=== PATIENT | male | born 1970 | race Caucasian/White ===

== ENCOUNTER 2023-03-24 10:05 | Emergency (ER) | payer SELFPAY ==
[2023-03-24 10:15] VITALS: BP 170/81; PULSE 71; RESP 18; TEMP 36.8; O2SAT 99; BMI 37.1
--- NOTE | 2023-03-24 10:29 | ED.ABDPAIN1 ---
HPI - Abdominal Pain General Chief Complaint: Abdominal Pain Stated Complaint: ABDOMINAL PAIN Time Seen by Provider: 03/24/23 10:21 Source: patient Mode of arrival: walk-in History of Present Illness HPI narrative: this patient's here complaining of abdominal pain. He said he he's had it off and on for the last two days. He said the ride over here was uncomfortable but is sitting here in the Emergency Room he says he doesn't have any discomfort at all. He has not taken any analgesics prior to arrival here. He is not running a fever. 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 In the past he said he's been on B12 and thyroid medicines. He no longer has a primary care doctor. He has not seen blood in his stools in his stools are not black. He is not having any urinary problems as a burning frequency urgency or dysuria or hematuria. The discomfort has been be in the suprapubic and a little bit on the left lower quadrant. He's never had CT scan or colonoscopy. He has no history of diverticular disease. Related Data Home Medications Medication Instructions Recorded Confirmed No Known Home Medications 03/24/23 03/24/23 Allergies Allergy/AdvReac Type Severity Reaction Status Date / Time No Known Drug Allergies Allergy Verified 03/24/23 10:14 Exam Constitutional Vital Signs, click to edit/add: Last Vital Signs Temp 98.3 F 03/24/23 10:15 Pulse 71 03/24/23 10:15 Resp 18 03/24/23 10:15 BP 170/81 H 03/24/23 10:15 Pulse Ox 99 03/24/23 10:15 Course Vital Signs Vital signs: Vital Signs Temperature 98.3 F 03/24/23 10:15 Pulse Rate 71 03/24/23 10:15 Respiratory Rate 18 03/24/23 10:15 Blood Pressure 170/81 H 03/24/23 10:15 Pulse Oximetry 99 03/24/23 10:15 Temperature 98.3 F 03/24/23 10:15 Pulse Rate 71 03/24/23 10:15 Respiratory Rate 18 03/24/23 10:15 Blood Pressure 170/81 H 03/24/23 10:15 Pulse Oximetry 99 03/24/23 10:15 MDM - Abdominal Pain MDM Narrative Medical decision making narrative: patient's lab indicate white blood cell count at the upper limits of normal. His thyroid-stimulating hormone is substantially elevated. I emphasized the importance of him following up with a local primary care practitioner. I will start him on low-dose Synthroid. I believe his clinical diagnosis today is early diverticular disease. I do not believe he needs any imaging at this time since his exam was benign and quite frankly when he was here he did not have any pain. He was advised to be on a clear fluid diet for forty-eight hours Discharge Plan Discharge Chief Complaint: Abdominal Pain Clinical Impression: Abdominal pain Patient Disposition: Home, Self-Care Time of Disposition Decision: 11:57 Prescriptions / Home Meds: No Action No Known Home Medications Additional Instructions: Cipro/Flagyl/clear fluids forty-eight hours. Synthroid. Follow-up with primary care practitioner Stand Alone Forms: Portal Instructions Referrals: Physician,Non-Staff, MD [Primary Care Provider] - 1 week
[2023-03-24 11:00] LABS: Basophils Absolute Auto 0.1 10^3/uL (0.0-0.1); Basophils Percent Auto 0.6 % (0.2-2.0); Eosinophils Absolute Auto 0.2 10^3/uL (0.0-0.7); Eosinophils Percent Auto 1.8 % (0.9-7.0); Hematocrit 38.1 % (42.0-54.0); Hemoglobin 12.6 g/dL (14.0-18.0); Immature Granulocytes Abs Auto 0.04 10^3/uL (0.00-0.03); Immature Granulocytes Pct Auto 0.3 % (0.0-0.5); Lymphocytes Absolute Auto 2.1 10^3/uL (1.2-3.8); Lymphocytes Percent Auto 17.1 % (20.5-60.0); Mean Corpuscular HGB Conc 33.1 g/dL (29.9-35.2); Mean Corpuscular Hemoglobin 33.6 pg (25.9-34.0); Mean Corpuscular Volume 101.6 fL (80.0-94.0); Mean Platelet Volume 10.4 fL (9.5-13.5); Monocytes Absolute Auto 0.8 10^3/uL (0.3-0.8); Monocytes Percent Auto 6.9 % (1.7-12.0); Neutrophils Absolute Auto 8.9 10^3/uL (1.4-6.5); Neutrophils Percent Auto 73.3 % (43.0-75.0); Platelet Count 205 10^3/uL (150-450); Red Blood Count 3.75 10^6/uL (4.70-6.10); Red Cell Distribution Width 13.8 % (11.0-15.0); White Blood Count 12.1 10^3/uL (4.0-11.0)
[2023-03-24 12:08] LABS: Bilirubin Urine NEGATIVE (NEGATIVE); Blood Urine NEGATIVE (NEGATIVE); Clarity Urine CLEAR (CLEAR); Color Urine LT. YELLOW (YELLOW); Glucose Urine UA NEGATIVE (NEGATIVE); Ketones Urine NEGATIVE (NEGATIVE); Leukocyte Esterase Urine NEGATIVE (NEGATIVE); Nitrite Urine NEGATIVE (NEGATIVE); Protein Urine TRACE mg/dL (NEG/TRACE); Specific Gravity Urine 1.015 (1.005-1.025); Urobilinogen Urine 0.2 EU/dL (0.2-1.0); pH Urine 7.5 (5.0-9.0)
[2023-03-24 12:17] LABS: Urine Microscopic Indicated NO
== END 2023-03-24 12:04 | disposition home or self-care (01) ==
PROVIDERS: Emergency Provider Emergency Medicine Emergency Medical Services
DX: R10.9 Unspecified abdominal pain (principal)
CPT/HCPCS: 36415; 81003; 84443; 85025; 99283

== ENCOUNTER 2023-04-16 09:51 | Outpatient (OUT) | payer OTHER, SELFPAY ==
--- OUTSIDE RECORDS SUMMARY | 2023-04-16 09:58 | XMS_ITS | CCD ---
Author Name Unknown Address [address] [place] [address] Organization [facility] Care Team Providers Care Order Picker/Assembler Name Role Phone NADERER, LUIS ANTONIO A Unavailable Unavailable NADERER, LUIS ANTONIO A Unavailable Unavailable NADERER, LUIS ANTONIO A Unavailable Unavailable NADERER, LUIS ANTONIO A Unavailable Unavailable NADERER, LUIS ANTONIO A Unavailable Unavailable NADERER, LUIS ANTONIO A Unavailable Unavailable NADERER, LUIS ANTONIO A Unavailable Unavailable NADERER, LUIS ANTONIO A Unavailable Unavailable NADERER, LUIS ANTONIO A Unavailable Unavailable NADERER, LUIS ANTONIO A Unavailable Unavailable NADERER, LUIS ANTONIO A Unavailable Unavailable NADERER, LUIS ANTONIO A Unavailable Unavailable NADERER, LUIS ANTONIO A Unavailable Unavailable NADERER, LUIS ANTONIO A Unavailable Unavailable NADERER, LUIS ANTONIO A Unavailable Unavailable Problems Active Problems Problem Classification Problem Date Documented Da te Episodic/Chronic Malaise and fatigue (4 sources) Other fatigue; Translations: [OTHER FATIGUE] Onset: 01-02-2018 Episodic Residual codes; unclassified (1 source) Idiopathic hypersomnia with long sleep time; Translations: [IDIO HYPERSOMNIA W/LONG SLEEP TIME] Onset: 10-03-2017 Chronic Residual codes; unclassified (4 sources) Obstructive sleep apnea (adult) (pediatric); Translations: [OBSTRUCTIVE SLEEP APNEA] Onset: 10-26-2017 Chronic Thyroid disorders (5 sources) Hypothyroidism, unspecified; Translations: [HYPOTHYROIDISM UNSPECIFIED] Onset: 01-10-2018 Chronic Past or Other Problems Problem Classification Problem Date Documented Da te Episodic/Chronic Other screening for suspected conditions (not mental disorders or infectious disease) (1 source) Encounter for screening for malignant neoplasm of prostate; Translations: [ENC SCREEN MALIG NEOPLASM PROSTATE] Onset: 09-15-2017 Episodic Results Test Name Value Interpretation Reference Range Facil ity FREE T3on 03-15-2018 T3 free mass conc 3.10 pg/mL Normal 2.77-5.27 [facility] Comment on above: Performed By: #### B MP, LIVER, FT3, LIPID, PSASC, TSH, DLDL ####[facility] Jvntgojvto74[address] [place] FREE T4on 03-15-2018 T4 free mass conc 0.88 ng/dL Normal 0.78-2.19 [facility] Comment on above: Performed By: #### B MP, LIVER, FT3, LIPID, PSASC, TSH, DLDL ####[facility] Dwidblpsti9258 [address] [place] TSHon 03-15-2018 Thyrotropin Qn 7.705 uIU/mL Critically high 0.470-4.680 Th e [facility] Comment on above: Performed By: #### B MP, LIVER, FT3, LIPID, PSASC, TSH, DLDL ####[facility] Xwrmshyckd6188 [address] Thyrotropin Qn SEE BELOW Normal [facility] Comment on above: Result Comment: <0.3 4 UIU/ml HYPERTHYROID 0.34-5.60 UIU/ml EUTHYROID >5.60 UIU/ml HYPOTHYROID Performed By: #### B MP, LIVER, FT3, LIPID, PSASC, TSH, DLDL ####[facility] Ghkmtpqmyk1724 [address] [place] TESTOSTERONE, TOTALon 2017 Testosterone [Mass/volume] in Serum or Plasma 314 ng/dL Normal 264-916 [facility] Comment on above: Result Comment: Adul t male reference interval is based on a population ofhealthy nonobese males (BMI <30) between 19 and 39 years old.Mildred et.al. JCEM 2017,102;9576-1057. PMID: [id number]. Performed By: #### B MP, LIVER, FT3, LIPID, PSASC, TSH, DLDL ####[facility] Idjnodjnje2290 [address] [place] FREE T3on 01-02-2018 T3 free mass conc 2.98 pg/mL Normal 2.77-5.27 [facility] Comment on above: Performed By: #### B MP, LIVER, FT3, LIPID, PSASC, TSH, DLDL ####[facility] Iosidlvqqu9863 [address] [place] FREE T4on 01-02-2018 T4 free mass conc 0.89 ng/dL Normal 0.78-2.19 [facility] Comment on above: Performed By: #### B MP, LIVER, FT3, LIPID, PSASC, TSH, DLDL ####[facility] Xjfdvtxopu0350 [address] [place] TSHon 01-02-2018 Thyrotropin Qn 5.999 uIU/mL Critically high 0.470-4.680 Th e [facility] Comment on above: Performed By: #### B MP, LIVER, FT3, LIPID, PSASC, TSH, DLDL ####[facility] [address] [place] [address] [place] Thyrotropin Qn SEE BELOW Normal [facility] Comment on above: Result Comment: <0.3 4 UIU/ml HYPERTHYROID 0.34-5.60 UIU/ml EUTHYROID >5.60 UIU/ml HYPOTHYROID Performed By: #### B MP, LIVER, FT3, LIPID, PSASC, TSH, DLDL ####[facility] [address] [place] [address] [place] CBC AUTO DIFFon 09-14-2017 Basophils Auto #/vol (Bld) 0.1 103/ul Normal 0.0-0.1 [facility] Comment on above: Performed By: #### C BC ####[facility] [address] [place] [address] [place] Basophils/100 WBC Auto (Bld) 0.8 % Normal 0.2-2.0 [facility] Comment on above: Performed By: #### C BC ####[facility] [address] [place] [address] [place] Eosinophils Auto #/vol (Bld) 0.1 103/ul Normal 0.0-0.7 [facility] Comment on above: Performed By: #### C BC ####[facility] Feklerbeze[address] [place] [id number] Eosinophils/100 WBC Auto (Bld) 1.4 % Normal 0.9-7.0 The [facility] Comment on above: Performed By: #### C BC ####[facility] [address] [place], [place] [address] Erythrocyte distribution width Auto Ratio (RBC) 13.2 % Normal 11.0-15.0 The [facility] Comment on above: Performed By: #### C BC ####[facility] Zrigx[address]edb[address] [place], [place] [address] Hematocrit Auto Volume Fraction (Bld) 43.7 % Normal 42.0-54.0 [facility] Comment on above: Performed By: #### C BC ####[facility] Whgkdvdqoc[address] [place], [place] [address] Hemoglobin mass conc (Bld) 15.2 g/dL Normal 14.0-18.0 The [facility] Comment on above: Performed By: #### C BC ####[facility] M[address]fh[address]zl[address] [place], [place] [address] IG # 0.05 10e3/ul Critically high 0.00-0.03 [facility] Comment on above: Performed By: #### C BC ####[facility] Lw[address]fsx[address] [place], [place] [address] IG % 0.7 % Critically high 0.0-0.5 [facility] Comment on above: Performed By: #### C BC ####[facility] Izkolakhyd[address] [place], [place] [address] Lymphocytes Auto #/vol (Bld) 1.7 103/ul Normal 1.2-3.8 The [facility] Comment on above: Performed By: #### C BC ####[facility] Vp[address]az[address]jx[address] [place], [place] [address] Lymphocytes/100 WBC Auto (Bld) 23.7 % Normal 20.5-60.0 The [facility] Comment on above: Performed By: #### C BC ####[facility] Zrlzcodqfi4268 [place] [id number] MANUAL DIFF REQ NO Normal [facility] Comment on above: Performed By: #### C BC ####[facility] Ypqldwpmnz4323 [place] [id number] MCH Auto Entitic mass (RBC) 33.8 pg Normal 25.9-34.0 The [facility] Comment on above: Performed By: #### C BC ####[facility] Lvaan[address] [place], [place] [address] MCHC Auto mass conc (RBC) 34.8 g/dL Normal 29.9-35.2 The [facility] Comment on above: Performed By: #### C BC ####[facility] Q[address]em[address] [place], [place] [address] MCV Auto Entitic volume (RBC) 97.1 fL Critically high 80.0-94.0 The [facility] Comment on above: Performed By: #### C BC ####[facility] Cq[address]cu[address] [place], [place] [address] Monocytes Auto #/vol (Bld) 0.5 103/ul Normal 0.3-0.8 The [facility] Comment on above: Performed By: #### C BC ####[facility] Y[address] [place], [place] [address] Monocytes/100 WBC Auto (Bld) 7.0 % Normal 1.7-12.0 The [facility] Comment on above: Performed By: #### C BC ####[facility] Xxexxfdfks[address] [place], [place] [address] Neutrophils Auto #/vol (Bld) 4.7 103/ul Normal 1.4-6.5 The [facility] Comment on above: Performed By: #### C BC ####[facility] Qtw[address]ix[address] [place], [place] [address] Neutrophils/100 WBC Auto (Bld) 66.4 % Normal 43.0-75.0 The [facility] Comment on above: Performed By: #### C BC ####[facility] Nsdcvqxqbb6996 [place], [place] [address]Eufpuy [place] Platelet mean volume Auto Entitic volume (Bld) 10.7 fL Normal 9.5-13.5 The [facility] Comment on above: Performed By: #### C BC ####[facility] Mvomeinyeg2677 [place], [place] [address]Qyaouf [place] Platelets Auto #/vol (Bld) 223 103/ul Normal 150-450 The [facility] Comment on above: Performed By: #### C BC ####[facility] Armeqfsoxg1387 [place], [place] [address]Njcnun [place] RBC Auto #/vol (Bld) 4.50 106/ul Critically low 4.70-6.10 The [facility] Comment on above: Performed By: #### C BC ####[facility] [address] [place] [address]Rcpzzi [place] WBC Auto #/vol (Bld) 7.1 103/ul Normal 4.0-11.0 [facility] Comment on above: Performed By: #### C BC ####[facility] Vnvprwbjnu4130 [place], [place] [address]Lszbgs [place] DIRECT LDLon 09-14-2017 Cholesterol in LDL mass conc SEE BELOW Normal The [facility] Comment on above: Result Comment: <100 mg/dl OPTIMAL 100 - 129 mg/dl NEAR OR ABOVE OPTIMAL 130 - 159 mg/dl BORDERLINE HIGH 160 - 189 mg/dl HIGH >190 mg/dl VERY HIGH Performed By: #### B MP, LIVER, FT3, LIPID, PSASC, TSH, DLDL ####[facility] Idzwuhhuip6030 [place], [place] [address]Kkphvb [place] Cholesterol in LDL mass conc 45 mg/dL Normal The [facility] Comment on above: Performed By: #### B MP, LIVER, FT3, LIPID, PSASC, TSH, DLDL ####[facility] Mjbcblsuve3332 [place], [place] [address]Refabl [place] FREE T3on 09-14-2017 T3 free mass conc 4.33 pg/mL Normal 2.77-5.27 [facility] Comment on above: Performed By: #### B MP, LIVER, FT3, LIPID, PSASC, TSH, DLDL ####[facility] Qvbjurwlye1062 [address] [place] FREE T4on 09-14-2017 T4 free mass conc 0.67 ng/dL Critically low 0.78-2.19 [facility] Comment on above: Performed By: #### F T4 ####[facility] Ubzvftvhpv4325 [address] [place] GLYCOHEMOGLOBIN A1Con 2017 Glucose mass conc 108 mg/dL Normal [facility] Comment on above: Performed By: #### A 1C ####[facility] Uqpsmbxxqh4[address] Hemoglobin A1c/Hemoglobin.total mass fraction (Bld) 5.4 % Normal <=6.0 [facility] Comment on above: Performed By: #### A 1C ####[facility] [address] [place] [address] [place] LIPID PROFILEon 09-14-2017 CHOL-HDL RATIO NORM SEE BELOW Normal [facility] Comment on above: Result Comment: 3.3 - 4.4 LOW RISK 4.4 - 7.1 AVERAGE RISK 7.1 - 11.0 MODERATE RISK >11.0 HIGH RISK Performed By: #### B MP, LIVER, FT3, LIPID, PSASC, TSH, DLDL ####[facility] Ytmqtmyyuf4834 [address] [place] Cholesterol in HDL mass conc 34 mg/dL Normal [facility] Comment on above: Result Comment: A po sitive bias may be seen with a triglyceride level over 600 mg/dL Performed By: #### B MP, LIVER, FT3, LIPID, PSASC, TSH, DLDL ####[facility] Anxgthhwkt0899 [address] [place] Cholesterol in HDL mass conc > or = 60 mg/dl - LOW CARDIOVASCULAR RISK <40 mg/dl - HIGH CARDIOVASCULAR RISK Normal [facility] Comment on above: Performed By: #### B MP, LIVER, FT3, LIPID, PSASC, TSH, DLDL ####[facility] Qqihounggm2386 [place] [id number] Cholesterol mass conc 199 mg/dL Normal <=200 The [facility] Comment on above: Performed By: #### B MP, LIVER, FT3, LIPID, PSASC, TSH, DLDL ####[facility] Ftdthztxyb9668 [place] [id number] Cholesterol.total/Cho lesterol in HDL mass ratio 6.0 {ratio} Normal [facility] Comment on above: Performed By: #### B MP, LIVER, FT3, LIPID, PSASC, TSH, DLDL ####[facility] Tysigmkvgk6811 [address] [place] Triglyceride mass conc 1177 mg/dL Critically high <=150 The [facility] Comment on above: Performed By: #### B MP, LIVER, FT3, LIPID, PSASC, TSH, DLDL ####[facility] Qzuydhyhra4011 [address] [place] LIVER PROFILEon 09-14-2017 Albumin mass conc 4.6 g/dL Normal 3.5-5.0 [facility] Comment on above: Performed By: #### B MP, LIVER, FT3, LIPID, PSASC, TSH, DLDL ####[facility] Elcppmvnal2888 [address] [place] Albumin/Globulin mass ratio 1.5 {ratio} Normal [facility] Comment on above: Performed By: #### B MP, LIVER, FT3, LIPID, PSASC, TSH, DLDL ####[facility] Bivnzjgavk3171 [address] [place] ALP enzyme act/vol 66 U/L Normal 38-126 The [facility] Comment on above: Performed By: #### B MP, LIVER, FT3, LIPID, PSASC, TSH, DLDL ####[facility] Oojytegcxc2033 [address] [place] ALT enzyme act/vol 66 U/L Normal 21-72 [facility] Comment on above: Performed By: #### B MP, LIVER, FT3, LIPID, PSASC, TSH, DLDL ####[facility] Zzuaygucie7285 [address] [place] AST enzyme act/vol 48 U/L Normal 17-59 The [facility] Comment on above: Performed By: #### B MP, LIVER, FT3, LIPID, PSASC, TSH, DLDL ####[facility] Wrwawqvtmg4670 [address] [place] BILI, CONJUGATED 0.0 mg/dL Normal 0.0-0.3 The [facility] Comment on above: Performed By: #### B MP, LIVER, FT3, LIPID, PSASC, TSH, DLDL ####[facility] Kpoegkwweg6571 [address] [place] Bilirubin Ql (U) 0.3 mg/dL Normal 0.2-1.3 The [facility] Comment on above: Performed By: #### B MP, LIVER, FT3, LIPID, PSASC, TSH, DLDL ####[facility] Owxkhmzweq1948 [address] [place] Globulin Calculated mass conc (S) 3.1 g/dL Normal [facility] Comment on above: Performed By: #### B MP, LIVER, FT3, LIPID, PSASC, TSH, DLDL ####[facility] Jgyqhxouek1293 [address] [place] Protein mass conc 7.7 g/dL Normal 6.1-8.2 [facility] Comment on above: Performed By: #### B MP, LIVER, FT3, LIPID, PSASC, TSH, DLDL ####[facility] Izlroivhqj8893 [address] [place] PROF CHEM 8 (BAS METB)on Anion gap 3 molar conc 10.0 mmol/L Normal [facility] Comment on above: Performed By: #### B MP, LIVER, FT3, LIPID, PSASC, TSH, DLDL ####[facility] Apwtmzurky9392 [address] [place] Calcium mass conc 9.6 mg/dL Normal 8.4-10.2 [facility] Comment on above: Performed By: #### B MP, LIVER, FT3, LIPID, PSASC, TSH, DLDL ####[facility] Pshmdvajfa2300 [address] [place] Chloride molar conc 104 mmol/L Normal 98-107 [facility] Comment on above: Performed By: #### B MP, LIVER, FT3, LIPID, PSASC, TSH, DLDL ####[facility] Obaimbengc8024 [address] [place] CO2 molar conc 25.0 mmol/L Normal 22.0-30.0 [facility] Comment on above: Performed By: #### B MP, LIVER, FT3, LIPID, PSASC, TSH, DLDL ####[facility] Rhrrzgsbrj7660 [address] [place] Creatinine mass conc 0.96 mg/dL Normal 0.66-1.25 The [facility] Comment on above: Performed By: #### B MP, LIVER, FT3, LIPID, PSASC, TSH, DLDL ####[facility] Ykcovhnsty9665 [address] [place] EGFR-AF LITHUANIAN >60 Normal >=60 The [facility] Comment on above: Performed By: #### B MP, LIVER, FT3, LIPID, PSASC, TSH, DLDL ####[facility] Aawgmjxtdn1770 [address] [place] EGFR-NON AF LITHUANIAN >60 Normal >=60 [facility] Comment on above: Performed By: #### B MP, LIVER, FT3, LIPID, PSASC, TSH, DLDL ####[facility] Ahhvpxrjmr9219 [address] [place] Glucose mass conc 97 mg/dL Normal 74-106 [facility] Comment on above: Performed By: #### B MP, LIVER, FT3, LIPID, PSASC, TSH, DLDL ####[facility] Rsasqzgbbs5222 [address] [place] Potassium molar conc 4.2 mmol/L Normal 3.4-5.0 [facility] Comment on above: Performed By: #### B MP, LIVER, FT3, LIPID, PSASC, TSH, DLDL ####[facility] Qvfwkxrkch0541 [place], [place] [address]RgnuykArpit Colindres Sodium molar conc 135 mmol/L Critically low 137-145 [facility] Comment on above: Performed By: #### B MP, LIVER, FT3, LIPID, PSASC, TSH, DLDL ####[facility] Tzveunhltw8748 [place] [id number] Marroquinen Urea nitrogen mass conc 14.0 mg/dL Normal 9.0-20.0 [facility] Comment on above: Performed By: #### B MP, LIVER, FT3, LIPID, PSASC, TSH, DLDL ####[facility] Gsdnfnbvai1285 [place] [address] [place] Urea nitrogen/Creatinine mass ratio 14.8 mg/mg Normal [facility] Comment on above: Performed By: #### B MP, LIVER, FT3, LIPID, PSASC, TSH, DLDL ####[facility] Rsascmgibj8441 [place], [place] [address]IdjxmaArpit Colindres TSHon 09-14-2017 Thyrotropin Qn SEE BELOW Normal [facility] Comment on above: Result Comment: <0.3 4 UIU/ml HYPERTHYROID 0.34-5.60 UIU/ml EUTHYROID >5.60 UIU/ml HYPOTHYROID Performed By: #### B MP, LIVER, FT3, LIPID, PSASC, TSH, DLDL ####[facility] Feaglonwod3307 [place], [place] [address]Xfancm [place] Thyrotropin Qn 6.140 uIU/mL Critically high 0.470-4.680 Th e [facility] Comment on above: Performed By: #### B MP, LIVER, FT3, LIPID, PSASC, TSH, DLDL ####[facility] Vzihvibswh8187 [place], [place] [address]NrulpkArpit Colindres Encounters Encounter Date Encounter Type Care Provider Facility Start: 03-15-2018 End: 03-16-2018 Patient encounter procedure LUIS ANTONIO HERNANDEZ Facility:[facility]1 Start: 01-02-2018 End: 01-03-2018 [facility] Start: 10-26-2017 End: 10-27-2017 Patient encounter procedure LUIS ANTONIO HERNANDEZ Facility:[facility] Start: 09-27-2017 End: 09-28-2017 Patient encounter [facility] Start: 09-15-2017 Encounter for genera l adult medical examination without abnormal findings [facility] Start: 09-14-2017 End: 09-15-2017 Patient [facility] Encounter for genera l adult medical examination without abnormal findings LUIS ANTONIO [facility] Procedures Date Procedure Procedure Detail Performing Clinician Start: 09-14-2017 PSA screening LUIS ANTONIO MEGAN JOJO Comment on above: Performed By: #### B MP, LIVER, FT3, LIPID, PSASC, TSH, DLDL ####[facility] [address]azuybdlp[address] [place], [place] [address] [place] [address] Payers Date Payer Category Payer Unknown [id number] [id number] [id number] 1970 Unknown [id number] .16.84 [id number] 1970 Unknown [id number] .16.84 [id number] 1970 Unknown [id number] .16.84 [id number] 1970 Unknown [id number] .16.84 [id number] 1959 Unknown [id number] Summary Purpose Family History No Family History Records Found Advance Directives No Advanced Directives Records Found Additional Source Comments (unrecognized sect ion and content) No Status Records Found INFORMATION SOURCE (unrecogn ized section and content) DATE CREATED AUTHOR 03/21/2018 The [facility] FOR RECORDS PERTAINING TO PATIENTS WHO ARE OR HAVE BEEN ENROLLED IN A CHEMICAL DEPENDENCY/SUBSTANCEABUSE PROGRAM, SOME INFORMATION MAY BE OMITTED. This clinical summary was aggregated from multiple sources. Caution should be exercised in using it in the provision of clinical care. This summary normalizes information from multiple sources, and as a consequence, information in this document may materially change the coding, format and clinical context of patient data. In addition, data may be omitted in some cases. CLINICAL DECISIONS SHOULD BE BASED ON THE PRIMARY CLINICAL RECORDS. [facility] [employer] [facility]. provides no warranty or guarantee of the accuracy or completeness of information in this document.
[2023-04-16 10:19] LABS: Basophils Absolute Auto 0.1 10^3/uL (0.0-0.1); Basophils Percent Auto 1.2 % (0.2-2.0); Eosinophils Absolute Auto 0.1 10^3/uL (0.0-0.7); Eosinophils Percent Auto 2.8 % (0.9-7.0); Hematocrit 40.4 % (42.0-54.0); Hemoglobin 13.5 g/dL (14.0-18.0); Immature Granulocytes Abs Auto 0.01 10^3/uL (0.00-0.03); Immature Granulocytes Pct Auto 0.2 % (0.0-0.5); Lymphocytes Absolute Auto 1.6 10^3/uL (1.2-3.8); Lymphocytes Percent Auto 30.8 % (20.5-60.0); Mean Corpuscular HGB Conc 33.4 g/dL (29.9-35.2); Mean Corpuscular Volume 98.8 fL (80.0-94.0); Mean Platelet Volume 10.3 fL (9.5-13.5); Monocytes Absolute Auto 0.4 10^3/uL (0.3-0.8); Monocytes Percent Auto 7.1 % (1.7-12.0); Neutrophils Percent Auto 57.9 % (43.0-75.0); Platelet Count 205 10^3/uL (150-450); Red Blood Count 4.09 10^6/uL (4.70-6.10); Red Cell Distribution Width 13.2 % (11.0-15.0); White Blood Count 5.1 10^3/uL (4.0-11.0)
[2023-04-16 11:59] LABS: Alanine Aminotransferase 49 U/L (16-63); Albumin Globulin Ratio 1.1; Albumin Level 4.1 g/dL (3.4-5.0); Alkaline Phosphatase 49 U/L (46-116); Anion Gap 9.7; Aspartate Amino Transferase 33 U/L (15-37); BUN Creatinine Ratio 14.6; Bilirubin Total 0.5 mg/dL (0.2-1.0); Calcium 9.7 mg/dL (8.5-10.1); Carbon Dioxide 27.2 mmol/L (21.0-32.0); Chloride 100 mmol/L (98-107); Chol HDL Ratio 5.2; Cholesterol 177 mg/dL (<=200); Estimated GFR (African America >60 (>=60); Estimated GFR (Non-African Ame >60 (>=60); Globulin 3.9 g/dL; Glucose 124 mg/dL (74-106); HDL Cholesterol 34 mg/dL (40-60); Potassium 3.9 mmol/L (3.5-5.1); Sodium 133 mmol/L (136-145); Thyroid Stimulating Hormone 13.088 uIU/mL (0.358-3.740); Triglycerides 555 mg/dL (<=150); Uric Acid 6.8 mg/dL (3.5-7.2)
[2023-04-16 12:14] LABS: Estimated Average Glucose 123 mg/dL; Glycohemoglobin A1C 5.9 % (4.5-6.2)
[2023-04-16 12:18] LABS: LDL Cholesterol Direct 55 mg/dL
[2023-04-16 12:34] LABS: Prostate Specific Antigen Scrn 0.33 ng/mL (<=4.00)
[2023-04-17 13:07] LABS: Insulin 16.9 uIU/mL (2.6-24.9)
== END 2023-04-16 09:52 | disposition home or self-care (01) ==
LOC: LAB 09:56
PROVIDERS: PCP Nurse Practitioner Family; Visit Provider Nurse Practitioner Family
DX: Z00.00 Encounter for general adult medical examination without abnormal findings (principal)
CPT/HCPCS: 36415; 80053; 80061; 82306; 82607; 83036; 83525; 83721; 84436; 84443; 84481; 84550; 85025; G0103

== ENCOUNTER 2024-04-17 10:18 | Outpatient (OUT) | payer OTHER, SELFPAY ==
[2024-04-17 10:30] LABS: Estimated Average Glucose 128 mg/dL; Glycohemoglobin A1C 6.1 % (4.5-6.2)
--- NOTE | 2024-04-17 10:35 | XR_ITS ---
The [address] [address] Patient Name: TATE ENCARNACION MRN: [id number] date: 1970 Sex: M Assigned Patient Location: LAB Current Patient Location: LAB Accession/Order Number: [id number] Exam Date: 04/17/2024 10:25 Report Date: 04/17/2024 15:32 At the request of: NEW [place] Procedure: XR hand RT min 3V EXAM: XR knee LT 3V, XR hand RT min 3V. HISTORY: Left knee pain. COMPARISON: None. TECHNIQUE: Routine views were obtained for left knee and right hand. FINDINGS/IMPRESSION: Left knee: 1. No acute fracture or subluxation. 2. There is mild fragmentation of the tibial tubercle. 3. Mild soft tissue swelling is seen anterior to the patella. Right hand: 1. There is moderate polyarticular osteoarthritis seen at the radiocarpal, first carpometacarpal, metacarpophalangeal and the interphalangeal joints. 2. No acute fracture or subluxation is seen. 3. There are no obvious erosive changes. Electronically authenticated by: MIKEY QUIÑONES Date: 04/17/2024 15:32
--- NOTE | 2024-04-17 10:35 | XR_ITS ---
The [address] [address] Patient Name: TATE ENCARNACION MRN: [id number] date: 1970 Sex: M Assigned Patient Location: LAB Current Patient Location: LAB Accession/Order Number: [id number] Exam Date: 04/17/2024 10:25 Report Date: 04/17/2024 15:32 At the request of: NEW GARRISON Procedure: XR knee LT 3V EXAM: XR knee LT 3V, XR hand RT min 3V. HISTORY: Left knee pain. COMPARISON: None. TECHNIQUE: Routine views were obtained for left knee and right hand. FINDINGS/IMPRESSION: Left knee: 1. No acute fracture or subluxation. 2. There is mild fragmentation of the tibial tubercle. 3. Mild soft tissue swelling is seen anterior to the patella. Right hand: 1. There is moderate polyarticular osteoarthritis seen at the radiocarpal, first carpometacarpal, metacarpophalangeal and the interphalangeal joints. 2. No acute fracture or subluxation is seen. 3. There are no obvious erosive changes. Electronically authenticated by: MIKEY QUIÑONES Date: 04/17/2024 15:32
[2024-04-17 10:38] LABS: Basophils Absolute Auto 0.1 10^3/uL (0.0-0.1); Basophils Percent Auto 0.9 % (0.2-2.0); Eosinophils Absolute Auto 0.2 10^3/uL (0.0-0.7); Eosinophils Percent Auto 3.5 % (0.9-7.0); Hematocrit 40.6 % (42.0-54.0); Hemoglobin 15.2 g/dL (14.0-18.0); Immature Granulocytes Abs Auto 0.01 10^3/uL (0.00-0.03); Immature Granulocytes Pct Auto 0.2 % (0.0-0.5); Lymphocytes Absolute Auto 1.7 10^3/uL (1.2-3.8); Lymphocytes Percent Auto 29.4 % (20.5-60.0); Mean Corpuscular HGB Conc 37.4 g/dL (29.9-35.2); Mean Corpuscular Hemoglobin 37.3 pg (25.9-34.0); Mean Corpuscular Volume 99.5 fL (80.0-94.0); Mean Platelet Volume 10.3 fL (9.5-13.5); Monocytes Absolute Auto 0.4 10^3/uL (0.3-0.8); Monocytes Percent Auto 6.6 % (1.7-12.0); Neutrophils Absolute Auto 3.5 10^3/uL (1.4-6.5); Neutrophils Percent Auto 59.4 % (43.0-75.0); Platelet Count 232 10^3/uL (150-450); Red Blood Count 4.08 10^6/uL (4.70-6.10); White Blood Count 5.8 10^3/uL (4.0-11.0)
[2024-04-17 11:18] LABS: Prostate Specific Antigen Scrn 0.22 ng/mL (<=4.00)
[2024-04-17 11:50] LABS: Cholesterol 301 mg/dL (<=200); Free T3 2.15 pg/mL (2.18-3.98); HDL Cholesterol 27 mg/dL (40-60); Thyroid Stimulating Hormone 27.573 uIU/mL (0.358-3.740); Triglycerides 3317 mg/dL (<=150); VLDL CHOLESTEROL 663.4 mg/dL
[2024-04-17 11:56] LABS: Chol HDL Ratio 11.1
[2024-04-17 11:57] LABS: LDL Cholesterol Direct 49 mg/dL
[2024-04-18 04:08] LABS: Vitamin B12 606 pg/mL (232-1245)
[2024-04-18 08:09] LABS: Insulin 15.6 uIU/mL (2.6-24.9)
== END 2024-04-17 10:19 | disposition home or self-care (01) ==
LOC: LAB 10:18
PROVIDERS: PCP Nurse Practitioner Family; Visit Provider Nurse Practitioner Family
DX: Z00.00 Encounter for general adult medical examination without abnormal findings (principal); M79.641 Pain in right hand; M25.562 Pain in left knee; M25.462 Effusion, left knee; M19.041 Primary osteoarthritis, right hand; E78.5 Hyperlipidemia, unspecified
CPT/HCPCS: 36415; 73130; 73562; 80053; 80061; 82306; 82607; 83036; 83525; 83540; 83721; 84436; 84443; 84481; 84550; 85025; G0103

== ENCOUNTER 2024-04-18 11:09 | Outpatient (REF) | payer OTHER, SELFPAY ==
[2024-04-18 14:23] LABS: Internal Control Within Normal Limits; Occult Blood Negative
== END 2024-04-18 11:10 | disposition home or self-care (01) ==
LOC: LAB 11:09
PROVIDERS: PCP Nurse Practitioner Family; Visit Provider Nurse Practitioner Family
DX: Z00.00 Encounter for general adult medical examination without abnormal findings (principal)
CPT/HCPCS: G0328

== ENCOUNTER 2024-05-08 08:45 | Outpatient (OUT) | payer OTHER, SELFPAY ==
--- NOTE | 2024-05-08 08:48 | MR_ITS ---
The [address] [address] Patient Name: TATE ENCARNACION MRN: [id number] date: 1970 Sex: M Assigned Patient Location: MRI Current Patient Location: MRI Accession/Order Number: [id number] Exam Date: 05/08/2024 09:00 Report Date: 05/08/2024 12:59 At the request of: NEW GARRISON Procedure: MR head/brain wo con EXAM: MR head/brain wo con HISTORY: Migraine COMPARISON: None. TECHNIQUE: Multiplanar multisequence MR imaging of the brain was performed without intravenous contrast. FINDINGS: Calvarium/skull base: No focal marrow replacing lesion suggestive of neoplasm. Partial bilateral mastoid effusions. Orbits: Grossly unremarkable. Paranasal sinuses: Imaged portions clear Brain: No restricted diffusion. No significant white matter disease. Cavum septum lucidum. Parenchymal volume is appropriate for patient's age. No mass effect, hemorrhage, or hydrocephalus. Grossly normal flow-related signal in the major intracranial arteries and dural sinuses. MR/MR head/brain wo con IMPRESSION: 1. No acute intracranial process. 2. Nonspecific partial bilateral mastoid effusions. Electronically authenticated by: EDUARDO GREEN Date: 05/08/2024 12:59
--- OUTSIDE RECORDS SUMMARY | 2024-05-08 08:55 | XMS_ITS | CCD ---
Author Organization [facility] CliniSyin Care Team Providers Care Order Processor Name Role Phone NADERER, LUIS ANTONIO A [...] Unavailable NADERER, LUIS ANTONIO A Unavailable Unavailable NEW GARRISON Primary Care Physician [phone] Alejandra Hayden Admitting Unavailable Mouchli Mohamad ADo Attending Unavailable Mouchli Mohamad A. Attending Unavailable Mouchli, Mohamad ADo Admitting Unavailable Mouchli, Mohamad ADo Admitting Unavailable Mouchli Mohamad A. Attending Unavailable González Sutton Attending Unavaila ble Teena Haydenamad A. Attending Unavailable Mouchli, Mohamad ADo Referring Unavailable Ji SIMON Attending Unavailable Mouchli Mohamad ADo Attending Unavailable Mouchli, Mohamad ADo Referring Unavailable Mouchli Mohamad ADo Admitting Unavailable Ji SIMON Attending Unavailable Allergies Allergy Classification Reported Allergen(s) Allergy Type Date of Onset Reaction(s) Facility (4 sources) No Known Medication Allergies; Translations: [No Known Medication Allergies] Propensity to adverse reactions (disorder) [facility] Repository Medications Current Medications Medication Drug Class(es) Dates Sig (Normalized) Sig (Original) cholestyramine resin 4000 mg powder for oral suspension (4 sources) Bile Acid Sequestrant Start: 04-24-2024 Questran 4 g/9 g oral powder = 1 packet(s), Oral, BID, # 60 EA, Refills(s) 0, Pharmacy: [facility], 170, cm, 04/24/24 8:57:00 EST, Height/Length Dosing, 108.6, kg, 04/24/24 8:57:00 EST, Weight Dosing Start Date: 04/24/24 Status: Ordered FLUoxetine 20 mg oral tablet (4 sources) Serotonin Reuptake Inhibitor Start: 04-24-2024 take 20 mg by mouth once daily Prozac 20 mg, Oral, Daily, Refills(s) 0 Start Date: 04/24/24 Status: Ordered icosapent ethyl 1000 mg oral capsule (4 sources) Start: 04-24-2024 take 1 capsule by mouth twice daily Vascepa 1 g oral capsule gm cap(s), Oral, BID, Refills(s) 0 Start Date: 04/24/24 Status: Ordered levothyroxine (4 sources) l-Thyroxine Start: 04-24-2024 levothyroxine Daily, Refills(s) 0 Start Date: 04/24/24 Status: Ordered Vitamin D3 50 mcg (2000 intl units) oral tablet, chewable (4 sources) Start: 04-24-2024 take 1 tablet by mouth once daily Vitamin D3 50 mcg (2000 intl units) oral tablet, chewable mcg tab(s), Oral, Daily, Refills(s) 0 Start Date: 04/24/24 Status: Ordered Problems Problem Classification Problem Date Documented Da te Episodic/Chronic Deficiency and other anemia (4 sources) Anemia of chronic disease 04-24-2024 Chronic Disorders of lipid metabolism (5 sources) Pure hyperglyceridemia; Translations: [Pure hyperglyceridemia] Onset: 5 Chronic Esophageal disorders (5 sources) Gastroesophageal reflux disease without esophagitis; Translations: [Gastro-esophageal reflux disease without esophagitis] Onset: 5 Chronic Essential hypertension (4 sources) Benign hypertension 04-24-2024 Chronic Gastrointestinal hemorrhage (1 source) Melena; Translations: [Melena] Onset: 5 Episodic Malaise and fatigue (4 sources) Other fatigue; Translations: [OTHER FATIGUE] Onset: 8 Episodic Miscellaneous mental health disorders (10 sources) Psychosomatic factor in physical condition; Translations: [Psychological and behavioral factors associated with disorders or diseases classified elsewhere] Onset: 5 Chronic Other gastrointestinal disorders (1 source) Irritable bowel syndrome with diarrhea; Translations: [Irritable bowel syndrome with diarrhea] Onset: 5 Chronic Other gastrointestinal disorders (1 source) Swollen abdomen; Translations: [Abdominal distension (gaseous)] Onset: 5 Episodic Other gastrointestinal disorders (4 sources) Abdominal bloating 04-24-2024 Episodic Other gastrointestinal disorders (4 sources) Black feces 04-24-2024 Episodic Other nutritional; endocrine; and metabolic disorders (1 source) Obesity; Translations: [Other obesity due to excess calories] Onset: 5 Chronic Other nutritional; endocrine; and metabolic disorders (4 sources) Obesity caused by energy imbalance 04-24-2024 Chronic Other screening for suspected conditions (not mental disorders or infectious disease) (5 sources) Encounter for screening for malignant neoplasm of prostate; Translations: [Thyroid function tests abnormal] Onset: 8 04-24-2024 Episodic Residual codes; unclassified (1 source) Idiopathic hypersomnia with long sleep time; Translations: [IDIO HYPERSOMNIA W/LONG SLEEP TIME] Onset: 8 Chronic Residual codes; unclassified (4 sources) Obstructive sleep apnea (adult) (pediatric); Translations: [OBSTRUCTIVE SLEEP APNEA] Onset: 8 Chronic Residual codes; unclassified (1 source) Patient encounter status; Translations: [Other specified health status] Onset: 5 Episodic Residual codes; unclassified (4 sources) Current drinker 04-24-2024 Episodic Thyroid disorders (5 sources) Hypothyroidism, unspecified; Translations: [HYPOTHYROIDISM UNSPECIFIED] Onset: 8 Chronic Results Test Name Value Interpretation Reference Range Facility Ambulatory Visit Summaryon 0 05-07-2024 Ambulatory Visit Summary Ambulatory Visit Summary KODY ENCARNACION :1970 Visit Date:05/07/2024 Ambulatory Visit Instructions Your Diagnosis ED (erectile dysfunction) Hypogonadism male Screening PSA (prostate specific antigen) BPH with urinary obstruction Acquired buried penis Your Care Team Attending Physician - AURORA ROMERO, Ji Be Primary Care Physician - NEW GARRISON CNP Referring Physician - Alejandra Hayden MD This Is Your Medications List tadalafil (tadalafil 20 mg Tab) testosterone (AndroGel Pump 20.25 mg/1.25 g (1.62%) transdermal gel) Contact prescribing physician if questions or concerns cholecalciferol (Vitamin D3 50 mcg (2000 intl units) oral tablet, chewable) cholestyramine (Questran 4 g/9 g oral powder) fluoxetine (Prozac) icosapent (Vascepa 1 g oral capsule) levothyroxine pancrelipase (Zenpep 60,000 units-189,600 units-252,600 units oral delayed release capsule) Discharge Vitals Heart Rate (Peripheral) 74 Respiratory Rate 16 Blood Pressure 164/82 Height 65 in Height 165 cm Weight 238.319 lb Weight 108.1 kg BMI 39.71 What to do next Scheduled Follow-Up Appointments Tuesday 8:15 AM EST With: Where: [facility] Tuesday 9:00 AM EST With: Lesley ROMERO, González Cadena Where: [facility] [address] [place] [address] [place] [address]- Tuesday 9:45 AM EDT With: Ji SIMON MD Where: [facility] [address] [address]- You Need to Schedule the Following Appointments Follow Up with Ji SIMON MD, URL When: Comments: 4 mos w/ PSA and T level Where: [facility] [address] [place] [address] [phone] Medications What How Much When Why Instructions New tadalafil (tadalafil 20 mg Tab) 1 Tablets By Mouth As Directed as needed for for erectile dysfunction Pt to take one tab 1 hour prior to sexual activity. Do not exceed 20mg in 24 hours. Pickup at [facility] New testosterone (AndroGel Pump 20.25 mg/ 1.25 g (1.62%) transdermal gel) 2 Pump Topical Once a day (in the morning) Refills: 3 Pickup at [facility] Unchanged cholecalciferol (Vitamin D3 50 mcg (2000 intl units) oral tablet, chewable) By Mouth Every day Contact prescribing physician if questions or concerns Unchanged cholestyramine (Questran 4 g/ 9 g oral powder) 1 Packets By Mouth 2 times a day Irritable bowel syndrome with diarrhea Bloating Black stool Chronic GERD Contact prescribing physician if questions or concerns Unchanged fluoxetine (Prozac) 20 Milligram By Mouth Every day Contact prescribing physician if questions or concerns Unchanged icosapent (Vascepa 1 g oral capsule) By Mouth 2 times a day Contact prescribing physician if questions or concerns Unchanged levothyroxine Every day Contact prescribing physician if questions or concerns Unchanged pancrelipase (Zenpep 60,000 units-189,600 units-252,600 units oral delayed release capsule) See instructions Take 2 caps with each meal and 1 with each snack Contact prescribing physician if questions or concerns Pharmacy Information [facility]: [address] [place], [place] [phone] Allergies No Known Allergies No Known Medication Allergies Problems Ongoing - Any problem that you are currently receiving treatment for. Acquired buried penis Alcohol drinker Anemia of chronic disorder (low iron) Benign hypertension (high blood pressure) Black stool Bloating BPH with urinary obstruction Chronic GERD Decreased sexual desire ED (erectile dysfunction) High triglycerides Hypogonadism male Obesity due to excess calories Screening PSA (prostate specific antigen) Stress-related physiological response affecting medical condition Thyroid function tests abnormal Patient Survey You may receive a survey via text or e-mail asking about your office visit. Please share your experience with us by completing your survey. We appreciate your feedback and thank you for choosing us for your care. Education Materials Hypogonadism, Male Male hypogonadism is a condition of having a level of testosterone that is lower than normal. Testosterone is a chemical, or hormone, that is made mainly in the testicles. In boys, testosterone is responsible for the development of male characteristics during puberty. These include: ??? Making the penis bigger. ??? Growing and building the muscles. ??? Growing facial hair. ??? Deepening the voice. In adult men, testosterone is responsible for maintaining: ??? An interest in sex and the ability to have sex. ??? Muscle mass. ??? Sperm production. ??? Red blood cell production. ??? Bone strength. Testosterone also gives men (more content not included)... Normal [facility] Urology Office/Clinic Noteon 05-07-2024 Urology Office/Clinic Note Urology Office/Clinic Note Chief Complaint New patient HPI Staff 53yr old male referred by Dr. Hayden for decreased sexual desire for the last few months. 04/24/24 Testosterone total: 194 SANDRA: 13, IPSS: 8 Dysuria: denies Incomplete bladder emptying: denies Hematuria: denies Frequency: varies has some frequency, other times it could be once every 3-4 hours Urgency: sometimes Nocturia: once a night Stream: denies hesitancy, has a steady stream Leaking: denies Post void dripping: yes Wearing pads/ Depends: denies Urge incontinence: denies Stress incontinence: denies Incontinence without Sensory Awareness: denies Abdominal pain: denies Flank pain: denies Sexual complaints: History of Present Illness Tests reviewed: reviewed referral records, T level I have reviewed the previous health record information and history for this patient from external providers. I have reviewed and verified the staff HPI to be accurate for this encounter. Review of Systems PHQ Score Initial Depression Screen Score: 4 SCORE Detailed Depression Screen Score: 12 Total Depression Screen Score: 16 ROS - Provider Constitutional: denies weight loss, denies hot flashes. Eyes: denies eye problems. Gastrointestinal: denies nausea, denies vomiting. Cardiovascular: denies chest pain or angina. Integumentary: no dryness Musculoskeletal: denies musculoskeletal symptoms. ENMT: denies otolaryngeal symptoms. Respiratory: no shortness of breath. Heme/Lymph: denies easy bleeding tendency, denies easy bruising tendency. Psychiatric: no confusion, no anxiety. Genitourinary: See HPI. Physical Exam Vitals & Measurements HR: 74(Peripheral) RR: 16 BP: 164/82 HT: 65 in HT: 165 cm WT: 108.1 kg WT: 238.319 lb BMI: 39.71 General Appearance: alert, no distress, well nourished, well developed male. Head: normocephalic . Eyes: normal orbit and globe. ENMT: normal examination of external ears. Chest: Lungs CTA, respirations non labored. Cardiovascular: regular rate and rhythm. Abdomen: soft, non distended, no tenderness, no mass or organomegaly, no hernia. Genitourinary: normal scrotum, normal testes, normal urethra, normal epididymis, normal vas deferens/spermatic cord. Flank Pain: none. Bladder: nonpalpable. Penis: normal shaft, normal glans. Lymph Nodes: unremarkable palpation of the cervical area. Skin: warm, dry, no bruising. Psychiatric: cooperative, affect appropriate for age, normal judgement, euthymic mood. Assessment/Plan Kody is a 53 yo male new pt referred by Dr. Alejandra Hayden for decreased libido. 1. ED (erectile dysfunction) (N52.9: Male erectile dysfunction, unspecified) SANDRA 13. Does not wake with an erection. Able to achieve ~80% erection with significant effort. Has early softness. Tried OTC oral medications but denies trying Cialis or Viagra. Educated pt on possible etiologies of ED. Advised pt low testosterone is likely contributing to this. Discussed options, including oral medications, erection pumps, MUSE intraurethral pellet, intracorporal injection therapy, and surgical options. -Start Cialis 20mg prn. Rx [facility] to [facility]. Recommended GoodRx. 2. Hypogonadism male (E29.1: Testicular hypofunction) Testosterone level (ref range 264- 916): 04/24/24 - 194 Reports decreased libido over the past 2 months. The finding of low serum testosterone is discussed with the patient today. We discussed that testosterone replacement has become a bit controversial due to a study which claimed that patients receiving this therapy may be at increased risk for heart disease, stroke, and blood clots. This is in opposition to many studies previously that showed a protective effect against the same problems. The options for treatment including monthly IM injection therapy as well as topical androgen replacement were discussed. The need for monitoring of the testosterone level, liver function tests, lipid profile, and blood counts was discussed. He understands that replacing testosterone in the system is not a guarantee that erections and sexual function will improve and we will be monitoring his response to therapy in regard to increased energy and sense of well being. All his questions were answered. He wishes to proceed with testosterone replacement therapy. -Start Androgel 2 pumps daily. Rx sent to [facility]. Recommended GoodRx. -F/u in 4 mos w/ T level. Pt aware blood draw needs completed prior to 10am. 3. Screening PSA (prostate specific antigen) (Z12.5: Encounter for screening for malignant neoplasm of prostate) No PSA level on record. Denies fam hx of prostate cancer. Recommended pt to get this done. -Obtain PSA level prior to f/u 4. BPH with urinary obstruction (N40.1: Benign prostatic hyperplasia with lower urinary tract symptoms) IPSS 8. No sample provided for UA today. Reports occasional frequency. Does not feel urinary habits are very bothersome. -Cont sx monitoring 5. Acquired buried peni (more content not included)... Normal [facility] Comment on above: Result Comment: Elec tronically Signed By: Ji SIMON MD\.br\Date and Time Signed: 05/07/24 10:05 EST\.br\Electronically Co-Signed By: Nirmala Lama\.br\Date and Time Co-Signed: 05/07/24 09:58 EST Calprotectin, Fecalon 2024 Calprotectin (Stl) [Mass/Mass] 15 mcg/gm Invalid Interpretation Code 0-120 [facility] Comment on above: Result Comment: Conc entration Interpretation Follow-Up < 5 - 50 ug/g Normal None >50 -120 ug/g Borderline Re-evaluate in 4-6 weeks >120 ug/g Abnormal Repeat as clinically indicated Performed at: [facility] [id number] MD Alfredo Green Performed By: #### 1 [id number] #### [facility] [address] [place] [address] Pancreatic Elastase, Fecalon 04-28-2024 Elastase.pancreatic (Stl) [Mass/Mass] 9 Low >200 [facility] Comment on above: Result Comment: Nicole re Pancreatic Insufficiency: <100 Moderate Pancreatic Insufficiency: 100 - 200 Normal: >200 [facility]: [facility] [address] [place] [id number] MD Alfredo Green Performed By: #### 1 [id number] #### [facility] [address] [place] [address] US Abdomen, Limitedon 2024 US Abdomen, Limited Exam Date/Time: 04/26/2024 09:07 EST Reason for Exam: K58.0;Abdominal pain Report IMPRESSION: HEPATIC STEATOSIS, WITH FOCAL FATTY SPARING. CLINICAL HISTORY: Abdominal pain, K58.0 COMPARISON: NONE. FINDINGS: Liver is normal in size and shape and diffusely increased in echogenicity, with focal sparing adjacent to region of gallbladder. No intrahepatic and no extrahepatic ductal dilatation. Common duct measures 2.4 mm. Color-flow without anomaly. Gallbladder contains no shadowing and no echogenic foci. No pericholecystic fluid and no gallbladder wall thickening. Pancreas obscured by overlying bowel gas. Ordering Provider: Alejandra Hayden FINAL REPORT Dictated: 04/27/2024 11:28 am Yaya Rooney MD Signed (Electronic Signature): 04/27/2024 11:28 am Signed by: Yaya Rooney MD Transcribed by: MARIA C Technologist: Eric YING [facility] Celiac Disease Comprehensive on 04-25-2024 Endomysium IgA Ql (S) Negative Invalid Interpretation Code Negative [facility] Comment on above: Result Comment: Seru m is slightly lipemic. Performed By: #### 1 [id number] #### [facility] [address] [place] [address] Gliadin peptide IgA Qn (S) 4 unit(s) Invalid Interpretation Code 0-19 [facility] Comment on above: Result Comment: Nega tive 0 - 19 Weak Positive 20 - 30 Moderate to Strong Positive >30 Performed By: #### 1 [id number] #### [facility] [address] [place] [address] Gliadin peptide IgG Qn (S) 2 unit(s) Invalid Interpretation Code 0-19 [facility] Comment on above: Result Comment: Nega tive 0 - 19 Weak Positive 20 - 30 Moderate to Strong Positive >30 Performed By: #### 1 [id number] #### [facility] [address] [place] [address] IgA [Mass/Vol] 213 mg/dL Invalid Interpretation Code 90-108 [facility] Comment on above: Result Comment: Perf ormed at: [facility] [address] [id number] PhD Franklin Pollard Performed By: #### 1 [id number] #### [facility] [address] [place] [address] tTG IgA Qn (S) <2 Invalid Interpretation Code 0-3 [facility] Comment on above: Result Comment: Nega tive 0 - 3 Weak Positive 4 - 10 Positive >10 Tissue Transglutaminase (tTG) has been identified as the endomysial antigen. Studies have demonstr- ated that endomysial IgA antibodies have over 99% specificity for gluten sensitive enteropathy. Performed By: #### 1 [id number] #### [facility] [address] [place] [address] tTG IgG Qn (S) <2 Invalid Interpretation Code 0-5 [facility] Comment on above: Result Comment: Nega tive 0 - 5 Weak Positive 6 - 9 Positive >9 Performed By: #### 1 [id number] #### [facility] [address] [place] [address] Testost Totalon 04-25-2024 Testosterone [Mass/Vol] 194 ng/dL Low 264-916 [facility] Comment on above: Result Comment: Adul t male reference interval is based on a population of healthy nonobese males (BMI <30) between 19 and 39 years old. Mildred et.al. JCEM 2017,102;2706-9398. PMID: [id number]. Performed at: [facility] [id number] PhD Franklin Pollard Performed By: #### 2 [id number] #### [facility] [address] [place] [address] Ambulatory Visit Summaryon 0 04-24-2024 Ambulatory Visit Summary Ambulatory Visit Summary KODY ENCARNACION :1970 Visit Date:04/24/2024 Ambulatory Visit Instructions Your Diagnosis Irritable bowel syndrome with diarrhea Bloating Black stool Chronic GERD Decreased sexual desire Alcohol drinker Stress-related physiological response affecting medical condition High triglycerides Obesity due to excess calories Your Care Team Attending Physician - Jackelyn ROMERO, Alejandra Kelly Primary Care Physician - NEW GARRISON CNP This Is Your Medications List cholestyramine (Questran 4 g/9 g oral powder) Contact prescribing physician if questions or concerns cholecalciferol (Vitamin D3 50 mcg (2000 intl units) oral tablet, chewable) fluoxetine (Prozac) icosapent (Vascepa 1 g oral capsule) levothyroxine Discharge Vitals Heart Rate (Peripheral) 71 Blood Pressure 125/80 Height 67 in Height 170 cm Weight 108.6 kg Weight 239.422 lb BMI 37.58 What to do next Scheduled Follow-Up Appointments Tuesday 9:00 AM EST With: Jackelyn ROMERO, Alejandra Kelly Where: [facility] [address] [place] [address]- You Need to Complete the Following C-Reactive Protein, Blood, Routine collect, 04/24/24, Order for future visit, Lab Collect, Irritable bowel syndrome with diarrhea Bloating Black stool Chronic GERD, Print Label By Order Location Calprotectin, Fecal, Stool, Routine collect, 04/24/24, Order for future visit, Nurse collect, Irritable bowel syndrome with diarrhea Bloating Black stool Chronic GERD, Print Label By Order Location Celiac Disease Comprehensive, Blood, Routine collect, 04/24/24, Order for future visit, Lab Collect, Irritable bowel syndrome with diarrhea Bloating Black stool Chronic GERD, Print Label By Order Location IgA, Quant., Blood, Routine collect, 04/24/24, Order for future visit, Lab Collect, Irritable bowel syndrome with diarrhea Bloating Black stool Chronic GERD, Print Label By Order Location Pancreatic Elastase, Fecal, Stool, Routine collect, 04/24/24, Order for future visit, Nurse collect, Irritable bowel syndrome with diarrhea Bloating Black stool Chronic GERD, Print Label By Order Location Pancreatic Elastase, Fecal, Stool, Routine collect, 04/24/24, Order for future visit, Nurse collect, Irritable bowel syndrome with diarrhea Bloating Black stool Chronic GERD Decreased sexual desire, Print Label By Order Location Testosterone Level Total, Blood, Routine collect, 04/24/24, Order for future visit, Lab Collect, Irritable bowel syndrome with diarrhea Bloating Black stool Chronic GERD Decreased sexual desire, Print Label By Order Location US Abdomen, Limited, 01/14/25, Routine, Order for future visit, Transport Mode: Ambulatory, Reason: Abdominal pain, No, Irritable bowel syndrome with diarrhea Bloating Black stool Chronic GERD Decreased sexual desire, pp_set_radiology_subs pecialty, [facility] Medications What How Much When Why Instructions New cholestyramine (Questran 4 g/ 9 g oral powder) 1 Packets By Mouth 2 times a day Irritable bowel syndrome with diarrhea Bloating Black stool Chronic GERD Pickup at [facility] Unchanged cholecalciferol (Vitamin D3 50 mcg (2000 intl units) oral tablet, chewable) By Mouth Every day Contact prescribing physician if questions or concerns Unchanged fluoxetine (Prozac) 20 Milligram By Mouth Every day Contact prescribing physician if questions or concerns Unchanged icosapent (Vascepa 1 g oral capsule) By Mouth 2 times a day Contact prescribing physician if questions or concerns Unchanged levothyroxine Every day Contact prescribing physician if questions or concerns Pharmacy Information [facility]: [address] [place], [place] [phone] Medications and Immunizations Administered Not Given influenza virus vaccine, inactivated, Patient Refuses Allergies No Known Allergies No Known Medication Allergies Problems Ongoing - Any problem that you are currently receiving treatment for. Alcohol drinker Anemia of chronic disorder (low iron) Benign hypertension (high blood pressure) Black stool Bloating Chronic GERD Decreased sexual desire High triglycerides Obesity due to excess calories Stress-related physiological response affecting medical condition Thyroid function tests abnormal Patient Survey You may receive a survey via text or e-mail asking about your office visit. Please share your experience with us by completing your survey. We appreciate your feedback and thank you for choosing us for your care. Normal [facility] CHEMISTRYOrdered By: SYSTEM SYSTEM on 04-24-2024 CRP [Mass/Vol] 0.2 mg/dL Normal <=1.9mg/dL Remisol Ch em CRPon 04-24-2024 CRP [Mass/Vol] 0.2 mg/dL Normal <=1.9 [facility] Comment on above: Performed By: #### 2 [id number] #### [facility] [address] [place] [address] Gastroenterology Office/Clin ic Noteon 04-24-2024 Gastroenterology Office/Clinic Note Gastroenterology Office/Clinic Note Chief Complaint Alternating bowels and bloating x years HPI Staff NEW, 53 year old male who presents today for a referral by Shelby Garrison CNP for complaints of IBS w/ alternating bowels and bloating. Denies Blood Thinners Denies GLP-1 Agonists Denies any family history of colon cancer/polyps or IBD Denies Dysphagia, abdominal pain, constipation, diarrhea or bloody stools. Denies any previous EGD/Colonoscopy Denies any recent imaging Labs 04/17/24 Occult blood Negative White Blood Count 5.1 Red Blood Count 4.09 Low Hemoglobin 13.5 Low Hematocrit 40.4 Low Mean Corpuscular Volume 98.8 High Mean Corpuscular Hemoglobin 33.0 Mean Corpuscular HGB Conc 33.4 Red Cell Distribution Width 13.2 Platelet Count 205 Mean Platelet Volume 10.3 Calcium 9.7 Bilirubin Total 0.5 Aspartate Amino Transferase 33 Alanine Aminotransferase 49 Alkaline Phosphatase 49 Total Protein 8.0 Albumin Level 4.1 Globulin 3.9 Albumin Globulin Ratio 1.1 History of Present Illness I have reviewed HPI staff note, most recent labs and imaging, I agree with the above documentation with the following additions/exceptions : PT with issues with bowel movements no consistency altered and could move multiple bowel movements a day missed work x 20 years 20 years dad had the same problem pt has to coombs to the bathroom right after eating anything pt will get abd pain after eating sausage no hx of raysa pt might have to wipe several times also with heartburn and issues swallowing stool could be black Review of Systems PHQ Score Initial Depression Screen Score: 0 SCORE All systems reviewed, negative except as mentioned above Physical Exam Vitals & Measurements HR: 71(Peripheral) BP: 125/80 HT: 67 in HT: 170 cm WT: 108.6 kg WT: 239.422 lb BMI: 37.58 General: alert, no acute distress HEENT: atraumatic normocephalic Cardiovascular: regular rate and rhythm, normal peripheral perfusion Respiratory: Lungs CTA, respirations non labored Extremities: no deformity, no trauma Abdomen: Benign, soft, tender nondistended genitalia: small testicles, uncircumcised, no inguinal hernia appreciated in both sides Assessment/Plan 1. Irritable bowel syndrome with diarrhea (K58.0: Irritable bowel syndrome with diarrhea) Ordered: cholestyramine, = 1 packet(s), Oral, BID, # 60 EA, Refills(s) 0, Pharmacy: [facility], 170, cm, 04/24/24 8:57:00 EST, Height/Length Dosing, 108.6, kg, 04/24/24 8:57:00 EST, Weight Dosing C-Reactive Protein Calprotectin, Fecal Celiac Disease Comprehensive Colonoscopy (Hospital Procedure) EGD Endoscopy (Hospital Procedure) IgA, Quant. Pancreatic Elastase, Fecal Pancreatic Elastase, Fecal Testosterone Level Total US Abdomen, Limited 2. Bloating (R14.0: Abdominal distension (gaseous)) Ordered: cholestyramine, = 1 packet(s), Oral, BID, # 60 EA, Refills(s) 0, Pharmacy: [facility], 170, cm, 04/24/24 8:57:00 EST, Height/Length Dosing, 108.6, kg, 04/24/24 8:57:00 EST, Weight Dosing C-Reactive Protein Calprotectin, Fecal Celiac Disease Comprehensive Colonoscopy (Hospital Procedure) EGD Endoscopy (Hospital Procedure) IgA, Quant. Pancreatic Elastase, Fecal Pancreatic Elastase, Fecal Testosterone Level Total US Abdomen, Limited 3. Black stool (K92.1: Melena) Ordered: cholestyramine, = 1 packet(s), Oral, BID, # 60 EA, Refills(s) 0, Pharmacy: [facility], 170, cm, 04/24/24 8:57:00 EST, Height/Length Dosing, 108.6, kg, 04/24/24 8:57:00 EST, Weight Dosing C-Reactive Protein Calprotectin, Fecal Celiac Disease Comprehensive Colonoscopy (Hospital Procedure) EGD Endoscopy (Hospital Procedure) IgA, Quant. Pancreatic Elastase, Fecal Pancreatic Elastase, Fecal Testosterone Level Total US Abdomen, Limited 4. Chronic GERD (K21.9: Gastro-esophageal reflux disease without esophagitis) Ordered: cholestyramine, = 1 packet(s), Oral, BID, # 60 EA, Refills(s) 0, Pharmacy: [facility], 170, cm, 04/24/24 8:57:00 EST, Height/Length Dosing, 108.6, kg, 04/24/24 8:57:00 EST, Weight Dosing C-Reactive Protein Calprotectin, Fecal Celiac Disease Comprehensive Colonoscopy (Hospital Procedure) EGD Endoscopy (Hospital Procedure) IgA, Quant. Pancreatic Elastase, Fecal Pancreatic Elastase, Fecal Testosterone Level Total US Abdomen, Limited 5. Decreased sexual desire (F52.0: Hypoactive sexual desire disorder) Ordered: [facility] Internal Ambulatory Referral Pancreatic Elastase, Fecal Testosterone Level Total US Abdomen, Limited 6. Alcohol drinker (Z78.9: Other specified health status) 7. Stress-related physiological response affecting medical condition (F54: Psychological and behavioral factors associated with disorders or diseases classified elsewhere) 8. High triglycerides (E78.1: Pure hyperglyceridemia) 9. Obesity due to excess calories (E66.09: Ot (more content not included)... Normal [facility] Comment on above: Result Comment: Elec tronically Signed By: Jackelyn ROMERO, Alejandra Kelly\.br\Date and Time Signed: 04/24/24 09:30 EST FREE T3on 03-15-2018 T3 free mass conc 3.10 pg/mL Normal 2.77-5.27 [facility] Comment on above: Performed By: #### B MP, LIVER, FT3, LIPID, PSASC, TSH, DLDL ####[facility] Nymijxxpge9564 [address] [place] FREE T4on 03-15-2018 T4 free mass conc 0.88 ng/dL Normal 0.78-2.19 [facility] Comment on above: Performed By: #### B MP, LIVER, FT3, LIPID, PSASC, TSH, DLDL ####[facility] Febxnaaezk3101 [address] [place] TSHon 03-15-2018 Thyrotropin Qn 7.705 uIU/mL Critically high 0.470-4.[address] [facility] Comment on above: Performed By: #### B MP, LIVER, FT3, LIPID, PSASC, TSH, DLDL ####[facility] Ozslqfufbe1959 [address] [place] Thyrotropin Qn SEE BELOW Normal [facility] Comment on above: Result Comment: <0.3 4 UIU/ml HYPERTHYROID 0.34-5.60 UIU/ml EUTHYROID >5.60 UIU/ml HYPOTHYROID Performed By: #### B MP, LIVER, FT3, LIPID, PSASC, TSH, DLDL ####[facility] Mwuhalqiak2993 [address] [place] TESTOSTERONE, TOTALon 2017 Testosterone [Mass/volume] in Serum or Plasma 314 ng/dL Normal 264-[address] [facility] Comment on above: Result Comment: Adul t male reference interval is based on a population ofhealthy nonobese males (BMI <30) between 19 and 39 years old.gus Levy.al. JCEM 2017,102;7218-6041. PMID: [id number]. Performed By: #### B MP, LIVER, FT3, LIPID, PSASC, TSH, DLDL ####[facility] Kjuzkemsau6605 [address] [place] FREE T3on 01-02-2018 T3 free mass conc 2.98 pg/mL Normal 2.77-5.27 [facility] Comment on above: Performed By: #### B MP, LIVER, FT3, LIPID, PSASC, TSH, DLDL ####[facility] Vytdhfxaff3824 [address] [place] FREE T4on 01-02-2018 T4 free mass conc 0.89 ng/dL Normal 0.78-2.19 [facility] Comment on above: Performed By: #### B MP, LIVER, FT3, LIPID, PSASC, TSH, DLDL ####[facility] Uispvzmfba8447 [address] [place] TSHon 01-02-2018 Thyrotropin Qn 5.999 uIU/mL Critically high 0.470-4.[address] [facility] Comment on above: Performed By: #### B MP, LIVER, FT3, LIPID, PSASC, TSH, DLDL ####[facility] Gqiajarjvm7214 [address] [place] Thyrotropin Qn SEE BELOW Normal [facility] Comment on above: Result Comment: <0.3 4 UIU/ml HYPERTHYROID 0.34-5.60 UIU/ml EUTHYROID >5.60 UIU/ml HYPOTHYROID Performed By: #### B MP, LIVER, FT3, LIPID, PSASC, TSH, DLDL ####[facility] Ghyluyckix7817 [address] [place] CBC AUTO DIFFon 09-14-2017 Basophils Auto #/vol (Bld) 0.1 103/ul Normal 0.0-0.[address] [facility] Comment on above: Performed By: #### C BC ####[facility] [address] [place] [address] [place] Basophils/100 WBC Auto (Bld) 0.8 % Normal 0.2-2.[address] [facility] Comment on above: Performed By: #### C BC ####[facility] [address]pb[address] [place] [address] [place] Eosinophils Auto #/vol (Bld) 0.1 103/ul Normal 0.0-0.[address] [facility] Comment on above: Performed By: #### C BC ####[facility] [address] [place] [address] [place] Eosinophils/100 WBC Auto (Bld) 1.4 % Normal 0.9-7.[address] [facility] Comment on above: Performed By: #### C BC ####[facility] [address]lxi[address] [place] [address] [place] Erythrocyte distribution width Auto Ratio (RBC) 13.2 % Normal 11.0-15.[address] [facility] Comment on above: Performed By: #### C BC ####[facility] [address] [place] [address] [place] Hematocrit Auto Volume Fraction (Bld) 43.7 % Normal 42.0-54.0 [facility] Comment on above: Performed By: #### C BC ####[facility] E[address] [place] [address] [place] Hemoglobin mass conc (Bld) 15.2 g/dL Normal 14.0-18.[address] [facility] Comment on above: Performed By: #### C BC ####[facility] [address]her[address]qxu[address] [place] [address] [place] IG # 0.05 10e3/ul Critically high 0.00-0.03 [facility] Comment on above: Performed By: #### C BC ####[facility] [address] [place] [address] [place] IG % 0.7 % Critically high 0.0-0.5 [facility] Comment on above: Performed By: #### C BC ####[facility] Yfqpv[address] [place] [address] [place] Lymphocytes Auto #/vol (Bld) 1.7 103/ul Normal 1.2-3.[address] [facility] Comment on above: Performed By: #### C BC ####[facility] [address]by[address]re[address] [place] [address] [place] Lymphocytes/100 WBC Auto (Bld) 23.7 % Normal 20.5-60.[address] [facility] Comment on above: Performed By: #### C BC ####[facility] [address] [place] [address] [place] MANUAL DIFF REQ NO Normal [facility] Comment on above: Performed By: #### C BC ####[facility] [address] [place] [address] [place] MCH Auto Entitic mass (RBC) 33.8 pg Normal 25.9-34.[address] [facility] Comment on above: Performed By: #### C BC ####[facility] [address]rel[address] [place] [address] [place] MCHC Auto mass conc (RBC) 34.8 g/dL Normal 29.9-35.[address] [facility] Comment on above: Performed By: #### C BC ####[facility] [address]bs[address] [place] [address] [place] MCV Auto Entitic volume (RBC) 97.1 fL Critically high 80.0-94.[address] [facility] Comment on above: Performed By: #### C BC ####[facility] [address] [place] [address]Gyevjf [place] Monocytes Auto #/vol (Bld) 0.5 103/ul Normal 0.3-0.[address] [facility] Comment on above: Performed By: #### C BC ####[facility] [address] [place] [address]Zormbr [place] Monocytes/100 WBC Auto (Bld) 7.0 % Normal 1.7-12.[address] [facility] Comment on above: Performed By: #### C BC ####[facility] [address] [place] [id number] [place] Neutrophils Auto #/vol (Bld) 4.7 103/ul Normal 1.4-6.[address] [facility] Comment on above: Performed By: #### C BC ####[facility] Y[address]wp[address] [place] [address]Aycvip [place] Neutrophils/100 WBC Auto (Bld) 66.4 % Normal 43.0-75.[address] [facility] Comment on above: Performed By: #### C BC ####[facility] [address] [place] [address]Sowycf [place] Platelet mean volume Auto Entitic volume (Bld) 10.7 fL Normal 9.5-13.[address] [facility] Comment on above: Performed By: #### C BC ####[facility] Bj[address]af[address] [place] [id number] [place] Platelets Auto #/vol (Bld) 223 103/ul Normal 150-[address] [facility] Comment on above: Performed By: #### C BC ####[facility] Yukxbohyid[address] [place] [address]Ovfxyg [place] RBC Auto #/vol (Bld) 4.50 106/ul Critically low 4.70-6.[address] [facility] Comment on above: Performed By: #### C BC ####[facility] [address] [place] [address]Jsyrpo [place] WBC Auto #/vol (Bld) 7.1 103/ul Normal 4.0-11.[address] [facility] Comment on above: Performed By: #### C BC ####[facility] [address] [place] [id number] [place] DIRECT LDLon 09-14-2017 Cholesterol in LDL mass conc SEE BELOW Normal [facility] Comment on above: Result Comment: <100 mg/dl OPTIMAL 100 - 129 mg/dl NEAR OR ABOVE OPTIMAL 130 - 159 mg/dl BORDERLINE HIGH 160 - 189 mg/dl HIGH >190 mg/dl VERY HIGH Performed By: #### B MP, LIVER, FT3, LIPID, PSASC, TSH, DLDL ####[facility] Cwyohaezdd5435 [address] [place] Cholesterol in LDL mass conc 45 mg/dL Normal The [facility] Comment on above: Performed By: #### B MP, LIVER, FT3, LIPID, PSASC, TSH, DLDL ####[facility] Rnrfmgggfv6979 [address] [place] FREE T3on 09-14-2017 T3 free mass conc 4.33 pg/mL Normal 2.77-5.27 [facility] Comment on above: Performed By: #### B MP, LIVER, FT3, LIPID, PSASC, TSH, DLDL ####[facility] Cfpkkgywnh4464 [address] [place] FREE T4on 09-14-2017 T4 free mass conc 0.67 ng/dL Critically low 0.78-2.[address] [facility] Comment on above: Performed By: #### F T4 ####[facility] Zjtweosqxd4344 [address] [place] GLYCOHEMOGLOBIN A1Con 2017 Glucose mass conc 108 mg/dL Normal [facility] Comment on above: Performed By: #### A 1C ####[facility] Bifaeilnox2642 [address] [place] Hemoglobin A1c/Hemoglobin.total mass fraction (Bld) 5.4 % Normal <=6.[address] [facility] Comment on above: Performed By: #### A 1C ####[facility] Swuojbfyoq0372 [address] [place] LIPID PROFILEon 09-14-2017 CHOL-HDL RATIO NORM SEE BELOW Normal [facility] Comment on above: Result Comment: 3.3 - 4.4 LOW RISK 4.4 - 7.1 AVERAGE RISK 7.1 - 11.0 MODERATE RISK >11.0 HIGH RISK Performed By: #### B MP, LIVER, FT3, LIPID, PSASC, TSH, DLDL ####[facility] Yvotpjjfto8032 [place], [place] [address]Lsuiwj [place] Cholesterol in HDL mass conc 34 mg/dL Normal [facility] Comment on above: Result Comment: A po sitive bias may be seen with a triglyceride level over 600 mg/dL Performed By: #### B MP, LIVER, FT3, LIPID, PSASC, TSH, DLDL ####[facility] Jdnwjwwmny0486 [address] [place] Cholesterol in HDL mass conc > or = 60 mg/dl - LOW CARDIOVASCULAR RISK <40 mg/dl - HIGH CARDIOVASCULAR RISK Normal [facility] Comment on above: Performed By: #### B MP, LIVER, FT3, LIPID, PSASC, TSH, DLDL ####[facility] Ir[address]xejd9[address] [place], [place] [address]Qiljqt [place] Cholesterol mass conc 199 mg/dL Normal <=[address] [facility] Comment on above: Performed By: #### B MP, LIVER, FT3, LIPID, PSASC, TSH, DLDL ####[facility] Zbznvnpyvy2436 [address] [place] Cholesterol.total/Cho lesterol in HDL mass ratio 6.0 {ratio} Normal The [facility] Comment on above: Performed By: #### B MP, LIVER, FT3, LIPID, PSASC, TSH, DLDL ####[facility] Ktigccsimi[address] [place] [id number] Triglyceride mass conc 1177 mg/dL Critically high <=[address] [facility] Comment on above: Performed By: #### B MP, LIVER, FT3, LIPID, PSASC, TSH, DLDL ####[facility] Fxsrjcaeor[address]49 [place] [id number] [place] LIVER PROFILEon 09-14-2017 Albumin mass conc 4.6 g/dL Normal 3.5-5.0 [facility] Comment on above: Performed By: #### B MP, LIVER, FT3, LIPID, PSASC, TSH, DLDL ####[facility] Tktbxxivpw5565 [address] [place] Albumin/Globulin mass ratio 1.5 {ratio} Normal The [facility] Comment on above: Performed By: #### B MP, LIVER, FT3, LIPID, PSASC, TSH, DLDL ####[facility] Muizqbjfcq4178 [place] [id number] [place] ALP enzyme act/vol 66 U/L Normal 38-126 The [facility] Comment on above: Performed By: #### B MP, LIVER, FT3, LIPID, PSASC, TSH, DLDL ####[facility] Syznibmcer4095 [place] [phone] ALT enzyme act/vol 66 U/L Normal 21-72 [facility] Comment on above: Performed By: #### B MP, LIVER, FT3, LIPID, PSASC, TSH, DLDL ####[facility] Digxniipbi4057 [place] [phone] AST enzyme act/vol 48 U/L Normal 17-59 The [facility] Comment on above: Performed By: #### B MP, LIVER, FT3, LIPID, PSASC, TSH, DLDL ####[facility] Lpungcaurq2967 [place] [phone] BILI, CONJUGATED 0.0 mg/dL Normal 0.0-0.3 [facility] Comment on above: Performed By: #### B MP, LIVER, FT3, LIPID, PSASC, TSH, DLDL ####[facility] Fhbpspjemw3502 [place] [phone] Bilirubin Ql (U) 0.3 mg/dL Normal 0.2-1.3 [facility] Comment on above: Performed By: #### B MP, LIVER, FT3, LIPID, PSASC, TSH, DLDL ####[facility] Klybyqtpdd4459 [place] [phone] Globulin Calculated mass conc (S) 3.1 g/dL Normal The [facility] Comment on above: Performed By: #### B MP, LIVER, FT3, LIPID, PSASC, TSH, DLDL ####[facility] Mpnhvpiuts0273 [address] [place] Protein mass conc 7.7 g/dL Normal 6.1-8.2 [facility] Comment on above: Performed By: #### B MP, LIVER, FT3, LIPID, PSASC, TSH, DLDL ####[facility] Xvvyzrhzxy5611 [address] [place] PROF CHEM 8 (BAS METB)on Anion gap 3 molar conc 10.0 mmol/L Normal The [facility] Comment on above: Performed By: #### B MP, LIVER, FT3, LIPID, PSASC, TSH, DLDL ####[facility] Gkqztnjctr8621 [address] [place] Calcium mass conc 9.6 mg/dL Normal 8.4-10.2 [facility] Comment on above: Performed By: #### B MP, LIVER, FT3, LIPID, PSASC, TSH, DLDL ####[facility] Pfhqsexons0666 [address] [place] Chloride molar conc 104 mmol/L Normal 98-107 [facility] Comment on above: Performed By: #### B MP, LIVER, FT3, LIPID, PSASC, TSH, DLDL ####[facility] Rrigepzrao7558 [address] [place] CO2 molar conc 25.0 mmol/L Normal 22.0-30.0 [facility] Comment on above: Performed By: #### B MP, LIVER, FT3, LIPID, PSASC, TSH, DLDL ####[facility] Saecmvvhdi4097 [address] [place] Creatinine mass conc 0.96 mg/dL Normal 0.66-1.[address] [facility] Comment on above: Performed By: #### B MP, LIVER, FT3, LIPID, PSASC, TSH, DLDL ####[facility] Zxubmidguf3639 [place] [phone] EGFR-AF TURKS AND CAICOS ISLANDER >60 Normal >=60 [facility] Comment on above: Performed By: #### B MP, LIVER, FT3, LIPID, PSASC, TSH, DLDL ####[facility] Gquyvpwnzi5630 [place] [phone] EGFR-NON AF TURKS AND CAICOS ISLANDER >60 Normal >=[address] [facility] Comment on above: Performed By: #### B MP, LIVER, FT3, LIPID, PSASC, TSH, DLDL ####[facility] Gfwpntmxcr6885 [address] [place] Glucose mass conc 97 mg/dL Normal 74-106 [facility] Comment on above: Performed By: #### B MP, LIVER, FT3, LIPID, PSASC, TSH, DLDL ####[facility] Cfvwujwerm6861 [address] [place] Potassium molar conc 4.2 mmol/L Normal 3.4-5.[address] [facility] Comment on above: Performed By: #### B MP, LIVER, FT3, LIPID, PSASC, TSH, DLDL ####[facility] Flvyaenjed0611 [address] [place] Sodium molar conc 135 mmol/L Critically low 137-[address] [facility] Comment on above: Performed By: #### B MP, LIVER, FT3, LIPID, PSASC, TSH, DLDL ####[facility] Knvywsmbxf1557 [address] [place] Urea nitrogen mass conc 14.0 mg/dL Normal 9.0-20.[address] [facility] Comment on above: Performed By: #### B MP, LIVER, FT3, LIPID, PSASC, TSH, DLDL ####[facility] Jsxrcuqxmp3740 [address] [place] Urea nitrogen/Creatinine mass ratio 14.8 mg/mg Normal [facility] Comment on above: Performed By: #### B MP, LIVER, FT3, LIPID, PSASC, TSH, DLDL ####[facility] Qt[address]zbqdkr4[address] [place], [place] [address]Sgnriq [place] TSHon 09-14-2017 Thyrotropin Qn SEE BELOW Normal [facility] Comment on above: Result Comment: <0.3 4 UIU/ml HYPERTHYROID 0.34-5.60 UIU/ml EUTHYROID >5.60 UIU/ml HYPOTHYROID Performed By: #### B MP, LIVER, FT3, LIPID, PSASC, TSH, DLDL ####[facility] Encsprujxa4352 [address] [place] Thyrotropin Qn 6.140 uIU/mL Critically high 0.470-4.[address] [facility] Comment on above: Performed By: #### B MP, LIVER, FT3, LIPID, PSASC, TSH, DLDL ####[facility] Mawmzcogkk9108 [address] [place] Vital Signs Date Time Vital Sign Value Performing Clinician Faci lity 04-24-2024 08:57-0500 Blood Pressure Location Alejandra Hayden [facility] 04-24-2024 08:57-0500 Diastolic blood pressure 80 mm[Hg] Alejandra Hayden [facility] 04-24-2024 08:57-0500 Heart rate 71 /min Alejandra Hayden [facility] 04-24-2024 08:57-0500 Systolic blood pressure 125 mm[Hg] Alejandra Hayden [facility] Encounters Encounter Date Encounter Type Care Provider Facility Start: 09-07-2024 ambulatory Ji Cowart ty:MELISSA Peralta Start: 05-21-2024 ambulatory González Sutton Facility:[facility] Start: 05-07-2024 ambulatory Alejandra Milian lity:MELISSA Peralta Start: 04-27-2024 ambulatory Alejandra Hayden Facilit y:MELISSA Peralta Start: 04-26-2024 End: 04-26-2024 ambulatory Alejandra Hayden Facility:[facility] Start: 04-26-2024 End: 04-26-2024 Patient encounter procedure Alejandra Hayden [facility] Start: 04-25-2024 End: 04-25-2024 ambulatory Alejandra Hayden Facility:[facility] Start: 04-25-2024 End: 04-25-2024 Lab Drop off Alejandra Hayden [facility] Start: 04-24-2024 End: 04-24-2024 ambulatory Alejandra Hayden Facility:[facility] Start: 04-24-2024 End: 04-24-2024 Patient encounter procedure Alejandra Hayden [facility] Start: 04-24-2024 End: 04-24-2024 ambulatory Alejandra Hayden Facility:[facility] Start: 04-24-2024 End: 04-24-2024 Patient encounter procedure Alejandra Hayden [facility] Start: 04-18-2024 ambulatory Alejandra Hayden Facilit y:Alejandro Start: 03-15-2018 End: 03-16-2018 Patient encounter procedure LUIS ANTONIO HERNANDEZ Facility:[facility] Start: 01-02-2018 End: 01-03-2018 Patient encounter procedure LUIS ANTONIO HERNANDEZ Facility: Start: 10-26-2017 End: 10-27-2017 Patient encounter procedure LUIS ANTONIO HERNANDEZ Facility:[facility]1 Start: 09-27-2017 End: 09-28-2017 Patient encounter procedure LUIS ANTONIO HERNANDEZ Facility:[facility] Start: 09-15-2017 Encounter for genera l adult medical examination without abnormal findings LUIS ANTONIO HERNANDEZ [facility] Start: 09-14-2017 End: 09-15-2017 Patient encounter procedure LUIS ANTONIO HERNANDEZ Facility:[facility] Encounter for genera l adult medical examination without abnormal findings LUIS ANTONIO HERNANDEZ [facility] Procedures Date Procedure Procedure Detail Performing Clinician Start: 09-14-2017 PSA screening LUIS ANTONIO URIBE Comment on above: Performed By: #### B MP, LIVER, FT3, LIPID, PSASC, TSH, DLDL ####[facility] [address] [place], [place] [address]Vgitzu Karen Immunizations Immunization Date Immunization Notes Care Provider Ron armenta NEGATED: Highlighted row has not occurred!04-24-2024 influenza virus vaccine, unspecified formulation Ritamariya Celestinekarmen [facility] Payers Date Payer Category Payer Unknown [id number] 1970 Unknown [id number] 2.16.84 [id number] 1970 Unknown [id number] 2.16.84 [id number] 1970 Unknown [id number] 2.16.84 [id number] 1970 Unknown [id number] 2.16.84 [id number] 1970 Unknown [id number] 2.16.84 [id number] 1970 Unknown [id number] 2.16.8 [id number] 1970 Unknown [id number] 2.16.8 [id number] 1970 Unknown [id number] 2.16.8 [id number] 1970 Unknown [id number] 2.16.8 [id number] 1970 Unknown [id number] 2.16.8 [id number] 1970 Unknown [id number] 2.16.8 [id number] 1970 Unknown [id number] 2.16.8 [id number] 1959 Unknown [id number] Social History Date Type Detail Facility Start: 04-24-2024 Tobacco smoking status Never s moked tobacco (finding) [facility] Tobacco smoking status Smokeless tobacco user within last 30 days [facility] Sex Assigned At Male [facility] Functional Status Date Assessment Result Facility 04-24-2024 Functional Status N/A [facility] Clinical Note 05-07-2024 Note Date & Type Note Facility 05-07-2024 Note Patient Education Urology Hypogonadism, Male Male hypogonadism is a condition of having a level of testosterone that is lower than normal. Testosterone is a chemical, or hormone, that is made mainly in the testicles. In boys, testosterone is responsible for the development of male characteristics during puberty. These include: ??? Making the penis bigger. ??? Growing and building the muscles. ??? Growing facial hair. ??? Deepening the voice. In adult men, testosterone is responsible for maintaining: ??? An interest in sex and the ability to have sex. ??? Muscle mass. ??? Sperm production. ??? Red blood cell production. ??? Bone strength. Testosterone also gives men energy and a sense of well-being. Testosterone normally decreases as men age and the testicles make less testosterone. Testosterone levels can vary from man to man. Not all men will have signs and symptoms of low testosterone. Weight, alcohol use, medicines, and certain medical conditions can affect a man's testosterone level. What are the causes? This condition is caused by: ??? A natural decrease in testosterone that occurs as a man grows older. This is the main cause of this condition. ??? Use of medicines, such as antidepressants, steroids, and opioids. ??? Diseases and conditions that affect the testicles or the making of testosterone. These include: ? Injury or damage to the testicles from trauma, cancer, cancer treatment, or infection. ? Diabetes. ? Sleep apnea. ? Genetic conditions that men are born with. ? Disease of the pituitary gland. This gland is in the brain. It produces hormones. ? Obesity. ? Metabolic syndrome. This is a group of diseases that affect blood pressure, blood sugar, cholesterol, and belly fat. ? HIV or AIDS. ? Alcohol abuse. ? Kidney failure. ? Other long-term or chronic diseases. What are the signs or symptoms? Common symptoms of this condition include: ??? Loss of interest in sex (low sex drive). ??? Inability to have or maintain an erection (erectile dysfunction). ??? Feeling tired (fatigue). ??? Mood changes, like irritability or depression. ??? Loss of muscle and body hair. ??? Infertility. ??? Large breasts. ??? Weight gain (obesity). How is this diagnosed? Your health care provider can diagnose hypogonadism based on: ??? Your signs and symptoms. ??? A physical exam to check your testosterone levels. This includes blood tests. Testosterone levels can change throughout the day. Levels are highest in the morning. You may need to have repeat blood tests before getting a diagnosis of hypogonadism. Depending on your medical history and test results, your health care provider may also do other tests to find the cause of low testosterone. How is this treated? This condition is treated with testosterone replacement therapy. Testosterone can be given by: ??? Injection or through pellets inserted under the skin. ??? Gels or patches placed on the skin or in the mouth. Testosterone therapy is not for everyone. It has risks and side effects. Your health care provider will consider your medical history, your risk for prostate cancer, your age, and your symptoms before putting you on testosterone replacement therapy. Follow these instructions at home: ??? Take geuo-wnr-qsmuhlm and prescription medicines only as told by your health care provider. ??? Eat foods that are high in fiber, such as beans, whole grains, and fresh fruits and vegetables. Limit foods that are high in fat and processed sugars, such as fried or sweet foods. ??? If you drink alcohol: ? Limit how much you have to 0?2 drinks a day. ? Know how much alcohol is in your drink. In the [place] one drink equals one 12 oz bottle of beer (355 mL), one 5 oz glass of wine (148 mL), or one 1? oz glass of hard liquor (44 mL). ??? Return to your normal activities as told by your health care provider. Ask your health care provider what activities are safe for you. ??? Keep all follow-up visits. This is important. Contact a health care provider if: ??? You have any of the signs or symptoms of low testosterone. ??? You have any side effects from testosterone therapy. Summary ??? Male hypogonadism is a condition of having a level of testosterone that is lower than normal. ??? The natural drop in testosterone production that occurs with age is the most common cause of this condition. ??? Low testosterone can also be caused by many diseases and conditions that affect the testicles and the making of testosterone. ??? This condition is treated with testosterone replacement therapy. ??? There are risks and side effects of testosterone therapy. Your health care provider will consider your age, medical history, symptoms, and risks for prostate cancer before putting you on testosterone therapy. This information is not intended to replace advice given to you by your health care provider. Make sure you discuss any (more content not included)... [facility] Evaluation + Plan note LaboratoryRadiology Note Date & Type Note Facility Evaluation + Plan note Future Appointments Appointment Date:05/04/2024 09:30:00 AM Scheduled Provider: Location:[facility] Appointment Type:Surgery FT Appointment Date:05/11/2024 09:00:00 AM Scheduled Provider:Alejandra Hayden MD Location:[facility] Appointment Type:[facility] Follow Up Future Scheduled TestsPancreatic Elastase, Fecal 04/24/24Pancreatic Elastase, Fecal 04/24/24Calprotectin, Fecal 04/24/24US Abdomen, Limited 04/24/24 [facility] Evaluation + Plan note LaboratoryRadiology Note Date & Type Note Facility Evaluation + Plan note Future Appointments Appointment Date:05/04/2024 09:30:00 AM Scheduled Provider: Location:[facility] Appointment Type:Surgery FT Appointment Date:05/11/2024 09:00:00 AM Scheduled Provider:Alejandra Hayden MD Location:[facility] Appointment Type:[facility] Follow Up Diagnostic Tests PendingCeliac Disease Comprehensive 04/24/24Testosterone Level Total 04/24/24 Future Scheduled TestsPancreatic Elastase, Fecal 04/24/24Pancreatic Elastase, Fecal 04/24/24Calprotectin, Fecal 04/24/24US Abdomen, Limited 04/24/24 [facility] Evaluation + Plan note Radiology Note Date & Type Note Facility Evaluation + Plan note Future Appointments Appointment Date:04/26/2024 08:30:00 AM Scheduled Provider: [facility] Appoint[facility] Type:US Abdominal/Pelvis (FT) Appointment Date:05/04/2024 09:30:00 AM Scheduled Provider: Location:[facility] Appointment Type:Surgery FT Appointment Date:05/11/2024 09:00:00 AM Scheduled Provider:Alejandra Hayden MD Location:[facility] Appointment Type:[facility] Follow Up Diagnostic Tests PendingCalprotectin, Fecal 04/25/24Pancreatic Elastase, Fecal 04/25/24 Future Scheduled TestsUS Abdomen, Limited 04/26/24 [facility] Evaluation + Plan note Note Date & Type Note Facility Evaluation + Plan note Future Appointments Appointment Date:05/04/2024 09:30:00 AM Scheduled Provider: Location:[facility] Appointment Type:Surgery FT Appointment Date:05/11/2024 09:00:00 AM Scheduled Provider:Alejandra Hayden MD Location:[facility] Appointment Type:BAD Follow Up [facility] Hospital course Narrative Note Date & Type Note Facility Hospital course Narrative No data available for this section [facility] Hospital Discharge instructions Note Date & Type Note Facility Hospital Discharge instructions No data available for this section [facility] Progress note Note Date & Type Note Facility Progress note No data available for this section [facility] Summary Purpose Family History No Family History Records Found No data available for this section No data available for this section No data available for this section No data available for this section No Family History Records FoundNo Family History Records FoundNo Family History Records FoundNo Family History Records FoundNo Family History Records FoundNo Family History Records Found Advance Directives No Advanced Directives Records FoundNo Advanced Directives Records FoundNo Advanced Directives Records FoundNo Advanced Directives Records FoundNo Advanced Directives Records FoundNo Advanced Directives Records FoundNo Advanced Directives Records Found Additional Source Comments (unrecognized sect ion and content) No Status Records FoundNo Status Records FoundNo Status Records FoundNo Status Records FoundNo Status Records FoundNo Status Records FoundNo Status Records Found INFORMATION SOURCE (unrecogn ized section and content) DATE CREATED AUTHOR 03/21/2018 [facility] DATE CREATED AUTHOR AUTHOR'S ORGANIZ ATION 04/27/2024 [place] [facility] [place] [facility] DATE CREATED AUTHOR AUTHOR'S ORGANIZ ATION 04/28/2024 [place] [facility] [place] [facility] DATE CREATED AUTHOR AUTHOR'S ORGANIZ ATION 04/30/2024 [place] [facility] [place] [facility] DATE CREATED AUTHOR AUTHOR'S ORGANIZ ATION [facility]2024 [facility] [place] [facility] DATE CREATED AUTHOR AUTHOR'S ORGANIZ ATION 05/07/2024 [facility] Patient Care team informatio n (unrecognized section and content) Personnel Name: NEW GARRISON CNP Address: Address: [address] [place] [address] Personnel Name: NEW GARRISON CNP Address: Address: [address] [place] [address] Personnel Name: NEW GARRISON CNP Address: Address: [address] [place] [address] Personnel Name: MELI HORNER NEW Heena Address: Address: [address] [place] [address] FOR RECORDS PERTAINING TO PATIENTS WHO ARE [...] BE BASED ON THE PRIMARY CLINICAL RECORDS. [facility], [facility]. provides no warranty or guarantee of the accuracy or completeness of information in this document.
== END 2024-05-08 08:46 | disposition home or self-care (01) ==
LOC: MRI 08:45
PROVIDERS: PCP Nurse Practitioner Family; Visit Provider Nurse Practitioner Family
DX: G43.109 Migraine with aura, not intractable, without status migrainosus (principal)
CPT/HCPCS: 70551

== ENCOUNTER 2024-05-14 09:43 | Outpatient (OUT) | payer OTHER, SELFPAY ==
--- OUTSIDE RECORDS SUMMARY | 2024-05-14 09:49 | XMS_ITS | CCD ---
Author Organization [facility] Care Team Providers Care Benefits Clerk Name Role Phone NADERER, LUIS ANTONIO A [...] Unavailable Unavailable [place] Primary Care Physician [phone] Jackelyn Mohamad A. Admitting Unavailable Mouchli, Mohamad A. Attending Unavailable Mouchli, Mohamad A. Attending Unavailable Mouchli, Mohamad A. Admitting Unavailable Mouchli, Mohamad A. Admitting Unavailable Mouchli, Mohamad A. Attending Unavailable González Sutton Attending Unavaila ble Monestorli, Mohamad A. Attending Unavailable Mouchli, Mohamad A. Referring Unavailable Ji SIMON Attending Unavailable Mouchli, Mohamad A. Referring Unavailable Mouchli, Mohamad A. Attending Unavailable Mouchli, Mohamad A. Admitting Unavailable Ji SIMON Attending Unavailable Mouchli, Mohamad A. Admitting Unavailable Mouchli, Mohamad A. Attending Unavailable Mouchli, Mohamad A. Referring Unavailable Allergies Allergy Classification Reported Allergen(s) Allergy Type Date of Onset Reaction(s) Facility (4 sources) No Known Medication Allergies; Translations: [No Known Medication Allergies] Propensity to adverse reactions (disorder) [facility] Repository Medications Current Medications Medication Drug Class(es) Dates Sig (Normalized) Sig (Original) amylase 261681 UNT / lipase 94274 UNT / protease 288073 UNT Delayed Release Oral Capsule [Zenpep] (2 sources) Start: 04-30-2024 Zenpep 60,000 units-189,600 units-252,600 units oral delayed release capsule See Instructions, 300 cap(s), Refill(s) 3, Take 2 caps with each meal and 1 with each snack, [facility], 170, cm, 04/24/24 8:57:00 EST, Height/Length Dosing, 108.6, kg, 04/24/24 8:57:00 EST, Weight Dosing Start Date: 04/30/24 Status: Ordered cholestyramine resin 4000 mg powder for oral suspension (6 sources) Bile Acid Sequestrant Start: 04-24-2024 Questran 4 g/9 g oral powder = 1 packet(s), Oral, BID, # 60 EA, Refills(s) 0, Pharmacy: [facility], 170, cm, 04/24/24 8:57:00 EST, Height/Length Dosing, 108.6, kg, 04/24/24 8:57:00 EST, Weight Dosing Start Date: 04/24/24 Status: Ordered FLUoxetine 20 mg oral tablet (6 sources) Serotonin Reuptake Inhibitor Start: 04-24-2024 take 20 mg by mouth once daily Prozac 20 mg, Oral, Daily, Refills(s) 0, Depression Start Date: 04/24/24 Status: Ordered icosapent ethyl 1000 mg oral capsule (6 sources) Start: 04-24-2024 take 1 capsule by mouth twice daily Vascepa 1 g oral capsule gm cap(s), Oral, BID, Refills(s) 0, High cholesterol Start Date: 04/24/24 Status: Ordered levothyroxine (6 sources) l-Thyroxine Start: 04-24-2024 levothyroxine Daily, Refills(s) 0, Thyroid Start Date: 04/24/24 Status: Ordered Start: 04-24-2024 levothyroxine Daily, Refills(s) 0 Start Date: 04/24/24 Status: Ordered omeprazole 40 mg delayed release oral capsule (1 source) Proton Pump Inhibitor Start: 05-11-2024 take 1 capsule by mouth twice daily omeprazole 40 mg Cap-DR 40 mg = 1 cap(s), Oral, BID, # 180 cap(s), Refills(s) 3, Pharmacy: [facility], 170, cm, 05/11/24 7:28:00 EST, Height/Length Dosing, 108.6, kg, 05/11/24 7:28:00 EST, Weight Dosing Start Date: 05/11/24 Status: Ordered 60 actuat testosterone 20.25 mg/actuat topical gel (2 sources) Androgen Start: 05-07-2024 AndroGel Pump 20.25 mg/1.25 g (1.62%) transdermal gel = 2 pump, Topical, qAM, # 75 gram, Refills(s) 3, Pharmacy: [facility], 165, cm, 05/07/24 9:19:00 EST, Height/Length Dosing, 108.1, kg, 05/07/24 9:19:00 EST, Weight Dosing Start Date: 05/07/24 Status: Ordered Vitamin D3 50 mcg (2000 intl units) oral tablet, chewable (6 sources) Start: 04-24-2024 take 1 tablet by mouth once daily Vitamin D3 50 mcg (2000 intl units) oral tablet, chewable mcg tab(s), Oral, Daily, Refills(s) 0, Prophylaxis Start Date: 04/24/24 Status: Ordered Start: 04-24-2024 take 1 tablet by katerina th once daily Vitamin D3 50 mcg (2000 intl units) oral tablet, chewable mcg tab(s), Oral, Daily, Refills(s) 0 Start Date: 04/24/24 Status: Ordered Completed/Discontinued Medications Medication Drug Class(es) Dates Sig (Normalized) Sig (Original) tadalafil 20 mg oral tablet (2 sources) Phosphodiesterase 5 Inhibitor Start: 05-07-2024 take 1 tablet by mouth every hour as needed, then take 1 tablet by mouth every twenty-four hours as needed tadalafil 20 mg Tab 20 mg = 1 tab(s), Oral, As Directed, PRN for erectile dysfunction, Pt to take one tab 1 hour prior to sexual activity. Do not exceed 20mg in 24 hours., # 30 tab(s), Refills(s) 0, Pharmacy: [facility], 165, cm, 05/07/24 9:19:00 EST, Height/Length Dosing, 108.1, kg, 05/07/24 9:19:00 EST, Weight Dosing Start Date: 05/07/24 Status: Ordered Problems Problem Classification Problem Date Documented Da te Episodic/Chronic Deficiency and other anemia (6 sources) Anemia of chronic disease 04-24-2024 Chronic Disorders of lipid metabolism (7 sources) Pure hyperglyceridemia; Translations: [Pure hyperglyceridemia] Onset: 5 Chronic Esophageal disorders (7 sources) Gastroesophageal reflux disease without esophagitis; Translations: [Gastro-esophageal reflux disease without esophagitis] Onset: 5 Chronic Essential hypertension (6 sources) Benign hypertension 04-24-2024 Chronic Gastrointestinal hemorrhage (1 source) Melena; Translations: [Melena] Onset: Episodic Hyperplasia of prostate (3 sources) Benign prostatic hypertrophy with outflow obstruction; Translations: [Benign prostatic hyperplasia with lower urinary tract symptoms] Onset: 5 Chronic Malaise and fatigue (4 sources) Other fatigue; Translations: [OTHER FATIGUE] Onset: 8 Episodic Miscellaneous mental health disorders (14 sources) Psychosomatic factor in physical condition; Translations: [Psychological and behavioral factors associated with disorders or diseases classified elsewhere] Onset: 5 Chronic Other endocrine disorders (1 source) Testicular hypofunction; Translations: [Testicular hypofunction] Onset: 5 Chronic Other endocrine disorders (2 sources) Male hypogonadism 05-07-2024 Chronic Other gastrointestinal disorders (1 source) Irritable bowel syndrome with diarrhea; Translations: [Irritable bowel syndrome with diarrhea] Onset: 5 Chronic Other gastrointestinal disorders (1 source) Swollen abdomen; Translations: [Abdominal distension (gaseous)] Onset: 5 Episodic Other gastrointestinal disorders (6 sources) Abdominal bloating 04-24-2024 Episodic Other gastrointestinal disorders (6 sources) Black feces 04-24-2024 Episodic Other male genital disorders (3 sources) Acquired buried penis; 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] Onset: 5 Chronic Other male genital disorders (3 sources) Male erectile dysfunction, unspecified; Translations: [Erectile dysfunction] Onset: 5 Chronic Other nutritional; endocrine; and metabolic disorders (1 source) Obesity; Translations: [Other obesity due to excess calories] Onset: 5 Chronic Other nutritional; endocrine; and metabolic disorders (6 sources) Obesity caused by energy imbalance 04-24-2024 Chronic Other screening for suspected conditions (not mental disorders or infectious disease) (8 sources) Encounter for screening for malignant neoplasm [...] status] Onset: 5 Episodic Residual codes; unclassified (6 sources) Current drinker 04-24-2024 Episodic Thyroid disorders (5 sources) Hypothyroidism, unspecified; Translations: [HYPOTHYROIDISM UNSPECIFIED] Onset: 8 Chronic Unclassified (2 sources) Patient encounter status 05-07-2024 Results Test Name Value Interpretation Reference Range Facility Discharge Instructionson Discharge Instructions Discharge Instructions TATE ENCARNACION :1970 Visit Date:05/11/2024 Inpatient Discharge Instructions Your Care Team Admitting Physician - Alejandra Hayden MD Referring Physician - Alejandra Hayden MD Reason for Your Visit IRRITABLE BOWEL SYNDROME WITH DIARRHEA, BLOATING, BLACK STOOLS, CHRONIC GERD Your Diagnosis Change in bowel habits Tests Performed Pathology Tissue Exam -- Results Pending -- Please visit your patient portal for your results or contact your primary care physician. This Is Your Medications List cholecalciferol (Vitamin D3 50 mcg (2000 intl units) oral tablet, chewable) cholestyramine (Questran 4 g/9 g oral powder) fluoxetine (Prozac) icosapent (Vascepa 1 g oral capsule) levothyroxine omeprazole (omeprazole 40 mg Cap-DR) pancrelipase (Zenpep 60,000 units-189,600 units-252,600 units oral delayed release capsule) tadalafil (tadalafil 20 mg Tab) testosterone (AndroGel Pump 20.25 mg/1.25 g (1.62%) transdermal gel) Discharge Vitals Temperature (Temporal Artery) 36.9 ???C Heart Rate (Monitored) 90 Respiratory Rate 13 Blood Pressure 126/79 Height 170 cm Weight 108.6 kg BMI 37.58 What to do next Instructions From Your Doctor Event Name Event Result Discharge Instructions Discharge Instructions Previously Scheduled Follow-Up Appointments Tuesday 9:00 AM EST With: Lesley ROMERO, González Cadena Where: [facility] [address] [place], [place] [address] [address] [address]- Tuesday 9:45 AM EDT With: AURORA ROMERO, Ji Be Where: [facility] [address] [place] [address] [place] [address]- Medications What How Much When Why Instructions Next Dose New omeprazole (omeprazole 40 mg Cap-DR) 1 Capsules By Mouth 2 times a day Refills: 3 Pickup at [facility] Unchanged cholecalciferol (Vitamin D3 50 mcg (2000 intl units) oral tablet, chewable) By Mouth Every day Unchanged cholestyramine (Questran 4 g/ 9 g oral powder) 1 Packets By Mouth 2 times a day Irritable bowel syndrome with diarrhea Bloating Black stool Chronic GERD Unchanged fluoxetine (Prozac) 20 Milligram By Mouth Every day Unchanged icosapent (Vascepa 1 g oral capsule) By Mouth 2 times a day Unchanged levothyroxine Every day Unchanged pancrelipase (Zenpep 60,000 units-189,600 units-252,600 units oral delayed release capsule) See instructions Take 2 caps with each meal and 1 with each snack Unchanged tadalafil (tadalafil 20 mg Tab) 1 Tablets By Mouth As Directed as needed for for erectile dysfunction Pt to take one tab 1 hour prior to sexual activity. Do not exceed 20mg in 24 hours. Unchanged testosterone (AndroGel Pump 20.25 mg/ 1.25 g (1.62%) transdermal gel) 2 Pump Topical Once a day (in the morning) Pharmacy Information [facility]: [address] [place] [id number] [phone] Test Results No qualifying data available. Allergies No Known Allergies No Known Medication [...] affecting medical condition Thyroid function tests abnormal [employer] Peptic Ulcer A peptic ulcer is a sore in the lining of the stomach (gastric ulcer) or the first part of the small intestine (duodenal ulcer). The ulcer causes a gradual wearing away (erosion) of the deeper tissue. What are the causes? Normally, the lining of the stomach and the small intestine protects them from the acid that digests food. The protective lining can be damaged by: ??? An infection caused by a type of bacteria called Helicobacter pylori or H. pylori. ??? Regular use of NSAIDs, such as ibuprofen or aspirin. ??? Rare tumors in the stomach, small intestine, or pancreas (Sharon???Childs syndrome). What increases the risk? The following factors may make you more likely to develop this condition: ??? Smoking. ??? Having a family history of ulcer disease. ??? Drinking alcohol. ??? Having been hospitalized in an intensive care unit (ICU). What are the signs or symptoms? Symptoms of this condition include: ??? Persistent burning pain in the area between the chest and the belly button. The pain may be worse on an empty stomach and at night. ??? Heartburn. ??? Nausea and vomiting. ??? Bloating. If the ulcer results in bleeding, it can cause: ??? Black, tarry stool (more content not included)... Normal [facility] Comment on above: Result Comment: Elec tronically Signed By: Cy SADLER, Mariama\.jeaneth\Date and Time Signed: 05/11/24 09:44 EST Discharge Instructions Discharge Instructions TATE ENCARNACION :1970 Visit Date:05/11/2024 Inpatient Discharge Instructions Your Care Team Admitting Physician - Alejandra Hayden MD Referring Physician - Alejandra Hayden MD Reason for Your Visit IRRITABLE BOWEL SYNDROME WITH DIARRHEA, BLOATING, BLACK STOOLS, CHRONIC GERD Your Diagnosis Change in bowel habits Tests Performed Pathology Tissue Exam -- Results Pending -- Please visit your patient portal for your results or contact your primary care physician. This Is Your Medications List cholecalciferol (Vitamin D3 50 mcg (2000 intl units) oral tablet, chewable) cholestyramine (Questran 4 g/9 g oral powder) fluoxetine (Prozac) icosapent (Vascepa 1 g oral capsule) levothyroxine omeprazole (omeprazole 40 mg Cap-DR) pancrelipase (Zenpep 60,000 units-189,600 units-252,600 units oral delayed release capsule) tadalafil (tadalafil 20 mg Tab) testosterone (AndroGel Pump 20.25 mg/1.25 g (1.62%) transdermal gel) Discharge Vitals Temperature (Temporal Artery) 36.9 ???C Heart Rate (Monitored) 90 Respiratory Rate 13 Blood Pressure 126/79 Height 170 cm Weight 108.6 kg BMI 37.58 What to do next Instructions From Your Doctor No qualifying data available. Previously Scheduled Follow-Up Appointments Tuesday 9:00 AM EST With: Lesley ROMERO, González Cadena Where: [facility] [address] [place] [id number]- Tuesday 9:45 AM EDT With: Ji SIMON MD Where: [facility] [address] [facility] [address] [place] [address] [place] [address]- Medications What How Much When Why Instructions Next Dose New omeprazole (omeprazole 40 mg Cap-DR) 1 Capsules By Mouth 2 times a day Refills: 3 Pickup at [facility] Unchanged cholecalciferol (Vitamin D3 50 mcg (2000 intl units) oral tablet, chewable) By Mouth Every day Unchanged cholestyramine (Questran 4 g/ 9 g oral powder) 1 Packets By Mouth 2 times a day Irritable bowel syndrome with diarrhea Bloating Black stool Chronic GERD Unchanged fluoxetine (Prozac) 20 Milligram By Mouth Every day Unchanged icosapent (Vascepa 1 g oral capsule) By Mouth 2 times a day Unchanged levothyroxine Every day Unchanged pancrelipase (Zenpep 60,000 units-189,600 units-252,600 units oral delayed release capsule) See instructions Take 2 caps with each meal and 1 with each snack Unchanged tadalafil (tadalafil 20 mg Tab) 1 Tablets By Mouth As Directed as needed for for erectile dysfunction Pt to take one tab 1 hour prior to sexual activity. Do not exceed 20mg in 24 hours. Unchanged testosterone (AndroGel Pump 20.25 mg/ 1.25 g (1.62%) transdermal gel) 2 Pump Topical Once a day (in the morning) Pharmacy Information [facility]: [address] [place], [place] [id number] [phone] Test Results No qualifying data available. Allergies No Known Allergies No Known Medication [...] affecting medical condition Thyroid function tests abnormal [employer] Gluten-Free Diet for Celiac Disease, Adult The gluten-free diet includes all foods that do not contain gluten. Gluten is a protein that is found in wheat, rye, barley, and some other grains. Following the gluten-free diet is the only treatment for people with celiac disease. It helps to prevent damage to the intestines and improves or eliminates the symptoms of celiac disease. Following the gluten-free diet requires some planning. It can be challenging at first, but it gets easier with time and practice. There are more gluten-free options available today than ever before. If you need help finding gluten-free foods or if you have questions, talk with your dietitian or health care provider. What are tips for following this plan? Reading food labels Read all food labels. Gluten is often added to foods. Always check the ingredient list and look for warnings that the food may contain gluten. Foods that list any of these valles words on the label usually contain gluten: ??? Wheat, flour, enriched flour, bromated flour, white flour, durum flour, licha flour, phosphated flour, self-rising flour, semolina, farina, barley (malt), rye, and oats. ??? Starch, dextrin, modified food starch, or cereal. ??? Thickening, fillers, or emulsifiers. ??? Malt flavoring, malt extra (more content not included)... Normal [facility] Comment on above: Result Comment: Elec tronically Signed By: Cy SADLER, Mariama\.br\Date and Time Signed: 05/11/24 09:30 EST Main OR Intraoperative Recor don 05-11-2024 Main OR Intraoperative Record Main OR Intraoperative Record IntraOp Document Type FT Summary Primary Physician: Lesley ROMERO, González Cadena Finalized Date/Time: 05/11/24 10:41:05 Pt. Name: TATE ENCARNACION/Sex: 1970 Male Med Rec #: [id number] Physician: Alejandra Hayden MD Financial #: [id number] Pt. Type: O Room/Bed: / Admit/Disch: 05/11/24 07:10:51 - Institution: Case Times FT Entry 1 Patient Times In Room 05/11/24 08:30:00 Out Room 05/11/24 09:08:00 Procedure Times Start 05/11/24 08:35:00 Stop 05/11/24 09:04:00 Anesthesia Times Start 05/11/24 08:30:00 Stop 05/11/24 09:08:00 Time at [facility] 05/11/24 08:49:00 Last Modified By: Becky Negrete RN 05/11/24 09:08:08 General Comments: 0840-EGD completed/WOJCIECH RN 0844-Colonoscopy started/WOJCIECH SADLER 05/11/2024 Chart opened for charge review per Alice Davis RN. [place] Case Attendance FT Entry 1 Entry 2 Entry 3 Case Attendee Geovani HEATH, Gonzalo Negrete RN, Sheldon Martines Role Performed Anesthesiologist Housekeeper Cleaning Cooking - Primary Scrub - Primary Editor School Photograph Time In 05/11/24 08:30:00 05/11/24 08:30:00 05/11/24 08:30:00 Time Out 05/11/24 09:08:00 05/11/24 09:08:00 05/11/24 09:08:00 Procedure EGD AND COLONOSCOPY(.) EGD AND COLONOSCOPY(.) EGD AND COLONOSCOPY(.) Comments Dr. Tay supervising Last Modified By: Penelope SADLER, Becky Negrete RN, Becky Hurt RN 05/11/24 09:08:58 05/11/24 09:08:58 05/11/24 09:08:58 Entry 4 Entry 5 Case Attendee Ty SMITH, Kimberly Sutton MD, González Cadena Role Performed Staff - Other Surgeon - Primary Time In 05/11/24 08:45:00 05/11/24 08:30:00 Time Out 05/11/24 09:08:00 05/11/24 09:08:00 Procedure EGD AND COLONOSCOPY(.) EGD AND COLONOSCOPY(.) Comments help in room Last Modified By: Penelope SADLER, Becky Negrete RN, Becky 05/11/24 09:08:58 05/11/24 09:08:58 Perioperative Protocols FT Pre-Care Text: Implements protective measures prior to operative or invasive procedure, confirms identity before the operative or invasive procedure, verifies operative procedure, surgical site, and laterality Entry 1 Procedure(s) EGD AND COLONOSCOPY(.) Patient Identity Birthday, ID Band Verified (select at Check, Patient least 2): Participation Consents / H and P Anesthesia Consent, Operative Site N/A Verified H&P, Surgery/Procedure Marking Verified Consent Surgical Site No Laterality Verified n/a Verified Procedure Verified Yes Correct Patient Yes Position Verified Availability Equipment, Medication Prep Dry n/a Verified (If Applicable) PreOp Antibiotic No Time Out Gonzalo Muhammad, Given Participants Penelope SADLER, Donna Pena Micala E, Sarmini MD, González Cadena Time Out Complete 05/11/24 08:32:00 Outcomes Met? Yes Last Modified By: Becky Negrete RN 05/11/24 08:37:08 Post-Care Text: The patient is free from signs and symptoms of injury caused by extraneous objects Allergy Information FT Pre-Care Text: Verifies allergies Entry 1 Allergies Reviewed? Yes Allergies Reviewed Self/Patient With Outcomes Met? Yes Last Modified By: Becky Negrete RN 05/11/24 08:37:14 Post-Care Text: The patient received appropriate medication(s) safely administered during the perioperative period Surgical Procedures FT Entry 1 Procedure Description Procedure EGD AND COLONOSCOPY Modifiers . Surgeon Description EGD with duodenal, gastric and esophageal biopsies. Colonoscopy with random colon biopsy, ascending colon polypectomy, transverse colon polypectomy Primary Procedure Yes Primary Surgeon González Sutton MD Start 05/11/24 08:35:00 Stop 05/11/24 09:04:00 Anesthesia Type General Surgical Service Gastroenterology Wound Class 2 - Clean-Contaminated Last Modified By: Becky Negrete RN 05/11/24 09:05:19 General Case Data FT Pre-Care Text: Classifies surgical wound, implements aseptic technique, initiates traffic control Entry 1 Case Information OR ENDO 1 FT Case Level Level 2 Wound Class 2 - Clean-Contaminated Specialty Gastroenterology ASA Class 2 Preop Diagnosis Change in bowel habits, Postop Same As Preop No chronic GERD Postop Diagnosis EGD-LA Grade B Outcomes Met? Yes esophagitis, yellow flakes in esophagus, erosive gastritis, small antral ulcers. Colonoscopy -severe diverticulosis, ascending colon polyp, transverse colon polyp, internal hemorrhoids Last Modified By: Becky Negrete RN 05/11/24 09:05:38 Post-Care Text: The patient is free from signs and symptoms of infection Skin Assessment (Pre Procedure) FT Pre-Care Text: Implements protective measures to prevent skin/ tissue injury due to thermal or mechanical sources Evaluates for signs and symptoms of physical injury to skin and tissue Entry 1 Skin Integrity Intact, [place], Warm, & Skin Abnormality No Dry Outcomes Met? Yes Last Modified By: Becky Negrete RN 05/11/24 09:06:34 Post-Care Text: The patient is free from signs and sym (more content not included)... Normal [facility] Main OR PACU II [facility] Main OR PACU II Record Main OR PACU II Record PACU Phase II Document Type FT Summary Primary Physician: González Sutton MD Finalized Date/Time: 05/11/24 10:02:45 Pt. Name: TATE ENCARNACION/Sex: 1970 Male Med Rec #: [id number] Physician: Alejandra Hayden MD Financial #: [id number] Pt. Type: O Room/Bed: / Admit/Disch: 05/11/24 07:10:51 - Institution: Case Times PACU II FT Pre-Care Text: Identifies barriers to communication and implements measures to provide psychological support and determines knowledge level Develops individualized plan of care, and ensures continuity of care Maintains patient's dignity and privacy, and maintains patient confidentiality Identifies and reports philosophical, cultural, and spiritual beliefs and values Identifies individual values and wishes concerning care administers prescribed antibiotic therapy and immunizing agents as ordered, Evaluates postoperative tissue perfusion Implements thermoregulation measures, and monitors body temperature Evaluates postoperative respiratory status Evaluates postoperative cardiac status Evaluates postoperative neurological status Assesses pain control, collaborated in initiating patient-controlled analgesia and implements alternative methods of pain control Verifies allergies, administers prescribed medications and solutions, evaluates response to medications Entry 1 In PACU II 05/11/24 09:10:00 Discharge from PACU 05/11/24 09:45:00 II Outcomes Met? Yes Last Modified By: Mariama Benoit RN 05/11/24 10:02:38 Post-Care Text: The patient demonstrates knowledge of the expected response to the operative or invasive procedure The patient's care is consistent with the individualized perioperative plan of care The patient's right to privacy is maintained The patient's value system, lifestyle, ethnicity, and culture are considered, respected, and incorporated into the perioperative plan of care The patient participates in decisions affecting his or her perioperative plan of care. The patient is free from signs and symptoms of infection The patient has wound/tissue perfusion consistent with or improved from baseline levels established preoperatively The patient is at or returning to normothermia at the conclusion of the immediate postoperative period The patient's respiratory function is consistent with or improved from baseline levels established preoperatively The patient's cardiovascular status is consistent with or improved from baseline levels established preoperatively The patient's neurological status is consistent with or improved from baseline levels established preoperatively The patient demonstrates and/or reports adequate pain control throughout the perioperative period The patient received appropriate medication(s), safely administered during the perioperative period Finalized By: Mariama Benoit RN Document Signatures Signed By: Mariama Benoit RN 05/11/24 10:02 [facility] [facility] Main OR Preoperative Recordo n 05-11-2024 Main OR Preoperative Record Main OR Preoperative Record Holding Area Document Type FT Summary Primary Physician: González Sutton MD Finalized Date/Time: 05/11/24 07:18:36 Pt. Name: TATE ENCARNACION./Sex: 1970 Male Med Rec #: [id number] Physician: Alejandra Hayden MD Financial #: [id number] Pt. Type: O Room/Bed: / Admit/Disch: 05/11/24 07:10:51 - Institution: Case Times Holding FT Pre-Care Text: Verifies consent for planned procedure, identifies individual values and wishes concerning care, includes family members in perioperative teaching Secures patient's records' belongings, and valuables, maintains patient's dignity and privacy, and maintains patient confidentiality Entry 1 In Holding 05/11/24 07:10:00 Outcomes Met? Yes Last Modified By: Rachel Cortez RN 05/11/24 07:17:41 Post-Care Text: The patient participates in decisions affecting his or her perioperative plan of care The patient's right to privacy is maintained Surgery Checklist FT Entry 1 Patient Birthday, ID Band Procedure History and Physical, Identification: Check, Patient Verification: Surgical Consent, With Participation Patient NPO after Midnight: Yes Date/Time: 05/11/24 01:00:00 Personal Items CLOTHES, SHOES Limitations: N/A Comment: Complaints of Pain: No Pain Comment: DENIES Operative Site n/a Marked By: N/A Marking: Availability Equipment Verified: Does Patient Smoke Yes If Yes to Smoking. MARIJUANA Cigars or Cigarettes. How much per day? Patient states Yes Comment - Adult BROTHER- YOEL postop adult Supervision supervision available Case Cancelled in No Holding Area see comments below for reason Last Modified By: Rachel Cortez RN 05/11/24 07:18:34 General Comments: Pt finished colon prep at 0100, states stool is clear liquid yellow, has been NPO since. 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 Your Care Team Attending Physician - Ji SIMON MD Primary Care Physician - NEW GARRISON CNP [...] Appointments Tuesday 8:15 AM EST With: Where: [facility] Tuesday 9:00 AM EST With: Lesley ROMERO, González Cadena Where: [facility] [address] [place] [address] [place] [address]- Tuesday 9:45 AM EDT With: Ji SIMON MD Where: [facility] [address] [place] [address]- You Need to Schedule the Following Appointments Follow Up with Ji SIMON MD, URL When: Comments: 4 mos w/ PSA and T level Where: [facility] [address] , [place] [address]- [phone] Medications What How Much When Why Instructions New tadalafil (tadalafil 20 mg Tab) 1 Tablets By Mouth As Directed as needed for for erectile dysfunction Pt to take one tab 1 hour prior to sexual activity. Do not exceed 20mg in 24 hours. Pickup at [facility] New testosterone (AndroGel Pump 20.25 mg/ 1.25 g (1.62%) transdermal gel) 2 Pump Topical Once a day (in the morning) Refills: 3 Pickup at [facility] Unchanged cholecalciferol (Vitamin D3 50 mcg [...] physician if questions or concerns Pharmacy Information [facility]: [address] [place], [place] [id number] [phone] Allergies No Known Allergies No Known Medication [...] gives men (more content not included)... Normal [facility] Urology Office/Clinic Noteon 05-07-2024 Urology Office/Clinic Note [...] for age, normal judgement, euthymic mood. Assessment/Plan Tate is a 53 yo male new pt [...] Androgel 2 pumps daily. Rx sent to [facility]. Recommended GoodRx. -F/u in 4 mos w/ [...] buried peni (more content not included)... Normal [facility] Comment on above: Result Comment: Elec tronically Signed By: Ji SIMON MD\.br\Date and Time Signed: 05/07/24 10:05 EST\.br\Electronically Co-Signed By: Nirmala Lama\.br\Date and Time Co-Signed: 05/07/24 09:58 EST Calprotectin, Fecalon 2024 Calprotectin (Stl) [Mass/Mass] 15 mcg/gm Invalid Interpretation Code 0-120 [facility] Comment on above: Result Comment: Conc entration Interpretation Follow-Up < 5 - 50 ug/g Normal None >50 -120 ug/g Borderline Re-evaluate in 4-6 weeks >120 ug/g Abnormal Repeat as clinically indicated Performed at: [facility] [address] [id number] MD Alfredo Green Performed By: #### 1 [id number] #### [facility] [address] [place] [address] Pancreatic Elastase, Fecalon 04-28-2024 Elastase.pancreatic (Stl) [Mass/Mass] 9 Low >200 [facility] Comment on above: Result Comment: Nicole re Pancreatic Insufficiency: <100 Moderate Pancreatic Insufficiency: 100 - 200 Normal: >200 Performed at: [facility] [id number] MD Alfredo Green Performed By: #### 1 [id number] ####[facility] [address] [place] [address] US Abdomen, Limitedon 2024 US Abdomen, Limited [...] Transcribed by: MARIA C Technologist: Eric YING [facility] Celiac Disease Comprehensive on 04-25-2024 Endomysium IgA Ql (S) Negative Invalid Interpretation Code Negative [facility] Comment on above: Result Comment: Seru m is slightly lipemic. Performed By: #### 1 [id number] #### [facility] [address] [place] [address] Gliadin peptide IgA Qn (S) 4 unit(s) Invalid Interpretation Code 0-19 [facility] Comment on above: Result Comment: Nega tive 0 - 19 Weak Positive 20 - 30 Moderate to Strong Positive >30 Performed By: #### 1 [id number] #### [facility] [address] [place] [address] Gliadin peptide IgG Qn (S) 2 unit(s) Invalid Interpretation Code 0-19 [facility] Comment on above: Result Comment: Nega tive 0 - 19 Weak Positive 20 - 30 Moderate to Strong Positive >30 Performed By: #### 1 [id number] #### [facility] [address] [place] [address] IgA [Mass/Vol] 213 mg/dL Invalid Interpretation Code 90-386 [facility] Comment on above: Result Comment: Perf ormed at: [address] [id number] PhD Franklin Pollard Performed By: #### 1 [id number] #### [facility] [address] [place] [id number] tTG IgA Qn (S) <2 Invalid Interpretation Code 0-3 [facility] Comment on above: Result Comment: Nega tive 0 - 3 Weak Positive 4 - 10 Positive >10 Tissue Transglutaminase (tTG) has been identified as the endomysial antigen. Studies have demonstr- ated that endomysial IgA antibodies have over 99% specificity for gluten sensitive enteropathy. Performed By: #### 1 [id number] #### [facility] [address] [place] [address] tTG IgG Qn (S) <2 Invalid Interpretation Code 0-5 [facility] Comment on above: Result Comment: Nega tive 0 - 5 Weak Positive 6 - 9 Positive >9 Performed By: #### 1 [id number] #### [facility] [address] [place] [address] Testost Totalon 04-25-2024 Testosterone [Mass/Vol] 194 ng/dL Low 264-916 [facility] Comment on above: Result Comment: Adul t male reference interval is based on a population of healthy nonobese males (BMI <30) between 19 and 39 years old. Mildred et.al. JCEM 2017,102;6230-5574. PMID: [id number]. Performed at: [address] [id number] PhD Franklin Pollard Performed By: #### 2 [id number] #### [facility] [address] [place] [address] Ambulatory Visit Summaryon 0 - Ambulatory Visit Summary Ambulatory Visit Summary TATE ENCARNACION :1970 Visit Date:04/24/2024 Ambulatory Visit Instructions Your Diagnosis Irritable bowel syndrome with diarrhea Bloating Black stool Chronic GERD Decreased sexual desire Alcohol drinker Stress-related physiological response affecting medical condition High triglycerides Obesity due to excess calories Your Care Team Attending Physician - Alejandra Hayden MD Primary Care Physician - NEW GARRISON CNP [...] Follow-Up Appointments Tuesday 9:00 AM EST With: Alejandra Hayden MD Where: [facility] [address] [place] [address] Ave [address] [address]- You Need to Complete the Following C-Reactive [...] Label By Order Location US Abdomen, Limited, 04/24/24, Routine, Order for future visit, Transport Mode: Ambulatory, Reason: Abdominal pain, No, Irritable bowel syndrome with diarrhea Bloating Black stool Chronic GERD Decreased sexual desire, pp_set_radiology_subs [facility], [facility] Medications What How Much When Why Instructions New cholestyramine (Questran 4 g/ 9 g oral powder) 1 Packets By Mouth 2 times a day Irritable bowel syndrome with diarrhea Bloating Black stool Chronic GERD Pickup at [facility] Unchanged cholecalciferol (Vitamin D3 50 mcg [...] physician if questions or concerns Pharmacy Information [facility]: [address] [place], [place] [id number] [phone] Medications and Immunizations Administered Not Given influenza [...] for choosing us for your care. Normal [facility] CHEMISTRYOrdered By: SYSTEM SYSTEM on 04-24-2024 CRP [Mass/Vol] 0.2 mg/dL Normal <=1.9mg/dL Remisol Ch em CRPon 04-24-2024 CRP [Mass/Vol] 0.2 mg/dL Normal <=1.9 [facility] Comment on above: Performed By: #### 2 [id number] #### [facility] [address] [place] [address] Gastroenterology Office/Clin ic Noteon 04-24-2024 Gastroenterology Office/Clinic [...] BID, # 60 EA, Refills(s) 0, Pharmacy: [facility], 170, cm, 04/24/24 8:57:00 EST, Height/Length Dosing, 108.6, kg, 04/24/24 8:57:00 EST, Weight Dosing C-Reactive Protein Calprotectin, Fecal Celiac Disease Comprehensive Colonoscopy (Hospital Procedure) EGD Endoscopy (Hospital Procedure) IgA, Quant. Pancreatic Elastase, Fecal Pancreatic Elastase, Fecal Testosterone Level Total US Abdomen, Limited 2. Bloating (R14.0: Abdominal distension (gaseous)) Ordered: cholestyramine, = 1 packet(s), Oral, BID, # 60 EA, Refills(s) 0, Pharmacy: [facility], 170, cm, 04/24/24 8:57:00 EST, Height/Length Dosing, 108.6, kg, 04/24/24 8:57:00 EST, Weight Dosing C-Reactive Protein Calprotectin, Fecal Celiac Disease Comprehensive Colonoscopy (Hospital Procedure) EGD Endoscopy (Hospital Procedure) IgA, Quant. Pancreatic Elastase, Fecal Pancreatic Elastase, Fecal Testosterone Level Total US Abdomen, Limited 3. Black stool (K92.1: Melena) Ordered: cholestyramine, = 1 packet(s), Oral, BID, # 60 EA, Refills(s) 0, Pharmacy: [facility], 170, cm, 04/24/24 8:57:00 EST, Height/Length [...] BID, # 60 EA, Refills(s) 0, Pharmacy: [facility], 170, cm, 04/24/24 8:57:00 EST, Height/Length Dosing, 108.6, kg, 04/24/24 8:57:00 EST, Weight Dosing C-Reactive Protein Calprotectin, Fecal Celiac Disease Comprehensive Colonoscopy (Hospital Procedure) EGD Endoscopy (Hospital Procedure) IgA, Quant. Pancreatic Elastase, Fecal Pancreatic Elastase, Fecal Testosterone Level Total US Abdomen, Limited 5. Decreased sexual desire (F52.0: Hypoactive sexual desire disorder) Ordered: [facility] Ambulatory Referral Pancreatic Elastase, Fecal Testosterone Level Total US Abdomen, Limited 6. Alcohol drinker (Z78.9: Other specified health status) 7. Stress-related physiological response affecting medical condition (F54: Psychological and behavioral factors associated with disorders or diseases classified elsewhere) 8. High triglycerides (E78.1: Pure hyperglyceridemia) 9. Obesity due to excess calories (E66.09: Ot (more content not included)... Normal [facility] Comment on above: Result Comment: Elec tronically Signed By: Jackelyn ROMERO, Alejandra Kelly\.br\Date and Time Signed: 04/24/24 09:30 EST FREE T3on 03-15-2018 T3 free mass conc 3.10 pg/mL Normal 2.77-5.27 [facility] [place] [facility] Comment on above: Performed By: #### B MP, LIVER, FT3, LIPID, PSASC, TSH, DLDL ####[facility] Vnesw[address] [place] FREE T4on 03-15-2018 T4 free mass conc 0.88 ng/dL Normal 0.78-2.19 [facility] [place] [facility] Comment on above: Performed By: #### B MP, LIVER, FT3, LIPID, PSASC, TSH, DLDL ####[facility] Yrkfnppyhi[address] [place] TSHon 03-15-2018 Thyrotropin Qn 7.705 uIU/mL Critically high 0.470-4.680 [facility] Comment on above: Performed By: #### B MP, LIVER, FT3, LIPID, PSASC, TSH, DLDL ####[facility] Ttotfwrhzx4[address] [place] Thyrotropin Qn SEE BELOW Normal [facility] Comment on above: Result Comment: <0.3 4 UIU/ml HYPERTHYROID 0.34-5.60 UIU/ml EUTHYROID >5.60 UIU/ml HYPOTHYROID Performed By: #### B MP, LIVER, FT3, LIPID, PSASC, TSH, DLDL ####[facility] Nkrqwclcrm59[address] [place] TESTOSTERONE, TOTALon 2017 Testosterone [Mass/volume] in Serum or Plasma 314 ng/dL Normal 264-916 [facility] Comment on above: Result Comment: Adul t male reference interval is based on a population ofhealthy nonobese males (BMI <30) between 19 and 39 years old.Mildred et.al. JCEM 2017,102;9011-1685. PMID: [id number]. Performed By: #### B MP, LIVER, FT3, LIPID, PSASC, TSH, DLDL ####[facility] Sats[address]ie[address]51 [address] [place] FREE T3on 01-02-2018 T3 free mass conc 2.98 pg/mL Normal 2.77-5.27 [facility] [place] [facility] Comment on above: Performed By: #### B MP, LIVER, FT3, LIPID, PSASC, TSH, DLDL ####[facility] [address] [place], [place] [address]Rnpsmt [place] FREE T4on 01-02-2018 T4 free mass conc 0.89 ng/dL Normal 0.78-2.19 [facility] [place] [facility] Comment on above: Performed By: #### B MP, LIVER, FT3, LIPID, PSASC, TSH, DLDL ####[facility] [address] [place], [place] [address]Evmcsw [place] TSHon 01-02-2018 Thyrotropin Qn 5.999 uIU/mL Critically high 0.470-4.680 [facility] Comment on above: Performed By: #### B MP, LIVER, FT3, LIPID, PSASC, TSH, DLDL ####[facility] [address] [place] [id number] [place] Thyrotropin Qn SEE BELOW Normal [facility] Comment on above: Result Comment: <0.3 4 UIU/ml HYPERTHYROID 0.34-5.60 UIU/ml EUTHYROID >5.60 UIU/ml HYPOTHYROID Performed By: #### B MP, LIVER, FT3, LIPID, PSASC, TSH, DLDL ####[facility] [address] [place] [id number] CBC AUTO DIFFon 09-14-2017 Basophils Auto #/vol (Bld) 0.1 103/ul Normal 0.0-0.1 [facility] Comment on above: Performed By: #### C BC ####[facility] [address] [place] [address] [place] Basophils/100 WBC Auto (Bld) 0.8 % Normal 0.2-2.0 [facility] Comment on above: Performed By: #### C BC ####[facility] [address] [place], [place] [address]Gerken [place] Eosinophils Auto #/vol (Bld) 0.1 103/ul Normal 0.0-0.7 [facility] Comment on above: Performed By: #### C BC ####[facility] [address] [place], [place] [address]Gerken [place] Eosinophils/100 WBC Auto (Bld) 1.4 % Normal 0.9-7.0 [facility] Comment on above: Performed By: #### C BC ####[facility] [address] [place] [address] [place] Erythrocyte distribution width Auto Ratio (RBC) 13.2 % Normal 11.0-15.0 [facility] Comment on above: Performed By: #### C BC ####[facility] [address] [place], [place] [address]Gerken [place] Hematocrit Auto Volume Fraction (Bld) 43.7 % Normal 42.0-54.0 [facility] Comment on above: Performed By: #### C BC ####[facility] Ngqwgynyao[address] [place] Hemoglobin mass conc (Bld) 15.2 g/dL Normal 14.0-18.0 [facility] Comment on above: Performed By: #### C BC ####[facility] Klagupdixk40[address] [place] IG # 0.05 10e3/ul Critically high 0.00-0.03 [facility] Comment on above: Performed By: #### C BC ####[facility] [address] [place] [address] [place] IG % 0.7 % Critically high 0.0-0.5 [facility] Comment on above: Performed By: #### C BC ####[facility] [address] [place] [address] [place] Lymphocytes Auto #/vol (Bld) 1.7 103/ul Normal 1.2-3.8 [facility] Comment on above: Performed By: #### C BC ####[facility] [address] [place] [address] [place] Lymphocytes/100 WBC Auto (Bld) 23.7 % Normal 20.5-60.0 [facility] Comment on above: Performed By: #### C BC ####[facility] [address] [place] [address] [place] MANUAL DIFF REQ NO Normal [facility] Comment on above: Performed By: #### C BC ####[facility] [address] [place] [address] [place] MCH Auto Entitic mass (RBC) 33.8 pg Normal 25.9-34.0 [facility] Comment on above: Performed By: #### C BC ####[facility] Ufbvfxguge[address] [place] MCHC Auto mass conc (RBC) 34.8 g/dL Normal 29.9-35.2 [facility] Comment on above: Performed By: #### C BC ####[facility] K[address]lfkg[address]0518 [place], [place] [address]Zkradc [place] MCV Auto Entitic volume (RBC) 97.1 fL Critically high 80.0-94.0 [facility] Comment on above: Performed By: #### C BC ####[facility] [address] [place], [place] [address] [place] Monocytes Auto #/vol (Bld) 0.5 103/ul Normal 0.3-0.8 [facility] Comment on above: Performed By: #### C BC ####[facility] [address] [place], [place] [address]ken [place] Monocytes/100 WBC Auto (Bld) 7.0 % Normal 1.7-12.0 [facility] Comment on above: Performed By: #### C BC ####[facility] [address] [place], [place] [address]ken [place] Neutrophils Auto #/vol (Bld) 4.7 103/ul Normal 1.4-6.5 [facility] Comment on above: Performed By: #### C BC ####[facility] Q[address] [place], [place] [address]ken [place] Neutrophils/100 WBC Auto (Bld) 66.4 % Normal 43.0-75.0 [facility] Comment on above: Performed By: #### C BC ####[facility] [address] [place], [place] [address]ken [place] Platelet mean volume Auto Entitic volume (Bld) 10.7 fL Normal 9.5-13.5 [facility] Comment on above: Performed By: #### C BC ####[facility] [address] [place], [place] [address] Platelets Auto #/vol (Bld) 223 103/ul Normal 150-450 [facility] Comment on above: Performed By: #### C BC ####[facility] [address] [place], [place] [address] RBC Auto #/vol (Bld) 4.50 106/ul Critically low 4.70-6.10 [facility] Comment on above: Performed By: #### C BC ####[facility] Ougjgtsrbz[address] [place] WBC Auto #/vol (Bld) 7.1 103/ul Normal 4.0-11.0 [facility] Comment on above: Performed By: #### C BC ####[facility] Olznzczoad[address] [place] DIRECT LDLon 09-14-2017 Cholesterol in LDL mass conc SEE BELOW Normal [facility] Comment on above: Result Comment: <100 mg/dl OPTIMAL 100 - 129 mg/dl NEAR OR ABOVE OPTIMAL 130 - 159 mg/dl BORDERLINE HIGH 160 - 189 mg/dl HIGH >190 mg/dl VERY HIGH Performed By: #### B MP, LIVER, FT3, LIPID, PSASC, TSH, DLDL ####[facility] [address] [place] [address] [place] Cholesterol in LDL mass conc 45 mg/dL Normal [facility] Comment on above: Performed By: #### B MP, LIVER, FT3, LIPID, PSASC, TSH, DLDL ####[facility] Vgcqxjbviq[address] [place] FREE T3on 09-14-2017 T3 free mass conc 4.33 pg/mL Normal 2.77-5.27 [facility] [place] [facility] Comment on above: Performed By: #### B MP, LIVER, FT3, LIPID, PSASC, TSH, DLDL ####[facility] [address] [place] [id number] FREE T4on 09-14-2017 T4 free mass conc 0.67 ng/dL Critically low 0.78-2.19 [facility] Comment on above: Performed By: #### F T4 ####[facility] Lsyyatmlak[address] [place] GLYCOHEMOGLOBIN A1Con 2017 Glucose mass conc 108 mg/dL Normal [facility] [place] [facility] Comment on above: Performed By: #### A 1C ####[facility] [address] [place], [place] [address]Rcqymj [place] Hemoglobin A1c/Hemoglobin.total mass fraction (Bld) 5.4 % Normal <=6.0 [facility] Comment on above: Performed By: #### A 1C ####[facility] [address] [place] [address] LIPID PROFILEon 09-14-2017 CHOL-HDL RATIO NORM SEE BELOW Normal [facility] Comment on above: Result Comment: 3.3 - 4.4 LOW RISK 4.4 - 7.1 AVERAGE RISK 7.1 - 11.0 MODERATE RISK >11.0 HIGH RISK Performed By: #### B MP, LIVER, FT3, LIPID, PSASC, TSH, DLDL ####[facility] Myupvhmqig[address] [place] Cholesterol in HDL mass conc 34 mg/dL Normal [facility] Comment on above: Result Comment: A po sitive bias may be seen with a triglyceride level over 600 mg/dL Performed By: #### B MP, LIVER, FT3, LIPID, PSASC, TSH, DLDL ####[facility] [address] [place] [address] Cholesterol in HDL mass conc > or = 60 mg/dl - LOW CARDIOVASCULAR RISK <40 mg/dl - HIGH CARDIOVASCULAR RISK Normal [facility] Comment on above: Performed By: #### B MP, LIVER, FT3, LIPID, PSASC, TSH, DLDL ####[facility] [address] [place] [address] Cholesterol mass conc 199 mg/dL Normal <=200 [facility] Comment on above: Performed By: #### B MP, LIVER, FT3, LIPID, PSASC, TSH, DLDL ####[facility] [address] [place] [address] Cholesterol.total/Cho lesterol in HDL mass ratio 6.0 {ratio} Normal [facility] Comment on above: Performed By: #### B MP, LIVER, FT3, LIPID, PSASC, TSH, DLDL ####[facility] Algvziomqa[address] [place] Triglyceride mass conc 1177 mg/dL Critically high <=150 [facility] Comment on above: Performed By: #### B MP, LIVER, FT3, LIPID, PSASC, TSH, DLDL ####[facility] Dkxtvjwfyy7[address] [place] LIVER PROFILEon 09-14-2017 Albumin mass conc 4.6 g/dL Normal 3.5-5.0 [facility] Comment on above: Performed By: #### B MP, LIVER, FT3, LIPID, PSASC, TSH, DLDL ####[facility] Udgwhnfjgn[address] [place] Albumin/Globulin mass ratio 1.5 {ratio} Normal [facility] Comment on above: Performed By: #### B MP, LIVER, FT3, LIPID, PSASC, TSH, DLDL ####[facility] Ksvadnuqvn[address] [place] ALP enzyme act/vol 66 U/L Normal 38-126 [facility] Comment on above: Performed By: #### B MP, LIVER, FT3, LIPID, PSASC, TSH, DLDL ####[facility] Cmalobuyrk[address]58 [address] [place] ALT enzyme act/vol 66 U/L Normal 21-72 [facility] Comment on above: Performed By: #### B MP, LIVER, FT3, LIPID, PSASC, TSH, DLDL ####[facility] Rgufwhbmvm2802 [address] [place] AST enzyme act/vol 48 U/L Normal 17-59 [facility] Comment on above: Performed By: #### B MP, LIVER, FT3, LIPID, PSASC, TSH, DLDL ####[facility] Waybmbjmdg[address]23 [address] [place] BILI, CONJUGATED 0.0 mg/dL Normal 0.0-0.3 [facility] [facility] Comment on above: Performed By: #### B MP, LIVER, FT3, LIPID, PSASC, TSH, DLDL ####[facility] [id number] [address] [place] Bilirubin Ql (U) 0.3 mg/dL Normal 0.2-1.3 [facility] Comment on above: Performed By: #### B MP, LIVER, FT3, LIPID, PSASC, TSH, DLDL ####[facility] Cmpsydwiyr7443 [address] [place] Globulin Calculated mass conc (S) 3.1 g/dL Normal [facility] Comment on above: Performed By: #### B MP, LIVER, FT3, LIPID, PSASC, TSH, DLDL ####[facility] Lzlkwlgbcg9620 [address] [place] Protein mass conc 7.7 g/dL Normal 6.1-8.2 [facility] [place] [facility] Comment on above: Performed By: #### B MP, LIVER, FT3, LIPID, PSASC, TSH, DLDL ####[facility] Ipozobnvkd4106 [address] [place] PROF CHEM 8 (BAS METB)on Anion gap 3 molar conc 10.0 mmol/L Normal [facility] Comment on above: Performed By: #### B MP, LIVER, FT3, LIPID, PSASC, TSH, DLDL ####[facility] Aminknpymk8223 [address] [place] Calcium mass conc 9.6 mg/dL Normal 8.4-10.2 [facility] [place] [facility] Comment on above: Performed By: #### B MP, LIVER, FT3, LIPID, PSASC, TSH, DLDL ####[facility] Icqnlmftum2142 [address] [place] Chloride molar conc 104 mmol/L Normal 98-107 [facility] Comment on above: Performed By: #### B MP, LIVER, FT3, LIPID, PSASC, TSH, DLDL ####[facility] Spywcxbwit4847 [address] [place] CO2 molar conc 25.0 mmol/L Normal 22.0-30.0 The [facility] Comment on above: Performed By: #### B MP, LIVER, FT3, LIPID, PSASC, TSH, DLDL ####[facility] Ivkeesusfk8122 [address] [place] Creatinine mass conc 0.96 mg/dL Normal 0.66-1.25 [facility] Comment on above: Performed By: #### B MP, LIVER, FT3, LIPID, PSASC, TSH, DLDL ####[facility] Xuwkmyauin7848 [address] [place] EGFR-AF BERMUDIAN >60 Normal >=60 [facility] Comment on above: Performed By: #### B MP, LIVER, FT3, LIPID, PSASC, TSH, DLDL ####[facility] Disbtmvpln1136 [address] [place] EGFR-NON AF BERMUDIAN >60 Normal >=60 [facility] Comment on above: Performed By: #### B MP, LIVER, FT3, LIPID, PSASC, TSH, DLDL ####[facility] Gtqwnekcxw7221 [address] [place] Glucose mass conc 97 mg/dL Normal 74-106 [facility] [place] [facility] Comment on above: Performed By: #### B MP, LIVER, FT3, LIPID, PSASC, TSH, DLDL ####[facility] Ogsojvhcce5759 [address] [place] Potassium molar conc 4.2 mmol/L Normal 3.4-5.0 [facility] Comment on above: Performed By: #### B MP, LIVER, FT3, LIPID, PSASC, TSH, DLDL ####[facility] Xawrpnczgn2069 [address] [place] Sodium molar conc 135 mmol/L Critically low 137-145 [facility] Comment on above: Performed By: #### B MP, LIVER, FT3, LIPID, PSASC, TSH, DLDL ####[facility] Jzdueujzsi9856 [address] [place] Urea nitrogen mass conc 14.0 mg/dL Normal 9.0-20.0 [facility] Comment on above: Performed By: #### B MP, LIVER, FT3, LIPID, PSASC, TSH, DLDL ####[facility] Efnzebafrh2626 [address] [place] Urea nitrogen/Creatinine mass ratio 14.8 mg/mg Normal [facility] Comment on above: Performed By: #### B MP, LIVER, FT3, LIPID, PSASC, TSH, DLDL ####[facility] Drlumxqmal9549 [address] [place] TSHon 09-14-2017 Thyrotropin Qn SEE BELOW Normal [facility] Comment on above: Result Comment: <0.3 4 UIU/ml HYPERTHYROID 0.34-5.60 UIU/ml EUTHYROID >5.60 UIU/ml HYPOTHYROID Performed By: #### B MP, LIVER, FT3, LIPID, PSASC, TSH, DLDL ####[facility] Vbskiexbed8862 [address] [place] Thyrotropin Qn 6.140 uIU/mL Critically high 0.470-4.680 Th e [facility] Comment on above: Performed By: #### B MP, LIVER, FT3, LIPID, PSASC, TSH, DLDL ####[facility] Qjooujaamk2050 [address] [place] Vital Signs Date Time Vital Sign Value Performing Clinician Facility 05-11-2024 09:40-0500 Diastolic blood pressure 77 mm[Hg] Alejandra Hayden [facility] 05-11-2024 09:40-0500 Heart rate 61 /min Alejandra Hayden [facility] 05-11-2024 09:40-0500 Respiratory rate 13 /min Alejandra Hayden [facility] 05-11-2024 09:40-0500 SaO2% (BldA) [Mass fraction] 94 % Alejandra Hayden [facility] 05-11-2024 09:40-0500 Systolic blood pressure 140 mm[Hg] Mohamad Mouchli [facility] 05-11-2024 09:20-0500 Diastolic blood pressure 83 mm[Hg] Mohamad Mouchli [facility] 05-11-2024 09:20-0500 Heart rate 89 /min Mohamad Mouchli [facility] 05-11-2024 09:20-0500 Respiratory rate 22 /min Mohamad Mouchli [facility] 05-11-2024 09:20-0500 SaO2% (BldA) [Mass fraction] 94 % Mohamad Mouchli [facility] 05-11-2024 09:20-0500 Systolic blood pressure 145 mm[Hg] Mohamad Mouchli [facility] 05-11-2024 09:15-0500 Diastolic blood pressure 79 mm[Hg] Mohamad Mouchli [facility] 05-11-2024 09:15-0500 Heart rate 90 /min Mohamad Mouchli [facility] 05-11-2024 09:15-0500 Respiratory rate 13 /min Mohamad Mouchli [facility] 05-11-2024 09:15-0500 SaO2% (BldA) [Mass fraction] 98 % Mohamad Mouchli [facility] 05-11-2024 09:15-0500 Systolic blood pressure 126 mm[Hg] Mohamad Mouchli [facility] 05-11-2024 09:10-0500 Body temperature 98.42 [degF] Mohamad Mouchli [facility] 05-11-2024 09:05-0500 Respiratory rate 14 /min Ritad Celestineuchli [facility] 05-11-2024 08:55-0500 Respiratory rate 22 /min Ritad Celestineuchli [facility] 05-11-2024 07:28-0500 Blood Pressure Location Ritad Celestineuchli [facility] 05-11-2024 07:28-0500 Body temperature 97.88 [degF] Teenaamad Mouchli [facility] 05-07-2024 09:34-0500 Diastolic blood pressure 82 mm[Hg] Ji SIMON [facility] 05-07-2024 09:34-0500 Mean blood pressure 109 mm[Hg] Ji SIMON [facility] 05-07-2024 09:34-0500 Systolic blood pressure 164 mm[Hg] Ji SIMON [facility] 05-07-2024 09:11-0500 Diastolic blood pressure 86 mm[Hg] Ji SIMON [facility] 05-07-2024 09:11-0500 Heart rate 74 /min Ji SIMON [facility] 05-07-2024 09:11-0500 Respiratory rate 16 /min Ji SIMON [facility] 05-07-2024 09:11-0500 Systolic blood pressure 168 mm[Hg] Ji SIMON [facility] 04-24-2024 08:57-0500 Blood Pressure Location Alejandra Hayden [facility] 04-24-2024 08:57-0500 Diastolic blood pressure 80 mm[Hg] Alejandra Spragueuchli [facility] 04-24-2024 08:57-0500 Heart rate 71 /min Alejandra Hayden [facility] 04-24-2024 08:57-0500 Systolic blood pressure 125 mm[Hg] Alejandra Hayden [facility] Encounters Encounter Date Encounter Type Care Provider Facility Start: 05-21-2024 ambulatory González Sutton Facility:[facility] Start: 05-11-2024 End: 05-11-2024 ambulatory Ritad A. Mouchli Facility[facility] Start: 05-11-2024 End: 05-11-2024 Patient encounter procedure Alejandra Hayden [facility] Start: 05-07-2024 End: 05-07-2024 ambulatory Mo[facility]ad A. [facility]ouchli [facility] Start: 05-07-2024 End: 05-07-2024 Patient encounter procedure Ji SIMON [facility] Start: 04-27-2024 ambulatory Teenaamad Mouchli Facilit y:[facility] [place] Start: 04-26-2024 End: 04-26-2024 ambulatory Mohamad A. Mouchli Facility:[facility] Start: 04-26-2024 End: 04-26-2024 Patient encounter procedure Alejandra Spragueuchli [facility] Start: 04-25-2024 End: 04-25-2024 ambulatory Alejandra Hayden Facility:[facility] Start: 04-25-2024 End: 04-25-2024 Lab Drop off Alejandra Hayden [facility] Start: 04-24-2024 End: 04-24-2024 ambulatory Alejandra Hayden Facility:[facility] Start: 04-24-2024 End: 04-24-2024 Patient encounter procedure Alejandra Hayden [facility] Start: 04-24-2024 End: 04-24-2024 ambulatory Alejandra Hayden Facility:[facility] Start: 04-24-2024 End: 04-24-2024 Patient encounter procedure Alejandra Hayden [facility] Start: 04-18-2024 [facility]ulatory [facility] Start: 03-15-2018 End: 03-16-2018 [facility] Start: 01-02-2018 End: 01-03-2018 Patient encounter procedure LUIS ANTONIO Smion [facility] Facility: Start: 10-26-2017 End: 10-27-2017 Patient encounter procedure LUIS ANTONIO PATTON Facility:[facility] Start: 09-27-2017 End: 09-28-2017 Patient [facility] Start: 09-15-2017 Encounter for genera l adult medical examination without abnormal findings [facility]TON[facility] Start: 09-14-2017 End: 09-15-2017 Patient encounter procedure [facility] ANTONIO Simon [facility] Encounter for genera l adult medical examination without abnormal findings [facility] Procedures Date Procedure Procedure Detail Performing Clinician Start: 05-11-2024 Colonoscopy Alejandra Hayden Comment on above: colon polyps x2, diverticulosis, Ih Start: 05-11-2024 Esophagogastroduodenoscopy Alejandra huynh Comment on above: esophagitis, gastritis, clean based ulce rs, biopsies for celiac disease Start: 09-14-2017 PSA screening LUIS ANTONIO HERNANDEZ Comment on above: Performed By: #### BMP, LIVER, FT3, LIPI D, PSASC, TSH, DLDL ####[facility] [address] [place], [place] [address] Plan of Treatment Date Care Activity Detail Author Start: 09-07-2024 ambulatory Ambulatory Facility:[facility] [place] Immunizations Immunization Date Immunization Notes Care Provider Fa cility NEGATED: Highlighted row has not occurred!04-24-2024 influenza virus vaccine, unspecified formulation Alejandra Hayden [facility] Payers Date Payer Category Payer Unknown [id number] 1970 Unknown [id number] 2.16.84 [id number] 1970 Unknown [id number] 2.16.84 [id number] 1970 Unknown [id number] 2.16.84 [id number] 1970 Unknown [id number] 2.16.84 [id number] 1970 Unknown [id number] 2.16.84 [id number] 1970 Unknown [id number] 2.16.8 [id number] 1970 Unknown [id number] 2.16.8 [id number] 1970 Unknown [id number] 2.16.8 [id number] 1970 Unknown [id number] 2.16.8 [id number] 1970 Unknown [id number] 2.16.8 [id number] 1970 Unknown [id number] 2.16.8 [id number] 1970 Unknown [id number] 2.16.8 [id number] 1970 Unknown [id number] 2.16.8 [id number] 1959 Unknown [id number] Social History Date Type Detail Facility Start: 04-24-2024 End: 05-07-2024 Tobacco smoking status Never smoked tobacco (finding) [facility] Tobacco smoking status Smokeless tobacco user within last 30 days [facility] Sex Assigned At Male [facility] Functional Status Date Assessment Result Facility 05-11-2024 Functional Status N/A [facility] 05-07-2024 Functional Status N/A [facility] 04-24-2024 Functional Status N/A [facility] Clinical Notes 05-07-2024 to 05-11-2024 Note Date & Type Note Facility 05-11-2024 Evaluation + Plan note Extrac deb from: Title:[facility] Post-operative Note---General Author: Cody Tay MD Date:05/11/24 Plan Transfer/Discharge: Transfer/Discharge Discharge when meets criteria ( To home ). Extracted from: Title:1Preop H&P Author:González Sutton MD Date:05/11/24 Impression and Plan Impression: change in bowel habits Plan: -EGD and Colonoscopy Extracted from: Title:[facility] Pre-operative Note 2022 Author:Cody Chávez Date:05/11/24 Plan Citizen Of [place] Society of Anesthesiologists (ASA) physical status classification: Class II. Anesthetic Preoperative Plan: Anesthesia General. Future Appointments Appointment Date:05/21/2024 09:00:00 AM Scheduled Provider:González Sutton MD Location[facility] Appointment Type:[facility] Follow Up Appointment Date:09/07/2024 09:45:00 AM Scheduled Provider:Ji SIMON MD Location:[facility] Appointment Type:URO Office Visit [facility] 01-31-2025 Hospital Discharge instructions Patient Education 05/11/2024 09:44:23 Peptic Ulcer Peptic Ulcer A peptic ulcer is a sore in the lining of the stomach (gastric ulcer) or the first part of the small intestine (duodenal ulcer). The ulcer causes a gradual wearing away (erosion) of the deeper tissue. What are the causes? Normally, the lining of the stomach and the small intestine protects them from the acid that digests food. The protective lining can be damaged by: An infection caused by a type of bacteria called Helicobacter pylori or H. pylori. Regular use of NSAIDs, such as ibuprofen or aspirin. Rare tumors in the stomach, small intestine, or pancreas (Sharon Childs syndrome). What increases the risk? The following factors may make you more likely to develop this condition: Smoking. Having a family history of ulcer disease. Drinking alcohol. Having been hospitalized in an intensive care unit (ICU). What are the signs or symptoms? Symptoms of this condition include: Persistent burning pain in the area between the chest and the belly button. The pain may be worse on an empty stomach and at night. Heartburn. Nausea and vomiting. Bloating. If the ulcer results in bleeding, it can cause: Black, tarry stools. Vomiting of bright red blood. Vomiting of material that looks like coffee grounds. How is this diagnosed? This condition may be diagnosed based on: Your medical history and a physical exam. Various tests or procedures, such as: ?Upper endoscopy. The health care provider examines the esophagus, stomach, and small intestine using a small flexible tube that has a video camera at the end. ?Blood tests, stool tests, or breath tests to check for the H. pylori bacteria. ?An X-ray exam (upper gastrointestinal series) of the esophagus, stomach, and small intestine. ?A biopsy to help find certain causes of ulcers. A tissue sample is removed during upper endoscopy to be examined under a microscope. How is this treated? Treatment for this condition may include: Eliminating the cause of the ulcer, such as smoking or use of NSAIDs, and limiting alcohol and caffeine intake. Medicines to reduce the amount of acid in your digestive tract. Antibiotic medicines, if the ulcer is caused by an H. pylori infection. An upper endoscopy may be used to treat a bleeding ulcer. Surgery. This may be needed if the bleeding is severe or if the ulcer created a hole somewhere in the digestive system. Follow these instructions at home: Do not drink alcohol if your health care provider tells you not to drink. Do not use any products that contain nicotine or tobacco. These products include cigarettes, chewing tobacco, and vaping devices, such as e-cigarettes. If you need help quitting, ask your health careprovider. Take ohqb-ial-vgwxxja and prescription medicines only as told by your health care provider. ?Do not use weox-xmj-jbxzuhn medicines in place of prescription medicines unless your health care provider approves. ?Do not take aspirin, ibuprofen, or other NSAIDs unless your health care provider tells you to. Keep all follow-up visits. This is important. Contact a health care provider if: Your symptoms do not improve within 7 days of starting treatment. You have ongoing indigestion or heartburn. Get help right away if: You have sudden, sharp, or persistent pain in your abdomen. You have bloody or dark black, tarry stools. You vomit blood or material that looks like coffee grounds. You become light-headed or you feel faint. You become weak. You become sweaty or clammy. These symptoms may be an emergency. Get help right away. Call 911. Do not wait to see if the symptoms will go away. Do not drive yourself to the hospital. Summary A peptic ulcer is a sore in the lining of the stomach (gastric ulcer) or the first part of the small intestine (duodenal ulcer). The ulcer causes a gradual wearing away (erosion) of the deeper tissue. Do not use any products that contain nicotine or tobacco. These products include cigarettes, chewing tobacco, and vaping devices, such as e-cigarettes. If you need help quitting, ask your health careprovider. Take tuze-kkm-fykkxku and prescription medicines only as told by your health care provider. Do not use eofj-dog-cfsllbg medicines in place of prescription medicines unless your health care provider approves. Limit your alcohol and caffeine intake. Keep all follow-up visits. This is important. This information is not intended to replace advice given to you by your health care provider. Make sure you discuss any questions you have with your health care provider. Document Revised: 11/06/2021 Document Reviewed: 11/06/2021 [employer] Patient Education 2023 [employer]. 05/11/2024 09:43:40 Colonoscopy, Care After Surgery Salam (CUSTOM) Colonoscopy Care After Surgery Please read the instructions outlined below and refer to this sheet in the next few weeks. These discharge instructions provide you with general information on caring for yourself after you leave thespital. Your doctor may also give you specific instructions. While your treatment has been planned according to the most current medical practices available, unavoidable complications occasionally occur. If you have any problems or questions after discharge, please call your doctor. ACTIVITY You may resume your regular activity, but move at a slower pace for the next 24 hours. Take frequent rest periods for the next 24 hours. Walking will help get rid of the air and reduce the bloated feeling in your abdomen (belly). No driving for 24 hours (because of the anesthesia (medicine) used during the test). You may shower. Do not sign any important legal documents or operate any machinery for 24 hours (because of the anesthesia used during the test). NUTRITION Drink plenty of fluids. You may resume your normal diet as instructed by your doctor. Begin with a light meal and progress to your normal diet. Heavy or fried foods are harder to digestand may make you feel nauseated (sick to your stomach). Avoid alcoholic beverages for 24 hours or as instructed. MEDICATIONS You may resume your normal medications unless your doctor tells you otherwise. WHAT YOU CAN EXPECT TODAY Some feelings of bloating in the abdomen. Passage of more gas than usual. Spotting of blood in your stool or on the toilet paper. FOLLOW-UP Your doctor will discuss the results of your test with you. SEEK IMMEDIATE MEDICAL ATTENTION IF: There is more than a spotting of blood in your stool. There is abdominal distention (your abdomen is swollen). There is vomiting. You have a temperature over 101.5 F. There is abdominal pain or discomfort that is severe or gets worse throughout the day. 05/11/2024 09:43:39 Diverticulosis MAGR (CUSTOM) Diverticulosis Many people have small pouches in their colon called diverticulum. The diverticulum bulge outward through weak spots in the colon. You could have one or more of these pouches in the colon. The condition of having these pouches in the colon is called diverticulosis or diverticular disease. Diverticulosis is usually diagnosed by tests to evaluate something else. For example, you may have had a colonoscopy to screen for colon cancer when the diverticulosis was found. Most people with diverticulosis do not have any discomfort or problems. If symptoms develop, they may include mild cramps, bloating, and constipation. A complication of this condition is called diverticulitis. This is when the diverticulum become inflamed and infected. How to treat diverticulosis: Increasing the amount of fiber in the diet may reduce symptoms of diverticulosis and prevent complications such as diverticulitis (infected diverticuli). Fiber keeps stool soft and lowers pressure inside the colon so that bowel contents can move througheasily. You should eat 20 to 35 grams of fiber each day. The table below shows the amount of fiber in some foods that you can easily add to your diet. Adding fiber slowly may decrease the bloating and fullness sometimes felt with an immediate high fiber diet. The doctor may also recommend taking a fiber product such as Citrucel or Metamucil once a day. In the past people with diverticulosis were to avoid nuts, corn, and seeds. This has not been foundto be true. If you find that certain foods create cramping or bloating, avoid that food. Foods high in fiber include: Fresh fruits, fresh vegetables, legumes (beans), whole wheat bread, bran muffins or cereal, and nuts. See the table below for examples of high fiber foods. Remember, your goal is 20- 35 grams per day. Amount of fiber in different foods Food Serving Grams of fiber Fruits Apple (with skin) 1 medium apple 4.4 Banana 1 medium banana 3.1 Oranges 1 orange 3.1 Prunes 1 cup, pitted 12.4 Juices Apple, unsweetened, w/added ascorbic acid 1 cup 0.5 Grapefruit, white, canned, sweetened 1 cup 0.2 Grape, unsweetened, w/added ascorbic acid 1 cup 0.5 [place] 1 cup 0.7 Vegetables Cooked Green beans 1 cup 4.0 Carrots 1/2 cup sliced 2.3 Peas 1 cup 8.8 Potato (baked, with skin) 1 medium potato 3.8 Raw [place] (with peel) 1 cucumber 1.5 Lettuce 1 cup shredded 0.5 Tomato 1 medium tomato 1.5 Spinach 1 cup 0.7 Legumes Baked beans, canned, no salt added 1 cup 13.9 Kidney beans, canned 1 cup 13.6 Spann beans, canned 1 cup 11.6 Lentils, boiled 1 cup 15.6 Breads, pastas, flours Bran muffins 1 medium muffin 5.2 Oatmeal, cooked 1 cup 4.0 White bread 1 slice 0.6 Whole-wheat bread 1 slice 1.9 Pasta and rice, cooked Macaroni 1 cup 2.5 Rice, brown 1 cup 3.5 Rice, white 1 cup 0.6 Spaghetti (regular) 1 cup 2.5 Nuts Almonds 1/2 cup 8.7 Peanuts 1/2 cup 7.9 Chart from [facility] 2013. SEEK IMMEDIATE MEDICAL CARE IF: You develop abdominal (belly) pain. An oral temperature above _ 101 F__develops. Repeated vomiting occurs. Blood is being passed in stools (bright red or black tarry stools). You develop any bowel problems or changes which you have not had before. Extra Information: To learn how much fiber and other nutrients are in different foods, visit the [place] Department of Agriculture (USDA) National Nutrient Database at: http://www.nal.usda.gov/fnic/foodcomp/search/ Created using data from the USDA National Nutrient Database for Standard Reference. Available at http://www.nal.usda.gov/fnic/foodcomp/search/. Information adapted from: [facility] Patient Information 2009 [employer]. [employer] 2012 http://www.[employer]/contents/tixphvuilfts-kpitiow-gdnxbn-the-basics 05/11/2024 09:43:38 Colon Polyps Colon Polyps Colon polyps are tissue growths inside the colon, which is part of the large intestine. They are one of the types of polyps that can grow in the body. A polyp may be a round bump or a mushroom-shapedgrowth. You could have one polyp or more than one. Most colon polyps are noncancerous (benign). However, some colon polyps can become cancerous over time. Finding and removing the polyps early can help prevent this. What are the causes? The exact cause of colon polyps is not known. What increases the risk? The following factors may make you more likely to develop this condition: Having a family history of colorectal cancer or colon polyps. Being older than 45 years of age. Being younger than 45 years of age and having a significant family history of colorectal cancer or colon polyps or a genetic condition that puts you at higher risk of getting colon polyps. Having inflammatory bowel disease, such as ulcerative colitis or Crohn's disease. Having certain conditions passed from parent to child (hereditary conditions), such as: ?Familial adenomatous polyposis (FAP). ?Rangel syndrome. ?Turcot syndrome. ?Peutz Jeghers syndrome. ?MUTYH-associated polyposis (MAP). Being overweight. Certain lifestyle factors. These include smoking cigarettes, drinking too much alcohol, not gettingenough exercise, and eating a diet that is high in fat and red meat and low in fiber. Having had childhood cancer that was treated with radiation of the abdomen. What are the signs or symptoms? Many times, there are no symptoms. If you have symptoms, they may include: Blood coming from the rectum during a bowel movement. Blood in the stool (feces). The blood may be bright red or very dark in color. Pain in the abdomen. A change in bowel habits, such as constipation or diarrhea. How is this diagnosed? This condition is diagnosed with a colonoscopy. This is a procedure in which a lighted, flexible scope is inserted into the opening between the buttocks (anus) and then passed into the colon to examine the area. Polyps are sometimes found when a colonoscopy is done as part of routine cancer screening tests. How is this treated? This condition is treated by removing any polyps that are found. Most polyps can be removed during a colonoscopy. Those polyps will then be tested for cancer. Additional treatment may be needed depending on the results of testing. Follow these instructions at home: Eating and drinking Eat foods that are high in fiber, such as fruits, vegetables, and whole grains. Eat foods that are high in calcium and vitamin D, such as milk, cheese, yogurt, eggs, liver, fish, and broccoli. Limit foods that are high in fat, such as fried foods and desserts. Limit the amount of red meat, precooked or cured meat, or other processed meat that you eat, such as hot dogs, sausages, rodriguez, or meat loaves. Limit sugary drinks. Lifestyle Maintain a healthy weight, or lose weight if recommended by your health care provider. Exercise every day or as told by your health care provider. Do not use any products that contain nicotine or tobacco, such as cigarettes, e- cigarettes, and chewing tobacco. If you need help quitting, ask your health care provider. Do not drink alcohol if: ?Your health care provider tells you not to drink. ?You are , may be , or are planning to become . If you drink alcohol: ?Limit how much you use to: ?0 1 drink a day for women. ?0 2 drinks a day for men. ?Know how much alcohol is in your drink. In the [place] one drink equals one 12 oz bottle of beer (355 mL), one 5 oz glass of wine (148 mL), or one 1 oz glass of hard liquor (44 mL). General instructions Take hbai-mfa-hlzzetf and prescription medicines only as told by your health care provider. Keep all follow-up visits. This is important. This includes having regularly scheduled colonoscopies. Talk to your health care provider about when you need a colonoscopy. Contact a health care provider if: You have new or worsening bleeding during a bowel movement. You have new or increased blood in your stool. You have a change in bowel habits. You lose weight for no known reason. Summary Colon polyps are tissue growths inside the colon, which is part of the large intestine. They are one type of polyp that can grow in the body. Most colon polyps are noncancerous (benign), but some can become cancerous over time. This condition is diagnosed with a colonoscopy. This condition is treated by removing any polyps that are found. Most polyps can be removed during a colonoscopy. This information is not intended to replace advice given to you by your health care provider. Make sure you discuss any questions you have with your health care provider. Document Revised: 07/16/2020 Document Reviewed: 07/16/2020 [employer] Patient Education 2023 [employer] 05/11/2024 09:27:02 Gluten-Free Diet for Celiac Disease, Adult Gluten-Free Diet for Celiac Disease, Adult The gluten-free diet includes all foods that do not contain gluten. Gluten is a protein that is found in wheat, rye, barley, and some other grains. Following the gluten-free diet is the only treatment for people with celiac disease. It helps to prevent damage to the intestines and improves or eliminates the symptoms of celiac disease. Following the gluten-free diet requires some planning. It can be challenging at first, but it gets easier with time and practice. There are more gluten-free options available today than ever before. If you need help finding gluten-free foods or if you have questions, talk with your dietitian or health care provider. What are tips for following this plan? Reading food labels Read all food labels. Gluten is often added to foods. Always check the ingredient list and look forwarnings that the food may contain gluten. Foods that list any of these valles words on the label usually contain gluten: Wheat, flour, enriched flour, bromated flour, white flour, durum flour, licha flour, phosphated flour, self-rising flour, semolina, farina, barley (malt), rye, and oats. Starch, dextrin, modified food starch, or cereal. Thickening, fillers, or emulsifiers. Malt flavoring, malt extract, or malt syrup. Hydrolyzed vegetable protein. In the [place] packaged foods that are gluten-free are required to be labeled GF. These foods should be easy to identify and are safe to eat. In the [place] [employer] are also required to list common food allergens, including wheat, on their labels. Shopping When grocery shopping, start in the produce, meat, and dairy sections. These areas are more likely to contain gluten-free foods. Then move to the aisles that contain packaged foods if you need to. Meal planning All fruits, vegetables, and meats are safe to eat and do not contain gluten. Talk with your dietitian or health care provider before taking a gluten-free multivitamin or mineral supplement. Be aware of gluten-free foods having contact with foods that contain gluten (cross-contamination). This can happen at home and with any processed foods. ?Talk with your health care provider or dietitian about how to reduce the risk of cross-contamination in your home. ?If you have questions about how a food is processed, ask the human resources benefits assistant. What foods can I eat? Fruits All plain fresh, frozen, canned, and dried fruits, and 100% fruit juices. Vegetables All plain fresh, frozen, and canned vegetables, and 100% vegetable juices. Grains Amaranth, dick flours, 100% buckwheat flour, corn, millet, nut flours or nut meals, GF oats, quinoa, rice, sorghum, teff, rice wafers, pure cornmeal tortillas, popcorn, and hot cereals made from cornmeal or GF grains. [place], rice, and wild rice. Some rice noodles or dick noodles. Arrowroot starch, corn bran, corn flour, corn germ, cornmeal, corn starch, potato flour, potato starch flour, and rice bran. Plain, brown, and sweet rice flours. Rice scottish, soy flour, and tapioca starch. Meats and other protein foods All fresh beef, pork, poultry, fish, seafood, and eggs. Fish canned in water, oil, brine, or vegetable broth. Plain nuts and seeds, peanut butter. Some precooked or cured meat, such as sausages or meat loaves. Some frankfurters. Dried beans, dried peas, and lentils. Dairy Fresh plain, dry, evaporated, or condensed milk. Cream, butter, sour cream, whipping cream, and most yogurts. Unprocessed cheese, most processed cheeses, some cottage cheeses, and some cream cheeses. Beverages Coffee, tea, and most herbal teas. Carbonated beverages and some root beers. Wine, sake, and pure distilled spirits, such as gin, vodka, and whiskey. Most hard ciders. Fats and oils Butter, margarine, vegetable oil, hydrogenated butter, olive oil, shortening, lard, cream, and somemayonnaise. Some commercial salad dressings. Olives. Sweets and desserts Sugar, honey, some syrups, molasses, jelly, and jam. Plain hard candy, marshmallows, and gumdrops. Pure cocoa powder. Plain chocolate. Custard and some pudding mixes. Gelatin desserts, sorbets, frozen ice pops, and sherbet. Cake, cookies, and other desserts prepared with allowed flours. Some commercial ice creams. Cornstarch, tapioca, and rice puddings. Seasoning and other foods Some canned or frozen soups. Monosodium glutamate (MSG). Cider, rice, and wine vinegar. Baking sodaand baking powder. Cream of tartar. Baking and nutritional yeast. Certain soy sauces made without wheat. Ask your dietitian about specific brands that are allowed. Nuts, coconut, and chocolate. Salt, pepper, herbs, spices, flavoring extracts, imitation or artificial flavorings, natural flavorings, and food colorings. Some medicines and supplements. Rice syrups. The items listed above may not be a complete list of foods and beverages you can eat and drink. Contact a dietitian for more information. What foods should I avoid? Fruits Thickened or prepared fruits and some pie fillings. Some fruit snacks and fruit roll-ups. Vegetables Most creamed vegetables and most vegetables canned in sauces. Some commercially prepared vegetablesand salads. Vegetables in a soy sauce marinade or dressing. Grains Barley, bran, bulgur, couscous, cracked wheat, [place], farro, licha, malt, matzo, semolina, wheat germ, and all wheat and rye cereals, including spelt and kamut. Cereals containing malt as a flavoring, such as rice cereal. Noodles, spaghetti, macaroni, most packaged rice mixes, and all mixes containing wheat, rye, barley, or triticale. Meats and other protein foods Any meat or meat alternative containing wheat, rye, barley, or gluten stabilizers. These are often marinated or packaged meats, and precooked or cured meat, such as sausages or meat loaves. Bread-containing products, such as Malian steak, croquettes, meatballs, and meatloaf. Most tuna canned in vegetable broth. [place] with hydrolyzed vegetable protein (HVP) injected as part of the basting. Seitan. Imitation fish. Eggs in sauces made from ingredients to avoid. Dairy Commercial chocolate milk drinks and malted milk. Some non-dairy creamers. Any cheese product containing ingredients to avoid. Beverages Certain cereal beverages. Beer, maria luisa, malted milk, and some root beers. Some hard ciders. Some instant flavored coffees. Some herbal teas made with barley or with barley malt added. Fats and oils Some commercial salad dressings. Sour cream containing modified food starch. Sweets and desserts Some toffees. Chocolate-coated nuts (may be rolled in wheat flour) and some commercial candies and candy bars. Most cakes, cookies, donuts, pastries, and other baked goods. Some commercial ice cream. Ice cream cones. Commercially prepared mixes for cakes, cookies, and other desserts. Bread pudding and other puddings thickened with flour. Products containing brown rice syrup made with barley malt enzyme. Desserts and sweets made with malt flavoring. Seasoning and other foods Some menezes powders, some dry seasoning mixes, some gravy extracts, some meat sauces, some ketchups,some prepared mustards, and horseradish. Certain soy sauces. Malt vinegar. Bouillon and bouillon cubes that contain HVP. Some chip dips. Some chewing gum. Yeast extract. Peter's yeast. Caramel color. Some medicines and supplements. The items listed above may not be a complete list of foods and beverages you should avoid. Contact a dietitian for more information. Summary Gluten is a protein that is found in wheat, rye, barley, and some other grains. The gluten-free diet includes all foods that do not contain gluten. If you need help finding gluten-free foods or if you have questions, talk with your dietitian or your health care provider. Read all food labels. Gluten is often added to foods. Always check the ingredient list and look forwarnings that the food may contain gluten. This information is not intended to replace advice given to you by your health care provider. Make sure you discuss any questions you have with your health care provider. Document Revised: 02/16/2022 Document Reviewed: 02/16/2022 [employer] Patient Education 2023 [employer]. 05/11/2024 09:26:16 Upper Endoscopy, Adult, Care After Upper Endoscopy, Adult, Care After After the procedure, it is common to have a sore throat. It is also common to have: Mild stomach pain or discomfort. Bloating. Nausea. Follow these instructions at home: The instructions below may help you care for yourself at home. Your health care provider may give you more instructions. If you have questions, ask your health care provider. If you were given a sedative during the procedure, it can affect you for several hours. Do not drive or operate machinery until your health care provider says that it is safe. If you will be going home right after the procedure, plan to have a responsible adult: ?Take you home from the hospital or clinic. You will not be allowed to drive. ?Care for you for the time you are told. Follow instructions from your health care provider about what you may eat and drink. Return to your normal activities as told by your health care provider. Ask your health care provider what activities are safe for you. Take qkog-rwe-bdzvpes and prescription medicines only as told by your health care provider. Contact a health care provider if you: Have a sore throat that lasts longer than one day. Have trouble swallowing. Have a fever. Get help right away if you: Vomit blood or your vomit looks like coffee grounds. Have bloody, black, or tarry stools. Have a very bad sore throat or you cannot swallow. Have difficulty breathing or very bad pain in your chest or abdomen. These symptoms may be an emergency. Get help right away. Call 911. Do not wait to see if the symptoms will go away. Do not drive yourself to the hospital. Summary After the procedure, it is common to have a sore throat, mild stomach discomfort, bloating, and nausea. If you were given a sedative during the procedure, it can affect you for several hours. Do not drive until your health care provider says that it is safe. Follow instructions from your health care provider about what you may eat and drink. Return to your normal activities as told by your health care provider. This information is not intended to replace advice given to you by your health care provider. Make sure you discuss any questions you have with your health care provider. Document Revised: 07/07/2022 Document Reviewed: 07/07/2022 [employer] Patient Education 2023 [employer]. 05/11/2024 09:26:10 Esophagitis Esophagitis Esophagitis is inflammation of the esophagus. The esophagus is the tube that carries food from the mouth to the stomach. Esophagitis can cause soreness or pain in the esophagus. This condition can make it difficult and painful to swallow. What are the causes? Most causes of esophagitis are not serious. Common causes of this condition include: Gastroesophageal reflux disease (GERD). This is when stomach contents move back up into the esophagus (reflux). Repeated vomiting. An allergic reaction, especially caused by food allergies (eosinophilic esophagitis). Injury to the esophagus by swallowing large pills with or without water, or swallowing certain types of medicines. Swallowing harmful chemicals, such as household cleaning products. Drinking a lot of alcohol. An infection of the esophagus. This most often occurs in people who have a weakened immune system. Radiation or chemotherapy treatment for cancer. Certain diseases such as sarcoidosis, Crohn's disease, and scleroderma. What are the signs or symptoms? Symptoms of this condition include: Difficult or painful swallowing. Pain with swallowing acidic liquids, such as citrus juices. You may also have pain when you burp. Chest pain and difficulty breathing. Nausea and vomiting. Pain in the abdomen. Weight loss. Ulcers in the mouth and white patches in the mouth (candidiasis). Fever. Coughing up blood or vomiting blood. Stool that is black, tarry, or bright red. How is this diagnosed? This condition may be diagnosed based on your medical history and a physical exam. You may also have other tests, including: A test to examine your esophagus and stomach with a small flexible tube with a camera (endoscopy). A test that measures the acidity level in your esophagus. A test that measures how much pressure is on your esophagus. A barium swallow or modified barium swallow to show the shape, size, and functioning of your esophagus. Allergy tests. How is this treated? Treatment for this condition depends on the cause of your esophagitis. In some cases, steroids or other medicines may be given to help relieve your symptoms or to treat the underlying cause of your condition. You may have to make some lifestyle changes, such as: Avoiding alcohol. Quitting any products that contain nicotine or tobacco. These products include cigarettes, chewing tobacco, and vaping devices, such as e-cigarettes. If you need help quitting, ask your health care provider. Changing your diet. Exercising. Changing your sleep habits and your sleep environment. Follow these instructions at home: Medicines Take dgat-wnh-ivfwbfv and prescription medicines only as told by your health care provider. Do not take aspirin, ibuprofen, or other NSAIDs unless your health care provider told you to do so. If you have trouble taking pills: ?Use a pill splitter to decrease the size of the pill. This will decrease the chance of the pill getting stuck or injuring your esophagus. ?Drink water after you take a pill. Eating and drinking Avoid foods and drinks that seem to make your symptoms worse. Follow a diet as recommended by your health care provider. This may involve avoiding foods and drinks such as: ?Coffee and tea, with or without caffeine. ?Drinks that contain alcohol. ?Energy drinks and sports drinks. ?Carbonated drinks or sodas. ?Chocolate and cocoa. ?Peppermint and mint flavorings. ?Garlic and onions. ?Horseradish. ?Spicy and acidic foods, including peppers, chili powder, menezes powder, vinegar, hot sauces, and barbecue sauce. ?[place] fruit juices and citrus fruits, such as oranges, ronald, and limes. ?Tomato-based foods, such as red sauce, chili, salsa, and pizza with red sauce. ?Fried and fatty foods, such as donuts, guyanese fries, potato chips, and high-fat dressings. ?High-fat meats, such as hot dogs and fatty cuts of red and white meats, such as rib eye steak, sausage, ham, and rodriguez. ?High-fat dairy items, such as whole milk, butter, and cream cheese. Lifestyle Eat small, frequent meals instead of large meals. Avoid drinking large amounts of liquid with your meals. Avoid eating meals during the 2 3 hours before bedtime. Avoid lying down right after you eat. Do not exercise right after you eat. Do not use any products that contain nicotine or tobacco. These products include cigarettes, chewing tobacco, and vaping devices, such as e-cigarettes. If you need help quitting, ask your health careprovider. General instructions Pay attention to any changes in your symptoms. Let your health care provider know about them. Wear loose-fitting clothing. Do not wear anything tight around your waist that causes pressure on your abdomen. Raise (elevate) the head of your bed about 6 inches (15 cm). You may need to use a wedge to do this. Try relaxation strategies such as yoga, deep breathing, or meditation to manage stress. If you needhelp reducing stress, ask your health care provider. If you are overweight, reduce your weight to an amount that is healthy for you. Ask your health care provider for guidance about a safe weight loss goal. Keep all follow-up visits. This is important. Contact a health care provider if: You have new symptoms. You have unexplained weight loss. You have difficulty swallowing, or it hurts to swallow. You have wheezing or a cough that does not go away. Your symptoms do not improve with treatment. You have frequent heartburn for more than two weeks. Get help right away if: You have sudden severe pain in your arms, neck, jaw, teeth, or back. You suddenly feel sweaty, dizzy, or light-headed. You have chest pain or shortness of breath. You vomit and the vomit is green, yellow, or black, or it looks like blood or coffee grounds. Your stool is red, bloody, or black. You have a fever. You cannot swallow, drink, or eat. These symptoms may represent a serious problem that is an emergency. Do not wait to see if the symptoms will go away. Get medical help right away. Call your local emergency services (911 in the [place] Do not drive yourself to the hospital. Summary Esophagitis is inflammation of the esophagus. Most causes of esophagitis are not serious. Follow your health care provider's instructions about eating and drinking. Contact a health care provider if you have new symptoms, have weight loss, or coughing that does not stop. Get help right away if you have severe pain in the arms, neck, jaw, teeth, or back, or if you have chest pain, shortness of breath, or fever. This information is not intended to replace advice given to you by your health care provider. Make sure you discuss any questions you have with your health care provider. Document Revised: 10/06/2020 Document Reviewed: 10/06/2020 [employer] Patient Education 2023 [employer]. 05/11/2024 09:25:57 Celiac Disease Celiac Disease Celiac disease is a condition in which the body's disease-fighting system (immune system) attacks the small intestine and causes damage. This is known as an autoimmune disease. When a person with celiac disease eats a food that has gluten in it, the immune system attacks the cells that line the small intestine. Over time, this reaction damages the small intestine and makes the small intestine unable to absorb nutrients from food. Gluten is found in wheat, rye, and barley, and in foods like pasta, pizza, and cereal. Celiac disease is also known as celiac sprue, nontropical sprue, and gluten-sensitive enteropathy. What are the causes? This condition is caused by a gene that is passed from parent to child (inherited). What increases the risk? You are more likely to develop this condition if you: Have a family member with the disease. Have an autoimmune condition, such as Type 1 diabetes or a thyroid disorder. Are female. What are the signs or symptoms? Symptoms of this condition include: Recurring bloating, pain in the abdomen, and gas. Long-term (chronic) diarrhea and pale, bad-smelling, greasy, or oily stool. Weight loss. Missed menstrual periods. Weak bones (osteoporosis). Fatigue and weakness. Tingling or other signs of nerve damage. Depression. Poor appetite. Rash. Anemia. In some cases, there are no symptoms of this condition. How is this diagnosed? This condition is diagnosed with a physical exam and tests. Tests may include: Blood tests to check for nutritional deficiencies. Blood tests to look for evidence that the body is attacking cells in the small intestine. A test in which a sample of tissue is taken from the small intestine and looked at under a microscope (biopsy). X-rays of the intestine. Stool tests. Tests to check for nutrient absorption from the intestine. How is this treated? There is no cure for this condition. It is managed by following a strict gluten- free diet. Treatment may also involve avoiding dairy foods, such as milk and cheese, because they are difficult to digest. Most people who follow a strict gluten-free diet feel better and stop having symptoms. The intestine usually heals within 3 months to 2 years. In a small percentage of people, this condition does not improve on a gluten- free diet. If your condition does not improve, more tests may be done. You may also need to work with a celiac disease specialist to find the best treatment for you. Follow these instructions at home: Follow instructions from your health care provider about what you may eat and drink. Monitor your body's response to the gluten-free diet. Write down any changes in your symptoms and in how you feel. If you eat while you are away from home, prepare your food ahead of time. Or, make sure that the place where you are going has gluten-free options. Suggest to family members that they get screened for early signs of celiac disease. Keep all follow-up visits. This is important. Contact a health care provider if: You continue to have symptoms, even when you are eating a gluten-free diet. You have trouble following a gluten-free diet. You develop an itchy rash with groups of tiny blisters. You develop severe weakness. You develop balance problems. You develop new symptoms. Summary Celiac disease is a condition in which the body's disease-fighting system (immune system) attacks the small intestine and causes damage. There is no cure for this condition. It is managed by following a strict gluten- free diet. For somepeople, following a low-dairy or dairy-free diet also helps. Follow instructions from your health care provider about what you may eat and drink. Write down anychanges in your symptoms and in how you feel. Contact a health care provider if you continue to have symptoms, even when you are eating a gluten-free diet, or if you have new symptoms. Keep all follow-up visits. This is important. This information is not intended to replace advice given to you by your health care provider. Make sure you discuss any questions you have with your health care provider. Document Revised: 02/16/2022 Document Reviewed: 02/16/2022 [employer] Patient Education 2023 [employer]. 05/11/2024 09:25:22 Gastritis, Adult Gastritis, Adult Gastritis is inflammation of the stomach. There are two kinds of gastritis: Acute gastritis. This kind develops suddenly. Chronic gastritis. This kind is much more common. It develops slowly and lasts for a long time. Gastritis happens when the lining of the stomach becomes weak or gets damaged. Without treatment, gastritis can lead to stomach bleeding and ulcers. What are the causes? This condition may be caused by: An infection. Drinking too much alcohol. Certain medicines. These include steroids, antibiotics, and some xuae-kxk-gjegpjc medicines, such as aspirin or ibuprofen. Having too much acid in the stomach. Having a disease of the stomach. Other causes may include: An allergic reaction. Some cancer treatments (radiation). Smoking cigarettes or the use of products that contain nicotine or tobacco. In some cases, the cause of this condition is not known. What increases the risk? Having a disease of the intestines. Having a disease in which the body's immune system attacks the body (autoimmune disease), such as Crohn's disease. Using aspirin or ibuprofen and other NSAIDs to treat other conditions, such as heart disease or chronic pain. Stress. What are the signs or symptoms? Symptoms of this condition include: Pain or a burning sensation in the upper abdomen. Nausea. Vomiting. An uncomfortable feeling of fullness after eating. Weight loss. Bad breath. Blood in your vomit or stool (feces). In some cases, there are no symptoms. How is this diagnosed? This condition may be diagnosed based on your medical history, a physical exam, and tests. Tests may include: Your medical history and a description of your symptoms. A physical exam. Tests. These can include: ?Blood tests. ?Stool tests. ?A test in which a thin, flexible instrument with a light and a camera is passed down the esophagusand into the stomach (upper endoscopy). ?A test in which a tissue sample is removed to look at it under a microscope (biopsy). How is this treated? This condition may be treated with medicines. The medicines that are used vary depending on the cause of the gastritis. If the condition is caused by a bacterial infection, you may be given antibiotic medicines. If the condition is caused by too much acid in the stomach, you may be given medicines called H2 blockers, proton pump inhibitors, or antacids. Treatment may also involve stopping the use of certain medicines such as aspirin or ibuprofen and other NSAIDs. Follow these instructions at home: Medicines Take rgoa-khu-qaydfav and prescription medicines only as told by your health care provider. If you were prescribed an antibiotic medicine, take it as told by your health care provider. Do notstop taking the antibiotic even if you start to feel better. Alcohol use Do not drink alcohol if: ?Your health care provider tells you not to drink. ?You are , may be , or are planning to become . If you drink alcohol: ?Limit your use to: ?0 1 drink a day for women. ?0 2 drinks a day for men. ?Know how much alcohol is in your drink. In the [place] one drink equals one 12 oz bottle of beer (355 mL), one 5 oz glass of wine (148 mL), or one 1 oz glass of hard liquor (44 mL). General instructions Eat small, frequent meals instead of large meals. Avoid foods and drinks that make your symptoms worse. Talk with your health care provider about ways to manage stress, such as getting regular exercise or practicing deep breathing, meditation, or yoga. Do not use any products that contain nicotine or tobacco. These products include cigarettes, chewing tobacco, and vaping devices, such as e-cigarettes. If you need help quitting, ask your health careprovider. Drink enough fluid to keep your urine pale yellow. Keep all follow-up visits. This is important. Contact a health care provider if: Your symptoms get worse. Your abdominal pain gets worse. Your symptoms return after treatment. You have a fever. Get help right away if: You vomit blood or a substance that looks like coffee grounds. You have black or dark red stools. You are unable to keep fluids down. These symptoms may represent a serious problem that is an emergency. Do not wait to see if the symptoms will go away. Get medical help right away. Call your local emergency services (911 in the [place] Do not drive yourself to the hospital. Summary Gastritis is inflammation of the lining of the stomach that can occur suddenly (acute) or develop slowly over time (chronic). This condition is diagnosed with a medical history, a physical exam, or tests. This condition may be treated with medicines to treat infection or medicines to reduce the amount of acid in your stomach. Follow your health care provider's instructions about taking medicines, making changes to your diet, and knowing when to call for help. This information is not intended to replace advice given to you by your health care provider. Make sure you discuss any questions you have with your health care provider. Document Revised: 08/01/2021 Document Reviewed: 08/01/2021 [employer] Patient Education 2023 [employer]. [facility] 01-31-2025 NotePatient Education - Text Colonoscopy Care After Surgery Please read the instructions outlined below and refer to this sheet in the next few weeks. These discharge instructions provide you with general information on caring for [facility] Your doctor may also give you specific instructions. While your treatment has been planned according to the most current medical practices available, unavoidable complications occasionally occur. If you have any problems or questions after discharge, please call your doctor. ACTIVITY You may resume your regular activity, but move at a slower pace for the next 24 hours. Take frequent rest periods for the next 24 hours. Walking will help get rid of the air and reduce the bloated feeling in your abdomen (belly). No driving for 24 hours (because of the anesthesia (medicine) used during the test). You may shower. Do not sign any important legal documents or operate any machinery for 24 hours (because of the anesthesia used during the test). NUTRITION Drink plenty of fluids. You may resume your normal diet as instructed by your doctor. Begin with a light meal and progress to your normal diet. Heavy or fried foods are harder to digestand may make you feel nauseated (sick to your stomach). Avoid alcoholic beverages for 24 hours or as instructed. MEDICATIONS You may resume your normal medications unless your doctor tells you otherwise. WHAT YOU CAN EXPECT TODAY Some feelings of bloating in the abdomen. Passage of more gas than usual. Spotting of blood in your stool or on the toilet paper. FOLLOW-UP Your doctor will discuss the results of your test with you. SEEK IMMEDIATE MEDICAL ATTENTION IF: There is more than a spotting of blood in your stool. There is abdominal distention (your abdomen is swollen). There is vomiting. You have a temperature over 101.5 F. There is abdominal pain or discomfort that is severe or gets worse throughout the day. Diverticulosis Many people have small pouches in their colon called diverticulum. The diverticulum bulge outward through weak spots in the colon. You could have one or more of these pouches in the colon. The condition of having these pouches in the colon is called diverticulosis or diverticular disease. Diverticulosis is usually diagnosed by tests to evaluate something else. For example, you may have had a colonoscopy to screen for colon cancer when the diverticulosis was found. Most people with diverticulosis do not have any discomfort or problems. If symptoms develop, they may include mild cramps, bloating, and constipation. A complication of this condition is called diverticulitis. This is when the diverticulum become inflamed and infected. How to treat diverticulosis: Increasing the amount of fiber in the diet may reduce symptoms of diverticulosis and prevent complications such as diverticulitis (infected diverticuli). Fiber keeps stool soft and lowers pressure inside the colon so that bowel contents can move througheasily. You should eat 20 to 35 grams of fiber each day. The table below shows the amount of fiber in some foods that you can easily add to your diet. Adding fiber slowly may decrease the bloating and fullness sometimes felt with an immediate high fiber diet. The doctor may also recommend taking a fiber product such as Citrucel or Metamucil once a day. In the past people with diverticulosis were to avoid nuts, corn, and seeds. This has not been foundto be true. If you find that certain foods create cramping or bloating, avoid that food. Foods high in fiber include: Fresh fruits, fresh vegetables, legumes (beans), whole wheat bread, bran muffins or cereal, and nuts. See the table below for examples of high fiber foods. Remember, your goal is 20- 35 grams per day. Amount of fiber in different foods Food Serving Grams of fiber Fruits Apple (with skin) 1 medium apple 4.4 Banana 1 medium banana 3.1 Oranges 1 orange 3.1 Prunes 1 cup, pitted 12.4 Juices Apple, unsweetened, w/added ascorbic acid 1 cup 0.5 Grapefruit, white, canned, sweetened 1 cup 0.2 Grape, unsweetened, w/added ascorbic acid 1 cup 0.5 [place] 1 cup 0.7 Vegetables Cooked Green beans 1 cup 4.0 Carrots 1/2 cup sliced 2.3 Peas 1 cup 8.8 Potato (baked, with skin) 1 medium potato 3.8 Raw [place] (with peel) 1 cucumber 1.5 Lettuce 1 cup shredded 0.5 Tomato 1 medium tomato 1.5 Spinach 1 cup 0.7 Legumes Baked beans, canned, no salt added 1 cup 13.9 Kidney beans, canned 1 cup 13.6 Spann beans, canned 1 cup 11.6 Lentils, boiled 1 cup 15.6 Breads, pastas, flours Bran muffins 1 medium muffin 5.2 Oatmeal, cooked 1 cup 4.0 White bread 1 slice 0.6 Whole-wheat bread 1 slice 1.9 Pasta and rice, cooked Macaroni 1 cup 2.5 Rice, brown 1 cup 3.5 Rice, white 1 cup 0.6 Spaghetti (regular) 1 cup 2.5 Nuts Almonds 1/2 cup 8.7 Peanuts 1/2 cup 7.9 [facility] (more content not included)...[facility] 05-11-2024 NoteProgress Note-Physician Patient: TATE ENCARNACION Age: 53 years Sex: Male : 1970 Associated Diagnoses: None Author: Cody Tay MD Postoperative Information Postoperative disposition: Postoperative disposition: To PACU. Optimetrix number: Optimetrix number [id number]. Anesthetic utilized: General. Health Status Allergies: Allergic Reactions (Selected) No Known Allergies No Known Medication Allergies Physical Examination Vital Signs 05/11/2024 9:15 EST Heart Rate Monitored 90 bpm Respiratory Rate Monitored 13 br/min Systolic Blood Pressure 126 mmHg Diastolic Blood Pressure 79 mmHg SpO2 98 % 05/11/2024 9:10 EST Temperature Temporal Artery 36.9 DegC Heart Rate Monitored 51 bpm LOW Respiratory Rate Monitored 23 br/min Systolic Blood Pressure 127 mmHg Diastolic Blood Pressure 87 mmHg SpO2 97 % Pain Assessment: Controlled. General: Awake, Appropriate. Respiratory: Adequate air exchange. Cardiovascular: Stable. Neurological Assessment Anesthetic outcome No anesthetic complications noted. Adequate pain relief. Review / Management Condition: Stable. Plan Transfer/Discharge: Transfer/Discharge Discharge when meets criteria ( To home ).[facility]:Result Comment: Electronically Signed By: Cody Tay MD\.br\Date and Time Signed: 05/11/24 09:38 EST 05-11-2024 NoteEndoscopic Procedure Report - Other Patient: TATE ENCARNACION Age: 53 years Sex: Male : 1970 Associated Diagnoses: None Author: González Sutton MD Pre-Procedure Procedure Date 05/11/2024 08:41:00 . Procedure Type: Esophagogastroduodenoscopy with biopsy. Procedure provider Performed by González Sutton MD. Current history and physical Documented on chart. Informed Consent After discussing the rationale, risks and benefits, and alternatives to this procedure, the patient provided signed consent for the procedure. Pre-procedure diagnosis: Change in bowel habits. Medications Anticoagulant/antiplatelet None. ASA Classification: Class II. . Monitoring: See anesthesia record. . Procedure The procedure was performed in the hospital. See anesthesia record for sedation given during procedure. The patient was positioned starting in the left lateral decubitus position and with safety measures. Endoscope type used was an adult- size, introduced orally, advanced to the 3rd portion of the duodenum. No difficulty was encountered during the procedure. Views were excellent. The patient tolerated the procedure well. Findings 1. Esophagus was identified grade B esophagitis noted. Yellowish flakes in the esophagus could represent Sheree esophagitis, biopsied 2. Moderate gastritis in the antrum with couple small ulcers, no biopsies were taken to rule out H.pylori 3. Normal examined duodenum. Random biopsies were taken rule out celiac disease Images Procedure images: [id number]_hd_video_2024__[id number].jpg Rec1_hd_video_2024__[id number].jpg Rec1_hd_video__[id number].jpg Rec1_hd_video__[id number].jpg Rec1_hd_video__[id number].jpg Rec1_hd_video__[id number].jpg Rec1_hd_video__[id number].jpg Rec1_hd_video__[id number].jpg Rec1_hd_video__[id number].jpg . Post-Procedure Complications: none. Estimated blood loss: minimal. Specimens: sent to pathology. Devices/ implants: none left in place. Impression and Plan 1. Esophagus was identified grade B esophagitis noted. Yellowish flakes in the esophagus could represent Sheree esophagitis, biopsied 2. Moderate gastritis in the antrum with couple small ulcers, no biopsies were taken to rule out H.pylori 3. Normal examined duodenum. Random biopsies were taken rule out celiac disease Recommendations: -Resume previous diet -Resume home medications -Await pathology results, follow in GI clinic in 1-2 after discharge Start omeprazole 40 mg daily twice a day before meals Repeat EGD in 3 months to ensure esophagitis healing[facility] Comment on above:Result Comment: Electronically Signed By: González Sutton MD\.br\Date and Time Signed: 05/11/24 09:09 ESTOther Comment: Missing Attachment - attachment storage system not supported [id number] Can be viewed in source system Missing Attachment - attachment storage system not supported [id number] Can be viewed in source systemMissing Attachment - attachment storage system not supported [id number] Can be viewed in source systemMissing Attachment - attachment storage system not supported [id number] Can be viewed in source systemMissing Attachment - attachment storage system not supported [id number] Can be viewed in source systemMissing Attachment - attachment storage system not supported [id number] Can be viewed in source systemMissing Attachment - attachment storage system not supported [id number] Can be viewed in source systemMissing Attachment - attachment storage system not supported [id number] Can be viewed in source system Missing Attachment - attachment storage system not supported [id number] Can be viewed in source [phone] NoteEndoscopic Procedure Report - Other Patient: TATE ENCARNACION Age: 53 years Sex: Male : 1970 Associated Diagnoses: None Author: González Sutton MD Pre-Procedure Procedure Date 05/11/2024 09:06:00 . Procedure Type: Colonoscopy with removal of tumor(s), polyp(s), or other lesion(s) by snare technique, biopsy. Procedure provider Performed by González Sutton MD. Current history and physical Reviewed. No active procedure history items have been selected or recorded.. Past Medical History No active or resolved past medical history items have been selected or recorded.. Family History Diabetes mellitus Father Hypertension Father . Procedure History No active procedure history items have been selected or recorded.. Colorectal neoplasm risk assessment Average risk. Informed Consent After discussing the rationale, risks and benefits, and alternatives to this procedure, the patient provided signed consent for the procedure. Pre-procedure diagnosis: Diarrhea, clinically significant. Medications (Selected) Inpatient Medications Ordered Sodium Chloride 0.9% IV Claribel 1000 mL 1,000 mL: 1,000 mL, IV, 20 mL/hr, Routine, Start date 05/11/24 6:38:00 EST, 50 hour(s), Total volume (mL): 1,000, 108.1 kg, 2.23, m2 Prescriptions Prescribed AndroGel Pump 20.25 mg/1.25 g (1.62%) transdermal gel: = 2 pump, Topical, qAM, # 75 gram, Refills(s) 3, Pharmacy: [facility], 165, cm, 05/07/24 9:19:00 EST, Height/Length Dosing, 108.1, kg, 05/07/24 9:19:00 EST, Weight Dosing Questran 4 g/9 g oral powder: = 1 packet(s), Oral, BID, # 60 EA, Refills(s) 0, Pharmacy: [facility], 170, cm, 04/24/24 8:57:00 EST, Height/Length Dosing, 108.6, kg, 04/24/24 8:57:00 EST, Weight Dosing Zenpep 60,000 units-189,600 units-252,600 units oral delayed release capsule: See Instructions, 300cap(s), Refill(s) 3, Take 2 caps with each meal and 1 with each snack, [facility], 170, cm, 04/24/24 8:57:00 EST, Height/Length Dosing, 108.6, kg, 04/24/24 8:57:00 EST, Weight Dosing tadalafil 20 mg Tab: 20 mg = 1 tab(s), Oral, As Directed, PRN for erectile dysfunction, Pt to take one tab 1 hour prior to sexual activity. Do not exceed 20mg in 24 hours., # 30 tab(s), Refills(s) 0,Pharmacy: [facility], 165, cm, 05/07/24 9:19:00 EST, Hei... Documented Medications Documented Prozac: 20 mg, Oral, Daily, Refills(s) 0, Depression Vascepa 1 g oral capsule: gm cap(s), Oral, BID, Refills(s) 0, High cholesterol Vitamin D3 50 mcg (2000 intl units) oral tablet, chewable: mcg tab(s), Oral, Daily, Refills(s) 0, Prophylaxis levothyroxine: Daily, Refills(s) 0, Thyroid reviewed. ASA Classification: Class II. . Monitoring: See anesthesia record. . Procedure The procedure was performed in the hospital. See anesthesia record for sedation given during procedure. The patient was positioned starting in the left lateral decubitus position. Endoscope type usedwas a pediatric-size. The endoscope was lubricated then introduced through the anus. The scope was advanced to the terminal ileum. No difficulties encountered during the procedure. The bowel preparation quality was adequate (see polyps greater than or equal to 6 millimeters). The patient tolerated the procedure well. Time to cecum:5 min Time of withdrawal:15 min Findings 1. Small internal hemorrhoids seen on retroflexion 2. Moderate sigmoid diverticulosis 3. 5 mm sessile polyp in the transverse colon, resected with cold snare completely retrieved 4. 2 mm sessile polyp in the ascending colon, resected with cold biopsy forceps completely and retrieved 5. Otherwise normal colonic mucosa, random biopsies were taken to rule out microscopic colitis 6. Normal examined terminal ileum Images Procedure images: Rec_hd_video___[id number].jpg Rec_hd_video___[id number].jpg Rec_hd_video____15_[id number].jpg Rec1_hd_video____07_[id number].jpg Rec1_hd_video___04_[id number].jpg Rec_hd_video____57_[id number].jpg Rec_hd_video___44_[id number].jpg Rec_hd_video___17_[id number].jpg . Post-Procedure Complications: none. Estimated blood loss: Minimal. Specimens: sent to pathology. Devices/ implants: none left in place. Impression and Plan 1. Small internal hemorrhoids seen on retroflexion 2. Moderate sigmoid diverticulosis 3. 5 mm sessile polyp in the transverse colon, resected with cold snare completely retrieved 4. 2 mm sessile polyp in the ascending colon, resected with cold biopsy forceps completely and retrieved 5. Otherwise normal colo (more content not included)...[facility]:Result Comment: Electronically Signed By: Lesley ROMERO, González Cadena\.br\Date and Time Signed: 05/11/24 09:07 ESTOther Comment: Missing Attachment - attachment storage system not supported [id number] Can be viewed in source systemMissing Attachment - attachment storage system not supported [id number] Can be viewed insource systemMissing Attachment - attachment storage system not supported [id number] Can be viewed in source systemMissing Attachment - attachment storage system not supported [id number] Can be viewed in so urce systemMissing Attachment - attachment storage system not supported [id number] Can be viewed in source systemMissing Attachment - attachment storage system not supported [id number] Can be viewed in source systemMissing Attachment - attachment storage system not supported [id number] Can be viewed in source systemMissing Attachment - attachment storage system not supported [id number] Can be viewed in source [id number] NoteHistory and Physical Patient: TATE ENCARNACION Age: 53 years Sex: Male : 1970 Associated Diagnoses: None Author: González Sutton MD Preoperative Information Indication for procedure and diagnosis: change in bowel habits Chief Complaint as above Review of Systems All systems reviewed, negative except as mentioned above Health Status Current medications: (Selected) Inpatient Medications Ordered Sodium Chloride 0.9% IV Claribel 1000 mL 1,000 mL: 1,000 mL, IV, 20 mL/hr, Routine, Start date 05/11/24 6:38:00 EST, 50 hour(s), Total volume (mL): 1,000, 108.1 kg, 2.23, m2 Prescriptions Prescribed AndroGel Pump 20.25 mg/1.25 g (1.62%) transdermal gel: = 2 pump, Topical, qAM, # 75 gram, Refills(s) 3, Pharmacy: [facility], 165, cm, 05/07/24 9:19:00 EST, Height/Length Dosing, 108.1, kg, 05/07/24 9:19:00 EST, Weight Dosing Questran 4 g/9 g oral powder: = 1 packet(s), Oral, BID, # 60 EA, Refills(s) 0, Pharmacy: [facility], 170, cm, 04/24/24 8:57:00 EST, Height/Length Dosing, 108.6, kg, 04/24/24 8:57:00 EST, Weight Dosing Zenpep 60,000 units-189,600 units-252,600 units oral delayed release capsule: See Instructions, 300cap(s), Refill(s) 3, Take 2 caps with each meal and 1 with each snack, [facility], 170, cm, 04/24/24 8:57:00 EST, Height/Length Dosing, 108.6, kg, 04/24/24 8:57:00 EST, Weight Dosing tadalafil 20 mg Tab: 20 mg = 1 tab(s), Oral, As Directed, PRN for erectile dysfunction, Pt to take one tab 1 hour prior to sexual activity. Do not exceed 20mg in 24 hours., # 30 tab(s), Refills(s) 0,Pharmacy: [facility], 165, cm, 05/07/24 9:19:00 EST, Hei... Documented Medications Documented Prozac: 20 mg, Oral, Daily, Refills(s) 0, Depression Vascepa 1 g oral capsule: gm cap(s), Oral, BID, Refills(s) 0, High cholesterol Vitamin D3 50 mcg (2000 intl units) oral tablet, chewable: mcg tab(s), Oral, Daily, Refills(s) 0, Prophylaxis levothyroxine: Daily, Refills(s) 0, Thyroid, Home Medications (8) Active AndroGel Pump 20.25 mg/1.25 g (1.62%) transdermal gel 2 pump, Topical, qAM levothyroxine , Daily Prozac 20 mg, Oral, Daily Questran 4 g/9 g oral powder 1 packet(s), Oral, BID tadalafil 20 mg Tab 20 mg = 1 tab(s), PRN, Oral, As Directed Vascepa 1 g oral capsule , Oral, BID Vitamin D3 50 mcg (2000 intl units) oral tablet, chewable , Oral, Daily Zenpep 60,000 units-189,600 units-252,600 units oral delayed release capsule See Instructions Problem list: All Problems Benign hypertension (high blood pressure) / SNOMED CT 03584741 / Confirmed Thyroid function tests abnormal / SNOMED CT 830525873 / Confirmed Anemia of chronic disorder (low iron) / SNOMED CT 658710676 / Confirmed Bloating / SNOMED CT 665722188 / Confirmed Black stool / SNOMED CT 998055643 / Confirmed Chronic GERD / SNOMED CT 580890073 / Confirmed Decreased sexual desire / SNOMED CT 688302216 / Confirmed Alcohol drinker / SNOMED CT 551565195 / Confirmed Stress-related physiological response affecting medical condition / SNOMED CT 09388667 / Confirmed High triglycerides / SNOMED CT 681762518 / Confirmed Obesity due to excess calories / SNOMED CT 1816607580 / Confirmed ED (erectile dysfunction) / SNOMED CT 3006466643 / Confirmed Hypogonadism male / SNOMED CT 01380482 / Confirmed Screening PSA (prostate specific antigen) / SNOMED CT 085951580 / Confirmed BPH with urinary obstruction / SNOMED CT 1770914096 / Confirmed Acquired buried penis / SNOMED CT 870958357 / Confirmed Histories Past Medical History: No active or resolved past medical history items have been selected or recorded. Family History: Father Diabetes mellitus Hypertension Procedure history: No active procedure history items have been selected or recorded. Social History Social & Psychosocial Habits Tobacco 05/07/2024 Tobacco Use: Chewing tobacco, Never (less than 100 in l Smokeless tobacco use: Smokeless tobacco user wi Type: Oral . Physical Examination Vital Signs (last 24 hrs) Last Charted Temp Temporal 36.6 DegC (MAY 11:28) Heart Rate Monitored 73 bpm (MAY 11:28) Resp Rate 20 br/min (MAY 11:28) SBP H 141 mmHg (MAY 11:) DBP H 93 mmHg (MATT 31 07:28) Weight 108.6 kg (MAY 11 07:18) BMI 37.58 (MAY 11 07:18) General: in Nad Abdomen: Soft, NTND Impression and Plan Impression: change in bowel habits Plan: -EGD and ColonoscopyParkview HealthComment on above:Result Comment: Electronically Signed By: Lesley ROMERO, González Cadena\.br\Date and Time Signed: 05/11/24 08:34 [id number] NoteProgress Note-Physician Patient: TATE ENCARNACION Age: 53 years Sex: Male : 1970 Associated Diagnoses: None Author: Jasvir ROMERO, Cody Alvarez Preoperative Information Anesthesia Preop Info: Time patient last ate or drank 05/11/2024 00:00:00. Anesthesia history: Patient history. Family history+: None. Informed consent: Signed by patient. Re-evaluation prior to induction: Initial evaluation reviewed: No significant change. Review of Systems Eye Ear/Nose/Mouth/Throat Respiratory: No shortness of breath, No cough. Cardiovascular: Negative. Musculoskeletal Neurologic Health Status Allergies: Allergic Reactions (Selected) No Known Allergies No Known Medication Allergies, Allergies (2) Active Severity Reaction No Known Allergies None Documented No Known Medication Allergies None Documented Current medications: (Selected) Inpatient Medications Ordered Sodium Chloride 0.9% IV Claribel 1000 mL 1,000 mL: 1,000 mL, IV, 20 mL/hr, Routine, Start date 05/11/24 6:38:00 EST, 50 hour(s), Total volume (mL): 1,000, 108.1 kg, 2.23, m2 Prescriptions Prescribed AndroGel Pump 20.25 mg/1.25 g (1.62%) transdermal gel: = 2 pump, Topical, qAM, # 75 gram, Refills(s) 3, Pharmacy: [facility], 165, cm, 05/07/24 9:19:00 EST, Height/Length Dosing, 108.1, kg, 05/07/24 9:19:00 EST, Weight Dosing Questran 4 g/9 g oral powder: = 1 packet(s), Oral, BID, # 60 EA, Refills(s) 0, Pharmacy: [facility], 170, cm, 04/24/24 8:57:00 EST, Height/Length Dosing, 108.6, kg, 04/24/24 8:57:00 EST, Weight Dosing Zenpep 60,000 units-189,600 units-252,600 units oral delayed release capsule: See Instructions, 300cap(s), Refill(s) 3, Take 2 caps with each meal and 1 with each snack, [facility], 170, cm, 04/24/24 8:57:00 EST, Height/Length Dosing, 108.6, kg, 04/24/24 8:57:00 EST, Weight Dosing tadalafil 20 mg Tab: 20 mg = 1 tab(s), Oral, As Directed, PRN for erectile dysfunction, Pt to take one tab 1 hour prior to sexual activity. Do not exceed 20mg in 24 hours., # 30 tab(s), Refills(s) 0,Pharmacy: [facility], 165, cm, 05/07/24 9:19:00 EST, Hei... Documented Medications Documented Prozac: 20 mg, Oral, Daily, Refills(s) 0, Depression Vascepa 1 g oral capsule: gm cap(s), Oral, BID, Refills(s) 0, High cholesterol Vitamin D3 50 mcg (2000 intl units) oral tablet, chewable: mcg tab(s), Oral, Daily, Refills(s) 0, Prophylaxis levothyroxine: Daily, Refills(s) 0, Thyroid, Home Medications (8) Active AndroGel Pump 20.25 mg/1.25 g (1.62%) transdermal gel 2 pump, Topical, qAM levothyroxine , Daily Prozac 20 mg, Oral, Daily Questran 4 g/9 g oral powder 1 packet(s), Oral, BID tadalafil 20 mg Tab 20 mg = 1 tab(s), PRN, Oral, As Directed Vascepa 1 g oral capsule , Oral, BID Vitamin D3 50 mcg (2000 intl units) oral tablet, chewable , Oral, Daily Zenpep 60,000 units-189,600 units-252,600 units oral delayed release capsule See Instructions , Medications (1) Active Scheduled: (0) Continuous: (1) Sodium Chloride 0.9% 1,000 mL 1,000 mL, IV, 20 mL/hr PRN: (0) Problem list: All Problems Acquired buried penis / SNOMED CT 089892321 / Confirmed Alcohol drinker / SNOMED CT 505364680 / Confirmed Anemia of chronic disorder (low iron) / SNOMED CT 200394152 / Confirmed Benign hypertension (high blood pressure) / SNOMED CT 47052618 / Confirmed Black stool / SNOMED CT 593257239 / Confirmed Bloating / SNOMED CT 902785285 / Confirmed BPH with urinary obstruction / SNOMED CT 6880204973 / Confirmed Chronic GERD / SNOMED CT 162999072 / Confirmed Decreased sexual desire / SNOMED CT 415899619 / Confirmed ED (erectile dysfunction) / SNOMED CT 3171011383 / Confirmed High triglycerides / SNOMED CT 292836631 / Confirmed Hypogonadism male / SNOMED CT 27820158 / Confirmed Obesity due to excess calories / SNOMED CT 7379920617 / Confirmed Screening PSA (prostate specific antigen) / SNOMED CT 691468240 / Confirmed Stress-related physiological response affecting medical condition / SNOMED CT 30528472 / Confirmed Thyroid function tests abnormal / SNOMED CT 517378611 / Confirmed Canceled: Low libido / SNOMED CT 601235550, Active Problems (16) Acquired buried penis Alcohol drinker Anemia of chronic disorder (low iron) Benign hypertension (high blood pressure) Black stool Bloating BPH with urinary obstruction Chronic GERD Decreased sexual desire ED (erectile dysfunction) High triglycerides Hypogonadism male Obesity due to excess calories Screening PSA (prostate specific antigen) Stress-related physiological response affecting medical condition Thyroid function tests abnormal Histories Past Medical History: No active or resolved past medical history items have been selected or recorded. Family History: Diabetes mellitus Father Hypertension Father Procedure history: No active procedure history items have been selected or (more content not included)...[facility] HealthComment on above:Result Comment: Electronically Signed By: Jasvir ROMERO, Cody Alvarez\.jeaneth\Date and Time Signed: 05/11/24 08:21 [id number] Hospital Discharge instructions Patient Education 05/07/2024 09:53:04 Hypogonadism, Male Hypogonadism, Male Male hypogonadism is a condition of having a level of testosterone that is lower than normal. Testosterone is a chemical, or hormone, that is made mainly in the testicles. In boys, testosterone is responsible for the development of male characteristics during puberty. These include: Making the penis bigger. Growing and building the muscles. Growing facial hair. Deepening the voice. In adult men, testosterone is responsible for maintaining: An interest in sex and the ability to have sex. Muscle mass. Sperm production. Red blood cell production. Bone strength. Testosterone also gives men energy [...] the causes? This condition is caused by: A natural decrease in testosterone that occurs as a man grows older. This is the main cause of thiscondition. Use of medicines, such as antidepressants, steroids, and opioids. Diseases and conditions that affect the testicles or the making of testosterone. These include: ?Injury or damage to the testicles from trauma, cancer, cancer treatment, or infection. ?Diabetes. ?Sleep apnea. ?Genetic conditions that men are born with. ?Disease of the pituitary gland. This gland is in the brain. It produces hormones. ?Obesity. ?Metabolic syndrome. This is a group of diseases that affect blood pressure, blood sugar, cholesterol, and belly fat. ?HIV or AIDS. ?Alcohol abuse. ?Kidney failure. ?Other long-term or chronic diseases. What are the signs or symptoms? Common symptoms of this condition include: Loss of interest in sex (low sex drive). Inability to have or maintain an erection (erectile dysfunction). Feeling tired (fatigue). Mood changes, like irritability or depression. Loss of muscle and body hair. Infertility. Large breasts. Weight gain (obesity). How is this diagnosed? Your health care provider can diagnose hypogonadism based on: Your signs and symptoms. A physical exam to check your testosterone [...] replacement therapy. Testosterone can be given by: Injection or through pellets inserted under the skin. Gels or patches placed on the skin or in the mouth. Testosterone therapy is not for everyone. It has risks and side effects. Your health care provider will consider your medical history, your risk for prostate cancer, your age, and your symptoms before putting you on testosterone replacement therapy. Follow these instructions at home: Take clbc-vma-awicltq and prescription medicines only as told by your health care provider. Eat foods that are high in fiber, such as beans, whole grains, and fresh fruits and vegetables. Limit foods that are high in fat and processed sugars, such as fried or sweet foods. If you drink alcohol: ?Limit how much you have to 0 2 drinks a day. ?Know how much alcohol is in your drink. In the [place] one drink equals one 12 oz bottle of beer (355 mL), one 5 oz glass of wine (148 mL), or one 1 oz glass of hard liquor (44 mL). Return to your normal activities as told by your health care provider. Ask your health care provider what activities are safe for you. Keep all follow-up visits. This is important. Contact a health care provider if: You have any of the signs or symptoms of low testosterone. You have any side effects from testosterone therapy. Summary Male hypogonadism is a condition of having a level of testosterone that is lower than normal. The natural drop in testosterone production that occurs with age is the most common cause of this condition. Low testosterone can also be caused by many diseases and conditions that affect the testicles and the making of testosterone. This condition is treated with testosterone replacement therapy. There are risks and side effects of testosterone therapy. Your health care provider will consider your age, medical history, symptoms, and risks for prostate cancer before putting you on testosteronetherapy. This information is not intended to replace advice given to you by your health care provider. Make sure you discuss any questions you have with your health care provider. Document Revised: 11/27/2020 Document Reviewed: 11/27/2020 [employer] Patient Education 2023 [employer]. 05/07/2024 09:39:27 Erectile Dysfunction Erectile Dysfunction Erectile dysfunction (ED) is the inability to get or keep an erection in order to have sexual intercourse. ED is considered a symptom of an underlying disorder and is not considered a disease. ED mayinclude: Inability to get an erection. Lack of enough hardness of the erection to allow penetration. Loss of erection before sex is finished. What are the causes? This condition may be caused by: Physical causes, such as: ?Artery problems. This may include heart disease, high blood pressure, atherosclerosis, and diabetes. ?Hormonal problems, such as low testosterone. ?Obesity. ?Nerve problems. This may include back or pelvic injuries, multiple sclerosis, Parkinson's disease,spinal cord injury, and stroke. Certain medicines, such as: ?Pain relievers. ?Antidepressants. ?Blood pressure medicines and water pills (diuretics). ?Cancer medicines. ?Antihistamines. ?Muscle relaxants. Lifestyle factors, such as: ?Use of drugs such as marijuana, cocaine, or opioids. ?Excessive use of alcohol. ?Smoking. ?Lack of physical activity or exercise. Psychological causes, such as: ?Anxiety or stress. ?Sadness or depression. ?Exhaustion. ?Fear about sexual performance. ?Guilt. What are the signs or symptoms? Symptoms of this condition include: Inability to get an erection. Lack of enough hardness of the erection to allow penetration. Loss of the erection before sex is finished. Sometimes having normal erections, but with frequent unsatisfactory episodes. Low sexual satisfaction in either partner due to erection problems. A curved penis occurring with erection. The curve may cause pain, or the penis may be too curved toallow for intercourse. Never having nighttime or morning erections. How is this diagnosed? This condition is often diagnosed by: Performing a physical exam to find other diseases or specific problems with the penis. Asking you detailed questions about the problem. Doing tests, such as: ?Blood tests to check for diabetes mellitus or high cholesterol, or to measure hormone levels. ?Other tests to check for underlying health conditions. ?An ultrasound exam to check for scarring. ?A test to check blood flow to the penis. Doing a sleep study at home to measure nighttime erections. How is this treated? This condition may be treated by: Medicines, such as: ?Medicine taken by mouth to help you achieve an erection (oral medicine). ?Hormone replacement therapy to replace low testosterone levels. ?Medicine that is injected into the penis. Your health care provider may instruct you how to give yourself these injections at home. ?Medicine that is delivered with a short applicator tube. The tube is inserted into the opening at the tip of the penis, which is the opening of the urethra. A tiny pellet of medicine is put in the urethra. The pellet dissolves and enhances erectile function. This is also called MUSE (medicated urethral system for erections) therapy. Vacuum pump. This is a pump with a ring on it. The pump and ring are placed on the penis and used to create pressure that helps the penis become erect. Penile implant surgery. In this procedure, you may receive: ?An inflatable implant. This consists of cylinders, a pump, and a reservoir. The cylinders can be inflated with a fluid that helps to create an erection, and they can be deflated after intercourse. ?A semi-rigid implant. This consists of two silicone rubber rods. The rods provide some rigidity. They are also flexible, so the penis can both curve downward in its normal position and become straight for sexual intercourse. Blood vessel surgery to improve blood flow to the penis. During this procedure, a blood vessel froma different part of the body is placed into the penis to allow blood to flow around (bypass) damaged or blocked blood vessels. Lifestyle changes, such as exercising more, losing weight, and quitting smoking. Follow these instructions at home: Medicines Take scsn-pqp-ixhhlvi and prescription medicines only as told by your health care provider. Do not increase the dosage without first discussing it with your health care provider. If you are using self-injections, do injections as directed by your health care provider. Make sureyou avoid any veins that are on the surface of the penis. After giving an injection, apply pressureto the injection site for 5 minutes. Talk to your health care provider about how to prevent headaches while taking ED medicines. These medicines may cause a sudden headache due to the increase in blood flow in your body. General instructions Exercise regularly, as directed by your health care provider. Work with your health care provider to lose weight, if needed. Do not use any products that contain nicotine or tobacco. These products include cigarettes, chewing tobacco, and vaping devices, such as e-cigarettes. If you need help quitting, ask your health careprovider. Before using a vacuum pump, read the instructions that come with the pump and discuss any questionswith your health care provider. Keep all follow-up visits. This is important. Contact a health care provider if: You feel nauseous. You are vomiting. You get sudden headaches while taking ED medicines. You have any concerns about your sexual health. Get help right away if: You are taking oral or injectable medicines and you have an erection that lasts longer than 4 hours. If your health care provider is unavailable, go to the nearest emergency room for evaluation. An erection that lasts much longer than 4 hours can result in permanent damage to your penis. You have severe pain in your groin or abdomen. You develop redness or severe swelling of your penis. You have redness spreading at your groin or lower abdomen. You are unable to urinate. You experience chest pain or a rapid heartbeat (palpitations) after taking oral medicines. These symptoms may represent a serious problem that is an emergency. Do not wait to see if the symptoms will go away. Get medical help right away. Call your local emergency services (911 in the [place] Do not drive yourself to the hospital. Summary Erectile dysfunction (ED) is the inability to get or keep an erection during sexual intercourse. This condition is diagnosed based on a physical exam, your symptoms, and tests to determine the cause. Treatment varies depending on the cause and may include medicines, hormone therapy, surgery, or a vacuum pump. You may need follow-up visits to make sure that you are using your medicines or devices correctly. Get help right away if you are taking or injecting medicines and you have an erection that lasts longer than 4 hours. This information is not intended to replace advice given to you by your health care provider. Make sure you discuss any questions you have with your health care provider. Document Revised: 06/24/2021 Document Reviewed: 06/24/2021 [employer] Patient Education 2023 [employer]. Follow Up Care 04/27/2024 13:04:43 With:AURORA ROMERO, Ji Be, URL Address: [facility] [address] [place] [address] [phone] When: Unknown Comments:4 mos w/ PSA and T level [facility] 01-27-2025 NotePatient Education Urology Hypogonadism, Male Male hypogonadism is [...] Follow these instructions at home: ??? Take rvut-lkh-dbjmsvr and prescription medicines only as told by your health care provider. ??? Eat foods that are high in fiber, such as beans, whole grains, and fresh fruits and vegetables.Limit foods that are high in fat and [...] sure you discuss any (more content not included)...[facility] HealthEvaluation + Plan note Future Appointments Appointment Date:05/04/2024 09:30:00 AM Scheduled Provider: Location:[facility] Appointment Type:Surgery FT Appointment Date:05/11/2024 09:00:00 AM Scheduled Provider:Alejandra Hayden MD Location:[facility] [place] Appointment Type:BAD Follow Up Future Scheduled Tests Laboratory* Pancreatic Elastase, Fecal 04/24/24 * Pancreatic Elastase, Fecal 04/24/24 * Calprotectin, Fecal 04/24/24 Radiology* US Abdomen, Limited 04/24/24 [facility] evaluation + Plan note Future Appointments Appointment Date:05/04/2024 09:30:00 AM Scheduled Provider: Location:[facility] Appointment Type:Surgery FT Appointment Date:05/11/2024 09:00:00 AM Scheduled Provider:Alejandra Hayden MD Location:[facility] [place] Appointment Type:BAD Follow Up Diagnostic Tests Pending * Celiac Disease Comprehensive 04/24/24 * Testosterone Level Total 04/24/24 Future Scheduled Tests Laboratory* Pancreatic Elastase, Fecal 04/24/24 * Pancreatic Elastase, Fecal 04/24/24 * Calprotectin, Fecal 04/24/24 Radiology* US Abdomen, Limited 04/24/24 [facility] evaluation + Plan note Future Appointments Appointment Date:04/26/2024 08:30:00 AM Scheduled Provider: Location[facility] Appointment Type:US Abdominal/Pelvis (FT) Appointment Date:05/04/2024 09:30:00 AM Scheduled Provider: Location:[facility] Appointment Type:Surgery FT Appointment Date:05/11/2024 09:00:00 AM Scheduled Provider:Alejandra Hayden MD Location:[facility] [place] Appointment Type:BAD Follow Up Diagnostic Tests Pending * Calprotectin, Fecal 04/25/24 * Pancreatic Elastase, Fecal 04/25/24 Future Scheduled Tests Radiology* US Abdomen, Limited 04/26/24 [facility] evaluation + Plan note Future Appointments Appointment Date:05/04/2024 09:30:00 AM Scheduled Provider: Location:[facility] Appointment Type:Surgery FT Appointment Date:05/11/2024 09:00:00 AM Scheduled Provider:Alejandra Hayden MD Location[facility] Appointment Type:BADH Follow Up [facility] Evaluation + Plan note Future Appointments Appointment Date:05/11/2024 08:15:00 AM Scheduled Provider: Location:[facility] Appointment Type:Surgery FT Appointment Date:05/21/2024 09:00:00 AM Scheduled Provider:González Sutton MD Location:[facility] Appointment Type:BADH Follow Up Appointment Date:09/07/2024 09:45:00 AM Scheduled Provider:Ji SIMON MD Location:[facility] Appointment Type:URO Office Visit Diagnostic Tests Pending * Testosterone Level Total 05/07/24 * PSA Screen, Total 05/07/24 [facility] Hospital course Narrative No data available for this section [facility] Hospital Discharge instructions No data available for this section [facility] Progress note No data available for this section [facility] Summary Purpose Family History No Family History Records Found No data available for this section No data available for this section No data available for this section No data available for this section No Family History Records FoundNo Family History Records FoundNo Family History Records FoundNo Family History Records Found No data available for this section No Family History Records Found No data available for this section No Family History Records Found Advance Directives [...] and content) DATE CREATED AUTHOR 03/21/2018 [facility] DATE CREATED AUTHOR AUTHOR'S ORGANIZ ATION 04/27/2024 [facility] DATE CREATED AUTHOR AUTHOR'S ORGANIZ ATION 04/28/2024 [facility] DATE CREATED AUTHOR AUTHOR'S ORGANIZ ATION 04/30/2024 [facility] DATE CREATED AUTHOR AUTHOR'S ORGANIZ ATION 05/05/2024 [facility] DATE CREATED AUTHOR AUTHOR'S ORGANIZ ATION 05/09/2024 [facility] DATE CREATED AUTHOR AUTHOR'S ORGANIZ ATION 05/13/2024 [facility] Patient Care team informatio n (unrecognized section and content) Personnel Name: MELI HORNER NEW Naik Address: Address: [address] [place] [address] Personnel Name: MELIVICTORINA HORNER NEW Heena Address: Address: [address] [place] [address] [address] Personnel Name: MELI HORNER NEW Heena Address: Address: [address] [place] [address] [address] Personnel Name: MELI EVENSNEW Address: Address: [address] [place] [address] Personnel Name: MELIVICTORINA HORNER NEW Naik Address: Address: [address] [place] [address] [address] Personnel Name: MELI EVENSNEW Address: Address: [address] [place] [address] FOR RECORDS PERTAINING TO PATIENTS WHO ARE [...] BE BASED ON THE PRIMARY CLINICAL RECORDS. [facility] [email or web address] [facility]. provides no warranty or guarantee of the accuracy or completeness of information in this document.
[2024-05-14 10:13] LABS: Basophils Percent Auto 0.7 % (0.2-2.0); Eosinophils Absolute Auto 0.1 10^3/uL (0.0-0.7); Eosinophils Percent Auto 1.9 % (0.9-7.0); Hematocrit 39.4 % (42.0-54.0); Hemoglobin 13.8 g/dL (14.0-18.0); Immature Granulocytes Abs Auto 0.01 10^3/uL (0.00-0.03); Immature Granulocytes Pct Auto 0.2 % (0.0-0.5); Lymphocytes Absolute Auto 1.5 10^3/uL (1.2-3.8); Lymphocytes Percent Auto 25.6 % (20.5-60.0); Mean Corpuscular Hemoglobin 34.2 pg (25.9-34.0); Mean Corpuscular Volume 97.8 fL (80.0-94.0); Mean Platelet Volume 9.9 fL (9.5-13.5); Monocytes Absolute Auto 0.4 10^3/uL (0.3-0.8); Monocytes Percent Auto 6.2 % (1.7-12.0); Neutrophils Absolute Auto 3.8 10^3/uL (1.4-6.5); Neutrophils Percent Auto 65.4 % (43.0-75.0); Platelet Count 184 10^3/uL (150-450); Red Blood Count 4.03 10^6/uL (4.70-6.10); Red Cell Distribution Width 13.1 % (11.0-15.0); White Blood Count 5.8 10^3/uL (4.0-11.0)
[2024-05-14 10:15] LABS: Erythrocyte Sedimentation Rate 16 mm/hr (<=20)
[2024-05-14 10:58] LABS: Anion Gap 13.3; BUN Creatinine Ratio 11.5; C Reactive Protein <0.50 mg/dL (<=0.50); Calcium 9.1 mg/dL (8.5-10.1); Chloride 101 mmol/L (98-107); Estimated GFR (African America >60 (>=60 mL/min/1.73m^2); Estimated GFR (Non-African Ame 57 (>=60 mL/min/1.73m^2); Glucose 152 mg/dL (74-106); Potassium 4.3 mmol/L (3.5-5.1); Sodium 138 mmol/L (136-145)
[2024-05-15 06:08] LABS: Rheumatoid Factor (RF) 13.8 IU/mL (<14.0)
[2024-05-15 15:09] LABS: Antinuclear Antibodies, IFA Negative (.)
[2024-05-17 18:07] LABS: HLA B 27 Disease Association Negative (.)
== END 2024-05-14 09:44 | disposition home or self-care (01) ==
LOC: LAB 09:44
PROVIDERS: PCP Nurse Practitioner Family; Visit Provider Orthopaedic Surgery
DX: M79.89 Other specified soft tissue disorders (principal)
CPT/HCPCS: 36415; 80048; 81374; 85025; 85652; 86038; 86140; 86431

== ENCOUNTER 2024-06-05 09:37 | Outpatient (OUT) | payer OTHER, SELFPAY ==
--- OUTSIDE RECORDS SUMMARY | 2024-06-05 09:47 | XMS_ITS | CCD ---
Author Organization [facility]iniSypr Care Team Providers Care Communications Executive Name Role Phone NADERER, LUIS ANTONIO A [...] LUIS ANTONIO A Unavailable Unavailable NADERER, LUIS ANOTNIO A Unavailable Unavailable NADERER, LUIS ANTONIO A Unavailable Unavailable NADERER, LUIS ANTONIO A Unavailable Unavailable NADERER, LUIS ANTONIO A Unavailable Unavailable NADERER, LUIS ANTONIO A Unavailable Unavailable KIRA GARRISON Primary Care Physician [phone] Mokarmen, Mohamad A. Admitting Unavailable Mouchli, Mohamad A. Attending Unavailable Mouchli, Mohamad A. Attending Unavailable Mouchli, Mohamad A. Admitting Unavailable Ji SIMON Attending Unavailable Mouchli, Mohamad A. Admitting Unavailable Mouchli, Mohamad A. Attending Unavailable Monestorli, Mohamad A. Referring Unavailable Kira Garrison MD Unavailable Unallocated , Kelbys Provider Primary Care Provi radha Sandra Castellanos DO Unavailable Mouchli, Mohamad A. Referring Unavailable Ji SIMON Attending Unavailable Mouchli, Mohamad A. Attending Unavailable Mouchli, Mohamad A. Referring Unavailable Mouchli, Mohamad A. Admitting Unavailable Mouchli, Mohamad A. Admitting Unavailable Mouchli, Mohamad A. Attending Unavailable González Sutton Attending Unavaila ble Jackelyn, Mohamad A. Attending Unavailable SANDRA CASTELLANOS Attending Unavailable KIRA GARRISON Referring Unavailable JAZLYN LEMUS Attending Unavailable GENOVEVA CHILDS Referring Unavailable JAZLYN LEMUS Attending Unavailable GENOVEVA CHILDS Referring Unavailable JAZLYN LEMUS Attending Unavailable GENOVEVA CHILDS Referring Unavailable JAZLYN LEMUS Attending Unavailable GENOVEVA CHILDS Referring Unavailable Allergies Allergy Classification Reported Allergen(s) Allergy Type Date of Onset Reaction(s) Facility (4 sources) No Known Medication Allergies; Translations: [No Known Medication Allergies] Propensity to adverse reactions (disorder) [facility] Repository Medications Current Medications Medication Drug Class(es) Dates Sig (Normalized) Sig (Original) amylase 544972 UNT / lipase 62550 UNT / protease 949885 UNT Delayed Release Oral Capsule [Zenpep] (3 sources) Start: 04-30-2024 Zenpep 60,000 units-189,600 units-252,600 units oral delayed release capsule See Instructions, 300 cap(s), Refill(s) 3, Take 2 caps with each meal and 1 with each snack, [facility], 170, cm, 04/24/24 8:57:00 EST, Height/Length Dosing, 108.6, kg, 04/24/24 8:57:00 EST, Weight Dosing Start Date: 04/30/24 Status: Ordered cholecalciferol 0.05 mg oral capsule (7 sources) Vitamin D Start: 04-23-2024 take 1 capsule by mouth once daily cholecalciferol (Vitamin D-3) 50 MCG (2000 UT) capsule Take 2,000 Units by mouth Daily 04/23/2024 Active cholestyramine resin 4000 mg powder for oral suspension (15 sources) Bile Acid Sequestrant Start: 05-14-2024 take 4 g by mouth in the morning cholestyramine (Questran) 4 GM/DOSE powder Take 4 g by mouth in the morning and 4 g in the evening. Take with meals. 05/14/2024 Active Start: 05-14-2024 take 4 g by mouth twice daily cholestyramine 4 g/9 g Oral Pwdr 4 gm, Oral, BID, 378 gm, Refill(s) 11, [facility], 170, cm, 05/11/24 7:28:00 EST, Height/Length Dosing, 108.6, kg, 05/11/24 7:28:00 EST, Weight Dosing Start Date: 05/14/24 Status: Ordered Start: 04-24-2024 Questran 4 g/9 g oral powder = 1 packet(s), Oral, BID, # 60 EA, Refills(s) 0, Pharmacy: [facility] #[facility], 170, cm, 04/24/24 8:57:00 EST, Height/Length Dosing, 108.6, kg, 04/24/24 8:57:00 EST, Weight Dosing Start Date: 04/24/24 Status: Ordered FLUoxetine 20 mg oral capsule (14 sources) Serotonin Reuptake Inhibitor Start: 05-14-2024 take 1 capsule by mouth once daily FLUoxetine (PROzac) 20 MG capsule Take 20 mg by mouth Daily 05/14/2024 Active Start: 04-24-2024 take 20 mg by mouth once daily Prozac 20 mg, Oral, Daily, Refills(s) 0, Depression Start Date: 04/24/24 Status: Ordered icosapent ethyl 1000 mg oral capsule (14 sources) Start: 04-24-2024 take 1 capsule by mouth twice daily Vascepa 1 g oral capsule gm cap(s), Oral, BID, Refills(s) 0, High cholesterol Start Date: 04/24/24 Status: Ordered Start: 04-20-2024 take 2 capsules by m outh in the morning Vascepa 1 g capsule Take 2 capsules by mouth in the morning and 2 capsules in the evening. Take with meals. 04/20/2024 Active levothyroxine (14 sources) l-Thyroxine Start: 04-24-2024 levothyroxine Daily, Refills(s) 0, Thyroid Start Date: 04/24/24 Status: Ordered Start: 04-24-2024 levothyroxine Daily, Refills(s) 0 Start Date: 04/24/24 Status: Ordered Start: 04-11-2024 take 1 tablet by katerina th once daily levothyroxine (Synthroid, Levoxyl) 50 MCG tablet Take 50 mcg by mouth Daily 04/11/2024 Active meloxicam 15 mg oral tablet (7 sources) Nonsteroidal Anti-inflammatory Drug Start: 05-14-2024 take 1 tablet by mouth once daily Mobic 15 MG tablet Take 15 mg by mouth 1 (one) time each day at the same time 05/14/2024 Active omeprazole 40 mg delayed release oral capsule (9 sources) Proton Pump Inhibitor Start: 05-11-2024 take 1 capsule by mouth in the morning omeprazole (PriLOSEC) [address] capsule Take 40 mg by mouth in the morning and 40 mg before bedtime. 05/11/2024 Active 60 actuat testosterone 20.25 mg/actuat topical gel (2 sources) Androgen Start: 05-07-2024 AndroGel Pump 20.25 mg/1.25 g (1.62%) transdermal gel = 2 pump, Topical, qAM, # 75 gram, Refills(s) 3, Pharmacy: [facility], 165, cm, 05/07/24 9:19:00 EST, Height/Length Dosing, 108.1, kg, 05/07/24 9:19:00 EST, Weight Dosing Start Date: 05/07/24 Status: Ordered Vitamin D3 50 mcg (2000 intl units) oral tablet, chewable (7 sources) Start: 04-24-2024 take 1 tablet by [...] Sig (Original) tadalafil 20 mg oral tablet (3 sources) Phosphodiesterase 5 Inhibitor Start: 05-07-2024 take [...] hours., # 30 tab(s), Refills(s) 0, Pharmacy: [facility], 165, cm, 05/07/24 9:19:00 EST, Height/Length Dosing, 108.1, kg, 05/07/24 9:19:00 EST, Weight Dosing Start Date: 05/07/24 Status: Ordered Problems Problem Classification Problem Date Documented Da te Episodic/Chronic Deficiency and other anemia (7 sources) Anemia of chronic disease 04-24-2024 Chronic Disorders of lipid metabolism (8 sources) Pure hyperglyceridemia; Translations: [Pure hyperglyceridemia] Onset: 5 Chronic Esophageal disorders (9 sources) Gastroesophageal reflux disease without esophagitis; Translations: [Gastro-esophageal reflux disease without esophagitis] Onset: 5 Chronic Essential hypertension (7 sources) Benign hypertension 04-24-2024 Chronic Gastrointestinal hemorrhage (2 sources) Melena; Translations: [Melena] Onset: Episodic Hyperplasia of prostate (4 sources) Benign prostatic hypertrophy with outflow obstruction; Translations: [Benign prostatic hyperplasia with lower urinary tract symptoms] Onset: 5 Chronic Malaise and fatigue (4 sources) Other fatigue; Translations: [OTHER FATIGUE] Onset: 8 Episodic Miscellaneous mental health disorders (18 sources) Psychosomatic factor in physical condition; Translations: [Psychological and behavioral factors associated with disorders or diseases classified elsewhere] Onset: 5 Chronic Other and unspecified benign neoplasm (2 sources) Polyp of colon; Translations: [Polyp of colon] Onset: 5 Episodic Other connective tissue disease (13 sources) Swelling of hand; Translations: [Other specified soft tissue disorders] Onset: 5 05-15-2024 Episodic Other connective tissue disease (2 sources) Neuralgia; Translations: [Neuralgia and neuritis, unspecified] 05-17-2024 Episodic Other endocrine disorders (1 source) Testicular hypofunction; Translations: [Testicular hypofunction] Onset: 5 Chronic Other endocrine disorders (3 sources) Male hypogonadism 05-07-2024 Chronic Other gastrointestinal disorders (3 sources) Irritable bowel syndrome with diarrhea; Translations: [Irritable bowel syndrome with diarrhea] Onset: 5 Chronic Other gastrointestinal disorders (2 sources) Swollen abdomen; Translations: [Abdominal distension (gaseous)] Onset: 5 Episodic Other gastrointestinal disorders (7 sources) Abdominal bloating 04-24-2024 Episodic Other gastrointestinal disorders (7 sources) Black feces 04-24-2024 Episodic Other liver diseases (2 sources) Steatosis of liver; Translations: [Fatty (change of) liver, not elsewhere classified] Onset: 5 Chronic Other male genital disorders (4 sources) Acquired buried penis; 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] Onset: 5 Chronic Other male genital disorders (4 sources) Male erectile dysfunction, unspecified; Translations: [Erectile dysfunction] Onset: 5 Chronic Other non-traumatic joint disorders (13 sources) Stiffness of joint of right hand; Translations: [Stiffness of right hand, not elsewhere classified] Onset: 5 05-15-2024 Episodic Other nutritional; endocrine; and metabolic disorders (1 source) Obesity; Translations: [Other obesity due to excess calories] Onset: 5 Chronic Other nutritional; endocrine; and metabolic disorders (7 sources) Obesity caused by energy imbalance 04-24-2024 Chronic Other screening for suspected conditions (not mental disorders or infectious disease) (9 sources) Encounter for screening for malignant neoplasm of prostate; Translations: [Thyroid function tests abnormal] Onset: 8 04-24-2024 Episodic Residual codes; unclassified (1 source) Idiopathic hypersomnia with long sleep time; Translations: [IDIO HYPERSOMNIA W/LONG SLEEP TIME] Onset: 8 Chronic Residual codes; unclassified (4 sources) Obstructive sleep apnea (adult) (pediatric); Translations: [OBSTRUCTIVE SLEEP APNEA] Onset: 8 Chronic Residual codes; unclassified (2 sources) Patient encounter status; Translations: [Other specified health status] Onset: 5 Episodic Residual codes; unclassified (7 sources) Current drinker 04-24-2024 Episodic Thyroid disorders (5 sources) Hypothyroidism, unspecified; Translations: [HYPOTHYROIDISM UNSPECIFIED] Onset: 8 Chronic Unclassified (3 sources) Patient encounter status 05-07-2024 Results Test Name Value Interpretation Reference Range Facility Reminderson 05-22-2024 Reminders Reminders From: Cheryl Christian To: Gina Barbosa; Cheryl Christian; Sent: 05/22/2024 12:59:32 EST Show up: 08/19/2024 13:59:00 EDT Subject: Ambulatory Reminder Due Date/Time: 09/19/2024 13:59:00 EDT Reminder Please call the patient in August to schedule his EGD in the surgery center for me If patient is credentialed at that time with Dr. Hayden he can be scheduled with him for the EGD if he is okay with it Normal [facility] Gastroenterology Office/Clin ic Noteon 05-21-2024 Gastroenterology Office/Clinic Note Gastroenterology Office/Clinic Note Chief Complaint follow up to egd/colonoscopy HPI Staff Established patient is a(n) 53 year old male who presents today for a follow up to EGD & Colonoscopy on 05/11/24. Pt previously seen with Dr. Hayden, but insurance was denying EGD/Colon stating he was out of network for [employer]. Pt was r/s with Dr. Sutton. Fecal calprotectin/elastase not completed as ordered at last visit. Pain worse with fatty/greasy foods. Cholestyramine working well? Feels like it has been helping. takes zenpep too, does not know if the cholestraymine or this is helping. Any blood thinners? no Any GLP-1 agonists? no US abd 04/26/24: IMPRESSION: HEPATIC STEATOSIS, WITH FOCAL FATTY SPARING. Celiac Panel Antigliadin IgA: 4 (04/24/24) Antigliadin Ig (04/24/24) Endomysial Antibody IgA: Negative (04/24/24) IgA Quant: 213 (04/24/24) t-Transglutaminase IgA: <2 (04/24/24) t-Transglutaminase IgG: <2 (04/24/24) CRP: 0.2 mg/dL (04/24/24) Testosterone Total: * L 194 ng/dL (04/24/24) History of Present Illness Reviewed HPI collected by staff Review of Systems PHQ Score Initial Depression Screen Score: 2 SCORE Initial Depression Screen Score: 2 SCORE All systems reviewed, negative; Except for above Physical Exam Vitals & Measurements HR: 66(Peripheral) RR: 14 BP: 138/80 HT: 67 in HT: 170 cm WT: 107 kg WT: 235.894 lb BMI: 37.02 General: in Nad Abdomen: Soft, NTND Procedure EGD: Impression and Plan 1. Esophagus was identified grade B esophagitis noted. Yellowish flakes in the esophagus could represent Sheree esophagitis, biopsied 2. Moderate gastritis in the antrum with couple small ulcers, no biopsies were taken to rule out H. pylori 3. Normal examined duodenum. Random biopsies were taken rule out celiac disease Addendum by Lesley ROMERO, González Cadena on May 11, 2024 9:09 EST ( Modified ) Start omeprazole 40 mg daily twice a day before meals Repeat EGD in 3 months to ensure esophagitis healing Colonoscopy: Impression and Plan 1. Small internal hemorrhoids [...] microscopic colitis 6. Normal examined terminal ileum Recommendations: Repeat colonoscopy:: In 5 years. Pathology: Final Diagnosis ( Modified ) A: DUODENUM, BIOPSY: --FRAGMENTS OF SMALL BOWEL MUCOSA WITH PRESERVED VILLOUS ARCHITECTURE AND NO SIGNIFICANT DIAGNOSTIC CHANGE B: ESOPHAGUS, BIOPSY: ??? REACTIVE SQUAMOUS MUCOSA WITH MILD CHRONIC ESOPHAGITIS, COMPATIBLE WITH REFLUX, SEE NOTE ??? NO INTESTINAL METAPLASIA OR GLANDULAR EPITHELIUM Note: Multiple deeper levels were examined. C: STOMACH, BIOPSY: --GASTRIC MUCOSA WITH CHRONIC INACTIVE GASTRITIS, SEE NOTE --NO MORPHOLOGIC EVIDENCE OF HELICOBACTER PYLORI-LIKE ORGANISMS Note: Immunohistochemical stain for Helicobacter pylori is negative with appropriate control. D: POLYP, ASCENDING COLON, POLYPECTOMY: ???POLYPOID FRAGMENTS OF CHRONIC MUCOSA WITH INTRAMUCOSAL LYMPHOID AGGREGATES FOCAL SURFACE HYPERPLASTIC CHANGE, SEE NOTE --NO ADENOMATOUS EPITHELIUM IS IDENTIFIED Note: Multiple deeper levels were examined E: COLON, RANDOM BIOPSY: --FRAGMENTS OF COLONIC MUCOSA WITH NO SIGNIFICANT DIAGNOSTIC CHANGE F: POLYP, TRANSVERSE COLON, POLYPECTOMY: --FRAGMENTS OF TUBULAR ADENOMA Assessment/Plan 1. Irritable bowel syndrome with diarrhea (K58.0: Irritable bowel syndrome with diarrhea) Taking Zenpep and Cholestyramine with relief. Was having BM 3-6 times daily to have a BM. Now having about once daily. Wakes up some nights to have a BM. Denies blood in stools. Negative celiac panel. Negative IBD work up. Recommended Imodium prn 2. Bloating (R14.0: Abdominal distension (gaseous)) 3. Black stool (K92.1: Melena) 4. Chronic GERD (K21.9: Gastro-esophageal reflux disease without esophagitis) EGD 05/05: Grade B esophagitis Taking Omeprazole. Schedule EGD in 3 months to evaluate. Discussed risks and benefits, patient agreeable. 5. Alcohol drinker (Z78.9: Other specified health status) 6. Stress-related physiological response affecting medical condition (F54: Psychological and behavioral factors associated with disorders or diseases classified elsewhere) 7. Decreased sexual desire (F52.0: Hypoactive sexual desire disorder) 8. Fatty liver (K76.0: Fatty (change of) liver, not elsewhere classified) US abd 04/26/24 showed fatty liver. 9. Colon polyps (K63.5: Polyp of colon) Colonoscopy 05/05: TA removed. Repeat colonoscopy in 7 years. ISyeda, personally scribed for González Sutton on 05/21/2024 09:37:51. . Documentation recorded by (more content not included)... [facility] Comment on above: Result Comment: Elec tronically Signed By: González Sutton MD\.br\Date and Time Signed: 05/21/24 09:44 EST\.br\Electronically Co-Signed By: Syeda Chavez MA\.br\Date and Time Co-Signed: 05/21/24 09:42 EST Surgical Pathology Reporton 05-17-2024 Surgical Pathology Report [facility] [address] [place] [address]- Surgical Pathology Report Collected Date/Time: 05/11/2024 08:38 EST Pathologist: Triny Israel MD Received Date/Time: 05/11/2024 10:55 EST Lesley ROMERO, González Sutton MD, González Cadena 07 Surgical Pathology Report - 05/17/2024 11:55 EST - Auth (Verified) Final Diagnosis A: DUODENUM, BIOPSY: --FRAGMENTS OF SMALL BOWEL MUCOSA WITH PRESERVED VILLOUS ARCHITECTURE AND NO SIGNIFICANT DIAGNOSTIC CHANGE B: ESOPHAGUS, BIOPSY: - REACTIVE SQUAMOUS MUCOSA WITH MILD CHRONIC ESOPHAGITIS, COMPATIBLE WITH REFLUX, SEE NOTE - NO INTESTINAL METAPLASIA OR GLANDULAR EPITHELIUM Note: Multiple deeper levels were examined. C: STOMACH, BIOPSY: --GASTRIC MUCOSA WITH CHRONIC INACTIVE GASTRITIS, SEE NOTE --NO MORPHOLOGIC EVIDENCE OF HELICOBACTER PYLORI-LIKE ORGANISMS Note: Immunohistochemical stain for Helicobacter pylori is negative with appropriate control. D: POLYP, ASCENDING COLON, POLYPECTOMY: - POLYPOID FRAGMENTS OF CHRONIC MUCOSA WITH INTRAMUCOSAL LYMPHOID AGGREGATES FOCAL SURFACE HYPERPLASTIC CHANGE, SEE NOTE --NO ADENOMATOUS EPITHELIUM IS IDENTIFIED Note: Multiple deeper levels were examined E: COLON, RANDOM BIOPSY: --FRAGMENTS OF COLONIC MUCOSA WITH NO SIGNIFICANT DIAGNOSTIC CHANGE F: POLYP, TRANSVERSE COLON, POLYPECTOMY: --FRAGMENTS OF TUBULAR ADENOMA (Electronic Signature) Triny. MD Lindy 05/17/2024 11:55 Clinical Information Chronic GERD, change in bowel habits Pre-Op Diagnosis: Chronic GERD, change in bowel habits Procedure: EGD, colonoscopy Post-Op Diagnosis: 1. Esophagus was identified grade B esophagitis noted. Yellowish flakes in the esophagus could represent Sheree esophagitis, biopsied 2. Moderate gastritis in the antrum with couple small ulcers, no biopsies were taken to rule out H. pylori 3. Normal examined duodenum. Random biopsies were taken rule out celiac disease 4. Small internal hemorrhoids seen on retroflexion 5. Moderate sigmoid diverticulosis 6. 5 mm sessile polyp in the transverse colon, resected with cold snare completely retrieved 7. 2 mm sessile polyp in the ascending colon, resected with cold biopsy forceps completely and retrieved 8. Otherwise normal colonic mucosa, random biopsies were taken to rule out microscopic colitis 9. Normal examined terminal ileum Surgical Pathology Report Collected Date/Time: 05/11/2024 08:38 EST Pathologist: Triny Israel MD Received Date/Time: 05/11/2024 10:55 EST Lesley ROMERO, González Sutton MD, González Cadena Specimen(s) Received A.Duodenal biopsy B.Esophageal biopsy C.Gastric biopsy D.Ascending colon polyp E.Random colon biopsy F.Transverse colon polyp Gross Description A: Received in formalin labeled with patient name, number, and duodenal biopsy are two fragments of brady/pink tissue measuring 0.1 and 0.2 cm. The specimen is entirely submitted in one cassette. B: Received in formalin labeled with patient name, number, and esophageal biopsy are two fragments of brady/pink tissue measuring less than 0.1 cm and up to 0.2 cm. Specimen is entirely submitted in one cassette. C: Received in formalin labeled with patient name, number, and gastric biopsy are four fragments of brady/pink tissue ranging from less than 0.1 cm up to 0.1 cm. Specimen is entirely submitted in one cassette. D: Received in formalin labeled with patient name, number, and ascending colon polyp is a single fragment of brady/pink tissue measuring 0.1 x 0.1 x 0.1 cm. Specimen is entirely submitted in one cassette. E: Received in formalin labeled with patient name, number, and random colon biopsy are five fragments of brady/pink tissue ranging from 0.1 cm up to 0.3 cm in greatest dimension. Specimen is entirely submitted in one cassette. F: Received in formalin labeled with patient name, number, and transverse colon polyp are multiple fragments of brady tissue ranging from less than 0.1 cm up to 0.2 cm in greatest dimension measuring in aggregate 0.6 x 0.4 x 0.1 cm. Specimen is entirely submitted in one cassette. (DC) DC:MCA Microscopic Description Microscopic examination performed unless gross only specified. This report was transcribed using voice recognition technology and might contain unintended computerized anatomy and physiology instructor errors. The use of one or more reagents in the above tests is regulated as an analyte specific reagent (ASR). The test or tests are ordered following initial H&E microscopic examination. The performance characteristics were determined by the [facility] Surgical Pathology. They have not been cleared or approved by the US Food and Drug Administration. The FDA has determined that such clearance or approval is not necessary. These tests are used for clinical purposes. They should not be regarded as investigational or for research. Appropriate positive and negative co (more content not included)... [facility] Comment on above: Performed By: #### [id number] #### [facility] [address] [place] [address] Discharge Instructionson Discharge Instructions Discharge Instructions TATE ENCARNACION :1970 Visit Date:05/11/2024 Inpatient Discharge Instructions Your Care Team Admitting Physician - Alejandra Hayden MD Referring Physician - Aeljandra Hayden MD Reason for Your Visit IRRITABLE [...] EST With: Lesley ROMERO, González Cadena Where: [facility] [address] [place] [address]- Tuesday 9:45 AM EDT With: Ji SIMON MD Where: [facility] [address] [place] [address]- Medications What How Much When Why Instructions Next Dose New omeprazole (omeprazole 40 mg Cap-DR) 1 Capsules By Mouth 2 times a day Refills: 3 Pickup at [facility] Unchanged cholecalciferol (Vitamin D3 50 mcg [...] a day (in the morning) Pharmacy Information [facility]: [address] [place], [place] [phone] Test Results No qualifying data available. Allergies [...] tarry stool (more content not included)... [facility] Comment on above: Result Comment: Elec tronically Signed By: Cy SADLER, Mariama\.br\Date and Time Signed: 05/11/24 09:44 EST Discharge [...] 9:00 AM EST With: Lesley ROMERO, González Cadnea Where: [facility] [address] [place] [address] [place] [address]- Tuesday. 2024 9:45 AM EDT With: AURORA ROMERO, Ji Be Where: [facility] [address] [place] [address] [place] [address]- Medications What How Much When Why Instructions Next Dose New omeprazole (omeprazole 40 mg Cap-DR) 1 Capsules By Mouth 2 times a day Refills: 3 Pickup at [facility] Unchanged cholecalciferol (Vitamin D3 50 mcg [...] a day (in the morning) Pharmacy Information [facility]: [address] [place] [phone] Test Results No qualifying data available. Allergies [...] malt extra (more content not included)... [facility] Comment on above: Result Comment: Elec tronically Signed By: Cy SADLER, Mariama\.jeaneth\Date and Time Signed: 05/11/24 09:30 EST Main OR Intraoperative Recor don 05-11-2024 Main OR Intraoperative Record Main OR Intraoperative Record IntraOp Document Type FT Summary Primary Physician: González Sutton MD Finalized Date/Time: 05/11/24 10:41:05 Pt. Name: TATE ENCARNACION/Sex: 1970 Male Med Rec #: [id number] Physician: Alejandra Hayden MD Financial #: [id number] Pt. Type: O Room/Bed: / Admit/Disch: 05/11/24 07:10:51 - Institution: Case Times FT Entry 1 Patient Times In Room 05/11/24 08:30:00 Out Room 05/11/24 09:08:00 Procedure Times Start 05/11/24 08:35:00 Stop 05/11/24 09:04:00 Anesthesia Times Start 05/11/24 08:30:00 Stop 05/11/24 09:08:00 Time at [facility] 05/11/24 08:49:00 Last Modified By: Penelope SADLER, Becky 05/11/24 09:08:08 General Comments: 0840-EGD completed/AW RN 0844-Colonoscopy started/AW RN 05/11/2024 Chart opened for charge review per Alice Davis RN. [place] Case Attendance FT Entry 1 Entry 2 Entry 3 Case Attendee Geovani HEATH, Gonzalo Negrete RN, Sheldon Martines Role Performed Anesthesiologist [employer] Lead Teacher - Primary Scrub - Primary Obstetrics Gynecology Md Time In 05/11/24 08:30:00 05/11/24 08:30:00 05/11/24 08:30:00 Time Out 05/11/24 09:08:00 05/11/24 09:08:00 05/11/24 09:08:00 Procedure EGD AND COLONOSCOPY(.) EGD AND COLONOSCOPY(.) EGD AND COLONOSCOPY(.) Comments Dr. Tay supervising Last Modified By: Penelope RN, Becky Negrete RN, Becky Negrete RN, Becky 05/11/24 09:08:58 05/11/24 09:08:58 05/11/24 09:08:58 Entry 4 Entry 5 Case Attendee Ty SMITH, Kimberly Sutton MD, González Cadena Role Performed Staff - Other Surgeon - Primary Time In 05/11/24 08:45:00 05/11/24 08:30:00 Time Out 05/11/24 09:08:00 05/11/24 09:08:00 Procedure EGD AND COLONOSCOPY(.) EGD AND COLONOSCOPY(.) Comments help in room Last Modified By: Penelope RN, Becky Negrete RN, Becky 05/11/24 09:08:58 05/11/24 [...] No Time Out Gonzalo Muhammad, Given Participants Becky Negrete RN, Sparks, Micala E, Lesley ROMERO, González Cadena Time Out Complete 05/11/24 08:32:00 [...] colon polypectomy Primary Procedure Yes Primary Surgeon Lesley ROMERO, González Cadena Start 05/11/24 08:35:00 Stop 05/11/24 09:04:00 Anesthesia [...] and tissue Entry 1 Skin Integrity Intact, Rough And Ready, Warm, & Skin Abnormality No Dry Outcomes Met? Yes Last Modified By: Becky Negrete RN 05/11/24 09:06:34 Post-Care Text: The patient is free from signs and sym (more content not included)... Normal [facility] Main OR PACU II Recordon Main OR PACU II Record Main OR PACU II Record PACU Phase II Document Type FT Summary Primary Physician: González Sutton MD Finalized Date/Time: 05/11/24 10:02:45 Pt. Name: TATE ENCARNACION /Sex: 1970 Male Med Rec #: [id number] Physician: Alejandra Hayden MD Financial #: [id number] Pt. Type: O Room/Bed: / Admit/Disch: 05/11/24 [...] Signed By: Mariama Benoit RN 05/11/24 10:02 Normal [facility] Main OR Preoperative Recordo n 05-11-2024 Main OR Preoperative Record Main OR Preoperative Record Holding Area Document Type FT Summary Primary Physician: González Sutton MD Finalized Date/Time: 05/11/24 07:18:36 Pt. Name: SHASHANKTATE/Sex: 1970 Male Med Rec #: [id number] Physician: Alejandra Hayden MD Financial #: [id number] Pt. 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 This Is Your Medications List tadalafil (tadalafil [...] Appointments Tuesday 8:15 AM EST With: Where: [facility] Tuesday 9:00 AM EST With: Lesley ROMERO, González Cadena Where: [facility] [address] [address]- Tuesday 9:45 AM EDT With: Ji SIMON MD Where: [facility] [address] [place] [address]- You Need to Schedule the Following Appointments Follow Up with Ji SIMON MD, URL When: Comments: 4 mos w/ PSA and T level Where: [facility] [address], [facility] [phone] Medications What How Much When Why Instructions New tadalafil (tadalafil 20 mg Tab) 1 Tablets By Mouth As Directed as needed for for erectile dysfunction Pt to take one tab 1 hour prior to sexual activity. Do not exceed 20mg in 24 hours. Pickup at [facility] New testosterone (AndroGel Pump 20.25 mg/ 1.25 g (1.62%) transdermal gel) 2 Pump Topical Once a day (in the morning) Refills: 3 Pickup at [facility] Unchanged cholecalciferol (Vitamin D3 50 mcg [...] physician if questions or concerns Pharmacy Information [facility]: [address] [place] [phone] Allergies No Known Allergies No Known Medication [...] gives men (more content not included)... Normal [facility] Urology Office/Clinic Noteon 05-07-2024 Urology Office/Clinic Note [...] buried peni (more content not included)... Normal [facility] Comment on above: Result Comment: Elec tronically Signed By: Ji SIMON MD\.br\Date and Time Signed: 05/07/24 10:05 EST\.br\Electronically Co-Signed By: Nirmala Lama.br\Date and Time Co-Signed: 05/07/24 09:58 EST Calprotectin, Fecalon 2024 Calprotectin (Stl) [Mass/Mass] 15 mcg/gm Invalid Interpretation Code 0-120 [facility] Comment on above: Result Comment: Conc entration Interpretation Follow-Up < 5 - 50 ug/g Normal None >50 -120 ug/g Borderline Re-evaluate in 4-6 weeks >120 ug/g Abnormal Repeat as clinically indicated Performed at: [facility] [id number] MD Alfredo Green Performed By: #### 1 [id number] #### [facility] [address] [place] [address] Pancreatic Elastase, Fecalon 04-28-2024 Elastase.pancreatic (Stl) [Mass/Mass] 9 Low >200 [facility] Comment on above: Result Comment: Nicole re Pancreatic Insufficiency: <100 Moderate Pancreatic Insufficiency: 100 - 200 Normal: >200 Performed at: [facility] [id number] MD Alfredo Green Performed By: #### 1 [id number] ####[facility] [address] [place] [address] US Abdomen, Limitedon 2024 US Abdomen, Limited [...] Rooney MD Transcribed by: MARIA C Technologist: DEONNA, Normal [facility] Celiac Disease Comprehensive on 04-25-2024 Endomysium IgA Ql (S) Negative Invalid Interpretation Code Negative [facility] Comment on above: Result Comment: Seru m is slightly lipemic. Performed By: #### 1 [id number] #### [facility] [address] [place] [address] Gliadin peptide IgA Qn (S) 4 unit(s) Invalid Interpretation Code 0-19 [facility] Comment on above: Result Comment: Nega tive 0 - 19 Weak Positive 20 - 30 Moderate to Strong Positive >30 Performed By: #### 1 [id number] #### [facility] [address] [place] [address] Gliadin peptide IgG Qn (S) 2 unit(s) Invalid Interpretation Code 0-19 [facility] Comment on above: Result Comment: Nega tive 0 - 19 Weak Positive 20 - 30 Moderate to Strong Positive >30 Performed By: #### 1 [id number] #### [facility] [address] [place] [address] IgA [Mass/Vol] 213 mg/dL Invalid Interpretation Code 90-386 [facility] Comment on above: Result Comment: Perf ormed at: [facility] [address] [id number] PhD Franklin Pollard Performed By: #### 1 [id number] #### [facility] [address] [place] [address] tTG IgA Qn (S) <2 Invalid Interpretation Code 0-3 [facility] Comment on above: Result Comment: Nega tive 0 - 3 Weak Positive 4 - 10 Positive >10 Tissue Transglutaminase (tTG) has been identified as the endomysial antigen. Studies have demonstr- ated that endomysial IgA antibodies have over 99% specificity for gluten sensitive enteropathy. Performed By: #### 1 [id number] #### [facility] [address] [place] [address] tTG IgG Qn (S) <2 Invalid Interpretation Code 0-5 [facility] Comment on above: Result Comment: Nega tive 0 - 5 Weak Positive 6 - 9 Positive >9 Performed By: #### 1 [id number] #### [facility] [address] [place] [address] Testost Totalon 04-25-2024 Testosterone [Mass/Vol] 194 ng/dL Low 264-916 [facility] Comment on above: Result Comment: Adul t male reference interval is based on a population of healthy nonobese males (BMI <30) between 19 and 39 years old. Mildred, et.al. JCEM 2017,102;8934-9300. PMID: [id number]. Performed at: [facility] [id number] PhD Franklin Pollard Performed By: #### 2 [id number] #### [facility] [address] [place] [address] Ambulatory Visit Summaryon 0 04-24-2024 Ambulatory Visit Summary Ambulatory Visit Summary TATE ENCARNACION :1970 Visit Date:04/24/2024 Ambulatory Visit Instructions Your Diagnosis Irritable bowel syndrome with diarrhea Bloating Black stool Chronic GERD Decreased sexual desire Alcohol drinker Stress-related physiological response affecting medical condition High triglycerides Obesity due to excess calories Your Care Team Attending Physician - Alejandra Hayden MD Primary Care Physician - KIRA GARRISON CNP This Is Your Medications List [...] AM EST With: Alejandra Hayden MD Where: [facility] [address] [facility] [address] [address]- You Need to Complete the Following C-Reactive [...] Black stool Chronic GERD Decreased sexual desire, pp_set_radiology_subspe Christian lindo - Joshua Medications What How Much When Why Instructions New cholestyramine (Questran 4 g/ 9 g oral powder) 1 Packets By Mouth 2 times a day Irritable bowel syndrome with diarrhea Bloating Black stool Chronic GERD Pickup at [facility] Unchanged cholecalciferol (Vitamin D3 50 mcg [...] physician if questions or concerns Pharmacy Information [facility]: [address] [place] [phone] Medications and Immunizations Administered Not Given influenza [...] for choosing us for your care. Normal [facility] CHEMISTRYOrdered By: SYSTEM SYSTEM on 04-24-2024 CRP [Mass/Vol] 0.2 mg/dL Normal <=1.9mg/dL Remisol Chem CRPon 04-24-2024 CRP [Mass/Vol] 0.2 mg/dL Normal <=1.9 [facility] Comment on above: Performed By: #### 2 [id number] #### [facility] [address] [place] [address] Gastroenterology Office/Clin ic Noteon 04-24-2024 Gastroenterology Office/Clinic [...] BID, # 60 EA, Refills(s) 0, Pharmacy: [facility], 170, cm, 04/24/24 8:57:00 EST, Height/Length Dosing, 108.6, kg, 04/24/24 8:57:00 EST, Weight Dosing C-Reactive Protein Calprotectin, Fecal Celiac Disease Comprehensive Colonoscopy (Hospital Procedure) EGD Endoscopy (Hospital Procedure) IgA, Quant. Pancreatic Elastase, Fecal Pancreatic Elastase, Fecal Testosterone Level Total US Abdomen, Limited 2. Bloating (R14.0: Abdominal distension (gaseous)) Ordered: cholestyramine, = 1 packet(s), Oral, BID, # 60 EA, Refills(s) 0, Pharmacy: [facility], 170, cm, 04/24/24 8:57:00 EST, Height/Length Dosing, 108.6, kg, 04/24/24 8:57:00 EST, Weight Dosing C-Reactive Protein Calprotectin, Fecal Celiac Disease Comprehensive Colonoscopy (Hospital Procedure) EGD Endoscopy (Hospital Procedure) IgA, Quant. Pancreatic Elastase, Fecal Pancreatic Elastase, Fecal Testosterone Level Total US Abdomen, Limited 3. Black stool (K92.1: Melena) Ordered: cholestyramine, = 1 packet(s), Oral, BID, # 60 EA, Refills(s) 0, Pharmacy: [facility], 170, cm, 04/24/24 8:57:00 EST, Height/Length [...] BID, # 60 EA, Refills(s) 0, Pharmacy: [facility], 170, cm, 04/24/24 8:57:00 EST, Height/Length Dosing, 108.6, kg, 04/24/24 8:57:00 EST, Weight Dosing C-Reactive Protein Calprotectin, Fecal Celiac Disease Comprehensive Colonoscopy (Hospital Procedure) EGD Endoscopy (Hospital Procedure) IgA, Quant. Pancreatic Elastase, Fecal Pancreatic Elastase, Fecal Testosterone Level Total US Abdomen, Limited 5. Decreased sexual desire (F52.0: Hypoactive sexual desire disorder) Ordered: [facility] Ambulatory Referral Pancreatic Elastase, Fecal Testosterone Level Total US Abdomen, Limited 6. Alcohol drinker (Z78.9: Other specified health status) 7. Stress-related physiological response affecting medical condition (F54: Psychological and behavioral factors associated with disorders or diseases classified elsewhere) 8. High triglycerides (E78.1: Pure hyperglyceridemia) 9. Obesity due to excess calories (E66.09: Ot (more content not included)... Normal [facility] Comment on above: Result Comment: Elec tronically Signed By: Jackelyn ROMERO, Alejandra Kelly\.br\Date and Time Signed: 04/24/24 09:30 EST FREE T3on 03-15-2018 T3 free mass conc 3.10 pg/mL Normal 2.77-5.27 [facility] Comment on above: Performed By: #### B MP, LIVER, FT3, LIPID, PSASC, TSH, DLDL ####[facility] Ribittadxd4[address] [place] FREE T4on 03-15-2018 T4 free mass conc 0.88 ng/dL Normal 0.78-2.19 [facility] Comment on above: Performed By: #### B MP, LIVER, FT3, LIPID, PSASC, TSH, DLDL ####[facility] Gkbuk[address]md[address] [place] TSHon 03-15-2018 Thyrotropin Qn 7.705 uIU/mL Critically high 0.470-4.680 Th e [facility] Comment on above: Performed By: #### B MP, LIVER, FT3, LIPID, PSASC, TSH, DLDL ####[facility] Xzefvgzmyp9[address] [place] Thyrotropin Qn SEE BELOW Normal The [facility] Comment on above: Result Comment: <0.3 4 UIU/ml HYPERTHYROID 0.34-5.60 UIU/ml EUTHYROID >5.60 UIU/ml HYPOTHYROID Performed By: #### B MP, LIVER, FT3, LIPID, PSASC, TSH, DLDL ####[facility] Hvykocdsre[address] [place] TESTOSTERONE, TOTALon 2017 Testosterone [Mass/volume] in Serum or Plasma 314 ng/dL Normal 264-916 The [facility] Comment on above: Result Comment: Adul t male reference interval is based on a population ofhealthy nonobese males (BMI <30) between 19 and 39 years old.Mildred, et.al. JCEM 2017,102;6917-8047. PMID: [id number]. Performed By: #### B MP, LIVER, FT3, LIPID, PSASC, TSH, DLDL ####[facility] Cwcubaidhi7204 [address] [place] FREE T3on 01-02-2018 T3 free mass conc 2.98 pg/mL Normal 2.77-5.27 The [facility] Comment on above: Performed By: #### B MP, LIVER, FT3, LIPID, PSASC, TSH, DLDL ####[facility] Yerbsygoux[address] [place] FREE T4on 01-02-2018 T4 free mass conc 0.89 ng/dL Normal 0.78-2.19 The [facility] Comment on above: Performed By: #### B MP, LIVER, FT3, LIPID, PSASC, TSH, DLDL ####[facility] Tuiypytkmp4039 [address] [place] TSHon 01-02-2018 Thyrotropin Qn 5.999 uIU/mL Critically high 0.470-4.680 Th e [facility] Comment on above: Performed By: #### B MP, LIVER, FT3, LIPID, PSASC, TSH, DLDL ####[facility] [address] [place] [address] [place] Thyrotropin Qn SEE BELOW Normal The [facility] Comment on above: Result Comment: <0.3 4 UIU/ml HYPERTHYROID 0.34-5.60 UIU/ml EUTHYROID >5.60 UIU/ml HYPOTHYROID Performed By: #### B MP, LIVER, FT3, LIPID, PSASC, TSH, DLDL ####[facility] [address] [place] [address] [place] CBC AUTO DIFFon 09-14-2017 Basophils Auto #/vol (Bld) 0.1 103/ul Normal 0.0-0.1 [facility] Comment on above: Performed By: #### C BC ####[facility] [address] [place] [address] [place] Basophils/100 WBC Auto (Bld) 0.8 % Normal 0.2-2.0 The [facility] Comment on above: Performed By: #### C BC ####[facility] [address] [place] [address] [place] Eosinophils Auto #/vol (Bld) 0.1 103/ul Normal 0.0-0.7 The [facility] Comment on above: Performed By: #### C BC ####[facility] [address] [place] [id number] [place] Eosinophils/100 WBC Auto (Bld) 1.4 % Normal 0.9-7.0 [facility] Comment on above: Performed By: #### C BC ####[facility] [address] [place], [place] [id number] [place] Erythrocyte distribution width Auto Ratio (RBC) 13.2 % Normal 11.0-15.0 [facility] Comment on above: Performed By: #### C BC ####[facility] [address] [place], [place] [id number] [place] Hematocrit Auto Volume Fraction (Bld) 43.7 % Normal 42.0-54.0 [facility] Comment on above: Performed By: #### C BC ####[facility] [address] [place], [place] [address] [place] Hemoglobin mass conc (Bld) 15.2 g/dL Normal 14.0-18.0 The [facility] Comment on above: Performed By: #### C BC ####[facility] [address] [place], [place] [id number] [place] IG # 0.05 10e3/ul Critically high 0.00-0.03 [facility] Comment on above: Performed By: #### C BC ####[facility] [address] [place] [address] [place] IG % 0.7 % Critically high 0.0-0.5 The [facility] Comment on above: Performed By: #### C BC ####[facility] [address] [place], [place] [id number] [place] Lymphocytes Auto #/vol (Bld) 1.7 103/ul Normal 1.2-3.8 The [facility] Comment on above: Performed By: #### C BC ####[facility] [address] [place], [place] [id number] [place] Lymphocytes/100 WBC Auto (Bld) 23.7 % Normal 20.5-60.0 The [facility] Comment on above: Performed By: #### C BC ####[facility] [address] [place], [place] [id number] [place] MANUAL DIFF REQ NO Normal The [facility] Comment on above: Performed By: #### C BC ####[facility] [address] [place], [place] [id number] [place] MCH Auto Entitic mass (RBC) 33.8 pg Normal 25.9-34.0 The [facility] Comment on above: Performed By: #### C BC ####[facility] [address] [place], [place] [id number] [place] MCHC Auto mass conc (RBC) 34.8 g/dL Normal 29.9-35.2 The [facility] Comment on above: Performed By: #### C BC ####[facility] [address] [place], [place] [address] [place] MCV Auto Entitic volume (RBC) 97.1 fL Critically high 80.0-94.0 [facility] Comment on above: Performed By: #### C BC ####[facility] [address] [place], [place] [address] [place] Monocytes Auto #/vol (Bld) 0.5 103/ul Normal 0.3-0.8 [facility] Comment on above: Performed By: #### C BC ####[facility] [address] [place], [place] [address]ken [place] Monocytes/100 WBC Auto (Bld) 7.0 % Normal 1.7-12.0 The [facility] Comment on above: Performed By: #### C BC ####[facility] [address] [place], [place] [address] Neutrophils Auto #/vol (Bld) 4.7 103/ul Normal 1.4-6.5 The [facility] Comment on above: Performed By: #### C BC ####[facility] [address] [place], [place] [id number] Neutrophils/100 WBC Auto (Bld) 66.4 % Normal 43.0-75.0 The [facility] Comment on above: Performed By: #### C BC ####[facility] [address] [place], [place] [address]Jyfozx Karen Platelet mean volume Auto Entitic volume (Bld) 10.7 fL Normal 9.5-13.5 The [facility] Comment on above: Performed By: #### C BC ####[facility] [address] [place] [id number] Platelets Auto #/vol (Bld) 223 103/ul Normal 150-450 The [facility] Comment on above: Performed By: #### C BC ####[facility] X[address] [place] RBC Auto #/vol (Bld) 4.50 106/ul Critically low 4.70-6.10 The [facility] Comment on above: Performed By: #### C BC ####[facility] [address] [place] [address] [place] WBC Auto #/vol (Bld) 7.1 103/ul Normal 4.0-11.0 The [facility] Comment on above: Performed By: #### C BC ####[facility] [address] [place], [place] [id number] [place] DIRECT LDLon 09-14-2017 Cholesterol in LDL mass conc SEE BELOW Normal The [facility] Comment on above: Result Comment: <100 mg/dl OPTIMAL 100 - 129 mg/dl NEAR OR ABOVE OPTIMAL 130 - 159 mg/dl BORDERLINE HIGH 160 - 189 mg/dl HIGH >190 mg/dl VERY HIGH Performed By: #### B MP, LIVER, FT3, LIPID, PSASC, TSH, DLDL ####[facility] [address] [place], [place] [address]Hljams [place] Cholesterol in LDL mass conc 45 mg/dL Normal The [facility] Comment on above: Performed By: #### B MP, LIVER, FT3, LIPID, PSASC, TSH, DLDL ####[facility] [address] [place], [place] [address]Fudqmy [place] FREE T3on 09-14-2017 T3 free mass conc 4.33 pg/mL Normal 2.77-5.27 The [facility] Comment on above: Performed By: #### B MP, LIVER, FT3, LIPID, PSASC, TSH, DLDL ####[facility] V[address]uj[address]rd[address] [place] FREE T4on 09-14-2017 T4 free mass conc 0.67 ng/dL Critically low 0.78-2.19 The [facility] Comment on above: Performed By: #### F T4 ####[facility] [address] [place] [address] [place] GLYCOHEMOGLOBIN A1Con 2017 Glucose mass conc 108 mg/dL Normal [facility] Comment on above: Performed By: #### A 1C ####[facility] [address] [place] [address] [place] Hemoglobin A1c/Hemoglobin.total mass fraction (Bld) 5.4 % Normal <=6.0 [facility] Comment on above: Performed By: #### A 1C ####[facility] [address] [place] [address] [place] LIPID PROFILEon 09-14-2017 CHOL-HDL RATIO NORM SEE BELOW Normal [facility] Comment on above: Result Comment: 3.3 - 4.4 LOW RISK 4.4 - 7.1 AVERAGE RISK 7.1 - 11.0 MODERATE RISK >11.0 HIGH RISK Performed By: #### B MP, LIVER, FT3, LIPID, PSASC, TSH, DLDL ####[facility] [address] [place] [address] [place] Cholesterol in HDL mass conc 34 mg/dL Normal The [facility] Comment on above: Result Comment: A po sitive bias may be seen with a triglyceride level over 600 mg/dL Performed By: #### B MP, LIVER, FT3, LIPID, PSASC, TSH, DLDL ####[facility] M[address] [place] Cholesterol in HDL mass conc > or = 60 mg/dl - LOW CARDIOVASCULAR RISK <40 mg/dl - HIGH CARDIOVASCULAR RISK Normal The [facility] Comment on above: Performed By: #### B MP, LIVER, FT3, LIPID, PSASC, TSH, DLDL ####[facility] Fmhrucehui[address]42 [address] [place] Cholesterol mass conc 199 mg/dL Normal <=200 The [facility] Comment on above: Performed By: #### B MP, LIVER, FT3, LIPID, PSASC, TSH, DLDL ####[facility] Xqxyelrcnv[address] [place] Cholesterol.total/Ch olesterol in HDL mass ratio 6.0 {ratio} Normal The [facility] Comment on above: Performed By: #### B MP, LIVER, FT3, LIPID, PSASC, TSH, DLDL ####[facility] F[address] [place] Triglyceride mass conc 1177 mg/dL Critically high <=150 The [facility] Comment on above: Performed By: #### B MP, LIVER, FT3, LIPID, PSASC, TSH, DLDL ####[facility] Ptsvtcwkht[address] [place] LIVER PROFILEon 09-14-2017 Albumin mass conc 4.6 g/dL Normal 3.5-5.0 [facility] Comment on above: Performed By: #### B MP, LIVER, FT3, LIPID, PSASC, TSH, DLDL ####[facility] Wpwztbwkbn[address] [place] Albumin/Globulin mass ratio 1.5 {ratio} Normal The [facility] Comment on above: Performed By: #### B MP, LIVER, FT3, LIPID, PSASC, TSH, DLDL ####[facility] Uaoovakepy[address] [place] ALP enzyme act/vol 66 U/L Normal 38-126 The [facility] Comment on above: Performed By: #### B MP, LIVER, FT3, LIPID, PSASC, TSH, DLDL ####[facility] Stvwzfbpvx[address] [place] ALT enzyme act/vol 66 U/L Normal 21-72 The [facility] Comment on above: Performed By: #### B MP, LIVER, FT3, LIPID, PSASC, TSH, DLDL ####[facility] Inwterfaye[address] [place] AST enzyme act/vol 48 U/L Normal 17-59 The [facility] Comment on above: Performed By: #### B MP, LIVER, FT3, LIPID, PSASC, TSH, DLDL ####[facility] [id number] [place] BILI, CONJUGATED 0.0 mg/dL Normal 0.0-0.3 The [facility] Comment on above: Performed By: #### B MP, LIVER, FT3, LIPID, PSASC, TSH, DLDL ####[facility] [id number] [address] [place] Bilirubin Ql (U) 0.3 mg/dL Normal 0.2-1.3 The [facility] Comment on above: Performed By: #### B MP, LIVER, FT3, LIPID, PSASC, TSH, DLDL ####[facility] Lmqqpkwzxo9823 [address] [place] Globulin Calculated mass conc (S) 3.1 g/dL Normal The [facility] Comment on above: Performed By: #### B MP, LIVER, FT3, LIPID, PSASC, TSH, DLDL ####[facility] Geynplosqv1355 [address] [place] Protein mass conc 7.7 g/dL Normal 6.1-8.2 The [facility] Comment on above: Performed By: #### B MP, LIVER, FT3, LIPID, PSASC, TSH, DLDL ####[facility] [id number] [address] [place] PROF CHEM 8 (BAS METB)on Anion gap 3 molar conc 10.0 mmol/L Normal The [facility] Comment on above: Performed By: #### B MP, LIVER, FT3, LIPID, PSASC, TSH, DLDL ####[facility] Efwbpenvax3238 [address] [place] Calcium mass conc 9.6 mg/dL Normal 8.4-10.2 The [facility] Comment on above: Performed By: #### B MP, LIVER, FT3, LIPID, PSASC, TSH, DLDL ####[facility] Fxiinlscby4048 [address] [place] Chloride molar conc 104 mmol/L Normal 98-107 The [facility] Comment on above: Performed By: #### B MP, LIVER, FT3, LIPID, PSASC, TSH, DLDL ####[facility] Dlzyeokduo3943 [address] [place] CO2 molar conc 25.0 mmol/L Normal 22.0-30.0 The [facility] Comment on above: Performed By: #### B MP, LIVER, FT3, LIPID, PSASC, TSH, DLDL ####[facility] Qnekbfrmpg1197 [address] [place] Creatinine mass conc 0.96 mg/dL Normal 0.66-1.25 The [facility] Comment on above: Performed By: #### B MP, LIVER, FT3, LIPID, PSASC, TSH, DLDL ####[facility] Klxivytnwt2356 [address] EGFR-AF BRITISH >60 Normal >=60 The [facility] Comment on above: Performed By: #### B MP, LIVER, FT3, LIPID, PSASC, TSH, DLDL ####[facility] Jwzkjleztj8159 [address] [place] EGFR-NON AF BRITISH >60 Normal >=60 The [facility] Comment on above: Performed By: #### B MP, LIVER, FT3, LIPID, PSASC, TSH, DLDL ####[facility] Huycyusece6052 [address] [place] Glucose mass conc 97 mg/dL Normal 74-106 The [facility] Comment on above: Performed By: #### B MP, LIVER, FT3, LIPID, PSASC, TSH, DLDL ####[facility] Dlurvhzuxr3834 [address] [place] Potassium molar conc 4.2 mmol/L Normal 3.4-5.0 [facility] Comment on above: Performed By: #### B MP, LIVER, FT3, LIPID, PSASC, TSH, DLDL ####[facility] Ebgquhhjdi6600 [address] [place] Sodium molar conc 135 mmol/L Critically low 137-145 The [facility] Comment on above: Performed By: #### B MP, LIVER, FT3, LIPID, PSASC, TSH, DLDL ####[facility] Vutcdoboxo2555 [address] [place] Urea nitrogen mass conc 14.0 mg/dL Normal 9.0-20.0 [facility] Comment on above: Performed By: #### B MP, LIVER, FT3, LIPID, PSASC, TSH, DLDL ####[facility] Pdjqavfjib9328 [address] [place] Urea nitrogen/Creatinine mass ratio 14.8 mg/mg Normal [facility] Comment on above: Performed By: #### B MP, LIVER, FT3, LIPID, PSASC, TSH, DLDL ####[facility] Ljjutcikor9357 [address] [place] TSHon 09-14-2017 Thyrotropin Qn SEE BELOW Normal The [facility] Comment on above: Result Comment: <0.3 4 UIU/ml HYPERTHYROID 0.34-5.60 UIU/ml EUTHYROID >5.60 UIU/ml HYPOTHYROID Performed By: #### B MP, LIVER, FT3, LIPID, PSASC, TSH, DLDL ####[facility] Gpgcwfzmoh2065 [address] [place] Thyrotropin Qn 6.140 uIU/mL Critically high 0.470-4.680 Th e [facility] Comment on above: Performed By: #### B MP, LIVER, FT3, LIPID, PSASC, TSH, DLDL ####[facility] Lenmcshkkp4067 [address] [place] Vital Signs Date Time Vital Sign Value Performing Clinician Faci lity 05-21-2024 09:10-0500 Diastolic blood pressure 80 mm[Hg] Claudio Sarmini [facility] 05-21-2024 09:10-0500 Heart rate 66 /min Claudio Sarmini [facility] 05-21-2024 09:10-0500 Systolic blood pressure 138 mm[Hg] Claudio Sarmini [facility] 05-21-2024 09:08-0500 Blood Pressure Location Claudio Sarmini [facility] 05-21-2024 09:08-0500 Respiratory rate 14 /min Claudio Sarmini [facility] 05-17-2024 08:22-0500 Body height 165.1 cm Christopher Jasmin DO Work Phone: [facility] 05-17-2024 08:22-0500 Body mass index (BMI) [Ratio] 39.61 kg/m2 Christopher Jasmin DO Work Phone: [facility] 05-17-2024 08:22-0500 Body weight 107.96 kg Christopher Jasmin DO Work Phone: [facility] 05-17-2024 08:22-0500 Diastolic blood pressure 88 mm[Hg] Christopher Jasmin DO Work Phone: [facility] 05-17-2024 08:22-0500 Heart rate 74 /min Christopher Jasmin DO Work Phone: [facility] 05-17-2024 08:22-0500 Systolic blood pressure 138 mm[Hg] Christopher Jasmin DO Work Phone: [facility] 05-11-2024 09:40-0500 Diastolic blood pressure 77 mm[Hg] Alejandra Cortesli [facility] 05-11-2024 09:40-0500 Heart rate 61 /min Mohamad Mouchli [facility] 05-11-2024 09:40-0500 Respiratory rate 13 /min Mohamad Mouchli [facility] 05-11-2024 09:40-0500 SaO2% (BldA) [Mass fraction] 94 % Mohamad Mouchli [facility] 05-11-2024 09:40-0500 Systolic blood pressure 140 mm[Hg] Mohamad Mouchli [facility] 05-11-2024 09:20-0500 Diastolic blood pressure 83 mm[Hg] Mohamad Mouchli [facility] 05-11-2024 09:20-0500 Heart rate 89 /min Mohamad Mouchli [facility] 05-11-2024 09:20-0500 Respiratory rate 22 /min Mohamad Mouchli [facility] 05-11-2024 09:20-0500 SaO2% (BldA) [Mass fraction] 94 % Mohamad Mouchli [facility] 05-11-2024 09:20-0500 Systolic blood pressure 145 mm[Hg] Mohamad Mouchli [facility] 05-11-2024 09:15-0500 Diastolic blood pressure 79 mm[Hg] Mohamad Mouchli [facility] 05-11-2024 09:15-0500 Heart rate 90 /min Mohamad Mouchli [facility] 05-11-2024 09:15-0500 Respiratory rate 13 /min Mohamad Mouchli [facility] 05-11-2024 09:15-0500 SaO2% (BldA) [Mass fraction] 98 % Mohamad Mouchli [facility] 05-11-2024 09:15-0500 Systolic blood pressure 126 mm[Hg] Mohamad Mouchli [facility] 05-11-2024 09:10-0500 Body temperature 98.42 [degF] Mohamad Mouchli [facility] 05-11-2024 09:05-0500 Respiratory rate 14 /min Mohamad Mouchli [facility] 05-11-2024 08:55-0500 Respiratory rate 22 /min Mohamad Mouchli [facility] 05-11-2024 07:28-0500 Blood Pressure Location Mohamad Mouchli [facility] 05-11-2024 07:28-0500 Body temperature 97.88 [degF] Mohamad Mouchli [facility] 05-07-2024 09:34-0500 Diastolic blood pressure 82 mm[Hg] Ji SIMON [facility] 05-07-2024 09:34-0500 Mean blood pressure 109 mm[Hg] Ji SIMON [facility] 05-07-2024 09:34-0500 Systolic blood pressure 164 mm[Hg] Ji SIMON [facility] 05-07-2024 09:11-0500 Diastolic blood pressure 86 mm[Hg] Ji SIMON [facility] 05-07-2024 09:11-0500 Heart rate 74 /min Ji SIMON [facility] 05-07-2024 09:11-0500 Respiratory rate 16 /min Ji SIMON [facility] 05-07-2024 09:11-0500 Systolic blood pressure 168 mm[Hg] Ji SIMON [facility] 04-24-2024 08:57-0500 Blood Pressure Location Synthorxtianamariya Hayden [facility] 04-24-2024 08:57-0500 Diastolic blood pressure 80 mm[Hg] Ritad Mouchli [facility] 04-24-2024 08:57-0500 Heart rate 71 /min Alejandra Cortesli [facility] 04-24-2024 08:57-0500 Systolic blood pressure 125 mm[Hg] Teenatianad Celestineuchli [facility] Encounters Encounter Date Encounter Type Care Provider Facility Start: 05-25-2024 End: 05-25-2024 Bamboo flowsgay Lemus OT Work Phone: [facility] Start: 05-25-2024 End: 05-25-2024 Bamboo flowsheet Jazlyn Lemus OT Work Phone: [facility] Start: 05-25-2024 End: 05-25-2024 ambulatory Jazlyn Lemus OT Work Phone: [facility] Comment on above: Joint stiffness of h and, right (Primary Dx); Swelling of right hand Start: 05-22-2024 End: 05-22-2024 Bamboo flowsgay Lemus OT Work Phone: [facility] Start: 05-22-2024 End: 05-22-2024 Bamboo flowsheet Jazlyn Lemus OT Work Phone: [facility] Start: 05-22-2024 End: 05-22-2024 ambulatory Jazlyn Lemus OT Work Phone: [facility] Comment on above: Joint stiffness of h and, right (Primary Dx); Swelling of right hand Start: 05-21-2024 End: 05-21-2024 ambulatory Claudio Talal Sarmini Facility:[facility] Start: 05-21-2024 End: 05-21-2024 [facility] Start: 05-18-2024 End: 05-18-2024 ambulatory Jazlyn Lemus OT Work Phone: [facility] Comment on above: Joint stiffness of h and, right (Primary Dx); Swelling of right hand Start: 05-17-2024 End: 05-17-2024 Bamboo flowsheet Sandra Castellanos DO Work Phone: [facility] Start: 05-17-2024 End: 05-17-2024 Bamboo flowsheet Sandra Castellanos DO Work Phone: [facility] Start: 05-17-2024 End: 05-17-2024 ambulatory SANDRA CASTELLANOS Not Available Start: 05-17-2024 End: 05-17-2024 Office outpatient new 30 minutes Sandra Castellanos DO Work Phone: [facility] Comment on above: Neuralgia (Primary D x) Start: 05-15-2024 End: 05-15-2024 Bamboo flowsheet Jazlyn Lemus OT Work Phone: [facility] Start: 05-15-2024 End: 05-15-2024 Bamboo flowsheet Jazlyn Lemus OT Work Phone: [facility] Start: 05-15-2024 End: 05-15-2024 ambulatory Jazlyn Lemus OT Work Phone: [facility] Comment on above: Swelling of right bonds nd (Primary Dx); Joint stiffness of hand, right Start: 05-11-2024 End: 05-11-2024 ambulatory Aleajndra Hayden Facility[facility] Start: 05-11-2024 End: 05-11-2024 Patient encounter procedure Alejandra Hayden [facility] Start: 05-07-2024 End: 05-07-2024 ambulatory Alejandra Hayden Facility:[facility] Start: 05-07-2024 End: 05-07-2024 Patient encounter procedure Ji SIMON [facility] Start: 04-27-2024 ambulatory Alejandra Hayden Facilit y:MELISSA Sevillaue Start: 04-26-2024 End: 04-26-2024 ambulatory Alejandra Hayden Facility:[facility] Start: 04-26-2024 End: 04-26-2024 Patient encounter procedure Alejandra Hayden [facility] Start: 04-25-2024 End: 04-25-2024 ambulatory Alejandra Hayden Facility:[facility] Start: 04-25-2024 End: 04-25-2024 Lab Drop off Alejandra Cortesli [facility] Start: 04-24-2024 End: 04-24-2024 ambulatory Alejandra Hayden Facility:[facility] Start: 04-24-2024 End: 04-24-2024 Patient encounter procedure Alejandra Hayden [facility] Start: 04-24-2024 End: 04-24-2024 ambulatory Alejandra Hayden Facility:[facility] Start: 04-24-2024 End: 04-24-2024 Patient encounter procedure Alejandra Hayden [facility] Start: 04-18-2024 ambulatory Alejandra Hayden Facilit y:Alejandro Start: 03-15-2018 End: 03-16-2018 Patient encounter procedure LUIS ANTONIO A NADERER Facility:[facility] Start: 01-02-2018 End: 01-03-2018 Patient encounter procedure LUIS ANTONIO A NADERER Facility:[facility] Start: 10-26-2017 End: 10-27-2017 Patient encounter procedure LUIS ANTONIO A NADERER Facility:[facility] Start: 09-27-2017 End: 09-28-2017 [facility] Start: 09-15-2017 Encounter for genera l adult medical examination without abnormal findings [facility] Start: 09-14-2017 End: 09-15-2017 Patient encounter procedure [facility] Encounter for genera l adult medical examination without abnormal findings [facility] Procedures Date Procedure Procedure Detail Performing Clinician Start: 05-11-2024 Colonoscopy Alejandra Hayden Comment on above: colon polyps x2, diverticulosis, Ih Start: 05-11-2024 Esophagogastroduodenoscopy Alejandra huynh Comment on above: esophagitis, gastritis, clean based ulce rs, biopsies for celiac disease Start: 09-14-2017 PSA screening LUIS ANTONIO HERNANDEZ Comment on above: Performed By: #### BMP, LIVER, FT3, LIPI D, PSASC, TSH, DLDL ####[facility] [address] [place], [place] [address] Plan of Treatment Date Care Activity Detail Author Start: 11-19-2024 End: 11-19-2024 Patient encounter procedure 11/19/2024 8:20 AM EDT Office Visit MARY MIDWAY [address] [place] [id number] Sofie Weller NP [address] [place] [id number] [facility] Start: 09-07-2024 ambulatory Ambulatory Facility:[facility] Start: 05-25-2024 End: 05-25-2024 ambulatory 05/25/2024 8:00 AM EST Treatment [facility] [address] [place] [address] Jazlyn Lemus, OT [address] [place] [address] [facility] Start: 05-22-2024 End: 05-22-2024 ambulatory 05/22/2024 8:00 AM EST Treatment [facility] [address] [place] [address] Jazlyn Lemus, OT [address] [place] [address] [facility] Start: 05-18-2024 End: 05-18-2024 ambulatory 05/18/2024 8:00 AM EST Treatment [facility] [address] [place] [address] Jazlyn Lemus, OT [address] [place] [address] [facility] Start: 05-17-2024 End: 05-17-2024 Patient encounter procedure 05/17/2024 8:00 AM EST Office Visit [facility]ARY PERALTA [address] [place] [phone] Sandra Castellanos DO [address] [place] [address] [facility] Start: 12-11-2023 Influenza vaccination Influenza Vacc ine (#1) [facility] Start: 1970 Screening for malign ant neoplasm of colon [facility] Immunizations Immunization Date Immunization Notes Care Provider Fa cility NEGATED: Highlighted row has not occurred!04-24-2024 influenza virus vaccine, unspecified formulation Alejandra Hayden [facility] Payers Date Payer Category Payer Medicaid (Managed Care) SANDOR TILLEYALAYNA [id number] 2024 Unknown [id number] 1970 Unknown [id number] [id number] .593 1970 Unknown [id number] 2.16.840.1.706765.3.579.2 .59 1970 Unknown [id number] 2.16.840.1.758358.3.579.2 .593 1970 Unknown [id number] 2.16.840.1.631983.3.579.2 .593 1970 Unknown [id number] 2.16.840.1.548144.3.579.2 .593 1970 Unknown [id number] 2.16.840.1.567629.3.579.2 .727 1970 Unknown [id number] 2.16.840.1.518914.3.579.2 .727 1970 Unknown [id number] 2.16.840.1.522134.3.579.2 .727 1970 Unknown [id number] 2.16.840.1.814995.3.579.2 .727 1970 Unknown [id number] 2.16.840.1.955948.3.579.2 .7 1970 Unknown [id number] 2.16.840.1.618504.3.579.2 .727 1970 Unknown [id number] 2.16.840.1.378651.3.579.2 .7 1970 Unknown [id number] 2.16.840.1.314661.3.579.2 .727 1970 Unknown [id number] 2.16.840.1.692192.3.579.2 .9 1970 Unknown [id number] 2.16.840.1.430427.3.579.2 .9 1970 Unknown [id number] 2.16.840.1.134105.3.579.2 .1258 1970 Unknown [id number] 2.16.840.1.782358.3.579.2 .9 1970 Unknown [id number] 2.16.840.1.961177.3.579.2 .1259 1959 Unknown [id number] Social History Date Type Detail Facility Start: 04-24-2024 End: 05-17-2024 Tobacco smoking status Never smoked tobacco (finding) [facility] Tobacco smoking status Smokeless tobacco user within last 30 days [facility] Start: 05-17-2024 Sex Assigned At Male [facility] Tobacco smoking stat NHIS Tobacco smoking consumption unknown [facility] Start: 1970 Sex assigned at Not on file [facility] Start: 05-17-2024 Tobacco use and exposure User of smokeless tobacco [facility] History of tobacco use Chews Tobacco [facility] Start: 05-17-2024 Alcoholic beverage intake Current drinker of alcohol (finding) [facility] Start: 05-17-2024 History of Social function [facility] Functional Status Date Assessment Result Facility 05-21-2024 Functional Status N/A [facility] 05-11-2024 Functional Status N/A [facility] 05-07-2024 Functional Status N/A [facility] 04-24-2024 Functional Status N/A [facility] Clinical Notes 05-07-2024 to 05-25-2024 Jazlyn Lemus, OT - 05/25/2024 8:00 AM Mihir Lemus, OT - 05/22/2024 8:00 AM Mihir Lemus, OT - 05/18/2024 8:00 AM ESTChriswilliam Castellanos, DO - 05/17/2024 8:00 AM EST Note Date & Type Note Facility 05-25-2024 History of Presen t illness Narrative Occupational Therapy Occupational Therapy Treatment Visit Patient Name: Tate Encarnacion Today's Date: 05/25/2024 Linked Episodes Type: Episode: Status: Noted: Resolved: Last update: Updated by: Occupational Therapy R hand swelling Active 05/15/2024 05/25/2024 8:02 AM Jazlyn Lemus OT Comments: Visit number: 07/17 Timed Code Treatment minutes: 60 Total Treatment Time: 60 Subjective Pain: 05/21. 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 It just wasn't working properly. I am going to go back to my doctor and see what he wants to do. It has been too long dealing with this Overall progress:improving Objective: 40' MT for STM/ DTM of the R hand and wrist for edema management. PROM complete to R wrist, thumb, and all digits in all planes 1x15 with fair toleration. Composite dentofacial orthopedics dentist holds x2 minutes. Contract release exercsies 1x15. US complete to entire hand to asssit with edema/ stiffness reported 1.2 mgz 50% x5 minutes. 20' JOLANTA with 10' supervised JOLANTA in Fluido for tissue preconditioning. AROM exercises complete in heat with good toleration. T-putty for gripping, pinching, and pulling with R hand. Reviewed joint protection techniques with patient verbalizing understanding. Recommended continue use of edema glove for swelling. Treatment: Manual: STM/DTM for edema management. Therapeutic Exercise: light strengthening of the R hand. Therapeutic Activity: Modalities: Neuro Re-Ed: Assessment/Plan Pt tolerated session well. Reports increased pain free ROM post session however pain returns following OT sessions. He is wearing an edema glove which helps. I encouraged heat and his HEP. He would like to return to doctor for additional imaging/ testing as pain as been persistent for several months. Pt will call back following speaking with doctor. documented in this encounter [facility] 05-22-2024 History of Presen t illness Narrative Occupational Therapy Occupational Therapy Treatment Visit Patient Name: Tate Encarnacion Today's Date: 05/22/2024 Linked Episodes Type: Episode: Status: Noted: Resolved: Last update: Updated by: Occupational Therapy R hand swelling Active 05/15/2024 05/22/2024 10:38 AM Jazlyn Lemus OT Comments: Visit number: 06/16 Timed Code Treatment minutes: 60 Total Treatment Time: 60 Subjective Pain: 05/21. I have not tried to use my saw or knife yet but plan on doing that today. It is definitely getting better. Not as swollen but still feels pretty stiff Overall progress:improving Objective: 40' MT for STM/ DTM of the R hand and wrist for edema management. PROM complete to R wrist, thumb, and all digits in all planes 1x15 with fair toleration. Composite dentofacial orthopedics dentist holds x2 minutes. Contract release exercsies 1x15. US complete to entire hand to asssit with edema/ stiffness reported 1.2 mgz 50% x5 minutes. 20' JOLANTA with 10' supervised JOLANTA in Fluido for tissue preconditioning. AROM exercises complete in heat with good toleration. T-putty for gripping, pinching, and pulling with R hand. Reviewed joint protection techniques with patient verbalizing understanding. Recommended continue use of edema glove for swelling. Treatment: Manual: STM/DTM for edema management. Therapeutic Exercise: light strengthening of the R hand. Therapeutic Activity: Modalities: Neuro Re-Ed: Assessment/Plan Pt tolerated session well. Reports increased pain free ROM post session.OT continues to remain necessary to maximize R hand function and reduce pain at discharge documented in this encounter [facility] 05-18-2024 History of Presen t illness Narrative Occupational Therapy Occupational Therapy Treatment Visit Patient Name: Tate Encarnacion Today's Date: 05/18/2024 Linked Episodes Type: Episode: Status: Noted: Resolved: Last update: Updated by: Occupational Therapy R hand swelling Active 05/15/2024 05/18/2024 8:05 AM Jazlyn Lemus OT Comments: Visit number: 05/19 Timed Code Treatment minutes: 60 Total Treatment Time: 60 Subjective Pain: 05/21. No pain. I started the medication and bought a compression glove. It still feels stiff but better Overall progress:improving Objective: 40' MT for STM/ DTM of the R hand and wrist for edema management. PROM complete to R wrist, thumb, and all digits in all planes 1x15 with fair toleration. Composite dentofacial orthopedics dentist holds x2 minutes. Contract release exercsies 1x15. IDN complete to intrinisic muscles and APL. Good toleration. No adverse reaction. 20' JOLANTA with 10' supervised JOLANTA in Fluido for tissue preconditioning. AROM exercises complete in heat with good toleration. T-putty for gripping, pinching, and pulling with R hand. Reviewed joint protection techniques with patient verbalizing understanding. Recommended continue use of edema glove for swelling. Treatment: Manual: STM/DTM for edema management. Therapeutic Exercise: light strengthening of the R hand. Therapeutic Activity: Modalities: Neuro Re-Ed: Assessment/Plan Pt tolerated session well. Reports increased pain free ROM post session.OT continues to remain necessary to maximize R hand function and reduce pain at discharge documented in this encounter [facility] 05-17-2024 History of Presen t illness Narrative Images from the original note were not included. Migraines Subjective Tate Encarnacion, 53 y.o., male Patient here today for a neurological consult at the request of Kira Garrison CNP for Migraines. He reports he had migraines since he was a child. He had a head injury 15 years ago. He now has a BONDS on the left side of his head where his head injury was. He gets a BONDS a few times a week. BODNS comes and goes throughout the day. He admits some light sensitivity. He denies any nausea or vomiting. He admits vision changes. He has been having blurred vision, this comes and goes. He states he is not sleeping well at night. He is getting only a few hours a night. He has trouble falling and staying asleep. He has MALCOLM but does not have his machine. He did have recent MRI at [facility]. He has never tried any medications for BONDS. HE has tried Advil but this does not help much. He reports episodes of dizziness, more with position changes. He describes it as off balance. He had some falls recently but this was not due to the dizziness. Review of Systems Constitutional: Negative. Eyes: Positive for photophobia and visual disturbance. Respiratory: Positive for shortness of breath. Cardiovascular: Negative. Gastrointestinal: Positive for diarrhea and nausea. Musculoskeletal: Positive for back pain and neck pain. Neurological: Positive for dizziness, weakness, light-headedness and headaches. Negative for tremors, seizures, syncope, facial asymmetry, speech difficulty and numbness. Psychiatric/Behavioral: Positive for sleep disturbance. The patient is nervous/anxious. History reviewed. No pertinent past medical history. History reviewed. No pertinent surgical history. Family History Family history unknown: Yes Social History Tobacco Use Smoking status: Never Smokeless tobacco: Current Types: Chew Substance Use Topics Alcohol use: Yes Allergies: Patient has no known allergies. Vitals: 05/17/24 0822 BP: 138/88 Pulse: 74 Body mass index is 39.61 kg/m . weight: 238 lb Neurologic exam: Mental status: Awake, alert to person, place and time. Recent and remote memory are intact. Language is fluent without aphasia. Attention and concentration are normal. Fund of knowledge is appropriate for level of education. Cranial nerves: CN II: Visual acuity is normal. Visual jay full to confrontation. CN III, IV, : pupils equal round and reactive to light. Extraocular movements intact. No ptosis present. CN V: Facial sensation is normal. CN VII: Full and symmetric facial movement. CN VIII: Hearing is normal to finger rub bilaterally: CN IX and X: Palate elevates symmetrically. CN XI: Shoulder shrug is normal bilaterally. CN XII: Tongue is midline without atrophy or fasciculation. Motor: RUE Strength deltoid, , biceps , triceps , wrist extensors , wrist flexor , dentofacial orthopedics dentist strength 5/5. LUE Strength deltoid , biceps , triceps , wrist extensors , wrist flexor , dentofacial orthopedics dentist strength 5/5. RLE Strength illopsoas, quadriceps, tibialis anterior, and gastrocnemius strength 5/5. LLE Strength illopsoas, quadriceps, tibialis anterior, and gastrocnemius strength 5/5. Normal tone x4 extremities. Bulk is normal. Sensory: Sensation is intact to light touch throughout Four extremities. Reflexes: RUE biceps reflex 2+ brachioradialis reflex 2+ . LUE biceps reflex 2+ brachioradialis reflex 2+ . RLE knee reflex 2+ . LLE knee reflex 2+ . Huerta's sign negative. Coordination: Hlvnsk-vd-dftp testing and rapid alternating movements are normal Gait: Normal Review and summary of old records: MRI of the brain without contrast on 05/08/2024: No acute intracranial process. Nonspecific bilateral mastoid effusions. Assessment/Plan Diagnoses and all orders for this visit: Neuralgia It is my impression that the patient has neuralgia that affects the left side of the head. He did have a head injury in this area with a board hitting his head about 15 years ago. He states over the course of the last year he has had some pretty substantial head pain over that head region. Over the course of the last month or so this is really dissipated and no longer problematic for him and is very mild. MRI of the brain does not show any acute intracranial pathology that would account for symptoms. I wonder if there is a neuralgia in this area from previous head injury that flared up at a time of stress, dehydration or infection. Neurological examination otherwise unremarkable. Plan: I do not see a need for medication intervention at this time in the setting of a normal MRI and resolution of symptoms If the symptoms return the patient may be a good candidate for treatment with Medrol Dosepak If the symptoms are more persistent and prophylaxis is required consideration could be given to gabapentin or Trileptal Pt has been fully educated on their diagnosis, lab results, treatment options, follow up plan, and return instructions documented in this encounter [facility] 05-15-2024 History of Presen t illness Narrative Images from the original note were not included. Occupational Therapy Occupational Therapy Evaluation Visit Patient Name: Tate Encarnacion Today's Date: 05/15/2024 No linked episodes Visit number: 04/22 Subjective Interim History: 53 y/o male presents with R hand pain and swelling following two falls ~ 2 months ago. Per patient he did have xrays and they were negative. Swelling persisted. Saw physician yesterday who prescribed therapy and a dose of steroids for R hand. Pt reports he works in [employer] and is unable to use his saw with his hand. Hurts to fully close hand. Digits 2-3 with most pain. Has no trialed heat/ ice/ OTC or edema glove at this time. Pain: pain described as stiff and achy. Pain up to an 8/10 at worst. 5/10 at rest. Imaging: negative for fractures Prior Level of Function: I with all self-care and functional mobility tasks. Works in [employer]. Precautions: none Objective PRWHE Pain Score: 39/50 PRWHE Functional Score: 68/100 Hand/Wrist Musculoskeletal Exam Inspection Right Erythema: none Ecchymosis: none Edema: moderate Deformity: none Hand - prior incision: none Wrist - prior incision: none Palpation Right Index tenderness to palpation: metacarpophalangeal joint and A1 trisha Middle tenderness to palpation: proximal phalanx and A1 trisha Palm - 2nd metacarpal tenderness to palpation: distal Palm - 3rd metacarpal tenderness to palpation: distal Palm - 4th metacarpal tenderness to palpation: distal Right wrist palpation is normal. Range of Motion Right Wrist Right wrist range of motion is normal. Range of motion additional comments: Does have increased pain when hand is in full composite fist. Strength Strength additional comments: R dentofacial orthopedics dentist strength: 35# compared to L dentofacial orthopedics dentist strength: 115# Special Tests Special tests additional comments: Edema Measurements: 5th digit : 24.2 cm 4th digit 34.2 cm 3rd digit: 36 cm 2nd 34.9 cm 1st 22.5 cm Total Hand: 151.8cm Treatment: Education: HEP education with demonstration, Educated on Eval Findings and POC Manual Therapy: Passive ROM, Joint mobilization, Soft Tissue Mobilization, Myofascial Release, Muscle Energy Technique, Neural Mobilization, Myofascial Cupping, Dry Needling, IASTM, and Scar mobilization Therapeutic Exercise: Strength, Endurance, Flexibility, ROM, HEP, Neural Mobilization, Power, and Core Stability Therapeutic Activity: Exercises to improve dynamic activities, functional tasks, functional mobility to return to prior activity level Neuromuscular re-education: Balance Training, Muscle Facilitation, and Dynamic Stability Modalities: Heat, Ice, Electrical Stimulation, Ultrasound, Iontophoresis, and Fluidotherapy Today: Fluido x10 minutes for R hand tissue preconditioning. Edema massage complete to R hand. IDN complete to intrinsic muscles of R hand to reduce stiffness. No adverse response. Tolerated session well. Recommend patient purchase edema glove to assist with swelling. Pt verbalized understanding. Kineseotape applied to dorsal hand for edema measurements at end of session.Wear time discussed. HEP established. Pt verbalizes understanding. Assessment/Plan Short Term Goals: Pt will be independent with home exercise program for light strengthening and ROM at discharge. Nursing Home Goals: PRWHE Pain Score < 20/ 50 ( IE:39/50 ) PRWHE Functional Score <25/100 (IE: 68/100) Reduce R hand edema by at least 5 cm in order to reduce pain and improve ROM at discharge. Pt to increase dentofacial orthopedics dentist strength by 10# and LP by 2# pain free at discharge. Pt will be able to use right UE in light daily activities. Pt will benefit from skilled OT to address the above impairments for 2x/week for 4-6 weeks. I hereby deem this POC medically necessary. Please sign below. Date: . documented in this encounter [facility] 05-11-2024 Evaluation + Plan note Extrac deb from: Title:ANES Post-operative Note---General Author: Cody Tay MD Date:05/11/24 Plan Transfer/Discharge: Transfer/Discharge Discharge when meets criteria ( To home ). Extracted from: Title:1Preop H&P Author:Lesley ROMERO, González akbar Date:05/11/24 Impression and Plan Impression: change in bowel habits Plan: -EGD and Colonoscopy Extracted from: Title:ANES Pre-operative Note 2022 Author:Cody Chávez Date:05/11/24 Plan [place] [employer] Anesthesiologists (ASA) physical status classification: Class II. Anesthetic Preoperative Plan: Anesthesia General. Future Appointments Appointment Date:05/21/2024 09:00:00 AM Scheduled Provider:González Sutton MD Location[facility] Appointment Type:[facility] Follow Up Appointment Date:09/07/2024 09:45:00 AM Scheduled Provider:Ji SIMON MD [place] [place] [facility] [place] Appointment Type:URO Office Visit [facility] 01-31-2025 Hospital Discharge instructions Patient Education 05/11/2024 [...] help quitting, ask your health careprovider. Take wkmq-erm-bhwcuhd and prescription medicines only as told by your health care provider. ?Do not use actu-bek-msexilk medicines in place of prescription medicines unless [...] help quitting, ask your health careprovider. Take dhej-mys-kupfadb and prescription medicines only as told by your health care provider. Do not use casa-fey-pnrmlqs medicines in place of prescription medicines unless your health care provider approves. Limit your alcohol and caffeine intake. Keep all follow-up visits. This is important. This information is not intended to replace advice given to you by your health care provider. Make sure you discuss any questions you have with your health care provider. Document Revised: 11/06/2021 Document Reviewed: 11/06/2021 [employer] Patient Education 2023 [email or web address]. 05/11/2024 09:43:40 Colonoscopy, Care After Surgery Salam [...] unsweetened, w/added ascorbic acid 1 cup 0.5 Dolores 1 cup 0.7 Vegetables Cooked Green beans 1 cup 4.0 Carrots 1/2 cup sliced 2.3 Peas 1 cup 8.8 Potato (baked, with skin) 1 medium potato 3.8 Raw Brothers (with peel) 1 cucumber 1.5 Lettuce 1 [...] 8.7 Peanuts 1/2 cup 7.9 Chart from [facility] 2013. SEEK IMMEDIATE MEDICAL CARE IF: You [...] Reference. Available at http://www.nal.usda.gov/fnic/foodcomp/search/. Information adapted from: ExitCare Patient Information 2009 [employer]. [facility] 2012 http://www.Kryptiq/contents/dzjyrhteqkgi-prkgupw-vshubf-the-basics 05/11/2024 09:43:38 Colon Polyps Colon Polyps Colon [...] hard liquor (44 mL). General instructions Take ucuq-xwk-cvrjhfk and prescription medicines only as told by [...] provider. Document Revised: 07/16/2020 Document Reviewed: 07/16/2020 [employer] Patient Education 2023 [email or web address]. 05/11/2024 09:27:02 Gluten-Free Diet for Celiac Disease, [...] are safe to eat. In the [place] [employer] are also required to list common food [...] how a food is processed, ask the heavy cleaner. What foods can I eat? Fruits All [...] cereals made from cornmeal or GF grains. [place], rice, and wild rice. Some rice noodles or dick noodles. Arrowroot starch, corn bran, corn flour, corn germ, cornmeal, corn starch, potato flour, potato starch flour, and rice bran. Plain, brown, and sweet rice flours. Rice italian, soy flour, and tapioca starch. Meats and [...] or meat loaves. Bread-containing products, such as [place] steak, croquettes, meatballs, and meatloaf. Most tuna canned in vegetable broth. [place] with hydrolyzed vegetable protein (HVP) injected as [...] provider. Document Revised: 02/16/2022 Document Reviewed: 02/16/2022 [employer] Patient Education 2023 [email or web address]. 05/11/2024 09:26:16 Upper Endoscopy, Adult, Care After [...] what activities are safe for you. Take ydoa-nvq-jplxjgm and prescription medicines only as told by [...] provider. Document Revised: 07/07/2022 Document Reviewed: 07/07/2022 [employer] Patient Education 2023 [email or web address]. 05/11/2024 09:26:10 Esophagitis Esophagitis Esophagitis is inflammation [...] Follow these instructions at home: Medicines Take seyo-akj-dzkxlas and prescription medicines only as told by [...] powder, vinegar, hot sauces, and barbecue sauce. ?[place] fruit juices and citrus fruits, such as oranges, ronald, and limes. ?Tomato-based foods, such as red sauce, chili, salsa, and pizza with red sauce. ?Fried and fatty foods, such as donuts, german fries, potato chips, and high-fat dressings. ?High-fat [...] provider. Document Revised: 10/06/2020 Document Reviewed: 10/06/2020 [employer] Patient Education 2023 [email or web address]. 05/11/2024 09:25:57 Celiac Disease Celiac Disease Celiac [...] provider. Document Revised: 02/16/2022 Document Reviewed: 02/16/2022 [employer] Patient Education 2023 [email or web address]. 05/11/2024 09:25:22 Gastritis, Adult Gastritis, Adult Gastritis [...] medicines. These include steroids, antibiotics, and some gkpy-jte-slgehdu medicines, such as aspirin or ibuprofen. Having [...] Follow these instructions at home: Medicines Take awfv-dqh-bjmqjns and prescription medicines only as told by [...] provider. Document Revised: 08/01/2021 Document Reviewed: 08/01/2021 [employer] Patient Education 2023 [email or web address]. [facility] 01-31-2025 NotePatient Education - Text Colonoscopy Care After Surgery Please read the instructions outlined below and refer to this sheet in the next few weeks. These discharge instructions provide you with general information on [facility] Your doctor may also give you specific [...] unsweetened, w/added ascorbic acid 1 cup 0.5 Dolores 1 cup 0.7 Vegetables Cooked Green beans 1 cup 4.0 Carrots 1/2 cup sliced 2.3 Peas 1 cup 8.8 Potato (baked, with skin) 1 medium potato 3.8 Raw Brothers (with peel) 1 cucumber 1.5 Lettuce 1 [...] 8.7 Peanuts 1/2 cup 7.9 [facility] (more content not included)...[facility] 05-11-2024 NoteProgress Note-Physician Patient: TATE ENCARNACION MRN: [id number] Age: 53 years Sex: Male : 1970 Associated Diagnoses: None Author: Cody Tay MD Postoperative Information Postoperative disposition: Postoperative disposition: To PACU. Optimetrix number: Optimetrix number [id number]. Anesthetic utilized: General. Health Status Allergies: Allergic [...] Discharge when meets criteria ( To home ).[facility] on above:Result Comment: Electronically Signed By: Cody Tay MD\.br\Date and Time Signed: 05/11/24 09:38 EST 05-11-2024 NoteEndoscopic Procedure Report - Other Patient: TATE ENCARNACION MRN: [id number] Age: 53 years Sex: Male : 1970 [...] rule out celiac disease Images Procedure images: Rec1_hd_video__[id number].jpg Rec1_hd_video__[id number].jpg Rec1_hd_video__[id number]_[id number].jpg Rec1_hd_video__[id number].jpg Rec1_hd_video__[id number].jpg Rec1_hd_video__[id number].jpg Rec1_hd_video__[id number]_[id number].jpg Rec1_hd_video__T08_[id number].jpg Rec1_hd_video__T08_[id number]_21_[id number].jpg . Post-Procedure Complications: none. Estimated blood loss: [...] EGD in 3 months to ensure esophagitis healingMadison Health Comment on above:Result Comment: Electronically Signed By: González Sutton MD\.br\Date and Time Signed: 05/11/24 09:09 ESTOther Comment: Missing Attachment - attachment storage system not supported [id number] Can be viewed in source system Missing Attachment - attachment storage system not supported [id number] Can be viewed in source systemMissing Attachment - attachment storage system not supported [id number] Can be viewed in source systemMissing Attachment - attachment storage system not supported [id number] Can be viewed in source systemMissing Attachment - attachment storage system not supported [id number] Can be viewed in source systemMissing Attachment - attachment storage system not supported [id number] Can be viewed in source systemMissing Attachment - attachment storage system not supported [id number] Can be viewed in source systemMissing Attachment - attachment storage system not supported [id number] Can be viewed in source system Missing Attachment - attachment storage system not supported [id number] Can be viewed in source [id number] NoteEndoscopic Procedure Report - Other Patient: TATE [...] qAM, # 75 gram, Refills(s) 3, Pharmacy: [facility], 165, cm, 05/07/24 9:19:00 EST, Height/Length Dosing, 108.1, kg, 05/07/24 9:19:00 EST, Weight Dosing Questran 4 g/9 g oral powder: = 1 packet(s), Oral, BID, # 60 EA, Refills(s) 0, Pharmacy: [facility], 170, cm, 04/24/24 8:57:00 EST, Height/Length Dosing, 108.6, kg, 04/24/24 8:57:00 EST, Weight Dosing Zenpep 60,000 units-189,600 units-252,600 units oral delayed release capsule: See Instructions, 300cap(s), Refill(s) 3, Take 2 caps with each meal and 1 with each snack, [facility], 170, cm, 04/24/24 8:57:00 EST, Height/Length Dosing, 108.6, kg, 04/24/24 8:57:00 EST, Weight Dosing tadalafil 20 mg Tab: 20 mg = 1 tab(s), Oral, As Directed, PRN for erectile dysfunction, Pt to take one tab 1 hour prior to sexual activity. Do not exceed 20mg in 24 hours., # 30 tab(s), Refills(s) 0,Pharmacy: [facility], 165, cm, 05/07/24 9:19:00 Logan DASH... Documented Medications Documented Prozac: 20 mg, Oral, [...] examined terminal ileum Images Procedure images: Rec_hd_video___[id number].jpg Rec_hd_video__12_57_[id number].jpg Rec_hd_video__11_15_539.jpg Rec_hd_video__06_07_071.jpg Rec_hd_video__06_04_714.jpg Rec1_hd_video____57_958.jpg Rec_hd_video____44_461.jpg Rec1_hd_video____17_731.jpg . Post-Procedure Complications: none. Estimated blood loss: [...] 5. Otherwise normal colo (more content not included)...[facility] HealthComment on above:Result Comment: Electronically Signed By: González Sutton MD\.br\Date and Time Signed: 05/11/24 09:07 ESTOther Comment: Missing Attachment - attachment storage system not supported [id number] Can be viewed in source systemMissing Attachment - attachment storage system not supported [id number] Can be viewed [facility] systemMissing Attachment - attachment storage system not supported [id number] Can be viewed in source systemMissing Attachment - attachment storage system not supported [id number] Can be viewed in so ce systemMissing Attachment - attachment storage system not supported [id number] Can be viewed in source systemMissing Attachment - attachment storage system not supported [id number] Can be viewed in source systemMissing Attachment - attachment storage system not supported [id number] Can be viewed in source systemMissing Attachment - attachment storage system not supported [id number] Can be viewed in source [phone] NoteHistory and Physical Patient: TATE ENCARNACION Age: 53 years Sex: Male : 1970 Associated Diagnoses: None Author: Lesley ROMERO, González Cadena Preoperative Information Indication for procedure and diagnosis: [...] qAM, # 75 gram, Refills(s) 3, Pharmacy: [facility], 165, cm, 05/07/24 9:19:00 EST, Height/Length Dosing, 108.1, kg, 05/07/24 9:19:00 EST, Weight Dosing Questran 4 g/9 g oral powder: = 1 packet(s), Oral, BID, # 60 EA, Refills(s) 0, Pharmacy: [facility], 170, cm, 04/24/24 8:57:00 EST, Height/Length Dosing, 108.6, kg, 04/24/24 8:57:00 EST, Weight Dosing Zenpep 60,000 units-189,600 units-252,600 units oral delayed release capsule: See Instructions, 300cap(s), Refill(s) 3, Take 2 caps with each meal and 1 with each snack, [facility], 170, cm, 04/24/24 8:57:00 EST, Height/Length Dosing, 108.6, kg, 04/24/24 8:57:00 EST, Weight Dosing tadalafil 20 mg Tab: 20 mg = 1 tab(s), Oral, As Directed, PRN for erectile dysfunction, Pt to take one tab 1 hour prior to sexual activity. Do not exceed 20mg in 24 hours., # 30 tab(s), Refills(s) 0,Pharmacy: [facility], 165, cm, 05/07/24 9:19:00 EST, Hei... [...] hypertension (high blood pressure) / SNOMED CT 30969857 / Confirmed Thyroid function tests abnormal / SNOMED CT 129983170 / Confirmed Anemia of chronic disorder (low iron) / SNOMED CT 148133936 / Confirmed Bloating / SNOMED CT 796190198 / Confirmed Black stool / SNOMED CT 977925328 / Confirmed Chronic GERD / SNOMED CT 962908303 / Confirmed Decreased sexual desire / SNOMED CT 303353604 / Confirmed Alcohol drinker / SNOMED CT 934652518 / Confirmed Stress-related physiological response affecting medical condition / SNOMED CT 29675350 / Confirmed High triglycerides / SNOMED CT 552420013 / Confirmed Obesity due to excess calories / SNOMED CT 5252512531 / Confirmed ED (erectile dysfunction) / SNOMED CT 7730152587 / Confirmed Hypogonadism male / SNOMED CT 78313668 / Confirmed Screening PSA (prostate specific antigen) / SNOMED CT 099467451 / Confirmed BPH with urinary obstruction / SNOMED CT 1345856342 / Confirmed Acquired buried penis / SNOMED CT 605386475 / Confirmed Histories Past Medical History: No [...] 11:28) Heart Rate Monitored 73 bpm (MAY 11:) Resp Rate 20 br/min (MAY 11:) SBP H 141 mmHg (MAY 11:) DBP H 93 mmHg (MAY 11:) Weight 108.6 kg (MAY 11:18) BMI 37.58 (MAY 11:) General: in Nad Abdomen: Soft, NTND Impression and Plan Impression: change in bowel habits Plan: -EGD and ColonoscopyMadison HealthComment on above:Result Comment: Electronically Signed By: Lesley ROMERO, González Cadena\.br\Date and Time Signed: 05/11/24 08:34 [id number] NoteProgress Note-Physician Patient: TATE ENCARNACION Age: 53 [...] qAM, # 75 gram, Refills(s) 3, Pharmacy: [facility], 165, cm, 05/07/24 9:19:00 EST, Height/Length Dosing, 108.1, kg, 05/07/24 9:19:00 EST, Weight Dosing Questran 4 g/9 g oral powder: = 1 packet(s), Oral, BID, # 60 EA, Refills(s) 0, Pharmacy: [facility], 170, cm, 04/24/24 8:57:00 EST, Height/Length Dosing, 108.6, kg, 04/24/24 8:57:00 EST, Weight Dosing Zenpep 60,000 units-189,600 units-252,600 units oral delayed release capsule: See Instructions, 300cap(s), Refill(s) 3, Take 2 caps with each meal and 1 with each snack, [facility], 170, cm, 04/24/24 8:57:00 EST, Height/Length Dosing, 108.6, kg, 04/24/24 8:57:00 EST, Weight Dosing tadalafil 20 mg Tab: 20 mg = 1 tab(s), Oral, As Directed, PRN for erectile dysfunction, Pt to take one tab 1 hour prior to sexual activity. Do not exceed 20mg in 24 hours., # 30 tab(s), Refills(s) 0,Pharmacy: [facility], 165, cm, 05/07/24 9:19:00 EST, Hei... [...] Problems Acquired buried penis / SNOMED CT 050532135 / Confirmed Alcohol drinker / SNOMED CT 853521221 / Confirmed Anemia of chronic disorder (low iron) / SNOMED CT 884113745 / Confirmed Benign hypertension (high blood pressure) / SNOMED CT 74913419 / Confirmed Black stool / SNOMED CT 023666746 / Confirmed Bloating / SNOMED CT 034638055 / Confirmed BPH with urinary obstruction / SNOMED CT 7051955203 / Confirmed Chronic GERD / SNOMED CT 671007267 / Confirmed Decreased sexual desire / SNOMED CT 427688366 / Confirmed ED (erectile dysfunction) / SNOMED CT 3144565023 / Confirmed High triglycerides / SNOMED CT 896025940 / Confirmed Hypogonadism male / SNOMED CT 47689389 / Confirmed Obesity due to excess calories / SNOMED CT 9377422249 / Confirmed Screening PSA (prostate specific antigen) / SNOMED CT 209850290 / Confirmed Stress-related physiological response affecting medical condition / SNOMED CT 41659715 / Confirmed Thyroid function tests abnormal / SNOMED CT 866934282 / Confirmed Canceled: Low libido / SNOMED CT 101128374, Active Problems (16) Acquired buried penis Alcohol [...] have been selected or (more content not included)...[facility] HealthComment on above:Result Comment: Electronically Signed By: Jasvir ROMERO, Cody Alvarez\.br\Date and Time Signed: 05/11/24 08:21 [id number] Hospital Discharge instructions Patient Education 05/07/2024 09:53:04 [...] therapy. Follow these instructions at home: Take vunu-nlj-wdtxapx and prescription medicines only as told by [...] provider. Document Revised: 11/27/2020 Document Reviewed: 11/27/2020 [employer] Patient Education 2023 [email or web address]. 05/07/2024 09:39:27 Erectile Dysfunction Erectile Dysfunction Erectile [...] Follow these instructions at home: Medicines Take ukvx-lmv-uyayhoz and prescription medicines only as told by [...] provider. Document Revised: 06/24/2021 Document Reviewed: 06/24/2021 [employer] Patient Education 2023 [employer]. Follow Up Care 04/27/2024 13:04:43 With:AURORA ROMERO, Ji Be, URL Address: [facility] [address] , [place] [address]- [phone] When: Unknown Comments:4 mos w/ PSA and T level [facility] Marco 01-27-2025 NotePatient Education Urology Hypogonadism, Male Male [...] Follow these instructions at home: ??? Take ltgi-yqd-xlujmwo and prescription medicines only as told by [...] sure you discuss any (more content not included)...[facility] Future Appointments Appointment Date:05/04/2024 09:30:00 AM Scheduled Provider: Location:[facility] Appointment Type:Surgery FT Appointment Date:05/11/2024 09:00:00 AM Scheduled Provider:Alejandra Hayden MD Location:[facility] Appointment Type:[facility] Follow Up Future Scheduled Tests Laboratory* Pancreatic Elastase, Fecal 04/24/24 * Pancreatic Elastase, Fecal 04/24/24 * Calprotectin, Fecal 04/24/24 Radiology* US Abdomen, Limited 04/24/24 [facility] Evaluation + Plan note Future Appointments Appointment Date:05/04/2024 09:30:00 AM Scheduled Provider: Location:[facility] Appointment Type:Surgery FT Appointment Date:05/11/2024 09:00:00 AM Scheduled Provider:Alejandra Hayden MD Location:[facility] Appointment Type:[facility] Follow Up Diagnostic Tests Pending * Celiac Disease Comprehensive 04/24/24 * Testosterone Level Total 04/24/24 Future Scheduled Tests Laboratory* Pancreatic Elastase, Fecal 04/24/24 * Pancreatic Elastase, Fecal 04/24/24 * Calprotectin, Fecal 04/24/24 Radiology* US Abdomen, Limited 04/24/24 [facility] Evaluation + Plan note Future Appointments Appointment Date:04/26/2024 08:30:00 AM Scheduled Provider: Location[facility] Appointment Type:US Abdominal/Pelvis (FT) Appointment Date:05/04/2024 09:30:00 AM Scheduled Provider: Location:[facility] Appointment Type:Surgery FT Appointment Date:05/11/2024 09:00:00 AM Scheduled Provider:Alejandra Hayden MD Location[place] Appointment Type:BAD Follow Up Diagnostic Tests Pending * Calprotectin, Fecal 04/25/24 * Pancreatic Elastase, Fecal 04/25/24 Future Scheduled Tests Radiology* US Abdomen, Limited 04/26/24 [facility] evaluation + Plan note Future Appointments Appointment Date:05/04/2024 09:30:00 AM Scheduled Provider: Location:[facility] Appointment Type:Surgery FT Appointment Date:05/11/2024 09:00:00 AM Scheduled Provider:Alejandra Hayden MD Location:[facility] Appointment Type:BAD Follow Up [facility] evaluation + Plan note Future Appointments Appointment Date:05/11/2024 08:15:00 AM Scheduled Provider: Location:[facility] Appointment Type:Surgery FT Appointment Date:05/21/2024 09:00:00 AM Scheduled Provider:González Sutton MD Location[place] Appointment Type:BAD Follow Up Appointment Date:09/07/2024 09:45:00 AM Scheduled Provider:Ji SIMON MD Location:[facility] Appointment Type:URO Office Visit Diagnostic Tests Pending * Testosterone Level Total 05/07/24 * PSA Screen, Total 05/07/24 [facility] evaluation + Plan note Future Appointments Appointment Date:09/07/2024 09:45:00 AM Scheduled Provider:Ji SIMON MD Location:[facility] Appointment Type:URO Office Visit [facility] Evaluation note* Diagnosis Swelling of right hand- Primary Joint stiffness of hand, right [facility] Diagnosis Neuralgia- Primary Unspecified neuralgia, neuritis, and radiculitis documented [facility]* Diagnosis Joint stiffness of hand, right- Primary Swelling of right hand [facility]* Diagnosis Joint stiffness of hand, right- Primary Swelling of right hand [facility] Narrative No data available for this section [facility] Discharge instructions No data available for this section [facility] Progress note No data available for this section [facility] Reason for visit Narrative* Rehabilitation - Outpatient (Routine) - Authorized Specialty Diagnoses / Procedures Referred By Contac t Referred To Contact Occupational Therapy / Physical Therapy Diagnoses Swelling of R hand Procedures [place] OCCUPATIONAL THERAPY EVALUATION [place] OFFICE/OUTPATIENT NEW HIGH MDM 60 MINUTES Genoveva Childs MD [address] [place] [address] [place] [address] Phone: tel: fax: Jazlyn Lemus, OT [address] [place] [address] Phone: tel: fax: Referral ID Status Reason Start Date Expiration Date V isits Requested Visits Authorized [id number] Authorized 05/15/2024 11/11/2024 30 30 [facility] N[facility]* Rehabilitation - Outpatient (Routine) - Authorized Specialty Diagnoses / Procedures Referred By Briseida t Referred To Contact Occupational Therapy / Physical Therapy Diagnoses Swelling of R hand Procedures [place] OCCUPATIONAL THERAPY EVALUATION [place] OFFICE/OUTPATIENT NEW HIGH MDM 60 MINUTES Genoveva Childs MD [address] [place] [address] [place] [address] Phone: tel: fax: Jazlyn Lemus, OT [address] [place] [address] Phone: tel: fax: Referral ID Status Reason Start Date Expiration Date V isits Requested Visits Authorized [id number] Authorized 05/15/2024 04/10/2025 30 30 [facility] Summary Purpose Family History No Family History [...] and content) DATE CREATED AUTHOR 03/21/2018 [facility] DATE CREATED AUTHOR AUTHOR'S ORGANIZ ATION 04/27/2024 [facility] DATE CREATED AUTHOR AUTHOR'S ORGANIZ ATION 04/28/2024 [facility] DATE CREATED AUTHOR AUTHOR'S ORGANIZ ATION 04/30/2024 [facility] DATE CREATED AUTHOR AUTHOR'S ORGANIZ ATION 05/13/2024 [facility] DATE CREATED AUTHOR AUTHOR'S ORGANIZ ATION 05/18/2024 [facility] DATE CREATED AUTHOR AUTHOR'S ORGANIZ ATION 05/19/2024 [facility] DATE CREATED AUTHOR AUTHOR'S ORGANIZ ATION 05/20/2024 [facility] DATE CREATED AUTHOR AUTHOR'S ORGANIZ ATION 05/24/2024 [facility] DATE CREATED AUTHOR AUTHOR'S ORGANIZ ATION 05/27/2024 [facility] EPIC Patient Care team informatio n (unrecognized section and content) Communications Executive Relationship Specialty Start Date End Date Unallocated, Noms MD Gianluc[address] [place] [address] PCP - General Family Medicine 04/19/24 Kira Garrison MD [facility] [place] [address] Referring Physician Family Medicine 04/19/24 Communications Executive Relationship Specialty Start Date End Date Unallocated, Jose Hough MD [address] [place] [id number] PCP - General Family Medicine 04/19/24 Kira Garrison MD [address] [place] [address] Referring Physician Family Medicine 04/19/24 Communications Executive Relationship Specialty Start Date End Date Unallocated, Jose Hough MD [facility] [place] [address] PCP - General Family Medicine 04/19/24 Kira Garrison MD [address] [place] [id number] Referring Physician Family Medicine 04/19/24 Sandra Castellanos DO [address] [phone] Referring Physician Neurology 05/17/24 Communications Executive Relationship Specialty Start Date End Date Unallocated, Jose Hough MD [address] [place] [id number] PCP - General Family Medicine 04/19/24 Kira Garrison MD [address] [place] [id number] Referring Physician Family Medicine 04/19/24 Sandra Castellanos DO [address] [address] Referring Physician Neurology 05/17/24 Communications Executive Relationship Specialty Start Date End Date Unallocated, Jose Hough MD [address] [place] [phone] PCP - General Family Medicine 04/19/24 Kira Garrison MD [address] [place], [place] [phone] Referring Physician Family Medicine 04/19/24 Sandra Castellanos DO [address] [place] [address] Referring Physician Neurology 05/17/24 Communications Executive Relationship Specialty Start Date End Date Unallocated, Noms Provider, [place] [address] PCP - General Family Medicine 04/19/24 Kira Garrison MD [address] [place] [phone] Referring Physician Family Medicine 04/19/24 Sandra Castellanos DO [address] [place] [address] Referring Physician Neurology 05/17/24 Reason for Visit (unrecogniz ed section and content) Reason Comments Migraine Specialty Diagnoses / Procedures Referred By Contac t Referred To Contact Neurology Diagnoses Migraine, unspecified, not intractable, without status migrainosus ([facility]) Procedures [place] OFFICE/OUTPATIENT NEW LOW MDM 30 MINUTES Kira Garrison MD [address] [place], [place] [id number] Phone: tel: fax: Sandra Castellanos DO [address] [address] Phone: tel: fax: Referral ID Status Reason Start Date Expiration Date V isits Requested Visits Authorized [id number] Closed Consult and Treat 04/18/2024 10/15/2024 1 1 FOR RECORDS PERTAINING TO PATIENTS WHO ARE [...] BE BASED ON THE PRIMARY CLINICAL RECORDS. [facility]. provides no warranty or guarantee of the accuracy or completeness of information in this document.
[2024-06-05 09:58] LABS: Basophils Absolute Auto 0.1 10^3/uL (0.0-0.1); Basophils Percent Auto 0.7 % (0.2-2.0); Eosinophils Absolute Auto 0.1 10^3/uL (0.0-0.7); Eosinophils Percent Auto 1.7 % (0.9-7.0); Hematocrit 39.5 % (42.0-54.0); Hemoglobin 13.7 g/dL (14.0-18.0); Immature Granulocytes Abs Auto 0.05 10^3/uL (0.00-0.03); Immature Granulocytes Pct Auto 0.7 % (0.0-0.5); Lymphocytes Absolute Auto 2.1 10^3/uL (1.2-3.8); Mean Corpuscular HGB Conc 34.7 g/dL (29.9-35.2); Mean Corpuscular Hemoglobin 33.6 pg (25.9-34.0); Mean Corpuscular Volume 96.8 fL (80.0-94.0); Mean Platelet Volume 9.4 fL (9.5-13.5); Monocytes Absolute Auto 0.5 10^3/uL (0.3-0.8); Monocytes Percent Auto 6.3 % (1.7-12.0); Neutrophils Absolute Auto 4.4 10^3/uL (1.4-6.5); Neutrophils Percent Auto 61.6 % (43.0-75.0); Platelet Count 196 10^3/uL (150-450); Red Blood Count 4.08 10^6/uL (4.70-6.10); Red Cell Distribution Width 13.4 % (11.0-15.0); White Blood Count 7.2 10^3/uL (4.0-11.0)
[2024-06-05 11:03] LABS: Chol HDL Ratio 6.8; Cholesterol 245 mg/dL (<=200); HDL Cholesterol 36 mg/dL (40-60); Triglycerides 1473 mg/dL (<=150); VLDL CHOLESTEROL 294.6 mg/dL
[2024-06-05 11:14] LABS: LDL Cholesterol Direct 49 mg/dL
== END 2024-06-05 09:38 | disposition home or self-care (01) ==
LOC: LAB 09:39
PROVIDERS: PCP Nurse Practitioner Family; Visit Provider Nurse Practitioner Family
DX: Z00.00 Encounter for general adult medical examination without abnormal findings (principal); E78.5 Hyperlipidemia, unspecified; E03.9 Hypothyroidism, unspecified
CPT/HCPCS: 36415; 80061; 83721; 84436; 84443; 84481; 85025

== ENCOUNTER 2024-06-20 10:51 | Outpatient (OUT) | payer OTHER, SELFPAY ==
--- NOTE | 2024-06-20 | PCN_ITS ---
CARDIAC STRESS TEST Requesting Physician: Procedure Date: 06/20/2024 TREADMILL EKG STRESS TEST INDICATION FOR THE TEST: Shortness of breath. The procedure was discussed with the patient including details as well as the risks and benefits and he was agreeable to proceed. Resting 12 lead EKG showed normal sinus rhythm, heart rate 64 beats per minute, normal EKG. Resting blood pressure 140/78 mm/Hg.. The patient was exercised according to standard Gregory protocol on treadmill for a total of 5 minutes and 41 seconds, achieving 7 METS and max heart rate of 146 beats per minute, which represents 87% of age predicted maximum heart rate, maximum blood pressure 148/82 mm/Hg. The test was terminated secondary to achievement of target heart rate and fatigue. Patient had shortness of breath at peak exercise, but he did not experience any chest, neck, jaw or arm discomfort. The patient was monitored for a total of 6 minutes into recovery phase, with heart rate back to 85 beats per minute and blood pressure to 140/80 mm/Hg. EKG during exercise, at peak exercise, and during recovery phase did not show significant T or ST changes or significant arrhythmias. CONCLUSION: 1. Maximal stress test achieving 87% of age predicted maximum heart rate. 2. Reduced exercise tolerance. 3. Appropriate heart rate and blood pressure response to exercise. 4. This stress test is negative for exercise induced ischemic symptoms, EKG changes or arrhythmias. 5. Teixeira score is 6 consistent with low risk for coronary artery disease and cardiac events. MTDD
--- OUTSIDE RECORDS SUMMARY | 2024-06-20 11:06 | XMS_ITS | CCD ---
Author Organization [facility] Care Team Providers Care Epic Ambulatory Analyst Name Role Phone NADERER, LUIS ANTONIO A [...] Unavailable Unavailable KIRA GARRISON Primary Care Physician Alejandra Hayden A. Admitting Unavailable Rita Haydend A. Attending Unavailable Alejandra Hayden ADo Attending Unavailable Teena Haydenamad A. Admitting Unavailable Ji SIMON Attending Unavailable Mokarmen Mohamad A. Admitting Unavailable Mokarmen Mohamad A. Attending Unavailable Rita Haydend A. Referring Unavailable Kira Garrison MD Unavailable Unallocated , Noms Provider Primary Care Provi radha Sandra Castellanos DO Unavailable [phone] Alejandra Hayden A. Referring Unavailable Ji SIMON Attending Unavailable Alejandra Hayden Attending Unavailable Jackelyn Mohamad A. Referring Unavailable Jackelyn Mohamad A. Admitting Unavailable SANDRA CASTELLANOS Attending Unavailable KIRA GARRISON Referring Unavailable JAZLYN WILBURN Attending Unavailable GENOVEVA CARTAGENA Referring Unavailable JAZLYN WILBURN Attending Unavailable GENOVEVA CARTAGENA Referring Unavailable JAZLYN WILBURN Attending Unavailable GENOVEVA CARTAGENA Referring Unavailable JAZLYN WILBURN Attending Unavailable GENOVEVA CARTAGENA Referring Unavailable Alejandra Hayden Admitting Unavailable Alejandra Hayden Attending Unavailable González Sutton Attending Unavaila ble Alejandra Hayden Attending Unavailable Allergies Allergy Classification Reported Allergen(s) Allergy Type Date of Onset Reaction(s) Facility (4 sources) No Known Medication Allergies; Translations: [No Known Medication Allergies] Propensity to adverse reactions (disorder) [facility] Repository Medications Current Medications Medication Drug Class(es) Dates Sig (Normalized) Sig (Original) amylase 452962 UNT / lipase 04157 UNT / protease 492192 UNT Delayed Release Oral Capsule [Zenpep] (3 sources) Start: 04-30-2024 Zenpep 60,000 units-189,600 units-252,600 units oral delayed release capsule See Instructions, 300 cap(s), Refill(s) 3, Take 2 caps with each meal and 1 with each snack, [facility], 170, cm, 04/24/24 8:57:00 EST, Height/Length Dosing, 108.6, kg, 04/24/24 8:57:00 EST, Weight Dosing Start Date: 04/30/24 Status: Ordered cholecalciferol 0.05 mg oral capsule (7 sources) Vitamin D Start: 04-23-2024 take 1 capsule by mouth once daily cholecalciferol (Vitamin D-3) 50 MCG (1999 UT) capsule Take 2,000 Units by mouth [...] gm, Oral, BID, 378 gm, Refill(s) 11, [facility], 170, cm, 05/11/24 7:28:00 EST, Height/Length Dosing, 108.6, kg, 05/11/24 7:28:00 EST, Weight Dosing Start Date: 05/14/24 Status: Ordered Start: 04-24-2024 Questran 4 g/9 g oral powder = 1 packet(s), Oral, BID, # 60 EA, Refills(s) 0, Pharmacy: [facility], 170, cm, 04/24/24 8:57:00 EST, Height/Length [...] qAM, # 75 gram, Refills(s) 3, Pharmacy: [facility], 165, cm, 05/07/24 9:19:00 EST, Height/Length [...] hours., # 30 tab(s), Refills(s) 0, Pharmacy: [facility], 165, cm, 05/07/24 9:19:00 EST, Height/Length [...] hemorrhage (2 sources) Melena; Translations: [Melena] Onset: 5 Episodic Hyperplasia of prostate (4 sources) Benign [...] Name Value Interpretation Reference Range Facility Reminderson 06-05-2024 Reminders Reminders From: Glo Hilario I To: [facility] - Reminders/Recalls; Sent: 06/05/2024 08:25:46 EST Show up: 03/11/2031 08:25:00 EST Subject: Colonoscopy recall Due Date/Time: 05/11/2031 08:25:00 EST Reminder/Recall [address] Sutton 05/11/24 Normal [facility] Reminderson 05-22-2024 Reminders Reminders From: Cheryl Christian [...] if he is okay with it Normal [facility] Gastroenterology Office/Clin ic Noteon 05-21-2024 Gastroenterology Office/Clinic Note Gastroenterology Office/Clinic Note Chief Complaint follow up to egd/colonoscopy HPI Staff Established patient is a(n) 53 year old male who presents today for a follow up to EGD & Colonoscopy on 05/11/24. Pt previously seen with Dr. Hayden, but insurance was denying EGD/Colon stating he was out of network for [facility]. Pt was r/s with Dr. Sutton. Fecal [...] taken rule out celiac disease Addendum by González Sutton MD on May 11, 2024 9:09 EST ( [...] recorded by (more content not included)... Normal [facility] Comment on above: Result Comment: Elec tronically Signed By: Lesley ROMERO, González Cadena\.br\Date and Time Signed: 05/21/24 09:44 EST\.br\Electronically Co-Signed By: Syeda Chavez MA\.br\Date and Time Co-Signed: 05/21/24 09:42 EST Surgical Pathology Reporton 05-17-2024 Surgical Pathology Report [facility] [address] [place] [address]- Surgical Pathology Report Collected Date/Time: 05/11/2024 08:38 EST Pathologist: Triny Israel MD Received Date/Time: 05/11/2024 10:55 EKTA Sutton MD, González Sutton MD, González Thibodeaux Surgical Pathology Report - 05/17/2024 11:55 EST [...] POLYPECTOMY: --FRAGMENTS OF TUBULAR ADENOMA (Electronic Signature) Sadia. Lindy MD 05/17/2024 11:55 Clinical Information Chronic GERD, change [...] Triny Israel MD Received Date/Time: 05/11/2024 10:55 EKTA Sutton MD, González Sutton MD, González Cadena Specimen(s) Received [...] recognition technology and might contain unintended computerized rod piler errors. The use of one or more reagents in the above tests is regulated as an analyte specific reagent (ASR). The test or tests are ordered following initial H&E microscopic examination. The performance characteristics were determined by the [facility] Surgical Pathology. They have not been cleared or approved by the US Food and Drug Administration. The FDA has determined that such clearance or approval is not necessary. These tests are used for clinical purposes. They should not be regarded as investigational or for research. Appropriate positive and negative co (more content not included)... Normal [facility] Comment on above: Performed By: #### 4 [id number] #### [facility] Laboratory [address] [place] [address] Discharge Instructionson Discharge Instructions Discharge Instructions TATE [...] EST With: Lesley ROMERO, González Cadena Where: [facility] [address] [facility] [address] [place] [address]- Tuesday 9:45 AM EDT With: Ji SIMON MD Where: [facility] [address] [place] [address] [place] [address]- Medications What How Much When Why Instructions Next Dose New omeprazole (omeprazole 40 mg Cap-DR) 1 Capsules By Mouth 2 times a day Refills: 3 Pickup at [facility] Unchanged cholecalciferol (Vitamin D3 50 mcg [...] a day (in the morning) Pharmacy Information [facility]: [address] [place], [place] [id number] [phone] Test Results No qualifying data available. Allergies [...] tarry stool (more content not included)... Normal [facility] Comment on above: Result Comment: Elec tronically Signed By: Cy SADLER, Mariama\.br\Date and Time Signed: 05/11/24 09:44 EST Discharge Instructions Discharge Instructions TATE ENCARNACION :1970 Visit Date:05/11/2024 Inpatient Discharge Instructions Your Care Team Admitting Physician - Alejandra Hayden MD. Referring Physician - Alejandra Hayden MD. Reason for Your Visit IRRITABLE BOWEL SYNDROME [...] EST With: Lesley ROMERO, González Cadena Where: [facility] [address] [facility] [address] [place] [address]- Tuesday 9:45 AM EDT With: AURORA ROMERO, Ji Be Where: [facility] [address] [place] [address]- Medications What How Much When Why Instructions Next Dose New omeprazole (omeprazole 40 mg Cap-DR) 1 Capsules By Mouth 2 times a day Refills: 3 Pickup at [facility] Unchanged cholecalciferol (Vitamin D3 50 mcg [...] a day (in the morning) Pharmacy Information [facility]: [address] [place], [place] [phone] Test Results No qualifying data available. Allergies [...] malt extra (more content not included)... Normal [facility] Comment on above: Result Comment: Elec tronically Signed By: Cy SADLER, Mariama\.jeaneth\Date and Time Signed: 05/11/24 09:30 EST Main OR Intraoperative Recor don 05-11-2024 Main OR Intraoperative Record Main OR Intraoperative Record IntraOp Document Type FT Summary Primary Physician: González Sutton MD Finalized Date/Time: 05/11/24 10:41:05 Pt. Name: TATE ENCARNACION/Sex: 1970 Male Med Rec #: [id number] Physician: Jackelyn ROMERO, Alejandra Kelly Financial #: [id number] Pt. Type: O Room/Bed: / Admit/Disch: 05/11/24 [...] Negrete RN, Sheldon Martines Role Performed Anesthesiologist Nursing Assistants Teacher - Primary Scrub - Primary Certification Officer Time In 05/11/24 08:30:00 05/11/24 08:30:00 05/11/24 08:30:00 Time Out 05/11/24 09:08:00 05/11/24 09:08:00 05/11/24 09:08:00 Procedure EGD AND COLONOSCOPY(.) EGD AND COLONOSCOPY(.) EGD AND COLONOSCOPY(.) Comments Dr. Tay supervising Last Modified By: [place] RN, Becky Negrete RN, Becky Hurt RN 05/11/24 09:08:58 05/11/24 09:08:58 05/11/24 09:08:58 Entry 4 Entry 5 Case Attendee Ty SMITH, Kimberly Sutton MD, González Cadena Role Performed Staff - Other Surgeon - Primary Time In 05/11/24 08:45:00 05/11/24 08:30:00 Time Out 05/11/24 09:08:00 05/11/24 09:08:00 Procedure EGD AND COLONOSCOPY(.) EGD AND COLONOSCOPY(.) Comments help in room Last Modified By: Becky Negrete RN, RN, Angela 05/11/24 09:08:58 05/11/24 09:08:58 Perioperative Protocols FT [...] No Time Out Gonzalo Muhammad, Given Participants Becyk Negrete RN, Sparks, Micala E, Lesley ROMERO, [...] and tissue Entry 1 Skin Integrity Intact, [place], Warm, & Skin Abnormality No Dry Outcomes Met? Yes Last Modified By: Becky Negrete RN 05/11/24 09:06:34 Post-Care Text: The patient is free from signs and sym (more content not included)... Normal [facility] Main OR PACU II Recordon Main OR PACU II Record Main OR PACU II Record PACU Phase II Document Type FT Summary Primary Physician: Lesley ROMERO, González Cadena Finalized Date/Time: 05/11/24 10:02:45 Pt. Name: TATE ENCARNACION/Sex: 1970 Male Med Rec #: [id number] Physician: Alejandra Hayden MD Financial #: [id number] Pt. Type: O Room/Bed: / Admit/Disch: 05/11/24 [...] Signed By: Mariama Benoit RN 05/11/24 10:02 [facility] Main OR Preoperative Recordo n 05-11-2024 Main OR Preoperative Record Main OR Preoperative Record Holding Area Document Type FT Summary Primary Physician: González Sutton MD Finalized Date/Time: 05/11/24 07:18:36 Pt. Name: TATE ENCARNACION/Sex: 1970 Male Med Rec #: [id number] Physician: Alejandra Hayden MD Financial #: [id number] Pt. 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 Your Care Team Attending Physician - Ji SIMON MD Primary Care Physician - KIRA GARRISON CNP Referring Physician - Jackelyn ROMERO, Alejandra Kelly This Is Your Medications List tadalafil (tadalafil [...] With: Where: [facility] Tuesday 9:00 AM EST With: Lesley ROMERO, González Cadena Where: [facility] [address] [address]- Tuesday 9:45 AM EDT With: Ji SIMON MD Where: [facility] [address] [place] [address]- You Need to Schedule the Following Appointments Follow Up with AURORA ROMERO, Ji Be, URL When: Comments: 4 mos w/ PSA and T level Where: [facility] [address], [place] [phone] Medications What How Much When Why Instructions New tadalafil (tadalafil 20 mg Tab) 1 Tablets By Mouth As Directed as needed for for erectile dysfunction Pt to take one tab 1 hour prior to sexual activity. Do not exceed 20mg in 24 hours. Pickup at [facility] New testosterone (AndroGel Pump 20.25 mg/ 1.25 g (1.62%) transdermal gel) 2 Pump Topical Once a day (in the morning) Refills: 3 Pickup at [facility] Unchanged cholecalciferol (Vitamin D3 50 mcg [...] physician if questions or concerns Pharmacy Information [facility]: [address] [place] [phone] Allergies No Known Allergies No Known Medication [...] gives men (more content not included)... Normal [facility] Urology Office/Clinic Noteon 05-07-2024 Urology Office/Clinic Note Urology Office/Clinic Note Chief Complaint New patient [facility] Staff 53yr old male referred by Dr. [...] -Start Cialis 20mg prn. Rx sent to [facility]. Recommended GoodRx. 2. Hypogonadism male (E29.1: [...] buried peni (more content not included)... Normal [facility] Comment on above: Result Comment: Elec tronically Signed By: Ji SIMON MD\.br\Date and Time Signed: 05/07/24 10:05 EST\.br\Electronically Co-Signed By: Nirmala Lama.br\Date and Time Co-Signed: 05/07/24 09:58 EST Calprotectin, Fecalon 2024 Calprotectin (Stl) [Mass/Mass] 15 mcg/gm Invalid Interpretation Code 0-120 [facility] Comment on above: Result Comment: Conc entration Interpretation Follow-Up < 5 - 50 ug/g Normal None >50 -120 ug/g Borderline Re-evaluate in 4-6 weeks >120 ug/g Abnormal Repeat as clinically indicated Performed at: [facility] [id number] MD Alfredo Green Performed By: #### 1 [id number] #### [facility] [address] [place] [address] Pancreatic Elastase, Fecalon 04-28-2024 Elastase.pancreatic (Stl) [Mass/Mass] 9 Low >200 [facility] Comment on above: Result Comment: Nicole re Pancreatic Insufficiency: <100 Moderate Pancreatic Insufficiency: 100 - 200 Normal: >200 Performed at: [address] [id number] MD Alfredo Green Performed By: #### 1 [id number] ####[facility] [address] [place] [address] US Abdomen, Limitedon 2024 US Abdomen, Limited [...] Hayden FINAL REPORT Dictated: 04/27/2024 11:28 am SignYaya austin MD Signed (Electronic Signature): 04/27/2024 11:28 am Signed by: Yaya Rooney MD Transcribed by: MARIA C Technologist: Eric YING [facility] Celiac Disease Comprehensive on 04-25-2024 Endomysium IgA Ql (S) Negative Invalid Interpretation Code Negative [facility] Comment on above: Result Comment: Seru m is slightly lipemic. Performed By: #### 1 [id number] #### [facility] [address] [place] [address] Gliadin peptide IgA Qn (S) 4 unit(s) Invalid Interpretation Code 0-19 [facility] Comment on above: Result Comment: Nega tive 0 - 19 Weak Positive 20 - 30 Moderate to Strong Positive >30 Performed By: #### 1 [id number] #### [facility] [address] [place] [address] Gliadin peptide IgG Qn (S) 2 unit(s) Invalid Interpretation Code 0-19 [facility] Comment on above: Result Comment: Nega tive 0 - 19 Weak Positive 20 - 30 Moderate to Strong Positive >30 Performed By: #### 1 [id number] #### [facility] [address] [place] [address] IgA [Mass/Vol] 213 mg/dL Invalid Interpretation Code 90-008 [facility] Comment on above: Result Comment: Perf ormed at: [facility] [address] [place], [place] [id number] PhD Franklin Pollard Performed By: #### 1 [id number] #### [facility] [address] [place] [address] tTG IgA Qn (S) <2 Invalid Interpretation Code 0-3 [facility] Comment on above: Result Comment: Nega tive 0 - 3 Weak Positive 4 - 10 Positive >10 Tissue Transglutaminase (tTG) has been identified as the endomysial antigen. Studies have demonstr- ated that endomysial IgA antibodies have over 99% specificity for gluten sensitive enteropathy. Performed By: #### 1 [id number] #### [facility] [address] [place] [address] tTG IgG Qn (S) <2 Invalid Interpretation Code 0-5 [facility] Comment on above: Result Comment: Nega tive 0 - 5 Weak Positive 6 - 9 Positive >9 Performed By: #### 1 [id number] #### [facility] [address] [place] [address] Testost Totalon 04-25-2024 Testosterone [Mass/Vol] 194 ng/dL Low 264-916 [facility] Comment on above: Result Comment: Adul t male reference interval is based on a population of healthy nonobese males (BMI <30) between 19 and 39 years old. gus Levy.al. JCEM 2017,102;5132-0815. PMID: [id number]. Performed at: [facility] [id number] PhD Franklin Pollard Performed By: #### 2 [id number] #### [facility] [address] [place] [address] Ambulatory Visit Summaryon 0 04-24-2024 Ambulatory Visit Summary Ambulatory Visit Summary TATE ENCARNACION :1970 Visit Date:04/24/2024 Ambulatory Visit Instructions Your Diagnosis Irritable bowel syndrome with diarrhea Bloating Black stool Chronic GERD Decreased sexual desire Alcohol drinker Stress-related physiological response affecting medical condition High triglycerides Obesity due to excess calories Your Care Team Attending Physician - Jackelyn ROMERO, Alejandra Kelly Primary Care Physician - KIRA GARRISON CNP [...] EST With: Jackelyn ROMERO, Alejandra Kelly Where: [facility] [address] [place] [address]- You Need to Complete the Following C-Reactive [...] GERD Decreased sexual desire, pp_set_radiology_subspe Christian lindo [facility] Medications What How Much When Why Instructions New cholestyramine (Questran 4 g/ 9 g oral powder) 1 Packets By Mouth 2 times a day Irritable bowel syndrome with diarrhea Bloating Black stool Chronic GERD Pickup at [facility] Unchanged cholecalciferol (Vitamin D3 50 mcg [...] physician if questions or concerns Pharmacy Information [facility]: [address] [place] [phone] [phone] Medications and Immunizations Administered Not Given influenza [...] for choosing us for your care. Normal [facility] CHEMISTRYOrdered By: SYSTEM SYSTEM on 04-24-2024 CRP [Mass/Vol] 0.2 mg/dL Normal <=1.9mg/dL Remisol Chem CRPon 04-24-2024 CRP [Mass/Vol] 0.2 mg/dL Normal <=1.9 [facility] Comment on above: Performed By: #### 2 [id number] #### [facility] [address] [place] [address] Gastroenterology Office/Clin ic Noteon 04-24-2024 Gastroenterology Office/Clinic [...] previous EGD/Colonoscopy Denies any recent imaging Labs 1/7/25 Occult blood Negative White Blood Count 5.1 [...] BID, # 60 EA, Refills(s) 0, Pharmacy: [facility], 170, cm, 04/24/24 8:57:00 EST, Height/Length Dosing, 108.6, kg, 04/24/24 8:57:00 EST, Weight Dosing C-Reactive Protein Calprotectin, Fecal Celiac Disease Comprehensive Colonoscopy (Hospital Procedure) EGD Endoscopy (Hospital Procedure) IgA, Quant. Pancreatic Elastase, Fecal Pancreatic Elastase, Fecal Testosterone Level Total US Abdomen, Limited 2. Bloating (R14.0: Abdominal distension (gaseous)) Ordered: cholestyramine, = 1 packet(s), Oral, BID, # 60 EA, Refills(s) 0, Pharmacy: [facility], 170, cm, 04/24/24 8:57:00 EST, Height/Length Dosing, 108.6, kg, 04/24/24 8:57:00 EST, Weight Dosing C-Reactive Protein Calprotectin, Fecal Celiac Disease Comprehensive Colonoscopy (Hospital Procedure) EGD Endoscopy (Hospital Procedure) IgA, Quant. Pancreatic Elastase, Fecal Pancreatic Elastase, Fecal Testosterone Level Total US Abdomen, Limited 3. Black stool (K92.1: Melena) Ordered: cholestyramine, = 1 packet(s), Oral, BID, # 60 EA, Refills(s) 0, Pharmacy: [facility], 170, cm, 04/24/24 8:57:00 EST, Height/Length [...] BID, # 60 EA, Refills(s) 0, Pharmacy: [facility], 170, cm, 04/24/24 8:57:00 EST, Height/Length Dosing, 108.6, kg, 04/24/24 8:57:00 EST, Weight Dosing C-Reactive Protein Calprotectin, Fecal Celiac Disease Comprehensive Colonoscopy (Hospital Procedure) EGD Endoscopy (Hospital Procedure) IgA, Quant. Pancreatic Elastase, Fecal Pancreatic Elastase, Fecal Testosterone Level Total US Abdomen, Limited 5. Decreased sexual desire (F52.0: Hypoactive sexual desire disorder) Ordered: [facility] Internal Ambulatory Referral Pancreatic Elastase, Fecal Testosterone Level Total US Abdomen, Limited 6. Alcohol drinker (Z78.9: Other specified health status) 7. Stress-related physiological response affecting medical condition (F54: Psychological and behavioral factors associated with disorders or diseases classified elsewhere) 8. High triglycerides (E78.1: Pure hyperglyceridemia) 9. Obesity due to excess calories (E66.09: Ot (more content not included)... Normal [facility] Comment on above: Result Comment: Elec tronically Signed By: Jackelyn ROMERO, Alejandra Harrison.br\Date and Time Signed: 04/24/24 09:30 EST FREE T3on 03-15-2018 T3 free mass conc 3.10 pg/mL Normal 2.77-5.27 [facility] Comment on above: Performed By: #### B MP, LIVER, FT3, LIPID, PSASC, TSH, DLDL ####[facility] [id number] FREE T4on 03-15-2018 T4 free mass conc 0.88 ng/dL Normal 0.78-2.19 [facility] Comment on above: Performed By: #### B MP, LIVER, FT3, LIPID, PSASC, TSH, DLDL ####[facility] [id number] TSHon 03-15-2018 Thyrotropin Qn 7.705 uIU/mL Critically high 0.470-4.680 Th e [facility] Comment on above: Performed By: #### B MP, LIVER, FT3, LIPID, PSASC, TSH, DLDL ####[facility] Fradegykjs[address] Thyrotropin Qn SEE BELOW Normal The [facility] Comment on above: Result Comment: <0.3 4 UIU/ml HYPERTHYROID 0.34-5.60 UIU/ml EUTHYROID >5.60 UIU/ml HYPOTHYROID Performed By: #### B MP, LIVER, FT3, LIPID, PSASC, TSH, DLDL ####[facility] [id number] TESTOSTERONE, TOTALon 2017 Testosterone [Mass/volume] in Serum or Plasma 314 ng/dL Normal 264-916 [facility] Comment on above: Result Comment: Adul t male reference interval is based on a population ofhealthy nonobese males (BMI <30) between 19 and 39 years old.gus Levy.al. JC 2017,102;0001-4979. PMID: [id number]. Performed By: #### B MP, LIVER, FT3, LIPID, PSASC, TSH, DLDL ####[facility] Ak[address] [place] FREE T3on 01-02-2018 T3 free mass conc 2.98 pg/mL Normal 2.77-5.27 [facility] Comment on above: Performed By: #### B MP, LIVER, FT3, LIPID, PSASC, TSH, DLDL ####[facility] Ccdp[address]hjec10[address] FREE T4on 01-02-2018 T4 free mass conc 0.89 ng/dL Normal 0.78-2.19 The [facility] Comment on above: Performed By: #### B MP, LIVER, FT3, LIPID, PSASC, TSH, DLDL ####[facility] Dzlguhotor8826 [address] TSHon 01-02-2018 Thyrotropin Qn 5.999 uIU/mL Critically high 0.470-4.680 Th e [facility] Comment on above: Performed By: #### B MP, LIVER, FT3, LIPID, PSASC, TSH, DLDL ####[facility] Hclhblteor[address] Thyrotropin Qn SEE BELOW Normal The [facility] Comment on above: Result Comment: <0.3 4 UIU/ml HYPERTHYROID 0.34-5.60 UIU/ml EUTHYROID >5.60 UIU/ml HYPOTHYROID Performed By: #### B MP, LIVER, FT3, LIPID, PSASC, TSH, DLDL ####[facility] Zjstz[address] [place] CBC AUTO DIFFon 09-14-2017 Basophils Auto #/vol (Bld) 0.1 103/ul Normal 0.0-0.1 [facility] Comment on above: Performed By: #### C BC ####[facility] [address] [place], [place] [id number] [place] Basophils/100 WBC Auto (Bld) 0.8 % Normal 0.2-2.0 [facility] Comment on above: Performed By: #### C BC ####[facility] [address] [place], [place] [id number] [place] Eosinophils Auto #/vol (Bld) 0.1 103/ul Normal 0.0-0.7 [facility] Comment on above: Performed By: #### C BC ####[facility] [address] [place], [place] [id number] [place] Eosinophils/100 WBC Auto (Bld) 1.4 % Normal 0.9-7.0 [facility] Comment on above: Performed By: #### C BC ####[facility] Mwwwucthyy[address] [place], [place] [id number] [place] Erythrocyte distribution width Auto Ratio (RBC) 13.2 % Normal 11.0-15.0 [facility] Comment on above: Performed By: #### C BC ####[facility] [address] [place], [place] [id number] [place] Hematocrit Auto Volume Fraction (Bld) 43.7 % Normal 42.0-54.0 [facility] Comment on above: Performed By: #### C BC ####[facility] Jpgebzezlw[address] [place], [place] [id number] [place] Hemoglobin mass conc (Bld) 15.2 g/dL Normal 14.0-18.0 [facility] Comment on above: Performed By: #### C BC ####[facility] Wujb[address]awud[address] [place], [place] [id number] [place] IG # 0.05 10e3/ul Critically high 0.00-0.03 [facility] Comment on above: Performed By: #### C BC ####[facility] [address]zq[address] [place], [place] [id number] [place] IG % 0.7 % Critically high 0.0-0.5 The [facility] Comment on above: Performed By: #### C BC ####[facility] [address] [place] [address] [place] Lymphocytes Auto #/vol (Bld) 1.7 103/ul Normal 1.2-3.8 [facility] Comment on above: Performed By: #### C BC ####[facility] Gidolleicb[address] [place], [place] [id number] [place] Lymphocytes/100 WBC Auto (Bld) 23.7 % Normal 20.5-60.0 The [facility] Comment on above: Performed By: #### C BC ####[facility] [address] [place], [place] [id number] [place] MANUAL DIFF REQ NO Normal The [facility] Comment on above: Performed By: #### C BC ####[facility] [address] [place] [address] [place] MCH Auto Entitic mass (RBC) 33.8 pg Normal 25.9-34.0 The [facility] Comment on above: Performed By: #### C BC ####[facility] [address] [place] [address] [place] MCHC Auto mass conc (RBC) 34.8 g/dL Normal 29.9-35.2 The [facility] Comment on above: Performed By: #### C BC ####[facility] [address] [place], [place] [id number] [place] MCV Auto Entitic volume (RBC) 97.1 fL Critically high 80.0-94.0 The [facility] Comment on above: Performed By: #### C BC ####[facility] [address] [place] [address] [place] Monocytes Auto #/vol (Bld) 0.5 103/ul Normal 0.3-0.8 [facility] Comment on above: Performed By: #### C BC ####[facility] [address] [place] [address] [place] Monocytes/100 WBC Auto (Bld) 7.0 % Normal 1.7-12.0 The [facility] Comment on above: Performed By: #### C BC ####[facility] [address] [place], [place] [address]Vkcmfm [place] Neutrophils Auto #/vol (Bld) 4.7 103/ul Normal 1.4-6.5 The [facility] Comment on above: Performed By: #### C BC ####[facility] N[address]zsx[address]roc[address] [place], [place] [address]Zfpkme [place] Neutrophils/100 WBC Auto (Bld) 66.4 % Normal 43.0-75.0 The [facility] Comment on above: Performed By: #### C BC ####[facility] [address]df[address] [place], [place] [address]Vclvvn [place] Platelet mean volume Auto Entitic volume (Bld) 10.7 fL Normal 9.5-13.5 The [facility] Comment on above: Performed By: #### C BC ####[facility] [address] [place] [id number] [place] Platelets Auto #/vol (Bld) 223 103/ul Normal 150-450 The [facility] Comment on above: Performed By: #### C BC ####[facility] Ux[address]heysmnq[address] [place], [place] [address]Mynvcf [place] RBC Auto #/vol (Bld) 4.50 106/ul Critically low 4.70-6.10 [facility] Comment on above: Performed By: #### C BC ####[facility] [address] [place] [address]Uvtjvy [place] WBC Auto #/vol (Bld) 7.1 103/ul Normal 4.0-11.0 The [facility] Comment on above: Performed By: #### C BC ####[facility] [address] [place] [address]Rhlzes [place] DIRECT LDLon 09-14-2017 Cholesterol in LDL mass conc SEE BELOW Normal The [facility] Comment on above: Result Comment: <100 mg/dl OPTIMAL 100 - 129 mg/dl NEAR OR ABOVE OPTIMAL 130 - 159 mg/dl BORDERLINE HIGH 160 - 189 mg/dl HIGH >190 mg/dl VERY HIGH Performed By: #### B MP, LIVER, FT3, LIPID, PSASC, TSH, DLDL ####[facility] [address] [place] [phone] [place] Cholesterol in LDL mass conc 45 mg/dL Normal The [facility] Comment on above: Performed By: #### B MP, LIVER, FT3, LIPID, PSASC, TSH, DLDL ####[facility] [address] [place] [phone] [place] FREE T3on 09-14-2017 T3 free mass conc 4.33 pg/mL Normal 2.77-5.27 The [facility] Comment on above: Performed By: #### B MP, LIVER, FT3, LIPID, PSASC, TSH, DLDL ####[facility] Yxjagjjfjo1542 [address] [place] FREE T4on 09-14-2017 T4 free mass conc 0.67 ng/dL Critically low 0.78-2.19 The [facility] Comment on above: Performed By: #### F T4 ####[facility] [address] [place] [address] [place] GLYCOHEMOGLOBIN A1Con 2017 Glucose mass conc 108 mg/dL Normal The [facility] Comment on above: Performed By: #### A 1C ####[facility] [address] [place] [address] [place] Hemoglobin A1c/Hemoglobin.total mass fraction (Bld) 5.4 % Normal <=6.0 [facility] Comment on above: Performed By: #### A 1C ####[facility] [address] [place] [address] [place] LIPID PROFILEon 09-14-2017 CHOL-HDL RATIO NORM SEE BELOW Normal The [facility] Comment on above: Result Comment: 3.3 - 4.4 LOW RISK 4.4 - 7.1 AVERAGE RISK 7.1 - 11.0 MODERATE RISK >11.0 HIGH RISK Performed By: #### B MP, LIVER, FT3, LIPID, PSASC, TSH, DLDL ####[facility] Utmmqrdhyy40[address] [place] Cholesterol in HDL mass conc 34 mg/dL Normal The [facility] Comment on above: Result Comment: A po sitive bias may be seen with a triglyceride level over 600 mg/dL Performed By: #### B MP, LIVER, FT3, LIPID, PSASC, TSH, DLDL ####[facility] Rvgkujpyfc4243 [address] [place] Cholesterol in HDL mass conc > or = 60 mg/dl - LOW CARDIOVASCULAR RISK <40 mg/dl - HIGH CARDIOVASCULAR RISK Normal The [facility] Comment on above: Performed By: #### B MP, LIVER, FT3, LIPID, PSASC, TSH, DLDL ####[facility] Wdwgbwivfz6312 [address] [place] Cholesterol mass conc 199 mg/dL Normal <=200 The [facility] Comment on above: Performed By: #### B MP, LIVER, FT3, LIPID, PSASC, TSH, DLDL ####[facility] Qwcexdfmcu7644 [address] [place] Cholesterol.total/Ch olesterol in HDL mass ratio 6.0 {ratio} Normal [facility] Comment on above: Performed By: #### B MP, LIVER, FT3, LIPID, PSASC, TSH, DLDL ####[facility] Eotegqegij[address] Triglyceride mass conc 1177 mg/dL Critically high <=150 The [facility] Comment on above: Performed By: #### B MP, LIVER, FT3, LIPID, PSASC, TSH, DLDL ####[facility] Shoxpubrnd7378 [address] LIVER PROFILEon 09-14-2017 Albumin mass conc 4.6 g/dL Normal 3.5-5.0 [facility] Comment on above: Performed By: #### B MP, LIVER, FT3, LIPID, PSASC, TSH, DLDL ####[facility] Ovunepglpq[address]60 [address] Albumin/Globulin mass ratio 1.5 {ratio} Normal [facility] Comment on above: Performed By: #### B MP, LIVER, FT3, LIPID, PSASC, TSH, DLDL ####[facility] [address] [place] [phone] [place] ALP enzyme act/vol 66 U/L Normal 38-126 The [facility] Comment on above: Performed By: #### B MP, LIVER, FT3, LIPID, PSASC, TSH, DLDL ####[facility] [address] [place] [phone] [place] ALT enzyme act/vol 66 U/L Normal 21-72 [facility] Comment on above: Performed By: #### B MP, LIVER, FT3, LIPID, PSASC, TSH, DLDL ####[facility] Ropdxwooqj9714 [address] [place] AST enzyme act/vol 48 U/L Normal 17-59 The [facility] Comment on above: Performed By: #### B MP, LIVER, FT3, LIPID, PSASC, TSH, DLDL ####[facility] Kjgrsyrcik4[address] [place] BILI, CONJUGATED 0.0 mg/dL Normal 0.0-0.3 [facility] Comment on above: Performed By: #### B MP, LIVER, FT3, LIPID, PSASC, TSH, DLDL ####[facility] Dzvyqmixzq9772 [address] [place] Bilirubin Ql (U) 0.3 mg/dL Normal 0.2-1.3 [facility] Comment on above: Performed By: #### B MP, LIVER, FT3, LIPID, PSASC, TSH, DLDL ####[facility] Jxcnohupan5470 [address] [place] Globulin Calculated mass conc (S) 3.1 g/dL Normal The [facility] Comment on above: Performed By: #### B MP, LIVER, FT3, LIPID, PSASC, TSH, DLDL ####[facility] Qkiojhwiqe3372 [address] [place] Protein mass conc 7.7 g/dL Normal 6.1-8.2 [facility] Comment on above: Performed By: #### B MP, LIVER, FT3, LIPID, PSASC, TSH, DLDL ####[facility] Zpdtvcovuc5740 [address] [place] PROF CHEM 8 (BAS METB)on Anion gap 3 molar conc 10.0 mmol/L Normal [facility] Comment on above: Performed By: #### B MP, LIVER, FT3, LIPID, PSASC, TSH, DLDL ####[facility] Uwgrhfrikj5231 [address] [place] Calcium mass conc 9.6 mg/dL Normal 8.4-10.2 [facility] Comment on above: Performed By: #### B MP, LIVER, FT3, LIPID, PSASC, TSH, DLDL ####[facility] Lqumkotort4676 [address] [place] Chloride molar conc 104 mmol/L Normal 98-107 The [facility] Comment on above: Performed By: #### B MP, LIVER, FT3, LIPID, PSASC, TSH, DLDL ####[facility] Njurawtmon9700 [address] [place] CO2 molar conc 25.0 mmol/L Normal 22.0-30.0 The [facility] Comment on above: Performed By: #### B MP, LIVER, FT3, LIPID, PSASC, TSH, DLDL ####[facility] Bdlydbvizo9721 [address] [place] Creatinine mass conc 0.96 mg/dL Normal 0.66-1.25 [facility] Comment on above: Performed By: #### B MP, LIVER, FT3, LIPID, PSASC, TSH, DLDL ####[facility] Zabkbvrwtr8293 [address] [place] EGFR-AF MONTENEGRIN >60 Normal >=60 [facility] Comment on above: Performed By: #### B MP, LIVER, FT3, LIPID, PSASC, TSH, DLDL ####[facility] Juvmpjuaki9390 [address] [place] EGFR-NON AF MONTENEGRIN >60 Normal >=60 The [facility] Comment on above: Performed By: #### B MP, LIVER, FT3, LIPID, PSASC, TSH, DLDL ####[facility] Psykxnythn6671 [address] [place] Glucose mass conc 97 mg/dL Normal 74-106 [facility] Comment on above: Performed By: #### B MP, LIVER, FT3, LIPID, PSASC, TSH, DLDL ####[facility] Fwggapvcit6737 [address] [place] Potassium molar conc 4.2 mmol/L Normal 3.4-5.0 [facility] Comment on above: Performed By: #### B MP, LIVER, FT3, LIPID, PSASC, TSH, DLDL ####[facility] Piszerippu4198 [address] [place] Sodium molar conc 135 mmol/L Critically low 137-145 [facility] Comment on above: Performed By: #### B MP, LIVER, FT3, LIPID, PSASC, TSH, DLDL ####[facility] Ydziqojnca0[address] [place] Urea nitrogen mass conc 14.0 mg/dL Normal 9.0-20.0 [facility] Comment on above: Performed By: #### B MP, LIVER, FT3, LIPID, PSASC, TSH, DLDL ####[facility] Hvamsvljzz6714 [address] [place] Urea nitrogen/Creatinine mass ratio 14.8 mg/mg Normal [facility] Comment on above: Performed By: #### B MP, LIVER, FT3, LIPID, PSASC, TSH, DLDL ####[facility] Hydkajgaiw[address] [place] TSHon 09-14-2017 Thyrotropin Qn SEE BELOW Normal The [facility] Comment on above: Result Comment: <0.3 4 UIU/ml HYPERTHYROID 0.34-5.60 UIU/ml EUTHYROID >5.60 UIU/ml HYPOTHYROID Performed By: #### B MP, LIVER, FT3, LIPID, PSASC, TSH, DLDL ####[facility] [address] [place], [place] [address]Ddolgr [place] Thyrotropin Qn 6.140 uIU/mL Critically high 0.470-4.680 Th e [facility] Comment on above: Performed By: #### B MP, LIVER, FT3, LIPID, PSASC, TSH, DLDL ####[facility] [address] [place], [place] [address]Bkzvfb [place] Vital Signs Date Time Vital Sign Value Performing Clinician Andreai lity 05-21-2024 09:10-0500 Diastolic blood pressure 80 mm[Hg] Claudio Sarmini [facility] 05-21-2024 09:10-0500 Heart rate 66 /min Claudio Sarmini [facility] 05-21-2024 09:10-0500 Systolic blood pressure 138 mm[Hg] Claudio Sarmini [facility] 05-21-2024 09:08-0500 Blood Pressure Location Claudio Sarmini [facility] 05-21-2024 09:08-0500 Respiratory rate 14 /min Claudio Sarmini [facility] 05-17-2024 08:22-0500 Body height 165.1 cm VarunZentilanorman Jasmin [employer] Work Phone: [facility] 05-17-2024 08:22-0500 Body mass index (BMI) [Ratio] 39.61 kg/m2 [employer]an [employer] Work Phone: [facility] 05-17-2024 08:22-0500 Body weight 107.96 kg Sandra Castellanos DO Work Phone: [facility] 05-17-2024 08:22-0500 Diastolic blood pressure 88 mm[Hg] Sandra Castellanos DO Work Phone: [facility] 05-17-2024 08:22-0500 Heart rate 74 /min Christopher Jasmin DO Work Phone: [facility] 05-17-2024 08:22-0500 Systolic blood pressure 138 mm[Hg] Christopher Jasmin DO Work Phone: [facility] 05-11-2024 09:40-0500 Diastolic blood pressure 77 mm[Hg] Mohamad Mouchli [facility] 05-11-2024 09:40-0500 Heart rate 61 /min Mohamad Mouchli [facility] 05-11-2024 09:40-0500 Respiratory rate 13 /min Mohamad Mouchli [facility] 05-11-2024 09:40-0500 SaO2% (BldA) [Mass fraction] 94 % Mohamad Mouchli [facility] 05-11-2024 09:40-0500 Systolic blood pressure 140 mm[Hg] Mohamad Mouchli [facility] 05-11-2024 09:20-0500 Diastolic blood pressure 83 mm[Hg] Mohamad Mouchli [facility] 05-11-2024 09:20-0500 Heart rate 89 /min Mohamad Mouchli [facility] 05-11-2024 09:20-0500 Respiratory rate 22 /min Mohamad Mouchli [facility] 05-11-2024 09:20-0500 SaO2% (BldA) [Mass fraction] 94 % Mohamad Mouchli [facility] 05-11-2024 09:20-0500 Systolic blood pressure 145 mm[Hg] Mohamad Mouchli [facility] 05-11-2024 09:15-0500 Diastolic blood pressure 79 mm[Hg] Mohamad Mouchli [facility] 05-11-2024 09:15-0500 Heart rate 90 /min Mohamad Mouchli [facility] 05-11-2024 09:15-0500 Respiratory rate 13 /min Mohamad Mouchli [facility] 05-11-2024 09:15-0500 SaO2% (BldA) [Mass fraction] 98 % Mohamad Mouchli [facility] 05-11-2024 09:15-0500 Systolic blood pressure 126 mm[Hg] Mohamad Mouchli [facility] 05-11-2024 09:10-0500 Body temperature 98.42 [degF] Mohamad Mouchli [facility] 05-11-2024 09:05-0500 Respiratory rate 14 /min Mohamad Mouchli [facility] 05-11-2024 08:55-0500 Respiratory rate 22 /min Mohamad Mouchli [facility] 05-11-2024 07:28-0500 Blood Pressure Location Mohamad Mouchli [facility] 05-11-2024 07:28-0500 Body temperature 97.88 [degF] Mohamad Mouchli [facility] 05-07-2024 09:34-0500 Diastolic blood pressure 82 mm[Hg] Ji SIMON [facility] 05-07-2024 09:34-0500 Mean blood pressure 109 mm[Hg] Ji SIMON [facility] 05-07-2024 09:34-0500 Systolic blood pressure 164 mm[Hg] Ji SIMON [facility] 05-07-2024 09:11-0500 Diastolic blood pressure 86 mm[Hg] Ji SIMON [facility] 05-07-2024 09:11-0500 Heart rate 74 /min Ji SIMON [facility] 05-07-2024 09:11-0500 Respiratory rate 16 /min Ji SIMON [facility] 05-07-2024 09:11-0500 Systolic blood pressure 168 mm[Hg] Ji SIMON [facility] 04-24-2024 08:57-0500 Blood Pressure Location Mohamad Mouchli [facility] 04-24-2024 08:57-0500 Diastolic blood pressure 80 mm[Hg] Mohamad Mouchli [facility] 04-24-2024 08:57-0500 Heart rate 71 /min Mohamad Mouchli [facility] 04-24-2024 08:57-0500 Systolic blood pressure 125 mm[Hg] Mohamad Mouchli [facility] Encounters Encounter Date Encounter Type Care Provider Facility Start: 05-25-2024 End: 05-25-2024 [employer]trena Wevebobgay Wilburn OT Work Phone: [facility] Start: 05-25-2024 End: 05-25-2024 Fawn Wevebobgay Wilburn OT Work Phone: [facility] Start: 05-25-2024 End: 05-25-2024 ambulatory Jazlyn Wilburn OT Work Phone: [facility] Comment on above: Joint stiffness of h and, right (Primary Dx); Swelling of right hand Start: 05-22-2024 End: 05-22-2024 Bamboo flowsheet Jazlyn Wilburn OT Work Phone: [facility] Start: 05-22-2024 End: 05-22-2024 Bamboo flowsheet Jazlyn Wilburn OT Work Phone: [facility] Start: 05-22-2024 End: 05-22-2024 ambulatory Jazlyn Wilburn OT Work Phone: [facility] Comment on above: Joint stiffness of h and, right (Primary Dx); Swelling of right hand Start: 05-21-2024 End: 05-21-2024 ambulatory Claudio Talal Sarmini Facility:[facility] Start: 05-21-2024 End: 05-21-2024 Patient encounter procedure Claudio Talal Sarmini [facility] Start: 05-18-2024 End: 05-18-2024 ambulatory Jazlyn Wilburn OT Work Phone: [facility] Comment on above: Joint stiffness of h and, right (Primary Dx); Swelling of right hand Start: 05-17-2024 End: 05-17-2024 Bamboo flowsheet Sandra Castellanos DO Work Phone: [facility] Start: 05-17-2024 End: 05-17-2024 Bamboo flowsheet Sandra Castellanos DO Work Phone: [facility] Start: 05-17-2024 End: 05-17-2024 ambulatory SANDRA CASTELLANOS Not Available Start: 05-17-2024 End: 05-17-2024 Office outpatient new 30 minutes Sandra Castellanos DO Work Phone: [facility] Comment on above: Neuralgia (Primary D x) Start: 05-15-2024 End: 05-15-2024 Bamboo flowsheet Jazlyn Wilburn OT Work Phone: [facility] Start: 05-15-2024 End: 05-15-2024 Bamboo flowsheet Jazlyn Wilburn OT Work Phone: [facility] Start: 05-15-2024 End: 05-15-2024 ambulatory Jazlyn Wilburn OT Work Phone: [facility] Comment on above: Swelling of right bonds nd (Primary Dx); Joint stiffness of hand, right Start: 05-11-2024 End: 05-11-2024 ambulatory Alejandra Hayden Facility:[facility] Start: 05-11-2024 End: 05-11-2024 Patient encounter procedure Alejandra Hayden [facility] Start: 05-07-2024 End: 05-07-2024 ambulatory Alejandra Hayden Facility:[facility] Start: 05-07-2024 End: 05-07-2024 Patient encounter procedure Ji SIMON [facility] Start: 04-27-2024 ambulatory Alejandra Hayden Facilit y:[facility] Start: 04-26-2024 End: 04-26-2024 ambulatory Alejandra Hayden Facility:[facility] Start: 04-26-2024 End: 04-26-2024 Patient encounter procedure Alejandra Hayden [facility] Start: 04-25-2024 End: 04-25-2024 ambulatory Alejandra Hayden Facility:[facility] Start: 04-25-2024 End: 04-25-2024 Lab Drop off Alejandra Hayden [facility] Start: 04-24-2024 End: 04-24-2024 ambulatory Alejandra Hayden Facility:[facility] Start: 04-24-2024 End: 04-24-2024 Patient encounter procedure Alejandra Hayden [facility] Start: 04-24-2024 End: 04-24-2024 ambulatory Alejandra Hayden Facility:[facility] Start: 04-24-2024 End: 04-24-2024 Patient encounter procedure Alejandra Hayden [facility] Start: 04-18-2024 ambulatory [facility] Start: 03-15-2018 End: 03-16-2018 Patient encounter procedure LUIS ANTONIO A IVONERER Facility:[facility] Start: 01-02-2018 End: 01-03-2018 Patient encounter procedure LUIS ANTONIO A IVONERER Facility: Start: 10-26-2017 End: 10-27-2017 Patient encounter procedure LUIS ANTONIO DEL VALLEERER Facility:H1 Start: 09-27-2017 End: 09-28-2017 Patient encounter procedure LUIS ANTONIO DEL VALLEERER Facility:H1 Start: 09-15-2017 Encounter for genera l adult medical examination without abnormal findings [facility] Start: 09-14-2017 End: 09-15-2017 Patient encounter procedure LUIS ANTONIO PATTONR Facility:H1 Encounter for genera l adult medical examination without abnormal findings [facility] Procedures Date Procedure Procedure Detail Performing Clinician Start: 05-11-2024 Colonoscopy Alejandra Hayden Comment on above: colon polyps x2, diverticulosis, Ih Start: 05-11-2024 Esophagogastroduodenoscopy Alejandra huynh Comment on above: esophagitis, gastritis, clean based ulce rs, biopsies for celiac disease Start: 09-14-2017 PSA screening LUIS ANTONIO HERNANDEZ Comment on above: Performed By: #### BMP, LIVER, FT3, LIPI D, PSASC, TSH, DLDL ####[facility] [id number] [place] [id number] Colindres Plan of Treatment Date Care Activity Detail Author Start: 11-19-2024 End: 11-19-2024 Patient encounter procedure 11/19/2024 8:20 AM EDT Office Visit MARY LARA [address] [place] [phone] Sofie Weller NP [address] [place] [phone] MARY LARA Start: 09-07-2024 ambulatory Ambulatory Facility:[facility] Start: 05-25-2024 End: 05-25-2024 ambulatory 05/25/2024 8:00 AM EST Treatment [facility] [address] [facility] [address] [place] [address] Jazlyn Wilburn, OT [address] [place] [address] [facility] Start: 05-22-2024 End: 05-22-2024 ambulatory 05/22/2024 8:00 AM EST Treatment [facility] [address] [facility] [address] [place] [address] Jazlyn Wilburn, OT [address] [place] [address] [facility] Start: 05-18-2024 End: 05-18-2024 ambulatory 05/18/2024 8:00 AM EST Treatment [facility] [address] [facility] [address] [place] [address] Jazlyn Wilburn, OT [address] [place] [address] [facility] Start: 05-17-2024 End: 05-17-2024 Patient encounter procedure 05/17/2024 8:00 AM EST Office Visit MARY LARA [address] [place] [address] Sandra Castellanos DO [address] [place], [place] [id number] MARY LARA Start: 12-11-2023 Influenza vaccination Influenza Vacc ine (#1) [facility] Start: 1970 Screening for malign ant neoplasm of colon [facility] Immunizations Immunization Date Immunization Notes Care Provider Fa cility NEGATED: Highlighted row has not occurred!04-24-2024 influenza virus vaccine, unspecified formulation Alejandra Hayden [facility] Payers Date Payer Category Payer Medicaid (Managed Care) SANDOR MARINELLI [id number] 2024 Unknown [id number] 1970 Unknown [id number] .[id number] 1970 Unknown [id number] 2.0.1.511667.3.579.2 1970 Unknown [id number] 2..1.100015.3.579.2 1970 Unknown [id number] 2.0.1.606742.3.579.2 1970 Unknown [id number] 2.840.1.321617.3.579.2 1970 Unknown [id number] 2.16.840.1.177664.3.579.2 .1970 Unknown [id number] 2.16.840.1.480235.3.579.2 .1970 Unknown [id number] 2.16.840.1.372728.3.579.2 .1970 Unknown [id number] 2.16.840.1.871790.3.579.2 .1970 Unknown [id number] 2.16.840.1.063947.3.579.2 .1970 Unknown [id number] 2.16.840.1.331855.3.579.2 .1258 1970 Unknown [id number] 2.16.840.1.626299.3.579.2 .1258 1970 Unknown [id number] 2.16.840.1.977715.3.579.2 .1258 1970 Unknown [id number] 2.16.840.1.095594.3.579.2 .1258 1970 Unknown [id number] 2.16.840.1.719872.3.579.2 .1258 1970 Unknown [id number] 2.16.840.1.238344.3.579.2 .1970 Unknown [id number] 2.16.840.1.697251.3.579.2 .1970 Unknown [id number] 2.16.840.1.508705.3.579.2 .727 1959 Unknown [id number] Social History Date Type Detail Facility Start: 04-24-2024 End: 05-17-2024 Tobacco smoking status Never smoked tobacco (finding) [facility] Tobacco smoking status Smokeless tobacco user within last 30 days [facility] Start: 05-17-2024 Sex Assigned At Male F [facility] Tobacco smoking stat [facility] Tobacco smoking consumption unknown [facility] Start: 1970 Sex assigned at Not on file [facility] Start: 05-17-2024 Tobacco use and exposure User of smokeless tobacco [facility] History of tobacco use Chews Tobacco [facility] Start: 05-17-2024 Alcoholic beverage intake Current drinker of alcohol (finding) [facility] Start: 05-17-2024 History of Social function [facility] Functional Status Date Assessment Result Facility 05-21-2024 Functional Status N/A [facility] 05-11-2024 Functional Status N/A [facility] 05-07-2024 Functional Status N/A [facility] [place] 04-24-2024 Functional Status N/A [facility] Clinical Notes 05-07-2024 to 05-25-2024 Jazlyn Wilburn, OT - 05/25/2024 8:00 AM Mihir Wilburn, OT - 05/22/2024 8:00 AM Mihir Wilburn, OT - 05/18/2024 8:00 AM ESTSandra Castellanos, DO - 05/17/2024 8:00 AM EST Note Date & Type Note Facility 05-25-2024 History of Presen t illness Narrative Occupational Therapy Occupational Therapy Treatment Visit Patient Name: Tate Encarnacion Today's Date: 05/25/2024 Linked Episodes Type: Episode: Status: Noted: Resolved: Last update: Updated by: Occupational Therapy R hand swelling Active 05/15/2024 05/25/2024 8:02 AM Jazlyn Wilburn OT Comments: Visit number: 07/17 Timed Code Treatment minutes: 60 Total Treatment Time: 60 Subjective Pain: 05/21. Obb, I tried to work the other day [...] all planes 1x15 with fair toleration. 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 Contract release exercsies 1x15. [...] speaking with doctor. documented in this encounter [facility] 05-22-2024 History of Presen t illness Narrative Occupational Therapy Occupational Therapy Treatment Visit Patient Name: Tate Encarnacion Today's Date: 05/22/2024 Linked Episodes Type: Episode: Status: Noted: Resolved: Last update: Updated by: Occupational Therapy R hand swelling Active 05/15/2024 05/22/2024 10:38 AM Jazlyn Wilburn OT Comments: Visit number: 06/16 Timed Code [...] all planes 1x15 with fair toleration. 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 Contract release exercsies 1x15. [...] pain at discharge documented in this encounter [facility] 05-18-2024 History of Presen t illness Narrative Occupational Therapy Occupational Therapy Treatment Visit Patient Name: Tate Encarnacion Today's Date: 05/18/2024 Linked Episodes Type: Episode: Status: Noted: Resolved: Last update: Updated by: Occupational Therapy R hand swelling Active 05/15/2024 05/18/2024 8:05 AM Jazlyn Wilburn OT Comments: Visit number: 05/19 Timed Code [...] all planes 1x15 with fair toleration. 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 Contract release exercsies 1x15. [...] pain at discharge documented in this encounter [facility] 05-17-2024 History of Presen t illness Narrative [...] a BONDS a few times a week. BONDS comes and goes throughout the day. He [...] machine. He did have recent MRI at [facility]. He has never tried any medications for [...] , wrist extensors , wrist flexor , livestock farm manager strength 5/5. LUE Strength deltoid , biceps , triceps , wrist extensors , wrist flexor , livestock farm manager strength 5/5. RLE Strength illopsoas, quadriceps, tibialis [...] reflex 2+ . Huerta's sign negative. Coordination: Ecthbi-ni-jxpt testing and rapid alternating movements are normal [...] and return instructions documented in this encounter [facility] 05-15-2024 History of Presen t illness Narrative [...] R hand. Pt reports he works in [employer] and is unable to use his saw [...] self-care and functional mobility tasks. 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 Precautions: none Objective PRWHE Pain Score: 39/50 [...] composite fist. Strength Strength additional comments: R livestock farm manager strength: 35# compared to L livestock farm manager strength: 115# Special Tests Special tests additional [...] for light strengthening and ROM at discharge. Residential Goals: PRWHE Pain Score < 20/ 50 ( IE:39/50 ) PRWHE Functional Score <25/100 (IE: 68/100) Reduce R hand edema by at least 5 cm in order to reduce pain and improve ROM at discharge. Pt to increase livestock farm manager strength by 10# and LP by 2# pain free at discharge. Pt will be able to use right UE in light daily activities. Pt will benefit from skilled OT to address the above impairments for 2x/week for 4-6 weeks. I hereby deem this POC medically necessary. Please sign below. Date: . documented in this encounter [facility] 05-11-2024 Evaluation + Plan note Extrac deb from: Title:ANES Post-operative Note---General Author: Cody Tay MD. Date:05/11/24 Plan Transfer/Discharge: Transfer/Discharge Discharge when meets criteria ( To home ). Extracted from: Title:1Preop H&P Author:González Sutton MD Date:05/11/24 Impression and Plan Impression: change in bowel habits Plan: -EGD and Colonoscopy Extracted from: Title:ANEHeena Pre-operative Note 2022 Author:Cody Chávez Date:05/11/24 Plan [place] [employer] Anesthesiologists (ASA) physical status classification: Class II. Anesthetic Preoperative Plan: Anesthesia General. Future Appointments Appointment Date:05/21/2024 09:00:00 AM Scheduled Provider:González Sutton MD Location:[facility] Appointment Type:BAD Follow Up Appointment Date:09/07/2024 09:45:00 AM Scheduled Provider:Ji SIMON MD Location:[facility] Appointment Type:URO Office Visit [facility] 01-31-2025 Hospital Discharge instructions Patient [...] help quitting, ask your health careprovider. Take yhge-lob-tzmogzp and prescription medicines only as told by your health care provider. ?Do not use onkk-qiv-pbzeylc medicines in place of prescription medicines unless [...] help quitting, ask your health careprovider. Take rxvu-qrl-oirfcgz and prescription medicines only as told by your health care provider. Do not use rwau-ybh-ymiwpfg medicines in place of prescription medicines unless your health care provider approves. Limit your alcohol and caffeine intake. Keep all follow-up visits. This is important. This information is not intended to replace advice given to you by your health care provider. Make sure you discuss any questions you have with your health care provider. Document Revised: 11/06/2021 Document Reviewed: 11/06/2021 [employer] Patient Education 2023 [employer]. 05/11/2024 09:43:40 Colonoscopy, Care After Surgery Salam [...] unsweetened, w/added ascorbic acid 1 cup 0.5 [place] 1 cup 0.7 Vegetables Cooked Green beans 1 cup 4.0 Carrots 1/2 cup sliced 2.3 Peas 1 cup 8.8 Potato (baked, with skin) 1 medium potato 3.8 Raw [place] (with peel) 1 cucumber 1.5 Lettuce 1 [...] 8.7 Peanuts 1/2 cup 7.9 [facility]. SEEK IMMEDIATE MEDICAL CARE IF: You [...] Nutrient Database for Standard Reference. Available at http://www.Humanco.usda.gov/fnic/foodcomp/search/. Information adapted from: [facility] Patient Information 2009 B[employer]. Traiana 2012 http://www.[employer]/contents/txdcaippstuh-mtyeste-twouth-the-basics 05/11/2024 09:43:38 Colon Polyps Colon Polyps Colon [...] hard liquor (44 mL). General instructions Take ttyk-opb-nugjeij and prescription medicines only as told by [...] provider. Document Revised: 07/16/2020 Document Reviewed: 07/16/2020 [employer] Patient Education 2023 Shopo. 05/11/2024 09:27:02 Gluten-Free Diet for Celiac Disease, [...] are safe to eat. In the [place] [employer] are also required to list common food [...] how a food is processed, ask the district home economics agent. What foods can I eat? Fruits All [...] cereals made from cornmeal or GF grains. [place], rice, and wild rice. Some rice noodles or dick noodles. Arrowroot starch, corn bran, corn flour, corn germ, cornmeal, corn starch, potato flour, potato starch flour, and rice bran. Plain, brown, and sweet rice flours. Rice estonian, soy flour, and tapioca starch. Meats and [...] or meat loaves. Bread-containing products, such as Spanish steak, croquettes, meatballs, and meatloaf. Most tuna canned in vegetable broth. [place] with hydrolyzed vegetable protein (HVP) injected as [...] provider. Document Revised: 02/16/2022 Document Reviewed: 02/16/2022 [employer] Patient Education 2023 Shopo. 05/11/2024 09:26:16 Upper Endoscopy, Adult, Care After [...] what activities are safe for you. Take yxvm-pll-vfagyah and prescription medicines only as told by [...] provider. Document Revised: 07/07/2022 Document Reviewed: 07/07/2022 [employer] Patient Education 2023 [employer]o. 05/11/2024 09:26:10 Esophagitis Esophagitis Esophagitis is inflammation [...] Follow these instructions at home: Medicines Take ifzl-gtg-slvtdvk and prescription medicines only as told by [...] powder, vinegar, hot sauces, and barbecue sauce. ?Cedar fruit juices and citrus fruits, such as oranges, ronald, and limes. ?Tomato-based foods, such as red sauce, chili, salsa, and pizza with red sauce. ?Fried and fatty foods, such as donuts, barbadian fries, potato chips, and high-fat dressings. ?High-fat [...] provider. Document Revised: 10/06/2020 Document Reviewed: 10/06/2020 [employer] Patient Education 2023 Shopo. 05/11/2024 09:25:57 Celiac Disease Celiac Disease Celiac [...] provider. Document Revised: 02/16/2022 Document Reviewed: 02/16/2022 [employer] Patient Education 2023 Shopo. 05/11/2024 09:25:22 Gastritis, Adult Gastritis, Adult Gastritis [...] medicines. These include steroids, antibiotics, and some rhdy-emh-dxhbzgk medicines, such as aspirin or ibuprofen. Having [...] Follow these instructions at home: Medicines Take vbev-rep-wvuxbqo and prescription medicines only as told by [...] provider. Document Revised: 08/01/2021 Document Reviewed: 08/01/2021 [employer] Patient Education 2023 Shopo. [facility] 01-31-2025 NotePatient Education - Text [...] unsweetened, w/added ascorbic acid 1 cup 0.5 [place] 1 cup 0.7 Vegetables Cooked Green beans 1 cup 4.0 Carrots 1/2 cup sliced 2.3 Peas 1 cup 8.8 Potato (baked, with skin) 1 medium potato 3.8 Raw [place] (with peel) 1 cucumber 1.5 Lettuce 1 [...] 8.7 Peanuts 1/2 cup 7.9 Chart from UpToDate 2 (more content not included)...[facility] 05-11-2024 NoteProgress Note-Physician Patient: TATE ENCARNACION Age: 53 years Sex: Male : 1970 Associated Diagnoses: None Author: Cody Tay MD Postoperative Information Postoperative disposition: Postoperative disposition: To PACU. Optimetrix number: Optimetrix number [id number]. Anesthetic utilized: General. Health Status Allergies: Allergic [...] Discharge when meets criteria ( To home ).[facility]:Result Comment: Electronically Signed By: Cody [...] rule out celiac disease Images Procedure images: Rec_hd_video___[id number].jpg Rec_hd_video_T08_50_51_165.jpg Rec_hd_video_08_50_47_094.jpg Rec_hd_video__50_22_021.jpg Rec_hd_video_T08_49_24_244.jpg Rec_hd_video__T08_48_12_320.jpg Rec_hd_video__T08_48_07_481.jpg Rec1_hd_video__T08_47_45_346.jpg Rec1_hd_video__T08_47_21_276.jpg . Post-Procedure Complications: none. Estimated [...] EGD in 3 months to ensure esophagitis [facility]Our [facility] Comment on above:Result Comment: Electronically Signed By: Lesley ROMERO, González Cadena\.br\Date and Time Signed: 05/11/24 09:09 ESTOther Comment: Missing Attachment - attachment storage system not supported [id number] Can be viewed in source system Missing Attachment - attachment storage system not supported [id number] Can be viewed in source systemMissing Attachment - attachment storage system not supported [id number] Can be viewed in source systemMissing Attachment - attachment storage system not supported [id number] Can be viewed in source systemMissing Attachment - attachment storage system not supported [id number] Can be viewed in source systemMissing Attachment - attachment storage system not supported [id number] Can be viewed in source systemMissing Attachment - attachment storage system not supported [id number] Can be viewed in source systemMissing Attachment - attachment storage system not supported [id number] Can be viewed in source system Missing Attachment - attachment storage system not supported [id number] Can be viewed in source [id number] NoteEndoscopic Procedure Report - Other Patient: TATE [...] qAM, # 75 gram, Refills(s) 3, Pharmacy: [facility], 165, cm, 05/07/24 9:19:00 EST, Height/Length Dosing, 108.1, kg, 05/07/24 9:19:00 EST, Weight Dosing Questran 4 g/9 g oral powder: = 1 packet(s), Oral, BID, # 60 EA, Refills(s) 0, Pharmacy: [facility], 170, cm, 04/24/24 8:57:00 EST, Height/Length Dosing, 108.6, kg, 04/24/24 8:57:00 EST, Weight Dosing Zenpep 60,000 units-189,600 units-252,600 units oral delayed release capsule: See Instructions, 300cap(s), Refill(s) 3, Take 2 caps with each meal and 1 with each snack, [facility], 170, cm, 04/24/24 8:57:00 EST, Height/Length Dosing, 108.6, kg, 04/24/24 8:57:00 EST, Weight Dosing tadalafil 20 mg Tab: 20 mg = 1 tab(s), Oral, As Directed, PRN for erectile dysfunction, Pt to take one tab 1 hour prior to sexual activity. Do not exceed 20mg in 24 hours., # 30 tab(s), Refills(s) 0,Pharmacy: [facility], 165, cm, 05/07/24 9:19:00 EST, Hei... [...] Normal examined terminal ileum Images Procedure images: Rec1_hd_video_2025_01_31T09_[id number].jpg Rec1_hd_video__T09_12_57_370.jpg Rec1_hd_video__T09_11_15_539.jpg Rec1_hd_video__T09_06_07_071.jpg Rec1_hd_video__T09__04_714.jpg Rec1_hd_video__T09__57_958.jpg Rec1_hd_video____44_461.jpg Rec1_hd_video__T__17_731.jpg . Post-Procedure Complications: none. Estimated blood loss: [...] 5. Otherwise normal colo (more content not included)...[facility]Comment on [facility]:Result Comment: Electronically Signed By: Lesley ROMERO, González Cadena\.br\Date and Time Signed: 05/11/24 09:07 ESTOther Comment: Missing Attachment - attachment storage system not supported [id number] Can be viewed in source systemMissing Attachment - attachment storage system not supported [id number] Can be viewed insource systemMissing Attachment - attachment storage system not supported [id number] Can be viewed in source systemMissing Attachment - attachment storage system not supported [id number] Can be viewed in so urce systemMissing Attachment - attachment storage system not supported [id number] Can be viewed in source systemMissing Attachment - attachment storage system not supported [id number] Can be viewed in source systemMissing Attachment - attachment storage system not supported [id number] Can be viewed in source systemMissing Attachment - attachment storage system not supported 8841675 Can be viewed in source [id number] NoteHistory and Physical Patient: TATE ENCARNACION Age: [...] qAM, # 75 gram, Refills(s) 3, Pharmacy: [facility], 165, cm, 05/07/24 9:19:00 EST, Height/Length Dosing, 108.1, kg, 05/07/24 9:19:00 EST, Weight Dosing Questran 4 g/9 g oral powder: = 1 packet(s), Oral, BID, # 60 EA, Refills(s) 0, Pharmacy: [facility], 170, cm, 04/24/24 8:57:00 EST, Height/Length Dosing, 108.6, kg, 04/24/24 8:57:00 EST, Weight Dosing Zenpep 60,000 units-189,600 units-252,600 units oral delayed release capsule: See Instructions, 300cap(s), Refill(s) 3, Take 2 caps with each meal and 1 with each snack, [facility], 170, cm, 04/24/24 8:57:00 EST, Height/Length Dosing, 108.6, kg, 04/24/24 8:57:00 EST, Weight Dosing tadalafil 20 mg Tab: 20 mg = 1 tab(s), Oral, As Directed, PRN for erectile dysfunction, Pt to take one tab 1 hour prior to sexual activity. Do not exceed 20mg in 24 hours., # 30 tab(s), Refills(s) 0,Pharmacy: [facility], 165, cm, 05/07/24 9:19:00 EST, Logan... Documented Medications Documented Prozac: 20 mg, Oral, [...] hypertension (high blood pressure) / SNOMED CT 12988703 / Confirmed Thyroid function tests abnormal / SNOMED CT 726407545 / Confirmed Anemia of chronic disorder (low iron) / SNOMED CT 926011447 / Confirmed Bloating / SNOMED CT 860788457 / Confirmed Black stool / SNOMED CT 938861973 / Confirmed Chronic GERD / SNOMED CT 412152597 / Confirmed Decreased sexual desire / SNOMED CT 371218927 / Confirmed Alcohol drinker / SNOMED CT 892644550 / Confirmed Stress-related physiological response affecting medical condition / SNOMED CT 76448893 / Confirmed High triglycerides / SNOMED CT 715866156 / Confirmed Obesity due to excess calories / SNOMED CT 8806036309 / Confirmed ED (erectile dysfunction) / SNOMED CT 5733893161 / Confirmed Hypogonadism male / SNOMED CT 04777608 / Confirmed Screening PSA (prostate specific antigen) / SNOMED CT 278812387 / Confirmed BPH with urinary obstruction / SNOMED CT 4786797059 / Confirmed Acquired buried penis / SNOMED CT 346966491 / Confirmed Histories Past Medical History: No [...] Last Charted Temp Temporal 36.6 DegC (MAY 11:) Heart Rate Monitored 73 bpm (MAY 11:) Resp Rate 20 br/min (MAY 11:) SBP H 141 mmHg (MAY 11:) DBP H 93 mmHg (MAY 11:) Weight 108.6 kg (MAY 11:18) BMI 37.58 (MAY 11:18) General: in Nad Abdomen: Soft, NTND Impression and Plan Impression: change in bowel habits Plan: -EGD and ColonoscopyOur [facility] Of Mercy HospitalComment on above:Result Comment: Electronically Signed By: Lesley ROMERO, González Cadena\.br\Date and Time Signed: 05/11/24 08:34 [id number] NoteProgress Note-Physician Patient: TATE ENCARNACION Age: 53 years Sex: Male : 1970 Associated Diagnoses: None Author: Cody Tay MD Preoperative Information Anesthesia Preop Info: Time patient [...] qAM, # 75 gram, Refills(s) 3, Pharmacy: [facility], 165, cm, 05/07/24 9:19:00 EST, Height/Length Dosing, 108.1, kg, 05/07/24 9:19:00 EST, Weight Dosing Questran 4 g/9 g oral powder: = 1 packet(s), Oral, BID, # 60 EA, Refills(s) 0, Pharmacy: [facility], 170, cm, 04/24/24 8:57:00 EST, Height/Length Dosing, 108.6, kg, 04/24/24 8:57:00 EST, Weight Dosing Zenpep 60,000 units-189,600 units-252,600 units oral delayed release capsule: See Instructions, 300cap(s), Refill(s) 3, Take 2 caps with each meal and 1 with each snack, [facility], 170, cm, 04/24/24 8:57:00 EST, Height/Length Dosing, 108.6, kg, 04/24/24 8:57:00 EST, Weight Dosing tadalafil 20 mg Tab: 20 mg = 1 tab(s), Oral, As Directed, PRN for erectile dysfunction, Pt to take one tab 1 hour prior to sexual activity. Do not exceed 20mg in 24 hours., # 30 tab(s), Refills(s) 0,Pharmacy: [facility], 165, cm, 05/07/24 9:19:00 EST, Hei... [...] Problems Acquired buried penis / SNOMED CT 428125628 / Confirmed Alcohol drinker / SNOMED CT 527554541 / Confirmed Anemia of chronic disorder (low iron) / SNOMED CT 104216490 / Confirmed Benign hypertension (high blood pressure) / SNOMED CT 97044478 / Confirmed Black stool / SNOMED CT 944473450 / Confirmed Bloating / SNOMED CT 313122630 / Confirmed BPH with urinary obstruction / SNOMED CT 2502374468 / Confirmed Chronic GERD / SNOMED CT 218221493 / Confirmed Decreased sexual desire / SNOMED CT 523424803 / Confirmed ED (erectile dysfunction) / SNOMED CT 5152511190 / Confirmed High triglycerides / SNOMED CT 824122891 / Confirmed Hypogonadism male / SNOMED CT 06976730 / Confirmed Obesity due to excess calories / SNOMED CT 9090418788 / Confirmed Screening PSA (prostate specific antigen) / SNOMED CT 827234973 / Confirmed Stress-related physiological response affecting medical condition / SNOMED CT 11400954 / Confirmed Thyroid function tests abnormal / SNOMED CT 647973752 / Confirmed Canceled: Low libido / SNOMED CT 529767900, Active Problems (16) Acquired buried penis Alcohol [...] have been selected or (more content not included)...[facility] HospitalComment on above:Result Comment: Electronically Signed By: Cody Tay MD\.br\Date and Time Signed: 05/11/24 08:21 [id number] Hospital Discharge instructions Patient Education 05/07/2024 09:53:04 [...] therapy. Follow these instructions at home: Take peny-quo-glfidwy and prescription medicines only as told by [...] provider. Document Revised: 11/27/2020 Document Reviewed: 11/27/2020 [employer] Patient Education 2023 [employer]. 05/07/2024 09:39:27 Erectile Dysfunction Erectile Dysfunction Erectile [...] Follow these instructions at home: Medicines Take oucj-hmf-klzgbgf and prescription medicines only as told by [...] provider. Document Revised: 06/24/2021 Document Reviewed: 06/24/2021 [employer] Patient Education 2023 [employer]. Follow Up Care 04/27/2024 13:04:43 With:AURORA ROMERO, Ji Be, URL Address: [facility] [address] [place] [address]- [phone] When: Unknown Comments:4 mos w/ PSA and T level [facility] Marco 01-27-2025 NotePatient Education Urology Hypogonadism, Male [...] Follow these instructions at home: ??? Take fiaz-qmg-djztfry and prescription medicines only as told by [...] sure you discuss any (more content not included)...[facility] Future Appointments Appointment Date:05/04/2024 09:30:00 AM Scheduled Provider: Location:[facility] Appointment Type:Surgery FT Appointment Date:05/11/2024 09:00:00 AM Scheduled Provider:Alejandra Hayden MD Location:[facility] Appointment Type:[facility] Follow Up Future Scheduled Tests Laboratory* Pancreatic Elastase, Fecal 04/24/24 * Pancreatic Elastase, Fecal 04/24/24 * Calprotectin, Fecal 04/24/24 Radiology* US Abdomen, Limited 04/24/24 [facility] Evaluation + Plan note Future Appointments Appointment Date:05/04/2024 09:30:00 AM Scheduled Provider: Location:[facility] Appointment Type:Surgery FT Appointment Date:05/11/2024 09:00:00 AM Scheduled Provider:Alejandra Hayden MD Location:[facility] Appointment Type:[facility] Follow Up Diagnostic Tests Pending * Celiac Disease Comprehensive 04/24/24 * Testosterone Level Total 04/24/24 Future Scheduled Tests Laboratory* Pancreatic Elastase, Fecal 04/24/24 * Pancreatic Elastase, Fecal 04/24/24 * Calprotectin, Fecal 04/24/24 Radiology* US Abdomen, Limited 04/24/24 [facility] Evaluation + Plan note Future Appointments Appointment Date:04/26/2024 08:30:00 AM Scheduled Provider: Location:.[facility] Appointment Type:US Abdominal/Pelvis (FT) Appointment Date:05/04/2024 09:30:00 AM Scheduled Provider: Location:[facility] Appointment Type:Surgery FT Appointment Date:05/11/2024 09:00:00 AM Scheduled Provider:Alejandra Hayden MD Location:[facility] Appointment Type:[facility] Follow Up Diagnostic Tests Pending * Calprotectin, Fecal 04/25/24 * Pancreatic Elastase, Fecal 04/25/24 Future Scheduled Tests Radiology* US Abdomen, Limited 04/26/24 [facility] Evaluation + Plan note Future Appointments Appointment Date:05/04/2024 09:30:00 AM Scheduled Provider: Location:[facility] Appointment Type:Surgery FT Appointment Date:05/11/2024 09:00:00 AM Scheduled Provider:Alejandra Hayden MD Location:[facility] Appointment Type:BAD Follow Up [facility] evaluation + Plan note Future Appointments Appointment Date:05/11/2024 08:15:00 AM Scheduled Provider: Location:[facility] Appointment Type:Surgery FT Appointment Date:05/21/2024 09:00:00 AM Scheduled Provider:González Sutton MD Location:[facility] Appointment Type:BAD Follow Up Appointment Date:09/07/2024 09:45:00 AM Scheduled Provider:Ji SIMON MD Location:[facility] Appointment Type:URO Office Visit Diagnostic Tests Pending * Testosterone Level Total 05/07/24 * PSA Screen, Total 05/07/24 [facility] evaluation + Plan note Future Appointments Appointment Date:09/07/2024 09:45:00 AM Scheduled Provider:Ji SIMON MD Location:[facility] Appointment Type:URO Office Visit [facility] Evaluation note* Diagnosis Swelling of right hand- Primary Joint stiffness of hand, right documented in this encounter [facility]* Diagnosis Neuralgia- Primary Unspecified neuralgia, neuritis, and radiculitis documented in this encounter [facility]* Diagnosis Joint stiffness of hand, right- Primary Swelling of right hand documented in this encounter [facility]* Diagnosis Joint stiffness of hand, right- Primary Swelling of right hand [facility] Narrative No data available for this section [facility] Discharge instructions No data available for this section [facility] Progress note No data available for this section [facility] Reason for visit Narrative* Rehabilitation - Outpatient (Routine) - Authorized Specialty Diagnoses / Procedures Referred By Briseida rahman Referred To Contact Occupational Therapy / Physical Therapy Diagnoses Swelling of R hand Procedures [place] OCCUPATIONAL THERAPY EVALUATION [place] OFFICE/OUTPATIENT [facility] MDM 60 MINUTES Genoveva Cartagena MD [address] [place] [address] [place] [address] Phone: tel: fax: Jazlyn Wilburn, OT [address] [place] [address] Phone: tel: fax: Referral ID Status Reason Start Date Expiration Date V isits Requested Visits Authorized [id number] Authorized 05/15/2024 11/11/2024 30 30 [facility] for visit Narrative* Rehabilitation - Outpatient (Routine) - Authorized Specialty Diagnoses / Procedures Referred By Briseida rahman Referred To Contact Occupational Therapy / Physical Therapy Diagnoses Swelling of R hand Procedures [place] OCCUPATIONAL THERAPY EVALUATION [place] OFFICE/OUTPATIENT [facility] MDM 60 MINUTES Genoveva Cartagena MD [address] [place] [address] [place] [address] Phone: tel: fax: Jazlyn Wilburn, OT [address] [place] [address] Phone: tel: fax: Referral ID Status Reason Start Date Expiration Date V isits Requested Visits Authorized [id number] Authorized 05/15/2024 04/10/2025 30 30 [facility] [...] content) DATE CREATED AUTHOR 03/21/2018 [facility] DATE CREATED AUTHOR AUTHOR'S ORGANIZ ATION 04/27/2024 [facility] DATE CREATED AUTHOR AUTHOR'S ORGANIZ ATION 04/28/2024 [facility] DATE CREATED AUTHOR AUTHOR'S ORGANIZ ATION 04/30/2024 [facility] DATE CREATED AUTHOR AUTHOR'S ORGANIZ ATION 05/13/2024 [facility] DATE CREATED AUTHOR AUTHOR'S ORGANIZ ATION 05/18/2024 [facility] DATE CREATED AUTHOR AUTHOR'S ORGANIZ ATION 05/19/2024 [facility] DATE CREATED AUTHOR AUTHOR'S ORGANIZ ATION 05/20/2024 [facility] DATE CREATED AUTHOR AUTHOR'S ORGANIZ ATION 05/27/2024 [facility] DATE CREATED AUTHOR AUTHOR'S ORGANIZ ATION 06/06/2024 [facility] Patient Care team informatio n (unrecognized section and content) Epic Ambulatory Analyst Relationship Specialty Start Date End Date Unallocated, Jose Hough MD [facility] [place] [address] PCP - General Family Medicine 04/19/24 Kira Garrison MD [address] [place] [phone] Referring Physician Family Medicine 04/19/24 Epic Ambulatory Analyst Relationship Specialty Start Date End Date Unallocated, Jose Hough MD [facility] [place] [address] PCP - General Family Medicine 04/19/24 Kira Garrison MD [address] [place] [address] Referring Physician Family Medicine 04/19/24 Epic Ambulatory Analyst Relationship Specialty Start Date End Date Unallocated, Jose Hough MD [address] [place], [place] [address] [address] PCP - General Family Medicine 04/19/24 Kira Garrison MD [address] [place] [address] Referring Physician Family Medicine 04/19/24 Sanrda Castellanos DO [address] [address] Referring Physician Neurology 05/17/24 Epic Ambulatory Analyst Relationship Specialty Start Date End Date Unallocated, Jose Hough MD [facility] [place] [address] PCP - General Family Medicine 04/19/24 Kira Garrison MD [address] [place] [phone] Referring Physician Family Medicine 04/19/24 Sandra Castellanos DO [address] [place] [address] Referring Physician Neurology 05/17/24 Epic Ambulatory Analyst Relationship Specialty Start Date End Date Unallocated, Kelbys MD Gianluca [address] [place] [phone] PCP - General Family Medicine 04/19/24 Kira Garrison MD [address] [place], [place] [phone] Referring Physician Family Medicine 04/19/24 Sandra Castellanos DO [address] [place] [address] Referring Physician Neurology 05/17/24 Epic Ambulatory Analyst Relationship Specialty Start Date End Date Unallocated, Jose Hough MD [address] [place] [phone] PCP - General Family Medicine 04/19/24 Kira Garrison MD [address] [place], [place] [phone] Referring Physician Family Medicine 04/19/24 Sandra Castellanos DO [address] [place] [phone] Referring Physician Neurology 05/17/24 Reason for Visit (unrecogniz ed section and content) Reason Comments Migraine Specialty Diagnoses / Procedures Referred By Briseida t Referred To Contact Neurology Diagnoses Migraine, unspecified, not intractable, without status migrainosus ([facility]) Procedures [place] OFFICE/OUTPATIENT NEW LOW MDM 30 MINUTES Kira Garrison MD [address] [place] [phone] Phone: tel: fax: Sandra Castellanos [address] [place] [phone] Phone: tel: fax: Referral ID Status Reason Start Date Expiration Date V isits Requested Visits Authorized [id number] Closed Consult and Treat 04/18/2024 10/15/2024 1 [...] BE BASED ON THE PRIMARY CLINICAL RECORDS. [facility] [employer] [facility]. provides no warranty or guarantee of the accuracy or completeness of information in this document.
== END 2024-06-20 10:52 | disposition home or self-care (01) ==
LOC: CARD 10:51
PROVIDERS: PCP Nurse Practitioner Family; Visit Provider Nurse Practitioner Family
DX: R53.83 Other fatigue (principal)
CPT/HCPCS: 93017

== ENCOUNTER 2024-08-11 10:13 | Outpatient (OUT) | payer OTHER, SELFPAY ==
[2024-08-11 11:50] LABS: Prostate Specific Antigen Scrn 0.44 ng/mL (<=4.00)
[2024-08-12 07:08] LABS: Testosterone 168 ng/dL (264-916)
== END 2024-08-11 10:14 | disposition home or self-care (01) ==
LOC: LAB 10:16
PROVIDERS: PCP Nurse Practitioner Family; Visit Provider Urology
DX: E29.1 Testicular hypofunction (principal); Z12.5 Encounter for screening for malignant neoplasm of prostate
CPT/HCPCS: 36415; 84403; G0103

== ENCOUNTER 2024-08-11 10:20 | Outpatient (OUT) | payer OTHER, SELFPAY ==
[2024-08-11 10:38] LABS: Basophils Absolute Auto 0.1 10^3/uL (0.0-0.1); Basophils Percent Auto 1.1 % (0.2-2.0); Eosinophils Absolute Auto 0.2 10^3/uL (0.0-0.7); Eosinophils Percent Auto 3.2 % (0.9-7.0); Hematocrit 41.3 % (42.0-54.0); Hemoglobin 14.5 g/dL (14.0-18.0); Immature Granulocytes Abs Auto 0.01 10^3/uL (0.00-0.03); Immature Granulocytes Pct Auto 0.2 % (0.0-0.5); Lymphocytes Percent Auto 42.1 % (20.5-60.0); Mean Corpuscular HGB Conc 35.1 g/dL (29.9-35.2); Mean Corpuscular Hemoglobin 34.8 pg (25.9-34.0); Monocytes Absolute Auto 0.3 10^3/uL (0.3-0.8); Monocytes Percent Auto 7.3 % (1.7-12.0); Neutrophils Absolute Auto 2.2 10^3/uL (1.4-6.5); Neutrophils Percent Auto 46.1 % (43.0-75.0); Platelet Count 207 10^3/uL (150-450); Red Blood Count 4.17 10^6/uL (4.70-6.10); Red Cell Distribution Width 14.6 % (11.0-15.0); White Blood Count 4.7 10^3/uL (4.0-11.0)
[2024-08-11 11:49] LABS: Chol HDL Ratio 5.8; Cholesterol 215 mg/dL (<=200); Free T3 2.47 pg/mL (2.18-3.98); HDL Cholesterol 37 mg/dL (40-60); Thyroid Stimulating Hormone 24.729 uIU/mL (0.358-3.740); Triglycerides 1318 mg/dL (<=150); VLDL CHOLESTEROL 263.6 mg/dL
[2024-08-11 11:59] LABS: LDL Cholesterol Direct 50 mg/dL
== END 2024-08-11 10:21 | disposition home or self-care (01) ==
LOC: LAB 10:21
PROVIDERS: PCP Nurse Practitioner Family; Visit Provider Nurse Practitioner Family
DX: Z00.00 Encounter for general adult medical examination without abnormal findings (principal); Z12.31 Encounter for screening mammogram for malignant neoplasm of breast; E29.1 Testicular hypofunction; R53.83 Other fatigue; E03.9 Hypothyroidism, unspecified; Z80.8 Family history of malignant neoplasm of other organs or systems; Z12.5 Encounter for screening for malignant neoplasm of prostate
CPT/HCPCS: 36415; 80061; 83721; 84403; 84436; 84443; 84481; 85025; G0103

== ENCOUNTER 2024-08-31 07:59 | Outpatient (OUT) | payer OTHER, SELFPAY ==
--- OUTSIDE RECORDS SUMMARY | 2024-05-14 04:40 | XMS_ITS ---
Author Organization [facility] Address [address] [place] [address] Care Team Providers Care Mix Mill Tender Name Role Phone John Cartagena Unavailable [phone] Kira Heredia Unavailable Unavailable Allergies No Known [...] 05/14/2024 Encounters Encounter Location Date Provider Diagnosis [facility] Office [address] [place] [address] [place] [address] 05/14/2024 John Cartagena Other bursitis of knee, [...] Up: 4 Weeks, Reason: Progress Notes * TAET ENCARNACIONDOB: 1 (53 yo M)Acc No.[id number]:05/14/2024 Patient: TATE PAVON Provider: Heena Cartagena MD :1970 A ge:53 Y S ex:Male Date:05/14/2024 Address:[address] [place] [address] , [place], [id number] Subjective: * Chief Complaints: * L EFT KNEE PAIN * HPI: [facility] Follow Up Information: Patient presents today [...] He reports history of borderline diabetes. G [facility] Info per Patient Report: Have you seen another doctor in this practice? N o. S lucretia affected is L eft. J oint or body part affected is w rist/hand, knee. P ain occurred i njury. W ork related: N o. M otor vehicle accident: N o. T hird republican responsibility: N o. Q uality of pain [...] 05/14/2024 Generated for Keisha garcia/Claribel/Renan on: 0 08/31/2024 08:01 AM EDT History and Physical Notes * [...] doctor in this pra ctice? No Third republican responsibility: No Have you been seen by [...]
--- OUTSIDE RECORDS SUMMARY | 2024-05-25 07:45 | XMS_ITS ---
Author Organization [facility] Address [address] [place] [address] Care Team Providers Care Reservations Manager Name Role Phone John Cartagena Unavailable [phone] Kira Heredia Unavailable Unavailable Encounters Encounter Location Date Provider Diagnosis [facility] [address] [place] [address] 05/25/2024 John Cartagena Plan Of Treatment No Information Progress Notes * TATE ENCARNACIONDOB: 1 (53 yo M)Acc No.[id number]:05/25/2024 Patient: Rafael LANGETATE MCKNIGHT :1970 A ge:53 Y S ex:Male Address:[address] [place] [address], [phone] * true * Date: Generated for Maddyi ng/Fapamelag/eTransmitting on: 0 08/31/2024 08:00 AM EDT
--- OUTSIDE RECORDS SUMMARY | 2024-05-28 05:50 | XMS_ITS ---
Author Organization [facility] Address [address] [place] [address] Care Team Providers Care Child Care Education Coordinator Name Role Phone John Cartagena Unavailable [phone] Kira Heredia Unavailable Unavailable Zita Clark Unavailable [phone] Allergies No Known Allergies Results Component Value Reference Range Notes MRI : Hand W/O Contrast [facility] t - [id number] Reviewed date:08/29/2024 09:42:38 AM Interpretation: Performing Lab: Notes/Report: Reason For Referral Reason APPROVED.........PLE ASE OBTAIN AUTHORIZATION FOR MRI RIGHT HAND Diagnosis 1 Swelling of right bonds nd (M79.89) Referral Organization [facility] Referring Provider First Name John Referring Provider Last Name Cartagena Referring Provider Speciality Orthopedic Surgery [facility] Referred Address [place], [place], Procedure 1 MRI Upper Ext NON-Cindy int w/o Dye ([id number]) General Notes Marie Morris 025 02:49:42 PM >NEED DICTATIONAlexandra Amy 05/28/2024 02:52:50 PM >PENDING PATTEN [facility] # [id number] CLINICAL ATTACHED.............NEED DICTATION TO UPLOADSukhjinder Kimberly 05/28/2024 03:23:43 PM >Printed for [place] Ahumada Monica 05/29/2024 12:14:20 PM >DONEAlexandra Amy 05/29/2024 12:32:29 PM >CLINICAL UPLOADEDAlexandra Amy 05/30/2024 07:51:05 AM >STILL PENDING, Marie Morris 05/31/2024 07:20:27 AM >APPROVED PER SANDOR AUTH #[id number] VALID 05/28/2024-08/26/2024 COPY IN CHART MA NOTIFIED REF FAXED TO Sukhjinder LARA Kimberly 05/31/2024 07:55:56 AM > Faxed order to Fabian Referral Priority Routine REASON FOR VISIT LEFT KNEE BURSITIS, increased pain in hand Medications Medication SIG (Take, Route, Fr equency, Duration) Notes Start Date End Date Status levothyroxine Active FLUoxetine Active Medrol Dosepak 4 mg as directed 05/28/2024 Active Mobic 15 mg 1 tab(s) orally once a day for 45 days 05/14/2024 Active Vitamin D3 Active Vascepa Active Social History Tobacco Use: Social History Observation Description Date Details (start date - stop date) Current Smoker NA - NA AUDIT-C (Standard) Question Answer Notes Did you have a drink contain ing alcohol in the past year? Yes How often did you have a dri nk containing alcohol in the past year? 2 to 4 times a month (2 points) How many drinks did you have on a typical day when you were drinking in the past year? 3 or 4 drinks (1 point) How often did you have six o r more drinks on one occasion in the past year? Never (0 point) Points 3 Interpretation Negative Tobacco Control (Standard) Question Answer Notes Tobacco use: Current smoker Problems Problem Type SNOMED Code ICD Code Onset Dates Problem Status W/U Status Risk Notes Problem [id number] Swelling of right hand (M79.89) Active confirmed Problem Fall, initial encounter (W19.XXXA) Active confirmed Encounters Encounter Location Date Provider Diagnosis [facility] Office [address] [facility] [address] [place] [address] [place] [address] 05/28/2024 [facility] Swelling of right hand M79.89 and Fall, initial encounter W19.XXXA Assessments Encounter Date Diagnosis (ICD Code) Assessment Notes Treatment Notes Treatment Clinical Notes Section Notes 05/28/2024 Swelling of right hand (ICD-10 - M79.89) Right hand pain and swelling after fall 05/28/2024 Fall, initial encounter (ICD-10 - W19.XXXA) Right hand pain and swelling after fall 05/28/2024 Other Today I reviewe d patient's lab results with him and his MARY is negative, ESR WNL, CRP WNL, HLA-B27 negative, and rheumatoid factor WNL. Given his lack of improvement and persistent swelling and pain in his hand pain with rest, NSAIDs, and physical therapy I have ordered an MRI of the right hand. I will also give him a Medrol Dosepak. We will see him back in the office after imaging is obtained to review and offer further recommendations. Right hand pain and swelling after fall Plan Of Treatment Medication Medication Name Sig Start Date Stop Date Notes Medrol Dosepak 4 mg as directed 05/28/2024 Treatment Notes Assessment Notes Other Today I reviewed erika mcdonough's lab results with him and his MARY is negative, ESR WNL, CRP WNL, HLA-B27 negative, and rheumatoid factor WNL. Given his lack of improvement and persistent swelling and pain in his hand pain with rest, NSAIDs, and physical therapy I have ordered an MRI of the right hand. I will also give him a Medrol Dosepak. We will see him back in the office after imaging is obtained to review and offer further recommendations. Referrals Referral Date Details 05/28/2024 05/28/2024, APPROVED .........PLEASE OBTAIN AUTHORIZATION FOR MRI RIGHT HAND, IAN Lara Next Appt Details Follow Up: AFTER MRI, Reason : Progress Notes * TATE ENCARNACIONDOB: 1 (53 yo M)Acc No.[id number]:05/28/2024 Patient: Rafael JESUS TATE Provider: ELYSE Harris :1970 A ge:53 Y S ex:Male Date:05/28/2024 Address:[address] [place], [place] [id number] Subjective: * Chief Complaints: * L EFT KNEE BURSITIS, increased pain in hand * HPI: G eneral Follow Up Information: Patient returns the office today for recheck of his right hand pain and swelling and left knee prepatellar bursitis after a fall directly onto his left knee and hand in February and March. Patient reports that his left knee pain and swelling have resolved. He continues to have diffuse right hand pain and swelling. At his last appointment we had given him a prescription for physical therapy that he has been attending with minimal improvement in pain or swelling. We also ordered labs given his polyarthralgias and started him on Mobic. 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 * Medical History: * Surgical History: * Social History: A MANUEL-C (Standard) D id you have a drink containing alcohol in the past year? Y es,?How often did you have a drink containing alcohol in the past year? 2 to 4 times a month (2 points), H ow many drinks did you have on a typical day when you were drinking in the past year? 3 or 4 drinks (1 point), H ow often did you have six or more drinks on one occasion in the past year? N ever (0 point), P oints 3 , I nterpretation N egative. T obacco Control (Standard) T obacco use: C urrent smoker. * Medications: T akingMobic 15 mg tablet 1 tab(s) orally once a day levothyroxine FLUoxetine Vascepa Vitamin D3 Taking Mobic 15 mg tablet 1 tab(s) orally once a day Taking levothyroxine Taking FLUoxetine Taking Vascepa Taking Vitamin D3 * Allergies: N .K.D.A.no[Allergies Verified] Objective: * Vitals: * Examination: G eneral examination: O n exam patient in no distress, age-appropriate, alert and oriented x 3. On inspection of the left knee there is no prepatellar swelling or erythema. He has right hand has some mild swelling diffusely. Patient can make a loose fist. There is no tenderness with palpation of the hand. Negative Phalen's and median compression. Sensation intact distally. 2+ radial pulse palpated. Brisk capillary refill all fingers and thumb. Assessment: * Assessment: 1. S welling of right hand - M79.89 (Primary) 2 . F all, initial encounter - W19.XXXA Right hand pain and swelling after fall Plan: * Treatment: 2. O thers Notes: Today I reviewed patient's lab results with him and his MARY is negative, ESR WNL, CRP WNL, HLA-B27 negative, and rheumatoid factor WNL. Given his lack of improvement and persistent swelling and pain in his hand pain with rest, NSAIDs, and physical therapy I have ordered an MRI of the right hand. I will also give him a Medrol Dosepak. We will see him back in the office after imaging is obtained to review and offer further recommendations. * Procedure Codes: * Follow Up: A FTER MRI Forms: * Images: * Sign off status: Completed true * Provider: ELYSE Harris Date: 0 05/28/2024 Generated for Keisha garcia/Claribel/Renan on: 0 08/31/2024 08:00 AM EDT History and Physical Notes * HPI (History of Present Illness) Category Sub-Category Detail Notes Category Not es General Follow Up Information Patient returns the office today for recheck of his right hand pain and swelling and left knee prepatellar bursitis after a fall directly onto his left knee and hand in February and March. Patient reports that his left knee pain and swelling have resolved. He continues to have diffuse right hand pain and swelling. At his last appointment we had given him a prescription for physical therapy that he has been attending with minimal improvement in pain or swelling. We also ordered labs given his polyarthralgias and started him on Mobic. 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 Examination Category Sub-Category Detail Notes Category Not es General examination On exam patient in no distress, age-appropriate, alert and oriented x 3. On inspection of the left knee there is no prepatellar swelling or erythema. He has right hand has some mild swelling diffusely. Patient can make a loose fist. There is no tenderness with palpation of the hand. Negative Phalen's and median compression. Sensation intact distally. 2+ radial pulse palpated. Brisk capillary refill all fingers and thumb. Consultation Request Notes Referral Date Referring Provider Referred Provider Not es 05/28/2024 John Cartagena , APPROVED... ......PLEASE OBTAIN AUTHORIZATION FOR MRI RIGHT HAND
--- OUTSIDE RECORDS SUMMARY | 2024-08-16 13:00 | XMS_ITS ---
Author Name Auto Generated Organization OHIP Care Team Providers Care Slurry Tank Operator Name Role Phone Alejandra Hayden ADo Admitting Unavailable Mouchli, Mohamad A. Attending Unavailable Mouchli Mohamad A. Admitting Unavailable Mouchli, Mohamad A. Attending Unavailable González Sutton Attending Unavaila sebastian BarahonaminGonzález sherwood Attending Unavaila ble SarminGonzález sherwood Attending Unavaila ble MoAlejandra peraza A. Attending Unavailable Ji WILDER Attending Unavailable Monestorli, Teenaamad A. Referring Unavailable Mouchli, Mohamad A. Admitting Unavailable Mouchli, Mohamad A. Attending Unavailable Mouchli, Mohamad A. Referring Unavailable Mouchli, Mohamad A. Referring Unavailable Mouchli, Mohamad A. Admitting Unavailable Mouchli, Mohamad A. Attending Unavailable MoTeena perazaamad A. Admitting Unavailable Mouchli, Mohamad A. Attending Unavailable JUAN ANTONIO WILBURN Attending Unavailable GENOVEVA CHILDS Referring Unavailable SANDRA RODRIGUEZ Attending Unavailable NEW GARRISON Referring Unavailable JUAN ANTONIO WILBURN Attending Unavailable GENOVEVA CHILDS Referring Unavailable JUAN ANTONIO WILBURN Attending Unavailable GENOVEVA CHILDS Referring Unavailable JUAN ANTONIO WILBURN Attending Unavailable GENOVEVA CHILDS Referring Unavailable PROBLEMS No Problem Records Found PROCEDURES No Procedure Records Found RESULTS GASTROENTEROLOGY OFFICE/CLINIC NOTE Obse rved: 08/16/2024 1:00 PM Status: F Source: [facility] Gastroenterology Office/Clin ic Note Chief Complaint [...] first-degree relative, we will send him to [facility] for genetic counseling the based on [...] Observed: 07/17 12:36 PM Status: F Source: [facility] Ambulatory Visit Summary TATE ENCARNACION :1970 [...] ROMERO, Ji Be Where: [facility] [address] [address]- Medications What How Much When Why Instructions Changed pancrelipase (Creon 36,000 units oral delayed release capsule) 2 Capsules By Mouth 3 times a day Pickup at [facility] Unchanged cholecalciferol (Vitamin D3 50 mcg [...] physician if questions or concerns Pharmacy Information [facility]: [address] [place] [phone] Allergies No Known Allergies No Known Medication [...] rved: 07/17/2024 12:36 PM Status: F Source: [facility] Gastroenterology Office/Clin ic Note Chief Complaint [...] When Contact Information Lesley ROMERO, González Cadena, [facility], [facility] In 6 weeks [address] [facility], [address] [phone] Additional Instructions: Problem List/Past Medical History Ongoing [...] Observed: 06/05/2024 8:25 AM Status: F Source: [facility] Reminders From: Glo Hilario I To: [facility] - Reminders/Recalls; Sent: 06/05/2024 08:25:46 EST Show up: 03/11/2031 08:25:00 EST Subject: Colonoscopy recall Due Date/Time: 05/11/2031 08:25:00 EST Reminder/Recall [address] Sutton 05/11/24 REMINDERS Observed: 05/22/2024 12:59 PM Status: C Source: [facility] Reminders From: Cheryl Christian To: Gina [...] rved: 05/21/2024 9:41 AM Status: F Source: [facility] Gastroenterology Office/Clin ic Note Chief Complaint follow up to egd/colonoscopy HPI Staff Established patient is a(n) 53 year old male who presents today for a follow up to EGD & Colonoscopy on 05/11/24. Pt previously seen with Dr. Hayden, but insurance was denying EGD/Colon stating he was out of network for [place]. Pt was r/s with Dr. Sutton. Fecal [...] Observed: 025 9:44 AM Status: F Source: [facility] Discharge Instructions TATE ENCARNACION :1970 Visit [...] EST With: Lesley ROMERO, González Cadena Where: [facility] [address] [place] [address]- Tuesday 9:45 AM EDT With: Ji WILDER MD Where: [facility] [address] [place] [address]- Medications What How Much When Why Instructions Next Dose New omeprazole (omeprazole 40 mg Cap-DR) 1 Capsules By Mouth 2 times a day Refills: 3 Pickup at [facility] Unchanged cholecalciferol (Vitamin D3 50 mcg [...] a day (in the morning) Pharmacy Information [facility]: [address] [place], [place] [phone] Test Results No qualifying data available. Allergies [...] ask your health care provider. ??? Take nkck-xgw-jbfvjum and prescription medicines only as told by your health care provider. ? Do not use zmko-rsn-gxziafj medicines in place of prescription medicines unless [...] ask your health care provider. ??? Take tjxi-asj-vazfujx and prescription medicines only as told by your health care provider. Do not use gjhm-kct-ckexckx medicines in place of prescription medicines unless your health care provider approves. ??? Limit your alcohol and caffeine intake. ??? Keep all follow-up visits. This is important. This information is not intended to replace advice given to you by your health care provider. Make sure you discuss any questions you have with your health care provider. Document Revised: 11/06/2021 Document Reviewed: 11/06/2021 [employer] Patient Education ??? 2023 [employer] Colonoscopy Care After Surgery Please read [...] unsweetened, w/added ascorbic acid 1 cup 0.5 [place] 1 cup 0.7 Vegetables Cooked Green beans 1 cup 4.0 Carrots 1/2 cup sliced 2.3 Peas 1 cup 8.8 Potato (baked, with skin) 1 medium potato 3.8 Raw [place] (with peel) 1 cucumber 1.5 Lettuce 1 [...] of Agriculture (USDA) National Nutrient Database at: http://www.[place].usda.gov/fnic/foodcomp/search/ Created using data from the USDA National Nutrient Database for Standard Reference. Available at http://www.[place].Zyncd.gov/fnic/foodcomp/search/. Information adapted from: ExitCare??? Patient Information ???2009 [employer]. Bablic 2012 http://www.[employer]/contents/ejkcvibwcejx-wsjcqnb-bgwact-the-basics Colon Polyps Colon polyps are tissue growths [...] liquor (44 mL). General instructions ??? Take hilw-pyt-dhitwxk and prescription medicines only as told by [...] provider. Document Revised: 07/16/2020 Document Reviewed: 07/16/2020 [employer] Patient Education ??? 2023 [employer] Gluten-Free Diet for Celiac Disease, Adult The [...] are safe to eat. In the [place] [employer] are also required to list common [...] how a food is processed, ask the concrete buster operator. What foods can I eat? Fruits All [...] cereals made from cornmeal or GF grains. [place], rice, and wild rice. Some rice noodles or dick noodles. Arrowroot starch, corn bran, corn flour, corn germ, cornmeal, corn starch, potato flour, potato starch flour, and rice bran. Plain, brown, and sweet rice flours. Rice portuguese, soy flour, and tapioca starch. Meats and [...] or meat loaves. Bread-containing products, such as Mauritanian steak, croquettes, meatballs, and meatloaf. Most tuna canned in vegetable broth. Capron with hydrolyzed vegetable protein (HVP) injected as [...] provider. Document Revised: 02/16/2022 Document Reviewed: 02/16/2022 [employer] Patient Education ??? 2023 [employer] Upper Endoscopy, Adult, Care After After the [...] activities are safe for you. ??? Take cmwc-prf-viaxysw and prescription medicines only as told by [...] provider. Document Revised: 07/07/2022 Document Reviewed: 07/07/2022 [employer] Patient Education ??? 2023 [employer] Esophagitis Esophagitis is inflammation of the esophagus. [...] these instructions at home: Medicines ??? Take zfrd-uki-ixxafua and prescription medicines only as told by [...] vinegar, hot sauces, and barbecue sauce. ? [place] fruit juices and citrus fruits, such as oranges, ronald, and limes. ? Tomato-based foods, such as red sauce, chili, salsa, and pizza with red sauce. ? Fried and fatty foods, such as donuts, hebrew fries, potato chips, and high-fat dressings. ? [...] provider. Document Revised: 10/06/2020 Document Reviewed: 10/06/2020 [employer] Patient Education ??? 2023 [employer] Celiac Disease Celiac disease is a condition [...] provider. Document Revised: 02/16/2022 Document Reviewed: 02/16/2022 [employer] Patient Education ??? 2023 [employer] Gastritis, Adult Gastritis is inflammation of [...] medicines. These include steroids, antibiotics, and some dhsw-okk-oqwubfv medicines, such as aspirin or ibuprofen. ??? [...] these instructions at home: Medicines ??? Take bfmj-ign-xyxlygw and prescription medicines only as told by [...] provider. Document Revised: 08/01/2021 Document Reviewed: 08/01/2021 [employer] Patient Education ??? 2023 [employer] Common Emergency Awareness Tips IS IT A [...] signed up for this yet, please contact [employer] at [phone] to get signed up today. Patient Name: TATE ENCARNACION I have received this information and my questions have been answered. 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 Signature: Relationship to Patient: Witness Name/Signature: Date: Result Comment: Electronical ly Signed By: Cy SADLER, Mariama\.br\Date and Time Signed: 05/11/24 09:44 EST PATIENT EDUCATION - TEXT Observed: 05/11 9:44 AM Status: C Source: [facility] Patient Education - Text Colonoscopy Care [...] unsweetened, w/added ascorbic acid 1 cup 0.5 [place] 1 cup 0.7 Vegetables Cooked Green beans 1 cup 4.0 Carrots 1/2 cup sliced 2.3 Peas 1 cup 8.8 Potato (baked, with skin) 1 medium potato 3.8 Raw [place] (with peel) 1 cucumber 1.5 Lettuce 1 [...] 8.7 Peanuts 1/2 cup 7.9 Chart from [facility] 2013. SEEK IMMEDIATE MEDICAL CARE IF: [...] of Agriculture (USDA) National Nutrient Database at: http://www.[place].usda.gov/fnic/foodcomp/search/ Created using data from the USDA National Nutrient Database for Standard Reference. Available at http://www.[place].usda.gov/fnic/foodcomp/search/. Information adapted from: ExitCare??? Patient Information ???2009 [employer]itrol. Bablic 2013 http://www.[employer]/contents/bcpnztgnaxqq-meupzal-pfbzlc-the-basics Gastroenterology Peptic Ulcer A peptic ulcer is [...] ask your health care provider. ??? Take kprx-czg-gplvrpr and prescription medicines only as told by your health care provider. ? Do not use hrez-odj-czyairw medicines in place of prescription medicines unless [...] ask your health care provider. ??? Take jxwb-rrq-ffcoajc and prescription medicines only as told by your health care provider. Do not use ypsw-bjl-xasnutl medicines in place of prescription medicines unless your health care provider approves. ??? Limit your alcohol and caffeine intake. ??? Keep all follow-up visits. This is important. This information is not intended to replace advice given to you by your health care provider. Make sure you discuss any questions you have with your health care provider. Document Revised: 11/06/2021 Document Reviewed: 11/06/2021 [employer] Patient Education ? 2023 [employer].Upper Endoscopy, Adult, Care After After the [...] activities are safe for you. ??? Take aups-fga-miwpgoz and prescription medicines only as told by [...] provider. Document Revised: 07/07/2022 Document Reviewed: 07/07/2022 [employer] Patient Education ? 2023 [employer].Esophagitis Esophagitis is inflammation of the esophagus. [...] these instructions at home: Medicines ??? Take oerp-vrh-huvelbo and prescription medicines only as told by [...] vinegar, hot sauces, and barbecue sauce. ? [place] fruit juices and citrus fruits, such as oranges, ronald, and limes. ? Tomato-based foods, such as red sauce, chili, salsa, and pizza with red sauce. ? Fried and fatty foods, such as donuts, hebrew fries, potato chips, and high- fat dressings. [...] provider. Document Revised: 10/06/2020 Document Reviewed: 10/06/2020 [employer] Patient Education ? 2023 [employer]Immunology Gluten-Free Diet for Celiac Disease, Adult The [...] how a food is processed, ask the concrete buster operator. What foods can I eat? Fruits All [...] cereals made from cornmeal or GF grains. [place], rice, and wild rice. Some rice noodles or dick noodles. Arrowroot starch, corn bran, corn flour, corn germ, cornmeal, corn starch, potato flour, potato starch flour, and rice bran. Plain, brown, and sweet rice flours. Rice portuguese, soy flour, and tapioca starch. Meats and [...] or meat loaves. Bread-containing products, such as Mauritanian steak, croquettes, meatballs, and meatloaf. Most tuna canned in vegetable broth. Capron with hydrolyzed vegetable protein (HVP) injected as [...] provider. Document Revised: 02/16/2022 Document Reviewed: 02/16/2022 [employer] Patient Education ? 2023 [employer]Celiac Disease Celiac disease is a condition in [...] provider. Document Revised: 02/16/2022 Document Reviewed: 02/16/2022 [employer] Patient Education ? 2023 [employer].Infectious Disease Gastritis, Adult Gastritis is inflammation [...] medicines. These include steroids, antibiotics, and some umab-una-dbdljuo medicines, such as aspirin or ibuprofen. ??? [...] these instructions at home: Medicines ??? Take vwue-qyl-wyoawgm and prescription medicines only as told by [...] provider. Document Revised: 08/01/2021 Document Reviewed: 08/01/2021 [employer] Patient Education ? 2023 [employer]Oncology Colon Polyps Colon polyps are tissue growths [...] liquor (44 mL). General instructions ??? Take fefw-ogd-ccdsbbb and prescription medicines only as told by [...] provider. Document Revised: 07/16/2020 Document Reviewed: 07/16/2020 [employer] Patient Education ? 2023 [employer] PROGRESS NOTE-PHYSICIAN Observed: 2024 9:37 AM Status: F Source: [facility] Progress Note-Physician Patient: TATE ENCARNACION Age: 53 years Sex: Male : 1970 Associated Diagnoses: None Author: Cody Tay MD Postoperative Information Postoperative disposition: Postoperative disposition: To PACU. Optimetrix number: Optimetrix number [id number]. Anesthetic utilized: General. Health Status Allergies: Allergic [...] Observed: 025 9:30 AM Status: F Source: [facility] Discharge Instructions TATE ENCARNACION :1970 Visit [...] EST With: Lesley ROMERO, González Cadena Where: [facility] [address] [place] [address] [address] [address]- Tuesday 9:45 AM EDT With: AURORA ROMERO, Ji Be Where: [facility] [address] [place] [address]- Medications What How Much When Why Instructions Next Dose New omeprazole (omeprazole 40 mg Cap-DR) 1 Capsules By Mouth 2 times a day Refills: 3 Pickup at [facility] Unchanged cholecalciferol (Vitamin D3 50 mcg [...] a day (in the morning) Pharmacy Information [facility]: [address] [phone] Test Results No qualifying data available. Allergies [...] how a food is processed, ask the concrete buster operator. What foods can I eat? Fruits All [...] cereals made from cornmeal or GF grains. [place], rice, and wild rice. Some rice noodles or dick noodles. Arrowroot starch, corn bran, corn flour, corn germ, cornmeal, corn starch, potato flour, potato starch flour, and rice bran. Plain, brown, and sweet rice flours. Rice portuguese, soy flour, and tapioca starch. Meats and [...] or meat loaves. Bread-containing products, such as Mauritanian steak, croquettes, meatballs, and meatloaf. Most tuna canned in vegetable broth. Capron with hydrolyzed vegetable protein (HVP) injected as [...] provider. Document Revised: 02/16/2022 Document Reviewed: 02/16/2022 [employer] Patient Education ??? 2023 [employer] Upper Endoscopy, Adult, Care After After the [...] activities are safe for you. ??? Take zshn-ojl-jbxyebb and prescription medicines only as told by [...] provider. Document Revised: 07/07/2022 Document Reviewed: 07/07/2022 [employer] Patient Education ??? 2023 [employer] Esophagitis Esophagitis is inflammation of the esophagus. [...] these instructions at home: Medicines ??? Take rugf-znu-ihhnbzc and prescription medicines only as told by [...] vinegar, hot sauces, and barbecue sauce. ? [place] fruit juices and citrus fruits, such as oranges, ronald, and limes. ? Tomato-based foods, such as red sauce, chili, salsa, and pizza with red sauce. ? Fried and fatty foods, such as donuts, hebrew fries, potato chips, and high-fat dressings. ? [...] provider. Document Revised: 10/06/2020 Document Reviewed: 10/06/2020 [employer] Patient Education ??? 2023 [employer] Celiac Disease Celiac disease is a condition [...] provider. Document Revised: 02/16/2022 Document Reviewed: 02/16/2022 [employer] Patient Education ??? 2023 [employer] Gastritis, Adult Gastritis is inflammation of [...] medicines. These include steroids, antibiotics, and some omse-kti-ioiwaqe medicines, such as aspirin or ibuprofen. ??? [...] these instructions at home: Medicines ??? Take gkue-vcm-mefmdld and prescription medicines only as told by [...] provider. Document Revised: 08/01/2021 Document Reviewed: 08/01/2021 [employer] Patient Education ??? 2023 [employer] Common Emergency Awareness Tips IS IT A [...] signed up for this yet, please contact [employer] at [phone] to get signed up today. Patient Name: TATE ENCARNACION I have received this information and my questions have been answered. 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 Signature: Relationship to Patient: Witness Name/Signature: Date: Result Comment: Electronical ly Signed By: Cy SADLER, Mariama\.br\Date and Time Signed: 05/11/24 09:30 EST ENDOSCOPIC PROCEDURE REPORT - OTHER Observed: 05/11/2024 9:05 AM Status: F Source: [facility] Endoscopic Procedure Report - Other Patient: [...] qAM, # 75 gram, Refills(s) 3, Pharmacy: [facility], 165, cm, 05/07/24 9:19:00 EST, Height/Length Dosing, 108.1, kg, 05/07/24 9:19:00 EST, Weight Dosing Questran 4 g/9 g oral powder: = 1 packet(s), Oral, BID, # 60 EA, Refills(s) 0, Pharmacy: [facility], 170, cm, 04/24/24 8:57:00 EST, Height/Length Dosing, 108.6, kg, 04/24/24 8:57:00 EST, Weight Dosing Zenpep 60,000 units-189,600 units-252,600 units oral delayed release capsule: See Instructions, 300 cap(s), Refill(s) 3, Take 2 caps with each meal and 1 with each snack, [facility], 170, cm, 04/24/24 8:57:00 EST, Height/Length Dosing, 108.6, kg, 04/24/24 8:57:00 EST, Weight Dosing tadalafil 20 mg Tab: 20 mg = 1 tab(s), Oral, As Directed, PRN for erectile dysfunction, Pt to take one tab 1 hour prior to sexual activity. Do not exceed 20mg in 24 hours., # 30 tab(s), Refills(s) 0, Pharmacy: [facility], 165, cm, 05/07/24 9:19:00 Logan DASH... [...] hment - attachment storage system not supported [id number] Can be viewed in source system Missing Attachment - attachment storage system not supported [id number] Can be viewed in source systemMissing Attachment - attachment storage system not supported [id number] Can be viewed in source systemMissing Attachment - attachment storage system not supported [id number] Can be viewed in source systemMissing Attachment - attachment storage system not supported [id number] Can be viewed in source systemMissing Attachment - attachment storage system not supported [id number] Can be viewed in source systemMissing Attachment - attachment storage system not supported [id number] Can be viewed in source systemMissing Attachment - attachment storage system not supported [id number] Can be viewed in source system ENDOSCOPIC PROCEDURE REPORT - OTHER Obse rved: 05/11/2024 8:41 AM Status: C Source: [facility] Endoscopic Procedure Report - Other Patient: [...] hment - attachment storage system not supported [id number] Can be viewed in source system Missing Attachment - attachment storage system not supported [id number] Can be viewed in source systemMissing Attachment - attachment storage system not supported [id number] Can be viewed in source systemMissing Attachment - attachment storage system not supported [id number] Can be viewed in source systemMissing Attachment - attachment storage system not supported [id number] Can be viewed in source systemMissing Attachment - attachment storage system not supported [id number] Can be viewed in source systemMissing Attachment - attachment storage system not supported [id number] Can be viewed in source systemMissing Attachment - attachment storage system not supported [id number] Can be viewed in source systemMissing Attachment - attachment storage system not supported [id number] Can be viewed in source system SURGICAL PATHOLOGY REPORT Observed: 04/13 8:38 AM Status: F [facility] [place] [address]- Surgical Pathology Report Collected Date/Time: 05/11/2024 08:38 [...] is entirely submitted in one cassette. (DC) DC:[facility] Microscopic Description Microscopic examination performed unless gross only specified. This report was transcribed using voice recognition technology and might contain unintended computerized liaison inspection laboratory assistant errors.The use of one or more reagents in the above tests is regulated as an analyte specific reagent (ASR). The test or tests are ordered following initial H&E microscopic examination. The performance characteristics were determined by the [facility] of [facility] Surgical Pathology. They have not been [...] recognition technology and might contain unintended computerized liaison inspection laboratory assistant errors. Performed By: #### [id number] # ### [facility] [address] [place] [address] SURGICAL PATHOLOGY REPORT Observed: 04/13 8:38 AM Status: F Source: [address] [place] [address]- Surgical Pathology Report Collected Date/Time: 05/11/2024 08:38 [...] is entirely submitted in one cassette. (DC) DC:[facility] Microscopic Description Microscopic examination performed unless gross only specified. This report was transcribed using voice recognition technology and might contain unintended computerized liaison inspection laboratory assistant errors.The use of one or more reagents in the above tests is regulated as an analyte specific reagent (ASR). The test or tests are ordered following initial H&E microscopic examination. The performance characteristics were determined by the [facility] Surgical Pathology. They have not been [...] recognition technology and might contain unintended computerized liaison inspection laboratory assistant errors. Performed By: #### [id number] # ### [facility] [address] [place] [address] MAIN OR PACU II RECORD Observed: 025 8:35 AM Status: F Source: [facility] Main OR PACU II Record PACU Phase II Document Type FT Summary Primary Physician: González Sutton MD Finalized Date/Time: 05/11/24 10:02:45 Pt. Name: TATE ENCARNACION /Sex: 1970 Male Med Rec #: [id number] Physician: Alejandra Hayden MD Financial #: [id number] Pt. Type: O Room/Bed: / Admit/Disch: 05/11/24 [...] Observed: 05/11/2024 8:35 AM Status: C Source: [facility] Main OR Intraoperative Recor d IntraOp Document Type FT Summary Primary Physician: González Sutton MD Finalized Date/Time: 05/11/24 10:41:05 Pt. Name: TATE ENCARNACION/Sex: 1970 Male Med Rec #: [id number] Physician: Alejandra Hayden MD Financial #: [id number] Pt. Type: O Room/Bed: / Admit/Disch: 05/11/24 [...] Negrete RN, Sheldon Martines Role Performed Anesthesiologist Bread Packer - Primary Scrub - Primary Exercise Manager Time In 05/11/24 08:30:00 05/11/24 08:30:00 05/11/24 [...] and tissue Entry 1 Skin Integrity Intact, [place], Warm, & Skin Abnormality No Dry Outcomes [...] RN Patient Status Stable Skin. Condition Intact, [place], Warm, & Dry Airway Maintenance Oxygen in Use? No Airway Device N/A Outcomes Met? 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 Yes Verified Last Modified By: Becky Negrete RN 05/11/24 09:07:33 Post-Care Text: The patient received appropriate medication(s) safely administered during the perioperative period For [facility] please see scanned medication reconcilliation [...] 09:07:56 Case Comments <None> Finalized By: Susan SADLER, REGLA, Bela Document Signatures Signed By: Becky Negrete RN 05/11/24 09:16 Becky Negrete RN 05/11/24 09:09 Becky Negrete RN 05/11/24 09:15 Susan SADLER, KHARIN, Bela 05/11/24 10:41 HISTORY AND PHYSICAL Observed: 5 8:23 AM Status: F Source: [facility] History and Physical Patient: TATE ENCARNACION [...] qAM, # 75 gram, Refills(s) 3, [facility]acy[facility], 165, cm, 05/07/24 9:19:00 EST, Height/Length Dosing, 108.1, kg, 05/07/24 9:19:00 EST, Weight Dosing Questran 4 g/9 g oral powder: = 1 packet(s), Oral, BID, # 60 EA, Refills(s) 0, Pharmacy: [facility], 170, cm, 04/24/24 8:57:00 EST, Height/Length Dosing, 108.6, kg, 04/24/24 8:57:00 EST, Weight Dosing Zenpep 60,000 units-189,600 units-252,600 units oral delayed release capsule: See Instructions, 300 cap(s), Refill(s) 3, Take 2 caps with each meal and 1 with each snack, [facility], 170, cm, 04/24/24 8:57:00 EST, Height/Length Dosing, 108.6, kg, 04/24/24 8:57:00 EST, Weight Dosing tadalafil 20 mg Tab: 20 mg = 1 tab(s), Oral, As Directed, PRN for erectile dysfunction, Pt to take one tab 1 hour prior to sexual activity. Do not exceed 20mg in 24 hours., # 30 tab(s), Refills(s) 0, Pharmacy: [facility], 165, cm, 05/07/24 9:19:00 Logan DASH... [...] hypertension (high blood pressure) / SNOMED CT 69891237 / Confirmed Thyroid function tests abnormal / SNOMED CT 333112153 / Confirmed Anemia of chronic disorder (low iron) / SNOMED CT 397729741 / Confirmed Bloating / SNOMED CT 331692619 / Confirmed Black stool / SNOMED CT 140561919 / Confirmed Chronic GERD / SNOMED CT 408853554 / Confirmed Decreased sexual desire / SNOMED CT 745125158 / Confirmed Alcohol drinker / SNOMED CT 672720286 / Confirmed Stress-related physiological response affecting medical condition / SNOMED CT 13075087 / Confirmed High triglycerides / SNOMED CT 102153937 / Confirmed Obesity due to excess calories / SNOMED CT 9175266633 / Confirmed ED (erectile dysfunction) / SNOMED CT 7307376978 / Confirmed Hypogonadism male / SNOMED CT 31239353 / Confirmed Screening PSA (prostate specific antigen) / SNOMED CT 100742273 / Confirmed BPH with urinary obstruction / SNOMED CT 3767768893 / Confirmed Acquired buried penis / SNOMED CT 376842210 / Confirmed Histories Past Medical History: No [...] Observed: 2024 8:19 AM Status: F Source: [facility] Progress Note-Physician Patient: TATE ENCARNACION Age: [...] qAM, # 75 gram, Refills(s) 3, Pharmacy: [facility], 165, cm, 05/07/24 9:19:00 EST, Height/Length Dosing, 108.1, kg, 05/07/24 9:19:00 EST, Weight Dosing Questran 4 g/9 g oral powder: = 1 packet(s), Oral, BID, # 60 EA, Refills(s) 0, Pharmacy: [facility], 170, cm, 04/24/24 8:57:00 EST, Height/Length Dosing, 108.6, kg, 04/24/24 8:57:00 EST, Weight Dosing Zenpep 60,000 units-189,600 units-252,600 units oral delayed release capsule: See Instructions, 300 cap(s), Refill(s) 3, Take 2 caps with each meal and 1 with each snack, [facility], 170, cm, 04/24/24 8:57:00 EST, Height/Length Dosing, 108.6, kg, 04/24/24 8:57:00 EST, Weight Dosing tadalafil 20 mg Tab: 20 mg = 1 tab(s), Oral, As Directed, PRN for erectile dysfunction, Pt to take one tab 1 hour prior to sexual activity. Do not exceed 20mg in 24 hours., # 30 tab(s), Refills(s) 0, Pharmacy: [facility], 165, cm, 05/07/24 9:19:00 EST, Hei... [...] Problems Acquired buried penis / SNOMED CT 436183907 / Confirmed Alcohol drinker / SNOMED CT 993283782 / Confirmed Anemia of chronic disorder (low iron) / SNOMED CT 777765513 / Confirmed Benign hypertension (high blood pressure) / SNOMED CT 84071038 / Confirmed Black stool / SNOMED CT 183390090 / Confirmed Bloating / SNOMED CT 503616054 / Confirmed BPH with urinary obstruction / SNOMED CT 8278351112 / Confirmed Chronic GERD / SNOMED CT 804907803 / Confirmed Decreased sexual desire / SNOMED CT 074055517 / Confirmed ED (erectile dysfunction) / SNOMED CT 6558205884 / Confirmed High triglycerides / SNOMED CT 158109291 / Confirmed Hypogonadism male / SNOMED CT 29651248 / Confirmed Obesity due to excess calories / SNOMED CT 7985698297 / Confirmed Screening PSA (prostate specific antigen) / SNOMED CT 290276175 / Confirmed Stress-related physiological response affecting medical condition / SNOMED CT 10394136 / Confirmed Thyroid function tests abnormal / SNOMED CT 891300471 / Confirmed Canceled: Low libido / SNOMED CT 976969703, Active Problems (16) Acquired buried penis Alcohol [...] review: No qualifying data available . Plan [place] [employer] Anesthesiologists (ASA) physical status classification: Class II. Anesthetic Preoperative Plan: Anesthesia General. Result Comment: Electronical ly Signed By: Jasvir ROMERO, Cody Alvarez\.br\Date and Time Signed: 05/11/24 08:21 EST MAIN OR PREOPERATIVE RECORD Observed: 8:15 AM Status: F Source: [facility] Main OR Preoperative Record Holding Area Document Type FT Summary Primary Physician: González Sutton MD Finalized Date/Time: 05/11/24 07:18:36 Pt. Name: TATE ENCARNACION /Sex: 1970 Male Med Rec #: [id number] Physician: Alejandra Hayden MD Financial #: [id number] Pt. Type: O Room/Bed: / Admit/Disch: 05/11/24 [...] Observed: 05/07 12:10 PM Status: F Source: [facility] Ambulatory Visit Summary TATE ENCARNACION :1970 [...] Appointments Tuesday 8:15 AM EST With: Where: [facility] Surgical Services Tuesday 9:00 AM EST With: Lesley ROMERO, González Cadena Where: [facility] [address] [place] [address]- Tuesday 9:45 AM EDT With: Ji WILDER MD Where: [facility] [address] [place] [address]- You Need to Schedule the Following Appointments Follow Up with AURORA ROMERO, Ji Be, URL When: Comments: 4 mos w/ PSA and T level Where: [facility] [address], [place] [address]- [phone] Medications What How Much When Why Instructions New tadalafil (tadalafil 20 mg Tab) 1 Tablets By Mouth As Directed as needed for for erectile dysfunction Pt to take one tab 1 hour prior to sexual activity. Do not exceed 20mg in 24 hours. Pickup at [facility] New testosterone (AndroGel Pump 20.25 mg/ 1.25 g (1.62%) transdermal gel) 2 Pump Topical Once a day (in the morning) Refills: 3 Pickup at [facility] Unchanged cholecalciferol (Vitamin D3 50 mcg [...] physician if questions or concerns Pharmacy Information [facility]: [address] [place], [place] [phone] Allergies No Known Allergies No Known Medication [...] Follow these instructions at home: ??? Take qhpn-sso-ngxtyrc and prescription medicines only as told by [...] provider. Document Revised: 11/27/2020 Document Reviewed: 11/27/2020 [employer] Patient Education ??? 2023 [employer] Erectile Dysfunction Erectile dysfunction (ED) is [...] these instructions at home: Medicines ??? Take maec-bfs-fdsaado and prescription medicines only as told by [...] provider. Document Revised: 06/24/2021 Document Reviewed: 06/24/2021 [employer] Patient Education ??? 2023 [employer] UROLOGY OFFICE/CLINIC NOTE Observed: 9:57 AM Status: F Source: [facility] Urology Office/Clinic Note Chief Complaint New [...] [facility] [address], [place] [address]- [phone] Additional Instructions: 4 mos w/ PSA and [...] Observed: 05/07/2024 9:53 AM Status: C Source: [facility] Patient Education Urology Hypogonadism, Male Male [...] Follow these instructions at home: ??? Take dtmt-pug-obcelkn and prescription medicines only as told by [...] provider. Document Revised: 11/27/2020 Document Reviewed: 11/27/2020 [employer] Patient Education ? 2023 [employer]Erectile Dysfunction Erectile dysfunction (ED) is the inability [...] these instructions at home: Medicines ??? Take jdua-moo-sxovncb and prescription medicines only as told by [...] provider. Document Revised: 06/24/2021 Document Reviewed: 06/24/2021 [employer] Patient Education ? 2023 [employer] US ABDOMEN, LIMITED Observed: 04/26/2024 8:31 AM Status: F Source: [facility] Exam Date/Time: 04/26/2024 09:07 EST Reason [...] Collected: 04/25/19 8:00 AM Status: F Source: [facility] TYPE CODE TESTS RESULT OUT OF RANGE REFERENCE UNITS LAB 44504-3(LOINC) CALPROTECTIN :MCNT:PT:STO OL:QN: 15 Unknown 0-120 mcg/gm Result Comment: Concentratio n Interpretation Follow-Up < 5 - 50 ug/g Normal None >50 -120 ug/g Borderline Re-evaluate in 4-6 weeks >120 ug/g Abnormal Repeat as clinically indicated Performed at: [address] [id number] MD Alfredo Green Performed By: #### [id number] #### [facility] Laboratory [address] [place] [address] PANCREATIC ELASTASE, FECAL Collected: 04/25/2024 8:00 AM Status: F Source: [facility] TYPE CODE TESTS RESULT OUT OF RANGE REFERENCE UNITS LAB 51966-6([facility]) ELASTASE.PANC REATIC:MCNT:P T:STOOL:QN: 9 Low >200 Result Comment: Severe Pancr eatic Insufficiency: <100 Moderate Pancreatic Insufficiency: 100 - 200 Normal: >200 Performed at: [address] [id number] MD Alfredo Green Performed By: #### [id number] #### [facility] Laboratory [address] [place] [address] TESTOST TOTAL Collected: 04/24/2024 9:53 AM Status: F Source: [facility] TYPE CODE TESTS RESULT OUT OF RANGE REFERENCE UNITS LAB 2986-8(LOINC) TESTOSTERONE: MCNC:PT:SER/P LAS:QN: 194 Low 264-916 ng/dL Result Comment: Adult male r eference interval is based on a population of healthy nonobese males (BMI <30) between 19 and 39 years old. Mildred et.al. JCEM 2017,102;0280-9153. PMID: 75257259. Performed at: [facility] [place] [address] [place], [place] [id number] PhD Franklin Pollard Performed By: #### [id number] # ### [facility] [address] [place] [address] CRP Collected: 04/24/2024 9:53 AM Status: F Source: [facility] TYPE CODE TESTS RESULT OUT OF RANGE REFERENCE UNITS LAB 1988-5(LOINC) C REACTIVE PROTEIN:MCNC:P T:SER/PLAS:QN: 0.2 Normal <=1.9 mg/dL Performed By: #### [id number] # ### [facility] Laboratory [address] [place] [address] CELIAC DISEASE COMPREHENSIVE Collected: 04/24/2024 9: 53 AM Status: F Source: [facility] TYPE CODE TESTS RESULT OUT OF RANGE REFERENCE UNITS LAB 87228-3(LOIN C) GLIADIN PEPTIDE AB.IGA:ACNC:PT:SER :QN: 4 Unknown 0-19 unit(s) Result Comment: Negative 0 - 19 Weak Positive 20 - 30 Moderate to Strong Positive >30 LAB 28745-7(LOIN C) GLIADIN PEPTIDE AB.IGG:ACNC:PT:SER :QN: 2 Unknown 0-19 unit(s) Result Comment: Negative 0 - 19 Weak Positive 20 - 30 Moderate to Strong Positive >30 LAB 07349-3(LOIN C) TISSUE TRANSGLUTAMINASE AB.IGA:ACNC:PT:SER :QN: <2 Unknown 0-3 unit/mL Result Comment: Negative 0 - 3 Weak Positive 4 - 10 Positive >10 Tissue Transglutaminase (tTG) has been identified as the endomysial antigen. Studies have demonstr- ated that endomysial IgA antibodies have over 99% specificity for gluten sensitive enteropathy. LAB 96515-7(LOIN C) TISSUE TRANSGLUTAMINASE AB.IGG:ACNC:PT:SER :QN: <2 Unknown 0-5 unit/mL Result Comment: Negative 0 - 5 Weak Positive 6 - 9 Positive >9 LAB 93072-7(LOIN C) ENDOMYSIUM AB.IGA:PRTHR:PT:SE R:ORD: Negative Unknown Negative Result Comment: Serum is sli ghtly lipemic. LAB 2458-8(LOINC ) IGA:MCNC:PT:SER/PL :QN: 213 Unknown 90-386 mg/dL Result Comment: Performed at : [facility] [address] [id number] PhD Franklin Pollard Performed By: #### [id number] #### [facility] [address] [place] [address] AMBULATORY VISIT SUMMARY Observed: 04/24 9:36 AM Status: F Source: [facility] Ambulatory Visit Summary TATE ENCARNACION :1970 [...] AM EST With: Alejandra Hayden MD Where: [facility] [address] [facility] [address] [address]- You Need to Complete the Following C-Reactive [...] GERD Decreased sexual desire, pp_set_radiology_subspecialty, [place] Medications What How Much When Why Instructions New cholestyramine (Questran 4 g/ 9 g oral powder) 1 Packets By Mouth 2 times a day Irritable bowel syndrome with diarrhea Bloating Black stool Chronic GERD Pickup at [facility] Unchanged cholecalciferol (Vitamin D3 50 mcg [...] physician if questions or concerns Pharmacy Information [facility]: [address] [place], [place] [phone] Medications and Immunizations Administered Not Given influenza [...] Observed: 04/24/2024 9:30 AM Status: F Source: [facility] Gastroenterology Office/Clin ic Note Chief Complaint [...] BID, # 60 EA, Refills(s) 0, Pharmacy: [facility], 170, cm, 04/24/24 8:57:00 EST, Height/Length Dosing, 108.6, kg, 04/24/24 8:57:00 EST, Weight Dosing C-Reactive Protein Calprotectin, Fecal Celiac Disease Comprehensive Colonoscopy (Hospital Procedure) EGD Endoscopy (Hospital Procedure) IgA, Quant. Pancreatic Elastase, Fecal Pancreatic Elastase, Fecal Testosterone Level Total US Abdomen, Limited 2. Bloating (R14.0: Abdominal distension (gaseous)) Ordered: cholestyramine, = 1 packet(s), Oral, BID, # 60 EA, Refills(s) 0, Pharmacy: [facility], 170, cm, 04/24/24 8:57:00 EST, Height/Length Dosing, 108.6, kg, 04/24/24 8:57:00 EST, Weight Dosing C-Reactive Protein Calprotectin, Fecal Celiac Disease Comprehensive Colonoscopy (Hospital Procedure) EGD Endoscopy (Hospital Procedure) IgA, Quant. Pancreatic Elastase, Fecal Pancreatic Elastase, Fecal Testosterone Level Total US Abdomen, Limited 3. Black stool (K92.1: Melena) Ordered: cholestyramine, = 1 packet(s), Oral, BID, # 60 EA, Refills(s) 0, Pharmacy: [facility], 170, cm, 04/24/24 8:57:00 EST, Height/Length [...] BID, # 60 EA, Refills(s) 0, Pharmacy: [facility], 170, cm, 04/24/24 8:57:00 EST, Height/Length Dosing, 108.6, kg, 04/24/24 8:57:00 EST, Weight Dosing C-Reactive Protein Calprotectin, Fecal Celiac Disease Comprehensive Colonoscopy (Hospital Procedure) EGD Endoscopy (Hospital Procedure) IgA, Quant. Pancreatic Elastase, Fecal Pancreatic Elastase, Fecal Testosterone Level Total US Abdomen, Limited 5. Decreased sexual desire (F52.0: Hypoactive sexual desire disorder) Ordered: [facility] Internal Ambulatory Referral Pancreatic Elastase, Fecal [...] CODE NAME / CODE REACTION SEVERITY SOURCE [id number](SNOME D CT) No Known Allergies [facility] [id number](SNOME D CT) No Known Medication Allergies [facility] ENCOUNTERS ADMIT/DISCHARGE ACCOUNT NUMBER ADMITTING ENCOUNTER CLASS LOCATION SOURCE 08/16/2024/08/17/19 [id number] Ambulatory [facility] DH[facility]: [facility] DHRoom: CD:[id number] [facility] 07/17/2024/07/18/19 [id number] Ambulatory [place] DH[facility]: [facility] DHRoom: CD:[id number] [facility] 05/25/2024/05/25/19 [id number] Ambulatory Building:NO [facility] 05/22/2024/05/22/19 25 [id number] Ambulatory Building:NO [facility] 05/21/2024/05/21/19 25 [id number] Ambulatory [facility] DH[facility]: [facility] DHRoom: CD:[id number] [facility] 05/18/2024/05/18/19 25 [id number] Ambulatory Building:NO [facility] 05/17/2024/05/17/19 25 [id number] Ambulatory Building:BS R NEURO [facility] 05/15/2024/05/15/19 25 [id number] Ambulatory Building:NO [facility] 05/11/2024/01 [id number] Alejandra Hayden Ambulatory FTBuildin g:FT END [facility] 05/07/2024/05/07/19 [id number] [place] Jessica m: Exam 2 [facility] 04/27/2024 [id number] Ambulatory [place] [facility] 04/26/2024/04/26/19 [id number] Alejandra Hayden Ambulatory FTBuildin g:FT US [facility] 04/25/2024/04/25/19 [id number] Alejandra Hayden Ambulatory FTBuildin g:FT LAB [facility] 04/24/2024/04/24/19 [id number] Alejandra Hayden Ambulatory FTBuildin g:FT LAB [facility] 04/24/2024 [id number] Alejandra Hayden Ambulatory FTBuildin g:FT LAB [facility] 04/24/2024/04/24/19 [id number] Ambulatory [place] [facility]: [facility] DHRoom: CD:[id number] [address] [place] [address] 04/18/2024 [id number] Ambulatory [facility] [facility] DH[facility]: [facility] PAYERS ENCOUNTER GUARANTOR PAYER SUBSCRIBER SOURCE 08/16/2024 TATE JOHNSON: [id number] [facility] 224Tel: ~~(4 1 (HP) Primary Insurance:MolinaPolicy Number: [id number] Date:7368-90-76DN[address] [address]GR: [phone] TATE GOOD [facility] 07/17/2024 TATE DE JESUSALESHA: [id number] [facility] 224Tel: ~~(4 1 (HP) Primary Insurance:MolinaPolicy Number: [id number] Date:7567-60-33NO [address] [address]AH: [phone] [facility]24 TATEANNAMARIA ENCARNACIONDOB: [id number] [address], [place] [address]Nsw: (HP) Primary Insurance:[place] MEDICAIDPolicy Number: [id number] Date:2024-04-11 TATE SHASHANKDOB: [id number] [address], [place] [address] [facility] 05/22/2024 TATEANNAMARIA DE JESUSESDOB: [address], [place] [address]Jww: (HP) Primary Insurance:[place] MEDICAIDPolicy Number: [id number] Date:2024-04-11 TATE ENCARNACIONDOB: [id number] [address], [place] [address] [facility] 05/21/2024 TATE ENCARNACIONDOB: [facility] 224Tel: ~~(4 1 (HP) Primary Insurance:MolinaPolicy Number: [id number] Date:2171-71-74MR [address] [address]XW: [phone] [facility] 05/18/2024 TATEANNAMARIA ENCARNACIONDOB: [id number] [address], [place] [address]Ary: (HP) Primary Insurance:[place] MEDICAIDPolicy Number: [id number] Date:2024-04-11 TATEANNAMARIA ENCARNACIONDOB: [id number] [address], [place] [address] [facility] 05/17/2024 TATE DE JESUSESDOB: [id number] [address], [place] [address]Jjh: (HP) Primary Insurance:[place] MEDICAIDPolicy Number: [id number] Date:2024-04-11 TATE XIONGB: [id number] [address], [place] [address] [facility] 05/15/2024 TATE XIONGB: [place], [place] [address]Kqm: (HP) Primary Insurance:[place] MEDICAIDPolicy Number: [id number] Date:2024-04-11 TATE XIONGB: [id number] [address] [place] [address] [facility] 05/11/2024 TATE ENCARNACIONDOB: [facility] [address] 224Tel: ~~(4 1 (HP) Primary Insurance:MolinaPolicy Number: [id number] Date:1625-25-68XY[address] [address]BJ: [phone] TATE GOOD [facility] 05/07/2024 TATE ENCARNACIONB: [facility] [address] 224Tel: ~~(4 1 (HP) Primary Insurance:MolinaPolicy Number: [id number] Date:1876-67-76EB[address] [address]SZ: [phone] TATE GOOD [facility] 04/26/2024 TATE ENCARNACIONDOB: [id number] [facility] [address] 224Tel: ~~(4 1 (HP) Primary Insurance:MolinaPolicy Number: [id number] Date:9114-62-34SV[address] [address]HH: [phone] [facility] 04/25/2024 TATE ENCARNACIONB: [id number] [facility] [address] 224Tel: ~~(4 1 (HP) Primary Insurance:MolinaPolicy Number: [id number] Date:2620-06-04NA[address] [address]QB: [phone] TATEANNAMARIA GOOD [facility] 04/24/2024 TATE ENCARNACIONB: [id number] [facility] [address] 224Tel: ~~(4 1 (HP) Primary Insurance:MolinaPolicy Number: [id number] Date:4813-62-16EG [address] [place] [address]: [phone] TATEANNAMARIA GOOD [facility] 04/24/2024 TATE ENCARNACIONB: [id number] [facility] [address] 224Tel: ~~(4 1 (HP) Primary Insurance:MolinaPolicy Number: [id number] Date:1118-27-75HP [address] [place] [address]JU: [phone] [facility]
--- OUTSIDE RECORDS SUMMARY | 2024-08-27 11:00 | XMS_ITS ---
Author Organization The [facility] in [place] Address [address] [place] [address] Care Team Providers Care Painter Ski Edge Name Role Phone Kira Heredia Primary Care Provider Allergies No Known Allergies REASON FOR VISIT Self Pay, Issues with Right Hand, Has done therapy Medications Medication SIG (Take, Route, Frequency, Duration) Notes Start Date End Date Status Testosterone Cypionate 200 MG/ML 1 mL Intramuscular every other week for 28 days 08/21/2024 Active Omeprazole 40 MG Oral for 30 Days Active Levothyroxine Sodium 125 MCG TAKE 1 TABLET BY MOUTH EVERY DAY for 30 days Active PROzac 20 MG 1 capsule Orally Onc e a day for 30 days 04/17/2024 Active Fish Oil 1000 MG TAKE 1 CAPSULE BY [facility] THREE TIMES DAILY FOR 30 DAYS for 30 Active Vascepa 1 GM 2 capsules with meal s Orally Twice a day for 30 days 04/20/2024 Active Zenpep 11945-79664 UNIT as directed Orally Active Vitamin D3 Super Strength 50 MCG (1999 UT) 1 capsule Orally Once a day for 30 days 04/20/2024 Active BD Syringe/Needle 23G X 1 3 ML as directed for 90 days 06/21/2024 Acti ve Cholestyramine 4 GM/DOSE TAKE FOUR GRAM BY MOUTH TWICE DAILY Oral for 100 Days Active Social History Tobacco Use: Social History Observation Description Date Details (start date - stop date) Never Smoker NA - NA Tobacco Use/Smoking Question Answer Notes Patient is a nonsmoker Tobacco use other than smoking: Question Answer Notes Are you an other tobacco user? Yes c hewing tobacco Vital Signs Blood pressure systolic 132 mm Hg 08/28/19 25 Blood pressure diastolic 82 mm Hg 025 Height 67 in 08/27/2024 Weight 227.0 lbs 08/27/2024 BMI 35.55 kg/m2 08/27/2024 Procedures Procedure Date Ordered Date Performed Result Body Sit e *CARDIO Stress Test - Cardiolite 08/27/2024 N/A Encounters Encounter Location Date Provider Diagnosis [facility] [address] [place] [address] 08/27/2024 Kira Heredia Intermittent chest pain R07.9 ; Fatigue R53.83 and Right hand pain M79.641 Assessments Encounter Date Diagnosis (ICD Code) Assessment Notes Treatment Notes Treatment Clinical Notes Section Notes 08/27/2024 Intermittent chest pain (ICD-10 - R07.9) 08/27/2024 Fatigue (ICD-10 - R53.83) still working on getting testosterone and tsh to normal limits discussed revisiting the cpap, wants to wait check vit D level stress test 08/27/2024 Right hand pain (ICD-10 - M79.641) Plan Of Treatment Treatment Notes Assessment Notes Fatigue still working on getting testosterone and tsh to normal limits discussed revisiting the cpap, wants to wait check vit D level stress test Pending Test Test Name Order Date MRI Hand RT w/o contrast 08/27/2024 *CARDIO Stress Test - Cardiolite 025 Next Appt Details Follow Up: 3 Months,Shaylee menezes son: Provider Name:Kira britton, 09/13/2024 09:00:00 AM, [address] [place], [address], Progress Notes * Kody ENCARNACIONDOB: 1 (53 yo M)Acc No.[id number]:08/27/2024 Progress Note Patient: Kody PAVON Provider: Herrera Heredia ([facility] [place]), BRAND ATTENDANT :1970 A ge:53 Y S ex:Male Date:08/27/2024 Address:[address] [place], [place] [address] Check In:02:46 PM ESTCheck O ut:03:27 PM EST Subjective: * Chief Complaints: * 1 . Self Pay. 2. Issues with Right Hand. 3. Has done therapy. * HPI: G eneral: Patient presents to the office today after his INS person from [place] recommended he get a second opinion for his righ thand pain as well as a CT.he also states he has been extremely fatigued and this morning he had an episode of chest pressure that radiated into his back and mad ehim short of breath. He states that after the episode he was so tired he went back to bed until 1400 today. He denies any chest pain/pressure at this time. 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 * ROS: G eneral/Constitutional: Fatigue a dmits. C hronic fatigue a dmits. S leep problems a dmits, broken sleep, excessive daytime sleepiness. N ap during the day a dmits. C ardiovascular: Lightheadedness/dizziness d enies. C hest tightness/ heavy pressure d enies at this time but states he did have pain/pressure in his chest this morning.. S welling of legs, ankles, or feet d enies. P alpitations d enies. ? R espiratory: Difficulty breathing d enies. S leep apnea a dmits.? M usculoskeletal: Joint pain a dmits right hand. 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 Modified On:05/01/2024/U Status:confirmed M79.2 Neuralgia Modified On:03/10/2025W/U Status:confirmed * Medical History: M edical History Verified. * Surgical History: D enies Past Surgical History. * Hospitalization/Major Diagno stic Procedure: D enies Past Hospitalization. * Family History: F ather: alive, diagnosed with Diabetes mellitus without mention of complication, type II or unspecified type, not stated as uncontrolled, Unspecified essential hypertension. M other: . B rother(s): alive. S ister(s): . 1 brother(s) , 2 sister(s) . 3 son(s) . .? * Social History: T obacco Use: T obacco use other than smoking A re you an other tobacco user? Y es chewing tobacco Tobacco Use/Smoking P atient is a n onsmoker * Medications: T aking BD Syringe/Needle(Syringe/Needle (Disp)) 23G X 1 3 ML Miscellaneous as directed , Taking Cholestyramine 4 GM/DOSE Powder TAKE FOUR GRAM BY MOUTH TWICE DAILY Oral , Taking Fish Oil 1000 MG Capsule TAKE 1 CAPSULE BY MOUTH THREE TIMES DAILY FOR 30 DAYS , Taking Levothyroxine Sodium 125 MCG Capsule TAKE 1 TABLET BY MOUTH EVERY DAY , Taking Omeprazole 40 MG Capsule Delayed Release Oral , Taking PROzac(FLUoxetine HCl) 20 MG Capsule 1 capsule Orally Once a day , Taking Testosterone Cypionate 200 MG/ML Solution 1 mL Intramuscular every other week , Taking Vascepa(Icosapent Ethyl) 1 GM Capsule 2 capsules with meals Orally Twice a day , Taking Vitamin D3 Super Strength 50 MCG (2000 UT) Capsule 1 capsule Orally Once a day , Taking Zenpep(Pancrelipase (Ucj-Bizy-Nnmc)) 39432-79081 UNIT Capsule Delayed Release Particles as directed Orally , Medication List reviewed and reconciled with the patient * Allergies: N .K.D.A. Objective: * Vitals: W t:227.0lbs, Ht: 67 in, BP:132/82mm Hg, BMI:35.55Index, Ht-cm: 170.18 cm, Wt-k.97 kg. * Examination: P hysical Exam: GENERAL: w ell developed, well nourished, in no acute distress. HEAD: n ormocephalic/atraumatic. EYES: p upils equal, round and reactive to light, conjunctivae and sclerae normal. NECK: n linsey supple, no masses or palpable cervical nodes, trachea midline, thyroid without nodules, masses, tenderness, or enlargement. CHEST: n o chest wall deformity, no chest wall tenderness.? LUNGS: n ormal respiratory effort and clear to auscultation, no wheezes, rales, or rhonchi, good air exchange. CARDIO: r egular rate and rhythm, normal S1 and S2, nor murmur, rub, or gallop. PULSES: n ormal capillary refill. MUSCULOSKELETAL: n o deformity or scoliosis noted, no erythema, edema, effusion, or ecchymosis.. EXTREMITY: n o clubbing, cyanosis, edema, or deformity with normal ROM in both upper and lower bilateral extremities. NEUROLOGIC: g rossly normal. LYMPH NODES: n o cervical adenopathy, nodes normal. MENTAL STATUS: a lert and oriented x3, normal mood and affect. Assessment: * Assessment: 1. I ntermittent chest pain - R07.9 (Primary) 2 . F atigue - R53.83 ? 3 . R ight hand pain - M79.641 Plan: * Treatment: 2. F atigue Notes: still working on getting testosterone and tsh to normal limits discussed revisiting the cpap, wants to wait check vit D level stress test 3. R ight hand pain I maging: MRI Hand RT w/o contrast * Preventive Medicine: Screenings/Counseling: B LA ACTION PLAN Above Normal BMI Follow-up D ietary management education, guidance, and counseling * Follow Up: 3 Months,prn * * Electronically signed by Pinky Heredia NP, GEOGRAPHIC INFORMATION SYSTEMS ANALYST.BRAND [id number] on 08/29/2024 at 10:17 AM EDT Sign off status: Completed Visit Status: C HK (Check Out) true * Provider: Herrera Heredia ([facility])[place] Date: 0 08/27/2024 Generated for Keisha garcia/Claribel/Antonetteitting on: 0 08/31/2024 08:01 AM EDT History and Physical Notes * HPI (History of Present Illness) Category Sub-Category Detail Notes Category Not es General Patient presents to the office today after his INS person from [place] recommended he get a second opinion for his righ thand pain as well as a CT.he also states he has been extremely fatigued and this morning he had an episode of chest pressure that radiated into his back and mad ehim short of breath. He states that after the episode he was so tired he went back to bed until 1400 today. He denies any chest pain/pressure at this time. 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 second opinion from ortho and MRI right hand chest felt funny , liitle uncomfortable and in back too was sweaty Examination Category Sub-Category Detail Notes Category Not es Physical Exam GENERAL: well developed, well nourished, in no acute distress HEAD: normocephalic/atraum atic EYES: pupils equal, round and reactive to light, conjunctivae and sclerae normal NECK: neck supple, no mass es or palpable cervical nodes, trachea midline, thyroid without nodules, masses, tenderness, or enlargement CHEST: no chest wall deform ity, no chest wall tenderness LUNGS: normal respiratory e ffort and clear to auscultation, no wheezes, rales, or rhonchi, good air exchange CARDIO: regular rate and rhy thm, normal S1 and S2, nor murmur, rub, or gallop PULSES: normal capillary ref ill MUSCULOSKELETAL: no deformity or scol iosis noted, no erythema, edema, effusion, or ecchymosis. EXTREMITY: no clubbing, cyanosi s, edema, or deformity with normal ROM in both upper and lower bilateral extremities NEUROLOGIC: grossly normal LYMPH NODES: no cervical adenopat hy, nodes normal MENTAL STATUS: alert and oriented x 3, normal mood and affect
--- OUTSIDE RECORDS SUMMARY | 2024-08-27 12:09 | XMS_ITS ---
Author Organization The [facility] in [place] Address [address] [place] [address] Care Team Providers Care Station Inspector Name Role Phone Kira Heredia Primary Care Provider Reason For Referral Diagnosis 1 Hand pain (M79.643) Referral Organization [facility] Referring Provider First Name Kira Referring Provider Last Name Yan Referring Provider [facility] icine Referred Provider Jose Pfeiffer) Referred Provider Specialty Orthopedic S urgery General Notes Taylor Bennett 2024 08:40:44 AM >Second Opinion Referral Priority Routine REASON FOR VISIT Ortho Referral Encounters Encounter Location Date Provider Diagnosis [facility] [address] [place] [address] 08/27/2024 Kirabeth Heredia Hand pain M79.643 Assessments Encounter Date Diagnosis (ICD Code) Assessment Notes Treatment Notes Treatment Clinical Notes Section Notes 08/27/2024 Hand pain (ICD-10 - M79.643) Plan Of Treatment Referrals Referral Date Details 08/28/2024 08/28/2024Jose ( James) Next Appt Details Provider Name:Kira britton, 09/13/2024 09:00:00 AM, [address] [place], [address], Progress Notes * Kody ENCARNACIONDOB: 1 (53 yo M)Acc No.[id number]:08/27/2024 Patient: Rafael LANGEKody MCKNIGHT :1970 A ge:53 Y S ex:Male Address:[address] [place] [address] Subjective: * Chief Complaints: * O rtho Referral * Medical History: * Surgical History: * Hospitalization/Major Diagno stic Procedure: * Medications: Objective: * Vitals: * Physical Examination: Assessment: * Assessment: 1. H and pain - M79.643 (Primary) Plan: * Treatment: * Procedure Codes: * true * Date: Generated for Keihsa garcia/Claribel/eTransmitting on: 0 08/31/2024 08:01 AM EDT Consultation Request Notes Referral Date Referring Provider Referred Provider Not es 08/28/2024 Kira Heredia Andrew (James)
--- OUTSIDE RECORDS SUMMARY | 2024-08-30 05:15 | XMS_ITS ---
Author Organization The [facility] in [place] Address [address] [place] [address] Care Team Providers Care Multi Punch Operator Name Role Phone Kira Heredia Primary Care Provider REASON FOR VISIT testosterone Encounters Encounter Location Date Provider Diagnosis [facility] [address] [place] [address] 08/30/2024 Kira Heredia Low testosterone E29 .1 Assessments Encounter Date Diagnosis (ICD Code) Assessment Notes Treatment Notes Treatment Clinical Notes Section Notes 08/30/2024 Low testosterone (ICD-10 - E29.1) Plan Of Treatment Next Appt Details Provider Name:Kira britton, 09/13/2024 09:00:00 AM, [address] [place], [address], Medications Administered Medication Instructions Date of Administration Dosage Notes Testosterone Cypionate 08/30/2024 0.75 mL Progress Notes * Kody ENCARNACIONDOB: 1 (53 yo M)Acc No.[id number]:08/30/2024 Progress Note Patient: Kody PAVON Provider: Herrera Heredia ([facility]), SPACE PHYSICIST :1970 A ge:53 Y S ex:Male Date:08/30/2024 Address:[address], [facility] Check In:09:02 AM ESTCheck O ut:09:10 AM EST Subjective: * Chief Complaints: * T estosterone * HPI: G eneral: presents to the office for standing order testosterone injection. * Active Problem List E03.9 Hypothyroidism Modified On:04/22/2023U Status:confirmed G47.30 Sleep apnea Modified On:04/08/2023U Status:confirmed E78.1 Hypertriglyceridemia Modified On:04/22/2023U Status:confirmed G43.909 Migraine Modified On:04/17/2024U Status:confirmed K58.9 Irritable bowel Modified On:04/17/2024U Status:confirmed E55.9 Vitamin D deficiency Modified On:04/20/2024U Status:confirmed E29.1 Low testosterone Modified On:04/26/2024U Status:confirmed M15.9 Polyarticular osteoa rthritis Modified On:05/01/2024U Status:confirmed M79.2 Neuralgia Modified On:06/18/2024 Status:confirmed * Medical History: * Surgical History: * Hospitalization/Major Diagno stic Procedure: * Medications: Objective: * Vitals: Assessment: * Assessment: 1. L ow testosterone - E29.1 (Primary) Plan: * Treatment: * Therapeutic Injections: Testosterone Cypionate 200mg : 0.75 mL (Route: Intramuscular) given by WOJCIECH Benavides on left gluteus (Low testosterone) * Procedure Codes: 9 6372 THERAP.INJ. OF MED. INTRAMUSCULAR OR [id number] TESTOST CYPIONATE 1MG * * Sign off status: Completed Visit Status: C HK (Check Out) true * Provider: Herrera Heredia ([facility]), SPACE PHYSICIST Date: 08/30/2024 Generated for Maddyi ng/Claribel/eTransmitting on: 08/31/2024 08:01 AM EDT History and Physical Notes * HPI (History of Present Illness) Category Sub-Category Detail Notes Category Not es General presents to the office for standing order testosterone injection
--- OUTSIDE RECORDS SUMMARY | 2024-08-31 08:01 | XMS_ITS | Clinical Summary ---
Author Organization [facility] Address [address] [place] [address] Care Team Providers Care Burn Table Operator Name Role Phone Kira Heredia MD Unavailable [phone] Unallocated, [facility] Provider Primary Care Provi radha Loco Castellanos DO Unavailable [phone] Allergies No known active allergies Medications cholecalciferol (Vitamin D-3) 50 MCG (1999) capsule Take 2,000 Units by mouth Daily 04/23/2024 Active cholestyramine (Questran) 4 GM/DOSE powder Take 4 g by mouth in the morning and 4 g in the evening. Take with meals. 05/14/2024 Active FLUoxetine (PROzac) 20 MG capsule Take 20 mg by mouth Daily 05/14/2024 Active Vascepa 1 g capsule Take 2 capsules by mouth in the morning and 2 capsules in the evening. Take with meals. 04/20/2024 Active levothyroxine (Synthroid, Levoxyl) 50 MCG tablet Take 50 mcg by mouth Daily 04/11/2024 Active Mobic 15 MG tablet Take 15 mg by mouth 1 (one) time each day at the same time 05/14/2024 Active omeprazole (PriLOSEC) [address] capsule Take 40 mg by mouth in the morning and 40 mg before bedtime. 05/11/2024 Active Active Problems Problem Noted Date Diagnosed Date Swelling of right hand 05/15/2024 Joint stiffness of hand, right 05/15/2024 Encounters Date Type Department Care Team Description 06/12/2024 Telephone [facility] [address] [place] [address] Jazlyn Lemus, JAIME OT status; fu (DC) from Last 3 Months Social History Tobacco Use Types Packs/Day Years Used Date Smoking Tobacco: Never Smokeless Tobacco: Current Chew Tobacco Cessation:Ready to Q uit: Not Asked; Counseling Given: Not Answered Alcohol Use Standard Drinks/Week Comments Yes 0 (1 standard drink = 0.6 oz pur e alcohol) Sex and Gender Information Value Date Recorded Sex Assigned at Not on file Legal Sex Male 4:45 PM EST Gender Identity Not on file Sexual Orientation Not on file Last Filed Vital Signs Vital Sign Reading Time Taken Comments Blood Pressure 138/88 05/17/2024 8:22 AM EST Pulse 74 05/17/2024 8:22 AM EST Temperature - - Respiratory Rate - - Oxygen Saturation - - Inhaled Oxygen Concentration - - Weight 108 kg (238 lb) 05/17/2024 8:22 AM EST Height 165.1 cm (5' 5 ) 05/17/2024 8:22 AM EST Body Mass Index 39.61 05/17/2024 8:22 AM EST Plan of Treatment Upcoming Encounters Date Type Department Care Team (Late st Contact Info) Description 11/19/2024 8:20 AM EDT Office Visit MARY LARA [address] [place] [address] Sofie Weller NP [address] [place] [address] Health Maintenance Due Date Last Done Comments CT Colonography 1970 Colonoscopy 1970 Colorectal Cancer Screening 1970 FIT-DNA 1970 FIT 1970 FOBT 1970 Sigmoidoscopy 1970 Influenza Vaccine (Season Ended) 2024 Insurance PATTEN [employer] Care Teams Burn Table Operator Relationship Specialty Start Date End Date Unallocated, Noms Gianluca, [address] [place] [address] PCP - General Family Medicine 04/19/24 Kira Heredia MD [address] [place] [address] Referring Physician Family Medicine 04/19/24 Loco Castellanos DO [address] [address] Referring Physician Neurology 05/17/24
--- OUTSIDE RECORDS SUMMARY | 2024-08-31 08:01 | XMS_ITS | Patient Health Record ---
Author Organization The [facility] in [place] Address [address] [place] [address] Care Team Providers Care Golf Cart Assembler Name Role Phone Kira Garrison Primary Care Provider [phone] PeternikhilReid [phone] Allergies No Known Allergies Results Component Value Reference Range Notes Vitamin B12 Reviewed date:04/18/2024 09:12:24 AM Interpretation: Performing Lab: Notes/Report: [facility] , Vitamin B12 256 194-1725 pg/mL Performed at: [facility] [address] [id number] Director Government: Atul Reid PhD, Phone: [phone] Performing Lab: see note - [facility] LB TSH Reviewed date:06/06/2024 09:35:27 AM Interpretation: Performing Lab: Notes/Report: The [facility] , Thyroid Stimulating Hormone 46.230 0.358-3.740 uIU/mL Performing Lab: see note ML - [facility] LB T4 Reviewed date:06/06/2024 09:35:27 AM Interpretation: Performing Lab: Notes/Report: [facility] , T4 Thyroxine 0.90 4.50-12.10 ug/dL Performing Lab: see note ML - The [facility] LB LIPID PROFILE Reviewed date:06/06/2024 09:35:27 AM Interpretation: Performing Lab: Notes/Report: [facility] , Triglycerides 1473 <=150 mg/dL Cholesterol 245 <=200 mg/dL HDL Cholesterol 36 40-60 mg/dL > or =60 mg/dl - LOW CARDIOVASCULAR RISK <40 mg/dl - HIGH CARDIOVASCULAR RISK VLDL CHOLESTEROL 294.6 Chol HDL Ratio 6.8 4.4 - 7.1 AVERAGE RISK 7.1 - 11.0 MODERATE RISK >11.0 HIGH RISK 3.3 - 4.4 LOW RISK Performing Lab: see note ML - [facility] LB FREE T3 Reviewed date:06/06/2024 09:35:27 AM Interpretation: Performing Lab: Notes/Report: [facility] , Free T3 1.80 2.18-3.98 pg/mL Performing Lab: see note ML - [facility] LB DIRECT LDL Reviewed date:06/06/2024 09:35:27 AM Interpretation: Performing Lab: Notes/Report: [facility] , LDL Cholesterol Direct 49 <100 mg/dl OPTIMAL 100-129 mg/dl NEAR OR ABOVE OPTIMAL 160-189 mg/dl HIGH >190 mg/dl VERY HIGH 130-159 mg/dl BORDERLINE HIGH Performing Lab: see note - [facility] HLA B 27 Disease Association Reviewed date:05/22/2024 08:17:45 AM Interpretation: Performing Lab: Notes/Report: [facility] , HLA B 27 Disease Association Negative . Director Government: Elizabeth Quevedo PhD, Phone: [phone] by the Food and Drug Administration. The FDA has determined that such clearance or approval is supplemental method when necessary. technique. Sequence Based Typing (SBT) may be used as a This test was developed and its performance characteristics This test was performed using Polymerase Chain Reaction (PCR) and Sequence Specific Oligonucleotide Probes (SSOP) determined by [facility]. It has not been cleared or approved [address] [place] [id number] Performed at: [address] [place] [address] DNA not necessary. B27 allele interpretation for all loci based on IMGT/HLA database version 3.51.0 If you have questions, please call HLA customer service HLA Lab CLIA ID Number [id number] at or email at [email or web address]. HLA-B*27 Negative Performing Lab: see note - [facility] LB Erythrocyte Sedimentation Ra te Reviewed date:05/22/2024 08:17:45 AM Interpretation: Performing Lab: Notes/Report: [facility] , Erythrocyte Sedimentation Rate 16 <=20 mm/hr Performing Lab: see note ML - [facility] LB RHEUMATOID FACTOR Reviewed date:05/22/2024 08:17:45 AM Interpretation: Performing Lab: Notes/Report: [facility] , Rheumatoid Factor (RF) 13.8 <14.0 IU/mL Director Government: Atul Reid PhD, Phone: [phone] [address] [place], [place] [phone] Performed at: - [facility] [place] Performing Lab: see note - [facility] LB PROF CHEM 8 (BAS METB) Reviewed date:05/22/2024 08:17:45 AM Interpretation: Performing Lab: Notes/Report: [facility] , Sodium 138 136-145 mmol/L Potassium 4.3 3.5-5.1 mmol/L Chloride 101 98-107 mmol/L Carbon Dioxide 28.0 21.0-32.0 mmol/L Anion Gap 13.3 Glucose 152 74-106 mg/dL Blood Urea Nitrogen 15.0 7.0-18.0 mg/dL Creatinine 1.31 0.70-1.30 mg/dL Estimated GFR ( Valentina >60 >=60 mL/min/1.73m 2 Estimated GFR (Non- Jen 57 >=60 mL/min/1.73m 2 BUN Creatinine Ratio 11.5 Calcium 9.1 8.5-10.1 mg/dL Performing Lab: see note ML - [facility] LB CRP Reviewed date:05/22/2024 08:17:45 AM Interpretation: Performing Lab: Notes/Report: [facility] , C Reactive Protein <0.50 <=0.50 mg/dL Performing Lab: see note ML - [facility] LB CBC AUTO DIFF Reviewed date:05/22/2024 08:17:45 AM Interpretation: Performing Lab: Notes/Report: [facility] , White Blood Count 5.8 4.0-11.0 10 3/uL Red Blood Count 4.03 4.70-6.10 10 6/uL Hemoglobin 13.8 14.0-18.0 g/dL Hematocrit 39.4 42.0-54.0 % Mean Corpuscular Volume 97.8 80.0-94.0 fL Mean Corpuscular Hemoglobin 34.2 25.9-34.0 pg Mean Corpuscular HGB Conc 35.0 29.9-35.2 g/dL Red Cell Distribution Width 13.1 11.0-15.0 % Platelet Count 184 150-450 10 3/uL Mean Platelet Volume 9.9 9.5-13.5 fL Neutrophils Percent Auto 65.4 43.0-75.0 % Lymphocytes Percent Auto 25.6 20.5-60.0 % Monocytes Percent Auto 6.2 1.7-12.0 % Eosinophils Percent Auto 1.9 0.9-7.0 % Basophils Percent Auto 0.7 0.2-2.0 % Immature Granulocytes Pct Auto 0.2 0.0-0.5 % Neutrophils Absolute Auto 3.8 1.4-6.5 10 3/uL Lymphocytes Absolute Auto 1.5 1.2-3.8 10 3/uL Monocytes Absolute Auto 0.4 0.3-0.8 10 3/uL Eosinophils Absolute Auto 0.1 0.0-0.7 10 3/uL Basophils Absolute Auto 0.0 0.0-0.1 10 3/uL Immature Granulocytes Abs Auto 0.01 0.00-0.03 10 3/uL Performing Lab: see note - [facility] LB MARY by IFA Reviewed date:05/22/2024 08:17:18 AM Interpretation: Performing Lab: Notes/Report: [facility] , Antinuclear Antibodies, IFA Negative . International Consensus on Antinuclear Antibody (MARY) Borderline 1:80 Negative <1:[address] [place] [phone] Patterns (ICAP). ANApatterns.org, the official website for the For more information about Hep-2 cell patterns use Positive >1:80 Director Government: Atul Reid PhD, Phone: [phone] Performed at: - [facility] nomenclature: AC-0 Performing Lab: see note - [facility] LB MR head/brain wo con Reviewed date:05/11/2024 12:35:06 PM Interpretation: Performing Lab: Notes/Report: Source Facility: [facility] [place] [address] [place] [address] Magnetic Resonance Report Signed Patient: KODY ENCARNACION MR#: [id number] : 1970 Acct:[id number] Age/Sex: 53 / M ADM Date: 05/08/24 Loc: MRI Attending Dr: KIRA GARRISON Ordering Physician: KIRA GARRISON Date of Service: 05/08/24 Procedure(s): MR head/brain wo con Accession Number(s): [id number] cc: KIRA GARRISON [place] [address] Patient Name: KODY ENCARNACION MRN: [id number] date: 1970 Sex: M Assigned Patient Location: MRI Current Patient Location: MRI Accession/Order Number: [id number] Exam Date: 05/08/2024 09:00 Report Date: 05/08/2024 12:59 At the request of: KIRA GARRISON Procedure: MR head/brain wo con EXAM: MR head/brain wo con HISTORY: Migraine COMPARISON: None. TECHNIQUE: Multiplanar multisequence MR imaging of the brain was performed without intravenous contrast. FINDINGS: Calvarium/skull base: No focal marrow replacing lesion suggestive of neoplasm. Partial bilateral mastoid effusions. Orbits: Grossly unremarkable. Paranasal sinuses: Imaged portions clear Brain: No restricted diffusion. No significant white matter disease. Cavum septum lucidum. Parenchymal volume is appropriate for patient's age. No mass effect, hemorrhage, or hydrocephalus. Grossly normal flow-related signal in the major intracranial arteries and dural sinuses. MR/MR head/brain wo con IMPRESSION: 1. No acute intracranial process. 2. Nonspecific partial bilateral mastoid effusions. Electronically authenticated by: EDUARDO GREEN Date: 05/08/2024 12:59 Dictated By: Eduardo Green M.D. Signed By: 05/08/24 1302 DD/ 1259 TD/TT: Handle Sander Operator: The [address] [address] Magnetic Resonance Report Signed Patient: ANNETTE ENCARNACION MR#: [id number] : 1970 Acct:[id number] Age/Sex: 53 / M ADM Date: 05/08/24 Loc: MRI Attending Dr: KIRA GARRISON Ordering Physician: KIRA GARRISON Date of Service: 05/08/24 Procedure(s): MR head/brain wo con Accession Number(s): [id number] cc: KIRA GARRISON [place] [id number] Patient Name: KODY ENCARNACION MRN: [id number] date: 1970 Sex: M Assigned Patient Location: MRI Current Patient Loca tion: MRI Accession/Order Numb er: [id number] Exam Date: 05/08/2024 09:00 Report Date: 05/08/2024 12:59 At the request of: KIRA GARRISON Procedure: MR head/b rain wo con EXAM: MR head/brain wo con HISTORY: Migraine COMPARISON: None. TECHNIQUE: Multiplan ar multisequence MR imaging of the brain was performed without intravenous contrast. FINDINGS: Calvarium/skull base : No focal marrow replacing lesion suggestive of neoplasm. Partial bilateral ma stoid effusions. Orbits: Grossly unremarkable. Paranasal sinuses: I jack portions clear Brain: No restricted diffusion. No significant white matter disease. Cavum septum lucidum. Parenchymal volume is appropriate for patient's age. No mass effect, hemorrhage, or hydrocephalus. Grossly normal flow-related signal in the major intracranial arteries and dural sinuses. M R/MR head/brain wo con IMPRESSION: 1. No acute intracra nial process. 2. Nonspecific parti al bilateral mastoid effusions. Electronically authenticated by: EDUARDO GREEN Date: 05/08/2024 12:59 Dictated By: Eduardo Green M.D. Signed By: 05/08/24 1302 DD/ 1259 TD/TT: Handle Sander Operator: Occult Blood* Reviewed date:04/19/2024 12:06:25 PM Interpretation: Performing Lab: Notes/Report: [facility] , Occult Blood Negative Performing Lab: see note ML - The [facility] LB LAB TESTING Reviewed date:04/30/2024 03:58:21 PM Interpretation: Performing Lab: Notes/Report: [id number] METABOLIC PANEL 14, COMPREHENSIVE [facility] , Miscellaneous Test SEE SCANN ED REPORT Performing Lab: see note LC - [facility] LB VITAMIN D 25 [place] Reviewed date:04/17/2024 12:59:36 PM Interpretation: Performing Lab: Notes/Report: [facility] , Vitamin D 21.6 30-100 ng/mL Vit D sufficient <20 ng/mL Vit D deficient >100 ng/mL Potential Toxicity 20-<30 ng/mL Vit D insufficient Performing Lab: see note ML - [facility] LB TSH Reviewed date:04/17/2024 12:59:36 PM Interpretation: Performing Lab: Notes/Report: [facility] , Thyroid Stimulating Hormone 27.573 0.358-3.740 uIU/mL Performing Lab: see note ML - [facility] LB T4 Reviewed date:04/17/2024 12:59:36 PM Interpretation: Performing Lab: Notes/Report: [facility] , T4 Thyroxine 4.30 4.50-12.10 ug/dL Performing Lab: see note ML - [facility] PSA SCREENING Reviewed date:04/17/2024 12:59:36 PM Interpretation: Performing Lab: Notes/Report: [facility] , Prostate Specific Antigen Scrn 0.22 <=4.00 ng/mL Performing Lab: see note ML - [facility] LIPID PROFILE Reviewed date:04/17/2024 12:59:36 PM Interpretation: Performing Lab: Notes/Report: [facility] , Triglycerides 3317 <=150 mg/dL Cholesterol 301 <=200 mg/dL HDL Cholesterol 27 40-60 mg/dL > or =60 mg/dl - LOW CARDIOVASCULAR RISK <40 mg/dl - HIGH CARDIOVASCULAR RISK VLDL CHOLESTEROL 663.4 Chol HDL Ratio 11.1 >11.0 HIGH RISK 3.3 - 4.4 LOW RISK 7.1 - 11.0 MODERATE RISK 4.4 - 7.1 AVERAGE RISK Performing Lab: see note ML - [facility] LB LAB TESTING Reviewed date:04/18/2024 09:12:23 AM Interpretation: Performing Lab: Notes/Report: [id number] URIC ACID [facility] , Miscellaneous Test COMMENT . Uric Acid 8.2 mg/dL CB Performed at: [facility] Therapeutic target for gout patients: <6.0 Test Ordered: [id number] Uric Acid Director Government: Atul Reid PhD, Phone: [phone] [address] [place], [place] [phone] Reference Range: 3.8-8.4 Performing Lab: see note LC - [facility] LB INSULIN Reviewed date:04/18/2024 09:12:23 AM Interpretation: Performing Lab: Notes/Report: [facility] , Insulin 15.6 2.6-24.9 uIU/mL Performed at: [facility] Director Government: Atul Reid PhD, Phone: [phone] [address] [place], [place] [phone] Performing Lab: see note - [facility] LB GLYCOHEMOGLOBIN A1C Reviewed date:04/17/2024 12:59:36 PM Interpretation: Performing Lab: Notes/Report: [facility] , Glycohemoglobin A1C 6.1 4.5-6.2 % > 7.0 ADA THERAPEUTIC TARGET < 7.0 ADA RECOMMENDED LIMIT 4.0 - 6.0 ACTION SUGGESTED Estimated Average Glucose 128 Performing Lab: see note ML - [facility] LB FREE T3 Reviewed date:04/17/2024 12:59:36 PM Interpretation: Performing Lab: Notes/Report: [facility] , Free T3 2.15 2.18-3.98 pg/mL Performing Lab: see note ML - [facility] LB DIRECT LDL Reviewed date:04/17/2024 12:59:36 PM Interpretation: Performing Lab: Notes/Report: [facility] , LDL Cholesterol Direct 49 <100 mg/dl OPTIMAL 100-129 mg/dl NEAR OR ABOVE OPTIMAL 160-189 mg/dl HIGH 130-159 mg/dl BORDERLINE HIGH >190 mg/dl VERY HIGH Performing Lab: see note ML - [facility] LB CBC AUTO DIFF Reviewed date:04/17/2024 12:59:36 PM Interpretation: Performing Lab: Notes/Report: [facility] , White Blood Count 5.8 4.0-11.0 10 3/uL Red Blood Count 4.08 4.70-6.10 10 6/uL Hemoglobin 15.2 14.0-18.0 g/dL Hematocrit 40.6 42.0-54.0 % Mean Corpuscular Volume 99.5 80.0-94.0 fL Mean Corpuscular Hemoglobin 37.3 25.9-34.0 pg Mean Corpuscular HGB Conc 37.4 29.9-35.2 g/dL Red Cell Distribution Width 14.0 11.0-15.0 % Platelet Count 232 150-450 10 3/uL Mean Platelet Volume 10.3 9.5-13.5 fL Neutrophils Percent Auto 59.4 43.0-75.0 % Lymphocytes Percent Auto 29.4 20.5-60.0 % Monocytes Percent Auto 6.6 1.7-12.0 % Eosinophils Percent Auto 3.5 0.9-7.0 % Basophils Percent Auto 0.9 0.2-2.0 % Immature Granulocytes Pct Auto 0.2 0.0-0.5 % Neutrophils Absolute Auto 3.5 1.4-6.5 10 3/uL Lymphocytes Absolute Auto 1.7 1.2-3.8 10 3/uL Monocytes Absolute Auto 0.4 0.3-0.8 10 3/uL Eosinophils Absolute Auto 0.2 0.0-0.7 10 3/uL Basophils Absolute Auto 0.1 0.0-0.1 10 3/uL Immature Granulocytes Abs Auto 0.01 0.00-0.03 10 3/uL Performing Lab: see note - [facility] LB Testosterone Reviewed date:08/13/2024 11:42:12 AM Interpretation: Performing Lab: Notes/Report: [facility] , Testosterone 168 264-916 ng/dL [id number]. Adult male reference interval is based on a population of healthy nonobese males (BMI <30) between 19 and 39 years Director Government: Atul Reid PhD, Phone: [phone] [address] [place], [place] [phone] [facility]. Mildred et.al. JCEM 2017,102;4981-3817. PMID: Performed at: - [facility] Performing Lab: see note - [facility] LB TSH Reviewed date:08/13/2024 11:42:12 AM Interpretation: Performing Lab: Notes/Report: [facility] , Thyroid Stimulating Hormone 24.729 0.358-3.740 uIU/mL Performing Lab: see note - [facility] LB T4 Reviewed date:08/13/2024 11:42:12 AM Interpretation: Performing Lab: Notes/Report: [facility] , T4 Thyroxine 3.10 4.50-12.10 ug/dL Performing Lab: see note - [facility] LB PSA SCREENING Reviewed date:08/13/2024 11:42:12 AM Interpretation: Performing Lab: Notes/Report: [facility] , Prostate Specific Antigen Scrn 0.44 <=4.00 ng/mL Performing Lab: see note ML - [facility] LB LIPID PROFILE Reviewed date:08/13/2024 11:42:12 AM Interpretation: Performing Lab: Notes/Report: [facility] , Triglycerides 1318 <=150 mg/dL Cholesterol 215 <=200 mg/dL HDL Cholesterol 37 40-60 mg/dL <40 mg/dl - HIGH CARDIOVASCULAR RISK > or =60 mg/dl - LOW CARDIOVASCULAR RISK VLDL CHOLESTEROL 263.6 Chol HDL Ratio 5.8 4.4 - 7.1 AVERAGE RISK >11.0 HIGH RISK 3.3 - 4.4 LOW RISK 7.1 - 11.0 MODERATE RISK Performing Lab: see note ML - [facility] LB FREE T3 Reviewed date:08/13/2024 11:42:12 AM Interpretation: Performing Lab: Notes/Report: [facility] , Free T3 2.47 2.18-3.98 pg/mL Performing Lab: see note ML - [facility] LB DIRECT LDL Reviewed date:08/13/2024 11:42:12 AM Interpretation: Performing Lab: Notes/Report: [facility] , LDL Cholesterol Direct 50 <100 mg/dl OPTIMAL 130-159 mg/dl BORDERLINE HIGH >190 mg/dl VERY HIGH 100-129 mg/dl NEAR OR ABOVE OPTIMAL 160-189 mg/dl HIGH Performing Lab: see note - [facility] LB CBC AUTO DIFF Reviewed date:08/13/2024 11:42:12 AM Interpretation: Performing Lab: Notes/Report: [facility] , White Blood Count 4.7 4.0-11.0 10 3/uL Red Blood Count 4.17 4.70-6.10 10 6/uL Hemoglobin 14.5 14.0-18.0 g/dL Hematocrit 41.3 42.0-54.0 % Mean Corpuscular Volume 99.0 80.0-94.0 fL Mean Corpuscular Hemoglobin 34.8 25.9-34.0 pg Mean Corpuscular HGB Conc 35.1 29.9-35.2 g/dL Red Cell Distribution Width 14.6 11.0-15.0 % Platelet Count 207 150-450 10 3/uL Mean Platelet Volume 10.0 9.5-13.5 fL Neutrophils Percent Auto 46.1 43.0-75.0 % Lymphocytes Percent Auto 42.1 20.5-60.0 % Monocytes Percent Auto 7.3 1.7-12.0 % Eosinophils Percent Auto 3.2 0.9-7.0 % Basophils Percent Auto 1.1 0.2-2.0 % Immature Granulocytes Pct Auto 0.2 0.0-0.5 % Neutrophils Absolute Auto 2.2 1.4-6.5 10 3/uL Lymphocytes Absolute Auto 2.0 1.2-3.8 10 3/uL Monocytes Absolute Auto 0.3 0.3-0.8 10 3/uL Eosinophils Absolute Auto 0.2 0.0-0.7 10 3/uL Basophils Absolute Auto 0.1 0.0-0.1 10 3/uL Immature Granulocytes Abs Auto 0.01 0.00-0.03 10 3/uL Performing Lab: see note ML - [facility] LB CBC AUTO DIFF Reviewed date:06/06/2024 09:35:27 AM Interpretation: Performing Lab: Notes/Report: [facility] , White Blood Count 7.2 4.0-11.0 10 3/uL Red Blood Count 4.08 4.70-6.10 10 6/uL Hemoglobin 13.7 14.0-18.0 g/dL Hematocrit 39.5 42.0-54.0 % Mean Corpuscular Volume 96.8 80.0-94.0 fL Mean Corpuscular Hemoglobin 33.6 25.9-34.0 pg Mean Corpuscular HGB Conc 34.7 29.9-35.2 g/dL Red Cell Distribution Width 13.4 11.0-15.0 % Platelet Count 196 150-450 10 3/uL Mean Platelet Volume 9.4 9.5-13.5 fL Neutrophils Percent Auto 61.6 43.0-75.0 % Lymphocytes Percent Auto 29.0 20.5-60.0 % Monocytes Percent Auto 6.3 1.7-12.0 % Eosinophils Percent Auto 1.7 0.9-7.0 % Basophils Percent Auto 0.7 0.2-2.0 % Immature Granulocytes Pct Auto 0.7 0.0-0.5 % Neutrophils Absolute Auto 4.4 1.4-6.5 10 3/uL Lymphocytes Absolute Auto 2.1 1.2-3.8 10 3/uL Monocytes Absolute Auto 0.5 0.3-0.8 10 3/uL Eosinophils Absolute Auto 0.1 0.0-0.7 10 3/uL Basophils Absolute Auto 0.1 0.0-0.1 10 3/uL Immature Granulocytes Abs Auto 0.05 0.00-0.03 10 3/uL Performing Lab: see note ML - [facility] LB XR KNEE LT 3V Reviewed date:04/17/2024 04:05:58 PM Interpretation: Performing Lab: Notes/Report: Source Facility: [place] [address] XRay Report Signed Patient: KODY ENCARNACION MR#: [id number] : 1970 Acct:[id number] Age/Sex: 53 / M ADM Date: 04/17/24 Loc: LAB Attending Dr: KIRA GARRISON Ordering Physician: KIRA GARRISON Date of Service: 04/17/24 Procedure(s): XR knee LT 3V Accession Number(s): [id number] cc: KIRA GARRISON [place] [address] Patient Name: KODY ENCARNACION MRN: [id number] date: 1970 Sex: M Assigned Patient Location: LAB Current Patient Location: LAB Accession/Order Number: [id number] Exam Date: 04/17/2024 10:25 Report Date: 04/17/2024 15:32 At the request of: KIRA GARRISON Procedure: XR knee LT 3V EXAM: XR knee LT 3V, XR hand RT min 3V. HISTORY: Left knee pain. COMPARISON: None. TECHNIQUE: Routine views were obtained for left knee and right hand. FINDINGS/IMPRESSION: Left knee: 1. No acute fracture or subluxation. 2. There is mild fragmentation of the tibial tubercle. 3. Mild soft tissue swelling is seen anterior to the patella. Right hand: 1. There is moderate polyarticular osteoarthritis seen at the radiocarpal, first carpometacarpal, metacarpophalangeal and the interphalangeal joints. 2. No acute fracture or subluxation is seen. 3. There are no obvious erosive changes. Electronically authenticated by: MIKEY IRVING Date: 04/17/2024 15:32 Dictated By: Mikey Irving M.D. Signed By: 04/17/24 1535 DD/ 1532 TD/TT: Handle Sander Operator: [place] [address] XRay Report Signed Patient: ANNETTE ENCARNACION MR#: [id number] : 1970 Acct:[id number] Age/Sex: 53 / M ADM Date: 04/17/24 Loc: LAB Attending Dr: KIRA GARRISON Ordering Physician: KIRA GARRISON Date of Service: 04/17/24 Procedure(s): XR kne e LT 3V Accession Number(s): [id number] cc: KIRA GARRISON [place] [id number] Patient Name: KODY ENCARNACION MRN: [id number] date: 1970 Sex: M Assigned Patient Location: LAB Current Patient Loca tion: LAB Accession/Order Numb er: [id number] Exam Date: 04/17/2024 10:25 Report Date: 04/17/2024 15:32 At the request of: KIRA GARRISON Procedure: XR knee LT 3V EXAM: XR knee LT 3V, XR hand RT min 3V. HISTORY: Left knee pain. COMPARISON: None. TECHNIQUE: Routine v iews were obtained for left knee and right hand. FINDINGS/IMPRESSION: Left knee: 1. No acute fracture or subluxation. 2. There is mild fragmentation of the tibial tubercle. 3. Mild soft tissue swelling is seen anterior to the patella. Right hand: 1. There is moderate polyarticular osteoarthritis seen at the radiocarpal, first carpometacarpa l, metacarpophalangeal and the interphalangeal joints. 2. No acute fracture or subluxation is seen. 3. There are no obvi ous erosive changes. Electronically authenticated by: MIKEY IRVING Date: 04/17/2024 15:32 Dictated By: Mikey Irving M.D. Signed By: 04/17/24 1535 DD/ 153 TD/TT: Handle Sander Operator: XR HAND RT MIN 3V Reviewed date:04/17/2024 04:06:04 PM Interpretation: Performing Lab: Notes/Report: Source Facility: [place] [address] XRay Report Signed Patient: KODY ENCARNACION MR#: [id number] : 1970 Acct:[id number] Age/Sex: 53 / M ADM Date: 04/17/24 Loc: LAB Attending Dr: KIRA GARRISON Ordering Physician: KIRA GARRISON Date of Service: 04/17/24 Procedure(s): XR hand RT min 3V Accession Number(s): [id number] cc: KIRA GARRISON [place] [id number] Patient Name: KODY ENCARNACION MRN: [id number] date: 1970 Sex: M Assigned Patient Location: LAB Current Patient Location: LAB Accession/Order Number: [id number] Exam Date: 04/17/2024 10:25 Report Date: 04/17/2024 15:32 At the request of: KIRA GARRISON Procedure: XR hand RT min 3V EXAM: XR knee LT 3V, XR hand RT min 3V. HISTORY: Left knee pain. COMPARISON: None. TECHNIQUE: Routine views were obtained for left knee and right hand. FINDINGS/IMPRESSION: Left knee: 1. No acute fracture or subluxation. 2. There is mild fragmentation of the tibial tubercle. 3. Mild soft tissue swelling is seen anterior to the patella. Right hand: 1. There is moderate polyarticular osteoarthritis seen at the radiocarpal, first carpometacarpal, metacarpophalangeal and the interphalangeal joints. 2. No acute fracture or subluxation is seen. 3. There are no obvious erosive changes. Electronically authenticated by: MIKEY IRVING Date: 04/17/2024 15:32 Dictated By: Mikey Irving M.D. Signed By: 04/17/241534 DD/ 31 TD/TT: Handle Sander Operator: [address] [address] XRay Report Signed Patient: ANNETTE ENCARNACION MR#: [id number] : 1970 Acct:[id number] Age/Sex: 53 / M ADM Date: 04/17/24 Loc: LAB Attending Dr: KIRA GARRISON Ordering Physician: KIRA GARRISON Date of Service: 04/17/24 Procedure(s): XR miller d RT min 3V Accession Number(s): [id number] cc: KIRA GARRISON [place] [id number] Patient Name: KODY ENCARNACION MRN: [id number] date: 1970 Sex: M Assigned Patient Location: LAB Current Patient Loca tion: LAB Accession/Order Numb er: [id number] Exam Date: 04/17/2024 10:25 Report Date: 04/17/2024 15:32 At the request of: KIRA GARRISON Procedure: XR hand R T min 3V EXAM: XR knee LT 3V, XR hand RT min 3V. HISTORY: Left knee pain. COMPARISON: None. TECHNIQUE: Routine v iews were obtained for left knee and right hand. FINDINGS/IMPRESSION: Left knee: 1. No acute fracture or subluxation. 2. There is mild fragmentation of the tibial tubercle. 3. Mild soft tissue swelling is seen anterior to the patella. Right hand: 1. There is moderate polyarticular osteoarthritis seen at the radiocarpal, first carpometacarpa l, metacarpophalangeal and the interphalangeal joints. 2. No acute fracture or subluxation is seen. 3. There are no obvi ous erosive changes. Electronically authenticated by: MIKEY IRVING Date: 04/17/2024 15:32 Dictated By: Mikey Irving M.D. Signed By: 04/17/241534 DD/ 31 TD/TT: Handle Sander Operator: MELISSA Degroot date:04/17/2024 12:59:36 PM Interpretation: Performing Lab: Notes/Report: The [facility] , [place] 129.0 65.0-175.0 ug/dL Performing Lab: see note ML - The [facility] LB Reason For Referral Reason headache for 6 month s Diagnosis 1 Migraine (G43.909) Referral Organization [facility] Referring Provider First Name Kira Referring Provider Last Name Yan Referring Provider [facility] icine Referred Provider Kenzie Null Referred Provider Specialty Neurology Referral Priority Routine Reason IBS Diagnosis 1 Irritable bowel (K58 .9) Referral Organization [facility] Referring Provider First Name Kira Referring Provider Last Name Yan Referring Provider [facility] icine Referred Provider Cristobal Moncada Referred Provider Specialty Gastroentero logy Referral Priority Routine Diagnosis 1 Irritable bowel (K58 .9) Referral Organization [facility] Referring Provider First Name Kira Referring Provider Last Name Yan Referring Provider [facility] icine Referred Provider Alejandra Hayden Referred Provider Specialty Gastroentero logy Referral Priority Routine Diagnosis 1 Left knee pain (M25. 562) Referral Organization [facility] Referring Provider First Name Kira Referring Provider Last Name Yan Referring Provider [facility] icine Referred Provider John Cartagena Referred Provider Specialty Orthopedic S urgery Referral Priority Routine Diagnosis 1 Polyarticular osteoa rthritis (M15.9) Referral Organization [facility] Referring Provider First Name Kira Referring Provider Last Name Yan Referring Provider [facility] icine Referred Provider Abdi Duke Referred Provider Specialty Rheumatology Referral Priority Routine Diagnosis 1 Hand pain (M79.643) Referral Organization [facility] Referring Provider First Name Kira Referring Provider Last Name Yan Referring Provider [facility] icine Referred Provider Jose Pfeiffer) Referred Provider Specialty Orthopedic S urgery General Notes Taylor Bennett 2024 08:40:44 AM >Second Opinion Referral Priority Routine Medications Medication SIG (Take, Route, Frequency, Duration) Notes Start Date End Date Status Vascepa 1 GM 2 capsules with meal s Orally Twice a day for 30 days 04/20/2024 Active Testosterone Cypionate 200 MG/ML 1 mL Intramuscular every other week for 28 days 08/21/2024 Active Zenpep 35895-61691 UNIT as directed Orally Active Vitamin D3 Super Strength 50 MCG (1999 UT) 1 capsule Orally Once a day for 30 days 04/20/2024 Active Omeprazole 40 MG Oral for 30 Days Active Levothyroxine Sodium 125 MCG TAKE 1 TABLET BY MOUTH EVERY DAY for 30 days Active PROzac 20 MG 1 capsule Orally Onc e a day for 30 days 04/17/2024 Active BD Syringe/Needle 23G X 1 3 ML as directed for 90 days 06/21/2024 Acti ve Fish Oil 1000 MG TAKE [address] [facility] THREE TIMES DAILY FOR 30 DAYS for 30 Active Cholestyramine 4 GM/DOSE TAKE FOUR GRAM BY MOUTH TWICE DAILY Oral for 100 Days Active Social History Tobacco Use: Social History Observation Description Date Details (start date - stop date) Never Smoker NA - NA Tobacco Use/Smoking Question Answer Notes Patient is a nonsmoker Tobacco use other than smoking: Question Answer Notes Are you an other tobacco user? Yes c hewing tobacco AUDIT-C (Standard) Question Answer Notes Did you have a drink contain ing alcohol in the past year? Yes How often did you have six o r more drinks on one occasion in the past year? 2 to 4 times a month (2 points) How many drinks did you have on a typical day when you were drinking in the past year? 3 or 4 drinks (1 point) How often did you have a dri nk containing alcohol in the past year? Daily or almost daily (4 points) Points 7 Interpretation Positive Problems Problem Type SNOMED Code ICD Code Onset Dates Problem Status W/U Status Risk Notes Problem Hypothyroidism (94861914) Hypothyroidism (E03.9) Active confirmed Problem Sleep apnea (69554006) Sleep apnea (G47.30) Active confirmed Problem Vitamin D deficiency (85056163) Vitamin D deficiency (E55.9) Active confirmed Problem Migraine (99732746) Migraine (G43.909) Active c onfirmed Problem Hypertriglyceridemia (600790647) Hypertriglyceridemia (E78.1) Active confirmed Problem Low testosterone (767438990) Low testosterone (E29.1) Active confirmed Problem Neuralgia (79015494) Neuralgia (M79.2) Active c onfirmed Problem Irritable bowel (18007478) Irritable bowel (K58.9) Active confirmed Problem Polyarticular osteoarthritis (049016671) Polyarticular osteoarthritis (M15.9) Active confirmed Vital Signs Blood pressure diastolic 82 mm Hg 08/27/2024 Height 67 in 08/27/2024 Blood pressure systolic 132 mm Hg 08/27/2024 Weight 227.0 lbs 08/27/2024 BMI 35.55 kg/m2 08/27/2024 Procedures Procedure Date Ordered Date Performed Result Body Sit e CARDIO Stress Test - Treadmill Exercise 06/13/2024 N/A *CARDIO Stress Test - Cardiolite 08/27/2024 N/A Encounters Encounter Location Date Provider Diagnosis [facility] [address] [place] [address] 08/27/2024 Kira Garrison Intermittent chest p ain R07.9 ; Fatigue R53.83 and Right hand pain M79.641 [facility] [address] [place] [address] 04/17/2024 Kira Garrison Wellness examination Z00.00 ; Migraine G43.909 ; Right hand pain M79.641 ; Left knee pain M25.562 ; Irritable bowel K58.9 and Depression F32.A [facility] [address] [place] [address] 04/20/2024 Kira Garrison Right hand pain M79. 641 ; Hypertriglyceridemia E78.1 ; Left knee pain M25.562 ; Hypothyroidism E03.9 and Vitamin D deficiency E55.9 [facility] [address] [place] [address] 06/13/2024 Kira Garrison Fatigue R53.83 ; Low testosterone E29.1 ; Sleep apnea G47.30 and Hypothyroidism E03.9 [facility] [address] [place] [address] 06/28/2024 Reid Hoy Low testosterone E29 .1 [facility] [address] [place] [address] 07/12/2024 Reid Hoy Low testosterone E29 .1 [facility] [address] [place] [address] 07/24/2024 Kira Garrison Low testosterone E29 .[address] [place] [address] 08/16/2024 Kira Garrison Low testosterone E29 .1 [facility] [address] [facility] [place] [address] 08/30/2024 Kira Garrison Low testosterone E29 .1 [facility] [address] [facility] [place] [address] 11/04/2023 Kira Garrison [facility] [address] [facility] [place] [address] 04/18/2024 Kira Garrison Irritable bowel K58. 9 [facility] [address] [facility] [place] [address] 04/19/2024 Kira Garrison [facility] [address] [facility] [place] [address] 04/23/2024 Kira Garrison [facility] [address] [facility] [place] [address] 04/30/2024 Kira Garrison Left knee pain M25.5 62 and Polyarticular osteoarthritis M15.9 [facility] [address] [facility] [place] [address] 05/11/2024 Kira Garrison [facility] [address] [facility] [place] [address] 06/04/2024 Kira Garrison Wellness examination Z00.00 and Hypothyroidism E03.9 [facility] [address] [facility] [place] [address] 06/06/2024 Kira Garrison Hypothyroidism E03.9 and Hypertriglyceridemia E78.1 [facility] [address] [place] [facility] [place] [address] 06/08/2024 Kira Garrison Hypertriglyceridemia E78.1 [facility] [address] [facility] [place] [address] 06/12/2024 Reid Meyer [facility] [address] [facility] [place] [address] 06/13/2024 Kira Garrison [facility] [address] [facility] [place] [address] 06/18/2024 Kira Yan Fatigue R53.83 and L ow testosterone E29.1 [facility] [address] [facility] [place] [address] 06/28/2024 Kira Garrison [facility] [address] [facility] [place] [address] 07/24/2024 Kira Garrison [facility] [address] [facility] [place] [address] 08/06/2024 Reid Meyer Low testosterone E29 .1 [facility] [address] [facility] [place] [address] 08/09/2024 Kira Garrison Low testosterone E29 .1 [facility] [address] [facility] [place] [address] 08/21/2024 Kira Garrison Hypothyroidism E03.9 and Low testosterone E29.1 [facility] [address] [facility] [place] [address] 08/27/2024 Kira Garrison Hand pain M79.643 Assessments Encounter Date Diagnosis (ICD Code) Assessment Notes Treatment Notes Treatment Clinical Notes Section Notes 04/17/2024 Wellness examination (ICD-10 - Z00.00) ROS done exam done 04/17/2024 Migraine (ICD-10 - G43.909) 04/20/2024 Right hand pain (ICD -10 - M79.641) discussed PT, rheum referral notify office if wants 04/20/2024 Hypertriglyceridemia (ICD-10 - E78.1) recheck trigs month or two discussed healthy lifestyle changes needed pt agrees to work on diet , wt, sugar and alcohol intake add fibrate next? 06/13/2024 Fatigue (ICD-10 - R53.83) due to sleep apnea? low T? hypothyroid? some SOB with exertion can sleep 16 hours at time patient states 06/28/2024 Low testosterone (ICD-10 - E29.1) 07/12/2024 Low testosterone (ICD-10 - E29.1) 07/24/2024 Low testosterone (ICD-10 - E29.1) 08/16/2024 Low testosterone (ICD-10 - E29.1) 08/30/2024 Low testosterone (ICD-10 - E29.1) 08/27/2024 Intermittent chest p ain (ICD-10 - R07.9) 08/27/2024 Fatigue (ICD-10 - R53.83) still working on getting testosterone and tsh to normal limits discussed revisiting the cpap, wants to wait check vit D level stress test 06/06/2024 Hypothyroidism (ICD- 10 - E03.9) 06/06/2024 Hypertriglyceridemia (ICD-10 - E78.1) 06/08/2024 Hypertriglyceridemia (ICD-10 - E78.1) 06/18/2024 Fatigue (ICD-10 - R53.83) 06/18/2024 Low testosterone (ICD-10 - E29.1) 08/06/2024 Low testosterone (ICD-10 - E29.1) 08/09/2024 Low testosterone (ICD-10 - E29.1) 08/21/2024 Hypothyroidism (ICD- 10 - E03.9) 04/18/2024 Irritable bowel (ICD -10 - K58.9) 04/30/2024 Left knee pain (ICD- 10 - M25.562) 04/30/2024 Polyarticular osteoarthritis (ICD-10 - M15.9) 06/04/2024 Wellness examination (ICD-10 - Z00.00) 08/27/2024 Hand pain (ICD-10 - M79.643) 06/04/2024 Hypothyroidism (ICD- 10 - E03.9) 08/21/2024 Low testosterone (ICD-10 - E29.1) 08/27/2024 Right hand pain (ICD -10 - M79.641) 06/13/2024 Low testosterone (ICD-10 - E29.1) check for lab results pt states neurology prescribed cream, was 1000$ 04/20/2024 Left knee pain (ICD- 10 - M25.562) discussed ortho referral wants see how goes 04/17/2024 Right hand pain (ICD -10 - M79.641) 04/17/2024 Left knee pain (ICD- 10 - M25.562) 04/20/2024 Hypothyroidism (ICD- 10 - E03.9) 06/13/2024 Sleep apnea (ICD-10 - G47.30) has not seen needs to revisit 06/13/2024 Hypothyroidism (ICD- 10 - E03.9) on increased dose levo recheck labs 04/20/2024 Vitamin D deficiency (ICD-10 - E55.9) 04/17/2024 Irritable bowel (ICD -10 - K58.9) 04/17/2024 Depression (ICD-10 - F32.A) 06/13/2024 Other need GI and rheum OV notes Plan Of Treatment Pending Test Test Name Order Date CMP (COMPLETE METABOLIC PANEL) CMP (COMPLETE METABOLIC PANEL) 3 HEMOGLOBIN A1C (GLYCO) 04/08/2023 HEMOGLOBIN A1C (GLYCO) 04/17/2024 INSULIN, TOTAL 04/17/2024 INSULIN, TOTAL 04/08/2023 LIPID PANEL (CHOL/TRIG/HDL/LDL) 04/08/20 23 LIPID PANEL (CHOL/TRIG/HDL/LDL) 06/04/19 25 LIPID PANEL (CHOL/TRIG/HDL/LDL) 04/17/19 25 CBC WITH DIFF 04/17/2024 CBC WITH DIFF 06/04/2024 CBC WITH DIFF 04/08/2023 PSA, PROSTATE-SPECIFIC ANTIGEN 3 URIC ACID 04/08/2023 URIC ACID 04/17/2024 MRI Hand RT w/o contrast 08/27/2024 CARDIO Stress Test - Treadmill Exercise 06/13/2024 TESTOSTERONE 08/21/2024 PSA, TOTAL 04/17/2024 STOOL OCCULT BLOOD 04/17/2024 TESTOSTERONE, TOTAL 08/09/2024 VITAMIN B12 04/21/2023 VITAMIN B12 04/17/2024 VITAMIN B12 04/08/2023 MRI BRAIN WO CON 04/17/2024 THYROID PANEL (T4/TSH/FREE T3) 4 THYROID PANEL (T4/TSH/FREE T3) 5 THYROID PANEL (T4/TSH/FREE T3) 3 THYROID PANEL (T4/TSH/FREE T3) 5 THYROID PANEL (T4/TSH/FREE T3) 5 THYROID PANEL (T4/TSH/FREE T3) 5 Testosterone 06/18/2024 Vitamin D 04/08/2023 Vitamin D 04/17/2024 Lipid Panel 06/06/2024 *CARDIO Stress Test - Cardiolite 025 Next Appt Details Provider Name:Kira britton, 09/13/2024 09:00:00 AM, [address] [facility], [place], [address], Medications Administered Medication Instructions Date of Administration Dosage Notes Testosterone Cypionate 06/28/2024 0.75 mL Testosterone Cypionate 07/12/2024 0.75 mL Testosterone Cypionate 07/24/2024 0.75 mL Testosterone Cypionate 08/16/2024 0.75 mL Testosterone Cypionate 08/30/2024 0.75 mL
--- NOTE | 2024-08-31 08:02 | MR_ITS ---
The [address] [address] Patient Name: TATE ENCARNACION MRN: [id number] date: 1970 Sex: M Assigned Patient Location: MRI Current Patient Location: MRI Accession/Order Number: [id number] Exam Date: 08/31/2024 11:25 Report Date: 08/31/2024 11:33 At the request of: NEW GARRISON Procedure: MR hand RT wo con MR hand RT wo con 08/31/2024 9:22 AM SIGNS AND SYMPTOMS: Chronic right hand pain after fall PROTOCOL: Multiplanar multisequence MR images of the right hand without IV contrast COMPARISON: 04/17/2024 FINDINGS: Subcutaneous soft tissue tissues: There is mild nonspecific soft tissue swelling diffusely. No mass. Intrinsic muscles: Within normal limits. Tendons: Intact and normal in signal. Bones: There is normal marrow signal throughout. No evidence of marrow edema to suggest acute or healing fracture. Joint spaces: There is narrowing of the distal interphalangeal joints throughout. There is subcortical cystic change in the third metacarpophalangeal joint involving the head of the third metacarpal. Neurovascular bundle: The neurovascular bundles are intact. MR/MR hand RT wo con IMPRESSION: Degenerative changes are noted in the distal interphalangeal joints and third metacarpophalangeal joint space as above. This is similar to the prior radiograph. Mild nonspecific soft tissue swelling is noted involving the subcutaneous soft tissues. The bones are within normal limits with no evidence of acute or healing fracture. No significant bone marrow edema. Impression dictated by: Ken Xie M.D. 08/31/2024 11:33 AM Dictation Location: [email or web address] Electronically authenticated by: [id number] Y Date: 08/31/2024 11:33
== END 2024-08-31 08:00 | disposition home or self-care (01) ==
LOC: MRI 07:59
PROVIDERS: PCP Nurse Practitioner Family; Visit Provider Nurse Practitioner Family
DX: M79.641 Pain in right hand (principal); M79.89 Other specified soft tissue disorders
CPT/HCPCS: 73218

== ENCOUNTER 2024-09-04 08:29 | Outpatient (OUT) | payer OTHER, SELFPAY ==
--- OUTSIDE RECORDS SUMMARY | 2024-05-14 04:40 | XMS_ITS ---
Author Organization [facility] Address [address] [place] [address] Care Team Providers Care Bean Picker Name Role Phone John Cartagena Unavailable [phone] Kira Heredia Unavailable Unavailable Allergies No Known Allergies Results Component Value Reference Range Notes MARY Reviewed date:06/19/2024 09:54:59 AM Interpretation: Performing Lab: Notes/Report: ESR Reviewed date:06/19/2024 09:55:19 AM Interpretation: Performing Lab: Notes/Report: CRP Reviewed date:06/19/2024 09:55:08 AM Interpretation: Performing Lab: Notes/Report: HLA B27 Reviewed date:06/19/2024 09:54:38 AM Interpretation: Performing Lab: Notes/Report: RHEUMATOID FACTOR Reviewed date:06/19/2024 09:54:48 AM Interpretation: Performing Lab: Notes/Report: SCC- OT EVAL AND TREAT 3X/WE EK FOR 6 WEEKS Reviewed date:05/16/2024 09:41:33 AM Interpretation: Performing Lab: Notes/Report: REASON FOR VISIT LEFT KNEE PAIN Medications Medication SIG (Take, Route, Frequency, Duration) Notes Start Date End Date Status Mobic 15 mg 1 tab(s) orally once a day for 45 days 05/14/2024 Active Vitamin D3 Active Vascepa Active FLUoxetine Active levothyroxine Active Social History Tobacco Use: Social History Observation Description Date Details (start date - stop date) Never Smoker NA - NA AUDIT-C (Standard) Question Answer Notes Did you have a drink contain ing alcohol in the past year? Yes How often did you have six o r more drinks on one occasion in the past year? Never (0 point) How many drinks did you have on a typical day when you were drinking in the past year? 1 or 2 drinks (0 point) How often did you have a dri nk containing alcohol in the past year? Monthly or less (1 point) Points 1 Interpretation Negative Tobacco Control (Standard) Question Answer Notes Tobacco use: Nonsmoker Vital Signs Height 5'5 in 05/14/2024 Weight 230 lbs 05/14/2024 BMI 38.27 05/14/2024 Encounters Encounter Location Date Provider Diagnosis [facility] Office [address] [place] [address] [address] [place] [address] 05/14/2024 John Cartagena Other bursitis of knee, left knee M70.52 ; Stiffness of right hand joint M25.641 and Swelling of right hand M79.89 Assessments Encounter Date Diagnosis (ICD Code) Assessment Notes Treatment Notes Treatment Clinical Notes Section Notes 05/14/2024 Other bursitis of knee, left knee (ICD-10 - M70.52) 05/14/2024 Stiffness of right hand joint (ICD-10 - M25.641) 05/14/2024 Swelling of right hand (ICD-10 - M79.89) 05/14/2024 Other For his right hand stiffness I recommended physical therapy. For his persistent left knee pain after his traumatic bursitis I recommended Mobic 15 mg daily and specifically reviewed precautions of this medication. For his polyarthralgias we will obtain laboratory work. He denies a family history of autoimmune conditions. He will follow-up in 1 month to reassess his progress. Import medication Plan Of Treatment Medication Medication Name Sig Start Date Stop Date Notes Mobic 15 mg 1 tab(s) orally once a day for 45 days 025 Treatment Notes Assessment Notes Other For his right hand stiffness I recommended physical therapy. For his persistent left knee pain after his traumatic bursitis I recommended Mobic 15 mg daily and specifically reviewed precautions of this medication. For his polyarthralgias we will obtain laboratory work. He denies a family history of autoimmune conditions. He will follow-up in 1 month to reassess his progress. Import medication Next Appt Details Follow Up: 4 Weeks, Reason: Progress Notes * TATE ENCARNACIONDOB: 1 (53 yo M)Acc No.[id number]:05/14/2024 Patient: TATE PAVON Provider: Heena Cartagena MD :1970 A ge:53 Y S ex:Male Date:05/14/2024 Address:[address] [place] [address] , [place], [id number] Subjective: * Chief Complaints: * L EFT KNEE PAIN * HPI: [facility] Follow Up Information: Patient presents today for right hand and left knee pain. He reports a fall in February directly onto his left knee and injuring his right hand and then again in March. He reports left knee is significantly improved. Right hand pain is improved but he continues to have stiffness. He reports yesterday morning that he woke up with bilateral hip pain bilateral knee pain and right elbow pain along with right shoulder pain. He denies any recent injury. He reports history of borderline diabetes. [facility] Info per Patient Report: Have you seen another doctor in this practice? N o. S lucretia affected is L eft. J oint or body part affected is w rist/hand, knee. P ain occurred i njury. W ork related: N o. M otor vehicle accident: N o. T hird democrat responsibility: N o. Q uality of pain is m oderate. T ype of pain: d ull. H ave you been seen by a Dentist in the last year? N o. D o you have any dental problems? N o. * ROS: G astrointestinal: Ulcer/Reflux Y es. M usculoskeletal: Joint pain Y es. J oint Swelling Y es. J oint stiffness Y es. N eurological: Numbness/ Tingling Yes. * Medical History: * Surgical History: N o Surgical History documented. * Family History: N o Family History documented.. * Social History: E xercise regularly D o you exercise? Y es. W hat is your place of residence? W here do you live? P rivate home. A MANUEL-C (Standard) D id you have a drink containing alcohol in the past year? Y es, H ow often did you have six or more drinks on one occasion in the past year? N ever (0 point), H ow many drinks did you have on a typical day when you were drinking in the past year? 1 or 2 drinks (0 point), H ow often did you have a drink containing alcohol in the past year? M onthly or less (1 point), P oints 1 , I nterpretation N egative. T obacco Control (Standard) T obacco use: N onsmoker. * Medications: T akinglevothyroxine FLUoxetine Vascepa Vitamin D3 Medication List reviewed and reconciled with the patientTaking levothyroxine Taking FLUoxetine Taking Vascepa Taking Vitamin D3 Medication List reviewed and reconciled with the patient * Allergies: N .K.D.A.no[Allergies Verified] Objective: * Vitals: H t: 5'5 , Wt: 230 lbs, BMI:38.27. * Examination: G eneral examination: E xamination today of his right hand reveals swelling throughout his hand from his metacarpals to his fingertips. He is just short of getting the fingertips to his palm. He is grossly neurovascularly intact. Left knee exam today reveals no joint effusion. He does have a small prepatellar bursitis which she is a reports is significantly improved from previously. Has full knee range of motion. No gross ligamentous instability on exam today. X -ray Imaging Studies: X -rays of his right hand and left knee were reviewed and show no acute abnormalities. . M RI Imaging Studies: Assessment: * Assessment: 1. O ther bursitis of knee, left knee - M70.52 (Primary) 2 . S tiffness of right hand joint - M25.641 3 . S welling of right hand - M79.89 Plan: * Treatment: 2. S welling of right hand L AB: SCC- OT EVAL AND TREAT 3X/WEEK FOR 6 WEEKS (Collection Date & Time - 05/16/2024) L AB: MARY (Collection Date & Time - 06/19/2024) L AB: ESR (Collection Date & Time - 06/19/2024) L AB: CRP (Collection Date & Time - 06/19/2024) L AB: HLA B27 (Collection Date & Time - 06/19/2024) L AB: RHEUMATOID FACTOR (Collection Date & Time - 06/19/2024) 3. O thers Notes: For his right hand stiffness I recommended physical therapy. For his persistent left knee pain after his traumatic bursitis I recommended Mobic 15 mg daily and specifically reviewed precautions of this medication. For his polyarthralgias we will obtain laboratory work. He denies a family history of autoimmune conditions. He will follow-up in 1 month to reassess his progress. Import medication * Procedure Codes: * Follow Up: 4 Weeks Forms: * Images: * Sign off status: Completed true * Provider: Heena Cartagena MD Date: 0 05/14/2024 Generated for Keisha garcia/Claribel/Renan on: 0 09/04/2024 08:35 AM EDT History and Physical Notes * HPI (History of Present Illness) Category Sub-Category Detail Notes Category Not es General Follow Up Information Patient presents tod ay for right hand and left knee pain. He reports a fall in February directly onto his left knee and injuring his right hand and then again in March. He reports left knee is significantly improved. Right hand pain is improved but he continues to have stiffness. He reports yesterday morning that he woke up with bilateral hip pain bilateral knee pain and right elbow pain along with right shoulder pain. He denies any recent injury. He reports history of borderline diabetes. General Info per Patient Report Side affected is Left Joint or body part affected is wrist/miller d, knee Pain occurred injury Work related: No Motor vehicle accident: No Quality of pain is moderate Type of pain: dull Have you seen another doctor in this pra ctice? No Third democrat responsibility: No Have you been seen by a Dentist in the l ast year? No Do you have any dental problems? No Examination Category Sub-Category Detail Notes Category Not es General examination Examinat ion today of his right hand reveals swelling throughout his hand from his metacarpals to his fingertips. He is just short of getting the fingertips to his palm. He is grossly neurovascularly intact. Left knee exam today reveals no joint effusion. He does have a small prepatellar bursitis which she is a reports is significantly improved from previously. Has full knee range of motion. No gross ligamentous instability on exam today. X-ray Imaging Studies X-rays of his right hand and left knee were reviewed and show no acute abnormalities. MRI Imaging Studies
--- OUTSIDE RECORDS SUMMARY | 2024-05-25 07:45 | XMS_ITS ---
Author Organization [facility] Address [address] [place] [address] Care Team Providers Care Executive Director Of Nursing Name Role Phone John Cartagena Unavailable [phone] Kira Heredia Unavailable Unavailable Encounters Encounter Location Date Provider Diagnosis [facility] [address] [place] [address] 05/25/2024 John Cartagena Plan Of Treatment No Information Progress Notes * TATE ENCARNACIONDOB: 1 (53 yo M)Acc No.[id number]:05/25/2024 Patient: Rafael LANGETATE MCKNIGHT :1970 A ge:53 Y S ex:Male Address:[address] [place] [address], [phone] * true * Date: Generated for Printi ng/Fapamelag/eTransmitting on: 0 09/04/2024 08:34 AM EDT
--- OUTSIDE RECORDS SUMMARY | 2024-05-28 05:50 | XMS_ITS ---
Author Organization [facility] Address [address] [place] [address] Care Team Providers Care Dry Wall Nailer Name Role Phone John Cartagena Unavailable [phone] Kira Heredia Unavailable Unavailable Zita Clark Unavailable [phone] Allergies No Known Allergies Results Component Value Reference Range Notes MRI : Hand W/O Contrast [facility] t - [id number] Reviewed date:08/29/2024 09:42:38 AM Interpretation: Performing Lab: Notes/Report: Reason For Referral Reason APPROVED.........PLE ASE OBTAIN AUTHORIZATION FOR MRI RIGHT HAND Diagnosis 1 Swelling of right bonds nd (M79.89) Referral Organization [facility] Referring Provider First Name John Referring Provider Last Name Cartagena Referring Provider Speciality Orthopedic Surgery [facility] Referred Address [place], [place], Procedure 1 MRI Upper Ext NON-Cindy int w/o Dye ([id number]) General Notes Marie Morris 025 02:49:42 PM >NEED DICTATIONAlexandra Amy 05/28/2024 02:52:50 PM >PENDING [facility] # [id number] CLINICAL ATTACHED.............NEED DICTATION TO UPLOADSukhjinder Kimberly 05/28/2024 03:23:43 PM >Printed for [place] Ahumada Monica 05/29/2024 12:14:20 PM >DONEAlexandra Amy 05/29/2024 12:32:29 PM >CLINICAL UPLOADEDAlexandra Amy 05/30/2024 07:51:05 AM >STILL PENDING, Marie Morris 05/31/2024 07:20:27 AM >APPROVED PER SANDOR AUTH #[id number] VALID 05/28/2024-08/26/2024 COPY IN CHART MA NOTIFIED [...] Problem Status W/U Status Risk Notes Problem [id number] Swelling of right hand (M79.89) Active confirmed Problem Fall, initial encounter (W19.XXXA) Active confirmed Encounters Encounter Location Date Provider Diagnosis [facility] Office [address] [facility] [facility] [place] [address] [place] [address] 05/28/2024 [facility] Swelling of right hand M79.89 and [...] * TATE ENCARNACIONDOB: 1 (53 yo M)Acc No.[id number]:05/28/2024 Patient: Rafael JESUS TATE Provider: ELYSE Harris :1970 A ge:53 Y S ex:Male Date:05/28/2024 Address:[address] [place], [place] [id number] Subjective: * Chief Complaints: * L EFT [...] 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
--- OUTSIDE RECORDS SUMMARY | 2024-08-16 13:00 | XMS_ITS ---
Author Name Auto Generated Organization [facility] Care Team Providers Care Talent Program Manager Name Role Phone JUAN ANTONIO WILBURN Attending Unavailable GENOVEVA CHILDS Referring Unavailable SANDRA RODRIGUEZ Attending Unavailable NEW GARRISON Referring Unavailable JUAN ANTONIO WILBURN Attending Unavailable GENOVEVA CHILDS Referring Unavailable JUAN ANTONIO WILBURN Attending Unavailable GENOVEVA CHILDS Referring Unavailable JUAN ANTONIO WILBURN Attending Unavailable GENOVEVA CHILDS Referring Unavailable Mokarmen, Teenaamad A. Admitting Unavailable Mouchli, Mohamad A. Attending Unavailable Mouchamina Mohamad A. Attending Unavailable Mouchli, Mohamad A. Admitting Unavailable JunminiGonzález Talraffy Attending Unavaila ble SarminiGonzález Talal Attending Unavaila ble SarminiAldoClaudio Talal Attending Unavaila ble Mouchli, Mohamad A. Attending Unavailable Mouchli, Mohamad A. Referring Unavailable Ji WILDER Attending Unavailable Mouchli, Mohamad A. Attending Unavailable Mouchli, Mohamad A. Admitting Unavailable Mouchli, Mohamad A. Referring Unavailable Mouchli, Mohamad A. Attending Unavailable Mouchli, Mohamad A. Admitting Unavailable Mouchli, Mohamad A. Referring Unavailable Mouchli, Mohamad A. Admitting Unavailable Mouchli, Mohamad A. Attending Unavailable PROBLEMS No Problem Records Found PROCEDURES No Procedure Records Found RESULTS GASTROENTEROLOGY OFFICE/CLINIC NOTE Obse rved: 08/16/2024 1:00 PM Status: F Source: [facility] Gastroenterology Office/Clin ic Note Chief Complaint Diarrhea improved HPI Staff Established patient is a(n) 53 year old male who presents today for a(n) 1 month follow up. FibroScan machine down so was not able to have FibroScan completed. Will discuss today. Creon effective? yes Any blood thinners? no Any GLP-1 agonists? no History of Present Illness Reviewed HPI collected by staff Review of Systems PHQ Score Initial Depression Screen Score: 0 SCORE All systems reviewed, negative; Except for above Physical Exam Vitals & Measurements HR: 62(Peripheral) BP: 131/78 HT: 67 in HT: 170 cm WT: 228.178 lb WT: 103.5 kg BMI: 35.81 No acute distress Assessment/Plan 1. Irritable bowel syndrome with diarrhea (K58.0: Irritable bowel syndrome with diarrhea) Diarrhea started after drinking alcohol, has not drank since then, past history of drinking about a 6 pack a day Was having over 10 BMs daily Pancreatic enzymes were low in April Previous celiac panel and IBD work up was negative Colonoscopy 05/05: TA removed. Repeat in 7 years Creon prescribed, three times a day with meals Bowels moving well now 2. Blood in stool (K92.1: Melena) Resolved. 3. Fatty liver (K76.0: Fatty (change of) liver, not elsewhere classified) US abd 04/26/24 showed fatty liver - Fibroscan in 3 months - Continue to avoid alcohol 4. Family history of pancreatic cancer, his father just of pancreatic cancer we discussed screening for pancreatic cancer with first-degree relative, we will send him to [facility] for genetic counseling the based on that we will decide if he needs annual imaging for screening I, Syeda Chavez, personally scribed for González Sutton on 08/16/2024 13:49:32. . Follow-up No qualifying data available Problem List/Past Medical History Ongoing Acquired buried penis Alcohol drinker Anemia of chronic disorder (low iron) Benign hypertension (high blood pressure) Black stool Bloating Blood in stool BPH with urinary obstruction Chronic GERD Colon polyps Decreased sexual desire ED (erectile dysfunction) Fatty liver High triglycerides Hypogonadism male Irritable bowel syndrome with diarrhea Obesity due to excess calories Screening PSA (prostate specific antigen) Stress-related physiological response affecting medical condition Thyroid function tests abnormal Historical No qualifying data Procedure/Surgical History Colonoscopy (05/11/2024), Esophagogastroduodenoscopy (05/11/2024). Medications cholestyramine 4 g/9 g Oral Pwdr, 4 gm, Oral, BID, 11 refills Creon 36,000 units oral delayed release capsule, 2 cap(s), Oral, TID, 3 refills Fish Oil, Oral levothyroxine, Daily omeprazole 40 mg Cap-DR, 40 mg= 1 cap(s), Oral, BID, 3 refills Prozac, 20 mg, Oral, Daily Questran 4 g/9 g oral powder, 1 packet(s), Oral, BID tadalafil 20 mg Tab, 20 mg= 1 tab(s), Oral, As Directed, PRN Vascepa 1 g oral capsule, Oral, BID, Not taking Vitamin D3 50 mcg (2000 intl units) oral tablet, chewable, Oral, Daily Allergies No Known Allergies No Known Medication Allergies Social History Alcohol Current, 07/17/2024 Current. Beer. Daily., 04/21/2024 Substance Abuse Current, Marijuana, Daily, 07/17/2024 Never., 04/21/2024 Tobacco Never (less than 100 in lifetime), Chewing tobacco Tobacco Use:. Never, Smokeless tobacco user within last 30 days Smokeless Tobacco Use:. Cigarettes, Oral, 08/16/2024 Never (less than 100 in lifetime) Tobacco Use:. Smokeless tobacco user within last 30 days Smokeless Tobacco Use:. Oral, 07/17/2024 Family History Diabetes mellitus: Father. Hypertension: Father. Immunizations Vaccine Date Status Comments influenza virus vaccine, inactivated - Not Given Patient Refuses Result Comment: Electronical ly Signed By: González Sutton MD\.br\Date and Time Signed: 08/16/24 14:02 EDT\.br\Electronically Co-Signed By: Syeda Chavez MA\.br\Date and Time Co-Signed: 08/16/24 13:53 EDT AMBULATORY VISIT SUMMARY Observed: 07/17 12:36 PM Status: F Source: [facility] Ambulatory Visit Summary TATE ENCARNACION :1970 Visit Date:07/17/2024 Ambulatory Visit Instructions Your Diagnosis Irritable bowel syndrome with diarrhea Blood in stool Fatty liver Your Care Team Attending Physician - González Sutton MD Primary Care Physician - NEW GARRISON CNP This Is Your Medications List pancrelipase (Creon 36,000 units oral delayed release capsule) Contact prescribing physician if questions or concerns cholecalciferol (Vitamin D3 50 mcg (2000 intl units) oral tablet, chewable) cholestyramine (Questran 4 g/9 g oral powder) cholestyramine (cholestyramine 4 g/9 g Oral Pwdr) fluoxetine (Prozac) icosapent (Vascepa 1 g oral capsule) levothyroxine omeprazole (omeprazole 40 mg Cap-DR) tadalafil (tadalafil 20 mg Tab) Procedures Performed Colonoscopy (05/11/2024), Esophagogastroduodenoscopy (05/11/2024). Discharge Vitals Heart Rate (Peripheral) 78 Respiratory Rate 18 Blood Pressure 118/56 Height 170 cm Height 67 in Weight 101 kg Weight 222.667 lb BMI 34.95 What to do next Scheduled Follow-Up Appointments Tuesday 9:45 AM EDT With: AURORA ROMERO, Ji Be Where: [facility] [address] [address]- Medications What How Much When Why Instructions Changed pancrelipase (Creon 36,000 units oral delayed release capsule) 2 Capsules By Mouth 3 times a day Pickup at [facility] Unchanged cholecalciferol (Vitamin D3 50 mcg (2000 intl units) oral tablet, chewable) By Mouth Every day Contact prescribing physician if questions or concerns Unchanged cholestyramine (cholestyramine 4 g/ 9 g Oral Pwdr) 4 Gram By Mouth 2 times a day Contact [...] prescribing physician if questions or concerns Unchanged omeprazole (omeprazole 40 mg Cap-DR) 1 Capsules By Mouth 2 times a day Contact prescribing physician if questions or concerns Unchanged tadalafil (tadalafil 20 mg Tab) 1 Tablets By Mouth As Directed as needed for for erectile dysfunction Pt to take one tab 1 hour prior to sexual activity. Do not exceed 20mg in 24 hours. Contact prescribing physician if questions or concerns Pharmacy Information [facility]: [address] [place] [phone] Allergies No Known Allergies No Known Medication Allergies Problems Ongoing - Any problem that you are currently receiving treatment for. Acquired buried penis Alcohol drinker Anemia of chronic disorder (low iron) Benign hypertension (high blood pressure) Black stool Bloating Blood in stool BPH with urinary obstruction Chronic GERD Colon polyps Decreased sexual desire ED (erectile dysfunction) Fatty liver High triglycerides Hypogonadism male Irritable bowel syndrome with diarrhea Obesity due to excess calories Screening PSA (prostate specific antigen) Stress-related physiological response affecting medical condition Thyroid function tests abnormal Patient Survey You may receive a survey via text or e-mail asking about your office visit. Please share your experience with us by completing your survey. We appreciate your feedback and thank you for choosing us for your care. GASTROENTEROLOGY OFFICE/CLINIC NOTE Obse rved: 07/17/2024 12:36 PM Status: F Source: [facility] Gastroenterology Office/Clin ic Note Chief Complaint diarrhea and blood in stool HPI Staff Established patient is a(n) 53 year old male who presents today for a sick call with c/o diarrhea and blood in stool. 7 year colon recall placed. EGD due in August. Diarrhea: How many BM a day (normal <4): over 10 a day When did it start: last Tuesday07/08/24 Constant? Or alternate with normal BM or constipation: constant diarrhea Associated symptoms: blood in stool for 4 days - bright red Denies history of external hemorrhoids that pt knows of. Did not receive Zenpep, but received the Questran. Has been taking BID. Did feel better at first, but not seeing an improvement in the last week or so. Any blood thinners? no Any GLP-1 agonists? no Celiac Panel Antigliadin IgA: 4 (04/24/24) Antigliadin Ig (04/24/24) Endomysial Antibody IgA: Negative (04/24/24) IgA Quant: 213 (04/24/24) t-Transglutaminase IgA: <2 (04/24/24) t-Transglutaminase IgG: <2 (04/24/24) Stool Studies Calprotectin, Fecal: 15 (04/25/24) History of Present Illness Reviewed HPI collected by staff Review of Systems PHQ Score Initial Depression Screen Score: 2 SCORE All systems reviewed, negative; Except for above Physical Exam Vitals & Measurements HR: 78(Peripheral) RR: 18 BP: 118/56 HT: 67 in HT: 170 cm WT: 101 kg WT: 222.667 lb BMI: 34.95 No acute distress Assessment/Plan 1. Irritable bowel syndrome with diarrhea (K58.0: Irritable bowel syndrome with diarrhea) Diarrhea was stable until the last week Diarrhea started after drinking alcohol, has not drank since then, past history of drinking about a 6 pack a day Having over 10 BMs daily Has blood in stools, started 4 days ago Pancreatic enzymes were low in April Previous celiac panel and IBD work up was negative Colonoscopy 05/05: TA removed. Repeat in 7 years Creon prescribed, three times a day with meals Will consider Imodium and fiber if no relief Avoid alcohol for now 2. Blood in stool (K92.1: Melena) 3. Fatty liver (K76.0: Fatty (change of) liver, not elsewhere classified) US abd 04/26/24 showed fatty liver Schedule Fibroscan to evaluate I, Syeda Chavez, personally scribed for González Sutton on 07/17/2024 13:38:21. . Documentation recorded by Syeda Chavez, accurately reflects the services I performed and decisions made by me. González Sutton MD Follow-up With When Contact Information Lesley ROMERO, González Cadena, [facility], [facility] In 6 weeks [address] [facility], [address] [phone] Additional Instructions: Problem List/Past Medical History Ongoing Acquired buried penis Alcohol drinker Anemia of chronic disorder (low iron) Benign hypertension (high blood pressure) Black stool Bloating Blood in stool BPH with urinary obstruction Chronic GERD Colon polyps Decreased sexual desire ED (erectile dysfunction) Fatty liver High triglycerides Hypogonadism male Irritable bowel syndrome with diarrhea Obesity due to excess calories Screening PSA (prostate specific antigen) Stress-related physiological response affecting medical condition Thyroid function tests abnormal Historical No qualifying data Procedure/Surgical History Colonoscopy (05/11/2024), Esophagogastroduodenoscopy (05/11/2024). Medications cholestyramine 4 g/9 g Oral Pwdr, 4 gm, Oral, BID, 11 refills Creon 36,000 units oral delayed release capsule, 2 cap(s), Oral, TID, 3 refills levothyroxine, Daily omeprazole 40 mg Cap-DR, 40 mg= 1 cap(s), Oral, BID, 3 refills Prozac, 20 mg, Oral, Daily Questran 4 g/9 g oral powder, 1 packet(s), Oral, BID tadalafil 20 mg Tab, 20 mg= 1 tab(s), Oral, As Directed, PRN Vascepa 1 g oral capsule, Oral, BID Vitamin D3 50 mcg (2000 intl units) oral tablet, chewable, Oral, Daily Allergies No Known Allergies No Known Medication Allergies Social History Alcohol Current, 07/17/2024 Current. Beer. Daily., 04/21/2024 Substance Abuse Current, Marijuana, Daily, 07/17/2024 Never., 04/21/2024 Tobacco Never (less than 100 in lifetime) Tobacco Use:. Smokeless tobacco user within last 30 days Smokeless Tobacco Use:. Oral, 07/17/2024 Never (less than 100 in lifetime), Chewing tobacco Tobacco Use:. Smokeless tobacco user within last 30 days Smokeless Tobacco Use:. Oral, 05/07/2024 Family History Diabetes mellitus: Father. Hypertension: Father. Immunizations Vaccine Date Status Comments influenza virus vaccine, inactivated - Not Given Patient Refuses Result Comment: Electronical ly Signed By: González Sutton MD\.br\Date and Time Signed: 07/17/24 13:53 EDT\.br\Electronically Co-Signed By: Syeda Chavez MA\.br\Date and Time Co-Signed: 07/17/24 13:51 EDT REMINDERS Observed: 06/05/2024 8:25 AM Status: F Source: [facility] Reminders From: Glo Hilario I To: [facility], [facility] - Reminders/Recalls; Sent: 06/05/2024 08:25:46 EST Show up: 03/11/2031 08:25:00 EST Subject: Colonoscopy recall Due Date/Time: 05/11/2031 08:25:00 EST Reminder/Recall [address] Sutton 05/11/24 REMINDERS Observed: 05/22/2024 12:59 PM Status: C Source: [facility] Reminders From: Cheryl Christian To: Gina Barbosa; [...] EGD if he is okay with it Patient already on reminder call for Colon & Fibro. I added this to that to schedule all three at the same time. GASTROENTEROLOGY OFFICE/CLINIC NOTE Obse rved: 05/21/2024 9:41 AM Status: F Source: [facility] Gastroenterology Office/Clin ic Note Chief Complaint follow up to egd/colonoscopy HPI Staff Established patient is a(n) 53 year old male who presents today for a follow up to EGD & Colonoscopy on 05/11/24. Pt previously seen with Dr. Hayden, but insurance was denying EGD/Colon stating he was out of network for [facility]. Pt was r/s with Dr. Sutton. Fecal [...] TA removed. Repeat colonoscopy in 7 years. I, Syeda Chavez, personally scribed for González Sutton on 05/21/2024 09:37:51. . Documentation recorded by Veronica Chavez, accurately reflects the services I performed and decisions made by me. González Sutton MD Follow-up No qualifying data available Problem List/Past Medical History Ongoing Acquired buried penis Alcohol drinker Anemia of chronic disorder (low iron) Benign hypertension (high blood pressure) Black stool Bloating BPH with urinary obstruction Chronic GERD Colon polyps Decreased sexual desire ED (erectile dysfunction) Fatty liver High triglycerides Hypogonadism male Irritable bowel syndrome with diarrhea Obesity due to excess calories Screening PSA (prostate specific antigen) Stress-related physiological response affecting medical condition Thyroid function tests abnormal Historical No qualifying data Procedure/Surgical History Colonoscopy (05/11/2024), Esophagogastroduodenoscopy (05/11/2024). Medications cholestyramine 4 g/9 g Oral Pwdr, 4 gm, Oral, BID, 11 refills levothyroxine, Daily omeprazole 40 mg Cap-DR, 40 mg= 1 cap(s), Oral, BID, 3 refills Prozac, 20 mg, Oral, Daily Questran 4 g/9 g oral powder, 1 packet(s), Oral, BID tadalafil 20 mg Tab, 20 mg= 1 tab(s), Oral, As Directed, PRN, Not taking Vascepa 1 g oral capsule, Oral, BID Vitamin D3 50 mcg (2000 intl units) oral tablet, chewable, Oral, Daily Zenpep 60,000 units-189,600 units-252,600 units oral delayed release capsule, See Instructions, 3 refills, Not taking Allergies No Known Allergies No Known Medication Allergies Social History Alcohol Current. Beer. Daily., 04/21/2024 Substance Abuse Never., 04/21/2024 Tobacco Never (less than 100 in lifetime) Tobacco Use:., 05/21/2024 Never (less than 100 in lifetime), Chewing tobacco Tobacco Use:. Smokeless tobacco user within last 30 days Smokeless Tobacco Use:. Oral, 05/07/2024 Family History Diabetes mellitus: Father. Hypertension: Father. Immunizations Vaccine Date Status Comments influenza virus vaccine, inactivated - Not Given Patient Refuses Result Comment: Electronical ly Signed By: González Sutton MD\.br\Date and Time Signed: 05/21/24 09:44 EST\.br\Electronically Co-Signed By: Syeda Chavez MA\.br\Date and Time Co-Signed: 05/21/24 09:42 EST DISCHARGE INSTRUCTIONS Observed: 025 9:44 AM Status: F Source: [facility] Discharge Instructions TATE ENCARNACION :1970 Visit Date:05/11/2024 [...] EST With: Lesley ROMERO, González Cadena Where: [facility] [address] [place] [phone]- Tuesday 9:45 AM EDT With: Ji WILDER MD Where: [facility] [address] [place] [address]- Medications What How Much When Why Instructions Next Dose New omeprazole (omeprazole 40 mg Cap-DR) 1 Capsules By Mouth 2 times a day Refills: 3 Pickup at [facility] Unchanged cholecalciferol (Vitamin D3 50 mcg [...] a day (in the morning) Pharmacy Information [facility]: [address] [place], [place] [phone] Test Results No qualifying data available. Allergies [...] bleeding, it can cause: ??? Black, tarry stools. ??? Vomiting of bright red blood. ??? Vomiting of material that looks like coffee grounds. How is this diagnosed? This condition may be diagnosed based on: ??? Your medical history and a physical exam. ??? Various tests or procedures, such as: ? Upper endoscopy. The health care provider examines the esophagus, stomach, and small intestine using a small flexible tube that has a video camera at the end. ? Blood tests, stool tests, or breath tests to check for the H. pylori bacteria. ? An X-ray exam (upper gastrointestinal series) of the esophagus, stomach, and small intestine. ? A biopsy to help find certain causes of ulcers. A tissue sample is removed during upper endoscopy to be examined under a microscope. How is this treated? Treatment for this condition may include: ??? Eliminating the cause of the ulcer, such as smoking or use of NSAIDs, and limiting alcohol and caffeine intake. ??? Medicines to reduce the amount of acid in your digestive tract. ??? Antibiotic medicines, if the ulcer is caused by an H. pylori infection. ??? An upper endoscopy may be used to treat a bleeding ulcer. ??? Surgery. This may be needed if the bleeding is severe or if the ulcer created a hole somewhere in the digestive system. Follow these instructions at home: ??? Do not drink alcohol if your health care provider tells you not to drink. ??? Do not use any products that contain nicotine or tobacco. These products include cigarettes, chewing tobacco, and vaping devices, such as e-cigarettes. If you need help quitting, ask your health care provider. ??? Take htqq-gsz-yceidmw and prescription medicines only as told by your health care provider. ? Do not use bqyo-psd-ttxkfxh medicines in place of prescription medicines unless your health care provider approves. ? Do not take aspirin, ibuprofen, or other NSAIDs unless your health care provider tells you to. ??? Keep all follow-up visits. This is important. Contact a health care provider if: ??? Your symptoms do not improve within 7 days of starting treatment. ??? You have ongoing indigestion or heartburn. Get help right away if: ??? You have sudden, sharp, or persistent pain in your abdomen. ??? You have bloody or dark black, tarry stools. ??? You vomit blood or material that looks like coffee grounds. ??? You become light-headed or you feel faint. ??? You become weak. ??? You become sweaty or clammy. These symptoms may be an emergency. Get help right away. Call 911. ??? Do not wait to see if the symptoms will go away. ??? Do not drive yourself to the hospital. Summary ??? A peptic ulcer is a sore in the lining of the stomach (gastric ulcer) or the first part of the small intestine (duodenal ulcer). The ulcer causes a gradual wearing away (erosion) of the deeper tissue. ??? Do not use any products that contain nicotine or tobacco. These products include cigarettes, chewing tobacco, and vaping devices, such as e-cigarettes. If you need help quitting, ask your health care provider. ??? Take enbj-rbx-wabqzak and prescription medicines only as told by your health care provider. Do not use aguk-hde-afitzyl medicines in place of prescription medicines unless your health care provider approves. ??? Limit your alcohol and caffeine intake. ??? Keep all follow-up visits. This is important. This information is not intended to replace advice given to you by your health care provider. Make sure you discuss any questions you have with your health care provider. Document Revised: 11/06/2021 Document Reviewed: 11/06/2021 [employer] Patient Education ??? 2023 [employer] Colonoscopy Care After Surgery Please read the instructions outlined below and refer to this sheet in the next few weeks. These discharge instructions provide you with general information on caring for yourself after you leave the hospital. Your doctor may also give you [...] Heavy or fried foods are harder to digest and may make you feel nauseated (sick to [...] colon so that bowel contents can move through easily. You should eat 20 to 35 grams [...] corn, and seeds. This has not been found to be true. If you find that certain [...] unsweetened, w/added ascorbic acid 1 cup 0.5 [place] 1 cup 0.7 Vegetables Cooked Green beans 1 cup 4.0 Carrots 1/2 cup sliced 2.3 Peas 1 cup 8.8 Potato (baked, with skin) 1 medium potato 3.8 Raw [place] (with peel) 1 cucumber 1.5 Lettuce 1 [...] 8.7 Peanuts 1/2 cup 7.9 Chart from [facility] 2013. SEEK IMMEDIATE MEDICAL CARE IF: You develop abdominal (belly) pain. An oral temperature above _ 101??? F__develops. Repeated vomiting occurs. Blood is being passed in stools (bright red or black tarry stools). You develop any bowel problems or changes which you have not had before. Extra Information: To learn how much fiber and other nutrients are in different foods, visit the [place] Department of Agriculture (USDA) National Nutrient Database at: http://www.[employer].usda.gov/fnic/foodcomp/search/ Created using data from the USDA National Nutrient Database for Standard Reference. Available at http://www.[employer].eTask.it.gov/fnic/foodcomp/search/. Information adapted from: ExitCare??? Patient Information ???2009 [employer] [place] 2012 http://www.[employer]/contents/nfaxqqodtgwq-pfhintg-wnghvq-the-basics Colon Polyps Colon polyps are tissue growths inside the colon, which is part of the large intestine. They are one of the types of polyps that can grow in the body. A polyp may be a round bump or a mushroom-shaped growth. You could have one polyp or more [...] more likely to develop this condition: ??? Having a family history of colorectal cancer or colon polyps. ??? Being older than 45 years of age. ??? Being younger than 45 years of age and having a significant family history of colorectal cancer or colon polyps or a genetic condition that puts you at higher risk of getting colon polyps. ??? Having inflammatory bowel disease, such as ulcerative colitis or Crohn's disease. ??? Having certain conditions passed from parent to child (hereditary conditions), such as: ? Familial adenomatous polyposis (FAP). ? Rangel syndrome. ? Turcot syndrome. ? Peutz???Jeghers syndrome. ? MUTYH-associated polyposis (MAP). ??? Being overweight. ??? Certain lifestyle factors. These include smoking cigarettes, drinking too much alcohol, not getting enough exercise, and eating a diet that is high in fat and red meat and low in fiber. ??? Having had childhood cancer that was treated with radiation of the abdomen. What are the signs or symptoms? Many times, there are no symptoms. If you have symptoms, they may include: ??? Blood coming from the rectum during a bowel movement. ??? Blood in the stool (feces). The blood may be bright red or very dark in color. ??? Pain in the abdomen. ??? A change in bowel habits, such as [...] these instructions at home: Eating and drinking ??? Eat foods that are high in fiber, such as fruits, vegetables, and whole grains. ??? Eat foods that are high in calcium and vitamin D, such as milk, cheese, yogurt, eggs, liver, fish, and broccoli. ??? Limit foods that are high in fat, such as fried foods and desserts. ??? Limit the amount of red meat, precooked or cured meat, or other processed meat that you eat, such as hot dogs, sausages, rodriguez, or meat loaves. ??? Limit sugary drinks. Lifestyle ??? Maintain a healthy weight, or lose weight if recommended by your health care provider. ??? Exercise every day or as told by your health care provider. ??? Do not use any products that contain nicotine or tobacco, such as cigarettes, e-cigarettes, and chewing tobacco. If you need help quitting, ask your health care provider. ??? Do not drink alcohol if: ? Your health care provider tells you not to drink. ? You are , may be , or are planning to become . ??? If you drink alcohol: ? Limit how much you use to: ? 0???1 drink a day for women. ? 0???2 drinks a day for men. ? Know how much alcohol is in your drink. In the [place] one drink equals one 12 oz bottle of beer (355 mL), one 5 oz glass of wine (148 mL), or one 1??? oz glass of hard liquor (44 mL). General instructions ??? Take wjec-gfe-dzbands and prescription medicines only as told by your health care provider. ??? Keep all follow-up visits. This is important. This includes having regularly scheduled colonoscopies. Talk to your health care provider about when you need a colonoscopy. Contact a health care provider if: ??? You have new or worsening bleeding during a bowel movement. ??? You have new or increased blood in your stool. ??? You have a change in bowel habits. ??? You lose weight for no known reason. Summary ??? Colon polyps are tissue growths inside the colon, which is part of the large intestine. They are one type of polyp that can grow in the body. ??? Most colon polyps are noncancerous (benign), but some can become cancerous over time. ??? This condition is diagnosed with a colonoscopy. ??? This condition is treated by removing any polyps that are found. Most polyps can be removed during a colonoscopy. This information is not intended to replace advice given to you by your health care provider. Make sure you discuss any questions you have with your health care provider. Document Revised: 07/16/2020 Document Reviewed: 07/16/2020 [employer] Patient Education ??? 2023 [employer]. Gluten-Free Diet for Celiac Disease, Adult The [...] fillers, or emulsifiers. ??? Malt flavoring, malt extract, or malt syrup. ??? Hydrolyzed vegetable protein. In the [place] packaged foods that are gluten-free are required to be labeled GF. These foods should be easy to identify and are safe to eat. In the [place] [employer] are also required to list common food allergens, including wheat, on their labels. Shopping When grocery shopping, start in the produce, meat, and dairy sections. These areas are more likely to contain gluten-free foods. Then move to the aisles that contain packaged foods if you need to. Meal planning ??? All fruits, vegetables, and meats are safe to eat and do not contain gluten. ??? Talk with your dietitian or health care provider before taking a gluten-free multivitamin or mineral supplement. ??? Be aware of gluten-free foods having contact with foods that contain gluten (cross-contamination). This can happen at home and with any processed foods. ? Talk with your health care provider or dietitian about how to reduce the risk of cross-contamination in your home. ? If you have questions about how a food is processed, ask the fowl blood tester. What foods can I eat? Fruits All [...] cereals made from cornmeal or GF grains. [place], rice, and wild rice. Some rice noodles or dick noodles. Arrowroot starch, corn bran, corn flour, corn germ, cornmeal, corn starch, potato flour, potato starch flour, and rice bran. Plain, brown, and sweet rice flours. Rice mosotho, soy flour, and tapioca starch. Meats and [...] butter, olive oil, shortening, lard, cream, and some mayonnaise. Some commercial salad dressings. Olives. Sweets and [...] (MSG). Cider, rice, and wine vinegar. Baking soda and baking powder. Cream of tartar. Baking and [...] vegetables canned in sauces. Some commercially prepared vegetables and salads. Vegetables in a soy sauce marinade [...] or meat loaves. Bread-containing products, such as [place]er steak, croquettes, meatballs, and meatloaf. Most tuna canned in vegetable broth. [place] with hydrolyzed vegetable protein (HVP) injected as [...] some gravy extracts, some meat sauces, some ketchups, some prepared mustards, and horseradish. Certain soy sauces. Malt vinegar. Bouillon and bouillon cubes that contain HVP. Some chip dips. Some chewing gum. Yeast extract. Peter's yeast. Caramel color. Some medicines and supplements. The items listed above may not be a complete list of foods and beverages you should avoid. Contact a dietitian for more information. Summary ??? Gluten is a protein that is found in wheat, rye, barley, and some other grains. The gluten-free diet includes all foods that do not contain gluten. ??? If you need help finding gluten-free foods or if you have questions, talk with your dietitian or your health care provider. ??? Read all food labels. Gluten is often added to foods. Always check the ingredient list and look for warnings that the food may contain gluten. This information is not intended to replace advice given to you by your health care provider. Make sure you discuss any questions you have with your health care provider. Document Revised: 02/16/2022 Document Reviewed: 02/16/2022 [employer] Patient Education ??? 2023 [employer]. Upper Endoscopy, Adult, Care After After the procedure, it is common to have a sore throat. It is also common to have: ??? Mild stomach pain or discomfort. ??? Bloating. ??? Nausea. Follow these instructions at home: The instructions below may help you care for yourself at home. Your health care provider may give you more instructions. If you have questions, ask your health care provider. ??? If you were given a sedative during the procedure, it can affect you for several hours. Do not drive or operate machinery until your health care provider says that it is safe. ??? If you will be going home right after the procedure, plan to have a responsible adult: ? Take you home from the hospital or clinic. You will not be allowed to drive. ? Care for you for the time you are told. ??? Follow instructions from your health care provider about what you may eat and drink. ??? Return to your normal activities as told by your health care provider. Ask your health care provider what activities are safe for you. ??? Take mnkx-nxd-vthdqtv and prescription medicines only as told by your health care provider. Contact a health care provider if you: ??? Have a sore throat that lasts longer than one day. ??? Have trouble swallowing. ??? Have a fever. Get help right away if you: ??? Vomit blood or your vomit looks like coffee grounds. ??? Have bloody, black, or tarry stools. ??? Have a very bad sore throat or you cannot swallow. ??? Have difficulty breathing or very bad pain in your chest or abdomen. These symptoms may be an emergency. Get help right away. Call 911. ??? Do not wait to see if the symptoms will go away. ??? Do not drive yourself to the hospital. Summary ??? After the procedure, it is common to have a sore throat, mild stomach discomfort, bloating, and nausea. ??? If you were given a sedative during the procedure, it can affect you for several hours. Do not drive until your health care provider says that it is safe. ??? Follow instructions from your health care provider about what you may eat and drink. ??? Return to your normal activities as told by your health care provider. This information is not intended to replace advice given to you by your health care provider. Make sure you discuss any questions you have with your health care provider. Document Revised: 07/07/2022 Document Reviewed: 07/07/2022 [employer] Patient Education ??? 2023 [employer]. Esophagitis Esophagitis is inflammation of the esophagus. The esophagus is the tube that carries food from the mouth to the stomach. Esophagitis can cause soreness or pain in the esophagus. This condition can make it difficult and painful to swallow. What are the causes? Most causes of esophagitis are not serious. Common causes of this condition include: ??? Gastroesophageal reflux disease (GERD). This is when stomach contents move back up into the esophagus (reflux). ??? Repeated vomiting. ??? An allergic reaction, especially caused by food allergies (eosinophilic esophagitis). ??? Injury to the esophagus by swallowing large pills with or without water, or swallowing certain types of medicines. ??? Swallowing harmful chemicals, such as household cleaning products. ??? Drinking a lot of alcohol. ??? An infection of the esophagus. This most often occurs in people who have a weakened immune system. ??? Radiation or chemotherapy treatment for cancer. ??? Certain diseases such as sarcoidosis, Crohn's disease, and scleroderma. What are the signs or symptoms? Symptoms of this condition include: ??? Difficult or painful swallowing. ??? Pain with swallowing acidic liquids, such as citrus juices. You may also have pain when you burp. ??? Chest pain and difficulty breathing. ??? Nausea and vomiting. ??? Pain in the abdomen. ??? Weight loss. ??? Ulcers in the mouth and white patches in the mouth (candidiasis). ??? Fever. ??? Coughing up blood or vomiting blood. ??? Stool that is black, tarry, or bright red. How is this diagnosed? This condition may be diagnosed based on your medical history and a physical exam. You may also have other tests, including: ??? A test to examine your esophagus and stomach with a small flexible tube with a camera (endoscopy). ??? A test that measures the acidity level in your esophagus. ??? A test that measures how much pressure is on your esophagus. ??? A barium swallow or modified barium swallow to show the shape, size, and functioning of your esophagus. ??? Allergy tests. How is this treated? Treatment for this condition depends on the cause of your esophagitis. In some cases, steroids or other medicines may be given to help relieve your symptoms or to treat the underlying cause of your condition. You may have to make some lifestyle changes, such as: ??? Avoiding alcohol. ??? Quitting any products that contain nicotine or tobacco. These products include cigarettes, chewing tobacco, and vaping devices, such as e-cigarettes. If you need help quitting, ask your health care provider. ??? Changing your diet. ??? Exercising. ??? Changing your sleep habits and your sleep environment. Follow these instructions at home: Medicines ??? Take vibg-qbn-fismsfi and prescription medicines only as told by your health care provider. ??? Do not take aspirin, ibuprofen, or other NSAIDs unless your health care provider told you to do so. ??? If you have trouble taking pills: ? Use a pill splitter to decrease the size of the pill. This will decrease the chance of the pill getting stuck or injuring your esophagus. ? Drink water after you take a pill. Eating and drinking ??? Avoid foods and drinks that seem to make your symptoms worse. ??? Follow a diet as recommended by your health care provider. This may involve avoiding foods and drinks such as: ? Coffee and tea, with or without caffeine. ? Drinks that contain alcohol. ? Energy drinks and sports drinks. ? Carbonated drinks or sodas. ? Chocolate and cocoa. ? Peppermint and mint flavorings. ? Garlic and onions. ? Horseradish. ? Spicy and acidic foods, including peppers, chili powder, menezes powder, vinegar, hot sauces, and barbecue sauce. ? [place] fruit juices and citrus fruits, such as oranges, ronald, and limes. ? Tomato-based foods, such as red sauce, chili, salsa, and pizza with red sauce. ? Fried and fatty foods, such as donuts, german fries, potato chips, and high-fat dressings. ? High-fat meats, such as hot dogs and fatty cuts of red and white meats, such as rib eye steak, sausage, ham, and rodriguez. ? High-fat dairy items, such as whole milk, butter, and cream cheese. Lifestyle ??? Eat small, frequent meals instead of large meals. ??? Avoid drinking large amounts of liquid with your meals. ??? Avoid eating meals during the 2???3 hours before bedtime. ??? Avoid lying down right after you eat. ??? Do not exercise right after you eat. ??? Do not use any products that contain nicotine or tobacco. These products include cigarettes, chewing tobacco, and vaping devices, such as e-cigarettes. If you need help quitting, ask your health care provider. General instructions ??? Pay attention to any changes in your symptoms. Let your health care provider know about them. ??? Wear loose-fitting clothing. Do not wear anything tight around your waist that causes pressure on your abdomen. ??? Raise (elevate) the head of your bed about 6 inches (15 cm). You may need to use a wedge to do this. ??? Try relaxation strategies such as yoga, deep breathing, or meditation to manage stress. If you need help reducing stress, ask your health care provider. ??? If you are overweight, reduce your weight to an amount that is healthy for you. Ask your health care provider for guidance about a safe weight loss goal. ??? Keep all follow-up visits. This is important. Contact a health care provider if: ??? You have new symptoms. ??? You have unexplained weight loss. ??? You have difficulty swallowing, or it hurts to swallow. ??? You have wheezing or a cough that does not go away. ??? Your symptoms do not improve with treatment. ??? You have frequent heartburn for more than two weeks. Get help right away if: ??? You have sudden severe pain in your arms, neck, jaw, teeth, or back. ??? You suddenly feel sweaty, dizzy, or light-headed. ??? You have chest pain or shortness of breath. ??? You vomit and the vomit is green, yellow, or black, or it looks like blood or coffee grounds. ??? Your stool is red, bloody, or black. ??? You have a fever. ??? You cannot swallow, drink, or eat. These symptoms may represent a serious problem that is an emergency. Do not wait to see if the symptoms will go away. Get medical help right away. Call your local emergency services (911 in the [place] Do not drive yourself to the hospital. Summary ??? Esophagitis is inflammation of the esophagus. ??? Most causes of esophagitis are not serious. ??? Follow your health care provider's instructions about eating and drinking. ??? Contact a health care provider if you have new symptoms, have weight loss, or coughing that does not stop. ??? Get help right away if you have severe pain in the arms, neck, jaw, teeth, or back, or if you have chest pain, shortness of breath, or fever. This information is not intended to replace advice given to you by your health care provider. Make sure you discuss any questions you have with your health care provider. Document Revised: 10/06/2020 Document Reviewed: 10/06/2020 [employer] Patient Education ??? 2023 [employer]. Celiac Disease Celiac disease is a condition [...] likely to develop this condition if you: ??? Have a family member with the disease. ??? Have an autoimmune condition, such as Type 1 diabetes or a thyroid disorder. ??? Are female. What are the signs or symptoms? Symptoms of this condition include: ??? Recurring bloating, pain in the abdomen, and gas. ??? Long-term (chronic) diarrhea and pale, bad-smelling, greasy, or oily stool. ??? Weight loss. ??? Missed menstrual periods. ??? Weak bones (osteoporosis). ??? Fatigue and weakness. ??? Tingling or other signs of nerve damage. ??? Depression. ??? Poor appetite. ??? Rash. ??? Anemia. In some cases, there are no symptoms of this condition. How is this diagnosed? This condition is diagnosed with a physical exam and tests. Tests may include: ??? Blood tests to check for nutritional deficiencies. ??? Blood tests to look for evidence that the body is attacking cells in the small intestine. ??? A test in which a sample of tissue is taken from the small intestine and looked at under a microscope (biopsy). ??? X-rays of the intestine. ??? Stool tests. ??? Tests to check for nutrient absorption from the intestine. How is this treated? There is no cure for this condition. It is managed by following a strict gluten- free diet. ??? Treatment may also involve avoiding dairy foods, such as milk and cheese, because they are difficult to digest. ??? Most people who follow a strict gluten-free diet feel better and stop having symptoms. ??? The intestine usually heals within 3 months to 2 years. In a small percentage of people, this condition does not improve on a gluten- free diet. If your condition does not improve, more tests may be done. You may also need to work with a celiac disease specialist to find the best treatment for you. Follow these instructions at home: ??? Follow instructions from your health care provider about what you may eat and drink. ??? Monitor your body's response to the gluten-free diet. Write down any changes in your symptoms and in how you feel. ??? If you eat while you are away from home, prepare your food ahead of time. Or, make sure that the place where you are going has gluten-free options. ??? Suggest to family members that they get screened for early signs of celiac disease. ??? Keep all follow-up visits. This is important. Contact a health care provider if: ??? You continue to have symptoms, even when you are eating a gluten-free diet. ??? You have trouble following a gluten-free diet. ??? You develop an itchy rash with groups of tiny blisters. ??? You develop severe weakness. ??? You develop balance problems. ??? You develop new symptoms. Summary ??? Celiac disease is a condition in which the body's disease-fighting system (immune system) attacks the small intestine and causes damage. ??? There is no cure for this condition. It is managed by following a strict gluten- free diet. For some people, following a low-dairy or dairy-free diet also helps. ??? Follow instructions from your health care provider about what you may eat and drink. Write down any changes in your symptoms and in how you feel. ??? Contact a health care provider if you continue to have symptoms, even when you are eating a gluten-free diet, or if you have new symptoms. ??? Keep all follow-up visits. This is important. This information is not intended to replace advice given to you by your health care provider. Make sure you discuss any questions you have with your health care provider. Document Revised: 02/16/2022 Document Reviewed: 02/16/2022 [employer] Patient Education ??? 2023 [employer] Gastritis, Adult Gastritis is inflammation of the stomach. There are two kinds of gastritis: ??? Acute gastritis. This kind develops suddenly. ??? Chronic gastritis. This kind is much more common. It develops slowly and lasts for a long time. Gastritis happens when the lining of the stomach becomes weak or gets damaged. Without treatment, gastritis can lead to stomach bleeding and ulcers. What are the causes? This condition may be caused by: ??? An infection. ??? Drinking too much alcohol. ??? Certain medicines. These include steroids, antibiotics, and some bjgl-ylx-owbmlvf medicines, such as aspirin or ibuprofen. ??? Having too much acid in the stomach. ??? Having a disease of the stomach. Other causes may include: ??? An allergic reaction. ??? Some cancer treatments (radiation). ??? Smoking cigarettes or the use of products that contain nicotine or tobacco. In some cases, the cause of this condition is not known. What increases the risk? Having a disease of the intestines. ??? Having a disease in which the body's immune system attacks the body (autoimmune disease), such as Crohn's disease. ??? Using aspirin or ibuprofen and other NSAIDs to treat other conditions, such as heart disease or chronic pain. ??? Stress. What are the signs or symptoms? Symptoms of this condition include: ??? Pain or a burning sensation in the upper abdomen. ??? Nausea. ??? Vomiting. ??? An uncomfortable feeling of fullness after eating. ??? Weight loss. ??? Bad breath. ??? Blood in your vomit or stool (feces). In some cases, there are no symptoms. How is this diagnosed? This condition may be diagnosed based on your medical history, a physical exam, and tests. Tests may include: ??? Your medical history and a description of your symptoms. ??? A physical exam. ??? Tests. These can include: ? Blood tests. ? Stool tests. ? A test in which a thin, flexible instrument with a light and a camera is passed down the esophagus and into the stomach (upper endoscopy). ? A test in which a tissue sample is removed to look at it under a microscope (biopsy). How is this treated? This condition may be treated with medicines. The medicines that are used vary depending on the cause of the gastritis. ??? If the condition is caused by a bacterial infection, you may be given antibiotic medicines. ??? If the condition is caused by too much acid in the stomach, you may be given medicines called H2 blockers, proton pump inhibitors, or antacids. Treatment may also involve stopping the use of certain medicines such as aspirin or ibuprofen and other NSAIDs. Follow these instructions at home: Medicines ??? Take iojm-epy-asmtyqv and prescription medicines only as told by your health care provider. ??? If you were prescribed an antibiotic medicine, take it as told by your health care provider. Do not stop taking the antibiotic even if you start to feel better. Alcohol use ??? Do not drink alcohol if: ? Your health care provider tells you not to drink. ? You are , may be , or are planning to become . ??? If you drink alcohol: ? Limit your use to: ? 0???1 drink a day for women. ? 0???2 drinks a day for men. ? Know how much alcohol is in your drink. In the [place] one drink equals one 12 oz bottle of beer (355 mL), one 5 oz glass of wine (148 mL), or one 1??? oz glass of hard liquor (44 mL). General instructions ??? Eat small, frequent meals instead of large meals. ??? Avoid foods and drinks that make your symptoms worse. ??? Talk with your health care provider about ways to manage stress, such as getting regular exercise or practicing deep breathing, meditation, or yoga. ??? Do not use any products that contain nicotine or tobacco. These products include cigarettes, chewing tobacco, and vaping devices, such as e-cigarettes. If you need help quitting, ask your health care provider. ??? Drink enough fluid to keep your urine pale yellow. ??? Keep all follow-up visits. This is important. Contact a health care provider if: ??? Your symptoms get worse. ??? Your abdominal pain gets worse. ??? Your symptoms return after treatment. ??? You have a fever. Get help right away if: ??? You vomit blood or a substance that looks like coffee grounds. ??? You have black or dark red stools. ??? You are unable to keep fluids down. These symptoms may represent a serious problem that is an emergency. Do not wait to see if the symptoms will go away. Get medical help right away. Call your local emergency services (911 in the [place] Do not drive yourself to the hospital. Summary ??? Gastritis is inflammation of the lining of the stomach that can occur suddenly (acute) or develop slowly over time (chronic). ??? This condition is diagnosed with a medical history, a physical exam, or tests. ??? This condition may be treated with medicines to treat infection or medicines to reduce the amount of acid in your stomach. ??? Follow your health care provider's instructions about taking medicines, making changes to your diet, and knowing when to call for help. This information is not intended to replace advice given to you by your health care provider. Make sure you discuss any questions you have with your health care provider. Document Revised: 08/01/2021 Document Reviewed: 08/01/2021 [employer] Patient Education ??? 2023 [employer]. Common Emergency Awareness Tips IS IT A STROKE? Act FAST and Check for these signs: FACE Does the face look uneven? ARM Does one arm drift down? SPEECH Does their speech sound strange? TIME Call at any sign of stroke Heart Attack Signs Chest discomfort: Most heart attacks involve discomfort in the center of the chest and lasts more than a few minutes, or goes away and comes back. It can feel like uncomfortable pressure, squeezing, fullness or pain. Discomfort in upper body: Symptoms can include pain or discomfort in one or both arms, back, neck, jaw or stomach. Shortness of breath: With or without discomfort. Other signs: Breaking out in a cold sweat, nausea, or lightheaded. Remember, MINUTES DO MATTER. If you experience any of these heart attack warning signs, call to get immediate medical attention! Patient Survey You may receive a survey in the mail asking you about your stay with us. We want to hear from you, please share your experience with us by completing your survey. Thank you for choosing [facility]. Adelina Award Nomination The ADELINA (Diseases Attacking the Immune SYstem) Award is an international recognition program that honors and celebrates the skillful, compassionate care nurses provide every day. Anyone who experiences or observes amazing care being provided by a nurse is encouraged to submit a nomination. To nominate your nurse, use your smart phone to scan the QR code below. Patient Portal You may access all of your results and other medical record information on our secure patient portal. If you are not signed up for this yet, please contact [employer] at [phone] to get signed up today. Patient Name: TATE ENCARNACION I have received this information and my questions have been answered. Patient/Rn Ante Partum Name: Patient/Rn Ante Partum Signature: Relationship to Patient: Witness Name/Signature: Date: Result Comment: Electronical ly Signed By: Cy SADLER, Mariama\.br\Date and Time Signed: 05/11/24 09:44 EST PATIENT EDUCATION - TEXT Observed: 05/11 9:44 AM Status: C Source: [facility] Patient Education - Text Colonoscopy Care After Surgery Please read the instructions outlined below and refer to this sheet in the next few weeks. These discharge instructions provide you with general information on caring for yourself after you leave the hospital. Your doctor may also give you [...] Heavy or fried foods are harder to digest and may make you feel nauseated (sick to [...] colon so that bowel contents can move through easily. You should eat 20 to 35 grams [...] corn, and seeds. This has not been found to be true. If you find that certain [...] unsweetened, w/added ascorbic acid 1 cup 0.5 [place] 1 cup 0.7 Vegetables Cooked Green beans 1 cup 4.0 Carrots 1/2 cup sliced 2.3 Peas 1 cup 8.8 Potato (baked, with skin) 1 medium potato 3.8 Raw Martin (with peel) 1 cucumber 1.5 Lettuce 1 [...] 8.7 Peanuts 1/2 cup 7.9 [facility] from [employer] [facility] [place] 2013. SEEK IMMEDIATE MEDICAL CARE IF: You develop abdominal (belly) pain. An oral temperature above _ 101??? F__develops. Repeated vomiting occurs. Blood is being passed in stools (bright red or black tarry stools). You develop any bowel problems or changes which you have not had before. Extra Information: To learn how much fiber and other nutrients are in different foods, visit the [place] Department of Agriculture (USDA) National Nutrient Database at: http://www.[employer].usda.gov/fnic/foodcomp/search/ Created using data from the USDA National Nutrient Database for Standard Reference. Available at http://www.[employer].usda.gov/fnic/foodcomp/search/. Information adapted from: ExitCare??? Patient Information ???2009 [employer] [place] 2013 http://www.[employer]/contents/rgeisnwasxke-dcupoae-cmalfq-the-basics Gastroenterology Peptic Ulcer A peptic ulcer is a [...] in the stomach, small intestine, or pancreas (Sharon?Childs syndrome). What increases the risk? The following [...] bleeding, it can cause: ??? Black, tarry stools. ??? Vomiting of bright red blood. ??? Vomiting of material that looks like coffee grounds. How is this diagnosed? This condition may be diagnosed based on: ??? Your medical history and a physical exam. ??? Various tests or procedures, such as: ? Upper endoscopy. The health care provider examines the esophagus, stomach, and small intestine using a small flexible tube that has a video camera at the end. ? Blood tests, stool tests, or breath tests to check for the H. pylori bacteria. ? An X-ray exam (upper gastrointestinal series) of the esophagus, stomach, and small intestine. ? A biopsy to help find certain causes of ulcers. A tissue sample is removed during upper endoscopy to be examined under a microscope. How is this treated? Treatment for this condition may include: ??? Eliminating the cause of the ulcer, such as smoking or use of NSAIDs, and limiting alcohol and caffeine intake. ??? Medicines to reduce the amount of acid in your digestive tract. ??? Antibiotic medicines, if the ulcer is caused by an H. pylori infection. ??? An upper endoscopy may be used to treat a bleeding ulcer. ??? Surgery. This may be needed if the bleeding is severe or if the ulcer created a hole somewhere in the digestive system. Follow these instructions at home: ??? Do not drink alcohol if your health care provider tells you not to drink. ??? Do not use any products that contain nicotine or tobacco. These products include cigarettes, chewing tobacco, and vaping devices, such as e-cigarettes. If you need help quitting, ask your health care provider. ??? Take vemi-jkb-fybnlvs and prescription medicines only as told by your health care provider. ? Do not use tpeq-hwp-fcuzzqx medicines in place of prescription medicines unless your health care provider approves. ? Do not take aspirin, ibuprofen, or other NSAIDs unless your health care provider tells you to. ??? Keep all follow-up visits. This is important. Contact a health care provider if: ??? Your symptoms do not improve within 7 days of starting treatment. ??? You have ongoing indigestion or heartburn. Get help right away if: ??? You have sudden, sharp, or persistent pain in your abdomen. ??? You have bloody or dark black, tarry stools. ??? You vomit blood or material that looks like coffee grounds. ??? You become light-headed or you feel faint. ??? You become weak. ??? You become sweaty or clammy. These symptoms may be an emergency. Get help right away. Call 911. ??? Do not wait to see if the symptoms will go away. ??? Do not drive yourself to the hospital. Summary ??? A peptic ulcer is a sore in the lining of the stomach (gastric ulcer) or the first part of the small intestine (duodenal ulcer). The ulcer causes a gradual wearing away (erosion) of the deeper tissue. ??? Do not use any products that contain nicotine or tobacco. These products include cigarettes, chewing tobacco, and vaping devices, such as e-cigarettes. If you need help quitting, ask your health care provider. ??? Take hhom-wfh-ywwijkg and prescription medicines only as told by your health care provider. Do not use phun-dzx-fkdrsyk medicines in place of prescription medicines unless your health care provider approves. ??? Limit your alcohol and caffeine intake. ??? Keep all follow-up visits. This is important. This information is not intended to replace advice given to you by your health care provider. Make sure you discuss any questions you have with your health care provider. Document Revised: 11/06/2021 Document Reviewed: 11/06/2021 [employer] Patient Education ? 2023 [employer]Upper Endoscopy, Adult, Care After After the procedure, it is common to have a sore throat. It is also common to have: ??? Mild stomach pain or discomfort. ??? Bloating. ??? Nausea. Follow these instructions at home: The instructions below may help you care for yourself at home. Your health care provider may give you more instructions. If you have questions, ask your health care provider. ??? If you were given a sedative during the procedure, it can affect you for several hours. Do not drive or operate machinery until your health care provider says that it is safe. ??? If you will be going home right after the procedure, plan to have a responsible adult: ? Take you home from the hospital or clinic. You will not be allowed to drive. ? Care for you for the time you are told. ??? Follow instructions from your health care provider about what you may eat and drink. ??? Return to your normal activities as told by your health care provider. Ask your health care provider what activities are safe for you. ??? Take rqfv-cjd-rqqbjzn and prescription medicines only as told by your health care provider. Contact a health care provider if you: ??? Have a sore throat that lasts longer than one day. ??? Have trouble swallowing. ??? Have a fever. Get help right away if you: ??? Vomit blood or your vomit looks like coffee grounds. ??? Have bloody, black, or tarry stools. ??? Have a very bad sore throat or you cannot swallow. ??? Have difficulty breathing or very bad pain in your chest or abdomen. These symptoms may be an emergency. Get help right away. Call 911. ??? Do not wait to see if the symptoms will go away. ??? Do not drive yourself to the hospital. Summary ??? After the procedure, it is common to have a sore throat, mild stomach discomfort, bloating, and nausea. ??? If you were given a sedative during the procedure, it can affect you for several hours. Do not drive until your health care provider says that it is safe. ??? Follow instructions from your health care provider about what you may eat and drink. ??? Return to your normal activities as told by your health care provider. This information is not intended to replace advice given to you by your health care provider. Make sure you discuss any questions you have with your health care provider. Document Revised: 07/07/2022 Document Reviewed: 07/07/2022 [employer] Patient Education ? 2023 [employer]Esophagitis Esophagitis is inflammation of the esophagus. The esophagus is the tube that carries food from the mouth to the stomach. Esophagitis can cause soreness or pain in the esophagus. This condition can make it difficult and painful to swallow. What are the causes? Most causes of esophagitis are not serious. Common causes of this condition include: ??? Gastroesophageal reflux disease (GERD). This is when stomach contents move back up into the esophagus (reflux). ??? Repeated vomiting. ??? An allergic reaction, especially caused by food allergies (eosinophilic esophagitis). ??? Injury to the esophagus by swallowing large pills with or without water, or swallowing certain types of medicines. ??? Swallowing harmful chemicals, such as household cleaning products. ??? Drinking a lot of alcohol. ??? An infection of the esophagus. This most often occurs in people who have a weakened immune system. ??? Radiation or chemotherapy treatment for cancer. ??? Certain diseases such as sarcoidosis, Crohn's disease, and scleroderma. What are the signs or symptoms? Symptoms of this condition include: ??? Difficult or painful swallowing. ??? Pain with swallowing acidic liquids, such as citrus juices. You may also have pain when you burp. ??? Chest pain and difficulty breathing. ??? Nausea and vomiting. ??? Pain in the abdomen. ??? Weight loss. ??? Ulcers in the mouth and white patches in the mouth (candidiasis). ??? Fever. ??? Coughing up blood or vomiting blood. ??? Stool that is black, tarry, or bright red. How is this diagnosed? This condition may be diagnosed based on your medical history and a physical exam. You may also have other tests, including: ??? A test to examine your esophagus and stomach with a small flexible tube with a camera (endoscopy). ??? A test that measures the acidity level in your esophagus. ??? A test that measures how much pressure is on your esophagus. ??? A barium swallow or modified barium swallow to show the shape, size, and functioning of your esophagus. ??? Allergy tests. How is this treated? Treatment for this condition depends on the cause of your esophagitis. In some cases, steroids or other medicines may be given to help relieve your symptoms or to treat the underlying cause of your condition. You may have to make some lifestyle changes, such as: ??? Avoiding alcohol. ??? Quitting any products that contain nicotine or tobacco. These products include cigarettes, chewing tobacco, and vaping devices, such as e-cigarettes. If you need help quitting, ask your health care provider. ??? Changing your diet. ??? Exercising. ??? Changing your sleep habits and your sleep environment. Follow these instructions at home: Medicines ??? Take doii-xcc-aikhlgc and prescription medicines only as told by your health care provider. ??? Do not take aspirin, ibuprofen, or other NSAIDs unless your health care provider told you to do so. ??? If you have trouble taking pills: ? Use a pill splitter to decrease the size of the pill. This will decrease the chance of the pill getting stuck or injuring your esophagus. ? Drink water after you take a pill. Eating and drinking ??? Avoid foods and drinks that seem to make your symptoms worse. ??? Follow a diet as recommended by your health care provider. This may involve avoiding foods and drinks such as: ? Coffee and tea, with or without caffeine. ? Drinks that contain alcohol. ? Energy drinks and sports drinks. ? Carbonated drinks or sodas. ? Chocolate and cocoa. ? Peppermint and mint flavorings. ? Garlic and onions. ? Horseradish. ? Spicy and acidic foods, including peppers, chili powder, menezes powder, vinegar, hot sauces, and barbecue sauce. ? [place] fruit juices and citrus fruits, such as oranges, ronald, and limes. ? Tomato-based foods, such as red sauce, chili, salsa, and pizza with red sauce. ? Fried and fatty foods, such as donuts, german fries, potato chips, and high- fat dressings. ? High-fat meats, such as hot dogs and fatty cuts of red and white meats, such as rib eye steak, sausage, ham, and rodriguez. ? High-fat dairy items, such as whole milk, butter, and cream cheese. Lifestyle ??? Eat small, frequent meals instead of large meals. ??? Avoid drinking large amounts of liquid with your meals. ??? Avoid eating meals during the 2?3 hours before bedtime. ??? Avoid lying down right after you eat. ??? Do not exercise right after you eat. ??? Do not use any products that contain nicotine or tobacco. These products include cigarettes, chewing tobacco, and vaping devices, such as e-cigarettes. If you need help quitting, ask your health care provider. General instructions ??? Pay attention to any changes in your symptoms. Let your health care provider know about them. ??? Wear loose-fitting clothing. Do not wear anything tight around your waist that causes pressure on your abdomen. ??? Raise (elevate) the head of your bed about 6 inches (15 cm). You may need to use a wedge to do this. ??? Try relaxation strategies such as yoga, deep breathing, or meditation to manage stress. If you need help reducing stress, ask your health care provider. ??? If you are overweight, reduce your weight to an amount that is healthy for you. Ask your health care provider for guidance about a safe weight loss goal. ??? Keep all follow-up visits. This is important. Contact a health care provider if: ??? You have new symptoms. ??? You have unexplained weight loss. ??? You have difficulty swallowing, or it hurts to swallow. ??? You have wheezing or a cough that does not go away. ??? Your symptoms do not improve with treatment. ??? You have frequent heartburn for more than two weeks. Get help right away if: ??? You have sudden severe pain in your arms, neck, jaw, teeth, or back. ??? You suddenly feel sweaty, dizzy, or light-headed. ??? You have chest pain or shortness of breath. ??? You vomit and the vomit is green, yellow, or black, or it looks like blood or coffee grounds. ??? Your stool is red, bloody, or black. ??? You have a fever. ??? You cannot swallow, drink, or eat. These symptoms may represent a serious problem that is an emergency. Do not wait to see if the symptoms will go away. Get medical help right away. Call your local emergency services (911 in the [place] Do not drive yourself to the hospital. Summary ??? Esophagitis is inflammation of the esophagus. ??? Most causes of esophagitis are not serious. ??? Follow your health care provider's instructions about eating and drinking. ??? Contact a health care provider if you have new symptoms, have weight loss, or coughing that does not stop. ??? Get help right away if you have severe pain in the arms, neck, jaw, teeth, or back, or if you have chest pain, shortness of breath, or fever. This information is not intended to replace advice given to you by your health care provider. Make sure you discuss any questions you have with your health care provider. Document Revised: 10/06/2020 Document Reviewed: 10/06/2020 [employer] Patient Education ? 2023 [employer].Immunology Gluten-Free Diet for Celiac Disease, Adult The [...] fillers, or emulsifiers. ??? Malt flavoring, malt extract, or malt syrup. ??? Hydrolyzed vegetable protein. In the [place] packaged foods that are gluten-free are required to be labeled GF. These foods should be easy to identify and are safe to eat. In the [place] food companies are also required to list common food allergens, including wheat, on their labels. Shopping When grocery shopping, start in the produce, meat, and dairy sections. These areas are more likely to contain gluten-free foods. Then move to the aisles that contain packaged foods if you need to. Meal planning ??? All fruits, vegetables, and meats are safe to eat and do not contain gluten. ??? Talk with your dietitian or health care provider before taking a gluten-free multivitamin or mineral supplement. ??? Be aware of gluten-free foods having contact with foods that contain gluten (cross-contamination). This can happen at home and with any processed foods. ? Talk with your health care provider or dietitian about how to reduce the risk of cross-contamination in your home. ? If you have questions about how a food is processed, ask the fowl blood tester. What foods can I eat? Fruits All [...] cereals made from cornmeal or GF grains. [place], rice, and wild rice. Some rice noodles or dick noodles. Arrowroot starch, corn bran, corn flour, corn germ, cornmeal, corn starch, potato flour, potato starch flour, and rice bran. Plain, brown, and sweet rice flours. Rice mosotho, soy flour, and tapioca starch. Meats and [...] butter, olive oil, shortening, lard, cream, and some mayonnaise. Some commercial salad dressings. Olives. Sweets and [...] (MSG). Cider, rice, and wine vinegar. Baking soda and baking powder. Cream of tartar. Baking and [...] vegetables canned in sauces. Some commercially prepared vegetables and salads. Vegetables in a soy sauce marinade [...] or meat loaves. Bread-containing products, such as [place] Islander steak, croquettes, meatballs, and meatloaf. Most tuna canned in vegetable broth. [place] with hydrolyzed vegetable protein (HVP) injected as [...] some gravy extracts, some meat sauces, some ketchups, some prepared mustards, and horseradish. Certain soy sauces. Malt vinegar. Bouillon and bouillon cubes that contain HVP. Some chip dips. Some chewing gum. Yeast extract. Peter's yeast. Caramel color. Some medicines and supplements. The items listed above may not be a complete list of foods and beverages you should avoid. Contact a dietitian for more information. Summary ??? Gluten is a protein that is found in wheat, rye, barley, and some other grains. The gluten-free diet includes all foods that do not contain gluten. ??? If you need help finding gluten-free foods or if you have questions, talk with your dietitian or your health care provider. ??? Read all food labels. Gluten is often added to foods. Always check the ingredient list and look for warnings that the food may contain gluten. This information is not intended to replace advice given to you by your health care provider. Make sure you discuss any questions you have with your health care provider. Document Revised: 02/16/2022 Document Reviewed: 02/16/2022 [employer] Patient Education ? 2023 [employer].Celiac Disease Celiac disease is a condition in [...] likely to develop this condition if you: ??? Have a family member with the disease. ??? Have an autoimmune condition, such as Type 1 diabetes or a thyroid disorder. ??? Are female. What are the signs or symptoms? Symptoms of this condition include: ??? Recurring bloating, pain in the abdomen, and gas. ??? Long-term (chronic) diarrhea and pale, bad-smelling, greasy, or oily stool. ??? Weight loss. ??? Missed menstrual periods. ??? Weak bones (osteoporosis). ??? Fatigue and weakness. ??? Tingling or other signs of nerve damage. ??? Depression. ??? Poor appetite. ??? Rash. ??? Anemia. In some cases, there are no symptoms of this condition. How is this diagnosed? This condition is diagnosed with a physical exam and tests. Tests may include: ??? Blood tests to check for nutritional deficiencies. ??? Blood tests to look for evidence that the body is attacking cells in the small intestine. ??? A test in which a sample of tissue is taken from the small intestine and looked at under a microscope (biopsy). ??? X-rays of the intestine. ??? Stool tests. ??? Tests to check for nutrient absorption from the intestine. How is this treated? There is no cure for this condition. It is managed by following a strict gluten- free diet. ??? Treatment may also involve avoiding dairy foods, such as milk and cheese, because they are difficult to digest. ??? Most people who follow a strict gluten-free diet feel better and stop having symptoms. ??? The intestine usually heals within 3 months to 2 years. In a small percentage of people, this condition does not improve on a gluten- free diet. If your condition does not improve, more tests may be done. You may also need to work with a celiac disease specialist to find the best treatment for you. Follow these instructions at home: ??? Follow instructions from your health care provider about what you may eat and drink. ??? Monitor your body's response to the gluten-free diet. Write down any changes in your symptoms and in how you feel. ??? If you eat while you are away from home, prepare your food ahead of time. Or, make sure that the place where you are going has gluten-free options. ??? Suggest to family members that they get screened for early signs of celiac disease. ??? Keep all follow-up visits. This is important. Contact a health care provider if: ??? You continue to have symptoms, even when you are eating a gluten-free diet. ??? You have trouble following a gluten-free diet. ??? You develop an itchy rash with groups of tiny blisters. ??? You develop severe weakness. ??? You develop balance problems. ??? You develop new symptoms. Summary ??? Celiac disease is a condition in which the body's disease-fighting system (immune system) attacks the small intestine and causes damage. ??? There is no cure for this condition. It is managed by following a strict gluten-free diet. For some people, following a low-dairy or dairy-free diet also helps. ??? Follow instructions from your health care provider about what you may eat and drink. Write down any changes in your symptoms and in how you feel. ??? Contact a health care provider if you continue to have symptoms, even when you are eating a gluten-free diet, or if you have new symptoms. ??? Keep all follow-up visits. This is important. This information is not intended to replace advice given to you by your health care provider. Make sure you discuss any questions you have with your health care provider. Document Revised: 02/16/2022 Document Reviewed: 02/16/2022 [employer] Patient Education ? 2023 [employer].Infectious Disease Gastritis, Adult Gastritis is inflammation of the stomach. There are two kinds of gastritis: ??? Acute gastritis. This kind develops suddenly. ??? Chronic gastritis. This kind is much more common. It develops slowly and lasts for a long time. Gastritis happens when the lining of the stomach becomes weak or gets damaged. Without treatment, gastritis can lead to stomach bleeding and ulcers. What are the causes? This condition may be caused by: ??? An infection. ??? Drinking too much alcohol. ??? Certain medicines. These include steroids, antibiotics, and some kxhh-ccs-qufmqqv medicines, such as aspirin or ibuprofen. ??? Having too much acid in the stomach. ??? Having a disease of the stomach. Other causes may include: ??? An allergic reaction. ??? Some cancer treatments (radiation). ??? Smoking cigarettes or the use of products that contain nicotine or tobacco. In some cases, the cause of this condition is not known. What increases the risk? Having a disease of the intestines. ??? Having a disease in which the body's immune system attacks the body (autoimmune disease), such as Crohn's disease. ??? Using aspirin or ibuprofen and other NSAIDs to treat other conditions, such as heart disease or chronic pain. ??? Stress. What are the signs or symptoms? Symptoms of this condition include: ??? Pain or a burning sensation in the upper abdomen. ??? Nausea. ??? Vomiting. ??? An uncomfortable feeling of fullness after eating. ??? Weight loss. ??? Bad breath. ??? Blood in your vomit or stool (feces). In some cases, there are no symptoms. How is this diagnosed? This condition may be diagnosed based on your medical history, a physical exam, and tests. Tests may include: ??? Your medical history and a description of your symptoms. ??? A physical exam. ??? Tests. These can include: ? Blood tests. ? Stool tests. ? A test in which a thin, flexible instrument with a light and a camera is passed down the esophagus and into the stomach (upper endoscopy). ? A test in which a tissue sample is removed to look at it under a microscope (biopsy). How is this treated? This condition may be treated with medicines. The medicines that are used vary depending on the cause of the gastritis. ??? If the condition is caused by a bacterial infection, you may be given antibiotic medicines. ??? If the condition is caused by too much acid in the stomach, you may be given medicines called H2 blockers, proton pump inhibitors, or antacids. Treatment may also involve stopping the use of certain medicines such as aspirin or ibuprofen and other NSAIDs. Follow these instructions at home: Medicines ??? Take ddbr-ulx-nyaieac and prescription medicines only as told by your health care provider. ??? If you were prescribed an antibiotic medicine, take it as told by your health care provider. Do not stop taking the antibiotic even if you start to feel better. Alcohol use ??? Do not drink alcohol if: ? Your health care provider tells you not to drink. ? You are , may be , or are planning to become . ??? If you drink alcohol: ? Limit your use to: ? 0?1 drink a day for women. ? 0?2 drinks a day for men. ? Know how much alcohol is in your drink. In the [place] one drink equals one 12 oz bottle of beer (355 mL), one 5 oz glass of wine (148 mL), or one 1? oz glass of hard liquor (44 mL). General instructions ??? Eat small, frequent meals instead of large meals. ??? Avoid foods and drinks that make your symptoms worse. ??? Talk with your health care provider about ways to manage stress, such as getting regular exercise or practicing deep breathing, meditation, or yoga. ??? Do not use any products that contain nicotine or tobacco. These products include cigarettes, chewing tobacco, and vaping devices, such as e-cigarettes. If you need help quitting, ask your health care provider. ??? Drink enough fluid to keep your urine pale yellow. ??? Keep all follow-up visits. This is important. Contact a health care provider if: ??? Your symptoms get worse. ??? Your abdominal pain gets worse. ??? Your symptoms return after treatment. ??? You have a fever. Get help right away if: ??? You vomit blood or a substance that looks like coffee grounds. ??? You have black or dark red stools. ??? You are unable to keep fluids down. These symptoms may represent a serious problem that is an emergency. Do not wait to see if the symptoms will go away. Get medical help right away. Call your local emergency services (911 in the [place] Do not drive yourself to the hospital. Summary ??? Gastritis is inflammation of the lining of the stomach that can occur suddenly (acute) or develop slowly over time (chronic). ??? This condition is diagnosed with a medical history, a physical exam, or tests. ??? This condition may be treated with medicines to treat infection or medicines to reduce the amount of acid in your stomach. ??? Follow your health care provider's instructions about taking medicines, making changes to your diet, and knowing when to call for help. This information is not intended to replace advice given to you by your health care provider. Make sure you discuss any questions you have with your health care provider. Document Revised: 08/01/2021 Document Reviewed: 08/01/2021 [employer] Patient Education ? 2023 [employer].Oncology Colon Polyps Colon polyps are tissue growths inside the colon, which is part of the large intestine. They are one of the types of polyps that can grow in the body. A polyp may be a round bump or a mushroom-shaped growth. You could have one polyp or more [...] more likely to develop this condition: ??? Having a family history of colorectal cancer or colon polyps. ??? Being older than 45 years of age. ??? Being younger than 45 years of age and having a significant family history of colorectal cancer or colon polyps or a genetic condition that puts you at higher risk of getting colon polyps. ??? Having inflammatory bowel disease, such as ulcerative colitis or Crohn's disease. ??? Having certain conditions passed from parent to child (hereditary conditions), such as: ? Familial adenomatous polyposis (FAP). ? Rangel syndrome. ? Turcot syndrome. ? Peutz?Jeghers syndrome. ? MUTYH-associated polyposis (MAP). ??? Being overweight. ??? Certain lifestyle factors. These include smoking cigarettes, drinking too much alcohol, not getting enough exercise, and eating a diet that is high in fat and red meat and low in fiber. ??? Having had childhood cancer that was treated with radiation of the abdomen. What are the signs or symptoms? Many times, there are no symptoms. If you have symptoms, they may include: ??? Blood coming from the rectum during a bowel movement. ??? Blood in the stool (feces). The blood may be bright red or very dark in color. ??? Pain in the abdomen. ??? A change in bowel habits, such as [...] these instructions at home: Eating and drinking ??? Eat foods that are high in fiber, such as fruits, vegetables, and whole grains. ??? Eat foods that are high in calcium and vitamin D, such as milk, cheese, yogurt, eggs, liver, fish, and broccoli. ??? Limit foods that are high in fat, such as fried foods and desserts. ??? Limit the amount of red meat, precooked or cured meat, or other processed meat that you eat, such as hot dogs, sausages, rodriguez, or meat loaves. ??? Limit sugary drinks. Lifestyle ??? Maintain a healthy weight, or lose weight if recommended by your health care provider. ??? Exercise every day or as told by your health care provider. ??? Do not use any products that contain nicotine or tobacco, such as cigarettes, e-cigarettes, and chewing tobacco. If you need help quitting, ask your health care provider. ??? Do not drink alcohol if: ? Your health care provider tells you not to drink. ? You are , may be , or are planning to become . ??? If you drink alcohol: ? Limit how much you use to: ? 0?1 drink a day for women. ? 0?2 drinks a day for men. ? Know how much alcohol is in your drink. In the [place] one drink equals one 12 oz bottle of beer (355 mL), one 5 oz glass of wine (148 mL), or one 1? oz glass of hard liquor (44 mL). General instructions ??? Take kxut-zao-hgciqfy and prescription medicines only as told by your health care provider. ??? Keep all follow-up visits. This is important. This includes having regularly scheduled colonoscopies. Talk to your health care provider about when you need a colonoscopy. Contact a health care provider if: ??? You have new or worsening bleeding during a bowel movement. ??? You have new or increased blood in your stool. ??? You have a change in bowel habits. ??? You lose weight for no known reason. Summary ??? Colon polyps are tissue growths inside the colon, which is part of the large intestine. They are one type of polyp that can grow in the body. ??? Most colon polyps are noncancerous (benign), but some can become cancerous over time. ??? This condition is diagnosed with a colonoscopy. ??? This condition is treated by removing any polyps that are found. Most polyps can be removed during a colonoscopy. This information is not intended to replace advice given to you by your health care provider. Make sure you discuss any questions you have with your health care provider. Document Revised: 07/16/2020 Document Reviewed: 07/16/2020 [employer] Patient Education ? 2023 [employer] PROGRESS NOTE-PHYSICIAN Observed: 2024 9:37 AM Status: F Source: [facility] Progress Note-Physician Patient: TATE ENCARNACION Age: 53 years Sex: Male : 1970 Associated Diagnoses: None Author: Cody Tay MD Postoperative Information Postoperative disposition: Postoperative disposition: To PACU. Optimetrix number: Optimetrix number [id number]. Anesthetic utilized: General. Health Status Allergies: Allergic [...] when meets criteria ( To home ). Result Comment: Electronical ly Signed By: Cody Tay MD\.br\Date and Time Signed: 05/11/24 09:38 EST DISCHARGE INSTRUCTIONS Observed: 025 9:30 AM Status: F Source: [facility] Discharge Instructions TATE ENCARNACION :1970 Visit Date:05/11/2024 [...] EST With: Lesley ROMERO, González Cadena Where: [facility] [address] [place] [address] [address] [address]- Tuesday 9:45 AM EDT With: AURORA ROMERO, Ji Be Where: [facility] [address] [place] [address]- Medications What How Much When Why Instructions Next Dose New omeprazole (omeprazole 40 mg Cap-DR) 1 Capsules By Mouth 2 times a day Refills: 3 Pickup at [facility] Unchanged cholecalciferol (Vitamin D3 50 mcg [...] a day (in the morning) Pharmacy Information [facility]: [address] [place] [phone] Test Results No qualifying data available. Allergies [...] fillers, or emulsifiers. ??? Malt flavoring, malt extract, or malt syrup. ??? Hydrolyzed vegetable protein. In the [place] packaged foods that are gluten-free are required to be labeled GF. These foods should be easy to identify and are safe to eat. In the [place] food companies are also required to list common food allergens, including wheat, on their labels. Shopping When grocery shopping, start in the produce, meat, and dairy sections. These areas are more likely to contain gluten-free foods. Then move to the aisles that contain packaged foods if you need to. Meal planning ??? All fruits, vegetables, and meats are safe to eat and do not contain gluten. ??? Talk with your dietitian or health care provider before taking a gluten-free multivitamin or mineral supplement. ??? Be aware of gluten-free foods having contact with foods that contain gluten (cross-contamination). This can happen at home and with any processed foods. ? Talk with your health care provider or dietitian about how to reduce the risk of cross-contamination in your home. ? If you have questions about how a food is processed, ask the fowl blood tester. What foods can I eat? Fruits All [...] cereals made from cornmeal or GF grains. [place], rice, and wild rice. Some rice noodles or dick noodles. Arrowroot starch, corn bran, corn flour, corn germ, cornmeal, corn starch, potato flour, potato starch flour, and rice bran. Plain, brown, and sweet rice flours. Rice mosotho, soy flour, and tapioca starch. Meats and [...] butter, olive oil, shortening, lard, cream, and some mayonnaise. Some commercial salad dressings. Olives. Sweets and [...] (MSG). Cider, rice, and wine vinegar. Baking soda and baking powder. Cream of tartar. Baking and [...] vegetables canned in sauces. Some commercially prepared vegetables and salads. Vegetables in a soy sauce marinade [...] or meat loaves. Bread-containing products, such as Solomon Islander steak, croquettes, meatballs, and meatloaf. Most tuna canned in vegetable broth. Norman with hydrolyzed vegetable protein (HVP) injected as [...] some gravy extracts, some meat sauces, some ketchups, some prepared mustards, and horseradish. Certain soy sauces. Malt vinegar. Bouillon and bouillon cubes that contain HVP. Some chip dips. Some chewing gum. Yeast extract. Peter's yeast. Caramel color. Some medicines and supplements. The items listed above may not be a complete list of foods and beverages you should avoid. Contact a dietitian for more information. Summary ??? Gluten is a protein that is found in wheat, rye, barley, and some other grains. The gluten-free diet includes all foods that do not contain gluten. ??? If you need help finding gluten-free foods or if you have questions, talk with your dietitian or your health care provider. ??? Read all food labels. Gluten is often added to foods. Always check the ingredient list and look for warnings that the food may contain gluten. This information is not intended to replace advice given to you by your health care provider. Make sure you discuss any questions you have with your health care provider. Document Revised: 02/16/2022 Document Reviewed: 02/16/2022 [employer] Patient Education ??? 2023 [employer]. Upper Endoscopy, Adult, Care After After the procedure, it is common to have a sore throat. It is also common to have: ??? Mild stomach pain or discomfort. ??? Bloating. ??? Nausea. Follow these instructions at home: The instructions below may help you care for yourself at home. Your health care provider may give you more instructions. If you have questions, ask your health care provider. ??? If you were given a sedative during the procedure, it can affect you for several hours. Do not drive or operate machinery until your health care provider says that it is safe. ??? If you will be going home right after the procedure, plan to have a responsible adult: ? Take you home from the hospital or clinic. You will not be allowed to drive. ? Care for you for the time you are told. ??? Follow instructions from your health care provider about what you may eat and drink. ??? Return to your normal activities as told by your health care provider. Ask your health care provider what activities are safe for you. ??? Take ijbw-vzy-nqzijqs and prescription medicines only as told by your health care provider. Contact a health care provider if you: ??? Have a sore throat that lasts longer than one day. ??? Have trouble swallowing. ??? Have a fever. Get help right away if you: ??? Vomit blood or your vomit looks like coffee grounds. ??? Have bloody, black, or tarry stools. ??? Have a very bad sore throat or you cannot swallow. ??? Have difficulty breathing or very bad pain in your chest or abdomen. These symptoms may be an emergency. Get help right away. Call 911. ??? Do not wait to see if the symptoms will go away. ??? Do not drive yourself to the hospital. Summary ??? After the procedure, it is common to have a sore throat, mild stomach discomfort, bloating, and nausea. ??? If you were given a sedative during the procedure, it can affect you for several hours. Do not drive until your health care provider says that it is safe. ??? Follow instructions from your health care provider about what you may eat and drink. ??? Return to your normal activities as told by your health care provider. This information is not intended to replace advice given to you by your health care provider. Make sure you discuss any questions you have with your health care provider. Document Revised: 07/07/2022 Document Reviewed: 07/07/2022 [employer] Patient Education ??? 2023 [employer]. Esophagitis Esophagitis is inflammation of the esophagus. The esophagus is the tube that carries food from the mouth to the stomach. Esophagitis can cause soreness or pain in the esophagus. This condition can make it difficult and painful to swallow. What are the causes? Most causes of esophagitis are not serious. Common causes of this condition include: ??? Gastroesophageal reflux disease (GERD). This is when stomach contents move back up into the esophagus (reflux). ??? Repeated vomiting. ??? An allergic reaction, especially caused by food allergies (eosinophilic esophagitis). ??? Injury to the esophagus by swallowing large pills with or without water, or swallowing certain types of medicines. ??? Swallowing harmful chemicals, such as household cleaning products. ??? Drinking a lot of alcohol. ??? An infection of the esophagus. This most often occurs in people who have a weakened immune system. ??? Radiation or chemotherapy treatment for cancer. ??? Certain diseases such as sarcoidosis, Crohn's disease, and scleroderma. What are the signs or symptoms? Symptoms of this condition include: ??? Difficult or painful swallowing. ??? Pain with swallowing acidic liquids, such as citrus juices. You may also have pain when you burp. ??? Chest pain and difficulty breathing. ??? Nausea and vomiting. ??? Pain in the abdomen. ??? Weight loss. ??? Ulcers in the mouth and white patches in the mouth (candidiasis). ??? Fever. ??? Coughing up blood or vomiting blood. ??? Stool that is black, tarry, or bright red. How is this diagnosed? This condition may be diagnosed based on your medical history and a physical exam. You may also have other tests, including: ??? A test to examine your esophagus and stomach with a small flexible tube with a camera (endoscopy). ??? A test that measures the acidity level in your esophagus. ??? A test that measures how much pressure is on your esophagus. ??? A barium swallow or modified barium swallow to show the shape, size, and functioning of your esophagus. ??? Allergy tests. How is this treated? Treatment for this condition depends on the cause of your esophagitis. In some cases, steroids or other medicines may be given to help relieve your symptoms or to treat the underlying cause of your condition. You may have to make some lifestyle changes, such as: ??? Avoiding alcohol. ??? Quitting any products that contain nicotine or tobacco. These products include cigarettes, chewing tobacco, and vaping devices, such as e-cigarettes. If you need help quitting, ask your health care provider. ??? Changing your diet. ??? Exercising. ??? Changing your sleep habits and your sleep environment. Follow these instructions at home: Medicines ??? Take hppn-fkj-frarufe and prescription medicines only as told by your health care provider. ??? Do not take aspirin, ibuprofen, or other NSAIDs unless your health care provider told you to do so. ??? If you have trouble taking pills: ? Use a pill splitter to decrease the size of the pill. This will decrease the chance of the pill getting stuck or injuring your esophagus. ? Drink water after you take a pill. Eating and drinking ??? Avoid foods and drinks that seem to make your symptoms worse. ??? Follow a diet as recommended by your health care provider. This may involve avoiding foods and drinks such as: ? Coffee and tea, with or without caffeine. ? Drinks that contain alcohol. ? Energy drinks and sports drinks. ? Carbonated drinks or sodas. ? Chocolate and cocoa. ? Peppermint and mint flavorings. ? Garlic and onions. ? Horseradish. ? Spicy and acidic foods, including peppers, chili powder, menezes powder, vinegar, hot sauces, and barbecue sauce. ? [place] fruit juices and citrus fruits, such as oranges, ronald, and limes. ? Tomato-based foods, such as red sauce, chili, salsa, and pizza with red sauce. ? Fried and fatty foods, such as donuts, german fries, potato chips, and high-fat dressings. ? High-fat meats, such as hot dogs and fatty cuts of red and white meats, such as rib eye steak, sausage, ham, and rodriguez. ? High-fat dairy items, such as whole milk, butter, and cream cheese. Lifestyle ??? Eat small, frequent meals instead of large meals. ??? Avoid drinking large amounts of liquid with your meals. ??? Avoid eating meals during the 2???3 hours before bedtime. ??? Avoid lying down right after you eat. ??? Do not exercise right after you eat. ??? Do not use any products that contain nicotine or tobacco. These products include cigarettes, chewing tobacco, and vaping devices, such as e-cigarettes. If you need help quitting, ask your health care provider. General instructions ??? Pay attention to any changes in your symptoms. Let your health care provider know about them. ??? Wear loose-fitting clothing. Do not wear anything tight around your waist that causes pressure on your abdomen. ??? Raise (elevate) the head of your bed about 6 inches (15 cm). You may need to use a wedge to do this. ??? Try relaxation strategies such as yoga, deep breathing, or meditation to manage stress. If you need help reducing stress, ask your health care provider. ??? If you are overweight, reduce your weight to an amount that is healthy for you. Ask your health care provider for guidance about a safe weight loss goal. ??? Keep all follow-up visits. This is important. Contact a health care provider if: ??? You have new symptoms. ??? You have unexplained weight loss. ??? You have difficulty swallowing, or it hurts to swallow. ??? You have wheezing or a cough that does not go away. ??? Your symptoms do not improve with treatment. ??? You have frequent heartburn for more than two weeks. Get help right away if: ??? You have sudden severe pain in your arms, neck, jaw, teeth, or back. ??? You suddenly feel sweaty, dizzy, or light-headed. ??? You have chest pain or shortness of breath. ??? You vomit and the vomit is green, yellow, or black, or it looks like blood or coffee grounds. ??? Your stool is red, bloody, or black. ??? You have a fever. ??? You cannot swallow, drink, or eat. These symptoms may represent a serious problem that is an emergency. Do not wait to see if the symptoms will go away. Get medical help right away. Call your local emergency services (911 in the [place] Do not drive yourself to the hospital. Summary ??? Esophagitis is inflammation of the esophagus. ??? Most causes of esophagitis are not serious. ??? Follow your health care provider's instructions about eating and drinking. ??? Contact a health care provider if you have new symptoms, have weight loss, or coughing that does not stop. ??? Get help right away if you have severe pain in the arms, neck, jaw, teeth, or back, or if you have chest pain, shortness of breath, or fever. This information is not intended to replace advice given to you by your health care provider. Make sure you discuss any questions you have with your health care provider. Document Revised: 10/06/2020 Document Reviewed: 10/06/2020 [employer] Patient Education ??? 2023 [employer]. Celiac Disease Celiac disease is a condition [...] likely to develop this condition if you: ??? Have a family member with the disease. ??? Have an autoimmune condition, such as Type 1 diabetes or a thyroid disorder. ??? Are female. What are the signs or symptoms? Symptoms of this condition include: ??? Recurring bloating, pain in the abdomen, and gas. ??? Long-term (chronic) diarrhea and pale, bad-smelling, greasy, or oily stool. ??? Weight loss. ??? Missed menstrual periods. ??? Weak bones (osteoporosis). ??? Fatigue and weakness. ??? Tingling or other signs of nerve damage. ??? Depression. ??? Poor appetite. ??? Rash. ??? Anemia. In some cases, there are no symptoms of this condition. How is this diagnosed? This condition is diagnosed with a physical exam and tests. Tests may include: ??? Blood tests to check for nutritional deficiencies. ??? Blood tests to look for evidence that the body is attacking cells in the small intestine. ??? A test in which a sample of tissue is taken from the small intestine and looked at under a microscope (biopsy). ??? X-rays of the intestine. ??? Stool tests. ??? Tests to check for nutrient absorption from the intestine. How is this treated? There is no cure for this condition. It is managed by following a strict gluten- free diet. ??? Treatment may also involve avoiding dairy foods, such as milk and cheese, because they are difficult to digest. ??? Most people who follow a strict gluten-free diet feel better and stop having symptoms. ??? The intestine usually heals within 3 months to 2 years. In a small percentage of people, this condition does not improve on a gluten- free diet. If your condition does not improve, more tests may be done. You may also need to work with a celiac disease specialist to find the best treatment for you. Follow these instructions at home: ??? Follow instructions from your health care provider about what you may eat and drink. ??? Monitor your body's response to the gluten-free diet. Write down any changes in your symptoms and in how you feel. ??? If you eat while you are away from home, prepare your food ahead of time. Or, make sure that the place where you are going has gluten-free options. ??? Suggest to family members that they get screened for early signs of celiac disease. ??? Keep all follow-up visits. This is important. Contact a health care provider if: ??? You continue to have symptoms, even when you are eating a gluten-free diet. ??? You have trouble following a gluten-free diet. ??? You develop an itchy rash with groups of tiny blisters. ??? You develop severe weakness. ??? You develop balance problems. ??? You develop new symptoms. Summary ??? Celiac disease is a condition in which the body's disease-fighting system (immune system) attacks the small intestine and causes damage. ??? There is no cure for this condition. It is managed by following a strict gluten- free diet. For some people, following a low-dairy or dairy-free diet also helps. ??? Follow instructions from your health care provider about what you may eat and drink. Write down any changes in your symptoms and in how you feel. ??? Contact a health care provider if you continue to have symptoms, even when you are eating a gluten-free diet, or if you have new symptoms. ??? Keep all follow-up visits. This is important. This information is not intended to replace advice given to you by your health care provider. Make sure you discuss any questions you have with your health care provider. Document Revised: 02/16/2022 Document Reviewed: 02/16/2022 [employer] Patient Education ??? 2023 [employer] Gastritis, Adult Gastritis is inflammation of the stomach. There are two kinds of gastritis: ??? Acute gastritis. This kind develops suddenly. ??? Chronic gastritis. This kind is much more common. It develops slowly and lasts for a long time. Gastritis happens when the lining of the stomach becomes weak or gets damaged. Without treatment, gastritis can lead to stomach bleeding and ulcers. What are the causes? This condition may be caused by: ??? An infection. ??? Drinking too much alcohol. ??? Certain medicines. These include steroids, antibiotics, and some rnsz-vqo-dmvmzkv medicines, such as aspirin or ibuprofen. ??? Having too much acid in the stomach. ??? Having a disease of the stomach. Other causes may include: ??? An allergic reaction. ??? Some cancer treatments (radiation). ??? Smoking cigarettes or the use of products that contain nicotine or tobacco. In some cases, the cause of this condition is not known. What increases the risk? Having a disease of the intestines. ??? Having a disease in which the body's immune system attacks the body (autoimmune disease), such as Crohn's disease. ??? Using aspirin or ibuprofen and other NSAIDs to treat other conditions, such as heart disease or chronic pain. ??? Stress. What are the signs or symptoms? Symptoms of this condition include: ??? Pain or a burning sensation in the upper abdomen. ??? Nausea. ??? Vomiting. ??? An uncomfortable feeling of fullness after eating. ??? Weight loss. ??? Bad breath. ??? Blood in your vomit or stool (feces). In some cases, there are no symptoms. How is this diagnosed? This condition may be diagnosed based on your medical history, a physical exam, and tests. Tests may include: ??? Your medical history and a description of your symptoms. ??? A physical exam. ??? Tests. These can include: ? Blood tests. ? Stool tests. ? A test in which a thin, flexible instrument with a light and a camera is passed down the esophagus and into the stomach (upper endoscopy). ? A test in which a tissue sample is removed to look at it under a microscope (biopsy). How is this treated? This condition may be treated with medicines. The medicines that are used vary depending on the cause of the gastritis. ??? If the condition is caused by a bacterial infection, you may be given antibiotic medicines. ??? If the condition is caused by too much acid in the stomach, you may be given medicines called H2 blockers, proton pump inhibitors, or antacids. Treatment may also involve stopping the use of certain medicines such as aspirin or ibuprofen and other NSAIDs. Follow these instructions at home: Medicines ??? Take gwbo-gqw-pxhsfuv and prescription medicines only as told by your health care provider. ??? If you were prescribed an antibiotic medicine, take it as told by your health care provider. Do not stop taking the antibiotic even if you start to feel better. Alcohol use ??? Do not drink alcohol if: ? Your health care provider tells you not to drink. ? You are , may be , or are planning to become . ??? If you drink alcohol: ? Limit your use to: ? 0???1 drink a day for women. ? 0???2 drinks a day for men. ? Know how much alcohol is in your drink. In the [place] one drink equals one 12 oz bottle of beer (355 mL), one 5 oz glass of wine (148 mL), or one 1??? oz glass of hard liquor (44 mL). General instructions ??? Eat small, frequent meals instead of large meals. ??? Avoid foods and drinks that make your symptoms worse. ??? Talk with your health care provider about ways to manage stress, such as getting regular exercise or practicing deep breathing, meditation, or yoga. ??? Do not use any products that contain nicotine or tobacco. These products include cigarettes, chewing tobacco, and vaping devices, such as e-cigarettes. If you need help quitting, ask your health care provider. ??? Drink enough fluid to keep your urine pale yellow. ??? Keep all follow-up visits. This is important. Contact a health care provider if: ??? Your symptoms get worse. ??? Your abdominal pain gets worse. ??? Your symptoms return after treatment. ??? You have a fever. Get help right away if: ??? You vomit blood or a substance that looks like coffee grounds. ??? You have black or dark red stools. ??? You are unable to keep fluids down. These symptoms may represent a serious problem that is an emergency. Do not wait to see if the symptoms will go away. Get medical help right away. Call your local emergency services (911 in the [place] Do not drive yourself to the hospital. Summary ??? Gastritis is inflammation of the lining of the stomach that can occur suddenly (acute) or develop slowly over time (chronic). ??? This condition is diagnosed with a medical history, a physical exam, or tests. ??? This condition may be treated with medicines to treat infection or medicines to reduce the amount of acid in your stomach. ??? Follow your health care provider's instructions about taking medicines, making changes to your diet, and knowing when to call for help. This information is not intended to replace advice given to you by your health care provider. Make sure you discuss any questions you have with your health care provider. Document Revised: 08/01/2021 Document Reviewed: 08/01/2021 [employer] Patient Education ??? 2023 [employer]. Common Emergency Awareness Tips IS IT A STROKE? Act FAST and Check for these signs: FACE Does the face look uneven? ARM Does one arm drift down? SPEECH Does their speech sound strange? TIME Call at any sign of stroke Heart Attack Signs Chest discomfort: Most heart attacks involve discomfort in the center of the chest and lasts more than a few minutes, or goes away and comes back. It can feel like uncomfortable pressure, squeezing, fullness or pain. Discomfort in upper body: Symptoms can include pain or discomfort in one or both arms, back, neck, jaw or stomach. Shortness of breath: With or without discomfort. Other signs: Breaking out in a cold sweat, nausea, or lightheaded. Remember, MINUTES DO MATTER. If you experience any of these heart attack warning signs, call to get immediate medical attention! Patient Survey You may receive a survey in the mail asking you about your stay with us. We want to hear from you, please share your experience with us by completing your survey. Thank you for choosing [facility]. Adelina Award Nomination The ADELINA (Diseases Attacking the Immune SYstem) Award is an international recognition program that honors and celebrates the skillful, compassionate care nurses provide every day. Anyone who experiences or observes amazing care being provided by a nurse is encouraged to submit a nomination. To nominate your nurse, use your smart phone to scan the QR code below. Patient Portal You may access all of your results and other medical record information on our secure patient portal. If you are not signed up for this yet, please contact [employer] at [phone] to get signed up today. Patient Name: TATE ENCARNACION I have received this information and my questions have been answered. Patient/Rn Ante Partum Name: Patient/Rn Ante Partum Signature: Relationship to Patient: Witness Name/Signature: Date: Result Comment: Electronical ly Signed By: Cy SADLER, Mariama\.br\Date and Time Signed: 05/11/24 09:30 EST ENDOSCOPIC PROCEDURE REPORT - OTHER Observed: 05/11/2024 9:05 AM Status: F Source: [facility] Endoscopic Procedure Report - Other Patient: TATE ENCARNACION [...] qAM, # 75 gram, Refills(s) 3, Pharmacy: [facility], 165, cm, 05/07/24 9:19:00 EST, Height/Length Dosing, 108.1, kg, 05/07/24 9:19:00 EST, Weight Dosing Questran 4 g/9 g oral powder: = 1 packet(s), Oral, BID, # 60 EA, Refills(s) 0, Pharmacy: [facility], 170, cm, 04/24/24 8:57:00 EST, Height/Length Dosing, 108.6, kg, 04/24/24 8:57:00 EST, Weight Dosing Zenpep 60,000 units-189,600 units-252,600 units oral delayed release capsule: See Instructions, 300 cap(s), Refill(s) 3, Take 2 caps with each meal and 1 with each snack, [facility], 170, cm, 04/24/24 8:57:00 EST, Height/Length Dosing, 108.6, kg, 04/24/24 8:57:00 EST, Weight Dosing tadalafil 20 mg Tab: 20 mg = 1 tab(s), Oral, As Directed, PRN for erectile dysfunction, Pt to take one tab 1 hour prior to sexual activity. Do not exceed 20mg in 24 hours., # 30 tab(s), Refills(s) 0, Pharmacy: [facility], 165, cm, 05/07/24 9:19:00 Logan DASH... [...] the left lateral decubitus position. Endoscope type used was a pediatric-size. The endoscope was lubricated then [...] terminal ileum Images Procedure images: Rec_hd_video___[id number].jpg Rec_hd_video__[id number].jpg Rec_hd_video___15_[id number].jpg Rechd_video____071.jpg Rec_hd_video____04_714.jpg Rec1_hd_video____57_958.jpg Rec_hd_video____44_461.jpg Rec1_hd_video__T__17_[id number].jpg . Post-Procedure Complications: none. Estimated blood [...] ileum Recommendations: Repeat colonoscopy:: In 5 years. Follow-up:: in clinic for 1-2 weeks when pathology is available. Diet:: Previous. Medication resumption:: Continue current medications, Avoid NSAIDs. Return to activities:: After 24 hours. Education and Follow-up: Counseled: Patient, Family. Result Comment: Electronical ly Signed By: Lesley ROMERO, González Cadena\.br\Date and Time Signed: 05/11/24 09:07 EST Other Comment: Missing Attac hment - attachment storage system not supported [id number] Can be viewed in source system Missing Attachment - attachment storage system not supported [id number] Can be viewed in source systemMissing Attachment - attachment storage system not supported [id number] Can be viewed in source systemMissing Attachment - attachment storage system not supported [id number] Can be viewed in source systemMissing Attachment - attachment storage system not supported [id number] Can be viewed in source systemMissing Attachment - attachment storage system not supported [id number] Can be viewed in source systemMissing Attachment - attachment storage system not supported [id number] Can be viewed in source systemMissing Attachment - attachment storage system not supported [id number] Can be viewed in source system ENDOSCOPIC PROCEDURE REPORT - OTHER Obse rved: 05/11/2024 8:41 AM Status: C Source: [facility] Endoscopic Procedure Report - Other Patient: TTAE ENCARNACION Age: 53 years Sex: Male : [...] safety measures. Endoscope type used was an adult-size, introduced orally, advanced to the 3rd portion [...] rule out celiac disease Images Procedure images: Rec_hd_video__[id number].jpg Rec_hd_video__[id number].jpg Rec_hd_video_T08_[id number].jpg Rec_hd_video_T08_[id number].jpg Rec_hd_video_T08_[id number]_244.jpg Rec_hd_video_T08_[id number]_320.jpg Rec1_hd_video__T08_[id number].jpg Rec1_hd_video__T08_[id number]_346.jpg Rec1_hd_video__T08_[id number]_21_276.jpg . Post-Procedure Complications: none. [...] in 3 months to ensure esophagitis healing Result Comment: Electronical ly Signed By: Lesley ROMERO, González Cadena\.br\Date and Time Signed: 05/11/24 09:09 EST Other Comment: Missing Attac hment - attachment storage system not supported [id number] Can be viewed in source system Missing Attachment - attachment storage system not supported [id number] Can be viewed in source systemMissing Attachment - attachment storage system not supported [id number] Can be viewed in source systemMissing Attachment - attachment storage system not supported [id number] Can be viewed in source systemMissing Attachment - attachment storage system not supported [id number] Can be viewed in source systemMissing Attachment - attachment storage system not supported [id number] Can be viewed in source systemMissing Attachment - attachment storage system not supported [id number] Can be viewed in source systemMissing Attachment - attachment storage system not supported [id number] Can be viewed in source systemMissing Attachment - attachment storage system not supported [id number] Can be viewed in source system SURGICAL PATHOLOGY REPORT Observed: 04/13 8:38 AM Status: F [facility] [place] [address] Surgical Pathology Report Collected Date/Time: 05/11/2024 08:38 EST Pathologist: Sultana ROMERO, Triny Received Date/Time: 05/11/2024 10:55 EST Lesley ROMERO, González Sutton MD, González [facility]odeaux Surgical Pathology [...] is entirely submitted in one cassette. (DC) DC:[facility] Microscopic Description Microscopic examination performed unless gross only specified. This report was transcribed using voice recognition technology and might contain unintended computerized surgeon partner errors.The use of one or more reagents in the above tests is regulated as an analyte specific reagent (ASR). The test or tests are ordered following initial H&E microscopic examination. The performance characteristics were determined by the [facility] Surgical Pathology. They have not been cleared or approved by the [place] Food and Drug Administration. The FDA has determined that such clearance or approval is not necessary. These tests are used for clinical purposes. They should not be regarded as investigational or for research. Appropriate positive and negative controls are performed and are acceptable. This report was transcribed using voice recognition technology and might contain unintended computerized surgeon partner errors. Performed By: #### [id number] # ### [facility] [address] [place] [address] SURGICAL PATHOLOGY REPORT Observed: 04/13 8:38 AM Status: F Source: [address] [place] [address]- Surgical Pathology Report Collected Date/Time: 05/11/2024 08:38 [...] is entirely submitted in one cassette. (DC) DC:[facility] Microscopic Description Microscopic examination performed unless gross only specified. This report was transcribed using voice recognition technology and might contain unintended computerized surgeon partner errors.The use of one or more reagents in the above tests is regulated as an analyte specific reagent (ASR). The test or tests are ordered following initial H&E microscopic examination. The performance characteristics were determined by the [facility] Surgical Pathology. They have not been cleared or approved by the [place] Food and Drug Administration. The FDA has determined that such clearance or approval is not necessary. These tests are used for clinical purposes. They should not be regarded as investigational or for research. Appropriate positive and negative controls are performed and are acceptable. This report was transcribed using voice recognition technology and might contain unintended computerized surgeon partner errors. Performed By: #### [id number] # ### [facility] [address] [place] [address] MAIN OR PACU II RECORD Observed: 025 8:35 AM Status: F Source: [facility] Main OR PACU II Record PACU Phase II Document Type FT Summary Primary Physician: González Sutton MD Finalized Date/Time: 05/11/24 10:02:45 Pt. Name: TATE ENCARNACION /Sex: 1970 Male Med Rec #: [id number] Physician: Alejandra Hayden MD Financial #: [id number] Pt. Type: O Room/Bed: / Admit/Disch: 05/11/24 [...] Signed By: Mariama Benoit RN 05/11/24 10:02 MAIN OR INTRAOPERATIVE RECORD Observed: 05/11/2024 8:35 AM Status: C Source: [facility] Main OR Intraoperative Recor d IntraOp Document Type FT Summary Primary Physician: González Sutton MD Finalized Date/Time: 05/11/24 10:41:05 Pt. Name: TATE ENCARNACION/Sex: 1970 Male Med Rec #: [id number] Physician: Alejandra Hayden MD Financial #: [id number] Pt. Type: O Room/Bed: / Admit/Disch: 05/11/24 07:10:51 - Institution: Case Times FT Entry 1 Patient Times In Room 05/11/24 08:30:00 Out Room 05/11/24 09:08:00 Procedure Times Start 05/11/24 08:35:00 Stop 05/11/24 09:04:00 Anesthesia Times Start 05/11/24 08:30:00 Stop 05/11/24 09:08:00 Time at [facility] 05/11/24 08:49:00 Last Modified By: Becky Negrete RN 05/11/24 09:08:08 General Comments: 0840-EGD completed/AW RN 0844-Colonoscopy started/AW RN 05/11/2024 Chart opened for charge review per Alice Davis RN. [place] Case Attendance FT Entry 1 Entry 2 Entry 3 Case Attendee Geovani HEATH, Gonzalo Negrete RN, Sheldon Martines Role Performed Anesthesiologist Form Building Supervisor - Primary Scrub - Primary Appraiser Art Time In 05/11/24 08:30:00 05/11/24 08:30:00 05/11/24 [...] room Last Modified By: Penelope SADLER, Becky Hurt RN 05/11/24 09:08:58 05/11/24 09:08:58 Perioperative Protocols FT [...] and tissue Entry 1 Skin Integrity Intact, [place], Warm, & Skin Abnormality No Dry Outcomes Met? Yes Last Modified By: Becky Negrete RN 05/11/24 09:06:34 Post-Care Text: The patient is free from signs and symptoms of injury caused by extraneous objects Patient Positioning FT Pre-Care Text: Identifies physical alterations that require additional precautions for procedure-specific positioning, verifies presence of prosthetics or corrective devices, positions the patient, evaluates the patient for signs and symptoms of injury as a result of positioning Entry 1 Procedure EGD AND COLONOSCOPY(.) Body Position Lateral, right side up Feet Uncrossed? Yes Left Arm Position Resting at Side Right Arm Position Resting at Side Left Leg Position Extended Right Leg Position Extended Positioning Device Safety Strap, Pillow Under Head Large Press Points Checked Yes By Becky Negrete RN Outcomes Met? Yes Last Modified By: Becky Negrete RN 05/11/24 09:06:42 Post-Care Text: The patient is free from signs and symptoms of injury related to positioning Patient Care Devices FT Pre-Care Text: Implements protective measures to prevent skin/ tissue injury due to thermal or mechanical sources Entry 1 Entry 2 Equipment Type ENDOSCOPY VIDEO SYSTEM MONITOR CHARGE SURGERY Equipment Number [id number] E1 Equipment Setting Outcomes Met? Yes Yes Last Modified By: Becky Negrete RN, RN, Angela 05/11/24 09:07:06 05/11/24 09:07:06 Post-Care Text: The patient is free from signs and symptoms of injury caused by extraneous objects Transport To OR Pre-Care Text: Transports according to individual needs. Evaluates for signs and symptoms of skin and tissue injury as a result of transfer or transport Entry 1 Via Cart By Becky Negrete RN Safety Precautions Side Rails Up Outcomes Met? Yes Last Modified By: Becky Negrete RN 05/11/24 09:07:11 Post-Care Text: The patient is free from signs and symptoms of injury related to transfer/transport Departure From OR Pre-Care Text: Transports according to individual needs. Evaluates for signs and symptoms of skin and tissue injury as a result of transfer or transport. Entry 1 Via Cart Safety Precautions Safety Strap, Side Rails Up PostOp Destination PACU Transported By Becky Negrete RN Patient Status Stable Skin. Condition Intact, [place], Warm, & Dry Airway Maintenance Oxygen in Use? No Airway Device N/A Outcomes Met? Yes Last Modified By: Becky Negrete RN 05/11/24 09:07:27 Post-Care Text: The patient is free from signs and symptoms of injury related to transfer/transport General Comments: Report given to ROUTE RIDER SUPERVISOR/AW dye weigher helper Administration FT Pre-Care Text: Verifies allergies, administers prescribed medications and solutions, administers prescribed antibiotic therapy and immunizing agents as ordered, evaluates response to medications Administers prescribed medications and solutions Entry 1 Expiration Date Yes Outcomes Met? Yes Verified Last Modified By: Becky Negrete RN 05/11/24 09:07:33 Post-Care Text: The patient received appropriate medication(s) safely administered during the perioperative period For [facility] please see scanned medication reconcilliation form for medications used at the field during the procedure. Cultures & Specimens FT Pre-Care Text: Manages specimen handling and disposition Manages culture specimen collection Entry 1 Cultures Ordered n/a Specimens Ordered Yes Specimen Disposition Designated OR Area Frozen Section Times Outcomes Met? Yes Last Modified By: Becky Negrete RN 05/11/24 09:07:43 Post-Care Text: The patient is free from signs and symptoms of injury caused by extraneous objects The patient is free from signs and symptoms of infection Sign Out FT Entry 1 Before Patient Leaves OR Nurse verbally Yes Nurse verbally n/a confirms with the confirms with the team the name of team that the procedure(s) instrument, sponge, recorded and needle counts are correct (or N/A) Nurse verbally Yes Nurse verbally Yes confirms with the confirms with the team how the team whether there specimen is labeled are any equipment (including patient problems to be name), if applicable addressed Sign Out Complete 05/11/24 09:04:00 Last Modified By: Becky Negrete RN 05/11/24 09:07:56 Case Comments <None> Finalized By: Susan ASDLER, REGLA, Bela Document Signatures Signed By: Becky Negrete RN 05/11/24 09:16 Becky Negrete RN 05/11/24 09:09 Becky Negrete RN 05/11/24 09:15 Susan SADLER, KHARIN, Bela 05/11/24 10:41 HISTORY AND PHYSICAL Observed: 5 8:23 AM Status: F Source: [facility] History and Physical Patient: TATE ENCARNACION Age: 53 [...] qAM, # 75 gram, Refills(s) 3, Pharmacy: [facility], 165, cm, 05/07/24 9:19:00 EST, Height/Length Dosing, 108.1, kg, 05/07/24 9:19:00 EST, Weight Dosing Questran 4 g/9 g oral powder: = 1 packet(s), Oral, BID, # 60 EA, Refills(s) 0, Pharmacy: [facility], 170, cm, 04/24/24 8:57:00 EST, Height/Length Dosing, 108.6, kg, 04/24/24 8:57:00 EST, Weight Dosing Zenpep 60,000 units-189,600 units-252,600 units oral delayed release capsule: See Instructions, 300 cap(s), Refill(s) 3, Take 2 caps with each meal and 1 with each snack, [facility] #72, 170, cm, 04/24/24 8:57:00 EST, Height/Length Dosing, 108.6, kg, 04/24/24 8:57:00 EST, Weight Dosing tadalafil 20 mg Tab: 20 mg = 1 tab(s), Oral, As Directed, PRN for erectile dysfunction, Pt to take one tab 1 hour prior to sexual activity. Do not exceed 20mg in 24 hours., # 30 tab(s), Refills(s) 0, Pharmacy: [facility], 165, cm, 05/07/24 9:19:00 Logan DASH... [...] hypertension (high blood pressure) / SNOMED CT 15591201 / Confirmed Thyroid function tests abnormal / SNOMED CT 915721882 / Confirmed Anemia of chronic disorder (low iron) / SNOMED CT 319118219 / Confirmed Bloating / SNOMED CT 855405711 / Confirmed Black stool / SNOMED CT 283649922 / Confirmed Chronic GERD / SNOMED CT 027525421 / Confirmed Decreased sexual desire / SNOMED CT 177319766 / Confirmed Alcohol drinker / SNOMED CT 089624295 / Confirmed Stress-related physiological response affecting medical condition / SNOMED CT 13472311 / Confirmed High triglycerides / SNOMED CT 451589000 / Confirmed Obesity due to excess calories / SNOMED CT 3457171884 / Confirmed ED (erectile dysfunction) / SNOMED CT 9410836702 / Confirmed Hypogonadism male / SNOMED CT 94193000 / Confirmed Screening PSA (prostate specific antigen) / SNOMED CT 655779189 / Confirmed BPH with urinary obstruction / SNOMED CT 8686738512 / Confirmed Acquired buried penis / SNOMED CT 417943139 / Confirmed Histories Past Medical History: No [...] mmHg (MAY 11:) Weight 108.6 kg (MAY 11:) BMI 37.58 (MAY 11:) General: in Nad Abdomen: Soft, NTND Impression and Plan Impression: change in bowel habits Plan: -EGD and Colonoscopy Result Comment: Electronical ly Signed By: Lesley ROMERO, González Cadena\.br\Date and Time Signed: 05/11/24 08:34 EST PROGRESS NOTE-PHYSICIAN Observed: 2024 8:19 AM Status: F Source: [facility] Progress Note-Physician Patient: TATE ENCARNACION Age: 53 years [...] qAM, # 75 gram, Refills(s) 3, Pharmacy: [facility], 165, cm, 05/07/24 9:19:00 EST, Height/Length Dosing, 108.1, kg, 05/07/24 9:19:00 EST, Weight Dosing Questran 4 g/9 g oral powder: = 1 packet(s), Oral, BID, # 60 EA, Refills(s) 0, Pharmacy: [facility], 170, cm, 04/24/24 8:57:00 EST, Height/Length Dosing, 108.6, kg, 04/24/24 8:57:00 EST, Weight Dosing Zenpep 60,000 units-189,600 units-252,600 units oral delayed release capsule: See Instructions, 300 cap(s), Refill(s) 3, Take 2 caps with each meal and 1 with each snack, [facility], 170, cm, 04/24/24 8:57:00 EST, Height/Length Dosing, 108.6, kg, 04/24/24 8:57:00 EST, Weight Dosing tadalafil 20 mg Tab: 20 mg = 1 tab(s), Oral, As Directed, PRN for erectile dysfunction, Pt to take one tab 1 hour prior to sexual activity. Do not exceed 20mg in 24 hours., # 30 tab(s), Refills(s) 0, Pharmacy: [facility], 165, cm, 05/07/24 9:19:00 EST, Hei... [...] Problems Acquired buried penis / SNOMED CT 714975990 / Confirmed Alcohol drinker / SNOMED CT 818395515 / Confirmed Anemia of chronic disorder (low iron) / SNOMED CT 011928557 / Confirmed Benign hypertension (high blood pressure) / SNOMED CT 96732472 / Confirmed Black stool / SNOMED CT 570171952 / Confirmed Bloating / SNOMED CT 972787698 / Confirmed BPH with urinary obstruction / SNOMED CT 4996565710 / Confirmed Chronic GERD / SNOMED CT 537384215 / Confirmed Decreased sexual desire / SNOMED CT 108507417 / Confirmed ED (erectile dysfunction) / SNOMED CT 1298441516 / Confirmed High triglycerides / SNOMED CT 358343671 / Confirmed Hypogonadism male / SNOMED CT 95981129 / Confirmed Obesity due to excess calories / SNOMED CT 9394046788 / Confirmed Screening PSA (prostate specific antigen) / SNOMED CT 734930771 / Confirmed Stress-related physiological response affecting medical condition / SNOMED CT 37654080 / Confirmed Thyroid function tests abnormal / SNOMED CT 187689621 / Confirmed Canceled: Low libido / SNOMED CT 714781125, Active Problems (16) Acquired buried penis Alcohol [...] Type: Oral . Physical Examination Vital Signs 05/11/2024 7:28 EST Temperature Temporal Artery 36.6 DegC Heart Rate Monitored 73 bpm Respiratory Rate Monitored 20 br/min Systolic Blood Pressure 141 mmHg HI Diastolic Blood Pressure 93 mmHg HI Blood Pressure Location Left arm SpO2 95 % Vital Signs (last 24 hrs) Last Charted Temp Temporal 36.6 DegC (MAY 11 07:28) Heart Rate Monitored 73 bpm (MAY 11:) Resp Rate 20 br/min (MAY 11:) SBP H 141 mmHg (MAY 11:) DBP H 93 mmHg (MAY 11:) Weight 108.6 kg (MAY 11 07:18) BMI 37.58 (MAY 11 07:18) Measurements from flowsheet : Measurements 05/11/2024 7:18 EST Height/Length Measured 170 cm Height/Length Dosing 170.0 cm Weight Dosing 108.6 kg BSA Measured 2.26 m2 Body Mass Index Measured 37.58 kg/m2 Weight Measured 108.6 kg Airway: Mallampati classification: II (soft palate, fauces, uvula visible). Respiratory: Lungs are clear to auscultation, Respirations are non-labored, adequate air exchange. Cardiovascular: Regular rhythm, No murmur. Review / Management Results review: No qualifying data available . Plan [place] [employer]hes[employer] (ASA) physical status classification: Class II. Anesthetic Preoperative Plan: Anesthesia General. Result Comment: Electronical ly Signed By: Jasvir ROMERO, Cody Alvarez\.br\Date and Time Signed: 05/11/24 08:21 EST MAIN OR PREOPERATIVE RECORD Observed: 8:15 AM Status: F Source: [facility] Main OR Preoperative Record Holding Area Document Type FT Summary Primary Physician: González Sutton MD Finalized Date/Time: 05/11/24 07:18:36 Pt. Name: TATE ENCARNACION /Sex: 1970 Male Med Rec #: [id number] Physician: Alejandra Hayden MD Financial #: [id number] Pt. 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 Your Care Team Attending Physician - AURORA ROMERO, Ji Be Primary Care Physician - NEW GARRISON CNP Referring Physician - Jackelyn ROMERO, [...] Appointments Tuesday 8:15 AM EST With: Where: [facility] Tuesday 9:00 AM EST With: Lesley ROMERO, González Cadena Where: [facility] [address] [place] [id number]- Tuesday 9:45 AM EDT With: Ji WILDER MD Where: [facility] [address] [place] [address]- You Need to Schedule the Following Appointments Follow Up with AURORA ROMERO, Ji Be, URL When: Comments: 4 mos w/ PSA and T level Where: [facility] [address], [place] [address]- [phone] Medications What How Much When Why Instructions New tadalafil (tadalafil 20 mg Tab) 1 Tablets By Mouth As Directed as needed for for erectile dysfunction Pt to take one tab 1 hour prior to sexual activity. Do not exceed 20mg in 24 hours. Pickup at [facility] New testosterone (AndroGel Pump 20.25 mg/ 1.25 g (1.62%) transdermal gel) 2 Pump Topical Once a day (in the morning) Refills: 3 Pickup at [facility] Unchanged cholecalciferol (Vitamin D3 50 mcg [...] physician if questions or concerns Pharmacy Information [facility]: [address] [place], [place] [id number] [phone] Allergies No Known Allergies No Known Medication [...] Follow these instructions at home: ??? Take vrsb-lbh-huldrlm and prescription medicines only as told by your health care provider. ??? Eat foods that are high in fiber, such as beans, whole grains, and fresh fruits and vegetables. Limit foods that are high in fat and processed sugars, such as fried or sweet foods. ??? If you drink alcohol: ? Limit how much you have to 0???2 drinks a day. ? Know how much alcohol is in your drink. In the [place] one drink equals one 12 oz bottle of beer (355 mL), one 5 oz glass of wine (148 mL), or one 1??? oz glass of hard liquor (44 mL). [...] provider. Document Revised: 11/27/2020 Document Reviewed: 11/27/2020 [employer] Patient Education ??? 2023 [employer] Erectile Dysfunction Erectile dysfunction (ED) is the inability to get or keep an erection in order to have sexual intercourse. ED is considered a symptom of an underlying disorder and is not considered a disease. ED may include: ??? Inability to get an erection. ??? Lack of enough hardness of the erection to allow penetration. ??? Loss of erection before sex is finished. What are the causes? This condition may be caused by: ??? Physical causes, such as: ? Artery problems. This may include heart disease, high blood pressure, atherosclerosis, and diabetes. ? Hormonal problems, such as low testosterone. ? Obesity. ? Nerve problems. This may include back or pelvic injuries, multiple sclerosis, Parkinson's disease, spinal cord injury, and stroke. ??? Certain medicines, such as: ? Pain relievers. ? Antidepressants. ? Blood pressure medicines and water pills (diuretics). ? Cancer medicines. ? Antihistamines. ? Muscle relaxants. ??? Lifestyle factors, such as: ? Use of drugs such as marijuana, cocaine, or opioids. ? Excessive use of alcohol. ? Smoking. ? Lack of physical activity or exercise. ??? Psychological causes, such as: ? Anxiety or stress. ? Sadness or depression. ? Exhaustion. ? Fear about sexual performance. ? Guilt. What are the signs or symptoms? Symptoms of this condition include: ??? Inability to get an erection. ??? Lack of enough hardness of the erection to allow penetration. ??? Loss of the erection before sex is finished. ??? Sometimes having normal erections, but with frequent unsatisfactory episodes. ??? Low sexual satisfaction in either partner due to erection problems. ??? A curved penis occurring with erection. The curve may cause pain, or the penis may be too curved to allow for intercourse. ??? Never having nighttime or morning erections. How is this diagnosed? This condition is often diagnosed by: ??? Performing a physical exam to find other diseases or specific problems with the penis. ??? Asking you detailed questions about the problem. ??? Doing tests, such as: ? Blood tests to check for diabetes mellitus or high cholesterol, or to measure hormone levels. ? Other tests to check for underlying health conditions. ? An ultrasound exam to check for scarring. ? A test to check blood flow to the penis. ??? Doing a sleep study at home to measure nighttime erections. How is this treated? This condition may be treated by: ??? Medicines, such as: ? Medicine taken by mouth to help you achieve an erection (oral medicine). ? Hormone replacement therapy to replace low testosterone levels. ? Medicine that is injected into the penis. Your health care provider may instruct you how to give yourself these injections at home. ? Medicine that is delivered with a short applicator tube. The tube is inserted into the opening at the tip of the penis, which is the opening of the urethra. A tiny pellet of medicine is put in the urethra. The pellet dissolves and enhances erectile function. This is also called MUSE (medicated urethral system for erections) therapy. ??? Vacuum pump. This is a pump with a ring on it. The pump and ring are placed on the penis and used to create pressure that helps the penis become erect. ??? Penile implant surgery. In this procedure, you may receive: ? An inflatable implant. This consists of cylinders, a pump, and a reservoir. The cylinders can be inflated with a fluid that helps to create an erection, and they can be deflated after intercourse. ? A semi-rigid implant. This consists of two silicone rubber rods. The rods provide some rigidity. They are also flexible, so the penis can both curve downward in its normal position and become straight for sexual intercourse. ??? Blood vessel surgery to improve blood flow to the penis. During this procedure, a blood vessel from a different part of the body is placed into the penis to allow blood to flow around (bypass) damaged or blocked blood vessels. ??? Lifestyle changes, such as exercising more, losing weight, and quitting smoking. Follow these instructions at home: Medicines ??? Take koou-fqn-jxmscng and prescription medicines only as told by your health care provider. Do not increase the dosage without first discussing it with your health care provider. ??? If you are using self-injections, do injections as directed by your health care provider. Make sure you avoid any veins that are on the surface of the penis. After giving an injection, apply pressure to the injection site for 5 minutes. ??? Talk to your health care provider about how to prevent headaches while taking ED medicines. These medicines may cause a sudden headache due to the increase in blood flow in your body. General instructions ??? Exercise regularly, as directed by your health care provider. Work with your health care provider to lose weight, if needed. ??? Do not use any products that contain nicotine or tobacco. These products include cigarettes, chewing tobacco, and vaping devices, such as e-cigarettes. If you need help quitting, ask your health care provider. ??? Before using a vacuum pump, read the instructions that come with the pump and discuss any questions with your health care provider. ??? Keep all follow-up visits. This is important. Contact a health care provider if: ??? You feel nauseous. ??? You are vomiting. ??? You get sudden headaches while taking ED medicines. ??? You have any concerns about your sexual health. Get help right away if: ??? You are taking oral or injectable medicines and you have an erection that lasts longer than 4 hours. If your health care provider is unavailable, go to the nearest emergency room for evaluation. An erection that lasts much longer than 4 hours can result in permanent damage to your penis. ??? You have severe pain in your groin or abdomen. ??? You develop redness or severe swelling of your penis. ??? You have redness spreading at your groin or lower abdomen. ??? You are unable to urinate. ??? You experience chest pain or a rapid heartbeat (palpitations) after taking oral medicines. These symptoms may represent a serious problem that is an emergency. Do not wait to see if the symptoms will go away. Get medical help right away. Call your local emergency services (911 in the [place] Do not drive yourself to the hospital. Summary ??? Erectile dysfunction (ED) is the inability to get or keep an erection during sexual intercourse. ??? This condition is diagnosed based on a physical exam, your symptoms, and tests to determine the cause. Treatment varies depending on the cause and may include medicines, hormone therapy, surgery, or a vacuum pump. ??? You may need follow-up visits to make sure that you are using your medicines or devices correctly. ??? Get help right away if you are taking or injecting medicines and you have an erection that lasts longer than 4 hours. This information is not intended to replace advice given to you by your health care provider. Make sure you discuss any questions you have with your health care provider. Document Revised: 06/24/2021 Document Reviewed: 06/24/2021 [employer] Patient Education ??? 2023 [employer]. UROLOGY OFFICE/CLINIC NOTE Observed: 9:57 AM Status: F Source: [facility] Urology Office/Clinic Note Chief Complaint New patient [...] bothersome. -Cont sx monitoring 5. Acquired buried penis (N48.83: Acquired buried penis) Pt reports penis has shrunken. Advised pt size does not change but penis will appear smaller with weight gain. Recommended weight loss to improve this. Follow-up With When Contact Information AURORA ROMERO, Ji Be, URL [facility] [address], [place] [address] [phone] Additional Instructions: 4 mos w/ PSA and T level Patient Education Hypogonadism, Male Erectile Dysfunction I, Nirmala Lama, personally scribed for Dr. Wilder on 05/07/2024 09:57:17. . Documentation recorded by the scribe, Nirmala Lama, accurately reflects the services(s) I performed and decisions made by me. Authenticated by Dr. Wilder on 05/07/2024 10:05:13. Problem List/Past Medical History Ongoing Acquired buried penis Alcohol drinker Anemia of chronic disorder (low iron) Benign hypertension (high blood pressure) Black stool Bloating BPH with urinary obstruction Chronic GERD Decreased sexual desire ED (erectile dysfunction) High triglycerides Hypogonadism male Obesity due to excess calories Screening PSA (prostate specific antigen) Stress-related physiological response affecting medical condition Thyroid function tests abnormal Historical No qualifying data Medications levothyroxine, Daily Prozac, 20 mg, Oral, Daily Questran 4 g/9 g oral powder, 1 packet(s), Oral, BID, Not taking Vascepa 1 g oral capsule, Oral, BID Vitamin D3 50 mcg (2000 intl units) oral tablet, chewable, Oral, Daily Zenpep 60,000 units-189,600 units-252,600 units oral delayed release capsule, See Instructions, 3 refills, Not taking Allergies No Known Allergies No Known Medication Allergies Social History Alcohol Current. Beer. Daily., 04/21/2024 Substance Abuse Never., 04/21/2024 Tobacco Never (less than 100 in lifetime), Chewing tobacco Tobacco Use:. Smokeless tobacco user within last 30 days Smokeless Tobacco Use:. Oral, 05/07/2024 Family History Diabetes mellitus: Father. Hypertension: Father. Immunizations Vaccine Date Status Comments influenza virus vaccine, inactivated - Not Given Patient Refuses Result Comment: Electronical ly Signed By: Ji WILDER MD\.br\Date and Time Signed: 05/07/24 10:05 EST\.br\Electronically Co-Signed By: Nirmala Lama\.br\Date and Time Co-Signed: 05/07/24 09:58 EST PATIENT EDUCATION Observed: 05/07/2024 9:53 AM Status: C Source: [facility] Patient Education Urology Hypogonadism, Male Male hypogonadism [...] Follow these instructions at home: ??? Take ktsx-qxj-hwmrufc and prescription medicines only as told by [...] provider. Document Revised: 11/27/2020 Document Reviewed: 11/27/2020 [employer] Patient Education ? 2023 [employer].Erectile Dysfunction Erectile dysfunction (ED) is the inability to get or keep an erection in order to have sexual intercourse. ED is considered a symptom of an underlying disorder and is not considered a disease. ED may include: ??? Inability to get an erection. ??? Lack of enough hardness of the erection to allow penetration. ??? Loss of erection before sex is finished. What are the causes? This condition may be caused by: ??? Physical causes, such as: ? Artery problems. This may include heart disease, high blood pressure, atherosclerosis, and diabetes. ? Hormonal problems, such as low testosterone. ? Obesity. ? Nerve problems. This may include back or pelvic injuries, multiple sclerosis, Parkinson's disease, spinal cord injury, and stroke. ??? Certain medicines, such as: ? Pain relievers. ? Antidepressants. ? Blood pressure medicines and water pills (diuretics). ? Cancer medicines. ? Antihistamines. ? Muscle relaxants. ??? Lifestyle factors, such as: ? Use of drugs such as marijuana, cocaine, or opioids. ? Excessive use of alcohol. ? Smoking. ? Lack of physical activity or exercise. ??? Psychological causes, such as: ? Anxiety or stress. ? Sadness or depression. ? Exhaustion. ? Fear about sexual performance. ? Guilt. What are the signs or symptoms? Symptoms of this condition include: ??? Inability to get an erection. ??? Lack of enough hardness of the erection to allow penetration. ??? Loss of the erection before sex is finished. ??? Sometimes having normal erections, but with frequent unsatisfactory episodes. ??? Low sexual satisfaction in either partner due to erection problems. ??? A curved penis occurring with erection. The curve may cause pain, or the penis may be too curved to allow for intercourse. ??? Never having nighttime or morning erections. How is this diagnosed? This condition is often diagnosed by: ??? Performing a physical exam to find other diseases or specific problems with the penis. ??? Asking you detailed questions about the problem. ??? Doing tests, such as: ? Blood tests to check for diabetes mellitus or high cholesterol, or to measure hormone levels. ? Other tests to check for underlying health conditions. ? An ultrasound exam to check for scarring. ? A test to check blood flow to the penis. ??? Doing a sleep study at home to measure nighttime erections. How is this treated? This condition may be treated by: ??? Medicines, such as: ? Medicine taken by mouth to help you achieve an erection (oral medicine). ? Hormone replacement therapy to replace low testosterone levels. ? Medicine that is injected into the penis. Your health care provider may instruct you how to give yourself these injections at home. ? Medicine that is delivered with a short applicator tube. The tube is inserted into the opening at the tip of the penis, which is the opening of the urethra. A tiny pellet of medicine is put in the urethra. The pellet dissolves and enhances erectile function. This is also called MUSE (medicated urethral system for erections) therapy. ??? Vacuum pump. This is a pump with a ring on it. The pump and ring are placed on the penis and used to create pressure that helps the penis become erect. ??? Penile implant surgery. In this procedure, you may receive: ? An inflatable implant. This consists of cylinders, a pump, and a reservoir. The cylinders can be inflated with a fluid that helps to create an erection, and they can be deflated after intercourse. ? A semi-rigid implant. This consists of two silicone rubber rods. The rods provide some rigidity. They are also flexible, so the penis can both curve downward in its normal position and become straight for sexual intercourse. ??? Blood vessel surgery to improve blood flow to the penis. During this procedure, a blood vessel from a different part of the body is placed into the penis to allow blood to flow around (bypass) damaged or blocked blood vessels. ??? Lifestyle changes, such as exercising more, losing weight, and quitting smoking. Follow these instructions at home: Medicines ??? Take lnxw-aul-twfdavq and prescription medicines only as told by your health care provider. Do not increase the dosage without first discussing it with your health care provider. ??? If you are using self-injections, do injections as directed by your health care provider. Make sure you avoid any veins that are on the surface of the penis. After giving an injection, apply pressure to the injection site for 5 minutes. ??? Talk to your health care provider about how to prevent headaches while taking ED medicines. These medicines may cause a sudden headache due to the increase in blood flow in your body. General instructions ??? Exercise regularly, as directed by your health care provider. Work with your health care provider to lose weight, if needed. ??? Do not use any products that contain nicotine or tobacco. These products include cigarettes, chewing tobacco, and vaping devices, such as e-cigarettes. If you need help quitting, ask your health care provider. ??? Before using a vacuum pump, read the instructions that come with the pump and discuss any questions with your health care provider. ??? Keep all follow-up visits. This is important. Contact a health care provider if: ??? You feel nauseous. ??? You are vomiting. ??? You get sudden headaches while taking ED medicines. ??? You have any concerns about your sexual health. Get help right away if: ??? You are taking oral or injectable medicines and you have an erection that lasts longer than 4 hours. If your health care provider is unavailable, go to the nearest emergency room for evaluation. An erection that lasts much longer than 4 hours can result in permanent damage to your penis. ??? You have severe pain in your groin or abdomen. ??? You develop redness or severe swelling of your penis. ??? You have redness spreading at your groin or lower abdomen. ??? You are unable to urinate. ??? You experience chest pain or a rapid heartbeat (palpitations) after taking oral medicines. These symptoms may represent a serious problem that is an emergency. Do not wait to see if the symptoms will go away. Get medical help right away. Call your local emergency services (911 in the [place] Do not drive yourself to the hospital. Summary ??? Erectile dysfunction (ED) is the inability to get or keep an erection during sexual intercourse. ??? This condition is diagnosed based on a physical exam, your symptoms, and tests to determine the cause. Treatment varies depending on the cause and may include medicines, hormone therapy, surgery, or a vacuum pump. ??? You may need follow-up visits to make sure that you are using your medicines or devices correctly. ??? Get help right away if you are taking or injecting medicines and you have an erection that lasts longer than 4 hours. This information is not intended to replace advice given to you by your health care provider. Make sure you discuss any questions you have with your health care provider. Document Revised: 06/24/2021 Document Reviewed: 06/24/2021 PAIEON Patient Education ? 2023 [employer]. US ABDOMEN, LIMITED Observed: 04/26/2024 8:31 AM Status: F Source: [facility] Exam Date/Time: 04/26/2024 09:07 EST Reason for [...] MD Transcribed by: MARIA C Technologist: DEONNA, CALPROTECTIN, FECAL Collected: 04/25/19 8:00 AM Status: F Source: [facility] TYPE CODE TESTS RESULT OUT OF RANGE REFERENCE UNITS LAB 05137-8(LOINC) CALPROTECTIN :MCNT:PT:STO OL:QN: 15 Unknown 0-120 mcg/gm Result Comment: Concentratio n Interpretation Follow-Up < 5 - 50 ug/g Normal None >50 -120 ug/g Borderline Re-evaluate in 4-6 weeks >120 ug/g Abnormal Repeat as clinically indicated Performed at: [address] [id number] MD Alfredo Green Performed By: #### [id number] #### [facility] [address] [place] [address] PANCREATIC ELASTASE, FECAL Collected: 04/25/2024 8:00 AM Status: F Source: [facility] TYPE CODE TESTS RESULT OUT OF RANGE REFERENCE UNITS LAB 07421-8([facility]) ELASTASE.PANC REATIC:MCNT:P T:STOOL:QN: 9 Low >200 Result Comment: Severe Pancr eatic Insufficiency: <100 Moderate Pancreatic Insufficiency: 100 - 200 Normal: >200 Performed at: [address] [id number] MD Alfredo Green Performed By: #### [id number] #### [facility] [address] [place] [address] TESTOST TOTAL Collected: 04/24/2024 9:53 AM Status: F Source: [facility] TYPE CODE TESTS RESULT OUT OF RANGE REFERENCE UNITS LAB 2986-8(LOINC) TESTOSTERONE: MCNC:PT:SER/P LAS:QN: 194 Low 264-916 ng/dL Result Comment: Adult male r eference interval is based on a population of healthy nonobese males (BMI <30) between 19 and 39 years old. Mildred et.al. JCEM 2017,102;7164-2342. PMID: 17079785. Performed at: [facility] [address] [place], [place] [id number] PhD Franklin Pollard Performed By: #### [id number] # ### [facility] [address] [place] [address] CRP Collected: 04/24/2024 9:53 AM Status: F Source: [facility] TYPE CODE TESTS RESULT OUT OF RANGE REFERENCE UNITS LAB 1988-5(LOINC) C REACTIVE PROTEIN:MCNC:P T:SER/PLAS:QN: 0.2 Normal <=1.9 mg/dL Performed By: #### [id number] # ### [facility] [address] [place] [address] CELIAC DISEASE COMPREHENSIVE Collected: 04/24/2024 9: 53 AM Status: F Source: [facility] TYPE CODE TESTS RESULT OUT OF RANGE REFERENCE UNITS LAB 38580-3(LOIN C) GLIADIN PEPTIDE AB.IGA:ACNC:PT:SER :QN: 4 Unknown 0-19 unit(s) Result Comment: Negative 0 - 19 Weak Positive 20 - 30 Moderate to Strong Positive >30 LAB 59720-2(LOIN C) GLIADIN PEPTIDE AB.IGG:ACNC:PT:SER :QN: 2 Unknown 0-19 unit(s) Result Comment: Negative 0 - 19 Weak Positive 20 - 30 Moderate to Strong Positive >30 LAB 27798-4(LOIN C) TISSUE TRANSGLUTAMINASE AB.IGA:ACNC:PT:SER :QN: <2 Unknown 0-3 unit/mL Result Comment: Negative 0 - 3 Weak Positive 4 - 10 Positive >10 Tissue Transglutaminase (tTG) has been identified as the endomysial antigen. Studies have demonstr- ated that endomysial IgA antibodies have over 99% specificity for gluten sensitive enteropathy. LAB 20560-1(LOIN C) TISSUE TRANSGLUTAMINASE AB.IGG:ACNC:PT:SER :QN: <2 Unknown 0-5 unit/mL Result Comment: Negative 0 - 5 Weak Positive 6 - 9 Positive >9 LAB 11354-8(LOIN C) ENDOMYSIUM AB.IGA:PRTHR:PT:SE R:ORD: Negative Unknown Negative Result Comment: Serum is sli ghtly lipemic. LAB 2458-8(LOINC ) IGA:MCNC:PT:SER/PL :QN: 213 Unknown 90-386 mg/dL Result Comment: Performed at : [facility] [address] [id number] PhD Franklin Pollard Performed By: #### [id number] #### [facility] [address] [place] [address] AMBULATORY VISIT SUMMARY Observed: 04/24 9:36 AM Status: F Source: [facility] Ambulatory Visit Summary TATE ENCARNACION :1970 Visit [...] AM EST With: Alejandra Hayden MD Where: [facility] [address] [facility] [address] [address]- You Need to Complete the Following C-Reactive [...] Black stool Chronic GERD Decreased sexual desire, pp_set_radiology_subspecialty, [place] Medications What How Much When Why Instructions New cholestyramine (Questran 4 g/ 9 g oral powder) 1 Packets By Mouth 2 times a day Irritable bowel syndrome with diarrhea Bloating Black stool Chronic GERD Pickup at [facility] Unchanged cholecalciferol (Vitamin D3 50 mcg [...] physician if questions or concerns Pharmacy Information [facility]: [address] [place], [place] [id number] [phone] Medications and Immunizations Administered Not Given influenza [...] you for choosing us for your care. GASTROENTEROLOGY OFFICE/CLIN IC NOTE Observed: 04/24/2024 9:30 AM Status: F Source: [facility] Gastroenterology Office/Clin ic Note Chief Complaint Alternating bowels and bloating [...] BID, # 60 EA, Refills(s) 0, Pharmacy: [facility], 170, cm, 04/24/24 8:57:00 EST, Height/Length Dosing, 108.6, kg, 04/24/24 8:57:00 EST, Weight Dosing C-Reactive Protein Calprotectin, Fecal Celiac Disease Comprehensive Colonoscopy (Hospital Procedure) EGD Endoscopy (Hospital Procedure) IgA, Quant. Pancreatic Elastase, Fecal Pancreatic Elastase, Fecal Testosterone Level Total US Abdomen, Limited 2. Bloating (R14.0: Abdominal distension (gaseous)) Ordered: cholestyramine, = 1 packet(s), Oral, BID, # 60 EA, Refills(s) 0, Pharmacy: [facility], 170, cm, 04/24/24 8:57:00 EST, Height/Length Dosing, 108.6, kg, 04/24/24 8:57:00 EST, Weight Dosing C-Reactive Protein Calprotectin, Fecal Celiac Disease Comprehensive Colonoscopy (Hospital Procedure) EGD Endoscopy (Hospital Procedure) IgA, Quant. Pancreatic Elastase, Fecal Pancreatic Elastase, Fecal Testosterone Level Total US Abdomen, Limited 3. Black stool (K92.1: Melena) Ordered: cholestyramine, = 1 packet(s), Oral, BID, # 60 EA, Refills(s) 0, Pharmacy: [facility], 170, cm, 04/24/24 8:57:00 EST, Height/Length [...] BID, # 60 EA, Refills(s) 0, Pharmacy: [facility], 170, cm, 04/24/24 8:57:00 EST, Height/Length Dosing, 108.6, kg, 04/24/24 8:57:00 EST, Weight Dosing C-Reactive Protein Calprotectin, Fecal Celiac Disease Comprehensive Colonoscopy (Hospital Procedure) EGD Endoscopy (Hospital Procedure) IgA, Quant. Pancreatic Elastase, Fecal Pancreatic Elastase, Fecal Testosterone Level Total US Abdomen, Limited 5. Decreased sexual desire (F52.0: Hypoactive sexual desire disorder) Ordered: [facility] Internal Ambulatory Referral Pancreatic Elastase, Fecal Testosterone Level Total US Abdomen, Limited 6. Alcohol drinker (Z78.9: Other specified health status) 7. Stress-related physiological response affecting medical condition (F54: Psychological and behavioral factors associated with disorders or diseases classified elsewhere) 8. High triglycerides (E78.1: Pure hyperglyceridemia) 9. Obesity due to excess calories (E66.09: Other obesity due to excess calories) Obtain EGD with small bowel biopsies and colonoscopy with random colon biopsies and TI evaluation Might benefit from PPI in the future Might benefit from losing weight and eating healthy Obtain right upper quadrant ultrasound to evaluate right upper quadrant pain Start Questran 4 g twice daily and is to space out from other medications by 2 hours Check CRP, calprotectin, celiac panel, IgA levels, and stool elastase Refer to urology to evaluate decreased libido. Patient has high triglycerides, stress, alcohol use, on antidepressant, and has some obesity. Will check testosterone levels and refer to urology for further workup Follow-up No qualifying data available Problem List/Past Medical History Ongoing Alcohol drinker Anemia of chronic disorder (low iron) Benign hypertension (high blood pressure) Black stool Bloating Chronic GERD Decreased sexual desire High triglycerides Obesity due to excess calories Stress-related physiological response affecting medical condition Thyroid function tests abnormal Historical No qualifying data Medications levothyroxine, Daily Prozac, 20 mg, Oral, Daily Questran 4 g/9 g oral powder, 1 packet(s), Oral, BID Vascepa 1 g oral capsule, Oral, BID Vitamin D3 50 mcg (2000 intl units) oral tablet, chewable, Oral, Daily Allergies No Known Allergies No Known Medication Allergies Social History Alcohol Current. Beer. Daily., 04/21/2024 Substance Abuse Never., 04/21/2024 Tobacco Never (less than 100 in lifetime), Chewing tobacco Tobacco Use:. Smokeless tobacco user within last 30 days Smokeless Tobacco Use:. Oral, 04/24/2024 Family History Family history is negative Immunizations Vaccine Date Status Comments influenza virus vaccine, inactivated - Not Given Patient Refuses Result Comment: Electronical ly Signed By: Jackelyn ROMERO, Alejandra Harrison.br\Date and Time Signed: 04/24/24 09:30 EST ALLERGIES DATE TYPE / CODE NAME / CODE REACTION SEVERITY SOURCE [id number](SNOME D CT) No Known Allergies [facility] [id number](SNOME D CT) No Known Medication Allergies [facility] ENCOUNTERS ADMIT/DISCHARGE ACCOUNT NUMBER ADMITTING ENCOUNTER CLASS LOCATION SOURCE 08/16/2024/08/17/19 [id number] Ambulatory [place] [facility]: [place] [facility] DHRoom: CD:[id number] 63 [facility] 07/17/2024/07/18/19 [id number] [place]ulatory [place] [facility]: [place] DHRoom: CD:[id number] 91 [facility] 05/25/2024/05/25/19 [id number] Ambulatory Building:NO [facility] 05/22/2024/05/22/19 25 [id number] Ambulatory Building:NO [facility] 05/21/2024/05/21/19 25 [id number] Ambulatory [place] DH[facility]: [place] DHRoom: CD:[id number] 61 [facility] 05/18/2024/05/18/19 25 [id number] Ambulatory Building:NO [facility] 05/17/2024/05/17/19 25 [id number] Ambulatory Building:BS R NEURO [facility] 05/15/2024/05/15/19 25 [id number] Ambulatory Building:NO [facility] 05/11/2024/01 [id number] Alejandra Hayden Ambulatory FTBuildin g:FT END [facility] 05/07/2024/05/07/19 [id number] [place] Jessica m: Exam 2 [facility] 04/27/2024 [id number] Ambulatory [place] [facility] 04/26/2024/04/26/19 [id number] Alejandra Hayden Ambulatory FTBuildin g:FT US [facility] 04/25/2024/04/25/19 [id number] Alejandra Hayden Ambulatory FTBuildin g:FT LAB [facility] 04/24/2024/04/24/19 [id number] Alejandra Hayden Ambulatory FTBuildin g:FT LAB [facility] 04/24/2024 [id number] Alejandra Hayden Ambulatory FTBuildin g:FT LAB [facility] 04/24/2024/04/24/19 [id number] [place]ulatory [place] [facility]: [place] [facility] DHRoom: CD:[id number] [address] [place] [address] 04/18/2024 [id number] Ambulatory [place] [facility]: [place] PAYERS ENCOUNTER GUARANTOR PAYER SUBSCRIBER SOURCE 08/16/2024 TATE JOHNSON: [id number] [facility] 224Tel: ~~(4 1 (HP) Primary Insurance:MolinaPolicy Number: [id number] Date:[id number] [address]WY: [phone] TATE GOOD [facility] 07/17/2024 TATE DE JESUSALESHA: [id number] [facility] 224Tel: ~~(4 1 (HP) Primary Insurance:MolinaPolicy Number: [id number] Date:4900-95-83JK [address] [address]OU: [phone] [facility] TATEANNAMARIA ENCARNACIONDOB: [id number] [address], [place] [address]Ujj: (HP) Primary Insurance:[place] MEDICAIDPolicy Number: [id number] Date:2024-04-11 TATE SHASHANKDOB: [id number] [address] [place] [address] [facility] EPIC 05/22/2024 TATEANNAMARIA DE JESUSESDOB: [address] [address]Nqp: (HP) Primary Insurance:[place] MEDICAIDPolicy Number: [id number] Date:2024-04-11 TATE ENCARNACIONDOB: [id number] [address] [place] [address] [facility] EPIC 05/21/2024 TATE ENCARNACIONDOB: [facility] 224Tel: ~~(4 1 (HP) Primary Insurance:MolinaPolicy Number: [id number] Date:1398-92-02LC [address] [address]RV: [phone] [facility] 05/18/2024 TATEANNAMARIA ENCARNACIONDOB: [id number] [address], [place] [address]Hrt: (HP) Primary Insurance:[place] MEDICAIDPolicy Number: [id number] Date:2024-04-11 TATEANNAMARIA ENCARNACIONDOB: [id number] [address] [place] [address] [facility] EPIC 05/17/2024 TATE DE JESUSESDOB: [id number] [address], [place] [address]Pdi: (HP) Primary Insurance:[place] MEDICAIDPolicy Number: [id number] Date:2024-04-11 TATE XIONGB: [id number] [address], [place] [address] [facility] EPIC 05/15/2024 TATE XIONGB: [place], [place] [address]Nzs: (HP) Primary Insurance:[place] MEDICAIDPolicy Number: [id number] Date:2024-04-11 TATE XIONGB: [id number] [address] [place] [address] [facility] EPIC 05/11/2024 TATE ENCARNACIONDOB: [facility] [address] 224Tel: ~~(4 1 (HP) Primary Insurance:MolinaPolicy Number: [id number] Date:[id number] [address]GF: [phone] TATE GOOD [facility] 05/07/2024 TATE ENCARNACIONB: [facility] [address] 224Tel: ~~(4 1 (HP) Primary Insurance:MolinaPolicy Number: [id number] Date:[id number] [address]BU: [phone] TATE GOOD [facility] 04/26/2024 TATE ENCARNACIONDOB: [id number] [facility] [address] 224Tel: ~~(4 1 (HP) Primary Insurance:MolinaPolicy Number: [id number] Date:7017-71-37CT[address] [address]QJ: [phone] [facility] 04/25/2024 TATE ENCARNACIONB: [id number] [facility] [address] 224Tel: ~~(4 1 (HP) Primary Insurance:MolinaPolicy Number: [id number] Date:9600-09-71YY[address] [address]WE: [phone] TATEANNAMARIA GOOD [facility] 04/24/2024 TATE ENCARNACIONB: [id number] [facility] [address] 224Tel: ~~(4 1 (HP) Primary Insurance:MolinaPolicy Number: [id number] Date:5226-18-88PB [address] [place] [address]GT: [phone] TATEANNAM[address] [facility] 04/24/2024 TATE ENCARNACIONB: [id number] [facility] [address] 224Tel: ~~(4 1 (HP) Primary Insurance:MolinaPolicy Number: [id number] Date:5098-96-17BO [address] [place] [address]RN: [phone] [facility]
--- OUTSIDE RECORDS SUMMARY | 2024-08-27 12:09 | XMS_ITS ---
Author Organization The [facility] in [place] Address [address] [place] [address] Care Team Providers Care Forensic Computer Examiner Name Role Phone Kira Heredia Primary Care Provider [phone] Reason For Referral Diagnosis 1 Hand pain (M79.643) Referral [facility] Referring Provider First Name Kira Referring Provider Last Name Yan Referring Provider [facility] icine Referred Provider Jose Pfeiffer) Referred Provider Specialty Orthopedic S urgery General Notes Taylor Bennett 2024 08:40:44 AM >Second Opinion Referral Priority Routine REASON FOR VISIT Ortho Referral Encounters Encounter Location Date Provider Diagnosis [facility] [address] [place] [address] 08/27/2024 Kirabeth Heredia Hand pain M79.643 Assessments Encounter Date Diagnosis (ICD Code) Assessment Notes Treatment Notes Treatment Clinical Notes Section Notes 08/27/2024 Hand pain (ICD-10 - M79.643) Plan Of Treatment Referrals Referral Date Details 08/28/2024 08/28/2024Jose ( James) Next Appt Details Provider Name:Kira britton, 09/13/2024 09:00:00 AM, [address] [place], [address], Progress Notes * Kody ENCARNACIONDOB: 1 (53 yo M)Acc No.[id number]:08/27/2024 Patient: Rafael LANGEKody MCKNIGHT :1970 A ge:53 Y S ex:Male Address:[address] [place] [address] Subjective: * Chief Complaints: * O rtho Referral * Medical History: * Surgical History: * Hospitalization/Major Diagno stic Procedure: * Medications: Objective: * Vitals: * Physical Examination: Assessment: * Assessment: 1. H and pain - M79.643 (Primary) Plan: * Treatment: * Procedure Codes: * true * Date: Generated for Keisha garcia/Claribel/eTransmitting on: 0 09/04/2024 08:34 AM EDT Consultation Request Notes Referral Date Referring Provider Referred Provider Not es 08/28/2024 Kira Heredia Andrew (James)
--- OUTSIDE RECORDS SUMMARY | 2024-08-30 05:15 | XMS_ITS ---
Author Organization The [facility] in [place] Address [address] [place] [address] Care Team Providers Care Rib Stiffener And Heel Dipper Name Role Phone Kira Heredia Primary Care Provider REASON FOR VISIT testosterone Encounters Encounter Location Date Provider Diagnosis [facility] [address] [place] [address] 08/30/2024 Kira Heredia Low testosterone E29 .1 Assessments Encounter Date Diagnosis (ICD Code) Assessment Notes Treatment Notes Treatment Clinical Notes Section Notes 08/30/2024 Low testosterone (ICD-10 - E29.1) Plan Of Treatment Next Appt Details Provider Name:Kira britton, 09/13/2024 09:00:00 AM, [address] [place], [address], Medications Administered Medication Instructions Date of Administration Dosage Notes Testosterone Cypionate 08/30/2024 0.75 mL Progress Notes * Kody ENCARNACIONDOB: 1 (53 yo M)Acc No.[id number]:08/30/2024 Progress Note Patient: Kody PAVON Provider: Herrera Heredia ([facility]), EXTRUSION PRESS OPERATOR :1970 A ge:53 Y S ex:Male Date:08/30/2024 Address:[address], [facility] Check In:09:02 AM ESTCheck O ut:09:10 AM [...] On:04/26/2024U Status:confirmed M15.9 Polyarticular osteoa rthritis Modified On:05/01/2024 Status:confirmed M79.2 Neuralgia Modified On:06/18/2024 Status:confirmed * [...] 9 6372 THERAP.INJ. OF MED. INTRAMUSCULAR OR [id number] TESTOST CYPIONATE 1MG * * Sign off status: Completed Visit Status: C HK (Check Out) true * Provider: Herrera Heredia ([facility]), EXTRUSION PRESS OPERATOR Date: 08/30/2024 Generated for Maddyi ng/Claribel/eTransmitting on: 09/04/2024 08:34 AM EDT History and Physical Notes * HPI (History of Present Illness) Category Sub-Category Detail Notes Category Not es General presents to the office for standing order testosterone injection
--- OUTSIDE RECORDS SUMMARY | 2024-08-31 07:55 | XMS_ITS ---
Author Organization The [facility] in [place] Address [address] [place] [address] Care Team Providers Care Operations Analyst Name Role Phone Kira Heredia Primary Care Provider [phone] REASON FOR VISIT MRI results Encounters Encounter Location Date Provider Diagnosis [address] [address] 08/31/2024 Kira Heredia Plan Of Treatment Next Appt Details Provider Name:Kira britton, 09/13/2024 09:00:00 AM, [address] [place], [address], Progress Notes * Kody ENCARNAICONDOB: 1 (53 yo M)Acc No.[id number]:08/31/2024 Patient: Kody PAVON :1970 A ge:53 Y S ex:Male Address:[address], [place] [address] * true * Date: Generated for Printi ng/Faxing/eTransmitting on: 0 09/04/2024 08:34 AM EDT
--- NOTE | 2024-09-04 07:45 | NM_ITS ---
Patient Name: TATE ENCARNACION MR#: [id number] : 1970 Exam Date: 09/04/2024 Ordering Doctor: NEW GARRISON CNP RADIOLOGY REPORT PROCEDURE: NM BRITTNY PERF SPECT REST STR COMPARISON: None. INDICATIONS: CHEST PAIN TECHNIQUE: Exam Description: Stress/Rest one day protocol gated SPECT Rest Imagin.9 mCi Tc-99m Cardiolite IV on 09/04/2024 Stress Imaging 30.8 mCi Tc-99m Cardiolite IV on 09/04/2024 Exercise Protocol: Gregory Heart Rate (bpm): Rest: 57 Max: 144 PMHR: 86 Blood Pressure: Rest: 170/80 Max: 156/88 Exercise Time: Minutes: 9 Seconds: 45 Stage Reached: Stage: 4 Mets 11.1 Symptoms: Rest and peak stress ECG findings were pending, and the exercise portion of the study was pending per attending physician [facility]. For more details, please see separate cardiac stress test report. FINDINGS: QUALITY OF STUDY: Good PERFUSION DEFECT: LOCATION: N/A SIZE: N/A SEVERITY: N/A TYPE: N/A WALL MOTION: Normal wall motion LV SIZE: 100 mL. TID / TCD: 0.8 LVEF: Calculated EF 67%. SUMMARY: Myocardial perfusion imaging study is normal CONCLUSION: 1. Myocardial perfusion is normal 2. Global left ventricular systolic function is normal 3. No evidence of transient ischemic dilatation Dictated by: Mary Jo Araiza M.D. on 09/05/2024 at 16:50 Approved by: Mary Jo Araiza M.D. on 09/05/2024 at 16:52
--- OUTSIDE RECORDS SUMMARY | 2024-09-04 08:34 | XMS_ITS | Encounter Summary ---
Author Organization [facility] Address [address] [facility] [place] [address] Care Team Providers Care Director Sterile Processing Name Role Phone Kira Heredia MD Unavailable [phone] Unallocated, Noms Provider Primary Care Provi radha Loco Castellanos DO Unavailable [phone] Encounter Details Date Type Department Care Team (Late Contact Info) Description 08/31/2024 Orders Only [facility] [address] [facility] [address] [place] [address] Kira Heredia MD [address] [place], [place] [id number] Social History Tobacco Use Types Packs/Day Years Used Date Smoking Tobacco: Never Smokeless Tobacco: Current Chew Alcohol Use Standard Drinks/Week Comments Yes 0 (1 standard drink = 0.6 oz pur e alcohol) Sex and Gender Information Value Date Recorded Sex Assigned at Not on file Legal Sex Male 4:45 PM EST Gender Identity Not on file Sexual Orientation Not on file documented as of this encounter Plan of Treatment Upcoming Encounters Date Type Department Care Team (Late st Contact Info) Description 11/19/2024 8:20 AM EDT Office Visit [facility] [address] [place] [address] Sofie Weller NP [address] [place] [address] documented as of this encounter Procedures Procedure Name Priority Date/Time Associated Diagnosis Comments MRI HAND RIGHT W WO CONTRAST Routine 08/31/2024 1:17 PM EDT documented in this encounter Results * MRI HAND RIGHT W WO CONTRAST (08/31/2024 1:17 PM EDT) Anatomical Region Laterality Modality Radiographic Amy ging us Kira Heredia MD IMG XR PROCEDURES Final Result documented in this encounter Visit Diagnoses Not on filedocumented in this encounter Care Teams Director Sterile Processing Relationship Specialty Start Date End Date Unallocated, Noms Provider, [address] [place] [id number] PCP - General Family Medicine 04/19/24 Kira Heredia MD [address] [place] [id number] Referring Physician Family Medicine 04/19/24 Loco Castellanos DO [address] [address] Referring Physician Neurology 05/17/24 documented as of this encounter
--- OUTSIDE RECORDS SUMMARY | 2024-09-04 08:34 | XMS_ITS | Patient Health Record ---
Author Organization [facility] Address [address] [place] [address] Care Team Providers Care Production Operations Manager Name Role Phone CartagenaJohn valencia Unavailable [phone] Kira Heredia Unavailable Unavailable EduardoSethZita Unavailable [phone] Allergies No Known Allergies Results Component Value Reference Range Notes SCC- OT EVAL AND TREAT 3X/WE EK FOR 6 WEEKS Reviewed date:05/16/2024 09:41:33 AM Interpretation: Performing Lab: Notes/Report: RHEUMATOID FACTOR Reviewed date:06/19/2024 09:54:48 AM Interpretation: Performing Lab: Notes/Report: HLA B27 Reviewed date:06/19/2024 09:54:38 AM Interpretation: Performing Lab: Notes/Report: CRP Reviewed date:06/19/2024 09:55:08 AM Interpretation: Performing Lab: Notes/Report: ESR Reviewed date:06/19/2024 09:55:19 AM Interpretation: Performing Lab: Notes/Report: MARY Reviewed date:06/19/2024 09:54:59 AM Interpretation: Performing Lab: Notes/Report: MRI : Hand W/O Contrast [facility] t - [id number] Reviewed date:08/29/2024 09:42:38 AM Interpretation: Performing Lab: Notes/Report: Reason For Referral Reason APPROVED.........PLE ASE OBTAIN AUTHORIZATION FOR MRI RIGHT HAND Diagnosis 1 Swelling of right bonds nd (M79.89) Referral Organization [facility] Referring Provider First Name John Referring Provider Last Name Cartagena Referring Provider Speciality Orthopedic Surgery Referred Organization [facility] molly Referred Address [place], [place], Procedure 1 MRI Upper Ext NON-Cindy int w/o Dye ([id number]) General Notes Marie Morris 025 02:49:42 PM >NEED DICTATION, Marie Morris 05/28/2024 02:52:50 PM >PENDING SANDOR SCOTT # [id number] CLINICAL ATTACHED.............NEED DICTATION TO UPLOADSukhjinder Kimberly 05/28/2024 03:23:43 PM >Printed for Brooklyn Ahumada Monica 05/29/2024 12:14:20 PM >DONEAlexandra Amy 05/29/2024 12:32:29 PM >CLINICAL UPLOADED, Marie Morris 05/30/2024 07:51:05 AM >STILL PENDINGAlexandra Amy 05/31/2024 07:20:27 AM >APPROVED PER SANDOR AYON #[id number] VALID 05/28/2024-08/26/2024 COPY IN CHART MA NOTIFIED REF FAXED TO Sukhjinder LARA Kimberly 05/31/2024 07:55:56 AM > Faxed order to Fabian Referral Priority Routine Medications Medication SIG (Take, Route, Fr equency, Duration) Notes Start Date End Date Status levothyroxine Active FLUoxetine Active Medrol Dosepak 4 mg as directed 05/28/2024 Active Mobic 15 mg 1 tab(s) orally once a day for 45 days 05/14/2024 Active Vascepa Active Vitamin D3 Active Social History Tobacco Use: Social History [...] Problem Status W/U Status Risk Notes Problem [id number] Swelling of right hand (M79.89) Active confirmed Problem Fall, initial encounter (W19.XXXA) Active confirmed Vital Signs Height 5'5 in 05/14/2024 Weight 230 lbs 05/14/2024 BMI 38.27 05/14/2024 Encounters Encounter Location Date Provider Diagnosis [facility] [address] [place] [address] 05/14/2024 John Cartagena Other bursitis of knee, left knee M70.52 ; Stiffness of right hand joint M25.641 and Swelling of right hand M79.89 [facility] [address] [place] [address] 05/28/2024 [place] [place] Swelling of right hand M79.89 and Fall, initial encounter W19.XXXA [facility] [address] [place] [address] 05/25/2024 John Cartagena Assessments Encounter Date Diagnosis (ICD Code) Assessment Notes Treatment Notes Treatment Clinical Notes Section Notes 05/14/2024 Stiffness of right hand joint (ICD-10 - M25.641) 05/14/2024 Other bursitis of knee, left knee (ICD-10 - M70.52) 05/28/2024 Swelling of right hand (ICD-10 - M79.89) Right hand pain and swelling after fall 05/28/2024 Fall, initial encounter (ICD-10 - W19.XXXA) Right hand pain and swelling after fall 05/14/2024 Swelling of right hand (ICD-10 - [...] month to reassess his progress. Import medication 05/28/2024 Other Today I reviewe d patient's [...] and swelling after fall Plan Of Treatment No Information Insurance Providers Payer Name Payer Address Payer Phone Subscriber Number Group Number Insured Name Patient Relationship to Insured Coverage Start Date Coverage End Date [employer] [address] [address] [place] [address] [id number] TATE ENCARNACION Self - patient is the insured Medical (General) History Medical History History ICD Code Hypothyroidism GI Problems: Depression Sleep apnea CPAP Machine: Yes
--- OUTSIDE RECORDS SUMMARY | 2024-09-04 08:35 | XMS_ITS | Patient Health Record ---
Author Organization The [facility] in [place] Address [address] [place] [address] Care Team Providers Care Surveyor Helper Rod Name Role Phone Kira Garrison Primary Care Provider Reid Meyer Ada [phone] Allergies No Known Allergies Results Component Value Reference Range Notes LAB TESTING Reviewed date:04/30/2024 03:58:21 PM Interpretation: Performing Lab: Notes/Report: [id number] METABOLIC PANEL 14, COMPREHENSIVE [facility] , Miscellaneous Test SEE SCANN ED REPORT Performing Lab: see note LC - [facility] LB Occult Blood* Reviewed date:04/19/2024 12:06:25 PM Interpretation: Performing Lab: Notes/Report: [facility] , Occult Blood Negative Performing Lab: see note - [facility] LB MARY by IFA Reviewed date:05/22/2024 08:17:18 AM Interpretation: Performing Lab: Notes/Report: [facility] , Antinuclear Antibodies, IFA Negative . International Consensus on Antinuclear Antibody (MARY) Borderline 1:80 Negative <1:[address] [place] [address] [id number] Patterns (ICAP). ANApatterns.org, the official website for the For more information about Hep-2 cell patterns use Positive >1:80 Document Preparer Microfilming: Atul Reid PhD, Phone: [phone] Performed at: [facility] nomenclature: AC-0 Performing Lab: see note LC - [facility] LB CBC AUTO DIFF Reviewed date:05/22/2024 08:17:45 AM Interpretation: Performing Lab: Notes/Report: [facility] , White Blood Count 5.8 4.0-11.0 10 [...] 10 3/uL Performing Lab: see note - [facility] LB RHEUMATOID FACTOR Reviewed date:05/22/2024 08:17:45 AM Interpretation: Performing Lab: Notes/Report: [facility] , Rheumatoid Factor (RF) 13.8 <14.0 IU/mL Document Preparer Microfilming: Atul Reid PhD, Phone: [phone] [address] [place], [place] [phone] Performed at: [facility] Performing Lab: see [facility] - [facility] HLA B 27 Disease Association Reviewed date:05/22/2024 08:17:45 AM Interpretation: Performing Lab: Notes/Report: [facility] , HLA B 27 Disease Association Negative . Document Preparer Microfilming: Elizabeth Quevedo PhD, Phone: [phone] by the Food and Drug Administration. The FDA has determined that such clearance or approval is supplemental method when necessary. technique. Sequence Based Typing (SBT) may be used as a This test was developed and its performance characteristics This test was performed using Polymerase Chain Reaction (PCR) and Sequence Specific Oligonucleotide Probes (SSOP) determined by [facility]. It has not been cleared or approved [address] [place], [place] [id number] Performed at: [address] [place] [address] DNA not necessary. B27 allele interpretation for all loci based on IMGT/HLA database version 3.51.0 If you have questions, please call HLA customer service HLA Lab CLIA ID Number [id number] at or email at [email or web address]. HLA-B*27 Negative Performing Lab: see note - [facility] LB FREE T3 Reviewed date:06/06/2024 09:35:27 AM Interpretation: Performing Lab: Notes/Report: [facility] , Free T3 1.80 2.18-3.98 pg/mL Performing Lab: see note ML - [facility] LB LIPID PROFILE Reviewed date:06/06/2024 09:35:27 AM Interpretation: Performing Lab: Notes/Report: [facility] , Triglycerides 1473 <=150 mg/dL Cholesterol 245 <=200 mg/dL HDL Cholesterol 36 40-60 mg/dL > or =60 mg/dl - LOW CARDIOVASCULAR RISK <40 mg/dl - HIGH CARDIOVASCULAR RISK VLDL CHOLESTEROL 294.6 Chol HDL Ratio 6.8 4.4 - 7.1 AVERAGE RISK 7.1 - 11.0 MODERATE RISK >11.0 HIGH RISK 3.3 - 4.4 LOW RISK Performing Lab: see note ML - [facility] LB T4 Reviewed date:06/06/2024 09:35:27 AM Interpretation: Performing Lab: Notes/Report: [facility] , T4 Thyroxine 0.90 4.50-12.10 ug/dL Performing Lab: see note ML - [facility] LB TSH Reviewed date:06/06/2024 09:35:27 AM Interpretation: Performing Lab: Notes/Report: [facility] , Thyroid Stimulating Hormone 46.230 0.358-3.740 uIU/mL Performing Lab: see note ML - [facility] LB CBC AUTO DIFF Reviewed date:08/13/2024 11:42:12 AM Interpretation: Performing Lab: Notes/Report: [facility] , White Blood Count 4.7 4.0-11.0 10 [...] Performing Lab: see note ML - [facility] LB MR hand RT wo con Reviewed date:08/31/2024 11:57:15 AM Interpretation: Performing Lab: Notes/Report: Source Facility: [facility] [place] [address] [place] [address] Magnetic Resonance Report Signed Patient: KODY ENCARNACION MR#: [id number] : 1970 Acct:[id number] Age/Sex: 53 / M ADM Date: 08/31/24 Loc: MRI Attending Dr: KIRA GARRISON Ordering Physician: KIRA GARRISON Date of Service: 08/31/24 Procedure(s): MR hand RT wo con Accession Number(s): [id number] cc: KIRA GARRISON [place] [address] Patient Name: KODY ENCARNACION MRN: [id number] date: 1970 Sex: M Assigned Patient Location: MRI Current Patient Location: MRI Accession/Order Number: [id number] Exam Date: 08/31/2024 11:25 Report Date: 08/31/2024 11:33 At the request of: KIRA GARRISON Procedure: MR hand RT wo con MR hand RT wo con 08/31/2024 9:22 AM SIGNS AND SYMPTOMS: Chronic right hand pain after fall PROTOCOL: Multiplanar multisequence MR images of the right hand without IV contrast COMPARISON: 04/17/2024 FINDINGS: Subcutaneous soft tissue tissues: There is mild nonspecific soft tissue swelling diffusely. No mass. Intrinsic muscles: Within normal limits. Tendons: Intact and normal in signal. Bones: There is normal marrow signal throughout. No evidence of marrow edema to suggest acute or healing fracture. Joint spaces: There is narrowing of the distal interphalangeal joints throughout. There is subcortical cystic change in the third metacarpophalangeal joint involving the head of the third metacarpal. Neurovascular bundle: The neurovascular bundles are intact. MR/MR hand RT wo con IMPRESSION: Degenerative changes are noted in the distal interphalangeal joints and third metacarpophalangeal joint space as above. This is similar to the prior radiograph. Mild nonspecific soft tissue swelling is noted involving the subcutaneous soft tissues. The bones are within normal limits with no evidence of acute or healing fracture. No significant bone marrow edema. Impression dictated by: Ken Xie M.D. 08/31/2024 11:33 AM Dictation Location: [place] [address] Electronically authenticated by: [id number] Y Date: 08/31/2024 11:33 Dictated By: Ken Xie M.D. Signed By: 08/31/24 1135 DD/ 1133 TD/TT: Inside Contractor Sales: [address] [address] Magnetic Resonance Report Signed Patient: ANNETTE ENCARNACION MR#: [id number] : 1970 Acct:[id number] Age/Sex: 53 / M ADM Date: 08/31/24 Loc: MRI Attending Dr: KIRA GARRISON Ordering Physician: KIRA GARRISON Date of Service: 08/31/24 Procedure(s): MR angela d RT wo con Accession Number(s): [id number] cc: KIRA GARRISON [place] [id number] Patient Name: KODY ENCARNACION MRN: [id number] date: 1970 Sex: M Assigned Patient Location: MRI Current Patient Loca tion: MRI Accession/Order Numb er: [id number] Exam Date: 08/31/2024 11:25 Report Date: 08/31/2024 11:33 At the request of: KIRA GARRISON Procedure: MR hand R T wo con MR hand RT wo con 08/31/2024 9:22 AM SIGNS AND SYMPTOMS: Chronic right hand pain after fall PROTOCOL: Multiplana r multisequence MR images of the right hand without IV contrast COMPARISON: 04/17/2024 FINDINGS: Subcutaneous soft ti ssue tissues: There is mild nonspecific soft tissue swelling diffusely. No mass. Intrinsic muscles: W ithin normal limits. Tendons: Intact and normal in signal. Bones: There is norm al marrow signal throughout. No evidence of marrow edema to suggest acute or healing fracture. Joint spaces: There is narrowing of the distal interphalangeal joints throughout. There is subcortical cystic change in the third metacarpophalangeal joint involving the head of the third metacarpal. Neurovascular bundle : The neurovascular bundles are intact. M R/MR hand RT wo con IMPRESSION: Degenerative changes are noted in the distal interphalangeal joints and third metacarpophalangeal joint space as above. This is similar to the prior radiograph. Mild nonspecific sof t tissue swelling is noted involving the subcutaneous soft tissues. The bones are within normal limits with no evidence of acute or healing fracture. No signifi cant bone marrow edema. Impression dictated by: Ken Xie M.D. 08/31/2024 11:33 AM Dictation Location: [place] [address] Electronically authenticated by: [id number] Y Date: 08/31/2024 11:33 Dictated By: Ken Xie M.D. Signed By: 08/31/24 1135 DD/ 1133 TD/TT: Inside Contractor Sales: DIRECT LDL Reviewed date:06/06/2024 09:35:27 AM Interpretation: Performing Lab: Notes/Report: [facility] , LDL Cholesterol Direct 49 <100 mg/dl OPTIMAL 100-129 mg/dl NEAR OR ABOVE OPTIMAL 160-189 mg/dl HIGH >190 mg/dl VERY HIGH 130-159 mg/dl BORDERLINE HIGH Performing Lab: see note ML - [facility] LB CBC AUTO DIFF Reviewed date:06/06/2024 09:35:27 AM Interpretation: Performing Lab: Notes/Report: [facility] , White Blood Count 7.2 4.0-11.0 10 [...] 3/uL Performing Lab: see note ML - [facility] Erythrocyte Sedimentation Ra te Reviewed date:05/22/2024 08:17:45 AM Interpretation: Performing Lab: Notes/Report: [facility] , Erythrocyte Sedimentation Rate 16 <=20 mm/hr Performing Lab: see note ML - [facility] PROF CHEM 8 (BAS METB) Reviewed date:05/22/2024 08:17:45 AM Interpretation: Performing Lab: Notes/Report: [facility] , Sodium 138 136-145 mmol/L Potassium 4.3 [...] mg/dL Performing Lab: see note ML - [facility] CRP Reviewed date:05/22/2024 08:17:45 AM Interpretation: Performing Lab: Notes/Report: [facility] , C Reactive Protein <0.50 <=0.50 mg/dL Performing Lab: see note ML - [facility] MR head/brain wo con Reviewed date:05/11/2024 12:35:06 PM Interpretation: Performing Lab: Notes/Report: Source Facility: [facility]-[address] [place] [address] [place] [address] Magnetic Resonance Report Signed Patient: KODY ENCARNACION MR#: [id number] : 1970 Acct:[id number] Age/Sex: 53 / M ADM Date: 05/08/24 Loc: MRI Attending Dr: KIRA GARRISON Ordering Physician: KIRA GARRISON Date of Service: 05/08/24 Procedure(s): MR head/brain wo con Accession Number(s): [id number] cc: KIRA GARRISON [place] [id number] Patient Name: KODY ENCARNACION MRN: [id number] date: 1970 Sex: M Assigned Patient Location: MRI Current Patient Location: MRI Accession/Order Number: [id number] Exam Date: 05/08/2024 09:00 Report Date: 05/08/2024 [...] Signed By: 05/08/24 1302 DD/ 1259 TD/TT: Inside Contractor Sales: [place] [address] Magnetic Resonance Report Signed Patient: ANNETTE ENCARNACION MR#: [id number] : 1970 Acct:[id number] Age/Sex: 53 / M ADM Date: 05/08/24 Loc: MRI Attending Dr: KIRA GARRISON Ordering Physician: KIRA GARRISON Date of Service: 05/08/24 Procedure(s): MR head/brain wo con Accession Number(s): [id number] cc: KIRA GARRISON [place] [address] Patient Name: KODY ENCARNACION MRN: [id number] date: 1970 Sex: M Assigned Patient Location: MRI Current Patient Loca tion: MRI Accession/Order Numb er: [id number] Exam Date: 05/08/2024 09:00 Report Date: 05/08/2024 [...] Signed By: 05/08/24 1302 DD/ 1259 TD/TT: Inside Contractor Sales: Vitamin B12 Reviewed date:04/18/2024 09:12:24 AM Interpretation: Performing Lab: Notes/Report: [facility] , Vitamin B12 676 600-9272 pg/mL Performed at: - [facility] [address] [id number] Document Preparer Microfilming: Atul Reid PhD, Phone: [phone] Performing Lab: see note - [facility] LB VITAMIN D 25 [place] Reviewed date:04/17/2024 12:59:36 PM Interpretation: Performing Lab: Notes/Report: [facility] , Vitamin D 21.6 30-100 ng/mL Vit D sufficient <20 ng/mL Vit D deficient >100 ng/mL Potential Toxicity 20-<30 ng/mL Vit D insufficient Performing Lab: see note ML - [facility] LB TSH Reviewed date:04/17/2024 12:59:36 PM Interpretation: Performing Lab: Notes/Report: [facility] , Thyroid Stimulating Hormone 27.573 0.358-3.740 uIU/mL Performing Lab: see note ML - [facility] LB T4 Reviewed date:04/17/2024 12:59:36 PM Interpretation: Performing Lab: Notes/Report: [facility] , T4 Thyroxine 4.30 4.50-12.10 ug/dL Performing Lab: see note ML - [facility] PSA SCREENING Reviewed date:04/17/2024 12:59:36 PM Interpretation: Performing Lab: Notes/Report: [facility] , Prostate Specific Antigen Scrn 0.22 <=4.00 ng/mL Performing Lab: see note ML - [facility] LB LIPID PROFILE Reviewed date:04/17/2024 12:59:36 PM Interpretation: Performing Lab: Notes/Report: [facility] , Triglycerides 3317 <=150 mg/dL Cholesterol 301 <=200 mg/dL HDL Cholesterol 27 40-60 mg/dL > or =60 mg/dl - LOW CARDIOVASCULAR RISK <40 mg/dl - HIGH CARDIOVASCULAR RISK VLDL CHOLESTEROL 663.4 Chol HDL Ratio 11.1 >11.0 HIGH RISK 3.3 - 4.4 LOW RISK 7.1 - 11.0 MODERATE RISK 4.4 - 7.1 AVERAGE RISK Performing Lab: see note ML - [facility] LB LAB TESTING Reviewed date:04/18/2024 09:12:23 AM Interpretation: Performing Lab: Notes/Report: [id number] URIC ACID [facility] , Miscellaneous Test COMMENT . Uric Acid 8.2 mg/dL CB Performed at: CB - [facility] [place] Therapeutic target for gout patients: <6.0 Test Ordered: [id number] Uric Acid Document Preparer Microfilming: Atul Reid PhD, Phone: [phone] [address] [place], [place] [phone] Reference Range: 3.8-8.4 Performing Lab: see note LC - [facility] LB INSULIN Reviewed date:04/18/2024 09:12:23 AM Interpretation: Performing Lab: Notes/Report: [facility] , Insulin 15.6 2.6-24.9 uIU/mL Performed at: [facility] Document Preparer Microfilming: Atul Reid PhD, Phone: [phone] [address] [place], [place] [phone] Performing Lab: see note - [facility] LB GLYCOHEMOGLOBIN A1C Reviewed date:04/17/2024 12:59:36 PM Interpretation: Performing Lab: Notes/Report: [facility] , Glycohemoglobin A1C 6.1 4.5-6.2 % > 7.0 ADA THERAPEUTIC TARGET < 7.0 ADA RECOMMENDED LIMIT 4.0 - 6.0 ACTION SUGGESTED Estimated Average Glucose 128 Performing Lab: see note ML - [facility] LB FREE T3 Reviewed date:04/17/2024 12:59:36 PM Interpretation: Performing Lab: Notes/Report: [facility] , Free T3 2.15 2.18-3.98 pg/mL Performing Lab: see note ML - [facility] LB DIRECT LDL Reviewed date:04/17/2024 12:59:36 PM Interpretation: Performing Lab: Notes/Report: [facility] , LDL Cholesterol Direct 49 <100 mg/dl OPTIMAL 100-129 mg/dl NEAR OR ABOVE OPTIMAL 160-189 mg/dl HIGH 130-159 mg/dl BORDERLINE HIGH >190 mg/dl VERY HIGH Performing Lab: see note ML - [facility] LB CBC AUTO DIFF Reviewed date:04/17/2024 12:59:36 PM Interpretation: Performing Lab: Notes/Report: [facility] , White Blood Count 5.8 4.0-11.0 10 [...] 3/uL Performing Lab: see note ML - [facility] XR KNEE LT 3V Reviewed date:04/17/2024 04:05:58 PM Interpretation: Performing Lab: Notes/Report: Source Facility: [place] [address] XRay Report Signed Patient: KODY ENCARNACION MR#: [id number] : 1970 Acct:[id number] Age/Sex: 53 / M ADM Date: 04/17/24 Loc: LAB Attending Dr: KIRA GARRISON Ordering Physician: KIRA GARRISON Date of Service: 04/17/24 Procedure(s): XR knee LT 3V Accession Number(s): [id number] cc: KIRA GARRISON [place] [address] Patient Name: KODY ENCARNACION MRN: [id number] date: 1970 Sex: M Assigned Patient Location: LAB Current Patient Location: LAB Accession/Order Number: [id number] Exam Date: 04/17/2024 10:25 Report Date: 04/17/2024 [...] Signed By: 04/17/24 1535 DD/ 153 TD/TT: Inside [employer]or Sales: [place] [address] XRay Report Signed Patient: ANNETTE ENCARNACION MR#: [id number] : 1970 Acct:[id number] Age/Sex: 53 / M ADM Date: 04/17/24 Loc: LAB Attending Dr: KIRA GARRISON Ordering Physician: KIRA GARRISON Date of Service: 04/17/24 Procedure(s): XR kne e LT 3V Accession Number(s): [id number] cc: KIRA GARRISON [place] [id number] Patient Name: KODY ENCARNACION MRN: [id number] date: 1970 Sex: M Assigned Patient Location: LAB Current Patient Loca tion: LAB Accession/Order Numb er: [id number] Exam Date: 04/17/2024 10:25 Report Date: 04/17/2024 [...] Signed By: 04/17/24 1535 DD/ 1532 TD/TT: Inside Contractor Sales: XR HAND RT MIN 3V Reviewed date:04/17/2024 04:06:04 PM Interpretation: Performing Lab: Notes/Report: Source Facility: [place] [address] XRay Report Signed Patient: KODY ENCARNACION MR#: [id number] : 1970 Acct:[id number] Age/Sex: 53 / M ADM Date: 04/17/24 Loc: LAB Attending Dr: KIRA GARRISON Ordering Physician: KIRA GARRISON Date of Service: 04/17/24 Procedure(s): XR hand RT min 3V Accession Number(s): [id number] cc: KIRA GARRISON [place] [address] Patient Name: KODY ENCARNACION MRN: [id number] date: 1970 Sex: M Assigned Patient Location: LAB Current Patient Location: LAB Accession/Order Number: [id number] Exam Date: 04/17/2024 10:25 Report Date: 04/17/2024 [...] M.D. Signed By: 04/17/241534 DD/ 31 TD/TT: Inside Contractor Sales: [place] [address] XRay Report Signed Patient: ANNETTE ENCARNACION MR#: [id number] : 1970 Acct:[id number] Age/Sex: 53 / M ADM Date: 04/17/24 Loc: LAB Attending Dr: KIRA GARRISON Ordering Physician: KIRA GARRISON Date of Service: 04/17/24 Procedure(s): XR miller d RT min 3V Accession Number(s): [id number] cc: KIRA GARRISON [place] [id number] Patient Name: KODY ENCARNACION MRN: [id number] date: 1970 Sex: M Assigned Patient Location: LAB Current Patient Loca tion: LAB Accession/Order Numb er: [id number] Exam Date: 04/17/2024 10:25 Report Date: 04/17/2024 [...] Dictated By: Mikey Irving M.D. Signed By: 04/17/245 DD/ 31 TD/TT: Inside Contractor Sales: IRON Reviewed date:04/17/2024 12:59:36 PM Interpretation: Performing Lab: Notes/Report: [facility] , Iron 129.0 65.0-175.0 ug/dL Performing Lab: see note ML - [facility] LB Testosterone Reviewed date:08/13/2024 11:42:12 AM Interpretation: Performing Lab: Notes/Report: [facility] , Testosterone 168 264-916 ng/dL [id number]. Adult male reference interval is based on a population of healthy nonobese males (BMI <30) between 19 and 39 years Document Preparer Microfilming: Atul Reid PhD, Phone: [phone] [address] [place], [place] [phone] [facility]. gus Levy.al. JCEM 2017,102;6785-5693. PMID: Performed at: - [facility] [place] Performing Lab: see note - [facility] LB TSH Reviewed date:08/13/2024 11:42:12 AM Interpretation: Performing Lab: Notes/Report: [facility] , Thyroid Stimulating Hormone 24.729 0.358-3.740 uIU/mL Performing Lab: see note ML - [facility] LB T4 Reviewed date:08/13/2024 11:42:12 AM Interpretation: Performing Lab: Notes/Report: [facility] , T4 Thyroxine 3.10 4.50-12.10 ug/dL Performing Lab: see note ML - [facility] LB PSA SCREENING Reviewed date:08/13/2024 11:42:12 AM Interpretation: Performing Lab: Notes/Report: [facility] , Prostate Specific Antigen Scrn 0.44 <=4.00 ng/mL Performing Lab: see note ML - [facility] LB LIPID PROFILE Reviewed date:08/13/2024 11:42:12 AM Interpretation: Performing Lab: Notes/Report: [facility] , Triglycerides 1318 <=150 mg/dL Cholesterol 215 <=200 mg/dL HDL Cholesterol 37 40-60 mg/dL <40 mg/dl - HIGH CARDIOVASCULAR RISK > or =60 mg/dl - LOW CARDIOVASCULAR RISK VLDL CHOLESTEROL 263.6 Chol HDL Ratio 5.8 4.4 - 7.1 AVERAGE RISK >11.0 HIGH RISK 3.3 - 4.4 LOW RISK 7.1 - 11.0 MODERATE RISK Performing Lab: see note - [facility] LB FREE T3 Reviewed date:08/13/2024 11:42:12 AM Interpretation: Performing Lab: Notes/Report: [facility] , Free T3 2.47 2.18-3.98 pg/mL Performing Lab: see note - [facility] LB DIRECT LDL Reviewed date:08/13/2024 11:42:12 AM Interpretation: Performing Lab: Notes/Report: [facility] , LDL Cholesterol Direct 50 <100 mg/dl OPTIMAL 130-159 mg/dl BORDERLINE HIGH >190 mg/dl VERY HIGH 100-129 mg/dl NEAR OR ABOVE OPTIMAL 160-189 mg/dl HIGH Performing Lab: see note ML - [facility] LB Reason For Referral Reason headache for 6 month s Diagnosis 1 Migraine (G43.909) Referral Organization [facility] Referring Provider First Name Kira Referring Provider Last Name Yan Referring Provider [facility] icine Referred Provider Kenzie Null Referred Provider Specialty Neurology Referral Priority Routine Reason IBS Diagnosis 1 Irritable bowel (K58 .9) Referral Organization [facility] Referring Provider First Name Kira Referring Provider Last Name Yan Referring Provider [facility] icine Referred Provider Cristobal Moncada Referred Provider Specialty Gastroentero logy Referral Priority Routine Diagnosis 1 Irritable bowel (K58 .9) Referral Organization [facility] Referring Provider First Name Kira Referring Provider Last Name Yan Referring Provider [facility] Med icine Referred Provider Alejandra Hayden Referred Provider Specialty Gastroentero logy Referral Priority Routine Diagnosis 1 Left knee pain (M25. 562) Referral Organization [facility] Referring Provider First Name Kira Referring Provider Last Name Yan Referring Provider [facility] icine Referred Provider John Cartagena Referred Provider Specialty Orthopedic S urgery Referral Priority Routine Diagnosis 1 Polyarticular osteoa rthritis (M15.9) Referral Organization [facility] Referring Provider First Name Kira Referring Provider Last Name Yan Referring Provider Speciality [facility] tam Referred Provider Abdi Duke Referred Provider Specialty Rheumatology Referral Priority Routine Diagnosis 1 Hand pain (M79.643) Referral Organization [facility] Referring Provider First Name Kira Referring Provider Last Name Yan Referring Provider Speciality [facility] tam Referred Provider Jose Pfeiffer) Referred Provider Specialty Orthopedic S urgery General Notes DonaldLynneTaylor 2024 08:40:44 AM >Second Opinion Referral Priority Routine Medications Medication SIG (Take, Route, Frequency, Duration) Notes Start Date End Date Status Vascepa 1 GM 2 capsules with meal s Orally Twice a day for 30 days 04/20/2024 Active Testosterone Cypionate 200 MG/ML 1 mL Intramuscular every other week for 28 days 08/21/2024 Active Zenpep 47736-50560 UNIT as directed Orally Active Vitamin D3 Super Strength 50 MCG (2000 UT) 1 capsule Orally Once a day [...] Oil 1000 MG TAKE 1 CAPSULE BY OK UT THREE TIMES DAILY FOR 30 DAYS for [...] Status W/U Status Risk Notes Problem Hypothyroidism (31313339) Hypothyroidism (E03.9) Active confirmed Problem Sleep apnea (28121216) Sleep apnea (G47.30) Active confirmed Problem Vitamin D deficiency (82134024) Vitamin D deficiency (E55.9) Active confirmed Problem Migraine (66391032) Migraine (G43.909) Active c onfirmed Problem Hypertriglyceridemia (825327461) Hypertriglyceridemia (E78.1) Active confirmed Problem Low testosterone (045159766) Low testosterone (E29.1) Active confirmed Problem Neuralgia (17780378) Neuralgia (M79.2) Active c onfirmed Problem Irritable bowel (05417550) Irritable bowel (K58.9) Active confirmed Problem Polyarticular osteoarthritis (506541904) Polyarticular osteoarthritis (M15.9) Active confirmed Vital Signs [...] N/A Encounters Encounter Location Date Provider Diagnosis [facility] [address] [place] [address] 06/28/2024 Reid Greeny Low testosterone E29 .1 [facility] [address] [place] [address] 07/12/2024 Reid Greeny Low testosterone E29 .1 [facility] [address] [place] [address] 07/24/2024 Kira Garrison Low testosterone E29 .1 [facility] [address] [place] [address] 08/16/2024 Kira Garrison Low testosterone E29 .1 [facility] [address] [place] [address] 08/30/2024 Kira Garrison Low testosterone E29 .1 [facility] [address] [place] [address] 04/17/2024 Kira Garrison Wellness examination Z00.00 ; Migraine G43.909 ; Right hand pain M79.641 ; Left knee pain M25.562 ; Irritable bowel K58.9 and Depression F32.A [facility] [address] [place] [address] 04/20/2024 Kira Garrison Right hand pain M79. 641 ; Hypertriglyceridemia E78.1 ; Left knee pain M25.562 ; Hypothyroidism E03.9 and Vitamin D deficiency E55.9 [facility] [address] [place] [address] 06/13/2024 Kira Garrison Fatigue R53.83 ; Low testosterone E29.1 ; Sleep apnea G47.30 and Hypothyroidism E03.9 [facility] [address] [place] [address] 08/27/2024 Kira Garrison Intermittent chest p ain R07.9 ; Fatigue R53.83 and Right hand pain M79.641 [facility] [address] [place] [address] 08/31/2024 Kira Garrison [facility] [address] [place] [address] 06/28/2024 Kira Garrison [facility] [address] [place] [address] 07/24/2024 Kira Garrison [facility] [address] [facility] [address] 08/06/2024 Reid Meyer Low testosterone E29 .1 [facility] [address] [place] [address] 08/09/2024 Kira Garrison Low testosterone E29 .1 [facility] [address] [place] [address] 08/21/2024 Kira Garrison Hypothyroidism E03.9 and Low testosterone E29.1 [place] [address] [facility] [place] [address] 08/27/2024 Kira Garrison Hand pain M79.643 [facility] [address] [facility] [place] [address] 06/04/2024 Kira Garrison Wellness examination Z00.00 and Hypothyroidism E03.9 [facility] [address] [facility] [place] [address] 06/06/2024 Kira Garrison Hypothyroidism E03.9 and Hypertriglyceridemia E78.1 [facility] [address] [place] [address] 06/08/2024 Kira Garrison Hypertriglyceridemia E78.1 [facility] [address] [facility] [place] [address] 06/12/2024 Reid Hoy [facility] [address] [facility] [place] [address] 06/13/2024 Kira Garrison [facility] [address] [facility] [place] [address] 06/18/2024 Kira Garrison Fatigue R53.83 and L ow testosterone E29.1 [facility] [address] [facility] [place] [address] 11/04/2023 Kira Garrison [facility] [address] [facility] [place] [address] 04/18/2024 Kira Garrison Irritable bowel K58. 9 [facility] [address] [facility] [place] [address] 04/19/2024 Kira Garrison [facility] [address] [facility] [place] [address] 04/23/2024 Kira Garrison [facility] [address] [facility] [place] [address] 04/30/2024 Kira Garrison Left knee pain M25.5 62 and Polyarticular osteoarthritis M15.9 [facility] [address] [facility] [place] [address] 05/11/2024 Kira Garrison Assessments Encounter Date Diagnosis (ICD Code) Assessment Notes Treatment Notes Treatment Clinical Notes Section Notes 04/17/2024 Migraine (ICD-10 - G43.909) 04/17/2024 Wellness examination (ICD-10 - Z00.00) ROS done exam done 04/20/2024 Hypertriglyceridemia (ICD-10 - E78.1) recheck trigs month or two discussed healthy lifestyle changes needed pt agrees to work on diet , wt, sugar and alcohol intake add fibrate next? 04/20/2024 Right hand pain (ICD -10 - M79.641) discussed PT, rheum referral notify office if wants 06/13/2024 Fatigue (ICD-10 - R53.83) due to sleep apnea? low T? hypothyroid? some SOB with exertion can sleep 16 hours at time patient states 06/28/2024 Low testosterone (ICD-10 - E29.1) 07/12/2024 Low testosterone (ICD-10 - E29.1) 07/24/2024 Low testosterone (ICD-10 - E29.1) 08/16/2024 Low testosterone (ICD-10 - E29.1) 08/30/2024 Low testosterone (ICD-10 - E29.1) 08/27/2024 Fatigue (ICD-10 - R53.83) still working on getting testosterone and tsh to normal limits discussed revisiting the cpap, wants to wait check vit D level stress test 08/27/2024 Intermittent chest p ain (ICD-10 - R07.9) 04/18/2024 Irritable bowel (ICD -10 - K58.9) 04/30/2024 Left knee pain (ICD- 10 - M25.562) 04/30/2024 Polyarticular osteoarthritis (ICD-10 - M15.9) 06/04/2024 Wellness examination (ICD-10 - Z00.00) 06/06/2024 Hypothyroidism (ICD- 10 - E03.9) 06/06/2024 Hypertriglyceridemia (ICD-10 - E78.1) 06/08/2024 Hypertriglyceridemia (ICD-10 - E78.1) 06/18/2024 Fatigue (ICD-10 - R53.83) 06/18/2024 Low testosterone (ICD-10 - E29.1) 08/06/2024 Low testosterone (ICD-10 - E29.1) 08/09/2024 Low testosterone (ICD-10 - E29.1) 08/21/2024 Hypothyroidism (ICD- 10 - E03.9) 08/27/2024 Hand pain (ICD-10 - M79.643) 06/13/2024 Low testosterone (ICD-10 - E29.1) check for lab results pt states neurology prescribed cream, was 1000$ 04/20/2024 Left knee pain (ICD- 10 - M25.562) discussed ortho referral wants see how goes 08/21/2024 Low testosterone (ICD-10 - E29.1) 06/04/2024 Hypothyroidism (ICD- 10 - E03.9) 08/27/2024 Right hand pain (ICD -10 - M79.641) 04/17/2024 Right hand pain (ICD -10 - M79.641) 04/17/2024 Left knee pain (ICD- 10 - M25.562) 04/20/2024 Hypothyroidism (ICD- 10 - E03.9) 06/13/2024 Sleep apnea (ICD-10 - G47.30) has not seen needs to revisit 04/20/2024 Vitamin D deficiency (ICD-10 - E55.9) 06/13/2024 Hypothyroidism (ICD- 10 - E03.9) on increased dose levo recheck labs 04/17/2024 Irritable bowel (ICD -10 - K58.9) 04/17/2024 Depression (ICD-10 - F32.A) 06/13/2024 Other need GI and rheum OV notes Plan Of Treatment Pending Test Test Name Order Date CMP (COMPLETE METABOLIC PANEL) 5 CMP (COMPLETE METABOLIC PANEL) 3 HEMOGLOBIN A1C [...] Name:Kira britton, 09/13/2024 09:00:00 AM, [address] [place], [address], Medications Administered Medication Instructions Date of Administration Dosage Notes Testosterone Cypionate 06/28/2024 0.75 mL Testosterone Cypionate 07/12/2024 0.75 mL Testosterone Cypionate 07/24/2024 0.75 mL Testosterone Cypionate 08/16/2024 0.75 mL Testosterone Cypionate 08/30/2024 0.75 mL
--- OUTSIDE RECORDS SUMMARY | 2024-09-04 08:35 | XMS_ITS | Clinical Summary ---
Author Organization [facility] Address [address] [place] [address] Care Team Providers Care Housing Relocation Name Role Phone Kira Heredia MD Unavailable [phone] Unallocated, Noms Provider Primary Care Provi radha Varun Castellanostitonorman DO Unavailable [phone] Allergies No known active allergies Medications cholecalciferol [...] Encounters Date Type Department Care Team Description 08/31/2024 Orders Only [facility] [address] [place] [address] Kira Heredia MD 06/12/2024 Telephone [facility] [address] [facility] [address] [place] [address] Jazlyn Lemus, OT OT status; fu (DC) from Last 3 [...] 11/19/2024 8:20 AM EDT Office Visit MARY MARCO [address] [place] [address] Sofie Weller NP [address] [place] [address] Health Maintenance Due Date Last Done Comments CT Colonography 1970 Colonoscopy 1970 Colorectal Cancer Screening 1970 FIT-DNA 1970 FIT 1970 FOBT 1970 Sigmoidoscopy 1970 Influenza Vaccine (Season Ended) 2024 Procedures Procedure Name Priority Date/Time Associated Diagnosis Comments MRI HAND RIGHT W WO CONTRAST Routine 08/31/2024 1:17 PM EDT from Last 3 Months Results * MRI HAND RIGHT W WO CONTRAST (08/31/2024 1:17 PM EDT) Anatomical Region Laterality Modality Radiographic Amy ging us Kira Heredia MD IMG XR PROCEDURES Final Result from Last 3 Months Insurance [employer] Care Teams Housing Relocation Relationship Specialty Start Date End Date Unallocated, Noms Provider, [facility] [place] [address] PCP - General Family Medicine 04/19/24 Kira Heredia MD [address] [place] [address] Referring Physician Family Medicine 04/19/24 Loco Castellanos DO [address] [address] Referring Physician Neurology 05/17/24
--- NOTE | 2024-09-04 10:58 | PC.NURSE ---
Nursing Note Cardiac Stress Test Reviewed: Medication, allergies and patient history reviewed. Stress Test: [x ] Patient tolerated stress test well. [ ] Patient unable to tolerate walking on treadmill. Switched to Lexiscan stress test. [x ] No chest pain noted per patient [ ] Chest pain that resolved prior to leaving stress lab. [ ] No dyspnea noted. [ x] Dyspnea that resolved prior to leaving stress lab. [ x] Patient left stress lab asymptomatic and hemodynamically stable. [ ] Patient taken to the Emergency Room due to non-resolving symptoms following stress test. [x ] Patient achieved target heart rate. [ ] Patient unable to achieve target heart rate. [ ] Aminophylline administered as reversal agent to Lexiscan (Regadenoson). [ ] Nitro administered. Nursing Comments:Pt had Cardio Lite test done. No CP noted. Leg pain and SOB noted which pt states is normal for him with activity. Pt left lab with no symptoms to head to the cafeteria for breakfast prior to second set of images.
--- NOTE | 2024-09-06 10:47 | PM.STRESS ---
Stress Test Stress Test Allergies Allergy/AdvReac Type Severity Reaction Status Date / Time No Known Drug Allergies Allergy Verified 03/24/23 10:14 Requesting physician: [facility] Procedure: Treadmill nuclear stress test with Cardiolyte injection General Information: Reason for Stress Test: [Chest pain, shortness of breath] Cardiac History and Risk Factors: [Dyslipidemia] Resting 12 - Lead Electrocardiogram: Sinus bradycardia Otherwise normal ECG Stress Test: Protocol: [Gregory protocol; the patient exercised for 9 minutes and 45 seconds. He reached stage IV of the Gregory protocol achieving 11.10 METS.] Resting heart rate was 57 bpm increasing to a maximum of 144 bpm which is 86% of maximal predicted heart rate. Resting blood pressure was 128/70 increasing to a maximum of 156/88. Reason for termination: Target heart rate achieved, hip pain Heart rate recovery: Normal Exercise Capacity: [Functional capacity: Good] Blood Pressure Response: [Appropriate blood pressure response to exercise] Rhythm: [Sinus rhythm, no significant arrhythmias seen] ST - Response: [No significant ST-T wave changes noted] Patient Response: [No chest pain reported] Interpretation: 1. No ischemic EKG changes seen with treadmill exercise stress test 2. Appropriate heart rate and blood pressure response to exercise 3. Teixeira treadmill score is +9.5. Estimated 1-year mortality: 0.3 to 0.9%. Risk category: Low risk. Angiography: Usually not indicated 4. Nuclear images are to be read, interpreted, and reported separately
== END 2024-09-04 08:30 | disposition home or self-care (01) ==
LOC: NM 08:29
PROVIDERS: PCP Nurse Practitioner Family; Visit Provider Nurse Practitioner Family
DX: R07.9 Chest pain, unspecified (principal)
CPT/HCPCS: 78452; 93017; A9500

== ENCOUNTER 2024-09-10 16:36 | Outpatient (OUT) | payer OTHER, SELFPAY ==
--- OUTSIDE RECORDS SUMMARY | 2024-05-25 07:45 | XMS_ITS ---
Author Organization [facility] Address [address] [place] [address] Care Team Providers Care Candy Maker Helper Name Role Phone John Cartagena Unavailable [phone] Kira Heredia Unavailable Unavailable Encounters Encounter Location Date Provider Diagnosis [facility] [address] [place] [address] 05/25/2024 John Cartagena Plan Of Treatment No Information Progress Notes * TATE ENCARNACIONDOB: 1 (53 yo M)Acc No.[id number]:05/25/2024 Patient: Rafael LANGETATE MCKNIGHT :1970 A ge:53 Y S ex:Male Address:[address] [place] [address], [phone] * true * Date: Generated for Maddyi ng/Fapamelag/eTransmitting on: 0 09/10/2024 04:40 PM EDT
--- OUTSIDE RECORDS SUMMARY | 2024-05-28 05:50 | XMS_ITS ---
Author Organization [facility] Address [address] [place] [address] Care Team Providers Care Utility Bagger Name Role Phone John Cartagena Unavailable [phone] Kira Heredia Unavailable Unavailable Zita Clark Unavailable [phone] Allergies No Known Allergies Results Component Value Reference Range Notes MRI : Hand W/O Contrast [facility] t - [id number] Reviewed date:08/29/2024 09:42:38 AM Interpretation: Performing Lab: Notes/Report: Reason For Referral Reason APPROVED.........PLE ASE OBTAIN AUTHORIZATION FOR MRI RIGHT HAND Diagnosis 1 Swelling of right bonds nd (M79.89) Referral Organization [facility] Referring Provider First Name John Referring Provider Last Name Cartagena Referring Provider Speciality Orthopedic Surgery [facility] Referred Address [place], [place], Procedure 1 MRI Upper Ext NON-Cindy int w/o Dye ([id number]) General Notes Marie Morris 025 02:49:42 PM >NEED DICTATIONAlexandra Amy 05/28/2024 02:52:50 PM >PENDING PATTEN [facility] # [id number] CLINICAL ATTACHED.............NEED DICTATION TO UPLOADSukhjinder Kimberly 05/28/2024 03:23:43 PM >Printed for [place] Ahumada Monica 05/29/2024 12:14:20 PM >DONEAlexandra Amy 05/29/2024 12:32:29 PM >CLINICAL UPLOADEDAlexandra Amy 05/30/2024 07:51:05 AM >STILL PENDING, Marie Morris 05/31/2024 07:20:27 AM >APPROVED PER SANDOR AUTH #[id number] VALID 05/28/2024-08/26/2024 COPY IN CHART MA NOTIFIED [...] Problem Status W/U Status Risk Notes Problem [id number] Swelling of right hand (M79.89) Active confirmed Problem Fall, initial encounter (W19.XXXA) Active confirmed Encounters Encounter Location Date Provider Diagnosis [facility] Office [address] [facility] [place] [address] 05/28/2024 [facility] Swelling of right hand M79.89 and Fall, [...] * TATE ENCARNACIONDOB: 1 (53 yo M)Acc No.[id number]:05/28/2024 Patient: Rafael JESUS TATE Provider: ELYSE Harris :1970 A ge:53 Y S ex:Male Date:05/28/2024 Address:[address] [place], [place] [id number] Subjective: * Chief Complaints: * L EFT [...] 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
--- OUTSIDE RECORDS SUMMARY | 2024-08-31 07:55 | XMS_ITS ---
Author Organization The [facility] in [place] Address [address] [place] [address] Care Team Providers Care Design Maker Name Role Phone Kira Heredia Primary Care Provider [phone] REASON FOR VISIT MRI results Encounters Encounter Location Date Provider Diagnosis [facility] [address] [place] [address] 08/31/2024 Kira Heredia Plan Of Treatment No Information Progress Notes * Kody ENCARNACIONDOB: 1 (53 yo M)Acc No.[id number]:08/31/2024 Patient: Kody PAVON :1970 A ge:53 Y S ex:Male Address:[address], [place] [address] * true * Date: Generated for Printi ng/Faxing/eTransmitting on: 0 09/10/2024 04:40 PM EDT
--- OUTSIDE RECORDS SUMMARY | 2024-09-06 08:54 | XMS_ITS ---
Author Organization [facility] [place] Address [address] [place] [address] Care Team Providers Care Industrial Cleaning Technician Name Role Phone Kira Heredia Primary Care Provider REASON FOR VISIT stress test Encounters Encounter Location Date Provider Diagnosis [facility] [address] [place] [address] 09/06/2024 Kira Heredia Plan Of Treatment No Information Progress Notes * Kody ENCARNACIONDOB: 1 (54 yo M)Acc No.[id number]:09/06/2024 Patient: Kody PAVON :1970 A ge:54 Y S ex:Male Address:[address], [place] [address] * true * Date: Generated for Printi ng/Fapamelag/eTransmitting on: 0 09/10/2024 04:40 PM EDT
--- OUTSIDE RECORDS SUMMARY | 2024-09-10 12:08 | XMS_ITS ---
Author Organization [facility] [place] Address [address] [place] [address] Care Team Providers Care Screen Printing Machine Loader Unloader Name Role Phone Kira Heredia Primary Care Provider [phone] Wilder taking over Testosterone Encounters Encounter Location Date Provider Diagnosis [address] [address] 09/10/2024 Kira Heredia Plan Of Treatment No Information Progress Notes * Kody ENCARNACIONDOB: 1 (54 yo M)Acc No.[id number]:09/10/2024 Patient: Kody PAVON :1970 A ge:54 Y S ex:Male Address:[address], [place] [address] * true * Date: Generated for Maddyi ng/Fapamelag/eTransmitting on: 0 09/10/2024 04:41 PM EDT
--- OUTSIDE RECORDS SUMMARY | 2024-09-10 16:41 | XMS_ITS | Encounter Summary ---
Author Organization [facility] Address [address] [facility] [place] [address] Care Team Providers Care Turf And Grounds Supervisor Name Role Phone Kira Heredia MD Unavailable [phone] Unallocated, Noms Provider Primary Care Provi radha Jasmin Loco DO Unavailable [phone] Encounter Details Date Type Department Care Team (Late st Contact Info) Description 08/31/2024 Orders Only [facility] [address] [facility] [address] [place] [address] Kira Heredia MD [address] [place] [address] Social History Tobacco Use Types Packs/Day Years [...] as of this encounter Plan of Treatment Not on file documented as of this encounter Procedures Procedure [...] on filedocumented in this encounter Care Teams Turf And Grounds Supervisor Relationship Specialty Start Date End Date Unallocated, Noms MD Gianluca [address] [place] [address] PCP - General Family Medicine 04/19/24 Kira Heredia MD [address] [place] [address] Referring Physician Family Medicine 04/19/24 Loco Castellanos DO [address] [place] [address] [place] [address] Referring Physician Neurology 05/17/24 documented as of this encounter
--- OUTSIDE RECORDS SUMMARY | 2024-09-10 16:41 | XMS_ITS | Patient Health Record ---
Author Organization [facility] Address [address] [place] [address] Care Team Providers Care Optometrist President/Practice Owner Name Role Phone CartagenaJohn valencia Unavailable [phone] Kira Heredia Unavailable Unavailable EduardoSethZita Unavailable [phone] Allergies No Known Allergies Results Component Value [...] Lab: Notes/Report: MRI : Hand W/O Contrast [facility] t - [id number] Reviewed date:08/29/2024 09:42:38 AM Interpretation: Performing Lab: Notes/Report: Reason For Referral Reason APPROVED.........PLE ASE OBTAIN AUTHORIZATION FOR MRI RIGHT HAND Diagnosis 1 Swelling of right bonds nd (M79.89) Referral Organization [facility] Referring Provider First Name John Referring Provider Last Name Cartagena Referring Provider Speciality Orthopedic Surgery Referred Organization [facility] molly Referred Address [place], [place], Procedure 1 MRI Upper Ext NON-Cindy int w/o Dye ([id number]) General Notes Marie Morris 025 02:49:42 PM >NEED DICTATION, Marie Morris 05/28/2024 02:52:50 PM >PENDING SANDOR SCOTT # [id number] CLINICAL ATTACHED.............NEED DICTATION TO UPLOAD, Yeny Slaughter 05/28/2024 03:23:43 PM >Printed for Brooklyn Ahumada Monica 05/29/2024 12:14:20 PM >DONEAlexandra Amy 05/29/2024 12:32:29 PM >CLINICAL UPLOADED, Maire Morris 05/30/2024 07:51:05 AM >STILL PENDINGAlexandra Amy 05/31/2024 07:20:27 AM >APPROVED PER SANDOR AYON #[id number] VALID 05/28/2024-08/26/2024 COPY IN CHART MA NOTIFIED REF FAXED TO Sukhjinder LARA Kimberly 05/31/2024 07:55:56 AM > Faxed order to [facility] Referral Priority Routine Reason Please contact magdalena stevens to schedule for EMG Right Upper Extremity, thank you. Diagnosis 1 Right hand paresthes ia (R20.2) Referral Organization [facility] Referring Provider First Name John Referring Provider Last Name Mitzi Referring Provider Speciality Orthopedic Surgery Referred Organization [facility] Referred Address [address] [place] [address],[facility], General Notes Vonda Barahona 2024 09:14:14 AM > FAXED Referral Priority Routine Medications Medication SIG (Take, [...] Problem Status W/U Status Risk Notes Problem [id number] Right hand paresthesia (R20.2) Active confirmed Problem [id number] Swelling of right hand (M79.89) Active confirmed Problem Fall, initial encounter (W19.XXXA) Active confirmed Vital Signs Height 5'6 in 09/10/2024 Weight 225 lbs 09/10/2024 BMI 36.31 09/10/2024 Encounters Encounter Location Date Provider Diagnosis [facility] [address] [address] 09/10/2024 John Cartagena Right hand paresthesia R20.2 [facility] [address] [place] [address] 05/14/2024 John Cartagena Other bursitis of knee, left knee M70.52 ; Stiffness of right hand joint M25.641 and Swelling of right hand M79.89 [facility] [address] [place] [address] [place] [address] 05/28/2024 [facility] Swelling of right hand M79.89 and Fall, initial encounter W19.XXXA [facility] [address] [place] [address] 05/25/2024 John Cartagena Assessments Encounter Date Diagnosis [...] Right hand pain and swelling after fall 09/10/2024 Right hand paresthesia (ICD-10 - R20.2) 05/14/2024 Swelling of right hand (ICD-10 - M79.89) 09/10/2024 Other For his hand paresthesias I recommended an EMG study. For his hand arthritis I have discussed options such as an injection into the third MP joint. He would like to think about this. He will follow-up once the EMG is complete. Import medication 05/14/2024 Other For his right hand stiffness [...] and swelling after fall Plan Of Treatment Pending Test Test Name Order Date EMG/NCS Upper Extremity, Right 5 Insurance Providers Payer Name Payer Address Payer Phone Subscriber Number Group Number Insured Name Patient Relationship to Insured Coverage Start Date Coverage End Date [address] [address] [place] [address] [id number] SHASHANKTATE MCKNIGHT Self - patient is the insured Medical (General) History Medical History History ICD Code Hypothyroidism GI Problems: Depression Sleep apnea CPAP Machine: Yes
--- OUTSIDE RECORDS SUMMARY | 2024-09-10 16:41 | XMS_ITS | Clinical Summary ---
Author Organization [facility] Address [address] [place] [address] Care Team Providers Care Math Teacher Name Role Phone Kira Heredia MD Unavailable [phone] Unallocated, Noms Provider Primary Care Provi radha Varun Castellanostitonorman DO Unavailable Allergies No known active allergies Medications cholecalciferol [...] ORTHO [address] [place] [id number] Kira Heredia MD 06/12/2024 Telephone [facility] [address] [place] [id number] Jazlyn Lemus, OT OT status; fu (DC) [...] 05/17/2024 8:22 AM EST Plan of Treatment Health Maintenance Due Date Last Done Comments [...] Final Result from Last 3 Months Insurance [employer] Care Teams Math Teacher Relationship Specialty Start Date End Date Unallocated, Noms Provider, [address] [place] [place] [address] PCP - General Family Medicine 04/19/24 Kira Heredia MD [address] [place] [id number] Referring Physician Family Medicine 04/19/24 Loco Castellanos DO [facility] [place] [address] Referring Physician Neurology 05/17/24
--- OUTSIDE RECORDS SUMMARY | 2024-09-10 16:41 | XMS_ITS | Patient Health Record ---
Author Organization [facility] in [place] Address [address] [place] [address] Care Team Providers Care Pct Name Role Phone Kira Garrison Primary Care Provider Betsy Reid Caballero [phone] Allergies No Known Allergies Results Component Value Reference Range Notes IRON Reviewed date:04/17/2024 12:59:36 PM Interpretation: Performing Lab: Notes/Report: [facility] , Iron 129.0 65.0-175.0 ug/dL Performing Lab: see note ML - [facility] LB XR HAND RT MIN 3V Reviewed date:04/17/2024 04:06:04 PM Interpretation: Performing Lab: Notes/Report: Source Facility: [place] [address] XRay Report Signed Patient: KODY ENCARNACION MR#: [id number] : 1970 Acct:[id number] Age/Sex: 53 / M ADM Date: 04/17/24 Loc: LAB Attending Dr: KIRA GARRISON Ordering Physician: KIRA GARRISON Date of Service: 04/17/24 Procedure(s): XR hand RT min 3V Accession Number(s): [id number] cc: KIRA GARRISON [place] [address] Patient Name: KODY ENCARNACION MRN: [id number] date: 1970 Sex: M Assigned Patient Location: LAB Current Patient Location: LAB Accession/Order Number: [id number] Exam Date: 04/17/2024 10:25 Report Date: 04/17/2024 [...] Signed By: 04/17/24 1535 DD/ 1532 TD/TT: Material Liaison: [place] [id number] XRay Report Signed Patient: ANNETTE ENCARNACION MR#: [id number] : 1970 Acct:[id number] Age/Sex: 53 / M ADM Date: 04/17/24 Loc: LAB Attending Dr: KIRA GARRISON Ordering Physician: KIRA GARRISON Date of Service: 04/17/24 Procedure(s): XR miller d RT min 3V Accession Number(s): [id number] cc: KIRA GARRISON [place] [id number] Patient Name: KODY ENCARNACION MRN: [id number] date: 1970 Sex: M Assigned Patient Location: LAB Current Patient Loca tion: LAB Accession/Order Numb er: [id number] Exam Date: 04/17/2024 10:25 Report Date: 04/17/2024 [...] Signed By: 04/17/24 1535 DD/ 153 TD/TT: Material Liaison: XR KNEE LT 3V Reviewed date:04/17/2024 04:05:58 PM Interpretation: Performing Lab: Notes/Report: Source Facility: [place] [address] XRay Report Signed Patient: KODY ENCARNACION MR#: [id number] : 1970 Acct:[id number] Age/Sex: 53 / M ADM Date: 04/17/24 Loc: LAB Attending Dr: KIRA GARRISON Ordering Physician: KIRA GARRISON Date of Service: 04/17/24 Procedure(s): XR knee LT 3V Accession Number(s): [id number] cc: KIRA GARRISON [place] [address] Patient Name: KODY ENCARNACION MRN: [id number] date: 1970 Sex: M Assigned Patient Location: LAB Current Patient Location: LAB Accession/Order Number: [id number] Exam Date: 04/17/2024 10:25 Report Date: 04/17/2024 [...] Signed By: 04/17/24 1535 DD/ 153 TD/TT: Material Liaison: [place] [address] XRay Report Signed Patient: ANNETTE ENCARNACION MR#: [id number] : 1970 Acct:[id number] Age/Sex: 53 / M ADM Date: 04/17/24 Loc: LAB Attending Dr: KIRA GARRISON Ordering Physician: KIRA GARRISON Date of Service: 04/17/24 Procedure(s): XR kne e LT 3V Accession Number(s): [id number] cc: KIRA GARRISON [place] [address] Patient Name: KODY ENCARNACION MRN: [id number] date: 1970 Sex: M Assigned Patient Location: LAB Current Patient Loca tion: LAB Accession/Order Numb er: [id number] Exam Date: 04/17/2024 10:25 Report Date: 04/17/2024 [...] By: Mikey Irving M.D. Signed By: 04/17/24 153 DD/ 153 TD/TT: Material Liaison: CBC AUTO DIFF Reviewed date:04/17/2024 12:59:36 PM Interpretation: Performing Lab: Notes/Report: [facility] , White Blood Count 5.8 [...] Performing Lab: see note ML - [facility] DIRECT LDL Reviewed date:04/17/2024 12:59:36 PM Interpretation: Performing Lab: Notes/Report: [facility] , LDL Cholesterol Direct 49 <100 mg/dl OPTIMAL 100-129 mg/dl NEAR OR ABOVE OPTIMAL 160-189 mg/dl HIGH 130-159 mg/dl BORDERLINE HIGH >190 mg/dl VERY HIGH Performing Lab: see note - [facility] FREE T3 Reviewed date:04/17/2024 12:59:36 PM Interpretation: Performing Lab: Notes/Report: [facility] , Free T3 2.15 2.18-3.98 pg/mL Performing Lab: see note - [facility] GLYCOHEMOGLOBIN A1C Reviewed date:04/17/2024 12:59:36 PM Interpretation: Performing Lab: Notes/Report: [facility] , Glycohemoglobin A1C 6.1 4.5-6.2 % > 7.0 ADA THERAPEUTIC TARGET < 7.0 ADA RECOMMENDED LIMIT 4.0 - 6.0 ACTION SUGGESTED Estimated Average Glucose 128 Performing Lab: see note - [facility] INSULIN Reviewed date:04/18/2024 09:12:23 AM Interpretation: Performing Lab: Notes/Report: [facility] , Insulin 15.6 2.6-24.9 uIU/mL Performed at: [facility] Sterile Preparation Technician: Atul Reid PhD, Phone: [phone] [address] [place], [place] [phone] Performing Lab: see note [facility] LB LAB TESTING Reviewed date:04/18/2024 09:12:23 AM Interpretation: Performing Lab: Notes/Report: [id number] URIC ACID [facility] , Miscellaneous Test COMMENT . Uric Acid 8.2 mg/dL CB Performed at: - [facility] [place] Therapeutic target for gout patients: <6.0 Test Ordered: [id number] Uric Acid Sterile Preparation Technician: Atul Reid PhD, Phone: [phone] [address] [place], [place] [phone] Reference Range: 3.8-8.4 Performing Lab: see note [facility] LIPID PROFILE Reviewed date:04/17/2024 12:59:36 PM Interpretation: Performing Lab: Notes/Report: [facility] , Triglycerides 3317 <=150 mg/dL Cholesterol 301 <=200 mg/dL HDL Cholesterol 27 40-60 mg/dL > or =60 mg/dl - LOW CARDIOVASCULAR RISK <40 mg/dl - HIGH CARDIOVASCULAR RISK VLDL CHOLESTEROL 663.4 Chol HDL Ratio 11.1 >11.0 HIGH RISK 3.3 - 4.4 LOW RISK 7.1 - 11.0 MODERATE RISK 4.4 - 7.1 AVERAGE RISK Performing Lab: see note ML - [facility] LB PSA SCREENING Reviewed date:04/17/2024 12:59:36 PM Interpretation: Performing Lab: Notes/Report: [facility] , Prostate Specific Antigen Scrn 0.22 <=4.00 ng/mL Performing Lab: see note ML - [facility] T4 Reviewed date:04/17/2024 12:59:36 PM Interpretation: Performing Lab: Notes/Report: [facility] , T4 Thyroxine 4.30 4.50-12.10 ug/dL Performing Lab: see note ML - [facility] LB TSH Reviewed date:04/17/2024 12:59:36 PM Interpretation: Performing Lab: Notes/Report: [facility] , Thyroid Stimulating Hormone 27.573 0.358-3.740 uIU/mL Performing Lab: see note ML - [facility] VITAMIN D 25 [place] Reviewed date:04/17/2024 12:59:36 PM Interpretation: Performing Lab: Notes/Report: [facility] , Vitamin D 21.6 30-100 ng/mL Vit D sufficient <20 ng/mL Vit D deficient >100 ng/mL Potential Toxicity 20-<30 ng/mL Vit D insufficient Performing Lab: see note ML - [facility] LB Vitamin B12 Reviewed date:04/18/2024 09:12:24 AM Interpretation: Performing Lab: Notes/Report: [facility] Vitamin B12 208 794-9542 pg/mL Performed at: [address] [id number] Sterile Preparation Technician: Atul Reid PhD, Phone: [phone] Performing Lab: see note [facility] LB LAB TESTING Reviewed date:04/30/2024 03:58:21 PM Interpretation: Performing Lab: Notes/Report: [id number] METABOLIC PANEL 14, COMPREHENSIVE [facility] , Miscellaneous Test SEE SCANN ED REPORT Performing Lab: see note LC - [facility] LB Occult Blood* Reviewed date:04/19/2024 12:06:25 PM Interpretation: Performing Lab: Notes/Report: [facility] , Occult Blood Negative Performing Lab: see note ML - [facility] LB MR head/brain wo con Reviewed date:05/11/2024 12:35:06 PM Interpretation: Performing Lab: Notes/Report: Source Facility: [place] [address] Magnetic Resonance Report Signed Patient: KODY ENCARNACION MR#: [id number] : 1970 Acct:[id number] Age/Sex: 53 / M ADM Date: 05/08/24 Loc: MRI Attending Dr: KIRA GARRISON Ordering Physician: KIRA GARRISON Date of Service: 05/08/24 Procedure(s): MR head/brain wo con Accession Number(s): [id number] cc: KIRA GARRISON [place] [address] Patient Name: KODY ENCARNACION MRN: [id number] date: 1970 Sex: M Assigned Patient Location: MRI Current Patient Location: MRI Accession/Order Number: [id number] Exam Date: 05/08/2024 09:00 Report Date: 05/08/2024 [...] Signed By: 05/08/24 1302 DD/ 1259 TD/TT: Material Liaison: [place] [address] Magnetic Resonance Report Signed Patient: ANNETTE ENCARNACION MR#: [id number] : 1970 Acct:[id number] Age/Sex: 53 / M ADM Date: 05/08/24 Loc: MRI Attending Dr: KIRA GARRISON Ordering Physician: KIRA GARRISON Date of Service: 05/08/24 Procedure(s): MR head/brain wo con Accession Number(s): [id number] cc: KIRA GARRISON [place] [id number] Patient Name: KODY ENCARNACION MRN: [id number] date: 1970 Sex: M Assigned Patient Location: MRI Current Patient Loca tion: MRI Accession/Order Numb er: [id number] Exam Date: 05/08/2024 09:00 Report Date: 05/08/2024 [...] Signed By: 05/08/24 1302 DD/ 1259 TD/TT: Material Liaison: MARY by IFA Reviewed date:05/22/2024 08:17:18 AM Interpretation: Performing Lab: Notes/Report: [facility] , Antinuclear Antibodies, IFA Negative . International Consensus on Antinuclear Antibody (MARY) Borderline 1:80 Negative <1:[address] [place] [phone] Patterns (ICAP). ANApatterns.org, the official website for the For more information about Hep-2 cell patterns use Positive >1:80 Sterile Preparation Technician: Atul Reid PhD, Phone: [phone] Performed at: [facility] nomenclature: AC-0 Performing Lab: see note - [facility] LB CBC AUTO DIFF Reviewed date:05/22/2024 08:17:45 AM Interpretation: Performing Lab: Notes/Report: [facility] , White Blood Count 5.8 [...] 10 3/uL Performing Lab: see note - [facility] LB CRP Reviewed date:05/22/2024 08:17:45 AM Interpretation: Performing Lab: Notes/Report: [facility] , C Reactive Protein <0.50 <=0.50 mg/dL Performing Lab: see note [facility] PROF CHEM 8 (BAS METB) Reviewed date:05/22/2024 08:17:45 AM Interpretation: Performing Lab: Notes/Report: [facility] , Sodium 138 136-145 mmol/L [...] 9.1 8.5-10.1 mg/dL Performing Lab: see note - [facility] LB RHEUMATOID FACTOR Reviewed date:05/22/2024 08:17:45 AM Interpretation: Performing Lab: Notes/Report: [facility] , Rheumatoid Factor (RF) 13.8 <14.0 IU/mL Sterile Preparation Technician: Atul Reid PhD, Phone: [phone] [address] [place], [place] [phone] Performed at: [facility] Performing Lab: see note - [facility] LB Erythrocyte Sedimentation Ra te Reviewed date:05/22/2024 08:17:45 AM Interpretation: Performing Lab: Notes/Report: [facility] , Erythrocyte Sedimentation Rate 16 <=20 mm/hr Performing Lab: see note ML - [facility] LB HLA B 27 Disease Association Reviewed date:05/22/2024 08:17:45 AM Interpretation: Performing Lab: Notes/Report: [facility] , HLA B 27 Disease Association Negative . Sterile Preparation Technician: Elizabeth Quevedo PhD, Phone: [phone] by the Food and Drug Administration. The FDA has determined that such clearance or approval is supplemental method when necessary. technique. Sequence Based Typing (SBT) may be used as a This test was developed and its performance characteristics This test was performed using Polymerase Chain Reaction (PCR) and Sequence Specific Oligonucleotide Probes (SSOP) determined by [facility]. It has not been cleared or approved [address] [place] [id number] Performed at: [address] [place] [address] DNA not necessary. B27 allele interpretation for all loci based on IMGT/HLA database version 3.51.0 If you have questions, please call HLA customer service HLA Lab CLIA ID Number [id number] at or email at [email or web address]. HLA-B*27 Negative Performing Lab: see note LC - [facility] LB CBC AUTO DIFF Reviewed date:06/06/2024 09:35:27 AM Interpretation: Performing Lab: Notes/Report: [facility] , White Blood Count 7.2 [...] 3/uL Performing Lab: see note ML - [facility] LB DIRECT LDL Reviewed date:06/06/2024 09:35:27 AM Interpretation: Performing Lab: Notes/Report: [facility] , LDL Cholesterol Direct 49 <100 mg/dl OPTIMAL 100-129 mg/dl NEAR OR ABOVE OPTIMAL 160-189 mg/dl HIGH >190 mg/dl VERY HIGH 130-159 mg/dl BORDERLINE HIGH Performing Lab: see note ML - [facility] FREE T3 Reviewed date:06/06/2024 09:35:27 AM Interpretation: Performing Lab: Notes/Report: [facility] , Free T3 1.80 2.18-3.98 pg/mL Performing Lab: see note ML - [facility] LB LIPID PROFILE Reviewed date:06/06/2024 09:35:27 AM Interpretation: Performing Lab: Notes/Report: [facility] , Triglycerides 1473 <=150 mg/dL Cholesterol 245 <=200 mg/dL HDL Cholesterol 36 40-60 mg/dL > or =60 mg/dl - LOW CARDIOVASCULAR RISK <40 mg/dl - HIGH CARDIOVASCULAR RISK VLDL CHOLESTEROL 294.6 Chol HDL Ratio 6.8 4.4 - 7.1 AVERAGE RISK 7.1 - 11.0 MODERATE RISK >11.0 HIGH RISK 3.3 - 4.4 LOW RISK Performing Lab: see note ML - [facility] LB T4 Reviewed date:06/06/2024 09:35:27 AM Interpretation: Performing Lab: Notes/Report: [facility] , T4 Thyroxine 0.90 4.50-12.10 ug/dL Performing Lab: see note ML - [facility] LB TSH Reviewed date:06/06/2024 09:35:27 AM Interpretation: Performing Lab: Notes/Report: [facility] , Thyroid Stimulating Hormone 46.230 0.358-3.740 uIU/mL Performing Lab: see note ML - [facility] LB CBC AUTO DIFF Reviewed date:08/13/2024 11:42:12 AM Interpretation: Performing Lab: Notes/Report: [facility] , White Blood Count 4.7 [...] Performing Lab: see note ML - [facility] LB DIRECT LDL Reviewed date:08/13/2024 11:42:12 AM Interpretation: Performing Lab: Notes/Report: [facility] , LDL Cholesterol Direct 50 <100 mg/dl OPTIMAL 130-159 mg/dl BORDERLINE HIGH >190 mg/dl VERY HIGH 100-129 mg/dl NEAR OR ABOVE OPTIMAL 160-189 mg/dl HIGH Performing Lab: see note ML - [facility] LB FREE T3 Reviewed date:08/13/2024 11:42:12 AM Interpretation: Performing Lab: Notes/Report: [facility] , Free T3 2.47 2.18-3.98 pg/mL Performing Lab: see note ML - [facility] LB LIPID PROFILE Reviewed date:08/13/2024 11:42:12 AM Interpretation: Performing Lab: Notes/Report: [facility] , Triglycerides 1318 <=150 mg/dL Cholesterol 215 <=200 mg/dL HDL Cholesterol 37 40-60 mg/dL <40 mg/dl - HIGH CARDIOVASCULAR RISK > or =60 mg/dl - LOW CARDIOVASCULAR RISK VLDL CHOLESTEROL 263.6 Chol HDL Ratio 5.8 4.4 - 7.1 AVERAGE RISK >11.0 HIGH RISK 3.3 - 4.4 LOW RISK 7.1 - 11.0 MODERATE RISK Performing Lab: see note ML - [facility] LB PSA SCREENING Reviewed date:08/13/2024 11:42:12 AM Interpretation: Performing Lab: Notes/Report: [facility] , Prostate Specific Antigen Scrn 0.44 <=4.00 ng/mL Performing Lab: see note ML - [facility] LB T4 Reviewed date:08/13/2024 11:42:12 AM Interpretation: Performing Lab: Notes/Report: [facility] , T4 Thyroxine 3.10 4.50-12.10 ug/dL Performing Lab: see note ML - [facility] LB TSH Reviewed date:08/13/2024 11:42:12 AM Interpretation: Performing Lab: Notes/Report: [facility] , Thyroid Stimulating Hormone 24.729 0.358-3.740 uIU/mL Performing Lab: see note ML - [facility] LB Testosterone Reviewed date:08/13/2024 11:42:12 AM Interpretation: Performing Lab: Notes/Report: [facility] , Testosterone 168 264-916 ng/dL [id number]. Adult male reference interval is based on a population of healthy nonobese males (BMI <30) between 19 and 39 years Sterile Preparation Technician: Atul Reid PhD, Phone: [phone] [address] [place], [place] [phone] old. Levy, et.al. JCEM 2017,102;6820-5587. PMID: Performed at: - [facility] Performing Lab: see note - [facility] LB MR hand RT wo con Reviewed date:08/31/2024 11:57:15 AM Interpretation: Performing Lab: Notes/Report: Source Facility: [place] [address] Magnetic Resonance Report Signed Patient: KODY ENCARNACION MR#: [id number] : 1970 Acct:[id number] Age/Sex: 53 / M ADM Date: 08/31/24 Loc: MRI Attending Dr: KIRA GARRISON Ordering Physician: KIRA GARRISON Date of Service: 08/31/24 Procedure(s): MR hand RT wo con Accession Number(s): [id number] cc: KIRA GARRISON [place] [address] Patient Name: KODY ENCARNACION MRN: [id number] date: 1970 Sex: M Assigned Patient Location: MRI Current Patient Location: MRI Accession/Order Number: [id number] Exam Date: 08/31/2024 11:25 Report Date: 08/31/2024 [...] Xie M.D. 08/31/2024 11:33 AM Dictation Location: [place] [address] Electronically authenticated by: [id number] Y Date: 08/31/2024 11:33 Dictated By: Ken Xie M.D. Signed By: 08/31/24 1135 DD/ 1133 TD/TT: Material Liaison: [place] [id number] Magnetic Resonance Report Signed Patient: ANNETTE ENCARNACION MR#: [id number] : 1970 Acct:[id number] Age/Sex: 53 / M ADM Date: 08/31/24 Loc: MRI Attending Dr: KIRA GARRISON Ordering Physician: KIRA GARRISON Date of Service: 08/31/24 Procedure(s): MR angela meraz RT wo con Accession Number(s): [id number] cc: KIRA GARRISON [address] [address] Patient Name: KODY ENCARNACION MRN: [id number] date: 1970 Sex: M Assigned Patient Location: MRI Current Patient Loca tion: MRI Accession/Order Numb er: [id number] Exam Date: 08/31/2024 11:25 Report Date: 08/31/2024 [...] Xie M.D. 08/31/2024 11:33 AM Dictation Location: [facility] Electronically authenticated by: [id number] Y Date: 08/31/2024 11:33 Dictated By: Ken Xie M.D. Signed By: 08/31/24 1135 DD/ 1133 TD/TT: Material Liaison: YVONNE veronika perf SPECT rest str Reviewed date:09/06/2024 12:53:58 PM Interpretation: Performing Lab: Notes/Report: Source Facility: [place] [address] Nuclear Medicine Report Signed Patient: KODY ENCARNACION MR#: [id number] : 1970 Acct:[id number] Age/Sex: 54 / M ADM Date: 09/04/24 Loc: NM Attending Dr: KIRA GARRISON Ordering Physician: KIRA GARRISON Date of Service: 09/04/24 Procedure(s): NM veronika perf SPECT rest str Accession Number(s): [id number] cc: KIRA GARRISON Patient Name: KODY ENCARNACION MR#: [id number] : 1970 Exam Date: 09/04/2024 Ordering Doctor: KIRA GARRISON [facility] RADIOLOGY REPORT PROCEDURE: NM VERONIKA PERF SPECT REST STR COMPARISON: None. INDICATIONS: CHEST PAIN TECHNIQUE: Exam Description: Stress/Rest one day protocol gated SPECT Rest Imagin.9 mCi Tc-99m Cardiolite IV on 09/04/2024 Stress Imaging 30.8 mCi Tc-99m Cardiolite IV on 09/04/2024 Exercise Protocol: Gregory Heart Rate (bpm): Rest: 57 Max: 144 PMHR: 86 Blood Pressure: Rest: 170/80 Max: 156/88 Exercise Time: Minutes: 9 Seconds: 45 Stage Reached: Stage: 4 Mets 11.1 Symptoms: Rest and peak stress ECG findings were pending, and the exercise portion of the study was pending per attending physician [facility]. For more details, please see separate cardiac stress test report. FINDINGS: QUALITY OF STUDY: Good PERFUSION DEFECT: LOCATION: N/A SIZE: N/A SEVERITY: N/A TYPE: N/A WALL MOTION: Normal wall motion LV SIZE: 100 mL. TID / TCD: 0.8 LVEF: Calculated EF 67%. SUMMARY: Myocardial perfusion imaging study is normal CONCLUSION: 1. Myocardial perfusion is normal 2. Global left ventricular systolic function is normal 3. No evidence of transient ischemic dilatation Dictated by: Mary Jo Araiza M.D. on 09/05/2024 at 16:50 Approved by: Mary Jo Araiza M.D. on 09/05/2024 at 16:52 Dictated By: Mary Jo Araiza M.D. Signed By: 09/05/241652 DD/ 51 TD/TT: Material Liaison: [place] [address] Nuclear Medicine Report Signed Patient: ANNETTE ENCARNACION MR#: [id number] : 1970 Acct:[id number] Age/Sex: 54 / M ADM Date: 09/04/24 Loc: NM Attending Dr: KIRA GARRISON Ordering Physician: KIRA GARRISON Date of Service: 09/04/24 Procedure(s): NM veronika perf SPECT rest str Accession Number(s): [id number] cc: KIRA GARRISON Patient Name: KODY ENCARNACION MR#: [id number] : 1970 Exam Date: 09/04/2024 Ordering Doctor: SUREKHA GARRISON [facility] RADIOLOGY REPORT PROCEDURE: NM VERONIKA PE RF SPECT REST STR COMPARISON: None. INDICATIONS: CHEST PAIN TECHNIQUE: Exam Description: Stress/Rest one day protocol gated SPECT Rest Imagin.9 mC i Tc-99m Cardiolite IV on 09/04/2024 Stress Imaging 30.8 mCi Tc-99m Cardiolite IV on 09/04/2024 Exercise Protocol: Gregory Heart Rate (bpm): Re st: 57 Max: 144 PMHR: 86 Blood Pressure: Rest : 170/80 Max: 156/88 Exercise Time: Minut es: 9 Seconds: 45 Stage Reached: Stage : 4 Mets 11.1 Symptoms: Rest and peak stress ECG findings were pending, and the exercise portion of the study was pendin g per attending physician [facility]. For more details, please see separate cardiac stress test report. FINDINGS: QUALITY OF STUDY: Good PERFUSION DEFECT: LOCATION: N/A SIZE: N/A SEVERITY: N/A TYPE: N/A WALL MOTION: Normal wall motion LV SIZE: 100 mL. TID / TCD: 0.8 LVEF: Calculated EF 67%. SUMMARY: Myocardial perfusion imaging study is normal CONCLUSION: 1. Myocardial perfus ion is normal 2. Global left ventricular systolic function is normal 3. No evidence of transient ischemic dilatation Dictated by: Mary Jo Araiza M.D. on 09/05/2024 at 16:50 Approved by: Mary Jo Araiza M.D. on 09/05/2024 at 16:52 Dictated By: Mary Jo Araiza M.D. Signed By: 09/05/24 1653 DD/ 51 TD/TT: Material Liaison: Reason For Referral Reason headache for 6 month s Diagnosis 1 Migraine (G43.909) Referral Organization [facility] Referring Provider First Name Kira Referring Provider Last Name Yan Referring Provider [facility] icine Referred Provider Kenzie Null Referred Provider Specialty Neurology Referral Priority Routine Reason IBS Diagnosis 1 Irritable bowel (K58 .9) Referral Organization [facility] Referring Provider First Name Kira Referring Provider Last Name Yan Referring Provider [facility] icine Referred Provider Cristobal Moncada Referred Provider Specialty Gastroentero logy Referral Priority Routine Diagnosis 1 Irritable bowel (K58 .9) Referral Organization [facility] Referring Provider First Name Kira Referring Provider Last Name Yan [facility]erred Provider Alejandra Hayden Referred Provider Specialty Gastroentero logy Referral Priority Routine Diagnosis 1 Left knee pain (M25. 562) Referral Organization [facility] Referring Provider First Name Kira Referring Provider Last Name Yan [facility] Referred Provider John [place] Referred Provider Specialty Orthopedic S urgery Referral Priority Routine Diagnosis 1 Polyarticular osteoa rthritis (M15.9) Referral Organization [facility] Referring Provider First Name Kira Referring Provider Last Name Yan [facility] Referred Provider Abdi Duke Referred Provider Specialty Rheumatology Referral Priority Routine Diagnosis 1 Hand pain (M79.643) Referral Organization [facility] Referring Provider First Name Kira Referring [...] week for 28 days 08/21/2024 Active Zenpep 21205-43903 UNIT as directed Orally Active Vitamin D3 [...] Oil 1000 MG TAKE 1 CAPSULE BY MO UTH THREE TIMES DAILY FOR 30 DAYS for [...] Status W/U Status Risk Notes Problem Hypothyroidism (00913526) Hypothyroidism (E03.9) Active confirmed Problem Sleep apnea (77209349) Sleep apnea (G47.30) Active confirmed Problem Vitamin D deficiency (18080664) Vitamin D deficiency (E55.9) Active confirmed Problem Migraine (90532030) Migraine (G43.909) Active c onfirmed Problem Hypertriglyceridemia (889418965) Hypertriglyceridemia (E78.1) Active confirmed Problem Low testosterone (381749128) Low testosterone (E29.1) Active confirmed Problem Neuralgia (89972718) Neuralgia (M79.2) Active c onfirmed Problem Irritable bowel (42493799) Irritable bowel (K58.9) Active confirmed Problem Polyarticular osteoarthritis (249614809) Polyarticular osteoarthritis (M15.9) Active confirmed Vital Signs [...] N/A Encounters Encounter Location Date Provider Diagnosis [facility] [address] [place] [address] 06/28/2024 Reid Greeny Low testosterone E29 .1 [facility] [address] [place] [address] 07/12/2024 Reid Greeny Low testosterone E29 .1 [facility] [address] [place] [address] 07/24/2024 Kira Garrison Low testosterone E29 .1 [facility] [address] [place] [address] 08/16/2024 Kira Garrison Low testosterone E29 .1 [facility] [address] [place] [address] 08/30/2024 Kira Garrison Low testosterone E29 .1 [facility] [address] [place] [address] 04/17/2024 Kira Garrison Wellness examination Z00.00 ; Migraine G43.909 ; Right hand pain M79.641 ; Left knee pain M25.562 ; Irritable bowel K58.9 and Depression F32.A [facility] [address] [place] [address] 04/20/2024 Kira Garrison Right hand pain M79. 641 ; Hypertriglyceridemia E78.1 ; Left knee pain M25.562 ; Hypothyroidism E03.9 and Vitamin D deficiency E55.9 [facility] [address] [place] [address] 06/13/2024 Kira Garrison Fatigue R53.83 ; Low testosterone E29.1 ; Sleep apnea G47.30 and Hypothyroidism E03.9 [facility] [address] [place] [address] 08/27/2024 Kira Garrison Intermittent chest p ain R07.9 ; Fatigue R53.83 and Right hand pain M79.641 [facility] [address] [facility] [place] [address] 08/31/2024 Kira Garrison [facility] [address] [place] [address] 09/06/2024 Kira Garrison [facility] [address] [place] [address] 09/10/2024 Kira Garrison [facility] [address] [place] [address] 06/28/2024 Kira Garrison [facility] [address] [facility] [place] [address] 07/24/2024 Kira Garrison [facility] [address] [facility] [place] [address] 08/06/2024 Reid Meyer Low testosterone E29 .1 [facility] [address] [facility] [place] [address] 08/09/2024 Kira Garrison Low testosterone E29 .1 [facility] [address] [facility] [place] [address] 08/21/2024 Kira Garrison Hypothyroidism E03.9 and Low testosterone E29.1 [facility] [address] [facility] [place] [address] 08/27/2024 Kira Garrison Hand pain M79.643 [facility] [address] [facility] [place] [address] 06/04/2024 Kira Garrison Wellness examination Z00.00 and Hypothyroidism E03.9 [facility] [address] [facility] [place] [address] 06/06/2024 Kira Garrison Hypothyroidism E03.9 and Hypertriglyceridemia E78.1 [facility] [address] [place] [facility] [place] [address] 06/08/2024 Kira Garrison Hypertriglyceridemia E78.1 [facility] [address] [facility] [place] [address] 06/12/2024 Reid Meyer [facility] [address] [facility] [place] [address] 06/13/2024 Kira Garrison [facility] [address] [facility] [place] [address] 06/18/2024 Kira Garrison Fatigue R53.83 and L ow testosterone E29.1 [facility] [address] [facility] [place] [address] 11/04/2023 Kira Garrison [facility] [address] [facility] [place] [address] 04/18/2024 Kira Garrison Irritable bowel K58. 9 [facility] [address] [facility] [place] [address] 04/19/2024 Kira Garrison [facility] [address] [facility] [place] [address] 04/23/2024 Kira Garrison [facility] [address] [place] [address] 04/30/2024 Kira Garrison Left knee pain M25.5 62 and Polyarticular osteoarthritis M15.9 [facility] [address] [facility] [place] [address] 05/11/2024 Kira Garrison Assessments Encounter Date Diagnosis [...] 06/06/2024 *CARDIO Stress Test - Cardiolite 025 Medications Administered Medication Instructions Date of Administration Dosage Notes Testosterone Cypionate 06/28/2024 0.75 mL Testosterone Cypionate 07/12/2024 0.75 mL Testosterone Cypionate 07/24/2024 0.75 mL Testosterone Cypionate 08/16/2024 0.75 mL Testosterone Cypionate 08/30/2024 0.75 mL
[2024-09-12 04:07] LABS: Prolactin 18.3 ng/mL (3.6-25.2)
== END 2024-09-10 16:37 | disposition home or self-care (01) ==
PROVIDERS: PCP Nurse Practitioner Family; Visit Provider Urology
DX: E23.0 Hypopituitarism (principal)
CPT/HCPCS: 36415; 84146

== ENCOUNTER 2024-09-27 14:33 | Outpatient (OUT) | payer OTHER, SELFPAY ==
--- OUTSIDE RECORDS SUMMARY | 2024-09-10 04:30 | XMS_ITS ---
Author Organization [facility] Address [address] [place] [address] Care Team Providers Care Ballistics Laboratory Gunsmith Name Role Phone John Cartagena Unavailable [phone] Kira Heredia Unavailable Unavailable Allergies No Known Allergies Reason For Referral Reason Please contact magdalena stevens to schedule for EMG Right Upper Extremity, thank you. Diagnosis 1 Right hand paresthes ia (R20.2) Referral Organization [facility] Referring Provider First Name John Referring Provider Last Name Mitzi Referring Provider Speciality Orthopedic Surgery Referred Organization [facility] Referred Address [address] [place] [address],[place], [place], General Notes Vonda Barahona 2024 09:14:14 AM > FAXED Referral Priority Routine REASON FOR VISIT RIGHT HAND Medications Medication SIG (Take, Route, Frequency, Duration) Notes Start Date End Date Status Vitamin D3 Active Vascepa Active FLUoxetine Active [...] Problem Status W/U Status Risk Notes Problem [id number] Right hand paresthesia (R20.2) Active confirmed Vital Signs Height 5'6 in 09/10/2024 Weight 225 lbs 09/10/2024 BMI 36.31 09/10/2024 Encounters Encounter Location Date Provider Diagnosis [facility] [address] [facility] [place] [address] [place] [address] 09/10/2024 Johnedwina Cartagena Right hand paresthesia R20.2 Assessments Encounter Date Diagnosis (ICD Code) Assessment Notes Treatment Notes Treatment Clinical Notes Section Notes 09/10/2024 Right hand paresthesia (ICD-10 - R20.2) 09/10/2024 Other For his hand paresthesias I recommended an EMG study. For his hand arthritis I have discussed options such as an injection into the third MP joint. He would like to think about this. He will follow-up once the EMG is complete. Import medication Plan Of Treatment Treatment Notes Assessment Notes Other For his hand paresthesias I recommended an EMG study. For his hand arthritis I have discussed options such as an injection into the third MP joint. He would like to think about this. He will follow-up once the EMG is complete. Import medication Pending Test Test Name Order Date EMG/NCS Upper Extremity, Right Referrals Referral Date Details 09/10/2024 09/10/2024, Please c ontact patient to schedule for EMG Right Upper Extremity, thank you., [address], [place], [address], Next Appt Details Follow Up: AFTER EMG, Reason : Progress Notes * TATE ENCARNACIONDOB: 1 (54 yo M)Acc No.[id number]:09/10/2024 Patient: TATE PAVON Provider: Heena Cartagena MD :1970 A ge:54 Y S ex:Male Date:09/10/2024 Address:[address] [place], [place] [address] Subjective: * Chief Complaints: * 1 . RIGHT HAND. * HPI: G eneral Follow Up Information: Patient presents today for follow-up of his right hand. He reports he continues to have pain with activities of daily living but also notes some numbness and tingling in this thumb index and long fingers. this occurs with activities such as driving. He reports with the Medrol Dosepak and anti-inflammatories no improvement in symptoms. * Medical History: H ypothyroidism, GI Problems: , Depression, Sleep apnea, CPAP Machine: Yes. * Family History: N o Family History documented.. * Social History: A MANUEL-C (Standard) D [...] use: C urrent smoker. * Medications: T aking levothyroxine , Taking FLUoxetine , Taking Vascepa , Taking Vitamin D3 , Discontinued Medrol Dosepak 4 mg tablet as directed , Discontinued Mobic 15 mg tablet 1 tab(s) orally once a day , Medication List reviewed and reconciled with the patient * Allergies: N .K.D.A. Objective: * Vitals: H t: 5'6 , Wt: 225 lbs, BMI:36.31. * Examination: G eneral examination: E xamination today of his right hand reveals tenderness at the third finger MP joint and thumb CMC joint. M RI Imaging Studies: M RI was reviewed that shows some arthritic changes throughout the hand particularly the third finger MP joint. Assessment: * Assessment: 1. R ight hand paresthesia - R20.2 (Primary) Plan: * Treatment: 2. O thers Notes: For his hand paresthesias I recommended an EMG study. For his hand arthritis I have discussed options such as an injection into the third MP joint. He would like to think about this. He will follow-up once the EMG is complete. Import medication * Follow Up: A FTER EMG Forms: * Images: * Electronic signature of Sami Cartagena MD on 09/27/2024 at 01:47 PM EDT Sign off status: Pending * Provider: Heena Cartagena MD Date: 0 09/10/2024 Generated for Keisha garcia/Claribel/Eusebiosmitting on: 0 09/27/2024 01:47 PM EDT History and Physical Notes * HPI (History of Present Illness) Category Sub-Category Detail Notes Category Not es General Follow Up Information Patient presents tod ay for follow-up of his right hand. He reports he continues to have pain with activities of daily living but also notes some numbness and tingling in this thumb index and long fingers. this occurs with activities such as driving. He reports with the Medrol Dosepak and anti-inflammatories no improvement in symptoms. Examination Category Sub-Category Detail Notes Category Not es General examination Examinat ion today of his right hand reveals tenderness at the third finger MP joint and thumb CMC joint. MRI Imaging Studies MRI was reviewed that shows some arthritic changes throughout the hand particularly the third finger MP joint. Consultation Request Notes Referral Date Referring Provider Referred Provider Not es 09/10/2024 John Cartagena , Please cont act patient to schedule for EMG Right Upper Extremity, thank you.
--- OUTSIDE RECORDS SUMMARY | 2024-09-13 05:00 | XMS_ITS ---
Author Organization [facility] in [place] Address [address] [place] [address] Care Team Providers Care Fleecer Name Role Phone Kira Heredia Primary Care Provider REASON FOR VISIT Testosterone Injection Encounters Encounter Location Date Provider Diagnosis [facility] [address] [place] [address] 09/13/2024 Kira Heredia Plan Of Treatment No Information Progress Notes * Kody ENCARNACIONDOB: 1 (54 yo M)Acc No.[id number]:09/13/2024 UNLOCKED PROGRESS NOTE Progress Note Patient: Kody PAVON Provider: Herrera Heredia CNP (TTC) :1970 A ge:54 Y S ex:Male Date:09/13/2024 Address:[address], [facility] Subjective: * Chief Complaints: * 1 . Testosterone Injection. * Medical History: Objective: * Vitals: Assessment: Plan: * Treatment: * * Electronic signature of Cecily Paul , CATIA, DRAFTER AUTOMOTIVE DESIGN LAYOUT.SENIOR PACKAGING [email or web address] on 09/27/2024 at 02:38 PM EDT Sign off status: Pending Visit Status: C ANC (Cancelled) * Provider: Herrera MILTON)EVENS Date: 09/13/2024 Generated for Printi ng/Faxing/eTransmitting on: 09/27/2024 02:38 PM EDT
--- OUTSIDE RECORDS SUMMARY | 2024-09-14 23:59 | XMS_ITS | Continuity of Care Document ---
Author Organization [facility] Address [address] [place] [address] [place] [address] Care Team Providers Care Airline Operations Agent Name Role Phone NEW GARRISON Primary Care Physician Encounter [facility] [id number] Date(s): 09/14/24 - 09/14/24 [facility] [address] [place], [place] [address] Discharge Disposition: Home (Routine DC) Attending Physician: AURORA ROMERO, Ji Be Encounter Type: Clinic Allergies, Adverse Reactions, Alerts No Known Allergies Assessment and Plan Future Appointments Appointment Date:10/15/2024 09:00:00 AM Scheduled Provider: Location:[facility] Appointment Type:URO Nurse Visit Immunizations Not Given Vaccine Date Status Refusal Reason influenza virus vaccine, inactivated 04/24/24 Not Given Patient Refuses Medications cholestyramine 4 g/9 g Oral Pwdr 4 gm, Oral, BID, 378 gm, Refill(s) 11, [facility] #[facility], 170, cm, 05/11/24 7:28:00 EST, Height/Length Dosing, 108.6, kg, 05/11/24 7:28:00 EST, Weight Dosing Start Date: 05/14/24 Status: Ordered Quantity: 378.0 Unit: g Repeat number: 12 Creon 36,000 units oral delayed release capsule 2 cap(s), Oral, TID, 360 cap(s), Refill(s) 3, [facility] #[facility], 170, cm, 07/17/24 13:04:00 EDT, Height/Length Dosing, 101, kg, 07/17/24 13:04:00 EDT, Weight Dosing Start Date: 07/17/24 Status: Ordered Quantity: 360.0 Unit: cap(s) Repeat number: 4 Fish Oil Oral, Refill(s) 0 Start Date: 08/16/24 Status: Ordered Repeat number: 1 levothyroxine Daily, Refills(s) 0, Thyroid Start Date: 04/24/24 Status: Ordered Repeat number: 1 omeprazole 40 mg Cap-DR 40 mg = 1 cap(s), Oral, BID, # 180 cap(s), Refills(s) 3, Pharmacy: [facility], 170,cm, 05/11/24 7:28:00 EST, Height/Length Dosing, 108.6, kg, 05/11/24 7:28:00 EST, Weight Dosing Start Date: 05/11/24 Status: Ordered Quantity: 180.0 Unit: cap(s) Repeat number: 4 Prozac 20 mg, Oral, Daily, Refills(s) 0, Depression Start Date: 04/24/24 Status: Ordered Repeat number: 1 Questran 4 g/9 g oral powder = 1 packet(s), Oral, BID, # 60 EA, Refills(s) 0, Pharmacy: [facility], 170, cm, 04/24/24 8:57:00 EST, Height/Length Dosing, 108.6, kg, 04/24/24 8:57:00 EST, Weight Dosing Start Date: 04/24/24 Status: Ordered Quantity: 60.0 Unit: EA Repeat number: 1 Indications: Melena; Irritable bowel syndrome with diarrhea; Abdominal distension (gaseous); Gastro-esophageal reflux disease without esophagitis; tadalafil 20 mg Tab 20 mg = 1 tab(s), Oral, As Directed, PRN for erectile dysfunction, Pt to take one tab 1 hour prior to sexual activity. Do not exceed 20mg in 24 hours., # 30 tab(s), Refills(s) 0, Pharmacy: [facility], 165, cm, 09/10/24 15:33:00 EDT, Height/Length Dosing, 108, kg, 09/10/24 15:33:00 EDT, Weight Dosing Start Date: 09/10/24 Status: Ordered Quantity: 30.0 Unit: tab(s) Repeat number: 1 Indications: Male erectile dysfunction, unspecified; Vascepa 1 g oral capsule gm cap(s), Oral, BID, Refills(s) 0, High cholesterol Start Date: 04/24/24 Status: Ordered Repeat number: 1 Vitamin D3 50 mcg (2000 intl units) oral tablet, chewable mcg tab(s), Oral, Daily, Refills(s) 0, Prophylaxis Start Date: 04/24/24 Status: Ordered Repeat number: 1 Problem List Condition Confirmation Course Effective Dates Status H ealth Status Informant Bloating Confirmed Active Acquired buried penis Confirmed Active Anemia of chronic disorder (low iron) Confirmed Active Benign hypertension (high blood pressure) Confirmed Active BPH with urinary obstruction Confirmed Active Black stool Confirmed Active Alcohol drinker Confirmed Active ED (erectile dysfunction) Confirmed Active Chronic GERD Confirmed Active Blood in stool Confirmed Active High triglycerides Confirmed Active Irritable bowel syndrome with diarrhea Confirmed Active Decreased sexual desire Confirmed Active Hypogonadism male Confirmed Active Obesity due to excess calories Confirmed Active Screening PSA (prostate specific antigen) Confirmed Active Colon polyps Confirmed Active Stress-related physiological response affecting medical condition Confirmed Active Fatty liver Confirmed Active Thyroid function tests abnormal Confirmed Active Procedures Procedure Date Related Diagnosis Body Site Status Colonoscopy 1 05/11/24 Completed Esophagogastroduodenoscopy 2 05/11/24 Completed 1colon polyps x2, diverticulosis, Ih 2esophagitis, gastritis, clean based ulcers, biopsies for celiac disease Social History Social History Type Response Smoking Status Never (less than 100 in lifetime); Tobacco Use: Chewing tobacco;Never;Smokeless tobacco user within last 30 days; Type: Cigarettes; Type: Oral entered on: 08/16/24 Sex Male Sex Representation Male (finding) Patient Care team information Care Team Personnel Name: NEW GARRISON CNP Member Role: Primary Care Physician Address: [address] [place] [address] Telecom: Care Team Related Persons Name: PINO ENCARNACION Insurance Providers Guarantor name: Health Plan Information #: 1 Payer: NA Payer Identifier: [id number] Member Number: [id number] Group Number: [id number] Subscriber Identifier: [id number] Relationship to Subscriber: Self Coverage Type: PRIVATE HEALTH INSURANCE Coverage Verification Date: 24 Telecom: MARGOTH Address: NA
--- OUTSIDE RECORDS SUMMARY | 2024-09-24 06:16 | XMS_ITS ---
Author Organization [facility] [place] Address [address] [place] [address] Care Team Providers Care Car Dropper Name Role Phone Kira Heredia Primary Care Provider REASON FOR VISIT due for testosterone Encounters Encounter Location Date Provider Diagnosis [address] [address] 09/24/2024 Kira Heredia Low testosterone E29 .1 Assessments Encounter Date Diagnosis (ICD Code) Assessment Notes Treatment Notes Treatment Clinical Notes Section Notes 09/24/2024 Low testosterone (ICD-10 - E29.1) Plan Of Treatment No Information Progress Notes * Kody ENCARNACIONDOB: 1 (54 yo M)Acc No.[id number]:09/24/2024 Patient: Kody PAVON :1970 A ge:54 Y S ex:Male Address:[address] [place] [address] [address], [place] [address] Subjective: * Chief Complaints: * D ue for testosterone * Medical History: * Surgical History: * Hospitalization/Major Diagno stic Procedure: * Medications: Objective: * Vitals: * Physical Examination: Assessment: * Assessment: 1. L ow testosterone - E29.1 (Primary) Plan: * Treatment: * Procedure Codes: * true * Date: Generated for Printi ng/Faxing/eTransmitting on: 0 09/27/2024 02:38 PM EDT
--- OUTSIDE RECORDS SUMMARY | 2024-09-27 10:00 | XMS_ITS ---
Author Organization [facility] in [place] Address [address] [place] [address] Care Team Providers Care Director Of Regional Sales Name Role Phone Kira Heredia Primary Care Provider Allergies No Known Allergies Reason For Referral Reason MALCOLM, fatigue Diagnosis 1 Sleep apnea (G47.30) Referral Organization [facility] Referring Provider First Name Kira Referring Provider Last Name Yan Referring Provider Speciality Family Med icine Referred Provider Kenzie Null Referred Provider Specialty Sleep Medici ne Referral Priority Routine REASON FOR VISIT Presents to office alone for c/o extreme fatigue, SELF PAY Medications Medication SIG (Take, Route, Frequency, Duration) Notes Start Date End Date Status Levothyroxine Sodium 125 MCG TAKE 1 TABLET BY MOUTH EVERY DAY for 30 days Active Omeprazole 40 MG Oral for 30 Days Active Testosterone Cypionate 200 MG/ML 1 mL Intramuscular every other week for 28 days 08/21/2024 Active Wellbutrin XL 150 MG 1 tablet in the mor josias Orally Once a day for 30 days 09/27/2024 Active Cholestyramine 4 GM/DOSE TAKE FOUR GRAM BY MOUTH TWICE DAILY Oral for 100 Days Active BD Syringe/Needle 23G X 1 3 ML as directed for 90 days 06/21/2024 Acti ve Fish Oil 1000 MG TAKE 1 CAPSULE BY [facility] THREE TIMES DAILY FOR 30 DAYS for 30 Active Vitamin D3 Super Strength 50 MCG (1999 UT) 1 capsule Orally Once a day for 30 days 04/20/2024 Active Social History Tobacco Use: Social History [...] Problem Status W/U Status Risk Notes Problem Mixed anxiety and depressive disorder (251340681) Anxiety and depression (F41.8) Active confirmed Problem Chronic fatigue syndrome (16957872) Chronic fatigue (R53.82) Active confirmed Problem Obese class I (finding) (76299192149474 7) Class 1 obesity (E66.9) Active confirmed Vital Signs Blood pressure systolic 142 mm Hg 09/28/19 25 Blood pressure diastolic 90 mm Hg 025 Height 67 in 09/27/2024 Weight 222.6 lbs 09/27/2024 BMI 34.86 kg/m2 09/27/2024 Encounters Encounter Location Date Provider Diagnosis [facility] [address] [place] [address] 09/27/2024 Kira Heredia Hypothyroidism E03.9 ; Sleep apnea G47.30 ; Low testosterone E29.1 ; Anxiety and depression F41.8 and Chronic fatigue R53.82 Assessments Encounter Date Diagnosis (ICD Code) Assessment Notes Treatment Notes Treatment Clinical Notes Section Notes 09/27/2024 Hypothyroidism (ICD-10 - E03.9) 09/27/2024 Sleep apnea (ICD-10 - G47.30) willing to revisit 09/27/2024 Low testosterone (ICD-10 - E29.1) DR Wilder now treating this 09/27/2024 Anxiety and depression (ICD-10 - F41.8) stop prozac doesnt think helping trial of wellbutrin fu 1 m consider counseling 09/27/2024 Chronic fatigue (ICD-10 - R53.82) stress test WNL discussed getting thyroid and test levels normalized treat sleep apnea see how hes doing after those 3 treated also work on mental health Plan Of Treatment Medication Medication Name Sig Start Date Stop Date Notes PROzac 20 MG 1 capsule Orally Once a day 04/17/2024 Wellbutrin XL 150 MG 1 tablet in the mor josias Orally Once a day for 30 days 09/27/2024 Treatment Notes Assessment Notes Sleep apnea willing to revisit Low testosterone DR Wilder now treati radha this Anxiety and depression stop prozac doesnt think helping trial of wellbutrin fu 1 m consider counseling Chronic fatigue stress test WNL discussed getting thyroid and test levels normalized treat sleep apnea see how hes doing after those 3 treated also work on mental health Pending Test Test Name Order Date THYROID PANEL (T4/TSH/FREE T3) 5 Referrals Referral Date Details 09/27/2024 09/27/2024, MALCOLM, fat igue, Kenzie Null Next Appt Details Follow Up: prn,4 Weeks, Reas on: Progress Notes * SHASHANKKodyDOB: 1 (54 yo M)Acc No.[id number]:09/27/2024 UNLOCKED PROGRESS NOTE Progress Note Patient: Kody PAVON Provider: Herrera Heredia ([facility]), OBSTETRICS NURSE PRACTITIONER :1970 A ge:54 Y S ex:Male Date:09/27/2024 Address:[address] [place] [address] [id number] Check In:01:46 PM ESTCheck O ut:02:23 PM EST Subjective: * Chief Complaints: * 1 . Presents to office alone for c/o extreme fatigue. 2. SELF PAY. * HPI: G eneral: most days real tired walking on treadmill 20 mins, at least half days of week, about a mile Meño working on test level feels better than he has in years but the fatigue is unrelenting most days wore CPAP in past. * ROS: G eneral/Constitutional: Chronic fatigue a dmits, unrelenting. F ever d enies. H eadache d enies. W eight loss d enies. O phthalmologic: Discharge d enies. E ye Pain d enies. I tching and redness d enies. E NT: Nasal discharge d enies. N cathy congestion d enies.?Sore throat d enies. C ardiovascular: Chest tightness/ heavy pressure d enies. R apid heart rate d enies. S welling of extremities d enies. C hest pain d enies. ? R espiratory: Productive cough d enies. C hest pain d enies. C ough d enies. S hortness of breath d enies. W heezing d enies. ? G astrointestinal: Abdominal pain d enies. C onstipation d enies. D ecreased appetite d enies. D iarrhea d enies. N ausea d enies. V omiting?denies. G enitourinary: Urinary incontinence d enies. P ainful urination d enies. M usculoskeletal: Back pain d enies. N linsey pain d enies. M uscle aches d enies. S kin: Rash d enies. S kin lesion(s) d enies. ? * Medical History: * Surgical History: d enies . * Hospitalization/Major Diagno stic Procedure: d enies . * Family History: F ather: alive, diagnosed with Diabetes mellitus without mention of complication, type II or unspecified type, not stated as uncontrolled, Unspecified essential hypertension. M other: . B uyen(s): alive. S ister(s): . 1 brother(s) , 2 sister(s) . 3 son(s) . .? * Social History: T obacco Use: T obacco use other than smoking A re you an other tobacco user? Y es chewing tobacco Tobacco Use/Smoking P atient is a n onsmoker D rug/Alcohol: A MANUEL-C (Standard) D id you have a drink containing alcohol in the past year? Y es H ow often did you have six or more drinks on one occasion in the past year? 2 to 4 times a month (2 points) H ow many drinks did you have on a typical day when you were drinking in the past year? 3 or 4 drinks (1 point) H ow often did you have a drink containing alcohol in the past year? D aily or almost daily (4 points) P oints 7 I nterpretation P ositive * Medications: T aking BD Syringe/Needle(Syringe/Needle (Disp)) [...] mL Intramuscular every other week , Taking Vitamin D3 Super Strength 50 MCG (1999 UT) Capsule 1 capsule Orally Once a day , Discontinued Vascepa(Icosapent Ethyl) 1 GM Capsule 2 capsules with meals Orally Twice a day , Discontinued Zenpep(Pancrelipase (Cbj-Lkye-Xvzg)) [id number] UNIT Capsule Delayed Release Particles as directed Orally , Medication List reviewed and reconciled with the patient * Allergies: N .K.D.A. Objective: * Vitals: W t:222.6lbs, Ht: 67 in, BP:142/90mm Hg, BMI:34.86Index, Ht-cm: 170.18 cm, Wt-k.97 kg. * Examination: G eneral Examinations: GENERAL APPEARANCE: a lert and oriented, in no acute distress, obese. EYES: conjunctiva normal, sclera non-icteric. NOSE: n ormal external appearance. LUNGS: c lear to auscultation bilaterally. CARDIO: r egular rate and rhythm, S1, S2 normal, no murmurs, no edema. ABDOMEN: s oft, nontender. MUSCULOSKELETAL: G ait and station normal. SKIN: warm and dry. Assessment: * Assessment: 1. H ypothyroidism - E03.9 (Primary) 2 . S leep apnea - G47.30 ?3. L ow testosterone - E29.1 4 . A nxiety and depression - F41.8 ? 5 . C hronic fatigue - R53.82 Plan: * Treatment: 2. S leep apnea Notes: willing to revisit Referral To:[facility] Reason:MALCOLM, fatigue 3. L ow testosterone Notes: DR Wilder now treating this 4. A nxiety and depression Start Wellbutrin XL Tablet Extended Release 24 Hour, 150 MG, 1 tablet in the morning, Orally, Once a day, 30 days, 30, Refills 1; S top PROzac Capsule, 20 MG, 1 capsule, Orally, Once a day. ? Notes: stop prozac doesnt think helping trial of wellbutrin fu 1 m consider counseling 5. C hronic fatigue Notes: stress test WNL discussed getting thyroid and test levels normalized treat sleep apnea see how hes doing after those 3 treated also work on mental health * Preventive Medicine: Screenings/Counseling: B MS ACTION PLAN Above Normal BMI Follow-up D ietary management education, guidance, and counseling See treatment section of progress note for complete details of management plan. * Follow Up: p rn,4 Weeks * * Electronic signature of Cecily Paul , CERTIFIED LEGAL INVESTIGATOR, HEALTH INFORMATION ADMINISTRATOR.OBSTETRICS NURSE [id number] on 09/27/2024 at 02:38 PM EDT Sign off status: Pending Visit Status: Radha ROSENBERG (Check Out) * Provider: Herrera Heredia ([facility]), OBSTETRICS NURSE PRACTITIONER Date: 09/27/2024 Generated for Maddyi radha/Claribel/eTransmitting on: 09/27/2024 02:38 PM EDT History and Physical Notes * HPI (History of Present Illness) Category Sub-Category Detail Notes Category Not es General most days real tired walking on treadmill 20 mins, at least half days of week, about a mile Wilder working on test level feels better than he has in years but the fatigue is unrelenting most days wore CPAP in past Examination Category Sub-Category Detail Notes Category Not es General Examinations GENERAL APPEARANCE: alert a nd oriented, in no acute distress, obese EYES: conjunctiva normal, sclera non-icteric NOSE: normal external appe arance CARDIO: regular rate and rhy thm, S1, S2 normal, no murmurs, no edema LUNGS: clear to auscultatio n bilaterally ABDOMEN: soft, nontender SKIN: warm and dry MUSCULOSKELETAL: Gait and station nor mal Consultation Request Notes Referral Date Referring Provider Referred Provider Not es 09/27/2024 Kira Heredia Nicole OSA, melanie e
--- OUTSIDE RECORDS SUMMARY | 2024-09-27 14:39 | XMS_ITS | Patient Health Record ---
Author Organization The [facility] in [place] Address [address] [place] [address] Care Team Providers Care Induction Heating Equipment Setter Name Role Phone Kira Garrison Primary Care Provider [phone] Peternikhil Reid [place] [phone] Allergies No Known Allergies Results Component Value Reference Range Notes DIRECT LDL Reviewed date:04/17/2024 12:59:36 PM Interpretation: Performing Lab: Notes/Report: [facility] , LDL Cholesterol Direct 49 <100 mg/dl OPTIMAL 100-129 mg/dl NEAR OR ABOVE OPTIMAL 160-189 mg/dl HIGH 130-159 mg/dl BORDERLINE HIGH >190 mg/dl VERY HIGH Performing Lab: see note ML - The [facility] LB FREE T3 Reviewed date:04/17/2024 12:59:36 PM Interpretation: Performing Lab: Notes/Report: [facility] , Free T3 2.15 2.18-3.98 pg/mL Performing Lab: see note ML - [facility] LB LIPID PROFILE Reviewed date:04/17/2024 12:59:36 PM Interpretation: Performing Lab: Notes/Report: [facility] , Triglycerides 3317 <=150 mg/dL Cholesterol 301 <=200 mg/dL HDL Cholesterol 27 40-60 mg/dL > or =60 mg/dl - LOW CARDIOVASCULAR RISK <40 mg/dl - HIGH CARDIOVASCULAR RISK VLDL CHOLESTEROL 663.4 Chol HDL Ratio 11.1 >11.0 HIGH RISK 3.3 - 4.4 LOW RISK 7.1 - 11.0 MODERATE RISK 4.4 - 7.1 AVERAGE RISK Performing Lab: see note ML - [facility] LB T4 Reviewed date:04/17/2024 12:59:36 PM Interpretation: Performing Lab: Notes/Report: [facility] , T4 Thyroxine 4.30 4.50-12.10 ug/dL Performing Lab: see note ML - [facility] LB TSH Reviewed date:04/17/2024 12:59:36 PM Interpretation: Performing Lab: Notes/Report: [facility] , Thyroid Stimulating Hormone 27.573 0.358-3.740 uIU/mL Performing Lab: see note ML - [facility] LB LAB TESTING Reviewed date:04/30/2024 03:58:21 PM Interpretation: Performing Lab: Notes/Report: [id number] METABOLIC PANEL 14, COMPREHENSIVE [facility] , Miscellaneous Test SEE SCANN ED REPORT Performing Lab: see note - [facility] LB Occult Blood* Reviewed date:04/19/2024 12:06:25 PM Interpretation: Performing Lab: Notes/Report: [facility] , Occult Blood Negative Performing Lab: see note ML - [facility] LB MARY by IFA Reviewed date:05/22/2024 08:17:18 AM Interpretation: Performing Lab: Notes/Report: [facility] , Antinuclear Antibodies, IFA Negative . International Consensus on Antinuclear Antibody (MARY) Borderline 1:80 Negative <1:[address] [place] [address] [phone] Patterns (ICAP). ANApatterns.org, the official website for the For more information about Hep-2 cell patterns use Positive >1:80 [employer] Senior Officer: Atul Reid PhD, Phone: [phone] Performed at: [facility] nomenclature: AC-0 Performing Lab: see note LC - [facility] LB CRP Reviewed date:05/22/2024 08:17:45 AM Interpretation: Performing Lab: Notes/Report: [facility] , C Reactive Protein <0.50 <=0.50 mg/dL Performing Lab: see note ML - [facility] LB PROF CHEM 8 (BAS METB) Reviewed date:05/22/2024 08:17:45 AM Interpretation: Performing Lab: Notes/Report: [facility] , Sodium 138 136-145 mmol/L Potassium 4.3 [...] 8.5-10.1 mg/dL Performing Lab: see note - [facility] LB RHEUMATOID FACTOR Reviewed date:05/22/2024 08:17:45 AM Interpretation: Performing Lab: [facility]Report: [facility] , Rheumatoid Factor (RF) 13.8 <14.0 IU/mL [employer] Senior Officer: Atul Reid PhD, Phone: [phone] [address] [place] [address] [phone] Performed at: [facility] Performing Lab: see note [facility] HLA B 27 Disease Association Reviewed date:05/22/2024 08:17:45 AM Interpretation: Performing Lab: Notes/Report: [facility] , HLA B 27 Disease Association Negative . [employer] Senior Officer: Elizabeth Quevedo PhD, Phone: [phone] by the Food and Drug Administration. The FDA has determined that such clearance or approval is supplemental method when necessary. technique. Sequence Based Typing (SBT) may be used as a This test was developed and its performance characteristics This test was performed using Polymerase Chain Reaction (PCR) and Sequence Specific Oligonucleotide Probes (SSOP) determined by [facility]. It has not been cleared or approved [address] [place] [address] [id number] Performed at: [address] [place] [address] DNA not necessary. B27 allele interpretation for all loci based on IMGT/HLA database version 3.51.0 If you have questions, please call HLA customer service HLA Lab CLIA ID Number [id number] at or email at [email or web address]. HLA-B*27 Negative Performing Lab: see note [facility] LB DIRECT LDL Reviewed date:06/06/2024 09:35:27 AM Interpretation: Performing Lab: Notes/Report: [facility] , LDL Cholesterol Direct 49 <100 mg/dl OPTIMAL 100-129 mg/dl NEAR OR ABOVE OPTIMAL 160-189 mg/dl HIGH >190 mg/dl VERY HIGH 130-159 mg/dl BORDERLINE HIGH Performing Lab: see note ML - [facility] LB FREE T3 Reviewed date:06/06/2024 09:35:27 AM Interpretation: Performing Lab: Notes/Report: [facility] , Free T3 1.80 2.18-3.98 pg/mL Performing Lab: see note ML - [facility] LB LIPID PROFILE Reviewed date:06/06/2024 09:35:27 AM Interpretation: Performing Lab: Notes/Report: [facility] , Triglycerides 1473 <=150 mg/dL Cholesterol 245 <=200 mg/dL HDL Cholesterol 36 40-60 mg/dL > or =60 mg/dl - LOW CARDIOVASCULAR RISK <40 mg/dl - HIGH CARDIOVASCULAR RISK VLDL CHOLESTEROL 294.6 Chol HDL Ratio 6.8 4.4 - 7.1 AVERAGE RISK 7.1 - 11.0 MODERATE RISK >11.0 HIGH RISK 3.3 - 4.4 LOW RISK Performing Lab: see note ML - [facility] LB T4 Reviewed date:06/06/2024 09:35:27 AM Interpretation: Performing Lab: Notes/Report: [facility] , T4 Thyroxine 0.90 4.50-12.10 ug/dL Performing Lab: see note ML - [facility] LB TSH Reviewed date:06/06/2024 09:35:27 AM Interpretation: Performing Lab: Notes/Report: [facility] , Thyroid Stimulating Hormone 46.230 0.358-3.740 uIU/mL Performing Lab: see note ML - [facility] LB CBC AUTO DIFF Reviewed date:08/13/2024 11:42:12 AM Interpretation: Performing Lab: Notes/Report: [facility] , White Blood Count 4.7 4.0-11.0 10 [...] note ML - The [facility] NM veronika perf SPECT rest str Reviewed date:09/06/2024 12:53:58 PM Interpretation: Performing Lab: Notes/Report: Source Facility: [facility]-[address] [place] [address] Nuclear Medicine Report Signed Patient: KODY ENCARNACION MR#: [id number] : 1970 Acct:[id number] Age/Sex: 54 / M ADM Date: 09/04/24 Loc: NM Attending Dr: KIRA GARRISON Ordering Physician: KIRA GARRISON Date of Service: 09/04/24 Procedure(s): NM veronika perf SPECT rest str Accession Number(s): [id number] cc: KIRA GARRISON Patient Name: KODY ENCARNACION MR#: [id number] : 1970 Exam Date: 09/04/2024 Ordering Doctor: KIRA GARRISON [facility] RADI[facility] REPORT PROCEDURE: NM VERONIKA PERF [...] the study was pending per attending physician [facility]. For more details, please see [...] M.D. Signed By: 09/05/241652 DD/ 51 TD/TT: Horticulture Teacher: [place] [address] Nuclear Medicine Report Signed Patient: ANNETTE ENCARNACION MR#: [id number] : 1970 Acct:[id number] Age/Sex: 54 / M ADM Date: 09/04/24 Loc: NM Attending Dr: KIRA GARRISON Ordering Physician: KIRA GARRISON Date of Service: 09/04/24 Procedure(s): NM veronika perf SPECT rest str Accession Number(s): [id number] cc: KIRA GARRISON Patient Name: KODY ENCARNACION MR#: [id number] : 1970 Exam Date: 09/04/2024 Ordering Doctor: SUREKHA GARRISON [facility] RADI[facility] REPORT PROCEDURE: NM VERONIKA PE RF SPECT REST STR COMPARISON: None. INDICATIONS: CHEST PAIN TECHNIQUE: Exam Description: Stress/Rest one day protocol gated SPECT Rest Imagin.9 mC i Tc-99m Cardiolite IV on 09/04/2024 Stress Imaging 30.8 mCi Tc-99m Cardiolite IV on 09/04/2024 Exercise Protocol: Gregory Heart Rate (bpm): Re st: 57 Max: 144 PMHR: 86 Blood Pressure: Res t: 170/80 Max: 156/88 Exercise Time: Minut es: 9 Seconds: 45 Stage Reached: Stag e: 4 Mets 11.1 Symptoms: Rest and peak stress ECG findings were pending, and the exercise portion of the study was pendin g per attending physician [facility]. For more details, please see [...] M.D. Signed By: 09/05/241652 DD/ 51 TD/TT: Horticulture Teacher: PROLACTIN Reviewed date:09/12/2024 10:18:42 AM Interpretation: Performing Lab: Notes/Report: [facility] , Prolactin 18.3 3.6-25.2 ng/mL [address] [place], [place] [id number] [employer] Senior Officer: Atul Reid PhD, Phone: [phone] Performed at: [facility] Performing Lab: see note [facility] LB Testosterone Reviewed date:08/13/2024 11:42:12 AM Interpretation: Performing Lab: Notes/Report: [facility] , Testosterone 168 264-916 ng/dL [id number]. Adult male reference interval is based on a population of healthy nonobese males (BMI <30) between 19 and 39 years [employer] Senior Officer: Atul Reid PhD, Phone: [phone] [address] [place], [place] [id number] old. gus Levy.al. JCEM 2017,102;0360-0408. PMID: Performed at: - [facility] [place] Performing Lab: see note - [facility] LB TSH Reviewed date:08/13/2024 11:42:12 AM Interpretation: Performing Lab: Notes/Report: [facility] , Thyroid Stimulating Hormone 24.729 0.358-3.740 uIU/mL Performing Lab: see note ML - [facility] LB T4 Reviewed date:08/13/2024 11:42:12 AM Interpretation: Performing Lab: Notes/Report: [facility] , T4 Thyroxine 3.10 4.50-12.10 ug/dL Performing Lab: see note ML - [facility] LB PSA SCREENING Reviewed date:08/13/2024 11:42:12 AM Interpretation: Performing Lab: Notes/Report: [facility] , Prostate Specific Antigen Scrn 0.44 <=4.00 ng/mL Performing Lab: see note ML - [facility] LB LIPID PROFILE Reviewed date:08/13/2024 11:42:12 AM Interpretation: Performing Lab: Notes/Report: [facility] , Triglycerides 1318 <=150 mg/dL Cholesterol 215 <=200 mg/dL HDL Cholesterol 37 40-60 mg/dL <40 mg/dl - HIGH CARDIOVASCULAR RISK > or =60 mg/dl - LOW CARDIOVASCULAR RISK VLDL CHOLESTEROL 263.6 Chol HDL Ratio 5.8 4.4 - 7.1 AVERAGE RISK >11.0 HIGH RISK 3.3 - 4.4 LOW RISK 7.1 - 11.0 MODERATE RISK Performing Lab: see note ML - [facility] LB FREE T3 Reviewed date:08/13/2024 11:42:12 AM Interpretation: Performing Lab: Notes/Report: [facility] , Free T3 2.47 2.18-3.98 pg/mL Performing Lab: see note ML - [facility] LB DIRECT LDL Reviewed date:08/13/2024 11:42:12 AM Interpretation: Performing Lab: Notes/Report: [facility] , LDL Cholesterol Direct 50 <100 mg/dl OPTIMAL 130-159 mg/dl BORDERLINE HIGH >190 mg/dl VERY HIGH 100-129 mg/dl NEAR OR ABOVE OPTIMAL 160-189 mg/dl HIGH Performing Lab: see note ML - [facility] LB CBC AUTO DIFF Reviewed date:06/06/2024 09:35:27 AM Interpretation: Performing Lab: Notes/Report: [facility] , White Blood Count 7.2 4.0-11.0 10 [...] 3/uL Performing Lab: see note ML - [facility] LB Erythrocyte Sedimentation Ra te Reviewed date:05/22/2024 08:17:45 AM Interpretation: Performing Lab: Notes/Report: [facility] , Erythrocyte Sedimentation Rate 16 <=20 mm/hr Performing Lab: see note ML - [facility] LB CBC AUTO DIFF Reviewed date:05/22/2024 08:17:45 AM Interpretation: Performing Lab: Notes/Report: [facility] , White Blood Count 5.8 4.0-11.0 10 [...] Performing Lab: see note ML - [facility] LB MR head/brain wo con Reviewed date:05/11/2024 12:35:06 PM Interpretation: Performing Lab: Notes/Report: Source Facility: [facility]-[address] [place] [address] [place] [address] Magnetic Resonance Report Signed Patient: KODY ENCARNACION MR#: [id number] : 1970 Acct:[id number] Age/Sex: 53 / M ADM Date: 05/08/24 Loc: MRI Attending Dr: KIRA GARRISON Ordering Physician: KIRA GARRISON Date of Service: 05/08/24 Procedure(s): MR head/brain wo con Accession Number(s): [id number] cc: KIRA GARRISON [place] [id number] Patient Name: KODY ENCARNACION MRN: [id number] date: 1970 Sex: M Assigned Patient Location: MRI Current Patient Location: MRI Accession/Order Number: [id number] Exam Date: 05/08/2024 09:00 Report Date: 05/08/2024 12:59 At the request of: KIRA GARRIOSN Procedure: MR head/brain wo con EXAM: MR [...] Signed By: 05/08/24 1302 DD/ 1259 TD/TT: Horticulture Teacher: [place] [address] Magnetic Resonance Report Signed Patient: ANNETTE ENCARNACION MR#: [id number] : 1970 Acct:[id number] Age/Sex: 53 / M ADM Date: 05/08/24 Loc: MRI Attending Dr: KIRA GARRISON Ordering Physician: KIRA GARRISON Date of Service: 05/08/24 Procedure(s): MR head/brain wo con Accession Number(s): [id number] cc: KIRA GARRISON [place] [id number] Patient Name: KODY ENCARNACION MRN: [id number] date: 1970 Sex: M Assigned Patient Location: MRI Current Patient Loca tion: MRI Accession/Order Numb er: [id number] Exam Date: 05/08/2024 09:00 Report Date: 05/08/2024 [...] Signed By: 05/08/24 1302 DD/ 1259 TD/TT: Horticulture Teacher: Vitamin B12 Reviewed date:04/18/2024 09:12:24 AM Interpretation: Performing Lab: Notes/Report: [facility] , Vitamin B12 050 674-6956 pg/mL Performed at: - [facility] [id number] [employer] Senior Officer: Atul Reid PhD, Phone: [phone] Performing Lab: see note - [facility] LB VITAMIN D 25 [place] Reviewed date:04/17/2024 12:59:36 PM Interpretation: Performing Lab: Notes/Report: [facility] , Vitamin D 21.6 30-100 ng/mL Vit D sufficient <20 ng/mL Vit D deficient >100 ng/mL Potential Toxicity 20-<30 ng/mL Vit D insufficient Performing Lab: see note ML - [facility] PSA SCREENING Reviewed date:04/17/2024 12:59:36 PM Interpretation: Performing Lab: Notes/Report: [facility] , Prostate Specific Antigen Scrn 0.22 <=4.00 ng/mL Performing Lab: see note ML - [facility] LAB TESTING Reviewed date:04/18/2024 09:12:23 AM Interpretation: Performing Lab: Notes/Report: [id number] URIC ACID [facility] , Miscellaneous Test COMMENT . Uric Acid 8.2 mg/dL CB Performed at: [facility] Therapeutic target for gout patients: <6.0 Test Ordered: [id number] Uric Acid [employer] Senior Officer: Atul Reid PhD, Phone: [phone] [address] [place] [phone] Reference Range: 3.8-8.4 Performing Lab: see note [facility] INSULIN Reviewed date:04/18/2024 09:12:23 AM Interpretation: Performing Lab: Notes/Report: [facility] , Insulin 15.6 2.6-24.9 uIU/mL Performed at: [facility] [employer] Senior Officer: Atul Reid PhD, Phone: [phone] [address], [place] [phone] Performing Lab: see note [facility] GLYCOHEMOGLOBIN A1C Reviewed date:04/17/2024 12:59:36 PM Interpretation: Performing Lab: Notes/Report: [facility] , Glycohemoglobin A1C 6.1 4.5-6.2 % > 7.0 ADA THERAPEUTIC TARGET < 7.0 ADA RECOMMENDED LIMIT 4.0 - 6.0 ACTION SUGGESTED Estimated Average Glucose 128 Performing Lab: see note ML - [facility] CBC AUTO DIFF Reviewed date:04/17/2024 12:59:36 PM Interpretation: Performing Lab: Notes/Report: [facility] , White Blood Count 5.8 4.0-11.0 10 [...] 3/uL Performing Lab: see note ML - [facility] LB XR KNEE LT 3V Reviewed date:04/17/2024 04:05:58 PM Interpretation: Performing Lab: Notes/Report: Source Facility: [facility]-[address] [place] [address] [place] [address] XRay Report Signed Patient: KODY ENCARNACION MR#: [id number] : 1970 Acct:[id number] Age/Sex: 53 / M ADM Date: 04/17/24 Loc: LAB Attending Dr: KIRA GARRISON Ordering Physician: KIRA GARRISON Date of Service: 04/17/24 Procedure(s): XR knee LT 3V Accession Number(s): [id number] cc: KIRA GARRISON [place] [address] Patient Name: KODY ENCARNACION MRN: [id number] date: 1970 Sex: M Assigned Patient Location: LAB Current Patient Location: LAB Accession/Order Number: [id number] Exam Date: 04/17/2024 10:25 Report Date: 04/17/2024 [...] Signed By: 04/17/24 1535 DD/ 1532 TD/TT: Horticulture Teacher: [place] [address] XRay Report Signed Patient: ANNETTE ENCARNACION MR#: [id number] : 1970 Acct:[id number] Age/Sex: 53 / M ADM Date: 04/17/24 Loc: LAB Attending Dr: KIRA GARRISON Ordering Physician: KIRA GARRISON Date of Service: 04/17/24 Procedure(s): XR kne e LT 3V Accession Number(s): [id number] cc: KIRA GARRISON [address] [address] Patient Name: KODY ENCARNACION MRN: [id number] date: 1970 Sex: M Assigned Patient Location: LAB Current Patient Loca tion: LAB Accession/Order Numb er: [id number] Exam Date: 04/17/2024 10:25 Report Date: 04/17/2024 [...] Signed By: 04/17/24 1535 DD/ 1532 TD/TT: Horticulture Teacher: XR HAND RT MIN 3V Reviewed date:04/17/2024 04:06:04 PM Interpretation: Performing Lab: Notes/Report: Source Facility: [place] [address] XRay Report Signed Patient: KODY ENCARNACION MR#: [id number] : 1970 Acct:[id number] Age/Sex: 53 / M ADM Date: 04/17/24 Loc: LAB Attending Dr: KIRA GARRISON Ordering Physician: KIRA GARRISON Date of Service: 04/17/24 Procedure(s): XR hand RT min 3V Accession Number(s): [id number] cc: KIRA GARRISON [place] [address] Patient Name: KODY ENCARNACION MRN: [id number] date: 1970 Sex: M Assigned Patient Location: LAB Current Patient Location: LAB Accession/Order Number: [id number] Exam Date: 04/17/2024 10:25 Report Date: 04/17/2024 [...] Signed By: 04/17/24 1535 DD/ 1532 TD/TT: Horticulture Teacher: [place] [address] XRay Report Signed Patient: ANNETTE ENCARNACION MR#: [id number] : 1970 Acct:[id number] Age/Sex: 53 / M ADM Date: 04/17/24 Loc: LAB Attending Dr: KIRA GARRISON Ordering Physician: KIRA GARRISON Date of Service: 04/17/24 Procedure(s): XR miller d RT min 3V Accession Number(s): [id number] cc: KIRA GARRISON [place] [address] Patient Name: KODY ENCARNACION MRN: [id number] date: 1970 Sex: M Assigned Patient Location: LAB Current Patient Loca tion: LAB Accession/Order Numb er: [id number] Exam Date: 04/17/2024 10:25 Report Date: 04/17/2024 [...] Irving M.D. Signed By: 04/17/24 153 DD/ 31 TD/TT: Horticulture Teacher: MELISSA Reviewed date:04/17/2024 12:59:36 PM Interpretation: Performing Lab: Notes/Report: [facility] , Iron 129.0 65.0-175.0 ug/dL Performing Lab: see note ML - [facility] LB MR hand RT wo con Reviewed date:08/31/2024 11:57:15 AM Interpretation: Performing Lab: Notes/Report: Source Facility: [place] [address] Magnetic Resonance Report Signed Patient: KODY ENCARNACION MR#: [id number] : 1970 Acct:[id number] Age/Sex: 53 / M ADM Date: 08/31/24 Loc: MRI Attending Dr: KIRA GARRISON Ordering Physician: KIRA GARRISON Date of Service: 08/31/24 Procedure(s): MR hand RT wo con Accession Number(s): [id number] cc: KIRA GARRISON [place] [address] Patient Name: KODY ENCARNACION MRN: [id number] date: 1970 Sex: M Assigned Patient Location: MRI Current Patient Location: MRI Accession/Order Number: [id number] Exam Date: 08/31/2024 11:25 Report Date: 08/31/2024 [...] Xie M.D. 08/31/2024 11:33 AM Dictation Location: [place] [address] Electronically authenticated by: [id number] Y Date: 08/31/2024 11:33 Dictated By: Ken Xie M.D. Signed By: 08/31/24 1135 DD/ 1133 TD/TT: Horticulture Teacher: [place] [address] Magnetic Resonance Report Signed Patient: ANNETTE ENCARNACION MR#: [id number] : 1970 Acct:[id number] Age/Sex: 53 / M ADM Date: 08/31/24 Loc: MRI Attending Dr: KIRA GARRISON Ordering Physician: KIRA GARRISON Date of Service: 08/31/24 Procedure(s): MR angela meraz RT wo con Accession Number(s): [id number] cc: KIRA GARRISON [place] [address] Patient Name: KODY ENCARNACION MRN: [id number] date: 1970 Sex: M Assigned Patient Location: MRI Current Patient Loca tion: MRI Accession/Order Numb er: [id number] Exam Date: 08/31/2024 11:25 Report Date: 08/31/2024 [...] Xie M.D. 08/31/2024 11:33 AM Dictation Location: [place] [address] Electronically authenticated by: [id number] Y Date: 08/31/2024 11:33 Dictated By: Ken Xie M.D. Signed By: 08/31/24 1135 DD/ 1133 TD/TT: Horticulture Teacher: Reason For Referral Reason headache for 6 month s Diagnosis 1 Migraine (G43.909) Referral Organization [facility] Referring Provider First Name Kira Referring Provider Last Name Yan Referring Provider Speciality Family Med icine Referred Provider Kenzie Null Referred Provider Specialty Neurology Referral Priority Routine Reason IBS Diagnosis 1 Irritable bowel (K58 .9) Referral Organization [facility] Referring Provider First Name Kira Referring Provider Last Name Yan Referring Provider [facility] tam Referred Provider Cristobal Moncada Referred Provider Specialty Gastroentero logy Referral Priority Routine Diagnosis 1 Irritable bowel (K58 .9) Referral Organization [facility] Referring Provider First Name Kira Referring Provider Last Name Yan Referring Provider [facility] tam Referred Provider Alejandra Hayden Referred Provider Specialty Gastroentero logy Referral Priority Routine Diagnosis 1 Left knee pain (M25. 562) Referral Organization [facility] Referring Provider First Name Kira Referring Provider Last Name Yan [facility]erred Provider John Cart[place]a Referred Provider Specialty Orthopedic S urgery Referral Priority Routine Diagnosis 1 Polyarticular osteoa rthritis (M15.9) Referral Organization [facility] Referring Provider First Name Kira Referring Provider Last Name Yan Referring Provider [facility] tam Referred Provider Abdi Duke Referred Provider Specialty Rheumatology Referral Priority Routine Diagnosis 1 Hand pain (M79.643) Referral Organization [facility] Referring Provider First Name Kira Referring Provider Last Name Yan Referring [facility] Referred Provider Jose Pfeiffer) Referred Provider Specialty Orthopedic S urgery General Notes Taylor Bennett 2024 08:40:44 AM >Second Opinion Referral Priority Routine Reason MALCOLM, fatigue Diagnosis 1 Sleep apnea (G47.30) Referral Organization [facility] Referring Provider First Name Kira Referring Provider Last Name Yan Referring Provider [facility] tam Referred Provider Kenzie Null Referred Provider Specialty Sleep Medici ne Referral Priority Routine Medications Medication SIG (Take, Route, Frequency, Duration) Notes Start Date End Date Status Wellbutrin XL 150 MG 1 tablet in the mor josias Orally Once a day for 30 days 09/27/2024 Active Vitamin D3 Super Strength 50 MCG (1999 [place]) 1 capsule Orally Once a day for 30 days 04/20/2024 Active Cholestyramine 4 GM/DOSE TAKE FOUR GRAM BY MOUTH TWICE DAILY Oral for 100 Days Active BD Syringe/Needle 23G X 1 3 ML as directed for 90 days 06/21/2024 Acti ve Levothyroxine Sodium 125 MCG TAKE 1 TABLET BY MOUTH EVERY DAY for 30 days Active Fish Oil 1000 MG TAKE 1 CAPSULE BY [facility] THREE TIMES DAILY FOR 30 DAYS for 30 Active Omeprazole 40 MG Oral for 30 Days Active Testosterone Cypionate 200 MG/ML 1 mL Intramuscular every other week for 28 days 08/21/2024 Active Social History Tobacco Use: Social History [...] Status W/U Status Risk Notes Problem Hypothyroidism (67606329) Hypothyroidism (E03.9) Active confirmed Problem Sleep apnea (89842209) Sleep apnea (G47.30) Active confirmed Problem Vitamin D deficiency (90243555) Vitamin D deficiency (E55.9) Active confirmed Problem Migraine (15614784) Migraine (G43.909) Active c onfirmed Problem Chronic fatigue syndrome (70876438) Chronic fatigue (R53.82) Active confirmed Problem Hypertriglyceridemia (088641224) Hypertriglyceridemia (E78.1) Active confirmed Problem Low testosterone (543775430) Low testosterone (E29.1) Active confirmed Problem Neuralgia (45662313) Neuralgia (M79.2) Active c onfirmed Problem Irritable bowel (97140472) Irritable bowel (K58.9) Active confirmed Problem Mixed anxiety and depressive disorder (983655234) Anxiety and depression (F41.8) Active confirmed Problem Obese class I (finding) (460207826266977) Class 1 obesity (E66.9) Active confirmed Problem Polyarticular osteoarthritis (562759396) Polyarticular osteoarthritis (M15.9) Active confirmed Vital Signs Blood pressure diastolic 90 mm Hg 09/27/2024 Height 67 in 09/27/2024 Blood pressure systolic 142 mm Hg 09/27/2024 Weight 222.6 lbs 09/27/2024 BMI 34.86 kg/m2 09/27/2024 Procedures Procedure Date Ordered Date Performed Result Body Sit e CARDIO Stress Test - Treadmill Exercise 06/13/2024 N/A *CARDIO Stress Test - Cardiolite 08/27/2024 N/A Encounters Encounter Location Date Provider Diagnosis [facility] [address] [place] [address] 08/31/2024 Kira Garrison [facility] [address] [place] [address] 09/06/2024 Kira Garrison [facility] [address] [place] [address] 09/10/2024 Kira Garrison [facility] [address] [place] [address] 09/24/2024 Kira Garrison Low testosterone E29 .1 [facility] [address] [place] [place] [address] 06/28/2024 Kira Garrison [facility] [address] [place] [place] [address] 07/24/2024 Kira Garrison [facility] [address] [place] [address] 08/06/2024 Reid Meyer Low testosterone E29 .1 [facility] [address] [place] [address] 08/09/2024 Kira Garrison Low testosterone E29 .1 [facility] [address] [place] [address] 08/21/2024 iKra Garrison Hypothyroidism E03.9 and Low testosterone E29.1 [facility] [address] [place] [address] 08/27/2024 Kira Garrison Hand pain M79.643 [facility] [address] [place] [address] 06/04/2024 Kira Garrison Wellness examination Z00.00 and Hypothyroidism E03.9 [facility] [address] [place] [address] 06/06/2024 Kira Garrison Hypothyroidism E03.9 and Hypertriglyceridemia E78.1 [facility] [address] [facility] [place] [address] 06/08/2024 Kira Garrison Hypertriglyceridemia E78.1 [facility] [address] [place] [address] 06/12/2024 Reid Greeny [facility] [address] [place] [address] 06/13/2024 Kira Garrison [facility] [address] [place] [address] 06/18/2024 Kira Garrison Fatigue R53.83 and L ow testosterone E29.1 [facility] [address] [place] [address] 11/04/2023 Kira Garrison [facility] [address] [place] [address] 04/18/2024 Kira Garrison Irritable bowel K58. 9 [facility] [address] [place] [address] 04/19/2024 Kira Garrison [facility] [address] [place] [address] 04/23/2024 Kira Garrison [facility] [address] [place] [address] 04/30/2024 Kira Garrison Left knee pain M25.5 62 and Polyarticular osteoarthritis M15.9 [facility] [address] [place] [address] 05/11/2024 Kira Garrison [facility] [address] [place] [address] 07/24/2024 Kira Garrison Low testosterone E29 .1 [facility] [address] [place] [address] 06/28/2024 Reid Meyer Low testosterone E29 .[address] [address] 07/12/2024 Reid Meyer Low testosterone E29 .[address] [address] 08/16/2024 Kira Garrison Low testosterone E29 .[address] [address] 08/30/2024 Kira Garrison Low testosterone E29 .[address] [address] 04/17/2024 Kira Garrison Wellness examination Z00.00 ; Migraine G43.909 ; Right hand pain M79.641 ; Left knee pain M25.562 ; Irritable bowel K58.9 and Depression F32.A [address] [address] 04/20/2024 Kira Garrison Right hand pain M79. 641 ; Hypertriglyceridemia E78.1 ; Left knee pain M25.562 ; Hypothyroidism E03.9 and Vitamin D deficiency E55.[address] [address] 06/13/2024 Kira Garrison Fatigue R53.83 ; Low testosterone E29.1 ; Sleep apnea G47.30 and Hypothyroidism E03.[address] [address] 08/27/2024 Kira Garrison Intermittent chest p ain R07.9 ; Fatigue R53.83 and Right hand pain M79.[address] [address] 09/27/2024 Kira Garrison Hypothyroidism E03.9 ; Sleep apnea G47.30 ; [...] wait check vit D level stress test 09/27/2024 Hypothyroidism (ICD- 10 - E03.9) 09/27/2024 Sleep apnea (ICD-10 - G47.30) willing to revisit 04/18/2024 Irritable bowel (ICD -10 - K58.9) [...] E03.9) 08/27/2024 Hand pain (ICD-10 - M79.643) 09/24/2024 Low testosterone (ICD-10 - E29.1) 08/21/2024 Low testosterone (ICD-10 - E29.1) 06/04/2024 Hypothyroidism (ICD- 10 - E03.9) 09/27/2024 Low testosterone (ICD-10 - E29.1) DR Wilder now treating this 08/27/2024 Right hand pain (ICD -10 - [...] G47.30) has not seen needs to revisit 09/27/2024 Anxiety and depressi on (ICD-10 - F41.8) stop prozac doesnt think helping trial of wellbutrin fu 1 m consider counseling 09/27/2024 Chronic fatigue (ICD -10 - R53.82) stress test WNL discussed getting thyroid and test levels normalized treat sleep apnea see how hes doing after those 3 treated also work on mental health 06/13/2024 Hypothyroidism (ICD- 10 - E03.9) on increased dose levo recheck labs 04/20/2024 Vitamin D deficiency (ICD-10 - E55.9) 04/17/2024 Irritable bowel (ICD -10 - K58.9) 04/17/2024 Depression (ICD-10 - F32.A) 06/13/2024 Other need GI and rheum OV notes Plan Of Treatment Pending Test Test Name Order Date CMP (COMPLETE METABOLIC PANEL) 5 CMP (COMPLETE METABOLIC PANEL) 3 HEMOGLOBIN A1C (GLYCO) 04/17/2024 HEMOGLOBIN A1C (GLYCO) 04/08/2023 INSULIN, TOTAL 04/08/2023 INSULIN, TOTAL 04/17/2024 LIPID PANEL (CHOL/TRIG/HDL/LDL) 04/17/19 25 LIPID PANEL (CHOL/TRIG/HDL/LDL) 04/08/20 23 LIPID PANEL (CHOL/TRIG/HDL/LDL) 06/04/19 25 CBC WITH DIFF 06/04/2024 CBC WITH DIFF 04/08/2023 CBC WITH DIFF 04/17/2024 PSA, PROSTATE-SPECIFIC ANTIGEN 3 URIC ACID 04/08/2023 URIC ACID 04/17/2024 MRI Hand RT w/o contrast 08/27/2024 CARDIO Stress Test - Treadmill Exercise 06/13/2024 PSA, TOTAL 04/17/2024 STOOL OCCULT BLOOD 04/17/2024 VITAMIN B12 04/21/2023 VITAMIN B12 04/17/2024 VITAMIN B12 04/08/2023 MRI BRAIN WO CON 04/17/2024 THYROID PANEL (T4/TSH/FREE T3) 5 THYROID PANEL (T4/TSH/FREE T3) 4 THYROID PANEL (T4/TSH/FREE T3) 5 THYROID PANEL (T4/TSH/FREE T3) 5 THYROID PANEL (T4/TSH/FREE T3) 5 THYROID PANEL (T4/TSH/FREE T3) 5 THYROID PANEL (T4/TSH/FREE T3) 3 Vitamin D 04/08/2023 Vitamin D 04/17/2024 Lipid Panel 06/06/2024 *CARDIO Stress Test - Cardiolite 025 Medications Administered Medication Instructions Date of Administration Dosage Notes Testosterone Cypionate 06/28/2024 0.75 mL Testosterone Cypionate 07/12/2024 0.75 mL Testosterone Cypionate 07/24/2024 0.75 mL Testosterone Cypionate 08/16/2024 0.75 mL Testosterone Cypionate 08/30/2024 0.75 mL Medical (General) History Surgical History Surgery Date(Month/Year) denies Hospitalization History Reason Date(Month/Year) denies
--- OUTSIDE RECORDS SUMMARY | 2024-09-27 14:39 | XMS_ITS | Patient Health Record ---
Author Organization [facility] Address [address] [place] [address] Care Team Providers Care Frame Pulley Mortising Machine Operator Name Role Phone CartagenaJohn valencia Unavailable [phone] Kira Heredia Unavailable Unavailable xxEduardo Zita Unavailable [phone] Allergies No Known Allergies Results Component Value [...] date:05/16/2024 09:41:33 AM Interpretation: Performing Lab: Notes/Report: MRI : Hand W/O Contrast [facility] t - [id number] Reviewed date:08/29/2024 09:42:38 AM Interpretation: Performing Lab: Notes/Report: Reason For Referral Reason APPROVED.........PLE ASE OBTAIN AUTHORIZATION FOR MRI RIGHT HAND Diagnosis 1 Swelling of right bonds nd (M79.89) Referral Organization [facility] Referring Provider First Name John Referring Provider Last Name Cartagena Referring Provider Speciality Orthopedic Surgery Referred Organization [facility] molly Referred Address [place], [place], Procedure 1 MRI Upper Ext NON-Cindy int w/o Dye ([id number]) General Notes Marie Morris 025 02:49:42 PM >NEED DICTATION, Marie Morris 05/28/2024 02:52:50 PM >PENDING SANDOR SCOTT # [id number] CLINICAL ATTACHED.............NEED DICTATION TO UPLOADSukhjinder Kimberly 05/28/2024 03:23:43 PM >Printed for [place] Ahumada Monica 05/29/2024 12:14:20 PM >DONEAlexandra Amy 05/29/2024 12:32:29 PM >CLINICAL UPLOADED, Marie Morris 05/30/2024 07:51:05 AM >STILL PENDINGAlexandra Amy 05/31/2024 07:20:27 AM >APPROVED PER SANDOR AYON #[id number] VALID 05/28/2024-08/26/2024 COPY IN CHART MA NOTIFIED [...] Speciality Orthopedic Surgery Referred Organization [facility] Referred Address [address] [place] [address],[place], [place],[facility], General Notes Vonda Barahona 2024 09:14:14 AM [...] Problem Status W/U Status Risk Notes Problem [id number] Right hand paresthesia (R20.2) Active confirmed Problem 058958706 Swelling of right hand (M79.89) Active confirmed Problem Fall, initial encounter (W19.XXXA) Active confirmed Vital Signs Height 5'6 in 09/10/2024 Weight 225 lbs 09/10/2024 BMI 36.31 09/10/2024 Encounters Encounter Location Date Provider Diagnosis [facility] [address] [address] 09/10/2024 John Cartagena Right hand paresthesia R20.2 [facility] [address] [place] [address] 05/14/2024 John Cartagena Other bursitis of knee, left knee M70.52 ; Stiffness of right hand joint M25.641 and Swelling of right hand M79.89 [facility] [address] [place] [address] 05/28/2024 Zita Carter Swelling of right hand M79.89 and Fall, initial encounter W19.XXXA [facility] [place] [address] [place] [address] 05/25/2024 John Cartagena Assessments Encounter Date Diagnosis [...] Insured Coverage Start Date Coverage End Date [employer] [facility] [address] [place] [address] [id number] SHASHANK TATE Self - patient is the insured Medical (General) History Medical History History ICD Code Hypothyroidism GI Problems: Depression Sleep apnea CPAP Machine: Yes
--- OUTSIDE RECORDS SUMMARY | 2024-09-27 14:39 | XMS_ITS | Encounter Summary ---
Author Organization [facility] Address [address] [facility] [place] [address] Care Team Providers Care Inventory Coordinator Name Role Phone Kira Heredia MD Unavailable [phone] Unallocated, [facility] Provider Primary Care Provi radha Jasmin Loco DO Unavailable [phone] Encounter Details Date Type Department Care Team (Late st Contact Info) Description 08/31/2024 Orders Only [facility] [address] [place] [address] Kira Heredia MD [address] [place], [place] [id number] Social History Tobacco Use Types Packs/Day Years [...] on filedocumented in this encounter Care Teams Inventory Coordinator Relationship Specialty Start Date End Date Unallocated, [facility] MD Gianluca [address] [place] [address] PCP - General Family Medicine 04/19/24 Kira Heredia MD [address] [place] [id number] Referring Physician Family Medicine 04/19/24 Loco Castellanos DO [address] [address] Referring Physician Neurology 05/17/24 documented as of this encounter
--- OUTSIDE RECORDS SUMMARY | 2024-09-27 14:39 | XMS_ITS | Clinical Summary ---
Author Organization [facility] Address [address] [place] [address] Care Team Providers Care Dope Pourer Name Role Phone Kira Heredia MD Unavailable [phone] Unallocated, [facility] Provider Primary Care Provi radha Varun Castellanostitonorman DO Unavailable [phone] Allergies No known active allergies Medications cholecalciferol [...] Department Care Team Description 08/31/2024 Orders Only [facility] [address] [place] [address] Kira Heredia MD from Last 3 Months Social History Tobacco [...] Anatomical Region Laterality Modality Radiographic Amy ging Kira Heredia MD IMG XR PROCEDURES Final Result from Last [address] [place] [address] [employer] Care Teams Dope Pourer Relationship Specialty Start Date End Date Unallocated, [facility] Gianluca, [address] [place] [address] PCP - General Family Medicine 04/19/24 Kira Heredia MD [address] [place] [address] Referring Physician Family Medicine 04/19/24 Loco Castellanos DO [address] [address] Referring Physician Neurology 05/17/24
--- OUTSIDE RECORDS SUMMARY | 2024-09-27 14:56 | XMS_ITS | CCD ---
Author Organization [facility] Care Team Providers Care Cryptologic Supervisor Name Role Phone NADERER, LUIS ANTONIO A [...] KIRA GARRISON Primary Care Physician Alejandra Hayden Admitting Unavailable Alejandra Hayden A. Attending Unavailable Alejandra Hayden A. Attending Unavailable Alejandra Hayden ADo Admitting Unavailable Kira Garrison MD Unavailable Unallocated , Noms Provider Primary Care Provi [facility] Sandra Castellanos DO Unavailable Alejandra Hayden. Referring Unavailable Ji SIMON Attending Unavailable Alejandra Hayden A. Attending Unavailable Rita Haydend A. Referring Unavailable Teena Haydenamad A. Admitting Unavailable SANDRA CASTELLANOS Attending Unavailable KIRA GARRISON Referring Unavailable JAZLYN WILBURN Attending Unavailable GENOVEVA CARTAGENA Referring Unavailable JAZLYN WILBURN Attending Unavailable GENOVEVA CARTAGENA Referring Unavailable JAZLYN WILBURN Attending Unavailable GENOVEVA CARTAGENA Referring Unavailable JAZLYN WILBURN Attending Unavailable AMADEO GENOVEVA C Referring Unavailable Rita Haydend A. Admitting Unavailable Alejandra Hayden A. Attending Unavailable Alejandra Hayden Attending Unavailable González Sutton Attending UnavailJi Fajardo Attending Unavailable Alejandra Hayden Admitting Unavailable Alejandra Hayden Attending Alejandra Peterson Referring Unavailable Ji SIMON Attending Unavailable Ji SIMON Attending Unavailable González Sutton Attending González Scales Attending Subhaa sebastian Allergies Allergy Classification Reported Allergen(s) Allergy Type Date of Onset Reaction(s) Facility (5 sources) No Known Medication Allergies; Translations: [No Known Medication Allergies] Propensity to adverse reactions (disorder) [facility] Repository Medications Current Medications Medication Drug Class(es) Dates Sig (Normalized) Sig (Original) amylase 802879 unt / lipase 23278 unt / protease [id number] unt delayed release oral capsule (2 sources) Start: 07-17-2024 Creon 36,000 units oral delayed release capsule 2 cap(s), Oral, TID, 360 cap(s), Refill(s) 3, [facility], 170, cm, 07/17/24 13:04:00 EDT, Height/Length Dosing, 101, kg, 07/17/24 13:04:00 EDT, Weight Dosing Start Date: 07/17/24 Status: Ordered Quantity: 360.0 Unit: cap(s) Repeat number: 4 amylase 357650 UNT / lipase 64825 UNT / protease [id number] UNT Delayed Release Oral Capsule [Zenpep] (3 sources) Start: 04-30-2024 Zenpep 60,000 units-189,600 units-252,600 units oral delayed release capsule See Instructions, 300 cap(s), Refill(s) 3, Take 2 caps with each meal and 1 with each snack, [facility], 170, cm, 04/24/24 8:57:00 EST, Height/Length Dosing, 108.6, kg, 04/24/24 8:57:00 EST, Weight Dosing Start Date: 04/30/24 Status: Ordered cholecalciferol 0.05 mg oral capsule (7 sources) Vitamin D Start: 04-23-2024 take 1 capsule by mouth once daily cholecalciferol (Vitamin D-3) 50 MCG (2000 UT) capsule Take 2,000 Units by mouth Daily 04/23/2024 Active cholestyramine resin 4000 mg powder for oral suspension (19 sources) Bile Acid Sequestrant Start: 05-14-2024 take 4 g by mouth in the morning cholestyramine (Questran) 4 GM/DOSE powder Take 4 g by mouth in the morning and 4 g in the evening. Take with meals. 05/14/2024 Active Start: 05-14-2024 take 4 g by mouth twice daily cholestyramine 4 g/9 g Oral Pwdr 4 gm, Oral, BID, 378 gm, Refill(s) 11, [facility], 170, cm, 05/11/24 7:28:00 EST, Height/Length Dosing, 108.6, kg, 05/11/24 7:28:00 EST, Weight Dosing Start Date: 05/14/24 Status: Ordered Quantity: 378.0 Unit: g Repeat number: 12 Start: 04-24-2024 Questran 4 g/9 g oral powder = 1 packet(s), Oral, BID, # 60 EA, Refills(s) 0, Pharmacy: [facility], 170, cm, 04/24/24 8:57:00 EST, Height/Length Dosing, 108.6, kg, 04/24/24 8:57:00 EST, Weight Dosing Start Date: 04/24/24 Status: Ordered Quantity: 60.0 Unit: EA Repeat number: 1 Indications: Melena; Irritable bowel syndrome with diarrhea; Abdominal distension (gaseous); Gastro-esophageal reflux disease without esophagitis; Fish Oils (2 sources) Start: 08-16-2024 Fish Oil Oral, Refill(s) 0 Start Date: 08/16/24 Status: Ordered Repeat number: 1 FLUoxetine 20 mg oral capsule (16 sources) Serotonin Reuptake Inhibitor Start: 05-14-2024 take 1 capsule by mouth once daily FLUoxetine (PROzac) 20 MG capsule Take 20 mg by mouth Daily 05/14/2024 Active Start: 04-24-2024 take 20 mg by mouth once daily Prozac 20 mg, Oral, Daily, Refills(s) 0, Depression Start Date: 04/24/24 Status: Ordered Repeat number: 1 icosapent ethyl 1000 mg oral capsule (16 sources) Start: 04-24-2024 take 1 capsule by mouth twice daily Vascepa 1 g oral capsule gm cap(s), Oral, BID, Refills(s) 0, High cholesterol Start Date: 04/24/24 Status: Ordered Repeat number: 1 Start: 04-20-2024 take 2 capsules by m outh in the morning Vascepa 1 g capsule Take 2 capsules by mouth in the morning and 2 capsules in the evening. Take with meals. 04/20/2024 Active levothyroxine (16 sources) l-Thyroxine Start: 04-24-2024 levothyroxine Daily, Refills(s) 0, Thyroid Start Date: 04/24/24 Status: Ordered Repeat number: 1 Start: 04-24-2024 levothyroxine Daily, Refills(s) 0, Thyroid Start Date: 04/24/24 Status: Ordered Start: 04-24-2024 levothyroxine Daily, Refills(s) 0 Start Date: 04/24/24 Status: Ordered Start: 04-11-2024 take 1 tablet by [facility] once daily levothyroxine (Synthroid, Levoxyl) 50 MCG tablet Take 50 mcg by mouth Daily 04/11/2024 Active meloxicam 15 mg oral tablet (7 sources) Nonsteroidal Anti-inflammatory Drug Start: 05-14-2024 take 1 tablet by mouth once daily Mobic 15 MG tablet Take 15 mg by mouth 1 (one) time each day at the same time 05/14/2024 Active omeprazole 40 mg delayed release oral capsule (11 sources) Proton Pump Inhibitor Start: 05-11-2024 take 1 capsule by mouth twice daily omeprazole 40 mg Cap-DR 40 mg = 1 cap(s), Oral, BID, # 180 cap(s), Refills(s) 3, Pharmacy: [facility], 170, cm, 05/11/24 7:28:00 EST, Height/Length Dosing, 108.6, kg, 05/11/24 7:28:00 EST, Weight Dosing Start Date: 05/11/24 Status: Ordered Quantity: 180.0 Unit: cap(s) Repeat number: 4 60 actuat testosterone 20.25 mg/actuat topical gel (2 sources) Androgen Start: 05-07-2024 AndroGel Pump 20.25 mg/1.25 g (1.62%) transdermal gel = 2 pump, Topical, qAM, # 75 gram, Refills(s) 3, Pharmacy: [facility], 165, cm, 05/07/24 9:19:00 EST, Height/Length Dosing, 108.1, kg, 05/07/24 9:19:00 EST, Weight Dosing Start Date: 05/07/24 Status: Ordered Vitamin D3 50 mcg (2000 intl units) oral tablet, chewable (9 sources) Start: 04-24-2024 take 1 tablet by mouth once daily Vitamin D3 50 mcg (2000 intl units) oral tablet, chewable mcg tab(s), Oral, Daily, Refills(s) 0, Prophylaxis Start Date: 04/24/24 Status: Ordered Repeat number: 1 Start: 04-24-2024 take 1 tablet by katerina [...] Sig (Original) tadalafil 20 mg oral tablet (5 sources) Phosphodiesterase 5 Inhibitor Start: 09-10-2024 take 1 tablet by mouth every hour as needed, then take 1 tablet by mouth every twenty-four hours as needed tadalafil 20 mg Tab 20 mg = 1 tab(s), Oral, As Directed, PRN for erectile dysfunction, Pt to take one tab 1 hour prior to sexual activity. Do not exceed 20mg in 24 hours., # 30 tab(s), Refills(s) 0, Pharmacy: [facility], 165, cm, 09/10/24 15:33:00 EDT, Height/Length Dosing, 108, kg, 09/10/24 15:33:00 EDT, Weight Dosing Start Date: 09/10/24 Status: Ordered Quantity: 30.0 Unit: tab(s) Repeat number: 1 Indications: Male erectile dysfunction, unspecified; Start: 05-07-2024 take 1 tablet by katerina th every hour as needed, then take 1 tablet by mouth every twenty-four hours as needed tadalafil 20 mg Tab 20 mg = 1 tab(s), Oral, As Directed, PRN for erectile dysfunction, Pt to take one tab 1 hour prior to sexual activity. Do not exceed 20mg in 24 hours., # 30 tab(s), Refills(s) 0, Pharmacy: [facility], 165, cm, 05/07/24 9:19:00 EST, Height/Length Dosing, 108.1, kg, 05/07/24 9:19:00 EST, Weight Dosing Start Date: 05/07/24 Status: Ordered Problems Problem Classification Problem Date Documented Da te Episodic/Chronic Deficiency and other anemia (9 sources) Anemia of chronic disease 04-24-2024 Chronic Disorders of lipid metabolism (10 sources) Pure hyperglyceridemia; Translations: [Pure hyperglyceridemia] Onset: 5 Chronic Esophageal disorders (11 sources) Gastroesophageal reflux disease without esophagitis; Translations: [Gastro-esophageal reflux disease without esophagitis] Onset: 5 Chronic Essential hypertension (9 sources) Benign hypertension 04-24-2024 Chronic Gastrointestinal hemorrhage (4 sources) Melena; Translations: [Melena] Onset: 5 Episodic Hyperplasia of prostate (7 sources) Benign prostatic hypertrophy with outflow obstruction; Translations: [Benign prostatic hyperplasia with lower urinary tract symptoms] Onset: 5 Chronic Malaise and fatigue (4 sources) Other fatigue; Translations: [OTHER FATIGUE] Onset: 8 Episodic Miscellaneous mental health disorders (20 sources) Psychosomatic factor in physical condition; Translations: [Psychological and behavioral factors associated with disorders or diseases classified elsewhere] Onset: 5 Chronic Other and unspecified benign neoplasm (4 sources) Polyp of colon; Translations: [Polyp of colon] Onset: 5 Episodic Other connective tissue disease (13 sources) Swelling of hand; Translations: [Other specified soft tissue disorders] Onset: 5 05-15-2024 Episodic Other connective tissue disease (2 sources) Neuralgia; Translations: [Neuralgia and neuritis, unspecified] 05-17-2024 Episodic Other endocrine disorders (2 sources) Testicular hypofunction; Translations: [Testicular hypofunction] Onset: 5 Chronic Other endocrine disorders (5 sources) Male hypogonadism 05-07-2024 Chronic Other gastrointestinal disorders (5 sources) Irritable bowel syndrome with diarrhea; Translations: [Irritable bowel syndrome with diarrhea] Onset: 5 Chronic Other gastrointestinal disorders (2 sources) Swollen abdomen; Translations: [Abdominal distension (gaseous)] Onset: 5 Episodic Other gastrointestinal disorders (9 sources) Abdominal bloating 04-24-2024 Episodic Other gastrointestinal disorders (9 sources) Black feces 04-24-2024 Episodic Other liver diseases (4 sources) Steatosis of liver; Translations: [Fatty (change of) liver, not elsewhere classified] Onset: 5 Chronic Other male genital disorders (6 sources) Acquired buried penis; 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] Onset: 5 Chronic Other male genital disorders (7 sources) Male erectile dysfunction, unspecified; Translations: [Erectile dysfunction] Onset: 5 Chronic Other non-traumatic joint disorders (13 sources) Stiffness of joint of right hand; Translations: [Stiffness of right hand, not elsewhere classified] Onset: 5 05-15-2024 Episodic Other nutritional; endocrine; and metabolic disorders (1 source) Obesity; Translations: [Other obesity due to excess calories] Onset: 5 Chronic Other nutritional; endocrine; and metabolic disorders (9 sources) Obesity caused by energy imbalance 04-24-2024 Chronic Other screening for suspected conditions (not mental disorders or infectious disease) (12 sources) Encounter for screening for malignant neoplasm [...] status] Onset: 5 Episodic Residual codes; unclassified (9 sources) Current drinker 04-24-2024 Episodic Thyroid disorders (5 sources) Hypothyroidism, unspecified; Translations: [HYPOTHYROIDISM UNSPECIFIED] Onset: Chronic Unclassified (5 sources) Patient encounter status 05-07-2024 Results Test Name Value Interpretation Reference Range Facility Ambulatory Visit Summaryon 0 09-14-2024 Ambulatory Visit Summary Ambulatory Visit Summary TATE ENCARNACION :1970 Visit Date:09/14/2024 Ambulatory Visit Instructions Your Care Team Attending Physician - AURORA ROMERO, Ji Be Primary Care Physician - MELI HORNER, KIRA Naik This Is Your Medications List cholecalciferol (Vitamin D3 50 mcg (2000 intl units) oral tablet, chewable) cholestyramine (Questran 4 g/9 g oral powder) cholestyramine (cholestyramine 4 g/9 g Oral Pwdr) fluoxetine (Prozac) icosapent (Vascepa 1 g oral capsule) levothyroxine omega-3 polyunsaturated fatty acids (Fish Oil) omeprazole (omeprazole 40 mg Cap-DR) pancrelipase (Creon 36,000 units oral delayed release capsule) tadalafil (tadalafil 20 mg Tab) Procedures Performed Colonoscopy (05/11/2024), Esophagogastroduodenoscopy (05/11/2024). Medications What How Much When Why Instructions Unchanged cholecalciferol (Vitamin D3 50 mcg (2000 intl units) oral tablet, chewable) By Mouth Every day Unchanged cholestyramine (cholestyramine 4 g/ 9 g Oral Pwdr) 4 Gram By Mouth 2 times a day Unchanged cholestyramine (Questran 4 g/ 9 g oral powder) 1 Packets By Mouth 2 times a day Irritable bowel syndrome with diarrhea Bloating Black stool Chronic GERD Unchanged fluoxetine (Prozac) 20 Milligram By Mouth Every day Unchanged icosapent (Vascepa 1 g oral capsule) By Mouth 2 times a day Unchanged levothyroxine Every day Unchanged omega-3 polyunsaturated fatty acids (Fish Oil) By Mouth Unchanged omeprazole (omeprazole 40 mg Cap-DR) 1 Capsules By Mouth 2 times a day Unchanged pancrelipase (Creon 36,000 units oral delayed release capsule) 2 Capsules By Mouth 3 times a day Unchanged tadalafil (tadalafil 20 mg Tab) 1 Tablets By Mouth As Directed as needed for for erectile dysfunction ED (erectile dysfunction) Pt to take one tab 1 hour prior to sexual activity. Do not exceed 20mg in 24 hours. Allergies No Known Allergies No Known Medication [...] you for choosing us for your care. [facility] Ambulatory Visit Summaryon 0 09-10-2024 Ambulatory Visit Summary Ambulatory Visit Summary TATE ENCARNACION :1970 Visit Date:09/10/2024 Ambulatory Visit Instructions Your Diagnosis Hypogonadism male ED (erectile dysfunction) BPH with urinary obstruction Screening PSA (prostate specific antigen) Your Care Team Attending Physician - AURORA ROMERO, Ji Be Primary Care Physician - KIRA GARRISON CNP This Is Your Medications List tadalafil (tadalafil 20 mg Tab) Contact prescribing physician if questions or concerns cholecalciferol (Vitamin D3 50 mcg (2000 intl units) oral tablet, chewable) cholestyramine (Questran 4 g/9 g oral powder) cholestyramine (cholestyramine 4 g/9 g Oral Pwdr) fluoxetine (Prozac) icosapent (Vascepa 1 g oral capsule) levothyroxine omega-3 polyunsaturated fatty acids (Fish Oil) omeprazole (omeprazole 40 mg Woody-DR) pancrelipase (Creon 36,000 units oral delayed release capsule) Procedures Performed Colonoscopy (05/11/2024), Esophagogastroduodenoscopy (05/11/2024). Discharge Vitals Temperature (Temporal Artery) 37 ???C Heart Rate (Peripheral) 69 Respiratory Rate 18 Blood Pressure 135/87 Height 165 cm Height 65 in Weight 108 kg Weight 238.099 lb BMI 39.67 What to do next You Need to Schedule the Following Appointments Follow Up with AURORA ROMERO, Ji Be, URL When: Comments: 4 mos w/ T level Where: [facility] [address], [place] [address] [phone] Medications What How Much When Why Instructions Unchanged tadalafil (tadalafil 20 mg Tab) 1 Tablets By Mouth As Directed as needed for for erectile dysfunction ED (erectile dysfunction) Pt to take one tab 1 hour prior to sexual activity. Do not exceed 20mg in 24 hours. Pickup at [facility] Unchanged cholecalciferol (Vitamin D3 50 mcg [...] prescribing physician if questions or concerns Unchanged omega-3 polyunsaturated fatty acids (Fish Oil) By Mouth Contact prescribing physician if questions or concerns Unchanged omeprazole (omeprazole 40 mg Cap-DR) 1 Capsules By Mouth 2 times a day Contact prescribing physician if questions or concerns Unchanged pancrelipase (Creon 36,000 units oral delayed release capsule) 2 Capsules By Mouth 3 times a day Contact prescribing physician if questions or concerns Pharmacy Information [facility]: [address] [place], [place] [phone] Allergies No Known Allergies No Known Medication [...] men age and the testicles make less testosteron (more content not included)... Normal [facility] Urology Office/Clinic Noteon 09-10-2024 Urology Office/Clinic Note Urology Office/Clinic Note Chief Complaint 4 month with T-level and PSA HPI Staff 4 month f/u with PSA and testosterone level. Dx: ED, hypogonadism male, screening PSA, BPH with urinary obstruction and acquired buried penis Cialis 20mg prn and Androgel 2 pumps daily PSA done 08/11/24 - 0.44 Testosterone level done 08/11/24 - 168 IPSS score is 7 today. Urinary frequency about half the time. Drinks large amounts of water daily. Denies all other urinary complaints. History of Present Illness Tests reviewed: reviewed UA, PSA, T level I have reviewed the previous health record information and history for this patient from Dr. Simon. I have reviewed and verified the staff HPI to be accurate for this encounter. Review of Systems PHQ Score Initial Depression Screen Score: 0 SCORE ROS - Provider Constitutional: denies weight loss, denies hot flashes. Eyes: denies eye problems. Gastrointestinal: denies nausea, denies vomiting. Cardiovascular: denies chest pain or angina. Integumentary: no dryness Musculoskeletal: denies musculoskeletal symptoms. ENMT: denies otolaryngeal symptoms. Respiratory: no shortness of breath. Heme/Lymph: denies easy bleeding tendency, denies easy bruising tendency. Psychiatric: no confusion, no anxiety. Genitourinary: See HPI. Physical Exam Vitals & Measurements T: 37 ???C(Temporal Artery) HR: 69(Peripheral) RR: 18 BP: 135/87 HT: 165 cm HT: 65 in WT: 238.099 lb WT: 108 kg BMI: 39.67 General Appearance: alert, no distress, well nourished, well developed male. Assessment/Plan 1. Hypogonadism male (E29.1: Testicular hypofunction) Testosterone level (ref range 264- 916): 04/24/24 - 194 08/11/22 - 168 Recent T level is low. States he is now receiving T 200 mg inj q2wks per Kira Garrison NP. Has received 6 inj so far and is due for another this . States he never used Androgel despite being rx'd this at last OV. Used [facility] but it was still cost prohibitive. Reports he continues experiencing fatigue. Advised pt two separate providers cannot manage TRT to ensure the pt's safety is maintained. Pt prefers to follow with our office for TRT. Recommended pt to have prolactin level checked to determine any or r/o contributing factors. Pt agrees with plan. -Prolactin level to be drawn IO -T IM 300 mg inj to be given in our office 09/14/24 -Then start T 500 mg inj q4wks (rx will need sent on at time of inj on 09/14) -F/u in 4 mos w/ T level 2. ED (erectile dysfunction) (N52.9: Male erectile dysfunction, unspecified) SANDRA 18 (13). Started on Cialis 20mg prn at prior OV due to difficulty achieving an erection and early flaccidity. Has had improvement with Cialis. -Cont Cialis wo changes. Refills sent to ERICK[facility] Simon. 3. BPH with urinary obstruction (N40.1: Benign prostatic hyperplasia with lower urinary tract symptoms) IPSS 7 (8). UA today negative for blood and infection. Not taking any BPH meds. Not voicing any urinary habit complaints. 4. Screening PSA (prostate specific antigen) (Z12.5: Encounter for screening for malignant neoplasm of prostate) PSA 08/11/24 - 0.44 No fam hx of prostate cancer. PSA is low. Will cont to monitor. Follow-up With When Contact Information AURORA ROMERO, Ji Be, URL [facility] [address], [place] [address] [phone] Additional Instructions: 4 mos w/ T level Patient Education Hypogonadism, Male I, Nirmala Lama, personally scribed for Dr. Simon on 09/10/2024 16:16:02. . Documentation recorded by the scribe, Nirmala Lama, accurately reflects the services(s) I performed and decisions made by me. Authenticated by Dr. Simon on 09/10/2024 16:19:16. Problem List/Past Medical History Ongoing Acquired buried [...] intl units) oral tablet, chewable, Oral, Daily Von (more content not included)... Normal [facility] Comment on above: Result Comment: Elec tronically Signed By: Ji SIMON MD\.br\Date and Time Signed: 09/10/24 16:19 EDT\.br\Electronically Co-Signed By: Nirmala Lama\.br\Date and Time Co-Signed: 09/10/24 16:16 EDT Reminderson 08-21-2024 Reminders Reminders From: Cheryl Christian To: Gina [...] schedule all three at the same time. Normal [facility] Gastroenterology Office/Clin ic Noteon 08-16-2024 Gastroenterology Office/Clinic Note Gastroenterology Office/Clinic Note Chief Complaint Diarrhea improved HPI Staff [...] first-degree relative, we will send him to [facility] for genetic counseling the based on that we will decide if he needs annual imaging for screening I, Syeda Chavez, personally scribed for Claudio Junsada on 08/16/2024 13:49:32. . Follow-up No qualifying [...] vaccine, inactivated - Not Given Patient Refuses Normal [facility] Comment on above: Result Comment: Elec tronically Signed By: Lesley ROMERO, González Cadena\.br\Date and Time Signed: 08/16/24 14:02 EDT\.br\Electronically Co-Signed By: Syeda Chavez MA\.br\Date and Time Co-Signed: 08/16/24 13:53 EDT Ambulatory Visit Summaryon 0 07-17-2024 Ambulatory Visit Summary Ambulatory Visit Summary TATE ENCARNACION :1970 Visit Date:07/17/2024 Ambulatory Visit Instructions Your Diagnosis Irritable bowel syndrome with diarrhea Blood in stool Fatty liver Your Care Team Attending Physician - González Sutton MD Primary Care Physician - KIRA GARRISON [...] ROMERO, Ji Be Where: [facility] of [address] [address]- Medications What How Much When Why Instructions Changed pancrelipase (Creon 36,000 units oral delayed release capsule) 2 Capsules By Mouth 3 times a day Pickup at [facility] Unchanged cholecalciferol (Vitamin D3 50 mcg [...] physician if questions or concerns Pharmacy Information [facility]: [address] [place], [place] [phone] Allergies No Known Allergies No Known Medication [...] for choosing us for your care. Normal [facility] Gastroenterology Office/Clin ic Noteon 07-17-2024 Gastroenterology Office/Clinic Note Gastroenterology Office/Clinic Note Chief Complaint diarrhea and blood in [...] Follow-up With When Contact Information Lesley ROMERO, TRUDY [facility] In 6 weeks [address] [facility], [address] [address] [phone] Additional Instructions: Problem List/Past Medical History Ongoing [...] vaccine, inactivated - Not Given Patient Refuses [facility] Comment on above: Result Comment: Elec tronically Signed By: Lesley ROMERO, González Cadena\.br\Date and Time Signed: 07/17/24 13:53 EDT\.br\Electronically Co-Signed By: Syeda Chavez MA\.br\Date and Time Co-Signed: 07/17/24 13:51 EDT Reminderson 06-05-2024 Reminders Reminders From: Glo Hilario I To: [facility] - Reminders/Recalls; Sent: 06/05/2024 08:25:46 EST Show up: 03/11/2031 08:25:00 EST Subject: Colonoscopy recall Due Date/Time: 05/11/2031 08:25:00 EST Reminder/Recall [address] Sutton 05/11/24 [facility] Gastroenterology Office/Clin ic Noteon 05-21-2024 Gastroenterology [...] recorded by (more content not included)... Normal [facility] Comment on above: Result Comment: Elec tronically Signed By: Lesley ROMERO, González Cadena\.br\Date and Time Signed: 05/21/24 09:44 EST\.br\Electronically Co-Signed By: Syeda Chavez MA\.br\Date and Time Co-Signed: 05/21/24 09:42 EST Surgical Pathology Reporton 05-17-2024 Surgical Pathology Report [facility] [address] [place] [address]- Surgical Pathology Report Collected Date/Time: 05/11/2024 08:38 [...] is entirely submitted in one cassette. (DC) DC:[facility] Microscopic Description Microscopic examination performed unless gross only specified. This report was transcribed using voice recognition technology and might contain unintended computerized roof cement and paint maker errors. The use of one or more reagents in the above tests is regulated as an analyte specific reagent (ASR). The test or tests are ordered following initial H&E microscopic examination. The performance characteristics were determined by the Laboratory of [facility]. They have not been cleared or approved by the US Food and Drug Administration. The FDA has determined that such clearance or approval is not necessary. These tests are used for clinical purposes. They should not be regarded as investigational or for research. Appropriate positive and negative co (more content not included)... Normal [facility] Comment on above: Performed By: #### 4 [id number] #### [facility] Laboratory [address] [place] [address] Discharge Instructionson Discharge Instructions Discharge Instructions TATE [...] EST With: Lesley ROMERO, González Cadena Where: [facility] [address] [place] [address]- Tuesday 9:45 AM EDT With: AURORA ROMERO, Ji Be Where: [facility] [address] [place] [address] [place] [address]- Medications What How Much When Why Instructions Next Dose New omeprazole (omeprazole 40 mg Cap-DR) 1 Capsules By Mouth 2 times a day Refills: 3 Pickup at [facility] Unchanged cholecalciferol (Vitamin D3 50 mcg [...] a day (in the morning) Pharmacy Information [facility]: [address] [place] [id number] [phone] Test Results No qualifying data available. Allergies [...] tarry stool (more content not included)... Normal [facility] Comment on above: Result Comment: Elec [...] EST With: Lesley ROMERO, González Cadena Where: [facility] [address] [place] [address] [place] [address]- Tuesday 9:45 AM EDT With: AURORA ROMERO, Ji Be Where: [facility] [address] [place] [address]- Medications What How Much When Why Instructions Next Dose New omeprazole (omeprazole 40 mg Cap-DR) 1 Capsules By Mouth 2 times a day Refills: 3 Pickup at [facility] Unchanged cholecalciferol (Vitamin D3 50 mcg [...] a day (in the morning) Pharmacy Information [facility]: [address] [place] [id number] [phone] Test Results No qualifying data available. Allergies [...] malt extra (more content not included)... Normal [facility] Comment on above: Result Comment: Elec tronically Signed By: Cy SADLER, Mariama\.br\Date and Time Signed: 05/11/24 09:30 EST Main OR Intraoperative Recor don 05-11-2024 Main OR Intraoperative Record Main OR Intraoperative Record IntraOp Document Type FT Summary Primary Physician: Lesley ROMERO, González Cadena Finalized Date/Time: 05/11/24 10:41:05 Pt. Name: SHASHANKTATE./Sex: 1970 Male Med Rec #: [id number] Physician: Jackelyn ROMERO, Alejandra Kelly Financial #: [id number] Pt. Type: O Room/Bed: / Admit/Disch: 05/11/24 [...] Negrete RN, Sheldon Martines Role Performed Anesthesiologist Reel Film Inspector - Primary Scrub - Primary Pipe And Boiler Covers Supervisor Time In 05/11/24 08:30:00 05/11/24 08:30:00 05/11/24 [...] Participants Becky Negrete RN, Sparks, Micala E, Sarmini MD, González Cadena Time [...] and tissue Entry 1 Skin Integrity Intact, Yantis, Warm, & Skin Abnormality No Dry Outcomes Met? Yes Last Modified By: Becky Negrete RN 05/11/24 09:06:34 Post-Care Text: The patient is free from signs and sym (more content not included)... Normal [facility] Main OR PACU II Recordon Main OR PACU II Record Main OR PACU II Record PACU Phase II Document Type FT Summary Primary Physician: González Sutton MD Finalized Date/Time: 05/11/24 10:02:45 Pt. Name: TATE ENCARNACION/Sex: 1970 Male Med Rec #: [id number] Physician: Alejandra Hayden MD Financial #: [id number] Pt. Type: O Room/Bed: / Admit/Disch: 05/11/24 [...] Signed By: Mariama Benoit RN 05/11/24 10:02 [facility] Main OR Preoperative Recordo n 05-11-2024 Main OR Preoperative Record Main OR Preoperative Record Holding Area Document Type FT Summary Primary Physician: González Sutton MD Finalized Date/Time: 05/11/24 07:18:36 Pt. Name: SHASHANKTATE /Sex: 1970 Male Med Rec #: [id number] Physician: Alejandra Hayden MD Financial #: [id number] Pt. 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 This Is Your Medications List tadalafil (tadalafil [...] Appointments Tuesday 8:15 AM EST With: Where: [facility] Tuesday 9:00 AM EST With: Lesley ROMERO, González Cadena Where: [facility] [address] [place] [address]- Tuesday 9:45 AM EDT With: Ji SIMON MD Where: [facility] [address] [place] [address]- You Need to Schedule the Following Appointments Follow Up with Ji SIMON MD, URL When: Comments: 4 mos w/ PSA and T level Where: [facility] [address] [place] [phone] Medications What How Much When Why Instructions New tadalafil (tadalafil 20 mg Tab) 1 Tablets By Mouth As Directed as needed for for erectile dysfunction Pt to take one tab 1 hour prior to sexual activity. Do not exceed 20mg in 24 hours. Pickup at [facility] New testosterone (AndroGel Pump 20.25 mg/ 1.25 g (1.62%) transdermal gel) 2 Pump Topical Once a day (in the morning) Refills: 3 Pickup at [facility] Unchanged cholecalciferol (Vitamin D3 50 mcg [...] physician if questions or concerns Pharmacy Information [facility]: [address] [place], [place] [id number] [phone] Allergies No Known Allergies No Known Medication [...] men (more content not included)... Normal [facility] Urology Office/Clinic Noteon 05-07-2024 Urology Office/Clinic [...] buried peni (more content not included)... Normal [facility] Comment on above: Result Comment: Elec tronically Signed By: Ji SIMON MD\.br\Date and Time Signed: 05/07/24 10:05 EST\.br\Electronically Co-Signed By: Nirmala Lama\.br\Date and Time Co-Signed: 05/07/24 09:58 EST Calprotectin, Fecalon 2024 Calprotectin (Stl) [Mass/Mass] 15 mcg/gm Invalid Interpretation Code 0-120 [facility] Comment on above: Result Comment: Conc entration Interpretation Follow-Up < 5 - 50 ug/g Normal None >50 -120 ug/g Borderline Re-evaluate in 4-6 weeks >120 ug/g Abnormal Repeat as clinically indicated Performed at: [facility] [address] [place], [place] [id number] MD Alfredo Green Performed By: #### 1 [id number] #### [facility] [address] [place] [address] Pancreatic Elastase, Fecalon 04-28-2024 Elastase.pancreatic (Stl) [Mass/Mass] 9 Low >200 [facility] Comment on above: Result Comment: Nicole re Pancreatic Insufficiency: <100 Moderate Pancreatic Insufficiency: 100 - 200 Normal: >200 Performed at: [facility] [address] [place], [place] [id number] MD Alfredo Green Performed By: #### 1 [id number] ####[facility] [address] [place] [address] US Abdomen, Limitedon 2024 US Abdomen, Limited [...] MD Transcribed by: MARIA C Technologist: DEONNA, Eric [facility] Celiac Disease Comprehensive on 04-25-2024 Endomysium IgA Ql (S) Negative Invalid Interpretation Code Negative [facility] Comment on above: Result Comment: Seru m is slightly lipemic. Performed By: #### 1 [id number] #### [facility] [address] [place] [address] Gliadin peptide IgA Qn (S) 4 unit(s) Invalid Interpretation Code 0 [facility] Comment on above: Result Comment: Nega tive 0 - 19 Weak Positive 20 - 30 Moderate to Strong Positive >30 Performed By: #### 1 [id number] #### [facility] [address] [place] [address] Gliadin peptide IgG Qn (S) 2 unit(s) Invalid Interpretation Code 0 [facility] Comment on above: Result Comment: Nega tive 0 - 19 Weak Positive 20 - 30 Moderate to Strong Positive >30 Performed By: #### 1 [id number] #### [facility] [address] [place] [address] IgA [Mass/Vol] 213 mg/dL Invalid Interpretation Code 90-386 [facility] Comment on above: Result Comment: [facility]f [facility] at: [facility] [address] [place], [place] [id number] PhD Franklin Pollard Performed By: #### 1 [id number] #### [facility] [address] [place] [address] tTG IgA Qn (S) <2 Invalid Interpretation Code 0-3 [facility] Comment on above: Result Comment: Nega tive 0 - 3 Weak Positive 4 - 10 Positive >10 Tissue Transglutaminase (tTG) has been identified as the endomysial antigen. Studies have demonstr- ated that endomysial IgA antibodies have over 99% specificity for gluten sensitive enteropathy. Performed By: #### 1 [id number] #### [facility] [address] [place] [address] tTG IgG Qn (S) <2 Invalid Interpretation Code 0-5 [facility] Comment on above: Result Comment: Nega tive 0 - 5 Weak Positive 6 - 9 Positive >9 Performed By: #### 1 [id number] #### [facility] [address] [place] [address] Testost Totalon 04-25-2024 Testosterone [Mass/Vol] 194 ng/dL Low 264-916 [facility] Comment on above: Result Comment: Adul t male reference interval is based on a population of healthy nonobese males (BMI <30) between 19 and 39 years old. Mildred et.al. JCEM 2017,102;1577-2548. PMID: [id number]. Performed at: [facility] [address] [place], [place] [id number] PhD Franklin Pollard Performed By: #### 2 [id number] #### [facility] [address] [place] [address] Ambulatory Visit Summaryon 0 04-24-2024 Ambulatory Visit [...] EST With: Jackelyn ROMERO, Alejandra Kelly Where: [facility] [address] [place] [address] [place], [place] [phone]- You Need to Complete the Following C-Reactive [...] Black stool Chronic GERD Decreased sexual desire, pp_set_radiology_subspecialty , [facility] Medications What How Much When Why Instructions New cholestyramine (Questran 4 g/ 9 g oral powder) 1 Packets By Mouth 2 times a day Irritable bowel syndrome with diarrhea Bloating Black stool Chronic GERD Pickup at [facility] Unchanged cholecalciferol (Vitamin D3 50 mcg [...] physician if questions or concerns Pharmacy Information [facility]: [address] [place], [place] [id number] [phone] Medications and Immunizations Administered Not Given influenza [...] for choosing us for your care. Normal [facility] CHEMISTRYOrdered By: SYSTEM SYSTEM on 04-24-2024 CRP [Mass/Vol] 0.2 mg/dL Normal <=1.9mg/dL Remisol Chem CRPon 04-24-2024 CRP [Mass/Vol] 0.2 mg/dL Normal <=1.9 [facility] Comment on above: Performed By: #### 2 [id number] #### [facility] [address] [place] [address] Gastroenterology Office/Clin ic Noteon 04-24-2024 Gastroenterology Office/Clinic [...] BID, # 60 EA, Refills(s) 0, Pharmacy: [facility], 170, cm, 04/24/24 8:57:00 EST, Height/Length Dosing, 108.6, kg, 04/24/24 8:57:00 EST, Weight Dosing C-Reactive Protein Calprotectin, Fecal Celiac Disease Comprehensive Colonoscopy (Hospital Procedure) EGD Endoscopy (Hospital Procedure) IgA, Quant. Pancreatic Elastase, Fecal Pancreatic Elastase, Fecal Testosterone Level Total US Abdomen, Limited 2. Bloating (R14.0: Abdominal distension (gaseous)) Ordered: cholestyramine, = 1 packet(s), Oral, BID, # 60 EA, Refills(s) 0, Pharmacy: [facility], 170, cm, 04/24/24 8:57:00 EST, Height/Length Dosing, 108.6, kg, 04/24/24 8:57:00 EST, Weight Dosing C-Reactive Protein Calprotectin, Fecal Celiac Disease Comprehensive Colonoscopy (Hospital Procedure) EGD Endoscopy (Hospital Procedure) IgA, Quant. Pancreatic Elastase, Fecal Pancreatic Elastase, Fecal Testosterone Level Total US Abdomen, Limited 3. Black stool (K92.1: Melena) Ordered: cholestyramine, = 1 packet(s), Oral, BID, # 60 EA, Refills(s) 0, Pharmacy: [facility], 170, cm, 04/24/24 8:57:00 EST, Height/Length [...] BID, # 60 EA, Refills(s) 0, Pharmacy: [facility], 170, cm, 04/24/24 8:57:00 EST, Height/Length Dosing, 108.6, kg, 04/24/24 8:57:00 EST, Weight Dosing C-Reactive Protein Calprotectin, Fecal Celiac Disease Comprehensive Colonoscopy (Hospital Procedure) EGD Endoscopy (Hospital Procedure) IgA, Quant. Pancreatic Elastase, Fecal Pancreatic Elastase, Fecal Testosterone Level Total US Abdomen, Limited 5. Decreased sexual desire (F52.0: Hypoactive sexual desire disorder) [place] [facility] [place] Pancreatic Elastase, Fecal Testosterone Level Total US Abdomen, Limited 6. Alcohol drinker (Z78.9: Other specified health status) 7. Stress-related physiological response affecting medical condition (F54: Psychological and behavioral factors associated with disorders or diseases classified elsewhere) 8. High triglycerides (E78.1: Pure hyperglyceridemia) 9. Obesity due to excess calories (E66.09: Ot (more content not included)... Normal [facility] Comment on above: Result Comment: Elec tronically Signed By: Jackelyn ROMERO, Alejandra Kelly\.br\Date and Time Signed: 04/24/24 09:30 EST FREE T3on 03-15-2018 T3 free mass conc 3.10 pg/mL Normal 2.77-5.27 [facility] Comment on above: Performed By: #### B MP, LIVER, FT3, LIPID, PSASC, TSH, DLDL ####[facility] Ez[address] FREE T4on 03-15-2018 T4 free mass conc 0.88 ng/dL Normal 0.78-2.19 [facility] Comment on above: Performed By: #### B MP, LIVER, FT3, LIPID, PSASC, TSH, DLDL ####[facility] Pyyr[address] TSHon 03-15-2018 Thyrotropin Qn 7.705 uIU/mL Critically high 0.470-4.680 [facility] Comment on above: Performed By: #### B MP, LIVER, FT3, LIPID, PSASC, TSH, DLDL ####[facility] Ef[address] Thyrotropin Qn SEE BELOW Normal [facility] Comment on above: Result Comment: <0.3 4 UIU/ml HYPERTHYROID 0.34-5.60 UIU/ml EUTHYROID >5.60 UIU/ml HYPOTHYROID Performed By: #### B MP, LIVER, FT3, LIPID, PSASC, TSH, DLDL ####[facility] Un[address] [place] TESTOSTERONE, TOTALon 2017 Testosterone [Mass/volume] in Serum or Plasma 314 ng/dL Normal 264-916 [facility] Comment on above: Result Comment: Adul t male reference interval is based on a population ofhealthy nonobese males (BMI <30) between 19 and 39 years old.gus Levy.al. JCEM 2017,102;2942-2416. PMID: [id number]. Performed By: #### B MP, LIVER, FT3, LIPID, PSASC, TSH, DLDL ####[facility] Rtojo[address]afes[address] [place] FREE T3on 01-02-2018 T3 free mass conc 2.98 pg/mL Normal 2.77-5.27 [facility] Comment on above: Performed By: #### B MP, LIVER, FT3, LIPID, PSASC, TSH, DLDL ####[facility] N[address]oco[address] [place] FREE T4on 01-02-2018 T4 free mass conc 0.89 ng/dL Normal 0.78-2.19 [facility] Comment on above: Performed By: #### B MP, LIVER, FT3, LIPID, PSASC, TSH, DLDL ####[facility] Nk[address]us[address] [place] TSHon 01-02-2018 Thyrotropin Qn 5.999 uIU/mL Critically high 0.470-4.680 [facility] Comment on above: Performed By: #### B MP, LIVER, FT3, LIPID, PSASC, TSH, DLDL ####[facility] E[address]rvs[address] Thyrotropin Qn SEE BELOW Normal [facility] Comment on above: Result Comment: <0.3 4 UIU/ml HYPERTHYROID 0.34-5.60 UIU/ml EUTHYROID >5.60 UIU/ml HYPOTHYROID Performed By: #### B MP, LIVER, FT3, LIPID, PSASC, TSH, DLDL ####[facility] Zm[address]utjijt[address] [place] CBC AUTO DIFFon 09-14-2017 Basophils Auto #/vol (Bld) 0.1 103/ul Normal 0.0-0.1 [facility] Comment on above: Performed By: #### C BC ####[facility] [address] [place] [address] [place] Basophils/100 WBC Auto (Bld) 0.8 % Normal 0.2-2.0 [facility] Comment on above: Performed By: #### C BC ####[facility] [address] [place] [address] [place] Eosinophils Auto #/vol (Bld) 0.1 103/ul Normal 0.0-0.7 [facility] Comment on above: Performed By: #### C BC ####[facility] [address] [place] [address] [place] Eosinophils/100 WBC Auto (Bld) 1.4 % Normal 0.9-7.0 [facility] Comment on above: Performed By: #### C BC ####[facility] [address] [place] [address] [place] Erythrocyte distribution width Auto Ratio (RBC) 13.2 % Normal 11.0-15.0 [facility] Comment on above: Performed By: #### C BC ####[facility] [address] [place] [address] [place] Hematocrit Auto Volume Fraction (Bld) 43.7 % Normal 42.0-54.0 [facility] Comment on above: Performed By: #### C BC ####[facility] [address] [place] [address] [place] Hemoglobin mass conc (Bld) 15.2 g/dL Normal 14.0-18.0 [facility] Comment on above: Performed By: #### C BC ####[facility] [address] [place] [address] [place] IG # 0.05 10e3/ul Critically high 0.00-0.03 [facility] Comment on above: Performed By: #### C BC ####[facility] [address] [place] [address] [place] IG % 0.7 % Critically high 0.0-0.5 [facility] Comment on above: Performed By: #### C BC ####[facility] [address] [place] [address] [place] Lymphocytes Auto #/vol (Bld) 1.7 103/ul Normal 1.2-3.8 [facility] Comment on above: Performed By: #### C BC ####[facility] [address] [place] [address] [place] Lymphocytes/100 WBC Auto (Bld) 23.7 % Normal 20.5-60.0 [facility] Comment on above: Performed By: #### C BC ####[facility] [address] [place] [address] [place] MANUAL DIFF REQ NO Normal [facility] Comment on above: Performed By: #### C BC ####[facility] [address] [place] [address] [place] MCH Auto Entitic mass (RBC) 33.8 pg Normal 25.9-34.0 [facility] Comment on above: Performed By: #### C BC ####[facility] [address] [place] [address] [place] MCHC Auto mass conc (RBC) 34.8 g/dL Normal 29.9-35.2 [facility] Comment on above: Performed By: #### C BC ####[facility] [address] [place] [address] [place] MCV Auto Entitic volume (RBC) 97.1 fL Critically high 80.0-94.0 [facility] Comment on above: Performed By: #### C BC ####[facility] [address] [place], [place] [address] Monocytes Auto #/vol (Bld) 0.5 103/ul Normal 0.3-0.8 [facility] Comment on above: Performed By: #### C BC ####[facility] [address] [place], [place] [address] Monocytes/100 WBC Auto (Bld) 7.0 % Normal 1.7-12.0 [facility] Comment on above: Performed By: #### C BC ####[facility] [address] [place], [place] [address] Neutrophils Auto #/vol (Bld) 4.7 103/ul Normal 1.4-6.5 [facility] Comment on above: Performed By: #### C BC ####[facility] [address] [place], [place] [address] Neutrophils/100 WBC Auto (Bld) 66.4 % Normal 43.0-75.0 [facility] Comment on above: Performed By: #### C BC ####[facility] [address] [place], [place] [address] Platelet mean volume Auto Entitic volume (Bld) 10.7 fL Normal 9.5-13.5 [facility] Comment on above: Performed By: #### C BC ####[facility] [address] [place], [place] [address] Platelets Auto #/vol (Bld) 223 103/ul Normal 150-450 [facility] Comment on above: Performed By: #### C BC ####[facility] [address] [place], [place] [address] RBC Auto #/vol (Bld) 4.50 106/ul Critically low 4.70-6.10 [facility] Comment on above: Performed By: #### C BC ####[facility] T[address] [place] WBC Auto #/vol (Bld) 7.1 103/ul Normal 4.0-11.0 [facility] Comment on above: Performed By: #### C BC ####[facility] O[address] [place] DIRECT LDLon 09-14-2017 Cholesterol in LDL mass conc SEE BELOW Normal [facility] Comment on above: Result Comment: <100 mg/dl OPTIMAL 100 - 129 mg/dl NEAR OR ABOVE OPTIMAL 130 - 159 mg/dl BORDERLINE HIGH 160 - 189 mg/dl HIGH >190 mg/dl VERY HIGH Performed By: #### B MP, LIVER, FT3, LIPID, PSASC, TSH, DLDL ####[facility] Vec[address]so[address] [place] Cholesterol in LDL mass conc 45 mg/dL Normal [facility] Comment on above: Performed By: #### B MP, LIVER, FT3, LIPID, PSASC, TSH, DLDL ####[facility] [address] [place] FREE T3on 09-14-2017 T3 free mass conc 4.33 pg/mL Normal 2.77-5.27 [facility] Comment on above: Performed By: #### B MP, LIVER, FT3, LIPID, PSASC, TSH, DLDL ####[facility] K[address] [place] FREE T4on 09-14-2017 T4 free mass conc 0.67 ng/dL Critically low 0.78-2.19 [facility] Comment on above: Performed By: #### F T4 ####[facility] [address] [place] GLYCOHEMOGLOBIN A1Con 2017 Glucose mass conc 108 mg/dL Normal [facility] Comment on above: Performed By: #### A 1C ####[facility] Uptldclfpv0475 [address] [place] Hemoglobin A1c/Hemoglobin.tota l mass fraction (Bld) 5.4 % Normal <=6.0 [facility] Comment on above: Performed By: #### A 1C ####[facility] Dajejeaxvh3538 [address] [place] LIPID PROFILEon 09-14-2017 CHOL-HDL RATIO NORM SEE BELOW Normal [facility] Comment on above: Result Comment: 3.3 - 4.4 LOW RISK 4.4 - 7.1 AVERAGE RISK 7.1 - 11.0 MODERATE RISK >11.0 HIGH RISK Performed By: #### B MP, LIVER, FT3, LIPID, PSASC, TSH, DLDL ####[facility] Ilcdlxyaxn8662 [address] [place] Cholesterol in HDL mass conc 34 mg/dL Normal [facility] Comment on above: Result Comment: A po sitive bias may be seen with a triglyceride level over 600 mg/dL Performed By: #### B MP, LIVER, FT3, LIPID, PSASC, TSH, DLDL ####[facility] Quovlhokzh7105 [address] [place] Cholesterol in HDL mass conc > or = 60 mg/dl - LOW CARDIOVASCULAR RISK <40 mg/dl - HIGH CARDIOVASCULAR RISK Normal [facility] Comment on above: Performed By: #### B MP, LIVER, FT3, LIPID, PSASC, TSH, DLDL ####[facility] [address] [place] [id number] Cholesterol mass conc 199 mg/dL Normal <=200 [facility] Comment on above: Performed By: #### B MP, LIVER, FT3, LIPID, PSASC, TSH, DLDL ####[facility] Rflhlokozl4332 [address] [place] Cholesterol.total/C holesterol in HDL mass ratio 6.0 {ratio} Normal [facility] Comment on above: Performed By: #### B MP, LIVER, FT3, LIPID, PSASC, TSH, DLDL ####[facility] Fpkkanggre[address] [place] [id number] Triglyceride mass conc 1177 mg/dL Critically high <=150 [facility] Comment on above: Performed By: #### B MP, LIVER, FT3, LIPID, PSASC, TSH, DLDL ####[facility] Mlsrxjcdhe5[address] [place] [id number] [place] LIVER PROFILEon 09-14-2017 Albumin mass conc 4.6 g/dL Normal 3.5-5.0 [facility] Comment on above: Performed By: #### B MP, LIVER, FT3, LIPID, PSASC, TSH, DLDL ####[facility] Puqcbxgnoi5557 [address] [place] Albumin/Globulin mass ratio 1.5 {ratio} Normal [facility] Comment on above: Performed By: #### B MP, LIVER, FT3, LIPID, PSASC, TSH, DLDL ####[facility] T[address]unmeqf[address] [place] [id number] ALP enzyme act/vol 66 U/L Normal 38-126 [facility] Comment on above: Performed By: #### B MP, LIVER, FT3, LIPID, PSASC, TSH, DLDL ####[facility] Spjjirgiht[address] [place] [address] ALT enzyme act/vol 66 U/L Normal 21-72 [facility] Comment on above: Performed By: #### B MP, LIVER, FT3, LIPID, PSASC, TSH, DLDL ####[facility] Xyttiuexwc7055 [place] [id number] AST enzyme act/vol 48 U/L Normal 17-59 [facility] Comment on above: Performed By: #### B MP, LIVER, FT3, LIPID, PSASC, TSH, DLDL ####[facility] Wwwzykqoig8[address] [place] [address] BILI, CONJUGATED 0.0 mg/dL Normal 0.0-0.3 [facility] Comment on above: Performed By: #### B MP, LIVER, FT3, LIPID, PSASC, TSH, DLDL ####[facility] Ghhicbnxhv1884 [place] [id number] Bilirubin Ql (U) 0.3 mg/dL Normal 0.2-1.3 [facility] Comment on above: Performed By: #### B MP, LIVER, FT3, LIPID, PSASC, TSH, DLDL ####[facility] Rqzomtltqc2059 [address] [place] Globulin Calculated mass conc (S) 3.1 g/dL Normal [facility] Comment on above: Performed By: #### B MP, LIVER, FT3, LIPID, PSASC, TSH, DLDL ####[facility] Pfoysktshl6395 [address] [place] Protein mass conc 7.7 g/dL Normal 6.1-8.2 [facility] Comment on above: Performed By: #### B MP, LIVER, FT3, LIPID, PSASC, TSH, DLDL ####[facility] Zveqtidrsg0125 [address] [place] PROF CHEM 8 (BAS METB)on Anion gap 3 molar conc 10.0 mmol/L Normal [facility] Comment on above: Performed By: #### B MP, LIVER, FT3, LIPID, PSASC, TSH, DLDL ####[facility] Fbvxxakddv1013 [address] [place] Calcium mass conc 9.6 mg/dL Normal 8.4-10.2 [facility] Comment on above: Performed By: #### B MP, LIVER, FT3, LIPID, PSASC, TSH, DLDL ####[facility] Fbubzicqde4375 [address] [place] Chloride molar conc 104 mmol/L Normal 98-107 [facility] Comment on above: Performed By: #### B MP, LIVER, FT3, LIPID, PSASC, TSH, DLDL ####[facility] Udrdkscsce5628 [address] [place] CO2 molar conc 25.0 mmol/L Normal 22.0-30.0 [facility] Comment on above: Performed By: #### B MP, LIVER, FT3, LIPID, PSASC, TSH, DLDL ####[facility] Rpslexcrpx[address]8 [address] [place] Creatinine mass conc 0.96 mg/dL Normal 0.66-1.25 [facility] Comment on above: Performed By: #### B MP, LIVER, FT3, LIPID, PSASC, TSH, DLDL ####[facility] Oapyjltaeo1842 [address] [place] EGFR-AF TAIWANESE >60 Normal >=60 [facility] Comment on above: Performed By: #### B MP, LIVER, FT3, LIPID, PSASC, TSH, DLDL ####[facility] Ivuvtrymzp8889 [address] [place] EGFR-NON AF TAIWANESE >60 Normal >=60 [facility] Comment on above: Performed By: #### B MP, LIVER, FT3, LIPID, PSASC, TSH, DLDL ####[facility] Zwxojtgpjl9016 [address] [place] Glucose mass conc 97 mg/dL Normal 74-106 [facility] Comment on above: Performed By: #### B MP, LIVER, FT3, LIPID, PSASC, TSH, DLDL ####[facility] Fmzevcvgcl5496 [address] [place] Potassium molar conc 4.2 mmol/L Normal 3.4-5.0 [facility] Comment on above: Performed By: #### B MP, LIVER, FT3, LIPID, PSASC, TSH, DLDL ####[facility] Mnofwwagdi4080 [address] [place] Sodium molar conc 135 mmol/L Critically low 137-145 [facility] Comment on above: Performed By: #### B MP, LIVER, FT3, LIPID, PSASC, TSH, DLDL ####[facility] Yjpakfoqoz3795 [address] [place] Urea nitrogen mass conc 14.0 mg/dL Normal 9.0-20.0 [facility] Comment on above: Performed By: #### B MP, LIVER, FT3, LIPID, PSASC, TSH, DLDL ####[facility] Hshovirldk9702 [address] [place] Urea nitrogen/Creatinine mass ratio 14.8 mg/mg Normal [facility] Comment on above: Performed By: #### B MP, LIVER, FT3, LIPID, PSASC, TSH, DLDL ####[facility] Jvpsqxygrq4567 [place] [id number] TSHon 09-14-2017 Thyrotropin Qn SEE BELOW Normal [facility] Comment on above: Result Comment: <0.3 4 UIU/ml HYPERTHYROID 0.34-5.60 UIU/ml EUTHYROID >5.60 UIU/ml HYPOTHYROID Performed By: #### B MP, LIVER, FT3, LIPID, PSASC, TSH, DLDL ####[facility] Dhmzhbmaho7858 [address] [place] Thyrotropin Qn 6.140 uIU/mL Critically high 0.470-4.680 Th e [facility] Comment on above: Performed By: #### B MP, LIVER, FT3, LIPID, PSASC, TSH, DLDL ####[facility] Iggaqikgqd5098 [address] [place] Vital Signs Date Time Vital Sign Value Performing Clinician Maicol kumari 05-21-2024 09:10-0500 Diastolic blood pressure 80 mm[Hg] Claudio Sarmini [facility] 05-21-2024 09:10-0500 Heart rate 66 /min Claudio Sarmini [facility] 05-21-2024 09:10-0500 Systolic blood pressure 138 mm[Hg] Claudio Sarmini [facility] 05-21-2024 09:08-0500 Blood Pressure Location Claudio Sarmini [facility] 05-21-2024 09:08-0500 Respiratory rate 14 /min Claudio Sarmini [facility] 05-17-2024 08:22-0500 Body height 165.1 cm Christopher Jasmin DO Work Phone: [facility] 05-17-2024 08:22-0500 Body mass index (BMI) [Ratio] 39.61 kg/m2 Christopher Jasmin DO Work Phone: [facility] 05-17-2024 08:22-0500 Body weight 107.96 kg Christopher Jasmin DO Work Phone: [facility] 05-17-2024 08:22-0500 Diastolic blood pressure 88 mm[Hg] Christopher Jasmin DO Work Phone: [facility] 05-17-2024 08:22-0500 Heart rate 74 /min Christopher Jasmin DO Work Phone: [facility] 05-17-2024 08:22-0500 Systolic blood pressure 138 mm[Hg] Christopher Jasmin DO Work Phone: [facility] 05-11-2024 09:40-0500 Diastolic blood pressure 77 mm[Hg] Mohamad Mouchli [facility] 05-11-2024 09:40-0500 Heart rate 61 /min Mohamad Mouchli [facility] 05-11-2024 09:40-0500 Respiratory rate 13 /min Mohamad Mouchli [facility] 05-11-2024 09:40-0500 SaO2% (BldA) [Mass fraction] 94 % Mohamad Mouchli [facility] 05-11-2024 09:40-0500 Systolic blood pressure 140 mm[Hg] Mohamad Mouchli [facility] 05-11-2024 09:20-0500 Diastolic blood pressure 83 mm[Hg] Mohamad Mouchli [facility] 05-11-2024 09:20-0500 Heart rate 89 /min Mohamad Mouchli [facility] 05-11-2024 09:20-0500 Respiratory rate 22 /min Mohamad Mouchli [facility] 05-11-2024 09:20-0500 SaO2% (BldA) [Mass fraction] 94 % Mohamad Mouchli [facility] 05-11-2024 09:20-0500 Systolic blood pressure 145 mm[Hg] Mohamad Mouchli [facility] 05-11-2024 09:15-0500 Diastolic blood pressure 79 mm[Hg] Mohamad Mouchli [facility] 05-11-2024 09:15-0500 Heart rate 90 /min Mohamad Mouchli [facility] 05-11-2024 09:15-0500 Respiratory rate 13 /min Mohamad Mouchli [facility] 05-11-2024 09:15-0500 SaO2% (BldA) [Mass fraction] 98 % Mohamad Mouchli [facility] 05-11-2024 09:15-0500 Systolic blood pressure 126 mm[Hg] Mohamad Mouchli [facility] 05-11-2024 09:10-0500 Body temperature 98.42 [degF] Mohamad Mouchli [facility] 05-11-2024 09:05-0500 Respiratory rate 14 /min Mohamad Mouchli [facility] 05-11-2024 08:55-0500 Respiratory rate 22 /min Mohamad Mouchli [facility] 05-11-2024 07:28-0500 Blood Pressure Location Alejandra Hayden [facility] 05-11-2024 07:28-0500 Body temperature 97.88 [degF] Alejandra Hayden [facility] 05-07-2024 09:34-0500 Diastolic blood pressure 82 mm[Hg] Ji SIMON [facility] 05-07-2024 09:34-0500 Mean blood pressure 109 mm[Hg] Ji SIMON [facility] 05-07-2024 09:34-0500 Systolic blood pressure 164 mm[Hg] Ji SIMON [facility] 05-07-2024 09:11-0500 Diastolic blood pressure 86 mm[Hg] Ji SIMON [facility] 05-07-2024 09:11-0500 Heart rate 74 /min Ji SIMON [facility] 05-07-2024 09:11-0500 Respiratory rate 16 /min Ji SIMON [facility] 05-07-2024 09:11-0500 Systolic blood pressure 168 mm[Hg] Ji SIMON [facility] 04-24-2024 08:57-0500 Blood Pressure Location Alejandra Hayden [facility] 04-24-2024 08:57-0500 Diastolic blood pressure 80 mm[Hg] Alejandra Hayden [facility] 04-24-2024 08:57-0500 Heart rate 71 /min Alejandra Hayden [facility] 04-24-2024 08:57-0500 Systolic blood pressure 125 mm[Hg] Alejandra Hayden [facility] Encounters Encounter Date Encounter Type Care Provider Facility Start: 10-15-2024 ambulatory Ji SIMON Facili ty:[facility] [place] Start: 09-14-2024 End: 09-14-2024 ambulatory Ji [place] SIMON Facility:[facility] [place] Start: 09-14-2024 End: 09-14-2024 Patient encounter procedure Ji R AURORA [facility] [place] Start: 09-10-2024 End: 09-10-2024 ambulatory Ji R SIMON Facility:[facility]EL[facility]SA [place] Start: 09-10-2024 End: 09-10-2024 Patient encounter procedure Ji Be SIMON [facility] [place] Start: 08-16-2024 End: 08-16-2024 ambulatory Claudio Talal Sarmini Facility:[facility] Start: 07-17-2024 End: 07-17-2024 ambulatory Claudio Talal Sarmini Facility:[facility] Start: 05-25-2024 End: 05-25-2024 Bamboo flowsheet Jazlyn Wilburn OT Work Phone: [facility] Start: 05-25-2024 End: 05-25-2024 Bamboo flowsheet Jazlyn Wilburn OT Work Phone: [...] 05-21-2024 End: 05-21-2024 ambulatory Claudio Talal Sarmini Facility:[facility] Start: 05-21-2024 End: 05-21-2024 Patient encounter procedure Claudio Talal Sarmini [facility] Start: 05-18-2024 End: 05-18-2024 ambulatory Jazlyn Wilburn OT Work Phone: [facility] Comment on above: Joint stiffness of h and, right (Primary Dx); Swelling of right hand Start: 05-17-2024 End: 05-17-2024 Bamboo flowsheet Sandra Castellanos DO Work Phone: [facility] Start: 05-17-2024 End: 05-17-2024 Bamboo flowsheet Sandra [...] Start: 05-11-2024 End: 05-11-2024 ambulatory Alejandra Hayden [place] [place] Start: 05-11-2024 End: 05-11-2024 Patient encounter procedure Alejandra Hayden [facility] Start: 05-07-2024 End: 05-07-2024 ambulatory Alejandra Hayden Facility:[facility] Start: 05-07-2024 End: 05-07-2024 Patient encounter procedure Ji SIMON [facility] Start: 04-27-2024 ambulatory Alejandra Hayden Facilit y:[facility] [place] Start: 04-26-2024 End: 04-26-2024 ambulatory Alejandra Hayden [place] [place] Start: 04-26-2024 End: 04-26-2024 Patient encounter procedure Alejandra Hayden [facility] Start: 04-25-2024 End: 04-25-2024 ambulatory Alejandra Hayden [place] [place] Start: 04-25-2024 End: 04-25-2024 Lab Drop off Alejandra Hayden [facility] Start: 04-24-2024 End: 04-24-2024 ambulatory Alejandra Hayden [place] [place] Start: 04-24-2024 End: 04-24-2024 Patient encounter procedure Alejandra Hayden [facility] Start: 04-24-2024 End: 04-24-2024 ambulatory Alejandra Hayden Facility:[facility] Start: 04-24-2024 End: 04-24-2024 Patient encounter procedure Alejandra Hayden [facility] Start: 04-18-2024 ambulatory Alejandra Hayden Facilit y:Alejandro Start: 03-15-2018 End: 03-16-2018 Patient encounter procedure LUIS ANTONIO Aurora [facility] Facility:[facility] Start: 01-02-2018 End: 01-03-2018 Patient encounter procedure LUIS ANTONIO [facility] Facility[facility] Start: 10-26-2017 End: 10-27-2017 Patient [facility] Start: 09-27-2017 End: 09-28-2017 Patient encounter procedure [facility] Start: 09-15-2017 Encounter for genera l adult medical examination without abnormal findings [facility] Start: 09-14-2017 End: 09-15-2017 Patient encounter procedure LUIS ANTONIO Simon [facility] Facility:[facility] Encounter for genera l adult medical examination without abnormal findings [facility] Procedures Date Procedure Procedure Detail Performing Clinician Start: 05-11-2024 Colonoscopy Alejandra Hayden Comment on above: colon polyps x2, diverticulosis, Ih Start: 05-11-2024 Esophagogastroduodenoscopy Alejandra huynh Comment on above: esophagitis, gastritis, clean based ulce rs, biopsies for celiac disease Start: 09-14-2017 PSA screening LUIS ANTONIO HERNANDEZ Comment on above: Performed By: #### BMP, LIVER, FT3, LIPI D, PSASC, TSH, DLDL ####[facility] Uyfubvzdmy13[address] [place] Plan of Treatment Date Care Activity Detail Author Start: 11-19-2024 End: 11-19-2024 Patient encounter procedure 11/19/2024 8:20 AM EDT Office Visit [facility] [address] [place] [id number] Sofie Weller NP [address] [place] [phone] [facility] Start: 05-25-2024 End: 05-25-2024 ambulatory 05/25/2024 8:00 AM EST Treatment [facility] [address] [place] [address] Jazlyn Wilburn, OT [address] [place] [address] [facility] Start: 05-22-2024 End: 05-22-2024 ambulatory 05/22/2024 8:00 AM EST Treatment [facility] [address] [place] [address] Jazlyn Wilburn, OT [address] [place] [address] [facility] Start: 05-18-2024 End: 05-18-2024 ambulatory 05/18/2024 8:00 AM EST Treatment [facility] [address] [place] [address] Jazlyn Wilburn, OT [address] [place] [address] [facility] Start: 05-17-2024 End: 05-17-2024 Patient encounter procedure 05/17/2024 8:00 AM EST Office Visit [facility] [address] [place] [phone] Sandra Castellanos DO [address] [place] [address] [facility] Start: 12-11-2023 Influenza vaccination Influenza Vacc ine (#1) [facility] Start: 1970 Screening for malign ant neoplasm of colon [facility] Immunizations Immunization Date Immunization Notes Care Provider Ron armenta NEGATED: Highlighted row has not occurred!04-24-2024 influenza virus vaccine, unspecified formulation Alejandra Hayden [facility] Payers Date Payer Category Payer Private Health Insurance [id number] 2024 Medicaid (Managed Care) [place]ADE M [employer] [id number] 2024 Unknown [id number] 1970 Unknown [id number] 2.840.1.872618.3.579.2 .59 1970 Unknown [id number] 2.840.1.094319.3.579.2 .59 1970 Unknown [id number] 2.840.1.973815.3.579.2 .59 1970 Unknown [id number] 2.16840.1.058706.3.579.2 .593 1970 Unknown [id number] 2.16840.1.807984.3.579.2 .593 1970 Unknown [id number] 2.16840.1.776753.3.579.2 .727 1970 Unknown [id number] 2.16840.1.756722.3.579.2 .1970 Unknown [id number] 2.16.840.1.626172.3.579.2 .1970 Unknown [id number] 2.16.840.1.049198.3.579.2 .1258 1970 Unknown [id number] 2.16.840.1.864668.3.579.2 .1258 1970 Unknown [id number] 2.16.840.1.168836.3.579.2 .1258 1970 Unknown [id number] 2.16.840.1.520204.3.579.2 .1258 1970 Unknown [id number] 2.16.840.1.863657.3.579.2 1970 Unknown [id number] 2.16.840.1.892887.3.579.2 1970 Unknown [id number] 2.16.840.1.535003.3.579.2 1970 Unknown [id number] 2.16.840.1.904137.3.579.2 1970 Unknown [id number] 2.16.840.1.292780.3.579.2 1970 Unknown [id number] 2.16.840.1.093208.3.579.2 1970 Unknown [id number] 2.16.840.1.805807.3.579.2 1970 Unknown [id number] 2.16.840.1.673681.3.579.2 1970 Unknown [id number] 2.16.840.1.931227.3.579.2 1970 Unknown [id number] 2.16.840.1.642848.3.579.2 .72 1959 Unknown [id number] Social History Date Type Detail Facility Start: 04-24-2024 End: 08-16-2024 Tobacco smoking status Never smoked tobacco (finding) [facility] Tobacco smoking status Smokeless tobacco user within last 30 days [facility] Start: 05-17-2024 Sex Assigned At Male F [facility] Tobacco smoking stat [facility] Tobacco smoking consumption unknown [facility] Start: 1970 Sex assigned at Not on file [facility] Start: 05-17-2024 Tobacco use and exposure User of smokeless tobacco [facility] History of tobacco use Chews Tobacco [facility] Start: 05-17-2024 Alcoholic beverage intake Current drinker of alcohol (finding) [facility] Start: 05-17-2024 History of Social function [facility] Healthcare Sexual Orientation [facility] Sex Male (finding) [facility] Functional Status Date Assessment Result Facility 05-21-2024 Functional Status N/A [facility] 05-11-2024 Functional Status N/A [facility] 05-07-2024 Functional Status N/A [facility] 04-24-2024 Functional Status N/A [facility] Clinical Notes 05-07-2024 to 09-10-2024 Jazlyn Wilburn, OT - 05/25/2024 8:00 AM Mihir Wilburn, OT - 05/22/2024 8:00 AM Mihir Wilburn, OT - 05/18/2024 8:00 AM Gaurav Castellanos, DO - 05/17/2024 8:00 AM EST Note Date & Type Note Facility 09-10-2024 Hospital Discharge instructions Patient Education 09/10/2024 15:47:46 Hypogonadism, Male Hypogonadism, Male Male hypogonadism is [...] is the main cause of this condition. Use of medicines, such as antidepressants, steroids, [...] therapy. Follow these instructions at home: Take rikg-bix-vyqakkn and prescription medicines only as told by [...] provider. Document Revised: 11/27/2020 Document Reviewed: 11/27/2020 [employer] Patient Education 2023 [employer]. Follow Up Care 05/07/2024 09:57:31 With:AURORA ROMERO, Ji Be, URL Address: [facility] [address], [place] [address] [phone] When: Unknown Comments:4 mos w/ T level [facility] [place] 09-10-2024 Note Patient Education Urology Hypogonadism, Male Male [...] Follow these instructions at home: ??? Take pwls-syz-zhddiyz and prescription medicines only as told by [...] you discuss any (more content not included)... [facility] 05-25-2024 History of Present illness Narrative Occupational Therapy Occupational Therapy Treatment [...] all planes 1x15 with fair toleration. [employer]posite insurance business analyst holds x2 minutes. Contract release exercsies 1x15. [...] speaking with doctor. documented in this encounter [facility] 05-22-2024 History of Present illness Narrative Occupational Therapy Occupational Therapy Treatment Visit Patient Name: Tate Encarnacion Today's Date: 05/22/2024 Linked Episodes Type: Episode: Status: Noted: Resolved: Last update: Updated by: Occupational Therapy R hand swelling Active 05/15/2024 05/22/2024 10:38 AM Jazlyn Wilburn OT Comments: Visit number: 06/16 Timed Code Treatment minutes: 60 Total Treatment Time: 60 Subjective Pain: 2/10. I have not tried to use my [...] all planes 1x15 with fair toleration. [employer] insurance business analyst holds x2 minutes. Contract release exercsies 1x15. [...] pain at discharge documented in this encounter [facility] [facility] 05-18-2024 History of Present illness Narrative Occupational Therapy Occupational Therapy Treatment Visit Patient Name: Tate Encarnacion Today's Date: 05/18/2024 Linked Episodes Type: Episode: Status: Noted: Resolved: Last update: Updated by: Occupational Therapy R hand swelling Active 05/15/2024 05/18/2024 8:05 AM Jazlyn Wilburn OT Comments: Visit number: 05/19 Timed Code Treatment minutes: 60 Total Treatment Time: 60 Subjective Pain: 2/10. No pain. I started the medication and bought a compression glove. It still feels stiff but better Overall progress:improving Objective: 40' MT for STM/ DTM of the R hand and wrist for edema management. PROM complete to R wrist, thumb, and all digits in all planes 1x15 with fair toleration. Composite insurance business analyst holds x2 minutes. Contract release exercsies 1x15. [...] pain at discharge documented in this encounter [facility] 05-17-2024 History of Present illness Narrative Images from the original note [...] machine. He did have recent MRI at [facility]. He has never tried any [...] , wrist extensors , wrist flexor , insurance business analyst strength 5/5. LUE Strength deltoid , biceps , triceps , wrist extensors , wrist flexor , insurance business analyst strength 5/5. RLE Strength illopsoas, quadriceps, tibialis [...] reflex 2+ . Huerta's sign negative. Coordination: Fvitmq-vu-bvqq testing and rapid alternating movements are normal [...] and return instructions documented in this encounter [facility] 05-15-2024 History of Present illness Narrative Images from the original note [...] R hand. 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 Precautions: none Objective PRWHE Pain Score: 39/50 [...] composite fist. Strength Strength additional comments: R insurance business analyst strength: 35# compared to L insurance business analyst strength: 115# Special Tests Special tests additional [...] for light strengthening and ROM at discharge. Roundhouse Worker Goals: PRWHE Pain Score < 20/ 50 ( IE:39/50 ) PRWHE Functional Score <25/100 (IE: 68/100) Reduce R hand edema by at least 5 cm in order to reduce pain and improve ROM at discharge. Pt to increase insurance business analyst strength by 10# and LP by 2# pain free at discharge. Pt will be able to use right UE in light daily activities. Pt will benefit from skilled OT to address the above impairments for 2x/week for 4-6 weeks. I hereby deem this POC medically necessary. Please sign below. Date: . documented in this encounter [facility] 05-11-2024 Evaluation + Plan note Extrac deb from: Title:ANES Post-operative Note---General Author: Cody Tay MD Date:05/11/24 Plan Transfer/Discharge: Transfer/Discharge Discharge when meets criteria ( To home ). Extracted from: Title:1Preop H&P Author:González Sutton MD Date:05/11/24 Impression and Plan Impression: change in bowel habits Plan: -EGD and Colonoscopy Extracted from: Title:RENA Pre-operative Note 2022 Author:Cody Chávez Date:05/11/24 Plan [place] [employer] Anesthesiologists (ASA) physical status classification: Class II. Anesthetic Preoperative Plan: Anesthesia General. Future Appointments Appointment Date:05/21/2024 09:00:00 AM Scheduled Provider:González Sutton [place] [place] [facility] Appointment Type:BADH Follow Up Appointment Date:09/07/2024 09:45:00 AM Scheduled Provider:Ji SIMON MD Location:[facility] Appointment Type:URO Office Visit [facility] 01-31-2025 Hospital Discharge instructions Patient Education [...] help quitting, ask your health careprovider. Take cxeg-jiy-strqdrw and prescription medicines only as told by your health care provider. ?Do not use bnpi-qyi-aztdoaq medicines in place of prescription medicines unless [...] help quitting, ask your health careprovider. Take hoep-ant-yoabwmu and prescription medicines only as told by your health care provider. Do not use oyob-wnx-twwdiva medicines in place of prescription medicines unless your health care provider approves. Limit your alcohol and caffeine intake. Keep all follow-up visits. This is important. This information is not intended to replace advice given to you by your health care provider. Make sure you discuss any questions you have with your health care provider. Document Revised: 11/06/2021 Document Reviewed: 11/06/2021 [employer] Patient Education 2023 [employer]. 05/11/2024 09:43:40 Colonoscopy, Care After Surgery Salam [...] unsweetened, w/added ascorbic acid 1 cup 0.5 Weyerhaeuser 1 cup 0.7 Vegetables Cooked Green beans 1 cup 4.0 Carrots 1/2 cup sliced 2.3 Peas 1 cup 8.8 Potato (baked, with skin) 1 medium potato 3.8 Raw [place] (with peel) 1 cucumber 1.5 Lettuce 1 [...] 8.7 Peanuts 1/2 cup 7.9 Chart from [facility] 2013. SEEK IMMEDIATE MEDICAL CARE IF: [...] Nutrient Database for Standard Reference. Available at http://www.LiftMetrix.usda.gov/fnic/foodcomp/search/. Information adapted from: ExitCare Patient Information 2009 Eyewitness Surveillance. [facility] SystemEmerging Threats 2012 http://www.[employer]contents/puwnhnpnbbry-mkfljue-msbpnq-the-basics 05/11/2024 09:43:38 Colon Polyps Colon Polyps Colon [...] hard liquor (44 mL). General instructions Take hien-uss-xcwrucy and prescription medicines only as told by [...] provider. Document Revised: 07/16/2020 Document Reviewed: 07/16/2020 [employer] Patient Education 2023 [employer]. 05/11/2024 09:27:02 Gluten-Free Diet for Celiac Disease, [...] are safe to eat. In the [place] IPXI are also required to list common food [...] how a food is processed, ask the barrel bander. What foods can I eat? Fruits All [...] cereals made from cornmeal or GF grains. [place], rice, and wild rice. Some rice noodles or dick noodles. Arrowroot starch, corn bran, corn flour, corn germ, cornmeal, corn starch, potato flour, potato starch flour, and rice bran. Plain, brown, and sweet rice flours. Rice chadian, soy flour, and tapioca starch. Meats and [...] or meat loaves. Bread-containing products, such as Croatian steak, croquettes, meatballs, and meatloaf. Most tuna canned in vegetable broth. [place] with hydrolyzed vegetable protein (HVP) injected as [...] provider. Document Revised: 02/16/2022 Document Reviewed: 02/16/2022 [employer] Patient Education 2023 [employer]. 05/11/2024 09:26:16 Upper Endoscopy, Adult, Care After [...] what activities are safe for you. Take hwtq-eoz-hpkxulw and prescription medicines only as told by [...] provider. Document Revised: 07/07/2022 Document Reviewed: 07/07/2022 [employer] Patient Education 2023 [employer]. 05/11/2024 09:26:10 Esophagitis Esophagitis Esophagitis is inflammation [...] Follow these instructions at home: Medicines Take yylc-rdr-mgjpbzx and prescription medicines only as told by [...] powder, vinegar, hot sauces, and barbecue sauce. ?[place] fruit juices and citrus fruits, such as oranges, ronald, and limes. ?Tomato-based foods, such as red sauce, chili, salsa, and pizza with red sauce. ?Fried and fatty foods, such as donuts, norwegian fries, potato chips, and high-fat dressings. ?High-fat [...] provider. Document Revised: 10/06/2020 Document Reviewed: 10/06/2020 [employer] Patient Education 2023 [employer]. 05/11/2024 09:25:57 Celiac Disease Celiac Disease Celiac [...] provider. Document Revised: 02/16/2022 Document Reviewed: 02/16/2022 [employer] Patient Education 2023 [employer]. 05/11/2024 09:25:22 Gastritis, Adult Gastritis, Adult Gastritis [...] medicines. These include steroids, antibiotics, and some tekk-vab-mkkjses medicines, such as aspirin or ibuprofen. Having [...] Follow these instructions at home: Medicines Take lyjk-dqo-ygefaoh and prescription medicines only as told by [...] provider. Document Revised: 08/01/2021 Document Reviewed: 08/01/2021 [employer] Patient Education 2023 [employer]. [facility] 01-31-2025 NotePatient Education - Text Colonoscopy Care After Surgery Please read the instructions outlined below and refer to this sheet in the next few weeks. These discharge instructions provide you with general information on [facility] Your doctor may also give you specific [...] unsweetened, w/added ascorbic acid 1 cup 0.5 Weyerhaeuser 1 cup 0.7 Vegetables Cooked Green beans 1 cup 4.0 Carrots 1/2 cup sliced 2.3 Peas 1 cup 8.8 Potato (baked, with skin) 1 medium potato 3.8 Raw [place] (with peel) 1 cucumber 1.5 Lettuce 1 [...] Chart from UpToDate 2 (more content not included)...[facility] 05-11-2024 NoteProgress Note-Physician Patient: TATE ENCARNACION Age: 53 years Sex: Male : 1970 Associated Diagnoses: None Author: Cody Tay MD Postoperative Information Postoperative disposition: Postoperative disposition: To PACU. Optimetrix number: Optimetrix number [id number]. Anesthetic utilized: General. Health Status Allergies: Allergic [...] Discharge when meets criteria ( To home ).[facility]:Result Comment: Electronically Signed By: [...] out celiac disease Images Procedure images: Rec1_hd_video_2024__[id number].jpg Rec1_hd_video__[id number].jpg Rec1_hd_video__T08_[id number].jpg Rec1_hd_video__T08_[id number]_22_[id number].jpg Rec1_hd_video__T08_[id number]_244.jpg Rec1_hd_video__T08_[id number]_12_320.jpg Rec1_hd_video__T08_[id number]_481.jpg Rec1_hd_video__T08_[id number]_346.jpg [...] EGD in 3 months to ensure esophagitis healingC[facility] Comment on above:Result Comment: Electronically Signed By: González Sutton MD\.br\Date and Time Signed: 05/11/24 09:09 ESTOther Comment: Missing Attachment - attachment storage system not supported [id number] Can be viewed in source systemMissing Attachment - attachment storage system not supported [id number] Can be viewed [facility] hospitalce systemMissing Attachment - attachment storage system not supported [id number] Can be viewed in source systemMissing Attachment - attachment storage system not supported [id number] Can be viewed in source systemMissing Attachment - attachment storage system not supported [id number] Can be viewed in source systemMissing Attachment - attachment storage system not supported [id number] Can be viewed in source systemMissing Attachment - attachment storage system not supported [id number] Can be viewed in source systemMissing Attachment - attachment storage system not supported [id number] Can be viewed in source systemMissing Attachment - attachment storage system not supported [id number] Can be viewed in [id number] NoteEndoscopic Procedure Report - Other Patient: TATE [...] qAM, # 75 gram, Refills(s) 3, Pharmacy: [facility], 165, cm, 05/07/24 9:19:00 EST, Height/Length Dosing, 108.1, kg, 05/07/24 9:19:00 EST, Weight Dosing Questran 4 g/9 g oral powder: = 1 packet(s), Oral, BID, # 60 EA, Refills(s) 0, Pharmacy: [facility], 170, cm, 04/24/24 8:57:00 EST, Height/Length Dosing, 108.6, kg, 04/24/24 8:57:00 EST, Weight Dosing Zenpep 60,000 units-189,600 units-252,600 units oral delayed release capsule: See Instructions, 300cap(s), Refill(s) 3, Take 2 caps with each meal and 1 with each snack, [facility], 170, cm, 04/24/24 8:57:00 EST, Height/Length Dosing, 108.6, kg, 04/24/24 8:57:00 EST, Weight Dosing tadalafil 20 mg Tab: 20 mg = 1 tab(s), Oral, As Directed, PRN for erectile dysfunction, Pt to take one tab 1 hour prior to sexual activity. Do not exceed 20mg in 24 hours., # 30 tab(s), Refills(s) 0,Pharmacy: [facility], 165, cm, 05/07/24 9:19:00 EST, Hei... [...] ileum Images Procedure images: Rec_hd_video___[id number].jpg Rec_hd_video___12_57_[id number].jpg Rec_hd_video____15_539.jpg Rec1_hd_video___06_07_071.jpg Rec1_hd_video__09__04_714.jpg Rec1_hd_video____57_958.jpg Rec1_hd_video____44_461.jpg Rec1_hd_video____17_731.jpg . Post-Procedure Complications: none. Estimated blood [...] 5. Otherwise normal colo (more content not included)...[facility]Comment on above:Result Comment: Electronically Signed By: Lesley ROMERO, González Cadena\.br\Date and Time Signed: 05/11/24 09:07 ESTOther Comment: Missing Attachment - attachment storage system not supported [id number] Can be viewed in source systemMissing Attachment - attachment storage system not supported [id number] Can be viewed insource systemMissing Attachment - attachment storage system not supported 1066229 Can be viewed in source systemMissing Attachment - attachment storage system not supported 4113848 Can be viewed in so urce systemMissing Attachment - attachment storage system not supported 6308935 Can be viewed in source systemMissing Attachment - attachment storage system not supported 2093879 Can be viewed in source systemMissing Attachment - attachment storage system not supported 6623100 Can be viewed in source systemMissing Attachment - attachment storage system not supported [id number] Can be viewed in source -[id number] NoteHistory and Physical Patient: TATE ENCARNACION Age: [...] qAM, # 75 gram, Refills(s) 3, Pharmacy: [facility], 165, cm, 05/07/24 9:19:00 EST, Height/Length Dosing, 108.1, kg, 05/07/24 9:19:00 EST, Weight Dosing Questran 4 g/9 g oral powder: = 1 packet(s), Oral, BID, # 60 EA, Refills(s) 0, Pharmacy: [facility], 170, cm, 04/24/24 8:57:00 EST, Height/Length Dosing, 108.6, kg, 04/24/24 8:57:00 EST, Weight Dosing Zenpep 60,000 units-189,600 units-252,600 units oral delayed release capsule: See Instructions, 300cap(s), Refill(s) 3, Take 2 caps with each meal and 1 with each snack, [facility], 170, cm, 04/24/24 8:57:00 EST, Height/Length Dosing, 108.6, kg, 04/24/24 8:57:00 EST, Weight Dosing tadalafil 20 mg Tab: 20 mg = 1 tab(s), Oral, As Directed, PRN for erectile dysfunction, Pt to take one tab 1 hour prior to sexual activity. Do not exceed 20mg in 24 hours., # 30 tab(s), Refills(s) 0,Pharmacy: [facility], 165, cm, 05/07/24 9:19:00 EST, Hei... [...] hypertension (high blood pressure) / SNOMED CT 97744234 / Confirmed Thyroid function tests abnormal / SNOMED CT 176596314 / Confirmed Anemia of chronic disorder (low iron) / SNOMED CT 414019242 / Confirmed Bloating / SNOMED CT 835784913 / Confirmed Black stool / SNOMED CT 576326071 / Confirmed Chronic GERD / SNOMED CT 838288212 / Confirmed Decreased sexual desire / SNOMED CT 934205993 / Confirmed Alcohol drinker / SNOMED CT 321457056 / Confirmed Stress-related physiological response affecting medical condition / SNOMED CT 08226378 / Confirmed High triglycerides / SNOMED CT 147549706 / Confirmed Obesity due to excess calories / SNOMED CT 9990063499 / Confirmed ED (erectile dysfunction) / SNOMED CT 9472596445 / Confirmed Hypogonadism male / SNOMED CT 62677549 / Confirmed Screening PSA (prostate specific antigen) / SNOMED CT 014292520 / Confirmed BPH with urinary obstruction / SNOMED CT 0577596386 / Confirmed Acquired buried penis / SNOMED CT 726375943 / Confirmed Histories Past Medical History: No [...] change in bowel habits Plan: -EGD and ColonoscopyC[facility] HospitalComment on above:Result Comment: Electronically Signed By: Lesley ROMERO, González Cadena\.jeaneth\Date and Time Signed: 05/11/24 08:34 [id number] NoteProgress Note-Physician Patient: TATE ENCARNACION Age: 53 [...] qAM, # 75 gram, Refills(s) 3, Pharmacy: [facility], 165, cm, 05/07/24 9:19:00 EST, Height/Length Dosing, 108.1, kg, 05/07/24 9:19:00 EST, Weight Dosing Questran 4 g/9 g oral powder: = 1 packet(s), Oral, BID, # 60 EA, Refills(s) 0, Pharmacy: [facility], 170, cm, 04/24/24 8:57:00 EST, Height/Length Dosing, 108.6, kg, 04/24/24 8:57:00 EST, Weight Dosing Zenpep 60,000 units-189,600 units-252,600 units oral delayed release capsule: See Instructions, 300cap(s), Refill(s) 3, Take 2 caps with each meal and 1 with each snack, [facility], 170, cm, 04/24/24 8:57:00 EST, Height/Length Dosing, 108.6, kg, 04/24/24 8:57:00 EST, Weight Dosing tadalafil 20 mg Tab: 20 mg = 1 tab(s), Oral, As Directed, PRN for erectile dysfunction, Pt to take one tab 1 hour prior to sexual activity. Do not exceed 20mg in 24 hours., # 30 tab(s), Refills(s) 0,Pharmacy: [facility], 165, cm, 05/07/24 9:19:00 EST, Hei... [...] Problems Acquired buried penis / SNOMED CT 629518249 / Confirmed Alcohol drinker / SNOMED CT 946313202 / Confirmed Anemia of chronic disorder (low iron) / SNOMED CT 438755463 / Confirmed Benign hypertension (high blood pressure) / SNOMED CT 18256012 / Confirmed Black stool / SNOMED CT 876821300 / Confirmed Bloating / SNOMED CT 417600739 / Confirmed BPH with urinary obstruction / SNOMED CT 5831827050 / Confirmed Chronic GERD / SNOMED CT 057720798 / Confirmed Decreased sexual desire / SNOMED CT 737323733 / Confirmed ED (erectile dysfunction) / SNOMED CT 5707731872 / Confirmed High triglycerides / SNOMED CT 640253248 / Confirmed Hypogonadism male / SNOMED CT 94217209 / Confirmed Obesity due to excess calories / SNOMED CT 1293923172 / Confirmed Screening PSA (prostate specific antigen) / SNOMED CT 069533650 / Confirmed Stress-related physiological response affecting medical condition / SNOMED CT 87258364 / Confirmed Thyroid function tests abnormal / SNOMED CT 964324071 / Confirmed Canceled: Low libido / SNOMED CT 201089101, Active Problems (16) Acquired buried penis Alcohol [...] have been selected or (more content not included)...[facility] HospitalComment on above:Result Comment: Electronically Signed By: Jasvir ROMERO, Cody Alvarez\.br\Date and Time Signed: 05/11/24 08:21 [id number] Hospital Discharge instructions Patient Education 05/07/2024 09:53:04 [...] therapy. Follow these instructions at home: Take unjo-ybg-iawewax and prescription medicines only as told by [...] provider. Document Revised: 11/27/2020 Document Reviewed: 11/27/2020 [employer] Patient Education 2023 [employer]. 05/07/2024 09:39:27 Erectile Dysfunction Erectile Dysfunction Erectile [...] Follow these instructions at home: Medicines Take fjbn-cbk-hzfebsa and prescription medicines only as told by [...] provider. Document Revised: 06/24/2021 Document Reviewed: 06/24/2021 [employer] Patient Education 2023 [employer]. Follow Up Care 04/27/2024 13:04:43 With:AURORA ROMERO, Ji Be, URL Address: [facility] [address] [place] [address] [phone] When: Unknown Comments:4 mos w/ PSA and T level [facility] [place] 01-27-2025 NotePatient Education Urology Hypogonadism, Male Male [...] Follow these instructions at home: ??? Take wrzx-sdz-cdjuqcq and prescription medicines only as told by [...] sure you discuss any (more content not included)...[facility] Plan note Future Appointments Appointment Date:05/04/2024 09:30:00 AM Scheduled Provider: Location:[facility] Appointment Type:Surgery FT Appointment Date:05/11/2024 09:00:00 AM Scheduled Provider:Alejandra Hayden MD Location:[facility] Appointment Type:BAD Follow Up Future Scheduled Tests Laboratory* Pancreatic Elastase, Fecal 04/24/24 * Pancreatic Elastase, Fecal 04/24/24 * Calprotectin, Fecal 04/24/24 Radiology* US Abdomen, Limited 04/24/24 [facility] evaluation + Plan note Future Appointments Appointment Date:05/04/2024 09:30:00 AM Scheduled Provider: Location:[facility] Appointment Type:Surgery FT Appointment Date:05/11/2024 09:00:00 AM Scheduled Provider:Alejandra Hayden MD Location:[facility] Appointment Type:[facility] Follow Up Diagnostic Tests Pending * Celiac Disease Comprehensive 04/24/24 * Testosterone Level Total 04/24/24 Future Scheduled Tests Laboratory* Pancreatic Elastase, Fecal 04/24/24 * Pancreatic Elastase, Fecal 04/24/24 * Calprotectin, Fecal 04/24/24 Radiology* US Abdomen, Limited 04/24/24 [facility] evaluation + Plan note Future Appointments Appointment Date:04/26/2024 08:30:00 AM Scheduled Provider: [facility] Type:US Abdominal/Pelvis (FT) Appointment Date:05/04/2024 09:30:00 AM Scheduled Provider: Location:[facility] Appointment Type:Surgery FT Appointment Date:05/11/2024 09:00:00 AM Scheduled Provider:Alejandra Hayden MD Location:[facility] Appointment Type:BAD Follow Up Diagnostic Tests Pending * Calprotectin, Fecal 04/25/24 * Pancreatic Elastase, Fecal 04/25/24 Future Scheduled Tests Radiology* US Abdomen, Limited 04/26/24 [facility] evaluation + Plan note Future Appointments Appointment Date:05/04/2024 09:30:00 AM Scheduled Provider: Location:[facility] Appointment Type:Surgery FT Appointment Date:05/11/2024 09:00:00 AM Scheduled Provider:Alejandra Hayden [place] [place] [facility] [place]ment Type:BAD Follow Up [facility] Evaluation + Plan note Future Appointments Appointment Date:05/11/2024 08:15:00 AM Scheduled Provider: Location:[facility] Appointment Type:Surgery FT Appointment Date:05/21/2024 09:00:00 AM Scheduled Provider:González Sutton MD [place] [place] [facility] Appointment Type:BADH Follow Up Appointment Date:09/07/2024 09:45:00 AM Scheduled Provider:Ji SIMON MD Location:[facility] Appointment Type:URO Office Visit Diagnostic Tests Pending * Testosterone Level Total 05/07/24 * PSA Screen, Total 05/07/24 [facility] evaluation + Plan note Future Appointments Appointment Date:09/07/2024 09:45:00 AM Scheduled Provider:Ji SIMON MD Location:[facility] Appointment Type:URO Office Visit [facility] Evaluation + Plan note Future Appointments Appointment Date:09/14/2024 08:00:00 AM Scheduled Provider: Location:[facility] Appointment Type:URO Nurse Visit [facility] evaluation + Plan note Future Appointments Appointment Date:10/15/2024 09:00:00 AM Scheduled Provider: Location:[facility] Appointment Type:URO Nurse Visit [facility] evaluation note* Diagnosis Swelling of right hand- Primary [...] Narrative No data available for this section [facility] Hospital Discharge instructions No data available for this section [facility] Progress note No data available for this section [facility] Reason for visit Narrative* Rehabilitation - Outpatient (Routine) - Authorized Specialty Diagnoses / Procedures Referred By Contac t Referred To Contact Occupational Therapy / Physical Therapy Diagnoses Swelling of R hand Procedures SC OCCUPATIONAL THERAPY EVALUATION SC OFFICE/OUTPATIENT NEW HIGH MDM 60 MINUTES Genoveva Cartagena MD [address] [place] [address] [place] [address] Phone: tel: fax: Jazlyn Wilburn, OT [address] [place] [address] Phone: tel: fax: Referral ID Status Reason Start Date Expiration Date V isits Requested Visits Authorized [id number] Authorized 05/15/2024 11/11/2024 30 30 [facility] HealthcareReason for visit Narrative* Rehabilitation - Outpatient (Routine) - Authorized Specialty Diagnoses / Procedures Referred By Contac t Referred To Contact Occupational Therapy / Physical Therapy Diagnoses Swelling of R hand Procedures SC OCCUPATIONAL THERAPY EVALUATION SC OFFICE/OUTPATIENT NEW HIGH MDM 60 MINUTES Genoveva Cartagena MD [address] [place] [address] [place] [address] Phone: tel: fax: Jazlyn Wilburn, OT [address] [place] [address] Phone: tel: fax: Referral ID Status Reason Start Date Expiration Date V isits Requested Visits Authorized [id number] Authorized 05/15/2024 04/10/2025 30 30 [facility] [...] Found No data available for this section Advance Directives No Advanced Directives Records FoundNo [...] content) DATE CREATED AUTHOR 03/21/2018 [facility] DATE CREATED AUTHOR AUTHOR'S ORGANIZ ATION 04/27/2024 [facility] DATE CREATED AUTHOR AUTHOR'S ORGANIZ ATION 04/28/2024 [facility] DATE CREATED AUTHOR AUTHOR'S ORGANIZ ATION 04/30/2024 [facility] DATE CREATED AUTHOR AUTHOR'S ORGANIZ ATION 05/18/2024 [facility] DATE CREATED AUTHOR AUTHOR'S ORGANIZ ATION 05/19/2024 [facility] DATE CREATED AUTHOR AUTHOR'S ORGANIZ ATION 05/27/2024 [facility] DATE CREATED AUTHOR AUTHOR'S ORGANIZ ATION 08/22/2024 [facility] DATE CREATED AUTHOR AUTHOR'S ORGANIZ ATION 09/11/2024 [facility] DATE CREATED AUTHOR AUTHOR'S ORGANIZ ATION 09/15/2024 [facility] Patient Care team informatio n (unrecognized section and content) Personnel Name: KIRA GARRISON CNP Address: [address] [facility], [place], [place] [address] Telecom: Cryptologic Supervisor Relationship Specialty Start Date End Date Unallocated, Noms Provider, [address] [place], [place] [id number] PCP - General Family Medicine 04/19/24 [place] [address] [place] [id number] Referring Physician Family Medicine 04/19/24 Cryptologic Supervisor Relationship Specialty Start Date End Date Unallocated, Jose Hough MD [address] [place] [phone] PCP - General Family Medicine 04/19/24 Kira Garrison MD [address] [place] [phone] Referring Physician Family Medicine 04/19/24 Cryptologic Supervisor Relationship Specialty Start Date End Date Unallocated, Jose Hough MD [address] [place] [phone] PCP - General Family Medicine 04/19/24 Kira Garrison MD [address] [place], [place] [id number] Referring Physician Family Medicine 04/19/24 Sandra Castellanos DO [address] [id number] Referring Physician Neurology 05/17/24 Cryptologic Supervisor Relationship Specialty Start Date End Date Unallocated, Jose Hough MD [address] [place] [phone] PCP - General Family Medicine 04/19/24 Kira Garrison MD [address] [place] [phone] Referring Physician Family Medicine 04/19/24 Sandra Castellanos DO [address] [id number] Referring Physician Neurology 05/17/24 Cryptologic Supervisor Relationship Specialty Start Date End Date Unallocated, Jose Hough MD [address] [place] [address] PCP - General Family Medicine 04/19/24 Kira Garrison MD [address] [place] [address] Referring Physician Family Medicine 04/19/24 Sandra Castellanos DO [address] [place] [address] Referring Physician Neurology 05/17/24 Cryptologic Supervisor Relationship Specialty Start Date End Date Unallocated, Jose Hough MD [facility] [place] [address] PCP - General Family Medicine 04/19/24 Kira Garrison MD [address] [place] [address] Referring Physician Family Medicine 04/19/24 Sandra Castellanos DO [address] [place] [address] Referring Physician Neurology 05/17/24 Reason for Visit (unrecogniz ed section and content) Reason Comments Migraine Specialty Diagnoses / Procedures Referred By Contgalo t Referred To Contact Neurology Diagnoses Migraine, unspecified, not intractable, without status migrainosus (CMS/[facility]) Procedures [place] OFFICE/OUTPATIENT [facility] 30 [place] [address] [place] [address] Phone: tel: fax: Sandra Castellanos DO [address] [address] Phone: tel: fax: Referral ID Status Reason Start Date Expiration Date V isits Requested Visits Authorized [id number] Closed Consult and Treat 04/18/2024 10/15/2024 1 [...] BE BASED ON THE PRIMARY CLINICAL RECORDS. [facility], [facility]. provides no warranty or guarantee of the accuracy or completeness of information in this document.
[2024-09-27 15:44] LABS: Free T3 2.13 pg/mL (2.18-3.98); Thyroid Stimulating Hormone 20.514 uIU/mL (0.358-3.740)
== END 2024-09-27 14:34 | disposition home or self-care (01) ==
LOC: LAB 14:36
PROVIDERS: PCP Nurse Practitioner Family; Visit Provider Nurse Practitioner Family
DX: E03.9 Hypothyroidism, unspecified (principal)
CPT/HCPCS: 36415; 84436; 84443; 84481

== ENCOUNTER 2024-10-15 19:56 | Outpatient (OUT) | payer OTHER, SELFPAY ==
--- OUTSIDE RECORDS SUMMARY | 2024-09-10 04:30 | XMS_ITS ---
Author Organization [facility] Address [address] [place] [address] Care Team Providers Care Career Development Coordinator Name Role Phone John Cartagena Unavailable [phone] Kira Heredia Unavailable Unavailable Allergies No Known Allergies Reason For Referral Reason Please contact magdalena stevens to schedule for EMG Right Upper Extremity, thank you. Diagnosis 1 Right hand paresthes ia (R20.2) Referral Organization [facility] Referring Provider First Name John Referring Provider Last Name Mitzi Referring Provider Speciality Orthopedic Surgery Referred Organization [facility] Referred Address [address] [place] [address],[place], [place],[address], General Notes Vonda Barahona 2024 09:14:14 AM [...] Problem Status W/U Status Risk Notes Problem [id number] Right hand paresthesia (R20.2) Active confirmed Vital Signs Height 5'6 in 09/10/2024 Weight 225 lbs 09/10/2024 BMI 36.31 09/10/2024 Encounters Encounter Location Date [facility] [address] [facility] [place] [address] [place] [address] 09/10/2024 Johnedwina Cartagena Right hand paresthesia R20.2 [...] Right Upper Extremity, thank you., [address], [place], [address], Next Appt Details Follow Up: AFTER EMG, Reason : Progress Notes * TATE ENCARNACIONDOB: 1 (54 yo M)Acc No.[id number]:09/10/2024 Patient: TATE PAVON Provider: Heena Cartagena MD :1970 A ge:54 Y S ex:Male Date:09/10/2024 Address:[address] [place], [place] [id number] Subjective: * Chief Complaints: * 1 . [...] containing alcohol in the past year? Y es,�How often did you have a drink containing [...] Electronic signature of Sami Cartagena MD on 10/15/2024 at 07:57 PM EDT Sign off status: Pending * Provider: Heena Cartagena MD Date: 0 09/10/2024 Generated for Keisha garcia/Claribel/Eusebiosmitting on: 0 10/15/2024 07:57 PM EDT History and Physical Notes * [...]
--- OUTSIDE RECORDS SUMMARY | 2024-09-27 10:00 | XMS_ITS ---
Author Organization [facility] in [place] Address [address] [place] [address] Care Team Providers Care Optical Store Manager Name Role Phone Kira Heredia Primary Care Provider [phone] Allergies No Known Allergies Reason For Referral Reason MALCOLM, fatigue Diagnosis 1 Sleep apnea (G47.30) Referral Organization [facility] Referring Provider First Name Kira [...] Oil 1000 MG TAKE 1 CAPSULE BY [facility] THREE TIMES DAILY FOR 30 DAYS for [...] Notes Problem Mixed anxiety and depressive disorder (141107181) Anxiety and depression (F41.8) Active confirmed Problem Chronic fatigue (R53.82) Active confirmed Problem Obese class I (finding) ([id number]) Class 1 obesity (E66.9) Active confirmed Vital Signs Weight 222.6 lbs 09/27/2024 Height 67 in 09/27/2024 Blood pressure systolic 142 mm Hg 09/28/19 25 Blood pressure diastolic 90 mm Hg 025 BMI 34.86 kg/m2 09/27/2024 Encounters Encounter Location Date Provider Diagnosis [facility] [address] [place] [address] 09/27/2024 Kira Heredia Hypothyroidism E03.9 ; Sleep [...] * Kody ENCARNACIONDOB: 1 (54 yo M)Acc No.[id number]:09/27/2024 Progress Note Patient: Kody PAVON Provider: Herrera Heredia ([facility]), DOOR CLAMP OPERATOR :1970 A ge:54 Y S ex:Male Date:09/27/2024 Address:[address] [place], [place] [id number] Check In:01:46 PM ESTCheck O ut:02:23 PM [...] discharge d enies. N cathy congestion d enies.�Sore throat d enies. C ardiovascular: Chest tightness/ heavy pressure d enies. R apid heart rate d enies. S welling of extremities d enies. C hest pain d enies. � R espiratory: Productive cough d enies. C hest pain d enies. C ough d enies. S hortness of breath d enies. W heezing d enies. � G astrointestinal: Abdominal pain d enies. C onstipation d enies. D ecreased appetite d enies. D iarrhea d enies. N ausea d enies. V omiting�denies. G enitourinary: Urinary incontinence d enies. P ainful urination d enies. M usculoskeletal: Back pain d enies. N linsey pain d enies. M uscle aches d enies. S kin: Rash d enies. S kin lesion(s) d enies. � * Active Problem List E03.9 Hypothyroidism Modified [...] , 2 sister(s) . 3 son(s) . .� * Social History: T obacco Use: T [...] Orally Twice a day , Discontinued Zenpep(Pancrelipase (Inw-Twsj-Pslp)) 67[address] UNIT Capsule Delayed Release Particles as directed [...] 2 . S leep apnea - G47.30 �3. L ow testosterone - E29.1 4 . A nxiety and depression - F41.8 � 5 . C hronic fatigue - R53.82 [...] MG, 1 capsule, Orally, Once a day. � Notes: stop prozac doesnt think helping trial of wellbutrin fu 1 m consider counseling 5. C hronic fatigue Notes: stress test WNL discussed getting thyroid and test levels normalized treat sleep apnea see how hes doing after those 3 treated also work on mental health * Preventive Medicine: Screenings/Counseling: B MT ACTION PLAN Above Normal BMI Follow-up D ietary management education, guidance, and counseling See treatment section of progress note for complete details of management plan. * Follow Up: p rn,4 Weeks * * Electronically signed by Pinky Heredia , CATIA, SURVEILLANCE SYSTEM MONITOR.DOOR CLAMP OPERATOR.[id number] on 10/01/2024 at 09:13 AM EDT Sign off status: Completed Visit Status: Rdaha HK (Check Out) true * Provider: Herrera Heredia ([facility]), DOOR CLAMP OPERATOR Date: 0 09/27/2024 Generated for Keisha garcia/Claribel/Antonetteitting on: 0 10/15/2024 07:57 PM EDT History [...] Provider Referred Provider Not es 09/27/2024 Kira Heredia, Kenzie FOWLER, eloyu e
--- OUTSIDE RECORDS SUMMARY | 2024-09-27 12:08 | XMS_ITS ---
Author Organization [facility] in [place] Address [address] [place] [address] Care Team Providers Care Soup Mixer Name Role Phone Kira Heredia Primary Care Provider REASON FOR VISIT lab results Medications Medication SIG (Take, Route, Frequency, Duration) Notes Start Date End Date Status Levothyroxine Sodium 150 MCG TAKE 1 TABL ET BY MOUTH EVERY DAY for 30 days Active Encounters Encounter Location Date Provider Diagnosis [address] [address] 09/27/2024 Kira Heredia Hypothyroidism E03.9 Assessments Encounter [...] * Kody ENCARNACIONDOB: 1 (54 yo M)Acc No.[id number]:09/27/2024 Patient: Kody PAVON :1970 A ge:54 Y S ex:Male Address:[address], [place] [address] * Refills Refill Levothyroxine Sodium Capsule, 150 [...] Date: Generated for Keisha garcia/Claribel/Renan on: 0 10/15/2024 07:57 PM EDT
--- OUTSIDE RECORDS SUMMARY | 2024-10-15 08:45 | XMS_ITS ---
Author Name Auto Generated Organization OHIP Care Team Providers Care Beekeeper Name Role Phone González Sutton Attending Unavaila ble SarminGonzález sherwood Attending Unavaila ble SarminGonzález sherwood Attending Unavaila ble MoTeena perazaamad ADo Attending Unavailable Mouchli, Mohamad A. Referring Unavailable Ji WILDER Attending Unavailable Ji WILDER Attending Unavailable Ji WILDER Attending Unavailable Ji WILDER Attending Unavailable MouchliRitad A. Attending Unavailable Mouchli, Mohamad A. Admitting Unavailable Mouchli, Mohamad A. Referring Unavailable Mouchli Mohamad A. Attending Unavailable Mouchli, Mohamad A. Admitting Unavailable Mouchli, Mohamad A. Referring Unavailable Mouchli, Mohamad A. Attending Unavailable Mouchli, Mohamad A. Admitting Unavailable Mouchli, Mohamad A. Attending Unavailable Mouchli, Mohamad A. Admitting Unavailable Mouchli, Mohamad A. Attending Unavailable Mouchli, Mohamad A. Admitting Unavailable JUAN ANTONIO WILBURN Attending Unavailable GENOVEVA CHILDS Referring Unavailable SANDRA RODRIGUEZ Attending Unavailable KIRA GARRISON Referring Unavailable JUAN ANTONIO WILBURN Attending Unavailable GENOVEVA CHILDS Referring Unavailable JUAN ANTONIO WILBURN Attending Unavailable GENOVEVA CHILDS Referring Unavailable JUAN ANTONIO WILBURN Attending Unavailable GENOVEVA CHILDS Referring Unavailable PROBLEMS No Problem Records Found PROCEDURES No Procedure Records Found RESULTS AMBULATORY VISIT SUMMARY Observed: 10/15 8:45 AM Status: F Source: [facility] Ambulatory Visit Summary TATE ENCARNACION :1970 Visit Date:10/15/2024 Ambulatory Visit Instructions Your Care Team Attending Physician - AURORA ROMERO, Ji Be Primary Care Physician - KIRA GARRISON CNP This Is Your Medications List cholecalciferol (Vitamin [...] you for choosing us for your care. Patient Portal You may access all of your results and other medical record information on our secure patient portal. If you are not signed up for this yet, please contact [employer] at [phone] to get signed up today. Language Information Language assistance services are available as needed. AMBULATORY VISIT SUMMARY Observed: 09/14 8:00 AM Status: F Source: [facility] Ambulatory Visit Summary TATE ENCARNACION :1970 Visit Date:09/14/2024 Ambulatory Visit Instructions Your Care Team Attending Physician - AURORA ROMERO, Ji Be Primary Care Physician - KIRA GARRISON CNP This Is Your Medications List cholecalciferol (Vitamin [...] you for choosing us for your care. PATIENT EDUCATION Observed: 09/10/2024 3:47 PM Status: F Source: [facility] Patient Education Urology Hypogonadism, Male Male hypogonadism [...] Follow these instructions at home: ??? Take zbii-aee-uaaxjcy and prescription medicines only as told by [...] provider. Document Revised: 11/27/2020 Document Reviewed: 11/27/2020 [employer] Patient Education ? 2023 [employer]. UROLOGY OFFICE/CLINIC NOTE Observed: 05/2024 2:08 PM Status: F Source: [facility] Urology Office/Clinic Note Chief Complaint 4 month [...] and history for this patient from Dr. Wilder. I have reviewed and verified the staff [...] [facility] [address], [place] [address] [phone] Additional Instructions: 4 mos w/ T level Patient Education Hypogonadism, Male I, Nirmala Lama, personally scribed for Dr. Wilder on 09/10/2024 16:16:02. . Documentation recorded by the scribe, Nirmala Lama, accurately reflects the services(s) I performed and decisions made by me. Authenticated by Dr. Wilder on 09/10/2024 16:19:16. Problem List/Past Medical History [...] Medication Allergies Social History Alcohol Current. Beer. 3-5 times per week., 09/09/2024 Current. Beer. Daily., 04/21/2024 Substance Abuse Current. Marijuana. Daily., 09/09/2024 Never., 04/21/2024 Tobacco Never (less than 100 [...] vaccine, inactivated - Not Given Patient Refuses Lab Results Ambulatory Point of Care Results Bilirubin Urine Dipstick: Negative (09/10/24 15:27:00) Blood Urine Dipstick: Negative (09/10/24 15:27:00) Glucose Urine Dipstick: Negative (09/10/24 15:27:00) Ketones Urine Dipstick: Negative (09/10/24 15:27:00) Leukocytes Urine Dipstick: Negative (09/10/24 15:27:00) Nitrite Urine Dipstick: Negative (09/10/24 15:27:00) Protein Urine Dipstick: Negative (09/10/24 15:27:00) Specific [place] Urine Dipstick: >=1.030 (09/10/24 15:27:00) Urine Appearance Urine Dipstick: Clear (09/10/24 15:27:00) Urine Color Urine Dipstick: Yellow (09/10/24 15:27:00) Urobilinogen Urine Dipstick: Normal 0.2-1 EU/dl (09/10/24 15:27:00) pH Urine Dipstick: 5.5 (09/10/24 15:27:00) Result Comment: Electronical ly Signed By: Ji WILDER MD\.br\Date and Time Signed: 09/10/24 16:19 EDT\.br\Electronically Co-Signed By: Nirmala Lama\.br\Date and Time Co-Signed: 09/10/24 16:16 EDT AMBULATORY VISIT SUMMARY Observed: 09/10 2:08 PM Status: F Source: [facility] Ambulatory Visit Summary TATE ENCARNACION :1970 Visit Date:09/10/2024 Ambulatory Visit Instructions Your Diagnosis Hypogonadism male ED (erectile dysfunction) BPH with urinary obstruction Screening PSA (prostate specific antigen) Your Care Team Attending Physician - Ji WILDER MD Primary Care Physician - KIRA GARRISON [...] Schedule the Following Appointments Follow Up with iJ WILDER MD, URL When: Comments: 4 mos w/ T level Where: [facility] [address] , [place] [address]- [phone] Medications What How Much When Why Instructions Unchanged tadalafil (tadalafil 20 mg Tab) 1 Tablets By Mouth As Directed as needed for for erectile dysfunction ED (erectile dysfunction) Pt to take one tab 1 hour prior to sexual activity. Do not exceed 20mg in 24 hours. Pickup at [facility] Unchanged cholecalciferol (Vitamin D3 50 mcg [...] physician if questions or concerns Pharmacy Information [facility]: [address] [place], [place] [phone] Allergies No Known Allergies No Known Medication [...] Follow these instructions at home: ??? Take jvxq-xer-genifmo and prescription medicines only as told by [...] provider. Document Revised: 11/27/2020 Document Reviewed: 11/27/2020 [employer] Patient Education ??? 2023 [employer]. GASTROENTEROLOGY OFFICE/CLINIC NOTE Obse rved: 08/16/2024 1:00 PM Status: F Source: [facility] Gastroenterology Office/Clin ic Note Chief Complaint Diarrhea [...] first-degree relative, we will send him to [facility] for genetic counseling the based on [...] Observed: 07/17 12:36 PM Status: F Source: [facility] Ambulatory Visit Summary TATE ENCARNACION :1970 Visit Date:07/17/2024 Ambulatory Visit Instructions Your Diagnosis Irritable bowel syndrome with diarrhea Blood in stool Fatty liver Your Care Team Attending Physician - Lesley ROMERO, González Cadena Primary Care Physician - KIRA GARRISON CNP [...] ROMERO, Ji Be Where: [facility] [place] [id number]- Medications What How Much When Why Instructions Changed pancrelipase (Creon 36,000 units oral delayed release capsule) 2 Capsules By Mouth 3 times a day Pickup at [facility] Unchanged cholecalciferol (Vitamin D3 50 mcg [...] physician if questions or concerns Pharmacy Information [facility]: [address] [place], [place] [phone] Allergies No Known Allergies No Known Medication [...] rved: 07/17/2024 12:36 PM Status: F Source: [facility] Gastroenterology Office/Clin ic Note Chief Complaint diarrhea [...] When Contact Information Lesley ROMERO, González Cadena, GAS, MED In 6 weeks [address], [address] [phone] Additional Instructions: Problem List/Past Medical History Ongoing [...] Refuses Result Comment: Electronical ly Signed By: Lesley ROMERO, González Cadena\.br\Date and Time Signed: 07/17/24 13:53 EDT\.br\Electronically Co-Signed By: Syeda Chavez MA\.br\Date and Time Co-Signed: 07/17/24 13:51 EDT REMINDERS Observed: 06/05/2024 8:25 AM Status: F Source: [facility] Reminders From: Glo Hilario I To: [facility] - Reminders/Recalls; Sent: 06/05/2024 08:25:46 EST Show up: 03/11/2031 08:25:00 EST Subject: Colonoscopy recall Due Date/Time: 05/11/2031 08:25:00 EST Reminder/Recall [address] Sutton 05/11/24 REMINDERS Observed: 05/22/2024 12:59 PM Status: C Source: [facility] Reminders From: Cheryl Christian To: Gina Barbosa; [...] rved: 05/21/2024 9:41 AM Status: F Source: [facility] Gastroenterology Office/Clin ic Note Chief Complaint follow [...] Observed: 025 9:44 AM Status: F Source: [facility] Discharge Instructions TATE ENCARNACION :1970 Visit Date:05/11/2024 Inpatient Discharge Instructions Your Care Team Admitting Physician - Alejandra Hayden MD Referring Physician - Alejandra Hyaden MD Reason for Your Visit IRRITABLE BOWEL [...] Follow-Up Appointments Tuesday 9:00 AM EST With: González Sutton MD Where: [facility] [address] [place] [address] [place] [address]- Tuesday 9:45 AM EDT With: Ji WILDER MD Where: [facility] [address] [place] [address]- Medications What How Much When Why Instructions Next Dose New omeprazole (omeprazole 40 mg Cap-DR) 1 Capsules By Mouth 2 times a day Refills: 3 Pickup at [facility] Unchanged cholecalciferol (Vitamin D3 50 mcg [...] a day (in the morning) Pharmacy Information [facility]: [address] [place], [place] [phone] Test Results No qualifying data available. Allergies [...] ask your health care provider. ??? Take ajuw-xqx-mwryutu and prescription medicines only as told by your health care provider. ? Do not use lnxw-kig-wznyrzt medicines in place of prescription medicines unless [...] ask your health care provider. ??? Take oujs-ppx-zbumdrt and prescription medicines only as told by your health care provider. Do not use ndvd-wwl-psvcgqd medicines in place of prescription medicines unless your health care provider approves. ??? Limit your alcohol and caffeine intake. ??? Keep all follow-up visits. This is important. This information is not intended to replace advice given to you by your health care provider. Make sure you discuss any questions you have with your health care provider. Document Revised: 11/06/2021 Document Reviewed: 11/06/2021 [employer] Patient Education ??? 2023 [employer]. Colonoscopy Care After Surgery Please read [...] unsweetened, w/added ascorbic acid 1 cup 0.5 Buckner 1 cup 0.7 Vegetables Cooked Green beans 1 cup 4.0 Carrots 1/2 cup sliced 2.3 Peas 1 cup 8.8 Potato (baked, with skin) 1 medium potato 3.8 Raw [place] (with peel) 1 cucumber 1.5 Lettuce 1 [...] 8.7 Peanuts 1/2 cup 7.[address] [facility] 2013. SEEK IMMEDIATE MEDICAL CARE IF: You [...] Nutrient Database for Standard Reference. Available at http://www.Geddit.usda.gov/fnic/foodcomp/search/. Information adapted from: [facility]??? Patient Information ???2009 [employer]. Etherstack 2012 http://www.Orckit Communications/contents/ginlnsvjuwom-pdtkbde-mwseph-the-basics Colon Polyps Colon polyps are tissue growths [...] liquor (44 mL). General instructions ??? Take ibbg-lom-phawddk and prescription medicines only as told by [...] provider. Document Revised: 07/16/2020 Document Reviewed: 07/16/2020 [employer] Patient Education ??? 2023 [employer]. Gluten-Free Diet for Celiac Disease, Adult The [...] are safe to eat. In the [place] [employer] are also required to list common [...] how a food is processed, ask the brass molder helper. What foods can I eat? Fruits All [...] cereals made from cornmeal or GF grains. Holton, rice, and wild rice. Some rice noodles or dick noodles. Arrowroot starch, corn bran, corn flour, corn germ, cornmeal, corn starch, potato flour, potato starch flour, and rice bran. Plain, brown, and sweet rice flours. Rice nigerian, soy flour, and tapioca starch. Meats and [...] or meat loaves. Bread-containing products, such as Japanese steak, croquettes, meatballs, and meatloaf. Most tuna canned in vegetable broth. Dale with hydrolyzed vegetable protein (HVP) injected as [...] provider. Document Revised: 02/16/2022 Document Reviewed: 02/16/2022 [employer] Patient Education ??? 2023 [employer]. Upper Endoscopy, Adult, Care After After the [...] activities are safe for you. ??? Take ofji-oak-hxgwwnx and prescription medicines only as told by [...] provider. Document Revised: 07/07/2022 Document Reviewed: 07/07/2022 [employer] Patient Education ??? 2023 [employer]. Esophagitis Esophagitis is inflammation of the esophagus. [...] these instructions at home: Medicines ??? Take yrik-sqr-uoqwvqb and prescription medicines only as told by [...] vinegar, hot sauces, and barbecue sauce. ? [place] fruit juices and citrus fruits, such as oranges, ronald, and limes. ? Tomato-based foods, such as red sauce, chili, salsa, and pizza with red sauce. ? Fried and fatty foods, such as donuts, guatemalan fries, potato chips, and high-fat dressings. ? [...] provider. Document Revised: 10/06/2020 Document Reviewed: 10/06/2020 [employer] Patient Education ??? 2023 [employer]. Celiac Disease Celiac disease is a condition [...] provider. Document Revised: 02/16/2022 Document Reviewed: 02/16/2022 [employer] Patient Education ??? 2023 [employer]. Gastritis, Adult Gastritis is inflammation of the [...] medicines. These include steroids, antibiotics, and some wqdh-lkr-ijedlca medicines, such as aspirin or ibuprofen. ??? [...] these instructions at home: Medicines ??? Take nvdg-vvm-mfejvpj and prescription medicines only as told by [...] provider. Document Revised: 08/01/2021 Document Reviewed: 08/01/2021 [employer] Patient Education ??? 2023 [employer]. Common Emergency Awareness Tips IS IT A [...] signed up for this yet, please contact [employer] at [phone] to get signed up today. Patient Name: TATE ENCARNACION I have received this information and my questions have been answered. Patient/Stock Ranch Supervisor Name: Patient/Stock [employer] Supervisor Signature: Relationship to Patient: Witness Name/Signature: Date: Result Comment: Electronical ly Signed By: Cy SADLER, Mariama\.br\Date and Time Signed: 05/11/24 09:44 EST PATIENT EDUCATION - TEXT Observed: 05/11 9:44 AM Status: C Source: [facility] Patient Education - Text Colonoscopy Care After [...] unsweetened, w/added ascorbic acid 1 cup 0.5 Buckner 1 cup 0.7 Vegetables Cooked Green beans 1 cup 4.0 Carrots 1/2 cup sliced 2.3 Peas 1 cup 8.8 Potato (baked, with skin) 1 medium potato 3.8 Raw [place] (with peel) 1 cucumber 1.5 Lettuce 1 cup shredded 0.5 Tomato 1 medium tomato 1.5 Spinach 1 cup 0.7 Legumes Baked beans, canned, no salt added 1 cup 13.9 Kidney beans, canned 1 cup 13.6 Spnan beans, canned 1 cup 11.6 Lentils, boiled [...] 8.7 Peanuts 1/2 cup 7.9 [facility]. SEEK IMMEDIATE MEDICAL CARE IF: You [...] Reference. Available at http://www.nal.usda.gov/fnic/foodcomp/search/. Information adapted from: [facility]??? Patient Information ???2009 AngelList. UpDate 2012 http://www.Orckit [employer]/contents/gdkzooyxhnyn-nndylfh-ivudci-the-basics Gastroenterology Peptic Ulcer A peptic ulcer is [...] ask your health care provider. ??? Take wknj-opg-vbryydf and prescription medicines only as told by your health care provider. ? Do not use xsae-veu-szgnyqr medicines in place of prescription medicines unless [...] ask your health care provider. ??? Take xndo-oqo-mclqbqd and prescription medicines only as told by your health care provider. Do not use iaks-nsi-fcceklj medicines in place of prescription medicines unless your health care provider approves. ??? Limit your alcohol and caffeine intake. ??? Keep all follow-up visits. This is important. This information is not intended to replace advice given to you by your health care provider. Make sure you discuss any questions you have with your health care provider. Document Revised: 11/06/2021 Document Reviewed: 11/06/2021 [employer] Patient Education ? 2023 [employer].Upper Endoscopy, Adult, Care After After the procedure, [...] activities are safe for you. ??? Take twei-puq-ijplnhg and prescription medicines only as told by [...] provider. Document Revised: 07/07/2022 Document Reviewed: 07/07/2022 [employer] Patient Education ? 2023 [employer].Esophagitis Esophagitis is inflammation of the esophagus. The [...] these instructions at home: Medicines ??? Take utpw-guz-yqcqzns and prescription medicines only as told by [...] vinegar, hot sauces, and barbecue sauce. ? [place] fruit juices and citrus fruits, such as oranges, ronald, and limes. ? Tomato-based foods, such as red sauce, chili, salsa, and pizza with red sauce. ? Fried and fatty foods, such as donuts, guatemalan fries, potato chips, and high- fat dressings. [...] provider. Document Revised: 10/06/2020 Document Reviewed: 10/06/2020 [employer] Patient Education ? 2023 [employer].Immunology Gluten-Free Diet for Celiac Disease, Adult The [...] how a food is processed, ask the brass molder helper. What foods can I eat? Fruits All [...] cereals made from cornmeal or GF grains. Holton, rice, and wild rice. Some rice noodles or dick noodles. Arrowroot starch, corn bran, corn flour, corn germ, cornmeal, corn starch, potato flour, potato starch flour, and rice bran. Plain, brown, and sweet rice flours. Rice nigerian, soy flour, and tapioca starch. Meats and [...] or meat loaves. Bread-containing products, such as Japanese steak, croquettes, meatballs, and meatloaf. Most tuna canned in vegetable broth. Dale with hydrolyzed vegetable protein (HVP) injected as [...] provider. Document Revised: 02/16/2022 Document Reviewed: 02/16/2022 [employer] Patient Education ? 2023 [employer].Celiac Disease Celiac disease is a condition in [...] provider. Document Revised: 02/16/2022 Document Reviewed: 02/16/2022 [employer] Patient Education ? 2023 [employer] Inc.Infectious Disease Gastritis, Adult Gastritis is inflammation [...] medicines. These include steroids, antibiotics, and some fiab-mdc-trvivuv medicines, such as aspirin or ibuprofen. ??? [...] these instructions at home: Medicines ??? Take nlgq-mnq-rorcxwi and prescription medicines only as told by [...] provider. Document Revised: 08/01/2021 Document Reviewed: 08/01/2021 [employer] Patient Education ? 2023 [employer].Oncology Colon Polyps Colon polyps are tissue growths [...] liquor (44 mL). General instructions ??? Take ysjm-jdf-mrioosz and prescription medicines only as told by [...] provider. Document Revised: 07/16/2020 Document Reviewed: 07/16/2020 [employer] Patient Education ? 2023 [employer]. PROGRESS NOTE-PHYSICIAN Observed: 2024 9:37 AM Status: F Source: [facility] Progress Note-Physician Patient: TATE ENCARNACION Age: 53 years Sex: Male : 1970 Associated Diagnoses: None Author: Cody Tay MD Postoperative Information Postoperative disposition: Postoperative disposition: To PACU. Optimetrix number: Optimetrix number [id number]. Anesthetic utilized: General. Health Status Allergies: Allergic [...] Observed: 025 9:30 AM Status: F Source: [facility] Discharge Instructions TATE ENCARNACION :1970 Visit Date:05/11/2024 Inpatient Discharge Instructions Your Care Team Admitting Physician - Alejandra Hayden MD Referring Physician - Alejandra Hayden MD. Reason [...] EST With: Lesley ROMERO, González Cadena Where: [facility] [address] [place] [address] [place] [address]- Tuesday 9:45 AM EDT With: Ji WILDER MD Where: [facility] [address] [facility] [place] [address] Medications What How Much When Why Instructions Next Dose New omeprazole (omeprazole 40 mg Cap-DR) 1 Capsules By Mouth 2 times a day Refills: 3 Pickup at [facility] Unchanged cholecalciferol (Vitamin D3 50 mcg [...] a day (in the morning) Pharmacy Information [facility]: [address] [place], [place] [phone] Test Results No qualifying data available. Allergies [...] are safe to eat. In the [place] [employer] are also required to list common [...] how a food is processed, ask the brass molder helper. What foods can I eat? Fruits All [...] cereals made from cornmeal or GF grains. Holton, rice, and wild rice. Some rice noodles or dick noodles. Arrowroot starch, corn bran, corn flour, corn germ, cornmeal, corn starch, potato flour, potato starch flour, and rice bran. Plain, brown, and sweet rice flours. Rice nigerian, soy flour, and tapioca starch. Meats and [...] or meat loaves. Bread-containing products, such as Japanese steak, croquettes, meatballs, and meatloaf. Most tuna canned in vegetable broth. Dale with hydrolyzed vegetable protein (HVP) injected as [...] provider. Document Revised: 02/16/2022 Document Reviewed: 02/16/2022 [employer] Patient Education ??? 2023 [employer]. Upper Endoscopy, Adult, Care After After the [...] activities are safe for you. ??? Take lyzc-icl-rmavnaf and prescription medicines only as told by [...] provider. Document Revised: 07/07/2022 Document Reviewed: 07/07/2022 [employer] Patient Education ??? 2023 [employer]. Esophagitis Esophagitis is inflammation of the esophagus. [...] these instructions at home: Medicines ??? Take deyh-fln-mwmbnoa and prescription medicines only as told by [...] vinegar, hot sauces, and barbecue sauce. ? [place]park fruit juices and citrus fruits, such as oranges, ronald, and limes. ? Tomato-based foods, such as red sauce, chili, salsa, and pizza with red sauce. ? Fried and fatty foods, such as donuts, guatemalan fries, potato chips, and high-fat dressings. ? [...] provider. Document Revised: 10/06/2020 Document Reviewed: 10/06/2020 [employer] Patient Education ??? 2023 [employer]. Celiac Disease Celiac disease is a condition [...] provider. Document Revised: 02/16/2022 Document Reviewed: 02/16/2022 [employer] Patient Education ??? 2023 [employer]. Gastritis, Adult Gastritis is inflammation of the [...] medicines. These include steroids, antibiotics, and some vpfv-wrj-rzcfeto medicines, such as aspirin or ibuprofen. ??? [...] these instructions at home: Medicines ??? Take bghj-xgx-healhyc and prescription medicines only as told by [...] provider. Document Revised: 08/01/2021 Document Reviewed: 08/01/2021 [employer] Patient Education ??? 2023 [employer]. Common Emergency Awareness Tips IS IT A [...] completing your survey. Thank you for choosing [facility] Award Nomination The [employer]DE[employer] (Diseases Attacking the [...] signed up for this yet, please contact [employer] at [phone] to get signed up today. Patient Name: TATE ENCARNACION I have received this information and my questions have been answered. Patient/Stock Ranch Supervisor Name: Patient/Stock [place] Supervisor Signature: Relationship to Patient: Witness Name/Signature: Date: Result Comment: Electronical ly Signed By: Cy SADLER, Mariama\.br\Date and Time Signed: 05/11/24 09:30 EST ENDOSCOPIC PROCEDURE REPORT - OTHER Observed: 05/11/2024 9:05 AM Status: F Source: [facility] Endoscopic Procedure Report - Other Patient: TATE [...] qAM, # 75 gram, Refills(s) 3, Pharmacy: [facility], 165, cm, 05/07/24 9:19:00 EST, Height/Length Dosing, 108.1, kg, 05/07/24 9:19:00 EST, Weight Dosing Questran 4 g/9 g oral powder: = 1 packet(s), Oral, BID, # 60 EA, Refills(s) 0, Pharmacy: [facility], 170, cm, 04/24/24 8:57:00 EST, Height/Length Dosing, 108.6, kg, 04/24/24 8:57:00 EST, Weight Dosing Zenpep 60,000 units-189,600 units-252,600 units oral delayed release capsule: See Instructions, 300 cap(s), Refill(s) 3, Take 2 caps with each meal and 1 with each snack, [facility], 170, cm, 04/24/24 8:57:00 EST, Height/Length Dosing, 108.6, kg, 04/24/24 8:57:00 EST, Weight Dosing tadalafil 20 mg Tab: 20 mg = 1 tab(s), Oral, As Directed, PRN for erectile dysfunction, Pt to take one tab 1 hour prior to sexual activity. Do not exceed 20mg in 24 hours., # 30 tab(s), Refills(s) 0, [facility]acy: [facility], 165, cm, 05/07/24 9:19:00 EST, Hei... [...] terminal ileum Images Procedure images: Rec1_hd_video_2025_01_[id number].jpg Rec1_hd_video__T09_12_57_370.jpg Rec1_hd_video__09_11_15_539.jpg Rec1_hd_video__T09_06_07_071.jpg Rec1_hd_video__T09__04_714.jpg Rec1_hd_video__T09__57_958.jpg Rec_hd_video____44_461.jpg Rec1_hd_video____17_731.jpg . Post-Procedure Complications: none. Estimated [...] hment - attachment storage system not supported [id number] Can be viewed in source system Missing Attachment - attachment storage system not supported [id number] Can be viewed in source systemMissing Attachment - attachment storage system not supported [id number] Can be viewed in source systemMissing Attachment - attachment storage system not supported [id number] Can be viewed in source systemMissing Attachment - attachment storage system not supported [id number] Can be viewed in source systemMissing Attachment - attachment storage system not supported [id number] Can be viewed in source systemMissing Attachment - attachment storage system not supported [id number] Can be viewed in source systemMissing Attachment - attachment storage system not supported [id number] Can be viewed in source system ENDOSCOPIC PROCEDURE REPORT - OTHER Obse rved: 05/11/2024 8:41 AM Status: C Source: [facility] Endoscopic Procedure Report - Other Patient: TATE [...] rule out celiac disease Images Procedure images: Rec1_hd_video_2024__T08_51_12_669.jpg Rec1_hd_video__31T08_50_51_165.jpg Rec1_hd_video__T08_50_47_094.jpg Rec1_hd_video__T08_50_22_021.jpg Rec1_hd_video__T08_49_24_244.jpg Rec1_hd_video__T08_48_12_320.jpg Rec1_hd_video__T08_48_07_481.jpg Rec1_hd_video__T08_47_45_346.jpg Rec1_hd_video__T08_47_21_276.jpg [...] hment - attachment storage system not supported [id number] Can be viewed in source system Missing Attachment - attachment storage system not supported [id number] Can be viewed in source systemMissing Attachment - attachment storage system not supported [id number] Can be viewed in source systemMissing Attachment - attachment storage system not supported 2769546 Can be viewed in source systemMissing Attachment - attachment storage system not supported 0741323 Can be viewed in source systemMissing Attachment - attachment storage system not supported 2570400 Can be viewed in source systemMissing Attachment - attachment storage system not supported [id number] Can be viewed in source systemMissing Attachment - attachment storage system not supported 5377949 Can be viewed in source systemMissing Attachment - attachment storage system not supported [id number] Can be viewed in source system SURGICAL PATHOLOGY REPORT Observed: 04/13 8:38 AM Status: F Source: [place] [address] [place] [address]- Surgical Pathology Report Collected Date/Time: 05/11/2024 08:38 [...] is entirely submitted in one cassette. (DC) DC:[facility] Microscopic Description Microscopic examination performed unless gross only specified. This report was transcribed using voice recognition technology and might contain unintended computerized tin can feeder errors.The use of one or more reagents in the above tests is regulated as an analyte specific reagent (ASR). The test or tests are ordered following initial H&E microscopic examination. The performance characteristics were determined by the [facility]. They have not been [...] recognition technology and might contain unintended computerized tin can feeder errors. Performed By: #### [id number] # ### [facility] [address] [place] [address] SURGICAL PATHOLOGY REPORT Observed: 04/13 8:38 AM Status: F Source: [facility] [address] [facility] [place] [address]- Surgical Pathology Report Collected Date/Time: 05/11/2024 08:38 [...] is entirely submitted in one cassette. (DC) DC:[facility] Microscopic Description Microscopic examination performed unless gross only specified. This report was transcribed using voice recognition technology and might contain unintended computerized tin can feeder errors.The use of one or more reagents in the above tests is regulated as an analyte specific reagent (ASR). The test or tests are ordered following initial H&E microscopic examination. The performance characteristics were determined by the [facility]. They have not been [...] recognition technology and might contain unintended computerized tin can feeder errors. Performed By: #### [id number] # ### [facility] [address] [place] [address] MAIN OR PACU II RECORD Observed: 025 8:35 AM Status: F Source: [facility] Main OR PACU II Record PACU Phase II Document Type FT Summary Primary Physician: González Sutton MD Finalized Date/Time: 05/11/24 10:02:45 Pt. Name: TATE ENCARNACION/Sex: 1970 Male Med Rec #: [id number] Physician: Alejandra Hayden MD Financial #: [id number] Pt. Type: O Room/Bed: / Admit/Disch: 05/11/24 [...] Observed: 05/11/2024 8:35 AM Status: C Source: [facility] Main OR Intraoperative Recor d IntraOp Document Type FT Summary Primary Physician: González Sutton MD Finalized Date/Time: 05/11/24 10:41:05 Pt. Name: TATE ENCARNACIONO.B./Sex: 1970 Male Med Rec #: [id number] Physician: Jackelyn ROMERO, Alejandra Kelly Financial #: [id number] Pt. Type: O Room/Bed: / Admit/Disch: 05/11/24 [...] Negrete RN, Sheldon Martines Role Performed Anesthesiologist Patrol Officer - Primary Scrub - Primary Furniture Packer Time In 05/11/24 08:30:00 05/11/24 08:30:00 05/11/24 [...] and tissue Entry 1 Skin Integrity Intact, Rice, Warm, & Skin Abnormality No Dry Outcomes [...] caused by extraneous objects Transport To OR FT Pre-Care Text: Transports according to individual needs. [...] injury related to transfer/transport Departure From OR FT Pre-Care Text: Transports according to individual needs. Evaluates for signs and symptoms of skin and tissue injury as a result of transfer or transport. Entry 1 Via Cart Safety Precautions Safety Strap, Side Rails Up PostOp Destination PACU Transported By Becky Negrete RN Patient Status Stable Skin. Condition Intact, Rice, Warm, & Dry Airway Maintenance Oxygen in Use? No Airway Device N/A Outcomes Met? 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 Yes Verified Last Modified By: Becky Negrete RN 05/11/24 09:07:33 Post-Care Text: The patient received appropriate medication(s) safely administered during the perioperative period For Gonzales-Joshua please see scanned medication reconcilliation form for [...] Becky Negrete RN 05/11/24 09:15 Susan SADLER, REGLA, Bela 05/11/24 10:41 HISTORY AND PHYSICAL Observed: 5 8:23 AM Status: F Source: [facility] History and Physical Patient: TATE ENCARNACION Age: [...] qAM, # 75 gram, Refills(s) 3, [facility]: [facility], 165, cm, 05/07/24 9:19:00 EST, Height/Length Dosing, 108.1, kg, 05/07/24 9:19:00 EST, Weight Dosing Questran 4 g/9 g oral powder: = 1 packet(s), Oral, BID, # 60 EA, Refills(s) 0, Pharmacy: [facility], 170, cm, 04/24/24 8:57:00 EST, Height/Length Dosing, 108.6, kg, 04/24/24 8:57:00 EST, Weight Dosing Zenpep 60,000 units-189,600 units-252,600 units oral delayed release capsule: See Instructions, 300 cap(s), Refill(s) 3, Take 2 caps with each meal and 1 with each snack, [facility], 170, cm, 04/24/24 8:57:00 EST, Height/Length Dosing, 108.6, kg, 04/24/24 8:57:00 EST, Weight Dosing tadalafil 20 mg Tab: 20 mg = 1 tab(s), Oral, As Directed, PRN for erectile dysfunction, Pt to take one tab 1 hour prior to sexual activity. Do not exceed 20mg in 24 hours., # 30 tab(s), Refills(s) 0, Pharmacy: [facility], 165, cm, 05/07/24 9:19:00 EST, Hei... [...] hypertension (high blood pressure) / SNOMED CT 72941012 / Confirmed Thyroid function tests abnormal / SNOMED CT 499062245 / Confirmed Anemia of chronic disorder (low iron) / SNOMED CT 674308468 / Confirmed Bloating / SNOMED CT 210683431 / Confirmed Black stool / SNOMED CT 379821439 / Confirmed Chronic GERD / SNOMED CT 647073679 / Confirmed Decreased sexual desire / SNOMED CT 627479436 / Confirmed Alcohol drinker / SNOMED CT 312486542 / Confirmed Stress-related physiological response affecting medical condition / SNOMED CT 81202298 / Confirmed High triglycerides / SNOMED CT 487440009 / Confirmed Obesity due to excess calories / SNOMED CT 5303473632 / Confirmed ED (erectile dysfunction) / SNOMED CT 8605020282 / Confirmed Hypogonadism male / SNOMED CT 82957997 / Confirmed Screening PSA (prostate specific antigen) / SNOMED CT 684830686 / Confirmed BPH with urinary obstruction / SNOMED CT 1133082409 / Confirmed Acquired buried penis / SNOMED CT 464933160 / Confirmed Histories Past Medical History: No [...] (MAY 11:) Resp Rate 20 br/min (MAY 11:28) SBP H 141 mmHg (MAY 11:28) DBP H 93 mmHg (MAY 11:28) Weight 108.6 kg (MAY 11 07:18) BMI 37.58 (MAY 11 07:18) General: in Nad Abdomen: Soft, NTND Impression and Plan Impression: change in bowel habits Plan: -EGD and Colonoscopy Result Comment: Electronical ly Signed By: Lesley ROMERO, González Cadena\.br\Date and Time Signed: 05/11/24 08:34 EST PROGRESS NOTE-PHYSICIAN Observed: 2024 8:19 AM Status: F Source: [facility] Progress Note-Physician Patient: TATE ENCARNACION Age: 53 [...] qAM, # 75 gram, Refills(s) 3, [facility]acy: [facility], 165, cm, 05/07/24 9:19:00 EST, Height/Length Dosing, 108.1, kg, 05/07/24 9:19:00 EST, Weight Dosing Questran 4 g/9 g oral powder: = 1 packet(s), Oral, BID, # 60 EA, Refills(s) 0, Pharmacy: [facility], 170, cm, 04/24/24 8:57:00 EST, Height/Length Dosing, 108.6, kg, 04/24/24 8:57:00 EST, Weight Dosing Zenpep 60,000 units-189,600 units-252,600 units oral delayed release capsule: See Instructions, 300 cap(s), Refill(s) 3, Take 2 caps with each meal and 1 with each snack, [facility], 170, cm, 04/24/24 8:57:00 EST, Height/Length Dosing, 108.6, kg, 04/24/24 8:57:00 EST, Weight Dosing tadalafil 20 mg Tab: 20 mg = 1 tab(s), Oral, As Directed, PRN for erectile dysfunction, Pt to take one tab 1 hour prior to sexual activity. Do not exceed 20mg in 24 hours., # 30 tab(s), Refills(s) 0, Pharmacy: [facility], 165, cm, 05/07/24 9:19:00 EST, Logan... [...] Problems Acquired buried penis / SNOMED CT 786343626 / Confirmed Alcohol drinker / SNOMED CT 115886532 / Confirmed Anemia of chronic disorder (low iron) / SNOMED CT 699824988 / Confirmed Benign hypertension (high blood pressure) / SNOMED CT 55645508 / Confirmed Black stool / SNOMED CT 076906739 / Confirmed Bloating / SNOMED CT 008964681 / Confirmed BPH with urinary obstruction / SNOMED CT 0225168096 / Confirmed Chronic GERD / SNOMED CT 105221670 / Confirmed Decreased sexual desire / SNOMED CT 590983355 / Confirmed ED (erectile dysfunction) / SNOMED CT 6691992350 / Confirmed High triglycerides / SNOMED CT 972559427 / Confirmed Hypogonadism male / SNOMED CT 77515371 / Confirmed Obesity due to excess calories / SNOMED CT 8001243879 / Confirmed Screening PSA (prostate specific antigen) / SNOMED CT 234901073 / Confirmed Stress-related physiological response affecting medical condition / SNOMED CT 41835508 / Confirmed Thyroid function tests abnormal / SNOMED CT 675924546 / Confirmed Canceled: Low libido / SNOMED CT 998417396, Active Problems (16) Acquired buried penis Alcohol [...] (MAY 11:) DBP H 93 mmHg (MAY 11:28) Weight 108.6 kg (MAY 11 07:18) BMI 37.58 (MAY 11:18) Measurements from flowsheet : Measurements 05/11/2024 7:18 [...] review: No qualifying data available . Plan [place] [employer]hes[employer] (ASA) physical status classification: Class II. Anesthetic Preoperative Plan: Anesthesia General. Result Comment: Electronical ly Signed By: Jasvir ROMERO, Cody Alvarez\.br\Date and Time Signed: 05/11/24 08:21 EST MAIN OR PREOPERATIVE RECORD Observed: 8:15 AM Status: F Source: [facility] Main OR Preoperative Record Holding Area Document Type FT Summary Primary Physician: González Sutton MD Finalized Date/Time: 05/11/24 07:18:36 Pt. Name: SHASHANK TATEANNAMARIA Evans./Sex: 1970 Male Med Rec #: [id number] Physician: Alejandra Hayden MD Financial #: [id number] Pt. 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 Your Care Team Attending Physician - Ji WILDER MD Primary Care Physician - KIRA GARRISON [...] Appointments Tuesday 8:15 AM EST With: Where: [facility] Services Tuesday 9:00 AM EST With: Lesley ROMERO, González Cadena Where: [facility] [address] [place] [address] [place] [phone]- Tuesday 9:45 AM EDT With: AURORA ROMERO, Ji Be Where: [facility] [address] [place] [address]- You Need to Schedule the Following Appointments Follow Up with AURORA ROMERO, AV Harry When: Comments: 4 mos w/ PSA and T level Where: [facility] [address], [facility] [place] [phone] Medications What How Much When Why Instructions New tadalafil (tadalafil 20 mg Tab) 1 Tablets By Mouth As Directed as needed for for erectile dysfunction Pt to take one tab 1 hour prior to sexual activity. Do not exceed 20mg in 24 hours. Pickup at [facility] New testosterone (AndroGel Pump 20.25 mg/ 1.25 g (1.62%) transdermal gel) 2 Pump Topical Once a day (in the morning) Refills: 3 Pickup at [facility] Unchanged cholecalciferol (Vitamin D3 50 mcg [...] physician if questions or concerns Pharmacy Information [facility]: [address] [place] [id number] [phone] Allergies No Known Allergies No Known Medication [...] Follow these instructions at home: ??? Take bmrs-ghm-wbfbpxc and prescription medicines only as told by [...] provider. Document Revised: 11/27/2020 Document Reviewed: 11/27/2020 [employer] Patient Education ??? 2023 [employer]. Erectile Dysfunction Erectile dysfunction (ED) is the [...] these instructions at home: Medicines ??? Take uxbe-oqj-filvwfu and prescription medicines only as told by [...] provider. Document Revised: 06/24/2021 Document Reviewed: 06/24/2021 [employer] Patient Education ??? 2023 [employer]. UROLOGY OFFICE/CLINIC NOTE Observed: 9:57 AM Status: F Source: [facility] Urology Office/Clinic Note Chief Complaint New patient [...] Ji Be, URL [facility] [address] , [place] [address] [phone] Additional Instructions: 4 mos w/ PSA and T level Patient Education Hypogonadism, Male Erectile Dysfunction Nirmala Sherwood, personally scribed for Dr. Wilder on 05/07/2024 09:57:17. . Documentation recorded by the scribeNirmala, accurately reflects the services(s) I performed and [...] Observed: 05/07/2024 9:53 AM Status: C Source: [facility] Patient Education Urology Hypogonadism, Male Male hypogonadism [...] Follow these instructions at home: ??? Take bgtw-ife-yujccuy and prescription medicines only as told by [...] provider. Document Revised: 11/27/2020 Document Reviewed: 11/27/2020 [employer] Patient Education ? 2023 [employer]Erectile Dysfunction Erectile dysfunction (ED) is the inability [...] these instructions at home: Medicines ??? Take pekq-xoh-wdwqfzj and prescription medicines only as told by [...] provider. Document Revised: 06/24/2021 Document Reviewed: 06/24/2021 [employer] Patient Education ? 2023 [employer] US ABDOMEN, LIMITED Observed: 04/26/2024 8:31 AM Status: F Source: [facility] Exam Date/Time: 04/26/2024 09:07 EST Reason for [...] Rooney MD Transcribed by: MARIA C Technologist: DEONNA PANCREATIC ELASTASE, FECAL Collected: 04/25/2024 8:00 AM Status: F Source: [facility] TYPE CODE TESTS RESULT OUT OF RANGE REFERENCE UNITS LAB 09951-1([facility]) ELASTASE.PANC REATIC:MCNT:P T:STOOL:QN: 9 Low >200 Result Comment: Severe Pancr eatic Insufficiency: <100 Moderate Pancreatic Insufficiency: 100 - 200 Normal: >200 Performed at: [address] [id number] MD Alfredo Green Performed By: #### [id number] #### [facility] [address] [place] [address] CALPROTECTIN, FECAL Collected: 04/25/19 8:00 AM Status: F Source: [facility] TYPE CODE TESTS RESULT OUT OF RANGE REFERENCE UNITS LAB 40416-4(LOINC) CALPROTECTIN :MCNT:PT:STO OL:QN: 15 Unknown 0-120 mcg/gm Result Comment: Concentratio n Interpretation Follow-Up < 5 - 50 ug/g Normal None >50 -120 ug/g Borderline Re-evaluate in 4-6 weeks >120 ug/g Abnormal Repeat as clinically indicated Performed at: [facility] [id number] MD Alfredo Green Performed By: #### [id number] #### [facility] [address] [place] [address] CRP Collected: 04/24/2024 9:53 AM Status: F Source: [facility] TYPE CODE TESTS RESULT OUT OF RANGE REFERENCE UNITS LAB 1988-5(LOINC) C REACTIVE PROTEIN:MCNC:P T:SER/PLAS:QN: 0.2 Normal <=1.9 mg/dL Performed By: #### [id number] # ### [facility] [address] [place] [address] CELIAC DISEASE COMPREHENSIVE Collected: 04/24/2024 9: 53 AM Status: F Source: [facility] TYPE CODE TESTS RESULT OUT OF RANGE REFERENCE UNITS LAB 38912-1(LOIN C) GLIADIN PEPTIDE AB.IGA:ACNC:PT:SER :QN: 4 Unknown 0-19 unit(s) Result Comment: Negative 0 - 19 Weak Positive 20 - 30 Moderate to Strong Positive >30 LAB 84790-9(LOIN C) GLIADIN PEPTIDE AB.IGG:ACNC:PT:SER :QN: 2 Unknown 0-19 unit(s) Result Comment: Negative 0 - 19 Weak Positive 20 - 30 Moderate to Strong Positive >30 LAB 12280-3(LOIN C) TISSUE TRANSGLUTAMINASE AB.IGA:ACNC:PT:SER :QN: <2 Unknown 0-3 unit/mL Result Comment: Negative 0 - 3 Weak Positive 4 - 10 Positive >10 Tissue Transglutaminase (tTG) has been identified as the endomysial antigen. Studies have demonstr- ated that endomysial IgA antibodies have over 99% specificity for gluten sensitive enteropathy. LAB 98576-2(LOIN C) TISSUE TRANSGLUTAMINASE AB.IGG:ACNC:PT:SER :QN: <2 Unknown 0-5 unit/mL Result Comment: Negative 0 - 5 Weak Positive 6 - 9 Positive >9 LAB 20984-3(LOIN C) ENDOMYSIUM AB.IGA:PRTHR:PT:SE R:ORD: Negative Unknown Negative Result Comment: Serum is sli ghtly lipemic. LAB 2458-8(LOINC ) IGA:MCNC:PT:SER/PL :QN: 213 Unknown 90-386 mg/dL Result Comment: Performed at : [facility] [id number] PhD Franklin Pollard Performed By: #### [id number] #### [facility] [address] [place] [address] TESTOST TOTAL Collected: 04/24/2024 9:53 AM Status: F Source: [facility] TYPE CODE TESTS RESULT OUT OF RANGE REFERENCE UNITS LAB 2986-8(LOINC) TESTOSTERONE: MCNC:PT:SER/P LAS:QN: 194 Low 264-916 ng/dL Result Comment: Adult male r eference interval is based on a population of healthy nonobese males (BMI <30) between 19 and 39 years old. Mildred et.al. JCEM 2017,102;4651-1603. PMID: [id number]. Performed at: [facility] [id number] PhD Franklin Pollard Performed By: #### [id number] # ### [facility] [address] [place] [address] AMBULATORY VISIT SUMMARY Observed: 04/24 9:36 AM Status: F Source: [facility] Ambulatory Visit Summary TATE ENCARNACION :1970 Visit [...] EST With: Jackelyn ROMERO, Alejandra Kelly Where: [facility] [address] [place] [address]- You Need to Complete the Following C-Reactive [...] stool Chronic GERD Decreased sexual desire, pp_set_radiology_subspecialty, [facility] Medications What How Much When Why Instructions New cholestyramine (Questran 4 g/ 9 g oral powder) 1 Packets By Mouth 2 times a day Irritable bowel syndrome with diarrhea Bloating Black stool Chronic GERD Pickup at [facility] Unchanged cholecalciferol (Vitamin D3 50 mcg [...] physician if questions or concerns Pharmacy Information [facility]: [address] [place] [phone] Medications and Immunizations Administered Not Given influenza [...] Observed: 04/24/2024 9:30 AM Status: F Source: [facility] Gastroenterology Office/Clin ic Note Chief Complaint Alternating [...] BID, # 60 EA, Refills(s) 0, Pharmacy: [facility], 170, cm, 04/24/24 8:57:00 EST, Height/Length Dosing, 108.6, kg, 04/24/24 8:57:00 EST, Weight Dosing C-Reactive Protein Calprotectin, Fecal Celiac Disease Comprehensive Colonoscopy (Hospital Procedure) EGD Endoscopy (Hospital Procedure) IgA, Quant. Pancreatic Elastase, Fecal Pancreatic Elastase, Fecal Testosterone Level Total US Abdomen, Limited 2. Bloating (R14.0: Abdominal distension (gaseous)) Ordered: cholestyramine, = 1 packet(s), Oral, BID, # 60 EA, Refills(s) 0, Pharmacy: [facility], 170, cm, 04/24/24 8:57:00 EST, Height/Length Dosing, 108.6, kg, 04/24/24 8:57:00 EST, Weight Dosing C-Reactive Protein Calprotectin, Fecal Celiac Disease Comprehensive Colonoscopy (Hospital Procedure) EGD Endoscopy (Hospital Procedure) IgA, Quant. Pancreatic Elastase, Fecal Pancreatic Elastase, Fecal Testosterone Level Total US Abdomen, Limited 3. Black stool (K92.1: Melena) Ordered: cholestyramine, = 1 packet(s), Oral, BID, # 60 EA, Refills(s) 0, Pharmacy: [facility], 170, cm, 04/24/24 8:57:00 EST, Height/Length [...] BID, # 60 EA, Refills(s) 0, Pharmacy: [facility], 170, cm, 04/24/24 8:57:00 EST, Height/Length Dosing, 108.6, kg, 04/24/24 8:57:00 EST, Weight Dosing C-Reactive Protein Calprotectin, Fecal Celiac Disease Comprehensive Colonoscopy (Hospital Procedure) EGD Endoscopy (Hospital Procedure) IgA, Quant. Pancreatic Elastase, Fecal Pancreatic Elastase, Fecal Testosterone Level Total US Abdomen, Limited 5. Decreased sexual desire (F52.0: Hypoactive sexual desire disorder) Or[facility]: [facility] Internal Ambulatory Referral Pancreatic [...] Electronical ly Signed By: Jackelyn ROMERO, Alejandra Kelly\.br\Date and Time Signed: 04/24/24 09:30 EST ALLERGIES DATE TYPE / CODE NAME / CODE REACTION SEVERITY SOURCE [id number](SNOME D CT) No Known Allergies [facility] [id number](SNOME D CT) No Known Medication Allergies [facility] ENCOUNTERS ADMIT/DISCHARGE ACCOUNT NUMBER ADMITTING ENCOUNTER CLASS LOCATION SOURCE 10/15/2024/10/16/19 [id number] Ambulatory [place] lding:MELISSA [facility] 09/14/2024/09/15/19 25 [id number] Ambulatory [facility] [place] lding:MELISSA [place] [facility] 09/10/2024/09/11/19 25 [id number] [facility] lding:MELISSA Lopez m: Exam 4 [facility] 08/16/2024/08/17/19 25 [id number] Ambulatory [facility] sofya DHBuilding[facility] DHRoom: CD:[id number] 63 [facility] 07/17/2024/07/18/19 25 [id number] Ambulatory [place] [facility] DHBuilding: [place] DHRoom: CD:[id number] 91 [facility] 05/25/2024/05/25/19 [id number] Ambulatory Building:NO [facility]IPT [facility] EPIC 05/22/2024/05/22/19 25 [id number] Ambulatory Building:NO [facility] EPIC 05/21/2024/05/21/19 25 [id number] Ambulatory [place] DHBuilding: [place] DHRoom: CD:[id number] 61 [facility] 05/18/2024/05/18/19 [id number] Ambulatory Building:NO [facility] EPIC 05/17/2024/05/17/19 [id number] Ambulatory Building: R NEURO [facility] EPIC 05/15/2024/05/15/19 [id number] Ambulatory Building:NO [facility] EPIC 05/11/2024/05/11/19 [id number] Alejandra Hayden Ambulatory FTMCBuildin g:FT END [facility] 05/07/2024/05/07/19 [id number] Ambulatory [place] m: Exam 2 [facility] 04/27/2024 [id number] Ambulatory [place] [facility] 04/26/2024/04/26/19 [id number] Alejandra Hayden Ambulatory FTMCBuildin g:FT US [facility] 04/25/2024/04/25/19 [id number] Alejandra Hayden Ambulatory FTMCBuildin g:FT LAB [facility] 04/24/2024 [id number] Alejandra Hayden Ambulatory FTMCBuildin g:FT LAB [facility] 04/24/2024/04/24/19 [id number] Alejandra Hayden Ambulatory FTMCBuildin g:FT LAB [facility] 04/24/2024/04/24/19 [id number] Ambulatory iPetro cowart DHBuilding: Pietro cowart DHRoom: CD:[id number] 61 [facility] 04/18/2024 [id number] Ambulatory Pietro s DHBuilding: Solomonu s [facility] PAYERS ENCOUNTER GUARANTOR PAYER SUBSCRIBER SOURCE 10/15/2024 TATE JOHNSON: [facility] 224Tel: ~~(4 1 (HP) Primary Insurance:MolinaPolicy Number: [id number] Date:2227-66-76WF[address] [address]RY: [phone] TATE Hoa DE JESUSROXANNARJ [facility] 09/14/2024 TATE XIONGB: [facility] 224Tel: ~~(4 1 (HP) Primary Insurance:MolinaPolicy Number: [id number] Date:4372-52-81GO[address] [address]YS: [phone] TATE Hoa DE JESUSROXANNAJR [facility] 09/10/2024 TATE XIONGB: [facility] 224Tel: ~~(4 1 (HP) Primary Insurance:MolinaPolicy Number: [id number] Date:7546-36-67ND[address] [address]ET: [phone] TATE Hoa NEALROXANNARJ [facility] 08/16/2024 TATE XIONGB: [facility] 224Tel: ~~(4 1 (HP) Primary Insurance:MolinaPolicy Number: [id number] Date:3504-45-27LG[address] [address]IM: [phone] TATE GOOD [facility] 07/17/2024 TATE XIONGB: [id number] [facility] 224Tel: ~~(4 1 (HP) Primary Insurance:MolinaPolicy Number: [id number] Date:8628-75-83LR[address] [address]VL: [phone] [facility] 05/25/[facility]24 TATE ENCARNACIONDOB: [address], [place] [address]Ttj: (HP) Primary Insurance:CADE MEDICAIDPolicy Number: [id number] Date:2024-04-11 TATEANNAMARIA ENCARNACIONDOB: [id number] [address] [address] [facility] EPIC 05/22/2024 TATE SHASHANKDOB: [address], [place] [address]Omd: (HP) Primary Insurance:CADE MEDICAIDPolicy Number: [id number] Date:2024-04-11 TATEANNAMARIA ENCARNACIONDOB: [id number] [address] [address] [facility] EPIC 05/21/2024 TATEANNAMARIA ENCARNACIONDOB: [facility] 224Tel: ~~(4 1 (HP) Primary Insurance:MolinaPolicy Number: [id number] Date:8607-96-33CJ [address] [address]EM: [phone] [facility] 05/18/2024 TATE ENCARNACIONDOB: [address], [place] [address]Crg: (HP) Primary Insurance:CADE MEDICAIDPolicy Number: [id number] Date:2024-04-11 TATE SHASHANKDOB: [id number] [address] [address] [facility] EPIC 05/17/2024 TATE ENCARNACIONDOB: [address], [place] [address]Nbn: (HP) Primary Insurance:CADE MEDICAIDPolicy Number: [id number] Date:2024-04-11 TATE XIONGB: [id number] [address], [place] [address] [facility] EPIC 05/15/2024 TATE ENCARNACIONDOB: [address], [place] [address]Hrm: (HP) Primary Insurance:CADE MEDICAIDPolicy Number: [id number] Date:2024-04-11 TATE XIONGB: [id number] [address] [address] [facility] EPIC 05/11/2024 TATE ENCARNACIONDOB: [facility] 224Tel: ~~(4 1 (HP) Primary Insurance:MolinaPolicy Number: [id number] Date:8890-18-30DO [address] [address]HQ: [phone] TATEANNAMARIA ENCARNACIONJ.W. [facility] 05/07/2024 TATE ENCARNACIONDOB: [facility] 224Tel: ~~(4 1 (HP) Primary Insurance:MolinaPolicy Number: [id number] Date:3028-84-38GQ[address] [address]ZW: [phone] TATEANNAMARIA ENCARNACIONJ.W. [facility] 04/26/2024 TATE ENCARNACIONDOB: [facility] 224Tel: ~~(4 1 (HP) Primary Insurance:MolinaPolicy Number: [id number] Date:5014-48-10GL[address] [address]AM: [phone] TATEANNAMARIA ENCARNACIONJ.W. [facility] 04/25/2024 TATE ENCARNACIONDOB: [facility] 224Tel: ~~(4 1 (HP) Primary Insurance:MolinaPolicy Number: [id number] Date:7169-42-77PO [address] [address]NY: [phone] [facility] SHASHANKJ.W. [facility] 04/24/2024 TATE JOHNSON: [facility] 224Tel: ~~(4 1 (HP) Primary Insurance:MolinaPolicy Number: [id number] Date:5488-41-29QA [address] [address]HH: [phone] TATEANNAMARIA ENCARNACIONJ.W. [facility] 04/24/2024 TATE JOHNSON: [facility] 224Tel: ~~(4 1 (HP) Primary Insurance:MolinaPolicy Number: [id number] Date:1550-78-23QF [address] [address]WE: [phone] [facility]
--- OUTSIDE RECORDS SUMMARY | 2024-10-15 19:57 | XMS_ITS | Patient Health Record ---
Author Organization [facility] Address [address] [place] [address] Care Team Providers Care Bank Officer Name Role Phone John Cartagena Unavailable [phone] Kira Heredia Unavailable Unavailable xxEduardo Zita Unavailable Allergies No Known Allergies Results Component [...] Lab: Notes/Report: MRI : Hand W/O Contrast [facility] t - [id number] Reviewed date:08/29/2024 09:42:38 AM Interpretation: Performing Lab: Notes/Report: Reason For Referral Reason APPROVED.........PLE ASE OBTAIN AUTHORIZATION FOR MRI RIGHT HAND Diagnosis 1 Swelling of right bonds nd (M79.89) Referral Organization [facility] Referring Provider First Name John Referring Provider Last Name Cartagena Referring Provider Speciality Orthopedic Surgery Referred Organization [facility] molly Referred Address [place], [place], Procedure 1 MRI Upper Ext NON-Cindy int w/o Dye (71760) General Notes Marie Morris 025 02:49:42 PM >NEED DICTATIONAlexandra Amy 05/28/2024 02:52:50 PM >PENDING SANDOR SCOTT # [id number] CLINICAL ATTACHED.............NEED DICTATION TO UPLOADSukhjinder Kimberly 05/28/2024 03:23:43 PM >Printed for [place] Ahumada Monica 05/29/2024 12:14:20 PM >DONEAlexandra Amy 05/29/2024 12:32:29 PM >CLINICAL UPLOADED, Marie Morris 05/30/2024 07:51:05 AM >STILL PENDINGAlexandra Amy 05/31/2024 07:20:27 AM >APPROVED PER SANDOR AYON #[id number] VALID 05/28/2024-08/26/2024 COPY IN CHART MA NOTIFIED [...] Referring Provider Speciality Orthopedic Surgery Referred Organization [facility] Referred Address [address] [place] [address],[place], [place],[facility], General Notes Vonda Barahona 2024 09:14:14 [...] Problem Status W/U Status Risk Notes Problem 958129763 Right hand paresthesia (R20.2) Active confirmed Problem [id number] Swelling of right hand (M79.89) Active confirmed Problem Fall, initial encounter (W19.XXXA) Active confirmed Vital Signs Height 5'6 in 09/10/2024 Weight 225 lbs 09/10/2024 BMI 36.31 09/10/2024 Encounters Encounter Location Date Provider Diagnosis [facility] [address] [place] [address] 09/10/2024 John Cartagena Right hand paresthesia R20.2 [facility] [address] [place] [address] 05/14/2024 John Cartagena Other bursitis of knee, left knee M70.52 ; Stiffness of right hand joint M25.641 and Swelling of right hand M79.89 [facility] [address] [place] [address] 05/28/2024 Zita Carter Swelling of right hand M79.89 and Fall, initial encounter W19.XXXA [facility] [place] [address] [place] [address] 05/25/2024 John Cartagena Assessments Encounter Date Diagnosis [...] Insured Coverage Start Date Coverage End Date [employer] [facility] [address] [place] [phone] [id number] SHASHANK TATE Self - patient is the insured Medical (General) History Medical History History ICD Code Hypothyroidism GI Problems: Depression Sleep apnea CPAP Machine: Yes
--- OUTSIDE RECORDS SUMMARY | 2024-10-15 19:58 | XMS_ITS | Clinical Summary ---
Author Organization [facility] Address [address] [place] [address] Care Team Providers Care Rf Test Engineer Name Role Phone Kira Heredia MD Unavailable [phone] Unallocated, [facility] Provider Primary Care Provi radha Varun Castellansotitonorman DO Unavailable [phone] Allergies No known active allergies Medications cholecalciferol [...] Department Care Team Description 08/31/2024 Orders Only [facility] [address] [place] [place] [address] Kira Heredia MD from Last 3 Months [...] 1970 FOBT 1970 Sigmoidoscopy 1970 Influenza Vaccine (#1) 2024 Procedures Procedure Name Priority Date/Time Associated Diagnosis Comments MRI HAND RIGHT W WO CONTRAST Routine 08/31/2024 1:17 PM EDT from Last 3 Months Results * MRI HAND RIGHT W WO CONTRAST (08/31/2024 1:17 PM EDT) Anatomical Region Laterality Modality Radiographic Amy ging Kira Heredia MD IMG XR PROCEDURES Final Result from Last [address] [place] [address] [place] [address] [employer] Care Teams Rf Test Engineer Relationship Specialty Start Date End Date Unallocated, [place] Gianluca, [address] [place] [address] PCP - General Family Medicine 04/19/24 Kira Heredia MD [address] [place] [address] Referring Physician Family Medicine 04/19/24 Loco Castellanos DO [address] [address] Referring Physician Neurology 05/17/24
--- OUTSIDE RECORDS SUMMARY | 2024-10-15 19:58 | XMS_ITS | Patient Health Record ---
Author Organization [facility] [place] Address [address] [place] [address] Care Team Providers Care Corrections Lieutenant Name Role Phone Kira Garrison Primary Care Provider [phone] Betsy Reid [place]all[place] [phone] Allergies No Known Allergies Results Component Value Reference Range Notes IRON Reviewed date:04/17/2024 12:59:36 PM Interpretation: Performing Lab: Notes/Report: [facility] , Iron 129.0 65.0-175.0 ug/dL Performing Lab: see note ML - [facility] LB XR HAND RT MIN 3V Reviewed date:04/17/2024 04:06:04 PM Interpretation: Performing Lab: Notes/Report: Source Facility: [place] [address] XRay Report Signed Patient: KODY ENCARNACION MR#: [id number] : 1970 Acct:[id number] Age/Sex: 53 / M ADM Date: 04/17/24 Loc: LAB Attending Dr: KIRA GARRISON Ordering Physician: KIRA GARRISON Date of Service: 04/17/24 Procedure(s): XR hand RT min 3V Accession Number(s): [id number] cc: KIRA GARRISON [place] [address] Patient Name: KODY ENCARNACION MRN: [id number] date: 1970 Sex: M Assigned Patient Location: LAB Current Patient Location: LAB Accession/Order Number: [id number] Exam Date: 04/17/2024 10:25 Report Date: 04/17/2024 [...] Signed By: 04/17/24 1535 DD/ 1532 TD/TT: Textile Engraver: [place] [id number] XRay Report Signed Patient: ANNETTE ENCARNACION MR#: [id number] : 1970 Acct:[id number] Age/Sex: 53 / M ADM Date: 04/17/24 Loc: LAB Attending Dr: KIRA GARRISON Ordering Physician: KIRA GARRISON Date of Service: 04/17/24 Procedure(s): XR miller d RT min 3V Accession Number(s): [id number] cc: KIRA GARRISON [place] [id number] Patient Name: KODY ENCARNACION MRN: [id number] date: 1970 Sex: M Assigned Patient Location: LAB Current Patient Loca tion: LAB Accession/Order Numb er: [id number] Exam Date: 04/17/2024 10:25 Report Date: 04/17/2024 [...] Signed By: 04/17/24 1535 DD/ 153 TD/TT: Textile Engraver: XR KNEE LT 3V Reviewed date:04/17/2024 04:05:58 PM Interpretation: Performing Lab: Notes/Report: Source Facility: [place] [address] XRay Report Signed Patient: KODY ENCARNACION MR#: [id number] : 1970 Acct:[id number] Age/Sex: 53 / M ADM Date: 04/17/24 Loc: LAB Attending Dr: KIRA GARRISON Ordering Physician: KIRA GARRISON Date of Service: 04/17/24 Procedure(s): XR knee LT 3V Accession Number(s): [id number] cc: KIRA GARRISON [place] [address] Patient Name: KODY ENCARNACION MRN: [id number] date: 1970 Sex: M Assigned Patient Location: LAB Current Patient Location: LAB Accession/Order Number: [id number] Exam Date: 04/17/2024 10:25 Report Date: 04/17/2024 [...] Signed By: 04/17/24 1535 DD/ 153 TD/TT: Textile Engraver: [place] [address] XRay Report Signed Patient: ANNETTE ENCARNACION MR#: [id number] : 1970 Acct:[id number] Age/Sex: 53 / M ADM Date: 04/17/24 Loc: LAB Attending Dr: KIRA GARRISON Ordering Physician: KIRA GARRISON Date of Service: 04/17/24 Procedure(s): XR kne e LT 3V Accession Number(s): [id number] cc: KIRA GARRISON [place] [address] Patient Name: KODY ENCARNACION MRN: [id number] date: 1970 Sex: M Assigned Patient Location: LAB Current Patient Loca tion: LAB Accession/Order Numb er: [id number] Exam Date: 04/17/2024 10:25 Report Date: 04/17/2024 [...] Signed By: 04/17/24 153 DD/ 153 TD/TT: Textile Engraver: CBC AUTO DIFF Reviewed date:04/17/2024 12:59:36 PM Interpretation: Performing Lab: Notes/Report: [facility] , White Blood Count 5.8 4.0-11.0 [...] Performing Lab: see note ML - [facility] LB DIRECT LDL Reviewed date:04/17/2024 12:59:36 PM Interpretation: Performing Lab: Notes/Report: [facility] , LDL Cholesterol Direct 49 <100 mg/dl OPTIMAL 100-129 mg/dl NEAR OR ABOVE OPTIMAL 130-159 mg/dl BORDERLINE HIGH 160-189 mg/dl HIGH >190 mg/dl VERY HIGH Performing Lab: see note ML - [facility] LB FREE T3 Reviewed date:04/17/2024 12:59:36 PM Interpretation: Performing Lab: Notes/Report: [facility] , Free T3 2.15 2.18-3.98 pg/mL Performing Lab: see note ML - [facility] LB GLYCOHEMOGLOBIN A1C Reviewed date:04/17/2024 12:59:36 PM Interpretation: Performing Lab: Notes/Report: [facility] , Glycohemoglobin A1C 6.1 4.5-6.2 % ADA RECOMMENDED LIMIT 4.0 - 6.0 ADA THERAPEUTIC TARGET < 7.0 ACTION SUGGESTED > 7.0 Estimated Average Glucose 128 Performing Lab: see note ML - [facility] LB LIPID PROFILE Reviewed date:04/17/2024 12:59:36 PM Interpretation: Performing Lab: Notes/Report: [facility] , Triglycerides 3317 <=150 mg/dL Cholesterol 301 <=200 mg/dL HDL Cholesterol 27 40-60 mg/dL > or =60 mg/dl - LOW CARDIOVASCULAR RISK <40 mg/dl - HIGH CARDIOVASCULAR RISK VLDL CHOLESTEROL 663.4 Chol HDL Ratio 11.1 3.3 - 4.4 LOW RISK 4.4 - 7.1 AVERAGE RISK 7.1 - 11.0 MODERATE RISK >11.0 HIGH RISK Performing Lab: see note ML - [facility] LB PSA SCREENING Reviewed date:04/17/2024 12:59:36 PM Interpretation: Performing Lab: Notes/Report: [facility] , Prostate Specific Antigen Scrn 0.22 <=4.00 ng/mL Performing Lab: see note ML - [facility] LB T4 Reviewed date:04/17/2024 12:59:36 PM Interpretation: Performing Lab: Notes/Report: [facility] , T4 Thyroxine 4.30 4.50-12.10 ug/dL Performing Lab: see note ML - [facility] LB TSH Reviewed date:04/17/2024 12:59:36 PM Interpretation: Performing Lab: Notes/Report: [facility] , Thyroid Stimulating Hormone 27.573 0.358-3.740 uIU/mL Performing Lab: see note - [facility] VITAMIN D 25 [place] Reviewed date:04/17/2024 12:59:36 PM Interpretation: Performing Lab: Notes/Report: [facility] , Vitamin D 21.6 <20 ng/mL Vit D deficient 20-<30 ng/mL Vit D insufficient 30-100 ng/mL Vit D sufficient >100 ng/mL Potential Toxicity Performing Lab: see note ML - [facility] Vitamin B12 Reviewed date:04/18/2024 09:12:24 AM Interpretation: Performing Lab: Notes/Report: [facility] , Vitamin B12 495 699-5586 pg/mL Performed at: [facility] [address] [id number] Motor Scooter Mechanic: Atul Reid PhD, Phone: [phone] Performing Lab: see note - [facility] LB LAB TESTING Reviewed date:04/30/2024 03:58:21 PM Interpretation: Performing Lab: Notes/Report: [id number] METABOLIC PANEL 14, COMPREHENSIVE [facility] , Miscellaneous Test SEE SCANN ED REPORT Performing Lab: see note - [facility] LB Occult Blood* Reviewed date:04/19/2024 12:06:25 PM Interpretation: Performing Lab: Notes/Report: [facility] , Occult Blood Negative Performing Lab: see note ML - [facility] LB MR head/brain wo con Reviewed date:05/11/2024 12:35:06 PM Interpretation: Performing Lab: Notes/Report: Source Facility: [facility] [place] [address] [place] [address] Magnetic Resonance Report Signed Patient: KODY ENCARNACION MR#: [id number] : 1970 Acct:[id number] Age/Sex: 53 / M ADM Date: 05/08/24 Loc: MRI Attending Dr: KIRA GARRISON Ordering Physician: KIRA GARRISON Date of Service: 05/08/24 Procedure(s): MR head/brain wo con Accession Number(s): [id number] cc: KIRA GARRISON [place] [id number] Patient Name: KODY ENCARNACION MRN: [id number] date: 1970 Sex: M Assigned Patient Location: MRI Current Patient Location: MRI Accession/Order Number: [id number] Exam Date: 05/08/2024 09:00 Report Date: 05/08/2024 [...] Signed By: 05/08/24 1302 DD/ 1259 TD/TT: Textile Engraver: [place] [address] Magnetic Resonance Report Signed Patient: ANNETTE ENCARNACION MR#: [id number] : 1970 Acct:[id number] Age/Sex: 53 / M ADM Date: 05/08/24 Loc: MRI Attending Dr: KIRA GARRISON Ordering Physician: KIRA GARRISON Date of Service: 05/08/24 Procedure(s): MR head/brain wo con Accession Number(s): [id number] cc: KIRA GARRISON [place] [id number] Patient Name: KODY ENCARNACION MRN: [id number] date: 1970 Sex: M Assigned Patient Location: MRI Current Patient Loca tion: MRI Accession/Order Numb er: [id number] Exam Date: 05/08/2024 09:00 Report Date: 05/08/2024 [...] Signed By: 05/08/24 1302 DD/ 1259 TD/TT: Textile Engraver: MARY by IFA Reviewed date:05/22/2024 08:17:18 AM Interpretation: Performing Lab: Notes/Report: [facility] , Antinuclear Antibodies, IFA Negative . Negative <1:80 Borderline 1:80 Positive >1:80 ICAP nomenclature: AC-0 For more information about Hep-2 cell patterns use ANApatterns.org, the official website for the International Consensus on Antinuclear Antibody (MARY) Patterns (ICAP). Performed at: - [facility] [address] [id number] Motor Scooter Mechanic: Atul Reid PhD, Phone: [phone] Performing Lab: see note - [facility] LB CBC AUTO DIFF Reviewed date:05/22/2024 08:17:45 AM Interpretation: Performing Lab: Notes/Report: [facility] , White Blood Count 5.8 4.0-11.0 [...] Performing Lab: see note ML - [facility] LB CRP Reviewed date:05/22/2024 08:17:45 AM Interpretation: Performing Lab: Notes/Report: [facility] , C Reactive Protein <0.50 <=0.50 mg/dL Performing Lab: see note ML - [facility] LB PROF CHEM 8 (BAS METB) Reviewed date:05/22/2024 08:17:45 AM Interpretation: Performing Lab: Notes/Report: [facility] , Sodium 138 136-145 mmol/L Potassium 4.3 [...] 8.5-10.1 mg/dL Performing Lab: see note - [facility] RHEUMATOID FACTOR Reviewed date:05/22/2024 08:17:45 AM Interpretation: Performing Lab: Notes/Report: [facility] , Rheumatoid Factor (RF) 13.8 <14.0 IU/mL Performed at: [address] [id number] Motor Scooter Mechanic: Atul Reid PhD, Phone: [phone] Performing Lab: see note [facility] LB Erythrocyte Sedimentation Ra te Reviewed date:05/22/2024 08:17:45 AM Interpretation: Performing Lab: Notes/Report: [facility] , Erythrocyte Sedimentation Rate 16 <=20 mm/hr Performing Lab: see note - [facility] HLA B 27 Disease Association Reviewed date:05/22/2024 08:17:45 AM Interpretation: Performing Lab: Notes/Report: [facility] , HLA B 27 Disease Association Negative . HLA-B*27 Negative B27 allele interpretation for all loci based on IMGT/HLA database version 3.51.0 This test was developed and its performance characteristics determined by [facility]. It has not been cleared or approved by the Food and Drug Administration. The FDA has determined that such clearance or approval is not necessary. [facility] CLIA ID Number [id number] This test was performed using Polymerase Chain Reaction (PCR) and Sequence Specific Oligonucleotide Probes (SSOP) technique. Sequence Based Typing (SBT) may be used as a supplemental method when necessary. If you have questions, please call [facility] customer service at or email at [email or web address]. Performed at: [address] [place] [id number] Motor Scooter Mechanic: Elizabeth Quevedo PhD, Phone: [phone] Performing Lab: see note LC - [facility] LB CBC AUTO DIFF Reviewed date:06/06/2024 09:35:27 AM Interpretation: Performing Lab: Notes/Report: [facility] , White Blood Count 7.2 4.0-11.0 10 [...] Performing Lab: see note ML - [facility] LB DIRECT LDL Reviewed date:06/06/2024 09:35:27 AM Interpretation: Performing Lab: Notes/Report: [facility] , LDL Cholesterol Direct 49 <100 mg/dl OPTIMAL 100-129 mg/dl NEAR OR ABOVE OPTIMAL 130-159 mg/dl BORDERLINE HIGH 160-189 mg/dl HIGH >190 mg/dl VERY HIGH Performing Lab: see note ML - [facility] LB CBC AUTO DIFF Reviewed date:08/13/2024 11:42:12 AM Interpretation: Performing Lab: Notes/Report: [facility] , White Blood Count 4.7 4.0-11.0 10 [...] Performing Lab: see note ML - [facility] LB DIRECT LDL Reviewed date:08/13/2024 11:42:12 AM Interpretation: Performing Lab: Notes/Report: [facility] , LDL Cholesterol Direct 50 <100 mg/dl OPTIMAL 100-129 mg/dl NEAR OR ABOVE OPTIMAL 130-159 mg/dl BORDERLINE HIGH 160-189 mg/dl HIGH >190 mg/dl VERY HIGH Performing Lab: see note - [facility] LB FREE T3 Reviewed date:08/13/2024 11:42:12 AM Interpretation: Performing Lab: Notes/Report: [facility] , Free T3 2.47 2.18-3.98 pg/mL Performing Lab: see note ML - [facility] LB PSA SCREENING Reviewed date:08/13/2024 11:42:12 AM Interpretation: Performing Lab: Notes/Report: [facility] , Prostate Specific Antigen Scrn 0.44 <=4.00 ng/mL Performing Lab: see note ML - [facility] LB T4 Reviewed date:08/13/2024 11:42:12 AM Interpretation: Performing Lab: Notes/Report: [facility] , T4 Thyroxine 3.10 4.50-12.10 ug/dL Performing Lab: see note ML - [facility] LB TSH Reviewed date:08/13/2024 11:42:12 AM Interpretation: Performing Lab: Notes/Report: [facility] , Thyroid Stimulating Hormone 24.729 0.358-3.740 uIU/mL Performing Lab: see note ML - [facility] LB MR hand RT wo con Reviewed date:08/31/2024 11:57:15 AM Interpretation: Performing Lab: Notes/Report: Source Facility: [place] [address] Magnetic Resonance Report Signed Patient: KODY ENCARNACION MR#: [id number] : 1970 Acct:[id number] Age/Sex: 53 / M ADM Date: 08/31/24 Loc: MRI Attending Dr: KIRA GARRISON Ordering Physician: KIRA GARRISON Date of Service: 08/31/24 Procedure(s): MR ward RT wo con Accession Number(s): [id number] cc: KIRA GARRISON [place] [id number] Patient Name: KODY ENCARNACION MRN: [id number] date: 1970 Sex: M Assigned Patient Location: MRI Current Patient Location: MRI Accession/Order Number: [id number] Exam Date: 08/31/2024 11:25 Report Date: 08/31/2024 [...] Xie M.D. 08/31/2024 11:33 AM Dictation Location: [place] [address] Electronically authenticated by: [id number] Y Date: 08/31/2024 11:33 Dictated By: Ken Xie M.D. Signed By: 08/31/24 1135 DD/ 1133 TD/TT: Textile Engraver: [place] [address] Magnetic Resonance Report Signed Patient: ANNETTE ENCARNACION MR#: [id number] : 1970 Acct:[id number] Age/Sex: 53 / M ADM Date: 08/31/24 Loc: MRI Attending Dr: KIRA GARRISON Ordering Physician: KIRA GARRISON Date of Service: 08/31/24 Procedure(s): MR angela meraz RT wo con Accession Number(s): [id number] cc: KIRA GARRISON [address] [address] Patient Name: KODY ENCARNACION MRN: [id number] date: 1970 Sex: M Assigned Patient Location: MRI Current Patient Loca tion: MRI Accession/Order Catrachita er: [id number] Exam Date: 08/31/2024 11:25 Report Date: 08/31/2024 [...] Xie M.D. 08/31/2024 11:33 AM Dictation Location: [place] [address] Electronically authenticated by: [id number] Y Date: 08/31/2024 11:33 Dictated By: Ken Xie M.D. Signed By: 08/31/24 1135 DD/ 1133 TD/TT: Textile Engraver: NEISHA T3 Reviewed date:09/27/2024 04:10:37 PM Interpretation: Performing Lab: Notes/Report: [facility] , Free T3 2.13 2.18-3.98 pg/mL Performing Lab: see note ML - [facility] LB T4 Reviewed date:09/27/2024 04:10:37 PM Interpretation: Performing Lab: Notes/Report: [facility] , T4 Thyroxine 3.30 4.50-12.10 ug/dL Performing Lab: see note ML - [facility] LB TSH Reviewed date:09/27/2024 04:10:29 PM Interpretation: Performing Lab: Notes/Report: [facility] , Thyroid Stimulating Hormone 20.514 0.358-3.740 uIU/mL Performing Lab: see note ML - [facility] LB Testosterone Reviewed date:08/13/2024 11:42:12 AM Interpretation: Performing Lab: Notes/Report: [facility] , Testosterone 168 264-916 ng/dL Adult male reference interval is based on a population of healthy nonobese males (BMI <30) between 19 and 39 years old. Mildred et.al. JCEM 2017,102;3210-7291. PMID: [id number]. Performed at: [facility] [id number] Motor Scooter Mechanic: Atul Reid PhD, Phone: [phone] Performing Lab: see note - [facility] LB LIPID PROFILE Reviewed date:08/13/2024 11:42:12 AM Interpretation: Performing Lab: Notes/Report: [facility] , Triglycerides 1318 <=150 mg/dL Cholesterol 215 <=200 mg/dL HDL Cholesterol 37 40-60 mg/dL > or =60 mg/dl - LOW CARDIOVASCULAR RISK <40 mg/dl - HIGH CARDIOVASCULAR RISK VLDL CHOLESTEROL 263.6 Chol HDL Ratio 5.8 3.3 - 4.4 LOW RISK 4.4 - 7.1 AVERAGE RISK 7.1 - 11.0 MODERATE RISK >11.0 HIGH RISK Performing Lab: see note ML - [facility] LB TSH Reviewed date:06/06/2024 09:35:27 AM Interpretation: Performing Lab: Notes/Report: [facility] , Thyroid Stimulating Hormone 46.230 0.358-3.740 uIU/mL Performing Lab: see note ML - [facility] LB T4 Reviewed date:06/06/2024 09:35:27 AM Interpretation: Performing Lab: Notes/Report: [facility] , T4 Thyroxine 0.90 4.50-12.10 ug/dL Performing Lab: see note ML - [facility] LIPID PROFILE Reviewed date:06/06/2024 09:35:27 AM Interpretation: Performing Lab: Notes/Report: [facility] , Triglycerides 1473 <=150 mg/dL Cholesterol 245 <=200 mg/dL HDL Cholesterol 36 40-60 mg/dL > or =60 mg/dl - LOW CARDIOVASCULAR RISK <40 mg/dl - HIGH CARDIOVASCULAR RISK VLDL CHOLESTEROL 294.6 Chol HDL Ratio 6.8 3.3 - 4.4 LOW RISK 4.4 - 7.1 AVERAGE RISK 7.1 - 11.0 MODERATE RISK >11.0 HIGH RISK Performing Lab: see note - [facility] FREE T3 Reviewed date:06/06/2024 09:35:27 AM Interpretation: Performing Lab: Notes/Report: [facility] , Free T3 1.80 2.18-3.98 pg/mL Performing Lab: see note ML - [facility] LAB TESTING Reviewed date:04/18/2024 09:12:23 AM Interpretation: Performing Lab: Notes/Report: [id number] URIC ACID [facility] , Miscellaneous Test COMMENT . Test Ordered: [id number] Uric Acid Uric Acid 8.2 mg/dL Reference Range: 3.8-8.4 Therapeutic target for gout patients: <6.0 Performed at: [facility] [address] [id number] Motor Scooter Mechanic: Atul Reid PhD, Phone: [phone] Performing Lab: see note - [facility] LB INSULIN Reviewed date:04/18/2024 09:12:23 AM Interpretation: Performing Lab: Notes/Report: [facility] , Insulin 15.6 2.6-24.9 uIU/mL Performed at: [facility] [address] [id number] Motor Scooter Mechanic: Atul Reid PhD, Phone: [phone] Performing Lab: see note - [facility] LB PROLACTIN Reviewed date:09/12/2024 10:18:42 AM Interpretation: Performing Lab: Notes/Report: [facility] , Prolactin 18.3 3.6-25.2 ng/mL Performed at: [facility] [address] [id number] Motor Scooter Mechanic: Atul Reid PhD, Phone: [phone] Performing Lab: see note LC - [facility] LB NM veronika perf SPECT rest str Reviewed date:09/06/2024 12:53:58 PM Interpretation: Performing Lab: Notes/Report: Source Facility: [place] [address] [place] [address] Nuclear Medicine Report Signed Patient: KODY ENCARNACION MR#: [id number] : 1970 Acct:[id number] Age/Sex: 54 / M ADM Date: 09/04/24 Loc: [place] Attending Dr: KIRA GARRISON Ordering Physician: KIRA GARRISON Date of Service: 09/04/24 Procedure(s): NM veronika perf SPECT rest str Accession Number(s): [id number] cc: KIRA GARRISON Patient Name: KODY ENCARNACION MR#: [id number] : 1970 Exam Date: 09/04/2024 Ordering Doctor: KIRA GARRISON [facility] RAD[facility] REPORT PROCEDURE: NM VERONIKA PERF [...] the study was pending per attending physician [facility]. For more details, please see separate [...] M.D. Signed By: 09/05/241652 DD/ 51 TD/TT: Textile Engraver: [place] [address] Nuclear Medicine Report Signed Patient: ANNETTE ENCARNACION MR#: [id number] : 1970 Acct:[id number] Age/Sex: 54 / M ADM Date: 09/04/24 Loc: [place] Attending Dr: KIRA GARRISON Ordering Physician: KIRA GARRISON Date of Service: 09/04/24 Procedure(s): NM veronika perf SPECT rest str Accession Number(s): [id number] cc: KIRA GARRISON Patient Name: KODY ENCARNACION MR#: [id number] : 1970 Exam Date: 09/04/2024 Ordering Doctor: SUREKHA GARRISON [facility] RADI[facility] REPORT PROCEDURE: NM VERONIKA PE [...] study was pendin g per attending physician [facility]. For more details, please see separate [...] of transient ischemic dilatation Dictated by: Mary oJ Araiza M.D. on 09/05/2024 at 16:50 Approved by: Mary Jo Araiza M.D. on 09/05/2024 at 16:52 Dictated By: Mary Jo Araiza M.D. Signed By: 09/05/241652 DD/ 51 TD/TT: Textile Engraver: Reason For Referral Reason headache for 6 month s Diagnosis 1 Migraine (G43.909) Referral Organization [facility] Referring Provider First Name Kira Referring Provider Last Name Yan Referring Provider [facility] icine Referred Provider Kenzie Null Referred Provider Specialty Neurology Referral Priority Routine Reason IBS Diagnosis 1 Irritable bowel (K58 .9) Referral Organization [facility] Referring Provider First Name Kira Referring Provider Last Name Yan Referring Provider [facility] icine Referred Provider Cristobal Moncada Referred Provider Specialty Gastroentero logy Referral Priority Routine Diagnosis 1 Irritable bowel (K58 .9) Referral Organization [facility] Referring Provider First Name Kira Referring Provider Last Name Yan Referring Provider [facility] icine Referred Provider Alejandra Hayden Referred Provider Specialty Gastroentero logy Referral Priority Routine Diagnosis 1 Left knee pain (M25. 562) Referral Organization [facility] Referring Provider First Name Kira Referring Provider Last Name Yan Referring Provider [facility] icine Referred Provider John Cartagena Referred Provider Specialty Orthopedic S urgery Referral Priority Routine Diagnosis 1 Polyarticular osteoa rthritis (M15.9) Referral Organization [facility] Referring Provider First Name Kira Referring Provider Last Name Yan Referring Provider [facility] icine Referred Provider Abdi Duke Referred Provider Specialty Rheumatology Referral Priority Routine Diagnosis 1 Hand pain (M79.643) Referral Organization [facility] Referring Provider First Name Kira Referring Provider Last Name Yan Referring Provider [facility] icine Referred Provider Jose Pfeiffer ( James) Referred Provider Specialty Orthopedic S urgery General Notes Taylor Bennett 2024 08:40:44 AM >Second Opinion Referral Priority Routine Reason MALCOLM, fatigue Diagnosis 1 Sleep apnea (G47.30) Referral Organization [facility] Referring Provider First Name Kira Referring Provider Last Name Yan Referring Provider Speciality [facility] tam Referred Provider Kenzie Null Referred [...] Oral for 30 Days Active Levothyroxine Sodium 150 MCG TAKE 1 TABLET BY MOUTH EVERY DAY for 30 days Active Testosterone Cypionate 200 MG/ML 1 mL [...] Status W/U Status Risk Notes Problem Hypothyroidism (65446435) Hypothyroidism (E03.9) Active confirmed Problem Sleep apnea (95117596) Sleep apnea (G47.30) Active confirmed Problem Vitamin D deficiency (01001211) Vitamin D deficiency (E55.9) Active confirmed Problem Migraine (70760919) Migraine (G43.909) Active c onfirmed Problem Chronic fatigue syndrome (02283986) Chronic fatigue (R53.82) Active confirmed Problem Hypertriglyceridemia (486785211) Hypertriglyceridemia (E78.1) Active confirmed Problem Low testosterone (145087528) Low testosterone (E29.1) Active confirmed Problem Neuralgia (64176536) Neuralgia (M79.2) Active c onfirmed Problem Irritable bowel (54344209) Irritable bowel (K58.9) Active confirmed Problem Mixed anxiety and depressive disorder (745639737) Anxiety and depression (F41.8) Active confirmed Problem Obese class I (finding) ([id number]) Class 1 obesity (E66.9) Active confirmed Problem Polyarticular osteoarthritis (386938996) Polyarticular osteoarthritis (M15.9) Active confirmed Vital Signs [...] Provider Diagnosis [facility] [address] [place] [address] 08/31/2024 Kira Garrison [facility] [address] [place] [address] 09/06/2024 Kira Garrison [facility] [address] [place] [address] 09/10/2024 Kira Garrison [facility] [address] [place] [address] 09/24/2024 Kira Garrison Low testosterone E29 .1 [facility] [address] [place] [address] 09/27/2024 Kira Garrison Hypothyroidism E03.9 [facility] [address] [place] [address] 06/28/2024 Kira Garrison [facility] [address] [facility] [place] [place] [address] 07/24/2024 Kira Garrison [facility] [address] [place] [place] [place] [address] 08/06/2024 Reid Betsy Low testosterone E29 .1 [facility] [address] [facility] [place] [place] [address] 08/09/2024 Kira Garrison Low testosterone E29 .1 [facility] [address] [place] [place] [address] 08/21/2024 Kira Garrison Hypothyroidism E03.9 and Low testosterone E29.1 [facility] [address] [place] [place] [address] 08/27/2024 Kira Garrison Hand pain M79.643 [facility] [address] [place] [place] [address] 06/04/2024 Kira Garrison Wellness examination Z00.00 and Hypothyroidism E03.9 [facility] [address] [place] [place] [address] 06/06/2024 Kira Garrison Hypothyroidism E03.9 and Hypertriglyceridemia E78.1 [facility] [address] [facility] [place] [address] 06/08/2024 Kira Garrison Hypertriglyceridemia E78.1 [facility] [address] [place] [place] [address] 06/12/2024 Reid Meyer [facility] [address] [facility] [place] [place] [address] 06/13/2024 Kira Garrison [facility] [address] [place] [place] [place] [address] 06/18/2024 Kira Garrison Fatigue R53.83 and L ow testosterone E29.1 [facility] [address] [place] [place] [address] 11/04/2023 Kira Garrison [facility] [address] [place] [place] [place] [address] 04/18/2024 Kira Garrison Irritable bowel K58. 9 [facility] [address] [facility] [place] [address] 04/19/2024 Kira Garrison [facility] [address] [place] [place] [address] 04/23/2024 Kira Garrison [facility] [address] [place] [place] [address] 04/30/2024 Kira Garrison Left knee pain M25.5 62 and Polyarticular osteoarthritis M15.9 [facility] [address] [place] [place] [address] 05/11/2024 Kira Garrison [facility] [address] [place] [place] [address] 06/28/2024 Reid Hoy Low testosterone E29 .1 [facility] [address] [place] [place] [address] 07/12/2024 Reid Petery Low testosterone E29 .1 [facility] [address] [place] [place] [address] 07/24/2024 Kira Garrison Low testosterone E29 .1 [facility] [address] [place] [place] [address] 08/16/2024 Kira Garrison Low testosterone E29 .1 [facility] [address] [place] [place] [address] 08/30/2024 Kria Garrison Low testosterone E29 .1 [facility] [address] [place] [place] [address] 04/17/2024 Kira Garrison Wellness examination Z00.00 ; Migraine G43.909 ; Right hand pain M79.641 ; Left knee pain M25.562 ; Irritable bowel K58.9 and Depression F32.A [facility] [address] [facility] [place] [place] [address] 04/20/2024 Kira Garrison Right hand pain M79. 641 ; Hypertriglyceridemia E78.1 ; Left knee pain M25.562 ; Hypothyroidism E03.9 and Vitamin D deficiency E55.9 [facility] [address] [place] [address] 06/13/2024 Kira Yan Fatigue R53.83 ; Low testosterone E29.1 ; Sleep apnea G47.30 and Hypothyroidism E03.9 [facility] [address] [place] [address] 08/27/2024 Kira Garrison Intermittent chest p ain R07.9 ; Fatigue R53.83 and Right hand pain M79.641 [facility] [address] [place] [address] 09/27/2024 Kira Yan Hypothyroidism E03.9 ; Sleep apnea G47.30 ; [...] M79.643) 09/24/2024 Low testosterone (ICD-10 - E29.1) 09/27/2024 Hypothyroidism (ICD- 10 - E03.9) 08/21/2024 Low testosterone (ICD-10 - E29.1) 06/04/2024 [...]
--- OUTSIDE RECORDS SUMMARY | 2024-10-15 19:58 | XMS_ITS | Encounter Summary ---
Author Organization [facility] Address [address] [facility] [place] [address] Care Team Providers Care Clinical Administrator Name Role Phone Kira Heredia MD Unavailable [phone] Unallocated, [facility] Provider Primary Care Provi radha Jasmin Loco DO Unavailable [phone] Encounter Details Date Type Department Care Team (Late st Contact Info) Description 08/31/2024 Orders Only [facility] [address] [facility] [address] [place] [address] Kira Heredia MD [address] [place], [place] [id number] Social History Tobacco Use Types Packs/Day Years [...] on filedocumented in this encounter Care Teams Clinical Administrator Relationship Specialty Start Date End Date Unallocated, [facility] MD Gianluca [address] [place] [address] PCP - General Family Medicine 04/19/24 Kira Heredia MD [address] [id number] Referring Physician Family Medicine 04/19/24 Loco Castellanos DO [address] [address] Referring Physician Neurology 05/17/24 documented as of this encounter
== END 2024-10-15 19:57 | disposition home or self-care (01) ==
LOC: SLEEP 19:56
PROVIDERS: PCP Nurse Practitioner Family; Visit Provider Nurse Practitioner Family
DX: G47.33 Obstructive sleep apnea (adult) (pediatric) (principal)
CPT/HCPCS: 95810

== ENCOUNTER 2024-11-08 14:11 | Outpatient (OUT) | payer OTHER, SELFPAY ==
--- OUTSIDE RECORDS SUMMARY | 2024-09-27 10:00 | XMS_ITS ---
Author Organization [facility] in [place] Address [address] [place] [address] Care Team Providers Care Breakfast Server Name Role Phone Kira Heredia Primary Care Provider Allergies No Known Allergies Reason For Referral Reason MALCOLM, fatigue Diagnosis 1 Sleep apnea (G47.30) Referral Organization [facility] Referring Provider First Name Kira Referring Provider [...] Oil 1000 MG TAKE 1 CAPSULE BY [facility] THREE TIMES DAILY FOR 30 DAYS [...] Notes Problem Mixed anxiety and depressive disorder (762203253) Anxiety and depression (F41.8) Active confirmed Problem Chronic fatigue syndrome (89385973) Chronic fatigue (R53.82) Active confirmed Problem Class 1 obesity (E66.9) Active confirmed Vital Signs Blood pressure systolic 142 mm Hg 09/28/19 25 Blood pressure diastolic 90 mm Hg 025 Height 67 in 09/27/2024 Weight 222.6 lbs 09/27/2024 BMI 34.86 kg/m2 09/27/2024 Encounters Encounter Location Date Provider Diagnosis [facility] [address] [place] [address] 09/27/2024 Kira Heredia Hypothyroidism E03.9 ; Sleep [...] revisit Low testosterone DR Wilder now treati ng this Anxiety and depression stop prozac doesnt [...] Details 09/27/2024 09/27/2024, MALCOLM, fat igue, Kenzie Tennille Next Appt Details Follow Up: prn,4 Weeks, Reas on: Progress Notes * Kody ENCARNACIONDOB: 1 (54 yo M)Acc No.[id number]:09/27/2024 Progress Note Patient: Kody PAVON Provider: Herrera Heredia ([facility]), FUR BLOWER OPERATOR :1970 A ge:54 Y S ex:Male Date:09/27/2024 Address:[address] [place] [address] [facility] Check In:01:46 PM ESTCheck O ut:02:23 PM [...] S kin lesion(s) d enies. ? * Active Problem List E03.9 Hypothyroidism Modified On:04/22/2023U Status:confirmed G47.30 Sleep apnea Modified On:04/08/2023U Status:confirmed E78.1 Hypertriglyceridemia Modified On:04/22/2023U Status:confirmed G43.909 Migraine Modified On:04/17/2024U Status:confirmed K58.9 Irritable bowel Modified On:04/17/2024U Status:confirmed E55.9 Vitamin D deficiency Modified On:04/20/2024U Status:confirmed E29.1 Low testosterone Modified On:04/26/2024U Status:confirmed M15.9 Polyarticular osteoa rthritis Modified On:05/01/2024U Status:confirmed M79.2 Neuralgia Modified On:06/18/2024U Status:confirmed F41.8 Anxiety and depressi on Modified On:09/27/2024U Status:confirmed R53.82 Chronic fatigue Modified On:09/27/2024U Status:confirmed E66.9 Class 1 obesity Modified On:09/27/2024U Status:confirmed * Medical History: * Surgical History: d [...] Orally Twice a day , Discontinued Zenpep(Pancrelipase (Ots-Ettj-Nezx)) 69[address] UNIT Capsule Delayed Release Particles as directed [...] mental health * Preventive Medicine: Screenings/Counseling: B DE ACTION PLAN Above Normal BMI Follow-up D ietary management education, guidance, and counseling See treatment section of progress note for complete details of management plan. * Follow Up: p rn,4 Weeks * * Electronically signed by Pinky Heredia , CATIA, SEARCH LEAD.FUR BLOWER [id number] on 10/01/2024 at 09:13 AM EDT Sign off status: Completed Visit Status: C HK (Check Out) true * Provider: Herrera Heredia ([facility]), FUR BLOWER OPERATOR Date: 0 09/27/2024 Generated for Keisha garcia/Claribel/Renan on: 0 11/08/2024 02:15 PM EDT History and Physical Notes * [...] Not es 09/27/2024 Kira Heredia Nicole OSA, eloyu e
--- OUTSIDE RECORDS SUMMARY | 2024-09-27 12:08 | XMS_ITS ---
Author Organization [facility] in [place] Address [address] [place] [address] Care Team Providers Care Reproduction Machine Loader Name Role Phone Kira Heredia Primary Care Provider [phone] REASON FOR VISIT lab results Medications Medication SIG (Take, Route, Frequency, Duration) Notes Start Date End Date Status Levothyroxine Sodium 150 MCG TAKE 1 TABL ET BY MOUTH EVERY DAY for 30 days Active Encounters Encounter Location Date Provider Diagnosis [address] [address] 09/27/2024 Kira Heredia Hypothyroidism E03.9 Assessments Encounter [...] * Kody ENCARNACIONDOB: [birth year] (54 yo M)Acc No.[id number]:09/27/2024 Patient: Kody PAVON :1970 A ge:54 Y S ex:Male Address:[address], [place] [address] * Refills Refill Levothyroxine Sodium Capsule, 150 [...] Date: Generated for Keisha garcia/Claribel/Renan on: 0 11/08/2024 02:14 PM EDT
--- OUTSIDE RECORDS SUMMARY | 2024-11-06 04:01 | XMS_ITS ---
Author Organization [facility] [place] Address [address] [place] [address] Care Team Providers Care Park Worker Supervisor Name Role Phone Kira Heredia Primary Care Provider REASON FOR VISIT Thyroid Encounters Encounter Location Date Provider Diagnosis [facility] [address] [place] [address] 11/06/2024 Kira Heredia Abnormal thyroid blood test R94.6 Assessments Encounter Date Diagnosis (ICD Code) Assessment Notes Treatment Notes Treatment Clinical Notes Section Notes 11/06/2024 Abnormal thyroid blood test (ICD-10 - R94.6) Plan Of Treatment Pending Test Test Name Order Date THYROID PANEL (T4/TSH/FREE T3) Progress Notes * Kody ENCARNACIONDOB: [birth year] (54 yo M)Acc No.[id number]:11/06/2024 Patient: Kody PAVON :1970 A ge:54 Y S ex:Male Address:[facility], [place] [address] Subjective: * Chief Complaints: * T hyroid * Medical History: * Surgical History: * Hospitalization/Major Diagno stic Procedure: * Medications: Objective: * Vitals: * Physical Examination: Assessment: * Assessment: 1. A bnormal thyroid blood test - R94.6 (Primary) Plan: * Treatment: * Procedure Codes: * true * Date: Generated for Printi ng/Faxing/eTransmitting on: 0 11/08/2024 02:15 PM EDT
--- OUTSIDE RECORDS SUMMARY | 2024-11-08 14:14 | XMS_ITS | Patient Health Record ---
Author Organization [facility] in [place] Address [address] [place] [address] Care Team Providers Care Management Advisor Name Role Phone Kira Garrison Primary Care Provider Betsy Reid Caballero [phone] Allergies No Known Allergies Results Component Value Reference Range Notes IRON Reviewed date:04/17/2024 12:59:36 PM Interpretation: Performing Lab: Notes/Report: [facility] , Iron 129.0 65.0-175.0 ug/dL Performing Lab: see note ML - [facility] LB XR HAND RT MIN 3V Reviewed date:04/17/2024 04:06:04 PM Interpretation: Performing Lab: Notes/Report: Source Facility: [place] [address] XRay Report Signed Patient: KODY ENCARNACION MR#: [id number] : 1970 Acct:[id number] Age/Sex: 53 / M ADM Date: 04/17/24 Loc: LAB Attending Dr: KIRA GARRISON Ordering Physician: KIRA GARRISON Date of Service: 04/17/24 Procedure(s): XR hand RT min 3V Accession Number(s): [id number] cc: KIRA GARRISON [place] [address] Patient Name: KODY ENCARNACION MRN: [id number] date: 1970 Sex: M Assigned Patient Location: LAB Current Patient Location: LAB Accession/Order Number: [id number] Exam Date: 04/17/2024 10:25 Report Date: 04/17/2024 [...] Signed By: 04/17/24 1535 DD/ 1532 TD/TT: Coach: [place] [id number] XRay Report Signed Patient: ANNETTE ENCARNACION MR#: [id number] : 1970 Acct:[id number] Age/Sex: 53 / M ADM Date: 04/17/24 Loc: LAB Attending Dr: KIRA GARRISON Ordering Physician: KIRA GARRISON Date of Service: 04/17/24 Procedure(s): XR mliler d RT min 3V Accession Number(s): [id number] cc: KIRA GARRISON [place] [id number] Patient Name: KODY ENCARNACION MRN: [id number] date: 1970 Sex: M Assigned Patient Location: LAB Current Patient Loca tion: LAB Accession/Order Numb er: [id number] Exam Date: 04/17/2024 10:25 Report Date: 04/17/2024 [...] Signed By: 04/17/24 1535 DD/ 153 TD/TT: Coach: XR KNEE LT 3V Reviewed date:04/17/2024 04:05:58 PM Interpretation: Performing Lab: Notes/Report: Source Facility: [place] [address] XRay Report Signed Patient: KODY ENCARNACION MR#: [id number] : 1970 Acct:[id number] Age/Sex: 53 / M ADM Date: 04/17/24 Loc: LAB Attending Dr: KIRA GARRISON Ordering Physician: KIRA GARRISON Date of Service: 04/17/24 Procedure(s): XR knee LT 3V Accession Number(s): [id number] cc: KIRA GARRISON [place] [address] Patient Name: KODY ENCARNACION MRN: [id number] date: 1970 Sex: M Assigned Patient Location: LAB Current Patient Location: LAB Accession/Order Number: [id number] Exam Date: 04/17/2024 10:25 Report Date: 04/17/2024 [...] Signed By: 04/17/24 1535 DD/ 153 TD/TT: Coach: [place] [address] XRay Report Signed Patient: ANNETTE ENCARNACION MR#: [id number] : 1970 Acct:[id number] Age/Sex: 53 / M ADM Date: 04/17/24 Loc: LAB Attending Dr: KIRA GARRISON Ordering Physician: KIRA GARRISON Date of Service: 04/17/24 Procedure(s): XR kne e LT 3V Accession Number(s): [id number] cc: KIRA GARRISON [place] [address] Patient Name: KODY ENCARNACION MRN: [id number] date: 1970 Sex: M Assigned Patient Location: LAB Current Patient Loca tion: LAB Accession/Order Numb er: [id number] Exam Date: 04/17/2024 10:25 Report Date: 04/17/2024 [...] Signed By: 04/17/24 153 DD/ 153 TD/TT: Coach: CBC AUTO DIFF Reviewed date:04/17/2024 12:59:36 PM Interpretation: Performing Lab: Notes/Report: [facility] , White Blood Count 5.8 4.0-11.0 [...] Performing Lab: see note ML - [facility] LB DIRECT LDL Reviewed date:04/17/2024 12:59:36 PM Interpretation: Performing Lab: Notes/Report: [facility] , LDL Cholesterol Direct 49 <100 mg/dl OPTIMAL 100-129 mg/dl NEAR OR ABOVE OPTIMAL 160-189 mg/dl HIGH 130-159 mg/dl BORDERLINE HIGH >190 mg/dl VERY HIGH Performing Lab: see note - [facility] LB FREE T3 Reviewed date:04/17/2024 12:59:36 PM Interpretation: Performing Lab: Notes/Report: [facility] , Free T3 2.15 2.18-3.98 pg/mL Performing Lab: see note - [facility] LB INSULIN Reviewed date:04/18/2024 09:12:23 AM Interpretation: Performing Lab: Notes/Report: [facility] , Insulin 15.6 2.6-24.9 uIU/mL Performed at: [facility] Lead Cargoman: Atul Reid PhD, Phone: [phone] [employer] [place], [place] [phone] Performing Lab: see note [facility] LB LAB TESTING Reviewed date:04/18/2024 09:12:23 AM Interpretation: Performing Lab: Notes/Report: [id number] URIC ACID [facility] , Miscellaneous Test COMMENT . Uric Acid 8.2 mg/dL CB Performed at: [facility] Therapeutic target for gout patients: <6.0 Test Ordered: [id number] Uric Acid Lead Cargoman: Atul Reid PhD, Phone: [phone] [address] [place], [place] [phone] Reference Range: 3.8-8.4 Performing Lab: see note [facility] LB LIPID PROFILE Reviewed date:04/17/2024 12:59:36 PM Interpretation: Performing Lab: Notes/Report: [facility] , Triglycerides 3317 <=150 mg/dL Cholesterol 301 <=200 mg/dL HDL Cholesterol 27 40-60 mg/dL > or =60 mg/dl - LOW CARDIOVASCULAR RISK <40 mg/dl - HIGH CARDIOVASCULAR RISK VLDL CHOLESTEROL 663.4 Chol HDL Ratio 11.1 >11.0 HIGH RISK 3.3 - 4.4 LOW RISK 7.1 - 11.0 MODERATE RISK 4.4 - 7.1 AVERAGE RISK Performing Lab: see note ML - [facility] LB PSA SCREENING Reviewed date:04/17/2024 12:59:36 PM Interpretation: Performing Lab: Notes/Report: [facility] , Prostate Specific Antigen Scrn 0.22 <=4.00 ng/mL Performing Lab: see note ML - [facility] LB T4 Reviewed date:04/17/2024 12:59:36 PM Interpretation: Performing Lab: Notes/Report: [facility] , T4 Thyroxine 4.30 4.50-12.10 ug/dL Performing Lab: see note ML - [facility] LB TSH Reviewed date:04/17/2024 12:59:36 PM Interpretation: Performing Lab: Notes/Report: [facility] , Thyroid Stimulating Hormone 27.573 0.358-3.740 uIU/mL Performing Lab: see note - [facility] LB VITAMIN D 25 [place] Reviewed date:04/17/2024 12:59:36 PM Interpretation: Performing Lab: Notes/Report: [facility] , Vitamin D 21.6 30-100 ng/mL Vit D sufficient <20 ng/mL Vit D deficient >100 ng/mL Potential Toxicity 20-<30 ng/mL Vit D insufficient Performing Lab: see note ML - [facility] LB Occult Blood* Reviewed date:04/19/2024 12:06:25 PM Interpretation: Performing Lab: Notes/Report: [facility] , Occult Blood Negative Performing Lab: see note ML - [facility] LB MR head/brain wo con Reviewed date:05/11/2024 12:35:06 PM Interpretation: Performing Lab: Notes/Report: Source Facility: [facility] [place] [address] [place] [address] Magnetic Resonance Report Signed Patient: KODY ENCARNACION MR#: [id number] : 1970 Acct:[id number] Age/Sex: 53 / M ADM Date: 05/08/24 Loc: MRI Attending Dr: KIRA GARRISON Ordering Physician: KIRA GARRISON Date of Service: 05/08/24 Procedure(s): MR head/brain wo con Accession Number(s): [id number] cc: KIRA GARRISON [address] [address] Patient Name: KODY ENCARNACION MRN: [id number] date: 1970 Sex: M Assigned Patient Location: MRI Current Patient Location: MRI Accession/Order Number: [id number] Exam Date: 05/08/2024 09:00 Report Date: 05/08/2024 [...] Signed By: 05/08/24 1302 DD/ 1259 TD/TT: Coach: [place] [address] Magnetic Resonance Report Signed Patient: ANNETTE ENCARNACION MR#: [id number] : 1970 Acct:[id number] Age/Sex: 53 / M ADM Date: 05/08/24 Loc: MRI Attending Dr: KIRA GARRISON Ordering Physician: KIRA GARRISON Date of Service: 05/08/24 Procedure(s): MR head/brain wo con Accession Number(s): [id number] cc: KIRA GARRISON [address] [address] Patient Name: KODY ENCARNACION MRN: [id number] date: 1970 Sex: M Assigned Patient Location: MRI Current Patient Loca tion: MRI Accession/Order Numb er: [id number] Exam Date: 05/08/2024 09:00 Report Date: 05/08/2024 [...] Signed By: 05/08/24 1302 DD/ 1259 TD/TT: Coach: MARY by IFA Reviewed date:05/22/2024 08:17:18 AM Interpretation: Performing Lab: Notes/Report: [facility] , Antinuclear Antibodies, IFA Negative . International Consensus on Antinuclear Antibody (MARY) Borderline 1:80 Negative <1:[address] [place] [phone] Patterns (ICAP). ANApatterns.org, the official website for the For more information about Hep-2 cell patterns use Positive >1:80 Lead Cargoman: Atul Reid PhD, Phone: [phone] Performed at: [facility] nomenclature: AC-0 Performing Lab: see note - [facility] LB CBC AUTO DIFF Reviewed date:05/22/2024 08:17:45 AM Interpretation: Performing Lab: Notes/Report: [facility] , White Blood Count 5.8 4.0-11.0 [...] Performing Lab: see note ML - [facility] LB CRP Reviewed date:05/22/2024 08:17:45 AM Interpretation: Performing Lab: Notes/Report: [facility] , C Reactive Protein <0.50 <=0.50 mg/dL Performing Lab: see note - [facility] LB PROF CHEM 8 (BAS METB) Reviewed date:05/22/2024 08:17:45 AM Interpretation: Performing Lab: Notes/Report: [facility] , Sodium 138 136-145 mmol/L Potassium [...] 8.5-10.1 mg/dL Performing Lab: see note - [facility] LB RHEUMATOID FACTOR Reviewed date:05/22/2024 08:17:45 AM Interpretation: Performing Lab: Notes/Report: [facility] , Rheumatoid Factor (RF) 13.8 <14.0 IU/mL Lead Cargoman: Atul Reid PhD, Phone: [phone] [address] [place], [place] [phone] Performed at: [facility] Performing Lab: see note [facility] HLA B 27 Disease Association Reviewed date:05/22/2024 08:17:45 AM Interpretation: Performing Lab: Notes/Report: [facility] , HLA B 27 Disease Association Negative . Lead Cargoman: Elizabeth Quevedo PhD, Phone: [phone] by the Food and Drug Administration. The FDA has determined that such clearance or approval is supplemental method when necessary. technique. Sequence Based Typing (SBT) may be used as a This test was developed and its performance characteristics This test was performed using Polymerase Chain Reaction (PCR) and Sequence Specific Oligonucleotide Probes (SSOP) determined by [facility]. It has not been cleared or approved [address] [place] [id number] Performed at: [address] [place] [address] DNA not necessary. B27 allele interpretation for all loci based on IMGT/HLA database version 3.51.0 If you have questions, please call HLA customer service HLA Lab CLIA ID Number [id number] at or email at [email or web address] HLA-B*27 Negative Performing Lab: see note [facility] CBC AUTO DIFF Reviewed date:06/06/2024 09:35:27 AM Interpretation: Performing Lab: Notes/Report: [facility] , White Blood Count 7.2 4.0-11.0 [...] Performing Lab: see note ML - [facility] LB DIRECT LDL Reviewed date:06/06/2024 09:35:27 AM Interpretation: Performing Lab: Notes/Report: [facility] , LDL Cholesterol Direct 49 <100 mg/dl OPTIMAL 100-129 mg/dl NEAR OR ABOVE OPTIMAL 160-189 mg/dl HIGH >190 mg/dl VERY HIGH 130-159 mg/dl BORDERLINE HIGH Performing Lab: see note - [facility] LB CBC AUTO DIFF Reviewed date:08/13/2024 11:42:12 AM Interpretation: Performing Lab: Notes/Report: [facility] , White Blood Count 4.7 4.0-11.0 [...] Performing Lab: see note ML - [facility] LB DIRECT LDL Reviewed date:08/13/2024 11:42:12 AM Interpretation: Performing Lab: Notes/Report: [facility] , LDL Cholesterol Direct 50 <100 mg/dl OPTIMAL 130-159 mg/dl BORDERLINE HIGH >190 mg/dl VERY HIGH 100-129 mg/dl NEAR OR ABOVE OPTIMAL 160-189 mg/dl HIGH Performing Lab: see note ML - [facility] LB FREE T3 Reviewed date:08/13/2024 11:42:12 AM Interpretation: Performing Lab: Notes/Report: [facility] , Free T3 2.47 2.18-3.98 pg/mL Performing Lab: see note ML - [facility] LB LIPID PROFILE Reviewed date:08/13/2024 11:42:12 AM Interpretation: Performing Lab: Notes/Report: [facility] , Triglycerides 1318 <=150 mg/dL Cholesterol 215 <=200 mg/dL HDL Cholesterol 37 40-60 mg/dL <40 mg/dl - HIGH CARDIOVASCULAR RISK > or =60 mg/dl - LOW CARDIOVASCULAR RISK VLDL CHOLESTEROL 263.6 Chol HDL Ratio 5.8 4.4 - 7.1 AVERAGE RISK >11.0 HIGH RISK 3.3 - 4.4 LOW RISK 7.1 - 11.0 MODERATE RISK Performing Lab: see note ML - [facility] LB PSA SCREENING Reviewed date:08/13/2024 11:42:12 AM Interpretation: Performing Lab: Notes/Report: [facility] , Prostate Specific Antigen Scrn 0.44 <=4.00 ng/mL Performing Lab: see note ML - [facility] LB T4 Reviewed date:08/13/2024 11:42:12 AM Interpretation: Performing Lab: Notes/Report: [facility] , T4 Thyroxine 3.10 4.50-12.10 ug/dL Performing Lab: see note ML - [facility] LB TSH Reviewed date:08/13/2024 11:42:12 AM Interpretation: Performing Lab: Notes/Report: [facility] , Thyroid Stimulating Hormone 24.729 0.358-3.740 uIU/mL Performing Lab: see note ML - [facility] LB Testosterone Reviewed date:08/13/2024 11:42:12 AM Interpretation: Performing Lab: Notes/Report: [facility] , Testosterone 168 264-916 ng/dL [id number]. Adult male reference interval is based on a population of healthy nonobese males (BMI <30) between 19 and 39 years Lead Cargoman: Atul Reid PhD, Phone: [phone] [address] [place], [place] [phone] old. gus Levy.al. JCEM 2017,102;0598-8276. PMID: Performed at: CB - [facility] [place] Performing Lab: see note LC - [facility] LB MR hand RT wo con Reviewed date:08/31/2024 11:57:15 AM Interpretation: Performing Lab: Notes/Report: Source Facility: [facility] [place] [address] [place] [address] Magnetic Resonance Report Signed Patient: KODY ENCARNACION MR#: [id number] : 1970 Acct:[id number] Age/Sex: 53 / M ADM Date: 08/31/24 Loc: MRI Attending Dr: KIRA GARRISON Ordering Physician: KIRA GARRISON Date of Service: 08/31/24 Procedure(s): MR hand RT wo con Accession Number(s): [id number] cc: KIRA GARRISON [address] [address] Patient Name: KODY ENCARNACION MRN: [id number] date: 1970 Sex: M Assigned Patient Location: MRI Current Patient Location: MRI Accession/Order Number: [id number] Exam Date: 08/31/2024 11:25 Report Date: 08/31/2024 [...] Xie M.D. 08/31/2024 11:33 AM Dictation Location: [place] [address] Electronically authenticated by: [id number] Y Date: 08/31/2024 11:33 Dictated By: Ken Xie M.D. Signed By: 08/31/24 1135 DD/ 1133 TD/TT: Coach: [place] [address] Magnetic Resonance Report Signed Patient: ANNETTE ENCARNACION MR#: [id number] : 1970 Acct:[id number] Age/Sex: 53 / M ADM Date: 08/31/24 Loc: MRI Attending Dr: KIRA GARRISON Ordering Physician: KIRA GARRISON Date of Service: 08/31/24 Procedure(s): MR angela meraz RT wo con Accession Number(s): [id number] cc: KIRA GARRISON [place] [address] Patient Name: KODY ENCARNACION MRN: [id number] date: 1970 Sex: M Assigned Patient Location: MRI Current Patient Loca tion: MRI Accession/Order Numb er: [id number] Exam Date: 08/31/2024 11:25 Report Date: 08/31/2024 [...] Xie M.D. 08/31/2024 11:33 AM Dictation Location: [place] [address] Electronically authenticated by: [id number] Y Date: 08/31/2024 11:33 Dictated By: Ken Xie M.D. Signed By: 08/31/24 1135 DD/ 1133 TD/TT: Coach: YVONNE veronika perf SPECT rest str Reviewed date:09/06/2024 12:53:58 PM Interpretation: Performing Lab: Notes/Report: Source Facility: [place] [address] Nuclear Medicine Report Signed Patient: KODY ENCARNACION MR#: [id number] : 1970 Acct:[id number] Age/Sex: 54 / M ADM Date: 09/04/24 Loc: YVONNE Attending Dr: KIRA GARRISON Ordering Physician: KIRA GARRISON Date of Service: 09/04/24 Procedure(s): NM veronika perf SPECT rest str Accession Number(s): [id number] cc: KIRA GARRISON Patient Name: KODY ENCARNACION MR#: [id number] : 1970 Exam Date: 09/04/2024 Ordering Doctor: KIRA GARRISON [facility] RADIOLOGY REPORT PROCEDURE: NM VERONIKA PERF [...] the study was pending per attending physician [facility]. For more details, please see separate cardiac [...] M.D. Signed By: 09/05/241652 DD/ 51 TD/TT: Coach: [place] [address] Nuclear Medicine Report Signed Patient: ANNETTE ENCARNACION MR#: [id number] : 1970 Acct:[id number] Age/Sex: 54 / M ADM Date: 09/04/24 Loc: NM Attending Dr: KIRA GARRISON Ordering Physician: KIRA GARRISON Date of Service: 09/04/24 Procedure(s): NM veronika perf SPECT rest str Accession Number(s): [id number] cc: KIRA GARRISON Patient Name: KODY ENCARNACION MR#: [id number] : 1970 Exam Date: 09/04/2024 Ordering Doctor: SUREKHA GARRISON [facility] RADIOLOGY REPORT PROCEDURE: NM VERONIKA PE [...] study was pendin g per attending physician [facility]. For more details, please see separate cardiac [...] M.D. Signed By: 09/05/241652 DD/ 51 TD/TT: Coach: PROLACTIN Reviewed date:09/12/2024 10:18:42 AM Interpretation: Performing Lab: Notes/Report: [facility] , Prolactin 18.3 3.6-25.2 ng/mL [address] [place], [place] [phone] Lead Cargoman: Atul Reid PhD, Phone: [phone] Performed at: [facility] Performing Lab: see note [facility] LB FREE T3 Reviewed date:09/27/2024 04:10:37 PM Interpretation: Performing Lab: Notes/Report: [facility] , Free T3 2.13 2.18-3.98 pg/mL Performing Lab: see note ML - [facility] LB T4 Reviewed date:09/27/2024 04:10:37 PM Interpretation: Performing Lab: Notes/Report: [facility] , T4 Thyroxine 3.30 4.50-12.10 ug/dL Performing Lab: see note - [facility] LB TSH Reviewed date:09/27/2024 04:10:29 PM Interpretation: Performing Lab: Notes/Report: [facility] , Thyroid Stimulating Hormone 20.514 0.358-3.740 uIU/mL Performing Lab: see note ML - [facility] LB TSH Reviewed date:06/06/2024 09:35:27 AM Interpretation: Performing Lab: Notes/Report: [facility] , Thyroid Stimulating Hormone 46.230 0.358-3.740 uIU/mL Performing Lab: see note ML - [facility] LB T4 Reviewed date:06/06/2024 09:35:27 AM Interpretation: Performing Lab: Notes/Report: [facility] , T4 Thyroxine 0.90 4.50-12.10 ug/dL Performing Lab: see note ML - [facility] LB LIPID PROFILE Reviewed date:06/06/2024 09:35:27 AM Interpretation: Performing Lab: Notes/Report: [facility] , Triglycerides 1473 <=150 mg/dL Cholesterol 245 <=200 mg/dL HDL Cholesterol 36 40-60 mg/dL > or =60 mg/dl - LOW CARDIOVASCULAR RISK <40 mg/dl - HIGH CARDIOVASCULAR RISK VLDL CHOLESTEROL 294.6 Chol HDL Ratio 6.8 4.4 - 7.1 AVERAGE RISK 7.1 - 11.0 MODERATE RISK >11.0 HIGH RISK 3.3 - 4.4 LOW RISK Performing Lab: see note ML - [facility] FREE T3 Reviewed date:06/06/2024 09:35:27 AM Interpretation: Performing Lab: Notes/Report: [facility] , Free T3 1.80 2.18-3.98 pg/mL Performing Lab: see note ML - [facility] LB Erythrocyte Sedimentation Ra te Reviewed date:05/22/2024 08:17:45 AM Interpretation: Performing Lab: Notes/Report: [facility] , Erythrocyte Sedimentation Rate 16 <=20 mm/hr Performing Lab: see note ML - [facility] LB LAB TESTING Reviewed date:04/30/2024 03:58:21 PM Interpretation: Performing Lab: Notes/Report: [id number] METABOLIC PANEL 14, COMPREHENSIVE [facility] , Miscellaneous Test SEE SCANN ED REPORT Performing Lab: see note LC - [facility] LB Vitamin B12 Reviewed date:04/18/2024 09:12:24 AM Interpretation: Performing Lab: Notes/Report: [facility] , Vitamin B12 537 554-9281 pg/mL Performed at: - [facility] [place] [id number] Lead Cargoman: Atul Reid PhD, Phone: [phone] Performing Lab: see note LC - [facility] LB GLYCOHEMOGLOBIN A1C Reviewed date:04/17/2024 12:59:36 PM Interpretation: Performing Lab: Notes/Report: [facility] , Glycohemoglobin A1C 6.1 4.5-6.2 % > 7.0 ADA THERAPEUTIC TARGET < 7.0 ADA RECOMMENDED LIMIT 4.0 - 6.0 ACTION SUGGESTED Estimated Average Glucose 128 Performing Lab: see note ML - [facility] LB Reason For Referral Reason headache for 6 month s Diagnosis 1 Migraine (G43.909) Referral Organization [facility] Referring Provider First Name Kira Referring Provider Last Name Yan Referring Provider [facility] iciayesha Referred Provider Kenzie Null Referred Provider Specialty Neurology Referral Priority Routine Reason IBS Diagnosis 1 Irritable bowel (K58 .9) Referral Organization [facility] Referring Provider First Name Kira Referring Provider Last Name Yan Referring Provider [facility] icine Referred Provider Cristobal Moncada Referred Provider Specialty Gastroentero logy Referral Priority Routine Diagnosis 1 Irritable bowel (K58 .9) Referral Organization [facility] Referring Provider First Name Kira Referring Provider Last Name Yan Referring Provider [facility] iciayesha Referred Provider Alejandra Hayden Referred Provider Specialty Gastroentero logy Referral Priority Routine Diagnosis 1 Left knee pain (M25. 562) Referral Organization [facility] Referring Provider First Name Kira Referring Provider Last Name Yan Referring Provider [facility] tam Referred Provider John Cartagena Referred Provider Specialty Orthopedic S urgery Referral Priority Routine Diagnosis 1 Polyarticular osteoa rthritis (M15.9) Referral Organization [facility] Referring Provider First Name Kira Referring Provider Last Name Yan Referring [facility] Referred Provider Abdi Duke Referred Provider Specialty Rheumatology Referral Priority Routine Diagnosis 1 Hand pain (M79.643) Referral Organization [facility] Referring Provider First Name Kira Referring Provider Last Name Yan Referring Provider [facility] iciayesha Referred Provider Jose Pfeiffer ( James) Referred Provider Specialty Orthopedic S urgery General Notes Taylor Bennett 2024 08:40:44 AM >Second Opinion Referral Priority Routine Reason MALCOLM, fatigue Diagnosis 1 Sleep apnea (G47.30) Referral Organization [facility] Medicine Referring Provider First Name Kira Referring Provider Last Name Yan Referring Provider Speciality Family [facility] tam Referred Provider Kenzie Null Referred Provider [...] Status W/U Status Risk Notes Problem Hypothyroidism (53758220) Hypothyroidism (E03.9) Active confirmed Problem Sleep apnea (28759009) Sleep apnea (G47.30) Active confirmed Problem Vitamin D deficiency (05016642) Vitamin D deficiency (E55.9) Active confirmed Problem Migraine (46079331) Migraine (G43.909) Active c onfirmed Problem Chronic fatigue syndrome (79622568) Chronic fatigue (R53.82) Active confirmed Problem Hypertriglyceridemia (027562775) Hypertriglyceridemia (E78.1) Active confirmed Problem Low testosterone (337795214) Low testosterone (E29.1) Active confirmed Problem Neuralgia (76278608) Neuralgia (M79.2) Active c onfirmed Problem Irritable bowel (00533330) Irritable bowel (K58.9) Active confirmed Problem Mixed anxiety and depressive disorder (099649120) Anxiety and depression (F41.8) Active confirmed Problem Obese class I (finding) (208794288579037) Class 1 obesity (E66.9) Active confirmed Problem Polyarticular osteoarthritis ([id number]) Polyarticular osteoarthritis (M15.9) Active confirmed Vital Signs [...] N/A Encounters Encounter Location Date Provider Diagnosis [id number] [place] [address] 09/27/2024 Kira Garrison Hypothyroidism E03.9 ; Sleep apnea G47.30 ; Low testosterone E29.1 ; Anxiety and depression F41.8 and Chronic fatigue R53.82 [address] [place] [address] 04/17/2024 Kira Garrison Wellness examination Z00.00 ; Migraine G43.909 ; Right hand pain M79.641 ; Left knee pain M25.562 ; Irritable bowel K58.9 and Depression F32.A [facility] [address] [place] [address] 04/20/2024 Kira Garrison Right hand pain M79. 641 ; Hypertriglyceridemia E78.1 ; Left knee pain M25.562 ; Hypothyroidism E03.9 and Vitamin D deficiency E55.9 [facility] [address] [place] [address] 06/13/2024 Kira Garrison Fatigue R53.83 ; Low testosterone E29.1 ; Sleep apnea G47.30 and Hypothyroidism E03.9 [facility] [address] [place] [address] 08/27/2024 Kira Garrison Intermittent chest p ain R07.9 ; Fatigue R53.83 and Right hand pain M79.641 [facility] [address] [place] [address] 06/28/2024 Reid Hoy Low testosterone E29 .1 [facility] [address] [place] [address] 07/12/2024 Redi Hoy Low testosterone E29 .1 [facility] [address] [place] [address] 07/24/2024 Kira Garrison Low testosterone E29 .1 [facility] [address] [place] [address] 08/16/2024 Kira Garrison Low testosterone E29 .1 [facility] [address] [place] [address] 08/30/2024 Kira Garrison Low testosterone E29 .1 [facility] [address] [place] [address] 04/18/2024 Kira Garrison Irritable bowel K58. 9 [facility] [address] [place] [address] 04/19/2024 Kira Garrison [facility] [address] [place] [address] 04/23/2024 Kira Garrison [facility] [address] [place] [address] 04/30/2024 Kira Garrison Left knee pain M25.5 62 and Polyarticular osteoarthritis M15.9 [facility] [address] [place] [address] 05/11/2024 Kira Garrison [facility] [address] [place] [address] 06/04/2024 Kira Garrison Wellness examination Z00.00 and Hypothyroidism E03.9 [facility] [address] [place] [address] 06/06/2024 Kira Garrison Hypothyroidism E03.9 and Hypertriglyceridemia E78.1 [facility] [address] [facility] [place] [address] 06/08/2024 Kira Garrison Hypertriglyceridemia E78.1 [facility] [address] [place] [address] 06/12/2024 Reid Meyer [facility] [address] [place] [address] 06/13/2024 Kira Garrison [facility] [address] [place] [address] 06/18/2024 Kira Garrison Fatigue R53.83 and L ow testosterone E29.1 [facility] [address] [place] [address] 06/28/2024 Kira Garrison [facility] [address] [place] [address] 07/24/2024 Kira Garrison [facility] [address] [place] [address] 08/06/2024 Reid Meyer Low testosterone E29 .1 [facility] [address] [place] [address] 08/09/2024 Kira Garrison Low testosterone E29 .1 [facility] [address] [place] [address] 08/21/2024 Kira Garrison Hypothyroidism E03.9 and Low testosterone E29.1 [facility] [address] [place] [address] 08/27/2024 Kira Garrison Hand pain M79.643 [facility] [address] [place] [address] 08/31/2024 Kira Garrison [facility] [address] [place] [address] 09/06/2024 Kira Garrison [facility] [address] [place] [address] 09/10/2024 Kira Garrison [facility] [address] [place] [address] 09/24/2024 Kira Garrison Low testosterone E29 .1 [facility] [address] [place] [address] 09/27/2024 Kira Garrison Hypothyroidism E03.9 [facility] [address] [place] [address] 11/06/2024 Kira Garrison Abnormal thyroid blo od test R94.6 Assessments Encounter Date Diagnosis (ICD [...] E29.1) 09/27/2024 Hypothyroidism (ICD- 10 - E03.9) 11/06/2024 Abnormal thyroid blo od test (ICD-10 - R94.6) 08/21/2024 Low testosterone (ICD-10 - E29.1) 06/04/2024 [...] T3) 5 THYROID PANEL (T4/TSH/FREE T3) 5 Vitamin D 04/08/2023 Vitamin D 04/17/2024 Lipid [...]
--- OUTSIDE RECORDS SUMMARY | 2024-11-08 14:14 | XMS_ITS | Clinical Summary ---
Author Organization [facility] Healthcare Address [address] [place] [address] Care Team Providers Care Kier Hand Name Role Phone Kira Heredia MD Unavailable [phone] Unallocated, [facility] Provider Primary Care Provi radha Jasmin Davidsonnorman DO Unavailable [phone] Allergies No known active allergies Medications cholecalciferol [...] Department Care Team Description 08/31/2024 Orders Only [facility] [place] [facility] [address] [place] [address] Kira Heredia MD from Last 3 Months [...] Final Result from Last [address] [place] [id number] [email or web address] Care Teams Kier Hand Relationship Specialty Start Date End Date Unallocated, [facility] Provider, [address] [place] [address] PCP - General Family Medicine 04/19/24 Kira Heredia MD [address] [place] [address] Referring Physician Family Medicine 04/19/24 Loco Castellanos DO [address] [address] Referring Physician Neurology 05/17/24
--- OUTSIDE RECORDS SUMMARY | 2024-11-08 14:14 | XMS_ITS | Encounter Summary ---
Author Organization [facility] Address [address] [place] [address] Care Team Providers Care Fruit Grower Name Role Phone Kira Heredia MD Unavailable [phone] Unallocated, [facility] Gianluca ROMERO Primary Care Provi radha Jasmin Loco DO Unavailable [phone] Encounter Details Date Type Department Care Team (Late st Contact Info) Description 08/31/2024 Orders Only [facility] [address] [place] [id number] Kira Heredia MD [address] [place], [place] [phone] Social History Tobacco Use Types Packs/Day Years [...] on filedocumented in this encounter Care Teams Fruit Grower Relationship Specialty Start Date End Date Unallocated, Nomsofya Hough MD [address] [place] [address] PCP - General Family Medicine 04/19/24 Kira Heredia MD [address] [place] [phone] Referring Physician Family Medicine 04/19/24 Loco Castellanos DO [address] [address] Referring Physician Neurology 05/17/24 documented as of this encounter
[2024-11-08 15:36] LABS: Free T3 2.00 pg/mL (2.18-3.98); Thyroid Stimulating Hormone 10.166 uIU/mL (0.358-3.740)
== END 2024-11-08 14:12 | disposition home or self-care (01) ==
LOC: LAB 14:12
PROVIDERS: PCP Nurse Practitioner Family; Visit Provider Nurse Practitioner Family
DX: R94.6 Abnormal results of thyroid function studies (principal)
CPT/HCPCS: 36415; 84436; 84443; 84481

== ENCOUNTER 2024-12-02 19:36 | Emergency (ER) | payer OTHER, SELFPAY ==
--- OUTSIDE RECORDS SUMMARY | 2024-09-27 12:08 | XMS_ITS ---
Author Organization [facility] in [place] Address [address] [place] [address] Care Team Providers Care Pit Crew Support Worker Name Role Phone Kira Heredia Primary Care Provider REASON FOR VISIT lab results Medications Medication SIG (Take, Route, Frequency, Duration) Notes Start Date End Date Status Levothyroxine Sodium 150 MCG TAKE 1 TABL ET BY MOUTH EVERY DAY for 30 days Active Encounters Encounter Location Date Provider Diagnosis [address] [address] 09/27/2024 Kira Heredia Hypothyroidism E03.9 Assessments Encounter Date Diagnosis (ICD Code) Assessment Notes Treatment Notes Treatment Clinical Notes Section Notes 09/27/2024 Hypothyroidism (ICD-10 - E03.9) Plan Of Treatment Medication Medication Name Sig Start Date Stop Date Notes Levothyroxine Sodium 150 MCG TAKE 1 TABL ET BY MOUTH EVERY DAY for 30 days Pending Test Test Name Order Date THYROID PANEL (T4/TSH/FREE T3) Progress Notes * Kody ENCARNACIONDOB: 1 (54 yo M)Acc No.[id number]:09/27/2024 Patient: Kody PAVON :1970 A ge:54 Y S ex:Male Address:[address], [place] [address] * Refills Refill Levothyroxine Sodium Capsule, 150 MCG, 30 Tablet, TAKE 1 TABLET BY MOUTH EVERY DAY, 30 days, Refills=1 Subjective: * Chief Complaints: * L ab results * Medical History: * Surgical History: * Hospitalization/Major Diagno stic Procedure: * Medications: Objective: * Vitals: * Physical Examination: Assessment: * Assessment: 1. H ypothyroidism - E03.9 Plan: * Treatment: * Procedure Codes: * true * Date: Generated for Keisha garcia/Claribel/Renan on: 0 12/02/2024 07:41 PM EDT
--- OUTSIDE RECORDS SUMMARY | 2024-11-06 04:01 | XMS_ITS ---
Author Organization [facility] [place] Address [address] [place] [address] Care Team Providers Care Ladderman Name Role Phone Kira Heredia Primary Care Provider REASON FOR VISIT Thyroid Encounters Encounter Location Date Provider Diagnosis [facility] [address] [place] [address] 11/06/2024 Kira Heredia Abnormal thyroid blood test R94.6 Assessments Encounter Date Diagnosis (ICD Code) Assessment Notes Treatment Notes Treatment Clinical Notes Section Notes 11/06/2024 Abnormal thyroid blood test (ICD-10 - R94.6) Plan Of Treatment Pending Test Test Name Order Date THYROID PANEL (T4/TSH/FREE T3) Progress Notes * Kody ENCARNACIONDOB: 1 (54 yo M)Acc No.[id number]:11/06/2024 Patient: Kody PAVON :1970 A ge:54 Y S ex:Male Address:[address] [place] [address] [address] [place] [address] Subjective: * Chief Complaints: * T hyroid * Medical History: * Surgical History: * Hospitalization/Major Diagno stic Procedure: * Medications: Objective: * Vitals: * Physical Examination: Assessment: * Assessment: 1. A bnormal thyroid blood test - R94.6 (Primary) Plan: * Treatment: * Procedure Codes: * true * Date: Generated for Printi ng/Faxing/eTransmitting on: 0 12/02/2024 07:42 PM EDT
--- OUTSIDE RECORDS SUMMARY | 2024-11-12 10:21 | XMS_ITS ---
Author Organization [facility] [place] Address [address] [place] [address] Care Team Providers Care Electrolysis Needle Operator Name Role Phone Kira Heredia Primary Care Provider REASON FOR VISIT review labs Medications Medication SIG (Take, Route, Frequency, Duration) Notes Start Date End Date Status Levothyroxine Sodium 175 MCG TAKE 1 TABL ET BY MOUTH EVERY DAY for 30 days Active Encounters Encounter Location Date Provider Diagnosis [address] [address] 11/12/2024 Kira Heredia Hypothyroidism E03.9 Assessments Encounter Date Diagnosis (ICD Code) Assessment Notes Treatment Notes Treatment Clinical Notes Section Notes 11/12/2024 Hypothyroidism (ICD-10 - E03.9) Plan Of Treatment Medication Medication Name Sig Start Date Stop Date Notes Levothyroxine Sodium 175 MCG TAKE 1 TABL ET BY MOUTH EVERY DAY for 30 days Pending Test Test Name Order Date THYROID PANEL (T4/TSH/FREE T3) Progress Notes * Kody ENCARNACIONDOB: 1 (54 yo M)Acc No.[id number]:11/12/2024 Patient: Kody PAVON :1970 A ge:54 Y S ex:Male Address:[address], [place] [address] * Refills Refill Levothyroxine Sodium Capsule, 175 MCG, 30 Tablet, TAKE 1 TABLET BY MOUTH EVERY DAY, 30 days, Refills=11 Subjective: * Chief Complaints: * R eview labs * Medical History: * Surgical History: * Hospitalization/Major Diagno stic Procedure: * Medications: Objective: * Vitals: * Physical Examination: Assessment: * Assessment: 1. H ypothyroidism - E03.9 Plan: * Treatment: * Procedure Codes: * true * Date: Generated for Keisha garcia/Claribel/Antonetteitting on: 0 12/02/2024 07:41 PM EDT
--- OUTSIDE RECORDS SUMMARY | 2024-12-02 19:41 | XMS_ITS | Encounter Summary ---
Author Organization [facility] Address [address] [place] [address] Care Team Providers Care Hand Mexican Food Maker Name Role Phone Kira Heredia MD Unavailable [phone] Unallocated, [facility] Gianluca ROMERO Primary Care Provi radha Jasmin Loco DO Unavailable [phone] Encounter Details Date Type Department Care Team (Late st Contact Info) Description 08/31/2024 Orders Only [facility] [address] [facility] [place] [phone] Kira Heredia MD [address] [place], [place] [id number] Social History Tobacco Use Types Packs/Day Years [...] on filedocumented in this encounter Care Teams Hand Mexican Food Maker Relationship Specialty Start Date End Date Unallocated, Nomsofya Hough MD [address] [place] [address] PCP - General Family Medicine 04/19/24 Kira Heredia MD [address] [place] [phone] Referring Physician Family Medicine 04/19/24 Loco Castellanos DO [address] [address] Referring Physician Neurology 05/17/24 documented as of this encounter
--- OUTSIDE RECORDS SUMMARY | 2024-12-02 19:41 | XMS_ITS | CCD ---
Author Organization [facility] Care Team Providers Care 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 Name Role Phone NADERER, LUIS ANTONIO A [...] Unavailable KIRA GARRISON Primary Care Physician Alejandra Hayden. Admitting Unavailable Rita Haydend A. Attending Unavailable Rita Haydend A. Attending Unavailable Rita Haydend A. Admitting Unavailable Kira Garrison MD Unavailable Unallocated , Noms Provider Primary Care Provi radha Sandra Castellanos DO Unavailable Alejandra Hayden A. Referring Unavailable Ji SIMON Attending Unavailable Teena Haydenamad A. Attending Unavailable Mokarmen Mohamad A. Referring Unavailable Jackelyn Mohamad A. Admitting Unavailable SANDRA CASTELLANOS Attending Unavailable KIRA GARRISON Referring Unavailable JAZLYN WILBURN Attending Unavailable GENOVEVA CARTAGENA Referring Unavailable JAZLYN WILBURN Attending Unavailable GENOVEVA CARTAGENA Referring Unavailable JAZLYN WILBURN Attending Unavailable AMADEO GENOVEVA C Referring Unavailable JAZLYN WILBURN Attending Unavailable AMADEO GENOVEVA C Referring Unavailable Ji SIMON Attending Unavailable Teena Haydenamad A. Admitting Unavailable Rita Haydend A. Attending Alejandra Peterson Referring Ji Rose Attending Ji Rose Attending Unavailable Ji SIMON Attending Unavailable González Sutton Attending González Scales Attending Ji Prescott Attending Unavailable Ji SIMON Attending Unavailable Ji SIMON Attending Unavailable Alejandra Hayden Admitting Unavailable Alejandra Hayden Attending Alejandra Peterson Attending Unavailable González Sutton Attending Graciela cortes Allergies Allergy Classification Reported Allergen(s) Allergy Type Date of Onset Reaction(s) Facility (5 sources) No Known Medication Allergies; Translations: [No Known Medication Allergies] Propensity to adverse reactions (disorder) [facility] Repository Medications Current Medications Medication Drug Class(es) Dates Sig (Normalized) Sig (Original) amylase 797749 unt / lipase 30124 unt / protease [id number] unt delayed release oral capsule (4 sources) Start: 07-17-2024 Creon 36,000 units oral delayed release capsule 2 cap(s), Oral, TID, 360 cap(s), Refill(s) 3, [facility], 170, cm, 07/17/24 13:04:00 EDT, Height/Length Dosing, 101, kg, 07/17/24 13:04:00 EDT, Weight Dosing Start Date: 07/17/24 Status: Ordered Quantity: 360.0 Unit: cap(s) Repeat number: 4 amylase 268736 UNT / lipase 57812 UNT / protease [id number] UNT Delayed Release Oral Capsule [Zenpep] (3 sources) Start: 04-30-2024 Zenpep 60,000 units-189,600 units-252,600 units oral delayed release capsule See Instructions, 300 cap(s), Refill(s) 3, Take 2 caps with each meal and 1 with each snack, [facility], 170, cm, 04/24/24 8:57:00 EST, Height/Length Dosing, 108.6, kg, 04/24/24 8:57:00 EST, Weight Dosing Start Date: 04/30/24 Status: Ordered cholecalciferol 0.05 mg oral capsule (7 sources) Vitamin D Start: 04-23-2024 take 1 capsule by mouth once daily cholecalciferol (Vitamin D-3) 50 MCG (1999 UT) capsule Take 2,000 Units by mouth Daily 04/23/2024 Active cholestyramine resin 4000 mg powder for oral suspension (20 sources) Bile Acid Sequestrant Start: 05-14-2024 take 4 g by mouth in the morning cholestyramine (Questran) 4 GM/DOSE powder Take 4 g by mouth in the morning and 4 g in the evening. Take with meals. 05/14/2024 Active Start: 05-14-2024 take 4 g by mouth twice daily cholestyramine 4 g/9 g Oral Pwdr 4 gm, Oral, BID, 378 gm, Refill(s) 11, [facility], 170, cm, 05/11/24 7:28:00 EST, Height/Length Dosing, 108.6, kg, 05/11/24 7:28:00 EST, Weight Dosing Start Date: 05/14/24 Status: Ordered Quantity: 378.0 Unit: g Repeat number: 12 Start: 04-24-2024 Questran 4 g/9 g oral powder = 1 packet(s), Oral, BID, # 60 EA, Refills(s) 0, Pharmacy: [facility], 170, cm, 04/24/24 8:57:00 EST, Height/Length Dosing, 108.6, kg, 04/24/24 8:57:00 EST, Weight Dosing Start Date: 04/24/24 Status: Ordered Quantity: 60.0 Unit: EA Repeat number: 1 Indications: Melena; Irritable bowel syndrome with diarrhea; Abdominal distension (gaseous); Gastro-esophageal reflux disease without esophagitis; Fish Oils (4 sources) Start: 08-16-2024 Fish Oil Oral, Refill(s) 0 Start Date: 08/16/24 Status: Ordered Repeat number: 1 FLUoxetine 20 mg oral capsule (18 sources) Serotonin Reuptake Inhibitor Start: 05-14-2024 take 1 capsule by mouth once daily FLUoxetine (PROzac) 20 MG capsule Take 20 mg by mouth Daily 05/14/2024 Active Start: 04-24-2024 take 20 mg by mouth once daily Prozac 20 mg, Oral, Daily, Refills(s) 0, Depression Start Date: 04/24/24 Status: Ordered Repeat number: 1 icosapent ethyl 1000 mg oral capsule (18 sources) Start: 04-24-2024 take 1 capsule by [...] evening. Take with meals. 04/20/2024 Active levothyroxine (18 sources) l-Thyroxine Start: 04-24-2024 levothyroxine Daily, Refills(s) 0, Thyroid Start Date: 04/24/24 Status: Ordered Repeat number: 1 Start: 04-24-2024 levothyroxine Daily, Refills(s) 0, Thyroid Start Date: 04/24/24 Status: Ordered Start: 04-24-2024 levothyroxine Daily, Refills(s) 0 Start Date: 04/24/24 Status: Ordered Start: 04-11-2024 take 1 tablet by [facility] once daily levothyroxine (Synthroid, Levoxyl) 50 MCG tablet Take 50 mcg by mouth Daily 04/11/2024 Active meloxicam 15 mg oral tablet (7 sources) Nonsteroidal Anti-inflammatory Drug Start: 05-14-2024 take 1 tablet by mouth once daily Mobic 15 MG tablet Take 15 mg by mouth 1 (one) time each day at the same time 05/14/2024 Active omeprazole 40 mg delayed release oral capsule (13 sources) Proton Pump Inhibitor Start: 05-11-2024 take 1 capsule by mouth twice daily omeprazole 40 mg Cap-DR 40 mg = 1 cap(s), Oral, BID, # 180 cap(s), Refills(s) 3, Pharmacy: [facility], 170, cm, 05/11/24 7:28:00 EST, Height/Length Dosing, 108.6, kg, 05/11/24 7:28:00 EST, Weight Dosing Start Date: 05/11/24 Status: Ordered Quantity: 180.0 Unit: cap(s) Repeat number: 4 60 actuat testosterone 20.25 mg/actuat topical gel (2 sources) Androgen Start: 05-07-2024 AndroGel Pump 20.25 mg/1.25 g (1.62%) transdermal gel = 2 pump, Topical, qAM, # 75 gram, Refills(s) 3, Pharmacy: [facility], 165, cm, 05/07/24 9:19:00 EST, Height/Length Dosing, 108.1, kg, 05/07/24 9:19:00 EST, Weight Dosing Start Date: 05/07/24 Status: Ordered testosterone cypionate 200 mg/mL IM Claribel (1 source) Start: 11-12-2024 testosterone cypionate 200 mg/mL IM Claribel 400 mg, IntraMuscular, q4wk, # 10 mL, Refills(s) 3, Pharmacy: [facility], 165, cm, 09/10/24 15:33:00 EDT, Height/Length Dosing, 108, kg, 09/10/24 15:33:00 EDT, Weight Dosing Start Date: 11/12/24 Status: Ordered Quantity: 10.0 Unit: mL Repeat number: 4 Indications: Testicular hypofunction; Vitamin D3 50 mcg (2000 intl units) oral tablet, chewable (11 sources) Start: 04-24-2024 take 1 tablet by [...] Sig (Original) tadalafil 20 mg oral tablet (7 sources) Phosphodiesterase 5 Inhibitor Start: 09-10-2024 take [...] hours., # 30 tab(s), Refills(s) 0, Pharmacy: [facility], 165, cm, 09/10/24 15:33:00 EDT, Height/Length [...] hours., # 30 tab(s), Refills(s) 0, Pharmacy: [facility], 165, cm, 05/07/24 9:19:00 EST, Height/Length Dosing, 108.1, kg, 05/07/24 9:19:00 EST, Weight Dosing Start Date: 05/07/24 Status: Ordered Problems Problem Classification Problem Date Documented Da te Episodic/Chronic Deficiency and other anemia (11 sources) Anemia of chronic disease 04-24-2024 Chronic Disorders of lipid metabolism (12 sources) Pure hyperglyceridemia; Translations: [Pure hyperglyceridemia] Onset: 5 Chronic Esophageal disorders (13 sources) Gastroesophageal reflux disease without esophagitis; Translations: [Gastro-esophageal reflux disease without esophagitis] Onset: 5 Chronic Essential hypertension (11 sources) Benign hypertension 04-24-2024 Chronic Gastrointestinal hemorrhage (6 sources) Melena; Translations: [Melena] Onset: 5 Episodic Hyperplasia of prostate (9 sources) Benign prostatic hypertrophy with outflow obstruction; Translations: [Benign prostatic hyperplasia with lower urinary tract symptoms] Onset: 5 Chronic Malaise and fatigue (4 sources) Other fatigue; Translations: [OTHER FATIGUE] Onset: 8 Episodic Miscellaneous mental health disorders (20 sources) Psychosomatic factor in physical condition; Translations: [Psychological and behavioral factors associated with disorders or diseases classified elsewhere] Onset: 5 Chronic Other and unspecified benign neoplasm (6 sources) Polyp of colon; Translations: [Polyp of colon] Onset: 5 Episodic Other connective tissue disease (13 sources) Swelling of hand; Translations: [Other specified soft tissue disorders] Onset: 5 05-15-2024 Episodic Other connective tissue disease (2 sources) Neuralgia; Translations: [Neuralgia and neuritis, unspecified] 05-17-2024 Episodic Other endocrine disorders (2 sources) Testicular hypofunction; Translations: [Testicular hypofunction] Onset: 5 Chronic Other endocrine disorders (7 sources) Male hypogonadism 05-07-2024 Chronic Other gastrointestinal disorders (7 sources) Irritable bowel syndrome with diarrhea; Translations: [Irritable bowel syndrome with diarrhea] Onset: 5 Chronic Other gastrointestinal disorders (2 sources) Swollen abdomen; Translations: [Abdominal distension (gaseous)] Onset: 5 Episodic Other gastrointestinal disorders (11 sources) Abdominal bloating 04-24-2024 Episodic Other gastrointestinal disorders (11 sources) Black feces 04-24-2024 Episodic Other liver diseases (6 sources) Steatosis of liver; Translations: [Fatty (change of) liver, not elsewhere classified] Onset: 5 Chronic Other male genital disorders (8 sources) Acquired buried penis; 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] Onset: 5 Chronic Other male genital disorders (9 sources) Male erectile dysfunction, unspecified; Translations: [Erectile dysfunction] Onset: 5 Chronic Other non-traumatic joint disorders (13 sources) Stiffness of joint of right hand; Translations: [Stiffness of right hand, not elsewhere classified] Onset: 5 05-15-2024 Episodic Other nutritional; endocrine; and metabolic disorders (1 source) Obesity; Translations: [Other obesity due to excess calories] Onset: 5 Chronic Other nutritional; endocrine; and metabolic disorders (11 sources) Obesity caused by energy imbalance 04-24-2024 Chronic Other screening for suspected conditions (not mental disorders or infectious disease) (14 sources) Encounter for screening for malignant neoplasm [...] status; Translations: [Other specified health status] Onset: Episodic Residual codes; unclassified (11 sources) Current drinker 04-24-2024 Episodic Thyroid disorders (5 sources) Hypothyroidism, unspecified; Translations: [HYPOTHYROIDISM UNSPECIFIED] Onset: 8 Chronic Unclassified (7 sources) Patient encounter status 05-07-2024 Results Test Name Value Interpretation Reference Range Facility Reminderson 11-13-2024 Reminders Reminders From: Gina Barbosa To: Cheryl Christian; Gina Barbosa; Sent: 10/16/2024 15:02:54 EDT Show up: 11/12/2024 15:02:00 EDT Subject: Fibroscan & EGD Due Date/Time: 11/26/2024 15:02:00 EDT Reminder/Recall Addendum by Gina Barbosa on October 16, 2024 14:53 EDT (Verified) Per patient he only needs to have EGD & Fibro done. I looked at colon report & it says to repeat in 5 years. He is okay to wait to be able to do both of them together. Addendum by Gina Barbosa on August 21, 2024 7:03 EDT (Verified) Patient is also due for EGD. Please schedule all 3 procedures at the same time. From: Gina Barbosa To: [facility] - Reminders/Recalls; Sent: 08/20/2024 17:06:58 EDT Subject: Fibro/ Colon Caller Name: TATE ENCARNACION; Caller Number: Rafael , Kenny Patient is to have a colon & Fibro in 3 months when they can have both procedures together. Attempted to contact patient to schedule EGD and Fibro. Only available time for that during our training would be fibro at 12:30 and Egd at 1:00. Left message asking patient to call back to schedule. Normal [facility] Ambulatory Visit Summaryon 0 10-15-2024 Ambulatory Visit Summary Ambulatory Visit Summary TATE [...] signed up for this yet, please contact [place] at [phone] to get signed up today. Language Information Language assistance services are available as needed. Eric [facility] Ambulatory Visit Summaryon 0 09-14-2024 Ambulatory Visit [...] for choosing us for your care. Normal [facility] Ambulatory Visit Summaryon 0 09-10-2024 Ambulatory [...] acids (Fish Oil) omeprazole (omeprazole 40 mg Cap-) pancrelipase (Creon 36,000 units oral delayed release capsule) Procedures Performed Colonoscopy (05/11/2024), Esophagogastroduodenoscopy (05/11/2024). Discharge Vitals Temperature (Temporal Artery) 37 ???C Heart Rate (Peripheral) 69 Respiratory Rate 18 Blood Pressure 135/87 Height 165 cm Height 65 in Weight 108 kg Weight 238.099 lb BMI 39.67 What to do next You Need to Schedule the Following Appointments Follow Up with AURORA ROMERO, Ji Be, UREvelia When: Comments: 4 mos w/ T level Where: [facility] [address], [place] [address] [phone] Medications What How Much When Why Instructions Unchanged tadalafil (tadalafil 20 mg Tab) 1 Tablets By Mouth As Directed as needed for for erectile dysfunction ED (erectile dysfunction) Pt to take one tab 1 hour prior to sexual activity. Do not exceed 20mg in 24 hours. Pickup at [facility] Unchanged cholecalciferol (Vitamin D3 50 mcg [...] physician if questions or concerns Pharmacy Information [facility]: [address] [place] [phone] Allergies No Known Allergies No Known Medication [...] less testosteron (more content not included)... Normal [facility] Urology Office/Clinic Noteon 09-10-2024 Urology Office/Clinic [...] [phone]): 04/24/24 - 194 08/11/22 - Recent T level is low. States he [...] -Cont Cialis wo changes. Refills sent to [facility]. 3. BPH with urinary obstruction (N40.1: [...] Be, URL [facility] [address], [place] [address]- [phone] Additional Instructions: 4 mos w/ T level Patient Education Hypogonadism, Male I, Nirmala Lama, personally scribed for Dr. Simon on 09/10/2024 16:16:02. . Documentation recorded by the scribNirmala rocha, accurately reflects the services(s) I performed and [...] Oral, Daily Von (more content not included)... [facility] Comment on above: Result Comment: Elec tronically Signed By: AURORA ROMERO, Ji Be\.br\Date and Time Signed: 09/10/24 16:19 EDT\.br\Electronically Co-Signed By: Nirmala Lama.br\Date and Time Co-Signed: 09/10/24 16:16 EDT Reminderson [...] schedule all three at the same time. [facility] Gastroenterology Office/Clin ic Noteon 08-16-2024 Gastroenterology Office/Clinic [...] first-degree relative, we will send him to [facility] for genetic counseling the based on [...] inactivated - Not Given Patient Refuses Normal [facility] Comment on above: Result Comment: [...] ROMERO, Ji Be Where: [facility] [address] Medications What How Much When Why Instructions Changed pancrelipase (Creon 36,000 units oral delayed release capsule) 2 Capsules By Mouth 3 times a day Pickup at [facility] Unchanged cholecalciferol (Vitamin D3 50 mcg [...] physician if questions or concerns Pharmacy Information [facility]: [address] [place] [phone] Allergies No Known Allergies No Known Medication [...] choosing us for your care. Normal [facility] Gastroenterology Office/Clin ic Noteon 07-17-2024 Gastroenterology Office/Clinic [...] With When Contact Information Lesley ROMERO, González Cadena [facility], [facility] In 6 weeks [address] [facility], [address] [phone] Additional Instructions: Problem List/Past Medical History Ongoing [...] inactivated - Not Given Patient Refuses Normal [facility] Comment on above: Result Comment: Elec tronically Signed By: González Sutton MD\.br\Date and Time Signed: 07/17/24 13:53 EDT\.br\Electronically Co-Signed By: Syeda Chavez MA\.br\Date and Time Co-Signed: 07/17/24 13:51 EDT Reminderson 06-05-2024 Reminders Reminders From: Glo Hilario I To: [facility] - Reminders/Recalls; Sent: 06/05/2024 08:25:46 EST Show up: 03/11/2031 08:25:00 EST Subject: Colonoscopy recall Due Date/Time: 05/11/2031 08:25:00 EST Reminder/Recall [address] Sutton 05/11/24 Normal [facility] Gastroenterology Office/Clin ic Noteon 05-21-2024 Gastroenterology Office/Clinic Note Gastroenterology Office/Clinic Note Chief Complaint follow up to egd/colonoscopy HPI Staff Established patient is a(n) 53 year old male who presents today for a follow up to EGD & Colonoscopy on 05/11/24. Pt previously seen with Dr. Hayden, but insurance was denying EGD/Colon stating he was out of network for [facility]. Pt was r/s with Dr. Sutton. Fecal [...] recorded by (more content not included)... Normal [facility] Comment on above: Result Comment: Elec tronically Signed By: González Sutton MD\.br\Date and Time Signed: 05/21/24 09:44 EST\.br\Electronically Co-Signed By: Syeda Chavez MA\.br\Date and Time Co-Signed: 05/21/24 09:42 EST Surgical Pathology Reporton 05-17-2024 Surgical Pathology Report [facility] [address] [facility] [place] [address]- Surgical Pathology Report Collected Date/Time: 05/11/2024 08:38 [...] recognition technology and might contain unintended computerized garment steamer errors. The use of one or more reagents in the above tests is regulated as an analyte specific reagent (ASR). The test or tests are ordered following initial H&E microscopic examination. The performance characteristics were determined by the [facility] Surgical Pathology. They have not been cleared or approved by the US Food and Drug Administration. The FDA has determined that such clearance or approval is not necessary. These tests are used for clinical purposes. They should not be regarded as investigational or for research. Appropriate positive and negative co (more content not included)... Normal [facility] Comment on above: Performed By: #### [id number] #### [facility] [address] [place] [address] Discharge Instructionson Discharge Instructions Discharge Instructions TATE [...] EST With: Lesley ROMERO, González Cadena Where: [facility] [address] [place] [phone]- Tuesday 9:45 AM EDT With: Ji SIMON MD Where: [facility] [address] [facility] [place] [address]- Medications What How Much When Why Instructions Next Dose New omeprazole (omeprazole 40 mg Cap-DR) 1 Capsules By Mouth 2 times a day Refills: 3 Pickup at [facility] Unchanged cholecalciferol (Vitamin D3 50 mcg [...] a day (in the morning) Pharmacy Information [facility]: [address] [place], [place] [phone] Test Results No qualifying data available. Allergies [...] tarry stool (more content not included)... Normal [facility] Comment on above: Result Comment: [...] EST With: Lesley ROMERO, González Cadena Where: [facility] [address] [place] [phone]- Tuesday. 2024 9:45 AM EDT With: AURORA ROMERO, Ji Be Where: [facility] [address] [facility] [place] [address] [place] [address]- Medications What How Much When Why Instructions Next Dose New omeprazole (omeprazole 40 mg Cap-DR) 1 Capsules By Mouth 2 times a day Refills: 3 Pickup at [facility] Unchanged cholecalciferol (Vitamin D3 50 mcg [...] a day (in the morning) Pharmacy Information [facility]: [address] [place], [place] [phone] Test Results No qualifying data available. Allergies [...] malt extra (more content not included)... Normal [facility] Comment on above: Result Comment: Elec tronically Signed By: Cy SADLER, Mariama\.jeaneth\Date and Time Signed: 05/11/24 09:30 EST Main OR Intraoperative Recor don 05-11-2024 Main OR Intraoperative Record Main OR Intraoperative Record IntraOp Document Type FT Summary Primary Physician: González Sutton MD Finalized Date/Time: 05/11/24 10:41:05 Pt. Name: TATE ENCARNACION/Sex: 1970 Male Med Rec #: [id number] Physician: Alejandra Hayden MD Financial #: [id number] Pt. Type: O Room/Bed: / Admit/Disch: 05/11/24 [...] Negrete RN, Sheldon Martines Role Performed Anesthesiologist Coffee Shop Attendant - Primary Scrub - Primary Us Administrative Law Judge Time In 05/11/24 08:30:00 05/11/24 08:30:00 05/11/24 [...] and tissue Entry 1 Skin Integrity Intact, [place], Warm, & Skin Abnormality No Dry Outcomes Met? Yes Last Modified By: Becky Negrete RN 05/11/24 09:06:34 Post-Care Text: The patient is free from signs and sym (more content not included)... Normal [facility] Main OR PACU II Recordon Main OR PACU II Record Main OR PACU II Record PACU Phase II Document Type FT Summary Primary Physician: González Sutton MD Finalized Date/Time: 05/11/24 10:02:45 Pt. Name: SHASHANK TATE Wai/Sex: 1970 Male Med Rec #: [id number] Physician: Jackelyn ROMERO, Alejandra Kelly Financial #: [id number] Pt. Type: O Room/Bed: / Admit/Disch: 05/11/24 [...] Signed By: Mariama Benoit RN 05/11/24 10:02 [facility] Main OR Preoperative Recordo n 05-11-2024 Main OR Preoperative Record Main OR Preoperative Record Holding Area Document Type FT Summary Primary Physician: González Sutton MD Finalized Date/Time: 05/11/24 07:18:36 Pt. Name: SHASHANKTATE/Sex: 1970 Male Med Rec #: [id number] Physician: Alejandra Hayden MD Financial #: [id number] Pt. Type: O Room/Bed: / Admit/Disch: 05/11/24 [...] By: Rachel Cortez RN 05/11/24 07:18 Normal [facility] Ambulatory Visit Summaryon 0 05-07-2024 Ambulatory [...] Appointments Tuesday 8:15 AM EST With: Where: [facility] Tuesday 9:00 AM EST With: Lesley ROMERO, González Cadena Where: [facility] [address] [facility] [address] [place] [phone]- Tuesday. 2024 9:45 AM EDT With: Ji SIMON MD Where: [facility] [address] [place] [address]- You Need to Schedule the Following Appointments Follow Up with AURORA ROMERO, Ji Be, URL When: Comments: 4 mos w/ PSA and T level Where: [facility] [address], [place] [phone] Medications What How Much When Why Instructions New tadalafil (tadalafil 20 mg Tab) 1 Tablets By Mouth As Directed as needed for for erectile dysfunction Pt to take one tab 1 hour prior to sexual activity. Do not exceed 20mg in 24 hours. Pickup at [facility] New testosterone (AndroGel Pump 20.25 mg/ 1.25 g (1.62%) transdermal gel) 2 Pump Topical Once a day (in the morning) Refills: 3 Pickup at [facility] Unchanged cholecalciferol (Vitamin D3 50 mcg [...] physician if questions or concerns Pharmacy Information [facility]: [address] [place] [place] [phone] Allergies No Known Allergies No Known Medication [...] gives men (more content not included)... Normal [facility] Urology Office/Clinic Noteon 05-07-2024 Urology Office/Clinic Note Urology Office/Clinic Note Chief Complaint New patient HPI Staff 53yr old male referred by Dr. Hayden for decreased sexual desire for the last few months. 04/24/24 Testosterone total: 194 SANRDA: 13, IPSS: 8 Dysuria: denies Incomplete bladder [...] -Start Cialis 20mg prn. Rx sent to [facility]. Recommended GoodRx. 2. Hypogonadism male (E29.1: Testicular [...] Androgel 2 pumps daily. Rx sent to [facility]. Recommended [facility]. -F/u in 4 mos [...] buried peni (more content not included)... Normal [facility] Comment on above: Result Comment: Elec tronically Signed By: Ji SIMON MD\.br\Date and Time Signed: 05/07/24 10:05 EST\.br\Electronically Co-Signed By: Nirmala Lama.jeaneth\Date and Time Co-Signed: 05/07/24 09:58 EST Calprotectin, Fecalon 2024 Calprotectin (Stl) [Mass/Mass] 15 mcg/gm Invalid Interpretation Code 0-120 [facility] Comment on above: Result Comment: Conc entration Interpretation Follow-Up < 5 - 50 ug/g Normal None >50 -120 ug/g Borderline Re-evaluate in 4-6 weeks >120 ug/g Abnormal Repeat as clinically indicated Performed at: [facility] [address] [place], [place] [id number] MD Alfredo Green Performed By: #### 1 [id number] #### [facility] [address] [place] [address] Pancreatic Elastase, Fecalon 04-28-2024 Elastase.pancreatic (Stl) [Mass/Mass] 9 Low >200 [facility] Comment on above: Result Comment: Nicole re Pancreatic Insufficiency: <100 Moderate Pancreatic Insufficiency: 100 - 200 Normal: >200 [facility]: [facility] [address] [place], [place] [id number] MD Alfredo Green Performed By: #### 1 [id number] ####[facility] [address] [place] [address] US Abdomen, Limitedon 2024 US Abdomen, Limited [...] Rooney MD Transcribed by: MARIA C Technologist: AD, Normal [facility] Celiac Disease Comprehensive on 04-25-2024 Endomysium IgA Ql (S) Negative Invalid Interpretation Code Negative [facility] Comment on above: Result Comment: Seru m is slightly lipemic. Performed By: #### 1 [id number] #### [facility] [address] [place] [address] Gliadin peptide IgA Qn (S) 4 unit(s) Invalid Interpretation Code 0-19 [facility] Comment on above: Result Comment: Nega tive 0 - 19 Weak Positive 20 - 30 Moderate to Strong Positive >30 Performed By: #### 1 [id number] #### [facility] [address] [place] [address] Gliadin peptide IgG Qn (S) 2 unit(s) Invalid Interpretation Code 0-19 [facility] Comment on above: Result Comment: Nega tive 0 - 19 Weak Positive 20 - 30 Moderate to Strong Positive >30 Performed By: #### 1 [id number] #### [facility] [address] [place] [address] IgA [Mass/Vol] 213 mg/dL Invalid Interpretation Code 90-386 [facility] Comment on above: Result Comment: Perf ormed at: [facility] [address] [id number] PhD Franklin Pollard Performed By: #### 1 [id number] #### [facility] [address] [place] [address] tTG IgA Qn (S) <2 Invalid Interpretation Code 0-3 [facility] Comment on above: Result Comment: Nega tive 0 - 3 Weak Positive 4 - 10 Positive >10 Tissue Transglutaminase (tTG) has been identified as the endomysial antigen. Studies have demonstr- ated that endomysial IgA antibodies have over 99% specificity for gluten sensitive enteropathy. Performed By: #### 1 [id number] #### [facility] [address] [place] [address] tTG IgG Qn (S) <2 Invalid Interpretation Code 0-5 [facility] Comment on above: Result Comment: Nega tive 0 - 5 Weak Positive 6 - 9 Positive >9 Performed By: #### 1 [id number] #### [facility] [address] [place] [address] Testost Totalon 04-25-2024 Testosterone [Mass/Vol] 194 ng/dL Low 264-916 [facility] Comment on above: Result Comment: Adul t male reference interval is based on a population of healthy nonobese males (BMI <30) between 19 and 39 years old. Mildred, et.al. JCEM 2017,102;8728-4974. PMID: [id number]. Performed at: [facility] [id number] PhD Franklin Pollard Performed By: #### 2 [id number] #### [facility] [address] [place] [address] Ambulatory Visit Summaryon 0 04-24-2024 Ambulatory Visit [...] EST With: Jackelyn ROMERO, Alejandra Kelly Where: [facility] [address] [facility] [address] [place] [address]- You Need to Complete the Following C-Reactive [...] Chronic GERD Decreased sexual desire, pp_set_radiology_subspecialty , [place] Medications What How Much When Why Instructions New cholestyramine (Questran 4 g/ 9 g oral powder) 1 Packets By Mouth 2 times a day Irritable bowel syndrome with diarrhea Bloating Black stool Chronic GERD Pickup at [facility] Unchanged cholecalciferol (Vitamin D3 50 mcg [...] physician if questions or concerns Pharmacy Information [facility]: [address] [place], [place] [id number] [phone] Medications and Immunizations Administered Not Given influenza [...] for choosing us for your care. Normal [facility] CHEMISTRYOrdered By: SYSTEM SYSTEM on 04-24-2024 CRP [Mass/Vol] 0.2 mg/dL Normal <=1.9mg/dL Remisol Chem CRPon 04-24-2024 CRP [Mass/Vol] 0.2 mg/dL Normal <=1.9 [facility] Comment on above: Performed By: #### 2 [id number] #### [facility] [address] [place] [address] Gastroenterology Office/Clin ic Noteon 04-24-2024 Gastroenterology Office/Clinic [...] BID, # 60 EA, Refills(s) 0, Pharmacy: [facility], 170, cm, 04/24/24 8:57:00 EST, Height/Length Dosing, 108.6, kg, 04/24/24 8:57:00 EST, Weight Dosing C-Reactive Protein Calprotectin, Fecal Celiac Disease Comprehensive Colonoscopy (Hospital Procedure) EGD Endoscopy (Hospital Procedure) IgA, Quant. Pancreatic Elastase, Fecal Pancreatic Elastase, Fecal Testosterone Level Total US Abdomen, Limited 2. Bloating (R14.0: Abdominal distension (gaseous)) Ordered: cholestyramine, = 1 packet(s), Oral, BID, # 60 EA, Refills(s) 0, Pharmacy: [facility], 170, cm, 04/24/24 8:57:00 EST, Height/Length Dosing, 108.6, kg, 04/24/24 8:57:00 EST, Weight Dosing C-Reactive Protein Calprotectin, Fecal Celiac Disease Comprehensive Colonoscopy (Hospital Procedure) EGD Endoscopy (Hospital Procedure) IgA, Quant. Pancreatic Elastase, Fecal Pancreatic Elastase, Fecal Testosterone Level Total US Abdomen, Limited 3. Black stool (K92.1: Melena) Ordered: cholestyramine, = 1 packet(s), Oral, BID, # 60 EA, Refills(s) 0, Pharmacy: [facility], 170, cm, 04/24/24 8:57:00 EST, [...] BID, # 60 EA, Refills(s) 0, Pharmacy: [facility], 170, cm, 04/24/24 8:57:00 EST, Height/Length Dosing, 108.6, kg, 04/24/24 8:57:00 EST, Weight Dosing C-Reactive Protein Calprotectin, Fecal Celiac Disease Comprehensive Colonoscopy (Hospital Procedure) EGD Endoscopy (Hospital Procedure) IgA, Quant. Pancreatic Elastase, Fecal Pancreatic Elastase, Fecal Testosterone Level Total US Abdomen, Limited 5. Decreased sexual desire (F52.0: Hypoactive sexual desire disorder) Ordered: [facility] [place] Pancreatic Elastase, Fecal Testosterone Level Total US Abdomen, Limited 6. Alcohol drinker (Z78.9: Other specified health status) 7. Stress-related physiological response affecting medical condition (F54: Psychological and behavioral factors associated with disorders or diseases classified elsewhere) 8. High triglycerides (E78.1: Pure hyperglyceridemia) 9. Obesity due to excess calories (E66.09: Ot (more content not included)... Normal [facility] Comment on above: Result Comment: Elec tronically Signed By: Jackelyn ROMERO, Alejandra Kelly\.br\Date and Time Signed: 04/24/24 09:30 EST FREE T3on 03-15-2018 T3 free mass conc 3.10 pg/mL Normal 2.77-5.27 [facility] Comment on above: Performed By: #### B MP, LIVER, FT3, LIPID, PSASC, TSH, DLDL ####[facility] Ydekxc[address]ujp[address] [place] FREE T4on 03-15-2018 T4 free mass conc 0.88 ng/dL Normal 0.78-2.19 [facility] Comment on above: Performed By: #### B MP, LIVER, FT3, LIPID, PSASC, TSH, DLDL ####[facility] Flzmdgouva17[address] [place] TSHon 03-15-2018 Thyrotropin Qn 7.705 uIU/mL Critically high 0.470-4.680 [facility] Comment on above: Performed By: #### B MP, LIVER, FT3, LIPID, PSASC, TSH, DLDL ####[facility] Snoloaeoqv0005 [address] [place] Thyrotropin Qn SEE BELOW Normal [facility] Comment on above: Result Comment: <0.3 4 UIU/ml HYPERTHYROID 0.34-5.60 UIU/ml EUTHYROID >5.60 UIU/ml HYPOTHYROID Performed By: #### B MP, LIVER, FT3, LIPID, PSASC, TSH, DLDL ####[facility] Qnbqvndunt6238 [address] [place] TESTOSTERONE, TOTALon 2017 Testosterone [Mass/volume] in Serum or Plasma 314 ng/dL Normal 264-916 [facility] Comment on above: Result Comment: Adul t male reference interval is based on a population ofhealthy nonobese males (BMI <30) between 19 and 39 years old.Mildred, et.al. JCEM 2017,102;5537-3923. PMID: [id number]. Performed By: #### B MP, LIVER, FT3, LIPID, PSASC, TSH, DLDL ####[facility] Tyoiicdgeu1796 [address] [place] FREE T3on 01-02-2018 T3 free mass conc 2.98 pg/mL Normal 2.77-5.27 [facility] Comment on above: Performed By: #### B MP, LIVER, FT3, LIPID, PSASC, TSH, DLDL ####[facility] Sftcwsoiiv9917 [address] [place] FREE T4on 01-02-2018 T4 free mass conc 0.89 ng/dL Normal 0.78-2.19 [facility] Comment on above: Performed By: #### B MP, LIVER, FT3, LIPID, PSASC, TSH, DLDL ####[facility] Ftxeiwitgg4745 [address] [place] TSHon 01-02-2018 Thyrotropin Qn 5.999 uIU/mL Critically high 0.470-4.680 [facility] Comment on above: Performed By: #### B MP, LIVER, FT3, LIPID, PSASC, TSH, DLDL ####[facility] [address] [place] [address] [place] Thyrotropin Qn SEE BELOW Normal [facility] Comment on above: Result Comment: <0.3 4 UIU/ml HYPERTHYROID 0.34-5.60 UIU/ml EUTHYROID >5.60 UIU/ml HYPOTHYROID Performed By: #### B MP, LIVER, FT3, LIPID, PSASC, TSH, DLDL ####[facility] [address] [place] [address] [place] CBC AUTO DIFFon 09-14-2017 Basophils Auto #/vol (Bld) 0.1 103/ul Normal 0.0-0.1 [facility] Comment on above: Performed By: #### C BC ####[facility] [address] [place] [address] [place] Basophils/100 WBC Auto (Bld) 0.8 % Normal 0.2-2.0 [facility] Comment on above: Performed By: #### C BC ####[facility] [address] [place] [address] [place] Eosinophils Auto #/vol (Bld) 0.1 103/ul Normal 0.0-0.7 [facility] Comment on above: Performed By: #### C BC ####[facility] [address] [place], [place] [address]Dvznji [place] Eosinophils/100 WBC Auto (Bld) 1.4 % Normal 0.9-7.0 [facility] Comment on above: Performed By: #### C BC ####[facility] [address] [place] [address]Moiinx [place] Erythrocyte distribution width Auto Ratio (RBC) 13.2 % Normal 11.0-15.0 [facility] Comment on above: Performed By: #### C BC ####[facility] [address] [place] [address]Fiyooi [place] Hematocrit Auto Volume Fraction (Bld) 43.7 % Normal 42.0-54.0 [facility] Comment on above: Performed By: #### C BC ####[facility] [address] [place], [place] [address]Gerken [place] Hemoglobin mass conc (Bld) 15.2 g/dL Normal 14.0-18.0 [facility] Comment on above: Performed By: #### C BC ####[facility] Qtjuvqxtol[address] [place], [place] [address]Gerken [place] IG # 0.05 10e3/ul Critically high 0.00-0.03 [facility] Comment on above: Performed By: #### C BC ####[facility] Y[address]vdks[address] [place], [place] [address]Gerken [place] IG % 0.7 % Critically high 0.0-0.5 [facility] Comment on above: Performed By: #### C BC ####[facility] W[address]ib[address]ce[address] [place], [place] [address]Gerken [place] Lymphocytes Auto #/vol (Bld) 1.7 103/ul Normal 1.2-3.8 [facility] Comment on above: Performed By: #### C BC ####[facility] T[address] [place], [place] [address]Gerken [place] Lymphocytes/100 WBC Auto (Bld) 23.7 % Normal 20.5-60.0 [facility] Comment on above: Performed By: #### C BC ####[facility] [address] [place] [id number] [place] MANUAL DIFF REQ NO Normal [facility] Comment on above: Performed By: #### C BC ####[facility] [address]ks[address] [place], [place] [address]Gerken [place] MCH Auto Entitic mass (RBC) 33.8 pg Normal 25.9-34.0 [facility] Comment on above: Performed By: #### C BC ####[facility] Uvmbykskhv[address] [place], [place] [address]Gerken [place] MCHC Auto mass conc (RBC) 34.8 g/dL Normal 29.9-35.2 [facility] Comment on above: Performed By: #### C BC ####[facility] [address]vpofpnjn[address] [place], [place] [address]Gerken [place] MCV Auto Entitic volume (RBC) 97.1 fL Critically high 80.0-94.0 [facility] Comment on above: Performed By: #### C BC ####[facility] [address]mot[address]dt[address] [place], [place] [address]Gerken [place] Monocytes Auto #/vol (Bld) 0.5 103/ul Normal 0.3-0.8 [facility] Comment on above: Performed By: #### C BC ####[facility] [address]vas[address] [place], [place] [address]Gerken [place] Monocytes/100 WBC Auto (Bld) 7.0 % Normal 1.7-12.0 [facility] Comment on above: Performed By: #### C BC ####[facility] Tnlslxdink[address] [place], [place] [address]Gerken [place] Neutrophils Auto #/vol (Bld) 4.7 103/ul Normal 1.4-6.5 [facility] Comment on above: Performed By: #### C BC ####[facility] I[address]ylcjlaur[address] [place], [place] [address]Gerken [place] Neutrophils/100 WBC Auto (Bld) 66.4 % Normal 43.0-75.0 [facility] Comment on above: Performed By: #### C BC ####[facility] [address] [place] [id number] Colindres Platelet mean volume Auto Entitic volume (Bld) 10.7 fL Normal 9.5-13.5 [facility] Comment on above: Performed By: #### C BC ####[facility] Aqouivdbag[address] [place], [place] [address]Jbkzbl [place] Platelets Auto #/vol (Bld) 223 103/ul Normal 150-450 [facility] Comment on above: Performed By: #### C BC ####[facility] Diiyvbvpqs4768 [address] [place] RBC Auto #/vol (Bld) 4.50 106/ul Critically low 4.70-6.10 [facility] Comment on above: Performed By: #### C BC ####[facility] X[address] [place] [address] [place] WBC Auto #/vol (Bld) 7.1 103/ul Normal 4.0-11.0 [facility] Comment on above: Performed By: #### C BC ####[facility] [address] [place], [place] [address] Marrqouinen DIRECT LDLon 09-14-2017 Cholesterol in LDL mass conc SEE BELOW Normal [facility] Comment on above: Result Comment: <100 mg/dl OPTIMAL 100 - 129 mg/dl NEAR OR ABOVE OPTIMAL 130 - 159 mg/dl BORDERLINE HIGH 160 - 189 mg/dl HIGH >190 mg/dl VERY HIGH Performed By: #### B MP, LIVER, FT3, LIPID, PSASC, TSH, DLDL ####[facility] [address]ks[address]le[address] [place], [place] [address]Rzzbkk [place] Cholesterol in LDL mass conc 45 mg/dL Normal [facility] Comment on above: Performed By: #### B MP, LIVER, FT3, LIPID, PSASC, TSH, DLDL ####[facility] Hglnfidhve78[address] [place], [place] [address]Plklmo [place] FREE T3on 09-14-2017 T3 free mass conc 4.33 pg/mL Normal 2.77-5.27 [facility] Comment on above: Performed By: #### B MP, LIVER, FT3, LIPID, PSASC, TSH, DLDL ####[facility] Cjidqpvrbg[address] [place] FREE T4on 09-14-2017 T4 free mass conc 0.67 ng/dL Critically low 0.78-2.19 [facility] Comment on above: Performed By: #### F T4 ####[facility] Kuwjsmlvga5603 [address] [place] GLYCOHEMOGLOBIN A1Con 2017 Glucose mass conc 108 mg/dL Normal [facility] Comment on above: Performed By: #### A 1C ####[facility] [address] [place] [address] [place] Hemoglobin A1c/Hemoglobin.tota l mass fraction (Bld) 5.4 % Normal <=6.0 [facility] Comment on above: Performed By: #### A 1C ####[facility] [address] [place] [address] [place] LIPID PROFILEon 09-14-2017 CHOL-HDL RATIO NORM SEE BELOW Normal [facility] Comment on above: Result Comment: 3.3 - 4.4 LOW RISK 4.4 - 7.1 AVERAGE RISK 7.1 - 11.0 MODERATE RISK >11.0 HIGH RISK Performed By: #### B MP, LIVER, FT3, LIPID, PSASC, TSH, DLDL ####[facility] Dwqwdeekve3540 [address] [place] Cholesterol in HDL mass conc 34 mg/dL Normal [facility] Comment on above: Result Comment: A po sitive bias may be seen with a triglyceride level over 600 mg/dL Performed By: #### B MP, LIVER, FT3, LIPID, PSASC, TSH, DLDL ####[facility] Crxyajjgst4951 [address] [place] Cholesterol in HDL mass conc > or = 60 mg/dl - LOW CARDIOVASCULAR RISK <40 mg/dl - HIGH CARDIOVASCULAR RISK Normal [facility] Comment on above: Performed By: #### B MP, LIVER, FT3, LIPID, PSASC, TSH, DLDL ####[facility] Mnndzfqnam6313 [address] [place] Cholesterol mass conc 199 mg/dL Normal <=200 [facility] Comment on above: Performed By: #### B MP, LIVER, FT3, LIPID, PSASC, TSH, DLDL ####[facility] Feaxykyath1347 [address] [place] Cholesterol.total/C holesterol in HDL mass ratio 6.0 {ratio} Normal [facility] Comment on above: Performed By: #### B MP, LIVER, FT3, LIPID, PSASC, TSH, DLDL ####[facility] Qapnnjhdeg9931 [address] [place] Triglyceride mass conc 1177 mg/dL Critically high <=150 [facility] Comment on above: Performed By: #### B MP, LIVER, FT3, LIPID, PSASC, TSH, DLDL ####[facility] Rizxiaokqs3124 [address] [place] LIVER PROFILEon 09-14-2017 Albumin mass conc 4.6 g/dL Normal 3.5-5.0 [facility] Comment on above: Performed By: #### B MP, LIVER, FT3, LIPID, PSASC, TSH, DLDL ####[facility] Ofkxedagif6081 [address] [place] Albumin/Globulin mass ratio 1.5 {ratio} Normal [facility] Comment on above: Performed By: #### B MP, LIVER, FT3, LIPID, PSASC, TSH, DLDL ####[facility] Hiyuqjhgfb2710 [address] [place] ALP enzyme act/vol 66 U/L Normal 38-126 [facility] Comment on above: Performed By: #### B MP, LIVER, FT3, LIPID, PSASC, TSH, DLDL ####[facility] Taycjwiprj7457 [address] [place] ALT enzyme act/vol 66 U/L Normal 21-72 [facility] Comment on above: Performed By: #### B MP, LIVER, FT3, LIPID, PSASC, TSH, DLDL ####[facility] Wwjzcfmqui3766 [address] [place] AST enzyme act/vol 48 U/L Normal 17-59 [facility] Comment on above: Performed By: #### B MP, LIVER, FT3, LIPID, PSASC, TSH, DLDL ####[facility] Semdmyqcoa8846 [address] [place] BILI, CONJUGATED 0.0 mg/dL Normal 0.0-0.3 [facility] Comment on above: Performed By: #### B MP, LIVER, FT3, LIPID, PSASC, TSH, DLDL ####[facility] Zedfvrhuuy4781 [address] [place] Bilirubin Ql (U) 0.3 mg/dL Normal 0.2-1.3 [facility] Comment on above: Performed By: #### B MP, LIVER, FT3, LIPID, PSASC, TSH, DLDL ####[facility] Zzztgkzrcg0983 [address] [place] Globulin Calculated mass conc (S) 3.1 g/dL Normal [facility] Comment on above: Performed By: #### B MP, LIVER, FT3, LIPID, PSASC, TSH, DLDL ####[facility] Fhyuuenzed2354 [address] [place] Protein mass conc 7.7 g/dL Normal 6.1-8.2 [facility] Comment on above: Performed By: #### B MP, LIVER, FT3, LIPID, PSASC, TSH, DLDL ####[facility] Znajprnvmf9471 [address] [place] PROF CHEM 8 (BAS METB)on Anion gap 3 molar conc 10.0 mmol/L Normal [facility] Comment on above: Performed By: #### B MP, LIVER, FT3, LIPID, PSASC, TSH, DLDL ####[facility] Grglbiiudt4294 [address] [place] Calcium mass conc 9.6 mg/dL Normal 8.4-10.2 [facility] Comment on above: Performed By: #### B MP, LIVER, FT3, LIPID, PSASC, TSH, DLDL ####[facility] Kwufhfjodd7016 [address] [place] Chloride molar conc 104 mmol/L Normal 98-107 [facility] Comment on above: Performed By: #### B MP, LIVER, FT3, LIPID, PSASC, TSH, DLDL ####[facility] Nzfkxcjzmv5741 [address] [place] CO2 molar conc 25.0 mmol/L Normal 22.0-30.0 [facility] Comment on above: Performed By: #### B MP, LIVER, FT3, LIPID, PSASC, TSH, DLDL ####[facility] Tdbmhpooqo2740 [address] [place] Creatinine mass conc 0.96 mg/dL Normal 0.66-1.25 [facility] Comment on above: Performed By: #### B MP, LIVER, FT3, LIPID, PSASC, TSH, DLDL ####[facility] Cmowxaxoqh5016 [address] [place] EGFR-AF TURKS AND CAICOS ISLANDER >60 Normal >=60 [facility] Comment on above: Performed By: #### B MP, LIVER, FT3, LIPID, PSASC, TSH, DLDL ####[facility] Rmhywqigjq3891 [address] [place] EGFR-NON AF TURKS AND CAICOS ISLANDER >60 Normal >=60 [facility] Comment on above: Performed By: #### B MP, LIVER, FT3, LIPID, PSASC, TSH, DLDL ####[facility] Oopepoartk2008 [address] [place] Glucose mass conc 97 mg/dL Normal 74-106 [facility] Comment on above: Performed By: #### B MP, LIVER, FT3, LIPID, PSASC, TSH, DLDL ####[facility] Tqxibjrjwd8391 [address] [place] Potassium molar conc 4.2 mmol/L Normal 3.4-5.0 [facility] Comment on above: Performed By: #### B MP, LIVER, FT3, LIPID, PSASC, TSH, DLDL ####[facility] Kpbevtffaw0738 [address] [place] Sodium molar conc 135 mmol/L Critically low 137-145 [facility] Comment on above: Performed By: #### B MP, LIVER, FT3, LIPID, PSASC, TSH, DLDL ####[facility] Pmxsicktrg4371 [address] [place] Urea nitrogen mass conc 14.0 mg/dL Normal 9.0-20.0 [facility] Comment on above: Performed By: #### B MP, LIVER, FT3, LIPID, PSASC, TSH, DLDL ####[facility] Fnyradhbtl0269 [address] [place] Urea nitrogen/Creatinine mass ratio 14.8 mg/mg Normal [facility] Comment on above: Performed By: #### B MP, LIVER, FT3, LIPID, PSASC, TSH, DLDL ####[facility] Tefmyokbkq2222 [address] [place] TSHon 09-14-2017 Thyrotropin Qn SEE BELOW Normal [facility] Comment on above: Result Comment: <0.3 4 UIU/ml HYPERTHYROID 0.34-5.60 UIU/ml EUTHYROID >5.60 UIU/ml HYPOTHYROID Performed By: #### B MP, LIVER, FT3, LIPID, PSASC, TSH, DLDL ####[facility] Wyiftksrnz5274 [address] [place] Thyrotropin Qn 6.140 uIU/mL Critically high 0.470-4.[address] [facility] Comment on above: Performed By: #### B MP, LIVER, FT3, LIPID, PSASC, TSH, DLDL ####[facility] Szrkjbzcle3736 [address] [place] Vital Signs Date Time Vital Sign Value Performing Clinician Faci lity 05-21-2024 09:10-0500 Diastolic blood pressure 80 mm[Hg] Claudio Sarmini [facility] 05-21-2024 09:10-0500 Heart rate 66 /min Claudio Sarmini [facility] 05-21-2024 09:10-0500 Systolic blood pressure 138 mm[Hg] Claudio Sarmini [facility] 05-21-2024 09:08-0500 Blood Pressure Location Claudio Sarmini [facility] 05-21-2024 09:08-0500 Respiratory rate 14 /min Claudio Sarmini [facility] 05-17-2024 08:22-0500 Body height 165.1 cm Christopher Jasmin DO Work Phone: [facility] 05-17-2024 08:22-0500 Body mass index (BMI) [Ratio] 39.61 kg/m2 Christopher Jasmin DO Work Phone: [facility] 05-17-2024 08:22-0500 Body weight 107.96 kg Christopher Jasmin DO Work Phone: [facility] 05-17-2024 08:22-0500 Diastolic blood pressure 88 mm[Hg] Christopher Jasmin DO Work Phone: [facility] 05-17-2024 08:22-0500 Heart rate 74 /min Christopher Jasmin DO Work Phone: [facility] 05-17-2024 08:22-0500 Systolic blood pressure 138 mm[Hg] Christopher Jasmin DO Work Phone: [facility] 05-11-2024 09:40-0500 Diastolic blood pressure 77 mm[Hg] Alejandra Hayden [facility] 05-11-2024 09:40-0500 Heart rate 61 /min Mohamad Mouchli [facility] 05-11-2024 09:40-0500 Respiratory rate 13 /min Mohamad Mouchli [facility] 05-11-2024 09:40-0500 SaO2% (BldA) [Mass fraction] 94 % Mohamad Mouchli [facility] 05-11-2024 09:40-0500 Systolic blood pressure 140 mm[Hg] Mohamad Mouchli [facility] 05-11-2024 09:20-0500 Diastolic blood pressure 83 mm[Hg] Mohamad Mouchli [facility] 05-11-2024 09:20-0500 Heart rate 89 /min Mohamad Mouchli [facility] 05-11-2024 09:20-0500 Respiratory rate 22 /min Mohamad Mouchli [facility] 05-11-2024 09:20-0500 SaO2% (BldA) [Mass fraction] 94 % Mohamad Mouchli [facility] 05-11-2024 09:20-0500 Systolic blood pressure 145 mm[Hg] Mohamad Mouchli [facility] 05-11-2024 09:15-0500 Diastolic blood pressure 79 mm[Hg] Mohamad Mouchli [facility] 05-11-2024 09:15-0500 Heart rate 90 /min Mohamad Mouchli [facility] 05-11-2024 09:15-0500 Respiratory rate 13 /min Mohamad Mouchli [facility] 05-11-2024 09:15-0500 SaO2% (BldA) [Mass fraction] 98 % Mohamad Mouchli [facility] 05-11-2024 09:15-0500 Systolic blood pressure 126 mm[Hg] Mohamad Mouchli [facility] 05-11-2024 09:10-0500 Body temperature 98.42 [degF] Mohamad Mouchli [facility] 05-11-2024 09:05-0500 Respiratory rate 14 /min Mohamad Mouchli [facility] 05-11-2024 08:55-0500 Respiratory rate 22 /min Mohamad Mouchli [facility] 05-11-2024 07:28-0500 Blood Pressure Location Mohamad Mouchli [facility] 05-11-2024 07:28-0500 Body temperature 97.88 [degF] Mohamad Mouchli [facility] 05-07-2024 09:34-0500 Diastolic blood pressure 82 mm[Hg] Ji SIMON [facility] 05-07-2024 09:34-0500 Mean blood pressure 109 mm[Hg] Ji SIMON [facility] 05-07-2024 09:34-0500 Systolic blood pressure 164 mm[Hg] Ji SIMON [facility] 05-07-2024 09:11-0500 Diastolic blood pressure 86 mm[Hg] Ji SIMON [facility] 05-07-2024 09:11-0500 Heart rate 74 /min Jivianney SIMON [facility] 05-07-2024 09:11-0500 Respiratory rate 16 /min Ji SIMON [facility] 05-07-2024 09:11-0500 Systolic blood pressure 168 mm[Hg] Ji SIMON [facility] 04-24-2024 08:57-0500 Blood Pressure Location CABIRI - [employer]ya [employer] [facility] 04-24-2024 08:57-0500 Diastolic blood pressure 80 mm[Hg] TeenaSwyft Mediamariya [employer]en [facility] 04-24-2024 08:57-0500 Heart rate 71 /min Alejandra [employer]en [facility] 04-24-2024 08:57-0500 Systolic blood pressure 125 mm[Hg] CAB[facility] - [facility] [facility] [facility] [employer] [employer] [facility] Encounters Encounter Date Encounter Type Care Provider Facility Start: 01-07-2025 ambulatory Ji SIMON Facili [facility] Start: 12-24-2024 ambulatory Ji SIMON [facility] [place] Start: 12-11-2024 ambulatory Ji SIMON Facili ty:[facility] Start: 11-12-2024 End: 11-12-2024 ambulatory Ji SIMON Facility:[facility] Start: 11-12-2024 End: 11-12-2024 Patient encounter procedure Ji SIMON [facility] Start: 10-15-2024 End: 10-15-2024 ambulatory Ji SIMON Facility:[facility] Start: 10-15-2024 End: 10-15-2024 Patient encounter procedure Ji Be AURORA [facility] Start: 09-14-2024 End: 09-14-2024 ambulatory Ji R AURORA Facility:[facility] Start: 09-14-2024 End: 09-14-2024 Patient encounter procedure Ji R AURORA [facility] Start: 09-10-2024 End: 09-10-2024 ambulatory Ji R AURORA Facility:[facility] [place] Start: 09-10-2024 End: 09-10-2024 Patient encounter procedure Ji R AURORA [facility] Start: 08-16-2024 End: 08-16-2024 ambulatory Claudio Talal Sarmini [facility] Start: 07-17-2024 End: 07-17-2024 ambulatory Claudio Talal Sarmini [facility] Start: 05-25-2024 End: 05-25-2024 Bamboo flowsheet Jazlyn [...] right hand Start: 05-21-2024 End: 05-21-2024 ambulatory González Talal Junmini Facility:[facility] Start: 05-21-2024 End: 05-21-2024 Patient encounter procedure Claudiohemalatha Barahonamini [facility] Start: 05-18-2024 End: 05-18-2024 ambulatory Jazlyn Wilburn [...] right Start: 05-11-2024 End: 05-11-2024 ambulatory Alejandra Cortesli [facility] Start: 05-11-2024 End: 05-11-2024 Patient encounter procedure Alejandra Hayden [facility] Start: 05-07-2024 End: 05-07-2024 ambulatory Alejandra ADo Monestorli Facility:[facility] Start: 05-07-2024 End: 05-07-2024 Patient encounter procedure Ji SIMON [facility] Start: 04-27-2024 ambulatory Alejandra Hayden Facilit y:[facility] Start: 04-26-2024 End: 04-26-2024 ambulatory Alejandra Hayden [facility] Start: 04-26-2024 End: 04-26-2024 Patient encounter procedure Alejandra Hayden [facility] Start: 04-25-2024 End: 04-25-2024 ambulatory Alejandra ADo Monestorli Facility[facility] Start: 04-25-2024 End: 04-25-2024 Lab Drop off Alejandra Cortesli [facility] Start: 04-24-2024 End: 04-24-2024 ambulatory Mohtianad A. Mouchli Facility[facility] Start: 04-24-2024 End: 04-24-2024 Patient encounter procedure Alejandra Simon. Jackelyn [facility] Start: 04-24-2024 End: 04-24-2024 ambulatory Alejandra Hayden Facility:[facility] Start: 04-24-2024 End: 04-24-2024 Patient encounter procedure Alejandra Hayden [facility] Start: 04-18-2024 ambulatory Alejandra Hayden Facilit y:[facility] Start: 03-15-2018 End: 03-16-2018 Patient encounter procedure LUIS ANTONIO DEL VALLEERER Facility:[facility] Start: 01-02-2018 End: 01-03-2018 [facility] Start: 10-26-2017 End: 10-27-2017 Patient [facility] Start: 09-27-2017 End: 09-28-2017 Patient encounter procedure [facility] Start: 09-15-2017 Encounter for genera l adult medical examination without abnormal findings [facility] Start: 09-14-2017 End: 09-15-2017 Patient encounter procedure LUIS ANTONIO Simon [facility] Encounter for genera l adult medical examination [...] LIVER, FT3, LIPI D, PSASC, TSH, DLDL ####[facility] [address] [place] [address]Ar[place]ind[place] Plan of Treatment Date Care Activity Detail Author Start: 11-19-2024 End: 11-19-2024 Patient encounter procedure 11/19/2024 8:20 AM EDT Office Visit MARY LARA [address] [place] [phone] Sfoie Weller NP [address] [place] [phone] MARY LARA Start: 05-25-2024 End: 05-25-2024 ambulatory 05/25/2024 8:00 AM EST Treatment [facility] [address] [place] [address] Jazlyn Wilburn, OT [address] [place] [address] [facility] Start: 05-22-2024 End: 05-22-2024 ambulatory 05/22/2024 8:00 AM EST Treatment [facility] [address] [place] [address] Jazlyn Wilburn, OT [address] [place] [address] [facility] Start: 05-18-2024 End: 05-18-2024 ambulatory 05/18/2024 8:00 AM EST Treatment [facility] [address] [place] [address] Jazlyn Wilburn, OT [address] [place] [address] [facility] Start: 05-17-2024 End: 05-17-2024 Patient encounter procedure 05/17/2024 8:00 AM EST Office Visit MARY LARA [address] [place] [phone] Sandra Castellanos DO [address] [place] [address] MARY LARA Start: 12-11-2023 Influenza vaccination Influenza Vacc ine (#1) [facility] Start: 1970 Screening for malign ant neoplasm of colon [facility] Immunizations Immunization Date Immunization Notes Care Provider Fa cility NEGATED: Highlighted row has not occurred!04-24-2024 influenza virus vaccine, unspecified formulation Alejandra Hayden [facility] Payers Date Payer Category Payer Private Health Insurance [id number] 2024 Medicaid (Managed Care) SANDOR MARINELLI [id number] 2024 Unknown [id number] 1970 Unknown [id number] 2.16.840.1.051022.3.579.2 .593 1970 Unknown [id number] 2.16.840.1.610550.3.579.2 .593 1970 Unknown [id number] 2.16.840.1.848637.3.579.2 .593 1970 Unknown [id number] 2.16.840.1.902685.3.579.2 .593 1970 Unknown [id number] 2.16.840.1.167738.3.579.2 .593 1970 Unknown [id number] 2.16.840.1.804855.3.579.2 .727 1970 Unknown [id number] 2.16.840.1.514546.3.579.2 .727 1970 Unknown [id number] 2.16.840.1.850345.3.579.2 .727 1970 Unknown [id number] 2.16.840.1.288022.3.579.2 .125 1970 Unknown [id number] 2.16.840.1.946332.3.579.2 .1258 1970 Unknown [id number] 2.16.840.1.148516.3.579.2 .1258 1970 Unknown [id number] 2.16.840.1.856150.3.579.2 .1258 1970 Unknown [id number] 2.16.840.1.309374.3.579.2 .1258 1970 Unknown [id number] 2.16.840.1.597690.3.579.2 1970 Unknown [id number] 2.16.840.1.574845.3.579.2 1970 Unknown [id number] 2.16.840.1.406014.3.579.2 1970 Unknown [id number] 2.16.840.1.065385.3.579.2 1970 Unknown [id number] 2.16.840.1.036946.3.579.2 1970 Unknown [id number] 2.16.840.1.943119.3.579.2 1970 Unknown [id number] 2.16.840.1.616087.3.579.2 1970 Unknown [id number] 2.16.840.1.557879.3.579.2 1970 Unknown [id number] 2.16.840.1.468490.3.579.2 1970 Unknown [id number] 2.16.840.1.169310.3.579.2 1970 Unknown [id number] 2.16.840.1.561920.3.579.2 1970 Unknown [id number] 2.16.840.1.310203.3.579.2 .727 1970 Unknown [id number] 2.16.840.1.979573.3.579.2 .727 1959 Unknown [id number] Social History Date Type Detail Facility Start: 04-24-2024 End: 08-16-2024 Tobacco smoking status Never smoked tobacco (finding) [facility] Tobacco smoking status Smokeless tobacco user within last [address] [facility] Start: 05-17-2024 Sex Assigned At Male F [facility] Tobacco smoking stat [facility] Tobacco smoking consumption unknown [facility] Start: 1970 Sex assigned at Not on file [facility] Start: 05-17-2024 Tobacco use and exposure User of smokeless tobacco [facility] History of tobacco use Chews Tobacco [facility] Start: 05-17-2024 Alcoholic beverage intake Current drinker of alcohol (finding) [facility] Start: 05-17-2024 History of Social function [facility] Sexual Orientation [facility] Sex Male (finding) [facility] Functional Status Date Assessment Result Facility 05-21-2024 Functional Status N/A [facility] 05-11-2024 Functional Status N/A [facility] 05-07-2024 Functional Status N/A [facility] 04-24-2024 Functional Status N/A [facility] Clinical Notes 05-07-2024 to 09-10-2024 Jazlyn Wilburn, OT - 05/25/2024 8:00 AM Mihir Wilburn, OT - 05/22/2024 8:00 AM Mihir Wilburn, OT - 05/18/2024 8:00 AM Gaurav Castellanos DO - 05/17/2024 8:00 AM EST Note [...] therapy. Follow these instructions at home: Take hydn-zqq-rseisnf and prescription medicines only as told by [...] provider. Document Revised: 11/27/2020 Document Reviewed: 11/27/2020 [employer] Patient Education 2023 [facility]. Follow Up Care 05/07/2024 09:57:31 With:AURORA ROMERO, Ji Be, URL Address: [facility] [address] [place] [phone] When: Unknown Comments:4 mos w/ T level [facility] [place] 09-10-2024 Note Patient Education Urology [...] Follow these instructions at home: ??? Take ibjy-ifo-qtxdfpn and prescription medicines only as told by [...] you discuss any (more content not included)... [facility] 05-25-2024 History of Present illness Narrative [...] all planes 1x15 with fair toleration. Composite cath lab radiological technologist holds x2 minutes. Contract release exercsies 1x15. [...] with doctor. documented in this encounter [facility] 05-22-2024 History of Present illness Narrative [...] all planes 1x15 with fair toleration. Composite cath lab radiological technologist holds x2 minutes. Contract release exercsies 1x15. [...] at discharge documented in this encounter [facility] 05-18-2024 History of Present illness Narrative Occupational Therapy Occupational Therapy Treatment Visit Patient Name: Tate Encarnacion Today's Date: 05/18/2024 Linked Episodes Type: Episode: Status: Noted: Resolved: Last update: Updated by: Occupational Therapy R hand swelling Active 05/15/2024 05/18/2024 8:05 AM Jazlyn Wilburn OT Comments: Visit number: 05/19 Timed Code Treatment minutes: 60 Total Treatment Time: 60 Subjective Pain: 10. No pain. I started the medication and bought a compression glove. It still feels stiff but better Overall progress:improving Objective: 40' MT for STM/ DTM of the R hand and wrist for edema management. PROM complete to R wrist, thumb, and all digits in all planes 1x15 with fair toleration. Composite cath lab radiological technologist holds x2 minutes. Contract release exercsies 1x15. [...] at discharge documented in this encounter [facility] 05-17-2024 History of Present illness Narrative [...] machine. He did have recent MRI at [facility]. He has never tried any medications [...] , wrist extensors , wrist flexor , cath lab radiological technologist strength 5/5. LUE Strength deltoid , biceps , triceps , wrist extensors , wrist flexor , cath lab radiological technologist strength 5/5. RLE Strength illopsoas, quadriceps, tibialis [...] reflex 2+ . Huerta's sign negative. Coordination: Pnwmzj-ft-zhls testing and rapid alternating movements are normal [...] return instructions documented in this encounter [facility] 05-15-2024 History of Present illness Narrative [...] composite fist. Strength Strength additional comments: R cath lab radiological technologist strength: 35# compared to L cath lab radiological technologist strength: 115# Special Tests Special tests additional [...] for light strengthening and ROM at discharge. Senior Living Goals: PRWHE Pain Score < 20/ 50 ( IE:39/50 ) PRWHE Functional Score <25/100 (IE: 68/100) Reduce R hand edema by at least 5 cm in order to reduce pain and improve ROM at discharge. Pt to increase cath lab radiological technologist strength by 10# and LP by 2# pain free at discharge. Pt will be able to use right UE in light daily activities. Pt will benefit from skilled OT to address the above impairments for 2x/week for 4-6 weeks. I hereby deem this POC medically necessary. Please sign below. Date: . documented in this encounter [facility] 05-11-2024 Evaluation + Plan note Extrac deb from: Title:RENA Post-operative Note---General Author: Cody Tay MD Date:05/11/24 Plan Transfer/Discharge: Transfer/Discharge Discharge when meets criteria ( To home ). Extracted from: Title:1Preop H&P Author:González Sutton MD Date:05/11/24 Impression and Plan Impression: change in bowel habits Plan: -EGD and Colonoscopy Extracted from: Title:RENA Pre-operative Note 2022 Author:Cody Chávez Date:05/11/24 Plan [place] [employer] Anesthesiologists (ASA) physical status classification: Class II. Anesthetic Preoperative Plan: Anesthesia General. Future Appointments Appointment Date:05/21/2024 09:00:00 AM Scheduled Provider:González Sutton MD [facility] Type[facility] Follow Up Appointment Date:09/07/2024 09:45:00 AM Scheduled Provider:Ji SIMON MD Location:[facility] Appointment Type:URO Office Visit [facility] 01-31-2025 Hospital Discharge instructions Patient [...] help quitting, ask your health careprovider. Take kdil-dim-wcrgcus and prescription medicines only as told by your health care provider. ?Do not use ncqz-tir-zejxiou medicines in place of prescription medicines unless [...] help quitting, ask your health careprovider. Take zolp-rwm-pprwqnl and prescription medicines only as told by your health care provider. Do not use qrou-txw-ymedncy medicines in place of prescription medicines unless your health care provider approves. Limit your alcohol and caffeine intake. Keep all follow-up visits. This is important. This information is not intended to replace advice given to you by your health care provider. Make sure you discuss any questions you have with your health care provider. Document Revised: 11/06/2021 Document Reviewed: 11/06/2021 [employer] Patient Education 2023 [facility]. 05/11/2024 09:43:40 Colonoscopy, Care After Surgery Salam [...] unsweetened, w/added ascorbic acid 1 cup 0.5 Lipscomb 1 cup 0.7 Vegetables Cooked Green beans 1 cup 4.0 Carrots 1/2 cup sliced 2.3 Peas 1 cup 8.8 Potato (baked, with skin) 1 medium potato 3.8 Raw Randall (with peel) 1 cucumber 1.5 Lettuce 1 [...] 8.7 Peanuts 1/2 cup 7.9 Chart from [facility] 2013. SEEK IMMEDIATE MEDICAL CARE [...] Reference. Available at http://www.nal.usda.gov/fnic/foodcomp/search/. Information adapted from: [facility] Patient Information 2009 [employer]oc[employer] [facility]. [facility] 2012 [email or web address] 05/11/2024 09:43:38 Colon Polyps Colon Polyps Colon [...] hard liquor (44 mL). General instructions Take awug-qqs-hlsjrvb and prescription medicines only as told by [...] provider. Document Revised: 07/16/2020 Document Reviewed: 07/16/2020 [employer] Patient Education 2023 [employer] 05/11/2024 09:27:02 Gluten-Free Diet for Celiac [...] are safe to eat. In the [place] [employer] are also required to list common food [...] how a food is processed, ask the drug abuse technician. What foods can I eat? Fruits All [...] cereals made from cornmeal or GF grains. [place], rice, and wild rice. Some rice noodles or dick noodles. Arrowroot starch, corn bran, corn flour, corn germ, cornmeal, corn starch, potato flour, potato starch flour, and rice bran. Plain, brown, and sweet rice flours. Rice armenian, soy flour, and tapioca starch. Meats and [...] or meat loaves. Bread-containing products, such as Iraqi steak, croquettes, meatballs, and meatloaf. Most tuna canned in vegetable broth. Girdler with hydrolyzed vegetable protein (HVP) injected as [...] provider. Document Revised: 02/16/2022 Document Reviewed: 02/16/2022 [employer] Patient Education 2023 [facility]. 05/11/2024 09:26:16 Upper Endoscopy, Adult, Care After [...] what activities are safe for you. Take ibav-cud-hnsixmh and prescription medicines only as told by [...] provider. Document Revised: 07/07/2022 Document Reviewed: 07/07/2022 [employer] Patient Education 2023 [employer] 05/11/2024 09:26:10 Esophagitis Esophagitis Esophagitis is inflammation [...] Follow these instructions at home: Medicines Take cngw-lca-eaeowcw and prescription medicines only as told by [...] powder, vinegar, hot sauces, and barbecue sauce. ?Barron fruit juices and citrus fruits, such as oranges, ronald, and limes. ?Tomato-based foods, such as red sauce, chili, salsa, and pizza with red sauce. ?Fried and fatty foods, such as donuts, honduran fries, potato chips, and high-fat dressings. ?High-fat [...] provider. Document Revised: 10/06/2020 Document Reviewed: 10/06/2020 [employer] Patient Education 2023 [facility]. 05/11/2024 09:25:57 Celiac Disease Celiac Disease Celiac [...] provider. Document Revised: 02/16/2022 Document Reviewed: 02/16/2022 [employer] Patient Education 2023 [facility]. 05/11/2024 09:25:22 Gastritis, Adult Gastritis, Adult Gastritis [...] medicines. These include steroids, antibiotics, and some viqk-lsi-swcpkjt medicines, such as aspirin or ibuprofen. Having [...] Follow these instructions at home: Medicines Take xpiq-mvs-lsuwtuq and prescription medicines only as told by [...] provider. Document Revised: 08/01/2021 Document Reviewed: 08/01/2021 [employer] Patient Education 2023 [facility]. [facility] 01-31-2025 NotePatient Education - Text Colonoscopy Care After Surgery Please read the instructions outlined below and refer to this sheet in the next few weeks. These discharge instructions provide you with general information on [facility] Your doctor may also give you [...] unsweetened, w/added ascorbic acid 1 cup 0.5 Lipscomb 1 cup 0.7 Vegetables Cooked Green beans 1 cup 4.0 Carrots 1/2 cup sliced 2.3 Peas 1 cup 8.8 Potato (baked, with skin) 1 medium potato 3.8 Raw Randall (with peel) 1 cucumber 1.5 Lettuce 1 [...] Chart from UpTo[employer] 2 (more content not included)...[facility] 05-11-2024 NoteProgress Note-Physician Patient: TATE ENCARNACION Age: 53 years Sex: Male : 1970 Associated Diagnoses: None Author: Cody Tay MD Postoperative Information Postoperative disposition: Postoperative disposition: To PACU. Optimetrix number: Optimetrix number [id number]. Anesthetic utilized: General. Health Status Allergies: Allergic [...] Discharge when meets criteria ( To home ).[facility]Result Comment: Electronically Signed By: [...] celiac disease Images Procedure images: [email or web address]_hd_video_2024__[id number].jpg Rec1_hd_video__[id number].jpg Rec1_hd_video__[id number].jpg Rec1_hd_video__[id number].jpg Rec1_hd_video_2024__[id number].jpg Rec1_hd_video__[id number].jpg Rec1_hd_video__[id number].jpg Rec1_hd_video__[id number].jpg Rec1_hd_video__[id number].jpg . Post-Procedure Complications: none. Estimated [...] EGD in 3 months to [facility] Comment on above:Result Comment: Electronically Signed By: González Sutton MD\.br\Date and Time Signed: 05/11/24 09:09 ESTOther Comment: Missing Attachment - attachment storage system not supported [id number] Can be viewed in source systemMissing Attachment - attachment storage system not supported [id number] Can be viewed insource systemMissing Attachment - attachment storage system not supported [id number] Can be viewed in source systemMissing Attachment - attachment storage system not supported [id number] Can be viewed in source systemMissing Attachment - attachment storage system not supported [id number] Can be viewed in source systemMissing Attachment - attachment storage system not supported [id number] Can be viewed in source systemMissing Attachment - attachment storage system not supported [id number] Can be viewed in source systemMissing Attachment - attachment storage system not supported [id number] Can be viewed in source systemMissing Attachment - attachment storage system not supported [id number] Can be viewed in [id number] NoteEndoscopic Procedure Report - Other Patient: TATE [...] qAM, # 75 gram, Refills(s) 3, [facility]acy: [facility], 165, cm, 05/07/24 9:19:00 EST, Height/Length Dosing, 108.1, kg, 05/07/24 9:19:00 EST, Weight Dosing Questran 4 g/9 g oral powder: = 1 packet(s), Oral, BID, # 60 EA, Refills(s) 0, Pharmacy: [facility], 170, cm, 04/24/24 8:57:00 EST, Height/Length Dosing, 108.6, kg, 04/24/24 8:57:00 EST, Weight Dosing Zenpep 60,000 units-189,600 units-252,600 units oral delayed release capsule: See Instructions, 300cap(s), Refill(s) 3, Take 2 caps with each meal and 1 with each snack, [facility], 170, cm, 04/24/24 8:57:00 EST, Height/Length Dosing, 108.6, kg, 04/24/24 8:57:00 EST, Weight Dosing tadalafil 20 mg Tab: 20 mg = 1 tab(s), Oral, As Directed, PRN for erectile dysfunction, Pt to take one tab 1 hour prior to sexual activity. Do not exceed 20mg in 24 hours., # 30 tab(s), Refills(s) 0,Pharmacy: [facility], 165, cm, 05/07/24 9:19:00 EST, Hei... [...] Normal examined terminal ileum Images Procedure images: Rec_hd_video__[id number].jpg Rec_hd_video___57_370.jpg Rec_hd_video___15_539.jpg Rec_hd_video___07_071.jpg Rec_hd_video___04_714.jpg Rec_hd_video___57_958.jpg Rec_hd_video___44_461.jpg Rec1_hd_video_2024__[id number].jpg . Post-Procedure Complications: none. Estimated blood loss: [...] 5. Otherwise normal colo (more content not included)...[facility] HospitalComment on above:Result Comment: Electronically Signed By: Lesley ROMERO, González Cadena\.br\Date and Time Signed: 05/11/24 09:07 ESTOther Comment: Missing Attachment - attachment storage system not supported [id number] Can be viewed in source systemMissing Attachment - attachment storage system not supported [id number] Can be viewed insource systemMissing Attachment - attachment storage system not supported [id number] Can be viewed in source systemMissing Attachment - attachment storage system not supported [id number] Can be viewed in so ce systemMissing Attachment - attachment storage system not supported [id number] Can be viewed in source systemMissing Attachment - attachment storage system not supported 8424964 Can be viewed in source systemMissing Attachment - attachment storage system not supported [id number] Can be viewed in source systemMissing Attachment - attachment storage system not supported [id number] Can be viewed in source -[phone] NoteHistory and Physical Patient: TATE ENCARNACION Age: [...] qAM, # 75 gram, Refills(s) 3, Pharmacy: [facility], 165, cm, 05/07/24 9:19:00 EST, Height/Length Dosing, 108.1, kg, 05/07/24 9:19:00 EST, Weight Dosing Questran 4 g/9 g oral powder: = 1 packet(s), Oral, BID, # 60 EA, Refills(s) 0, Pharmacy: [facility], 170, cm, 04/24/24 8:57:00 EST, Height/Length Dosing, 108.6, kg, 04/24/24 8:57:00 EST, Weight Dosing Zenpep 60,000 units-189,600 units-252,600 units oral delayed release capsule: See Instructions, 300cap(s), Refill(s) 3, Take 2 caps with each meal and 1 with each snack, [facility], 170, cm, 04/24/24 8:57:00 EST, Height/Length Dosing, 108.6, kg, 04/24/24 8:57:00 EST, Weight Dosing tadalafil 20 mg Tab: 20 mg = 1 tab(s), Oral, As Directed, PRN for erectile dysfunction, Pt to take one tab 1 hour prior to sexual activity. Do not exceed 20mg in 24 hours., # 30 tab(s), Refills(s) 0,Pharmacy: [facility], 165, cm, 05/07/24 9:19:00 EST, Hei... [...] hypertension (high blood pressure) / SNOMED CT 14989511 / Confirmed Thyroid function tests abnormal / SNOMED CT 623835956 / Confirmed Anemia of chronic disorder (low iron) / SNOMED CT 269642855 / Confirmed Bloating / SNOMED CT 150088434 / Confirmed Black stool / SNOMED CT 953719970 / Confirmed Chronic GERD / SNOMED CT 334069875 / Confirmed Decreased sexual desire / SNOMED CT 819265386 / Confirmed Alcohol drinker / SNOMED CT 293550999 / Confirmed Stress-related physiological response affecting medical condition / SNOMED CT 89507338 / Confirmed High triglycerides / SNOMED CT 299702805 / Confirmed Obesity due to excess calories / SNOMED CT 1234065219 / Confirmed ED (erectile dysfunction) / SNOMED CT 5621061835 / Confirmed Hypogonadism male / SNOMED CT 62624775 / Confirmed Screening PSA (prostate specific antigen) / SNOMED CT 766363682 / Confirmed BPH with urinary obstruction / SNOMED CT 2174632316 / Confirmed Acquired buried penis / SNOMED CT 438168427 / Confirmed Histories Past Medical History: No [...] 07:28) Heart Rate Monitored 73 bpm (MAY 11:28) Resp Rate 20 br/min (MAY 11:28) SBP H 141 mmHg (MAY 11 07:28) DBP H 93 mmHg (MAY 11 07:28) Weight 108.6 kg (MAY 11 07:18) BMI 37.58 (MAY 11 07:18) General: in Nad Abdomen: Soft, NTND Impression and Plan Impression: change in bowel habits Plan: -EGD and ColonoscopyGuernsey [facility] HospitalComment on above:Result Comment: Electronically Signed By: Lesley ROMERO, González Cadena\.br\Date and Time Signed: 05/11/24 08:34 [id number] NoteProgress Note-Physician Patient: TATE ENCARNACION Age: 53 [...] qAM, # 75 gram, Refills(s) 3, Pharmacy: [facility], 165, cm, 05/07/24 9:19:00 EST, Height/Length Dosing, 108.1, kg, 05/07/24 9:19:00 EST, Weight Dosing Questran 4 g/9 g oral powder: = 1 packet(s), Oral, BID, # 60 EA, Refills(s) 0, Pharmacy: [facility], 170, cm, 04/24/24 8:57:00 EST, Height/Length Dosing, 108.6, kg, 04/24/24 8:57:00 EST, Weight Dosing Zenpep 60,000 units-189,600 units-252,600 units oral delayed release capsule: See Instructions, 300cap(s), Refill(s) 3, Take 2 caps with each meal and 1 with each snack, [facility], 170, cm, 04/24/24 8:57:00 EST, Height/Length Dosing, 108.6, kg, 04/24/24 8:57:00 EST, Weight Dosing tadalafil 20 mg Tab: 20 mg = 1 tab(s), Oral, As Directed, PRN for erectile dysfunction, Pt to take one tab 1 hour prior to sexual activity. Do not exceed 20mg in 24 hours., # 30 tab(s), Refills(s) 0,Pharmacy: [facility], 165, cm, 05/07/24 9:19:00 EST, Hei... [...] Problems Acquired buried penis / SNOMED CT 578551348 / Confirmed Alcohol drinker / SNOMED CT 335068648 / Confirmed Anemia of chronic disorder (low iron) / SNOMED CT 863896842 / Confirmed Benign hypertension (high blood pressure) / SNOMED CT 97864616 / Confirmed Black stool / SNOMED CT 465875148 / Confirmed Bloating / SNOMED CT 611784092 / Confirmed BPH with urinary obstruction / SNOMED CT 3152124056 / Confirmed Chronic GERD / SNOMED CT 987344936 / Confirmed Decreased sexual desire / SNOMED CT 137001731 / Confirmed ED (erectile dysfunction) / SNOMED CT 5252376115 / Confirmed High triglycerides / SNOMED CT 403100781 / Confirmed Hypogonadism male / SNOMED CT 25380956 / Confirmed Obesity due to excess calories / SNOMED CT 7230734844 / Confirmed Screening PSA (prostate specific antigen) / SNOMED CT 319921354 / Confirmed Stress-related physiological response affecting medical condition / SNOMED CT 67358047 / Confirmed Thyroid function tests abnormal / SNOMED CT 988418559 / Confirmed Canceled: Low libido / SNOMED CT 589097677, Active Problems (16) Acquired buried penis Alcohol [...] have been selected or (more content not included)...[facility] HospitalComment on above:Result Comment: Electronically Signed By: Jasvir ROMERO, Cody Alvarez\.jeaneth\Date and Time Signed: 05/11/24 08:21 [id number] Hospital Discharge instructions Patient Education 05/07/2024 09:53:04 [...] therapy. Follow these instructions at home: Take zwgn-tgi-wfrwwwa and prescription medicines only as told by [...] provider. Document Revised: 11/27/2020 Document Reviewed: 11/27/2020 [employer] Patient Education 2023 [employer] 05/07/2024 09:39:27 Erectile Dysfunction Erectile Dysfunction Erectile [...] Follow these instructions at home: Medicines Take uawc-wps-mwsoqfx and prescription medicines only as told by [...] provider. Document Revised: 06/24/2021 Document Reviewed: 06/24/2021 [employer] Patient Education 2023 [facility]. Follow Up Care 04/27/2024 13:04:43 With:AURORA ROMERO, Ji Be, URL Address: [facility] [address] , [place] [address]- [phone] When: Unknown Comments:4 mos w/ PSA and T level [facility] [place] 01-27-2025 NotePatient Education Urology Hypogonadism, Male Male [...] Follow these instructions at home: ??? Take mkdp-vbn-efxqxqz and prescription medicines only as told by [...] sure you discuss any (more content not included)...[facility] Future Appointments Appointment Date:05/04/2024 09:30:00 AM Scheduled Provider: Location:[facility] Appointment Type:Surgery FT Appointment Date:05/11/2024 09:00:00 AM Scheduled Provider:Alejandra Hayden MD Location:[facility] Appointment Type:BADH Follow Up Future Scheduled Tests Laboratory* Pancreatic Elastase, Fecal 04/24/24 * Pancreatic Elastase, Fecal 04/24/24 * Calprotectin, Fecal 04/24/24 Radiology* US Abdomen, Limited 04/24/[address] [facility] Evaluation + Plan note Future Appointments Appointment Date:05/04/2024 09:30:00 AM Scheduled Provider: Location:[facility] Appointment Type:Surgery FT Appointment Date:05/11/2024 09:00:00 AM Scheduled Provider:Alejandra Hayden MD Location:[facility] Appointment Type:BAD Follow Up Diagnostic Tests Pending * Celiac Disease Comprehensive 04/24/24 * Testosterone Level Total 04/24/24 Future Scheduled Tests Laboratory* Pancreatic Elastase, Fecal 04/24/24 * Pancreatic Elastase, Fecal 04/24/24 * Calprotectin, Fecal 04/24/24 Radiology* US Abdomen, Limited 04/24/[address] [facility] evaluation + Plan note Future Appointments Appointment Date:04/26/2024 08:30:00 AM Scheduled Provider: [facility] Appoint[facility] Type:US Abdominal/Pelvis (FT) Appointment Date:05/04/2024 09:30:00 AM Scheduled Provider: Location:[facility] Appointment Type:Surgery FT Appointment Date:05/11/2024 09:00:00 AM Scheduled Provider:Alejandra Hayden MD Location:[facility] Appointment Type:BAD Follow Up Diagnostic Tests Pending * Calprotectin, Fecal 04/25/24 * Pancreatic Elastase, Fecal 04/25/24 Future Scheduled Tests Radiology* US Abdomen, Limited 04/26/[address] [facility] evaluation + Plan note Future Appointments Appointment Date:05/04/2024 09:30:00 AM Scheduled Provider: Location:[facility] Appointment Type:Surgery FT Appointment Date:05/11/2024 09:00:00 AM Scheduled Provider:Alejandra Hayden MD [facility] Type[facility] Follow Up [facility] Evaluation + Plan note Future Appointments Appointment Date:05/11/2024 08:15:00 AM Scheduled Provider: Location:[facility] Appointment Type:Surgery FT Appointment Date:05/21/2024 09:00:00 AM Scheduled Provider:González Sutton MD [place] Type:[facility] Follow Up Appointment Date:09/07/2024 09:45:00 AM Scheduled Provider:Ji SIMON MD Location:[facility] Appointment Type:URO Office Visit Diagnostic Tests Pending * Testosterone Level Total 05/07/24 * PSA Screen, Total 05/07/24 [facility] evaluation + Plan note Future Appointments Appointment Date:09/07/2024 09:45:00 AM Scheduled Provider:Ji SIMON MD Location:[facility] Appointment Type:URO Office Visit [facility] Evaluation + Plan note Future Appointments Appointment Date:09/14/2024 08:00:00 AM Scheduled Provider: Location:[facility] Appointment Type:URO Nurse Visit [facility] evaluation + Plan note Future Appointments Appointment Date:10/15/2024 09:00:00 AM Scheduled Provider: Location:[facility] Appointment Type:URO Nurse Visit [facility] evaluation + Plan note Future Appointments Appointment Date:11/12/2024 08:45:00 AM Scheduled Provider: Location:[facility] Appointment Type:URO Nurse Visit Appointment Date:12/11/2024 09:00:00 AM Scheduled Provider: Location:[facility] Appointment Type:URO Nurse Visit [facility] evaluation + Plan note Future Appointments Appointment Date:11/30/2024 12:30:00 PM Scheduled Provider: [facility]:EMG Unilateral Upper Extremity Appointment Date:12/11/2024 09:00:00 AM Scheduled Provider: Location:[facility] Appointment Type:URO Nurse Visit Appointment Date:12/24/2024 08:45:00 AM Scheduled Provider: Location:[facility] Appointment Type:URO Nurse Visit Appointment Date:01/07/2025 03:15:00 PM Scheduled Provider:Ji SIMON MD Location:[facility] Appointment Type:URO Office Visit [facility] evaluation note* Diagnosis Swelling of [...] Narrative No data available for this section [facility] Discharge instructions No data available for this section [facility] Progress note No data available for this section [facility] Reason for visit Narrative* Rehabilitation - Outpatient (Routine) - Authorized Specialty Diagnoses / Procedures Referred By Contac t Referred To Contact Occupational Therapy / Physical Therapy Diagnoses Swelling of R hand Procedures CT OCCUPATIONAL THERAPY EVALUATION CT OFFICE/OUTPATIENT NEW HIGH MDM 60 MINUTES Genoveva Cartagena MD [address] [place] [address] [place] [address] Phone: tel: fax: Jazlyn Wilburn, OT [address] [place] [address] Phone: tel: fax: Referral ID Status Reason Start Date Expiration Date V isits Requested Visits Authorized [id number] Authorized 05/15/2024 11/11/2024 30 30 [facility] N[facility]* Rehabilitation - Outpatient (Routine) - Authorized Specialty Diagnoses / Procedures Referred By Contac t Referred To Contact Occupational Therapy / Physical Therapy Diagnoses Swelling of R hand Procedures CT OCCUPATIONAL THERAPY EVALUATION CT OFFICE/OUTPATIENT NEW HIGH MDM 60 MINUTES Genoveva Cartagena MD [address] [facility] [place] [address] Phone: tel: fax: Jazlyn Wilburn, OT [address] [place] [address] Phone: tel: fax: Referral ID Status Reason Start Date Expiration Date V isits Requested Visits Authorized [id number] Authorized 05/15/2024 04/10/2025 30 30 [facility] [...] and content) DATE CREATED AUTHOR 03/21/2018 [facility] DATE CREATED AUTHOR AUTHOR'S ORGANIZ ATION 04/27/2024 [facility] DATE CREATED AUTHOR AUTHOR'S ORGANIZ ATION 04/28/2024 [facility] DATE CREATED AUTHOR AUTHOR'S ORGANIZ ATION 04/30/2024 [facility] DATE CREATED AUTHOR AUTHOR'S ORGANIZ ATION 05/18/2024 [facility] DATE CREATED AUTHOR AUTHOR'S ORGANIZ ATION 05/19/2024 [facility] DATE CREATED AUTHOR AUTHOR'S ORGANIZ ATION 05/27/2024 [facility] DATE CREATED AUTHOR AUTHOR'S ORGANIZ ATION 09/11/2024 [facility] DATE CREATED AUTHOR AUTHOR'S ORGANIZ ATION 11/13/2024 [facility] DATE CREATED AUTHOR AUTHOR'S ORGANIZ ATION 11/16/2024 [facility] Patient Care team informatio n (unrecognized section and content) 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 Specialty Start Date End Date Unallocated, Jose Hough MD [address] [place] [phone] PCP - General Family Medicine 04/19/24 Kira Garrison MD [address] [place] [address] Referring Physician Family Medicine 04/19/24 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 Specialty Start Date End Date Unallocated, Jose Hough MD [address] [place], [place] [address] [address] PCP - General Family Medicine 04/19/24 Kira Garrison MD [address] [place] [address] Referring Physician Family Medicine 04/19/24 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 Specialty Start Date End Date Unallocated, Jose Hough MD [address] [place] [address] [place] [address] PCP - General Family Medicine 04/19/24 Kira Garrison MD [address] [place] [address] Referring Physician Family Medicine 04/19/24 Sandra Castellanos DO [address] [id number] Referring Physician Neurology 05/17/24 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 Specialty Start Date End Date Unallocated, Jose Hough MD [address] [place] [phone] PCP - General Family Medicine 04/19/24 Kira Garrison MD [address] [place] [address] Referring Physician Family Medicine 04/19/24 Sandra Castellanos DO [address] [id number] Referring Physician Neurology 05/17/24 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 Specialty Start Date End Date Unallocated, Jose Hough MD [address] [place], [place] [address] [address] PCP - General Family Medicine 04/19/24 Kira Garrison MD [address] [place] [address] Referring Physician Family Medicine 04/19/24 Sandra Castellanos DO [address] [phone] Referring Physician Neurology 05/17/24 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 Specialty Start Date End Date Unallocated, Jose Hough MD [facility] [place] [address] PCP - General Family Medicine 04/19/24 Kira Garrison MD [address] [place] [address] Referring Physician Family Medicine 04/19/24 Sandra Castellanos DO [address] [place] [address] Referring Physician Neurology 05/17/24 Reason for Visit (unrecogniz ed section and content) Reason Comments Migraine Specialty Diagnoses / Procedures Referred By Contac t Referred To Contact Neurology Diagnoses Migraine, unspecified, not intractable, without status migrainosus ([facility]) Procedures CT OFFICE/OUTPATIENT NEW LOW MDM 30 MINUTES Kira Garrison MD [address] [place] [address] Phone: tel: fax: Sandra Castellanos DO [address] [address] Phone: tel: fax: Referral ID Status Reason Start Date Expiration Date V isits Requested Visits Authorized [id number] Closed Consult and Treat 04/18/2024 10/15/2024 1 [...] BE BASED ON THE PRIMARY CLINICAL RECORDS. [employer] provides no warranty or guarantee of the accuracy or completeness of information in this document.
--- OUTSIDE RECORDS SUMMARY | 2024-12-02 19:41 | XMS_ITS | Patient Health Record ---
Author Organization [facility] Address [address] [place] [address] Care Team Providers Care Review Rn Name Role Phone CartagenaJohn valencia Unavailable [phone] Kira Heredia Unavailable Unavailable xxEduardo Zita Unavailable Allergies No Known Allergies Results Component Value Reference Range Notes RHEUMATOID FACTOR Reviewed date:06/19/2024 09:54:48 AM Interpretation: Performing Lab: Notes/Report: HLA B27 Reviewed date:06/19/2024 09:54:38 AM Interpretation: Performing Lab: Notes/Report: CRP Reviewed date:06/19/2024 09:55:08 AM Interpretation: Performing Lab: Notes/Report: ESR Reviewed date:06/19/2024 09:55:19 AM Interpretation: Performing Lab: Notes/Report: MARY Reviewed date:06/19/2024 09:54:59 AM Interpretation: Performing Lab: Notes/Report: MRI : Hand W/O Contrast [facility] t - [id number] Reviewed date:08/29/2024 09:42:38 AM Interpretation: Performing Lab: Notes/Report: SCC- OT EVAL AND TREAT 3X/WE EK FOR 6 WEEKS Reviewed date:05/16/2024 09:41:33 AM Interpretation: Performing Lab: Notes/Report: Reason For Referral Reason APPROVED.........PLE ASE OBTAIN AUTHORIZATION FOR MRI RIGHT HAND Diagnosis 1 Swelling of right bonds nd (M79.89) Referral Organization [facility] Referring Provider First Name John Referring Provider Last Name Cartagena Referring Provider Speciality Orthopedic Surgery Referred Organization [facility] molly Referred Address [place], [place], Procedure 1 MRI Upper Ext NON-Cindy int w/o Dye ([id number]) General Notes Marie Morris 025 02:49:42 PM >NEED DICTATION, Marie Morris 05/28/2024 02:52:50 PM >PENDING R[facility] TRX # [id number] CLINICAL ATTACHED.............NEED DICTATION TO UPLOADSukhjinder Kimberly 05/28/2024 03:23:43 PM >Printed for Brooklyn Ahumada Monica 05/29/2024 12:14:20 PM >DONEAlexandra Amy 05/29/2024 12:32:29 PM >CLINICAL UPLOADEDAlexandra Amy 05/30/2024 07:51:05 AM >STILL PENDINGAlexandra Amy 05/31/2024 07:20:27 AM >APPROVED PER RAYO AUTH #[id number] VALID 05/28/2024-08/26/2024 COPY IN CHART MA NOTIFIED REF FAXED TO Sukhjinder LRAA Kimberly 05/31/2024 07:55:56 AM > Faxed order to [facility] Referral Priority Routine Reason Please contact magdalena stevens to schedule for EMG Right Upper Extremity, thank you. Diagnosis 1 Right hand paresthes ia (R20.2) Referral Organization [facility] Referring Provider First Name John Referring Provider Last Name Mitzi Referring Provider Speciality Orthopedic Surgery Referred Organization [facility] Referred Address [address] [place] [address], General Notes Vonda Barahona 2024 09:14:14 AM > FAXEDSukhjinder Kimberly 10/26/2024 09:30:21 AM >Received a call from Cheryl with [facility]. Christian Lewis in [place] is in network with [facility]. Faxed referral to them. Notified patient. Referral Priority Routine Medications Medication SIG (Take, [...] Problem Status W/U Status Risk Notes Problem [id number] Right hand paresthesia (R20.2) Active confirmed Problem [id number] Swelling of right hand (M79.89) Active confirmed Problem Fall, initial encounter (W19.XXXA) Active confirmed Vital Signs Height 5'6 in 09/10/2024 Weight 225 lbs 09/10/2024 BMI 36.31 09/10/2024 Encounters Encounter Location Date Provider Diagnosis [address] [place] [address] 05/14/2024 John Cartagena Other bursitis of knee, left knee M70.52 ; Stiffness of right hand joint M25.641 and Swelling of right hand M79.[address] [place] [address] [place] [address] 05/28/2024 Zita Marilyniteerik Swelling of right hand M79.89 and Fall, initial encounter W19.XXXA [address] [place] [address] 09/10/2024 John Cartagena Right hand paresthesia R20.2 [facility] [place] [address] [place] [address] 05/25/2024 John Cartagena Assessments Encounter Date Diagnosis [...] hand pain and swelling after fall 09/10/2024 Other For his hand paresthesias I recommended an EMG study. For his hand arthritis I have discussed options such as an injection into the third MP joint. He would like to think about this. He will follow-up once the EMG is complete. Import medication Plan Of Treatment Pending Test Test Name Order Date EMG/NCS Upper Extremity, Right 5 Insurance Providers Payer Name Payer Address Payer Phone Subscriber Number Group Number Insured Name Patient Relationship to Insured Coverage Start Date Coverage End Date [employer] [address] [address] [place] [address] [id number] SHASHANK TATE Self - patient is the insured Medical (General) History Medical History History ICD Code Hypothyroidism GI Problems: Depression Sleep apnea CPAP Machine: Yes
--- OUTSIDE RECORDS SUMMARY | 2024-12-02 19:42 | XMS_ITS | Patient Health Record ---
Author Organization [facility] in [place] Address [address] [place] [address] Care Team Providers Care Line Director Name Role Phone Kira Garrison Primary Care Provider Peternikhil Reid Caballero [phone] Allergies No Known Allergies Results Component Value Reference Range Notes IRON Reviewed date:04/17/2024 12:59:36 PM Interpretation: Performing Lab: Notes/Report: [facility] , Iron 129.0 65.0-175.0 ug/dL Performing Lab: see note - [facility] LB INSULIN Reviewed date:04/18/2024 09:12:23 AM Interpretation: Performing Lab: Notes/Report: [facility] , Insulin 15.6 2.6-24.9 uIU/mL Performed at: [facility] Sap Ppm Consultant: Atul Reid PhD, Phone: [phone] [address] [place], [place] [phone] Performing Lab: see note - [facility] LB LAB TESTING Reviewed date:04/18/2024 09:12:23 AM Interpretation: Performing Lab: Notes/Report: [id number] URIC ACID [facility] , Miscellaneous Test COMMENT . Uric Acid 8.2 mg/dL CB Performed [facility]: [facility] Therapeutic target for gout patients: <6.0 Test Ordered: [id number] Uric Acid Sap Ppm Consultant: Atul Reid PhD, Phone: [phone] [address], [place] [phone] Reference Range: 3.8-8.4 Performing Lab: see note - [facility] LB Occult Blood* Reviewed date:04/19/2024 12:06:25 PM Interpretation: Performing Lab: Notes/Report: [facility] , Occult Blood Negative Performing Lab: see note ML - [facility] LB CBC AUTO DIFF Reviewed date:05/22/2024 08:17:45 AM Interpretation: Performing Lab: Notes/Report: [facility] , White Blood Count 5.8 4.0-11.0 [...] Performing Lab: see note ML - [facility] LB CRP Reviewed date:05/22/2024 08:17:45 AM Interpretation: Performing Lab: Notes/Report: [facility] , C Reactive Protein <0.50 <=0.50 mg/dL Performing Lab: see note ML - [facility] LB PROF CHEM 8 (BAS METB) Reviewed date:05/22/2024 08:17:45 AM Interpretation: Performing Lab: Notes/Report: [facility] , Sodium 138 136-145 mmol/L Potassium [...] mg/dL Performing Lab: see note ML - [facility] LB Erythrocyte Sedimentation Ra te Reviewed date:05/22/2024 08:17:45 AM Interpretation: Performing Lab: Notes/Report: [facility] , Erythrocyte Sedimentation Rate 16 <=20 mm/hr Performing Lab: see note ML - [facility] LB DIRECT LDL Reviewed date:06/06/2024 09:35:27 AM Interpretation: Performing Lab: Notes/Report: [facility] , LDL Cholesterol Direct 49 <100 mg/dl OPTIMAL 100-129 mg/dl NEAR OR ABOVE OPTIMAL 160-189 mg/dl HIGH >190 mg/dl VERY HIGH 130-159 mg/dl BORDERLINE HIGH Performing Lab: see note ML - [facility] LB FREE T3 Reviewed date:06/06/2024 09:35:27 AM Interpretation: Performing Lab: Notes/Report: [facility] , Free T3 1.80 2.18-3.98 pg/mL Performing Lab: see note ML - [facility] LB LIPID PROFILE Reviewed date:06/06/2024 09:35:27 AM Interpretation: Performing Lab: Notes/Report: [facility] , Triglycerides 1473 <=150 mg/dL Cholesterol 245 <=200 mg/dL HDL Cholesterol 36 40-60 mg/dL > or =60 mg/dl - LOW CARDIOVASCULAR RISK <40 mg/dl - HIGH CARDIOVASCULAR RISK VLDL CHOLESTEROL 294.6 Chol HDL Ratio 6.8 7.1 - 11.0 MODERATE RISK 4.4 - 7.1 AVERAGE RISK 3.3 - 4.4 LOW RISK >11.0 HIGH RISK Performing Lab: see note ML - [facility] LB T4 Reviewed date:06/06/2024 09:35:27 AM Interpretation: Performing Lab: Notes/Report: [facility] , T4 Thyroxine 0.90 4.50-12.10 ug/dL Performing Lab: see note ML - [facility] LB TSH Reviewed date:06/06/2024 09:35:27 AM Interpretation: Performing Lab: Notes/Report: [facility] , Thyroid Stimulating Hormone 46.230 0.358-3.740 uIU/mL Performing Lab: see note ML - [facility] LB MR hand RT wo con Reviewed date:08/31/2024 11:57:15 AM Interpretation: Performing Lab: Notes/Report: Source Facility: [place] [address] Magnetic Resonance Report Signed Patient: KODY ENCARNACION MR#: [id number] : 1970 Acct:[id number] Age/Sex: 53 / M ADM Date: 08/31/24 Loc: MRI Attending Dr: KIRA GARRISON Ordering Physician: KIRA GARRISON Date of Service: 08/31/24 Procedure(s): MR hand RT wo con Accession Number(s): [id number] cc: KIRA GARRISON [place] [address] Patient Name: KODY ENCARNACION MRN: [id number] date: 1970 Sex: M Assigned Patient Location: MRI Current Patient Location: MRI Accession/Order Number: [id number] Exam Date: 08/31/2024 11:25 Report Date: 08/31/2024 [...] Xie M.D. 08/31/2024 11:33 AM Dictation Location: [place] [address] Electronically authenticated by: [id number] Y Date: 08/31/2024 11:33 Dictated By: Ken Xie M.D. Signed By: 08/31/24 1135 DD/ 1133 TD/TT: Air Traffic Supervisor: [place] [address] Magnetic Resonance Report Signed Patient: ANNETTE ENCARNACION MR#: [id number] : 1970 Acct:[id number] Age/Sex: 53 / M ADM Date: 08/31/24 Loc: MRI Attending Dr: KIRA GARRISON Ordering Physician: KIRA GARRISON Date of Service: 08/31/24 Procedure(s): MR miller d RT wo con Accession Number(s): [id number] cc: KIRA GARRISON [place] [id number] Patient Name: KODY ENCARNACION MRN: [id number] date: 1970 Sex: M Assigned Patient Location: MRI Current Patient Loca tion: MRI Accession/Order Numb er: [id number] Exam Date: 08/31/2024 11:25 Report Date: 08/31/2024 [...] Xie M.D. 08/31/2024 11:33 AM Dictation Location: [place] [address] Electronically authenticated by: [id number] Y Date: 08/31/2024 11:33 Dictated By: Ken Xie M.D. Signed By: 08/31/24 1135 DD/ 1133 TD/TT: Air Traffic Supervisor: YVONNE veronika perf SPECT rest str Reviewed date:09/06/2024 12:53:58 PM Interpretation: Performing Lab: Notes/Report: Source Facility: [place] [address] [place] [address] Nuclear Medicine Report Signed Patient: KODY ENCARNACION MR#: [id number] : 1970 Acct:[id number] Age/Sex: 54 / M ADM Date: 09/04/24 Loc: YVONNE Attending Dr: KIRA GARRISON Ordering Physician: KIRA GARRISON Date of Service: 09/04/24 Procedure(s): YVONNE veronika perf SPECT rest str Accession Number(s): [id number] cc: KIRA GARRISON Patient Name: KODY ENCARNACION MR#: [id number] : 1970 Exam Date: 09/04/2024 Ordering Doctor: KIRA GARRISON BUNDLE TIER RADIOLOGY REPORT PROCEDURE: NM VERONIKA PERF SPECT [...] the study was pending per attending physician [facility]. For more details, please see separate cardiac [...] M.D. Signed By: 09/05/241652 DD/ 51 TD/TT: Air Traffic Supervisor: [place] [address] Nuclear Medicine Report Signed Patient: ANNETTE ENCARNACION MR#: [id number] : 1970 Acct:[id number] Age/Sex: 54 / M ADM Date: 09/04/24 Loc: NM Attending Dr: KIRA GARRISON Ordering Physician: KIRA GARRISON Date of Service: 09/04/24 Procedure(s): NM veronika perf SPECT rest str Accession Number(s): [id number] cc: MELIKIRA Patient Name: KODY ENCARNACION MR#: [id number] : 1970 Exam Date: 09/04/2024 Ordering Doctor: SUREKHA GARRISON BUNDLE TIER RADIOLOGY REPORT PROCEDURE: NM VERONIKA PE RF [...] study was pendin g per attending physician [facility]. For more details, please see separate cardiac [...] M.D. Signed By: 09/05/241652 DD/ 51 TD/TT: Air Traffic Supervisor: PROLACTIN Reviewed date:09/12/2024 10:18:42 AM Interpretation: Performing Lab: Notes/Report: [facility] , Prolactin 18.3 3.6-25.2 ng/mL [address] [place], [place] [phone] Sap Ppm Consultant: Atul Reid PhD, Phone: [phone] Performed at: [facility] Performing Lab: see note [facility] FREE T3 Reviewed date:11/12/2024 01:02:51 PM Interpretation: Performing Lab: Notes/Report: [facility] , Free T3 2.00 2.18-3.98 pg/mL Performing Lab: see note ML - [facility] LB T4 Reviewed date:11/12/2024 01:02:51 PM Interpretation: Performing Lab: Notes/Report: [facility] , T4 Thyroxine 4.10 4.50-12.10 ug/dL Performing Lab: see note ML - [facility] LB TSH Reviewed date:11/12/2024 01:02:20 PM Interpretation: Performing Lab: Notes/Report: [facility] , Thyroid Stimulating Hormone 10.166 0.358-3.740 uIU/mL Performing Lab: see note ML - [facility] LB Testosterone Reviewed date:08/13/2024 11:42:12 AM Interpretation: Performing Lab: Notes/Report: [facility] , Testosterone 168 264-916 ng/dL Adult male reference interval is based on a population of [id number]. healthy nonobese males (BMI <30) between 19 and 39 years Sap Ppm Consultant: Atul Reid PhD, Phone: [phone] [address] [place] [phone] old. gus Levy.al. JCEM 2017,102;7078-1075. PMID: Performed at: [facility] Performing Lab: see note [facility] LB TSH Reviewed date:08/13/2024 11:42:12 AM Interpretation: Performing Lab: Notes/Report: [facility] , Thyroid Stimulating Hormone 24.729 0.358-3.740 uIU/mL Performing Lab: see note ML - [facility] LB T4 Reviewed date:08/13/2024 11:42:12 AM Interpretation: Performing Lab: Notes/Report: [facility] , T4 Thyroxine 3.10 4.50-12.10 ug/dL Performing Lab: see note ML - [facility] LB PSA SCREENING Reviewed date:08/13/2024 11:42:12 AM Interpretation: Performing Lab: Notes/Report: [facility] , Prostate Specific Antigen Scrn 0.44 <=4.00 ng/mL Performing Lab: see note ML - [facility] LB LIPID PROFILE Reviewed date:08/13/2024 11:42:12 AM Interpretation: Performing Lab: Notes/Report: [facility] , Triglycerides 1318 <=150 mg/dL Cholesterol 215 <=200 mg/dL HDL Cholesterol 37 40-60 mg/dL <40 mg/dl - HIGH CARDIOVASCULAR RISK > or =60 mg/dl - LOW CARDIOVASCULAR RISK VLDL CHOLESTEROL 263.6 Chol HDL Ratio 5.8 4.4 - 7.1 AVERAGE RISK >11.0 HIGH RISK 3.3 - 4.4 LOW RISK 7.1 - 11.0 MODERATE RISK Performing Lab: see note ML - [facility] LB FREE T3 Reviewed date:08/13/2024 11:42:12 AM Interpretation: Performing Lab: Notes/Report: [facility] , Free T3 2.47 2.18-3.98 pg/mL Performing Lab: see note ML - [facility] LB DIRECT LDL Reviewed date:08/13/2024 11:42:12 AM Interpretation: Performing Lab: Notes/Report: [facility] , LDL Cholesterol Direct 50 <100 mg/dl OPTIMAL 130-159 mg/dl BORDERLINE HIGH >190 mg/dl VERY HIGH 160-189 mg/dl HIGH 100-129 mg/dl NEAR OR ABOVE OPTIMAL Performing Lab: see note ML - [facility] LB CBC AUTO DIFF Reviewed date:08/13/2024 11:42:12 AM Interpretation: Performing Lab: Notes/Report: [facility] , White Blood Count 4.7 4.0-11.0 [...] Performing Lab: see note ML - [facility] LB CBC AUTO DIFF Reviewed date:06/06/2024 09:35:27 AM Interpretation: Performing Lab: Notes/Report: [facility] , White Blood Count 7.2 4.0-11.0 [...] 0.00-0.03 10 3/uL Performing Lab: see note [facility] HLA B 27 Disease Association Reviewed date:05/22/2024 08:17:45 AM Interpretation: Performing Lab: Notes/Report: [facility] , HLA B 27 Disease Association Negative . by the Food and Drug Administration. Sap Ppm Consultant: Elizabeth Quevedo PhD, Phone: [phone] The FDA has determined that such clearance or approval is supplemental method when necessary. technique. Sequence Based Typing (SBT) may be used as a This test was developed and its performance characteristics (PCR) and Sequence Specific Oligonucleotide Probes (SSOP) [address] [place] [address] [phone] This test was performed using Polymerase Chain Reaction determined by [facility]. It has not been cleared or approved Performed at: [address] [place] [address] DNA not necessary. B27 allele interpretation for all loci based on IMGT/HLA database version 3.51.0 [facility] CLIA ID Number [id number] If you have questions, please call HLA customer service at or email at [email or web address]. HLA-B*27 Negative Performing Lab: see note [facility] RHEUMATOID FACTOR Reviewed date:05/22/2024 08:17:45 AM Interpretation: Performing Lab: Notes/Report: [facility] , Rheumatoid Factor (RF) 13.8 <14.0 IU/mL [address] [place] [phone] Sap Ppm Consultant: Atul Reid PhD, Phone: [phone] Performed at: [facility] Performing Lab: see note [facility] MARY by IFA Reviewed date:05/22/2024 08:17:18 AM Interpretation: Performing Lab: Notes/Report: [facility] , Antinuclear Antibodies, IFA Negative . International Consensus on Antinuclear Antibody (MARY) Borderline 1:80 Negative <1:[address] [place] [address] [phone] Patterns ([facility]). For more information about Hep-2 cell patterns use [employer]oc[employer], the official website for the Positive >1:80 Sap Ppm Consultant: Atul Reid PhD, Phone: [phone] Performed at: [facility] nomenclature: AC-0 Performing Lab: see note - [facility] LB MR head/brain wo con Reviewed date:05/11/2024 12:35:06 PM Interpretation: Performing Lab: Notes/Report: Source Facility: [place] [address] Magnetic Resonance Report Signed Patient: KODY ENCARNACION MR#: [id number] : 1970 Acct:[id number] Age/Sex: 53 / M ADM Date: 05/08/24 Loc: MRI Attending Dr: KIRA GARRISON Ordering Physician: KIRA GARRISON Date of Service: 05/08/24 Procedure(s): MR head/brain wo con Accession Number(s): [id number] cc: KIRA GARRISON [place] [address] Patient Name: KODY ENCARNACION MRN: [id number] date: 1970 Sex: M Assigned Patient Location: MRI Current Patient Location: MRI Accession/Order Number: [id number] Exam Date: 05/08/2024 09:00 Report Date: 05/08/2024 [...] Signed By: 05/08/24 1302 DD/ 1259 TD/TT: Air Traffic Supervisor: [place] [address] Magnetic Resonance Report Signed Patient: ANNETTE ENCARNACION MR#: [id number] : 1970 Acct:[id number] Age/Sex: 53 / M ADM Date: 05/08/24 Loc: MRI Attending Dr: KIRA GARRISON Ordering Physician: KIRA GARRISON Date of Service: 05/08/24 Procedure(s): MR head/brain wo con Accession Number(s): [id number] cc: KIRA GARRISON [place] [id number] Patient Name: KODY ENCARNACION MRN: [id number] date: 1970 Sex: M Assigned Patient Location: MRI Current Patient Loca tion: MRI Accession/Order Numb er: [id number] Exam Date: 05/08/2024 09:00 Report Date: 05/08/2024 [...] Signed By: 05/08/24 1302 DD/ 1259 TD/TT: Air Traffic Supervisor: LAB TESTING Reviewed date:04/30/2024 03:58:21 PM Interpretation: Performing Lab: Notes/Report: [id number] METABOLIC PANEL 14, COMPREHENSIVE [facility] , Miscellaneous Test SEE SCANN ED REPORT Performing Lab: see note - [facility] LB Vitamin B12 Reviewed date:04/18/2024 09:12:24 AM Interpretation: Performing Lab: Notes/Report: [facility] , Vitamin B12 898 708-6835 pg/mL Performed at: [facility] Sap Ppm Consultant: Atul Reid PhD, Phone: [phone] [address], [place] [phone] Performing Lab: see note - [facility] LB VITAMIN D 25 [place] Reviewed date:04/17/2024 12:59:36 PM Interpretation: Performing Lab: Notes/Report: [facility] , Vitamin D 21.6 30-100 ng/mL Vit D sufficient <20 ng/mL Vit D deficient >100 ng/mL Potential Toxicity 20-<30 ng/mL Vit D insufficient Performing Lab: see note - [facility] LB TSH Reviewed date:04/17/2024 12:59:36 PM Interpretation: Performing Lab: Notes/Report: [facility] , Thyroid Stimulating Hormone 27.573 0.358-3.740 uIU/mL Performing Lab: see note ML - [facility] LB T4 Reviewed date:04/17/2024 12:59:36 PM Interpretation: Performing Lab: Notes/Report: [facility] , T4 Thyroxine 4.30 4.50-12.10 ug/dL Performing Lab: see note ML - [facility] LB PSA SCREENING Reviewed date:04/17/2024 12:59:36 PM Interpretation: Performing Lab: Notes/Report: [facility] , Prostate Specific Antigen Scrn 0.22 <=4.00 ng/mL Performing Lab: see note ML - [facility] LB LIPID PROFILE Reviewed date:04/17/2024 12:59:36 PM Interpretation: Performing Lab: Notes/Report: [facility] , Triglycerides 3317 <=150 mg/dL Cholesterol 301 <=200 mg/dL HDL Cholesterol 27 40-60 mg/dL > or =60 mg/dl - LOW CARDIOVASCULAR RISK <40 mg/dl - HIGH CARDIOVASCULAR RISK VLDL CHOLESTEROL 663.4 Chol HDL Ratio 11.1 >11.0 HIGH RISK 3.3 - 4.4 LOW RISK 7.1 - 11.0 MODERATE RISK 4.4 - 7.1 AVERAGE RISK Performing Lab: see note ML - [facility] LB GLYCOHEMOGLOBIN A1C Reviewed date:04/17/2024 12:59:36 PM Interpretation: Performing Lab: Notes/Report: [facility] , Glycohemoglobin A1C 6.1 4.5-6.2 % > 7.0 ADA THERAPEUTIC TARGET < 7.0 ADA RECOMMENDED LIMIT 4.0 - 6.0 ACTION SUGGESTED Estimated Average Glucose 128 Performing Lab: see note ML - [facility] LB FREE T3 Reviewed date:04/17/2024 12:59:36 PM Interpretation: Performing Lab: Notes/Report: [facility] , Free T3 2.15 2.18-3.98 pg/mL Performing Lab: see note ML - [facility] LB DIRECT LDL Reviewed date:04/17/2024 12:59:36 PM Interpretation: Performing Lab: Notes/Report: [facility] , LDL Cholesterol Direct 49 <100 mg/dl OPTIMAL 100-129 mg/dl NEAR OR ABOVE OPTIMAL 160-189 mg/dl HIGH 130-159 mg/dl BORDERLINE HIGH >190 mg/dl VERY HIGH Performing Lab: see note ML - [facility] LB CBC AUTO DIFF Reviewed date:04/17/2024 12:59:36 PM Interpretation: Performing Lab: Notes/Report: [facility] , White Blood Count 5.8 4.0-11.0 [...] 3/uL Performing Lab: see note ML - [facility] LB XR KNEE LT 3V Reviewed date:04/17/2024 04:05:58 PM Interpretation: Performing Lab: Notes/Report: Source Facility: [place] [address] XRay Report Signed Patient: KODY ENCARNACION MR#: [id number] : 1970 Acct:[id number] Age/Sex: 53 / M ADM Date: 04/17/24 Loc: LAB Attending Dr: KIRA GARRISON Ordering Physician: KIRA GARRISON Date of Service: 04/17/24 Procedure(s): XR knee LT 3V Accession Number(s): [id number] cc: KIRA GARRISON [place] [address] Patient Name: KODY ENCARNACION MRN: [id number] date: 1970 Sex: M Assigned Patient Location: LAB Current Patient Location: LAB Accession/Order Number: [id number] Exam Date: 04/17/2024 10:25 Report Date: 04/17/2024 [...] Signed By: 04/17/24 1535 DD/ 1532 TD/TT: Air Traffic Supervisor: [place] [address] XRay Report Signed Patient: ANNETTE ENCARNACION MR#: [id number] : 1970 Acct:[id number] Age/Sex: 53 / M ADM Date: 04/17/24 Loc: LAB Attending Dr: KIRA GARRISON Ordering Physician: KIRA GARRISON Date of Service: 04/17/24 Procedure(s): XR kne e LT 3V Accession Number(s): [id number] cc: KIRA GARRISON [place] [address] Patient Name: KODY ENCARNACION MRN: [id number] date: 1970 Sex: M Assigned Patient Location: LAB Current Patient Loca tion: LAB Accession/Order Numb er: [id number] Exam Date: 04/17/2024 10:25 Report Date: 04/17/2024 [...] Signed By: 04/17/24 1535 DD/ 153 TD/TT: Air Traffic Supervisor: XR HAND RT MIN 3V Reviewed date:04/17/2024 04:06:04 PM Interpretation: Performing Lab: Notes/Report: Source Facility: [place] [address] XRay Report Signed Patient: KODY ENCARNACION MR#: [id number] : 1970 Acct:[id number] Age/Sex: 53 / M ADM Date: 04/17/24 Loc: LAB Attending Dr: KIRA GARRISON Ordering Physician: KIRA GARRISON Date of Service: 04/17/24 Procedure(s): XR hand RT min 3V Accession Number(s): [id number] cc: KIRA GARRISON [place] [address] Patient Name: KODY ENCARNACION MRN: [id number] date: 1970 Sex: M Assigned Patient Location: LAB Current Patient Location: LAB Accession/Order Number: [id number] Exam Date: 04/17/2024 10:25 Report Date: 04/17/2024 [...] Signed By: 04/17/24 1535 DD/ 153 TD/TT: Air Traffic Supervisor: [place] [address] XRay Report Signed Patient: ANNETTE ENCARNACION MR#: [id number] : 1970 Acct:[id number] Age/Sex: 53 / M ADM Date: 04/17/24 Loc: LAB Attending Dr: KIRA GARRISON Ordering Physician: KIRA GARRISON Date of Service: 04/17/24 Procedure(s): XR miller d RT min 3V Accession Number(s): [id number] cc: KIRA GARRISON [place] [address] Patient Name: KODY ENCARNACION MRN: [id number] date: 1970 Sex: M Assigned Patient Location: LAB Current Patient Loca tion: LAB Accession/Order Numb er: [id number] Exam Date: 04/17/2024 10:25 Report Date: 04/17/2024 [...] Signed By: 04/17/24 1535 DD/ 1532 TD/TT: Air Traffic Supervisor: TSH Reviewed date:09/27/2024 04:10:29 PM Interpretation: Performing Lab: Notes/Report: [facility] , Thyroid Stimulating Hormone 20.514 0.358-3.740 uIU/mL Performing Lab: see note ML - [facility] LB T4 Reviewed date:09/27/2024 04:10:37 PM Interpretation: Performing Lab: Notes/Report: [facility] , T4 Thyroxine 3.30 4.50-12.10 ug/dL Performing Lab: see note ML - [facility] FREE T3 Reviewed date:09/27/2024 04:10:37 PM Interpretation: Performing Lab: Notes/Report: [facility] , Free T3 2.13 2.18-3.98 pg/mL Performing Lab: see note ML - [facility] LB Reason For Referral Reason headache for 6 month s Diagnosis 1 Migraine (G43.909) Referral Organization [facility] Referring Provider First Name Kira Referring Provider Last Name Meli Referring Provider [facility] icine Referred Provider Kenzie Null Referred Provider Specialty Neurology Referral Priority Routine Reason IBS Diagnosis 1 Irritable bowel (K58 .9) Referral Organization [facility] Referring Provider First Name Kira Referring Provider Last Name Meli Referring Provider [facility] icine Referred Provider Cristobal Moncada Referred Provider Specialty Gastroentero logy Referral Priority Routine Diagnosis 1 Irritable bowel (K58 .9) Referral Organization [facility] Referring Provider First Name Kira Referring Provider Last Name Meli Referring Provider [facility] icine Referred Provider Alejandra Hayden Referred Provider Specialty Gastroentero logy Referral Priority Routine Diagnosis 1 Left knee pain (M25. 562) Referral Organization [facility] Referring Provider First Name Kira Referring Provider Last Name Meli Referring Provider [facility] icine Referred Provider John [place] Referred Provider Specialty Orthopedic S urgery Referral Priority Routine Diagnosis 1 Polyarticular osteoa rthritis (M15.9) Referral Organization [facility] Referring Provider First Name Kira Referring Provider Last Name Meli [facility] Abdi Duke Referred Provider Specialty Rheumatology Referral Priority Routine Diagnosis 1 Hand pain (M79.643) Referral Organization [facility] Referring Provider First Name Kira Referring Provider Last Name Meli Referring Provider [facility] Referred Provider Jose Pfeiffer) Referred Provider Specialty Orthopedic S urgery General Notes Taylor Bennett 2024 08:40:44 AM >Second Opinion Referral Priority Routine Reason MALCOLM, fatigue Diagnosis 1 Sleep apnea (G47.30) Referral Organization [facility] Referring Provider First Name Kira Referring Provider Last Name Meli [facility]erred Provider Kenzie Null Referred Provider Specialty Sleep Medici ne Referral Priority Routine Medications Medication SIG (Take, Route, Frequency, Duration) Notes Start Date End Date Status Wellbutrin XL 150 MG 1 tablet in the mor josias Orally Once a day for 30 days 09/27/2024 Active Levothyroxine Sodium 175 MCG TAKE 1 TABLET BY MOUTH EVERY DAY for 30 days Active Vitamin D3 Super Strength 50 MCG (1999 UT) 1 capsule Orally Once a day for 30 days 04/20/2024 Active Cholestyramine 4 GM/DOSE TAKE FOUR GRAM BY MOUTH TWICE DAILY Oral for 100 Days Active BD Syringe/Needle 23G X 1 3 ML as directed for 90 days 06/21/2024 Acti ve Fish Oil 1000 MG TAKE 1 CAPSULE BY [facility] THREE TIMES DAILY FOR 30 DAYS for [...] Status W/U Status Risk Notes Problem Hypothyroidism (02112737) Hypothyroidism (E03.9) Active confirmed Problem Sleep apnea (32359083) Sleep apnea (G47.30) Active confirmed Problem Vitamin D deficiency (23852245) Vitamin D deficiency (E55.9) Active confirmed Problem Migraine (63302690) Migraine (G43.909) Active c onfirmed Problem Chronic fatigue syndrome (46389459) Chronic fatigue (R53.82) Active confirmed Problem Hypertriglyceridemia (294779163) Hypertriglyceridemia (E78.1) Active confirmed Problem Low testosterone (490835702) Low testosterone (E29.1) Active confirmed Problem Neuralgia (79123208) Neuralgia (M79.2) Active c onfirmed Problem Irritable bowel (72104984) Irritable bowel (K58.9) Active confirmed Problem Mixed anxiety and depressive disorder (899425714) Anxiety and depression (F41.8) Active confirmed Problem Obese class I (finding) (840281064246228) Class 1 obesity (E66.9) Active confirmed Problem Polyarticular osteoarthritis (519326125) Polyarticular osteoarthritis (M15.9) Active confirmed Vital Signs [...] N/A Encounters Encounter Location Date Provider Diagnosis [facility] [address] [place] [address] 04/17/2024 Kira Garrison Wellness examination Z00.00 ; Migraine G43.909 ; Right hand pain M79.641 ; Left knee pain M25.562 ; Irritable bowel K58.9 and Depression F32.A [address] [address] 04/20/2024 Kira Garrison Right hand pain M79. 641 ; Hypertriglyceridemia E78.1 ; Left knee pain M25.562 ; Hypothyroidism E03.9 and Vitamin D deficiency E55.[address] [address] 06/13/2024 Kira Garrison Fatigue R53.83 ; Low testosterone E29.1 ; Sleep apnea G47.30 and Hypothyroidism E03.[address] [address] 06/28/2024 Reid Hoy Low testosterone E29 .[address] [address] 07/12/2024 Reid Hoy Low testosterone E29 .[address] [address] 07/24/2024 Kira Garrison Low testosterone E29 .[address] [address] 08/16/2024 Kira Garrison Low testosterone E29 .[address] [address] 08/30/2024 Kira Garrison Low testosterone E29 .[address] [place] [address] 08/27/2024 Kira Garrison Intermittent chest p ain R07.9 ; Fatigue R53.83 and Right hand pain M79.[address] [address] 09/27/2024 Kira Garrison Hypothyroidism E03.9 ; Sleep apnea G47.30 ; Low testosterone E29.1 ; Anxiety and depression F41.8 and Chronic fatigue R53.[address] [place] [address] 04/18/2024 Kira Garrison Irritable bowel K58. 9 [facility] [address] [place] [place] [address] 04/19/2024 Kira Garrison [facility] [address] [place] [facility] [place] [address] 04/23/2024 Kira Garrison [facility] [address] [place] [place] [address] 04/30/2024 Kira Garrison Left knee pain M25.5 62 and Polyarticular osteoarthritis M15.9 [facility] [address] [place] [place] [address] 05/11/2024 Kira Garrison [facility] [address] [place] [place] [address] 06/04/2024 Kira Garrison Wellness examination Z00.00 and Hypothyroidism E03.9 [facility] [address] [place] [place] [address] 06/06/2024 Kira Garrison Hypothyroidism E03.9 and Hypertriglyceridemia E78.1 [facility] [address] [place] [address] 06/08/2024 Kira Garrison Hypertriglyceridemia E78.1 [facility] [address] [place] [place] [address] 06/12/2024 Reid Greeny [facility] [address] [place] [place] [address] 06/13/2024 Kira Garrison [facility] [address] [place] [place] [address] 06/18/2024 Kira Garrison Fatigue R53.83 and L ow testosterone E29.1 [facility] [address] [place] [place] [address] 06/28/2024 Kira Garrison [facility] [address] [place] [place] [address] 07/24/2024 Kira Garrison [facility] [address] [place] [place] [address] 08/06/2024 Reid Meyer Low testosterone E29 .1 [facility] [address] [place] [place] [address] 08/09/2024 Kira Garrison Low testosterone E29 .1 [facility] [address] [place] [place] [address] 08/21/2024 Kira Garrison Hypothyroidism E03.9 and Low testosterone E29.1 [facility] [address] [place] [place] [address] 08/27/2024 Kira Garrison Hand pain M79.643 [facility] [address] [place] [place] [address] 08/31/2024 Kira Garrison [facility] [address] [place] [place] [address] 09/06/2024 Kira Garrison [facility] [address] [place] [place] [address] 09/10/2024 Kira Garrison [facility] [address] [place] [place] [address] 09/24/2024 Kira Garrison Low testosterone E29 .1 [facility] [address] [place] [place] [address] 09/27/2024 Kira Garrison Hypothyroidism E03.9 [facility] [address] [place] [place] [address] 11/06/2024 Kira Garrison Abnormal thyroid blo od test R94.6 [facility] [address] [place] [place] [address] 11/12/2024 Kira Garrison Hypothyroidism E03.9 Assessments Encounter Date Diagnosis (ICD [...] thyroid blo od test (ICD-10 - R94.6) 11/12/2024 Hypothyroidism (ICD- 10 - E03.9) 08/21/2024 Low [...]
--- OUTSIDE RECORDS SUMMARY | 2024-12-02 19:42 | XMS_ITS | Clinical Summary ---
Author Organization [facility] Healthcare Address [address] [place] [address] Care Team Providers Care Driver License Reviewing Officer Name Role Phone Kira Heredia MD Unavailable [phone] Unallocated, [facility] Provider Primary Care Provi radha Loco Castellanos DO Unavailable [phone] Allergies No known active allergies Medications cholecalciferol (Vitamin D-3) 50 MCG (1999 UT) [...] 05/15/2024 Joint stiffness of hand, right 05/15/2024 Social History Tobacco Use Types Packs/Day Years [...] 1970 Sigmoidoscopy 1970 Influenza Vaccine (#1) 2024 Insurance [employer] Care Teams Driver License Reviewing Officer Relationship Specialty Start Date End Date Unallocated, [place] MD Gianluca [address] [place], [place] [id number] PCP - General Family Medicine 04/19/24 Kira Heredia MD [address] [place] [address] Referring Physician Family Medicine 04/19/24 Loco Castellanos DO [address] [place] [address] Referring Physician Neurology 05/17/24
[2024-12-02 19:46] VITALS: BP 164/95; PULSE 93; TEMP 36.8; O2SAT 94; BMI 35.5
--- NOTE | 2024-12-02 20:04 | ED.FALL1 ---
HPI HPI - Fall General Chief Complaint: Fall Stated Complaint: FALL Time Seen by Provider: 12/02/24 19:58 Source: patient Mode of arrival: walk-in Limitations: no limitations History of Present Illness HPI Narrative: patient states he was drinking alcohol and smoking marijuana. States while smoking and inhaling he loss his breath and passed out striking his face and head. Sustained lac to his parietal scalp, minor cut to his nose and bit his tongue. He was alone but believes he was back up pretty quick. States family convinced him to come in. States he feels well. Is refusing any blood work. Came in because family convinced him he may need stitches for his scalp. Denies headache or neck pain. No numbness or extremity weakness. Denies injury other than to his face and head. No back or chest pain. No extremity pain or abdominal pain. Not nauseated Related Data Home Medications ?Medication ?Instructions ?Recorded ?Confirmed cholecalciferol (vitamin D3) 50 12/02/24 mcg (2,000 unit) capsule fluoxetine 20 mg capsule mg 12/02/24 levothyroxine 150 mcg tablet mcg 12/02/24 levothyroxine 175 mcg tablet mcg 12/02/24 xtigor-pfsrjsfp-dyqqdaw cap PO 12/02/24 36,000-114,000-180,000 unit capsule,delay rel (Creon) nabumetone 500 mg tablet mg 12/02/24 omega-3 fatty acids-fish oil 300 cap 12/02/24 mg-1,000 mg capsule omeprazole 40 mg capsule,delayed mg 12/02/24 release testosterone cypionate 200 mg/mL mg 12/02/24 intramuscular oil Allergies Allergy/AdvReac Type Severity Reaction Status Date / Time No Known Drug Allergies Allergy Verified 12/02/24 19:52 Review of Systems ROS Status of ROS 10 or more systems reviewed and unremarkable except as noted in history and below PFSH PFSH Social History Little interest or pleasure in doing things: not at all Feeling down, depressed, or hopeless: not at all Exam Constitutional Vital Signs, click to edit/add: Last Vital Signs Temp 98.3 F 12/02/24 19:46 Pulse 93 H 12/02/24 19:46 Resp 18 12/02/24 19:46 BP 164/95 H 12/02/24 19:46 Pulse Ox 94 L 12/02/24 19:46 O2 Del Method Room Air 12/02/24 19:46 Common normals: no apparent distress, oriented x3, no limitations, healthy appearing, alert and well nourished [facility] Face and sinus images:  1. right parietal scalp lac 2. small cut on nose. no swelling. some dry blood in nasal canal. no active bleeding Other: teeth intact. No obvious cut or lac of the tongue Eye Common normals: PERRL, EOMs intact bilaterally and conjunctivae normal Neck & C-Spine Common normals: full ROM Chest Common normals: inspection of chest normal and palpation of chest normal Respiratory Common normals: normal respiratory effort, no retractions, no use of accessory muscles and clear to auscultation bilaterally Cardio Common normals: regular rate, regular rhythm, S1 normal heart sound and S2 normal heart sound GI Common normals: Normal to inspection, nondistended, normoactive bowel sounds present, soft to palpation and non-tender Extremity Common normals: normal to inspection and full ROM Neuro Common normals: oriented x3, CN's II-XII intact bilaterally, moves all extremities and no focal motor deficits Psych Appearance: grossly normal Course Vital Signs Vital signs: Vital Signs Temperature 98.3 F 12/02/24 19:46 Pulse Rate 93 H 12/02/24 19:46 Respiratory Rate 18 12/02/24 19:46 Blood Pressure 164/95 H 12/02/24 19:46 Pulse Oximetry 94 L 12/02/24 19:46 Oxygen Delivery Method Room Air 12/02/24 19:46 Temperature 98.3 F 12/02/24 19:46 Pulse Rate 93 H 12/02/24 19:46 Respiratory Rate 18 12/02/24 19:46 Blood Pressure 164/95 H 12/02/24 19:46 Pulse Oximetry 94 L 12/02/24 19:46 Oxygen Delivery Method Room Air 12/02/24 19:46 MDM - Fall MDM Narrative Medical decision making narrative: patient presents after syncopal episode. he admits to drinking alcohol most of the he loss his breath and passed out. Struck his head and face . He believes he was not out long and immediately got back up. He was alone. States in the past he has had similar episodes of loosing his breath when smoking marijuana but has not passed out. He feels well and is refusing any lab testing. States he only came in because family convinced him he needed stitches of his scalp CT report retuns with no acute findings related to brain or C-spine minimal opacification of mastoid air cells bilat. facial CT with finding of soft tissue air anterior to the anterior nasal spine. Patient does have small cut on the nose that does not require repair. Will treat prophylatically with Augmentin and have him follow up with his doctor next week Discharge Plan Discharge Chief Complaint: Fall Clinical Impression: Laceration of nose, Laceration of scalp, Syncope Patient Disposition: Home, Self-Care Prescriptions / Home Meds: No Action levothyroxine 175 mcg tablet omeprazole 40 mg capsule,delayed release(DR/EC) levothyroxine 150 mcg tablet testosterone cypionate 200 mg/mL oil fluoxetine 20 mg capsule nabumetone 500 mg tablet omega-3 fatty acids-fish oil 300-1,000 mg capsule cholecalciferol (vitamin D3) 50 mcg (2,000 unit) capsule Creon 36,000-114,000- 180,000 unit capsule,delayed release(DR/EC) PO Print Language: Yoruba Instructions: Laceration (ED), Syncope (ED), Laceration Without Closure (ED) Additional Instructions: have scalp wound rechecked in 2-3 days and wayne removed in 10 days Referrals: [facility] [Primary Care Provider, Family Practice] - 1 week Procedures ED Procedure Instructions Procedures Procedures: right parietal scalp lac. 4cm SQ . 1% lido with epi. cleaned with betadine, rinsed with saline and closed with # 7 wayne
--- NOTE | 2024-12-02 20:09 | PC.NURSE ---
pt alert and appropriate
[2024-12-02] MEDS: DIPHTH,PERTUSS(ACELL),TET VAC 0.5 ML SYRINGE IM (20:28)
[2024-12-02] MEDS: LIDOCAINE HCL 1%-EPINEPHRINE 1:100,000 20 ML MDV 10 ML INJ (21:21)
[2024-12-02] MEDS: AMOXICILLIN/POT CLAV 875-125 MG TABLET 1 TAB PO (23:27)
== END 2024-12-02 23:29 | disposition home or self-care (01) ==
PROVIDERS: Emergency Provider Internal Medicine; PCP Nurse Practitioner Family
DX: S01.21XA Laceration without foreign body of nose, initial encounter (principal); S01.01XA Laceration without foreign body of scalp, initial encounter; R55 Syncope and collapse; W19.XXXA Unspecified fall, initial encounter
CPT/HCPCS: 70450; 70486; 72125; 90471; 99284

== ENCOUNTER 2024-12-20 10:44 | Outpatient (OUT) | payer OTHER, SELFPAY ==
--- OUTSIDE RECORDS SUMMARY | 2024-12-11 05:30 | XMS_ITS ---
Author Organization [facility] [place] Address [address] [place] [address] Care Team Providers Care Electric Clock Mechanic Name Role Phone Kira Heredia Primary Care Provider [phone] Allergies No Known Allergies REASON FOR VISIT SELF PAY follow up to 7 wayne in his head, per patient no issues with the wayne or head injury Medications Medication SIG (Take, Route, Frequency, Duration) Notes Start Date End Date Status Omeprazole 40 MG Oral for 30 Days Active Testosterone Cypionate 200 MG/ML 1 mL Intramuscular every other week for 28 days 08/21/2024 Active Fish Oil 1000 MG TAKE 1 CAPSULE BY [facility] THREE TIMES DAILY FOR 30 DAYS for 30 Active Levothyroxine Sodium 175 MCG TAKE 1 [...] TWICE DAILY Oral for 100 Days Active Wellbutrin XL 150 MG 1 tablet in the mor josias Orally Once a day for 30 days 09/27/2024 Active Social History Tobacco Use: Social History [...] past year? Monthly or less (1 point) How many drinks did you have on a typical day when you were drinking in the past year? 3 or 4 drinks (1 point) How often did you have six o r more drinks on one occasion in the past year? 4 or more times a week (4 points) Points 6 Interpretation Positive Vital Signs Blood pressure systolic 124 mm Hg 12/12/19 25 Blood pressure diastolic 80 mm Hg 025 Height 67 in 12/11/2024 Weight 223.8 lbs 12/11/2024 BMI 35.05 kg/m2 12/11/2024 Encounters Encounter Location Date Provider Diagnosis [facility] [address] [place] [address] 12/11/2024 Kira Heredia Stapled skin wound T14.8XXA Assessments Encounter Date Diagnosis (ICD Code) Assessment Notes Treatment Notes Treatment Clinical Notes Section Notes 12/11/2024 Stapled skin wound (ICD-10 - T14.8XXA) 7 wayne removed patient tolerated well Plan Of Treatment Treatment Notes Assessment Notes Stapled skin wound 7 wayne removed patient tolerated well Next Appt Details Follow Up: prn, Reason: Progress Notes * Kody ENCARNACIONDOB: 1 (54 yo M)Acc No.[id number]:12/11/2024 Progress Note Patient: Kody PAVON Provider: Herrera Heredia ([facility]), [employer] :1970 A ge:54 Y S ex:Male Date:12/11/2024 Address:[address] [place], [place] [address] Check In:09:22 AM ESTCheck O ut:09:57 AM EST Subjective: * Chief Complaints: * 1 . SELF PAY follow up to 7 wayne in his head, per patient no issues with the wayne or head injury. * HPI: G eneral: here for staple removal questions about ER imaging. * ROS: G eneral/Constitutional: Fever d enies. H eadache d enies. W eight loss?denies. O phthalmologic: Discharge d enies. E ye [...] M uscle aches d enies. S kin: ... 7 wayne to right scalp. R suzette d enies. S kin lesion(s) d enies. * Active Problem List E03.9 Hypothyroidism Modified On:04/22/2023U Status:confirmed G47.30 Sleep apnea Modified On:04/08/2023U Status:confirmed E78.1 Hypertriglyceridemia Modified On:04/22/2023U Status:confirmed G43.909 Migraine Modified On:04/17/2024U Status:confirmed K58.9 Irritable bowel Modified On:04/17/2024U Status:confirmed E55.9 Vitamin D deficiency Modified On:04/20/2024U Status:confirmed E29.1 Low testosterone Modified On:04/26/2024U Status:confirmed M15.9 Polyarticular osteoa rthritis Modified On:05/01/2024/U Status:confirmed M79.2 Neuralgia Modified On:06/18/2024U Status:confirmed F41.8 Anxiety and depressi on Modified On:09/27/2024U Status:confirmed R53.82 Chronic fatigue Modified On:09/27/2024U Status:confirmed E66.9 Class 1 obesity Modified On:09/27/2024/U Status:confirmed F17.200 Nicotine addiction Modified On:12/07/2024W/U Status:confirmed Z72.89 Alcohol use Modified On:12/07/2024/U Status:confirmed F12.90 Marijuana use Modified On:12/07/2024U Status:confirmed * Medical History: M edical History Verified. * Surgical History: d enies . * [...] es H ow often did you have a drink containing alcohol in the past year? M onthly or less (1 point) H ow many drinks did you have on a typical day when you were drinking in the past year? 3 or 4 drinks (1 point) H ow often did you have six or more drinks on one occasion in the past year? 4 or more times a week (4 points) P oints 6 I nterpretation P ositive * Medications: T aking BD Syringe/Needle(Syringe/Needle (Disp)) 23G X 1 3 ML Miscellaneous as directed , Taking Cholestyramine 4 GM/DOSE Powder TAKE FOUR GRAM BY MOUTH TWICE DAILY Oral , Taking Fish Oil 1000 MG Capsule TAKE 1 CAPSULE BY MOUTH THREE TIMES DAILY FOR 30 DAYS , Taking Levothyroxine Sodium 175 MCG Capsule TAKE 1 TABLET BY MOUTH EVERY DAY , Taking Omeprazole 40 MG Capsule Delayed Release Oral , Taking Testosterone Cypionate 200 MG/ML Solution 1 mL Intramuscular every other week , Taking Vitamin D3 Super Strength 50 MCG (1999 UT) Capsule 1 capsule Orally Once a day , Taking Wellbutrin XL(buPROPion HCl ER (XL)) 150 MG Tablet Extended Release 24 Hour 1 tablet in the morning Orally Once a day , Medication List reviewed and reconciled with the patient * Allergies: N .K.D.A. Objective: * Vitals: W t:223.8lbs, Ht: 67 in, BP:124/80mm Hg, BMI:35.05Index, Ht-cm: 170.18 cm, Wt-k.52 kg. * Examination: G eneral Examinations: GENERAL APPEARANCE: a lert and oriented, i n no acute distress. EYES: c onjunctiva normal, sclera non-icteric. NOSE: n ormal external appearance. LUNGS: c lear to auscultation bilaterally. CARDIO: r egular rate and rhythm, S1, S2 normal. MUSCULOSKELETAL: G ait and station normal. SKIN: w arm and dry, 7 wayne to right side scalp, laceration well approx, small amt dried drainage, no redness. Assessment: * Assessment: 1. S tapled skin wound - T14.8XXA (Primary) Plan: * Treatment: * Preventive Medicine: Screenings/Counseling: B TX ACTION PLAN Above Normal BMI Follow-up D ietary management education, guidance, and counseling T OBACCO ACTION PLAN Patient counselled on the dangers of tobacco use and urged to quit. . * Follow Up: p rn * * Electronically signed by Pinky Heredia , CAT[employer], WARPING MILL OPERATOR.[employer].[id number] on 12/13/2024 at 11:56 AM EDT Sign off status: Completed Visit Status: C HK (Check Out) true * Provider: Herrera Heredia ([facility]), [employer] Date: 12/11/2024 Generated for Keisha garcia/Claribel/eTransmitting on: 12/20/2024 10:48 AM EDT History and Physical Notes * HPI (History of Present Illness) Category Sub-Category Detail Notes Category Not es General here for staple removal questions about ER imaging Examination Category Sub-Category Detail Notes Category Not es General Examinations GENERAL APPEARANCE: alert a nd oriented, in no acute distress EYES: conjunctiva normal, sclera non-icteric EARS: NOSE: normal external appe arance THROAT: CARDIO: regular rate and rhy thm, S1, S2 normal LUNGS: clear to auscultatio n bilaterally ABDOMEN: SKIN: warm and dry, 7 stap les to right side scalp, laceration well approx, small amt dried drainage, no redness BACK: MUSCULOSKELETAL: Gait and station nor mal LYMPH NODES:
--- OUTSIDE RECORDS SUMMARY | 2024-12-13 09:00 | XMS_ITS ---
Author Organization [facility] in [place] Address [address] [place] [address] Care Team Providers Care Residential Building Inspector Name Role Phone Kira Heredia Primary Care Provider [phone] Encounters Encounter Location Date Provider Diagnosis [facility] [address] [place] [address] 12/13/2024 Kira Heredia Plan Of Treatment No Information Progress Notes * Kody ENCARNACIONDOB: 1 (54 yo M)Acc No.[id number]:12/13/2024 Patient: Kody PAVON :1970 A ge:54 Y S ex:Male Address:[address], [place] [address] * true * Date: Generated for Printi ng/Faxing/eTransmitting on: 0 12/20/2024 10:49 AM EDT
--- OUTSIDE RECORDS SUMMARY | 2024-12-17 04:10 | XMS_ITS ---
Author Organization [facility] in [place] Address [address] [place] [address] Care Team Providers Care Yard Demurrage Clerk Name Role Phone Kira Heredia Primary Care Provider REASON FOR VISIT CT facial bones Encounters Encounter Location Date Provider Diagnosis [facility] [address] [place] [address] 12/17/2024 Kira Heredia Face pain R51.9 Assessments Encounter Date Diagnosis (ICD Code) Assessment Notes Treatment Notes Treatment Clinical Notes Section Notes 12/17/2024 Face pain (ICD-10 - R51.9) Plan Of Treatment Pending Test Test Name Order Date CT Facial Bones w/o Contrast 12/17/2024 Progress Notes * Kody ENCARNACIONDOB: 1 (54 yo M)Acc No.[id number]:12/17/2024 Patient: Kody PAVON :1970 A ge:54 Y S ex:Male Address:[address] [place] [address], [place] [address] Subjective: * Chief Complaints: * C T [...]
--- OUTSIDE RECORDS SUMMARY | 2024-12-19 04:52 | XMS_ITS ---
Author Organization [facility] in [place] Address [address] [place] [address] Care Team Providers Care Housekeeping Coordinator Name Role Phone Kira Heredia Primary Care Provider REASON FOR VISIT repeat thyroid labs Encounters Encounter Location Date Provider Diagnosis [address] [address] 12/19/2024 Kira Heredia Plan Of Treatment No Information Progress Notes * Kody ENCARNACIONDOB: 1 (54 yo M)Acc No.[id number]:12/19/2024 Patient: Kody PAVON :1970 A ge:54 Y S ex:Male Address:[address], [place] [address] * true * Date: Generated for Maddyi ng/Fapamelag/eTransmitting on: 0 12/20/2024 10:47 AM EDT
--- OUTSIDE RECORDS SUMMARY | 2024-12-19 10:15 | XMS_ITS ---
Author Organization [facility] Address [address] [place] [address] Care Team Providers Care Juke Box Servicer Name Role Phone John Cartagena Unavailable [phone] Kira Heredia Unavailable Unavailable Allergies No Known Allergies REASON FOR VISIT right upper extremity EMG Social History Tobacco Use: Social History Observation [...] Question Answer Notes Tobacco use: Current smoker Encounters Encounter Location Date Provider Diagnosis 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 I discussed that I would not expect a carpal tunnel release particularly given the findings to alleviate his symptoms. I have recommended get back to drywalling and exacerbate his symptoms and follow-up next week to see if we can localize the source of his pain particularly given the MRI normal for the low-grade changes. 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 I discussed that I would not expect a carpal tunnel release particularly given the findings to alleviate his symptoms. I have recommended get back to drywalling and exacerbate his symptoms and follow-up next week to see if we can localize the source of his pain particularly given the MRI normal for the low-grade changes. Import medication Next Appt Details Follow Up: 1 Week, Reason: Provider Name:John Martínez and, 12/26/2024 03:00:00 PM, [address] [facility] , [place] [address], [place], [address], Progress Notes * TATE ENCARNACIONDOB: 1 (54 yo M)Acc No.[id number]:12/19/2024 Patient: TATE PAVON Provider: Heena Cartagena MD :1970 A ge:54 Y S ex:Male Date:12/19/2024 Address:[address] [place], [place] [id number] Subjective: * Chief Complaints: * 1 . right upper extremity EMG. * HPI: G enbobo Follow Up Information: Patient presents today for follow-up of his right upper extremity EMG. Continues to have right hand pain. He reports he has been off of work since last week because of the severity of his pain. He is unable to describe any specifics including the character of the pain or whether or not he has been having tingling. * Medical History: H ypothyroidism, GI Problems: [...] obacco use: C urrent smoker. * Medications: N one * Allergies: N .K.D.A. Objective: * Vitals: * Examination: G eneral examination: E xamination today of his right hand reveals no swelling. He has full wrist and finger range of motion. He has no tenderness to palpation throughout his wrist but in the dorsal compartments of the wrist the wrist joint and the MP joints. He has a negative median nerve compression test and negative Phalen's test today. X -ray Imaging Studies: E MG study was reviewed and shows minimal carpal tunnel syndrome and remote T8 radiculopathy. Assessment: * Assessment: 1. R ight hand paresthesia - R20.2 (Primary) Plan: * Treatment: * Follow Up: 1 Week Forms: * Images: * Electronic signature of Sami Cartagena MD on 12/20/2024 at 09:36 AM EDT Sign off status: Pending * Provider: Heena Cartagena MD Date: 0 12/19/2024 Generated for Keisha garcia/Claribel/Yanniransmitting on: 0 12/20/2024 09:36 AM EDT History and Physical Notes * HPI (History of Present Illness) Category Sub-Category Detail Notes Category Not es General Follow Up Information Patient presents tod ay for follow-up of his right upper extremity EMG. Continues to have right hand pain. He reports he has been off of work since last week because of the severity of his pain. He is unable to describe any specifics including the character of the pain or whether or not he has been having tingling. Examination Category Sub-Category Detail Notes Category Not es General examination Examinat ion today of his right hand reveals no swelling. He has full wrist and finger range of motion. He has no tenderness to palpation throughout his wrist but in the dorsal compartments of the wrist the wrist joint and the MP joints. He has a negative median nerve compression test and negative Phalen's test today. X-ray Imaging Studies EMG st udy was reviewed and shows minimal carpal tunnel syndrome and remote T8 radiculopathy
--- OUTSIDE RECORDS SUMMARY | 2024-12-20 05:45 | XMS_ITS ---
Author Organization [facility] [place] Address [address] [place] [address] Care Team Providers Care Molding Manager Name Role Phone Kira Heredia Primary Care Provider Reid Meyer Unavailable [phone] Allergies No Known Allergies REASON FOR VISIT SELF PAY Pinky pt- right hip pain and down into the leg, When laying down both hips hurt, back and shoulders hurt as well, Did have a fall three weeks ago, not sure if from that Medications Medication SIG (Take, Route, Frequency, Duration) Notes Start Date End Date Status Daypro 600 MG 2 tablets Orally teodora ly for 20 days 12/20/2024 Active Fish Oil 1000 MG TAKE 1 CAPSULE BY [facility] THREE TIMES DAILY FOR 30 DAYS for 30 Active Cholestyramine 4 GM/DOSE TAKE FOUR GRAM BY MOUTH TWICE DAILY Oral for 100 Days Active BD Syringe/Needle 23G X 1 3 ML as directed for 90 days 06/21/2024 Acti ve predniSONE 20 MG 3 tablets Orally Onc e a day for 5 days 12/20/2024 Active Wellbutrin XL 150 [...] Oral for 30 Days Active Levothyroxine Sodium 175 MCG TAKE 1 TABLET BY MOUTH EVERY DAY for 30 days Active tiZANidine HCl 4 MG 2 tabs Orally qhs fo r 30 days 12/20/2024 Active Social History Tobacco [...] W/U Status Risk Notes Problem Lumbar radiculopathy (711147911) Lumbar radiculopathy (M54.16) Active confirmed Vital Signs Blood pressure systolic 122 mm Hg 12/21/19 Blood pressure diastolic 78 mm Hg 025 Height 67 in 12/20/2024 Weight 229.0 lbs 12/20/2024 BMI 35.86 kg/m2 12/20/2024 Encounters Encounter Location Date Provider Diagnosis [facility] [address] [place] [address] 12/20/2024 Reid Meyer Lumbar radiculopathy M54.16 Assessments [...] Notes Daypro 600 MG 2 tablets Orally daily for 20 days 5 predniSONE 20 MG 3 tablets Orally Once a day for 5 days tiZANidine HCl 4 MG 2 tabs Orally qhs for 30 days 12/21/19 Treatment Notes Assessment Notes Other Recommended to rest and use a heating pad on the area. Take NSAIDs for pain as needed Pending Test Test Name Order Date XR LSPINE MIN 4 VIEWS 12/20/2024 Progress Notes * SHASHANKKody MCKNIGHTDOB: 1 (54 yo M)Acc No.[id number]:12/20/2024 UNLOCKED PROGRESS NOTE Progress Note Patient: Kody PAVON Provider: Woodrow Meyer ([facility])MD :1970 A ge:54 Y S ex:Male Date:12/20/2024 Address:[address] [place], [place] [id number] Pcp:Kiar Heredia Check In:09:36 AM ESTCheck O ut:10:31 AM EST Subjective: * Chief Complaints: * 1 . SELF PAY Pinky pt- right hip pain and down into the leg. 2. When laying down both hips hurt, back and shoulders hurt as well. 3. Did have a fall three weeks ago, not sure if from that. * HPI: G eneral: Fell and hit head - waynearia mullen in last 4 days has had [...] heezing d enies. M usculoskeletal: Comments S [facility] for details. N eurologic: Dizziness d enies. F ainting d enies. H eadache?denies. * Medical History: M edical History Verified. [...] Allergies: N .K.D.A. Objective: * Vitals: W t:229.0lbs, Ht: 67 [...] NSAIDs for pain as needed ? * Preventive Medicine: Screenings/Counseling: B ME ACTION PLAN Above Normal BMI Follow-up D ietary management education, guidance, and counseling * * Electronic signature of Reid Meyer MD, [id number] on 12/20/2024 at 10:47 AM EDT Sign off status: Pending Visit Status: C HK (Check Out) * Provider: Woodrow Meyer ([facility])MD Date: 12/20/2024 Generated for Keisha garcia/Claribel/Antonetteitting on: 12/20/2024 10:47 AM EDT History and Physical Notes * HPI (History of Present Illness) Category Sub-Category Detail Notes Category Not es General Fell and hit head - wayne palce in last 4 days has had increasing pain into both legs - worse in R - Examination Category Sub-Category Detail Notes Category Not es General Examination GENERAL APPEARANCE: in no ac eklutna distress, well developed, well nourished CARDIO: S1, S2 normal, no mu rmurs, rubs, gallops LUNGS: clear to auscultatio n bilaterally NEUROLOGIC: alert, oriented to t kimberly, place, & person EXTREMITIES: no clubbing, cyanosi s, or edema MUSCULOSKELETAL: Poor romin b ack due to pain -
--- OUTSIDE RECORDS SUMMARY | 2024-12-20 10:47 | XMS_ITS | Patient Health Record ---
Author Organization [facility] Address [address] [place] [address] Care Team Providers Care Shopper Marketing Manager Name Role Phone CartagenaJohn valencia Unavailable [phone] Kira Heredia Unavailable Unavailable xxEduardo Zita Unavailable [...] Lab: Notes/Report: MRI : Hand W/O Contrast [facility] t - [id number] Reviewed date:08/29/2024 09:42:38 AM Interpretation: Performing Lab: Notes/Report: Reason For Referral Reason APPROVED.........PLE ASE OBTAIN AUTHORIZATION FOR MRI RIGHT HAND Diagnosis 1 Swelling of right bonds nd (M79.89) Referral Organization [facility] Referring Provider First Name John Referring Provider Last Name Cartagena Referring Provider Speciality Orthopedic Surgery Referred Organization [facility] molly Referred Address [place], [place], Procedure 1 MRI Upper Ext NON-Cindy int w/o Dye ([id number]) General Notes Marie Morris 025 02:49:42 PM >NEED DICTATION, Marie Morris 05/28/2024 02:52:50 PM >PENDING R[facility] TRX # [id number] CLINICAL ATTACHED.............NEED DICTATION TO UPLOADSukhjinder Kimberly 05/28/2024 03:23:43 PM >Printed for Brooklyn Ahumada Monica 05/29/2024 12:14:20 PM >DONEAlexandra Amy 05/29/2024 12:32:29 PM >CLINICAL UPLOADED, Marie Morris 05/30/2024 07:51:05 AM >STILL PENDINGAlexandra Amy 05/31/2024 07:20:27 AM >APPROVED PER RAYO AUTH #[id number] VALID 05/28/2024-08/26/2024 COPY IN CHART MA NOTIFIED [...] [facility] [place] SCHEDULING Referred Address [address] [place] [address], General Notes Vonda Barahona 2024 09:14:14 AM > FAXEDSukhjinder Kimberly 10/26/2024 09:30:21 AM >Received a call from Cheryl with [employer]. [facility] in [place] is in network with [employer]. Faxed referral to them. Notified patient. Referral Priority Routine Social History Tobacco Use: Social History Observation [...] Problem Status W/U Status Risk Notes Problem [id number] Right hand paresthesia (R20.2) Active confirmed Problem [id number] Swelling of right hand (M79.89) Active confirmed Problem Fall, initial encounter (W19.XXXA) Active confirmed Vital Signs Height 5'6 in 09/10/2024 Weight 225 lbs 09/10/2024 BMI 36.31 09/10/2024 Encounters Encounter Location Date Provider Diagnosis [facility] [facility] [address] [place] [address] 12/19/2024 John Cartagena Right hand paresthesia R20.2 [facility] Office [address] [place] [address] 05/14/2024 John Cartagena Other bursitis of knee, left knee M70.52 ; Stiffness of right hand joint M25.641 and Swelling of right hand M79.89 [facility] [address] [facility] [address] [place] [address] 05/28/2024 Zita Carter Swelling of right hand M79.89 and Fall, initial encounter W19.XXXA [facility] Office [address] [place] [address] [place] [address] 09/10/2024 John Cartagena Right hand paresthesia R20.2 [facility] [address] [place] [address] 05/25/2024 John Cartagena Assessments Encounter Date Diagnosis (ICD Code) Assessment Notes Treatment Notes Treatment Clinical Notes Section Notes 05/28/2024 Swelling of right hand (ICD-10 - M79.89) Right hand pain and swelling after fall 05/28/2024 Fall, initial encounter (ICD-10 - W19.XXXA) Right hand pain and swelling after fall 09/10/2024 Right hand paresthesia (ICD-10 - R20.2) 12/19/2024 Right hand paresthesia (ICD-10 - R20.2) 05/14/2024 Stiffness of right hand joint (ICD-10 - M25.641) 05/14/2024 Other bursitis of knee, left knee (ICD-10 - M70.52) 05/14/2024 Swelling of right hand (ICD-10 - M79.89) 12/19/2024 Other Patient reports that due to [...] normal for the low-grade changes. Import medication 05/14/2024 Other For his right [...] Name Order Date EMG/NCS Upper Extremity, Right Next Appt Details Provider Name:John Martínez and, 12/26/2024 03:00:00 PM, [address] [facility] , [place] [address], [place], [address], Insurance Providers Payer Name Payer Address Payer Phone Subscriber Number Group Number Insured Name Patient Relationship to Insured Coverage Start Date Coverage End Date [employer] [address] [address] [place] [address] [id number] TATE ENCARNACION Self - patient is the insured Medical (General) History Medical History History ICD Code Hypothyroidism GI Problems: Depression Sleep apnea CPAP Machine: Yes
--- OUTSIDE RECORDS SUMMARY | 2024-12-20 10:47 | XMS_ITS | Encounter Summary ---
Author Organization [facility] Address [address] [place] [address] Care Team Providers Care Geothermal Heat Pump Machinist Name Role Phone Kira Heredia MD Unavailable [phone] Unallocated, Noms Gianluca ROMERO Primary Care Provi radha Ajsmin Loco DO Unavailable [phone] Encounter Details Date Type Department Care Team (Late st Contact Info) Description 08/31/2024 Orders Only [facility] [address] [address] [place] [id number] Kira Heredia MD [address] [place], [place] [id number] Social History Tobacco Use Types Packs/Day Years [...] on filedocumented in this encounter Care Teams Geothermal Heat Pump Machinist Relationship Specialty Start Date End Date Unallocated, Nomsofya Hough MD [address] [place] [address] PCP - General Family Medicine 04/19/24 Kira Heredia MD [address] [place] [phone] Referring Physician Family Medicine 04/19/24 Loco Castellanos DO [address] [address] Referring Physician Neurology 05/17/24 documented as of this encounter
--- OUTSIDE RECORDS SUMMARY | 2024-12-20 10:49 | XMS_ITS | Patient Health Record ---
Author Organization The [facility] in [place] Address [address] [place] [address] Care Team Providers Care President & [employer] Name Role Phone Kira Garrison Primary Care Provider Betsy Reid Caballero [phone] Allergies No Known Allergies Results Component Value Reference Range Notes XR HAND RT MIN 3V Reviewed date:04/17/2024 04:06:04 PM Interpretation: Performing Lab: Notes/Report: Source Facility: [place] [address] XRay Report Signed Patient: KODY ENCARNACION MR#: [id number] : 1970 Acct:[id number] Age/Sex: 53 / M ADM Date: 04/17/24 Loc: LAB Attending Dr: KIRA GARRISON Ordering Physician: KIRA GARRISON Date of Service: 04/17/24 Procedure(s): XR hand RT min 3V Accession Number(s): [id number] cc: KIRA GARRISON [place] [address] Patient Name: KODY ENCARNACION MRN: [id number] date: 1970 Sex: M Assigned Patient Location: LAB Current Patient Location: LAB Accession/Order Number: [id number] Exam Date: 04/17/2024 10:25 Report Date: 04/17/2024 [...] M.D. Signed By: 04/17/241534 DD/ 31 TD/TT: Tier Lift Operator: [place] [address] XRay Report Signed Patient: ANNETTE ENCARNACION MR#: [id number] : 1970 Acct:[id number] Age/Sex: 53 / M ADM Date: 04/17/24 Loc: LAB Attending Dr: KIRA GARRISON Ordering Physician: KIRA GARRISON Date of Service: 04/17/24 Procedure(s): XR miller d RT min 3V Accession Number(s): [id number] cc: KIRA GARRISON [place] [address] Patient Name: KODY ENCARNACION MRN: [id number] date: 1970 Sex: M Assigned Patient Location: LAB Current Patient Loca tion: LAB Accession/Order Numb er: [id number] Exam Date: 04/17/2024 10:25 Report Date: 04/17/2024 [...] Signed By: 04/17/24 1535 DD/ 1532 TD/TT: Tier Lift Operator: XR KNEE LT 3V Reviewed date:04/17/2024 04:05:58 PM Interpretation: Performing Lab: Notes/Report: Source Facility: [place] [address] XRay Report Signed Patient: KODY ENCARNACION MR#: [id number] : 1970 Acct:[id number] Age/Sex: 53 / M ADM Date: 04/17/24 Loc: LAB Attending Dr: KIRA GARRISON Ordering Physician: KIRA GARRISON Date of Service: 04/17/24 Procedure(s): XR knee LT 3V Accession Number(s): [id number] cc: KIRA GARRISON [place] [address] Patient Name: KODY ENCARNACION MRN: [id number] date: 1970 Sex: M Assigned Patient Location: LAB Current Patient Location: LAB Accession/Order Number: [id number] Exam Date: 04/17/2024 10:25 Report Date: 04/17/2024 [...] Signed By: 04/17/24 1535 DD/ 153 TD/TT: Tier Lift Operator: [place] [address] XRay Report Signed Patient: ANNETTE ENCARNACION MR#: [id number] : 1970 Acct:[id number] Age/Sex: 53 / M ADM Date: 04/17/24 Loc: LAB Attending Dr: KIRA GARRISON Ordering Physician: KIRA GARRISON Date of Service: 04/17/24 Procedure(s): XR kne e LT 3V Accession Number(s): [id number] cc: KIRA GARRISON [place] [address] Patient Name: KODY ENCARNACION MRN: [id number] date: 1970 Sex: M Assigned Patient Location: LAB Current Patient Loca tion: LAB Accession/Order Numb er: [id number] Exam Date: 04/17/2024 10:25 Report Date: 04/17/2024 [...] Signed By: 04/17/24 1535 DD/ 153 TD/TT: Tier Lift Operator: GLYCOHEMOGLOBIN A1C Reviewed date:04/17/2024 12:59:36 PM Interpretation: Performing Lab: Notes/Report: [facility] , Glycohemoglobin A1C 6.1 4.5-6.2 % > 7.0 ADA THERAPEUTIC TARGET < 7.0 ADA RECOMMENDED LIMIT 4.0 - 6.0 ACTION SUGGESTED Estimated Average Glucose 128 Performing Lab: see note ML - [facility] LB PSA SCREENING Reviewed date:04/17/2024 12:59:36 PM Interpretation: Performing Lab: Notes/Report: [facility] , Prostate Specific Antigen Scrn 0.22 <=4.00 ng/mL Performing Lab: see note ML - [facility] LB Vitamin B12 Reviewed date:04/18/2024 09:12:24 AM Interpretation: Performing Lab: Notes/Report: [facility] , Vitamin B12 383 183-9423 pg/mL Performed at: - [facility] Arch Cushion Press Operator: Atul Reid PhD, Phone: [phone] [address] [place], [place] [phone] Performing Lab: see note - [facility] LB LAB TESTING Reviewed date:04/30/2024 03:58:21 PM Interpretation: Performing Lab: Notes/Report: [id number] METABOLIC PANEL 14, COMPREHENSIVE [facility] , Miscellaneous Test SEE SCANN ED REPORT Performing Lab: see note LC - [facility] LB MR head/brain wo con Reviewed date:05/11/2024 12:35:06 PM Interpretation: Performing Lab: Notes/Report: Source Facility: [facility] [place] [address] [place] [address] Magnetic Resonance Report Signed Patient: KODY ENCARNACION MR#: [id number] : 1970 Acct:[id number] Age/Sex: 53 / M ADM Date: 05/08/24 Loc: MRI Attending Dr: KIRA GARRISON Ordering Physician: KIRA GARRISON Date of Service: 05/08/24 Procedure(s): MR head/brain wo con Accession Number(s): [id number] cc: KIRA GARRISON [address] [address] Patient Name: KODY ENCARNACION MRN: [id number] date: 1970 Sex: M Assigned Patient Location: MRI Current Patient Location: MRI Accession/Order Number: [id number] Exam Date: 05/08/2024 09:00 Report Date: 05/08/2024 [...] Signed By: 05/08/24 1302 DD/ 1259 TD/TT: Tier Lift Operator: [address] [address] Magnetic Resonance Report Signed Patient: ANNETTE ENCARNACION MR#: [id number] : 1970 Acct:[id number] Age/Sex: 53 / M ADM Date: 05/08/24 Loc: MRI Attending Dr: KIRA GARRISON Ordering Physician: KIRA GARRISON Date of Service: 05/08/24 Procedure(s): MR head/brain wo con Accession Number(s): [id number] cc: KIRA GARRISON [place] [id number] Patient Name: KODY ENCARNACION MRN: [id number] date: 1970 Sex: M Assigned Patient Location: MRI Current Patient Loca tion: MRI Accession/Order Numb er: [id number] Exam Date: 05/08/2024 09:00 Report Date: 05/08/2024 [...] Signed By: 05/08/24 1302 DD/ 1259 TD/TT: Tier Lift Operator: CBC AUTO DIFF Reviewed date:05/22/2024 08:17:45 AM Interpretation: Performing Lab: Notes/Report: [facility] , White Blood Count 5.8 [...] 10 3/uL Performing Lab: see note - [facility] RHEUMATOID FACTOR Reviewed date:05/22/2024 08:17:45 AM Interpretation: Performing Lab: Notes/Report: [facility] , Rheumatoid Factor (RF) 13.8 <14.0 IU/mL [address] [place] [phone] Arch Cushion Press Operator: Atul Reid PhD, Phone: [phone] Performed at: [facility] Performing Lab: see note [facility] LB Erythrocyte Sedimentation Ra te Reviewed date:05/22/2024 08:17:45 AM Interpretation: Performing Lab: Notes/Report: [facility] , Erythrocyte Sedimentation Rate 16 <=20 mm/hr Performing Lab: see note - [facility] LB HLA B 27 Disease Association Reviewed date:05/22/2024 08:17:45 AM Interpretation: Performing Lab: Notes/Report: [facility] , HLA B 27 Disease Association Negative . by the Food and Drug Administration. Arch Cushion Press Operator: Elizabeth Quevedo PhD, Phone: [phone] The FDA has determined that such clearance or approval is supplemental method when necessary. technique. Sequence Based Typing (SBT) may be used as a This test was developed and its performance characteristics (PCR) and Sequence Specific Oligonucleotide Probes (SSOP) [address] [place], [place] [id number] This test was performed using Polymerase Chain Reaction determined by [facility]. It has not been cleared or approved Performed at: [address] [place] [address] DNA not necessary. B27 allele interpretation for all loci based on IMGT/HLA database version 3.51.0 HLA Lab CLIA ID Number [id number] If you have questions, please call HLA customer service at or email at [email or web address]. HLA-B*27 Negative Performing Lab: see note - [facility] LB CBC AUTO DIFF Reviewed date:06/06/2024 09:35:27 AM Interpretation: Performing Lab: Notes/Report: [facility] , White Blood Count 7.2 [...] Performing Lab: see note ML - [facility] LB FREE T3 Reviewed date:06/06/2024 09:35:27 AM Interpretation: Performing Lab: Notes/Report: [facility] , Free T3 1.80 2.18-3.98 pg/mL Performing Lab: see note ML - [facility] LB LIPID PROFILE Reviewed date:06/06/2024 09:35:27 AM Interpretation: Performing Lab: Notes/Report: [facility] , Triglycerides 1473 <=150 mg/dL Cholesterol 245 <=200 mg/dL HDL Cholesterol 36 40-60 mg/dL > or =60 mg/dl - LOW CARDIOVASCULAR RISK <40 mg/dl - HIGH CARDIOVASCULAR RISK VLDL CHOLESTEROL 294.6 Chol HDL Ratio 6.8 7.1 - 11.0 MODERATE RISK 4.4 - 7.1 AVERAGE RISK 3.3 - 4.4 LOW RISK >11.0 HIGH RISK Performing Lab: see note ML - [facility] LB T4 Reviewed date:06/06/2024 09:35:27 AM Interpretation: Performing Lab: Notes/Report: [facility] , T4 Thyroxine 0.90 4.50-12.10 ug/dL Performing Lab: see note ML - [facility] LB TSH Reviewed date:06/06/2024 09:35:27 AM Interpretation: Performing Lab: Notes/Report: [facility] , Thyroid Stimulating Hormone 46.230 0.358-3.740 uIU/mL Performing Lab: see note ML - [facility] LB MR ward RT wo con Reviewed date:08/31/2024 11:57:15 AM Interpretation: Performing Lab: Notes/Report: Source Facility: [facility] [place] [address] [place] [address] Magnetic Resonance Report Signed Patient: KODY ENCARNACION MR#: [id number] : 1970 Acct:[id number] Age/Sex: 53 / M ADM Date: 08/31/24 Loc: MRI Attending Dr: KIRA GARRISON Ordering Physician: KIRA GARRISON Date of Service: 08/31/24 Procedure(s): MR hand RT wo con Accession Number(s): [id number] cc: KIRA GARRISON [place] [id number] Patient Name: KODY ENCARNACION MRN: [id number] date: 1970 Sex: M Assigned Patient Location: MRI Current Patient Location: MRI Accession/Order Number: [id number] Exam Date: 08/31/2024 11:25 Report Date: 08/31/2024 [...] Xie M.D. 08/31/2024 11:33 AM Dictation Location: [place] [address] Electronically authenticated by: [id number] Y Date: 08/31/2024 11:33 Dictated By: Ken Xie M.D. Signed By: 08/31/24 1135 DD/ 1133 TD/TT: Tier Lift Operator: [place] [address] Magnetic Resonance Report Signed Patient: ANNETTE ENCARNACION MR#: [id number] : 1970 Acct:[id number] Age/Sex: 53 / M ADM Date: 08/31/24 Loc: MRI Attending Dr: KIRA GARRISON Ordering Physician: KIRA GARRISON Date of Service: 08/31/24 Procedure(s): MR angela meraz RT wo con Accession Number(s): [id number] cc: KIRA GARRISON [place] [address] Patient Name: KODY ENCARNACION MRN: [id number] date: 1970 Sex: M Assigned Patient Location: MRI Current Patient Loca tion: MRI Accession/Order Numb er: [id number] Exam Date: 08/31/2024 11:25 Report Date: 08/31/2024 [...] Xie M.D. 08/31/2024 11:33 AM Dictation Location: [place] [address] Electronically authenticated by: [id number] Y Date: 08/31/2024 11:33 Dictated By: Ken Xie M.D. Signed By: 08/31/24 1135 DD/ 1133 TD/TT: Tier Lift Operator: YVONNE veronika perf SPECT rest str Reviewed date:09/06/2024 12:53:58 PM Interpretation: Performing Lab: Notes/Report: Source Facility: [place] [address] Nuclear Medicine Report Signed Patient: KODY ENCARNACION MR#: [id number] : 1970 Acct:[id number] Age/Sex: 54 / M ADM Date: 09/04/24 Loc: NM Attending Dr: KIRA GARRISON Ordering Physician: KIRA GARRISON Date of Service: 09/04/24 Procedure(s): NM veronika perf SPECT rest str Accession Number(s): [id number] cc: KIRA GARRISON Patient Name: KODY ENCARNACION MR#: [id number] : 1970 Exam Date: 09/04/2024 Ordering Doctor: KIRA GARRISON [facility] RADIOLOGY REPORT PROCEDURE: NM VERONIKA PERF [...] the study was pending per attending physician [facility]. For more details, please see separate [...] M.D. Signed By: 09/05/241652 DD/ 51 TD/TT: Tier Lift Operator: [place] [address] Nuclear Medicine Report Signed Patient: ANNETTE ENCARNACION MR#: [id number] : 1970 Acct:[id number] Age/Sex: 54 / M ADM Date: 09/04/24 Loc: NM Attending Dr: KIRA GARRISON Ordering Physician: KIRA GARRISON Date of Service: 09/04/24 Procedure(s): NM veronika perf SPECT rest str Accession Number(s): [id number] cc: KIRA GARRISON Patient Name: KODY ENCARNACION MR#: [id number] : 1970 Exam Date: 09/04/2024 Ordering Doctor: SUREKHA GARRISON [facility] RADIOLOGY REPORT PROCEDURE: NM VERONIKA PE [...] study was pendin g per attending physician [facility]. For more details, please see separate [...] M.D. Signed By: 09/05/241652 DD/ 51 TD/TT: Tier Lift Operator: CBC AUTO DIFF Reviewed date:08/13/2024 11:42:12 AM Interpretation: Performing Lab: Notes/Report: [facility] , White Blood Count 4.7 [...] Performing Lab: see note ML - [facility] LB DIRECT LDL Reviewed date:06/06/2024 09:35:27 AM Interpretation: Performing Lab: Notes/Report: [facility] , LDL Cholesterol Direct 49 <100 mg/dl OPTIMAL 100-129 mg/dl NEAR OR ABOVE OPTIMAL 160-189 mg/dl HIGH >190 mg/dl VERY HIGH 130-159 mg/dl BORDERLINE HIGH Performing Lab: see note ML - [facility] LB PROF CHEM 8 (BAS METB) Reviewed date:05/22/2024 08:17:45 AM Interpretation: Performing Lab: Notes/Report: [facility] , Sodium 138 136-145 mmol/L [...] Performing Lab: see note ML - [facility] LB CRP Reviewed date:05/22/2024 08:17:45 AM Interpretation: Performing Lab: Notes/Report: [facility] , C Reactive Protein <0.50 <=0.50 mg/dL Performing Lab: see note ML - [facility] LB MARY by IFA Reviewed date:05/22/2024 08:17:18 AM Interpretation: Performing Lab: Notes/Report: [facility] , Antinuclear Antibodies, IFA Negative . International Consensus on Antinuclear Antibody (MARY) Borderline 1:80 Negative <1:[address] [place] [phone] Patterns (ICAP). For more information about Hep-2 cell patterns use ANApatterns.org, the official website for the Positive >1:80 Arch Cushion Press Operator: Atul Reid PhD, Phone: [phone] Performed at: [facility] nomenclature: AC-0 Performing Lab: see note LC - [facility] LB Occult Blood* Reviewed date:04/19/2024 12:06:25 PM Interpretation: Performing Lab: Notes/Report: [facility] , Occult Blood Negative Performing Lab: see note ML - [facility] LB VITAMIN D 25 [place] Reviewed date:04/17/2024 12:59:36 PM Interpretation: Performing Lab: Notes/Report: [facility] , Vitamin D 21.6 30-100 ng/mL Vit D sufficient <20 ng/mL Vit D deficient >100 ng/mL Potential Toxicity 20-<30 ng/mL Vit D insufficient Performing Lab: see note ML - [facility] LB TSH Reviewed date:04/17/2024 12:59:36 PM Interpretation: Performing Lab: Notes/Report: [facility] , Thyroid Stimulating Hormone 27.573 0.358-3.740 uIU/mL Performing Lab: see note ML - [facility] LB T4 Reviewed date:04/17/2024 12:59:36 PM Interpretation: Performing Lab: Notes/Report: [facility] , T4 Thyroxine 4.30 4.50-12.10 ug/dL Performing Lab: see note ML - [facility] LB LIPID PROFILE Reviewed date:04/17/2024 12:59:36 PM Interpretation: Performing Lab: Notes/Report: [facility] , Triglycerides 3317 <=150 mg/dL Cholesterol 301 <=200 mg/dL HDL Cholesterol 27 40-60 mg/dL > or =60 mg/dl - LOW CARDIOVASCULAR RISK <40 mg/dl - HIGH CARDIOVASCULAR RISK VLDL CHOLESTEROL 663.4 Chol HDL Ratio 11.1 >11.0 HIGH RISK 3.3 - 4.4 LOW RISK 7.1 - 11.0 MODERATE RISK 4.4 - 7.1 AVERAGE RISK Performing Lab: see note ML - [facility] LB LAB TESTING Reviewed date:04/18/2024 09:12:23 AM Interpretation: Performing Lab: Notes/Report: [id number] URIC ACID [facility] , Miscellaneous Test COMMENT . Uric Acid 8.2 mg/dL CB Performed at: [facility] Therapeutic target for gout patients: <6.0 Test Ordered: [id number] Uric Acid Arch Cushion Press Operator: Atul Reid PhD, Phone: [phone] [address] [place], [place] [phone] Reference Range: 3.8-8.4 Performing Lab: see note - [facility] LB INSULIN Reviewed date:04/18/2024 09:12:23 AM Interpretation: Performing Lab: Notes/Report: [facility] , Insulin 15.6 2.6-24.9 uIU/mL Performed at: [facility] Arch Cushion Press Operator: Atul Reid PhD, Phone: [phone] [address] [place], [place] [phone] Performing Lab: see note - [facility] LB FREE T3 Reviewed date:04/17/2024 12:59:36 PM Interpretation: Performing Lab: Notes/Report: [facility] , Free T3 2.15 2.18-3.98 pg/mL Performing Lab: see note - [facility] LB DIRECT LDL Reviewed date:04/17/2024 12:59:36 PM Interpretation: Performing Lab: Notes/Report: [facility] , LDL Cholesterol Direct 49 <100 mg/dl OPTIMAL 100-129 mg/dl NEAR OR ABOVE OPTIMAL 160-189 mg/dl HIGH 130-159 mg/dl BORDERLINE HIGH >190 mg/dl VERY HIGH Performing Lab: see note - [facility] LB CBC AUTO DIFF Reviewed date:04/17/2024 12:59:36 PM Interpretation: Performing Lab: Notes/Report: [facility] , White Blood Count 5.8 [...] 3/uL Performing Lab: see note ML - [facility] LB IRON Reviewed date:04/17/2024 12:59:36 PM Interpretation: Performing Lab: Notes/Report: [facility] , Iron 129.0 65.0-175.0 ug/dL Performing Lab: see note ML - [facility] LB TSH Reviewed date:11/12/2024 01:02:20 PM Interpretation: Performing Lab: Notes/Report: [facility] , Thyroid Stimulating Hormone 10.166 0.358-3.740 uIU/mL Performing Lab: see note ML - [facility] LB T4 Reviewed date:11/12/2024 01:02:51 PM Interpretation: Performing Lab: Notes/Report: [facility] , T4 Thyroxine 4.10 4.50-12.10 ug/dL Performing Lab: see note ML - [facility] FREE T3 Reviewed date:11/12/2024 01:02:51 PM Interpretation: Performing Lab: Notes/Report: [facility] , Free T3 2.00 2.18-3.98 pg/mL Performing Lab: see note ML - [facility] LB TSH Reviewed date:09/27/2024 04:10:29 PM Interpretation: Performing Lab: Notes/Report: [facility] , Thyroid Stimulating Hormone 20.514 0.358-3.740 uIU/mL Performing Lab: see note ML - [facility] LB T4 Reviewed date:09/27/2024 04:10:37 PM Interpretation: Performing Lab: Notes/Report: [facility] , T4 Thyroxine 3.30 4.50-12.10 ug/dL Performing Lab: see note ML - [facility] LB FREE T3 Reviewed date:09/27/2024 04:10:37 PM Interpretation: Performing Lab: Notes/Report: [facility] , Free T3 2.13 2.18-3.98 pg/mL Performing Lab: see note ML - [facility] LB PROLACTIN Reviewed date:09/12/2024 10:18:42 AM Interpretation: Performing Lab: Notes/Report: [facility] , Prolactin 18.3 3.6-25.2 ng/mL [address] [place] [phone] Arch Cushion Press Operator: Atul Reid PhD, Phone: [phone] Performed at: [facility] Performing Lab: see note [facility] Testosterone Reviewed date:08/13/2024 11:42:12 AM Interpretation: Performing Lab: Notes/Report: [facility] , Testosterone 168 264-916 ng/dL Adult male reference interval is based on a population of [id number]. healthy nonobese males (BMI <30) between 19 and 39 years Arch Cushion Press Operator: Atul Reid PhD, Phone: [phone] [address] [place] [phone] old. gus Levy.al. [facility] 2017,102;1386-2627. PMID: Performed at: [facility] Performing Lab: see note [facility] TSH Reviewed date:08/13/2024 11:42:12 AM Interpretation: Performing Lab: Notes/Report: [facility] , Thyroid Stimulating Hormone 24.729 0.358-3.740 uIU/mL Performing Lab: see note ML - [facility] LB T4 Reviewed date:08/13/2024 11:42:12 AM Interpretation: Performing Lab: Notes/Report: [facility] , T4 Thyroxine 3.10 4.50-12.10 ug/dL Performing Lab: see note ML - [facility] LB PSA SCREENING Reviewed date:08/13/2024 11:42:12 AM Interpretation: Performing Lab: Notes/Report: [facility] , Prostate Specific Antigen Scrn 0.44 <=4.00 ng/mL Performing Lab: see note ML - [facility] LB LIPID PROFILE Reviewed date:08/13/2024 11:42:12 AM Interpretation: Performing Lab: Notes/Report: [facility] , Triglycerides 1318 <=150 mg/dL Cholesterol 215 <=200 mg/dL HDL Cholesterol 37 40-60 mg/dL <40 mg/dl - HIGH CARDIOVASCULAR RISK > or =60 mg/dl - LOW CARDIOVASCULAR RISK VLDL CHOLESTEROL 263.6 Chol HDL Ratio 5.8 4.4 - 7.1 AVERAGE RISK >11.0 HIGH RISK 3.3 - 4.4 LOW RISK 7.1 - 11.0 MODERATE RISK Performing Lab: see note ML - [facility] FREE T3 Reviewed date:08/13/2024 11:42:12 AM Interpretation: Performing Lab: Notes/Report: [facility] , Free T3 2.47 2.18-3.98 pg/mL Performing Lab: see note ML - [facility] LB DIRECT LDL Reviewed date:08/13/2024 11:42:12 AM Interpretation: Performing Lab: Notes/Report: [facility] , LDL Cholesterol Direct 50 <100 mg/dl OPTIMAL 130-159 mg/dl BORDERLINE HIGH >190 mg/dl VERY HIGH 160-189 mg/dl HIGH 100-129 mg/dl NEAR OR ABOVE OPTIMAL Performing Lab: see note ML - [facility] Reason For Referral Reason headache for 6 month s Diagnosis 1 Migraine (G43.909) Referral Organization [facility] Referring Provider First Name Kira Referring Provider Last Name Yan Referring Provider [facility] icine Referred Provider Kenzie Null Referred Provider Specialty Neurology Referral Priority Routine Reason IBS Diagnosis 1 Irritable bowel (K58 .9) Referral Organization [facility] Referring Provider First Name Kira Referring Provider Last Name Yan Referring Provider [facility] iciayesha Referred Provider Cristobal Moncada Referred Provider Specialty Gastroentero logy Referral Priority Routine Diagnosis 1 Irritable bowel (K58 .9) Referral Organization [facility] Referring Provider First Name Kira Referring Provider Last Name Yan Referring Provider [facility] iciayesha Referred Provider Alejandra Hayden Referred Provider Specialty Gastroentero logy Referral Priority Routine Diagnosis 1 Left knee pain (M25. 562) Referral Organization [facility] Referring Provider First Name Kira Referring Provider Last Name Yan [facility] Referred Provider John [place] Referred Provider Specialty Orthopedic S urgery Referral Priority Routine Diagnosis 1 Polyarticular osteoa rthritis (M15.9) Referral Organization [facility] Referring Provider First Name Kira Referring Provider Last Name Yan Referring [facility] Referred Provider Abdi Duke Referred Provider Specialty Rheumatology Referral Priority Routine Diagnosis 1 Hand pain (M79.643) Referral Organization [facility] Referring Provider First Name Kira Referring Provider Last Name Yan Referring Provider [facility] Referred Provider Jose Pfeiffer) Referred Provider Specialty Orthopedic S urgery General Notes Taylor Bennett 2024 08:40:44 AM >Second Opinion Referral Priority Routine Reason MALCOLM, fatigue Diagnosis 1 Sleep apnea (G47.30) Referral Organization [facility] Referring Provider First Name Kira Referring Provider Last Name Yan Referring [facility] Referred Provider Kenzie Null Referred Provider Specialty Sleep Medici ne Referral Priority Routine Medications Medication SIG (Take, Route, Frequency, Duration) Notes Start Date End Date Status Daypro 600 MG 2 tablets Orally teodora ly for 20 days 12/20/2024 Active Wellbutrin XL 150 MG [...] Oil 1000 MG TAKE 1 CAPSULE BY [facility] THREE TIMES DAILY FOR 30 DAYS for 30 Active Cholestyramine 4 GM/DOSE TAKE FOUR GRAM BY MOUTH TWICE DAILY Oral for 100 Days Active BD Syringe/Needle 23G X 1 3 ML as directed for 90 days 06/21/2024 Acti ve tiZANidine HCl 4 MG 2 tabs Orally qhs fo r 30 days 12/20/2024 Active predniSONE 20 MG 3 tablets Orally Onc e a day for 5 days 12/20/2024 Active Social History Tobacco Use: [...] week (4 points) Points 6 Interpretation Positive Problems Problem Type SNOMED Code ICD Code Onset Dates Problem Status W/U Status Risk Notes Problem Hypothyroidism (39842291) Hypothyroidism (E03.9) Active confirmed Problem Sleep apnea (40429334) Sleep apnea (G47.30) Active confirmed Problem Vitamin D deficiency (63859581) Vitamin D deficiency (E55.9) Active confirmed Problem Migraine (88601378) Migraine (G43.909) Active c onfirmed Problem Chronic fatigue syndrome (43518736) Chronic fatigue (R53.82) Active confirmed Problem Lumbar radiculopathy (596547713) Lumbar radiculopathy (M54.16) Active confirmed Problem Hypertriglyceridemia (257010917) Hypertriglyceridemia (E78.1) Active confirmed Problem Tobacco user (578190554) Nicotine addiction (F17.200) Active confirmed Problem Low testosterone (365790921) Low testosterone (E29.1) Active confirmed Problem Neuralgia (58551595) Neuralgia (M79.2) Active c onfirmed Problem Irritable bowel (59340985) Irritable bowel (K58.9) Active confirmed Problem Mixed anxiety and depressive disorder (190635209) Anxiety and depression (F41.8) Active confirmed Problem 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) Active confirmed Problem Obese class I (finding) (836642486329412) Class 1 obesity (E66.9) Active confirmed Problem Polyarticular osteoarthritis (308652389) Polyarticular osteoarthritis (M15.9) Active confirmed Problem Current drinker of alcohol (916474) Alcohol use (Z72.89) Active confirmed Vital Signs Blood pressure diastolic 78 mm Hg 12/20/2024 Height 67 in 12/20/2024 Blood pressure systolic 122 mm Hg 12/20/2024 Weight 229.0 lbs 12/20/2024 BMI 35.86 kg/m2 12/20/2024 Procedures Procedure Date Ordered Date Performed Result Body Sit e CARDIO Stress Test - Treadmill Exercise 06/13/2024 N/A *CARDIO Stress Test - Cardiolite 08/27/2024 N/A Encounters Encounter Location Date Provider Diagnosis [facility] [address] [place] [address] 11/12/2024 Kira Garrison Hypothyroidism E03.9 [facility] [address] [place] [address] 12/13/2024 Kira Garrison [facility] [address] [place] [address] 12/17/2024 Kira Garrison Face pain R51.9 [facility] [address] [place] [address] 12/19/2024 Kira Garrison [facility] [address] [place] [address] 08/31/2024 Kira Garrison [facility] [address] [place] [address] 09/06/2024 Kira Garrison [facility] [address] [place] [address] 09/10/2024 Kira Garrison [facility] [address] [place] [address] 09/24/2024 Kira Garrison Low testosterone E29 .1 [facility] [address] [place] [address] 09/27/2024 Kira Garrison Hypothyroidism E03.9 [facility] [address] [place] [address] 11/06/2024 Kira Garrison Abnormal thyroid blo od test R94.6 [facility] [address] [place] [address] 06/28/2024 Kira Garrison [facility] [address] [facility] [place] [address] 07/24/2024 Kira Garrison [facility] [address] [facility] [place] [address] 08/06/2024 Reid Betsy Low testosterone E29 .1 [facility] [address] [facility] [place] [address] 08/09/2024 Kira Garrison Low testosterone E29 .1 [facility] [address] [facility] [place] [address] 08/21/2024 Kira Garrison Hypothyroidism E03.9 and Low testosterone E29.1 [facility] [address] [facility] [place] [address] 08/27/2024 Kira Garrison Hand pain M79.643 [facility] [address] [facility] [place] [address] 06/04/2024 Kira Garrison Wellness examination Z00.00 and Hypothyroidism E03.9 [facility] [address] [facility] [place] [address] 06/06/2024 Kira Garrison Hypothyroidism E03.9 and Hypertriglyceridemia E78.1 [facility] [address] [place] [address] 06/08/2024 Kira Garrison Hypertriglyceridemia E78.1 [facility] [address] [facility] [place] [address] 06/12/2024 Reid Meyer [facility] [address] [facility] [place] [address] 06/13/2024 Kira Garrison [facility] [address] [facility] [place] [address] 06/18/2024 Kira Garrison Fatigue R53.83 and L ow testosterone E29.1 [facility] [address] [facility] [place] [address] 04/18/2024 Kira Garrison Irritable bowel K58. 9 [facility] [address] [facility] [place] [address] 04/19/2024 Kira Garrison [facility] [address] [facility] [place] [address] 04/23/2024 Kira Garrison [facility] [address] [facility] [place] [address] 04/30/2024 Kira Garrison Left knee pain M25.5 62 and Polyarticular osteoarthritis M15.9 [facility] [address] [facility] [place] [address] 05/11/2024 Kira Garrison [facility] [address] [facility] [place] [address] 06/28/2024 Reid Meyer Low testosterone E29 .1 [facility] [address] [facility] [place] [address] 07/12/2024 Reid Meyer Low testosterone E29 .1 [facility] [address] [facility] [place] [address] 07/24/2024 Kira Garrison Low testosterone E29 .1 [facility] [address] [facility] [place] [address] 08/16/2024 Kira Garrison Low testosterone E29 .1 [facility] [address] [facility] [place] [address] 08/30/2024 Kira Garrison Low testosterone E29 .1 [facility] [address] [facility] [place] [address] 12/20/2024 Reid Meyer Lumbar radiculopathy M54.16 [facility] [address] [facility] [place] [address] 04/17/2024 Kira Garrison Wellness examination Z00.00 ; Migraine G43.909 ; Right hand pain M79.641 ; Left knee pain M25.562 ; Irritable bowel K58.9 and Depression F32.A [facility] [address] [facility] [place] [address] 04/20/2024 Kira Garrison Right hand pain M79. 641 ; Hypertriglyceridemia E78.1 ; Left knee pain M25.562 ; Hypothyroidism E03.9 and Vitamin D deficiency E55.9 [facility] [address] [place] [address] 06/13/2024 Kira Garrison Fatigue R53.83 ; Low testosterone E29.1 ; Sleep apnea G47.30 and Hypothyroidism E03.9 [facility] [address] [place] [address] 08/27/2024 Kira Garrison Intermittent chest p ain R07.9 ; Fatigue R53.83 and Right hand pain M79.641 [facility] [address] [place] [address] 09/27/2024 Kira Garrison Hypothyroidism E03.9 ; Sleep apnea G47.30 ; Low testosterone E29.1 ; Anxiety and depression F41.8 and Chronic fatigue R53.[address] [address] 12/07/2024 Kira Garrison Stapled skin wound T 14.8XXA [address] [address] 12/11/2024 Kira Yan Stapled skin wound T 14.8XXA Assessments Encounter Date Diagnosis (ICD Code) Assessment [...] wait check vit D level stress test 12/07/2024 Stapled skin wound (ICD-10 - T14.8XXA) fu Tuesday for removal will review images 12/11/2024 Stapled skin wound (ICD-10 - T14.8XXA) 7 wayne removed patient tolerated well 12/20/2024 Lumbar radiculopathy (ICD-10 - M54.16) 04/18/2024 Irritable bowel (ICD -10 - K58.9) [...] E29.1) 08/21/2024 Hypothyroidism (ICD- 10 - E03.9) 09/27/2024 Hypothyroidism (ICD- 10 - E03.9) 09/27/2024 Sleep apnea (ICD-10 - G47.30) willing to revisit 08/27/2024 Hand pain (ICD-10 - M79.643) 09/24/2024 Low testosterone (ICD-10 - E29.1) 09/27/2024 Hypothyroidism (ICD- 10 - E03.9) 11/06/2024 Abnormal thyroid blo od test (ICD-10 - R94.6) 11/12/2024 Hypothyroidism (ICD- 10 - E03.9) 12/17/2024 Face pain (ICD-10 - R51.9) 09/27/2024 Low testosterone (ICD-10 - E29.1) DR Wilder now treating this 08/21/2024 Low testosterone (ICD-10 - E29.1) 06/04/2024 [...] Other need GI and rheum OV notes 12/20/2024 Other Recommended to rest and use a heating pad on the area. Take NSAIDs for pain as needed Plan Of Treatment Pending Test Test Name Order Date CMP (COMPLETE METABOLIC PANEL) 5 CMP (COMPLETE METABOLIC PANEL) 3 HEMOGLOBIN A1C (GLYCO) 04/17/2024 HEMOGLOBIN A1C (GLYCO) 04/08/2023 INSULIN, TOTAL 04/17/2024 INSULIN, TOTAL 04/08/2023 LIPID PANEL (CHOL/TRIG/HDL/LDL) 04/08/20 23 LIPID PANEL (CHOL/TRIG/HDL/LDL) 06/04/19 25 LIPID PANEL (CHOL/TRIG/HDL/LDL) 04/17/19 25 CBC WITH DIFF 04/17/2024 CBC WITH DIFF 06/04/2024 CBC WITH DIFF 04/08/2023 PSA, PROSTATE-SPECIFIC ANTIGEN 3 URIC ACID 04/08/2023 URIC ACID 04/17/2024 MRI Hand RT w/o contrast 08/27/2024 CARDIO Stress Test - Treadmill Exercise 06/13/2024 CT Facial Bones w/o Contrast 12/17/2024 PSA, TOTAL 04/17/2024 STOOL OCCULT BLOOD 04/17/2024 VITAMIN B12 04/21/2023 VITAMIN B12 04/17/2024 VITAMIN B12 04/08/2023 MRI BRAIN WO CON 04/17/2024 XR LSPINE MIN 4 VIEWS 12/20/2024 THYROID PANEL (T4/TSH/FREE T3) 4 THYROID PANEL [...]
--- OUTSIDE RECORDS SUMMARY | 2024-12-20 10:49 | XMS_ITS | Clinical Summary ---
Author Organization [facility] Healthcare Address [address] [place] [address] Care Team Providers Care [employer] Name Role Phone Kira Heredia MD Unavailable [phone] Unallocated, [facility] Provider Primary Care Provi radha Loco Castellanos DO Unavailable [phone] Allergies No known active allergies Medications cholecalciferol [...] 1970 Influenza Vaccine (#1) 2024 Insurance [employer] Care Teams [employer] Relationship Specialty Start Date End Date Unallocated, [place] MD Gianluc[address] [place], [place] [id number] PCP - General Family Medicine 04/19/24 Kira Heredia MD [address] [place] [address] Referring Physician Family Medicine 04/19/24 Loco Castellanos DO [address] [place] [address] Referring Physician Neurology 05/17/24
--- OUTSIDE RECORDS SUMMARY | 2024-12-20 11:25 | XMS_ITS | CCD ---
Author Organization [facility] Care Team Providers Care 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 Name Role Phone NADERER, LUIS ANTONIO A Unavailable Unavailable NADERER, LUIS ANTONIO A Unavailable Unavailable NADERER, LUIS ANTONIO A Unavailable Unavailable NADERER, LUIS ANTONIO A Unavailable Unavailable NADERER, LUIS ANTONIO A Unavailable Unavailable NADERER, LUIS ANTONOI A Unavailable Unavailable NADERER, LUIS ANTONIO A [...] Attending Unavailable Rita Haydend A. Attending Unavailable Jackelyn Mohamad A. Admitting Unavailable Kira Garrison MD Unavailable Unallocated , Noms Provider Primary Care [facility] Sandra Castellanos DO Unavailable [phone] Alejandra Hayden A. Referring Unavailable Ji SIMON Attending Unavailable Jackelyn Mohamad A. Attending Unavailable Jackelyn Mohamad A. Referring Unavailable Jackelyn, Mohamad A. Admitting Unavailable SANDRA CASTELLANOS Attending Unavailable KIRA GARRISON Referring Unavailable JAZLYN WILBURN Attending Unavailable GENOVEVA CARTAGENA Referring Unavailable JAZLYN WILBURN Attending Unavailable GENOVEVA CARTAGENA Referring Unavailable JAZLYN WILBURN Attending Unavailable GENOVEVA CARTAGENA C Referring Unavailable JAZLYN WILBURN Attending Unavailable AMADEO GENOVEVA C Referring Unavailable Ji SIMON Attending Unavailable Jackelyn Mohamad A. Admitting Unavailable Alejandra Hayden Attending Unavailable Alejandra Hayden Referring Unavailable Alejandra Hayden Admitting Unavailable Alejandra Hayden Attending Unavailable Alejandra Hayden Attending Unavailable Lesley, González Cadena Attending Unavaila ble Sarmini, González Cadena Attending Unavaila ble Sarmini, González Regaladoal Attending Unavaila ble SIMON, Ji R Attending Unavailable SIMON, iJ R Attending Unavailable SIMON, Ji R Attending Unavailable SIMON, Ji R Attending Unavailable SIMON, Ji R Attending Unavailable SIMON, Ji R Attending Unavailable Iniguez, Jorge L Rahman Attending Unavailable Iniguez, Jorge L Rahman Referring Unavailable Iniguez, Jorge L Rahman Admitting Unavailable Allergies Allergy Classification Reported Allergen(s) Allergy Type Date of Onset Reaction(s) Facility (5 sources) No Known Medication Allergies; Translations: [No Known Medication Allergies] Propensity to adverse reactions (disorder) [facility] Repository Medications Current Medications Medication Drug Class(es) Dates Sig (Normalized) Sig (Original) amylase 789493 unt / lipase 11344 unt / protease [id number] unt delayed release oral capsule (5 sources) Start: 07-17-2024 Creon 36,000 units oral delayed release capsule 2 cap(s), Oral, TID, 360 cap(s), Refill(s) 3, [facility], 170, cm, 07/17/24 13:04:00 EDT, Height/Length Dosing, 101, kg, 07/17/24 13:04:00 EDT, Weight Dosing Start Date: 07/17/24 Status: Ordered Quantity: 360.0 Unit: cap(s) Repeat number: 4 amylase 847008 UNT / lipase 76591 UNT / protease [id number] UNT Delayed Release Oral Capsule [Zenpep] (3 sources) Start: 04-30-2024 Zenpep 60,000 units-189,600 units-252,600 units oral delayed release capsule See Instructions, 300 cap(s), Refill(s) 3, Take 2 caps with each meal and 1 with each snack, [facility], 170, cm, 04/24/24 8:57:00 EST, [...] gm, Oral, BID, 378 gm, Refill(s) 11, [facility], 170, cm, 05/11/24 7:28:00 EST, Height/Length Dosing, 108.6, kg, 05/11/24 7:28:00 EST, Weight Dosing Start Date: 05/14/24 Status: Ordered Quantity: 378.0 Unit: g Repeat number: 12 Start: 04-24-2024 Questran 4 g/9 g oral powder = 1 packet(s), Oral, BID, # 60 EA, Refills(s) 0, Pharmacy: [facility], 170, cm, 04/24/24 8:57:00 EST, Height/Length Dosing, 108.6, kg, 04/24/24 8:57:00 EST, Weight Dosing Start Date: 04/24/24 Status: Ordered Quantity: 60.0 Unit: EA Repeat number: 1 Indications: Melena; Irritable bowel syndrome with diarrhea; Abdominal distension (gaseous); Gastro-esophageal reflux disease without esophagitis; Fish Oils (5 sources) Start: 08-16-2024 Fish Oil Oral, Refill(s) 0 Start Date: 08/16/24 Status: Ordered Repeat number: 1 FLUoxetine 20 mg oral capsule (19 sources) Serotonin Reuptake Inhibitor Start: 05-14-2024 take 1 capsule by mouth once daily FLUoxetine (PROzac) 20 MG capsule Take 20 mg by mouth Daily 05/14/2024 Active Start: 04-24-2024 take 20 mg by mouth once daily Prozac 20 mg, Oral, Daily, Refills(s) 0, Depression Start Date: 04/24/24 Status: Ordered Repeat number: 1 icosapent ethyl 1000 mg oral capsule (19 sources) Start: 04-24-2024 take 1 capsule by [...] evening. Take with meals. 04/20/2024 Active levothyroxine (19 sources) l-Thyroxine Start: 04-24-2024 levothyroxine Daily, Refills(s) 0, Thyroid Start Date: 04/24/24 Status: Ordered Repeat number: 1 Start: 04-24-2024 levothyroxine Daily, Refills(s) 0, Thyroid Start Date: 04/24/24 Status: Ordered Start: 04-24-2024 levothyroxine Daily, Refills(s) 0 Start Date: 04/24/24 Status: Ordered Start: 04-11-2024 take 1 tablet by katerina once daily levothyroxine (Synthroid, Levoxyl) 50 MCG tablet Take 50 mcg by mouth Daily 04/11/2024 Active meloxicam 15 mg oral tablet (7 sources) Nonsteroidal Anti-inflammatory Drug Start: 05-14-2024 take 1 tablet by mouth once daily Mobic 15 MG tablet Take 15 mg by mouth 1 (one) time each day at the same time 05/14/2024 Active omeprazole 40 mg delayed release oral capsule (14 sources) Proton Pump Inhibitor Start: 05-11-2024 take 1 capsule by mouth twice daily omeprazole 40 mg Cap-DR 40 mg = 1 cap(s), Oral, BID, # 180 cap(s), Refills(s) 3, Pharmacy: [facility], 170, cm, 05/11/24 7:28:00 EST, Height/Length Dosing, 108.6, kg, 05/11/24 7:28:00 EST, Weight Dosing Start Date: 05/11/24 Status: Ordered Quantity: 180.0 Unit: cap(s) Repeat number: 4 60 actuat testosterone 20.25 mg/actuat topical gel (2 sources) Androgen Start: 05-07-2024 AndroGel Pump 20.25 mg/1.25 g (1.62%) transdermal gel = 2 pump, Topical, qAM, # 75 gram, Refills(s) 3, Pharmacy: [facility], 165, cm, 05/07/24 9:19:00 EST, Height/Length Dosing, 108.1, kg, 05/07/24 9:19:00 EST, Weight Dosing Start Date: 05/07/24 Status: Ordered testosterone cypionate 200 mg/mL IM Claribel (2 sources) Start: 11-12-2024 testosterone cypionate 200 mg/mL IM Claribel 400 mg, IntraMuscular, q4wk, # 10 mL, Refills(s) 3, Pharmacy: [facility], 165, cm, 09/10/24 15:33:00 EDT, Height/Length Dosing, 108, kg, 09/10/24 15:33:00 EDT, Weight Dosing Start Date: 11/12/24 Status: Ordered Quantity: 10.0 Unit: mL Repeat number: 4 Indications: Testicular hypofunction; Vitamin D3 50 mcg (2000 intl units) oral tablet, chewable (12 sources) Start: 04-24-2024 take 1 tablet by [...] Sig (Original) tadalafil 20 mg oral tablet (8 sources) Phosphodiesterase 5 Inhibitor Start: 12-11-2024 take 1 tablet by mouth every hour as needed, then take 1 tablet by mouth every twenty-four hours as needed tadalafil 20 mg Tab 20 mg = 1 tab(s), Oral, As Directed, PRN for erectile dysfunction, Pt to take one tab 1 hour prior to sexual activity. Do not exceed 20mg in 24 hours., # 30 tab(s), Refills(s) 0, Pharmacy: [facility], 165, cm, 09/10/24 15:33:00 EDT, Height/Length Dosing, 108, kg, 09/10/24 15:33:00 EDT, Weight Dosing Start Date: 12/11/24 Status: Ordered Quantity: 30.0 Unit: tab(s) Repeat number: 1 Indications: Male erectile dysfunction, unspecified; Start: 09-10-2024 take 1 tablet by katerina th every hour as needed, then take 1 tablet by mouth every twenty-four hours as needed tadalafil 20 mg Tab 20 mg = 1 tab(s), Oral, As Directed, PRN for erectile dysfunction, Pt to take one tab 1 hour prior to sexual activity. Do not exceed 20mg in 24 hours., # 30 tab(s), Refills(s) 0, Pharmacy: [facility], 165, cm, 09/10/24 15:33:00 EDT, Height/Length [...] hours., # 30 tab(s), Refills(s) 0, Pharmacy: [facility], 165, cm, 05/07/24 9:19:00 EST, Height/Length Dosing, 108.1, kg, 05/07/24 9:19:00 EST, Weight Dosing Start Date: 05/07/24 Status: Ordered Problems Problem Classification Problem Date Documented Da te Episodic/Chronic Deficiency and other anemia (12 sources) Anemia of chronic disease 04-24-2024 Chronic Disorders of lipid metabolism (13 sources) Pure hyperglyceridemia; Translations: [Pure hyperglyceridemia] Onset: 5 Chronic Esophageal disorders (14 sources) Gastroesophageal reflux disease without esophagitis; Translations: [Gastro-esophageal reflux disease without esophagitis] Onset: 5 Chronic Essential hypertension (12 sources) Benign hypertension 04-24-2024 Chronic Gastrointestinal hemorrhage (7 sources) Melena; Translations: [Melena] Onset: Episodic Hyperplasia of prostate (10 sources) Benign prostatic hypertrophy with outflow obstruction; Translations: [Benign prostatic hyperplasia with lower urinary tract symptoms] Onset: 5 Chronic Malaise and fatigue (4 sources) Other fatigue; Translations: [OTHER FATIGUE] Onset: 8 Episodic Miscellaneous mental health disorders (20 sources) Psychosomatic factor in physical condition; Translations: [Psychological and behavioral factors associated with disorders or diseases classified elsewhere] Onset: 5 Chronic Other and unspecified benign neoplasm (7 sources) Polyp of colon; Translations: [Polyp of colon] Onset: 5 Episodic Other connective tissue disease (13 sources) Swelling of hand; Translations: [Other specified soft tissue disorders] Onset: 5 05-15-2024 Episodic Other connective tissue disease (2 sources) Neuralgia; Translations: [Neuralgia and neuritis, unspecified] 05-17-2024 Episodic Other endocrine disorders (2 sources) Testicular hypofunction; Translations: [Testicular hypofunction] Onset: 5 Chronic Other endocrine disorders (8 sources) Male hypogonadism 05-07-2024 Chronic Other gastrointestinal disorders (8 sources) Irritable bowel syndrome with diarrhea; Translations: [Irritable bowel syndrome with diarrhea] Onset: 5 Chronic Other gastrointestinal disorders (2 sources) Swollen abdomen; Translations: [Abdominal distension (gaseous)] Onset: 5 Episodic Other gastrointestinal disorders (12 sources) Abdominal bloating 04-24-2024 Episodic Other gastrointestinal disorders (12 sources) Black feces 04-24-2024 Episodic Other liver diseases (7 sources) Steatosis of liver; Translations: [Fatty (change of) liver, not elsewhere classified] Onset: 5 Chronic Other male genital disorders (9 sources) Acquired buried penis; 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] Onset: 5 Chronic Other male genital disorders (10 sources) Male erectile dysfunction, unspecified; Translations: [Erectile dysfunction] Onset: 5 Chronic Other non-traumatic joint disorders (13 sources) Stiffness of joint of right hand; Translations: [Stiffness of right hand, not elsewhere classified] Onset: 5 05-15-2024 Episodic Other nutritional; endocrine; and metabolic disorders (1 source) Obesity; Translations: [Other obesity due to excess calories] Onset: 5 Chronic Other nutritional; endocrine; and metabolic disorders (12 sources) Obesity caused by energy imbalance 04-24-2024 Chronic Other screening for suspected conditions (not mental disorders or infectious disease) (15 sources) Encounter for screening for malignant neoplasm [...] status] Onset: 5 Episodic Residual codes; unclassified (12 sources) Current drinker 04-24-2024 Episodic Thyroid disorders (5 sources) Hypothyroidism, unspecified; Translations: [HYPOTHYROIDISM UNSPECIFIED] Onset: 8 Chronic Unclassified (8 sources) Patient encounter status 05-07-2024 Results Test Name Value Interpretation Reference Range Facility Ambulatory Visit Summaryon 0 12-11-2024 Ambulatory Visit Summary Ambulatory Visit Summary TATE ENCARNACION :1970 Visit Date:12/11/2024 Ambulatory Visit Instructions Your Care Team Attending [...] capsule) tadalafil (tadalafil 20 mg Tab) testosterone (testosterone cypionate 200 mg/mL IM Claribel) Procedures Performed Colonoscopy (05/11/2024), Esophagogastroduodenoscopy (05/11/2024). What to do next Scheduled Follow-Up Appointments Tuesday 8:45 AM EDT With: Where: [facility] [address] [address]- Tuesday 3:15 PM EDT With: Ji SIMON MD Where: [facility] [address] [address]- Medications What How Much When Why Instructions [...] exceed 20mg in 24 hours. Unchanged testosterone (testosterone cypionate 200 mg/ mL IM Claribel) 400 Milligram Intramuscular Every 4 weeks Hypogonadism male Allergies No Known Allergies No Known Medication [...] signed up for this yet, please contact [employer] at [phone] to get signed up today. Language Information Language assistance services are available as needed. [facility] Reminderson 11-13-2024 Reminders Reminders From: Gina Barbosa [...] the same time. From: Gina Barbosa To: [facility] - Reminders/Recalls; Sent: 08/20/2024 17:06:58 EDT Subject: [...] patient to call back to schedule. [facility] Ambulatory Visit Summaryon 0 10-15-2024 Ambulatory [...] signed up for this yet, please contact [employer] at [phone] to get signed up today. Language Information Language assistance services are available as needed. [facility] Ambulatory Visit Summaryon 0 09-14-2024 Ambulatory [...] for choosing us for your care. [facility] Ambulatory Visit Summaryon 0 09-10-2024 Ambulatory [...] Follow Up with AURORA ROMERO, Ji Be, AV When: Comments: 4 mos w/ T level Where: [facility] [address] , [place] [address]- [phone] Medications What How Much When Why Instructions Unchanged tadalafil (tadalafil 20 mg Tab) 1 Tablets By Mouth As Directed as needed for for erectile dysfunction ED (erectile dysfunction) Pt to take one tab 1 hour prior to sexual activity. Do not exceed 20mg in 24 hours. Pickup at [facility] Unchanged cholecalciferol (Vitamin D3 50 mcg [...] physician if questions or concerns Pharmacy Information [facility]: [address] [place], [place] [phone] Allergies No Known Allergies No Known Medication [...] less testosteron (more content not included)... [facility] Urology Office/Clinic Noteon 09-10-2024 Urology Office/Clinic [...] -Cont Cialis wo changes. Refills sent to [facility] Alfred. 3. BPH with urinary obstruction (N40.1: Benign [...] Be, URL [facility] [address], [facility] [place] [address]- [phone] Additional Instructions: 4 mos w/ T level [...] Daily Von (more content not included)... [facility] Comment on above: Result Comment: Elec [...] all three at the same time. Normal [facility] Gastroenterology Office/Clin ic Noteon 08-16-2024 Gastroenterology [...] first-degree relative, we will send him to [facility] for genetic counseling the based on [...] inactivated - Not Given Patient Refuses [facility] Comment on above: Result Comment: Elec tronically Signed By: Lesley ROMERO, González Cadena\.br\Date and Time Signed: 08/16/24 14:02 EDT\.br\Electronically Co-Signed By: Syeda Chavez MA\.br\Date and Time Co-Signed: 08/16/24 13:53 EDT Ambulatory Visit Summaryon 0 4-08-2025 Ambulatory Visit Summary Ambulatory Visit Summary TATE [...] ROMERO, Ji Be Where: [facility] [place] [place] [address]- Medications What How Much When Why Instructions Changed pancrelipase (Creon 36,000 units oral delayed release capsule) 2 Capsules By Mouth 3 times a day Pickup at [facility] Unchanged cholecalciferol (Vitamin D3 50 mcg [...] physician if questions or concerns Pharmacy Information [facility]: [address] [place], [place] [phone] Allergies No Known Allergies No Known Medication [...] for choosing us for your care. [facility] Gastroenterology Office/Clin ic Noteon 07-17-2024 Gastroenterology [...] When Contact Information Lesley ROMERO, TRUDY Del Toro, MED In 6 weeks [address] [facility], [address] [address] [phone] Additional Instructions: Problem List/Past Medical History Ongoing [...] inactivated - Not Given Patient Refuses [facility] Comment on above: Result Comment: Elec tronically Signed By: Lesley ROMERO, González Cadena\.br\Date and Time Signed: 07/17/24 13:53 EDT\.br\Electronically Co-Signed By: Syeda Chavez MA\.br\Date and Time Co-Signed: 07/17/24 13:51 EDT Reminderson 06-05-2024 Reminders Reminders From: Glo Hilario I To: [facility] - Reminders/Recalls; Sent: 06/05/2024 08:25:46 EST Show up: 03/11/2031 08:25:00 EST Subject: Colonoscopy recall Due Date/Time: 05/11/2031 08:25:00 EST Reminder/Recall [address] Sutton 05/11/24 [facility] Gastroenterology Office/Clin ic Noteon 05-21-2024 Gastroenterology Office/Clinic Note Gastroenterology Office/Clinic Note Chief Complaint follow up to egd/colonoscopy HPI Staff Established patient is a(n) 53 year old male who presents today for a follow up to EGD & Colonoscopy on 05/11/24. Pt previously seen with Dr. Hayden, but insurance was denying EGD/Colon stating he was out of network for [employer]. Pt was r/s with Dr. Sutton. Fecal [...] recorded by (more content not included)... [facility] Comment on above: Result Comment: Elec tronically Signed By: González Sutton MD\.br\Date and Time Signed: 05/21/24 09:44 EST\.br\Electronically Co-Signed By: Syeda Chavez MA\.br\Date and Time Co-Signed: 05/21/24 09:42 EST Surgical Pathology Reporton 05-17-2024 Surgical Pathology Report [facility] [address] [place] [address]- Surgical Pathology Report Collected Date/Time: 05/11/2024 08:38 EST Pathologist: Triny Israel MD Received Date/Time: 05/11/2024 10:55 EKTA Sutton MD, González Sutton MD, González Cadena 07 Surgical [...] recognition technology and might contain unintended computerized desolderer errors. The use of one or more reagents in the above tests is regulated as an analyte specific reagent (ASR). The test or tests are ordered following initial H&E microscopic examination. The performance characteristics were determined by the [facility] of [facility] Surgical Pathology. They have not been cleared or approved by the US Food and Drug Administration. The FDA has determined that such clearance or approval is not necessary. These tests are used for clinical purposes. They should not be regarded as investigational or for research. Appropriate positive and negative co (more content not included)... [facility] Comment on above: Performed By: #### [id number] #### [facility] [address] [employer], [place] [id number] Discharge Instructionson Discharge Instructions Discharge Instructions TATE [...] 9:00 AM EST With: Lesley ROMERO, González Cdaena Where: [facility] [address] [place] [address] [address] [address]- Tuesday 9:45 AM EDT With: Ji SIMON MD Where: [facility] [address] [place] [address] [place] [address]- Medications What How Much When Why Instructions Next Dose New omeprazole (omeprazole 40 mg Cap-DR) 1 Capsules By Mouth 2 times a day Refills: 3 Pickup at [facility] Unchanged cholecalciferol (Vitamin D3 50 mcg [...] a day (in the morning) Pharmacy Information [facility]: [address] [place], [place] [phone] Test Results No qualifying data available. Allergies [...] tarry stool (more content not included)... [facility] Comment on above: Result Comment: Jose barrera Signed By: Cy SADLER, Mariama\.jeaneth\Date and Time [...] EST With: Lesley ROMERO, González Cadena Where: [facility] [address] [place] [address]- Tuesday 9:45 AM EDT With: AURORA ROMERO, Ji Be Where: [facility] [address] [facility] [place] [address] [place] [address]- Medications What How Much When Why Instructions Next Dose New omeprazole (omeprazole 40 mg Cap-DR) 1 Capsules By Mouth 2 times a day Refills: 3 Pickup at [facility] Unchanged cholecalciferol (Vitamin D3 50 mcg [...] a day (in the morning) Pharmacy Information [facility]: [address] [place], [place] [phone] Test Results No qualifying data available. Allergies [...] malt extra (more content not included)... [facility] Comment on above: Result Comment: Elec tronically Signed By: Cy SADLER, Mariama\.jeaneth\Date and Time Signed: 05/11/24 09:30 EST Main OR Intraoperative Recor don 05-11-2024 Main OR Intraoperative Record Main OR Intraoperative Record IntraOp Document Type FT Summary Primary Physician: González Sutton MD Finalized Date/Time: 05/11/24 10:41:05 Pt. Name: SHASHANKTATE/Sex: 1970 Male Med Rec #: [id number] Physician: Alejandra Hayden MD Financial #: [id number] Pt. Type: O Room/Bed: / Admit/Disch: 05/11/24 [...] Negrete RN, Sheldon Martines Role Performed Anesthesiologist Manager Hematology - Primary Scrub - Primary Bedspread Cutter Time In 05/11/24 08:30:00 05/11/24 08:30:00 05/11/24 [...] and tissue Entry 1 Skin Integrity Intact, [place], Warm, & Skin Abnormality No Dry Outcomes Met? Yes Last Modified By: Becky Negrete RN 05/11/24 09:06:34 Post-Care Text: The patient is free from signs and sym (more content not included)... [facility] Main OR PACU II Recordon Main OR PACU II Record Main OR PACU II Record PACU Phase II Document Type FT Summary Primary Physician: Lesley ROMERO, González Cadena Finalized Date/Time: 05/11/24 10:02:45 Pt. Name: TATE ENCARNACION/Sex: 1970 Male Med Rec #: [id number] Physician: Alejandra Hayden MD Financial #: [id number] Pt. Type: O Room/Bed: / Admit/Disch: 05/11/24 [...] By: Mariama Benoit RN 05/11/24 10:02 [facility] Main OR Preoperative Recordo n 05-11-2024 Main OR Preoperative Record Main OR Preoperative Record Holding Area Document Type FT Summary Primary Physician: González Sutton MD Finalized Date/Time: 05/11/24 07:18:36 Pt. Name: SHASHANK TATE Wai/Sex: 1970 Male Med Rec #: [id number] Physician: Alejandra Hayden MD Financial #: [id number] Pt. Type: O Room/Bed: / Admit/Disch: 05/11/24 [...] clear liquid yellow, has been NPO since. /MDRN Finalized By: Rachel Cortez RN Document Signatures Signed By: Rachel Cortez RN 05/11/24 07:18 Normal [facility] Ambulatory Visit Summaryon 0 05-07-2024 Ambulatory [...] Appointments Tuesday 8:15 AM EST With: Where: [facility] Tuesday 9:00 AM EST With: Lesley ROMERO, González Cadena Where: [facility] [address] [address]- Tuesday 9:45 AM EDT With: Ji SIMON MD Where: [facility] [address] [facility] [place] [address]- You Need to Schedule the Following Appointments Follow Up with AURORA ROMERO, Ji Be, URL When: Comments: 4 mos w/ PSA and T level Where: [facility] [address], [place] [phone] Medications What How Much When Why Instructions New tadalafil (tadalafil 20 mg Tab) 1 Tablets By Mouth As Directed as needed for for erectile dysfunction Pt to take one tab 1 hour prior to sexual activity. Do not exceed 20mg in 24 hours. Pickup at [facility] New testosterone (AndroGel Pump 20.25 mg/ 1.25 g (1.62%) transdermal gel) 2 Pump Topical Once a day (in the morning) Refills: 3 Pickup at [facility] Unchanged cholecalciferol (Vitamin D3 50 mcg [...] physician if questions or concerns Pharmacy Information [facility]: [address] [place] [phone] Allergies No Known Allergies No Known Medication [...] gives men (more content not included)... [facility] Urology Office/Clinic Noteon 05-07-2024 Urology Office/Clinic [...] buried peni (more content not included)... [facility] Comment on above: Result Comment: Elec tronically Signed By: AURORA ROMERO, Ji Be\.br\Date and Time Signed: 05/07/24 10:05 EST\.br\Electronically Co-Signed By: Nirmala Lama\.br\Date and Time Co-Signed: 05/07/24 09:58 EST Calprotectin, Fecalon 2024 Calprotectin (Stl) [Mass/Mass] 15 mcg/gm Invalid Interpretation Code 0-120 [facility] Comment on above: Result Comment: Conc entration Interpretation Follow-Up < 5 - 50 ug/g Normal None >50 -120 ug/g Borderline Re-evaluate in 4-6 weeks >120 ug/g Abnormal Repeat as clinically indicated Performed at: [facility] [address] [place], [place] [id number] MD Alfredo Green Performed By: #### 1 [id number] #### [facility] [address] [place] [address] Pancreatic Elastase, Fecalon 04-28-2024 Elastase.pancreatic (Stl) [Mass/Mass] 9 Low >200 [facility] Comment on above: Result Comment: Nicole re Pancreatic Insufficiency: <100 Moderate Pancreatic Insufficiency: 100 - 200 Normal: >200 Performed at: [facility] [address] [place], [place] [id number] MD Alfredo Green Performed By: #### 1 [id number] ####[facility] [address] [place] [address] US Abdomen, Limitedon 2024 US Abdomen, Limited [...] Hayden FINAL REPORT Dictated: 04/27/2024 11:28 am Signer Yaya ROMERO Signed (Electronic Signature): 04/27/2024 11:28 am Signed by: Yaya Rooney MD Transcribed by: MARIA C Technologist: Eric YING [facility] Celiac Disease Comprehensive on 04-25-2024 Endomysium IgA Ql (S) Negative Invalid Interpretation Code Negative [facility] Comment on above: Result Comment: Seru m is slightly lipemic. Performed By: #### 1 [id number] #### [facility] [address] [place] [address] Gliadin peptide IgA Qn (S) 4 unit(s) Invalid Interpretation Code 0-19 [facility] Comment on above: Result Comment: Nega tive 0 - 19 Weak Positive 20 - 30 Moderate to Strong Positive >30 Performed By: #### 1 [id number] #### [facility] [address] [place] [address] Gliadin peptide IgG Qn (S) 2 unit(s) Invalid Interpretation Code 0-19 [facility] Comment on above: Result Comment: Nega tive 0 - 19 Weak Positive 20 - 30 Moderate to Strong Positive >30 Performed By: #### 1 [id number] #### [facility] [address] [place] [address] IgA [Mass/Vol] 213 mg/dL Invalid Interpretation Code 90-386 [facility] Comment on above: Result Comment: Perf ormed at: [facility] [address] [id number] PhD Franklin Pollard Performed By: #### 1 [id number] #### [facility] [address] [place] [address] tTG IgA Qn (S) <2 Invalid Interpretation Code 0-3 [facility] Comment on above: Result Comment: Nega tive 0 - 3 Weak Positive 4 - 10 Positive >10 Tissue Transglutaminase (tTG) has been identified as the endomysial antigen. Studies have demonstr- ated that endomysial IgA antibodies have over 99% specificity for gluten sensitive enteropathy. Performed By: #### 1 [id number] #### [facility] [address] [place] [address] tTG IgG Qn (S) <2 Invalid Interpretation Code 0-5 [facility] Comment on above: Result Comment: Nega tive 0 - 5 Weak Positive 6 - 9 Positive >9 Performed By: #### 1 [id number] #### [facility] [address] [place] [address] Testost Totalon 04-25-2024 Testosterone [Mass/Vol] 194 ng/dL Low 264-916 [facility] Comment on above: Result Comment: Adul t male reference interval is based on a population of healthy nonobese males (BMI <30) between 19 and 39 years old. Mildred, et.al. JCEM 2017,102;5822-5527. PMID: [id number]. Performed at: [facility] [id number] PhD Franklin Pollard Performed By: #### 2 [id number] #### [facility] [address] [place] [address] Ambulatory Visit Summaryon 0 04-24-2024 Ambulatory Visit Summary Ambulatory Visit Summary TATE ENCARNACION :1970 Visit Date:04/24/2024 Ambulatory Visit Instructions Your Diagnosis Irritable bowel syndrome with diarrhea Bloating Black stool Chronic GERD Decreased sexual desire Alcohol drinker Stress-related physiological response affecting medical condition High triglycerides Obesity due to excess calories Your Care Team Attending Physician - Alejandra Hayden MD Primary Care Physician - KIAR GARRISON CNP This Is Your Medications List [...] AM EST With: Alejandra Hayden MD Where: [facility] [address] [place] [phone]- You Need to Complete the Following C-Reactive [...] Decreased sexual desire, pp_set_radiology_subspecialty , [place] Medications What How Much When Why Instructions New cholestyramine (Questran 4 g/ 9 g oral powder) 1 Packets By Mouth 2 times a day Irritable bowel syndrome with diarrhea Bloating Black stool Chronic GERD Pickup at [facility] Unchanged cholecalciferol (Vitamin D3 50 mcg [...] physician if questions or concerns Pharmacy Information [facility]: [address] [place] [id number] [phone] Medications and Immunizations Administered Not Given influenza [...] for choosing us for your care. Normal [facility] CHEMISTRYOrdered By: SYSTEM SYSTEM on 04-24-2024 CRP [Mass/Vol] 0.2 mg/dL Normal <=1.9mg/dL Remisol Chem CRPon 04-24-2024 CRP [Mass/Vol] 0.2 mg/dL Normal <=1.9 [facility] Comment on above: Performed By: #### 2 [id number] #### [facility] [address] [place] [address] Gastroenterology Office/Clin ic Noteon 04-24-2024 Gastroenterology Office/Clinic Note Gastroenterology Office/Clinic Note Chief Complaint Alternating bowels and bloating x years HPI Staff NEW, 53 year old male who presents today for a referral by Sehlby Garrison CNP for complaints of IBS w/ [...] BID, # 60 EA, Refills(s) 0, Pharmacy: [facility], 170, cm, 04/24/24 8:57:00 EST, Height/Length Dosing, 108.6, kg, 04/24/24 8:57:00 EST, Weight Dosing C-Reactive Protein Calprotectin, Fecal Celiac Disease Comprehensive Colonoscopy (Hospital Procedure) EGD Endoscopy (Hospital Procedure) IgA, Quant. Pancreatic Elastase, Fecal Pancreatic Elastase, Fecal Testosterone Level Total US Abdomen, Limited 2. Bloating (R14.0: Abdominal distension (gaseous)) Ordered: cholestyramine, = 1 packet(s), Oral, BID, # 60 EA, Refills(s) 0, Pharmacy: [facility], 170, cm, 04/24/24 8:57:00 EST, Height/Length Dosing, 108.6, kg, 04/24/24 8:57:00 EST, Weight Dosing C-Reactive Protein Calprotectin, Fecal Celiac Disease Comprehensive Colonoscopy (Hospital Procedure) EGD Endoscopy (Hospital Procedure) IgA, Quant. Pancreatic Elastase, Fecal Pancreatic Elastase, Fecal Testosterone Level Total US Abdomen, Limited 3. Black stool (K92.1: Melena) Ordered: cholestyramine, = 1 packet(s), Oral, BID, # 60 EA, Refills(s) 0, Pharmacy: [facility], 170, cm, 04/24/24 8:57:00 EST, Height/Length [...] BID, # 60 EA, Refills(s) 0, Pharmacy: [facility], 170, cm, 04/24/24 8:57:00 EST, Height/Length Dosing, 108.6, kg, 04/24/24 8:57:00 EST, Weight Dosing C-Reactive Protein Calprotectin, Fecal Celiac Disease Comprehensive Colonoscopy (Hospital Procedure) EGD Endoscopy (Hospital Procedure) IgA, Quant. Pancreatic Elastase, Fecal Pancreatic Elastase, Fecal Testosterone Level Total US Abdomen, Limited 5. Decreased sexual desire (F52.0: Hypoactive sexual desire disorder) Ordered: [facility] Internal Ambulatory Referral Pancreatic Elastase, Fecal Testosterone Level Total US Abdomen, Limited 6. Alcohol drinker (Z78.9: Other specified health status) 7. Stress-related physiological response affecting medical condition (F54: Psychological and behavioral factors associated with disorders or diseases classified elsewhere) 8. High triglycerides (E78.1: Pure hyperglyceridemia) 9. Obesity due to excess calories (E66.09: Ot (more content not included)... Normal [facility] Comment on above: Result Comment: Elec tronically Signed By: Jackelyn ROMERO, Alejandra Harrison.br\Date and Time Signed: 04/24/24 09:30 EST FREE T3on 03-15-2018 T3 free mass conc 3.10 pg/mL Normal 2.77-5.27 [facility] Comment on above: Performed By: #### B MP, LIVER, FT3, LIPID, PSASC, TSH, DLDL ####[facility] Nbpodfzjyi0[address] [place] FREE T4on 03-15-2018 T4 free mass conc 0.88 ng/dL Normal 0.78-2.19 [facility] Comment on above: Performed By: #### B MP, LIVER, FT3, LIPID, PSASC, TSH, DLDL ####[facility] Vdhemuwiiv6416 [address] [place] TSHon 03-15-2018 Thyrotropin Qn 7.705 uIU/mL Critically high 0.470-4.680 [facility] Comment on above: Performed By: #### B MP, LIVER, FT3, LIPID, PSASC, TSH, DLDL ####[facility] Cpfoixvzvk54[address] Thyrotropin Qn SEE BELOW Normal [facility] Comment on above: Result Comment: <0.3 4 UIU/ml HYPERTHYROID 0.34-5.60 UIU/ml EUTHYROID >5.60 UIU/ml HYPOTHYROID Performed By: #### B MP, LIVER, FT3, LIPID, PSASC, TSH, DLDL ####[facility] Cusgzbhtyq8520 [address] TESTOSTERONE, TOTALon 2017 Testosterone [Mass/volume] in Serum or Plasma 314 ng/dL Normal 264-916 [facility] Comment on above: Result Comment: Adul t male reference interval is based on a population ofhealthy nonobese males (BMI <30) between 19 and 39 years old.gus Levy.al. JCEM 2017,102;6711-7871. PMID: [id number]. Performed By: #### B MP, LIVER, FT3, LIPID, PSASC, TSH, DLDL ####[facility] Gtukruezps38[address] [place] FREE T3on 01-02-2018 T3 free mass conc 2.98 pg/mL Normal 2.77-5.27 [facility] Comment on above: Performed By: #### B MP, LIVER, FT3, LIPID, PSASC, TSH, DLDL ####[facility] Jufttppqqh6896 [address] [place] FREE T4on 01-02-2018 T4 free mass conc 0.89 ng/dL Normal 0.78-2.19 [facility] Comment on above: Performed By: #### B MP, LIVER, FT3, LIPID, PSASC, TSH, DLDL ####[facility] Pxaqitmyiz4136 [address] [place] TSHon 01-02-2018 Thyrotropin Qn 5.999 uIU/mL Critically high 0.470-4.680 Th [facility] Comment on above: Performed By: #### B MP, LIVER, FT3, LIPID, PSASC, TSH, DLDL ####[facility] [address] [place] [address] [place] Thyrotropin Qn SEE BELOW Normal [facility] Comment on above: Result Comment: <0.3 4 UIU/ml HYPERTHYROID 0.34-5.60 UIU/ml EUTHYROID >5.60 UIU/ml HYPOTHYROID Performed By: #### B MP, LIVER, FT3, LIPID, PSASC, TSH, DLDL ####[facility] Wsmceexyzj7963 [address] [place] CBC AUTO DIFFon 09-14-2017 Basophils Auto #/vol (Bld) 0.1 103/ul Normal 0.0-0.1 [facility] Comment on above: Performed By: #### C BC ####[facility] [address] [place] [address] [place] Basophils/100 WBC Auto (Bld) 0.8 % Normal 0.2-2.0 [facility] Comment on above: Performed By: #### C BC ####[facility] [address] [place], [place] [id number] [place] Eosinophils Auto #/vol (Bld) 0.1 103/ul Normal 0.0-0.7 [facility] Comment on above: Performed By: #### C BC ####[facility] [address] [place] [address] [place] Eosinophils/100 WBC Auto (Bld) 1.4 % Normal 0.9-7.0 [facility] Comment on above: Performed By: #### C BC ####[facility] [address]je[address] [place] [address] [place] Erythrocyte distribution width Auto Ratio (RBC) 13.2 % Normal 11.0-15.0 [facility] Comment on above: Performed By: #### C BC ####[facility] [address] [place] [address] [place] Hematocrit Auto Volume Fraction (Bld) 43.7 % Normal 42.0-54.0 [facility] Comment on above: Performed By: #### C BC ####[facility] [address] [place], [place] [id number] [place] Hemoglobin mass conc (Bld) 15.2 g/dL Normal 14.0-18.0 [facility] Comment on above: Performed By: #### C BC ####[facility] Fxslsnua[address] [place] [address] [place] IG # 0.05 10e3/ul Critically high 0.00-0.03 [facility] Comment on above: Performed By: #### C BC ####[facility] Qhtid[address]ys[address] [place] [address] [place] IG % 0.7 % Critically high 0.0-0.5 [facility] Comment on above: Performed By: #### C BC ####[facility] Dxrqp[address] [place], [place] [id number] Lymphocytes Auto #/vol (Bld) 1.7 103/ul Normal 1.2-3.8 [facility] Comment on above: Performed By: #### C BC ####[facility] [address]p64[address] [place], [place] [address]Xdclpz [place] Lymphocytes/100 WBC Auto (Bld) 23.7 % Normal 20.5-60.0 [facility] Comment on above: Performed By: #### C BC ####[facility] [address] [place] [address]Xraoxl [place] MANUAL DIFF REQ NO Normal [facility] Comment on above: Performed By: #### C BC ####[facility] [address]re[address] [place] [address]Dccfkq [place] MCH Auto Entitic mass (RBC) 33.8 pg Normal 25.9-34.0 [facility] Comment on above: Performed By: #### C BC ####[facility] F[address]ag[address] [place], [place] [id number] [place] MCHC Auto mass conc (RBC) 34.8 g/dL Normal 29.9-35.2 [facility] Comment on above: Performed By: #### C BC ####[facility] T[address]vvzeq[address] [place], [place] [id number] [place] MCV Auto Entitic volume (RBC) 97.1 fL Critically high 80.0-94.0 [facility] Comment on above: Performed By: #### C BC ####[facility] Gtonhuzsis[address] [place], [place] [address] Monocytes Auto #/vol (Bld) 0.5 103/ul Normal 0.3-0.8 [facility] Comment on above: Performed By: #### C BC ####[facility] [address] [place] [address]Isxhtp [place] Monocytes/100 WBC Auto (Bld) 7.0 % Normal 1.7-12.0 [facility] Comment on above: Performed By: #### C BC ####[facility] Bacrj[address]rab[address] [place] [address]Mymimm [place] Neutrophils Auto #/vol (Bld) 4.7 103/ul Normal 1.4-6.5 [facility] Comment on above: Performed By: #### C BC ####[facility] [address] [place] [id number] [place] Neutrophils/100 WBC Auto (Bld) 66.4 % Normal 43.0-75.0 [facility] Comment on above: Performed By: #### C BC ####[facility] Q[address]ms[address] [place] [address]SalbfxArpit Colindres Platelet mean volume Auto Entitic volume (Bld) 10.7 fL Normal 9.5-13.5 [facility] Comment on above: Performed By: #### C BC ####[facility] T[address]jrwr[address] [place], [place] [id number] Platelets Auto #/vol (Bld) 223 103/ul Normal 150-450 [facility] Comment on above: Performed By: #### C BC ####[facility] [address] [place], [place] [address] RBC Auto #/vol (Bld) 4.50 106/ul Critically low 4.70-6.10 [facility] Comment on above: Performed By: #### C BC ####[facility] O[address]ub[address] [place], [place] [address]ken [place] WBC Auto #/vol (Bld) 7.1 103/ul Normal 4.0-11.0 [facility] Comment on above: Performed By: #### C BC ####[facility] C[address]zql[address] [place], [place] [address]ken [place] DIRECT LDLon 09-14-2017 Cholesterol in LDL mass conc SEE BELOW Normal [facility] Comment on above: Result Comment: <100 mg/dl OPTIMAL 100 - 129 mg/dl NEAR OR ABOVE OPTIMAL 130 - 159 mg/dl BORDERLINE HIGH 160 - 189 mg/dl HIGH >190 mg/dl VERY HIGH Performed By: #### B MP, LIVER, FT3, LIPID, PSASC, TSH, DLDL ####[facility] [address] [place] [address]JhuggfArpit Colindres Cholesterol in LDL mass conc 45 mg/dL Normal [facility] Comment on above: Performed By: #### B MP, LIVER, FT3, LIPID, PSASC, TSH, DLDL ####[facility] Cxquyhzrgy4021 [address] [place] FREE T3on 09-14-2017 T3 free mass conc 4.33 pg/mL Normal 2.77-5.27 [facility] Comment on above: Performed By: #### B MP, LIVER, FT3, LIPID, PSASC, TSH, DLDL ####[facility] Ttwzfecrpb5299 [address] [place] FREE T4on 09-14-2017 T4 free mass conc 0.67 ng/dL Critically low 0.78-2.19 [facility] Comment on above: Performed By: #### F T4 ####[facility] Euayezfhyb[address] [place] [address] [place] GLYCOHEMOGLOBIN A1Con 2017 Glucose mass conc 108 mg/dL Normal [facility] Comment on above: Performed By: #### A 1C ####[facility] K[address] [place] [address] [place] Hemoglobin A1c/Hemoglobin.tota l mass fraction (Bld) 5.4 % Normal <=6.0 [facility] Comment on above: Performed By: #### A 1C ####[facility] Tvisqnrwmd5743 [address] [place] LIPID PROFILEon 09-14-2017 CHOL-HDL RATIO NORM SEE BELOW Normal [facility] Comment on above: Result Comment: 3.3 - 4.4 LOW RISK 4.4 - 7.1 AVERAGE RISK 7.1 - 11.0 MODERATE RISK >11.0 HIGH RISK Performed By: #### B MP, LIVER, FT3, LIPID, PSASC, TSH, DLDL ####[facility] Rhjbzgfdvd7217 [address] [place] Cholesterol in HDL mass conc 34 mg/dL Normal [facility] Comment on above: Result Comment: A po sitive bias may be seen with a triglyceride level over 600 mg/dL Performed By: #### B MP, LIVER, FT3, LIPID, PSASC, TSH, DLDL ####[facility] Twikaucoue5328 [address] [place] Cholesterol in HDL mass conc > or = 60 mg/dl - LOW CARDIOVASCULAR RISK <40 mg/dl - HIGH CARDIOVASCULAR RISK Normal [facility] Comment on above: Performed By: #### B MP, LIVER, FT3, LIPID, PSASC, TSH, DLDL ####[facility] [address] [place] [id number] Cholesterol mass conc 199 mg/dL Normal <=200 [facility] Comment on above: Performed By: #### B MP, LIVER, FT3, LIPID, PSASC, TSH, DLDL ####[facility] Aeohuhixlg3354 [address] [place] Cholesterol.total/C holesterol in HDL mass ratio 6.0 {ratio} Normal [facility] Comment on above: Performed By: #### B MP, LIVER, FT3, LIPID, PSASC, TSH, DLDL ####[facility] Nqozyvxrhs1345 [address] [place] Triglyceride mass conc 1177 mg/dL Critically high <=150 [facility] Comment on above: Performed By: #### B MP, LIVER, FT3, LIPID, PSASC, TSH, DLDL ####[facility] Omyukybbma8393 [address] [place] LIVER PROFILEon 09-14-2017 Albumin mass conc 4.6 g/dL Normal 3.5-5.0 [facility] Comment on above: Performed By: #### B MP, LIVER, FT3, LIPID, PSASC, TSH, DLDL ####[facility] Vhtrxdrqij9797 [address] [place] Albumin/Globulin mass ratio 1.5 {ratio} Normal [facility] Comment on above: Performed By: #### B MP, LIVER, FT3, LIPID, PSASC, TSH, DLDL ####[facility] Sxaweszxci5861 [address] [place] ALP enzyme act/vol 66 U/L Normal 38-126 [facility] Comment on above: Performed By: #### B MP, LIVER, FT3, LIPID, PSASC, TSH, DLDL ####[facility] Blqgrlkxsl1673 [address] [place] ALT enzyme act/vol 66 U/L Normal 21-72 [facility] Comment on above: Performed By: #### B MP, LIVER, FT3, LIPID, PSASC, TSH, DLDL ####[facility] Xtkwkewaem2640 [address] [place] AST enzyme act/vol 48 U/L Normal 17-59 [facility] Comment on above: Performed By: #### B MP, LIVER, FT3, LIPID, PSASC, TSH, DLDL ####[facility] [address] [place] [address] [place] BILI, CONJUGATED 0.0 mg/dL Normal 0.0-0.3 [facility] Comment on above: Performed By: #### B MP, LIVER, FT3, LIPID, PSASC, TSH, DLDL ####[facility] K[address] [place] [address] [place] Bilirubin Ql (U) 0.3 mg/dL Normal 0.2-1.3 [facility] Comment on above: Performed By: #### B MP, LIVER, FT3, LIPID, PSASC, TSH, DLDL ####[facility] Lvnwxpjboq7555 [address] [place] Globulin Calculated mass conc (S) 3.1 g/dL Normal [facility] Comment on above: Performed By: #### B MP, LIVER, FT3, LIPID, PSASC, TSH, DLDL ####[facility] Gsdkmhaiyg2858 [address] [place] Protein mass conc 7.7 g/dL Normal 6.1-8.2 [facility] Comment on above: Performed By: #### B MP, LIVER, FT3, LIPID, PSASC, TSH, DLDL ####[facility] [address] [place] [address] [place] PROF CHEM 8 (BAS METB)on Anion gap 3 molar conc 10.0 mmol/L Normal [facility] Comment on above: Performed By: #### B MP, LIVER, FT3, LIPID, PSASC, TSH, DLDL ####[facility] Fmakhsmzog3465 [address] [place] Calcium mass conc 9.6 mg/dL Normal 8.4-10.2 [facility] Comment on above: Performed By: #### B MP, LIVER, FT3, LIPID, PSASC, TSH, DLDL ####[facility] Ukdlomhxcw5991 [address] [place] Chloride molar conc 104 mmol/L Normal 98-107 [facility] Comment on above: Performed By: #### B MP, LIVER, FT3, LIPID, PSASC, TSH, DLDL ####[facility] Abgfbumdqs1682 [address] [place] CO2 molar conc 25.0 mmol/L Normal 22.0-30.0 [facility] Comment on above: Performed By: #### B MP, LIVER, FT3, LIPID, PSASC, TSH, DLDL ####[facility] Ltnidrdkrs6514 [address] [place] Creatinine mass conc 0.96 mg/dL Normal 0.66-1.25 [facility] Comment on above: Performed By: #### B MP, LIVER, FT3, LIPID, PSASC, TSH, DLDL ####[facility] Bcivopccfx9571 [address] [place] EGFR-AF GREENLANDIC >60 Normal >=60 [facility] Comment on above: Performed By: #### B MP, LIVER, FT3, LIPID, PSASC, TSH, DLDL ####[facility] Fvjddkkoqi6760 [address] [place] EGFR-NON AF GREENLANDIC >60 Normal >=60 [facility] Comment on above: Performed By: #### B MP, LIVER, FT3, LIPID, PSASC, TSH, DLDL ####[facility] Pmbgbeesja9082 [address] [place] Glucose mass conc 97 mg/dL Normal 74-106 [facility] Comment on above: Performed By: #### B MP, LIVER, FT3, LIPID, PSASC, TSH, DLDL ####[facility] Vjiktlqgis1675 [address] [place] Potassium molar conc 4.2 mmol/L Normal 3.4-5.0 [facility] Comment on above: Performed By: #### B MP, LIVER, FT3, LIPID, PSASC, TSH, DLDL ####[facility] Glnkaedaud4381 [address] [place] Sodium molar conc 135 mmol/L Critically low 137-145 [facility] Comment on above: Performed By: #### B MP, LIVER, FT3, LIPID, PSASC, TSH, DLDL ####[facility] Dcpdyrgnbf8014 [address] [place] Urea nitrogen mass conc 14.0 mg/dL Normal 9.0-20.0 [facility] Comment on above: Performed By: #### B MP, LIVER, FT3, LIPID, PSASC, TSH, DLDL ####[facility] Qgeztegmsz3877 [address] [place] Urea nitrogen/Creatinine mass ratio 14.8 mg/mg Normal [facility] Comment on above: Performed By: #### B MP, LIVER, FT3, LIPID, PSASC, TSH, DLDL ####[facility] Zeejuipzxb9224 [address] [place] TSHon 09-14-2017 Thyrotropin Qn SEE BELOW Normal [facility] Comment on above: Result Comment: <0.3 4 UIU/ml HYPERTHYROID 0.34-5.60 UIU/ml EUTHYROID >5.60 UIU/ml HYPOTHYROID Performed By: #### B MP, LIVER, FT3, LIPID, PSASC, TSH, DLDL ####[facility] Blspirywmv8731 [address] [place] Thyrotropin Qn 6.140 uIU/mL Critically high 0.470-4.680 [facility] Comment on above: Performed By: #### B MP, LIVER, FT3, LIPID, PSASC, TSH, DLDL ####[facility] [address] [place] [address] Vital Signs Date Time Vital Sign Value Performing Clinician Maicol kumari 05-21-2024 09:10-0500 Diastolic blood pressure 80 mm[Hg] Claudio Sarmini [facility] 05-21-2024 09:10-0500 Heart rate 66 /min Claudio Sarmini [facility] 05-21-2024 09:10-0500 Systolic blood pressure 138 mm[Hg] Claudio Sarmini [facility] 05-21-2024 09:08-0500 Blood Pressure Location Claudio Sarmini [facility] 05-21-2024 09:08-0500 Respiratory rate 14 /min Claudio Sarmini [facility] 05-17-2024 08:22-0500 Body height 165.1 cm Christopher Jasmin DO Work Phone: [facility] 05-17-2024 08:22-0500 Body mass index (BMI) [Ratio] 39.61 kg/m2 Christopher Jasmin DO Work Phone: [facility] 05-17-2024 08:22-0500 Body weight 107.96 kg Christopher Jasmin DO Work Phone: [facility] 05-17-2024 08:22-0500 Diastolic blood pressure 88 mm[Hg] Christopher Jasmin DO Work Phone: [facility] 05-17-2024 08:22-0500 Heart rate 74 /min Christopher Jasmin DO Work Phone: [facility] 05-17-2024 08:22-0500 Systolic blood pressure 138 mm[Hg] Christopher Jasmin Work Phone: [facility] 05-11-2024 09:40-0500 Diastolic blood pressure 77 mm[Hg] Mohamad Mouchli [facility] 05-11-2024 09:40-0500 Heart rate 61 /min Mohamad Mouchli [facility] 05-11-2024 09:40-0500 Respiratory rate 13 /min Mohamad Mouchli [facility] 05-11-2024 09:40-0500 SaO2% (BldA) [Mass fraction] 94 % Mohamad Mouchli [facility] 05-11-2024 09:40-0500 Systolic blood pressure 140 mm[Hg] Mohamad Mouchli [facility] 05-11-2024 09:20-0500 Diastolic blood pressure 83 mm[Hg] Mohamad Mouchli [facility] 05-11-2024 09:20-0500 Heart rate 89 /min Mohamad Mouchli [facility] 05-11-2024 09:20-0500 Respiratory rate 22 /min Mohamad Mouchli [facility] 05-11-2024 09:20-0500 SaO2% (BldA) [Mass fraction] 94 % Mohamad Mouchli [facility] 05-11-2024 09:20-0500 Systolic blood pressure 145 mm[Hg] Mohamad Mouchli [facility] 05-11-2024 09:15-0500 Diastolic blood pressure 79 mm[Hg] Mohamad Mouchli [facility] 05-11-2024 09:15-0500 Heart rate 90 /min Mohamad Mouchli [facility] 05-11-2024 09:15-0500 Respiratory rate 13 /min Mohamad Mouchli [facility] 05-11-2024 09:15-0500 SaO2% (BldA) [Mass fraction] 98 % Mohamad Mouchli [facility] 05-11-2024 09:15-0500 Systolic blood pressure 126 mm[Hg] Mohamad Mouchli [facility] 05-11-2024 09:10-0500 Body temperature 98.42 [degF] Mohamad Mouchli [facility] 05-11-2024 09:05-0500 Respiratory rate 14 /min Mohamad Mouchli [facility] 05-11-2024 08:55-0500 Respiratory rate 22 /min Mohamad Mouchli [facility] 05-11-2024 07:28-0500 Blood Pressure Location Mohamad Mouchli [facility] 05-11-2024 07:28-0500 Body temperature 97.88 [degF] Mohamad Mouchli [facility] 05-07-2024 09:34-0500 Diastolic blood pressure 82 mm[Hg] Ji SIMON [facility] 05-07-2024 09:34-0500 Mean blood pressure 109 mm[Hg] Ji SIMON [facility] 05-07-2024 09:34-0500 Systolic blood pressure 164 mm[Hg] Ji SIMON [facility] 05-07-2024 09:11-0500 Diastolic blood pressure 86 mm[Hg] Ji SIMON [facility] 05-07-2024 09:11-0500 Heart rate 74 /min Ji SIMON [facility] 05-07-2024 09:11-0500 Respiratory rate 16 /min Ji SIMON [facility] 05-07-2024 09:11-0500 Systolic blood pressure 168 mm[Hg] Ji SIMON [facility] 04-24-2024 08:57-0500 Blood Pressure Location [facility] 04-24-2024 08:57-0500 Diastolic blood pressure 80 mm[Hg] [facility] 04-24-2024 08:57-0500 Heart rate 71 /min [facility] 04-24-2024 08:57-0500 Systolic blood pressure 125 mm[Hg] [facility] Encounters Encounter Date Encounter Type Care Provider Facility Start: 12-11-2024 End: 12-11-2024 ambulatory Ji SIMON Facility:[facility] Start: 12-11-2024 End: 12-11-2024 Patient encounter procedure Ji SIMON [facility] Start: 11-30-2024 End: 11-30-2024 ambulatory Jorge L Iniguez Facility:[facility] Start: 11-12-2024 End: 11-12-2024 ambulatory Ji SIMON Facility:[facility] Start: 11-12-2024 End: 11-12-2024 Patient encounter procedure Ji Be SIMON [facility] Start: 10-15-2024 End: 10-15-2024 ambulatory Ji SIMON Facility:[facility] [place] Start: 10-15-2024 End: 10-15-2024 Patient encounter procedure Ji SIMON [facility] [place] Start: 09-14-2024 End: 09-14-2024 ambulatory Ji SIMON Facility:[facility] Start: 09-14-2024 End: 09-14-2024 Patient encounter procedure Ji SIMON [facility] Start: 09-10-2024 End: 09-10-2024 ambulatory Ji SIMON Facility:[facility] Start: 09-10-2024 End: 09-10-2024 Patient encounter procedure Ji SIMON [facility] Start: 08-16-2024 End: 08-16-2024 ambulatory Claudio Talal Sarmini [facility] Start: 07-17-2024 End: 07-17-2024 ambulatory Claudio Talal Sarmini [facility] Start: 05-25-2024 End: 05-25-2024 Bamboo flowsheet Jazlyn Wilburn OT Work Phone: [facility] Start: 05-25-2024 End: 05-25-2024 Bamboo flowsheet Jazlyn Elanaej OT Work Phone: [facility] Start: [...] 05-21-2024 End: 05-21-2024 ambulatory Claudio Talal Sarmini Facility:[facility] Start: 05-21-2024 End: 05-21-2024 Patient encounter procedure Claudio Taloh Sarmini [facility] Start: 05-18-2024 End: 05-18-2024 ambulatory [...] Start: 05-11-2024 End: 05-11-2024 ambulatory Alejandra Hayden Facility:[facility] Start: 05-11-2024 End: 05-11-2024 Patient encounter procedure Alejandra Hayden [facility] Start: 05-07-2024 End: 05-07-2024 ambulatory Alejandra Hayden Facility: [facility] Start: 05-07-2024 End: 05-07-2024 Patient encounter procedure Ji ISMON [facility] Start: 04-27-2024 ambulatory Alejandra Hayden Facilit y:[facility] Start: 04-26-2024 End: 04-26-2024 ambulatory Alejandra Hayden Facility:[facility] Start: 04-26-2024 End: 04-26-2024 Patient encounter procedure Alejandra Hayden [facility] Start: 04-25-2024 End: 04-25-2024 ambulatory Alejandra Hayden Facility:[facility] Start: 04-25-2024 End: 04-25-2024 Lab Drop off Alejandra Hayden [facility] Start: 04-24-2024 End: 04-24-2024 ambulatory Alejandra Hayden Facility:[facility] Start: 04-24-2024 End: 04-24-2024 Patient encounter procedure Alejandra Hayden [facility] Start: 04-24-2024 End: 04-24-2024 ambulatory Alejandra Hayden [facility] Start: 04-24-2024 End: 04-24-2024 Patient encounter procedure Alejandra Hayden [facility] Start: 04-18-2024 ambulatory Alejandra Hayden Facilit y:Alejandro Start: 03-15-2018 End: 03-16-2018 Patient encounter procedure LUIS ANTONIO Aurora DAVID Facility:[facility] Start: 01-02-2018 End: 01-03-2018 Patient encounter procedure [facility] Start: 10-26-2017 End: 10-27-2017 Patient encounter procedure LUIS ANTONIO Simon POOJAR Facility:[facility] Start: 09-27-2017 End: 09-28-2017 Patient encounter procedure LUIS ANTONIO Simon POOJAR Facility:[facility] Start: 09-15-2017 Encounter for genera l adult medical examination without abnormal findings LUIS ANTONIO HERNANDEZ [facility] Start: 09-14-2017 End: 09-15-2017 [facility] Encounter for genera l adult medical examination without abnormal findings [facility] Procedures Date Procedure Procedure Detail Performing Clinician Start: 05-11-2024 Colonoscopy Alejandra Hayden Comment on above: colon polyps x2, diverticulosis, Ih Start: 05-11-2024 Esophagogastroduodenoscopy Alejandra huyhn Comment on above: esophagitis, gastritis, clean based ulce rs, biopsies for celiac disease Start: 09-14-2017 PSA screening LUIS ANTONIO HERNANDEZ Comment on above: Performed By: #### BMP, LIVER, FT3, LIPI D, PSASC, TSH, DLDL ####[facility] [address] [place], [place] [address]ZzwuceArpit Colindres Plan of Treatment Date Care Activity Detail Author Start: 01-07-2025 ambulatory Ambulatory Facility:[facility] Start: 12-24-2024 ambulatory Ambulatory Facility:[facility] [place] Start: 11-19-2024 End: 11-19-2024 Patient encounter procedure 11/19/2024 8:20 AM EDT Office Visit [facility] [address] [place] [phone] Sofie Weller NP [address] [phone] [facility] [place] Start: 05-25-2024 End: 05-25-2024 ambulatory 05/25/2024 8:00 AM EST Treatment [facility] [address] [place] [address] Jazlyn Wilburn, OT [address] [place] [address] [facility] Start: 05-22-2024 End: 05-22-2024 ambulatory 05/22/2024 8:00 AM EST Treatment [facility] [address] [place] [address] Jazlyn Wilburn, OT [address] [place] [address] [facility] Start: 05-18-2024 End: 05-18-2024 ambulatory 05/18/2024 8:00 AM EST Treatment [facility] [address] [place] [address] Jazlyn Wilburn, OT [address] [place] [address] [facility] Start: 05-17-2024 End: 05-17-2024 Patient encounter procedure 05/17/2024 8:00 AM EST Office Visit MARY [place] [address] [place] [phone] Sandra Castellanos DO [address] [place] [address] [facility] Start: 12-11-2023 Influenza vaccination Influenza Vacc ine (#1) [facility] Start: 1970 Screening for malign ant neoplasm of colon [facility] Immunizations Immunization Date Immunization Notes Care Provider Fa cility NEGATED: Highlighted row has not occurred!04-24-2024 influenza virus vaccine, unspecified formulation Alejandra Celestinekarmen [facility] Payers Date Payer Category Payer Private Health Insurance [id number] 2024 Medicaid (Managed Care) SANDOR MARINELLI [id number] 2024 Unknown [id number] 1970 Unknown [id number] 2.840.1.149131.3.579.2 .593 1970 Unknown [id number] 2.0.1.114636.3.579.2 .59 1970 Unknown [id number] 2.840.1.461371.3.579.2 .593 1970 Unknown [id number] 2.840.1.314267.3.579.2 .593 1970 Unknown [id number] 2.16840.1.414412.3.579.2 .593 1970 Unknown [id number] 2.16.840.1.391262.3.579.2 .1970 Unknown [id number] 2.16.840.1.146266.3.579.2 .1970 Unknown [id number] 2.16.840.1.431865.3.579.2 .1970 Unknown [id number] 2.16.840.1.149814.3.579.2 .1258 1970 Unknown [id number] 2.16.840.1.967665.3.579.2 .1258 1970 Unknown [id number] 2.16.840.1.390403.3.579.2 .1258 1970 Unknown [id number] 2.16.840.1.607592.3.579.2 .1258 1970 Unknown [id number] 2.16.840.1.090766.3.579.2 .1258 1970 Unknown [id number] 2.16.840.1.308022.3.579.2 .1970 Unknown [id number] 2.16.840.1.912495.3.579.2 .1970 Unknown [id number] 2.16.840.1.479294.3.579.2 .1970 Unknown [id number] 2.16.840.1.889050.3.579.2 .1970 Unknown [id number] 2.16.840.1.991683.3.579.2 .1970 Unknown [id number] 2.16.840.1.777564.3.579.2 .1970 Unknown [id number] 2.16.840.1.595719.3.579.2 .1970 Unknown [id number] 2.16.840.1.350630.3.579.2 .727 1970 Unknown [id number] 2.16.840.1.880741.3.579.2 .727 1970 Unknown [id number] 2.16.840.1.102059.3.579.2 .727 1970 Unknown [id number] 2.16.840.1.352454.3.579.2 .7 1970 Unknown [id number] 2.16.840.1.880676.3.579.2 .727 1970 Unknown [id number] 2.16.840.1.303929.3.579.2 .727 1970 Unknown [id number] 2.16.840.1.897924.3.579.2 .727 1959 Unknown [id number] Social History Date Type Detail Facility Start: 04-24-2024 End: 08-16-2024 Tobacco smoking status Never smoked tobacco (finding) [facility] Tobacco smoking status Smokeless tobacco user within last 30 days [facility] Start: 05-17-2024 Sex Assigned At Male F [facility] Tobacco smoking stat [facility] Tobacco smoking consumption unknown [facility] [...] [facility] Sexual Orientation [facility] Sex Male (finding) [facility] Functional Status Date Assessment Result Facility 05-21-2024 Functional Status N/A [facility] 05-11-2024 Functional Status N/A [facility] 05-07-2024 Functional Status N/A [facility] 04-24-2024 Functional Status N/A [facility] Clinical Notes 05-07-2024 to 09-10-2024 Jazlyn Wilburn, OT - 05/25/2024 8:00 AM Mihir Wilburn, OT - 05/22/2024 8:00 AM Mihir Wilburn, OT - 05/18/2024 8:00 AM ESTChriswilliam Jasmin, DO - 05/17/2024 8:00 AM EST Note [...] therapy. Follow these instructions at home: Take qsvo-tok-nupiape and prescription medicines only as told by [...] provider. Document Revised: 11/27/2020 Document Reviewed: 11/27/2020 [employer] Patient Education 2023 [employer]. Follow Up Care 05/07/2024 09:57:31 With:AURORA ROMERO, Ji Be, URL Address: [facility] [address], [place] [phone] When: Unknown Comments:4 mos w/ T level [facility] 09-10-2024 Note Patient Education Urology Hypogonadism, Male [...] Follow these instructions at home: ??? Take bkkk-cqd-olvjwbk and prescription medicines only as told by [...] you discuss any (more content not included)... [facility] 05-25-2024 History of Present illness Narrative [...] all planes 1x15 with fair toleration. Composite web retailer holds x2 minutes. Contract release exercsies 1x15. [...] with doctor. documented in this encounter [facility] 05-22-2024 History of Present illness Narrative Occupational [...] all planes 1x15 with fair toleration. Composite web retailer holds x2 minutes. Contract release exercsies 1x15. [...] at discharge documented in this encounter [facility] 05-18-2024 History of Present illness Narrative Occupational [...] all planes 1x15 with fair toleration. Composite web retailer holds x2 minutes. Contract release exercsies 1x15. [...] at discharge documented in this encounter [facility] 05-17-2024 History of Present illness Narrative Images [...] machine. He did have recent MRI at [facility]. He has never tried any medications [...] , wrist extensors , wrist flexor , web retailer strength 5/5. LUE Strength deltoid , biceps , triceps , wrist extensors , wrist flexor , web retailer strength 5/5. RLE Strength illopsoas, quadriceps, tibialis [...] reflex 2+ . Huerta's sign negative. Coordination: Fdcvld-nk-wcxo testing and rapid alternating movements are normal [...] return instructions documented in this encounter [facility] 05-15-2024 History of Present illness Narrative Images [...] R hand. Pt reports he works in [employer] and is unable to use his saw [...] self-care and functional mobility tasks. Works in [employer]. Precautions: none Objective PRWHE Pain Score: 39/50 [...] composite fist. Strength Strength additional comments: R web retailer strength: 35# compared to L web retailer strength: 115# Special Tests Special tests additional [...] for light strengthening and ROM at discharge. Raking Machine Operator Goals: PRWHE Pain Score < 20/ 50 ( IE:39/50 ) PRWHE Functional Score <25/100 (IE: 68/100) Reduce R hand edema by at least 5 cm in order to reduce pain and improve ROM at discharge. Pt to increase web retailer strength by 10# and LP by 2# pain free at discharge. Pt will be able to use right UE in light daily activities. Pt will benefit from skilled OT to address the above impairments for 2x/week for 4-6 weeks. I hereby deem this POC medically necessary. Please sign below. Date: . documented in this encounter [facility] 05-11-2024 Evaluation + Plan note Extrac deb from: Title:ANES Post-operative Note---General Author: Cody Tay MD Date:05/11/24 Plan Transfer/Discharge: Transfer/Discharge Discharge when meets criteria ( To home ). Extracted from: Title:1Preop H&P Author:González Sutton MD Date:05/11/24 Impression and Plan Impression: change in bowel habits Plan: -EGD and Colonoscopy Extracted from: Title:ANES Pre-operative Note 2022 Author:Cody Chávez Date:05/11/24 Plan [place] [employer] Anesthesiologists (ASA) physical status classification: Class II. Anesthetic Preoperative Plan: Anesthesia General. Future Appointments Appointment Date:05/21/2024 09:00:00 AM Scheduled Provider:González Sutton MD Location:[facility] Appointment Type:BADH Follow Up Appointment Date:09/07/2024 09:45:00 AM Scheduled Provider:Ji SIMON MD Location:[facility] Appointment Type:URO Office Visit [facility] 01-31-2025 Hospital Discharge instructions Patient [...] help quitting, ask your health careprovider. Take rqdt-beh-pgriqaz and prescription medicines only as told by your health care provider. ?Do not use omxn-jmp-vnifauy medicines in place of prescription medicines unless [...] help quitting, ask your health careprovider. Take yuak-mji-xnpmogf and prescription medicines only as told by your health care provider. Do not use amun-vbw-ymquamy medicines in place of prescription medicines unless your health care provider approves. Limit your alcohol and caffeine intake. Keep all follow-up visits. This is important. This information is not intended to replace advice given to you by your health care provider. Make sure you discuss any questions you have with your health care provider. Document Revised: 11/06/2021 Document Reviewed: 11/06/2021 [employer] Patient Education 2023 [employer]. 05/11/2024 09:43:40 Colonoscopy, Care After Surgery Salam [...] unsweetened, w/added ascorbic acid 1 cup 0.5 Piute 1 cup 0.7 Vegetables Cooked Green beans 1 cup 4.0 Carrots 1/2 cup sliced 2.3 Peas 1 cup 8.8 Potato (baked, with skin) 1 medium potato 3.8 Raw [place] (with peel) 1 cucumber 1.5 Lettuce 1 [...] 8.7 Peanuts 1/2 cup 7.9 Chart from [facility] 2013. SEEK IMMEDIATE MEDICAL CARE IF: You [...] Reference. Available at http://www.nal.usda.gov/fnic/foodcomp/search/. Information adapted from: [facility] Patient Information 2009 [employer]. [employer] 2012 http://www.C[employer]ctions/contents/ojluzmyiunrl-xaiqjvr-dnnkdg-the-basics 05/11/2024 09:43:38 Colon Polyps Colon Polyps Colon [...] hard liquor (44 mL). General instructions Take rsbe-fpl-pdcwkyw and prescription medicines only as told by [...] provider. Document Revised: 07/16/2020 Document Reviewed: 07/16/2020 [employer] Patient Education 2023 [employer]. 05/11/2024 09:27:02 Gluten-Free Diet for Celiac Disease, [...] how a food is processed, ask the radiology nurse. What foods can I eat? Fruits All [...] cereals made from cornmeal or GF grains. [place], rice, and wild rice. Some rice noodles or dick noodles. [place] starch, corn bran, corn flour, corn germ, cornmeal, corn starch, potato flour, potato starch flour, and rice bran. Plain, brown, and sweet rice flours. Rice namibian, soy flour, and tapioca starch. Meats and [...] or meat loaves. Bread-containing products, such as [place]agu[place] steak, croquettes, meatballs, and meatloaf. Most tuna canned in vegetable broth. [place] with hydrolyzed vegetable protein (HVP) injected as [...] provider. Document Revised: 02/16/2022 Document Reviewed: 02/16/2022 [employer] Patient Education 2023 [employer]. 05/11/2024 09:26:16 Upper Endoscopy, Adult, Care After [...] what activities are safe for you. Take ouib-hct-zdgsbfm and prescription medicines only as told by [...] provider. Document Revised: 07/07/2022 Document Reviewed: 07/07/2022 [employer] Patient Education 2023 [employer]. 05/11/2024 09:26:10 Esophagitis Esophagitis Esophagitis is inflammation [...] Follow these instructions at home: Medicines Take wwvz-lso-bfuxlox and prescription medicines only as told by [...] powder, vinegar, hot sauces, and barbecue sauce. ?[place] fruit juices and citrus fruits, such as oranges, ronald, and limes. ?Tomato-based foods, such as red sauce, chili, salsa, and pizza with red sauce. ?Fried and fatty foods, such as donuts, estonian fries, potato chips, and high-fat dressings. ?High-fat [...] provider. Document Revised: 10/06/2020 Document Reviewed: 10/06/2020 [employer] Patient Education 2023 [employer]. 05/11/2024 09:25:57 Celiac Disease Celiac Disease Celiac [...] provider. Document Revised: 02/16/2022 Document Reviewed: 02/16/2022 [employer] Patient Education 2023 [employer] 05/11/2024 09:25:22 Gastritis, Adult Gastritis, Adult Gastritis [...] medicines. These include steroids, antibiotics, and some brrd-rbm-ptwawoa medicines, such as aspirin or ibuprofen. Having [...] Follow these instructions at home: Medicines Take kvvb-gqp-uifnosp and prescription medicines only as told by [...] provider. Document Revised: 08/01/2021 Document Reviewed: 08/01/2021 [employer] Patient Education 2023 [employer]. [facility] 01-31-2025 NotePatient Education - Text Colonoscopy Care After Surgery Please read the instructions outlined below and refer to this sheet in the next few weeks. These discharge instructions provide you with general information on caring for [facility] Your doctor may also give you [...] unsweetened, w/added ascorbic acid 1 cup 0.5 Piute 1 cup 0.7 Vegetables Cooked Green beans 1 cup 4.0 Carrots 1/2 cup sliced 2.3 Peas 1 cup 8.8 Potato (baked, with skin) 1 medium potato 3.8 Raw [place] (with peel) 1 cucumber 1.5 Lettuce 1 [...] 8.7 Peanuts 1/2 cup 7.9 Chart from [facility] 2 (more content not included)...[facility] 05-11-2024 NoteProgress Note-Physician Patient: TATE ENCARNACION MRN: [id number] Age: 53 years Sex: Male : 1970 Associated Diagnoses: None Author: Cody Tay MD Postoperative Information Postoperative disposition: Postoperative disposition: To PACU. Optimetrix number: Optimetrix number [id number]. Anesthetic utilized: General. Health Status Allergies: Allergic [...] Discharge when meets criteria ( To home ).[facility]Result Comment: Electronically Signed By: [...] out celiac disease Images Procedure images: Rec_hd_video__[id number].jpg Rec_hd_video_[id number].jpg Rec_hd_video_[id number].jpg Rec_hd_video_[id number].jpg Rec_hd_video__[id number].jpg Rec_hd_video_[id number].jpg Rec_hd_video__[id number].jpg Rec1_hd_video_2024__[id number].jpg Rec1_hd_video__[id number].jpg . Post-Procedure Complications: none. Estimated blood [...] [facility]GD in 3 [facility] Comment on above:Result Comment: Electronically Signed By: Lesley ROMERO, González Cadena\.br\Date and Time Signed: 05/11/24 09:09 ESTOther Comment: Missing Attachment - attachment storage system not supported [id number] Can be viewed in source systemMissing Attachment - attachment storage system not supported [id number] Can be viewed [facility] systemMissing Attachment - attachment storage system not supported [id number] Can be viewed in source systemMissing Attachment - attachment storage system not supported [id number] Can be viewed in source systemMissing Attachment - attachment storage system not supported [id number] Can be viewed in source systemMissing Attachment - attachment storage system not supported [id number] Can be viewed in source systemMissing Attachment - attachment storage system not supported [id number] Can be viewed in source systemMissing Attachment - attachment storage system not supported [id number] Can be viewed in source systemMissing Attachment - attachment storage system not supported [id number] Can be viewed in [id number] NoteEndoscopic Procedure Report - Other Patient: TATE [...] qAM, # 75 gram, Refills(s) 3, Pharmacy: [facility], 165, cm, 05/07/24 9:19:00 EST, Height/Length Dosing, 108.1, kg, 05/07/24 9:19:00 EST, Weight Dosing Questran 4 g/9 g oral powder: = 1 packet(s), Oral, BID, # 60 EA, Refills(s) 0, Pharmacy: [facility], 170, cm, 04/24/24 8:57:00 EST, Height/Length Dosing, 108.6, kg, 04/24/24 8:57:00 EST, Weight Dosing Zenpep 60,000 units-189,600 units-252,600 units oral delayed release capsule: See Instructions, 300cap(s), Refill(s) 3, Take 2 caps with each meal and 1 with each snack, [facility], 170, cm, 04/24/24 8:57:00 EST, Height/Length Dosing, 108.6, kg, 04/24/24 8:57:00 EST, Weight Dosing tadalafil 20 mg Tab: 20 mg = 1 tab(s), Oral, As Directed, PRN for erectile dysfunction, Pt to take one tab 1 hour prior to sexual activity. Do not exceed 20mg in 24 hours., # 30 tab(s), Refills(s) 0,Pharmacy: [facility], 165, cm, 05/07/24 9:19:00 EST, Hei... [...] Normal examined terminal ileum Images Procedure images: Rec1_hd_video_2024__[id number].jpg Rec1_hd_video_2024__[id number].jpg Rec_hd_video__09_[id number].jpg Rec1_hd_video__T09__07_071.jpg Rec1_hd_video__T09__04_714.jpg Rec1_hd_video____57_958.jpg Rec1_hd_video____44_461.jpg Rec1_hd_video____17_731.jpg . Post-Procedure Complications: none. [...] 5. Otherwise normal colo (more content not included)...[facility] HospitalComment on above:Result Comment: Electronically Signed By: Lesley ROMERO, González Cadena\.br\Date and Time Signed: 05/11/24 09:07 ESTOther Comment: Missing Attachment - attachment storage system not supported [id number] Can be viewed in source systemMissing Attachment - attachment storage system not supported [id number] Can be viewed [facility] systemMissing Attachment - attachment storage system not supported [id number] Can be viewed in source systemMissing Attachment - attachment storage system not supported [id number] Can be viewed in so ce systemMissing Attachment - attachment storage system not supported [id number] Can be viewed in source systemMissing Attachment - attachment storage system not supported [id number] Can be viewed in source systemMissing Attachment - attachment storage system not supported [id number] Can be viewed in source systemMissing Attachment - attachment storage system not supported [id number] Can be viewed in source [id number] NoteHistory and Physical Patient: TATE ENCARNACION Age: [...] qAM, # 75 gram, Refills(s) 3, Pharmacy: [facility], 165, cm, 05/07/24 9:19:00 EST, Height/Length Dosing, 108.1, kg, 05/07/24 9:19:00 EST, Weight Dosing Questran 4 g/9 g oral powder: = 1 packet(s), Oral, BID, # 60 EA, Refills(s) 0, Pharmacy: [facility], 170, cm, 04/24/24 8:57:00 EST, Height/Length Dosing, 108.6, kg, 04/24/24 8:57:00 EST, Weight Dosing Zenpep 60,000 units-189,600 units-252,600 units oral delayed release capsule: See Instructions, 300cap(s), Refill(s) 3, Take 2 caps with each meal and 1 with each snack, [facility], 170, cm, 04/24/24 8:57:00 EST, Height/Length Dosing, 108.6, kg, 04/24/24 8:57:00 EST, Weight Dosing tadalafil 20 mg Tab: 20 mg = 1 tab(s), Oral, As Directed, PRN for erectile dysfunction, Pt to take one tab 1 hour prior to sexual activity. Do not exceed 20mg in 24 hours., # 30 tab(s), Refills(s) 0,Pharmacy: [facility], 165, cm, 05/07/24 9:19:00 Logan DASH... [...] hypertension (high blood pressure) / SNOMED CT 94212007 / Confirmed Thyroid function tests abnormal / SNOMED CT 594716805 / Confirmed Anemia of chronic disorder (low iron) / SNOMED CT 838189250 / Confirmed Bloating / SNOMED CT 797355469 / Confirmed Black stool / SNOMED CT 941585891 / Confirmed Chronic GERD / SNOMED CT 837318816 / Confirmed Decreased sexual desire / SNOMED CT 500105783 / Confirmed Alcohol drinker / SNOMED CT 498324322 / Confirmed Stress-related physiological response affecting medical condition / SNOMED CT 51052435 / Confirmed High triglycerides / SNOMED CT 122911902 / Confirmed Obesity due to excess calories / SNOMED CT 5866175731 / Confirmed ED (erectile dysfunction) / SNOMED CT 0098310031 / Confirmed Hypogonadism male / SNOMED CT 97807182 / Confirmed Screening PSA (prostate specific antigen) / SNOMED CT 170039831 / Confirmed BPH with urinary obstruction / SNOMED CT 3376727901 / Confirmed Acquired buried penis / SNOMED CT 447926883 / Confirmed Histories Past Medical History: No [...] (MAY 11 07:18) BMI 37.58 (MAY 11:18) General: in Nad Abdomen: Soft, NTND Impression and Plan Impression: change in bowel habits Plan: -EGD and ColonoscopyBerger HospitalComment on above:Result Comment: Electronically Signed By: Lesley ROMERO, González Cadena\.br\Date and Time Signed: 05/11/24 08:34 [id number] NoteProgress Note-Physician Patient: TATE ENCARNACION Age: 53 [...] qAM, # 75 gram, Refills(s) 3, Pharmacy: [facility], 165, cm, 05/07/24 9:19:00 EST, Height/Length Dosing, 108.1, kg, 05/07/24 9:19:00 EST, Weight Dosing Questran 4 g/9 g oral powder: = 1 packet(s), Oral, BID, # 60 EA, Refills(s) 0, Pharmacy: [facility], 170, cm, 04/24/24 8:57:00 EST, Height/Length Dosing, 108.6, kg, 04/24/24 8:57:00 EST, Weight Dosing Zenpep 60,000 units-189,600 units-252,600 units oral delayed release capsule: See Instructions, 300cap(s), Refill(s) 3, Take 2 caps with each meal and 1 with each snack, [facility], 170, cm, 04/24/24 8:57:00 EST, Height/Length Dosing, 108.6, kg, 04/24/24 8:57:00 EST, Weight Dosing tadalafil 20 mg Tab: 20 mg = 1 tab(s), Oral, As Directed, PRN for erectile dysfunction, Pt to take one tab 1 hour prior to sexual activity. Do not exceed 20mg in 24 hours., # 30 tab(s), Refills(s) 0,Pharmacy: [facility], 165, cm, 05/07/24 9:19:00 EST, Hei... [...] Problems Acquired buried penis / SNOMED CT 881839189 / Confirmed Alcohol drinker / SNOMED CT 402609684 / Confirmed Anemia of chronic disorder (low iron) / SNOMED CT 021072576 / Confirmed Benign hypertension (high blood pressure) / SNOMED CT 37911070 / Confirmed Black stool / SNOMED CT 118387537 / Confirmed Bloating / SNOMED CT 619442635 / Confirmed BPH with urinary obstruction / SNOMED CT 7042454406 / Confirmed Chronic GERD / SNOMED CT 909668682 / Confirmed Decreased sexual desire / SNOMED CT 193223762 / Confirmed ED (erectile dysfunction) / SNOMED CT 6048536565 / Confirmed High triglycerides / SNOMED CT 086931326 / Confirmed Hypogonadism male / SNOMED CT 25616740 / Confirmed Obesity due to excess calories / SNOMED CT 9811675197 / Confirmed Screening PSA (prostate specific antigen) / SNOMED CT 110558983 / Confirmed Stress-related physiological response affecting medical condition / SNOMED CT 90085339 / Confirmed Thyroid function tests abnormal / SNOMED CT 441160014 / Confirmed Canceled: Low libido / SNOMED CT 111598119, Active Problems (16) Acquired buried penis Alcohol [...] have been selected or (more content not included)...Berger HospitalComment on above:Result Comment: Electronically Signed By: Jasvir ROMERO, Cody Alvarez\.br\Date and Time Signed: 05/11/24 08:21 [id number] Hospital Discharge instructions Patient Education 05/07/2024 09:53:04 [...] therapy. Follow these instructions at home: Take ozss-ijn-vkelkeh and prescription medicines only as told by [...] provider. Document Revised: 11/27/2020 Document Reviewed: 11/27/2020 [employer] Patient Education 2023 [employer]. 05/07/2024 09:39:27 Erectile Dysfunction Erectile Dysfunction Erectile [...] Follow these instructions at home: Medicines Take yxoy-iaq-lscnuui and prescription medicines only as told by [...] provider. Document Revised: 06/24/2021 Document Reviewed: 06/24/2021 [employer] Patient Education 2023 [employer]. Follow Up Care 04/27/2024 13:04:43 With:AURORA ROMERO, Ji Be, URL Address: [facility] [address], [place] [address]- [phone] When: Unknown Comments:4 mos w/ PSA and T level [facility] Fabian 01-27-2025 NotePatient Education Urology Hypogonadism, Male Male [...] Follow these instructions at home: ??? Take vmug-gtd-hggfxps and prescription medicines only as told by [...] sure you discuss any (more content not included)...Berger HospitalEvaluation + Plan note Future Appointments Appointment Date:05/04/2024 09:30:00 AM Scheduled Provider: Location:[facility] Appointment Type:Surgery FT Appointment Date:05/11/2024 09:00:00 AM Scheduled Provider:Alejandra Hayden MD Location:[facility] Appointment Type:[facility] Follow Up Future Scheduled Tests Laboratory* Pancreatic Elastase, Fecal 04/24/24 * Pancreatic Elastase, Fecal 04/24/24 * Calprotectin, Fecal 04/24/24 Radiology* US Abdomen, Limited 04/24/24 [facility] Evaluation + Plan note Future Appointments Appointment Date:05/04/2024 09:30:00 AM Scheduled Provider: Location:[facility] Appointment Type:Surgery FT Appointment Date:05/11/2024 09:00:00 AM Scheduled Provider:Alejandra Hayden MD Location:[facility] Appointment Type:[facility] Follow Up Diagnostic Tests Pending * Celiac Disease Comprehensive 04/24/24 * Testosterone Level Total 04/24/24 Future Scheduled Tests Laboratory* Pancreatic Elastase, Fecal 04/24/24 * Pancreatic Elastase, Fecal 04/24/24 * Calprotectin, Fecal 04/24/24 Radiology* US Abdomen, Limited 04/24/24 [facility] Evaluation + Plan note Future Appointments Appointment Date:04/26/2024 08:30:00 AM Scheduled Provider: [facility] Type:US Abdominal/Pelvis (FT) Appointment Date:05/04/2024 09:30:00 AM Scheduled Provider: Location:[facility] Appointment Type:Surgery FT Appointment Date:05/11/2024 09:00:00 AM Scheduled Provider:Alejandra Hayden MD Location:[facility] Digestive [facility] Appointment Type:[facility] Follow Up Diagnostic Tests Pending * Calprotectin, Fecal 04/25/24 * Pancreatic Elastase, Fecal 04/25/24 Future Scheduled Tests Radiology* US Abdomen, Limited 04/26/24 [facility] evaluation + Plan note Future Appointments Appointment Date:05/04/2024 09:30:00 AM Scheduled Provider: Location:[facility] Appointment Type:Surgery FT Appointment Date:05/11/2024 09:00:00 AM Scheduled Provider:Alejandra Hayden MD Location:[facility] Appointment Type:[facility] Follow Up [facility] Evaluation + Plan note Future Appointments Appointment Date:05/11/2024 08:15:00 AM Scheduled Provider: Location:[facility] Appointment Type:Surgery FT Appointment Date:05/21/2024 09:00:00 AM Scheduled Provider:González Sutton MD Location:[facility] Appointment Type:[facility] Follow Up Appointment Date:09/07/2024 09:45:00 AM Scheduled Provider:Ji SIMON MD Location:[facility] Appointment Type:URO Office Visit Diagnostic Tests Pending * Testosterone Level Total 05/07/24 * PSA Screen, Total 05/07/24 [facility] evaluation + Plan note Future Appointments Appointment Date:09/07/2024 09:45:00 AM Scheduled Provider:Ji SIMON MD Location:[facility] Appointment Type:URO Office Visit [facility] Evaluation + Plan note Future Appointments Appointment Date:09/14/2024 08:00:00 AM Scheduled Provider: [facility] Appointment Type:URO Nurse Visit [facility] evaluation + Plan note Future Appointments Appointment Date:10/15/2024 09:00:00 AM Scheduled Provider: [facility] Appointment Type:URO Nurse Visit [facility] evaluation + Plan note Future Appointments Appointment Date:11/12/2024 08:45:00 AM Scheduled Provider: Location:[facility] Appointment Type:URO Nurse Visit Appointment Date:12/11/2024 09:00:00 AM Scheduled Provider: Location:[facility] Appointment Type:URO Nurse Visit [facility] evaluation + Plan note Future Appointments Appointment Date:11/30/2024 12:30:00 PM Scheduled Provider: [facility] Type:EMG Unilateral Upper Extremity Appointment Date:12/11/2024 09:00:00 AM Scheduled Provider: [facility] App[facility] Type:URO Nurse Visit Appointment Date:12/24/2024 08:45:00 AM Scheduled Provider: [facility] Appoint[facility] Type:URO Nurse Visit Appointment Date:01/07/2025 03:15:00 PM Scheduled Provider:Ji SIMON MD Location[facility] Appointment Type:URO Office Visit [facility] evaluation + Plan note Future Appointments Appointment Date:12/24/2024 08:45:00 AM Scheduled Provider: [facility] Appointment Type:URO Nurse Visit Appointment Date:01/07/2025 03:15:00 PM Scheduled Provider:Ji SIMON MD [facility] Appoint[facility] Type:URO Office Visit [facility] evaluation note* Diagnosis Swelling of right hand- [...] Narrative No data available for this section [facility] Hospital Discharge instructions No data available for this section [facility] Progress note No data available for this section [facility] Reason for visit Narrative* Rehabilitation - Outpatient (Routine) - Authorized Specialty Diagnoses / Procedures Referred By Briseida rahman Referred To Contact Occupational Therapy / Physical Therapy Diagnoses Swelling of R hand Procedures AL OCCUPATIONAL THERAPY EVALUATION AL OFFICE/OUTPATIENT NEW HIGH MDM 60 MINUTES Genoveva Cartagena MD [address] [place] [address] [place] [address] Phone: tel: fax: Jazlyn Wilburn, OT [address] [place] [address] Phone: tel: fax: Referral ID Status Reason Start Date Expiration Date V isits Requested Visits Authorized [id number] Authorized 05/15/2024 11/11/2024 30 30 [facility] - Outpatient (Routine) - Authorized Specialty Diagnoses / Procedures Referred By Briseida rahman Referred To Contact Occupational Therapy / Physical Therapy Diagnoses Swelling of R hand Procedures AL OCCUPATIONAL THERAPY EVALUATION AL OFFICE/OUTPATIENT NEW HIGH MDM 60 MINUTES Genoveva Cartagena MD [address] [place] [address] [place] [address] Phone: tel: fax: Jazlyn Wilburn, OT [address] [place] [address] Phone: tel: fax: Referral ID Status Reason Start Date Expiration Date V isits Requested Visits Authorized [id number] Authorized 05/15/2024 04/10/2025 30 30 [facility] [...] content) DATE CREATED AUTHOR [facility]2018 [facility] DATE CREATED AUTHOR AUTHOR'S ORGANIZ ATION 04/27/2024 [facility] DATE CREATED AUTHOR AUTHOR'S ORGANIZ ATION 04/28/2024 [facility] DATE CREATED AUTHOR AUTHOR'S ORGANIZ ATION 04/30/2024 [facility] DATE CREATED AUTHOR AUTHOR'S ORGANIZ ATION 05/18/2024 [facility] DATE CREATED AUTHOR AUTHOR'S ORGANIZ ATION 05/19/2024 [facility] DATE CREATED AUTHOR AUTHOR'S ORGANIZ ATION 05/27/2024 [facility]ical [facility] DATE CREATED AUTHOR AUTHOR'S ORGANIZ ATION 09/11/2024 [facility] DATE CREATED AUTHOR AUTHOR'S ORGANIZ ATION 11/16/2024 [facility] DATE CREATED AUTHOR AUTHOR'S ORGANIZ ATION 12/13/2024 [facility] Patient Care team informatio n (unrecognized section and content) 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 Specialty Start Date End Date Unallocated, Jose Hough MD [address] [place], [place] [address] [address] PCP - General Family Medicine 04/19/24 Kira Garrison MD [address] [place] [address] Referring Physician Family Medicine 04/19/24 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 Specialty Start Date End Date Unallocated, Jose Hough MD Count includes the [facility] [place] [address] PCP - General Family Medicine 04/19/24 Kira Garrison MD [address] [place] [address] Referring Physician Family Medicine 04/19/24 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 Specialty Start Date End Date Unallocated, Jose Hough MD [address] [place], [place] [address] [address] PCP - General Family Medicine 04/19/24 Kira Garrison MD [address] [place], [place] [id number] Referring Physician Family Medicine 04/19/24 Sandra Castellanos DO [address] [address] Referring Physician Neurology 05/17/24 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 Specialty Start Date End Date Unallocated, Jose Hough MD [address] [place], [place] [address] [address] PCP - General Family Medicine 04/19/24 Kira Garrison MD [address] [place] [address] Referring Physician Family Medicine 04/19/24 Sandra Castellanos DO [address] [place] [address] Referring Physician Neurology 05/17/24 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 Specialty Start Date End Date Unallocated, Noms MD Gianluca [address] [place] [address] PCP - General Family Medicine 04/19/24 Kira Garrison MD [address] [place], [place] [id number] Referring Physician Family Medicine 04/19/24 Sandra Castellanos DO [address] [place] [address] Referring Physician Neurology 05/17/24 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 Specialty Start Date End [place] Unallocated, [place] [address] [place] [id number] PCP - General Family Medicine 04/19/24 Kira Garrison MD [address] [place] [address] Referring Physician Family Medicine 04/19/24 Sandra Castellanos DO [address] [place] [address] Referring Physician Neurology 05/17/24 Reason for Visit (unrecogniz ed section and content) Reason Comments Migraine Specialty Diagnoses / Procedures Referred By Briseida t Referred To Contact Neurology Diagnoses Migraine, unspecified, not intractable, without status migrainosus (CMS/[facility]) Procedures AL OFFICE/OUTPATIENT NEW LOW MDM 30 MINUTES Kira Garrison MD [address] [place] [address] Phone: tel: fax: Sandra Castellanos DO [address] [place] [address] Phone: tel: fax: Referral ID Status Reason Start Date Expiration Date V isits Requested Visits Authorized [id number] Closed Consult and Treat 04/18/2024 10/15/2024 1 [...] BE BASED ON THE PRIMARY CLINICAL RECORDS. [employer] [facility]. provides no warranty or guarantee of the accuracy or completeness of information in this document.
== END 2024-12-20 10:45 | disposition home or self-care (01) ==
LOC: LAB 10:45
PROVIDERS: PCP Nurse Practitioner Family; Visit Provider Nurse Practitioner Family
DX: E03.9 Hypothyroidism, unspecified (principal)
CPT/HCPCS: 36415; 84436; 84443; 84481

== ENCOUNTER 2024-12-20 10:47 | Outpatient (OUT) | payer OTHER, SELFPAY ==
--- NOTE | 2024-12-20 11:00 | XR_ITS ---
The [address] [address] Patient Name: TATE ENCARNACION MRN: [id number] date: 1970 Sex: M Assigned Patient Location: [facility] Current Patient Location: [facility] Accession/Order Number: [id number] Exam Date: 12/20/2024 11:10 Report Date: 12/20/2024 11:54 At the request of: EH ABDUL MD Procedure: XR lumbar spine min 4V LUMBAR SPINE -4 views: CLINICAL HISTORY: Back pain and bilateral lower extremity radiculopathy for the past 6 days. No injury. COMPARISON: None AP, lateral and both oblique views of the lumbosacral junction were obtained. There is no acute compression fracture. No significant displacement is seen. Slight disc space narrowing is visualized at L4-5 and the lumbosacral junction. There are tiny endplate spurs. Lower lumbar facet hypertrophy is seen. No pars defect is identified. The sacroiliac joints are maintained and there is mild sclerosis. There are no paraspinal soft tissue abnormalities. XR/XR lumbar spine min 4V IMPRESSION: DEGENERATIVE CHANGES. NO ACUTE PLAIN FILM FINDINGS. Impression dictated by: Bernadine Carcamo M.D. 12/20/2024 11:54 AM Dictation Location: [employer] Electronically authenticated by: [id number] Y Date: 12/20/2024 11:54
--- OUTSIDE RECORDS SUMMARY | 2024-12-20 11:30 | XMS_ITS | CCD ---
Author Organization [facility] Care Team Providers Care 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 Name Role Phone NADERER, LUIS ANTONIO A [...] Unallocated , Noms Provider Primary Care Provi [facility] Sandra Castellanos DO Unavailable [phone] Alejandra Hayden A. Referring Unavailable Ji SIMON [...] ble SIMON, Ji R Attending Unavailable SIMON, Ji [...] Medication Allergies] Propensity to adverse reactions (disorder) [facility] Repository Medications Current Medications Medication Drug Class(es) Dates Sig (Normalized) Sig (Original) amylase 129433 unt / lipase 93347 unt / protease [id number] unt delayed release oral capsule (5 sources) Start: 07-17-2024 Creon 36,000 units oral delayed release capsule 2 cap(s), Oral, TID, 360 cap(s), Refill(s) 3, [facility], 170, cm, 07/17/24 13:04:00 EDT, Height/Length Dosing, 101, kg, 07/17/24 13:04:00 EDT, Weight Dosing Start Date: 07/17/24 Status: Ordered Quantity: 360.0 Unit: cap(s) Repeat number: 4 amylase 874070 UNT / lipase 31040 UNT / protease [id number] UNT Delayed Release Oral Capsule [Zenpep] (3 sources) Start: 04-30-2024 Zenpep 60,000 units-189,600 units-252,600 units oral delayed release capsule See Instructions, 300 cap(s), Refill(s) 3, Take 2 caps with each meal and 1 with each snack, [facility], 170, cm, 04/24/24 8:57:00 EST, [...] gm, Oral, BID, 378 gm, Refill(s) 11, [facility], 170, cm, 05/11/24 7:28:00 EST, Height/Length Dosing, 108.6, kg, 05/11/24 7:28:00 EST, Weight Dosing Start Date: 05/14/24 Status: Ordered Quantity: 378.0 Unit: g Repeat number: 12 Start: 04-24-2024 Questran 4 g/9 g oral powder = 1 packet(s), Oral, BID, # 60 EA, Refills(s) 0, Pharmacy: [facility], 170, cm, 04/24/24 8:57:00 EST, Height/Length [...] Ordered Start: 04-11-2024 take 1 tablet by kaetrina once daily levothyroxine (Synthroid, Levoxyl) 50 MCG [...] BID, # 180 cap(s), Refills(s) 3, Pharmacy: [facility], 170, cm, 05/11/24 7:28:00 EST, Height/Length Dosing, 108.6, kg, 05/11/24 7:28:00 EST, Weight Dosing Start Date: 05/11/24 Status: Ordered Quantity: 180.0 Unit: cap(s) Repeat number: 4 60 actuat testosterone 20.25 mg/actuat topical gel (2 sources) Androgen Start: 05-07-2024 AndroGel Pump 20.25 mg/1.25 g (1.62%) transdermal gel = 2 pump, Topical, qAM, # 75 gram, Refills(s) 3, Pharmacy: [facility], 165, cm, 05/07/24 9:19:00 EST, Height/Length Dosing, 108.1, kg, 05/07/24 9:19:00 EST, Weight Dosing Start Date: 05/07/24 Status: Ordered testosterone cypionate 200 mg/mL IM Claribel (2 sources) Start: 11-12-2024 testosterone cypionate 200 mg/mL IM Claribel 400 mg, IntraMuscular, q4wk, # 10 mL, Refills(s) 3, Pharmacy: [facility], 165, cm, 09/10/24 15:33:00 EDT, Height/Length [...] hours., # 30 tab(s), Refills(s) 0, Pharmacy: [facility], 165, cm, 09/10/24 15:33:00 EDT, Height/Length [...] hours., # 30 tab(s), Refills(s) 0, Pharmacy: [facility], 165, cm, 09/10/24 15:33:00 EDT, Height/Length [...] hours., # 30 tab(s), Refills(s) 0, Pharmacy: [facility], 165, cm, 05/07/24 9:19:00 EST, Height/Length [...] AM EDT With: Where: [facility] [address] [address]- Tuesday 3:15 PM EDT With: Ji SIMON MD Where: [facility] [address] [address]- Medications What How Much When Why Instructions [...] signed up for this yet, please contact [employer] at [phone] to get signed up today. Language Information Language assistance services are available as needed. Eric [facility] Reminderson 11-13-2024 Reminders Reminders From: Gina Barbosa [...] the same time. From: Gina Barbosa To: [facility] - Reminders/Recalls; Sent: 08/20/2024 17:06:58 EDT [...] patient to call back to schedule. Normal [facility] Ambulatory Visit Summaryon 0 10-15-2024 Ambulatory Visit [...] signed up for this yet, please contact [employer] at [phone] to get signed up today. Language Information Language assistance services are available as needed. Normal [facility] Ambulatory Visit Summaryon 0 09-14-2024 Ambulatory Visit [...] for choosing us for your care. Normal [facility] Ambulatory Visit Summaryon 0 09-10-2024 Ambulatory Visit Summary Ambulatory Visit Summary TATE ENCARNACION :1970 Visit Date:09/10/2024 Ambulatory Visit Instructions Your Diagnosis Hypogonadism male ED (erectile dysfunction) BPH with urinary obstruction Screening PSA (prostate specific antigen) Your Care Team Attending Physician - Ji SIMON MD Primary Care Physician - KRIA GARRISON CNP This Is Your Medications List [...] level Where: [facility] [address] , [place] [address]- [phone] Medications What How Much When Why Instructions Unchanged tadalafil (tadalafil 20 mg Tab) 1 Tablets By Mouth As Directed as needed for for erectile dysfunction ED (erectile dysfunction) Pt to take one tab 1 hour prior to sexual activity. Do not exceed 20mg in 24 hours. Pickup at [facility] Unchanged cholecalciferol (Vitamin D3 50 mcg [...] physician if questions or concerns Pharmacy Information [facility]: [address] [place], [place] [phone] Allergies No Known Allergies No Known Medication [...] testosteron (more content not included)... Normal [facility] Urology Office/Clinic Noteon 09-10-2024 Urology Office/Clinic [...] -Cont Cialis wo changes. Refills sent to [facility] Alfred. 3. BPH with urinary obstruction [...] Be, URL [facility] [address], [place] [address]- [phone] Additional Instructions: 4 mos w/ T level [...] Daily Von (more content not included)... Normal [facility] Comment on above: Result Comment: Elec tronically [...] three at the same time. Normal [facility] Gastroenterology Office/Clin ic Noteon 08-16-2024 Gastroenterology [...] first-degree relative, we will send him to [facility] for genetic counseling the based on that [...] inactivated - Not Given Patient Refuses Normal [facility] Comment on above: Result Comment: Elec tronically [...] ROMERO, Ji Be Where: [facility] [place] [address]- Medications What How Much When Why Instructions Changed pancrelipase (Creon 36,000 units oral delayed release capsule) 2 Capsules By Mouth 3 times a day Pickup at [facility] Unchanged cholecalciferol (Vitamin D3 50 mcg [...] physician if questions or concerns Pharmacy Information [facility]: [address] [place], [place] [phone] Allergies No Known Allergies No Known Medication [...] for choosing us for your care. Normal [facility] Gastroenterology Office/Clin ic Noteon 07-17-2024 Gastroenterology [...] [place], MED In 6 weeks [address] [facility], [address] [phone] Additional Instructions: Problem List/Past Medical History Ongoing [...] inactivated - Not Given Patient Refuses Normal [facility] Comment on above: Result Comment: Elec tronically Signed By: Lesley ROMERO, González Cadena\.br\Date and Time Signed: 07/17/24 13:53 EDT\.br\Electronically Co-Signed By: Syeda Chavez MA\.br\Date and Time Co-Signed: 07/17/24 13:51 EDT Reminderson 06-05-2024 Reminders Reminders From: Glo Hilario I To: [facility] - Reminders/Recalls; Sent: 06/05/2024 08:25:46 EST Show up: 03/11/2031 08:25:00 EST Subject: Colonoscopy recall Due Date/Time: 05/11/2031 08:25:00 EST Reminder/Recall [address] Sutton 05/11/24 Normal [facility] Gastroenterology Office/Clin ic Noteon 05-21-2024 Gastroenterology Office/Clinic Note Gastroenterology Office/Clinic Note Chief Complaint follow up to egd/colonoscopy HPI Staff Established patient is a(n) 53 year old male who presents today for a follow up to EGD & Colonoscopy on 05/11/24. Pt previously seen with Dr. Hayden, but insurance was denying EGD/Colon stating he was out of network for [employer]. Pt was r/s with Dr. Sutton. Fecal [...] recorded by (more content not included)... Normal [facility] Comment on above: Result Comment: Elec tronically Signed By: González Sutton MD\.br\Date and Time Signed: 05/21/24 09:44 EST\.br\Electronically Co-Signed By: Syeda Chavez MA\.br\Date and Time Co-Signed: 05/21/24 09:42 EST Surgical Pathology Reporton 05-17-2024 Surgical Pathology Report [facility] [address] [place] [address]- Surgical Pathology Report Collected Date/Time: 05/11/2024 08:38 EST Pathologist: Triny Israel MD Received Date/Time: 05/11/2024 10:55 EKTA Sutton MD, Goznález Sutton MD, González Cadena 07 Surgical Pathology [...] recognition technology and might contain unintended computerized manufacturing storeperson errors. The use of one or more reagents in the above tests is regulated as an analyte specific reagent (ASR). The test or tests are ordered following initial H&E microscopic examination. The performance characteristics were determined by the [facility] of [facility] Surgical Pathology. They have not been cleared or approved by the US Food and Drug Administration. The FDA has determined that such clearance or approval is not necessary. These tests are used for clinical purposes. They should not be regarded as investigational or for research. Appropriate positive and negative co (more content not included)... Normal [facility] Comment on above: Performed By: #### [id number] #### [facility] [address] [place], [place] [address] Discharge Instructionson Discharge Instructions Discharge Instructions TATE [...] With: Lesley ROMERO, González Cadena Where: [facility] [address] [place] [address] [address] [address]- Tuesday 9:45 AM EDT With: Ji SIMON MD Where: [facility] [address] [place] [address] [place] [address]- Medications What How Much When Why Instructions Next Dose New omeprazole (omeprazole 40 mg Cap-DR) 1 Capsules By Mouth 2 times a day Refills: 3 Pickup at [facility] Unchanged cholecalciferol (Vitamin D3 50 mcg [...] a day (in the morning) Pharmacy Information [facility]: [address] [place], [place] [phone] Test Results No qualifying data available. Allergies [...] tarry stool (more content not included)... Normal [facility] Comment on above: Result Comment: Jose barrera [...] With: Lesley ROMERO, González Cadena Where: [facility] [address] [place] [address]- Tuesday 9:45 AM EDT With: AURORA ROMERO, Ji Be Where: [facility] [address] [facility] [place] [address] [place] [address]- Medications What How Much When Why Instructions Next Dose New omeprazole (omeprazole 40 mg Cap-DR) 1 Capsules By Mouth 2 times a day Refills: 3 Pickup at [facility] Unchanged cholecalciferol (Vitamin D3 50 mcg [...] a day (in the morning) Pharmacy Information [facility]: [address] [place], [place] [phone] Test Results No qualifying data available. Allergies [...] malt extra (more content not included)... Normal [facility] Comment on above: Result Comment: Elec tronically Signed By: Cy SADLER, Mariama\.jeaneth\Date and Time Signed: 05/11/24 09:30 EST Main OR Intraoperative Recor don 05-11-2024 Main OR Intraoperative Record Main OR Intraoperative Record IntraOp Document Type FT Summary Primary Physician: González Sutton MD Finalized Date/Time: 05/11/24 10:41:05 Pt. Name: SHASHANKTATE/Sex: 1970 Male Med Rec #: [id number] Physician: Alejandra Hayden MD Financial #: [id number] Pt. Type: O Room/Bed: / Admit/Disch: 05/11/24 [...] Negrete RN, Sheldon Martines Role Performed Anesthesiologist Bridge Construction Inspector - Primary Scrub - Primary Draw Press Operator Time In 05/11/24 08:30:00 05/11/24 08:30:00 05/11/24 [...] and tissue Entry 1 Skin Integrity Intact, Bucks, Warm, & Skin Abnormality No Dry Outcomes Met? Yes Last Modified By: Becky Negrete RN 05/11/24 09:06:34 Post-Care Text: The patient is free from signs and sym (more content not included)... Normal [facility] Main OR PACU II Recordon Main OR PACU II Record Main OR PACU II Record PACU Phase II Document Type FT Summary Primary Physician: Lesley ROMERO, González Cadena Finalized Date/Time: 05/11/24 10:02:45 Pt. Name: TATE ENCARNACION/Sex: 1970 Male Med Rec #: [id number] Physician: Alejandra Hayden MD Financial #: [id number] Pt. Type: O Room/Bed: / Admit/Disch: 05/11/24 [...] By: Mariama Benoit RN 05/11/24 10:02 Normal [facility] Main OR Preoperative Recordo n 05-11-2024 Main OR Preoperative Record Main OR Preoperative Record Holding Area Document Type FT Summary Primary Physician: González Sutton MD Finalized Date/Time: 05/11/24 07:18:36 Pt. Name: SHASHANK TATE Wai/Sex: 1970 Male Med Rec #: [id number] Physician: Alejandra Hayden MD Financial #: [id number] Pt. Type: O Room/Bed: / Admit/Disch: 05/11/24 [...] Rachel Cortez RN 05/11/24 07:18 Normal [facility] Ambulatory Visit Summaryon 0 05-07-2024 Ambulatory [...] With: Where: [facility] Tuesday 9:00 AM EST With: Lesley ROMERO, González Cadena Where: [facility] [address] [address]- Tuesday 9:45 AM EDT With: Ji SIMON MD Where: [facility] [address] [place] [address]- You Need to Schedule the Following Appointments Follow Up with AURORA ROMERO, Ji Be, URL When: Comments: 4 mos w/ PSA and T level Where: [facility] [address], [place] [phone] Medications What How Much When Why Instructions New tadalafil (tadalafil 20 mg Tab) 1 Tablets By Mouth As Directed as needed for for erectile dysfunction Pt to take one tab 1 hour prior to sexual activity. Do not exceed 20mg in 24 hours. Pickup at [facility] New testosterone (AndroGel Pump 20.25 mg/ 1.25 g (1.62%) transdermal gel) 2 Pump Topical Once a day (in the morning) Refills: 3 Pickup at [facility] Unchanged cholecalciferol (Vitamin D3 50 [...] physician if questions or concerns Pharmacy Information [facility]: [address] [place] [phone] Allergies No Known Allergies No Known Medication [...] gives men (more content not included)... Normal [facility] Urology Office/Clinic Noteon 05-07-2024 Urology Office/Clinic Note [...] buried peni (more content not included)... Normal [facility] Comment on above: Result Comment: Elec tronically Signed By: AURORA ROMERO, Ji Be\.br\Date and Time Signed: 05/07/24 10:05 EST\.br\Electronically Co-Signed By: Nirmala Lama\.br\Date and Time Co-Signed: 05/07/24 09:58 EST Calprotectin, Fecalon 2024 Calprotectin (Stl) [Mass/Mass] 15 mcg/gm Invalid Interpretation Code 0-120 [facility] Comment on above: Result Comment: Conc entration Interpretation Follow-Up < 5 - 50 ug/g Normal None >50 -120 ug/g Borderline Re-evaluate in 4-6 weeks >120 ug/g Abnormal Repeat as clinically indicated Performed at: [facility] [id number] [place], [place] [id number] MD Alfredo Green Performed By: #### 1 [id number] #### [facility] [address] [place] [address] Pancreatic Elastase, Fecalon 04-28-2024 Elastase.pancreatic (Stl) [Mass/Mass] 9 Low >200 [facility] Comment on above: Result Comment: Nicole re Pancreatic Insufficiency: <100 Moderate Pancreatic Insufficiency: 100 - 200 Normal: >200 Performed at: [facility] [address] [place], [place] [id number] MD Alfredo Green Performed By: #### 1 [id number] ####[facility] [address] [place] [address] US Abdomen, Limitedon 2024 US Abdomen, Limited [...] Transcribed by: MARIA C Technologist: Eric YING [facility] Celiac Disease Comprehensive on 04-25-2024 Endomysium IgA Ql (S) Negative Invalid Interpretation Code Negative [facility] Comment on above: Result Comment: Seru m is slightly lipemic. Performed By: #### 1 [id number] #### [facility] [address] [place] [address] Gliadin peptide IgA Qn (S) 4 unit(s) Invalid Interpretation Code 0-19 [facility] Comment on above: Result Comment: Nega tive 0 - 19 Weak Positive 20 - 30 Moderate to Strong Positive >30 Performed By: #### 1 [id number] #### [facility] [address] [place] [address] Gliadin peptide IgG Qn (S) 2 unit(s) Invalid Interpretation Code 0-19 [facility] Comment on above: Result Comment: Nega tive 0 - 19 Weak Positive 20 - 30 Moderate to Strong Positive >30 Performed By: #### 1 [id number] #### [facility] [address] [place] [address] IgA [Mass/Vol] 213 mg/dL Invalid Interpretation Code 90-386 [facility] Comment on above: Result Comment: Perf ormed at: [facility] [address] [id number] PhD Franklin Pollard Performed By: #### 1 [id number] #### [facility] [address] [place] [address] tTG IgA Qn (S) <2 Invalid Interpretation Code 0-3 [facility] Comment on above: Result Comment: Nega tive 0 - 3 Weak Positive 4 - 10 Positive >10 Tissue Transglutaminase (tTG) has been identified as the endomysial antigen. Studies have demonstr- ated that endomysial IgA antibodies have over 99% specificity for gluten sensitive enteropathy. Performed By: #### 1 [id number] #### [facility] [address] [place] [address] tTG IgG Qn (S) <2 Invalid Interpretation Code 0-5 [facility] Comment on above: Result Comment: Nega tive 0 - 5 Weak Positive 6 - 9 Positive >9 Performed By: #### 1 [id number] #### [facility] [address] [place] [address] Testost Totalon 04-25-2024 Testosterone [Mass/Vol] 194 ng/dL Low 264-916 [facility] Comment on above: Result Comment: Adul t male reference interval is based on a population of healthy nonobese males (BMI <30) between 19 and 39 years old. Mildred, et.al. JCEM 2017,102;6021-8030. PMID: [id number]. Performed at: [facility] [id number] PhD Franklin Pollard Performed By: #### 2 [id number] #### [facility] [address] [place] [address] Ambulatory Visit Summaryon 0 04-24-2024 Ambulatory Visit [...] AM EST With: Alejandra Hayden MD Where: [facility] [address] [place] [address]- You Need to Complete the Following C-Reactive [...] Decreased sexual desire, pp_set_radiology_subspecialty , [facility] Medications What How Much When Why Instructions New cholestyramine (Questran 4 g/ 9 g oral powder) 1 Packets By Mouth 2 times a day Irritable bowel syndrome with diarrhea Bloating Black stool Chronic GERD Pickup at [facility] Unchanged cholecalciferol (Vitamin D3 50 mcg [...] physician if questions or concerns Pharmacy Information [facility]: [address] [place] [phone] Medications and Immunizations Administered Not Given influenza [...] for choosing us for your care. Normal [facility] CHEMISTRYOrdered By: SYSTEM SYSTEM on 04-24-2024 CRP [Mass/Vol] 0.2 mg/dL Normal <=1.9mg/dL Remisol Chem CRPon 04-24-2024 CRP [Mass/Vol] 0.2 mg/dL Normal <=1.9 [facility] Comment on above: Performed By: #### 2 [id number] #### [facility] [address] [place] [address] Gastroenterology Office/Clin ic Noteon 04-24-2024 Gastroenterology Office/Clinic [...] BID, # 60 EA, Refills(s) 0, Pharmacy: [facility], 170, cm, 04/24/24 8:57:00 EST, Height/Length Dosing, 108.6, kg, 04/24/24 8:57:00 EST, Weight Dosing C-Reactive Protein Calprotectin, Fecal Celiac Disease Comprehensive Colonoscopy (Hospital Procedure) EGD Endoscopy (Hospital Procedure) IgA, Quant. Pancreatic Elastase, Fecal Pancreatic Elastase, Fecal Testosterone Level Total US Abdomen, Limited 2. Bloating (R14.0: Abdominal distension (gaseous)) Ordered: cholestyramine, = 1 packet(s), Oral, BID, # 60 EA, Refills(s) 0, Pharmacy: [facility], 170, cm, 04/24/24 8:57:00 EST, Height/Length Dosing, 108.6, kg, 04/24/24 8:57:00 EST, Weight Dosing C-Reactive Protein Calprotectin, Fecal Celiac Disease Comprehensive Colonoscopy (Hospital Procedure) EGD Endoscopy (Hospital Procedure) IgA, Quant. Pancreatic Elastase, Fecal Pancreatic Elastase, Fecal Testosterone Level Total US Abdomen, Limited 3. Black stool (K92.1: Melena) Ordered: cholestyramine, = 1 packet(s), Oral, BID, # 60 EA, Refills(s) 0, Pharmacy: [facility], 170, cm, 04/24/24 8:57:00 EST, Height/Length [...] BID, # 60 EA, Refills(s) 0, Pharmacy: [facility], 170, cm, 04/24/24 8:57:00 EST, Height/Length Dosing, 108.6, kg, 04/24/24 8:57:00 EST, Weight Dosing C-Reactive Protein Calprotectin, Fecal Celiac Disease Comprehensive Colonoscopy (Hospital Procedure) EGD Endoscopy (Hospital Procedure) IgA, Quant. Pancreatic Elastase, Fecal Pancreatic Elastase, Fecal Testosterone Level Total US Abdomen, Limited 5. Decreased sexual desire (F52.0: Hypoactive sexual desire disorder) Ordered: [facility] Internal Ambulatory Referral Pancreatic Elastase, Fecal Testosterone Level Total US Abdomen, Limited 6. Alcohol drinker (Z78.9: Other specified health status) 7. Stress-related physiological response affecting medical condition (F54: Psychological and behavioral factors associated with disorders or diseases classified elsewhere) 8. High triglycerides (E78.1: Pure hyperglyceridemia) 9. Obesity due to excess calories (E66.09: Ot (more content not included)... Normal [facility] Comment on above: Result Comment: Elec tronically Signed By: Jackelyn ROMERO, Alejandra Harrison.br\Date and Time Signed: 04/24/24 09:30 EST FREE T3on 03-15-2018 T3 free mass conc 3.10 pg/mL Normal 2.77-5.27 [facility] Comment on above: Performed By: #### B MP, LIVER, FT3, LIPID, PSASC, TSH, DLDL ####[facility] [id number] [place] FREE T4on 03-15-2018 T4 free mass conc 0.88 ng/dL Normal 0.78-2.19 [facility] Comment on above: Performed By: #### B MP, LIVER, FT3, LIPID, PSASC, TSH, DLDL ####[facility] [address] [place] TSHon 03-15-2018 Thyrotropin Qn 7.705 uIU/mL Critically high 0.470-4.680 [facility] Comment on above: Performed By: #### B MP, LIVER, FT3, LIPID, PSASC, TSH, DLDL ####[facility] [address] Thyrotropin Qn SEE BELOW Normal [facility] Comment on above: Result Comment: <0.3 4 UIU/ml HYPERTHYROID 0.34-5.60 UIU/ml EUTHYROID >5.60 UIU/ml HYPOTHYROID Performed By: #### B MP, LIVER, FT3, LIPID, PSASC, TSH, DLDL ####[facility] [address] TESTOSTERONE, TOTALon 2017 Testosterone [Mass/volume] in Serum or Plasma 314 ng/dL Normal 264-916 [facility] Comment on above: Result Comment: Adul t male reference interval is based on a population ofhealthy nonobese males (BMI <30) between 19 and 39 years old.gus Levy.al. JCEM 2017,102;4345-1033. PMID: [id number]. Performed By: #### B MP, LIVER, FT3, LIPID, PSASC, TSH, DLDL ####[facility] [address] [place] FREE T3on 01-02-2018 T3 free mass conc 2.98 pg/mL Normal 2.77-5.27 [facility] Comment on above: Performed By: #### B MP, LIVER, FT3, LIPID, PSASC, TSH, DLDL ####[facility] [address] [place] FREE T4on 01-02-2018 T4 free mass conc 0.89 ng/dL Normal 0.78-2.19 [facility] Comment on above: Performed By: #### B MP, LIVER, FT3, LIPID, PSASC, TSH, DLDL ####[facility] Lpaadwiwkd27[address] [place] TSHon 01-02-2018 Thyrotropin Qn 5.999 uIU/mL Critically high 0.470-4.680 [facility] Comment on above: Performed By: #### B MP, LIVER, FT3, LIPID, PSASC, TSH, DLDL ####[facility] [address] [place] [address] [place] Thyrotropin Qn SEE BELOW Normal [facility] Comment on above: Result Comment: <0.3 4 UIU/ml HYPERTHYROID 0.34-5.60 UIU/ml EUTHYROID >5.60 UIU/ml HYPOTHYROID Performed By: #### B MP, LIVER, FT3, LIPID, PSASC, TSH, DLDL ####[facility] Ynelyeqhdb9940 [address] [place] CBC AUTO DIFFon 09-14-2017 Basophils Auto #/vol (Bld) 0.1 103/ul Normal 0.0-0.1 [facility] Comment on above: Performed By: #### C BC ####[facility] [address] [place] [address] [place] Basophils/100 WBC Auto (Bld) 0.8 % Normal 0.2-2.0 [facility] Comment on above: Performed By: #### C BC ####[facility] W[address]fnq[address] [place], [place] [id number] [place] Eosinophils Auto #/vol (Bld) 0.1 103/ul Normal 0.0-0.7 [facility] Comment on above: Performed By: #### C BC ####[facility] [address] [place] [address] [place] Eosinophils/100 WBC Auto (Bld) 1.4 % Normal 0.9-7.0 [facility] Comment on above: Performed By: #### C BC ####[facility] [address] [place] [address] [place] Erythrocyte distribution width Auto Ratio (RBC) 13.2 % Normal 11.0-15.0 [facility] Comment on above: Performed By: #### C BC ####[facility] K[address] [place] [address] [place] Hematocrit Auto Volume Fraction (Bld) 43.7 % Normal 42.0-54.0 [facility] Comment on above: Performed By: #### C BC ####[facility] [address]xhcyxef[address] [place], [place] [id number] [place] Hemoglobin mass conc (Bld) 15.2 g/dL Normal 14.0-18.0 [facility] Comment on above: Performed By: #### C BC ####[facility] [address] [place] [address] [place] IG # 0.05 10e3/ul Critically high 0.00-0.03 [facility] Comment on above: Performed By: #### C BC ####[facility] [address] [place] [address] [place] IG % 0.7 % Critically high 0.0-0.5 [facility] Comment on above: Performed By: #### C BC ####[facility] [address]qdizvfa[address] [place], [place] [id number] [place] Lymphocytes Auto #/vol (Bld) 1.7 103/ul Normal 1.2-3.8 [facility] Comment on above: Performed By: #### C BC ####[facility] T[address]cp[address] [place], [place] [address]Aizsxs [place] Lymphocytes/100 WBC Auto (Bld) 23.7 % Normal 20.5-60.0 [facility] Comment on above: Performed By: #### C BC ####[facility] [address] [place] [address]Yxrszb [place] MANUAL DIFF REQ NO Normal [facility] Comment on above: Performed By: #### C BC ####[facility] [address] [place] [address]Nbgoul [place] MCH Auto Entitic mass (RBC) 33.8 pg Normal 25.9-34.0 [facility] Comment on above: Performed By: #### C BC ####[facility] Abgnseinys[address] [place], [place] [id number] [place] MCHC Auto mass conc (RBC) 34.8 g/dL Normal 29.9-35.2 [facility] Comment on above: Performed By: #### C BC ####[facility] [address] [place], [place] [id number] [place] MCV Auto Entitic volume (RBC) 97.1 fL Critically high 80.0-94.0 [facility] Comment on above: Performed By: #### C BC ####[facility] [address] [place], [place] [id number] Monocytes Auto #/vol (Bld) 0.5 103/ul Normal 0.3-0.8 [facility] Comment on above: Performed By: #### C BC ####[facility] [address] [place] [address]Qpgjok [place] Monocytes/100 WBC Auto (Bld) 7.0 % Normal 1.7-12.0 [facility] Comment on above: Performed By: #### C BC ####[facility] [address] [place] [address]Diwtdf [place] Neutrophils Auto #/vol (Bld) 4.7 103/ul Normal 1.4-6.5 [facility] Comment on above: Performed By: #### C BC ####[facility] [address]xjierdq549[address] [place] [id number] Colindres Neutrophils/100 WBC Auto (Bld) 66.4 % Normal 43.0-75.0 [facility] Comment on above: Performed By: #### C BC ####[facility] [address] [place] [address] 05007IbvrtfArpit Colindres Platelet mean volume Auto Entitic volume (Bld) 10.7 fL Normal 9.5-13.5 [facility] Comment on above: Performed By: #### C BC ####[facility] [address] [place], [place] [phone] Platelets Auto #/vol (Bld) 223 103/ul Normal 150-450 [facility] Comment on above: Performed By: #### C BC ####[facility] X[address] [place], [place] [address] RBC Auto #/vol (Bld) 4.50 106/ul Critically low 4.70-6.10 [facility] Comment on above: Performed By: #### C BC ####[facility] I[address]fvs[address] [place], [place] [phone] WBC Auto #/vol (Bld) 7.1 103/ul Normal 4.0-11.0 [facility] Comment on above: Performed By: #### C BC ####[facility] [address]wg[address] [place], [place] [phone] [place] DIRECT LDLon 09-14-2017 Cholesterol in LDL mass conc SEE BELOW Normal [facility] Comment on above: Result Comment: <100 mg/dl OPTIMAL 100 - 129 mg/dl NEAR OR ABOVE OPTIMAL 130 - 159 mg/dl BORDERLINE HIGH 160 - 189 mg/dl HIGH >190 mg/dl VERY HIGH Performed By: #### B MP, LIVER, FT3, LIPID, PSASC, TSH, DLDL ####[facility] [address] [place] [address]KqesoqArpit Colindres Cholesterol in LDL mass conc 45 mg/dL Normal [facility] Comment on above: Performed By: #### B MP, LIVER, FT3, LIPID, PSASC, TSH, DLDL ####[facility] Wrqqaxhirh7038 [address] [place] FREE T3on 09-14-2017 T3 free mass conc 4.33 pg/mL Normal 2.77-5.27 [facility] Comment on above: Performed By: #### B MP, LIVER, FT3, LIPID, PSASC, TSH, DLDL ####[facility] Cclqpgobrw5228 [address] [place] FREE T4on 09-14-2017 T4 free mass conc 0.67 ng/dL Critically low 0.78-2.19 [facility] Comment on above: Performed By: #### F T4 ####[facility] [address] [place] [address] [place] GLYCOHEMOGLOBIN A1Con 2017 Glucose mass conc 108 mg/dL Normal [facility] Comment on above: Performed By: #### A 1C ####[facility] [address] [place] [address] [place] Hemoglobin A1c/Hemoglobin.tota l mass fraction (Bld) 5.4 % Normal <=6.0 [facility] Comment on above: Performed By: #### A 1C ####[facility] Mffqlsvnde2591 [address] [place] LIPID PROFILEon 09-14-2017 CHOL-HDL RATIO NORM SEE BELOW Normal [facility] Comment on above: Result Comment: 3.3 - 4.4 LOW RISK 4.4 - 7.1 AVERAGE RISK 7.1 - 11.0 MODERATE RISK >11.0 HIGH RISK Performed By: #### B MP, LIVER, FT3, LIPID, PSASC, TSH, DLDL ####[facility] Plpctujchn0560 [address] [place] Cholesterol in HDL mass conc 34 mg/dL Normal [facility] Comment on above: Result Comment: A po sitive bias may be seen with a triglyceride level over 600 mg/dL Performed By: #### B MP, LIVER, FT3, LIPID, PSASC, TSH, DLDL ####[facility] Lkgnugtbvx5583 [address] [place] Cholesterol in HDL mass conc > or = 60 mg/dl - LOW CARDIOVASCULAR RISK <40 mg/dl - HIGH CARDIOVASCULAR RISK Normal [facility] Comment on above: Performed By: #### B MP, LIVER, FT3, LIPID, PSASC, TSH, DLDL ####[facility] Yym[address] [place] [phone] [place] Cholesterol mass conc 199 mg/dL Normal <=200 [facility] Comment on above: Performed By: #### B MP, LIVER, FT3, LIPID, PSASC, TSH, DLDL ####[facility] Lcpptkixto5959 [address] [place] Cholesterol.total/C holesterol in HDL mass ratio 6.0 {ratio} Normal [facility] Comment on above: Performed By: #### B MP, LIVER, FT3, LIPID, PSASC, TSH, DLDL ####[facility] Miydfyxtlr2451 [address] [place] Triglyceride mass conc 1177 mg/dL Critically high <=150 [facility] Comment on above: Performed By: #### B MP, LIVER, FT3, LIPID, PSASC, TSH, DLDL ####[facility] Ztkcbsobhl9579 [address] [place] LIVER PROFILEon 09-14-2017 Albumin mass conc 4.6 g/dL Normal 3.5-5.0 [facility] Comment on above: Performed By: #### B MP, LIVER, FT3, LIPID, PSASC, TSH, DLDL ####[facility] Mtfsegwcow0920 [address] [place] Albumin/Globulin mass ratio 1.5 {ratio} Normal [facility] Comment on above: Performed By: #### B MP, LIVER, FT3, LIPID, PSASC, TSH, DLDL ####[facility] Puuyabpxlm1451 [address] [place] ALP enzyme act/vol 66 U/L Normal 38-126 [facility] Comment on above: Performed By: #### B MP, LIVER, FT3, LIPID, PSASC, TSH, DLDL ####[facility] Bdlyjlmpnw9403 [address] [place] ALT enzyme act/vol 66 U/L Normal 21-72 [facility] Comment on above: Performed By: #### B MP, LIVER, FT3, LIPID, PSASC, TSH, DLDL ####[facility] Caiwhfqsnr4562 [address] [place] AST enzyme act/vol 48 U/L Normal 17-59 [facility] Comment on above: Performed By: #### B MP, LIVER, FT3, LIPID, PSASC, TSH, DLDL ####[facility] Ar[address] [place] [address] [place] BILI, CONJUGATED 0.0 mg/dL Normal 0.0-0.3 [facility] Comment on above: Performed By: #### B MP, LIVER, FT3, LIPID, PSASC, TSH, DLDL ####[facility] [address] [place] [address] [place] Bilirubin Ql (U) 0.3 mg/dL Normal 0.2-1.3 [facility] Comment on above: Performed By: #### B MP, LIVER, FT3, LIPID, PSASC, TSH, DLDL ####[facility] Fvbxzwegwh8140 [address] [place] Globulin Calculated mass conc (S) 3.1 g/dL Normal [facility] Comment on above: Performed By: #### B MP, LIVER, FT3, LIPID, PSASC, TSH, DLDL ####[facility] Knlohabfnj3147 [address] [place] Protein mass conc 7.7 g/dL Normal 6.1-8.2 [facility] Comment on above: Performed By: #### B MP, LIVER, FT3, LIPID, PSASC, TSH, DLDL ####[facility] [address] [place] [address] [place] PROF CHEM 8 (BAS METB)on Anion gap 3 molar conc 10.0 mmol/L Normal [facility] Comment on above: Performed By: #### B MP, LIVER, FT3, LIPID, PSASC, TSH, DLDL ####[facility] Qlcohhovrk1321 [address] [place] Calcium mass conc 9.6 mg/dL Normal 8.4-10.2 [facility] Comment on above: Performed By: #### B MP, LIVER, FT3, LIPID, PSASC, TSH, DLDL ####[facility] Gccqgzoosx3593 [address] [place] Chloride molar conc 104 mmol/L Normal 98-107 [facility] Comment on above: Performed By: #### B MP, LIVER, FT3, LIPID, PSASC, TSH, DLDL ####[facility] Kspbtmsjhe5710 [address] [place] CO2 molar conc 25.0 mmol/L Normal 22.0-30.0 [facility] Comment on above: Performed By: #### B MP, LIVER, FT3, LIPID, PSASC, TSH, DLDL ####[facility] Lwjmpqsial7297 [address] [place] Creatinine mass conc 0.96 mg/dL Normal 0.66-1.25 [facility] Comment on above: Performed By: #### B MP, LIVER, FT3, LIPID, PSASC, TSH, DLDL ####[facility] Ndujxizsgz5013 [address] [place] EGFR-AF PAKISTANI >60 Normal >=60 [facility] Comment on above: Performed By: #### B MP, LIVER, FT3, LIPID, PSASC, TSH, DLDL ####[facility] Cerjcduzkm2673 [address] [place] EGFR-NON AF PAKISTANI >60 Normal >=60 [facility] Comment on above: Performed By: #### B MP, LIVER, FT3, LIPID, PSASC, TSH, DLDL ####[facility] Vckkwwokai2320 [address] [place] Glucose mass conc 97 mg/dL Normal 74-106 [facility] Comment on above: Performed By: #### B MP, LIVER, FT3, LIPID, PSASC, TSH, DLDL ####[facility] Gxcqhncpfu9574 [address] [place] Potassium molar conc 4.2 mmol/L Normal 3.4-5.0 [facility] Comment on above: Performed By: #### B MP, LIVER, FT3, LIPID, PSASC, TSH, DLDL ####[facility] Hwpbaemtui7864 [address] [place] Sodium molar conc 135 mmol/L Critically low 137-145 [facility] Comment on above: Performed By: #### B MP, LIVER, FT3, LIPID, PSASC, TSH, DLDL ####[facility] Pouawujgmz4264 [address] [place] Urea nitrogen mass conc 14.0 mg/dL Normal 9.0-20.0 [facility] Comment on above: Performed By: #### B MP, LIVER, FT3, LIPID, PSASC, TSH, DLDL ####[facility] Lqbbomiejd5[address] [place] Urea nitrogen/Creatinine mass ratio 14.8 mg/mg Normal [facility] Comment on above: Performed By: #### B MP, LIVER, FT3, LIPID, PSASC, TSH, DLDL ####[facility] Qwzqqfgjfh57[address] [place] TSHon 09-14-2017 Thyrotropin Qn SEE BELOW Normal [facility] Comment on above: Result Comment: <0.3 4 UIU/ml HYPERTHYROID 0.34-5.60 UIU/ml EUTHYROID >5.60 UIU/ml HYPOTHYROID Performed By: #### B MP, LIVER, FT3, LIPID, PSASC, TSH, DLDL ####[facility] Hngocyraic[address] [place] Thyrotropin Qn 6.140 uIU/mL Critically high 0.470-4.680 [facility] Comment on above: Performed By: #### B MP, LIVER, FT3, LIPID, PSASC, TSH, DLDL ####[facility] [address] [place] [address] Vital Signs Date Time Vital Sign Value Performing Clinician Maicol kumari 05-21-2024 09:10-0500 Diastolic blood pressure 80 mm[Hg] Claudio Sarmini [facility] 05-21-2024 09:10-0500 Heart rate 66 /min Claudio Sarmini [facility] 05-21-2024 09:10-0500 Systolic blood pressure 138 mm[Hg] Claudio Sarmini [facility] 05-21-2024 09:08-0500 Blood Pressure Location Claudio Sarmini [facility] 05-21-2024 09:08-0500 Respiratory rate 14 /min Claudio Sarmini [facility] 05-17-2024 08:22-0500 Body height 165.1 cm Christopher Jasmin DO Work Phone: [facility] 05-17-2024 08:22-0500 Body mass index (BMI) [Ratio] 39.61 kg/m2 Christopher Jasmin DO Work Phone: [facility] 05-17-2024 08:22-0500 Body weight 107.96 kg Christopher Jasmin DO Work Phone: [facility] 05-17-2024 08:22-0500 Diastolic blood pressure 88 mm[Hg] Christopher Jasmin DO Work Phone: [facility] 05-17-2024 08:22-0500 Heart rate 74 /min Christopher Jasmin DO Work Phone: [facility] 05-17-2024 08:22-0500 Systolic blood pressure 138 mm[Hg] Christopher Jasmin Work Phone: [facility] 05-11-2024 09:40-0500 Diastolic blood pressure 77 mm[Hg] Mohamad Mouchli [facility] 05-11-2024 09:40-0500 Heart rate 61 /min Mohamad Mouchli [facility] 05-11-2024 09:40-0500 Respiratory rate 13 /min Mohamad Mouchli [facility] 05-11-2024 09:40-0500 SaO2% (BldA) [Mass fraction] 94 % Mohamad Mouchli [facility] 05-11-2024 09:40-0500 Systolic blood pressure 140 mm[Hg] Mohamad Mouchli [facility] 05-11-2024 09:20-0500 Diastolic blood pressure 83 mm[Hg] Mohamad Mouchli [facility] 05-11-2024 09:20-0500 Heart rate 89 /min Mohamad Mouchli [facility] 05-11-2024 09:20-0500 Respiratory rate 22 /min Mohamad Mouchli [facility] 05-11-2024 09:20-0500 SaO2% (BldA) [Mass fraction] 94 % Mohamad Mouchli [facility] 05-11-2024 09:20-0500 Systolic blood pressure 145 mm[Hg] Mohamad Mouchli [facility] 05-11-2024 09:15-0500 Diastolic blood pressure 79 mm[Hg] Mohamad Mouchli [facility] 05-11-2024 09:15-0500 Heart rate 90 /min Mohamad Mouchli [facility] 05-11-2024 09:15-0500 Respiratory rate 13 /min Mohamad Mouchli [facility] 05-11-2024 09:15-0500 SaO2% (BldA) [Mass fraction] 98 % Mohamad Mouchli [facility] 05-11-2024 09:15-0500 Systolic blood pressure 126 mm[Hg] Mohamad Mouchli [facility] 05-11-2024 09:10-0500 Body temperature 98.42 [degF] Mohamad Mouchli [facility] 05-11-2024 09:05-0500 Respiratory rate 14 /min Mohamad Mouchli [facility] 05-11-2024 08:55-0500 Respiratory rate 22 /min Mohamad Mouchli [facility] 05-11-2024 07:28-0500 Blood Pressure Location Mohamad Mouchli [facility] 05-11-2024 07:28-0500 Body temperature 97.88 [degF] Mohamad Mouchli [facility] 05-07-2024 09:34-0500 Diastolic blood pressure 82 mm[Hg] Ji SIMON [facility] 05-07-2024 09:34-0500 Mean blood pressure 109 mm[Hg] Ji SIMON [facility] 05-07-2024 09:34-0500 Systolic blood pressure 164 mm[Hg] Ji SIMON [facility] 05-07-2024 09:11-0500 Diastolic blood pressure 86 mm[Hg] Ji SIMON [facility] 05-07-2024 09:11-0500 Heart rate 74 /min Ji SIMON [facility] 05-07-2024 09:11-0500 Respiratory rate 16 /min Ji SIMON [facility] 05-07-2024 09:11-0500 Systolic blood pressure 168 mm[Hg] Ji SIMON [facility] 04-24-2024 08:57-0500 Blood Pressure Location [employer] Fangcangkarmen [facility] 04-24-2024 08:57-0500 Diastolic blood pressure 80 mm[Hg] [employer] Fang[employer]karmen [facility] 04-24-2024 08:57-0500 Heart rate 71 /min [employer]arm[employer] [facility] 04-24-2024 08:57-0500 Systolic blood pressure 125 mm[Hg] [employer] Fangcangkarmen [facility] Encounters Encounter Date Encounter Type Care Provider Facility Start: 12-11-2024 End: 12-11-2024 ambulatory Ji SIMON Facility:[facility] Start: 12-11-2024 End: 12-11-2024 Patient encounter procedure Ji SIMON [facility] Start: 11-30-2024 End: 11-30-2024 ambulatory Jorge L Iniguez Facility:[facility] Start: 11-12-2024 End: 11-12-2024 ambulatory Ji SIMON Facility:[facility] Start: 11-12-2024 End: 11-12-2024 Patient encounter procedure Ji Be SIMON [facility] Start: 10-15-2024 End: 10-15-2024 ambulatory Ji SIMON Facility:[facility] Start: 10-15-2024 End: 10-15-2024 Patient encounter procedure Ji SIMON [facility] [place] Start: 09-14-2024 End: 09-14-2024 ambulatory Ji SIMON Facility:[facility] Start: 09-14-2024 End: 09-14-2024 Patient encounter procedure Ji SIMON [facility] Start: 09-10-2024 End: 09-10-2024 ambulatory Ji SIMON Facility:[facility] Start: 09-10-2024 End: 09-10-2024 Patient encounter procedure Ji SIMON [facility] Start: 08-16-2024 End: 08-16-2024 ambulatory Claudio [...] 05-21-2024 End: 05-21-2024 ambulatory Claudio Talal Sarmini Facility:[facility] Start: 05-21-2024 End: 05-21-2024 Patient encounter procedure Claudio Talar Sarmini [facility] Start: 05-18-2024 End: 05-18-2024 ambulatory Jazlyn [...] Start: 05-11-2024 End: 05-11-2024 ambulatory Alejandra Hayden Facility:[facility] Start: 05-11-2024 End: 05-11-2024 Patient encounter procedure Alejandra Hayden [facility] Start: 05-07-2024 End: 05-07-2024 ambulatory Alejandra Hayden Facility: [facility] Start: 05-07-2024 End: 05-07-2024 Patient encounter procedure Ji SIMON [facility] Start: 04-27-2024 ambulatory Alejandra Hayden Facilit y:MELISSA Lara Start: 04-26-2024 End: 04-26-2024 ambulatory Alejandra Hayden Facility:[facility] Start: 04-26-2024 End: 04-26-2024 Patient encounter procedure Alejandra Hayden [facility] Start: 04-25-2024 End: 04-25-2024 ambulatory Alejandra Hayden Facility:[facility] Start: 04-25-2024 End: 04-25-2024 Lab Drop off Alejandra Hyaden [facility] Start: 04-24-2024 End: 04-24-2024 ambulatory Alejandra Hayden Facility:[facility] Start: 04-24-2024 End: 04-24-2024 Patient encounter procedure Alejandra Hayden [facility] Start: 04-24-2024 End: 04-24-2024 [facility]ulatory [facility] Start: 04-24-2024 End: 04-24-2024 Patient encounter procedure Alejandra Hayden [facility] Start: 04-18-2024 ambulatory Alejandra Hayden Facilit y:Alejandro Start: 03-15-2018 End: 03-16-2018 Patient encounter procedure LUIS ANTONIO Aurora DAVID Facility:[facility] Start: 01-02-2018 End: 01-03-2018 [facility] Start: 10-26-2017 End: 10-27-2017 Patient encounter procedure LUIS ANTONIO Simon POOJAR Facility:[facility] Start: 09-27-2017 End: 09-28-2017 Patient encounter procedure LUIS ANTONIO Simon POOJAR Facility:[facility] Start: 09-15-2017 Encounter for genera l adult medical examination without abnormal findings LUIS ANTONIO HERNANDEZ [facility] Start: 09-14-2017 End: 09-15-2017 [facility] Encounter for genera l adult medical examination without abnormal findings [facility] Procedures Date Procedure Procedure Detail Performing Clinician Start: 05-11-2024 Colonoscopy Alejandra Hayden Comment on above: colon polyps x2, diverticulosis, Ih Start: 05-11-2024 Esophagogastroduodenoscopy Alejandra huynh Comment on above: esophagitis, gastritis, clean based ulce rs, biopsies for celiac disease Start: 09-14-2017 PSA screening LUIS ANTONIO HERNANDEZ Comment on above: Performed By: #### BMP, LIVER, FT3, LIPI D, PSASC, TSH, DLDL ####[facility] [address] [place], [place] [address]QxsrobArpit Colindres Plan of Treatment Date Care Activity Detail Author Start: 01-07-2025 ambulatory Ambulatory Facility:Ofelia Lara Start: 12-24-2024 ambulatory Ambulatory Facility:E Janes Lara Start: 11-19-2024 End: 11-19-2024 Patient encounter procedure 11/19/2024 8:20 AM EDT Office Visit MARY LARA [address] [place] [phone] Sofie Weller NP [address] [phone] MARY LARA Start: 05-25-2024 End: 05-25-2024 ambulatory 05/25/2024 8:00 AM EST Treatment [facility] [address] [place] [address] Jazlyn Wilburn, OT [address] [place] [address] [facility] Start: 05-22-2024 End: 05-22-2024 ambulatory 05/22/2024 8:00 AM EST Treatment [facility] [address] [place] [address] Jazlyn Wilburn, OT [address] [place] [address] [facility] Start: 05-18-2024 End: 05-18-2024 ambulatory 05/18/2024 8:00 AM EST Treatment [facility] [address] [place] [address] Jazlyn Wilburn, OT [address] [place] [address] [facility] Start: 05-17-2024 End: 05-17-2024 Patient encounter procedure 05/17/2024 8:00 AM EST Office Visit [facility] [address] [place] [phone] Sandra Castellanos DO [address] [place] [address] [facility] Start: 12-11-2023 Influenza vaccination Influenza Vacc ine (#1) [facility] Start: 1970 Screening for malign ant neoplasm of colon [facility] Immunizations Immunization Date Immunization Notes Care Provider Fa cility NEGATED: Highlighted row has not occurred!04-24-2024 influenza virus vaccine, unspecified formulation Alejandra Celestinekarmen [facility] Payers Date Payer Category Payer Private Health Insurance [id number] 2024 Medicaid (Managed Care) SANDOR MARINELLI [id number] 2024 Unknown [id number] 1970 Unknown [id number] 2.840.1.394011.3.579.2 .593 1970 Unknown [id number] 2.0.1.645358.3.579.2 .59 1970 Unknown [id number] 2.840.1.128923.3.579.2 .593 1970 Unknown [id number] 2.840.1.423114.3.579.2 .593 1970 Unknown [id number] 2.16840.1.725248.3.579.2 .593 1970 Unknown [id number] 2.16.840.1.233178.3.579.2 .1970 Unknown [id number] 2.16.840.1.848503.3.579.2 .1970 Unknown [id number] 2.16.840.1.082110.3.579.2 .1970 Unknown [id number] 2.16.840.1.876799.3.579.2 .1258 1970 Unknown [id number] 2.16.840.1.870459.3.579.2 .1258 1970 Unknown [id number] 2.16.840.1.850674.3.579.2 .1258 1970 Unknown [id number] 2.16.840.1.604428.3.579.2 .1258 1970 Unknown [id number] 2.16.840.1.093389.3.579.2 .1258 1970 Unknown [id number] 2.16.840.1.165763.3.579.2 .1970 Unknown [id number] 2.16.840.1.747616.3.579.2 .1970 Unknown [id number] 2.16.840.1.647420.3.579.2 .1970 Unknown [id number] 2.16.840.1.217650.3.579.2 .1970 Unknown [id number] 2.16.840.1.886719.3.579.2 .1970 Unknown [id number] 2.16.840.1.568902.3.579.2 .1970 Unknown [id number] 2.16.840.1.858690.3.579.2 .1970 Unknown [id number] 2.16.840.1.886514.3.579.2 .727 1970 Unknown [id number] 2.16.840.1.447416.3.579.2 .727 1970 Unknown [id number] 2.16.840.1.760508.3.579.2 .727 1970 Unknown [id number] 2.16.840.1.705952.3.579.2 .7 1970 Unknown [id number] 2.16.840.1.060176.3.579.2 .727 1970 Unknown [id number] 2.16.840.1.463666.3.579.2 .727 1970 Unknown [id number] 2.16.840.1.319422.3.579.2 .727 1959 Unknown [id number] Social History Date Type Detail Facility Start: 04-24-2024 End: 08-16-2024 Tobacco smoking status Never smoked tobacco (finding) [facility] Tobacco smoking status Smokeless tobacco user within last 30 days [facility] Start: 05-17-2024 Sex Assigned At Male [facility] Tobacco smoking stat [facility] Tobacco smoking consumption unknown [facility] Start: 1970 Sex assigned at Not on file [facility] Start: 05-17-2024 Tobacco use and exposure User of smokeless tobacco [facility] History of tobacco use Chews Tobacco [facility] Start: 05-17-2024 Alcoholic beverage intake Current drinker of alcohol (finding) [facility] Start: 05-17-2024 History of Social function [facility] Sexual Orientation [facility] Sex Male (finding) [facility] Functional Status Date Assessment Result Facility 05-21-2024 Functional Status N/A [facility] 05-11-2024 Functional Status N/A [facility] 05-07-2024 Functional Status N/A [facility] 04-24-2024 Functional Status N/A [facility] Clinical Notes 05-07-2024 to 09-10-2024 Jazlyn Wilbunr, OT - 05/25/2024 8:00 AM Mihir Wilburn, [...] therapy. Follow these instructions at home: Take dkyo-vub-dltzlhy and prescription medicines only as told by [...] provider. Document Revised: 11/27/2020 Document Reviewed: 11/27/2020 ASSURED INFORMATION SECURITY Patient Education 2023 [employer]. Follow Up Care 05/07/2024 09:57:31 With:AURORA ROMERO, Ji Be, URL Address: [facility] [address], [place] [phone] When: Unknown Comments:4 mos w/ T level [facility] 09-10-2024 Note Patient Education Urology Hypogonadism, [...] Follow these instructions at home: ??? Take aduw-jlp-hhzpijf and prescription medicines only as told by [...] you discuss any (more content not included)... [facility] 05-25-2024 History of Present illness Narrative Occupational [...] all planes 1x15 with fair toleration. 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 Contract release exercsies 1x15. [...] speaking with doctor. documented in this encounter [facility] 05-22-2024 History of Present illness Narrative Occupational Therapy Occupational Therapy Treatment Visit Patient Name: Taet Encarnacion Today's Date: 05/22/2024 Linked Episodes Type: [...] all planes 1x15 with fair toleration. 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 Contract release exercsies 1x15. [...] pain at discharge documented in this encounter [facility] 05-18-2024 History of Present illness Narrative Occupational [...] all planes 1x15 with fair toleration. 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 Contract release exercsies 1x15. [...] pain at discharge documented in this encounter [facility] 05-17-2024 History of Present illness Narrative Images [...] trouble falling and staying asleep. He has MLACOLM but does not have his machine. He did have recent MRI at [facility]. He has never tried any [...] , wrist extensors , wrist flexor , concrete finisher apprentice strength 5/5. LUE Strength deltoid , biceps , triceps , wrist extensors , wrist flexor , concrete finisher apprentice strength 5/5. RLE Strength illopsoas, quadriceps, tibialis [...] reflex 2+ . Huerta's sign negative. Coordination: Gljmze-vp-afiw testing and rapid alternating movements are normal [...] and return instructions documented in this encounter [facility] 05-15-2024 History of Present illness Narrative Images [...] R hand. Pt reports he works in [employer] and is unable to use his saw [...] self-care and functional mobility tasks. Works in [employer]. Precautions: none Objective PRWHE Pain Score: 39/50 [...] composite fist. Strength Strength additional comments: R concrete finisher apprentice strength: 35# compared to L concrete finisher apprentice strength: 115# Special Tests Special tests additional [...] for light strengthening and ROM at discharge. Retail Team Leader Goals: PRWHE Pain Score < 20/ 50 ( IE:39/50 ) PRWHE Functional Score <25/100 (IE: 68/100) Reduce R hand edema by at least 5 cm in order to reduce pain and improve ROM at discharge. Pt to increase concrete finisher apprentice strength by 10# and LP by 2# pain free at discharge. Pt will be able to use right UE in light daily activities. Pt will benefit from skilled OT to address the above impairments for 2x/week for 4-6 weeks. I hereby deem this POC medically necessary. Please sign below. Date: . documented in this encounter [facility] 05-11-2024 Evaluation + Plan note Extrac deb from: Title:ANES Post-operative Note---General Author: Cody Tay MD Date:05/11/24 Plan Transfer/Discharge: Transfer/Discharge Discharge when meets criteria ( To home ). Extracted from: Title:1Preop H&P Author:González Sutton MD Date:05/11/24 Impression and Plan Impression: change in bowel habits Plan: -EGD and Colonoscopy Extracted from: Title:ANES Pre-operative Note 2022 Author:Cody Chávez Date:05/11/24 Plan [place] [employer] Anesthesiologists (ASA) physical status classification: Class II. Anesthetic Preoperative Plan: Anesthesia General. Future Appointments Appointment Date:05/21/2024 09:00:00 AM Scheduled Provider:González Sutton MD Location:[facility] Appointment Type:[facility] Follow Up Appointment Date:09/07/2024 09:45:00 AM Scheduled Provider:Ji SIMON MD Location:[facility] Appointment Type:URO Office Visit [facility] 01-31-2025 Hospital Discharge instructions Patient Education [...] help quitting, ask your health careprovider. Take mljt-erd-oaumrrz and prescription medicines only as told by your health care provider. ?Do not use cggy-skt-dqllkqv medicines in place of prescription medicines unless [...] help quitting, ask your health careprovider. Take rabq-dpt-kceaqiw and prescription medicines only as told by your health care provider. Do not use oelj-sbo-jhrsqsk medicines in place of prescription medicines unless your health care provider approves. Limit your alcohol and caffeine intake. Keep all follow-up visits. This is important. This information is not intended to replace advice given to you by your health care provider. Make sure you discuss any questions you have with your health care provider. Document Revised: 11/06/2021 Document Reviewed: 11/06/2021 ASSURED INFORMATION SECURITY Patient Education 2023 [employer]. 05/11/2024 09:43:40 Colonoscopy, Care After Surgery Salam [...] unsweetened, w/added ascorbic acid 1 cup 0.5 Gentry 1 cup 0.7 Vegetables Cooked Green beans 1 cup 4.0 Carrots 1/2 cup sliced 2.3 Peas 1 cup 8.8 Potato (baked, with skin) 1 medium potato 3.8 Raw [place] (with peel) 1 cucumber 1.5 Lettuce 1 [...] 8.7 Peanuts 1/2 cup 7.9 Chart from [facility] 2013. SEEK IMMEDIATE MEDICAL CARE IF: You [...] Reference. Available at http://www.nal.usda.gov/fnic/foodcomp/search/. Information adapted from: [facility] Patient Information 2009 [employer]. Move In History 2012 http://www.[employer]/contents/bfskquebqtbw-ikyixpu-nduftp-the-basics 05/11/2024 09:43:38 Colon Polyps Colon Polyps Colon [...] hard liquor (44 mL). General instructions Take iabz-jrp-aierfsf and prescription medicines only as told by [...] provider. Document Revised: 07/16/2020 Document Reviewed: 07/16/2020 ASSURED INFORMATION SECURITY Patient Education 2023 [employer]. 05/11/2024 09:27:02 Gluten-Free Diet for Celiac Disease, [...] how a food is processed, ask the automatic corn grinder operator. What foods can I eat? Fruits [...] cereals made from cornmeal or GF grains. [place], rice, and wild rice. Some rice noodles or dick noodles. Arrowroot starch, corn bran, corn flour, corn germ, cornmeal, corn starch, potato flour, potato starch flour, and rice bran. Plain, brown, and sweet rice flours. Rice chinese, soy flour, and tapioca starch. Meats and [...] or meat loaves. Bread-containing products, such as Togolese steak, croquettes, meatballs, and meatloaf. Most tuna canned in vegetable broth. [place] with hydrolyzed vegetable protein (HVP) injected as [...] provider. Document Revised: 02/16/2022 Document Reviewed: 02/16/2022 ASSURED INFORMATION SECURITY Patient Education 2023 [employer]. 05/11/2024 09:26:16 Upper Endoscopy, Adult, Care After [...] what activities are safe for you. Take cavh-clv-yembaln and prescription medicines only as told by [...] provider. Document Revised: 07/07/2022 Document Reviewed: 07/07/2022 ASSURED INFORMATION SECURITY Patient Education 2023 [employer]. 05/11/2024 09:26:10 Esophagitis Esophagitis Esophagitis is inflammation [...] Follow these instructions at home: Medicines Take fcxr-ado-wecwbma and prescription medicines only as told by [...] powder, vinegar, hot sauces, and barbecue sauce. ?[place]man fruit juices and citrus fruits, such as oranges, ronald, and limes. ?Tomato-based foods, such as red sauce, chili, salsa, and pizza with red sauce. ?Fried and fatty foods, such as donuts, arabic fries, potato chips, and high-fat dressings. ?High-fat [...] provider. Document Revised: 10/06/2020 Document Reviewed: 10/06/2020 ASSURED INFORMATION SECURITY Patient Education 2023 [employer]. 05/11/2024 09:25:57 Celiac Disease Celiac Disease Celiac [...] provider. Document Revised: 02/16/2022 Document Reviewed: 02/16/2022 ASSURED INFORMATION SECURITY Patient Education 2023 [employer] 05/11/2024 09:25:22 Gastritis, Adult Gastritis, Adult [...] medicines. These include steroids, antibiotics, and some aseu-kry-itporgb medicines, such as aspirin or ibuprofen. Having [...] Follow these instructions at home: Medicines Take infj-rif-ozjqtns and prescription medicines only as told by [...] provider. Document Revised: 08/01/2021 Document Reviewed: 08/01/2021 ASSURED INFORMATION SECURITY Patient Education 2023 [employer]. [facility] 01-31-2025 NotePatient Education - Text Colonoscopy Care After Surgery Please read the instructions outlined below and refer to this sheet in the next few weeks. These discharge instructions provide you with general information on caring [facility] Your doctor may also give you [...] unsweetened, w/added ascorbic acid 1 cup 0.5 Gentry 1 cup 0.7 Vegetables Cooked Green beans 1 cup 4.0 Carrots 1/2 cup sliced 2.3 Peas 1 cup 8.8 Potato (baked, with skin) 1 medium potato 3.8 Raw [place] (with peel) 1 cucumber 1.5 Lettuce 1 [...] 8.7 Peanuts 1/2 cup 7.9 Chart from [facility] 2 (more content not included)...[facility] 05-11-2024 NoteProgress Note-Physician Patient: TATE ENCARNACION MRN: [id number] Age: 53 years Sex: Male : 1970 Associated Diagnoses: None Author: Cody Tay MD Postoperative Information Postoperative disposition: Postoperative disposition: To PACU. Optimetrix number: Optimetrix number [id number]. Anesthetic utilized: General. Health Status Allergies: Allergic [...] Discharge when meets criteria ( To home ).[facility]:Result Comment: Electronically Signed By: Cody [...] EGD in 3 months to ensure esophagitis healingCommunity [facility] Comment on above:Result Comment: Electronically Signed By: Lesley ROMERO, González Cadena\.br\Date and Time Signed: 05/11/24 09:09 ESTOther Comment: Missing Attachment - attachment storage system not supported [id number] Can be viewed in source systemMissing Attachment - attachment storage system not supported [id number] Can be viewed [facility] systemMissing Attachment - attachment storage system not supported [id number] Can be viewed in source systemMissing Attachment - attachment storage system not supported [id number] Can be viewed in source systemMissing Attachment - attachment storage system not supported [id number] Can be viewed in source systemMissing Attachment - attachment storage system not supported [id number] Can be viewed in source systemMissing Attachment - attachment storage system not supported [id number] Can be viewed in source systemMissing Attachment - attachment storage system not supported [id number] Can be viewed in source systemMissing Attachment - attachment storage system not supported [id number] Can be viewed in [id number] NoteEndoscopic Procedure Report - Other Patient: TATE [...] qAM, # 75 gram, Refills(s) 3, Pharmacy: [facility], 165, cm, 05/07/24 9:19:00 EST, Height/Length Dosing, 108.1, kg, 05/07/24 9:19:00 EST, Weight Dosing Questran 4 g/9 g oral powder: = 1 packet(s), Oral, BID, # 60 EA, Refills(s) 0, Pharmacy: [facility], 170, cm, 04/24/24 8:57:00 EST, Height/Length Dosing, 108.6, kg, 04/24/24 8:57:00 EST, Weight Dosing Zenpep 60,000 units-189,600 units-252,600 units oral delayed release capsule: See Instructions, 300cap(s), Refill(s) 3, Take 2 caps with each meal and 1 with each snack, [facility], 170, cm, 04/24/24 8:57:00 EST, Height/Length Dosing, 108.6, kg, 04/24/24 8:57:00 EST, Weight Dosing tadalafil 20 mg Tab: 20 mg = 1 tab(s), Oral, As Directed, PRN for erectile dysfunction, Pt to take one tab 1 hour prior to sexual activity. Do not exceed 20mg in 24 hours., # 30 tab(s), Refills(s) 0,Pharmacy: [facility], 165, cm, 05/07/24 9:19:00 EST, Hei... [...] 5. Otherwise normal colo (more content not included)...[facility] CenterComment on above:Result Comment: Electronically Signed By: Lesley ROMERO, González Cadena\.br\Date and Time Signed: 05/11/24 09:07 ESTOther Comment: Missing Attachment - attachment storage system not supported [id number] Can be viewed in source systemMissing Attachment - attachment storage system not supported [id number] Can be viewed [facility] [place] systemMissing Attachment - attachment storage system not supported [id number] Can be viewed in source systemMissing Attachment - attachment storage system not supported [id number] Can be viewed in so ce systemMissing Attachment - attachment storage system not supported 1212022 Can be viewed in source systemMissing Attachment - attachment storage system not supported [id number] Can be viewed in source systemMissing Attachment - attachment storage system not supported 6257734 Can be viewed in source systemMissing Attachment - attachment storage system not supported [id number] Can be viewed in source [id number] NoteHistory and Physical Patient: TATE ENCARNACION Age: [...] qAM, # 75 gram, Refills(s) 3, Pharmacy: [facility], 165, cm, 05/07/24 9:19:00 EST, Height/Length Dosing, 108.1, kg, 05/07/24 9:19:00 EST, Weight Dosing Questran 4 g/9 g oral powder: = 1 packet(s), Oral, BID, # 60 EA, Refills(s) 0, Pharmacy: [facility], 170, cm, 04/24/24 8:57:00 EST, Height/Length Dosing, 108.6, kg, 04/24/24 8:57:00 EST, Weight Dosing Zenpep 60,000 units-189,600 units-252,600 units oral delayed release capsule: See Instructions, 300cap(s), Refill(s) 3, Take 2 caps with each meal and 1 with each snack, [facility], 170, cm, 04/24/24 8:57:00 EST, Height/Length Dosing, 108.6, kg, 04/24/24 8:57:00 EST, Weight Dosing tadalafil 20 mg Tab: 20 mg = 1 tab(s), Oral, As Directed, PRN for erectile dysfunction, Pt to take one tab 1 hour prior to sexual activity. Do not exceed 20mg in 24 hours., # 30 tab(s), Refills(s) 0,Pharmacy: [facility], 165, cm, 05/07/24 9:19:00 Logan DASH... [...] hypertension (high blood pressure) / SNOMED CT 29787859 / Confirmed Thyroid function tests abnormal / SNOMED CT 740976337 / Confirmed Anemia of chronic disorder (low iron) / SNOMED CT 644325256 / Confirmed Bloating / SNOMED CT 975621957 / Confirmed Black stool / SNOMED CT 671016129 / Confirmed Chronic GERD / SNOMED CT 723029662 / Confirmed Decreased sexual desire / SNOMED CT 931739052 / Confirmed Alcohol drinker / SNOMED CT 743691079 / Confirmed Stress-related physiological response affecting medical condition / SNOMED CT 28158339 / Confirmed High triglycerides / SNOMED CT 433748665 / Confirmed Obesity due to excess calories / SNOMED CT 3960485573 / Confirmed ED (erectile dysfunction) / SNOMED CT 7693995752 / Confirmed Hypogonadism male / SNOMED CT 19532008 / Confirmed Screening PSA (prostate specific antigen) / SNOMED CT 157146787 / Confirmed BPH with urinary obstruction / SNOMED CT 3079576197 / Confirmed Acquired buried penis / SNOMED CT 414577774 / Confirmed Histories Past Medical History: No [...] change in bowel habits Plan: -EGD and ColonoscopyCommunity [facility] Medical CenterComment on above:Result Comment: Electronically Signed By: Lesley ROMERO, González Cadena\.br\Date and Time Signed: 05/11/24 08:34 [id number] NoteProgress Note-Physician Patient: TATE ENCARNACION Age: 53 [...] qAM, # 75 gram, Refills(s) 3, Pharmacy: [facility], 165, cm, 05/07/24 9:19:00 EST, Height/Length Dosing, 108.1, kg, 05/07/24 9:19:00 EST, Weight Dosing Questran 4 g/9 g oral powder: = 1 packet(s), Oral, BID, # 60 EA, Refills(s) 0, Pharmacy: [facility], 170, cm, 04/24/24 8:57:00 EST, Height/Length Dosing, 108.6, kg, 04/24/24 8:57:00 EST, Weight Dosing Zenpep 60,000 units-189,600 units-252,600 units oral delayed release capsule: See Instructions, 300cap(s), Refill(s) 3, Take 2 caps with each meal and 1 with each snack, [facility], 170, cm, 04/24/24 8:57:00 EST, Height/Length Dosing, 108.6, kg, 04/24/24 8:57:00 EST, Weight Dosing tadalafil 20 mg Tab: 20 mg = 1 tab(s), Oral, As Directed, PRN for erectile dysfunction, Pt to take one tab 1 hour prior to sexual activity. Do not exceed 20mg in 24 hours., # 30 tab(s), Refills(s) 0,Pharmacy: [facility], 165, cm, 05/07/24 9:19:00 EST, Hei... [...] Problems Acquired buried penis / SNOMED CT 779090417 / Confirmed Alcohol drinker / SNOMED CT 888928500 / Confirmed Anemia of chronic disorder (low iron) / SNOMED CT 620379032 / Confirmed Benign hypertension (high blood pressure) / SNOMED CT 45213871 / Confirmed Black stool / SNOMED CT 226645584 / Confirmed Bloating / SNOMED CT 004632723 / Confirmed BPH with urinary obstruction / SNOMED CT 6512506055 / Confirmed Chronic GERD / SNOMED CT 057311342 / Confirmed Decreased sexual desire / SNOMED CT 199610699 / Confirmed ED (erectile dysfunction) / SNOMED CT 6488786656 / Confirmed High triglycerides / SNOMED CT 047240216 / Confirmed Hypogonadism male / SNOMED CT 33398008 / Confirmed Obesity due to excess calories / SNOMED CT 0072190778 / Confirmed Screening PSA (prostate specific antigen) / SNOMED CT 687788279 / Confirmed Stress-related physiological response affecting medical condition / SNOMED CT 33819022 / Confirmed Thyroid function tests abnormal / SNOMED CT 372546467 / Confirmed Canceled: Low libido / SNOMED CT 750086980, Active Problems (16) Acquired buried penis Alcohol [...] have been selected or (more content not included)...[facility] CenterComment on above:Result Comment: Electronically Signed By: Jasvir ROMERO, Cody Alvarez\.br\Date and Time Signed: 05/11/24 08:21 [id number] Hospital Discharge instructions Patient Education 05/07/2024 09:53:04 [...] therapy. Follow these instructions at home: Take njkq-dim-tqliuay and prescription medicines only as told by [...] provider. Document Revised: 11/27/2020 Document Reviewed: 11/27/2020 ASSURED INFORMATION SECURITY Patient Education 2023 [employer]. 05/07/2024 09:39:27 Erectile Dysfunction Erectile Dysfunction Erectile [...] Follow these instructions at home: Medicines Take gllk-kkq-nkhdvsq and prescription medicines only as told by [...] provider. Document Revised: 06/24/2021 Document Reviewed: 06/24/2021 ASSURED INFORMATION SECURITY Patient Education 2023 [employer]. Follow Up Care 04/27/2024 13:04:43 With:AURORA ROMERO, Ji Be, URL Address: [facility] [address], [place] [address]- [phone] When: Unknown Comments:4 mos w/ PSA and T level [facility] 01-27-2025 NotePatient Education Urology Hypogonadism, Male [...] Follow these instructions at home: ??? Take iggi-zaf-pqarezb and prescription medicines only as told by [...] sure you discuss any (more content not included)...[facility] CenterEvaluation + Plan note Future Appointments Appointment Date:05/04/2024 09:30:00 AM Scheduled Provider: Location:[facility] Appointment Type:Surgery FT Appointment Date:05/11/2024 09:00:00 AM Scheduled Provider:Alejandra Hayden MD Location:[facility] Appointment Type:[facility] Follow Up Future Scheduled Tests Laboratory* Pancreatic Elastase, Fecal 04/24/24 * Pancreatic Elastase, Fecal 04/24/24 * Calprotectin, Fecal 04/24/24 Radiology* US Abdomen, Limited 04/24/24 [facility] Evaluation + Plan note Future Appointments Appointment Date:05/04/2024 09:30:00 AM Scheduled Provider: Location:[facility] Appointment Type:Surgery FT Appointment Date:05/11/2024 09:00:00 AM Scheduled Provider:Alejandra Hayden MD Location:[facility] Appointment Type:[facility] Follow Up Diagnostic Tests Pending * Celiac Disease Comprehensive 04/24/24 * Testosterone Level Total 04/24/24 Future Scheduled Tests Laboratory* Pancreatic Elastase, Fecal 04/24/24 * Pancreatic Elastase, Fecal 04/24/24 * Calprotectin, Fecal 04/24/24 Radiology* US Abdomen, Limited 04/24/24 [facility] Evaluation + Plan note Future Appointments Appointment Date:04/26/2024 08:30:00 AM Scheduled Provider: [facility] Type:US Abdominal/Pelvis (FT) Appointment Date:05/04/2024 09:30:00 AM Scheduled Provider: Location:[facility] Appointment Type:Surgery FT Appointment Date:05/11/2024 09:00:00 AM Scheduled Provider:Alejandra Hayden MD Location:[facility] Appointment Type:[facility] Follow Up Diagnostic Tests Pending * Calprotectin, Fecal 04/25/24 * Pancreatic Elastase, Fecal 04/25/24 Future Scheduled Tests Radiology* US Abdomen, Limited 04/26/24 [facility] evaluation + Plan note Future Appointments Appointment Date:05/04/2024 09:30:00 AM Scheduled Provider: Location:[facility] Appointment Type:Surgery FT Appointment Date:05/11/2024 09:00:00 AM Scheduled Provider:Alejandra Hayden MD Location:[facility] Appointment Type:[facility] Follow Up [facility] Evaluation + Plan note Future Appointments Appointment Date:05/11/2024 08:15:00 AM Scheduled Provider: Location:[facility] Appointment Type:Surgery FT Appointment Date:05/21/2024 09:00:00 AM Scheduled Provider:González Sutton MD Location:[facility] Appointment Type:[facility] Follow Up Appointment Date:09/07/2024 09:45:00 AM Scheduled Provider:Ji SIMON MD Location:[facility] Appointment Type:URO Office Visit Diagnostic Tests Pending * Testosterone Level Total 05/07/24 * PSA Screen, Total 05/07/24 [facility] evaluation + Plan note Future Appointments Appointment Date:09/07/2024 09:45:00 AM Scheduled Provider:Ji SIMON MD Location:[facility] Appointment Type:URO Office Visit [facility] Evaluation + Plan note Future Appointments Appointment Date:09/14/2024 08:00:00 AM Scheduled Provider: [facility] Type:[facility]O Nurse Visit [facility] evaluation + Plan note Future Appointments Appointment Date:10/15/2024 09:00:00 AM Scheduled Provider: [facility] Type:[facility]O Nurse Visit [facility] evaluation + Plan note Future Appointments Appointment Date:11/12/2024 08:45:00 AM Scheduled Provider: Location:[facility] Appointment Type:URO Nurse Visit Appointment Date:12/11/2024 09:00:00 AM Scheduled Provider: Location:[facility] Appointment Type:URO Nurse Visit [facility] evaluation + Plan note Future Appointments Appointment Date:11/30/2024 12:30:00 PM Scheduled Provider: [facility] Type:EMG Unilateral Upper Extremity Appointment Date:12/11/2024 09:00:00 AM Scheduled Provider: [facility] Appointment Type:URO Nurse Visit Appointment Date:12/24/2024 08:45:00 AM Scheduled Provider: Location[facility] Appointment Type:URO Nurse Visit Appointment Date:01/07/2025 03:15:00 PM Scheduled Provider:Ji SIMON MD [facility] Type:[facility] Office Visit [facility] evaluation + Plan note Future Appointments Appointment Date:12/24/2024 08:45:00 AM Scheduled Provider: Location:[facility] Appointment Type:URO Nurse Visit Appointment Date:01/07/2025 03:15:00 PM Scheduled Provider:Ji SIMON MD Location[facility] Appointment Type:URO Office Visit [facility] evaluation note* Diagnosis Swelling of right hand- [...] No data available for this section [facility] Discharge instructions No data available for this section [facility] Progress note No data available for this section [facility] Reason for visit Narrative* Rehabilitation - Outpatient (Routine) - Authorized Specialty Diagnoses / Procedures Referred By Briseida rahman Referred To Contact Occupational Therapy / Physical Therapy Diagnoses Swelling of R hand Procedures SC OCCUPATIONAL THERAPY EVALUATION SC OFFICE/OUTPATIENT NEW HIGH MDM 60 MINUTES Genoveva Cartagena MD [address] [place] [address] [place] [address] Phone: tel: fax: Jazlyn Wilburn, OT [address] [place] [address] Phone: tel: fax: Referral ID Status Reason Start Date Expiration Date V isits Requested Visits Authorized [id number] Authorized 05/15/2024 11/11/2024 30 30 [facility] - Outpatient (Routine) - Authorized Specialty Diagnoses / Procedures Referred By Briseida rahman Referred To Contact Occupational Therapy / Physical Therapy Diagnoses Swelling of R hand Procedures SC OCCUPATIONAL THERAPY EVALUATION SC OFFICE/OUTPATIENT NEW HIGH MDM 60 MINUTES Genoveva Cartagena MD [address] [place] [address] [place] [address] Phone: tel: fax: Jazlyn Wilburn, OT [address] [place] [address] Phone: tel: fax: Referral ID Status Reason Start Date Expiration Date V isits Requested Visits Authorized [id number] Authorized 05/15/2024 04/10/2025 30 30 [facility] [...] and content) DATE CREATED AUTHOR 03/21/2018 [facility] DATE CREATED AUTHOR AUTHOR'S ORGANIZ ATION 04/27/2024 [facility] DATE CREATED AUTHOR AUTHOR'S ORGANIZ ATION 04/28/2024 [facility] DATE CREATED AUTHOR AUTHOR'S ORGANIZ ATION 04/30/2024 [facility] DATE CREATED AUTHOR AUTHOR'S ORGANIZ ATION 05/18/2024 [facility] DATE CREATED AUTHOR AUTHOR'S ORGANIZ ATION 05/19/2024 [facility] DATE CREATED AUTHOR AUTHOR'S ORGANIZ ATION 05/27/2024 [facility] DATE CREATED AUTHOR AUTHOR'S ORGANIZ ATION 09/11/2024 [facility] DATE CREATED AUTHOR AUTHOR'S ORGANIZ ATION 11/16/2024 [facility] DATE CREATED AUTHOR AUTHOR'S ORGANIZ ATION 12/13/2024 [facility] Patient Care team informatio n (unrecognized section and content) 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 Specialty Start Date End Date Unallocated, Jose Houhg MD [address] [place], [place] [address] [address] PCP - General Family Medicine 04/19/24 Kira Garrison MD [address] [address] Referring Physician Family Medicine 04/19/24 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 Specialty Start Date End Date Unallocated, Jose Hough MD [facility] [place] [address] PCP - General Family Medicine 04/19/24 Kira Garrison MD [address] [place] [address] Referring Physician Family Medicine 04/19/24 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 Specialty Start Date End Date Unallocated, Jose Hough MD [address] [place], [place] [address] [address] PCP - General Family Medicine 04/19/24 Kira Garrison MD [address] [place], [place] [id number] Referring Physician Family Medicine 04/19/24 Sandra Castellanos DO [address] [address] Referring Physician Neurology 05/17/24 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 Specialty Start Date End Date Unallocated, Jose Hough MD [address] [place], [place] [address] [address] PCP - General Family Medicine 04/19/24 Kira Garrison MD [address] [place] [address] Referring Physician Family Medicine 04/19/24 Sandra Castellanos DO [address] [place] [address] Referring Physician Neurology 05/17/24 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 Specialty Start Date End Date Unallocated, Noms MD Gianluca [address] [place] [address] PCP - General Family Medicine 04/19/24 Kira Garrison MD [address] [place], [place] [id number] Referring Physician Family Medicine 04/19/24 Sandra Castellanos DO [address] [place] [address] Referring Physician Neurology 05/17/24 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 Specialty Start Date End Date Unallocated, [place] [address] [place] [address] PCP - General Family Medicine 04/19/24 Kira Garrison MD [address] [place] [address] Referring Physician Family Medicine 04/19/24 Sandra Castellanos DO [address] [place] [address] Referring Physician Neurology 05/17/24 Reason for Visit (unrecogniz ed section and content) Reason Comments Migraine Specialty Diagnoses / Procedures Referred By Briseida t Referred To Contact Neurology Diagnoses Migraine, unspecified, not intractable, without status migrainosus (CMS/[facility]) Procedures SC OFFICE/OUTPATIENT NEW LOW MDM 30 MINUTES Kira Garrison MD [address] [address] Phone: tel: fax: Sandra Castellanos DO [address] [place] [address] Phone: tel: fax: Referral ID Status Reason Start Date Expiration Date V isits Requested Visits Authorized [id number] Closed Consult and Treat 04/18/2024 10/15/2024 1 [...] BE BASED ON THE PRIMARY CLINICAL RECORDS. [employer] [facility]. provides no warranty or guarantee of the accuracy or completeness of information in this document.
== END 2024-12-20 10:48 | disposition home or self-care (01) ==
LOC: RAD 10:48
PROVIDERS: PCP Nurse Practitioner Family; Visit Provider Family Medicine
DX: M54.16 Radiculopathy, lumbar region (principal); E03.9 Hypothyroidism, unspecified
CPT/HCPCS: 36415; 72110

== ENCOUNTER 2024-12-26 08:37 | Outpatient (OUT) | payer OTHER, SELFPAY ==
--- OUTSIDE RECORDS SUMMARY | 2024-12-17 04:10 | XMS_ITS ---
Author Organization [facility] in [place] Address [address] [place] [address] Care Team Providers Care Facility Worker Name Role Phone Kira Heredia Primary Care Provider REASON FOR VISIT CT facial bones Encounters Encounter Location Date Provider Diagnosis [facility] [address] [place] [address] 12/17/2024 Kira Heredia Face pain R51.9 Assessments Encounter Date Diagnosis (ICD Code) Assessment Notes Treatment Notes Treatment Clinical Notes Section Notes 12/17/2024 Face pain (ICD-10 - R51.9) Plan Of Treatment Pending Test Test Name Order Date CT Facial Bones w/o Contrast 12/17/2024 Progress Notes * Kody ENCARNACIONDOB: 1 (54 yo M)Acc No.[id number]:12/17/2024 Patient: Kody PAVON :1970 A ge:54 Y S ex:Male Address:[address] [place] [address], [place] [address] Subjective: * Chief Complaints: * C T facial bones * Medical History: * Surgical History: * Hospitalization/Major Diagno stic Procedure: * Medications: Objective: * Vitals: * Physical Examination: Assessment: * Assessment: 1. F jamir pain - R51.9 (Primary) Plan: * Treatment: * Procedure Codes: * true * Date: Generated for Printi ng/Faxing/eTransmitting on: 0 12/26/2024 08:47 AM EDT
--- OUTSIDE RECORDS SUMMARY | 2024-12-20 05:45 | XMS_ITS ---
Author Organization [facility] [place] Address [address] [place] [address] Care Team Providers Care Animal Keeper Head Name Role Phone iKra Heredia Primary Care Provider Reid Meyer Unavailable [phone] Allergies No Known Allergies REASON FOR VISIT SELF PAY Pinky pt- right hip pain and down into the leg, When laying down both hips hurt, back and shoulders hurt as well, Did have a fall three weeks ago, not sure if from that Medications Medication SIG (Take, Route, Frequency, Duration) Notes Start Date End Date Status Daypro 600 MG 2 tablets Orally teodora ly; Duration: 20 days 12/20/2024 Active Fish Oil 1000 MG TAKE 1 CAPSULE BY [facility] THREE TIMES DAILY FOR 30 DAYS; Duration: 30 Active Cholestyramine 4 GM/DOSE TAKE FOUR GRAM BY MOUTH TWICE DAILY Oral; Duration: 100 Days Active BD Syringe/Needle 23G X 1 3 ML as directed; Duration: 90 days 06/21/2024 Active predniSONE 20 MG 3 tablets Orally Onc e a day; Duration: 5 days 12/20/2024 Active Wellbutrin XL 150 MG 1 tablet in the mor josias Orally Once a day; Duration: 30 days 09/27/2024 Active Vitamin D3 Super Strength 50 MCG (1999 UT) 1 capsule Orally Once a day; Duration: 30 days 04/20/2024 Active Testosterone Cypionate 200 MG/ML 1 mL Intramuscular every other week; Duration: 28 days 08/21/2024 Active Omeprazole 40 MG Oral; Duration: 30 Days Active Levothyroxine Sodium 175 MCG TAKE 1 TABLET BY MOUTH EVERY DAY; Duration: 30 days Active tiZANidine HCl 4 MG 2 tabs Orally qhs; Duration: 30 days 12/20/2024 Active Social History Tobacco Use: Social History Observation Description Date Details (start date - stop date) Never Smoker NA - NA Tobacco Use/Smoking Question Answer Notes Patient is a nonsmoker Tobacco use other than smoking: Question Answer Notes Are you an other tobacco user? Yes c hewing tobacco Problems Problem Type SNOMED Code ICD Code Onset Dates Problem Status W/U Status Risk Notes Problem Lumbar radiculopathy (195553291) Lumbar radiculopathy (M54.16) Active confirmed Vital Signs Weight 229.0 lbs 12/20/2024 Height 67 in 12/20/2024 Blood pressure systolic 122 mm Hg 12/21/19 25 Blood pressure diastolic 78 mm Hg 025 BMI 35.86 kg/m2 12/20/2024 Encounters Encounter Location Date Provider Diagnosis [facility] [address] [place] [address] 12/20/2024 Reid Meyer Lumbar radiculopathy M54.16 Assessments Encounter Date Diagnosis (ICD Code) Assessment Notes Treatment Notes Treatment Clinical Notes Section Notes 12/20/2024 Lumbar radiculopathy (ICD-10 - M54.16) 12/20/2024 Other Recommended to rest and use a heating pad on the area. Take NSAIDs for pain as needed Plan Of Treatment Medication Medication Name Sig Start Date Stop Date Notes Daypro 600 MG 2 tablets Orally teodora ly; Duration: 20 days 12/20/2024 predniSONE 20 MG 3 tablets Orally Onc e a day; Duration: 5 days 12/20/2024 tiZANidine HCl 4 MG 2 tabs Orally qhs; Duration: 30 days 0 12/20/2024 Treatment Notes Assessment Notes Other Recommended to rest and use a heating pad on the area. Take NSAIDs for pain as needed Pending Test Test Name Order Date XR LSPINE MIN 4 VIEWS 12/20/2024 Progress Notes * Kody ENCARNACIONDOB: 1 (54 yo M)Acc No.[id number]:12/20/2024 Progress Note Patient: Kody PAVON Provider: Woodrow Meyer ([facility])MD :1970 A ge:54 Y S ex:Male Date:12/20/2024 Address:[address] [place], [id number] Pcp:Kira Heredia Check In:09:36 AM ESTCheck O ut:10:31 AM EST Subjective: * Chief Complaints: * S ELF PAY Pinky pt- right hip pain and down into the legWhen laying down both hips hurt, back and shoulders hurt as wellDid have a fall three weeks ago, not sure if from that * HPI: G eneral: Fell and hit head - wayne mullen in last 4 days has had increasing pain into both legs - worse in R -. B ack Pain: The patient complains of -. The symptoms have been present for 1-2 days. The patient believes symptoms are injury related No. The symptoms are mild. Symptomatic treatment has included heating pad, stretching. Associated symptoms include None. * ROS: G eneral/Constitutional: Lightheadedness d enies. C hange in appetite d enies. W eight Change d enies. C ardiovascular: Irregular heartbeat d enies. S welling in hands/feet?denies. R espiratory: Shortness of breath d enies. S hortness of breath with exertion d enies. W heezing d enies. M usculoskeletal: Comments S [facility] for details. N eurologic: Dizziness d enies. F ainting d enies. H eadache?denies. 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 Modified On:05/01/2024/U Status:confirmed M79.2 Neuralgia Modified On:06/18/2024/U Status:confirmed F41.8 Anxiety and depressi on Modified On:09/27/2024U Status:confirmed R53.82 Chronic fatigue Modified On:09/27/2024U Status:confirmed E66.9 Class 1 obesity Modified On:09/27/2024U Status:confirmed F17.200 Nicotine addiction Modified On:12/07/2024U Status:confirmed Z72.89 Alcohol use Modified On:12/07/2024U Status:confirmed F12.90 Marijuana use Modified On:12/07/2024U Status:confirmed M54.16 Lumbar radiculopathy Modified On:12/20/2024 Status:confirmed * Medical History: * Surgical History: d enies * Hospitalization/Major Diagno stic Procedure: d enies * Family History: F ather: alive, diagnosed with Diabetes mellitus without mention of complication, type II or unspecified type, not stated as uncontrolled, Unspecified essential hypertension. M other: . Kitty qiu(s): alive. S ister(s): . 1 brother(s) , 2 sister(s) . 3 son(s) . .? * Social History: T obacco Use: T obacco use other than smoking A re you an other tobacco user? Y es chewing tobacco Tobacco Use/Smoking P atient is a n onsmoker * Medications: T akingBD Syringe/Needle(Syringe/Needle (Disp)) 23G X 1 3 ML Miscellaneous as directed Cholestyramine 4 GM/DOSE Powder TAKE FOUR GRAM BY MOUTH TWICE DAILY Oral Fish Oil 1000 MG Capsule TAKE 1 CAPSULE BY MOUTH THREE TIMES DAILY FOR 30 DAYS Levothyroxine Sodium 175 MCG Capsule TAKE 1 TABLET BY MOUTH EVERY DAY Omeprazole 40 MG Capsule Delayed Release Oral Testosterone Cypionate 200 MG/ML Solution 1 mL Intramuscular every other week Vitamin D3 Super Strength 50 MCG (2000 UT) Capsule 1 capsule Orally Once a day Wellbutrin XL(buPROPion HCl ER (XL)) 150 MG Tablet Extended Release 24 Hour 1 tablet in the morning Orally Once a day Medication List reviewed and reconciled with the patientTaking BD Syringe/Needle(Syringe/Needle (Disp)) 23G X 1 3 ML Miscellaneous as directed Taking Cholestyramine 4 GM/DOSE Powder TAKE FOUR GRAM BY MOUTH TWICE DAILY Oral Taking Fish Oil 1000 MG Capsule TAKE 1 CAPSULE BY MOUTH THREE TIMES DAILY FOR 30 DAYS Taking Levothyroxine Sodium 175 MCG Capsule TAKE 1 TABLET BY MOUTH EVERY DAY Taking Omeprazole 40 MG Capsule Delayed Release Oral Taking Testosterone Cypionate 200 MG/ML Solution 1 mL Intramuscular every other week Taking Vitamin D3 Super Strength 50 MCG (1999 UT) Capsule 1 capsule Orally Once a day Taking Wellbutrin XL(buPROPion HCl ER (XL)) 150 MG Tablet Extended Release 24 Hour 1 tablet in the morning Orally Once a day Medication List reviewed and reconciled with the patient * Allergies: N .K.D.A.no[Allergies Verified] Objective: * Vitals: W t:229.0lbs, Ht: 67 in, BP:122/78mm Hg, BMI:35.86Index, Ht-cm: 170.18 cm, Wt-k.87 kg. * Examination: G eneral Examination: GENERAL APPEARANCE: i n no acute distress, well developed, well nourished. LUNGS: clear to auscultation bilaterally. CARDIO: S1, S2 normal, no murmurs, rubs, gallops. MUSCULOSKELETAL: P oor romin b ack due to pain -. EXTREMITIES: no clubbing, cyanosis, or edema. NEUROLOGIC: alert, oriented to time, place, & person.? Assessment: * Assessment: 1. L umbar radiculopathy - M54.16 (Primary) Plan: * Treatment: 2. O thers Notes: Recommended to rest and use a heating pad on the area. Take NSAIDs for pain as needed ? * Procedure Codes: * Preventive Medicine: Screenings/Counseling: B NC ACTION PLAN Above Normal BMI Follow-up D ietary management education, guidance, and counseling * * Sign off status: Completed Visit Status: C HK (Check Out) true * Provider: Woodrow Meyer ([facility])MD Date: 0 12/20/2024 Generated for Keisha garcia/Claribel/eTransmitting on: 0 12/26/2024 08:46 AM EDT History and Physical Notes * HPI (History of Present Illness) Category Sub-Category Detail Notes Category Not es General Fell and hit head - wayne palce in last 4 days has had increasing pain into both legs - worse in R - Examination Category Sub-Category Detail Notes Category Not es General Examination GENERAL APPEARANCE: in no ac kenaitze distress, well developed, well nourished CARDIO: S1, S2 normal, no mu rmurs, rubs, gallops LUNGS: clear to auscultatio n bilaterally NEUROLOGIC: alert, oriented to t kimberly, place, & person EXTREMITIES: no clubbing, cyanosi s, or edema MUSCULOSKELETAL: Poor romin b ack due to pain -
--- OUTSIDE RECORDS SUMMARY | 2024-12-20 15:01 | XMS_ITS ---
Author Organization [facility] [place] Address [address] [place] [address] Care Team Providers Care Tread Tuber Machine Operator Name Role Phone Kira Heredia Primary Care Provider [phone] Peternikhil Reid Caballero [phone] Reason For Referral Diagnosis 1 Lumbar radiculopathy (M54.16) Referral Organization [facility] Referring Provider First Name Reid Referring Provider Last Name Betsy Referring Provider Speciality Family Med icine Referred Provider Specialty Physical Med icine and Rehabilitation Referral Priority Routine REASON FOR VISIT review xray Encounters Encounter Location Date Provider Diagnosis [facility] [address] [place] [address] 12/20/2024 Reid Meyer Lumbar radiculopathy M54.16 Assessments Encounter Date Diagnosis (ICD Code) Assessment Notes Treatment Notes Treatment Clinical Notes Section Notes 12/20/2024 Lumbar radiculopathy (ICD-10 - M54.16) Plan Of Treatment Referrals Referral Date Details 12/21/2024 12/21/2024 Progress Notes * Kody ENCARNACIONDOB: 1 (54 yo M)Acc No.[id number]:12/20/2024 Patient: Kody PAVON :1970 A ge:54 Y S ex:Male Address:[address], [place] [address] Subjective: * Chief Complaints: * R eview xray * Medical History: * Surgical History: * Hospitalization/Major Diagno stic Procedure: * Medications: Objective: * Vitals: * Physical Examination: Assessment: * Assessment: 1. L umbar radiculopathy - M54.16 (Primary) Plan: * Treatment: * Procedure Codes: * true * Date: Generated for Keisha garcia/Claribel/Renan on: 0 12/26/2024 08:44 AM EDT Consultation Request Notes Referral Date Referring Provider Referred Provider Not es 12/21/2024 Reid Meyer ,
--- OUTSIDE RECORDS SUMMARY | 2024-12-26 08:43 | XMS_ITS | Patient Health Record ---
Author Organization [facility] Address [address] [place] [address] Care Team Providers Care Vending Supervisor Name Role Phone John Cartagena Unavailable [phone] Kira Heredia Unavailable Unavailable xxEduardo Zita Unavailable [phone] Allergies No Known Allergies Results Component Value [...] Notes/Report: MRI : Hand W/O Contrast [facility] t - [id number] Reviewed date:08/29/2024 09:42:38 AM Interpretation: Performing Lab: Notes/Report: Reason For Referral Reason APPROVED.........PLE ASE OBTAIN AUTHORIZATION FOR MRI RIGHT HAND Diagnosis 1 Swelling of right bonds nd (M79.89) Referral Organization [facility] Referring Provider First Name John Referring Provider Last Name Cartagena Referring Provider Speciality Orthopedic Surgery Referred Organization [facility] molly Referred Address [place], [place], Procedure 1 MRI Upper Ext NON-Cindy int w/o Dye ([id number]) General Notes Marie oMrris 025 02:49:42 PM >NEED DICTATION, Marie Morris 05/28/2024 02:52:50 PM >PENDING R[facility]O TRX # [id number] CLINICAL ATTACHED.............NEED DICTATION TO UPLOADSukhjinder Kimberly 05/28/2024 03:23:43 PM >Printed for Brooklyn Ahumada Monica 05/29/2024 12:14:20 PM >DONEAlexandra Amy 05/29/2024 12:32:29 PM >CLINICAL UPLOADED, Marie Morris 05/30/2024 07:51:05 AM >STILL PENDINGAlexandra Amy 05/31/2024 07:20:27 AM >APPROVED PER RAYO AUTH #[id number] VALID 05/28/2024-08/26/2024 COPY IN CHART MA NOTIFIED [...] [facility] SCH[facility]UL[facility] Referred Address [address] [place] [address], General Notes Vonda Barahona 2024 09:14:14 AM > FAXEDSukhjinder Kimberly 10/26/2024 09:30:21 AM >Received a call from Cheryl with [employer]. Christian Lewis in [place] is in network with [employer]. Faxed referral [...] Problem Status W/U Status Risk Notes Problem [id number] Right hand paresthesia (R20.2) Active confirmed Problem [id number] Swelling of right hand (M79.89) Active confirmed Problem Fall, initial encounter (W19.XXXA) Active confirmed Vital Signs Height 5'6 in 09/10/2024 Weight 225 lbs 09/10/2024 BMI 36.31 09/10/2024 Encounters Encounter Location Date Provider Diagnosis [facility] [facility] [address] [place] [address] [place] [address] 12/19/2024 John Cartagena Right hand paresthesia R20.2 [facility] [address] [place] [address] [place] [address] 05/14/2024 John Cartagena Other bursitis of knee, left knee M70.52 ; Stiffness of right hand joint M25.641 and Swelling of right hand M79.89 [facility] [address] [facility] [place] [address] [place] [address] 05/28/2024 Zita Carter Swelling of right hand M79.89 and Fall, initial encounter W19.XXXA [facility] [address] [place] [address] [place] [address] 09/10/2024 John Cartagena Right hand paresthesia R20.2 [facility] [address] [place] [address] 05/25/2024 John Cartagena Assessments Encounter Date Diagnosis [...] Martínez and, 12/26/2024 03:00:00 PM, [address] , [place] [address], [place], [address], Insurance Providers Payer Name Payer Address Payer Phone Subscriber Number Group Number Insured Name Patient Relationship to Insured Coverage Start Date Coverage End Date [facility] [address] [address] [place] [address] [id number] TATE ENCARNACION Self - patient is the insured Medical (General) History Medical History History ICD Code Hypothyroidism GI Problems: Depression Sleep apnea CPAP Machine: Yes
--- OUTSIDE RECORDS SUMMARY | 2024-12-26 08:44 | XMS_ITS | CCD ---
Author Organization [facility] Care Team Providers Care Facility Coordinator Name Role Phone NADERER, LUIS ANTONIO A [...] Unallocated , Noms Provider Primary Care Provi [facility] Sandra Castellanos DO Unavailable Alejandra Hayden A. [...] Hayden Attending Unavailable Alejandra Hayden Attending Unavailable SarmanueliGonzález Attending Unavaila ble SIMON, Ji Be Attending Unavailable SIMON, Ji R Attending Unavailable SIMON, Ji R Attending Unavailable SIMON, Ji R Attending Unavailable SIMON, Ji R Attending Unavailable SIMON, Ji R Attending Unavailable Iniguez, Jorge L T Admitting Unavailable Iniguez, Jorge L Rahman Attending Unavailable Iniguez, Jorge L T Referring Unavailable SIMON, Ji R Attending Unavailable SIMON, Ji R Admitting Unavailable González Sutton Attending Unavaila ble SarminGonzález sherwood Attending Unavaila ble Allergies Allergy Classification Reported Allergen(s) Allergy Type Date of Onset Reaction(s) Facility (5 sources) No Known Medication Allergies; Translations: [No Known Medication Allergies] Propensity to adverse reactions (disorder) [facility] Repository Medications Current Medications Medication Drug Class(es) Dates Sig (Normalized) Sig (Original) amylase 803900 unt / lipase 35497 unt / protease [id number] unt delayed release oral capsule (6 sources) Start: 07-17-2024 Creon 36,000 units oral delayed release capsule 2 cap(s), Oral, TID, 360 cap(s), Refill(s) 3, [facility], 170, cm, 07/17/24 13:04:00 EDT, Height/Length Dosing, 101, kg, 07/17/24 13:04:00 EDT, Weight Dosing Start Date: 07/17/24 Status: Ordered Quantity: 360.0 Unit: cap(s) Repeat number: 4 amylase 231081 UNT / lipase 61245 UNT / protease [id number] UNT Delayed Release Oral Capsule [Zenpep] (3 sources) Start: 04-30-2024 Zenpep 60,000 units-189,600 units-252,600 units oral delayed release capsule See Instructions, 300 cap(s), Refill(s) 3, Take 2 caps with each meal and 1 with each snack, [facility], 170, cm, 04/24/24 8:57:00 EST, Height/Length [...] gm, Oral, BID, 378 gm, Refill(s) 11, [facility], 170, cm, 05/11/24 7:28:00 EST, Height/Length Dosing, 108.6, kg, 05/11/24 7:28:00 EST, Weight Dosing Start Date: 05/14/24 Status: Ordered Quantity: 378.0 Unit: g Repeat number: 12 Start: 04-24-2024 Questran 4 g/9 g oral powder = 1 packet(s), Oral, BID, # 60 EA, Refills(s) 0, Pharmacy: [facility], 170, cm, 04/24/24 8:57:00 EST, Height/Length Dosing, 108.6, kg, 04/24/24 8:57:00 EST, Weight Dosing Start Date: 04/24/24 Status: Ordered Quantity: 60.0 Unit: EA Repeat number: 1 Indications: Melena; Irritable bowel syndrome with diarrhea; Abdominal distension (gaseous); Gastro-esophageal reflux disease without esophagitis; Fish Oils (6 sources) Start: 08-16-2024 Fish Oil Oral, Refill(s) 0 Start Date: 08/16/24 Status: Ordered Repeat number: 1 FLUoxetine 20 mg oral capsule (20 sources) Serotonin Reuptake Inhibitor Start: 05-14-2024 take 1 capsule by mouth once daily FLUoxetine (PROzac) 20 MG capsule Take 20 mg by mouth Daily 05/14/2024 Active Start: 04-24-2024 take 20 mg by mouth once daily Prozac 20 mg, Oral, Daily, Refills(s) 0, Depression Start Date: 04/24/24 Status: Ordered Repeat number: 1 icosapent ethyl 1000 mg oral capsule (20 sources) Start: 04-24-2024 take 1 capsule by [...] evening. Take with meals. 04/20/2024 Active levothyroxine (20 sources) l-Thyroxine Start: 04-24-2024 levothyroxine Daily, Refills(s) [...] omeprazole 40 mg delayed release oral capsule (15 sources) Proton Pump Inhibitor Start: 05-11-2024 take 1 capsule by mouth twice daily omeprazole 40 mg Cap-DR 40 mg = 1 cap(s), Oral, BID, # 180 cap(s), Refills(s) 3, Pharmacy: [facility], 170, cm, 05/11/24 7:28:00 EST, Height/Length Dosing, 108.6, kg, 05/11/24 7:28:00 EST, Weight Dosing Start Date: 05/11/24 Status: Ordered Quantity: 180.0 Unit: cap(s) Repeat number: 4 testosterone cypionate 200 mg/ml injectable solution (3 sources) Androgen Start: 12-24-2024 Depo-Testosterone 200 mg/mL intramuscular solution 400 mg, IntraMuscular, q4wk, Inject 400mg IM q 4 weeks, # 10 mL, Refills(s) 2, Pharmacy: [facility], 165, cm, 09/10/24 15:33:00 EDT, Height/Length Dosing, 108, kg, 09/10/24 15:33:00 EDT, Weight Dosing Start Date: 12/24/24 Status: Ordered Quantity: 10.0 Unit: mL Repeat number: 3 Indications: Testicular hypofunction; Start: 05-07-2024 AndroGel Pump 20.25 mg/1.25 g (1.62%) transdermal gel = 2 pump, Topical, qAM, # 75 gram, Refills(s) 3, Pharmacy: [facility], 165, cm, 05/07/24 9:19:00 EST, Height/Length Dosing, 108.1, kg, 05/07/24 9:19:00 EST, Weight Dosing Start Date: 05/07/24 Status: Ordered testosterone cypionate 200 mg/mL IM Claribel (3 sources) Start: 11-12-2024 testosterone c ypionate 200 mg/mL IM Claribel 400 mg, IntraMuscular, q4wk, # 10 mL, Refills(s) 3, Pharmacy: [facility], 165, cm, 09/10/24 15:33:00 EDT, Height/Length Dosing, 108, kg, 09/10/24 15:33:00 EDT, Weight Dosing Start Date: 11/12/24 Status: Ordered Quantity: 10.0 Unit: mL Repeat number: 4 Indications: Testicular hypofunction; Vitamin D3 50 mcg (2000 intl units) oral tablet, chewable (13 sources) Start: 04-24-2024 take 1 tablet by [...] Sig (Original) tadalafil 20 mg oral tablet (9 sources) Phosphodiesterase 5 Inhibitor Start: 12-11-2024 take [...] hours., # 30 tab(s), Refills(s) 0, Pharmacy: [facility], 165, cm, 09/10/24 15:33:00 EDT, Height/Length [...] hours., # 30 tab(s), Refills(s) 0, Pharmacy: [facility], 165, cm, 09/10/24 15:33:00 EDT, Height/Length [...] hours., # 30 tab(s), Refills(s) 0, Pharmacy: [facility], 165, cm, 05/07/24 9:19:00 EST, Height/Length Dosing, 108.1, kg, 05/07/24 9:19:00 EST, Weight Dosing Start Date: 05/07/24 Status: Ordered Problems Problem Classification Problem Date Documented Da te Episodic/Chronic Deficiency and other anemia (13 sources) Anemia of chronic disease 04-24-2024 Chronic Disorders of lipid metabolism (14 sources) Pure hyperglyceridemia; Translations: [Pure hyperglyceridemia] Onset: 5 Chronic Esophageal disorders (15 sources) Gastroesophageal reflux disease without esophagitis; Translations: [Gastro-esophageal reflux disease without esophagitis] Onset: 5 Chronic Essential hypertension (13 sources) Benign hypertension 04-24-2024 Chronic Gastrointestinal hemorrhage (8 sources) Melena; Translations: [Melena] Onset: 5 Episodic Hyperplasia of prostate (11 sources) Benign prostatic hypertrophy with outflow obstruction; Translations: [Benign prostatic hyperplasia with lower urinary tract symptoms] Onset: 5 Chronic Malaise and fatigue (4 sources) Other fatigue; Translations: [OTHER FATIGUE] Onset: 8 Episodic Miscellaneous mental health disorders (20 sources) Psychosomatic factor in physical condition; Translations: [Psychological and behavioral factors associated with disorders or diseases classified elsewhere] Onset: 5 Chronic Other and unspecified benign neoplasm (8 sources) Polyp of colon; Translations: [Polyp of colon] Onset: 5 Episodic Other connective tissue disease (13 sources) Swelling of hand; Translations: [Other specified soft tissue disorders] Onset: 5 05-15-2024 Episodic Other connective tissue disease (2 sources) Neuralgia; Translations: [Neuralgia and neuritis, unspecified] 05-17-2024 Episodic Other endocrine disorders (2 sources) Testicular hypofunction; Translations: [Testicular hypofunction] Onset: 5 Chronic Other endocrine disorders (9 sources) Male hypogonadism 05-07-2024 Chronic Other gastrointestinal disorders (9 sources) Irritable bowel syndrome with diarrhea; Translations: [Irritable bowel syndrome with diarrhea] Onset: 5 Chronic Other gastrointestinal disorders (2 sources) Swollen abdomen; Translations: [Abdominal distension (gaseous)] Onset: 5 Episodic Other gastrointestinal disorders (13 sources) Abdominal bloating 04-24-2024 Episodic Other gastrointestinal disorders (13 sources) Black feces 04-24-2024 Episodic Other liver diseases (8 sources) Steatosis of liver; Translations: [Fatty (change of) liver, not elsewhere classified] Onset: 5 Chronic Other male genital disorders (10 sources) Acquired buried penis; 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] Onset: 5 Chronic Other male genital disorders (11 sources) Male erectile dysfunction, unspecified; Translations: [Erectile dysfunction] Onset: 5 Chronic Other non-traumatic joint disorders (13 sources) Stiffness of joint of right hand; Translations: [Stiffness of right hand, not elsewhere classified] Onset: 5 05-15-2024 Episodic Other nutritional; endocrine; and metabolic disorders (1 source) Obesity; Translations: [Other obesity due to excess calories] Onset: 5 Chronic Other nutritional; endocrine; and metabolic disorders (13 sources) Obesity caused by energy imbalance 04-24-2024 Chronic Other screening for suspected conditions (not mental disorders or infectious disease) (16 sources) Encounter for screening for malignant neoplasm [...] status] Onset: 5 Episodic Residual codes; unclassified (13 sources) Current drinker 04-24-2024 Episodic Thyroid disorders (5 sources) Hypothyroidism, unspecified; Translations: [HYPOTHYROIDISM UNSPECIFIED] Onset: Chronic Unclassified (9 sources) Patient encounter status 05-07-2024 Results Test Name Value Interpretation Reference Range Facility Ambulatory Visit Summaryon 0 12-24-2024 Ambulatory Visit Summary Ambulatory Visit Summary TATE ENCARNACION :1970 Visit Date:12/24/2024 Ambulatory Visit Instructions Your Diagnosis Hypogonadism male Your Care Team Attending Physician - AURORA [...] to do next Scheduled Follow-Up Appointments Tuesday 3:15 PM EDT With: AURORA ROMERO, Ji Be Where: [facility] [address] [address]- Medications What How Much When Why Instructions [...] signed up for this yet, please contact [employer]ab at [phone] to get signed up today. Language Information Language assistance services are available as needed. Normal [facility] Ambulatory Visit Summaryon 0 12-11-2024 Ambulatory Visit [...] AM EDT With: Where: [facility] [address] [place] [address]- Tuesday 3:15 PM EDT With: AURORA ROMERO, Ji Be Where: [facility] [address] [place] [address]- Medications What How Much When Why Instructions [...] signed up for this yet, please contact [employer] at [phone] to get signed up today. Language Information Language assistance services are available as needed. Normal [facility] Reminderson 11-13-2024 Reminders Reminders From: [...] the same time. From: Gina Barbosa To: [facility] - Reminders/Recalls; Sent: 08/20/2024 17:06:58 EDT [...] patient to call back to schedule. Normal [facility] Ambulatory Visit Summaryon 0 10-15-2024 [...] signed up for this yet, please contact [employer] at [phone] to get signed up today. Language Information Language assistance services are available as needed. Eric [facility] Ambulatory Visit Summaryon 0 09-14-2024 [...] for choosing us for your care. Eric [facility] Ambulatory Visit Summaryon 0 09-10-2024 Ambulatory Visit Summary Ambulatory Visit Summary TAET ENCARNACION :1970 Visit Date:09/10/2024 Ambulatory Visit Instructions [...] acids (Fish Oil) omeprazole (omeprazole 40 mg Woody-) pancrelipase (Creon 36,000 units oral delayed release [...] level Where: [facility] [address], [place] [phone] Medications What How Much When Why Instructions Unchanged tadalafil (tadalafil 20 mg Tab) 1 Tablets By Mouth As Directed as needed for for erectile dysfunction ED (erectile dysfunction) Pt to take one tab 1 hour prior to sexual activity. Do not exceed 20mg in 24 hours. Pickup at [facility] Unchanged cholecalciferol (Vitamin D3 50 mcg [...] physician if questions or concerns Pharmacy Information [facility]: [address] [place], [place] [phone] Allergies No Known Allergies No Known Medication [...] less testosteron (more content not included)... Normal [facility] Urology Office/Clinic Noteon 09-10-2024 Urology Office/Clinic Note [...] URL [facility] [address], [place] [address]- [phone] Additional Instructions: 4 mos w/ T level Patient Education Hypogonadism, Male I, Nirmala Lama, personally scribed for Dr. Simon on 09/10/2024 16:16:02. . Documentation recorded by the Nirmala carroll, accurately reflects the services(s) I performed and [...] Oral, Daily Von (more content not included)... [facility] Comment on above: Result Comment: Elec tronically [...] schedule all three at the same time. [facility] Gastroenterology Office/Clin ic Noteon 08-16-2024 Gastroenterology Office/Clinic [...] first-degree relative, we will send him to [facility] for genetic counseling the based [...] inactivated - Not Given Patient Refuses Normal [facility] Comment on above: Result Comment: [...] ROMERO, González Cadena Primary Care Physician - IKRA GARRISON CNP This Is Your Medications List [...] ROMERO, Ji Be Where: [place] [address]- Medications What How Much When Why Instructions Changed pancrelipase (Creon 36,000 units oral delayed release capsule) 2 Capsules By Mouth 3 times a day Pickup at [facility] Unchanged cholecalciferol (Vitamin D3 50 mcg [...] physician if questions or concerns Pharmacy Information [facility]: [address] [place] [phone] Allergies No Known Allergies No Known Medication [...] choosing us for your care. Normal [facility] Gastroenterology Office/Clin ic Noteon 07-17-2024 Gastroenterology [...] When Contact Information Lesley ROMERO, González Cadena [facility] In 6 weeks [address], [address] [phone] Additional Instructions: Problem List/Past Medical History Ongoing [...] inactivated - Not Given Patient Refuses Normal [facility] Comment on above: Result Comment: Elec tronically Signed By: González Sutton MD\.br\Date and Time Signed: 07/17/24 13:53 EDT\.br\Electronically Co-Signed By: Syeda Chavez MA\.br\Date and Time Co-Signed: 07/17/24 13:51 EDT Reminderson 06-05-2024 Reminders Reminders From: Glo Hilario I To: [facility] - Reminders/Recalls; Sent: 06/05/2024 08:25:46 EST Show up: 03/11/2031 08:25:00 EST Subject: Colonoscopy recall Due Date/Time: 05/11/2031 08:25:00 EST Reminder/Recall [address] Sutton 05/11/24 Normal [facility] Gastroenterology Office/Clin ic Noteon 05-21-2024 Gastroenterology Office/Clinic Note Gastroenterology Office/Clinic Note Chief Complaint follow up to egd/colonoscopy HPI Staff Established patient is a(n) 53 year old male who presents today for a follow up to EGD & Colonoscopy on 05/11/24. Pt previously seen with Dr. Hayden, but insurance was denying EGD/Colon stating he was out of network for [employer]. Pt was r/s with Dr. Sutton. Fecal [...] recorded by (more content not included)... Normal [facility] Comment on above: Result Comment: Elec tronically Signed By: González Sutton MD\.br\Date and Time Signed: 05/21/24 09:44 EST\.br\Electronically Co-Signed By: Syeda Chavez MA\.br\Date and Time Co-Signed: 05/21/24 09:42 EST Surgical Pathology Reporton 05-17-2024 Surgical Pathology Report [facility] [address] [place] [address]- Surgical Pathology Report Collected Date/Time: 05/11/2024 08:38 [...] recognition technology and might contain unintended computerized it communications manager errors. The use of one or more reagents in the above tests is regulated as an analyte specific reagent (ASR). The test or tests are ordered following initial H&E microscopic examination. The performance characteristics were determined by the [facility] Surgical Pathology. They have not been cleared or approved by the US Food and Drug Administration. The FDA has determined that such clearance or approval is not necessary. These tests are used for clinical purposes. They should not be regarded as investigational or for research. Appropriate positive and negative co (more content not included)... Normal [facility] Comment on above: Performed By: #### 4 [id number] #### [facility] [address] [place] [address] Discharge Instructionson Discharge Instructions Discharge Instructions TATE ENCARNACION :1970 Visit Date:05/11/2024 Inpatient Discharge Instructions Your Care Team Admitting Physician - Mouchli MD, Mohamad A. Referring Physician - Alejandra Hayden MD Reason [...] EST With: Lesley ROMERO, González Cadena Where: [facility] [address] [place] [address]- Tuesday 9:45 AM EDT With: Ji SIMON MD Where: [facility] [address] [facility] [place] [address] [place] [address]- Medications What How Much When Why Instructions Next Dose New omeprazole (omeprazole 40 mg Cap-DR) 1 Capsules By Mouth 2 times a day Refills: 3 Pickup at [facility] Unchanged cholecalciferol (Vitamin D3 50 mcg [...] a day (in the morning) Pharmacy Information [facility]: [address] [place], [place] [phone] Test Results No qualifying data available. Allergies [...] tarry stool (more content not included)... Normal [facility] Comment on above: Result Comment: [...] EST With: Lesley ROMERO, González Cadena Where: [facility] [address] [place] [address] [place] [address]- Tuesday. 2024 9:45 AM EDT With: AURORA ROMERO, Ji Be Where: [facility] [address] [place] [address] [place] [address]- Medications What How Much When Why Instructions Next Dose New omeprazole (omeprazole 40 mg Cap-DR) 1 Capsules By Mouth 2 times a day Refills: 3 Pickup at [facility] Unchanged cholecalciferol (Vitamin D3 50 mcg [...] a day (in the morning) Pharmacy Information [facility]: [address] [place], [place] [phone] Test Results No qualifying data available. Allergies [...] malt extra (more content not included)... Normal [facility] Comment on above: Result Comment: Elec tronically Signed By: Cy SADLER, Mariama\.br\Date and Time Signed: 05/11/24 09:30 EST Main OR Intraoperative Recor don 05-11-2024 Main OR Intraoperative Record Main OR Intraoperative Record IntraOp Document Type FT Summary Primary Physician: González Sutton MD Finalized Date/Time: 05/11/24 10:41:05 Pt. Name: TATE ENCARNACION/Sex: 1970 Male Med Rec #: [id number] Physician: Alejandra Hayden MD Financial #: [id number] Pt. Type: O Room/Bed: / Admit/Disch: 05/11/24 [...] Negrete RN, Sheldon Martines Role Performed Anesthesiologist Sap Bobj Developer - Primary Scrub - Primary Manufacturing Plant Manager Time In 05/11/24 08:30:00 05/11/24 08:30:00 [...] and tissue Entry 1 Skin Integrity Intact, [place], Warm, & Skin Abnormality No Dry Outcomes Met? Yes Last Modified By: Becky Negrete RN 05/11/24 09:06:34 Post-Care Text: The patient is free from signs and sym (more content not included)... Normal [facility] Main OR PACU II Recordon Main OR PACU II Record Main OR PACU II Record PACU Phase II Document Type FT Summary Primary Physician: González Sutton MD Finalized Date/Time: 05/11/24 10:02:45 Pt. Name: SHASHANK TATEANNAMARIA Carreno/Sex: 1970 Male Med Rec #: [id number] Physician: Alejandra Hayden MD Financial #: [id number] Pt. Type: O Room/Bed: / Admit/Disch: 05/11/24 [...] Signed By: Mariama Benoit RN 05/11/24 10:02 [facility] Main OR Preoperative Recordo n 05-11-2024 Main OR Preoperative Record Main OR Preoperative Record Holding Area Document Type FT Summary Primary Physician: González Sutton MD Finalized Date/Time: 05/11/24 07:18:36 Pt. Name: SHASHANKTATE/Sex: 1970 Male Med Rec #: [id number] Physician: Alejandra Hayden MD Financial #: [id number] Pt. Type: O Room/Bed: / Admit/Disch: 05/11/24 [...] By: Rachel Cortez RN 05/11/24 07:18 Normal [facility] Ambulatory Visit Summaryon 0 05-07-2024 Ambulatory Visit [...] Appointments Tuesday 8:15 AM EST With: Where: [facility] Tuesday 9:00 AM EST With: Lesley ROMERO, González Cadena Where: [facility] [address] [facility] [address] [place] [address]- Tuesday 9:45 AM EDT With: Ji SIMON MD Where: [facility] [address] [place] [address]- You Need to Schedule the Following Appointments Follow Up with AURORA ROMERO, Ji Be, URL When: Comments: 4 mos w/ PSA and T level Where: [facility] [address], [facility] [place] [phone] Medications What How Much When Why Instructions New tadalafil (tadalafil 20 mg Tab) 1 Tablets By Mouth As Directed as needed for for erectile dysfunction Pt to take one tab 1 hour prior to sexual activity. Do not exceed 20mg in 24 hours. Pickup at [facility] New testosterone (AndroGel Pump 20.25 mg/ 1.25 g (1.62%) transdermal gel) 2 Pump Topical Once a day (in the morning) Refills: 3 Pickup at [facility] Unchanged cholecalciferol (Vitamin D3 50 mcg [...] physician if questions or concerns Pharmacy Information [facility]: [address] [place], [place] [phone] Allergies No Known Allergies No Known Medication [...] gives men (more content not included)... Normal [facility] Urology Office/Clinic Noteon 05-07-2024 Urology [...] -Start Cialis 20mg prn. Rx sent to [facility]. Recommended GoodRx. 2. Hypogonadism male (E29.1: [...] buried peni (more content not included)... Normal [facility] Comment on above: Result Comment: Elec tronically Signed By: Ji SIMON MD\.br\Date and Time Signed: 05/07/24 10:05 EST\.br\Electronically Co-Signed By: Nirmala Lama.jeaneth\Date and Time Co-Signed: 05/07/24 09:58 EST Calprotectin, Fecalon 2024 Calprotectin (Stl) [Mass/Mass] 15 mcg/gm Invalid Interpretation Code 0-120 [facility] Comment on above: Result Comment: Conc entration Interpretation Follow-Up < 5 - 50 ug/g Normal None >50 -120 ug/g Borderline Re-evaluate in 4-6 weeks >120 ug/g Abnormal Repeat as clinically indicated Performed at: [facility] [address] [id number] MD Alfredo Green Performed By: #### 1 [id number] #### [facility] [address] [place] [address] Pancreatic Elastase, Fecalon 04-28-2024 Elastase.pancreatic (Stl) [Mass/Mass] 9 Low >200 [facility] Comment on above: Result Comment: Nicole re Pancreatic Insufficiency: <100 Moderate Pancreatic Insufficiency: 100 - 200 Normal: >200 Performed at: [facility] [id number] MD Alfredo Green Performed By: #### 1 [id number] ####[facility] [address] [place] [address] US Abdomen, Limitedon 2024 US Abdomen, Limited [...] Transcribed by: MARIA C Technologist: AD, Normal [facility] Celiac Disease Comprehensive on 04-25-2024 Endomysium IgA Ql (S) Negative Invalid Interpretation Code Negative [facility] Comment on above: Result Comment: Seru m is slightly lipemic. Performed By: #### 1 [id number] #### [facility] [address] [place] [address] Gliadin peptide IgA Qn (S) 4 unit(s) Invalid Interpretation Code 0-19 [facility] Comment on above: Result Comment: Nega tive 0 - 19 Weak Positive 20 - 30 Moderate to Strong Positive >30 Performed By: #### 1 [id number] #### [facility] [address] [place] [address] Gliadin peptide IgG Qn (S) 2 unit(s) Invalid Interpretation Code 0-19 [facility] Comment on above: Result Comment: Nega tive 0 - 19 Weak Positive 20 - 30 Moderate to Strong Positive >30 Performed By: #### 1 [id number] #### [facility] [address] [place] [address] IgA [Mass/Vol] 213 mg/dL Invalid Interpretation Code 90-386 [facility] Comment on above: Result Comment: Perf ormed at: [facility] [address] [id number] PhD Franklin Pollard Performed By: #### 1 [id number] #### [facility] [address] [place] [address] tTG IgA Qn (S) <2 Invalid Interpretation Code 0-3 [facility] Comment on above: Result Comment: Nega tive 0 - 3 Weak Positive 4 - 10 Positive >10 Tissue Transglutaminase (tTG) has been identified as the endomysial antigen. Studies have demonstr- ated that endomysial IgA antibodies have over 99% specificity for gluten sensitive enteropathy. Performed By: #### 1 [id number] #### [facility] [address] [place] [address] tTG IgG Qn (S) <2 Invalid Interpretation Code 0-5 [facility] Comment on above: Result Comment: Nega tive 0 - 5 Weak Positive 6 - 9 Positive >9 Performed By: #### 1 [id number] #### [facility] [address] [place] [address] Testost Totalon 04-25-2024 Testosterone [Mass/Vol] 194 ng/dL Low 264-916 [facility] Comment on above: Result Comment: Adul t male reference interval is based on a population of healthy nonobese males (BMI <30) between 19 and 39 years old. Mildred, et.al. JCEM 2017,102;7641-5320. PMID: [id number]. Performed at: [facility] [id number] PhD Franklin Pollard Performed By: #### 2 [id number] #### [facility] [address] [place] [address] Ambulatory Visit Summaryon 0 04-24-2024 Ambulatory Visit [...] AM EST With: Alejandra Hayden MD Where: [facility] [address] [address]- You Need to Complete the Following C-Reactive [...] Decreased sexual desire, pp_set_radiology_subspecialty , [place] Medications What How Much When Why Instructions New cholestyramine (Questran 4 g/ 9 g oral powder) 1 Packets By Mouth 2 times a day Irritable bowel syndrome with diarrhea Bloating Black stool Chronic GERD Pickup at [facility] Unchanged cholecalciferol (Vitamin D3 50 mcg [...] physician if questions or concerns Pharmacy Information [facility]: [address] [id number] [phone] Medications and Immunizations Administered Not Given influenza [...] for choosing us for your care. Normal [facility] CHEMISTRYOrdered By: SYSTEM SYSTEM on 04-24-2024 CRP [Mass/Vol] 0.2 mg/dL Normal <=1.9mg/dL Remisol Chem CRPon 04-24-2024 CRP [Mass/Vol] 0.2 mg/dL Normal <=1.9 [facility] Comment on above: Performed By: #### 2 [id number] #### [facility] [address] [place] [address] Gastroenterology Office/Clin ic Noteon 04-24-2024 Gastroenterology Office/Clinic [...] BID, # 60 EA, Refills(s) 0, Pharmacy: [facility], 170, cm, 04/24/24 8:57:00 EST, Height/Length Dosing, 108.6, kg, 04/24/24 8:57:00 EST, Weight Dosing C-Reactive Protein Calprotectin, Fecal Celiac Disease Comprehensive Colonoscopy (Hospital Procedure) EGD Endoscopy (Hospital Procedure) IgA, Quant. Pancreatic Elastase, Fecal Pancreatic Elastase, Fecal Testosterone Level Total US Abdomen, Limited 2. Bloating (R14.0: Abdominal distension (gaseous)) Ordered: cholestyramine, = 1 packet(s), Oral, BID, # 60 EA, Refills(s) 0, Pharmacy: [facility], 170, cm, 04/24/24 8:57:00 EST, Height/Length Dosing, 108.6, kg, 04/24/24 8:57:00 EST, Weight Dosing C-Reactive Protein Calprotectin, Fecal Celiac Disease Comprehensive Colonoscopy (Hospital Procedure) EGD Endoscopy (Hospital Procedure) IgA, Quant. Pancreatic Elastase, Fecal Pancreatic Elastase, Fecal Testosterone Level Total US Abdomen, Limited 3. Black stool (K92.1: Melena) Ordered: cholestyramine, = 1 packet(s), Oral, BID, # 60 EA, Refills(s) 0, Pharmacy: [facility], 170, cm, 04/24/24 8:57:00 EST, [...] BID, # 60 EA, Refills(s) 0, Pharmacy: [facility], 170, cm, 04/24/24 8:57:00 EST, Height/Length [...] (E66.09: Ot (more content not included)... Normal [facility] Comment on above: Result Comment: Elec tronically Signed By: Jackelyn ROMERO, Alejandra Kelly\.br\Date and Time Signed: 04/24/24 09:30 EST FREE T3on 03-15-2018 T3 free mass conc 3.10 pg/mL Normal 2.77-5.27 [facility] Comment on above: Performed By: #### B MP, LIVER, FT3, LIPID, PSASC, TSH, DLDL ####[facility] Fidhhaqalz[address] [place] FREE T4on 03-15-2018 T4 free mass conc 0.88 ng/dL Normal 0.78-2.19 [facility] Comment on above: Performed By: #### B MP, LIVER, FT3, LIPID, PSASC, TSH, DLDL ####[facility] Fuwbvenghg9960 [address] [place] TSHon 03-15-2018 Thyrotropin Qn 7.705 uIU/mL Critically high 0.470-4.680 [facility] Comment on above: Performed By: #### B MP, LIVER, FT3, LIPID, PSASC, TSH, DLDL ####[facility] Xvmqdgcijl5813 [address] [place] Thyrotropin Qn SEE BELOW Normal [facility] Comment on above: Result Comment: <0.3 4 UIU/ml HYPERTHYROID 0.34-5.60 UIU/ml EUTHYROID >5.60 UIU/ml HYPOTHYROID Performed By: #### B MP, LIVER, FT3, LIPID, PSASC, TSH, DLDL ####[facility] Alvvedikup8292 [address] [place] TESTOSTERONE, TOTALon 2017 Testosterone [Mass/volume] in Serum or Plasma 314 ng/dL Normal 264-916 [facility] Comment on above: Result Comment: Adul t male reference interval is based on a population ofhealthy nonobese males (BMI <30) between 19 and 39 years old.Mildred, et.al. JCEM 2017,102;8874-2095. PMID: [id number]. Performed By: #### B MP, LIVER, FT3, LIPID, PSASC, TSH, DLDL ####[facility] Ugnghqybfr6415 [address] [place] FREE T3on 01-02-2018 T3 free mass conc 2.98 pg/mL Normal 2.77-5.27 [facility] Comment on above: Performed By: #### B MP, LIVER, FT3, LIPID, PSASC, TSH, DLDL ####[facility] Tfdzqonjgh5947 [address] [place] FREE T4on 01-02-2018 T4 free mass conc 0.89 ng/dL Normal 0.78-2.19 [facility] Comment on above: Performed By: #### B MP, LIVER, FT3, LIPID, PSASC, TSH, DLDL ####[facility] Favulmfwfh4826 [address] [place] TSHon 01-02-2018 Thyrotropin Qn 5.999 uIU/mL Critically high 0.470-4.680 [facility] Comment on above: Performed By: #### B MP, LIVER, FT3, LIPID, PSASC, TSH, DLDL ####[facility] [address] [place] [address] [place] Thyrotropin Qn SEE BELOW Normal [facility] Comment on above: Result Comment: <0.3 4 UIU/ml HYPERTHYROID 0.34-5.60 UIU/ml EUTHYROID >5.60 UIU/ml HYPOTHYROID Performed By: #### B MP, LIVER, FT3, LIPID, PSASC, TSH, DLDL ####[facility] Chsxperayk1225 [address] [place] CBC AUTO DIFFon 09-14-2017 Basophils Auto #/vol (Bld) 0.1 103/ul Normal 0.0-0.1 [facility] Comment on above: Performed By: #### C BC ####[facility] [address] [place] [address] [place] Basophils/100 WBC Auto (Bld) 0.8 % Normal 0.2-2.0 [facility] Comment on above: Performed By: #### C BC ####[facility] [address] [place] [address] [place] Eosinophils Auto #/vol (Bld) 0.1 103/ul Normal 0.0-0.7 [facility] Comment on above: Performed By: #### C BC ####[facility] [address] [place], [place] [address]Gczeqh [place] Eosinophils/100 WBC Auto (Bld) 1.4 % Normal 0.9-7.0 [facility] Comment on above: Performed By: #### C BC ####[facility] [address] [place], [place] [id number] Erythrocyte distribution width Auto Ratio (RBC) 13.2 % Normal 11.0-15.0 [facility] Comment on above: Performed By: #### C BC ####[facility] [address] [place], [place] [id number] [place] Hematocrit Auto Volume Fraction (Bld) 43.7 % Normal 42.0-54.0 [facility] Comment on above: Performed By: #### C BC ####[facility] [address] [place], [place] [id number] Hemoglobin mass conc (Bld) 15.2 g/dL Normal 14.0-18.0 [facility] Comment on above: Performed By: #### C BC ####[facility] [address] [place], [place] [id number] IG # 0.05 10e3/ul Critically high 0.00-0.03 [facility] Comment on above: Performed By: #### C BC ####[facility] [address] [place] [address] [place] IG % 0.7 % Critically high 0.0-0.5 [facility] Comment on above: Performed By: #### C BC ####[facility] [address] [place], [place] [id number] Lymphocytes Auto #/vol (Bld) 1.7 103/ul Normal 1.2-3.8 [facility] Comment on above: Performed By: #### C BC ####[facility] [address] [place], [place] [id number] Lymphocytes/100 WBC Auto (Bld) 23.7 % Normal 20.5-60.0 [facility] Comment on above: Performed By: #### C BC ####[facility] [address] [place] [id number] MANUAL DIFF REQ NO Normal [facility] Comment on above: Performed By: #### C BC ####[facility] [address] [place] [address]Apptib [place] MCH Auto Entitic mass (RBC) 33.8 pg Normal 25.9-34.0 [facility] Comment on above: Performed By: #### C BC ####[facility] [address] [place], [place] [id number] MCHC Auto mass conc (RBC) 34.8 g/dL Normal 29.9-35.2 [facility] Comment on above: Performed By: #### C BC ####[facility] [address] [place], [place] [id number] MCV Auto Entitic volume (RBC) 97.1 fL Critically high 80.0-94.0 [facility] Comment on above: Performed By: #### C BC ####[facility] [address]pq[address] [place], [place] [id number] Monocytes Auto #/vol (Bld) 0.5 103/ul Normal 0.3-0.8 [facility] Comment on above: Performed By: #### C BC ####[facility] [address] [place], [place] [id number] Monocytes/100 WBC Auto (Bld) 7.0 % Normal 1.7-12.0 [facility] Comment on above: Performed By: #### C BC ####[facility] X[address]qu[address] [place], [place] [id number] Neutrophils Auto #/vol (Bld) 4.7 103/ul Normal 1.4-6.5 [facility] Comment on above: Performed By: #### C BC ####[facility] [address] [place], [place] [id number] Neutrophils/100 WBC Auto (Bld) 66.4 % Normal 43.0-75.0 [facility] Comment on above: Performed By: #### C BC ####[facility] [address] [place] [id number] [place]res Platelet mean volume Auto Entitic volume (Bld) 10.7 fL Normal 9.5-13.5 [facility] Comment on above: Performed By: #### C BC ####[facility] V[address]edsp[address]xa35[address] [place] [id number] Platelets Auto #/vol (Bld) 223 103/ul Normal 150-450 [facility] Comment on above: Performed By: #### C BC ####[facility] Xctsvjkspp7674 [address] [place] RBC Auto #/vol (Bld) 4.50 106/ul Critically low 4.70-6.10 [facility] Comment on above: Performed By: #### C BC ####[facility] [address] [place] [address] [place] WBC Auto #/vol (Bld) 7.1 103/ul Normal 4.0-11.0 [facility] Comment on above: Performed By: #### C BC ####[facility] [address] [place] [id number] DIRECT LDLon 09-14-2017 Cholesterol in LDL mass conc SEE BELOW Normal [facility] Comment on above: Result Comment: <100 mg/dl OPTIMAL 100 - 129 mg/dl NEAR OR ABOVE OPTIMAL 130 - 159 mg/dl BORDERLINE HIGH 160 - 189 mg/dl HIGH >190 mg/dl VERY HIGH Performed By: #### B MP, LIVER, FT3, LIPID, PSASC, TSH, DLDL ####[facility] [address] [place], [place] [address]Zfsjhu [place] Cholesterol in LDL mass conc 45 mg/dL Normal [facility] Comment on above: Performed By: #### B MP, LIVER, FT3, LIPID, PSASC, TSH, DLDL ####[facility] Zhpmopktcm0507 [place], [place] [address]Xncwii [place] FREE T3on 09-14-2017 T3 free mass conc 4.33 pg/mL Normal 2.77-5.27 [facility] Comment on above: Performed By: #### B MP, LIVER, FT3, LIPID, PSASC, TSH, DLDL ####[facility] Ytwjhjqmar5748 [place] [id number] FREE T4on 09-14-2017 T4 free mass conc 0.67 ng/dL Critically low 0.78-2.19 [facility] Comment on above: Performed By: #### F T4 ####[facility] Rsparbemfh8338 [address] [place] GLYCOHEMOGLOBIN A1Con 2017 Glucose mass conc 108 mg/dL Normal [facility] Comment on above: Performed By: #### A 1C ####[facility] [address] [place] [address] [place] Hemoglobin A1c/Hemoglobin.tota l mass fraction (Bld) 5.4 % Normal <=6.0 [facility] Comment on above: Performed By: #### A 1C ####[facility] [address] [place] [address] [place] LIPID PROFILEon 09-14-2017 CHOL-HDL RATIO NORM SEE BELOW Normal [facility] Comment on above: Result Comment: 3.3 - 4.4 LOW RISK 4.4 - 7.1 AVERAGE RISK 7.1 - 11.0 MODERATE RISK >11.0 HIGH RISK Performed By: #### B MP, LIVER, FT3, LIPID, PSASC, TSH, DLDL ####[facility] P[address]aw8[address] [place] [id number] Cholesterol in HDL mass conc 34 mg/dL Normal [facility] Comment on above: Result Comment: A po sitive bias may be seen with a triglyceride level over 600 mg/dL Performed By: #### B MP, LIVER, FT3, LIPID, PSASC, TSH, DLDL ####[facility] E[address] [place] [id number] Cholesterol in HDL mass conc > or = 60 mg/dl - LOW CARDIOVASCULAR RISK <40 mg/dl - HIGH CARDIOVASCULAR RISK Normal [facility] Comment on above: Performed By: #### B MP, LIVER, FT3, LIPID, PSASC, TSH, DLDL ####[facility] Jvqfjlzhmv[address]37 [address] [place] Cholesterol mass conc 199 mg/dL Normal <=200 [facility] Comment on above: Performed By: #### B MP, LIVER, FT3, LIPID, PSASC, TSH, DLDL ####[facility] Cmdnywfeau6[address] [place] Cholesterol.total/C holesterol in HDL mass ratio 6.0 {ratio} Normal [facility] Comment on above: Performed By: #### B MP, LIVER, FT3, LIPID, PSASC, TSH, DLDL ####[facility] Ibjhovqkoi1221 [address] [place] Triglyceride mass conc 1177 mg/dL Critically high <=150 [facility] Comment on above: Performed By: #### B MP, LIVER, FT3, LIPID, PSASC, TSH, DLDL ####[facility] Solosyiopa8929 [address] [place] LIVER PROFILEon 09-14-2017 Albumin mass conc 4.6 g/dL Normal 3.5-5.0 [facility] Comment on above: Performed By: #### B MP, LIVER, FT3, LIPID, PSASC, TSH, DLDL ####[facility] Xdjpinwkln7226 [address] [place] Albumin/Globulin mass ratio 1.5 {ratio} Normal [facility] Comment on above: Performed By: #### B MP, LIVER, FT3, LIPID, PSASC, TSH, DLDL ####[facility] Neaaerkkte7118 [address] [place] ALP enzyme act/vol 66 U/L Normal 38-126 [facility] Comment on above: Performed By: #### B MP, LIVER, FT3, LIPID, PSASC, TSH, DLDL ####[facility] J[address]xhor[address]wi[address] [place] [id number] ALT enzyme act/vol 66 U/L Normal 21-72 [facility] Comment on above: Performed By: #### B MP, LIVER, FT3, LIPID, PSASC, TSH, DLDL ####[facility] Ztsxiuwmet0275 [address] [place] AST enzyme act/vol 48 U/L Normal 17-59 [facility] Comment on above: Performed By: #### B MP, LIVER, FT3, LIPID, PSASC, TSH, DLDL ####[facility] Tudfpqujqe9397 [address] [place] BILI, CONJUGATED 0.0 mg/dL Normal 0.0-0.3 [facility] Comment on above: Performed By: #### B MP, LIVER, FT3, LIPID, PSASC, TSH, DLDL ####[facility] Ayzrsxolkj8094 [address] [place] Bilirubin Ql (U) 0.3 mg/dL Normal 0.2-1.3 [facility] Comment on above: Performed By: #### B MP, LIVER, FT3, LIPID, PSASC, TSH, DLDL ####[facility] Uuphhzanjv8839 [address] [place] Globulin Calculated mass conc (S) 3.1 g/dL Normal [facility] Comment on above: Performed By: #### B MP, LIVER, FT3, LIPID, PSASC, TSH, DLDL ####[facility] Vlrfturvfa3730 [address] [place] Protein mass conc 7.7 g/dL Normal 6.1-8.2 [facility] Comment on above: Performed By: #### B MP, LIVER, FT3, LIPID, PSASC, TSH, DLDL ####[facility] Cuuafgjmbz8188 [address] [place] PROF CHEM 8 (BAS METB)on Anion gap 3 molar conc 10.0 mmol/L Normal [facility] Comment on above: Performed By: #### B MP, LIVER, FT3, LIPID, PSASC, TSH, DLDL ####[facility] Czomzmnanv0058 [address] [place] Calcium mass conc 9.6 mg/dL Normal 8.4-10.2 [facility] Comment on above: Performed By: #### B MP, LIVER, FT3, LIPID, PSASC, TSH, DLDL ####[facility] Rojwzujmkq0676 [address] [place] Chloride molar conc 104 mmol/L Normal 98-107 [facility] Comment on above: Performed By: #### B MP, LIVER, FT3, LIPID, PSASC, TSH, DLDL ####[facility] Kypdlnqiep2773 [address] [place] CO2 molar conc 25.0 mmol/L Normal 22.0-30.0 [facility] Comment on above: Performed By: #### B MP, LIVER, FT3, LIPID, PSASC, TSH, DLDL ####[facility] Uvelrfrlri3677 [address] [place] Creatinine mass conc 0.96 mg/dL Normal 0.66-1.25 [facility] Comment on above: Performed By: #### B MP, LIVER, FT3, LIPID, PSASC, TSH, DLDL ####[facility] Mivaaasaeq1514 [address] [place] EGFR-AF FIJIAN >60 Normal >=60 [facility] Comment on above: Performed By: #### B MP, LIVER, FT3, LIPID, PSASC, TSH, DLDL ####[facility] Fkkiqczrwf3044 [address] [place] EGFR-NON AF FIJIAN >60 Normal >=60 [facility] Comment on above: Performed By: #### B MP, LIVER, FT3, LIPID, PSASC, TSH, DLDL ####[facility] Gajigjxpxz3126 [address] [place] Glucose mass conc 97 mg/dL Normal 74-106 [facility] Comment on above: Performed By: #### B MP, LIVER, FT3, LIPID, PSASC, TSH, DLDL ####[facility] Mkplplhciu1323 [address] [place] Potassium molar conc 4.2 mmol/L Normal 3.4-5.0 [facility] Comment on above: Performed By: #### B MP, LIVER, FT3, LIPID, PSASC, TSH, DLDL ####[facility] Kcfajkzgvl8720 [address] [place] Sodium molar conc 135 mmol/L Critically low 137-145 [facility] Comment on above: Performed By: #### B MP, LIVER, FT3, LIPID, PSASC, TSH, DLDL ####[facility] Bhhyvstgge2924 [address] [place] Urea nitrogen mass conc 14.0 mg/dL Normal 9.0-20.0 [facility] Comment on above: Performed By: #### B MP, LIVER, FT3, LIPID, PSASC, TSH, DLDL ####[facility] Vplprsdvql1220 [address] [place] Urea nitrogen/Creatinine mass ratio 14.8 mg/mg Normal [facility] Comment on above: Performed By: #### B MP, LIVER, FT3, LIPID, PSASC, TSH, DLDL ####[facility] Brkdaybwfi9896 [address] [place] TSHon 09-14-2017 Thyrotropin Qn SEE BELOW Normal [facility] Comment on above: Result Comment: <0.3 4 UIU/ml HYPERTHYROID 0.34-5.60 UIU/ml EUTHYROID >5.60 UIU/ml HYPOTHYROID Performed By: #### B MP, LIVER, FT3, LIPID, PSASC, TSH, DLDL ####[facility] Znthkscbra5945 [address] [place] Thyrotropin Qn 6.140 uIU/mL Critically high 0.470-4.680 Th e [facility] Comment on above: Performed By: #### B MP, LIVER, FT3, LIPID, PSASC, TSH, DLDL ####[facility] Enhboolmfk2004 [address] [place] Vital Signs Date Time Vital Sign Value Performing Clinician Maicol kumari 05-21-2024 09:10-0500 Diastolic blood pressure 80 mm[Hg] Claudio Sarmini [facility] 05-21-2024 09:10-0500 Heart rate 66 /min Claudio Sarmini [facility] 05-21-2024 09:10-0500 Systolic blood pressure 138 mm[Hg] Claudio Sarmini [facility] 05-21-2024 09:08-0500 Blood Pressure Location Claudio Sarmini [facility] 05-21-2024 09:08-0500 Respiratory rate 14 /min Claudio Sarmini [facility] 05-17-2024 08:22-0500 Body height 165.1 cm Christopher Jasmin DO Work Phone: [facility] 05-17-2024 08:22-0500 Body mass index (BMI) [Ratio] 39.61 kg/m2 Christopher Jasmin DO Work Phone: [facility] 05-17-2024 08:22-0500 Body weight 107.96 kg Christopher Jasmin DO Work Phone: [facility] 05-17-2024 08:22-0500 Diastolic blood pressure 88 mm[Hg] Christopher Jasmin DO Work Phone: [facility] 05-17-2024 08:22-0500 Heart rate 74 /min Christopher Jasmin DO Work Phone: [facility] 05-17-2024 08:22-0500 Systolic blood pressure 138 mm[Hg] Christopher Jasmin DO Work Phone: [facility] 05-11-2024 09:40-0500 Diastolic blood pressure 77 mm[Hg] Alejandra Hayden [facility] 05-11-2024 09:40-0500 Heart rate 61 /min Mohamad Mouchli [facility] 05-11-2024 09:40-0500 Respiratory rate 13 /min Mohamad Mouchli [facility] 05-11-2024 09:40-0500 SaO2% (BldA) [Mass fraction] 94 % Mohamad Mouchli [facility] 05-11-2024 09:40-0500 Systolic blood pressure 140 mm[Hg] Mohamad Mouchli [facility] 05-11-2024 09:20-0500 Diastolic blood pressure 83 mm[Hg] Mohamad Mouchli [facility] 05-11-2024 09:20-0500 Heart rate 89 /min Mohamad Mouchli [facility] 05-11-2024 09:20-0500 Respiratory rate 22 /min Mohamad Mouchli [facility] 05-11-2024 09:20-0500 SaO2% (BldA) [Mass fraction] 94 % Mohamad Mouchli [facility] 05-11-2024 09:20-0500 Systolic blood pressure 145 mm[Hg] Mohamad Mouchli [facility] 05-11-2024 09:15-0500 Diastolic blood pressure 79 mm[Hg] Mohamad Mouchli [facility] 05-11-2024 09:15-0500 Heart rate 90 /min Mohamad Mouchli [facility] 05-11-2024 09:15-0500 Respiratory rate 13 /min Mohamad Mouchli [facility] 05-11-2024 09:15-0500 SaO2% (BldA) [Mass fraction] 98 % Mohamad Mouchli [facility] 05-11-2024 09:15-0500 Systolic blood pressure 126 mm[Hg] Mohamad Mouchli [facility] 05-11-2024 09:10-0500 Body temperature 98.42 [degF] Mohamad Mouchli [facility] 05-11-2024 09:05-0500 Respiratory rate 14 /min Mohamad Mouchli [facility] 05-11-2024 08:55-0500 Respiratory rate 22 /min Mohamad Mouchli [facility] 05-11-2024 07:28-0500 Blood Pressure Location Mohamad Mouchli [facility] 05-11-2024 07:28-0500 Body temperature 97.88 [degF] Mohamad Mouchli [facility] 05-07-2024 09:34-0500 Diastolic blood pressure 82 mm[Hg] Ji SIMON [facility] 05-07-2024 09:34-0500 Mean blood pressure 109 mm[Hg] Ji SIMON [facility] 05-07-2024 09:34-0500 Systolic blood pressure 164 mm[Hg] Ji SIMON [facility] 05-07-2024 09:11-0500 Diastolic blood pressure 86 mm[Hg] Ji SIMON [facility] 05-07-2024 09:11-0500 Heart rate 74 /min Ji SIMON [facility] 05-07-2024 09:11-0500 Respiratory rate 16 /min Ji SIMON [facility] 05-07-2024 09:11-0500 Systolic blood pressure 168 mm[Hg] Ji SIMON [facility] 04-24-2024 08:57-0500 Blood Pressure Location CallRestomariya [facility] 04-24-2024 08:57-0500 Diastolic blood pressure 80 mm[Hg] CallRestomariya [facility] 04-24-2024 08:57-0500 Heart rate 71 /min TeenaEdustation.memariya Nimbuzzkarmen [facility] 04-24-2024 08:57-0500 Systolic blood pressure 125 mm[Hg] CallRestod [facility] Encounters Encounter Date Encounter Type Care Provider Facility Start: 12-24-2024 End: 12-24-2024 ambulatory Ji SIMON Facility:[facility] Start: 12-24-2024 End: 12-24-2024 ambulatory Ji SIMON Facility:[facility] Start: 12-24-2024 End: 12-24-2024 Patient encounter procedure Ji SIMON [facility] Start: 12-11-2024 End: 12-11-2024 ambulatory Ji SIMON Facility:[facility] Start: 12-11-2024 End: 12-11-2024 Patient encounter procedure Ji SIMON [facility] Start: 11-30-2024 End: 11-30-2024 ambulatory Jorge L Nba Iniguez Facility:[facility] Start: 11-12-2024 End: 11-12-2024 ambulatory Ji SIMON Facility:[facility] Start: 11-12-2024 End: 11-12-2024 Patient encounter procedure Ji SIMON [facility] Start: 10-15-2024 End: 10-15-2024 ambulatory Ji SIMON Facility:[facility] Start: 10-15-2024 End: 10-15-2024 Patient encounter procedure Jivianney SIMON [facility] [place] Start: 09-14-2024 End: 09-14-2024 ambulatory Ji SIMON Facility:[facility] Start: 09-14-2024 End: 09-14-2024 Patient encounter procedure [facility] SIMON [facility] Start: 09-10-2024 End: 09-10-2024 ambulatory Ji SIMON Facility:[facility] Start: 09-10-2024 End: 09-10-2024 Patient encounter procedure Ji SIMON [facility] Start: 08-16-2024 End: 08-16-2024 ambulatory Claudio Talal Sarmini Facility:[facility] Start: 07-17-2024 End: 07-17-2024 ambulatory Claudio Talal Sarmini Facility:[facility] Start: 05-25-2024 End: 05-25-2024 Bamboo flowsheet Jazlyn Wilburn Work Phone: [facility] Start: 05-25-2024 [...] 05-21-2024 End: 05-21-2024 ambulatory Claudio Talal Sarmini Facility:[facility] Start: 05-21-2024 End: 05-21-2024 Patient encounter procedure [facility] Sarmini [facility] Start: 05-18-2024 End: 05-18-2024 ambulatory Jazlyn Wilburn OT Work Phone: [facility] Comment on above: Joint stiffness of h and, right (Primary Dx); Swelling of right hand Start: 05-17-2024 End: 05-17-2024 Bamboo flowsheet Sandra Castellanos DO Work Phone: [facility] Start: 05-17-2024 End: 05-17-2024 Bamboo flowsheet Sandra Castellanos DO Work Phone: [facility] Start: 05-17-2024 End: 05-17-2024 ambulatory SANDRA CASTELLANOS [...] End: 05-11-2024 Patient encounter procedure Alejandra Hayden [facility] Start: 05-07-2024 End: 05-07-2024 ambulatory Alejandra Hayden Facility:[facility] Start: 05-07-2024 End: 05-07-2024 Patient encounter procedure Ji SIMON [facility] Start: 04-27-2024 ambulatory Alejandra Hayden Facilit y:[facility] Start: 04-26-2024 End: 04-26-2024 ambulatory Alejandra Hayden Facility:[facility] Start: 04-26-2024 End: 04-26-2024 Patient encounter procedure Alejandra Hayden [facility] Start: 04-25-2024 End: 04-25-2024 ambulatory Alejandra Hayden Facility:[facility] Start: 04-25-2024 End: 04-25-2024 Lab Drop off Alejandra Hayden [facility] Start: 04-24-2024 End: 04-24-2024 ambulatory Alejandra Hayden Facility:[facility] Start: 04-24-2024 End: 04-24-2024 Patient encounter procedure Alejandra Hayden [facility] Start: 04-24-2024 End: 04-24-2024 ambulatory Alejandra Hayden Facility:[facility] Start: 04-24-2024 End: 04-24-2024 Patient encounter procedure Alejandra Hayden [facility] Start: 04-18-2024 ambulatory [facility] Start: 03-15-2018 End: 03-16-2018 Patient encounter procedure LUIS ANTONIO A NADERER Facility:[facility] Start: 01-02-2018 End: 01-03-2018 Patient encounter procedure LUIS ANTONIO A NADERER Facility:[facility] Start: 10-26-2017 End: 10-27-2017 Patient encounter procedure LUIS ANTONIO A NADERER Facility:[facility] Start: 09-27-2017 End: 09-28-2017 Patient encounter procedure LUIS ANTONIO A NADERER Facility:[facility] Start: 09-15-2017 Encounter for genera l adult medical examination without abnormal findings [facility] Start: 09-14-2017 End: 09-15-2017 Patient encounter procedure LUIS ANTONIO A NADERER Facility:[facility] Encounter for genera l adult medical examination without abnormal findings [facility] Procedures Date Procedure Procedure Detail Performing Clinician Start: 05-11-2024 Colonoscopy Alejandra Hayden Comment on above: colon polyps x2, diverticulosis, Ih Start: 05-11-2024 Esophagogastroduodenoscopy Alejandra huynh Comment on above: esophagitis, gastritis, clean based ulce rs, biopsies for celiac disease Start: 09-14-2017 PSA screening LUIS ANTONIO HERNANDEZ Comment on above: Performed By: #### BMP, LIVER, FT3, LIPI D, PSASC, TSH, DLDL ####[facility] [address] [place], [place] [address]YxuiniArpit Colindres Plan of Treatment Date Care Activity Detail Author Start: 01-07-2025 ambulatory Ambulatory Facility:[facility] Start: 11-19-2024 End: 11-19-2024 Patient encounter procedure 11/19/2024 8:20 AM EDT Office Visit [facility] [address] [place] [address] Sofie Weller NP [address] [place] [id number] [facility] Start: 05-25-2024 End: 05-25-2024 ambulatory 05/25/2024 8:00 AM EST Treatment [facility] [address] [place] [address] Jazlyn Wilburn, OT [address] [place] [address] [facility] Start: 05-22-2024 End: 05-22-2024 ambulatory 05/22/2024 8:00 AM EST Treatment [facility] [address] [place] [address] Jazlyn Wilburn, OT [address] [place] [address] [facility] Start: 05-18-2024 End: 05-18-2024 ambulatory 05/18/2024 8:00 AM EST Treatment [facility] [address] [place] [address] Jazlyn Wilburn, OT [address] [place] [address] [facility] Start: 05-17-2024 End: 05-17-2024 Patient encounter procedure 05/17/2024 8:00 AM EST Office Visit [facility] [address] [place] [address] Sandar Castellanos [address] [place] [address] [facility] Start: 12-11-2023 Influenza vaccination Influenza Vacc ine (#1) [facility] Start: 1970 Screening for malign ant neoplasm of colon [facility] Immunizations Immunization Date Immunization Notes Care Provider Fa cility NEGATED: Highlighted row has not occurred!04-24-2024 influenza virus vaccine, unspecified formulation Alejandra Hayden [facility] Payers Date Payer Category Payer Private Health Insurance [id number] 2024 Medicaid (Managed Care) SANDOR MARINELLI [id number] 2024 Unknown [id number] 1970 Unknown [id number] 2.840.1.012841.3.579.2 .593 1970 Unknown [id number] .840.1.200913.3.579.2 .593 1970 Unknown [id number] 2.840.1.305251.3.579.2 .59 1970 Unknown [id number] 2.16.840.1.222850.3.579.2 .593 1970 Unknown [id number] 2.16.840.1.103699.3.579.2 .593 1970 Unknown [id number] 2.16.840.1.752110.3.579.2 .72 1970 Unknown [id number] 2.16.840.1.038125.3.579.2 .1970 Unknown [id number] 2.16.840.1.356666.3.579.2 .1970 Unknown [id number] 2.16.840.1.869587.3.579.2 .1258 1970 Unknown [id number] 2.16840.1.933415.3.579.2 .1258 1970 Unknown [id number] 2.16840.1.617174.3.579.2 .1258 1970 Unknown [id number] 2.16840.1.069950.3.579.2 .1258 1970 Unknown [id number] 2.16840.1.533920.3.579.2 .1258 1970 Unknown [id number] 2.16.840.1.624245.3.579.2 .1970 Unknown [id number] 2.16840.1.456664.3.579.2 .1970 Unknown [id number] 2.16.840.1.655311.3.579.2 .1970 Unknown [id number] 2.16.840.1.860477.3.579.2 .1970 Unknown [id number] 2.16.840.1.483814.3.579.2 .1970 Unknown [id number] 2.16.840.1.976058.3.579.2 .1970 Unknown [id number] 2.16.840.1.757887.3.579.2 .727 1970 Unknown [id number] 2.16.840.1.573168.3.579.2 .1970 Unknown [id number] 2.16.840.1.857461.3.579.2 .7 1970 Unknown [id number] 2.16.840.1.213638.3.579.2 .1970 Unknown [id number] 2.16.840.1.184674.3.579.2 .727 1970 Unknown [id number] 2.16.840.1.664340.3.579.2 .1970 Unknown [id number] 2.16.840.1.249091.3.579.2 .1970 Unknown [id number] 2.16.840.1.723503.3.579.2 .1970 Unknown [id number] 2.16.840.1.947470.3.579.2 .727 1959 Unknown [id number] Social History Date Type Detail Facility Start: 04-24-2024 End: 08-16-2024 Tobacco smoking status Never smoked tobacco (finding) [facility] Tobacco smoking status Smokeless tobacco user within last 30 days [facility] Start: 05-17-2024 Sex Assigned At [facility] smoking consumption unknown [facility] Start: 1970 Sex assigned at Not on file [facility] Start: 05-17-2024 Tobacco use and exposure User of smokeless tobacco [facility] History of tobacco use Chews Tobacco [facility] Start: 05-17-2024 Alcoholic beverage intake Current drinker of alcohol (finding) [facility] Start: 05-17-2024 History of Social function [facility] Sexual Orientation [facility] [employer] Sex Male (finding) [facility] Functional Status Date Assessment Result Facility 05-21-2024 Functional Status N/A [facility] 05-11-2024 Functional Status N/A [facility] 05-07-2024 Functional Status N/A [facility] 04-24-2024 Functional Status N/A [facility] Clinical Notes 05-07-2024 to 09-10-2024 Jazlyn Wilburn, OT - 05/25/2024 8:00 AM Mihir Wilburn, OT - 05/22/2024 8:00 AM Mihir Wilburn, OT - 05/18/2024 8:00 AM ESTChriswilliam Castellanos, [...] therapy. Follow these instructions at home: Take urhn-xrq-qpecwxv and prescription medicines only as told by [...] provider. Document Revised: 11/27/2020 Document Reviewed: 11/27/2020 [employer] Patient Education 2023 MaPS. Follow Up Care 05/07/2024 09:57:31 With:AURORA ROMERO, Ji Be, URL Address: [facility] [address] [place] [phone] When: Unknown Comments:4 mos w/ T level [facility] 09-10-2024 Note Patient Education Urology Hypogonadism, Male [...] Follow these instructions at home: ??? Take lbiy-bzm-xixfzkn and prescription medicines only as told by [...] you discuss any (more content not included)... [facility] 05-25-2024 History of Present illness [...] all planes 1x15 with fair toleration. Composite site damage prevention technician holds x2 minutes. Contract release exercsies 1x15. [...] speaking with doctor. documented in this encounter [facility] 05-22-2024 History of Present illness [...] all planes 1x15 with fair toleration. Composite site damage prevention technician holds x2 minutes. Contract release exercsies 1x15. [...] pain at discharge documented in this encounter [facility] 05-18-2024 History of Present illness [...] all planes 1x15 with fair toleration. Composite site damage prevention technician holds x2 minutes. Contract release exercsies 1x15. [...] pain at discharge documented in this encounter [facility] 05-17-2024 History of Present illness [...] machine. He did have recent MRI at [facility]. He has never tried any medications [...] , wrist extensors , wrist flexor , site damage prevention technician strength 5/5. LUE Strength deltoid , biceps , triceps , wrist extensors , wrist flexor , site damage prevention technician strength 5/5. RLE Strength illopsoas, quadriceps, tibialis [...] reflex 2+ . Huerta's sign negative. Coordination: Ubohls-dj-pbqx testing and rapid alternating movements are normal [...] and return instructions documented in this encounter [facility] 05-15-2024 History of Present illness [...] hand. 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 Works in [employer]. Precautions: none Objective PRWHE Pain Score: [...] composite fist. Strength Strength additional comments: R site damage prevention technician strength: 35# compared to L site damage prevention technician strength: 115# Special Tests Special tests additional [...] for light strengthening and ROM at discharge. Snf Goals: PRWHE Pain Score < 20/ 50 ( IE:39/50 ) PRWHE Functional Score <25/100 (IE: 68/100) Reduce R hand edema by at least 5 cm in order to reduce pain and improve ROM at discharge. Pt to increase site damage prevention technician strength by 10# and LP by 2# pain free at discharge. Pt will be able to use right UE in light daily activities. Pt will benefit from skilled OT to address the above impairments for 2x/week for 4-6 weeks. I hereby deem this POC medically necessary. Please sign below. Date: . documented in this encounter [facility] 05-11-2024 Evaluation + Plan note Extrac deb from: Title:ANEHeena Post-operative Note---General Author: Cody Tay MD Date:05/11/24 Plan Transfer/Discharge: Transfer/Discharge Discharge when meets criteria ( To home ). Extracted from: Title:1Preop H&P Author:González Sutton MD Date:05/11/24 Impression and Plan Impression: change in bowel habits Plan: -EGD and Colonoscopy Extracted from: Title:RENA Pre-operative Note 2022 Author:Cody Chávez Date:05/11/24 Plan [place] Society of Anesthesiologists (ASA) physical status classification: Class II. Anesthetic Preoperative Plan: Anesthesia General. Future Appointments Appointment Date:05/21/2024 09:00:00 AM Scheduled Provider:González Sutton MD Location:[facility] Appointment Type:BADH Follow Up Appointment Date:09/07/2024 09:45:00 AM Scheduled Provider:Ji SIMON MD Location:[facility] Appointment Type:URO Office Visit [facility] 01-31-2025 Hospital Discharge instructions Patient [...] help quitting, ask your health careprovider. Take hqxf-aif-vogbhjz and prescription medicines only as told by your health care provider. ?Do not use gjwy-ycb-avtduwx medicines in place of prescription medicines unless [...] help quitting, ask your health careprovider. Take wlhm-auj-rvmuwci and prescription medicines only as told by your health care provider. Do not use kftj-zux-nynbgot medicines in place of prescription medicines unless your health care provider approves. Limit your alcohol and caffeine intake. Keep all follow-up visits. This is important. This information is not intended to replace advice given to you by your health care provider. Make sure you discuss any questions you have with your health care provider. Document Revised: 11/06/2021 Document Reviewed: 11/06/2021 [employer] Patient Education 2023 MaPS. 05/11/2024 09:43:40 Colonoscopy, Care After Surgery Salam [...] unsweetened, w/added ascorbic acid 1 cup 0.5 [place] 1 cup 0.7 Vegetables Cooked Green beans 1 cup 4.0 Carrots 1/2 cup sliced 2.3 Peas 1 cup 8.8 Potato (baked, with skin) 1 medium potato 3.8 Raw [place] (with peel) 1 cucumber 1.5 Lettuce 1 [...] 8.7 Peanuts 1/2 cup 7.9 Chart from [facility] 2013. SEEK IMMEDIATE MEDICAL CARE [...] Reference. Available at http://www.nal.usda.gov/fnic/foodcomp/search/. Information adapted from: [employer] Patient Information 2009 [place]. [employer] 2012 http://www.nkf-pharma/contents/svgtdibbdmlx-nuagmbd-viliyo-the-basics 05/11/2024 09:43:38 Colon Polyps Colon Polyps Colon [...] conditions), such as: ?Familial adenomatous polyposis (FAP). ?Ranegl syndrome. ?Turcot syndrome. ?Peutz Jeghers syndrome. ?MUTYH-associated [...] hard liquor (44 mL). General instructions Take cgiz-khm-jjhujmf and prescription medicines only as told by [...] provider. Document Revised: 07/16/2020 Document Reviewed: 07/16/2020 [employer] Patient Education 2023 MaPS. 05/11/2024 09:27:02 Gluten-Free Diet for Celiac Disease, [...] how a food is processed, ask the transitional studies instructor. What foods can I eat? Fruits All [...] cereals made from cornmeal or GF grains. [place], rice, and wild rice. Some rice noodles or dick noodles. Arrowroot starch, corn bran, corn flour, corn germ, cornmeal, corn starch, potato flour, potato starch flour, and rice bran. Plain, brown, and sweet rice flours. Rice tajik, soy flour, and tapioca starch. Meats and [...] or meat loaves. Bread-containing products, such as Mexican steak, croquettes, meatballs, and meatloaf. Most tuna canned in vegetable broth. Eckert with hydrolyzed vegetable protein (HVP) injected as [...] provider. Document Revised: 02/16/2022 Document Reviewed: 02/16/2022 [employer] Patient Education 2023 MaPS. 05/11/2024 09:26:16 Upper Endoscopy, Adult, Care After [...] what activities are safe for you. Take kbyg-cnc-jhdqnru and prescription medicines only as told by [...] provider. Document Revised: 07/07/2022 Document Reviewed: 07/07/2022 [employer] Patient Education 2023 MaPS. 05/11/2024 09:26:10 Esophagitis Esophagitis Esophagitis is inflammation [...] Follow these instructions at home: Medicines Take haul-zya-edvwqle and prescription medicines only as told by [...] powder, vinegar, hot sauces, and barbecue sauce. ?[place] fruit juices and citrus fruits, such as oranges, ronald, and limes. ?Tomato-based foods, such as red sauce, chili, salsa, and pizza with red sauce. ?Fried and fatty foods, such as donuts, urdu fries, potato chips, and high-fat dressings. ?High-fat [...] provider. Document Revised: 10/06/2020 Document Reviewed: 10/06/2020 [employer] Patient Education 2023 MaPS. 05/11/2024 09:25:57 Celiac Disease Celiac Disease Celiac [...] provider. Document Revised: 02/16/2022 Document Reviewed: 02/16/2022 [employer] Patient Education 2023 MaPS. 05/11/2024 09:25:22 Gastritis, Adult Gastritis, Adult Gastritis [...] medicines. These include steroids, antibiotics, and some pnrw-yyq-iplpxjk medicines, such as aspirin or ibuprofen. Having [...] Follow these instructions at home: Medicines Take qkza-ntr-gacrnzl and prescription medicines only as told by [...] provider. Document Revised: 08/01/2021 Document Reviewed: 08/01/2021 [employer] Patient Education 2023 MaPS. [facility] 01-31-2025 NotePatient Education - Text Colonoscopy Care After Surgery Please read the instructions outlined below and refer to this sheet in the next few weeks. These discharge instructions provide you with general information on caring [facility] Your doctor may also give you [...] unsweetened, w/added ascorbic acid 1 cup 0.5 [place] 1 cup 0.7 Vegetables Cooked Green beans 1 cup 4.0 Carrots 1/2 cup sliced 2.3 Peas 1 cup 8.8 Potato (baked, with skin) 1 medium potato 3.8 Raw [place] (with peel) 1 cucumber 1.5 Lettuce 1 [...] 8.7 Peanuts 1/2 cup 7.9 [facility] (more content not included)...[facility] 05-11-2024 NoteProgress Note-Physician Patient: TATE ENCARNACION Age: 53 years Sex: Male : 1970 Associated Diagnoses: None Author: Jasvir ROMERO, Cody Alvarez Postoperative Information Postoperative disposition: Postoperative disposition: To PACU. Optimetrix number: Optimetrix number [id number]. Anesthetic utilized: General. Health Status Allergies: Allergic [...] Discharge when meets criteria ( To home ).[facility]Result Comment: Electronically Signed By: Jasvir ROMERO, Cody Shine.br\Date and Time Signed: 05/11/24 09:38 EST 05-11-2024 [...] out celiac disease Images Procedure images: Rec_hd_video___[id number].jpg Rec_hd_video___[id number].jpg Rec_hd_video___[id number].jpg Rec_hd_video___[id number].jpg Rec_hd_video__[id number].jpg Rec1_hd_video__[id number].jpg Rec_hd_video__[id number].jpg Rec1_hd_video__[id number].jpg Rec1_hd_video__[id number].jpg . Post-Procedure Complications: none. [...] EGD in 3 months [facility] Comment on above:Result Comment: Electronically Signed By: Lesley ROMERO, González Cadena\.br\Date and Time Signed: 05/11/24 09:09 ESTOther Comment: Missing Attachment - attachment storage system not supported [id number] Can be viewed in source systemMissing Attachment - attachment storage system not supported [id number] Can be viewed [facility] systemMissing Attachment - attachment storage system not supported [id number] Can be viewed in source systemMissing Attachment - attachment storage system not supported [id number] Can be viewed in source systemMissing Attachment - attachment storage system not supported [id number] Can be viewed in source systemMissing Attachment - attachment storage system not supported [id number] Can be viewed in source systemMissing Attachment - attachment storage system not supported [id number] Can be viewed in source systemMissing Attachment - attachment storage system not supported [id number] Can be viewed in source systemMissing Attachment - attachment storage system not supported [id number] Can be viewed in [id number] NoteEndoscopic Procedure Report - Other Patient: TATE [...] qAM, # 75 gram, Refills(s) 3, Pharmacy: [facility], 165, cm, 05/07/24 9:19:00 EST, Height/Length Dosing, 108.1, kg, 05/07/24 9:19:00 EST, Weight Dosing Questran 4 g/9 g oral powder: = 1 packet(s), Oral, BID, # 60 EA, Refills(s) 0, Pharmacy: [facility], 170, cm, 04/24/24 8:57:00 EST, Height/Length Dosing, 108.6, kg, 04/24/24 8:57:00 EST, Weight Dosing Zenpep 60,000 units-189,600 units-252,600 units oral delayed release capsule: See Instructions, 300cap(s), Refill(s) 3, Take 2 caps with each meal and 1 with each snack, [facility], 170, cm, 04/24/24 8:57:00 EST, Height/Length Dosing, 108.6, kg, 04/24/24 8:57:00 EST, Weight Dosing tadalafil 20 mg Tab: 20 mg = 1 tab(s), Oral, As Directed, PRN for erectile dysfunction, Pt to take one tab 1 hour prior to sexual activity. Do not exceed 20mg in 24 hours., # 30 tab(s), Refills(s) 0,Pharmacy: [facility], 165, cm, 05/07/24 9:19:00 EST, Hei... [...] Normal examined terminal ileum Images Procedure images: Rec1_hd_video__[id number].jpg Rec1_hd_video__[id number]_12_[id number].jpg Rec1_hd_video__[id number]_11_15_[id number].jpg Rec1_hd_video_2024__T09_06_07_071.jpg Rec1_hd_video_2024__T09_06_04_714.jpg Rec1_hd_video__T09__57_[id number].jpg Rec1_hd_video__T09__44_461.jpg Rec1_hd_video____17_731.jpg . Post-Procedure Complications: none. Estimated blood [...] 5. Otherwise normal colo (more content not included)...[facility] CenterComment on above:Result Comment: Electronically Signed By: Lesley ROMERO, González Cadena\.br\Date and Time Signed: 05/11/24 09:07 ESTOther Comment: Missing Attachment - attachment storage system not supported [id number] Can be viewed in source systemMissing Attachment - attachment storage system not supported [id number] Can be viewed insource systemMissing Attachment - attachment storage system not supported [id number] Can be viewed in source systemMissing Attachment - attachment storage system not supported [id number] Can be viewed in so urce systemMissing Attachment - attachment storage system not supported [id number] Can be viewed in source systemMissing Attachment - attachment storage system not supported [id number] Can be viewed in source systemMissing Attachment - attachment storage system not supported [id number] Can be viewed in source systemMissing Attachment - attachment storage system not supported [id number] Can be viewed in source -[id number] NoteHistory and Physical Patient: ATTE ENCARNACION Age: 53 years Sex: Male : [...] qAM, # 75 gram, Refills(s) 3, Pharmacy: [facility], 165, cm, 05/07/24 9:19:00 EST, Height/Length Dosing, 108.1, kg, 05/07/24 9:19:00 EST, Weight Dosing Questran 4 g/9 g oral powder: = 1 packet(s), Oral, BID, # 60 EA, Refills(s) 0, Pharmacy: [facility], 170, cm, 04/24/24 8:57:00 EST, Height/Length Dosing, 108.6, kg, 04/24/24 8:57:00 EST, Weight Dosing Zenpep 60,000 units-189,600 units-252,600 units oral delayed release capsule: See Instructions, 300cap(s), Refill(s) 3, Take 2 caps with each meal and 1 with each snack, [facility], 170, cm, 04/24/24 8:57:00 EST, Height/Length Dosing, 108.6, kg, 04/24/24 8:57:00 EST, Weight Dosing tadalafil 20 mg Tab: 20 mg = 1 tab(s), Oral, As Directed, PRN for erectile dysfunction, Pt to take one tab 1 hour prior to sexual activity. Do not exceed 20mg in 24 hours., # 30 tab(s), Refills(s) 0,Pharmacy: [facility], 165, cm, 05/07/24 9:19:00 EST, Hei... [...] hypertension (high blood pressure) / SNOMED CT 09761227 / Confirmed Thyroid function tests abnormal / SNOMED CT 622268228 / Confirmed Anemia of chronic disorder (low iron) / SNOMED CT 884423636 / Confirmed Bloating / SNOMED CT 569114179 / Confirmed Black stool / SNOMED CT 166115700 / Confirmed Chronic GERD / SNOMED CT 484223565 / Confirmed Decreased sexual desire / SNOMED CT 713275470 / Confirmed Alcohol drinker / SNOMED CT 117842220 / Confirmed Stress-related physiological response affecting medical condition / SNOMED CT 46687529 / Confirmed High triglycerides / SNOMED CT 643402766 / Confirmed Obesity due to excess calories / SNOMED CT 0749498268 / Confirmed ED (erectile dysfunction) / SNOMED CT 5077130594 / Confirmed Hypogonadism male / SNOMED CT 97340244 / Confirmed Screening PSA (prostate specific antigen) / SNOMED CT 862333386 / Confirmed BPH with urinary obstruction / SNOMED CT 8691972281 / Confirmed Acquired buried penis / SNOMED CT 770750474 / Confirmed Histories Past Medical History: No [...] change in bowel habits Plan: -EGD and ColonoscopyCincinnati Va Medical CenterComment on above:Result Comment: Electronically Signed By: Lesley ROMERO, González Cadena\.br\Date and Time Signed: 05/11/24 08:34 [id number] NoteProgress Note-Physician Patient: TATE ENCARNACION Age: 53 [...] qAM, # 75 gram, Refills(s) 3, Pharmacy: [facility], 165, cm, 05/07/24 9:19:00 EST, Height/Length Dosing, 108.1, kg, 05/07/24 9:19:00 EST, Weight Dosing Questran 4 g/9 g oral powder: = 1 packet(s), Oral, BID, # 60 EA, Refills(s) 0, Pharmacy: [facility], 170, cm, 04/24/24 8:57:00 EST, Height/Length Dosing, 108.6, kg, 04/24/24 8:57:00 EST, Weight Dosing Zenpep 60,000 units-189,600 units-252,600 units oral delayed release capsule: See Instructions, 300cap(s), Refill(s) 3, Take 2 caps with each meal and 1 with each snack, [facility], 170, cm, 04/24/24 8:57:00 EST, Height/Length Dosing, 108.6, kg, 04/24/24 8:57:00 EST, Weight Dosing tadalafil 20 mg Tab: 20 mg = 1 tab(s), Oral, As Directed, PRN for erectile dysfunction, Pt to take one tab 1 hour prior to sexual activity. Do not exceed 20mg in 24 hours., # 30 tab(s), Refills(s) 0,Pharmacy: [facility], 165, cm, 05/07/24 9:19:00 EST, Hei... [...] Problems Acquired buried penis / SNOMED CT 836786798 / Confirmed Alcohol drinker / SNOMED CT 144893327 / Confirmed Anemia of chronic disorder (low iron) / SNOMED CT 962381407 / Confirmed Benign hypertension (high blood pressure) / SNOMED CT 11818342 / Confirmed Black stool / SNOMED CT 546121815 / Confirmed Bloating / SNOMED CT 469530824 / Confirmed BPH with urinary obstruction / SNOMED CT 4963419679 / Confirmed Chronic GERD / SNOMED CT 869209895 / Confirmed Decreased sexual desire / SNOMED CT 643860969 / Confirmed ED (erectile dysfunction) / SNOMED CT 2185241699 / Confirmed High triglycerides / SNOMED CT 646074540 / Confirmed Hypogonadism male / SNOMED CT 69506698 / Confirmed Obesity due to excess calories / SNOMED CT 1670900312 / Confirmed Screening PSA (prostate specific antigen) / SNOMED CT 398091745 / Confirmed Stress-related physiological response affecting medical condition / SNOMED CT 40377560 / Confirmed Thyroid function tests abnormal / SNOMED CT 355681830 / Confirmed Canceled: Low libido / SNOMED CT 432446619, Active Problems (16) Acquired buried penis Alcohol [...] have been selected or (more content not included)...[facility] CenterComment on above:Result Comment: Electronically Signed By: Jasvir ROMERO, Cody Alvarez\.br\Date and Time Signed: 05/11/24 08:21 [id number] Hospital Discharge instructions Patient Education 05/07/2024 09:53:04 [...] therapy. Follow these instructions at home: Take rouc-hwj-wfmydwr and prescription medicines only as told by [...] provider. Document Revised: 11/27/2020 Document Reviewed: 11/27/2020 [employer] Patient Education 2023 MaPS. 05/07/2024 09:39:27 Erectile Dysfunction Erectile Dysfunction Erectile [...] Follow these instructions at home: Medicines Take qzwi-pdz-rsovyea and prescription medicines only as told by [...] provider. Document Revised: 06/24/2021 Document Reviewed: 06/24/2021 [employer] Patient Education 2023 MaPS. Follow Up Care 04/27/2024 13:04:43 With:AURORA ROMERO, Ji Be, URL Address: [facility] [address], [place] [address] [phone] When: Unknown Comments:4 mos w/ PSA and T level [facility] 01-27-2025 NotePatient Education Urology Hypogonadism, Male Male [...] Follow these instructions at home: ??? Take kfxf-tve-jsbaixd and prescription medicines only as told by [...] sure you discuss any (more content not included)...[facility] CenterEvaluation + Plan note Future Appointments Appointment Date:05/04/2024 09:30:00 AM Scheduled Provider: Location:[facility] Appointment Type:Surgery FT Appointment Date:05/11/2024 09:00:00 AM Scheduled Provider:Alejandra Hayden MD Location:[facility] Appointment Type:[facility] Follow Up Future Scheduled Tests Laboratory* Pancreatic Elastase, Fecal 04/24/24 * Pancreatic Elastase, Fecal 04/24/24 * Calprotectin, Fecal 04/24/24 Radiology* US Abdomen, Limited 04/24/24 [facility] Evaluation + Plan note Future Appointments Appointment Date:05/04/2024 09:30:00 AM Scheduled Provider: Location:[facility] Appointment Type:Surgery FT Appointment Date:05/11/2024 09:00:00 AM Scheduled Provider:Alejandra Hayden MD Location:[facility] Appointment Type:[facility] Follow Up Diagnostic Tests Pending * Celiac Disease Comprehensive 04/24/24 * Testosterone Level Total 04/24/24 Future Scheduled Tests Laboratory* Pancreatic Elastase, Fecal 04/24/24 * Pancreatic Elastase, Fecal 04/24/24 * Calprotectin, Fecal 04/24/24 Radiology* US Abdomen, Limited 04/24/24 [facility] [place] [facility] evaluation + Plan note Future Appointments Appointment Date:04/26/2024 08:30:00 AM Scheduled Provider: Location[facility] Appointment Type:US Abdominal/Pelvis (FT) Appointment Date:05/04/2024 09:30:00 AM Scheduled Provider: Location:[facility] Appointment Type:Surgery FT Appointment Date:05/11/2024 09:00:00 AM Scheduled Provider:Alejandra Hayden MD Location:[facility] Appointment Type:[facility] Follow Up Diagnostic Tests Pending * Calprotectin, Fecal 04/25/24 * Pancreatic Elastase, Fecal 04/25/24 Future Scheduled Tests Radiology* US Abdomen, Limited 04/26/24 [facility] [place] [facility] evaluation + Plan note Future Appointments Appointment Date:05/04/2024 09:30:00 AM Scheduled Provider: Location:[facility] Appointment Type:Surgery FT Appointment Date:05/11/2024 09:00:00 AM Scheduled Provider:Alejandra Hayden MD Location:[facility] Appointment Type:[facility] Follow Up [facility] [place] [facility] evaluation + Plan note Future Appointments Appointment Date:05/11/2024 08:15:00 AM Scheduled Provider: Location:[facility] Appointment Type:Surgery FT Appointment Date:05/21/2024 09:00:00 AM Scheduled Provider:González Suttno MD Location:[facility] Appointment Type:[facility] Follow Up Appointment Date:09/07/2024 09:45:00 AM Scheduled Provider:Ji SIMON MD Location:[facility] [place] Appointment Type:URO Office Visit Diagnostic Tests Pending * Testosterone Level Total 05/07/24 * PSA Screen, Total 05/07/24 [facility] evaluation + Plan note Future Appointments Appointment Date:09/07/2024 09:45:00 AM Scheduled Provider:Ji SIMON MD Location:[facility] Appointment Type:URO Office Visit [facility] Evaluation + Plan note Future Appointments Appointment Date:09/14/2024 08:00:00 AM Scheduled Provider: Location:[facility] Appointment Type:URO Nurse Visit [facility] evaluation + Plan note Future Appointments Appointment Date:10/15/2024 09:00:00 AM Scheduled Provider: Location:[facility] Appointment Type:URO Nurse Visit [facility] evaluation + Plan note Future Appointments Appointment Date:11/12/2024 08:45:00 AM Scheduled Provider: Location:[facility] Appointment Type:URO Nurse Visit Appointment Date:12/11/2024 09:00:00 AM Scheduled Provider: Location:[facility] Appointment Type:URO Nurse Visit [facility] evaluation + Plan note Future Appointments Appointment Date:11/30/2024 12:30:00 PM Scheduled [facility] Unilateral Upper Extremity Appointment Date:12/11/2024 09:00:00 AM Scheduled Provider: Location:[facility] Appointment Type:URO Nurse Visit Appointment Date:12/24/2024 08:45:00 AM Scheduled Provider: Location:[facility] Appointment Type:URO Nurse Visit Appointment Date:01/07/2025 03:15:00 PM Scheduled Provider:Ji SIMON MD Location:[facility] Appointment Type:URO Office Visit [facility] evaluation + Plan note Future Appointments Appointment Date:12/24/2024 08:45:00 AM Scheduled Provider: Location:[facility] Appointment Type:URO Nurse Visit Appointment Date:01/07/2025 03:15:00 PM Scheduled Provider:Ji SIMON MD Location:[facility] Appointment Type:URO Office Visit [facility] evaluation + Plan note Future Appointments Appointment Date:01/07/2025 03:15:00 PM Scheduled Provider:Ji SIMON MD Location:[facility] Appointment Type:URO Office Visit [facility] evaluation note* Diagnosis Swelling of right hand- [...] Narrative No data available for this section [facility] Hospital Discharge instructions No data available for this section [facility] Progress note No data available for this section [facility] Reason for visit Narrative* Rehabilitation - Outpatient (Routine) - Authorized Specialty Diagnoses / Procedures Referred By Briseida rahman Referred To Contact Occupational Therapy / Physical Therapy Diagnoses Swelling of R hand Procedures CA OCCUPATIONAL THERAPY EVALUATION CA OFFICE/OUTPATIENT [facility] 60 MINUTES Genoveva Cartagena MD [address] [place] [address] [place] [address] Phone: tel: fax: Jazlyn Wilburn, OT [address] [place] [address] Phone: tel: fax: Referral ID Status Reason Start Date Expiration Date V isits Requested Visits Authorized [id number] Authorized 05/15/2024 11/11/2024 30 30 [facility] N[facility]* Rehabilitation - Outpatient (Routine) - Authorized Specialty Diagnoses / Procedures Referred By Briseida rahman Referred To Contact Occupational Therapy / Physical Therapy Diagnoses Swelling of R hand Procedures CA OCCUPATIONAL THERAPY EVALUATION CA OFFICE/OUTPATIENT NEW HIGH MDM 60 MINUTES Genoveva Cartagena MD [address] [place] [address] Phone: tel: fax: Jazlyn Wilburn, OT [address] [place] [address] Phone: tel: fax: Referral ID Status Reason Start Date Expiration Date V isits Requested Visits Authorized [id number] Authorized 05/15/2024 04/10/2025 30 30 [facility] [...] content) DATE CREATED AUTHOR 03/21/2018 [facility] DATE CREATED AUTHOR AUTHOR'S ORGANIZ ATION 04/27/2024 [facility] DATE CREATED AUTHOR AUTHOR'S ORGANIZ ATION 04/28/2024 [facility] DATE CREATED AUTHOR AUTHOR'S ORGANIZ ATION 04/30/2024 [facility] DATE CREATED AUTHOR AUTHOR'S ORGANIZ ATION 05/18/2024 [facility] DATE CREATED AUTHOR AUTHOR'S ORGANIZ ATION 05/19/2024 [facility] DATE CREATED AUTHOR AUTHOR'S ORGANIZ ATION 05/27/2024 [facility] dical [facility] DATE CREATED AUTHOR AUTHOR'S ORGANIZ ATION 09/11/2024 [facility] DATE CREATED AUTHOR AUTHOR'S ORGANIZ ATION 11/16/2024 [facility] DATE CREATED AUTHOR AUTHOR'S ORGANIZ ATION 12/25/2024 [facility] Patient Care team informatio n (unrecognized section and content) Facility Coordinator Relationship Specialty Start Date End Date Unallocated, Jose Hough MD [address] [place] [phone] PCP - General Family Medicine 04/19/24 Kira Garrison MD [address] [place] [address] Referring Physician Family Medicine 04/19/24 Facility Coordinator Relationship Specialty Start Date End Date Unallocated, Jose Hough MD [address] [place] [phone] PCP - General Family Medicine 04/19/24 Kira Garrison MD [address] [place] [phone] Referring Physician Family Medicine 04/19/24 Facility Coordinator Relationship Specialty Start Date End Date Unallocated, Jose Hough MD [address] [place] [address]352 PCP - General Family Medicine 04/19/24 Kira Garrison MD [address] [place] [address] 48245 Referring Physician Family Medicine 04/19/24 Sandra Castellanos DO [address] [phone] Referring Physician Neurology 05/17/24 Facility Coordinator Relationship Specialty Start Date End Date Unallocated, Jose Hough MD [facility] [place] [address] PCP - General Family Medicine 04/19/24 Kira Garrison MD [address] [place] [address] Referring Physician Family Medicine 04/19/24 Sandra Castellanos DO [address] [phone] Referring Physician Neurology 05/17/24 Facility Coordinator Relationship Specialty Start Date End Date Unallocated, Jose Hough MD [address] [place] [phone] PCP - General Family Medicine 04/19/24 Kira Garrison MD [address] [place] [address] 61251 Referring Physician Family Medicine 04/19/24 Sandra Castellanos DO [address] [address] Referring Physician Neurology 05/17/24 Facility Coordinator Relationship Specialty Start Date End Date Unallocated, Jose Hough MD [address] [place] [id number] PCP - General Family Medicine 04/19/24 Kira Garrison MD [address] [place] [address] 32678 Referring Physician Family Medicine 04/19/24 Sandra Castellanos DO [address] [place] [address] Referring Physician Neurology 05/17/24 Reason for Visit (unrecogniz ed section and content) Reason Comments Migraine Specialty Diagnoses / Procedures Referred By Contgalo t Referred To Contact Neurology Diagnoses Migraine, unspecified, not intractable, without status migrainosus ([facility]) Procedures CA OFFICE/OUTPATIENT NEW LOW MDM 30 MINUTES Kira Garrison MD [address] [phone] Phone: tel: fax: Sandra Castellanos DO [address] [place] [address] Phone: tel: fax: Referral ID Status Reason Start Date Expiration Date V isits Requested Visits Authorized [id number] Closed Consult and Treat 04/18/2024 10/15/2024 1 [...] BE BASED ON THE PRIMARY CLINICAL RECORDS. Eligible [facility]. provides no warranty or guarantee of the accuracy or completeness of information in this document.
--- NOTE | 2024-12-26 08:46 | CT_ITS ---
The [address] [address] Patient Name: TATE ENCARNACION MRN: [id number] date: 1970 Sex: M Assigned Patient Location: CT Current Patient Location: CT Accession/Order Number: [id number] Exam Date: 12/26/2024 08:50 Report Date: 12/26/2024 09:58 At the request of: NEW GARRISON Procedure: CT facial bones wo con MAXILLOFACIAL CT WITHOUT CONTRAST: CLINICAL HISTORY: Facial and nasal bone pain. History of fall last month. COMPARISON: 12/02/2024 TECHNIQUE: Spiral axial unenhanced images were obtained through the facial bones. Coronal, sagittal and 3-D volume rendered reconstructions were also reviewed. This CT exam was performed using one or more following dose reduction techniques: Automated exposure control, adjustment of the mA and/or kV according to patient size, or use of iterative reconstruction technique. FINDINGS: There is streak artifact from dental amalgam. There is minor stable nasal bone deformity. No acute facial bone fracture or bony destruction is identified. The mandibular condyles are intact and once again they are seated at the articular eminence while in closed mouth position. There is moderate right nasal septal deviation. There is appropriate development and pneumatization of the paranasal sinuses. There is no mucosal thickening or fluid levels. The ostiomeatal complexes are patent. The intraorbital contents are unremarkable. Shotty cervical lymph nodes are visualized. There are bilateral tonsillar calcifications. CT/CT facial bones wo con IMPRESSION: NO ACUTE BONY FINDINGS OR INTERVAL CHANGE FROM THE COMPARISON. Impression dictated by: Bernadine Carcamo M.D. 12/26/2024 9:58 AM Dictation Location: [employer] Electronically authenticated by: [id number] Y Date: 12/26/2024 09:58
--- OUTSIDE RECORDS SUMMARY | 2024-12-26 08:46 | XMS_ITS | Encounter Summary ---
Author Organization [facility] Address [address] [place] [address] Care Team Providers Care Geotechnical Intern Name Role Phone Kira Heredia MD Unavailable [phone] Unallocated, [facility] Provider Primary Care Provi radha Loco Castellanos DO Unavailable [phone] Encounter Details Date Type Department Care Team (Late st Contact Info) Description 08/31/2024 Orders Only [facility] [address] [place] [address] Kira Heredia MD [address] [place] [address] Social History Tobacco Use Types Packs/Day Years [...] Care Team (Late st Contact Info) Description 12/26/2024 1:00 PM EDT Evaluation [facility] [address] [place] [phone] Purvi Evans, DACIA documented as of this encounter Procedures Procedure [...] on filedocumented in this encounter Care Teams Geotechnical Intern Relationship Specialty Start Date End Date Unallocated, [facility] Provider, [address] [place] [address] PCP - General Family Medicine 04/19/24 Kira Heredia MD [address] [place] [address] [phone] Referring Physician Family Medicine 04/19/24 Loco Castellanos DO [address] [address] Referring Physician Neurology 05/17/24 documented as of this encounter
--- OUTSIDE RECORDS SUMMARY | 2024-12-26 08:47 | XMS_ITS | Clinical Summary ---
Author Organization [facility] Healthcare Address [address] [place] [address] Care Team Providers Care Dean Name Role Phone Kira Heredia MD Unavailable [phone] Unallocated, [facility] Provider Primary Care Provi radha Loco Castellanos DO Unavailable [phone] Allergies No known active allergies Medications cholecalciferol [...] Info) Description 12/26/2024 1:00 PM EDT Evaluation [facility] [address] [place] [address] Purvi Evans, DACIA Health Maintenance Due Date Last Done Comments CT Colonography 1970 Colonoscopy 1970 Colorectal Cancer Screening 1970 FIT-DNA 1970 FIT 1970 FOBT 1970 Sigmoidoscopy 1970 Influenza Vaccine (#1) 2024 Insurance [employer] Care Teams Dean Relationship Specialty Start Date End Date Unallocated, Nomsofya Hough MD [address] [place] [place] [phone] PCP - General Family Medicine 04/19/24 Kira Heredia MD [facility] [place], [place] [phone] Referring Physician Family Medicine 04/19/24 Loco Castellanos DO [address] [address] Referring Physician Neurology 05/17/24
--- OUTSIDE RECORDS SUMMARY | 2024-12-26 08:47 | XMS_ITS | Patient Health Record ---
Author Organization [facility] in [place] Address [address] [place] [address] Care Team Providers Care Retail District Manager Name Role Phone Kira Garrison Primary Care Provider [phone] Peternikhil Reid [place] [phone] Allergies No Known Allergies Results Component Value Reference Range Notes INSULIN Reviewed date:04/18/2024 09:12:23 AM Interpretation: Performing Lab: Notes/Report: [facility] , Insulin 15.6 2.6-24.9 uIU/mL Performed at: [facility] Wind Energy Project Manager: Atul Reid PhD, Phone: [phone] [address], [place] [phone] Performing Lab: see note [facility] LB LAB TESTING Reviewed date:04/18/2024 09:12:23 AM Interpretation: Performing Lab: Notes/Report: [id number] URIC ACID [facility] , Miscellaneous Test COMMENT . Uric Acid 8.2 mg/dL CB Performed at: [facility] Therapeutic target for gout patients: <6.0 Test Ordered: [id number] Uric Acid Wind Energy Project Manager: Atul Reid PhD, Phone: [phone] [address], [place] [phone] Reference Range: 3.8-8.4 Performing Lab: see note - [facility] LB PSA SCREENING Reviewed date:04/17/2024 12:59:36 PM Interpretation: Performing Lab: Notes/Report: [facility] , Prostate Specific Antigen Scrn 0.22 <=4.00 ng/ mL Performing Lab: see note [facility] LB Vitamin B12 Reviewed date:04/18/2024 09:12:24 AM Interpretation: Performing Lab: Notes/Report: [facility] , Vitamin B12 535 848-6933 pg/mL [facility]: [facility] Wind Energy Project Manager: Atul Reid PhD, Phone: [phone] [address], [place] [phone] Performing Lab: see note LC - [facility] LB LAB TESTING Reviewed date:04/30/2024 03:58:21 PM Interpretation: Performing Lab: Notes/Report: [id number] METABOLIC PANEL 14, COMPREHENSIVE [facility] , Miscellaneous Test SEE SCANN ED REPORT Performing Lab: see note LC - [facility] LB XR lumbar spine min 4V Reviewed date:12/20/2024 07:02:27 PM Interpretation: Performing Lab: Notes/Report: Source Facility: [place] [address] XRay Report Signed Patient: KODY ENCARNACION MR#: [id number] : 1970 Acct:[id number] Age/Sex: 54 / M ADM Date: 12/20/24 Loc: RAD Attending Dr: Eh Meyer M.D. Ordering Physician: Eh Meyer M.D. Date of Service: 12/20/24 Procedure(s): XR lumbar spine min 4V Accession Number(s): [id number] cc: KIRA GARRISON ; Eh Meyer M.D. [place] [address] Patient Name: KODY ENCARNACION MRN: [id number] date: 1970 Sex: M Assigned Patient Location: [facility] Current Patient Location: [facility] Accession/Order Number: [id number] Exam Date: 12/20/2024 11:10 Report Date: 12/20/2024 11:54 At the request of: EH MEYER MD Procedure: XR lumbar spine min 4V LUMBAR SPINE -4 views: CLINICAL HISTORY: Back pain and bilateral lower extremity radiculopathy for the past 6 days. No injury. COMPARISON: None AP, lateral and both oblique views of the lumbosacral junction were obtained. There is no acute compression fracture. No significant displacement is seen. Slight disc space narrowing is visualized at L4-5 and the lumbosacral junction. There are tiny endplate spurs. Lower lumbar facet hypertrophy is seen. No pars defect is identified. The sacroiliac joints are maintained and there is mild sclerosis. There are no paraspinal soft tissue abnormalities. XR/XR lumbar spine min 4V IMPRESSION: DEGENERATIVE CHANGES. NO ACUTE PLAIN FILM FINDINGS. Impression dictated by: Bernadine Carcamo M.D. 12/20/2024 11:54 AM Dictation Location: [facility] Electronically authenticated by: [id number] Y Date: 12/20/2024 11:54 Dictated By: Bernadine Carcamo M.D. Signed By: 12/20/24 1157 DD/ 1154 TD/TT: Tool And Die Technician: TSH Reviewed date:09/27/2024 04:10:29 PM Interpretation: Performing Lab: Notes/Report: [facility] , Thyroid Stimulating Hormone 20.514 0.358-3.740 u IU/mL Performing Lab: see note ML - [facility] LB T4 Reviewed date:09/27/2024 04:10:37 PM Interpretation: Performing Lab: Notes/Report: [facility] , T4 Thyroxine 3.30 4.50-12.10 ug/dL Performing Lab: see note - [facility] LB FREE T3 Reviewed date:09/27/2024 04:10:37 PM Interpretation: Performing Lab: Notes/Report: [facility] , Free T3 2.13 2.18-3.98 pg/mL Performing Lab: see note ML - [facility] LB PROLACTIN Reviewed date:09/12/2024 10:18:42 AM Interpretation: Performing Lab: Notes/Report: [facility] , Prolactin 18.3 3.6-25.2 ng/mL [address], [place] [id number] Wind Energy Project Manager: Atul Reid PhD, Phone: [phone] Performed at: [facility] Performing Lab: see note - [facility] LB NM veronika perf SPECT rest str Reviewed date:09/06/2024 12:53:58 PM Interpretation: Performing Lab: Notes/Report: Source Facility: [place] [address] [place] [address] Nuclear Medicine Report Signed Patient: KODY ENCARNACION MR#: [id number] : 1970 Acct:[id number] Age/Sex: 54 / M ADM Date: 09/04/24 Loc: [place] Attending Dr: KIRA GARRISON Ordering Physician: KIRA GARRISON Date of Service: 09/04/24 Procedure(s): NM veronika perf SPECT rest str Accession Number(s): [id number] cc: KIRA GARRISON Patient Name: KODY ENCARNACION MR#: [id number] : 1970 Exam Date: 09/04/2024 Ordering Doctor: KIRA GARRISON [facility] RADIOLOGY REPORT PROCEDURE: NM VERONIKA PERF [...] the study was pending per attending physician [facility]. For more details, please see [...] M.D. Signed By: 09/05/241652 DD/ 51 TD/TT: Tool And Die Technician: hand RT wo con Reviewed date:08/31/2024 11:57:15 AM Interpretation: Performing Lab: Notes/Report: Source Facility: [place] [address] Magnetic Resonance Report Signed Patient: KDOY ENCARNACION MR#: [id number] : 1970 Acct:[id number] Age/Sex: 53 / M ADM Date: 08/31/24 Loc: MRI Attending Dr: KIRA GARRISON Ordering Physician: KIRA GARRISON Date of Service: 08/31/24 Procedure(s): MR hand RT wo con Accession Number(s): [id number] cc: KIRA GARRISON [place] [address] Patient Name: KODY ENCARNACION MRN: [id number] date: 1970 Sex: M Assigned Patient Location: MRI Current Patient Location: MRI Accession/Order Number: [id number] Exam Date: 08/31/2024 11:25 Report Date: 08/31/2024 [...] Xie M.D. 08/31/2024 11:33 AM Dictation Location: [place] [address] Electronically authenticated by: [id number] Y Date: 08/31/2024 11:33 Dictated By: Ken Xie M.D. Signed By: 08/31/24 1135 DD/ 1133 TD/TT: Tool And Die Technician: Testosterone Reviewed date:08/13/2024 11:42:12 AM Interpretation: Performing Lab: Notes/Report: [facility] , Testosterone 168 264-916 ng/dL Adult male reference interval is based on a population of [id number]. healthy nonobese males (BMI <30) between 19 and 39 years Wind Energy Project Manager: Atul Reid PhD, Phone: [phone] [address], [place] [phone] old. gus Levy.al. JCEM 2017,102;6995-6277. PMID: Performed at: - [facility] [place] Performing Lab: see note - [facility] LB TSH Reviewed date:08/13/2024 11:42:12 AM Interpretation: Performing Lab: Notes/Report: [facility] , Thyroid Stimulating Hormone 24.729 0.358-3.740 u IU/mL Performing Lab: see note ML - [facility] LB T4 Reviewed date:08/13/2024 11:42:12 AM Interpretation: Performing Lab: Notes/Report: [facility] , T4 Thyroxine 3.10 4.50-12.10 ug/dL Performing Lab: see note ML - [facility] LB PSA SCREENING Reviewed date:08/13/2024 11:42:12 AM Interpretation: Performing Lab: Notes/Report: [facility] , Prostate Specific Antigen Scrn 0.44 <=4.00 ng/ mL Performing Lab: see note ML - [facility] LB LIPID PROFILE Reviewed date:08/13/2024 11:42:12 AM Interpretation: Performing Lab: Notes/Report: [facility] , Triglycerides 1318 <=150 mg/dL Cholesterol 215 <=200 mg/dL HDL Cholesterol 37 40-60 mg/dL <40 mg/dl - HIGH CARDIOVASCULAR RISK > or =60 mg/dl - LOW CARDIOVASCULAR RISK VLDL CHOLESTEROL 263.6 Chol HDL Ratio 5.8 4.4 - 7.1 AVERAGE RISK >11.0 HIGH RISK 3.3 - 4.4 LOW RISK 7.1 - 11.0 MODERATE RISK Performing Lab: see note ML - [facility] LB FREE T3 Reviewed date:08/13/2024 11:42:12 AM Interpretation: Performing Lab: Notes/Report: [facility] , Free T3 2.47 2.18-3.98 pg/mL Performing Lab: see note ML - [facility] LB DIRECT LDL Reviewed date:08/13/2024 11:42:12 AM Interpretation: Performing Lab: Notes/Report: [facility] , LDL Cholesterol Direct 50 <100 mg/dl OPTIMAL 130-159 mg/dl BORDERLINE HIGH >190 mg/dl VERY HIGH 160-189 mg/dl HIGH 100-129 mg/dl NEAR OR ABOVE OPTIMAL Performing Lab: see note ML - [facility] LB CBC AUTO DIFF Reviewed date:08/13/2024 11:42:12 AM Interpretation: Performing Lab: Notes/Report: [facility] , White Blood Count 4.7 [...] Performing Lab: see note ML - [facility] LB TSH Reviewed date:06/06/2024 09:35:27 AM Interpretation: Performing Lab: Notes/Report: [facility] , Thyroid Stimulating Hormone 46.230 0.358-3.740 u IU/mL Performing Lab: see note ML - [facility] LB T4 Reviewed date:06/06/2024 09:35:27 AM Interpretation: Performing Lab: Notes/Report: [facility] , T4 Thyroxine 0.90 4.50-12.10 ug/dL Performing Lab: see note ML - [facility] LB LIPID PROFILE Reviewed date:06/06/2024 09:35:27 AM Interpretation: Performing Lab: Notes/Report: [facility] , Triglycerides 1473 <=150 mg/dL Cholesterol 245 <=200 mg/dL HDL Cholesterol 36 40-60 mg/dL > or =60 mg/dl - LOW CARDIOVASCULAR RISK <40 mg/dl - HIGH CARDIOVASCULAR RISK VLDL CHOLESTEROL 294.6 Chol HDL Ratio 6.8 7.1 - 11.0 MODERATE RISK 4.4 - 7.1 AVERAGE RISK 3.3 - 4.4 LOW RISK >11.0 HIGH RISK Performing Lab: see note ML - [facility] LB FREE T3 Reviewed date:06/06/2024 09:35:27 AM Interpretation: Performing Lab: Notes/Report: [facility] , Free T3 1.80 2.18-3.98 pg/mL Performing Lab: see note ML - [facility] LB DIRECT LDL Reviewed date:06/06/2024 09:35:27 AM Interpretation: Performing Lab: Notes/Report: [facility] , LDL Cholesterol Direct 49 <100 mg/dl OPTIMAL 100-129 mg/dl NEAR OR ABOVE OPTIMAL 160-189 mg/dl HIGH >190 mg/dl VERY HIGH 130-159 mg/dl BORDERLINE HIGH Performing Lab: see note ML - [facility] LB CBC AUTO DIFF Reviewed date:06/06/2024 09:35:27 AM Interpretation: Performing Lab: Notes/Report: [facility] , White Blood Count 7.2 [...] Performing Lab: see note ML - [facility] LB HLA B 27 Disease Association Reviewed date:05/22/2024 08:17:45 AM Interpretation: Performing Lab: Notes/Report: [facility] , HLA B 27 Disease Association Negative . by the Food and Drug Administration. Wind Energy Project Manager: Elizabeth Quevedo PhD, Phone: [phone] The FDA has determined that such clearance or approval is supplemental method when necessary. technique. Sequence Based Typing (SBT) may be used as a This test was developed and its performance characteristics (PCR) and Sequence Specific Oligonucleotide Probes (SSOP) [address] [place] [address] [phone] This test was performed using Polymerase Chain Reaction determined by [facility]. It has not been cleared or approved Performed at: [address] [place] [address] DNA not necessary. B27 allele interpretation for all loci based on IMGT/HLA database version 3.51.0 HLA Lab CLIA ID Number [id number] If you have questions, please call HLA customer service at or email at [email or web address]. HLA-B*27 Negative Performing Lab: see note - [facility] LB Erythrocyte Sedimentation Ra te Reviewed date:05/22/2024 08:17:45 AM Interpretation: Performing Lab: Notes/Report: [facility] , Erythrocyte Sedimentation Rate 16 <=20 mm/hr Performing Lab: see note - [facility] LB RHEUMATOID FACTOR Reviewed date:05/22/2024 08:17:45 AM Interpretation: Performing Lab: Notes/Report: [facility] , Rheumatoid Factor (RF) 13.8 <14.0 IU/mL [address] [place] [phone] Wind Energy Project Manager: Atul Reid PhD, Phone: [phone] Performed at: [facility] Performing Lab: see note [facility] LB PROF CHEM 8 (BAS METB) Reviewed date:05/22/2024 08:17:45 AM Interpretation: Performing Lab: Notes/Report: [facility] , Sodium 138 136-145 mmol/L Potassium 4.3 3.5-5.1 mmol/L Chloride 101 98-107 mmol/L Carbon Dioxide 28.0 21.0-32.0 mmol/L Anion Gap 13.3 Glucose 152 74-106 mg/dL Blood Urea Nitrogen 15.0 7.0-18.0 mg/dL Creatinine 1.31 0.70-1.30 mg/dL Estimated GFR ( Valentina >60 >=60 mL/mi n/1.73m 2 Estimated GFR (Non- Jen 57 >=60 mL/mi n/1.73m 2 BUN Creatinine Ratio 11.5 Calcium 9.1 8.5-10.1 mg/dL Performing Lab: see note ML - [facility] LB CRP Reviewed date:05/22/2024 08:17:45 AM Interpretation: Performing Lab: Notes/Report: [facility] , C Reactive Protein <0.50 <=0.50 mg/dL Performing Lab: see note ML - [facility] LB CBC AUTO DIFF Reviewed date:05/22/2024 08:17:45 AM Interpretation: Performing Lab: Notes/Report: [facility] , White Blood Count 5.8 [...] Performing Lab: see note ML - [facility] LB MARY by IFA Reviewed date:05/22/2024 08:17:18 AM Interpretation: Performing Lab: Notes/Report: [facility] , Antinuclear Antibodies, IFA Negative . International Consensus on Antinuclear Antibody (MARY) Borderline 1:80 Negative <1:[address] [place] [phone] Patterns ([facility]). For more information about Hep-2 cell patterns use ANApatterns.KaraokeSmart.[email or web address], the official website for the Positive >1:80 Wind Energy Project Manager: Atul Reid PhD, Phone: [phone] [facility]formed at: - [facility] nomenclature: AC-0 Performing Lab: see note - [facility] LB MR head/brain wo con Reviewed date:05/11/2024 12:35:06 PM Interpretation: Performing Lab: Notes/Report: Source Facility: [place] [address] Magnetic Resonance Report Signed Patient: KODY ENCARNACION MR#: [id number] : 1970 Acct:[id number] Age/Sex: 53 / M ADM Date: 05/08/24 Loc: MRI Attending Dr: KIRA GARRISON Ordering Physician: KIRA GARRISON Date of Service: 05/08/24 Procedure(s): MR head/brain wo con Accession Number(s): [id number] cc: KIRA GARRISON [place] [address] Patient Name: KDOY ENCARNACION MRN: [id number] date: 1970 Sex: M Assigned Patient Location: MRI Current Patient Location: MRI Accession/Order Number: [id number] Exam Date: 05/08/2024 09:00 Report Date: 05/08/2024 [...] Signed By: 05/08/24 1302 DD/ 1259 TD/TT: Tool And Die Technician: Occult Blood* Reviewed date:04/19/2024 12:06:25 PM Interpretation: Performing Lab: Notes/Report: [facility] , Occult Blood Negative Performing Lab: see note ML - [facility] LB VITAMIN D 25 [place] Reviewed date:04/17/2024 12:59:36 PM Interpretation: Performing Lab: Notes/Report: [facility] , Vitamin D 21.6 30-100 ng/mL Vit D sufficient <20 ng/mL Vit D deficient >100 ng/mL Potential Toxicity 20-<30 ng/mL Vit D insufficient Performing Lab: see note ML - [facility] LB TSH Reviewed date:04/17/2024 12:59:36 PM Interpretation: Performing Lab: Notes/Report: [facility] , Thyroid Stimulating Hormone 27.573 0.358-3.740 u IU/mL Performing Lab: see note ML - [facility] LB T4 Reviewed date:04/17/2024 12:59:36 PM Interpretation: Performing Lab: Notes/Report: [facility] , T4 Thyroxine 4.30 4.50-12.10 ug/dL Performing Lab: see note ML - [facility] LB LIPID PROFILE Reviewed date:04/17/2024 12:59:36 PM Interpretation: Performing Lab: Notes/Report: [facility] , Triglycerides 3317 <=150 mg/dL Cholesterol 301 <=200 mg/dL HDL Cholesterol 27 40-60 mg/dL > or =60 mg/dl - LOW CARDIOVASCULAR RISK <40 mg/dl - HIGH CARDIOVASCULAR RISK VLDL CHOLESTEROL 663.4 Chol HDL Ratio 11.1 >11.0 HIGH RISK 3.3 - 4.4 LOW RISK 7.1 - 11.0 MODERATE RISK 4.4 - 7.1 AVERAGE RISK Performing Lab: see note ML - [facility] LB GLYCOHEMOGLOBIN A1C Reviewed date:04/17/2024 12:59:36 PM Interpretation: Performing Lab: Notes/Report: [facility] , Glycohemoglobin A1C 6.1 4.5-6.2 % > 7.0 ADA THERAPEUTIC TARGET < 7.0 ADA RECOMMENDED LIMIT 4.0 - 6.0 ACTION SUGGESTED Estimated Average Glucose 128 Performing Lab: see note ML - [facility] LB FREE T3 Reviewed date:04/17/2024 12:59:36 PM Interpretation: Performing Lab: Notes/Report: [facility] , Free T3 2.15 2.18-3.98 pg/mL Performing Lab: see note ML - [facility] LB DIRECT LDL Reviewed date:04/17/2024 12:59:36 PM Interpretation: Performing Lab: Notes/Report: [facility] , LDL Cholesterol Direct 49 <100 mg/dl OPTIMAL 100-129 mg/dl NEAR OR ABOVE OPTIMAL 160-189 mg/dl HIGH 130-159 mg/dl BORDERLINE HIGH >190 mg/dl VERY HIGH Performing Lab: see note ML - [facility] LB CBC AUTO DIFF Reviewed date:04/17/2024 12:59:36 PM Interpretation: Performing Lab: Notes/Report: [facility] , White Blood Count 5.8 [...] 3/uL Performing Lab: see note ML - [facility] LB XR KNEE LT 3V Reviewed date:04/17/2024 04:05:58 PM Interpretation: Performing Lab: Notes/Report: Source Facility: [place] [address] XRay Report Signed Patient: KODY ENCARNACION MR#: [id number] : 1970 Acct:[id number] Age/Sex: 53 / M ADM Date: 04/17/24 Loc: LAB Attending Dr: KIRA GARRISON Ordering Physician: KIRA GARRISON Date of Service: 04/17/24 Procedure(s): XR knee LT 3V Accession Number(s): [id number] cc: KIRA GARRISON [place] [id number] Patient Name: KODY ENCARNACION MRN: [id number] date: 1970 Sex: M Assigned Patient Location: LAB Current Patient Location: LAB Accession/Order Number: [id number] Exam Date: 04/17/2024 10:25 Report Date: 04/17/2024 [...] Signed By: 04/17/24 1535 DD/ 1532 TD/TT: Tool And Die Technician: XR HAND RT MIN 3V Reviewed date:04/17/2024 04:06:04 PM Interpretation: Performing Lab: Notes/Report: Source Facility: [place] [address] XRay Report Signed Patient: KODY ENCARNACION MR#: [id number] : 1970 Acct:[id number] Age/Sex: 53 / M ADM Date: 04/17/24 Loc: LAB Attending Dr: KIRA GARRISON Ordering Physician: KIRA GARRISON Date of Service: 04/17/24 Procedure(s): XR hand RT min 3V Accession Number(s): [id number] cc: KIRA GARRISON [place] [address] Patient Name: KODY ENCARNACION MRN: [id number] date: 1970 Sex: M Assigned Patient Location: LAB Current Patient Location: LAB Accession/Order Number: [id number] Exam Date: 04/17/2024 10:25 Report Date: 04/17/2024 [...] Signed By: 04/17/24 1535 DD/ 1532 TD/TT: Tool And Die Technician: MELISSA Reviewed date:04/17/2024 12:59:36 PM Interpretation: Performing Lab: Notes/Report: [facility] , Iron 129.0 65.0-175.0 ug/dL Performing Lab: see note - [facility] LB LAB TESTING Reviewed date:12/25/2024 01:07:15 PM Interpretation: Performing Lab: Notes/Report: [id number] Thyroxine (T4) and Thyroid Stimulating Hormone (TSH) [facility] , Miscellaneous Test COMMENT . Test Ordered: [id number] T4 and TSH Reference Range: 4.5-12.0 Wind Energy Project Manager: Atul Reid PhD, Phone: [phone] TSH 6.340 [H ] uIU/mL CB Performed at: [facility] Thyroxine (T4) 5.5 ug/dL Reference Range: 0.450-4.[address] [place] [phone] Performing Lab: see note [facility] LB LAB TESTING Reviewed date:12/25/2024 01:07:15 PM Interpretation: Performing Lab: Notes/Report: [id number] Triiodothyronine T3, Free [facility] , Miscellaneous Test COMMENT . Triiodothyronine (T3), Free 3.4 pg/mL Reference Range: 2.0-4.4 Test Ordered: [id number] Triiodothyronine (T3), Free Wind Energy Project Manager: Atul Reid PhD, Phone: [phone] [address] [place] [phone] Performed at: [facility] Performing Lab: see note [facility] TSH Reviewed date:11/12/2024 01:02:20 PM Interpretation: Performing Lab: Notes/Report: [facility] , Thyroid Stimulating Hormone 10.166 0.358-3.740 u IU/mL Performing Lab: see note ML - [facility] LB T4 Reviewed date:11/12/2024 01:02:51 PM Interpretation: Performing Lab: Notes/Report: [facility] , T4 Thyroxine 4.10 4.50-12.10 ug/dL Performing Lab: see note ML - [facility] LB FREE T3 Reviewed date:11/12/2024 01:02:51 PM Interpretation: Performing Lab: Notes/Report: [facility] , Free T3 2.00 2.18-3.98 pg/mL Performing Lab: see note ML - [facility] LB Reason For Referral Reason headache for 6 month s Diagnosis 1 Migraine (G43.909) Referral Organization [facility] Referring Provider First Name Kira Referring Provider Last Name Yan Referring Provider [facility] Referred Provider Kenzie Null Referred Provider Specialty Neurology Referral Priority Routine Reason IBS Diagnosis 1 Irritable bowel (K58 .9) Referral Organization [facility] Referring Provider First Name Kira Referring Provider Last Name Yan Referring Provider [facility] Referred Provider Cristobal Moncada Referred Provider Specialty Gastroentero logy Referral Priority Routine Diagnosis 1 Irritable bowel (K58 .9) Referral Organization [facility] Referring Provider First Name Kira Referring Provider Last Name Yan Referring Provider [facility] Referred Provider Alejandra Hayden Referred Provider Specialty Gastroentero logy Referral Priority Routine Diagnosis 1 Left knee pain (M25. 562) Referral Organization [facility] Referring Provider First Name Kira Referring Provider Last Name Yan Referring Provider [facility] Referred Provider John [place]a Referred Provider Specialty Orthopedic S urgery Referral Priority Routine Diagnosis 1 Polyarticular osteoa rthritis (M15.9) Referral Organization [facility] Referring Provider First Name Kira Referring Provider Last Name Yan Referring Provider [facility] Referred Provider Abdi Duke Referred Provider Specialty Rheumatology Referral Priority Routine Diagnosis 1 Hand pain (M79.643) Referral Organization [facility] Referring Provider First Name Kiar Referring Provider Last Name Yan [facility]erring [facility] icine Referred Provider Jose Pfeiffer) Referred Provider Specialty Orthopedic S urgery General Notes Taylor Bennett 2024 08:40:44 AM >Second Opinion Referral Priority Routine Reason MALCOLM, fatigue Diagnosis 1 Sleep apnea (G47.30) Referral Organization [facility] Referring Provider First Name Kira Referring Provider Last Name Yan Referring Provider [facility] icine Referred Provider Kenzie Null Referred Provider Specialty Sleep Medici ne Referral Priority Routine Diagnosis 1 Lumbar radiculopathy (M54.16) Referral Organization [facility] Referring Provider First Name Reid Referring Provider Last Name Betsy Referring Provider Speciality [facility] icine Referred Provider Specialty Physical Med icine and Rehabilitation Referral Priority Routine Medications Medication SIG (Take, Route, Frequency, Duration) Notes Start Date End Date Status Daypro 600 MG 2 tablets Orally teodora ly; Duration: 20 days 12/20/2024 Active Wellbutrin XL 150 [...] Oral; Duration: 30 Days Active Levothyroxine Sodium 200 MCG TAKE 1 TABLET BY MOUTH EVERY DAY; Duration: 30 days Active Fish Oil 1000 MG TAKE 1 CAPSULE BY [facility] THREE TIMES DAILY FOR 30 DAYS; Duration: 30 Active Cholestyramine 4 GM/DOSE TAKE FOUR GRAM BY MOUTH TWICE DAILY Oral; Duration: 100 Days Active BD Syringe/Needle 23G X 1 3 ML as directed; Duration: 90 days 06/21/2024 Active tiZANidine HCl 4 MG 2 tabs Orally qhs; Duration: 30 days 12/20/2024 Active predniSONE 20 MG 3 tablets Orally Onc e a day; Duration: 5 days 12/20/2024 Active Social History Tobacco Use: Social History Observation Description Date Details (start date - stop date) Never Smoker NA - NA Tobacco Use/Smoking Question Answer Notes Patient is a nonsmoker Tobacco use other than smoking: Question Answer Notes Are you an other tobacco user? Yes tommy olivas tobacco AUDIT-C (Standard) Question Answer Notes Did [...] Status W/U Status Risk Notes Problem Hypothyroidism (38322661) Hypothyroidism (E03.9) Active confirmed Problem Sleep apnea (95290850) Sleep apnea (G47.30) Active confirmed Problem Vitamin D deficiency (42639958) Vitamin D deficiency (E55.9) Active confirmed Problem Migraine (64200572) Migraine (G43.909) Active c onfirmed Problem Chronic fatigue syndrome (12263091) Chronic fatigue (R53.82) Active confirmed Problem Lumbar radiculopathy (754534565) Lumbar radiculopathy (M54.16) Active confirmed Problem Hypertriglyceridemia (390317946) Hypertriglyceridemia (E78.1) Active confirmed Problem Tobacco user (474450334) Nicotine addiction (F17.200) Active confirmed Problem Low testosterone (655903996) Low testosterone (E29.1) Active confirmed Problem Neuralgia (29716083) Neuralgia (M79.2) Active c onfirmed Problem Irritable bowel (98871438) Irritable bowel (K58.9) Active confirmed Problem Mixed anxiety and depressive disorder (755205477) Anxiety and depression (F41.8) Active confirmed Problem 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) Active confirmed Problem Obese class I (finding) (980645389264651) Class 1 obesity (E66.9) Active confirmed Problem Polyarticular osteoarthritis (683670154) Polyarticular osteoarthritis (M15.9) Active confirmed Problem Current drinker of alcohol (451024) Alcohol use (Z72.89) Active confirmed Vital Signs [...] N/A Encounters Encounter Location Date Provider Diagnosis [facility] [address] [place] [address] 12/25/2024 Kira Garrison Hypothyroidism E03.9 [facility] [address] [place] [address] 11/06/2024 Kira Garrison Abnormal thyroid blo od test R94.6 [facility] [address] [place] [address] 11/12/2024 Kira Garrison Hypothyroidism E03.9 [facility] [address] [place] [address] 12/13/2024 Kira Garrison [facility] [address] [place] [address] 12/17/2024 Kira Garrison Face pain R51.9 [facility] [address] [place] [address] 12/19/2024 Kira Garrison [facility] [address] [place] [address] 12/20/2024 Reid Meyer Lumbar radiculopathy M54.16 [facility] [address] [place] [address] 08/27/2024 Kira Garrison Hand pain M79.643 [facility] [address] [place] [address] 08/31/2024 Kira Garrison [facility] [address] [place] [address] 09/06/2024 iKra Garrison [facility] [address] [place] [address] 09/10/2024 Kira Garrison [facility] [address] [place] [address] 09/24/2024 Kira Garrison Low testosterone E29 .1 [facility] [address] [place] [address] 09/27/2024 Kira Garrison Hypothyroidism E03.9 [facility] [address] [place] [address] 06/18/2024 Kira Garrison Fatigue R53.83 and L ow testosterone E29.1 [facility] [address] [place] [address] 06/28/2024 Kira Garrison [facility] [address] [place] [address] 07/24/2024 Kira Garrison [facility] [address] [place] [address] 08/06/2024 Reid Meyer Low testosterone E29 .1 [facility] [address] [place] [address] 08/09/2024 Kira Garrison Low testosterone E29 .1 [facility] [address] [place] [address] 08/21/2024 Kira Garrison Hypothyroidism E03.9 and Low testosterone E29.1 [facility] [address] [place] [address] 05/11/2024 Kira Garrison [facility] [address] [place] [address] 06/04/2024 Kira Garrison Wellness examination Z00.00 and Hypothyroidism E03.9 [facility] [address] [place] [address] 06/06/2024 Kira Garrison Hypothyroidism E03.9 and Hypertriglyceridemia E78.1 [facility] [address] [place] [address] 06/08/2024 Kira Garrison Hypertriglyceridemia E78.1 [facility] [address] [place] [address] 06/12/2024 Reid Meyer [facility] [address] [place] [address] 06/13/2024 Kira Garrison [facility] [address] [place] [address] 04/18/2024 Kira Garrison Irritable bowel K58. 9 [facility] [address] [place] [address] 04/19/2024 Kira Garrison [facility] [address] [facility] [address] 04/23/2024 Kira Garrison [facility] [address] [place] [address] 04/30/2024 Kira Garrison Left knee pain M25.5 62 and Polyarticular osteoarthritis M15.9 [facility] [address] [place] [address] 06/28/2024 Reid Hoy Low testosterone E29 .1 [facility] [address] [place] [address] 07/12/2024 Reid Petery Low testosterone E29 .1 [facility] [address] [place] [address] 07/24/2024 Kira Garrison Low testosterone E29 .1 [facility] [address] [place] [address] 08/16/2024 Kira Garrison Low testosterone E29 .1 [facility] [address] [place] [address] 08/30/2024 Kira Garrison Low testosterone E29 .1 [facility] [address] [place] [address] 04/17/2024 Kira Garrison Wellness examination Z00.00 ; Migraine G43.909 ; Right hand pain M79.641 ; Left knee pain M25.562 ; Irritable bowel K58.9 and Depression F32.A [facility] [address] [place] [address] 04/20/2024 Kira Garrison Right hand pain M79. 641 ; Hypertriglyceridemia E78.1 ; Left knee pain M25.562 ; Hypothyroidism E03.9 and Vitamin D deficiency E55.9 [address] [place] [address] 06/13/2024 Kira Garrison Fatigue R53.83 ; Low testosterone E29.1 ; Sleep apnea G47.30 and Hypothyroidism E03.[address] [address] 08/27/2024 Kira Garrison Intermittent chest p ain R07.9 ; Fatigue R53.83 and Right hand pain M79.[address] [address] 09/27/2024 Kira Yan Hypothyroidism E03.9 ; Sleep apnea G47.30 ; Low testosterone E29.1 ; Anxiety and depression F41.8 and Chronic fatigue R53.[address] [address] 12/07/2024 Kira Garrison Stapled skin wound T 14.8XXA [address] [address] 12/11/2024 Kira Yan Stapled skin wound T 14.8XXA [address] [address] 12/20/2024 Reid Hoy Lumbar radiculopathy M54.16 Assessments Encounter Date Diagnosis [...] E03.9) 12/17/2024 Face pain (ICD-10 - R51.9) 12/20/2024 Lumbar radiculopathy (ICD-10 - M54.16) 12/25/2024 Hypothyroidism (ICD- 10 - E03.9) 09/27/2024 Hypothyroidism [...] 4 VIEWS 12/20/2024 THYROID PANEL (T4/TSH/FREE T3) 3 THYROID PANEL (T4/TSH/FREE T3) 5 THYROID PANEL (T4/TSH/FREE T3) 5 THYROID PANEL (T4/TSH/FREE T3) 5 THYROID PANEL (T4/TSH/FREE T3) 5 THYROID PANEL (T4/TSH/FREE T3) 5 THYROID PANEL (T4/TSH/FREE T3) 5 THYROID PANEL (T4/TSH/FREE T3) 5 THYROID PANEL (T4/TSH/FREE T3) 4 THYROID PANEL (T4/TSH/FREE T3) 5 THYROID PANEL (T4/TSH/FREE T3) Vitamin D 04/17/2024 Vitamin D 04/08/2023 Lipid Panel 06/06/2024 *CARDIO Stress Test - Cardiolite 025 Medications Administered Medication Instructions Date of Administration Dosage Notes Testosterone Cypionate 06/28/2024 0.75 mL Testosterone Cypionate 07/12/2024 0.75 mL Testosterone Cypionate 07/24/2024 0.75 mL Testosterone Cypionate 08/16/2024 0.75 mL Testosterone Cypionate 08/30/2024 0.75 mL Medical (General) History Surgical History Surgery Date(Month/Year) denies Hospitalization History Reason Date(Month/Year) denies
== END 2024-12-26 08:38 | disposition home or self-care (01) ==
LOC: CT 08:40
PROVIDERS: PCP Nurse Practitioner Family; Visit Provider Nurse Practitioner Family
DX: R51.9 Headache, unspecified (principal)
CPT/HCPCS: 70486; 76376

== ENCOUNTER 2025-02-26 12:24 | Outpatient (OUT) | payer OTHER, SELFPAY ==
--- OUTSIDE RECORDS SUMMARY | 2025-02-26 12:31 | XMS_ITS | CCD ---
Author Organization [facility] CliniSyri Care Team Providers Care Pearl Glue Operator Name Role Phone NADERER, LUIS ANTONIO [...] Unavailable Unavailable KIRA GARRISON Primary Care Physician [phone] Jackelyn Mohtianad A. Admitting Unavailable Mouchli, Mohamad A. Attending Unavailable Mouchli, Mohamad A. Attending Unavailable Mouchli, Mohamad A. Admitting Unavailable Kira Garrison MD Unavailable Unallocated , Noms Provider Primary Care Provi [facility] Jasmin CLEANING Christopher Unavailable Jackelyn, Mohamad A. Referring Unavailable Ji SIMON Attending Unavailable Mouchli, Mohamad A. Attending Unavailable Mouchli, Mohamad A. Referring Unavailable Mouchli, Mohamad A. Admitting Unavailable Ji SIMON Attending Unavailable Mouchli, Mohamad A. Admitting Unavailable Mouchli, Mohamad A. Attending Unavailable Mouchli, Mohamad A. Referring Unavailable Jasmin CLEANING Christopher Unavailable [phone] Ji SIMON Attending Unavailable Ji SIMON Attending Unavailable Ji SIMON R Attending Unavailable Ji SIMON Attending Unavailable Ji SIMON Attending Unavailable Ji SIMON Attending Unavailable Leonides Gerard Admitting Unavailable Leonides Gerard Attending Unavailable Leonides Gerard Referring Unavailable Ji SIMON Attending Unavailable Ji SIMON Admitting Unavailable González Sutton Attending UnavailGonzález Case Attending Unavaila ble JAZLYN WILBURN Attending Unavailable GENOVEVA CARTAGENA Referring Unavailable SANDRA CASTELLANOS Attending Unavailable KIRA GARRISON Referring Unavailable JAZLYN WILBURN Attending Unavailable GENOVEVA CARTAGENA Referring Unavailable JAZLYN WILBURN Attending Unavailable GENOVEVA CARTAGENA Referring Unavailable JAZLYN WILBURN Attending Unavailable AMADEO GENOVEVA Radha Referring Unavailable PURVI EVANS Attending Unavailable EH ABDUL Referring Unavailable COLBY SOLIS Attending Unavailable EH ABDUL Referring Unavailable COLBY SOLIS Attending Unavailable EH ABDUL Referring Unavailable Meli ROMERO, Kira Unavailable Sandra Castellanos DO Unavailable Ji SIMON Attending Unavailable Ji SIMON Attending Unavailable Ji SIMON Attending Unavailable Alejandra Hayden Admitting Unavailable MoAlejandra peraza Attending Unavailable MoAlejandra peraza Attending Unavailable González Sutton Attending Unavaila ble Allergies Allergy ClassificationReported Allergen(s)Allergy TypeDate of OnsetReaction(s) Facility (6 sources)No Known Medication Allergies; Translations: [No Known Medication Allergies]Propensity to adverse reactions (disorder)[facility] Repository Medications Current Medications MedicationDrug Class(es)DatesSig (Normalized)Sig (Original)amylase 271511 unt / lipase 74802 unt / protease [id number] unt delayed release oral capsule (8 sources)Start: 58-45-3351Azsza 36,000 units oral delayed release capsule 2 cap(s), Oral, TID, 360 cap(s), Refill(s) 3, [facility], 170, cm, 07/17/24 13:04:00 EDT, Height/Length Dosing, 101, kg, 07/17/24 13:04:00 EDT, Weight Dosing Start Date: 07/17/24 Status: Ordered Medication Dispense Status: Completed Quantity: 360.0 Unit: cap(s) Total Allowed Fills: 4 Fills Dispensed: 0 amylase 768610 UNT / lipase 76827 UNT / protease [id number] UNT Delayed Release Oral Capsule [Zenpep] (3 sources)Start: 84-70-2610Cdidjp 60,000 units-189,600 units-252,600 units oral delayed release capsule See Instructions, 300 cap(s), Refill(s) 3, Take 2 caps with each meal and 1 with each snack, [facility], 170, cm, 04/24/24 8:57:00 EST, Height/Length Dosing, 108.6, kg, 04/24/24 8:57:00 EST, Weight Dosing Start Date: 04/30/24 Status: Orderedcholecalciferol 0.05 mg oral capsule (14 sources)Vitamin DStart: 48-18-9194rloh 1 capsule by mouth once daily cholecalciferol (Vitamin D-3) 50 MCG (1999) capsule Take 2,000 Units by mouth Daily 04/23/2024 Activecholestyramine resin 4000 mg powder for oral suspension (20 sources)Bile Acid SequestrantStart: 97-97-3884tdtf 4 g by mouth in the morningcholestyramine (Questran) 4 GM/DOSE powder Take 4 g by mouth in the morning and 4 g in the evening.Take with meals. 05/14/2024 ActiveStart: 07-88-7564lcol 4 g by mouth twice dailycholestyramine 4 g/9 g Oral Pwdr 4 gm, Oral, BID, 378 gm, Refill(s) 11, [facility],170, cm, 05/11/24 7:28:00 EST, Height/Length Dosing, 108.6, kg, 05/11/24 7:28:00 EST, Weight DosingStart Date: 05/14/24 Status: Ordered Medication Dispense Status: Completed Quantity: 378.0 Unit: g Total Allowed Fills: 12 Fills Dispensed: 0Start: 14-34-5245ercz 1 dose by mouth twice dailyQuestran 4 g/9 g oral powder = 1 packet(s), Oral, BID, # 60 EA, Refills(s) 0, Pharmacy: [facility], 170, cm, 04/24/24 8:57:00 EST, Height/Length Dosing, 108.6, kg, 04/24/24 8:57:00 EST, Weight Dosing Start Date: 04/24/24 Status: Ordered Medication Dispense Status: Completed Quantity:60.0 Unit: EA Total Allowed Fills: 1 Fills Dispensed: 0 Indications: Melena; Irritable bowel syndrome with diarrhea; Abdominal distension (gaseous); Gastro-esophageal reflux disease without esophagitis;Fish Oils (8 sources)Start: 33-71-4955Dhtc Oil Oral, Refill(s) 0 Start Date: 08/16/24 Status: Ordered Medication Dispense Status: CompletedTotal Allowed Fills: 1 Fills Dispensed: 0Start: 88-28-6224Gtqv Oil Oral, Refill(s) 0 Start Date: 08/16/24 Status: Ordered Repeat number: 1FLUoxetine 20 mg oral capsule (20 sources)Serotonin Reuptake InhibitorStart: 12-47-7314mxzl 1 capsule by mouth once dailyFLUoxetine (PROzac) 20 MG capsule Take 20 mg by mouth Daily 05/14/2024 ActiveStart: 01-21-6639idfl 20 mg by mouth once dailyProzac 20 mg, Oral, Daily, Refills(s) 0, Depression Start Date: 04/24/24 Status: Ordered Medication Dispense Status: Completed Total Allowed Fills: 1 Fills Dispensed: 0 icosapent ethyl 1000 mg oral capsule (20 sources)Start: 42-52-5265hkoa 1 capsule by mouth twice dailyVascepa 1 g oral capsule gm cap(s), Oral, BID, Refills(s) 0, High cholesterol Start Date: 04/24/24 Status: Ordered Medication Dispense Status: Completed Total Allowed Fills: 1 Fills Dispensed: 0Start: 19-42-9120hihv 2 capsules by mouth in the morningVascepa 1 g capsule Take 2 capsules by mouth in the morning and 2 capsules in the evening. Take with meals. 04/20/2024 Activelevothyroxine (20 sources)l-ThyroxineStart: 35-24-9233jrqhbuulxhhzw Daily, Refills(s) 0, Thyroid Start Date: 04/24/24 Status: Ordered Medication Dispense Status: Completed Total Allowed Fills: 1 Fills Dispensed: 0Start: 04-24-2024 levothyroxine Daily, Refills(s) 0, Thyroid Start Date: 04/24/24 Status: Ordered Repeat number: 1Start: 48-02-2214tbdezsxnknsun Daily, Refills(s) 0, Thyroid Start Date: 04/24/24 Status: OrderedStart: 49-62-4800aalpxgnojxvgr Daily, Refills(s) 0 Start Date: 04/24/24 Status: OrderedStart: 80-11-1619gesm 1 tablet by mouth once dailylevothyroxine (Synthroid, Levoxyl) 50 MCG tablet Take 50 mcg by mouth Daily 04/11/2024 Activemeloxicam 15 mg oral tablet (14 sources)Nonsteroidal Anti-inflammatory DrugStart: 32-06-6915lukd 1 tablet by mouth once dailyMobic 15 MG tablet Take 15 mg by mouth 1 (one) time each day at the same time 05/14/2024 Activeomeprazole 40 mg delayed release oral capsule (20 sources)Proton Pump InhibitorStart: 05-53-2747tgqf 1 capsule by mouth twice dailyomeprazole 40 mg Cap-DR 40 mg = 1 cap(s), Oral, BID, # 180 cap(s), Refills(s) 3, Pharmacy: [facility], 170, cm, 05/11/24 7:28:00 EST, Height/Length Dosing, 108.6, kg, 05/11/24 7:28:00EST, Weight Dosing Start Date: 05/11/24 Status: Ordered Medication Dispense Status: Completed Quantity: 180.0 Unit: cap(s) Total Allowed Fills: 4 Fills Dispensed: 0testosterone cypionate 200 mg/ml injectable solution (5 sources)AndrogenStart: 02-04-3377Hjvk-Testosterone 200 mg/mL intramuscular solution 400 mg, IntraMuscular, q4wk, Inject 400mg IM q 4weeks, # 10 mL, Refills(s) 2, Pharmacy: [facility], 165, cm, 01/07/25 15:55:00 EDT,Height/Length Dosing, 108, kg, 01/07/25 15:55:00 EDT, Weight Dosing Start Date: 02/06/25 Status: Ordered Medication Dispense Status: Completed Quantity: 10.0 Unit: mL Total Allowed Fills: 3 Fills Dispensed: 0 Indications: Testicular hypofunction;Start: 03-75-7776Mmms-Testosterone 200 mg/mL intramuscular solution 400 mg, IntraMuscular, q4wk, Inject 400mg IM q 4weeks, # 10 mL, Refills(s) 2, Pharmacy: [facility], 165, cm, 09/10/24 15:33:00 EDT, Height/Length Dosing, 108, kg, 09/10/24 15:33:00 EDT, Weight Dosing Start Date: 12/24/24 Status: Ordered Quantity: 10.0 Unit: mL Repeat number: 3 Indications: Testicular hypofunction;Start: 84-14-2384YdqpfBqt Pump 20.25 mg/1.25 g (1.62%) transdermal gel = 2 pump, Topical, qAM, # 75 gram, Refills(s)3, Pharmacy: [facility], 165, cm, 05/07/24 9:19:00 EST, Height/Length Dosing, 108.1, kg, 05/07/24 9:19:00 EST, Weight Dosing Start Date: 05/07/24 Status: Orderedtestosterone cypionate 200 mg/mL IM Claribel (3 sources)Start: 70-99-8124cwdaecqdswed cypionate 200 mg/mL IM Claribel 400 mg, IntraMuscular, q4wk, # 10 mL, Refills(s) 3, Pharmacy: [facility], 165, cm, 09/10/24 15:33:00 EDT, Height/Length Dosing, 108, kg, 09/10/24 15:33:00 EDT, Weight Dosing Start Date: 11/12/24 Status: Ordered Quantity: 10.0 Unit: mL Repeat number: 4 Indications: Testicular hypofunction;Vitamin D3 50 mcg (2000 intl units) oral tablet, chewable (15 sources)Start: 14-75-7805wjpg 1 tablet by mouth once dailyVitamin D3 50 mcg (2000 intl units) oral tablet, chewable mcg tab(s), Oral, Daily, Refills(s) 0, Prophylaxis Start Date: 04/24/24 Status: Ordered Medication Dispense Status: Completed Total Allowed Fills: 1 Fills Dispensed: 0Start: 49-22-9539jowv 1 tablet by mouth once dailyVitamin D3 50 mcg (2000 intl units) oral tablet, chewable mcg tab(s), Oral, Daily, Refills(s) 0, Prophylaxis Start Date: 04/24/24 Status: Ordered Repeat number: 1Start: 85-06-4251psuf 1 tablet by mouth once dailyVitamin D3 50 mcg (2000 intl units) oral tablet, chewable mcg tab(s), Oral, Daily, Refills(s) 0, Prophylaxis Start Date: 04/24/24 Status: OrderedStart: 90-44-0442iphi 1 tablet by mouth once dailyVitamin D3 50 mcg (2000 intl units) oral tablet, chewable mcg tab(s), Oral, Daily, Refills(s) 0 Start Date: 04/24/24 Status: Ordered Completed/Discontinued Medications MedicationDrug Class(es)DatesSig (Normalized)Sig (Original)tadalafil 20 mg oral tablet (11 sources)Phosphodiesterase 5 InhibitorStart: 47-55-2443askr 1 tablet by mouth every hour as needed, then take 1 tablet by mouth every twenty-four hours as neededtadalafil 20 mg Tab 20 mg = 1 tab(s), Oral, As Directed, PRN for erectile dysfunction, Pt to take one tab 1 hour prior to sexual activity. Do not exceed 20mg in 24 hours., # 30 tab(s), Refills(s) 5, Pharmacy: [facility], 165, cm, 01/07/25 15:55:00 EDT, Height/Length Dosing, 108, kg,01/07/25 15:55:00 EDT, Weight Dosing Start Date: 02/06/25 Status: Ordered Medication Dispense Status: Completed Quantity: 30.0 Unit: tab(s) Total Allowed Fills: 6 Fills Dispensed: 0 Indications: Maleerectile dysfunction, unspecified;Start: 11-79-6371iqas 1 tablet by mouth every hour as needed, then take 1 tablet by mouth every twenty-four hours asneededtadalafil 20 mg Tab 20 mg = 1 tab(s), Oral, As Directed, PRN for erectile dysfunction, Pt to take one tab 1 hour prior to sexual activity. Do not exceed 20mg in 24 hours., # 30 tab(s), Refills(s) 0, Pharmacy: [facility], 165, cm, 01/07/25 15:55:00 EDT, Height/Length Dosing, 108, kg,01/07/25 15:55:00 EDT, Weight Dosing Start Date: 01/07/25 Status: Ordered Quantity: 30.0 Unit: tab(s) Repeat number: 1 Indications: Male erectile dysfunction, unspecified;Start: 13-90-4119pgjh 1 tablet by mouth every hour as needed, then take 1 tablet by mouth every twenty- four hours asneededtadalafil 20 mg Tab 20 mg = 1 tab(s), Oral, As Directed, PRN for erectile dysfunction, Pt to take one tab 1 hour prior to sexual activity. Do not exceed 20mg in 24 hours., # 30 tab(s), Refills(s) 0, Pharmacy: [facility], 165, cm, 09/10/24 15:33:00 EDT, Height/Length Dosing, 108, kg,09/10/24 15:33:00 EDT, Weight Dosing Start Date: 12/11/24 Status: Ordered Quantity: 30.0 Unit: tab(s)Repeat number: 1 Indications: Male erectile dysfunction, unspecified;Start: 55-12-7256jmor 1 tablet by mouth every hour as needed, then take 1 tablet by mouth every twenty-four hours asneededtadalafil 20 mg Tab 20 mg = 1 tab(s), Oral, As Directed, PRN for erectile dysfunction, Pt to take one tab 1 hour prior to sexual activity. Do not exceed 20mg in 24 hours., # 30 tab(s), Refills(s) 0, Pharmacy: [facility], 165, cm, 09/10/24 15:33:00 EDT, Height/Length Dosing, 108, kg,09/10/24 15:33:00 EDT, Weight Dosing Start Date: 09/10/24 Status: Ordered Quantity: 30.0 Unit: tab(s) Repeat number: 1 Indications: Male erectile dysfunction, unspecified;Start: 39-92-9415gmcl 1 tablet by mouth every hour as needed, then take 1 tablet by mouth every twenty-four hours asneededtadalafil 20 mg Tab 20 mg = 1 tab(s), Oral, As Directed, PRN for erectile dysfunction, Pt to take one tab 1 hour prior to sexual activity. Do not exceed 20mg in 24 hours., # 30 tab(s), Refills(s) 0, Pharmacy: [facility], 165, cm, 05/07/24 9:19:00 EST, Height/Length Dosing, 108.1, kg, 05/07/24 9:19:00 EST, Weight Dosing Start Date: 05/07/24 Status: Ordered Problems Active Problems Problem ClassificationProblemDateDocumented DateEpisodic/ChronicDeficiency and other anemia (15 sources)Anemia of chronic pisgskr03-36-6402MtcfygiYaisbozau of lipid metabolism (16 sources)Pure hyperglyceridemia; Translations: [Pure hyperglyceridemia]Onset: 88-59-7632QhtzlorSpuzlzudex disorders (17 sources)Gastroesophageal reflux disease without esophagitis; Translations: [Gastro-esophageal reflux disease without esophagitis]Onset: 62-97-3486Wfojkxm Essential hypertension (15 sources)Benign uiedenlvujvs73-49-1807UcelqemUaovbmeuvdxjfsim hemorrhage (10 sources)Melena; Translations: [Melena]Onset: 97-07-8785YpsdwmegYaodmvbgvsv of prostate (14 sources)Benign prostatic hypertrophy with outflow obstruction; Translations: [Benign prostatic hyperplasia with lower urinary tract symptoms]Onset: 94-40-2239HezoeaeMzcljoj and fatigue (4 sources)Other fatigue; Translations: [OTHER FATIGUE]Onset: 39-62-8569Ibxhljzv Miscellaneous mental health disorders (20 sources)Psychosomatic factor in physical condition; Translations: [Psychological and behavioral factors associated with disorders or diseases classified elsewhere]Onset: 27-41-6555SrhalunZobzu and unspecified benign neoplasm (10 sources)Polyp of colon; Translations: [Polyp of colon]Onset: 05-21-2024 EpisodicOther connective tissue disease (2 sources)Neuralgia; Translations: [Neuralgia and neuritis, unspecified] 29-03-4141CvieilamCwiix endocrine disorders (3 sources)Testicular hypofunction; Translations: [Testicular hypofunction] Onset: 58-09-1405BmhpurkTkfte endocrine disorders (11 sources)Male vtjsvgrudtgc53-22-9422GgpqlrrLkjhp gastrointestinal disorders (11 sources)Irritable bowel syndrome with diarrhea; Translations: [Irritable bowel syndrome with diarrhea]Onset: 90-99-0206EimgwoyZcpil gastrointestinal disorders (2 sources)Swollen abdomen; Translations: [Abdominal distension (gaseous)]Onset: 75-53-9927DrgtdpjeTrjma gastrointestinal disorders (15 sources)Abdominal pldcaqxj04-00-5287BryfzvhsUttzh gastrointestinal disorders (15 sources)Black iojgf04-48-0530RuizpuedGhmdk liver diseases (10 sources)Steatosis of liver; Translations: [Fatty (change of) liver, not elsewhere classified]Onset: 41-94-2119EnthgbkMqxdb male genital disorders (12 sources)Acquired buried penis; 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]Onset: 25-09-5877GybgjyvQlith male genital disorders (14 sources)Male erectile dysfunction, unspecified; Translations: [Erectile dysfunction]Onset: 55-56-3516BeyrjthLjvmr nutritional; endocrine; and metabolic disorders (1 source)Obesity; Translations: [Other obesity due to excess calories]Onset: 69-72-5304RgfwduwNcsvi nutritional; endocrine; and metabolic disorders (15 sources)Obesity caused by energy tvfdxajuf92-33-1903OqvixtuTjxgo screening for suspected conditions (not mental disorders or infectious disease) (18 sources)Encounter for screening for malignant neoplasm of prostate; Translations: [Thyroid function tests abnormal]Onset: EpisodicResidual codes; unclassified (1 source)Idiopathic hypersomnia with long sleep time; Translations: [IDIO HYPERSOMNIA W/LONG SLEEP TIME]Onset: 41-80-9500RcwusakFhkinntj codes; unclassified (4 sources)Obstructive sleep apnea (adult) (pediatric); Translations: [OBSTRUCTIVE SLEEP APNEA]Onset: 32-52-6827ZfhiegdPdkcdddz codes; unclassified (2 sources)Patient encounter status; Translations: [Other specified health status]Onset: 35-44-7406NqqzhbdkOtozfnwk codes; unclassified (15 sources)Current pckkkeg74-35-9363FgqbysgiDiyxcxiwkvg; intervertebral disc disorders; other back problems (3 sources)Lumbar radiculopathy; Translations: [Radiculopathy, lumbar region] 16-08-5704DnmsaijsGluifhk disorders (5 sources)Hypothyroidism, unspecified; Translations: [HYPOTHYROIDISM UNSPECIFIED]Onset: 49-71-4218KciwpnrYilhxyiaajcq (11 sources)Patient encounter zqxbyx64-66-4388 Past or Other Problems Problem ClassificationProblemDateDocumented DateEpisodic/ChronicOther connective tissue disease (20 sources)Swelling of hand; Translations: [Other specified soft tissue disorders]Onset: 343100-32-8902FkezdtznRvnch non-traumatic joint disorders (20 sources)Stiffness of joint of right hand; Translations: [Stiffness of right hand, not elsewhere classified]Onset: 473127-33-3263Kqpthiad Results Test NameValueInterpretationReference RangeFacilityProvider Letteron 02-15-2025 Provider LetterProvider Letter February 15, 2025 TATE ENCARNACION [address] [place] [id number] : 1970 Dear Tate, We have been trying to reach you with no success. Please call our office at [phone] to schedule a EGD & Velacure. Thank you for your prompt attention to this matter. Sincerely, [facility] CenterReminderson 02-15-2025 RemindersReminders From: Gina Barbosa To: Cheryl Christian; Gina [...] asking patient to call back to schedule. I called patient & left message to see if he still wants these to be together. Sending unable to reach letter.[facility]Amb[facility] Summaryon 98-17-4602Vhemktfjsb Visit SummaryAmbulatory Visit Summary TATE ENCARNACION :1970 Visit Date:02/06/2025 Ambulatory Visit Instructions Your Diagnosis Hypogonadism male [...] capsule) tadalafil (tadalafil 20 mg Tab) testosterone (Depo-Testosterone 200 mg/mL intramuscular solution) Procedures Performed Colonoscopy (05/11/2024), Esophagogastroduodenoscopy (05/11/2024). What to do next Scheduled Follow-Up Appointments Tuesday 8:00 AM EST Where: [facility] [address] [address]- Tuesday 8:00 AM EST Where: [facility] [address] [place] [address]- Medications What How Much When Why Instructions Unchanged cholecalciferol (Vitamin D3 50 mcg (2000 intl units) oral tablet, chewable) By Mouth Every day Unchanged cholestyramine (cholestyramine 4 g/ 9 g Oral Pwdr) 4 Gram By Mouth 2 times a day Unchanged cholestyramine (Questran 4 g/ 9 g oral powder) 1 Packets By Mouth 2 times a day Irritablebowel syndrome with diarrhea Bloating Black stool Chronic [...] Mouth As Directed as needed for for erectiledysfunction ED (erectile dysfunction) Pt to take one tab 1 hour prior to sexual activity. Do not exceed 20mg in 24 hours. Unchanged testosterone (Depo-Testosterone 200 mg/ mL intramuscular solution) 400 Milligram Intramuscular Every 4 weeks Hypogonadism male Inject 400mg IM q 4 weeks Medications and Immunizations Administered Given Depo-Testosterone 200 mg/mL intramuscular solution, 400 mg, IntraMuscular. For: Hypogonadism male Allergies No Known Allergies No [...] signed up for this yet, please contact [employer] at [phone] to get signed up today. Language Information Language assistance services are available as needed. [facility]/Clinic Noteon 62-69-0342Kjckgxw Office/Clinic NoteUrology Office/Clinic Note Chief Complaint 4 month f/u with T-level HPI Staff Pt is a 54 year old male here for follow up with 4 week testosterone injection Patient received Testosterone on 12/11/24 400mg/2ml in Left Glute. Patient tolerated it well. Dx: ED, hypogonadism male, screening PSA, BPH with urinary obstruction and acquired buried penis Cialis 20mg prn PSA done 08/11/24 - 0.44 Testosterone: 08/11/24 - 12/24/24 - 461 IPSS score of 7 today. Frequency and urgency less than half the time. Nocturia x1. Intermittency and weak stream less than 1 in 5x. Denies all other urinary concerns at this time. History of Present Illness Tests reviewed: UA, T level I have reviewed the previous [...] & Measurements T: 37 ???C(Temporal Artery) HR: 68(Peripheral) RR: 16 BP: 137/79 HT: 65 in HT: 165 cm WT: 108 kg WT: 238.099 lb BMI: 39.67 General Appearance: alert, no distress, well nourished, well developed adult. Assessment/Plan 1. Hypogonadism male (E29.1: Testicular hypofunction) Testosterone level (ref range 264- 916): 04/24/24 - 194 08/11/24 - 168 12/11/24 - last inj 12/24/24 - 461 (drawn a day early) Receiving Testosterone IM 400 mg q4wks (last note said pt was to be receiving 500 mg, however pt would only bring enough for 400 mg). T level acceptable for his age, will maintain current dose and frequency. Does feel symptomatic improvement with TRT. Follow up 6 mos with T level or sooner if needed. Pt understands and agrees with plan. -Cont Testosterone IM 400 mg q4wks 2. ED (erectile dysfunction) (N52.9: Male erectile dysfunction, unspecified) SANDRA not completed (18). Cialis 20 mg prn. 3. BPH with urinary obstruction (N40.1: Benign prostatic hyperplasia with lower urinary tract symptoms) PSA: 08/11/24 - 0.44 No fam hx of prostate cancer. [1] UA neg. IPSS 7 (7). No BPH meds. No urinary complaints. Follow-up With When Contact Information AURORA ROMERO, Ji Be, URL [facility] [address] [address]- Additional Instructions: 6 mos with T level (nurse visit, AM) Patient Education Hypogonadism, Male I, Terese Huerta, personally scribed for Dr. Simon on 01/07/2025 16:43:12. . Documentation recorded by the scribe, Terese Huerta, accurately reflects the services(s) I performed and decisions made by me. Authenticated by Dr. Simon on 01/07/2025 16:44:49. Problem List/Past Medical History Ongoing Acquired buried [...] capsule, 2 cap(s), Oral, TID, 3 refills Depo-Testosterone 200 mg/mL intramuscular solution, 400 mg, IntraMuscular, q4wk, 2 refills Fish Oil, Oral levothyroxine, Daily omeprazole 40 mg Cap-DR, 40 mg= 1 cap(s), Oral, BID, 3 refills Prozac, 20 mg, Oral, Daily Questran 4 g/9 g oral powder, 1 packet(s), Oral, BID tadalafil 20 mg Tab, 20 mg= 1 tab(s), Oral, As Directed, PRN testosterone cypionate 200 mg/mL IM Claribel, 400 mg, IntraMuscular, q4wk, 3 refills Vascepa 1 g oral capsule, Oral, BID Vitamin D3 50 mcg (2000 intl units) oral tablet, chewable, Oral, Daily Allergies No Known Allergies No Known Medication Allergies Social History Alcohol Current. Beer. 3-5 times per week., 09/09/2024 Current. Beer. Daily., 04/21/2024 Substance Abuse Current. Marijuana. Daily. Previous treatment: None., 01/02/2025 Never., 04/21/2024 Tobacco Never (less than 100 in lifetime), Chewing tobacco Tobacco Us (more content not included)...NormalSumma Health Barberton CampusComment on above:Result Comment: Electronically Signed By: Ji SIMON MD\.br\Date and Time Signed: 01/07/25 16:44 EDT\.br\Electronically Co-Signed By: Terese Huerta\.br\Date and Time Co-Signed: 01/07/25 16:43 EDTTestost Totalon 99-89-5908Fjmpbjzun Ayd690 ng/dLInvalid Interpretation [id number] Health Barberton CampusComment on above:Result Comment: Adult male reference interval is based on a population of healthy nonobese males (BMI <30) between 19 and 39 years old. gus Levy.al. JCEM 2017,102;[id number]. PMID: [id number]. Performed at: [facility] [id number] PhD Franklin PollardPerformed By: #### [id number] #### [facility] [address], [place] [address]Bfebmgryne Visit Summaryon 49-45-2274Yjwwdawnhj Visit Summary Ambulatory Visit Summary TATE ENCARNACION [...] ROMERO, Ji Be Where: [facility] [address] [address]- Medications What How Much When Why Instructions Unchanged cholecalciferol (Vitamin D3 50 mcg (2000 intl units) oral tablet, chewable) By Mouth Every day Unchanged cholestyramine (cholestyramine 4 g/ 9 g Oral Pwdr) 4 Gram By Mouth 2 times a day Unchanged cholestyramine (Questran 4 g/ 9 g oral powder) 1 Packets By Mouth 2 times a day Irritablebowel syndrome with diarrhea Bloating Black stool Chronic [...] Mouth As Directed as needed for for erectiledysfunction ED (erectile dysfunction) Pt to take one tab 1 hour prior to sexual activity. Do not exceed 20mg in 24 hours. Unchanged testosterone (testosterone cypionate 200 mg/ mL IM Claribel) 400 Milligram Intramuscular Every4 weeks Hypogonadism male Allergies No Known Allergies [...] signed up for this yet, please contact [employer] at [phone] to get signed up today. Language Information Language assistance services are available as needed. [facility] Summaryon [id number] Visit SummaryAmbulatory Visit Summary SHASHANK TATE Hoa :1970 Visit Date:12/11/2024 Ambulatory Visit Instructions Your [...] AM EDT With: Where: [facility] [address] [address]- Tuesday 3:15 PM EDT With: AURORA ROMERO, Ji Be Where: [facility] [address] [address]- Medications What How Much When Why Instructions Unchanged cholecalciferol (Vitamin D3 50 mcg (2000 intl units) oral tablet, chewable) By Mouth Every day Unchanged cholestyramine (cholestyramine 4 g/ 9 g Oral Pwdr) 4 Gram By Mouth 2 times a day Unchanged cholestyramine (Questran 4 g/ 9 g oral powder) 1 Packets By Mouth 2 times a day Irritablebowel syndrome with diarrhea Bloating Black stool Chronic [...] Mouth As Directed as needed for for erectiledysfunction ED (erectile dysfunction) Pt to take one tab 1 hour prior to sexual activity. Do not exceed 20mg in 24 hours. Unchanged testosterone (testosterone cypionate 200 mg/ mL IM Claribel) 400 Milligram Intramuscular Every4 weeks Hypogonadism male Allergies No Known Allergies [...] signed up for this yet, please contact [employer] at [phone] to get signed up today. Language Information Language assistance services are available as needed. [facility] Summaryon [id number] Visit SummaryAmbulatory Visit Summary TATE ENCARNACION :1970 Visit Date:10/15/2024 [...] Packets By Mouth 2 times a day Irritablebowel syndrome with diarrhea Bloating Black stool Chronic [...] Mouth As Directed as needed for for erectiledysfunction ED (erectile dysfunction) Pt to take one [...] signed up for this yet, please contact [employer] at [phone] to get signed up today. Language Information Language assistance services are available as needed. [facility] Summaryon [id number] Visit SummaryAmbulatory Visit Summary TATE ENCARNACION :1970 Visit Date:09/14/2024 [...] Packets By Mouth 2 times a day Irritablebowel syndrome with diarrhea Bloating Black stool Chronic [...] Mouth As Directed as needed for for erectiledysfunction ED (erectile dysfunction) Pt to take one [...] you for choosing us for your care. [facility] Summaryon [id number] Visit SummaryAmbulatory Visit Summary TATE ENCARNACION :1970 Visit Date:09/10/2024 [...] Where: [facility] [address] , [place] [phone] Medications What How Much When Why Instructions Unchanged tadalafil (tadalafil 20 mg Tab) 1 Tablets By Mouth As Directed as needed for for erectiledysfunction ED (erectile dysfunction) Pt to take one tab 1 hour prior to sexual activity. Do not exceed 20mg in 24 hours. Pickup at [facility] Unchanged cholecalciferol (Vitamin D3 50 mcg [...] Packets By Mouth 2 times a day Irritablebowel syndrome with diarrhea Bloating Black stool Chronic GERD Contact prescribing physician if questions or concerns Unchanged fluoxetine (Prozac) 20 Milligram By Mouth Every day Contact prescribing physician if questions or concerns Unchanged icosapent (Vascepa 1 g oral capsule) By Mouth 2 times a day Contact prescribing physicianif questions or concerns Unchanged levothyroxine Every day [...] physician if questions or concerns Pharmacy Information [facility]: [address] [place], [place] [id number] [phone] Allergies No Known Allergies No Known Medication [...] testicles make less testosteron (more content not included)...[facility] Office/Clinic Noteon [id number] Office/Clinic NoteUrology Office/Clinic Note Chief Complaint 4 month with [...] level (ref range 264- [phone]): 04/24/24 - 08/11/22 - Recent T level is low. States he is now receiving T 200 mg inj q2wks per Kira Garrison NP. Has received 6 inj so far and is due for another this . States he never used Androgel despite beingrx'd this at last OV. Used GoodRx but [...] -Cont Cialis wo changes. Refills sent to [facility]. 3. BPH with urinary obstruction (N40.1: Benign prostatic hyperplasia with lower urinary tract symptoms) IPSS 7 (8). UA today negative for blood and infection. Not taking any BPH meds. Not voicing any urinary habit complaints. 4. Screening PSA (prostate specific antigen) (Z12.5: Encounter for screening for malignant neoplasmof prostate) PSA 08/11/24 - 0.44 No fam hx of prostate cancer. PSA is low. Will cont to monitor. Follow-up With When Contact Information AURORA ROMERO, Ji Be, URL [facility] [address], [place] [address]- [phone] Additional Instructions: 4 mos w/ T level [...] chewable, Oral, Daily Von (more content not included)...[facility] HospitalComment on above:Result Comment: Electronically Signed By: Ji SIMON MD\.br\Date and Time Signed: 09/10/24 16:19 EDT\.br\Electronically Co-Signed By: Nirmala Lama.br\Date and Time Co-Signed: 09/10/24 16:16 EDTReminderson [id number] Reminders From: Cheryl Christian To: Gina Barbosa; [...] to schedule all three at the same time.[facility] Office/Clinic Noteon [id number] Office/Clinic NoteGastroenterology Office/Clinic Note Chief Complaint Diarrhea improved HPI [...] since then, past history of drinking about a6 pack a day Was having over 10 [...] first-degree relative, we will send him to [facility] for genetic counseling the based on [...] virus vaccine, inactivated - Not Given Patient RefusesNormalFishBaltimore VA Medical CenterComment on above:Result Comment: Electronically Signed By: Lesley ROMERO, González Cadena\.br\Date and Time Signed: 08/16/24 14:02 EDT\.br\Electronically Co-Signed By: Syeda Chavez MA\.br\Date and Time Co- Signed: 08/16/24 13:53 EDTAmbulatory Visit Summaryon [id number] Visit SummaryAmbulatory Visit Summary TATE ENCARNACION :1970 Visit Date:07/17/2024 [...] Follow-Up Appointments Tuesday 9:45 AM EDT With: Ji SIMON MD Where: [facility] [place] [id number]- Medications What How Much When Why Instructions Changed pancrelipase (Creon 36,000 units oral delayed release capsule) 2 Capsules By Mouth 3 times a day Pickup at [facility] Unchanged cholecalciferol (Vitamin D3 50 mcg [...] Packets By Mouth 2 times a day Irritablebowel syndrome with diarrhea Bloating Black stool Chronic GERD Contact prescribing physician if questions or concerns Unchanged fluoxetine (Prozac) 20 Milligram By Mouth Every day Contact prescribing physician if questions or concerns Unchanged icosapent (Vascepa 1 g oral capsule) By Mouth 2 times a day Contact prescribing physicianif questions or concerns Unchanged levothyroxine Every day Contact prescribing physician if questions or concerns Unchanged omeprazole (omeprazole 40 mg Cap-DR) 1 Capsules By Mouth 2 times a day Contact prescribing physician if questions or concerns Unchanged tadalafil (tadalafil 20 mg Tab) 1 Tablets By Mouth As Directed as needed for for erectiledysfunction Pt to take one tab 1 hour prior to sexual activity. Do not exceed 20mg in 24 hours. Contact prescribing physician if questions or concerns Pharmacy Information [facility]: [address] [place], [place] [id number] [phone] Allergies No Known Allergies No Known Medication [...] you for choosing us for your care. [facility] Office/Clinic Noteon [id number] Office/Clinic NoteGastroenterology Office/Clinic Note Chief Complaint diarrhea and blood [...] since then, past history of drinking about a6 pack a day Having over 10 BMs [...] [facility] In 6 weeks [address], [address] [phone] Additional Instructions: Problem List/Past Medical History Ongoing [...] tobacco Tobacco Use:. Smokeless tobacco user within last30 days Smokeless Tobacco Use:. Oral, 05/07/2024 Family History Diabetes mellitus: Father. Hypertension: Father. Immunizations Vaccine Date Status Comments influenza virus vaccine, inactivated - Not Given Patient RefusesToledo HospitalComment on above:Result Comment: Electronically Signed By: Lesley ROMERO, González Cadena\.br\Date and Time Signed: 07/17/24 13:53 EDT\.br\Electronically Co-Signed By: Syeda Chavez MA\.br\Date and Time Co- Signed: 07/17/24 13:51 EDTReminderson [id number] From: Glo Hilario I To: [facility] - Reminders/Recalls; Sent: 06/05/2024 08:25:46 EST Show up: 03/11/2031 08:25:00 EST Subject: Colonoscopy recall Due Date/Time: 05/11/2031 08:25:00 EST Reminder/Recall [address] Sutton 05/11/24[facility] HospitalG[facility]ology Office/Clinic Noteon [id number] Office/Clinic NoteGastroenterology Office/Clinic Note Chief Complaint follow up to [...] WITH PRESERVED VILLOUS ARCHITECTURE AND NO SIGNIFICANT DIAGNOSTICCHANGE B: ESOPHAGUS, BIOPSY: ??? REACTIVE SQUAMOUS MUCOSA [...] . Documentation recorded by (more content not included)...[facility] HospitalComment on above:Result Comment: Electronically Signed By: González Sutton MD\.br\Date and Time Signed: 05/21/24 09:44 EST\.br\Electronically Co-Signed By: Syeda Chavez MA\.br\Date and Time Co- Signed: 05/21/24 09:42 ESTSurgical Pathology Reporton [id number] Pathology ReportDebbie Ville [address] [place] [address]- Surgical Pathology Report Collected Date/Time: 05/11/2024 08:38 [...] recognition technology and might contain unintended computerized refrigerating machine operator errors. The use of one or more reagents in the above tests is regulated as an analyte specific reagent (ASR). The test or tests are ordered following initial H&E microscopic examination. The performance characteristics were determined by the [facility]. They have not been cleared or approved by the US Food and Drug Administration. The FDA has determined that such clearance or approval is not necessary. These tests are used for clinical purposes. They should not be regarded as investigational or for research. Appropriate positive and negative co (more content not included)...[facility] Comment on above:Performed By: #### [id number] #### [facility] [address], [place] [address]Gvirxsngr Instructionson [id number] Instructions Discharge Instructions TATE ENCARNACION :1970 Visit [...] EST With: Lesley ROMERO, González Cadena Where: [facility] [address] [facility] [facility] [place] [address] [place] [address]- Tuesday. 2024 9:45 AM EDT With: AURORA ROMERO, Ji Be Where: [facility] [address] [place] [address]- Medications What How Much When Why Instructions Next Dose New omeprazole (omeprazole 40 mg Cap-DR) 1 Capsules By Mouth 2 times a day Refills: 3 Pickup at [facility] Unchanged cholecalciferol (Vitamin D3 50 mcg (2000 intl units) oral tablet, chewable) By Mouth Every day Unchanged cholestyramine (Questran 4 g/ 9 g oral powder) 1 Packets By Mouth 2 times a day Irritablebowel syndrome with diarrhea Bloating Black stool Chronic [...] Mouth As Directed as needed for for erectiledysfunction Pt to take one tab 1 hour prior to sexual activity. Do not exceed 20mg in 24 hours. Unchanged testosterone (AndroGel Pump 20.25 mg/ 1.25 g (1.62%) transdermal gel) 2 Pump Topical Oncea day (in the morning) Pharmacy Information [facility]: [address] [place] [id number] [phone] Test Results No qualifying data available. Allergies [...] ??? Black, tarry stool (more content not included)...[facility] HospitalComment on above:Result Comment: Electronically Signed By: Mariama Benoit RN\.jeaneth\Date and Time Signed: 05/11/24 09:44 ESTDischarge Instructions Discharge Instructions TATE ENCARNACION :1970 Visit [...] EST With: Lesley ROMERO, González Cadena Where: [facility] [address] [place] [address] [address] [address]- Tuesday 9:45 AM EDT With: AURORA ROMERO, Ji Be Where: [facility] [address] [address]- Medications What How Much When Why Instructions Next Dose New omeprazole (omeprazole 40 mg Cap-DR) 1 Capsules By Mouth 2 times a day Refills: 3 Pickup at [facility] Unchanged cholecalciferol (Vitamin D3 50 mcg (2000 intl units) oral tablet, chewable) By Mouth Every day Unchanged cholestyramine (Questran 4 g/ 9 g oral powder) 1 Packets By Mouth 2 times a day Irritablebowel syndrome with diarrhea Bloating Black stool Chronic [...] Mouth As Directed as needed for for erectiledysfunction Pt to take one tab 1 hour prior to sexual activity. Do not exceed 20mg in 24 hours. Unchanged testosterone (AndroGel Pump 20.25 mg/ 1.25 g (1.62%) transdermal gel) 2 Pump Topical Oncea day (in the morning) Pharmacy Information [facility]: [address] [place] [id number] [phone] Test Results No qualifying data available. Allergies [...] Malt flavoring, malt extra (more content not included)...NormalSumma Health Barberton CampusComment on above:Result Comment: Electronically Signed By: Cy SADLER, Mariama\.br\Date and Time Signed: 05/11/24 09:30 ESTMain OR Intraoperative Recordon [id number] OR Intraoperative RecordMain OR Intraoperative Record IntraOp Document Type FT Summary Primary Physician: Lesley ROMERO, González Cadena Finalized Date/Time: 05/11/24 10:41:05 Pt. Name: TATE ENCARNACIONO.B./Sex: 1970 Male Med Rec #: [id number] Physician: Jackelyn ROMERO, Alejandra Kelly Financial #: [id number] Pt. 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 Tay supervising Last Modified By: Penelope RN, Becky Negrete RN, Becky Negrete RN, Becky 05/11/24 09:08:58 05/11/24 09:08:58 05/11/24 09:08:58 Entry 4 Entry 5 Case Attendee Ty [facility], Kimberly SarminGonzález sherwood MD Role Performed Staff - Other Surgeon - [...] and tissue Entry 1 Skin Integrity Intact, [place], Warm, & Skin Abnormality No Dry Outcomes Met? Yes Last Modified By: Becky Negrete RN 05/11/24 09:06:34 Post-Care Text: The patient is free from signs and sym (more content not included)...Normal [facility] CampusMain OR PACU II Recordon [id number] OR PACU II RecordMain OR PACU II Record PACU Phase II Document Type FT Summary Primary Physician: González Sutton MD Finalized Date/Time: 05/11/24 10:02:45 Pt. Name: TATE ENCARNACION/Sex: 1970 Male Med Rec #: [id number] Physician: Alejandra Hayden MD Financial #: [id number] Pt. Type: O Room/Bed: / Admit/Disch: 05/11/24 [...] and monitors body temperature Evaluates postoperative respiratory statusEvaluates postoperative cardiac status Evaluates postoperative neurological status [...] individualized perioperative plan of care The patient's rightto privacy is maintained The patient's value system, [...] with or improved from baseline levels established preoperativelyThe patient's cardiovascular status is consistent with or improved from baseline levels established preoperatively The patient's neurological status is consistent with or improved from baseline levels established preoperatively The patient demonstrates and/or reports adequate pain control throughout the perioperative period The patient received appropriate medication(s), safely administered during the perioperativeperiod Finalized By: Mariama Benoit RN Document Signatures Signed By: Mariama Benoit RN 05/11/24 10:02[facility] HospitalMain OR Preoperative Recordon [id number] OR Preoperative RecordMain OR Preoperative Record Holding Area Document Type FT Summary Primary Physician: González Sutton MD Finalized Date/Time: 05/11/24 07:18:36 Pt. Name: TATE ENCARNACION/Sex: 1970 Male Med Rec #: [id number] Physician: Alejandra Hayden MD Financial #: [id number] Pt. Type: O Room/Bed: / Admit/Disch: 05/11/24 [...] or her perioperative plan of care The patient'sright to privacy is maintained Surgery Checklist FT [...] Signatures Signed By: Rachel Cortez RN 05/11/24 07:18[facility] Visit Summaryon [id number] Visit SummaryAmbulatory Visit Summary TATE ENCARNACION :1970 Visit Date:05/07/2024 Ambulatory Visit Instructions Your Diagnosis ED (erectile dysfunction) Hypogonadism male Screening PSA (prostate specific antigen) BPH with urinary obstruction Acquired buried penis Your Care Team Attending Physician - AURORA ROMERO, Ji Be Primary Care Physician - MELI HORNER, KIRA S Referring Physician - Jackelyn ROMERO, Alejandra Kelly [...] With: Where: [facility] Tuesday 9:00 AM EST With: Lesley ROMERO, González Cadena Where: [facility] [address] [place] [address]- Tuesday 9:45 AM EDT With: Ji SIMON MD Where: [facility] [address] [id number]- You Need to Schedule the Following Appointments Follow Up with Ji SIMON MD, URL When: Comments: 4 mos w/ PSA and T level Where: [facility] [address], [place] [phone] Medications What How Much When Why Instructions New tadalafil (tadalafil 20 mg Tab) 1 Tablets By Mouth As Directed as needed for for erectile dysfunction Pt to take one tab 1 hour prior to sexual activity. Do not exceed 20mg in 24 hours. [facility]up [facility] New testosterone (AndroGel Pump 20.25 mg/ 1.25 g (1.62%) transdermal gel) 2 Pump Topical Once a day(in the morning) Refills: 3 Pickup at [facility] Unchanged cholecalciferol (Vitamin D3 50 mcg (2000 intl units) oral tablet, chewable) By Mouth Every day Contact prescribing physician if questions or concerns Unchanged cholestyramine (Questran 4 g/ 9 g oral powder) 1 Packets By Mouth 2 times a day Irritablebowel syndrome with diarrhea Bloating Black stool Chronic GERD Contact prescribing physician if questions or concerns Unchanged fluoxetine (Prozac) 20 Milligram By Mouth Every day Contact prescribing physician if questions or concerns Unchanged icosapent (Vascepa 1 g oral capsule) By Mouth 2 times a day Contact prescribing physicianif questions or concerns Unchanged levothyroxine Every day Contact prescribing physician if questions or concerns Unchanged pancrelipase (Zenpep 60,000 units-189,600 units-252,600 units oral delayed release capsule) See instructions Take 2 caps with each meal and 1 with each snack Contact prescribing physician if questions or concerns Pharmacy Information [facility]: [address] [place], [place] [id number] [phone] Allergies No Known Allergies No Known Medication [...] Testosterone also gives men (more content not included)...[facility] HospitalU[facility] Office/Clinic Noteon [id number] Office/Clinic Note Urology Office/Clinic Note Chief Complaint [...] -Start Cialis 20mg prn. Rx sent to [facility]. Recommended GoodRx. 2. Hypogonadism male (E29.1: [...] testosterone in the system is not a g uarantee that erections and sexual function will improve and we will be monitoring his response to therapy in regard to increased energy and sense of well being. All his questions were answered. He wishes to proceed with testosterone replacement therapy. -Start Androgel 2 pumps daily. Rx sent to [facility]. Recommended GoodRx. -F/u in 4 mos w/ T level. Pt aware blood draw needs completed prior to 10am. 3. Screening PSA (prostate specific antigen) (Z12.5: Encounter for screening for malignant neoplasmof prostate) No PSA level on record. Denies fam hx of prostate cancer. Recommended pt to get this done. -Obtain PSA level prior to f/u 4. BPH with urinary obstruction (N40.1: Benign prostatic hyperplasia with lower urinary tract symptoms) IPSS 8. No sample provided for UA today. Reports occasional frequency. Does not feel urinary habitsare very bothersome. -Cont sx monitoring 5. Acquired buried peni (more content not included)...NormalSumma Health Barberton CampusComment on above:Result Comment: Electronically Signed By: Ji SIMON MD\.br\Date and Time Signed: 05/07/24 10:05 EST\.br\Electronically Co- Signed By: Nirmala Lama\.br\Date and Time Co-Signed: 05/07/24 09:58 EST Calprotectin, Fecalon [id number] (Stl) [Mass/Mass]15 mcg/gmInvalid Interpretation Code0-120[facility] CampusComment on above:Result Comment: Concentration Interpretation Follow-Up < 5 - 50 ug/g Normal None >50 -120 ug/g Borderline Re-evaluate in 4-6 weeks >120 ug/g Abnormal Repeat as clinically indicated Performed at: [facility] [place] [address] [place], [place] [id number] MD Alfredo Wetzelformed By: #### [id number] #### [facility] [address], [place] [address]Cumpfyssvg Elastase, Fecalon [id number].pancreatic (Stl) [Mass/Mass]9Low>200[facility] CampusComment on above:Result Comment: Severe Pancreatic Insufficiency: <100 Moderate Pancreatic Insufficiency: 100 - 200 Normal: >200 Performed at: [facility] [address] [place], [place] [id number] MD Alfredo Wetzelformed By: #### [id number] ####[facility] [address], [id number] Abdomen, Limitedon [id number] Abdomen, LimitedExam Date/Time: 04/26/2024 09:07 EST Reason for Exam: [...] MD Transcribed by: MARIA C Technologist: Eric YINGSumma Health Barberton CampusCelia Disease Comprehensive [id number] IgA Ql (S)NegativeInvalid Interpretation CodeNegativeSumma Health Barberton CampusComment on above:Result Comment: Serum is slightly lipemic.Performed By: #### [id number] #### [facility] [address], [place] [address]Opxsvol peptide IgA Qn (S)4 unit(s)Invalid Interpretation Code 0-19[facility] CampusComment on above:Result Comment: Negative 0 - 19 Weak Positive 20 - 30 Moderate to Strong Positive >30Performed By: #### [id number] #### [facility] [address], [place] [address]Hrthhor peptide IgG Qn (S)2 unit(s)Invalid Interpretation Code 0-19[facility] CampusComment on above:Result Comment: Negative 0 - 19 Weak Positive 20 - 30 Moderate to Strong Positive >30Performed By: #### [id number] #### [facility] [address], [place] [address]VxI [Mass/Vol]213 mg/dLInvalid Interpretation Kgqd24-644VuywxgSumma Health Barberton CampusComment on above:Result Comment: Performed at: [address] [id number] PhD Franklin PollardPerformed By: #### [id number] #### [facility] [address], [place] [address]pCJ IgA Qn (S)<2Invalid Interpretation Code0-3FBarnesville HospitalComment on above:Result Comment: Negative 0 - 3 Weak Positive 4 - 10 Positive >10 Tissue Transglutaminase (tTG) has been identified as the endomysial antigen. Studies have demonstr- ated that endomysial IgA antibodies have over 99% specificity for gluten sensitive enteropathy.Performed By: #### [id number] #### [facility] [address], [place] [address]wXR IgG Qn (S)<2Invalid Interpretation Code0-5FBarnesville HospitalComment on above:Result Comment: Negative 0 - 5 Weak Positive 6 - 9 Positive >9Performed By: #### [id number] #### [facility] [address], [place] [address]Psckccc Totalon 23-91-5486Nyheklpjjheb [Mass/Vol]194 ng/dLLow 264-916[facility] CampusComment on above:Result Comment: Adult male reference interval is based on a population of healthy nonobese males (BMI <30) between 19 and 39 years old. Mildred et.al. JCEM 2017,102;2776-6742. PMID: [id number]. Performed at: [facility] [id number] PhD Franklin Basurtoformed By: #### [id number] #### [facility] [address], [place] [address]Erqwmfskgk Visit Summaryon 75-85-4779Bcvgzpyyob Visit Summary Ambulatory Visit Summary TATE ENCARNACION [...] AM EST With: Alejandra Hayden MD Where: [facility] [address] [place], [place] [id number]- You Need to Complete the Following C-Reactive [...] Order for future visit, Lab Collect, Irritable bowelsyndrome with diarrhea Bloating Black stool Chronic GERD, [...] Order for future visit, Transport Mode: Ambulatory, Reason:Abdominal pain, No, Irritable bowel syndrome with diarrhea Bloating Black stool Chronic GERD Decreased sexual desire, pp_set_radiology_subspecialty, Gonzales - Joshua Medications What How Much When Why Instructions New cholestyramine (Questran 4 g/ 9 g oral powder) 1 Packets By Mouth 2 times a day Irritable bowelsyndrome with diarrhea Bloating Black stool Chronic GERD Pickup at [facility] Unchanged cholecalciferol (Vitamin D3 50 mcg (2000 intl units) oral tablet, chewable) By Mouth Every day Contact prescribing physician if questions or concerns Unchanged fluoxetine (Prozac) 20 Milligram By Mouth Every day Contact prescribing physician if questions or concerns Unchanged icosapent (Vascepa 1 g oral capsule) By Mouth 2 times a day Contact prescribing physicianif questions or concerns Unchanged levothyroxine Every day Contact prescribing physician if questions or concerns Pharmacy Information [facility]: [address] [place], [place] [id number] [phone] Medications and Immunizations Administered Not Given influenza [...] you for choosing us for your care. NormalSumma Health Barberton CampusCHEMISTRYOrdered By: SYSTEM SYSTEM on 11-21-6053CVK [Mass/Vol]0.2 mg/dLNormal<=1.9mg/dLRemisol ChemCRPon 86-11-8149WYK [Mass/Vol]0.2 mg/dLNormal<=1.9[facility] CampusComment on above:Performed By: #### [id number] #### [facility] [address], [place] [address]Sxmbycbdpfdvoajl Office/Clinic Noteon 04-24-2024 Gastroenterology Office/Clinic NoteGastroenterology Office/Clinic Note Chief Complaint Alternating bowels and [...] BID, # 60 EA, Refills(s) 0, Pharmacy: [facility], 170, cm, 04/24/24 8:57:00 EST, Height/Length Dosing, 108.6, kg, 04/24/24 8:57:00 EST, Weight Dosing C-Reactive Protein Calprotectin, Fecal Celiac Disease Comprehensive Colonoscopy (Hospital Procedure) EGD Endoscopy (Hospital Procedure) IgA, Quant. Pancreatic Elastase, Fecal Pancreatic Elastase, Fecal Testosterone Level Total US Abdomen, Limited 2. Bloating (R14.0: Abdominal distension (gaseous)) Ordered: cholestyramine, = 1 packet(s), Oral, BID, # 60 EA, Refills(s) 0, Pharmacy: [facility], 170, cm, 04/24/24 8:57:00 EST, Height/Length Dosing, 108.6, kg, 04/24/24 8:57:00 EST, Weight Dosing C-Reactive Protein Calprotectin, Fecal Celiac Disease Comprehensive Colonoscopy (Hospital Procedure) EGD Endoscopy (Hospital Procedure) IgA, Quant. Pancreatic Elastase, Fecal Pancreatic Elastase, Fecal Testosterone Level Total US Abdomen, Limited 3. Black stool (K92.1: Melena) Ordered: cholestyramine, = 1 packet(s), Oral, BID, # 60 EA, Refills(s) 0, Pharmacy: [facility], 170, cm, 04/24/24 8:57:00 EST, Height/Length [...] BID, # 60 EA, Refills(s) 0, Pharmacy: [facility], 170, cm, 04/24/24 8:57:00 EST, Height/Length Dosing, 108.6, kg, 04/24/24 8:57:00 EST, Weight Dosing C-Reactive Protein Calprotectin, Fecal Celiac Disease Comprehensive Colonoscopy (Hospital Procedure) EGD Endoscopy (Hospital Procedure) IgA, Quant. Pancreatic Elastase, Fecal Pancreatic Elastase, Fecal Testosterone Level Total US Abdomen, Limited 5. Decreased sexual desire (F52.0: Hypoactive sexual desire disorder) Ordered: [facility] Internal Ambulatory Referral Pancreatic Elastase, Fecal Testosterone Level Total US Abdomen, Limited 6. Alcohol drinker (Z78.9: Other specified health status) 7. Stress-related physiological response affecting medical condition (F54: Psychological and behavioral factors associated with disorders or diseases classified elsewhere) 8. High triglycerides (E78.1: Pure hyperglyceridemia) 9. Obesity due to excess calories (E66.09: Ot (more content not included)... [facility] HospitalComment on above:Result Comment: Electronically Signed By: Jackelyn ROMERO, Alejandra Kelly\.br\Date and Time Signed: 04/24/2508:30 EST FREE T3on 56-96-2578R5 free mass conc3.10 pg/mLNormal2.77-5.27The [facility] HospitalComment on above:Performed By: #### BMP, LIVER, FT3, LIPID, PSASC, TSH, DLDL ####[facility] [address] [place] [address] KarenFREE T4on 91-94-6009H1 free mass conc0.88 ng/dLNormal0.78-2.19 The [facility] HospitalComment on above:Performed By: #### BMP, LIVER, FT3, LIPID, PSASC, TSH, DLDL ####[facility] Vegjlpuoas[address] [place] [address] KarenTSHon 80-09-0993Tnjpfnahgfa Qn7.705 uIU/mLCritically high 0.470-4.680The [facility] HospitalComkresge eye institute on above:Performed By: #### BMP, LIVER, FT3, LIPID, PSASC, TSH, DLDL ####[facility] Znfwrkxidp[address] [place] [address] KarenThyrotropin QnSEE BELOWNormalThe [facility] HospitalComment on above:Result Comment: <0.34 UIU/ml HYPERTHYROID 0.34-5.60 UIU/ml EUTHYROID >5.60 UIU/ml HYPOTHYROIDPerformed By: #### BMP, LIVER, FT3, LIPID, PSASC, TSH, DLDL ####[facility] Adlcxmezoc4220 [address] KarenTESTOSTERONE, TOTALon 01-03-2018 Testosterone [Mass/volume] in Serum or Rniwzg854 ng/gFYvaegw012-921Ejk [facility] HospitalComment on above:Result Comment: Adult male reference interval is based on a population ofhealthy nonobese males (BMI <30) between 19 and 39 years old.Mildred, et.al. JCEM 2017,102;6250-2023. PMID: [id number].Performed By: #### BMP, LIVER, FT3, LIPID, PSASC, TSH, DLDL ####[facility] Zzeesgqpnp5346 [address] KarenFREE T3on 71-06-2082I7 free mass conc2.98 pg/mLNormal2.77-5.27The [facility] HospitalComment on above:Performed By: #### BMP, LIVER, FT3, LIPID, PSASC, TSH, DLDL ####[facility] Qunhycdwhm3984 [address] KarenFREE T4on 63-93-4776X9 free mass conc0.89 ng/dLNormal0.78-2.19The [facility] HospitalComment on above:Performed By: #### BMP, LIVER, FT3, LIPID, PSASC, TSH, DLDL ####[facility] Siietgxuji8895 [address] KarenTSHon 64-84-9575Suwlnnzrapq Qn5.999 uIU/mLCritically high0.470-4.680The [facility] HospitalComment on above:Performed By: #### BMP, LIVER, FT3, LIPID, PSASC, TSH, DLDL ####[facility] Izreybcoqe3464 [address] KarenThyrotropin QnSEE BELOWNormalThe [facility] HospitalComment on above:Result Comment: <0.34 UIU/ml HYPERTHYROID 0.34-5.60 UIU/ml EUTHYROID >5.60 UIU/ml HYPOTHYROIDPerformed By: #### BMP, LIVER, FT3, LIPID, PSASC, TSH, DLDL ####[facility] S[address]ybhor[address] [place] [address] KarenCBC AUTO DIFFon 38-89-8952Dycpttgej Auto #/vol (Bld)0.1 103/ul Normal0.0-0.1The [facility] HospitalComment on above:Performed By: #### CBC ####[facility] Emmrctzfpt[address] [place] [address] KarenBasophils/100 WBC Auto (Bld)0.8 %Normal0.2-2.0The [facility] HospitalComment on above:Performed By: #### CBC ####[facility] Dnkigormoi[address] [place] [address] KarenEosinophils Auto #/vol (Bld)0.1 103/ul Normal0.0-0.7The [facility] HospitalComment on above:Performed By: #### CBC ####[facility] Zitungrstk[address] [place] [address] KarenEosinophils/100 WBC Auto (Bld)1.4 %Normal0.9-7.0The [facility] Comment on above:Performed By: #### CBC ####[facility] K[address]ofjfytbd[address] [place] [address] KarenErythrocyte distribution width Auto Ratio (RBC)13.2 %Seuwys44.0-15.0The [facility] HospitalComment on above: Performed By: #### CBC ####[facility] Pzzkg[address]os[address] [place] [address] KarenHematocrit Auto Volume Fraction (Bld)43.7 %Vwaiye99.0-54.0The [facility] HospitalComment on above:Performed By: #### CBC ####[facility] [address]uy[address]ag[address] [place] [address] KarenHemoglobin mass conc (Bld)15.2 g/uPJvcfla12.0-18.0The [facility] Comment on above:Performed By: #### CBC ####[facility] Chkbgvizxd[address] [place] [address] KarenIG #0.05 10e3/ulCritically high 0.00-0.03The [facility] HospitalComment on above:Performed By: #### CBC ####[facility] Obpauhhuaj[address] [place] [address] KarenIG %0.7 %Critically high0.0-0.5The [facility] HospitalComment on above: Performed By: #### CBC ####[facility] Vrdavcrkan[address] [place] [address] KarenLymphocytes Auto #/vol (Bld)1.7 103/ul Normal1.2-3.8The [facility] HospitalComment on above:Performed By: #### CBC ####[facility] Iigkczcrjp[address] [place] [address] KarenLymphocytes/100 WBC Auto (Bld)23.7 %Qdsnzg47.5-60.0The [facility] Comment on above:Performed By: #### CBC ####[facility] Klsqhmgksx[address] [place] [address] KarenMANUAL DIFF REQNONormalThe [facility] HospitalComment on above:Performed By: #### CBC ####[facility] [address] [place] [address] Auto Entitic mass (RBC)33.8 qwHwsbke50.9-34.0The [facility] HospitalComment on above:Performed By: #### CBC ####[facility] Xqnks[address] [place] [address] Auto mass conc (RBC)34.8 g/mGSuxrxx14.9-35.2The [facility] HospitalComment on above:Performed By: #### CBC ####[facility] [address]bekbcll[address] StreetBellevue, [place] [address]Nxqntx KarenMCV Auto Entitic volume (RBC)97.1 fLCritically high80.0-94.0The [facility] Centerment on above:Performed By: #### CBC ####[facility] Fltiduarzj[address] [place], [place] [address]Gerken KarenMonocytes Auto #/vol (Bld)0.5 103/ulNormal 0.3-0.8The [facility] HospitalComment on above:Performed By: #### CBC ####[facility] Xnz[address] [place] [address] Bernadine Monocytes/100 WBC Auto (Bld)7.0 %Normal1.7-12.0The [facility] HospitalComment on above:Performed By: #### CBC ####[facility] Xsxd[address]fjs[address] [place] [address] KarenNeutrophils Auto #/vol (Bld)4.7 103/ul Normal1.4-6.5The [facility] HospitalComment on above:Performed By: #### CBC ####[facility] Yaxoohbwvm[address] [place] [address] KarenNeutrophils/100 WBC Auto (Bld)66.4 %Tvtbob27.0-75.0The [facility] Comment on above:Performed By: #### CBC ####[facility] S[address]afbcgiuq[address] [place] [address] KarenPlatelet mean volume Auto Entitic volume (Bld)10.7 fLNormal9.5-13.5The [facility] HospitalComment on above: Performed By: #### CBC ####[facility] Hdwqxspb[address] [place] [address] KarenPlatelets Auto #/vol (Bld)223 103/ulNormal 150-450The [facility] HospitalComment on above:Performed By: #### CBC ####[facility] Nqcruvgcsa[address] [place] [address] KarenRBC Auto #/vol (Bld)4.50 106/ulCritically low4.70-6.10The [facility] HospitalComment on above:Performed By: #### CBC ####[facility] Frfzlhoewh1422 [address] KarenWBC Auto #/vol (Bld)7.1 103/ulNormal 4.0-11.0The [facility] HospitalComment on above:Performed By: #### CBC ####[facility] [address] [place] [address] KarenDIRECT LDLon 32-65-2213Vyzvvjftibu in LDL mass concSEE BELOWLicking Memorial HospitalComment on above:Result Comment: <100 mg/dl OPTIMAL 100 - 129 mg/dl NEAR OR ABOVE OPTIMAL 130 - 159 mg/dl BORDERLINE HIGH 160 - 189 mg/dl HIGH >190 mg/dl VERY HIGHPerformed By: #### BMP, LIVER, FT3, LIPID, PSASC, TSH, DLDL ####[facility] Aniwfjioux[address] [place] [address] KarenCholesterol in LDL mass conc45 mg/dLNoSheltering Arms HospitalComment on above:Performed By: #### BMP, LIVER, FT3, LIPID, PSASC, TSH, DLDL ####[facility] [address]ynts[address] [place] [address] KarenFREE T3 on 77-60-4295O2 free mass conc4.33 pg/mLNormal2.77-5.27The [facility] Comment on above:Performed By: #### BMP, LIVER, FT3, LIPID, PSASC, TSH, DLDL ####[facility] Irorfb[address]kn[address] [place] [address] KarenFREE T4on 69-46-6485U1 free mass conc0.67 ng/dLCritically low0.78-2.19The [facility] HospitalComment on above:Performed By: #### FT4 ####[facility] Vpekkltugh8202 [address] KarenGLYCOHEMOGLOBIN A1Con 08-31-4336Auyofdb mass ejhc210 mg/dLLicking Memorial HospitalComment on above:Performed By: #### A1C ####[facility] [address] [place], [place] [address]Khacfc KarenHemoglobin A1c/Hemoglobin.total mass fraction (Bld)5.4 %Normal<=6.0The [facility] on above:Performed By: #### A1C ####[facility] [address] [place] [address]Gerken KarenLIPID PROFILEon 89-42-3644RJMS-HDL RATIO NORMSEE BELOWNormal The [facility] HospitalComkresge eye institute on above:Result Comment: 3.3 - 4.4 LOW RISK 4.4 - 7.1 AVERAGE RISK 7.1 - 11.0 MODERATE RISK >11.0 HIGH RISKPerformed By: #### BMP, LIVER, FT3, LIPID, PSASC, TSH, DLDL ####[facility] Narkbbvxck46[address] [place] [address]Gerken KarenCholesterol in HDL mass conc34 mg/dL NormalThe [facility] on above:Result Comment: A positive bias may be seen with a triglyceride level over 600 mg/dLPerformed By: #### BMP, LIVER, FT3, LIPID, PSASC, TSH, DLDL ####[facility] Ndxntfrceq8558 [place] [address]Gerken KarenCholesterol in HDL mass conc> or = 60 mg/dl - LOW CARDIOVASCULAR RISK <40 mg/dl - HIGH CARDIOVASCULAR RISKNormalThBellevue Hospital on above:Performed By: #### BMP, LIVER, FT3, LIPID, PSASC, TSH, DLDL ####[facility] Nmwhukhsgy[address] [place], [place] [address]Rbphpi KarenCholesterol mass ggud870 mg/dLNormal<=200The [facility] on above:Performed By: #### BMP, LIVER, FT3, LIPID, PSASC, TSH, DLDL ####[facility] Thqqsfbqhk6[address] [place] [address]Gerken KarenCholesterol.total/Cholesterol in HDL mass ratio6.0 {ratio} NormalThe [facility] on above:Performed By: #### BMP, LIVER, FT3, LIPID, PSASC, TSH, DLDL ####[facility] Wjxhdaeqbq2723 [address] KarenTriglyceride mass iuhj3132 mg/dLCritically high<=150The [facility] on above:Performed By: #### BMP, LIVER, FT3, LIPID, PSASC, TSH, DLDL ####[facility] Frfszykgkd1780 [address] KarenLIVER PROFILEon 63-62-0287Tsawvqc mass conc4.6 g/dLNormal3.5-5.0The [facility] on above:Performed By: #### BMP, LIVER, FT3, LIPID, PSASC, TSH, DLDL ####[facility] R[address]xyaaddm[address] [place] [address] KarenAlbumin/Globulin mass ratio1.5 {ratio}NormalThe [facility] on above:Performed By: #### BMP, LIVER, FT3, LIPID, PSASC, TSH, DLDL ####[facility] Ukwfdhuovg[address] [place] [address] KarenALP enzyme act/vol66 U/EVanzxq29-943Cwm [facility] on above:Performed By: #### BMP, LIVER, FT3, LIPID, PSASC, TSH, DLDL ####[facility] Ctnq[address]tsyq[address] [place] [address] KarenALT enzyme act/vol66 U/JBrdhji22-57Cgl [facility] on above:Performed By: #### BMP, LIVER, FT3, LIPID, PSASC, TSH, DLDL ####[facility] Txgnizxner1932 [address] KarenAST enzyme act/vol48 U/LNormal 17-59The [facility] on above:Performed By: #### BMP, LIVER, FT3, LIPID, PSASC, TSH, DLDL ####[facility] [address]zpacoyh[address] [place] [address] KarenBILI, CONJUGATED0.0 mg/dLNormal0.0-0.3The [facility] on above:Performed By: #### BMP, LIVER, FT3, LIPID, PSASC, TSH, DLDL ####[facility] Hrddaygnlq1955 [address] KarenBilirubin Ql (U)0.3 mg/dLNormal0.2-1.3The [facility] HospitalComment on above:Performed By: #### BMP, LIVER, FT3, LIPID, PSASC, TSH, DLDL ####[facility] Ukxckhzfip1058 [address] KarenGlobulin Calculated mass conc (S)3.1 g/dLNormalThe [facility] HospitalComment on above:Performed By: #### BMP, LIVER, FT3, LIPID, PSASC, TSH, DLDL ####[facility] Vrzdzvlnyw9941 [address] KarenProtein mass conc7.7 g/dLNormal6.1-8.2The [facility] Comment on above:Performed By: #### BMP, LIVER, FT3, LIPID, PSASC, TSH, DLDL ####[facility] Hunfzetnym5364 [address] KarenPROF CHEM 8 (BAS METB)on 83-55-0742Xqhiy gap 3 molar conc10.0 mmol/LNormal The [facility] HospitalComment on above:Performed By: #### BMP, LIVER, FT3, LIPID, PSASC, TSH, DLDL ####[facility] Zuqdusyehq7430 [address] KarenCalcium mass conc9.6 mg/dLNormal8.4-10.2The [facility] HospitalComment on above:Performed By: #### BMP, LIVER, FT3, LIPID, PSASC, TSH, DLDL ####[facility] Xscwdxzcev6581 [address] KarenChloride molar fcaj987 mmol/ZOkhxdf55-203Omb [facility] Comment on above:Performed By: #### BMP, LIVER, FT3, LIPID, PSASC, TSH, DLDL ####[facility] Iudcvyslfb0998 [address] KarenCO2 molar conc25.0 mmol/QBxvock03.0-30.0The [facility] Centerment on above:Performed By: #### BMP, LIVER, FT3, LIPID, PSASC, TSH, DLDL ####[facility] Hvrlmowxix1965 [address] Bernadine Creatinine mass conc0.96 mg/dLNormal0.66-1.25The [facility] HospitalComment on above:Performed By: #### BMP, LIVER, FT3, LIPID, PSASC, TSH, DLDL ####[facility] Wauiyvjxac3501 [address] KarenEGFR-AF TURKISH>60Normal>=60The [facility] on above:Performed By: #### BMP, LIVER, FT3, LIPID, PSASC, TSH, DLDL ####[facility] [address]llajbvg[address] [place] [address] KarenEGFR-NON AF TURKISH>60Normal >=60The [facility] HospitalComment on above:Performed By: #### BMP, LIVER, FT3, LIPID, PSASC, TSH, DLDL ####[facility] [address]jfw[address]cr[address] [place] [address] KarenGlucose mass conc97 mg/dGFhicfp92-469Ayu [facility] on above:Performed By: #### BMP, LIVER, FT3, LIPID, PSASC, TSH, DLDL ####[facility] [address]ulsibdtxv[address] [place] [address] KarenPotassium molar conc4.2 mmol/LNormal3.4-5.0The [facility] on above:Performed By: #### BMP, LIVER, FT3, LIPID, PSASC, TSH, DLDL ####[facility] Xsfkesisgu[address] [place] [address] KarenSodium molar icag193 mmol/LCritically shu576-791Ulo [facility] Centerment on above:Performed By: #### BMP, LIVER, FT3, LIPID, PSASC, TSH, DLDL ####[facility] Dhquxomrsq1599 [address] KarenUrea nitrogen mass conc14.0 mg/dLNormal9.0-20.0The [facility] HospitalComment on above:Performed By: #### BMP, LIVER, FT3, LIPID, PSASC, TSH, DLDL ####[facility] Vhjzmeckys0562 [address] KarenUrea nitrogen/Creatinine mass ratio14.8 mg/mgNoSheltering Arms HospitalComment on above:Performed By: #### BMP, LIVER, FT3, LIPID, PSASC, TSH, DLDL ####[facility] S[address]ofmruuup[address] [place] [address] Pasquale 61-86-6985Mcfgrnvtate QnSEE BELOWLicking Memorial HospitalComment on above:Result Comment: <0.34 UIU/ml HYPERTHYROID 0.34-5.60 UIU/ml EUTHYROID >5.60 UIU/ml HYPOTHYROIDPerformed By: #### BMP, LIVER, FT3, LIPID, PSASC, TSH, DLDL ####[facility] Lljescdqqg[address] [place] [address] KarenThyrotropin Qn6.140 uIU/mLCritically high 0.470-4.680The [facility] HospitalComkresge eye institute on above:Performed By: #### BMP, LIVER, FT3, LIPID, PSASC, TSH, DLDL ####[facility] Nymcrgzcot7118 [address] Bernadine Vital Signs Date TimeVital SignValuePerforming WijtuhaduQhwbbfns66-27-0767 09:10-0500 Diastolic blood szamjghe85 mm[Hg]Claudio Sarmini [phone]-DcfotSelect [facility]02-10-2025 09:10-0500Heart rate66 /minMuhammad Sarmini [phone]-WzmdcSelect [facility]ty [facility]02-10-2025 09:10-0500Systolic blood aimonjwb391 mm[Hg]Claudio Sarmini [phone]-XywfbSelect [facility]ty [facility]02-10-2025 09:08-0500Blood Pressure LocationMuhammad Junmini [phone]-XidelSelect [facility]ty [facility] [place]02-10-2025 09:08-0500Respiratory rate14 /minMuhammad Junmini [phone]-CmbelSelect Medical Specialty Hospital [facility] [place]02-06-2025 08:22-0500Body gbfdsu093.1 cmChristopher Jasmin DO Work Phone: [facility] SpringsJfhfwgwbbk43-04-4749 08:22-0500Body mass index (BMI) [Ratio]39.61 kg/f7Xoufltghnhh Jasmin DO Work Phone: [facility] SpringsRxbmzvrbkl74-31-5770 08:22-0500Body .96 kgChristopher Jasmin DO Work Phone: [facility] SpringsGsqluuubmc48-43-5966 08:22-0500Diastolic blood xxmuiljj08 mm[Hg]Christopher Jasmin DO Work Phone: [facility] SpringsRxkvvkyzap96-15-0522 08:22-0500Heart rate74 /min Christopher Jasmin DO Work Phone: [facility] SpringsBeqpexeihm84-02-0832 08:22-0500Systolic blood mm[Hg]Christopher Jasmin DO Work Phone: [facility] SpringsQcsecnfsut89-92-8541 09:40-0500Diastolic blood dsrpijub02 mm[Hg]Mohamad Sebastianli [facility]01-31-2025 09:40-0500Heart rate61 /minMohamad Mouchli [facility]01-31-2025 09:40-0500 Respiratory rate13 /minMohamad Mouchli [facility]01-31-2025 09:40-6797QsS9% (BldA) [Mass fraction]94 %Mohamad Mouchli [facility]01-31-2025 09:40-0500 Systolic blood mm[Hg]Mohamad Mouchli [address] [place], [place] [address]01-31-2025 09:20-0500 Diastolic blood rpuedtvg23 mm[Hg]Mohamad Mouchli [address] [place], [place] 53[address]01-31-2025 09:20-0500Heart rate89 /minMohamad Mouchli [address] [place], [place] 53[address]01-31-2025 09:20-0500 Respiratory rate22 /minMohamad Mouchli [address] [place], [place] 53[address]01-31-2025 09:20-4013JhX3% (BldA) [Mass fraction]94 %Mohamad Mouchli [address] [place], [place] 5311401-31-2025 09:20-0500 Systolic blood fntqcelo496 mm[Hg]Mohamad Mouchli [address] [place], [place] 5311401-31-2025 09:15-0500 Diastolic blood mm[Hg]Mohamad Mouchli [address] [place], [place] 5311401-31-2025 09:15-0500Heart rate90 /minMohamad Mouchli [address] [place], [place] 5311401-31-2025 09:15-0500 Respiratory rate13 /minMohamad Mouchli [address] [place], [place] 5311401-31-2025 09:15-9791XuR7% (BldA) [Mass fraction]98 %Mohamad Mouchli [address] [place], [place] 5311401-31-2025 09:15-0500 Systolic blood mptiazik041 mm[Hg]Mohamad Mouchli [facility]01-31-2025 09:10-0500Body ufqzhjlyizv85.42 [degF]Alejandra Hayden [facility]01-31-2025 09:05-0500 Respiratory rate14 /minMohamad Mouchli [facility]01-31-2025 08:55-0500 Respiratory rate22 /minMohamad Mouchli [facility]01-31-2025 07:28-0500Blood Pressure LocationMohamad Jackelyn [facility]01-31-2025 07:28-0500Body hzmkppgmeqx27.88 [degF]Alejandra Hayden [facility]01-27-2025 09:34-0500 Diastolic blood mm[Hg]Ji SIMON [facility]01-27-2025 09:34-0500Mean blood bzpsnaye405 mm[Hg]Ji SIMON [facility]01-27-2025 09:34-0500Systolic blood ekkmnjse650 mm[Hg]Ji SIMON [facility]01-27-2025 09:11-0500Diastolic blood qxzaijbk25 mm[Hg]Ji SIMON [facility]01-27-2025 09:11-0500Heart rate74 /minPatrick SIMON [facility]01-27-2025 09:11-0500Respiratory rate16 /minPatrick SIMON [facility]01-27-2025 09:11-0500Systolic blood mrhfzurh780 mm[Hg]Ji SIMON [facility]01-14-2025 08:57-0500Blood Pressure LocationMoabigail Hayden [phone]-WnblmSub[facility] Mjfvnc44-57-8287 08:57-0500Diastolic blood tilwjwqx82 mm[Hg]Teenatianad Jackelyn [phone]-WzgvgSelect [facility]01-14-2025 08:57-0500Heart rate71 /minAlejandra Hayden [phone]-KwpwqSelect [facility]01-14-2025 08:57-0500Systolic blood vgrarnjo505 mm[Hg]Teenajose Phizzleamina [phone]-TryjqTri[facility] Encounters Encounter DateEncounter TypeCare ProviderFacilityStart: 79-97-4313ssvascwwwc Ji SIMONFacility:EU ueStart: 84-40-6299samwklmfbiOsboqqp R WATERS Facility:EU ueStart: 02-06-2025 End: 33-46-2020kizwkuebdoKnwwrvq R WATERSFacility:EU tart: 02-06-2025 End: 79-09-3776Mwhhqds encounter procedureJi SIMON [facility] start: 01-15-2025 End: 87-74-9395Fmkotaqam encounterMelcarolina ZARATE [facility] Comment on above:re: PTStart: 01-08-2025 End: 74-46-7017npxemcyjemFvayzmka Brink PTANOMS [facility] TherapyComment on above:Radiculopathy, lumbar region (Primary Dx)Start: 01-08-2025 End: 61-23-1376Hkyjoc flowsheetMarshkatharina Wagonerink PTANOMS [facility] Start: 01-08-2025 End: 42-33-7593Opgnhr flowsheetMarshkatharina Solis PTANOMS [facility] Start: 01-07-2025 End: 53-69-8210lddvazzbfrIvjmerk R WATERSFacility:EU BellevueStart: 01-07-2025 End: 39-75-1148Xsgywer encounter procedureJi SIMON [facility] start: 01-01-2025 End: 46-60-3626sffvuwpclcBOFNNLOZ BRINKNOMS HealthcareComment on above: Radiculopathy, lumbar region (Primary Dx)Start: 01-01-2025 End: 80-07-1190Cytzcb flowsheetMarshkatharina Wagonerink PTANOMS [facility] Start: 01-01-2025 End: 10-43-7894Piojhy flowsheetMarshkatharina Wagonerink PTANOMS [facility] Start: 12-26-2024 End: 21-69-4323Babwuk flowsheetSammantha Evans PTNOMS [facility] Start: 12-26-2024 End: 53-41-5787Azbriz flowsheetSammantha Evans PTNOMS [facility] Start: 12-26-2024 End: 07-12-4563nduxdxipkrEgtefuaup Evans PTNOMS [facility] Comment on above:Radiculopathy, lumbar region (Primary Dx)Start: 12-24-2024 End: 21-85-6349ojowrctdvjThixzaj R WATERSFacility:FTMCStart: 12-24-2024 End: 86-92-1804rmvhpeslpaEtuxhms R WATERSFacility:EU BellevueStart: 12-24-2024 End: 91-01-5502Qykqbcv encounter procedureJi SIMON [facility] start: 12-11-2024 End: 25-70-4265cihcorfbkxPtvssrp R WATERSFacility:EU BellevueStart: 12-11-2024 End: 85-98-7565Rdlgpup encounter procedurePamaryann SIMON [facility] start: 11-30-2024 End: 68-04-6504iqgnlxaarwFybod A PocosFacility:FTMCStart: 11-12-2024 End: 85-18-1858qyroojbzryFggszsd R WATERSFacility:EU BellevueStart: 11-12-2024 End: 36-83-8171Kqqsykk encounter procedurePamaryann SIMON [facility] start: 10-15-2024 End: 48-44-0823wdothdlijbYrfffwd R WATERSFacility:EU BellevueStart: 10-15-2024 End: 70-42-1932Kpdaxzg encounter procedurePatricvera SIMON [facility] start: 09-14-2024 End: 70-93-3537fropkgpivmVwhxwnu R WATERSFacility:EU BellevueStart: 09-14-2024 End: 74-86-9450Iyxzhnk encounter procedurePatricvera SIMON [facility] start: 09-10-2024 End: 83-63-9660ehgolqnmclJtpbgch R WATERSFacility:EU BellevueStart: 09-10-2024 End: 37-67-8748Orjcjid encounter procedurePatricvera SIMON [facility] start: 08-16-2024 End: 73-53-3275poflimbefsIikmectj Talal SarminiFacility:Alejandro DHStart: 07-17-2024 End: 93-84-7915fmogufptboQqdxexvl Talal SarminiFacility:Alejandro DHStart: 05-25-2024 End: 43-78-2036Dmcxny flowsheetBasecamppalmer Huitronst. [facility] OT Work Phone: noms CI PTStart: 05-25-2024 End: 27-89-2288Kqrpxt flowsheetCoPWRFmykel Huitronst. joseph[facility] hospital OT Work Phone: noms CI PTStart: 05-25-2024 End: 91-63-2979kvmzkncnrjDqkogkjn Blacksst. [facility] OT Work Phone: noms CI PTComment on above:Joint stiffness of hand, right (Primary Dx); Swelling of right handStart: 05-22-2024 End: 92-99-9673Bzwgpe flowsheetScoreBigmykel Huitronst. joseph[facility] way[facility] hospital OT Work Phone: noms CI PTStart: 05-22-2024 End: 03-31-8941Oxbhen Cyantoheetmotify Elanast. joseph[facility] OT Work Phone: noms CI PTStart: 05-22-2024 End: 51-83-6700eqmgrdihwbEvykgnyp Blacksst. [facility] OT Work Phone: noms CI PTComment on above:Joint stiffness of hand, right (Primary Dx); Swelling of right handStart: 05-21-2024 End: 41-55-9349dwlldgkwaaPzkgkcpc Talal SarminiFacility:Alejandro DHStart: 05-21-2024 End: 03-82-2702Hvdxzzd encounter procedureMuhammad Talal Sarmini [phone]-QkebaSuburban [facility] & [facility] Health Start: 05-18-2024 End: 56-40-0577ryqybdwgbtJtftscni [facility]sst. [facility] OT Work Phone: noms CI PTComment on above:Joint stiffness of hand, right (Primary Dx); Swelling of right handStart: 05-17-2024 End: 78-46-4715Uweizz flowsheetChristopher Jasmin DO Work Phone: ana BELLEVUEStart: 05-17-2024 End: 33-16-2668Hpqles flowsheetChristopher Jasmin DO Work Phone: ana BELLEVUEStart: 05-17-2024 End: 20-36-0304gucdrujrznLEDDALUGIFO HASSETTNot AvailableStart: 05-17-2024 End: 94-68-5364Iwpjpm outpatient new 30 minutesChristopher Jasmin DO Work Phone: ana BELLEVUEComment on above:Neuralgia (Primary Dx) Start: 05-15-2024 End: 47-96-9926Uynsyb CyantoheetJazlyn Wilburn OT Work Phone: NOMS CI PTStart: 05-15-2024 End: 24-83-3759Vkqtdf flowsheetCoPWRFmykel Wilburn OT Work Phone: NOMS CI PTStart: 05-15-2024 End: 89-63-3823fdvodsizouHqeoahij Blackston OT Work Phone: NOMS CI PTComment on above:Swelling of right hand (Primary Dx); Joint stiffness of hand, rightStart: 05-11-2024 End: 96-44-3363pamfywpozbIayifgj A. MouchliFacility:FTMCStart: 05-11-2024 End: 50-60-3120Qdblldg encounter procedureMoabigail Hayden [facility] Start: 05-07-2024 End: 82-34-6630bjwjryhwiiDaqsvqm A. MouchliFacility:EU BellevueStart: 05-07-2024 End: 22-63-3137Zeszzue encounter procedurePamaryann SIMON [facility] start: 03-41-9307wnqjztweqaTuznkup MouchliFacility:EU BellevueStart: 04-26-2024 End: 46-60-0587garbeedpixVkwofdu A. MouchliFacility:FTMCStart: 04-26-2024 End: 92-40-8747Cvlvkri encounter procedureMohamad A. Mouchli [facility] Start: 04-25-2024 End: 08-69-6051qkzdpkhycxCqdpujh A. MouchliFacility:FTMCStart: 04-25-2024 End: 96-39-0758Dmi Drop offMohamad A. Mouchli [facility] Start: 04-24-2024 End: 67-46-2939kmfkdlaataIpatjes A. MouchliFacility:FTMCStart: 04-24-2024 End: 29-43-4029Ihktkha encounter procedureMohamad A. Mouchli [facility] Start: 04-24-2024 End: 53-00-1721qfahabznfjBnoanai A. MouchliFacility:DunkirkAbdiasJoshua DHStart: 04-24-2024 End: 08-73-4832Osciroo encounter procedureMohamad A. Mouchli 056-2023Jftzpl-WnrpeTrihealth [facility] Start: 93-86-2490ofokfkpawnMxpiniv Jackelyn Facility:[facility]stownus DHStart: 03-15-2018 End: 91-53-2593Hbjqwci encounter procedureMARC A NADERERFacility:Y8Xxtrq: 01-02-2018 End: 27-45-7441Zjntyyd encounter procedureMARC A NADERERFacility:L7Ouheu: 10-26-2017 End: 36-35-7040Kxgkapg encounter procedureMARC A NADERERFacility:Z2Hhegu: 09-27-2017 End: 20-15-2894Dgxpovo encounter procedureMAR Aurora BANNERRFacility:N6Hujql: 98-43-8880Rfzhzvmvj for general adult medical examination without abnormal findingsMetroHealth Cleveland Heights Medical Centertart: 09-14-2017 End: 02-54-5195Lshvibl encounter procedureMAR Aurora BANNERRFacility:Q1Ctfomdagu for general adult medical examination without abnormal findingsProvidence [facility] Procedures DateProcedureProcedure DetailPerforming ClinicianStart: 21-07-5015Opowgwjfqeo Purvi Evans PTStart: 40-93-1675WvenykhnjyrHadpbpf [employer] Comment on above:colon polyps x2, diverticulosis, Ih Start: 17-40-6633HuktiaofonamuamsqaiuvroxgtEhsmtvo MouchKAJ Hospitality Comment on above:esophagitis, gastritis, clean based ulcers, biopsies for celiac diseaseStart: 23-85-0091KBH screeningCHIL[facility] Comment on above:Performed By: #### BMP, LIVER, FT3, LIPID, PSASC, TSH, DLDL ####[facility] Ddichyhsjq[address] Plan of Treatment DateCare ActivityDetailAuthorStart: 61-86-4971Rbsxeyxzv for malignant neoplasm of colonNOMS HealthcareStart: 01-24-2025 End: 26-01-9429ungizajmym49/16/2025 5:00 PM EDT Treatment [facility] [address] [facility] [address] [place], [id number] Roro Rodgers, PTAKRISTY [facility] TherapyStart: 01-21-2025 End: 44-62-8536wrocsfmwet39/13/2025 5:00 PM EDT Treatment [facility] [address] [facility] [address] [place], [id number] Purvi Evans, PTKRISTY Alrfed Physical TherapyStart: 01-17-2025 End: 88-89-5468cpinhvwpou75/09/2025 6:00 PM EDT Treatment [facility] [address] [facility] [address] [place], [id number] Roro Rodgers PTANO [facility] TherapyStart: 01-08-2025 End: 10-65-1903rjkrsuwzus98/30/2025 6:00 PM EDT Treatment [facility] [address] [facility] [address] [place], [id number] Colby Solis RUBENMARK [facility] TherapyStart: 01-01-2025 End: 71-64-8060kukxidkrbtWWQH [facility] TherapyComment on above: Radiculopathy, lumbar region (Primary Dx)Start: 12-26-2024 End: 75-08-2714rrkrnspzyl31/17/2025 1:00 PM EDT Evaluation [facility] [address] [facility] [address] [place] [address] Purvi Evans, PT Radiculopathy, lumbar region (Primary Dx)N[facility] TherapyComment on above:Radiculopathy, lumbar region (Primary Dx)Start: 38-05-6750Lifvitywm vaccinationInfluenza Vaccine (#1)NOMS HealthcareStart: 11-19-2024 End: 51-74-2898Lkqlicv encounter lltqzylqq06/11/2025 8:20 AM EDT Office Visit MARY LARA [address] [place] [address] Sofie Weller NP [address] [place] [address] MARY ALANNAUEStart: 05-25-2024 End: 62-97-2850lennnzkaeh07/14/2025 8:00 AM EST Treatment [facility] CI PT [address] [facility] [address] [place] [address] Jazlyn Wilburn, OT [address] [place] [address] NOMS CI PTStart: 05-22-2024 End: 61-17-0737qliueuhggp64/11/2025 8:00 AM EST Treatment [facility] [address] [place] [address] Jazlyn Wilburn, OT [address] [place] [address] NOMS CI PTStart: 05-18-2024 End: 27-02-0370ustwhqnetw76/07/2025 8:00 AM EST Treatment [facility] [address] [place] [address] Jazlyn Wilburn, OT [address] [place] [address] NOMS CI PTStart: 05-17-2024 End: 32-03-9399Pkpwnhl encounter hazhweeha61/06/2025 8:00 AM EST Office Visit MARY [place] [address] [place] [address] Sandra Castellanos DO [address] [place] [address] MARY BELLEVUEStart: 29-10-6162Dznhkabxf vaccinationInfluenza Vaccine (#1)NOMS HealthcareStart: 39-17-0106Zewwkrjsf for malignant neoplasm of colonNOMS HealthcareDEACONESS HE[facility] SYSTEM W Auto Differential panel - BloodPrem[facility] Health [facility] Immunizations Immunization DateImmunizationNotesCare VcptavveOddkhhwc94-30-7394lntyiru toxoid, reduced diphtheria toxoid, and acellular pertussis vaccine, adsorbedPatrick SIMON [facility] BellevueNEGATED: Highlighted row has not occurred!76-65-5239egyiljjjh virus vaccine, unspecified formulationAlejandra Hayden [phone]-Qdxhv[address] [place] [address] Digestive Health Payers DatePayer CategoryPayerPolicy [id number] (Managed Care)[place] [id number] Health [id number] [id number] 2..1.566642.3.57[id number] 2..1.502106.3.57[id number] 2..1.860095.3.579.2.79330-91-9804Fbtcifu2570684 2..1.944997.3.579.2.18006-00-7896Agnfurw6500607 2..1.734284.3.57[id number] 2..1.697292.3.579.2.95629-58-6572Gzidcgh71739638 2..1.316601.3.579.2.09856-55-4501Tadmpmg39275197 2..1.704752.3.579.2.37140-88-2529Pfrhvqi76504368 2.0.1.037749.3.579.2.84333-24-9107Agqvpcr52616842 2.840.1.279182.3.579.2.42294-86-1864Ywouuys01063957 2.16.840.1.147771.3.579.2.17264-18-5710Atzhcqm99325263 2.840.1.484541.3.579.2.55298-06-1909Trxjoxg35871923 2.0.1.739937.3.579.2.36351-59-1526Bdtdrxd90142989 2.0.1.901817.3.579.2.33329-75-4883Phqrvff87898088 2.0.1.257628.3.579.2.49239-98-8065Bnsvupw52025920 2.0.1.984935.3.579.2.85089-75-0781Fpygjgw82576564 2.0.1.619444.3.579.2.60716-02-6391Ntgnfjp32636911 2.0.1.713846.3.579.2.58432-11-2812Nhlzwcp58519497 2..1.418947.3.579.2.71180-07-0564Mtgatxo81401865 2.0.1.503461.3.579.2.59615-72-3726Ljtvape15866727 2.0.1.639911.3.579.2.660432-72-9459Juhucxz76292680 2.0.1.291691.3.579.2.535648-22-4023Thsohar23791491 2.840.1.196024.3.579.2.924723-00-0814Phtsesy3786370 2.16.840.1.495871.3.579.2.022542-47-3652Ezxeqcz0613666 2..840.1.751978.3.579.2.889031-19-7806Coskaze6894070 2.16.840.1.701551.3.579.2.648783-49-6877Gnhjasg4879636 2..840.1.590062.3.579.2.741386-74-8316Jsrssll7861064 2..840.1.273478.3.579.2.348382-61-2111Oifhopa87645495 2..840.1.443614.3.579.2.56195-34-3088Vjdfyto64237672 2..0.1.829194.3.579.2.12558-01-8295Txdlvzc13254778 2.0.1.090835.3.579.2.71538-32-4511Cxwxriy59222220 2.0.1.449759.3.579.2.24026-21-9237Gypgcto95984780 2.0.1.978342.3.579.2.92309-62-2068Ltmtsjp08529360 2.0.1.485191.3.579.2.19436-87-4783CeqclceY6786633161 Social History DateTypeDetailFacilityStart: 04-24-2024 End: 75-92-2469Ihmfldd smoking statusNever smoked tobacco (finding)[facility] Digestive HealthStart: 07-81-8577Otzovpv smoking statusSmokeless tobacco user within last 30 daysTrihealth Good Samaritan Hospital [facility] Start: 91-67-7728Cbt Assigned At BirthMaleFFisher-Titus Medical CenterTobacco smoking status NHISTobacco smoking consumption unknownASHLEY [facility] HealthcareStart: 37-92-3119Myv assigned at birthNot on fileNOMS HealthcareStart: 05-17-2024 Tobacco use and exposureUser of smokeless tobaccoNODE HealthcareHistory of tobacco useChews TobaccoASHLEY REGIONAL MEDICAL CENTER HealthcareStart: 01-46-9054Dgbxmohgh beverage intakeCurrent drinker of alcohol (finding)[facility] HealthcareStart: 05-17-2024 History of Social functionNOMS HealthcareSexual OrientationExec[facility] sexMale (finding)[facility] Functional Status AnlgJthiffhdfwCkzzmzFcsydfgq61-56-8765Pdeozjwnlf StatusN/[facility] [place] Dig[facility]ive Acdrmz69-25-3799Cepmommhcs StatusN/[facility]01-27-2025Functional StatusN/AExec[facility]01-14-2025Functional StatusN/[facility] Clinical Notes 05-07-2024 to 01-15-2025 Note Date & RovjBooqTvsgszfh52-61-8721 Telephone encounter Note* Telephone Encounter - Leena Oneal - 01/15/2025 2:10 PM EDT He feels the legs / hips are feeling better; he noted he will continue w/ HEP. I informed his last PT was 01/08, if anything may arise to contact rohit. He cx his last PT's. [facility] SpringsOvdsubrcdu14-71-9646 Miscellaneous Notes* Telephone Encounter - Leena Oneal - 01/15/2025 2:10 PM EDT He feels the legs / hips are feeling better; he noted he will continue w/ HEP. I informed his last PT was 01/08, if anything may arise to contact rohit. He cx his last PT's. documented in this encounterSaint Mary's Hospital of [facility] SpringsJqbhplrvbu19-93-8092 Hospital Discharge instructions Patient Education 01/07/2025 16:40:47 Hypogonadism, Male Hypogonadism, Male Male hypogonadism is [...] therapy. Follow these instructions at home: Take acsn-jim-rnbtcea and prescription medicines only as told by [...] provider. Document Revised: 11/27/2020 Document Reviewed: 11/27/2020 [employer] Patient Education 2023 [employer]. Follow Up Care 11/12/2024 08:49:21 With:AURORA ROMEOR, Ji Be, URL Address: [facility] [address] [place] [address]- When: Unknown [facility] [place] 09-29-2025 NotePatient Education Urology Hypogonadism, Male Male hypogonadism [...] Follow these instructions at home: ??? Take uyfp-ski-zwcyrmv and prescription medicines only as told by [...] sure you discuss any (more content not included)...[facility]09-17-2025 History of Present illness Narrative* Purvi Evans, PT - 12/26/2024 1:00 PM EDT Images from the original note were not included. Physical Therapy Evaluation Visit Patient Name: Tate Encarnacion Today's Date: 12/26/2024 Encounter Diagnoses Name Primary? Radiculopathy, lumbar region Yes Visit number: 1 Timed Code Treatment Minutes: 50 minutes Total Treatment Time: 55 minutes Time In: 1300 Time Out: 1358 History: Pt states last Tuesday he started to notice pain in low back and down both of his legs whenhe woke up. States pain was not going down past knees at that time. Went to Dr on . Was given anti inflammatory medications and a muscle relaxer. Since then, pain seems to be a lot better. Still taking medication but only has a few days left of one of them. Was also given another medicationtoday. Low back still feels a little stiff but nothing in legs. Precautions: [place] Subjective: low back and bilateral Pain: 3/10 Objective: PT Evaluation (12/26/2024) LUMBAR SPINE AROM: flex fingers to mid le with mild discomfort, no pain at end range extension, increase low back pain at end range left SB Joint play: hypermobility lower lumbar region Strength: left hip ER 4/5, right hip ER 4+/5; core strength is fair Palpation: min tenderness bilateral lumbar paraspinals Special Test: negative slump testing bilateral Neurological: Reflexes: 2 bilateral patellar Myotomes: intact Dermatomes: intact Special Test: negative clonus Treatment: Education: HEP education with demonstration, Educated on Eval Findings and POC Manual Therapy: (10 minutes) Passive ROM, Joint mobilization, Soft Tissue Mobilization, Myofascial Release, Muscle Energy Technique, Neural Mobilization, Myofascial Cupping, Dry Needling, IASTM, and Scar mobilization as needed. Manual lumbar distraction in supine with moldovan ball. Therapeutic Exercise: (14 minutes) Strength, Endurance, Flexibility, ROM, HEP, Neural Mobilization,Power, and Core Stability as needed. Pt performed and instructed in home program this date; writteninstructions and pictures issued with good pt understanding. Therapeutic Activity: Exercises to improve dynamic activities, functional tasks, functional mobility to return to prior activity level as needed. Neuromuscular re-education: Balance Training, Muscle Facilitation, Dynamic Stability, Core Stabilization, and Blood Flow Restriction Training (BFRT) as needed. Modalities: Heat, Ice, Electrical Stimulation, Ultrasound, Cervical Mechanical Traction, Lumbar Mechanical Traction, Iontophoresis, and Fluidotherapy as needed. CP x 5 minutes in supine and during manual therapy Assessment: Pt is 54 y/o male with complaints of low back pain. Pt with decrease core and hip strength noted. Hypermobility noted lower lumbar region. Negative SLR and slump testing. Pt instructed inhome program and will benefit from further PT. Outcome Measure: Back Index: 20/50 Rehab Diagnosis: low back pain, decrease core strength Short Term Goal: To be met in 2 weeks Goal 1: Pt to be instructed in home exercise program. Electronic Science Teacher Goals: To be met in 10 weeks Goal 1: Pt to report independence and compliance with home program. Goal 2: Pt to report pain no greater than 1/10 with function tasks, ADL's, and work related activities. Goal 3: Pt to have full trunk ROM without complaints of increase pain at end ranges to assist with functional tasks. Goal 4: Pt to achieve 4+/5 strength bilateral hips to assist with functional tasks. Goal 5: Pt to demonstrate good core strength for improved lumbar stability. Goal 6: Pt to score no greater than 6/50 on Back Index indicating improved QOL. Pt will benefit from skilled PT for 2x/week from 12/26/2024 to 03/20/2025 to address the above impairments. I hereby deem this POC medically necessary. Please sign below. Date: documented in this encounterSaint [facility]'s Hospital of [facility] SpringsSibvnkbahh28-96-4169 Hospital Discharge instructions Patient Education 09/10/2024 15:47:46 [...] therapy. Follow these instructions at home: Take oclo-ssy-pqpcczg and prescription medicines only as told by [...] provider. Document Revised: 11/27/2020 Document Reviewed: 11/27/2020 5[employer] Media Patient Education 2023 [employer] Follow Up Care 05/07/2024 09:57:31 With:AURORA ROMERO, Ji Be, URL Address: [facility] [address], [place] [phone] When: Unknown Comments:4 mos w/ T [facility] NotePatient Education Urology Hypogonadism, Male Male hypogonadism [...] Follow these instructions at home: ??? Take epgz-frm-zkjltox and prescription medicines only as told by [...] sure you discuss any (more content not included)...[facility]02-14-2025 History of Present illness Narrative* Jazlyn Wilburn OT - 05/25/2024 8:00 AM EST Occupational Therapy Occupational Therapy Treatment Visit Patient [...] all planes 1x15 with fair toleration. Composite special education resource teacher holds x2 minutes. Contract release exercsies 1x15. [...] following speaking with doctor. documented in this encounterSaint Mary's Hospital of Blue SpringsKuaizusqjr68-39-5444 History of Present illness Narrative* Jazlyn Wilburn OT - 05/22/2024 8:00 AM EST Occupational Therapy Occupational Therapy Treatment Visit Patient [...] all planes 1x15 with fair toleration. Composite special education resource teacher holds x2 minutes. Contract release exercsies 1x15. [...] reduce pain at discharge documented in this [facility]02-07-2025 History of Present illness Narrative* Jazlyn Wilburn OT - 05/18/2024 8:00 AM EST Occupational Therapy Occupational Therapy Treatment Visit Patient [...] all planes 1x15 with fair toleration. Composite special education resource teacher holds x2 minutes. Contract release exercsies 1x15. [...] reduce pain at discharge documented in this encounterSaint [facility]'s Hospital of Blue [id number] History of Present illness Narrative* Sandra Castellanos DO - 05/17/2024 8:00 AM EST Images from the original note were not included. Migraines Subjective Tate Shashank, 53 y.o., male Patient here today for a neurological consult at the request of Kira Garrison CNP for Migraines. He reports he had migraines since he was a child. He had a head injury 15 years ago. He now has a SNYDER on the left side of his head where his head injury was. He gets a SNYDER a few times a week. SNYDER comes and goes throughout the day. He [...] machine. He did have recent MRI at [facility]. He has never tried any medications for SNYDER. HE has tried Advil but this does [...] , wrist extensors , wrist flexor , special education resource teacher strength 5/5. LUE Strength deltoid , biceps , triceps , wrist extensors , wrist flexor , special education resource teacher strength 5/5. RLE Strength illopsoas, quadriceps, tibialis [...] reflex 2+ . Huerta's sign negative. Coordination: Afvazl-qa-ywlv testing and rapid alternating movements are normal [...] head pain over that head region. Over thecourse of the last month or so this [...] plan, and return instructions documented in this encounterSaint Mary's Hospital of Blue [id number] History of Present illness Narrative* Jazlyn Wilburn, OT - 05/15/2024 9:00 AM EST Images from the original note were not [...] hand. Pt reports he works in [employer] and is unable to use his saw [...] self-care and functional mobility tasks. Works in [employer]. Precautions: none Objective PRWHE Pain Score: 39/50 [...] composite fist. Strength Strength additional comments: R special education resource teacher strength: 35# compared to L special education resource teacher strength: 115# Special Tests Special tests additional [...] to assist with swelling. Pt verbalized understanding. Ki neseotape applied to dorsal hand for edema measurements at end of session.Wear time discussed. HEP established. Pt verbalizes understanding. Assessment/Plan Short Term Goals: Pt will be independent with home exercise program for light strengthening and ROM at discharge. Electronic Science Teacher Goals: PRWHE Pain Score < 20/ 50 ( IE:39/50 ) PRWHE Functional Score <25/100 (IE: 68/100) Reduce R hand edema by at least 5 cm in order to reduce pain and improve ROM at discharge. Pt to increase special education resource teacher strength by 10# and LP by 2# pain free at discharge. Pt will be able to use right UE in light daily activities. Pt will benefit from skilled OT to address the above impairments for 2x/week for 4-6 weeks. I hereby deem this POC medically necessary. Please sign below. Date: . documented in this encounterSaint Mary's Hospital of Blue [id number] Evaluation + Plan note Extracted from:Title:ANES Post-operative Note---GeneralAuthor:Cody Tay MD Date:05/11/24 Plan Transfer/Discharge: Transfer/Discharge Discharge when meets criteria ( To home ). Extracted from:Title:1Preop H&PAuthor:González Sutton MDate:05/11/24 Impression and Plan Impression: change in bowel habits Plan: -EGD and Colonoscopy Extracted from:Title:ANES Pre-operative Note uthor:Cody Tay MDDate: 05/11/24 Plan [place] [employer] Anesthesiologists (ASA) physical status classification: Class II. Anesthetic Preoperative Plan: Anesthesia General. Future Appointments Appointment Date:05/21/2024 09:00:00 AM Scheduled Provider:González Sutton MD Location:[facility] Appointment Type:BADH Follow Up Appointment Date:09/07/2024 09:45:00 AM Scheduled Provider:Ji SIMON MD Location:[facility] Appointment Type:URO Office Visit [facility] 01-31-2025 Hospital Discharge instructions Patient [...] help quitting, ask your health careprovider. Take jwqz-fhf-hftwaur and prescription medicines only as told by your health care provider. ?Do not use vrnd-lkg-jdvexqx medicines in place of prescription medicines unless [...] help quitting, ask your health careprovider. Take rhan-qnb-cqmoiuc and prescription medicines only as told by your health care provider. Do not use ydgk-kci-lpaikpn medicines in place of prescription medicines unless your health care provider approves. Limit your alcohol and caffeine intake. Keep all follow-up visits. This is important. This information is not intended to replace advice given to you by your health care provider. Make sure you discuss any questions you have with your health care provider. Document Revised: 11/06/2021 Document Reviewed: 11/06/2021 5min Media Patient Education 2023 [employer]. 05/11/2024 09:43:40 Colonoscopy, Care After Surgery Salam [...] unsweetened, w/added ascorbic acid 1 cup 0.5 [place] 1 cup 0.7 Vegetables Cooked Green beans 1 cup 4.0 Carrots 1/2 cup sliced 2.3 Peas 1 cup 8.8 Potato (baked, with skin) 1 medium potato 3.8 Raw [place] (with peel) 1 cucumber 1.5 Lettuce 1 [...] Peanuts 1/2 cup 7.9 Chart from [facility] 2013. SEEK IMMEDIATE MEDICAL CARE IF: [...] Reference. Available at http://www.nal.usda.gov/fnic/foodcomp/search/. Information adapted from: [facility] Patient Information 2009 [employer]. ab&jb properties and services 2012 http://www.[employer]/contents/catntdgcnrcc-nxddlwc-havcif-the-basics 05/11/2024 09:43:38 Colon Polyps Colon Polyps Colon [...] hard liquor (44 mL). General instructions Take ubnw-okf-jrjsteo and prescription medicines only as told by [...] provider. Document Revised: 07/16/2020 Document Reviewed: 07/16/2020 5min Media Patient Education 2023 [employer]. 05/11/2024 09:27:02 Gluten-Free Diet for Celiac Disease, [...] how a food is processed, ask the house mover. What foods can I eat? Fruits All [...] cereals made from cornmeal or GF grains. [place], rice, and wild rice. Some rice noodles [...] or meat loaves. Bread-containing products, such as Slovak steak, croquettes, meatballs, and meatloaf. Most tuna canned in vegetable broth. [place] with hydrolyzed vegetable protein (HVP) injected as [...] provider. Document Revised: 02/16/2022 Document Reviewed: 02/16/2022 5min Media Patient Education 2023 [employer]. 05/11/2024 09:26:16 Upper Endoscopy, Adult, Care After [...] what activities are safe for you. Take tnki-mzk-plxjryu and prescription medicines only as told by [...] provider. Document Revised: 07/07/2022 Document Reviewed: 07/07/2022 5min Media Patient Education 2023 [employer]. 05/11/2024 09:26:10 Esophagitis Esophagitis Esophagitis is inflammation [...] Follow these instructions at home: Medicines Take lpzh-jlc-likifew and prescription medicines only as told by [...] powder, vinegar, hot sauces, and barbecue sauce. ?[place] fruit juices and citrus fruits, such as oranges, ronald, and limes. ?Tomato-based foods, such as red sauce, chili, salsa, and pizza with red sauce. ?Fried and fatty foods, such as donuts, taiwanese fries, potato chips, and high-fat dressings. ?High-fat [...] provider. Document Revised: 10/06/2020 Document Reviewed: 10/06/2020 5[employer] Media Patient Education 2023 [employer]. 05/11/2024 09:25:57 Celiac Disease Celiac Disease Celiac [...] provider. Document Revised: 02/16/2022 Document Reviewed: 02/16/2022 5min Media Patient Education 2023 [employer]. 05/11/2024 09:25:22 Gastritis, Adult Gastritis, Adult Gastritis [...] medicines. These include steroids, antibiotics, and some srvg-krb-cocnmdy medicines, such as aspirin or ibuprofen. Having [...] Follow these instructions at home: Medicines Take hekm-sfr-kttjsrc and prescription medicines only as told by [...] provider. Document Revised: 08/01/2021 Document Reviewed: 08/01/2021 5min Media Patient Education 2023 [employer]. [facility] 01-31-2025 NotePatient Education - Text Colonoscopy Care After Surgery Please read the instructions outlined below and refer to this sheet in the next few weeks. These discharge instructions provide you with general information on caring for yourself after you leave thehospital. Your doctor may also give you specific [...] unsweetened, w/added ascorbic acid 1 cup 0.5 [place] 1 cup 0.7 Vegetables Cooked Green beans 1 cup 4.0 Carrots 1/2 cup sliced 2.3 Peas 1 cup 8.8 Potato (baked, with skin) 1 medium potato 3.8 Raw [place] (with peel) 1 cucumber 1.5 Lettuce 1 [...] 8.7 Peanuts 1/2 cup 7.9 [facility] (more content not included)...[facility] 05-11-2024 NoteProgress Note-Physician Patient: TATE ENCARNACION Age: 53 years Sex: Male : 1970 Associated Diagnoses: None Author: Cody Tay MD Postoperative Information Postoperative disposition: Postoperative disposition: To PACU. Optimetrix number: Optimetrix number [id number]. Anesthetic utilized: General. Health Status Allergies: Allergic [...] Discharge when meets criteria ( To home ).[facility] CampusComment on above:Result Comment: Electronically Signed By: Cody [...] out celiac disease Images Procedure images: Rec_hd_video__08_[id number]_[id number].jpg Rec_hd_video_T08_50_51_165.jpg Rec_hd_video_T08_50_47_094.jpg Rec_hd_video_08_50_22_021.jpg Rec_hd_video__49_24_244.jpg Rec_hd_video_T08_48_12_320.jpg Rec1_hd_video_2024__T08_48_07_481.jpg Rec1_hd_video__T08_47_45_346.jpg Rec1_hd_video__T08_47_21_276.jpg . Post-Procedure Complications: none. Estimated [...] EGD in 3 months to ensure esophagitis healingSumma Health [facility] Campus Comment on above:Result Comment: Electronically Signed By: Lesley ROMERO, González Cadena\.br\Date and Time Signed: 05/11/24 09:09 ESTOther Comment: Missing Attachment - attachment storage system not supported [id number] Can be viewed in source systemMissing Attachment - attachment storage system not supported [id number] Can be viewed [facility] systemMissing Attachment - attachment storage system not supported [id number] Can be viewed in source systemMissing Attachment - attachment storage system not supported [id number] Can be viewed in source systemMissing Attachment - attachment storage system not supported [id number] Can be viewed in source systemMissing Attachment - attachment storage system not supported [id number] Can be viewed in source systemMissing Attachment - attachment storage system not supported [id number] Can be viewed in source systemMissing Attachment - attachment storage system not supported [id number] Can be viewed in source systemMissing Attachment - attachment storage system not supported [id number] Can be viewed in [id number] NoteEndoscopic Procedure Report - Other Patient: TATE [...] qAM, # 75 gram, Refills(s) 3, Pharmacy: [facility], 165, cm, 05/07/24 9:19:00 EST, Height/Length Dosing, 108.1, kg, 05/07/24 9:19:00 EST, Weight Dosing Questran 4 g/9 g oral powder: = 1 packet(s), Oral, BID, # 60 EA, Refills(s) 0, Pharmacy: [facility], 170, cm, 04/24/24 8:57:00 EST, Height/Length Dosing, 108.6, kg, 04/24/24 8:57:00 EST, Weight Dosing Zenpep 60,000 units-189,600 units-252,600 units oral delayed release capsule: See Instructions, 300cap(s), Refill(s) 3, Take 2 caps with each meal and 1 with each snack, [facility], 170, cm, 04/24/24 8:57:00 EST, Height/Length Dosing, 108.6, kg, 04/24/24 8:57:00 EST, Weight Dosing tadalafil 20 mg Tab: 20 mg = 1 tab(s), Oral, As Directed, PRN for erectile dysfunction, Pt to take one tab 1 hour prior to sexual activity. Do not exceed 20mg in 24 hours., # 30 tab(s), Refills(s) 0,Pharmacy: [facility], 165, cm, 05/07/24 9:19:00 EST, Hei... [...] terminal ileum Images Procedure images: Rec1_hd_video_2024__31T09_[id number]_[id number].jpg Rec1_hd_video_2024__31T09_12_57_370.jpg Rec1_hd_video__09_11_15_539.jpg Rec1_hd_video__T09__07_071.jpg Rec1_hd_video__T09__04_714.jpg Rec1_hd_video____57_958.jpg Rec1_hd_video____44_461.jpg Rec1_hd_video____17_731.jpg . Post-Procedure [...] 5. Otherwise normal colo (more content not included)...[facility] CampusComment on above:Result Comment: Electronically Signed By: Lesley ROMERO, González Cadena\.br\Date and Time Signed: 05/11/24 09:07 ESTOther Comment: Missing Attachment - attachment storage system not supported [id number] Can be viewed in source systemMissing Attachment - attachment storage system not supported [id number] Can be viewed insource systemMissing Attachment - attachment storage system not supported [id number] Can be viewed in source systemMissing Attachment - attachment storage system not supported 1511141 Can be viewed in so urce systemMissing Attachment - attachment storage system not supported [id number] Can be viewed in source systemMissing Attachment - attachment storage system not supported [id number] Can be viewed in source systemMissing Attachment - attachment storage system not supported 0838339 Can be viewed in source systemMissing Attachment - attachment storage system not supported [id number] Can be viewed in source [id number] NoteHistory and Physical Patient: TATE ENCARNACION Age: [...] qAM, # 75 gram, Refills(s) 3, Pharmacy: [facility], 165, cm, 05/07/24 9:19:00 EST, Height/Length Dosing, 108.1, kg, 05/07/24 9:19:00 EST, Weight Dosing Questran 4 g/9 g oral powder: = 1 packet(s), Oral, BID, # 60 EA, Refills(s) 0, Pharmacy: [facility], 170, cm, 04/24/24 8:57:00 EST, Height/Length Dosing, 108.6, kg, 04/24/24 8:57:00 EST, Weight Dosing Zenpep 60,000 units-189,600 units-252,600 units oral delayed release capsule: See Instructions, 300cap(s), Refill(s) 3, Take 2 caps with each meal and 1 with each snack, [facility], 170, cm, 04/24/24 8:57:00 EST, Height/Length Dosing, 108.6, kg, 04/24/24 8:57:00 EST, Weight Dosing tadalafil 20 mg Tab: 20 mg = 1 tab(s), Oral, As Directed, PRN for erectile dysfunction, Pt to take one tab 1 hour prior to sexual activity. Do not exceed 20mg in 24 hours., # 30 tab(s), Refills(s) 0,Pharmacy: [facility], 886, cm, 05/07/24 9:19:00 Logan DASH... Documented Medications [...] hypertension (high blood pressure) / SNOMED CT 48577736 / Confirmed Thyroid function tests abnormal / SNOMED CT 504023769 / Confirmed Anemia of chronic disorder (low iron) / SNOMED CT 295948263 / Confirmed Bloating / SNOMED CT 950561932 / Confirmed Black stool / SNOMED CT 773909255 / Confirmed Chronic GERD / SNOMED CT 634322661 / Confirmed Decreased sexual desire / SNOMED CT 450265455 / Confirmed Alcohol drinker / SNOMED CT 099972180 / Confirmed Stress-related physiological response affecting medical condition / SNOMED CT 06720168 / Confirmed High triglycerides / SNOMED CT 905348368 / Confirmed Obesity due to excess calories / SNOMED CT 9126192533 / Confirmed ED (erectile dysfunction) / SNOMED CT 7402094441 / Confirmed Hypogonadism male / SNOMED CT 07535059 / Confirmed Screening PSA (prostate specific antigen) / SNOMED CT 442330993 / Confirmed BPH with urinary obstruction / SNOMED CT 0087001366 / Confirmed Acquired buried penis / SNOMED CT 582125406 / Confirmed Histories Past Medical History: No [...] change in bowel habits Plan: -EGD and ColonoscopySumma Health Barberton CampusComment on above:Result Comment: Electronically Signed By: Lesley ROMERO, González Cadena\.br\Date and Time Signed: 05/11/24 08:34 [id number] NoteProgress Note-Physician Patient: TATE ENCARNACION Age: 53 [...] qAM, # 75 gram, Refills(s) 3, Pharmacy: [facility], 165, cm, 05/07/24 9:19:00 EST, Height/Length Dosing, 108.1, kg, 05/07/24 9:19:00 EST, Weight Dosing Questran 4 g/9 g oral powder: = 1 packet(s), Oral, BID, # 60 EA, Refills(s) 0, Pharmacy: [facility], 170, cm, 04/24/24 8:57:00 EST, Height/Length Dosing, 108.6, kg, 04/24/24 8:57:00 EST, Weight Dosing Zenpep 60,000 units-189,600 units-252,600 units oral delayed release capsule: See Instructions, 300cap(s), Refill(s) 3, Take 2 caps with each meal and 1 with each snack, [facility], 170, cm, 04/24/24 8:57:00 EST, Height/Length Dosing, 108.6, kg, 04/24/24 8:57:00 EST, Weight Dosing tadalafil 20 mg Tab: 20 mg = 1 tab(s), Oral, As Directed, PRN for erectile dysfunction, Pt to take one tab 1 hour prior to sexual activity. Do not exceed 20mg in 24 hours., # 30 tab(s), Refills(s) 0,Pharmacy: [facility], 165, cm, 05/07/24 9:19:00 EST, Hei... [...] Problems Acquired buried penis / SNOMED CT 068080491 / Confirmed Alcohol drinker / SNOMED CT 079773729 / Confirmed Anemia of chronic disorder (low iron) / SNOMED CT 462428544 / Confirmed Benign hypertension (high blood pressure) / SNOMED CT 07908039 / Confirmed Black stool / SNOMED CT 642971039 / Confirmed Bloating / SNOMED CT 146366328 / Confirmed BPH with urinary obstruction / SNOMED CT 2750948978 / Confirmed Chronic GERD / SNOMED CT 348266559 / Confirmed Decreased sexual desire / SNOMED CT 481391964 / Confirmed ED (erectile dysfunction) / SNOMED CT 0661685341 / Confirmed High triglycerides / SNOMED CT 166472783 / Confirmed Hypogonadism male / SNOMED CT 23021534 / Confirmed Obesity due to excess calories / SNOMED CT 8833859118 / Confirmed Screening PSA (prostate specific antigen) / SNOMED CT 706601603 / Confirmed Stress-related physiological response affecting medical condition / SNOMED CT 14423890 / Confirmed Thyroid function tests abnormal / SNOMED CT 938642465 / Confirmed Canceled: Low libido / SNOMED CT 809579698, Active Problems (16) Acquired buried penis Alcohol [...] have been selected or (more content not included)...[facility] CampusComment on above:Result Comment: Electronically Signed By: Jasvir ROMERO, Cody Alvarez\.br\Date and Time Signed: 05/11/24 08:21 [id number] Hospital Discharge instructions Patient Education 05/07/2024 09:53:04 [...] therapy. Follow these instructions at home: Take aebr-aan-oqmaerr and prescription medicines only as told by [...] provider. Document Revised: 11/27/2020 Document Reviewed: 11/27/2020 5min Media Patient Education 2023 [employer]. 05/07/2024 09:39:27 Erectile Dysfunction Erectile Dysfunction Erectile [...] Follow these instructions at home: Medicines Take vigk-fah-znfhtrw and prescription medicines only as told by [...] provider. Document Revised: 06/24/2021 Document Reviewed: 06/24/2021 5min Media Patient Education 2023 [employer]. Follow Up Care 04/27/2024 13:04:43 With:AURORA ROMERO, Ji Be, URL Address: [facility] [address], [place] [address]- [phone] When: Unknown Comments:4 mos w/ PSA and T level [facility] 01-27-2025 NotePatient Education Urology Hypogonadism, Male [...] Follow these instructions at home: ??? Take saqg-cvi-ylwgzvv and prescription medicines only as told by [...] sure you discuss any (more content not included)...[facility] CampusEvaluation + Plan note Future Appointments Appointment Date:05/04/2024 09:30:00 AM Scheduled Provider: Location:[facility] Appointment Type:Surgery FT Appointment Date:05/11/2024 09:00:00 AM Scheduled Provider:Alejandra Hayden MD Location:[facility] App[facility] Type:[facility] Follow Up Future Scheduled Tests Laboratory* Pancreatic Elastase, Fecal 04/24/24 * Pancreatic Elastase, Fecal 04/24/24 * Calprotectin, Fecal 04/24/24 Radiology* US Abdomen, Limited 04/24/24 [facility] Evaluation + Plan note Future Appointments Appointment Date:05/04/2024 09:30:00 AM Scheduled Provider: Location:[facility] Appointment Type:Surgery FT Appointment Date:05/11/2024 09:00:00 AM Scheduled Provider:Alejandra Hayden MD Location:[facility] Appointment Type:[facility] Follow Up Diagnostic Tests Pending * Celiac Disease Comprehensive 04/24/24 * Testosterone Level Total 04/24/24 Future Scheduled Tests Laboratory* Pancreatic Elastase, Fecal 04/24/24 * Pancreatic Elastase, Fecal 04/24/24 * Calprotectin, Fecal 04/24/24 Radiology* US Abdomen, Limited 04/24/24 [facility] Evaluation + Plan note Future Appointments Appointment Date:04/26/2024 08:30:00 AM Scheduled Provider: [facility] Type:US Abdominal/Pelvis (FT) Appointment Date:05/04/2024 09:30:00 AM Scheduled Provider: Location:[facility] Appointment Type:Surgery FT Appointment Date:05/11/2024 09:00:00 AM Scheduled Provider:Alejandra Hayden MD Location:[facility] Appointment Type:[facility] Follow Up Diagnostic Tests Pending * Calprotectin, Fecal 04/25/24 * Pancreatic Elastase, Fecal 04/25/24 Future Scheduled Tests Radiology* US Abdomen, Limited 04/26/24 [facility] evaluation + Plan note Future Appointments Appointment Date:05/04/2024 09:30:00 AM Scheduled Provider: Location:[facility] Appointment Type:Surgery FT Appointment Date:05/11/2024 09:00:00 AM Scheduled Provider:Alejandra Hayden MD Location:[facility] Appointment Type:[facility] Follow Up [facility] Evaluation + Plan note Future Appointments Appointment Date:05/11/2024 08:15:00 AM Scheduled Provider: Location:[facility] Appointment Type:Surgery FT Appointment Date:05/21/2024 09:00:00 AM Scheduled Provider:González Sutton MD Location:[facility] Appointment Type:[facility] Follow Up Appointment Date:09/07/2024 09:45:00 AM Scheduled Provider:Ji SIMON MD Location:[facility] Appointment Type:URO Office Visit Diagnostic Tests Pending * Testosterone Level Total 05/07/24 * PSA Screen, Total 05/07/24 [facility] evaluation + Plan note Future Appointments Appointment Date:09/07/2024 09:45:00 AM Scheduled Provider:Ji SIMON MD Location:[facility] Appointment Type:URO Office Visit [facility] Evaluation + Plan note Future Appointments Appointment Date:09/14/2024 08:00:00 AM Scheduled Provider: Location:[facility] Appointment Type:URO Nurse Visit [facility] evaluation + Plan note Future Appointments Appointment Date:10/15/2024 09:00:00 AM Scheduled Provider: Location:[facility] Appointment Type:URO Nurse Visit [facility] evaluation + Plan note Future Appointments Appointment Date:11/12/2024 08:45:00 AM Scheduled Provider: Location:[facility] Appointment Type:URO Nurse Visit Appointment Date:12/11/2024 09:00:00 AM Scheduled Provider: Location:[facility] Appointment Type:URO Nurse Visit [facility] evaluation + Plan note Future Appointments Appointment Date:11/30/2024 12:30:00 PM Scheduled Provider: [facility] Unilateral Upper Extremity Appointment Date:12/11/2024 09:00:00 AM Scheduled Provider: Location:[facility] Appointment Type:URO Nurse Visit Appointment Date:12/24/2024 08:45:00 AM Scheduled Provider: Location:[facility] Appointment Type:URO Nurse Visit Appointment Date:01/07/2025 03:15:00 PM Scheduled Provider:Ji SIMON MD Location:[facility] Appointment Type:URO Office Visit [facility] [facility] evaluation + Plan note Future Appointments Appointment Date:12/24/2024 08:45:00 AM Scheduled Provider: Location:[facility] Appointment Type:URO Nurse Visit Appointment Date:01/07/2025 03:15:00 PM Scheduled Provider:Ji SIMON MD [facility] App[facility] Type:URO Office Visit [facility] evaluation + Plan note Future Appointments Appointment Date:01/07/2025 03:15:00 PM Scheduled Provider:Ji SIMON MD Location:[facility] Appointment Type:URO Office Visit [facility] evaluation + Plan note Future Appointments Appointment Date:02/06/2025 08:00:00 AM Scheduled Provider: Location:[facility] Appointment Type:URO Nurse Visit Future Scheduled Tests Laboratory* CBC w/ Auto Diff 06/09/25 * Testosterone Level Total 06/09/25 [facility] evalydtnkv note* Diagnosis Swelling of right hand- Primary [...] [facility] Diagnosis Radiculopathy, lumbar region- Primary Thoracic or lumbosacral neuritis or radiculitis, unspecified documented [facility]* Diagnosis Radiculopathy, lumbar region- Primary Thoracic or lumbosacral neuritis or radiculitis, unspecified documented [facility]* Diagnosis Radiculopathy, lumbar region- Primary Thoracic or lumbosacral neuritis or radiculitis, unspecified [facility] Narrative No data available for this section [facility] Discharge instructions No data available for this section [facility] Progress note No data available for this section [facility] Reason for visit Narrative* Rehabilitation - Outpatient (Routine) - AuthorizedSpecialtyDiagnoses / ProceduresReferred By Contact Referred To ContactOccupational Therapy / Physical Therapy Diagnoses Swelling of R hand Procedures PA OCCUPATIONAL THERAPY EVALUATION PA OFFICE/OUTPATIENT NEW [facility] 60 MINUTES Genoveva Cartagena MD [address] [place] [address] [place] [address] Phone: tel: fax: Jazlyn Wilburn, OT [address] [facility] [address] [place] [address] Phone: tel: fax: Referral IDStatusReasonStart DateExpiration DateVisits RequestedVisits [id number]/30 [facility] Narrative* Rehabilitation - Outpatient (Routine) - AuthorizedSpecialtyDiagnoses / ProceduresReferred By ContactReferred To ContactOccupational Therapy / Physical Therapy Diagnoses Swelling of R hand Procedures PA OCCUPATIONAL THERAPY EVALUATION PA OFFICE/OUTPATIENT NEW [facility] 60 MINUTES Genoveva Cartagena MD [address] [place] [address] [place] [address] Phone: tel: fax: Mariah Jazlyn, OT [address] [facility] [address] [place] [address] Phone: tel: fax: Referral IDStatusReasonStart DateExpiration DateVisits RequestedVisits [id number]/ [facility]Reason for [facility] Narrative* Rehabilitation - Outpatient (Routine) - AuthorizedSpecialtyDiagnoses / ProceduresReferred By ContactReferred To ContactPhysical Therapy Diagnoses Radiculopathy, lumbar region Procedures PA PHYSICAL THERAPY EVALUATION LOW COMPLEX 20 MINS PA OFFICE/OUTPATIENT [facility] 60 MINUTES Eh Abdul MD [address] [place] [address] Phone: tel:[phone] fax: Purvi Evans PT Referral IDStatusReasonStart DateExpiration DateVisits RequestedVisits [id number]/17/20253/ [facility]Reason for [facility] Narrative* Rehabilitation - Outpatient (Routine) - AuthorizedSpecialtyDiagnoses / ProceduresReferred By ContactReferred To ContactPhysical Therapy Diagnoses Radiculopathy, lumbar region Procedures PA PHYSICAL THERAPY EVALUATION LOW COMPLEX 20 MINS PA OFFICE/OUTPATIENT [facility] 60 MINUTES Eh Abdul MD [address] [place] [address] Phone: tel: fax: Purvi Evans, DACIA Referral IDStatusReasonStart DateExpiration DateVisits RequestedVisits [id number]/17/202512/31/20252012 [facility] Summary Purpose Family History No [...] section and content) DATE CREATED AUTHOR 03/21/2018 [facility] DATE CREATED AUTHOR AUTHOR'S ORGANIZ ATION 04/27/2024 [facility] DATE CREATED AUTHOR AUTHOR'S ORGANIZ ATION 04/28/2024 [facility] DATE CREATED AUTHOR AUTHOR'S ORGANIZ ATION 04/30/2024 [facility] DATE CREATED AUTHOR AUTHOR'S ORGANIZ ATION 05/18/2024 [facility] DATE CREATED AUTHOR AUTHOR'S ORGANIZ ATION 05/19/2024 [facility] DATE CREATED AUTHOR AUTHOR'S ORGANIZ ATION 09/11/2024 [facility] DATE CREATED AUTHOR AUTHOR'S ORGANIZ ATION 01/12/2025 [facility] DATE CREATED AUTHOR AUTHOR'S ORGANIZ ATION 01/14/2025 [facility] DATE CREATED AUTHOR AUTHOR'S ORGANIZ ATION 02/08/2025 [facility] DATE CREATED AUTHOR AUTHOR'S ORGANIZ ATION 02/17/2025 [facility] Patient Care team informatio n (unrecognized section and content) Team MemberRelationshipSpecialtyStart DateEnd Date Unallocated, Kristy Hough MD [address] [place] [address] PCP - GeneralFamily Medicine04/19/24 Kira Garrison MD [address] [place] [address] Referring PhysicianFami Medicine04/19/24Team MemberRelationshipSpecialtyStart DateEnd Date Unallocated, Kristy Hough MD [address] [place] [address] PCP - GeneralFamily Medicine04/19/24 Kira Garrison MD [address] [place] [address] Referring Physicianmi Medicine04/19/24Team MemberRelationshipSpecialtyStart DateEnd Date Unallocated, Kristy Hough MD [address] [place] [address] PCP - Generalmily Medicine04/19/24 Kira Garrison MD [address] [place] [address] Referring PhysicianFamily Medicine04/19/24 Sandra Castellanos DO [address] [phone] Referring PhysicianNeurology2Team MemberRelationshipSpecialtyStart DateEnd Date Unallocated, Kristy Hough MD [address] [place] [address] PCP - GeneralFamily Medicine04/19/24 Kira Garrison MD [address] [place], [place] [phone] Referring PhysicianFamily Medicine04/19/24 Sandra Castellanos DO [address] [phone] Referring PhysicianNeurology2Team MemberRelationshipSpecialtyStart DateEnd Date Unallocated, Kristy Hough MD [address] [place] [phone] PCP - GeneralFamily Medicine04/19/24 Kira Garrison MD [address] [place], [place] [phone] Referring PhysicianFamily Medicine04/19/24 Sandra Castellanos DO [address] [phone] Referring PhysicianNeurology2Team MemberRelationshipSpecialtyStart DateEnd Date Unallocated, Kristy Hough MD [address] [place] [address] PCP - GeneralFamily Medicine04/19/24 Kira Garrison MD [address] [place] [address] Referring PhysicianFamily Medicine04/19/24 Sandra Castellanos DO [address] [phone] Referring PhysicianNeurology2Team MemberRelationshipSpecialtyStart DateEnd Date Unallocated, Kristy Hough MD [address] [place] [address] PCP - GeneralFamily Medicine04/19/24 Kira Garrison MD [address] [place], [place] [phone] Referring PhysicianFamily Medicine04/19/24 Sandra Castellanos DO [address] [phone] Referring PhysicianNeurology2Team MemberRelationshipSpecialtyStart DateEnd Date Unallocated, Kristy Hough MD [address] [place] [address] PCP - GeneralFamily Medicine04/19/24 Kira Garrison MD [address] [place], [place] [phone] Referring PhysicianFamily Medicine04/19/24 Sandra Castellanos DO [address] [address] Referring PhysicianNeurology2Team MemberRelationshipSpecialtyStart DateEnd Date Unallocated, Kristy Hough MD [address] [place] [address] PCP - GeneralFamily Medicine04/19/24 Kira Garrison MD [address] [place] [address] Referring PhysicianFamily Medicine04/19/24 Sandra Castellanos DO [address] [address] Referring PhysicianNeurology2Team MemberRelationshipSpecialtyStart DateEnd Date Unallocated, Noms MD Gianluca [address] [place] [address] PCP - GeneralFamily Medicine04/19/24 Kira Garrison MD [address] [place] [address] Referring PhysicianFamily Medicine04/19/24 Sandra Castellanos DO [address] [phone] Referring PhysicianNeurology2Team MemberRelationshipSpecialtyStart DateEnd Date Unallocated, Noms MD Gianluca [address] [place] [address] PCP - GeneralFamily Medicine04/19/24 Kira Garrison MD [address] [place] [phone] Referring PhysicianFamily Medicine04/19/24 Sandra Castellanos DO [address] [address] Referring PhysicianNeurology2Team MemberRelationshipSpecialtyStart DateEnd Date Unallocated, Noms MD Gianluca [address] [place] [address] PCP - GeneralFamily Medicine04/19/24 Kira Garrison MD [address] [place] [address] Referring PhysicianFamily Medicine04/19/24 Sandra Castellanos DO [address] [phone] Referring PhysicianNeurolog05/17/24 Reason for Visit (unrecogniz ed section and content) ReasonCommentsMigraineSpecialtyDiagnoses / ProceduresReferred By ContactReferred To ContactNeurology Diagnoses Migraine, unspecified, not intractable, without status migrainosus ([facility]) Procedures PA OFFICE/OUTPATIENT [facility] 30 MINUTES Kira Garrison MD [address] [place] [address] Phone: tel: fax: Sandra Castellanos DO [address] [address] Phone: tel: fax: Referral IDStatusReasonStart DateExpiration DateVisits RequestedVisits [id number] Consult and Treat /[id number] DateCommentsre: PT01/15/2025 FOR RECORDS PERTAINING TO PATIENTS WHO ARE [...] BE BASED ON THE PRIMARY CLINICAL RECORDS. [facility] provides no warranty or guarantee of the accuracy or completeness of information in this document.
[2025-02-26 14:35] LABS: Free T3 2.32 pg/mL (2.18-3.98)
[2025-02-26 14:40] LABS: Thyroid Stimulating Hormone 8.714 uIU/mL (0.358-3.740)
== END 2025-02-26 12:25 | disposition home or self-care (01) ==
LOC: LAB 12:25
PROVIDERS: PCP Nurse Practitioner Family; Visit Provider Nurse Practitioner Family
DX: E03.9 Hypothyroidism, unspecified (principal)
CPT/HCPCS: 36415; 84436; 84443; 84481